=== PATIENT | female | born 1965 | race Caucasian/White ===

== ENCOUNTER 2019-12-09 07:57 | Outpatient (CLI) | payer OTHER, SELFPAY ==
[2019-12-09 08:52] LABS: Alanine Aminotransferase 34 U/L (4-35); Alkaline Phosphatase 70 U/L (38-126); Aspartate Amino Transferase 36 U/L (14-36); Bilirubin,Total 0.5 mg/dL (0.2-1.3); Cholesterol 152 mg/dL (0-200); HDL Direct 66 mg/dL; Triglycerides 77 mg/dL (<150)
[2019-12-09 09:02] LABS: LDL Cholesterol Direct 70 mg/dL
== END 2019-12-09 07:58 | disposition home or self-care (01) ==
PROVIDERS: PCP Physician Assistant; Visit Provider Physician Assistant
DX: E78.5 Hyperlipidemia, unspecified (principal)
CPT/HCPCS: 36415; 80061; 80076

== ENCOUNTER 2019-12-18 15:46 | Outpatient (CLI) | payer OTHER, SELFPAY ==
--- NOTE | ~2019-12-18 | MR_ITS ---
EXAMINATION: MR knee RT wo con DATE: 12/18/2019 17:04 INDICATION: Right knee pain. TECHNIQUE: Magnetic resonance imaging (MRI) of the right knee was performed without intravenous contr ast. Sequences included coronal PD-weighted FSE, coronal PD-weighted FS FSE, sagittal T2-weighted FS E, sagittal PD-weighted FS FSE and axial PD weighted fat saturated FSE. COMPARISON: None. FINDINGS: Evaluation mildly limited by motion artifact or blurring on multiple sequences. Medial compartment: Longitudinal horizontal tear extending to the superior articular surface of the posterior horn of the medial meniscus. Articular cartilage is normal. Lateral compartment: Lateral meniscus is normal. Small region of chondral swelling and partial-thickness fissuring at the posteromedial aspect of the lateral tibial plateau. Patellofemoral compartment: Condyle thickness is relatively preserved. There is partial thickness chondral fissuring with a few t iny foci of underlying subarticular edema along the inferior half of the medial and lateral patellar facets and at the caudal aspect of the medial trochlea. Ligaments and tendons: Anterior and posterior cruciate ligaments are normal. The medial collateral ligament and fibular petr ateral ligament complex are normal. The extensor mechanism is normal. The visualized medial and later al hamstring tendons as well as the iliotibial band are normal. Fluid: Small knee joint effusion with moderate synovitis at the suprapatellar pouch. No loose osteochondral bodies identified. Large Duke's cyst which measures 10.1 x 6.5 x 3.4 cm. Osseous/other: Bone alignment is normal. No fracture or other pathologic marrow replacing process. Intraosseous gang lion cyst at the posterior aspect of the lateral tibial plateau which appears to arise at the capsula r insertion with additional small multilobulated extraosseous ganglion cyst along the superficial mar gin of the capsule. IMPRESSION: 1. Horizontal longitudinal tear of the posterior horn of the medial meniscus. 2. Mild patellofemoral and lateral compartment osteoarthritis with regions of moderate grade chondrom alacia at the lateral tibial plateau and moderate to high-grade chondromalacia at the patellofemoral compartment. 3. Small knee joint effusion with moderate synovitis at the suprapatellar pouch. 4. Large Duke's cyst. Reviewed, dictated and finalized at location A. GER PMO IMPRESSION: 1. Horizontal longitudinal tear of the posterior horn of the medial meniscus. 2. Mild patellofemoral and lateral compartment osteoarthritis with regions of m oderate grade chondromalacia at the lateral tibial plateau and moderate to high -grade chondromalacia at the patellofemoral compartment. 3. Small knee joint effusion with moderate synovitis at the suprapatellar pouch . 4. Large Duke's cyst.
== END 2019-12-18 15:47 | disposition home or self-care (01) ==
PROVIDERS: PCP Physician Assistant; Visit Provider Orthopaedic Surgery
DX: M25.561 Pain in right knee (principal); S83.241A Other tear of medial meniscus, current injury, right knee, initial encounter; M17.11 Unilateral primary osteoarthritis, right knee; M94.261 Chondromalacia, right knee; M25.461 Effusion, right knee; M65.861 Other synovitis and tenosynovitis, right lower leg; M71.21 Synovial cyst of popliteal space [Baker], right knee
CPT/HCPCS: 73721

== ENCOUNTER 2020-02-21 14:22 | Outpatient (CLI) | payer OTHER, SELFPAY ==
--- NOTE | 2020-02-21 | ECHO_ITS ---
Patient Info Name: Fabiola Gibson Age: 54 years : 1965 Gender: Female Ht: 64 in Wt: 158 lbs BSA: 1.82 m2 HR: 58 bpm BP: 128 / 78 mmHg Heart Rhythm: Sinus Rhythm Technical Quality: Good Exam Date: 02/21/2020 3:17 PM Exam Location: [facility] Patient Status: Outpatient Admit Date: 02/21/2020 Staff Ordering Physician: Rowdy Marroquin MD Devil Tender: Fiorella Ayers RDCS Attending Provider: Rowdy Marroquin MD Referring Physician: Sebastien Martinez ; Exam Type: CA echo doppler color flow Study Info Indications - HTN LBBB Complete two-dimensional, color flow and Doppler transthoracic echocardiogram is performed. Summary 1. Left ventricular systolic function is normal, estimated at 60-65%. 2. There is no increased left ventricular wall thickness. 3. Left ventricular septal wall motion is abnormal with septal motion related to bundle branch block. 4. The left ventricular diastolic function is grade II diastolic dysfunction. 5. There is mild aortic valve sclerosis. 6. There is no aortic valve stenosis with a peak velocity of 188 cm/s, mean gradient of 9 mmHg, and aortic valve area of 2.2 cm2. 7. There is trace aortic valve regurgitation. 8. 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 Clinical correlation advised. Left Ventricle Left ventricular chamber dimension is normal. Left ventricular systolic function is normal, estimated at 60-65%. There is no increased left ventricular wall thickness. Left ventricular septal wall motion is abnormal with septal motion related to bundle branch block. The left ventricular diastolic function is grade II diastolic dysfunction. Right Ventricle Right ventricular chamber dimension is normal. Right ventricular systolic function is normal. Left Atria Left atrial chamber dimension is mildly enlarged. Right Atria Right atrial chamber dimension is mildly enlarged. Aortic Valve The aortic valve is trileaflet. There is mild aortic valve sclerosis. There is no aortic valve stenosis with a peak velocity of 188 cm/s, mean gradient of 9 mmHg, and aortic valve area of 2.2 cm2. There is trace aortic valve regurgitation. 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 Clinical correlation advised. Pulmonic Valve The pulmonic valve is not well visualized. There is trace pulmonic regurgitation. Mitral Valve The mitral valve has thickened leaflets. There is mild mitral valve regurgitation. Tricuspid Valve The tricuspid valve leaflets are normal. There is mild tricuspid valve regurgitation. Pericardium/Pleural The pericardium appears normal. There is no pericardial effusion. Inferior Vena Cava Normal inferior vena cava with >50% collapse upon inspiration consistent with normal right atrial pressure, 5 mmHg. Aorta The aortic root size at the sinus of Valsalva is normal. Left Ventricular Outflow Tract Name Value Normal LVOT 2D LVOT Diameter 2.0 cm
[2020-02-21 15:26] LABS: Basophils Percent Auto 0.7 % (0.2-1.2); Eosinophils Absolute Auto 0.2 K/mm3 (0-0.3); Eosinophils Percent Auto 3.2 % (0-4.4); Hemoglobin 11.9 g/dL (12.0-15.0); Immature Granulocyte Absolute 0.03 K/mm3 (0.00-0.031); Immature Granulocyte Percent A 0.6 % (0-0.5); Lymphocytes Absolute Auto 2.07 K/mm3 (0.9-3.2); Lymphocytes Percent Auto 38.5 % (18.3-44.2); Mean Corpuscular HGB Conc 33.1 g/dl (32-36); Mean Corpuscular Hemoglobin 29.6 pg (26-34); Mean Corpuscular Volume 89.6 fl (80-100); Mean Platelet Volume 9.6 fl (7.4-10.4); Monocytes Absolute Auto 0.3 K/mm3 (0.1-0.6); Monocytes Percent Auto 5.8 % (2.6-8.5); Neutrophils Absolute Auto 2.8 K/mm3 (1.3-6.7); Neutrophils Percent Auto 51.2 % (45.5-73.1); Platelet Count Result 289 k/mm3 (150-375); Red Blood Count 4.02 M/mm3 (4.2-5.4); Red Cell Distribution Width 12.1 % (11.5-14.5); White Blood Count 5.4 K/mm3 (4.5-10.0)
[2020-02-24 11:25] LABS: Gastrin <15 pg/mL (<=100)
[2020-02-27 15:37] LABS: Chromogranin A 49 ng/mL (25-140)
== END 2020-02-21 14:23 | disposition home or self-care (01) ==
PROVIDERS: Internal Medicine Medical Oncology; Visit Provider Internal Medicine Cardiovascular Disease
DX: I10 Essential (primary) hypertension (principal); I44.7 Left bundle-branch block, unspecified; R93.1 Abnormal findings on diagnostic imaging of heart and coronary circulation
CPT/HCPCS: 36415; 82941; 85025; 86316; 93306

== ENCOUNTER 2020-03-06 15:02 | Outpatient (CLI) | payer OTHER, SELFPAY ==
--- NOTE | ~2020-03-06 | CT_ITS ---
EXAMINATION: CT chest w con DATE: 03/06/2020 15:55 INDICATION: Malignant carcinoid tumor of the stomach TECHNIQUE: Transaxial computed tomographic images of the chest were obtained after the administration of 75 cc of Omnipaque 350 intravenous contrast. The dose-length product (DLP) was 126.13 mGy-cm. Ite rative reconstruction was used. COMPARISON: 01/05/2019 FINDINGS: There are stable right lung nodules measuring up to 4 mm. There is mild dependent atelectas is. No focal airspace opacity is identified. There is no pleural effusion or pneumothorax. No patholo gically enlarged thoracic lymph nodes are identified. The heart size is normal. There is mild thoraci c spondylosis. There are changes of interval antrectomy in the stomach. IMPRESSION: 1. No evidence of metastatic disease in the chest. Reviewed, dictated and finalized at location A.
[2020-03-06 15:48] LABS: Estimated Glomerular Filt Rate > 60
== END 2020-03-06 15:03 | disposition home or self-care (01) ==
PROVIDERS: Visit Provider Physician Assistant
DX: R91.8 Other nonspecific abnormal finding of lung field (principal)
CPT/HCPCS: 36415; 71260; Q9967

== ENCOUNTER 2020-03-18 16:14 | Outpatient (CLI) | payer OTHER, SELFPAY ==
[2020-03-18 16:58] LABS: Basophils Percent Auto 0.8 % (0.2-1.2); Eosinophils Absolute Auto 0.3 K/mm3 (0-0.3); Hematocrit 35.8 % (37.0-47.0); Immature Granulocyte Absolute 0.01 K/mm3 (0.00-0.031); Immature Granulocyte Percent A 0.3 % (0-0.5); Lymphocytes Absolute Auto 1.13 K/mm3 (0.9-3.2); Lymphocytes Percent Auto 30.6 % (18.3-44.2); Mean Corpuscular HGB Conc 33.5 g/dl (32-36); Mean Corpuscular Hemoglobin 29.9 pg (26-34); Mean Corpuscular Volume 89.1 fl (80-100); Mean Platelet Volume 9.6 fl (7.4-10.4); Monocytes Absolute Auto 0.3 K/mm3 (0.1-0.6); Monocytes Percent Auto 8.7 % (2.6-8.5); Neutrophils Absolute Auto 1.9 K/mm3 (1.3-6.7); Neutrophils Percent Auto 52.6 % (45.5-73.1); Platelet Count Result 236 k/mm3 (150-375); Red Blood Count 4.02 M/mm3 (4.2-5.4); White Blood Count 3.7 K/mm3 (4.5-10.0)
[2020-03-18 17:01] LABS: Add Urine Microscopic? NO; Appearance Urine Clear (Clear); Bilirubin Urine Negative (Negative); Blood Urine Negative (Negative); Color Urine Yellow (Yellow); Glucose Urine UA Negative (Negative); Ketones Urine Negative (Negative); Leukocyte Esterase Ur Negative LEU/UL (Negative); Nitrate Urine Negative (Negative); Protein Urine Negative (Negative); Specific Grav Ur 1.026 (1.001-1.035); Urobilinogen Urine Negative mg/dL (<2.0)
[2020-03-18 17:11] LABS: Alanine Aminotransferase 33 U/L (4-35); Albumin Level 4.1 g/dL (3.5-5.1); Alkaline Phosphatase 79 U/L (38-126); Aspartate Amino Transferase 37 U/L (14-36); Bilirubin,Total 0.2 mg/dL (0.2-1.3); Blood Urea Nitrogen 16 mg/dL (7-17); CRP < 0.5 mg/dL (<1.0); Calcium 8.9 mg/dL (8.4-10.2); Carbon Dioxide 26 mmol/L (22-30); Chloride 103 mmol/L (98-107); Estimated Glomerular Filt Rate > 60; Glucose 88 mg/dL (65-105); Sodium 136 mmol/L (137-145)
[2020-03-18 17:22] LABS: Erythrocyte Sedimentation Rate 20 mm/hr (0-20)
== END 2020-03-18 16:15 | disposition home or self-care (01) ==
PROVIDERS: Visit Provider Internal Medicine
DX: M15.4 Erosive (osteo)arthritis (principal); E55.9 Vitamin D deficiency, unspecified; M06.00 Rheumatoid arthritis without rheumatoid factor, unspecified site; D3A.092 Benign carcinoid tumor of the stomach; M25.40 Effusion, unspecified joint; Z51.81 Encounter for therapeutic drug level monitoring
CPT/HCPCS: 36415; 80053; 81003; 85025; 85652; 86140

== ENCOUNTER 2020-04-16 00:06 | Outpatient (CLI) | payer OTHER, SELFPAY ==
[2020-04-16 19:45] LABS: SARS-CoV-2 RNA PCR Negative
== END 2020-04-16 00:07 | disposition home or self-care (01) ==
LOC: ANHCOVIDDT 00:06
PROVIDERS: Visit Provider Internal Medicine Gastroenterology
DX: Z01.818 Encounter for other preprocedural examination (principal); Z11.59 Encounter for screening for other viral diseases; Z08 Encounter for follow-up examination after completed treatment for malignant neoplasm
CPT/HCPCS: 87635; C9803; U0003

== ENCOUNTER 2020-04-18 02:22 | Day surgery (SDC) | payer OTHER, SELFPAY ==
[2020-04-11 12:05] VITALS: BMI 27.2
[2020-04-18 08:30] VITALS: BP 109/63; PULSE 51; RESP 18; TEMP 36.1; O2SAT 100
--- NOTE | 2020-04-18 08:51 | PM.IMHP ---
H&P: HPI History of Present Illness Chief complaint: Stomach Tumor Narrative: Reason for visit EGD. This very pleasant lady's here at the request of her primary an Oncology. Impression: Gastric carcinoid status post gastrectomy. Pancreatic lesion. Per past medical history. Recommendation: EGD. History: Very pleasant lady's here for surveillance. The patient has a history of gastric carcinoids. She is status post resection. A pancreatic lesion was noted. She receiving injections to shrink the pancreatic tumor. The GI review systems is negative. Physical examination: General: very pleasant patient in no acute distress. HEENT: Head was normocephalic sclerae is clear mouth without masses neck was supple. Heart: Rate rhythm regular without S3 or S4. Lungs: CTA. Abdomen: Soft with no guarding or rigidity. Bowel sounds were active. Neurologic: Cranial nerves 2 through 12 intact. No focal defects. No clonus. Musculoskeletal system: Revealed no joint tenderness or swelling no muscle atrophy. Extremities: Reveal no significant edema. Skin: Warm and dry with normal turgor. Mental status: intact. Patient is alert and oriented. Review of Systems Review of Systems: All systems reviewed & are unremarkable except as noted in HPI and below PMFSH Past Medical History Medical History (Updated 04/18/20 @ 08:49 by Guru Winters DO) Anemia Anxiety and depression Carcinoid tumor of stomach HLD (hyperlipidemia) HTN (hypertension) Synovial cyst of popliteal space [Duke], right knee Surgical History Surgical History (Updated 04/18/20 @ 08:51 by Guru Winters DO) H/O colonoscopy History of esophagogastroduodenoscopy (EGD) History of esophagogastroduodenoscopy (EGD) History of gastric surgery Social History Social History (Updated 12/13/19 @ 10:41 by Debby Maynard MA) Years smoked: 20 Smoking status: Former smoker Tobacco type: cigarettes Alcohol intake: current Drinks per week: 3 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 [employer] Gender identity (if verbalized by the patient): Female Meds Home Medications and Allergies Home Medications Medication Instructions Recorded Confirmed Type pravastatin 40 mg tablet 40 mg PO DAILY 12/11/19 04/18/20 History bupropion HCl 150 mg tablet,12 hr 150 mg PO DAILY 12/13/19 04/18/20 History sustained-release escitalopram oxalate 10 mg tablet 10 mg PO DAILY 12/13/19 04/18/20 History hydroxychloroquine 200 mg tablet 200 mg PO DAILY 12/13/19 04/18/20 History cholecalciferol (vitamin D3) 2,000 unit PO DAILY 04/11/20 04/18/20 History [Vitamin D3] omeprazole 20 mg PO DAILY 04/11/20 04/18/20 History valsartan-hydrochlorothiazide 160 mg PO DAILY 04/11/20 04/18/20 History Allergies Allergy/AdvReac Type Severity Reaction Status Date / Time No Known Allergies Allergy Mild Verified 04/18/20 08:29 Vital Signs Vital Signs - 24 hr 04/18/20 08:30 Temperature 36.1 C L Pulse Rate 51 L Respiratory Rate 18 Blood Pressure 109/63 Pulse Oximetry 100
[2020-04-18] MEDS: LACTATED RINGERS 1,000 ML 150 ML IV CONT (08:52)
--- NOTE | 2020-04-18 08:52 | P.PNAN_ITS ---
Anes - Initial Pre Proc Eval Procedure: Operation Date: 04/18/20 09:00 Proposed Procedures p Esophagogastroduodenoscopy - Guru Winters DO Date/Time: 04/18/20 08:52 Surgeon: Guru Winters DO Pre Op Diagnosis: Stomach Tumor Patient Data Age: 54 Gender: F Height: 1.63 m Weight: 71.6 kg Last Vital Signs Temp 36.1 C L 04/18/20 08:30 Pulse 51 L 04/18/20 08:30 Resp 18 04/18/20 08:30 BP 109/63 04/18/20 08:30 Pulse Ox 100 04/18/20 08:30 Allergies Allergy/AdvReac Type Severity Reaction Status Date / Time No Known Allergies Allergy Mild Verified 04/18/20 08:29 Home Medications Medication Instructions Recorded Confirmed Type pravastatin 40 mg tablet 40 mg PO DAILY 12/11/19 04/18/20 History bupropion HCl 150 mg tablet,12 hr 150 mg PO DAILY 12/13/19 04/18/20 History sustained-release escitalopram oxalate 10 mg tablet 10 mg PO DAILY 12/13/19 04/18/20 History hydroxychloroquine 200 mg tablet 200 mg PO DAILY 12/13/19 04/18/20 History cholecalciferol (vitamin D3) 2,000 unit PO DAILY 04/11/20 04/18/20 History [Vitamin D3] omeprazole 20 mg PO DAILY 04/11/20 04/18/20 History valsartan-hydrochlorothiazide 160 mg PO DAILY 04/11/20 04/18/20 History Patient hx anesthesia problems: none Family hx anesthesia problems: none [facility] Past Medical History Medical History (Updated 04/18/20 @ 08:49 by Guru Winters DO) Anemia Anxiety and depression Carcinoid tumor of stomach HLD (hyperlipidemia) HTN (hypertension) Synovial cyst of popliteal space [Duke], right knee Surgical History Surgical History (Updated 04/18/20 @ 08:51 by Guru Winters DO) H/O colonoscopy History of esophagogastroduodenoscopy (EGD) History of esophagogastroduodenoscopy (EGD) History of gastric surgery Social History Social History (Updated 12/13/19 @ 10:41 by Debby Maynard MA) Years smoked: 20 Smoking status: Former smoker Tobacco type: cigarettes Alcohol intake: current Drinks per week: 3 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 Questions were solicited and answers provided to the satisfaction of the patient/family/POA.
[2020-04-18 10:03] VITALS: BP 95/55; PULSE 52; RESP 16; O2SAT 100
[2020-04-18 10:13] VITALS: BP 113/67; PULSE 50; RESP 18; O2SAT 100
[2020-04-18 10:23] VITALS: BP 112/66; PULSE 50; RESP 18; O2SAT 100
== END 2020-04-18 10:48 | disposition home or self-care (01) ==
PROVIDERS: PCP Physician Assistant; Visit Provider Internal Medicine Gastroenterology
PROC: 0DJ08ZZ Inspection of Upper Intestinal Tract, Via Natural or Artificial Opening Endoscopic (ICD-10-PCS; CPT 43235; principal; 2020-04-18 09:00)
DX: Z08 Encounter for follow-up examination after completed treatment for malignant neoplasm (principal); K31.89 Other diseases of stomach and duodenum; Z90.3 Acquired absence of stomach [part of]; Z98.0 Intestinal bypass and anastomosis status; Z85.020 Personal history of malignant carcinoid tumor of stomach; K86.9 Disease of pancreas, unspecified; I10 Essential (primary) hypertension; E78.5 Hyperlipidemia, unspecified; F41.8 Other specified anxiety disorders; Z87.891 Personal history of nicotine dependence
CPT/HCPCS: 43239; 87081; 88305; J2704; J7120

== ENCOUNTER 2020-06-11 10:21 | Outpatient (CLI) | payer OTHER, SELFPAY ==
[2020-06-11 11:31] LABS: Thyroid Stimulating Hormone 0.747 uIU/mL (0.465-4.680)
== END 2020-06-11 10:22 | disposition home or self-care (01) ==
LOC: ANHLAB 10:22
PROVIDERS: PCP Physician Assistant; Visit Provider Physician Assistant
DX: R53.83 Other fatigue (principal)
CPT/HCPCS: 36415; 84443

== ENCOUNTER 2020-09-14 01:08 | Outpatient (CLI) | payer OTHER, MEDICAID, SELFPAY ==
[2020-09-14 18:31] LABS: SARS-CoV-2 RNA PCR Positive
== END 2020-09-14 01:09 | disposition home or self-care (01) ==
LOC: ANHCOVIDDT 01:08
PROVIDERS: PCP Physician Assistant; Visit Provider Internal Medicine Gastroenterology
DX: U07.1 COVID-19 (principal)
CPT/HCPCS: 87635; C9803; U0003

== ENCOUNTER 2020-09-28 00:52 | Outpatient (CLI) | payer OTHER, MEDICAID, SELFPAY ==
[2020-09-28 20:15] LABS: SARS-CoV-2 RNA PCR Negative
== END 2020-09-28 00:53 | disposition home or self-care (01) ==
LOC: ANHCOVIDDT 00:53
PROVIDERS: PCP Physician Assistant; Visit Provider Internal Medicine Gastroenterology
DX: Z01.818 Encounter for other preprocedural examination (principal); Z20.828 Contact with and (suspected) exposure to other viral communicable diseases
CPT/HCPCS: 87635; C9803; U0003

== ENCOUNTER 2020-10-02 00:17 | Day surgery (SDC) | payer OTHER, MEDICAID, SELFPAY ==
[2020-09-09 14:00] VITALS: BMI 25.7
[2020-10-02 11:48] VITALS: BP 125/70; PULSE 57; RESP 16; TEMP 36.2; O2SAT 100
[2020-10-02] MEDS: LACTATED RINGERS 1,000 ML 150 ML IV CONT (11:51)
--- NOTE | 2020-10-02 12:04 | WPDANESEPPF ---
Anes - Initial Pre Proc Eval Procedure: Operation Date: 10/02/20 13:00 Proposed Procedures p Esophagogastroduodenoscopy - Guru Winters DO Date/Time: 10/02/20 12:04 Surgeon: Guru Winters DO Pre Op Diagnosis: CA tumor of stomach Patient Data Age: 55 Gender: F Height: 5 ft 4 in Weight: 64.9 kg Last Vital Signs Temp 97.2 F L 10/02/20 11:48 Pulse 57 L 10/02/20 11:48 Resp 16 10/02/20 11:48 BP 125/70 10/02/20 11:48 Pulse Ox 100 10/02/20 11:48 Allergies Allergy/AdvReac Type Severity Reaction Status Date / Time No Known Allergies Allergy Mild Verified 10/02/20 11:46 Home Medications Medication Instructions Recorded Confirmed Type pravastatin 40 mg tablet 40 mg PO DAILY 12/11/19 09/09/20 History bupropion HCl 150 mg tablet,12 hr 150 mg PO DAILY 12/13/19 09/09/20 History sustained-release escitalopram oxalate 10 mg tablet 10 mg PO DAILY 12/13/19 09/09/20 History hydroxychloroquine 200 mg tablet 200 mg PO DAILY 12/13/19 09/09/20 History cholecalciferol (vitamin D3) 2,000 unit PO DAILY 04/11/20 09/09/20 History [Vitamin D3] omeprazole 20 mg PO DAILY 04/11/20 09/27/20 History valsartan-hydrochlorothiazide 1 tablet PO DAILY 09/09/20 09/09/20 History Patient hx anesthesia problems: none Family hx anesthesia problems: none [facility] Past Medical History Medical History (Updated 04/18/20 @ 08:49 by Guru Winters DO) Anemia Anxiety and depression Carcinoid tumor of stomach HLD (hyperlipidemia) HTN (hypertension) Synovial cyst of popliteal space [Duke], right knee Surgical History Surgical History (Updated 04/18/20 @ 08:51 by Guru Winters DO) H/O colonoscopy History of esophagogastroduodenoscopy (EGD) History of esophagogastroduodenoscopy (EGD) History of gastric surgery Family History Family History Father Hypertension Family history of heart disease in male family member before age 55 Mother Hypertension Family history of diabetes mellitus in first degree relative Family history of heart disease in male family member before age 55 Sibling Family history of heart disease in male family member before age 55 Social History Social History (Updated 12/13/19 @ 10:41 by Debby Maynard MA) Years smoked: 20 Smoking status: Former smoker Tobacco type: cigarettes Alcohol intake: current Drinks per week: 3 Substance use: never Substance use type: does not use 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 Gender identity (if verbalized by the patient): Female Spiritual care concerns: No Anes - Eval Final PreProcedure Day of Procedure 10/02/20 12:04 Patient weight: normal Heart: regular rate and rhythm Lungs: clear to auscultation Airway: Mallampati scale class III Neurological: alert and oriented Last oral intake: >/= 8 hours ASA classification: III Emergent: no Anesthetic plan: proceed Anesthesia type and monitoring: general GIVS and standard monitoring Informed Consent: The patient's anesthetic plan and its attendant risks and benefits were discussed with the patient/family/POA. Questions were solicited and answers provided to the satisfaction of the patient/family/POA.
--- NOTE | 2020-10-02 12:43 | WPDHPUPDATE1 ---
History and Physical Update Update Date/Time: 10/02/20 12:43 History and Physical has been reviewed, including an updated exam of the patient. There are NO changes in the patient's condition. Risks, benefits, and alternatives have been discussed and questions answered. Patient agrees to proceed with procedure.
--- NOTE | 2020-10-02 12:43 | PM.IMHP ---
H&P: HPI History of Present Illness Date/Time: 10/02/20 12:43 Cheif Complaint: See below. Narrative: reason for visit is EGD. This very pleasant lady is here at the request the primary physician. The patient examined and chart was reviewed. Impression: He with very pleasant lady with gastric carcinoid. 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 She is here for endoscopic evaluation for surveillance. The patient does have some episodes of periodic diarrhea. This may be secondary to medication. I am not convinced is due to any carcinoid syndrome. Do not have a copy of any recent CT the abdomen pelvis. No documented liver metastasis is noted. HTN. HLD. Depression. Recommendation: Will proceed with EGD. Will consider repeating colonoscopy after the holidays pending the results of the EGD. History: This very pleasant lady's well known to myself. She has a history of gastric carcinoid. She also has undergone partial gastrectomy. Patient is here for surveillance. She has had a documented carcinoid tumor of the pancreas. She does report occasional diarrhea. Diarrhea may or may not have been related to her medication. GI review systems otherwise unremarkable. Physical examination: General: very pleasant patient in no acute distress. HEENT: Head was normocephalic sclerae is clear mouth without masses neck was supple. Heart: Rate rhythm regular without S3 or S4. Lungs: CTA. Abdomen: Soft with no guarding or rigidity. Bowel sounds were active. Neurologic: Cranial nerves 2 through 12 intact. No focal defects. No clonus. Musculoskeletal system: Revealed no joint tenderness or swelling no muscle atrophy. Extremities: Reveal no significant edema. Skin: Warm and dry with normal turgor. Mental status: intact. Patient is alert and oriented. Review of Systems Review of Systems: All systems reviewed & are unremarkable except as noted in HPI and below PMFSH Past Medical History Medical History (Updated 04/18/20 @ 08:49 by Guru Winters DO) Anemia Anxiety and depression Carcinoid tumor of stomach HLD (hyperlipidemia) HTN (hypertension) Synovial cyst of popliteal space [Duke], right knee Surgical History Surgical History (Updated 04/18/20 @ 08:51 by Guru Winters DO) H/O colonoscopy History of esophagogastroduodenoscopy (EGD) History of esophagogastroduodenoscopy (EGD) History of gastric surgery Family History Family History Father Hypertension Family history of heart disease in male family member before age 55 Mother Hypertension Family history of diabetes mellitus in first degree relative Family history of heart disease in male family member before age 55 Sibling Family history of heart disease in male family member before age 55 Social History Social History (Updated 12/13/19 @ 10:41 by Debby Maynard MA) Years smoked: 20 Smoking status: Former smoker Tobacco type: cigarettes Alcohol intake: current Drinks per week: 3 Substance use: never Substance use type: does not use 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 [employer] Gender identity (if verbalized by the patient): Female Spiritual care concerns: No Meds Home Medications and Allergies Home Medications Medication Instructions Recorded Confirmed Type pravastatin 40 mg tablet 40 mg PO DAILY 12/11/19 09/09/20 History bupropion HCl 150 mg tablet,12 hr 150 mg PO DAILY 12/13/19 09/09/20 History sustained-release escitalopram oxalate 10 mg tablet 10 mg PO DAILY 12/13/19 09/09/20 History hydroxychloroquine 200 mg tablet 200 mg PO DAILY 12/13/19 09/09/20 History cholecalciferol (vitamin D3) 2,000 unit PO DAILY 04/11/20 09/09/20 History [Vitamin D3] omeprazole 20 mg PO DAILY 04/11/20 09/27/20 History valsartan-hydrochlorothiazide 1 tablet PO DAILY 09/09/20 09/09/20 History Allergies
[2020-10-02 13:48] VITALS: BP 99/63; PULSE 47; RESP 17; O2SAT 99
[2020-10-02 13:58] VITALS: BP 110/66; PULSE 45; RESP 17; O2SAT 99
[2020-10-02 14:08] VITALS: BP 116/71; PULSE 51; RESP 14; O2SAT 98
== END 2020-10-02 14:26 | disposition home or self-care (01) ==
PROVIDERS: PCP Physician Assistant; Visit Provider Internal Medicine Gastroenterology
PROC: 0DJ08ZZ Inspection of Upper Intestinal Tract, Via Natural or Artificial Opening Endoscopic (ICD-10-PCS; CPT 43235; principal; 2020-10-02 13:00)
DX: Z85.020 Personal history of malignant carcinoid tumor of stomach (principal); K29.50 Unspecified chronic gastritis without bleeding; Z98.0 Intestinal bypass and anastomosis status; Z90.3 Acquired absence of stomach [part of]; D64.9 Anemia, unspecified; F41.8 Other specified anxiety disorders; E78.5 Hyperlipidemia, unspecified; I10 Essential (primary) hypertension; M71.21 Synovial cyst of popliteal space [Baker], right knee; Z87.891 Personal history of nicotine dependence
CPT/HCPCS: 43239; 87081; 88305; 88342; J2704; J7120

== ENCOUNTER 2020-11-13 11:33 | Outpatient (CLI) | payer OTHER, MEDICAID, SELFPAY ==
--- NOTE | ~2020-11-13 | MM_ITS ---
EXAMINATION: MM screening esdras BI w eugene HISTORY: Screening TECHNIQUE: Craniocaudal and mediolateral oblique 3-D tomosynthesis images were obtained and synthetic 2-D images were generated. CAD analysis was submitted and interpreted. COMPARISON: No prior mammogram is available for comparison at this institution. BREAST PARENCHYMAL COMPOSITION: Comparison to multiple prior studies sequentially, with oldest review ed study dated 12/11/2013. FINDINGS: There is no evidence of suspicious mass, calcification, or architectural distortion to sugg est malignancy in either breast. There has been no suspicious interval change. IMPRESSION: 1. No mammographic evidence of malignancy. 2. Recommend routine screening mammography in one year. BI-RADS Category 1: Negative Reviewed, dictated and finalized at location A. [employer] TESTER
== END 2020-11-13 11:34 | disposition home or self-care (01) ==
LOC: ANHIMG 11:36
PROVIDERS: Family Provider Internal Medicine; PCP Physician Assistant; Visit Provider Obstetrics & Gynecology
DX: Z12.31 Encounter for screening mammogram for malignant neoplasm of breast (principal)
CPT/HCPCS: 77063; 77067

== ENCOUNTER → 2020-12-06 02:16 | Outpatient (CLI) | payer OTHER, MEDICAID, SELFPAY ==
[2020-12-06 21:58] LABS: SARS-CoV-2 RNA PCR Negative
== END ==
PROVIDERS: PCP Physician Assistant; Visit Provider Internal Medicine Gastroenterology
DX: Z01.812 Encounter for preprocedural laboratory examination (principal); Z20.822 Contact with and (suspected) exposure to COVID-19
CPT/HCPCS: C9803; U0003; U0005

== ENCOUNTER 2020-12-09 00:29 | Day surgery (SDC) | payer OTHER, MEDICAID, SELFPAY ==
[2020-11-08 14:07] VITALS: BMI 24.5
--- NOTE | 2020-12-06 09:37 | P.PNAN_ITS ---
Anes - Initial Pre Proc Eval Procedure: Operation Date: 12/09/20 11:30 Proposed Procedures p Screening Colonoscopy - Guru Winters DO Date/Time: 12/06/20 09:37 Surgeon: Guru Winters DO Pre Op Diagnosis: Neoplasm Screening Patient Data Age: 55 Gender: F Height: 1.63 m Weight: 64.9 kg Allergies Allergy/AdvReac Type Severity Reaction Status Date / Time No Known Allergies Allergy Mild Verified 12/09/20 10:08 Home Medications Medication Instructions Recorded Confirmed Type pravastatin 40 mg tablet 40 mg PO DAILY 12/11/19 11/08/20 History bupropion HCl 150 mg tablet,12 hr 150 mg PO DAILY 12/13/19 11/08/20 History sustained-release escitalopram oxalate 10 mg tablet 10 mg PO DAILY 12/13/19 11/08/20 History hydroxychloroquine 200 mg tablet 200 mg PO DAILY 12/13/19 11/08/20 History cholecalciferol (vitamin D3) 2,000 unit PO DAILY 04/11/20 11/08/20 History [Vitamin D3] omeprazole 20 mg PO DAILY 04/11/20 11/08/20 History valsartan-hydrochlorothiazide 1 tablet PO DAILY 09/09/20 11/08/20 History Patient hx anesthesia problems: none Family hx anesthesia problems: none PMFSH Past Medical History Medical History (Updated 04/18/20 @ 08:49 by Guru Winters DO) Anemia Anxiety and depression Carcinoid tumor of stomach HLD (hyperlipidemia) HTN (hypertension) Synovial cyst of popliteal space [Duke], right knee Surgical History Surgical History (Updated 12/06/20 @ 09:37 by Vlad Townsend DO) H/O colonoscopy History of esophagogastroduodenoscopy (EGD) History of esophagogastroduodenoscopy (EGD) History of gastric surgery History of tubal ligation Family History Family History Father Hypertension Family history of heart disease in male family member before age 55 Mother Hypertension Family history of diabetes mellitus in first degree relative Family history of heart disease in male family member before age 55 Sibling Family history of heart disease in male family member before age 55 Social History Social History (Updated 12/13/19 @ 10:41 by Debby Maynard MA) Years smoked: 20 Smoking status: Former smoker Tobacco type: cigarettes Alcohol intake: current Drinks per week: 3 Substance use: never Substance use type: does not use Living arrangements: with family 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[employer] Gender identity (if verbalized by the patient): Female Spiritual care concerns: No Anes - Eval Final PreProcedure Day of Procedure 12/06/20 09:37 Patient weight: normal Heart: regular rate and rhythm Lungs: clear to auscultation and normal air movement Airway: Mallampati scale class III Neurological: alert and oriented Last oral intake: >/= 8 hours ASA classification: III Emergent: no Anesthetic plan: proceed Anesthesia type and monitoring: general GIVS and standard monitoring Informed Consent: The patient's anesthetic plan and its attendant risks and benefits were discussed with the patient/family/POA. Questions were solicited and answers provided to the satisfaction of the patient/family/POA.
[2020-12-09 10:09] VITALS: BP 123/80; PULSE 63; RESP 16; TEMP 37.1; O2SAT 99
[2020-12-09] MEDS: LACTATED RINGERS 1,000 ML 150 ML IV CONT (10:23)
--- NOTE | 2020-12-09 11:37 | WPDGICN ---
GI Consult Note Consult date/time: 12/09/20 11:37 HPI: Reason consultation is colonoscopy. This very pleasant lady seen in consultation request the primary physician. Impression: Screening colonoscopy. 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 HLD. HTN. Anemia. Recommendation: Colonoscopy. History: This very pleasant lady has a history of gastric carcinoid. Status post gastrectomy. She is here for screening colonoscopy. She does have a tendency to a recurrent bouts of diarrhea. Hematochezia, melena acholic stools tonight. Physical examination: General: very pleasant patient in no acute distress. HEENT: Head was normocephalic sclerae is clear mouth without masses neck was supple. Heart: Rate rhythm regular without S3 or S4. Lungs: CTA. Abdomen: Soft with no guarding or rigidity. Bowel sounds were active. Neurologic: Cranial nerves 2 through 12 intact. No focal defects. No clonus. Musculoskeletal system: Revealed no joint tenderness or swelling no muscle atrophy. Extremities: Reveal no significant edema. Skin: Warm and dry with normal turgor. Mental status: intact. Patient is alert and oriented. Review of Systems Review of Systems: All systems reviewed & are unremarkable except as noted in HPI and below PMFSH Past Medical History Medical History (Updated 04/18/20 @ 08:49 by Guru Winters DO) Anemia Anxiety and depression Carcinoid tumor of stomach HLD (hyperlipidemia) HTN (hypertension) Synovial cyst of popliteal space [[facility]], right knee Surgical History Surgical History (Updated 12/06/20 @ 09:37 by Vlad Townsend DO) H/O colonoscopy History of esophagogastroduodenoscopy (EGD) History of esophagogastroduodenoscopy (EGD) History of gastric surgery History of tubal ligation Family History Family History Father Hypertension Family history of heart disease in male family member before age 55 Mother Hypertension Family history of diabetes mellitus in first degree relative Family history of heart disease in male family member before age 55 Sibling Family history of heart disease in male family member before age 55 Social History Social History (Updated 12/13/19 @ 10:41 by Debby Maynard MA) Years smoked: 20 Smoking status: Former smoker Tobacco type: cigarettes Alcohol intake: current Drinks per week: 3 Substance use: never Substance use type: does not use Living arrangements: with family 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 [employer] Gender identity (if verbalized by the patient): Female Spiritual care concerns: No Meds Home Medications and Allergies Home Medications Medication Instructions Recorded Confirmed Type pravastatin 40 mg tablet 40 mg PO DAILY 12/11/19 11/08/20 History bupropion HCl 150 mg tablet,12 hr 150 mg PO DAILY 12/13/19 11/08/20 History sustained-release escitalopram oxalate 10 mg tablet 10 mg PO DAILY 12/13/19 11/08/20 History hydroxychloroquine 200 mg tablet 200 mg PO DAILY 12/13/19 11/08/20 History cholecalciferol (vitamin D3) 2,000 unit PO DAILY 04/11/20 11/08/20 History [Vitamin D3] omeprazole 20 mg PO DAILY 04/11/20 11/08/20 History valsartan-hydrochlorothiazide 1 tablet PO DAILY 09/09/20 11/08/20 History Allergies Allergy/AdvReac Type Severity Reaction Status Date / Time No Known Allergies Allergy Mild Verified 12/09/20 10:08 Vital Signs Vital Signs - 24 hr 12/09/20 10:09 Temperature 37.1 C Pulse Rate 63 Respiratory Rate 16 Blood Pressure 123/80 Pulse Oximetry 99
[2020-12-09 11:58] VITALS: BP 81/39; PULSE 51; RESP 17; O2SAT 98
[2020-12-09 12:08] VITALS: BP 85/50; PULSE 49; RESP 21; O2SAT 99
[2020-12-09 12:18] VITALS: BP 95/58; PULSE 46; RESP 14; O2SAT 99
== END 2020-12-09 12:28 | disposition home or self-care (01) ==
PROVIDERS: PCP Physician Assistant; Visit Provider Internal Medicine Gastroenterology
PROC: 0DJD8ZZ Inspection of Lower Intestinal Tract, Via Natural or Artificial Opening Endoscopic (ICD-10-PCS; CPT 45378; principal; 2020-12-09 11:30)
DX: Z12.11 Encounter for screening for malignant neoplasm of colon (principal); D12.2 Benign neoplasm of ascending colon; I10 Essential (primary) hypertension; E78.5 Hyperlipidemia, unspecified; M71.21 Synovial cyst of popliteal space [Baker], right knee; F32.9 Major depressive disorder, single episode, unspecified; F41.9 Anxiety disorder, unspecified; Z85.020 Personal history of malignant carcinoid tumor of stomach; Z87.891 Personal history of nicotine dependence
CPT/HCPCS: 45385; 45380; 88305; J2704; J7120

== ENCOUNTER 2021-02-19 12:29 | Emergency (ER) | payer OTHER, MEDICAID, SELFPAY ==
[2021-02-19] VITALS (7 sets, daily range): BP systolic 108–138; BP diastolic 63–78; PULSE 54–72; RESP 10–18; TEMP 36.8; O2SAT 97–99
--- NOTE | ~2021-02-19 | XR_ITS ---
EXAMINATION: XR chest 1V EXAM DATE: 02/19/2021 13:06 INDICATION: dizziness TECHNIQUE: Portable AP frontal chest x-ray was obtained. Comparison is made to prior examination from 09/08/2017. FINDINGS: The lungs are clear. There are no pleural effusions. The cardiomediastinal silhouette is within normal limits. There is no pneumothorax suspected. Mild thoracolumbar dextrocurvature. IMPRESSION: No acute cardiopulmonary findings. Reviewed, dictated and finalized at location B.
--- NOTE | ~2021-02-19 | CT_ITS ---
EXAMINATION: CT brain wo con EXAM DATE: 02/19/2021 13:01 INDICATION: Dizziness. Kidney cancer. TECHNIQUE: Spiral CT of the head was performed without contrast. Axial, coronal and sagittal images were reviewed. The dose-length product (DLP) for this examination was 605.33 mGy-cm. The exposure w as tailored according to patient size, and iterative reconstruction (ASIR) was used as additional dos e reduction technique. There is no prior study for comparison. FINDINGS: There is no acute intraparenchymal hemorrhage. No evidence of intraparenchymal brain mass lesion. No evidence of acute infarction. There is no mass effect or midline shift. The ventricles are normal in size. There are no extra-axial collections. There are no acute calvarial fractures. T he orbits are unremarkable. Soft tissue is unremarkable. The visualized sinuses and mastoid air ralf ls are well aerated. IMPRESSION: 1. Unremarkable head CT examination. Reviewed, dictated and finalized at location B.
--- NOTE | 2021-02-19 12:39 | ECG_ITS ---
Measurements Intervals [place] Rate: 57 P: 46 MO: 156 QRS: 27 QRSD: 159 T: 72 QT: 475 QTc: 463 Interpretive Statements SINUS BRADYCARDIA LEFT BUNDLE BRANCH BLOCK BASELINE WANDER- III, AVL, AVF ABNORMAL ECG Electronically Signed On 02-19-2021 13:31:09 CDT by Jordan Plunkett D.O.
[2021-02-19 12:40] LABS: Glucose Point of Care 93 (65-105)
--- NOTE | 2021-02-19 12:46 | PC.NURSE ---
EDP Rodrigo at bedside.
--- NOTE | 2021-02-19 12:50 | ED.DIZZY ---
HPI - Dizziness General Chief Complaint: Syncope Stated Complaint: syncope Time Seen by Provider: 02/19/21 12:37 Source: RN notes reviewed History of Present Illness HPI Narrative: Patient presents to emergency department from home for nursing follow-up so. Patient states she was out today when she began to feel lightheaded with blurred vision. She states that she began to sweat she she is feeling this before and tried eating a piece of chocolate with minimal relief however the patient stating she feels better now since eating [employer]'s on the way here patient denies any fevers or chills chest pain shortness of breath or any other symptoms patient is currently being treated for pancreatic tumor with Sandostatin and is states she had a similar episode at her first injection and just had her second injection recently denies any other symptoms at this time Related Data Home Medications Medication Instructions Recorded Confirmed pravastatin 40 mg tablet 40 mg PO DAILY 12/11/19 11/08/20 bupropion HCl 150 mg tablet,12 hr 150 mg PO DAILY 12/13/19 11/08/20 sustained-release escitalopram oxalate 10 mg tablet 10 mg PO DAILY 12/13/19 11/08/20 hydroxychloroquine 200 mg tablet 200 mg PO DAILY 12/13/19 11/08/20 cholecalciferol (vitamin D3) 2,000 unit PO DAILY 04/11/20 11/08/20 [Vitamin D3] omeprazole 20 mg PO DAILY 04/11/20 11/08/20 valsartan-hydrochlorothiazide 1 tablet PO DAILY 09/09/20 11/08/20 Allergies Allergy/AdvReac Type Severity Reaction Status Date / Time No Known Allergies Allergy Mild Verified 12/09/20 10:08 Review of Systems Review of Systems: Narrative: Gen.: Denies fevers or chills Eyes: Denies eye pain or visual change ENT: Denies congestion Respiratory: Denies shortness of breath or cough CV: Reports near syncope denies chest pain GI: Denies abdominal pain nausea, emesis or diarrhea Musculoskeletal: Denies back pain or muscle pain Neuro: Denies numbness, tingling, weakness or focal weakness Skin: Denies rash Except as documented, all other systems reviewed and negative PMFSH Past Medical History Medical History Adenomatous colon polyp Anemia Anxiety and depression Carcinoid tumor of stomach HLD (hyperlipidemia) HTN (hypertension) Synovial cyst of popliteal space [[facility]], right knee Surgical History Surgical History (Updated 12/06/20 @ 09:37 by Vlad Townsend DO) H/O colonoscopy History of esophagogastroduodenoscopy (EGD) History of esophagogastroduodenoscopy (EGD) History of gastric surgery History of tubal ligation Family History Family History Father Hypertension Family history of heart disease in male family member before age 55 Mother Hypertension Family history of diabetes mellitus in first degree relative Family history of heart disease in male family member before age 55 Sibling Family history of heart disease in male family member before age 55 Social History Social History Years smoked: 20 Smoking status: Former smoker Tobacco type: cigarettes Alcohol intake: current Drinks per week: 3 Substance use: never Substance use type: does not use 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 CARDIOVASCULAR: Regular rate and rhythm without murmurs rubs or gallops. ABDOMINAL: Soft, nontender, nondistended, no rebound or guarding MUSCULOSKELETAl: Moves all extremities. No clubbing, cyanosis or edema. NEURO: Awake and alert x 4. Following comma
[2021-02-19 12:52] LABS: Basophils Absolute Auto 0.1 K/mm3 (0.0-0.1); Eosinophils Absolute Auto 0.2 K/mm3 (0-0.3); Hematocrit 35.5 % (37.0-47.0); Hemoglobin 11.9 g/dL (12.0-15.0); Immature Granulocyte Absolute 0.02 K/mm3 (0.00-0.031); Immature Granulocyte Percent A 0.4 % (0-0.5); Lymphocytes Absolute Auto 1.43 K/mm3 (0.9-3.2); Lymphocytes Percent Auto 28.5 % (18.3-44.2); Mean Corpuscular HGB Conc 33.5 g/dl (32-36); Mean Corpuscular Hemoglobin 29.8 pg (26-34); Mean Platelet Volume 9.8 fl (7.4-10.4); Monocytes Absolute Auto 0.3 K/mm3 (0.1-0.6); Monocytes Percent Auto 6.2 % (2.6-8.5); Neutrophils Absolute Auto 3.1 K/mm3 (1.3-6.7); Neutrophils Percent Auto 60.9 % (45.5-73.1); Platelet Count Result 229 k/mm3 (150-375); Red Blood Count 3.99 M/mm3 (4.2-5.4); Red Cell Distribution Width 11.9 % (11.5-14.5)
[2021-02-19 13:03] LABS: Anion Gap 8 mmol/L (8-16); Blood Urea Nitrogen 17 mg/dL (7-17); Calcium 9.6 mg/dL (8.4-10.2); Carbon Dioxide 31 mmol/L (22-30); Chloride 104 mmol/L (98-107); Estimated CRCL calculation 68 ml/min; Estimated Glomerular Filt Rate > 60; Glucose 107 mg/dL (65-105); Potassium 3.3 mmol/L (3.4-5.0); Sodium 143 mmol/L (137-145)
[2021-02-19] MEDS: SODIUM CHLORIDE 0.9% IV 1,000 ML 999 ML IV CONT (13:12)
[2021-02-19 13:41] LABS: Alanine Aminotransferase 59 U/L (4-35); Albumin Level 4.7 g/dL (3.5-5.1); Alkaline Phosphatase 64 U/L (38-126); Aspartate Amino Transferase 55 U/L (14-36); Bilirubin,Total 0.4 mg/dL (0.2-1.3); Lipase 173 U/L (23-300)
[2021-02-19 13:50] LABS: Troponin I < 0.012 ng/mL (0.000-0.034)
[2021-02-19 13:52] LABS: Add Urine Microscopic? YES; Appearance Urine Cloudy (Clear); Bilirubin Urine Negative (Negative); Blood Urine Negative (Negative); Color Urine Yellow (Yellow); Glucose Urine UA Negative (Negative); Ketones Urine Negative (Negative); Leukocyte Esterase Ur Trace LEU/UL (Negative); Mucus Urine Rare /lpf; Nitrate Urine Negative (Negative); Protein Urine Negative (Negative); RBC Urine 0-2 /hpf (0-2); Specific Grav Ur 1.015 (1.001-1.035); Squamous Epithelial Cell Urine Many /hpf (Few); Urobilinogen Urine Negative mg/dL (<2.0); WBC Urine 0-3 /hpf
[2021-02-19] MEDS: POTASSIUM CHLORIDE 20 MEQ TABLET PO (14:49)
--- NOTE | 2021-02-19 14:51 | PC.NURSE ---
pt reports that she got injection for 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 and NOT kidney
[2021-02-19 15:49] LABS: Glucose Point of Care 156 (65-105)
[2021-02-19 16:01] LABS: Troponin I < 0.012 ng/mL (0.000-0.034)
== END 2021-02-19 16:39 | disposition home or self-care (01) ==
PROVIDERS: Emergency Provider Emergency Medicine; PCP Physician Assistant
DX: R42 Dizziness and giddiness (principal); D49.0 Neoplasm of unspecified behavior of digestive system; E78.5 Hyperlipidemia, unspecified; I10 Essential (primary) hypertension; F41.9 Anxiety disorder, unspecified; F32.9 Major depressive disorder, single episode, unspecified; Z85.020 Personal history of malignant carcinoid tumor of stomach; Z87.891 Personal history of nicotine dependence; R00.1 Bradycardia, unspecified; I44.7 Left bundle-branch block, unspecified
CPT/HCPCS: 36415; 70450; 71045; 80048; 80076; 81001; 81025; 82948; 83690; 84484; 85025; 93005; 96360; 96361; 99284; A9270; J7030

== ENCOUNTER 2021-07-11 14:27 | Outpatient (CLI) | payer OTHER, MEDICAID, SELFPAY ==
[2021-07-11 15:01] LABS: Basophils Percent Auto 0.7 % (0.2-1.2); Eosinophils Absolute Auto 0.2 K/mm3 (0-0.3); Hematocrit 35.1 % (37.0-47.0); Hemoglobin 11.8 g/dL (12.0-15.0); Immature Granulocyte Absolute 0.02 K/mm3 (0.00-0.031); Immature Granulocyte Percent A 0.3 % (0-0.5); Lymphocytes Absolute Auto 1.55 K/mm3 (0.9-3.2); Lymphocytes Percent Auto 26.1 % (18.3-44.2); Mean Corpuscular HGB Conc 33.6 g/dl (32-36); Mean Corpuscular Hemoglobin 30.1 pg (26-34); Mean Corpuscular Volume 89.5 fl (80-100); Mean Platelet Volume 9.6 fl (7.4-10.4); Monocytes Absolute Auto 0.3 K/mm3 (0.1-0.6); Monocytes Percent Auto 5.7 % (2.6-8.5); Neutrophils Absolute Auto 3.8 K/mm3 (1.3-6.7); Neutrophils Percent Auto 64.2 % (45.5-73.1); Platelet Count Result 278 k/mm3 (150-375); Red Blood Count 3.92 M/mm3 (4.2-5.4); Red Cell Distribution Width 11.6 % (11.5-14.5); White Blood Count 5.9 K/mm3 (4.5-10.0)
[2021-07-11 15:04] LABS: Add Urine Microscopic? YES; Appearance Urine Clear (Clear); Bilirubin Urine Negative (Negative); Blood Urine Negative (Negative); Color Urine Yellow (Yellow); Glucose Urine UA Negative (Negative); Ketones Urine Negative (Negative); Leukocyte Esterase Ur Trace LEU/UL (Negative); Mucus Urine Rare /lpf; Nitrate Urine Negative (Negative); Protein Urine Negative (Negative); RBC Urine 0-2 /hpf (0-2); Specific Grav Ur 1.021 (1.001-1.035); Squamous Epithelial Cell Urine Moderate /hpf (Few)
[2021-07-11 15:11] LABS: Alanine Aminotransferase 21 U/L (4-35); Albumin Level 4.4 g/dL (3.5-5.1); Alkaline Phosphatase 67 U/L (38-126); Anion Gap 9 mmol/L (8-16); Aspartate Amino Transferase 32 U/L (14-36); Bilirubin,Total 0.4 mg/dL (0.2-1.3); Blood Urea Nitrogen 19 mg/dL (7-17); CRP < 0.5 mg/dL (<1.0); Calcium 9.1 mg/dL (8.4-10.2); Carbon Dioxide 28 mmol/L (22-30); Chloride 104 mmol/L (98-107); Estimated Glomerular Filt Rate > 60; Glucose 89 mg/dL (65-110); Potassium 4.1 mmol/L (3.4-5.0); Sodium 141 mmol/L (137-145)
[2021-07-11 15:32] LABS: Erythrocyte Sedimentation Rate 18 mm/hr (0-20)
== END 2021-07-11 14:28 | disposition home or self-care (01) ==
PROVIDERS: PCP Physician Assistant; Visit Provider Internal Medicine Rheumatology
DX: M15.4 Erosive (osteo)arthritis (principal); Z51.81 Encounter for therapeutic drug level monitoring; Z79.899 Other long term (current) drug therapy
CPT/HCPCS: 36415; 80053; 81001; 85025; 85652; 86140; 87077; 87086; 87088; 87186

== ENCOUNTER 2021-11-26 15:31 | Outpatient (CLI) | payer OTHER, MEDICAID, SELFPAY ==
--- NOTE | ~2021-11-26 | MM_ITS ---
EXAMINATION: MM screening [facility] BI w eugene HISTORY: Screening mammogram TECHNIQUE: Craniocaudal and mediolateral oblique 3-D tomosynthesis images were obtained and synthetic 2-D images were generated. CAD analysis was submitted and interpreted. COMPARISON: 11/13/2020, 09/21/2019, 08/31/2018 BREAST PARENCHYMAL COMPOSITION: There are scattered areas of fibroglandular density. FINDINGS: There is no evidence of suspicious mass, calcification, or architectural distortion to sugg est malignancy in either breast. There has been no suspicious interval change. IMPRESSION: 1. No mammographic evidence of malignancy. 2. Recommend routine screening mammography in one year. BI-RADS Category 1: Negative Reviewed, dictated and finalized at location A. ER HELPER
== END 2021-11-26 15:32 | disposition home or self-care (01) ==
LOC: ANHIMG 15:33
PROVIDERS: PCP Physician Assistant; Visit Provider Obstetrics & Gynecology
DX: Z12.31 Encounter for screening mammogram for malignant neoplasm of breast (principal)
CPT/HCPCS: 77063; 77067

== ENCOUNTER 2022-10-29 08:03 | Outpatient (CLI) | payer OTHER, MEDICAID, SELFPAY ==
[2022-10-29 08:33] LABS: Alanine Aminotransferase 28 U/L (6-35); Albumin Level 4.4 g/dL (3.5-5.1); Alkaline Phosphatase 66 U/L (38-126); Anion Gap 4 mmol/L (8-16); Aspartate Amino Transferase 34 U/L (14-36); Bilirubin,Total 0.4 mg/dL (0.2-1.3); Blood Urea Nitrogen 18 mg/dL (7-17); Calcium 9.1 mg/dL (8.4-10.2); Carbon Dioxide 30 mmol/L (22-30); Chloride 103 mmol/L (98-107); Cholesterol 186 mg/dL (0-200); Estimated Glomerular Filt Rate > 60; Glucose 119 mg/dL (65-110); HDL Direct 66 mg/dL; Potassium 4.2 mmol/L (3.4-5.0); Sodium 137 mmol/L (137-145); Triglycerides 72 mg/dL (<150)
[2022-10-29 08:44] LABS: LDL Cholesterol Direct 81 mg/dL
== END 2022-10-29 08:04 | disposition home or self-care (01) ==
LOC: ANHLAB 08:07
PROVIDERS: PCP Physician Assistant; Visit Provider Physician Assistant
DX: E78.2 Mixed hyperlipidemia (principal); R53.83 Other fatigue
CPT/HCPCS: 36415; 80053; 80061; 84443

== ENCOUNTER 2024-08-18 10:14 | Outpatient (CLI) | payer OTHER, SELFPAY ==
--- NOTE | ~2024-08-18 | MM_ITS ---
EXAMINATION: MM screening [facility] BI w eugene HISTORY: Screening mammogram TECHNIQUE: Craniocaudal and mediolateral oblique 3-D tomosynthesis images were obtained and synthetic 2-D images were generated. CAD analysis was submitted and interpreted. COMPARISON: 11/26/2021, 11/13/2020 BREAST PARENCHYMAL COMPOSITION:Not Dense. There are scattered areas of fibroglandular density. FINDINGS: No suspicious mass, calcification, or architectural distortion are identified in either deana ast to suggest malignancy. There has been no suspicious interval change. IMPRESSION: No mammographic evidence of malignancy. Recommend routine screening mammography in one year. BI-RADS Category 1: Negative Reviewed, dictated and finalized at location .
== END 2024-08-18 10:15 | disposition home or self-care (01) ==
LOC: ANHIMG 10:15
PROVIDERS: PCP Physician Assistant; Visit Provider Obstetrics & Gynecology
DX: Z12.31 Encounter for screening mammogram for malignant neoplasm of breast (principal)
CPT/HCPCS: 77063; 77067

== ENCOUNTER 2024-09-30 10:09 | Outpatient (CLI) | payer OTHER, SELFPAY ==
[2024-09-30 11:08] LABS: Cholesterol 173 mg/dL (0-200); HDL Direct 67 mg/dL; Triglycerides 55 mg/dL (<150)
[2024-09-30 11:19] LABS: LDL Cholesterol Direct 79 mg/dL
--- OUTSIDE RECORDS SUMMARY | 2024-10-04 02:51 | XMS_ITS | Encounter Summary ---
Author Organization [facility] Address [address] [place] [address] Care Team Providers Care Diplomatic Officer Name Role Phone Elizabeth Borrego PA-C Primary Care Provider [phone] Reason for Visit * Reason Onset Date Comments MEDICATION REFILL 01/21/2022 Encounter Details Date Type Department Care Team (Late st Contact Info) Description 01/21/2022 Refill [facility] [place] [id number] Yolanda Muniz MD No info available MEDICATION REFILL Social History Tobacco Use Types Packs/Day Years Used Date Smoking Tobacco: Former Cigarettes Q uit: 02/25/2000 Smokeless Tobacco: Never Alcohol Use Standard Drinks/Week Comments Yes 3 (1 standard drink = 0.6 oz pur e alcohol) PHQ-2 Answer Date Recorded PHQ2 TOTAL SCORE 0 11/26/2021 Sex and Gender Information Value Date Recorded Sex Assigned at Not on file Gender Identity Not on file Sexual Orientation Not on file documented as of this encounter Miscellaneous Notes * Telephone Encounter - Emilia Gordon - 01/21/2022 1:06 PM CDT Refill Request Fabiola Gibson ELIESER: 11/26/2021Aug due: visit date not found AUG scheduled: Visit date not found LRF: 08/27/2021 Qty Disp: 180 # of refills: 1 Allergies: No Known Allergies Pended Medication Order: Requested Prescriptions Pending Prescriptions Disp Refills ??? hydroxychloroquine (PLAQUENIL) 200 MG tablet 180 tablet 1 Sig: Take 1.5 (one and one-half) tablets by mouth once daily documented in this encounter Plan of Treatment Not on file documented as of this encounter Visit Diagnoses Diagnosis Erosive osteoarthritis Osteoarthrosis involving, or with mention of more than one site, but not specified as generalized, site unspecified Vitamin D deficiency Encounter for therapeutic drug monitoring documented in this encounter Care Teams Diplomatic Officer Relationship Specialty Start Date End Date Elizabeth Borrego PA-C PCP - General 01/27/21 documented as of this encounter
--- OUTSIDE RECORDS SUMMARY | 2024-10-04 02:51 | XMS_ITS | Encounter Summary ---
Author Organization [facility] Address [address] [place] [address] Care Team Providers Care Refrigeration Unit Repairer Name Role Phone Barbra Villalba Primary Care Pr ovider Encounter Details Date Type Department Care Team (Late st Contact Info) Description 12/22/2018 Orders Only [facility] [address] [place] [address] Paulina Dawson DO [address] [place] [id number] Erosive osteoarthritis; Vitamin D deficiency; Encounter for therapeutic drug monitoring Social History Tobacco Use Types Packs/Day Years Used Date Smoking Tobacco: Former Cigarettes Q uit: 02/25/2000 Smokeless Tobacco: Never Alcohol Use Standard Drinks/Week Comments Yes 3 (1 standard drink = 0.6 oz pur e alcohol) Sex and Gender Information Value Date Recorded Sex Assigned at Not on file Gender Identity Not on file Sexual Orientation Not on file documented as of this encounter Progress Notes * Paulina Dawson DO - 12/22/2018 12:14 PM CST Issue with her mail order pharmacy. Needs 30 day supply of HCQ sent to [facility]. OL TREASURER documented in this encounter Plan of Treatment Not on file documented as of this encounter Visit Diagnoses Diagnosis Erosive osteoarthritis Osteoarthrosis involving, or with mention of more than one site, but not specified as generalized, site unspecified Vitamin D deficiency Encounter for therapeutic drug monitoring documented in this encounter Care Teams Refrigeration Unit Repairer Relationship Specialty Start Date End Date Barbra Villalba PA [address] [place] [id number] PCP - General 01/05/18 01/03/19 documented as of this encounter
--- OUTSIDE RECORDS SUMMARY | 2024-10-04 02:51 | XMS_ITS | Encounter Summary ---
Author Organization [facility] Address [address] [place] [address] Care Team Providers Care Software Developer Mid Level Name Role Phone Barbra Villalba Primary Care Pr ovider Reason for Visit * Reason Comments Follow-up rheumatoid arthritis Encounter Details Date Type Department Care Team (Late st Contact Info) Description 03/08/2019 12:30 PM CDT Office Visit [facility] [address] [place] [address] Paulina Dawson, DO [address] [place] [address] Arthralgia, unspecified joint (Primary Dx); Erosive osteoarthritis; Vitamin D deficiency; Encounter for [...] on file documented as of this encounter Last Filed Vital Signs Vital Sign Reading Time Taken Comments Blood Pressure 104/72 03/08/2019 1:15 PM CDT Pulse 56 03/08/2019 1:15 PM CDT Temperature 36.2 ??C (97.1 ??F) 03/08/2019 1:15 PM CD T Respiratory Rate - - Oxygen Saturation - - Inhaled Oxygen Concentration - - Weight 69.9 kg (154 lb) 03/08/2019 1:15 PM CDT Height - - Body Mass Index 26.85 07/20/2018 8:36 AM CDT documented in this encounter Patient Instructions * Patient Instructions* Paulina Dawson DO - 03/08/2019 2:57 PM CDT 1. Decrease hydroxychloroquine to 300 mg daily (1.5 tab daily) OR 1 tab on odd days, 2 tabs on evendays. 2. Continue Vitamin D supplementation. 3. Call with questions. If you need to change or cancel your Rheumatology appointment - At the [facility] at [address], [address], call [phone] If you need a refill request, have your pharmacy fax a request to [phone] If you need to leave a message for Dr. Dawson, you can send her an electronic message via [employer] voicemail at [phone]. Her office FAX number is [phone]. For after hours emergency only, you can call the [facility] production machine operator at [phone] and ask for the Research Environmental Scientist production lapping machine operator to be paged. documented in this encounter Progress Notes * Swetha Ballesteros MD - 03/08/2019 2:21 PM CDT Rheumatology Attending Cosign Note I saw Fabiola Gibson, a 53 year old female today for follow up visit in the Rheumatology Clinic with Dr Dawson for the following diagnoses: 1. Arthralgia, unspecified joint 2. Erosive osteoarthritis 3. Vitamin D deficiency 4. Encounter for therapeutic drug monitoring We have discussed this patient and I have interviewed and examined the patient myself. I agree withher note, exam, assessment and plan. She also lost her insurance for a time and was off her Hydroxychloroquine (Plaquenil) and noted worsening sx - Since her last visit - called about 1 mo after bridget that she woke up on [place] with severe pain - was given 5 d of prednisone - and got better. 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 03/08/2019 Swetha Ballesteros M.D. * Paulina Dawson DO - 03/08/2019 1:38 PM CDT [facility] Division of Adult & Pediatric Rheumatology Follow up Visit 07/20/2018 Diagnosis/Problem(s): Erosive osteoarthritis Vitamin D deficiency Encounter for therapeutic drug monitoring Interval History: Fabiola Gibson is a White/ female with a previous diagnosis of seronegative RA who presents for follow up visit. Patient was last seen 01/05/2018. Hands and ankles. [facility] in [place], [place]. Since she was last seen, she temporarily lost her insurance and stopped her HCQ. She did not noticeincreased joint pains immediately but the joint pains became severe off the medication. She noted that most joints bothered her with morning stiffness. It was also worse with periods of immobility. She denies swelling. She has now been back on the HCQ and is symptom free. Her joint pain is completely resolved on the HCQ. She denies any joint swelling, joint pain. She has also lost about 30-35 pounds with Weight Watcher's that she really believes has helped her joint symptoms as well. She usually walks as her exercise. She is up to date on her eye exam. She has to go back for the second part of testing in August 2018. She follows at [facility] in [place], [place]. Review of Systems: General: -fatigue, -fever, -wt loss/gain, daily functioning not limited HEENT: -dry eyes, -dry mouth, -eye redness, -eye pain, -oral/nasal ulcers CV: -chest pain Resp: -cough, -SOB GI: -abd pain, -constipation, -nausea, -vomiting, -diarrhea, -blood/mucus : -urine changes, -dysuria, -hematuria MSK: -arthralgia, -myalgia, -swelling, -erythema, -warmth, -AM stiffness, -back pain Skin: -rash, -lesions, -hair loss, -nail changes, -Raynaud, -photosensitivity, -acrocyanosis Neuro: -BRAND, -vision changes, -muscle weakness, -paresthesias Psych: -depression, -anxiety ROS otherwise negative Past Medical/Surgical History: Past Medical History: Diagnosis Date ??? 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 HX C SECTION CLASSIC 1989 and 1991 ??? HX TUBAL LIGATION 2004 Family History: family history includes Arthritis - Osteo in her sister; Arthritis - Rheumatoid in her sister; Coronary Artery Disease in her brother; Diabetes in her sister; Emphysema in her father; Heart Disease in her mother; Osteoporosis in her mother. There is no history of Lupus, Inflammatory Bowel Disease, Thyroid Disease, or Psoriasis. Social History: Social History Social History ??? Marital status: Spouse name: N/A ??? Number of children: N/A ??? Years of education: N/A Occupational History ??? Not on file. Social History Main Topics ??? Smoking status: Former Smoker Quit date: 02/25/2000 ??? Smokeless tobacco: Never Used ??? Alcohol use 1.8 oz/week ??? Drug use: No ??? Sexual activity: Not on file Other Topics Concern ??? Not on file Social History Narrative Current Medications: Current Outpatient Prescriptions Medication Sig Dispense Refill ??? buPROPion XL 24hr (WELLBUTRIN-XL) 150 MG tablet Take 150 mg by mouth once daily ??? Ergocalciferol (VITAMIN D2) 2000 units Take 1 tablet by mouth once daily ??? escitalopram (LEXAPRO) 10 MG tablet Take 10 mg by mouth once daily ??? hydroxychloroquine (PLAQUENIL) 200 MG tablet Take 1 tablet by mouth 2 times daily 60 tablet 0 ??? losartan (COZAAR) 50 MG tablet Take 50 mg by mouth DAILY. ??? metoprolol succinate XL 24hr (TOPROL XL) 100 MG tablet Take 100 mg by mouth DAILY. (Patient taking differently: Take 50 mg by mouth DAILY ) ??? pravastatin (PRAVACHOL) 40 MG tablet Take 40 mg by mouth DAILY. No current facility-administered medications for this visit. Allergies: FABIOLA Stevenson No Known Allergies. Physical Exam: BP 104/72 (BP SITE: RIGHT ARM, BP POSITION: SITTING, BP CUFF SIZE: 11) Pulse 56 Temp 97.1 ??F (36.2??C) (Oral) Wt 154 lb (69.9 kg) BMI 26.85 kg/m2 General: no distress, cooperative Skin: no rash or lesions, no color change or livedo reticularis, normal temperature & turgor HEENT: conjunctivae and sclerae clear, PERRLA, EOMI, external ear normal, no oral or nasal ulceration, mucus membranes moist Neck: supple, normal ROM, no LAD Back: symmetric, no curvature, normal ROM, no paraspinal tenderness, no SI tenderness Chest/Lungs: lungs CTAB, no wheezes, rhonchi, or rales Heart: RRR, no murmur, no rub or gallop Abdomen; soft, non-tender, non-distended, no HSM Neurologic: grossly intact, alert, muscle strength 5/5 Musculoskeletal Exam: HNs with CMC squaring bilaterally Crepitus appreciated bilaterally in knees S0T0 No active synovitis No enthesitis Labs: 01/28/18 CMP Cr 0.90, LFT unremarkable CBC: Wbc 5.0, Hgb 11.7 (MCV 84.8), Plts 297k UA: 1+ prot, trace bacteria CRP <0.5 ESR 22 TSH 0.803, fT4 0.78 Vitamin D 26.9 Folic Acid 18.5 Vit B12 < 159.0 FLP: Total 147, TG 73, LDL 63, HDL 50 HgbA1c 5.6% 07/2017 CMP Cr 0.80 LFT unremarkable CBC Wbc 3.2, Hgb 12.3, Plts 317k UA +protein, Wbc's, epi cells ESR 8 CRP 0.6 ?? 02/2017 CMP Cr 0.65, LFT unremarkable CBC: Wbc 3.6, Hgb 11.0 (MCV 82.5), Plts 285k UA nitrite, wbc, many bacteria, positive epi cells; no symptoms Cx E. Coli ESR 14, CRP <0.01 Vit D level 20 TSH 1.77 C3 119, C4 20, CH50 55 EDWIN negative Anti Chromatin negative Anti dsDNA negative Anti Scl-70 negative Anti Sm/HARNESS FITTER negative Anti Sm negative Anti Centromere negative Anti SSA / SSB negative Anti Histone negative RF 8, Anti CCP <16 ?? 10/2016 RPR negative Hep A IgM non-reactive Hep B sAg non-reactive Hep B cAb non-reactive Hep C Ab non-reactive HIV Ag/Ab non-reactive ? 05/2016 CMP: Cr 0.69, Gluc 105, LFT unremarkable Anti CCP <16 ? 06/2015 CMP: Cr 0.61, LFT unremarkable CBC: Wbc 4.2, Hgb 11.7 (MCV 87), Plts 291k TSH 1.4 ??fT4 0.8 A1c 5.6 Diagnostics: XR hand and feet 02/2017: Impression: 1. Normal joint spaces of both feet. Small bilateral heel spurs. 2. Normal joint spaces of both hands. There is a small subchondral cyst or erosion within the left small finger metacarpal head. ?? Eye exam 03/18/17: Normal OCT without toxicity Assessment: Fabiola Gibson is a 52 y.o. female with erosive osteoarthritis and vitamin D deficiency. She has improved significantly on HCQ monotherapy and vitamin D replacement. Last Vitamin D was still low in mid-20s. She has not required PRN NSAIDs. She is up to date on her eye exam and will have it sent to us. Plan: 1. Continue current regimen of ?? HCQ 200 mg BID. ?? Aleve 220 mg BID. 2. We recommend continued exercise, daily stretching. 3. Patient will have eye exam faxed to us. Needs regular eye exams every 6 months to 1 year. 4. Labs/Imaging Ordered: As below 5. Return to clinic in 6 months. ?? This patient was seen and the plan of care was discussed with attending physician Dr. Ballesteros. Paulina Dawson, Rheumatology Fellow [facility] Pager: [phone] No orders of the defined types were placed in this encounter. * Paulina Dawson DO - 03/08/2019 1:36 PM CDT [facility] Division of Adult & Pediatric Rheumatology Follow up Visit 07/20/2018 Diagnosis/Problem(s): ICD-10-CM 1. Arthralgia, unspecified joint M25.50 2. Erosive osteoarthritis M15.4 3. Vitamin D deficiency E55.9 4. Encounter for therapeutic drug monitoring Z51.81 Interval History: Fabiola Gibson is a White/ female with a previous diagnosis of seronegative RA/erosive OA who presents for follow up visit. Patient was last seen July 2018. She has been maintained on hydroxychloroquine 200 mg BID. She recently had her eye exam completed at [facility] in [place], [place]. Around [place], she developed increased joint pain and swelling of her hands, feet, and ankles. This lasted for about 1 month and then she called when it persisted. We did a short trial of prednisone and her symptoms dramatically improved. Today, she remains joint pain free and is not currently taking any over the counter NSAIDs. She was found to have a carcinoid tumor on endoscopy. She has undergone work up and is actively under surveillance with Heme/Onc. As of now, there is no need (per her report) for chemotherapy or surgery for which she is very thankful. Review of Systems: General: -fatigue, -fever, -wt loss/gain, daily functioning not limited HEENT: -dry eyes, -dry mouth, -eye redness, -eye pain, -oral/nasal ulcers CV: -chest pain Resp: -cough, -SOB GI: -abd pain, -constipation, -nausea, -vomiting, -diarrhea, -blood/mucus : -urine changes, -dysuria, -hematuria MSK: -arthralgia, -myalgia, -swelling, -erythema, -warmth, -AM stiffness, -back pain Skin: -rash, -lesions, -hair loss, -nail changes, -Raynaud, -photosensitivity, -acrocyanosis Neuro: -BRAND, -vision changes, -muscle weakness, -paresthesias Psych: -depression, -anxiety ROS otherwise negative Past Medical/Surgical History: Past Medical History: Diagnosis Date ??? 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 HX C SECTION CLASSIC 1989 and 1991 ??? HX TUBAL LIGATION 2004 Family History: family history includes Arthritis - Osteo in her sister; Arthritis - Rheumatoid in her sister; Coronary Artery Disease in her brother; Diabetes in her sister; Emphysema in her father; Heart Disease in her mother; Osteoporosis in her mother. There is no history of Lupus, Inflammatory Bowel Disease, Thyroid Disease, or Psoriasis. Social History: Social History Social History ??? Marital status: Spouse name: N/A ??? Number of children: N/A ??? Years of education: N/A Occupational History ??? Not on file. Social History Main Topics ??? Smoking status: Former Smoker Quit date: 02/25/2000 ??? Smokeless tobacco: Never Used ??? Alcohol use 1.8 oz/week ??? Drug use: No ??? Sexual activity: Not on file Other Topics Concern ??? Not on file Social History Narrative Current Medications: Current Outpatient Prescriptions Medication Sig Dispense Refill ??? buPROPion XL 24hr (WELLBUTRIN-XL) 150 MG tablet Take 150 mg by mouth once daily ??? Ergocalciferol (VITAMIN D2) 2000 units Take 1 tablet by mouth once daily ??? escitalopram (LEXAPRO) 10 MG tablet Take 10 mg by mouth once daily ??? hydroxychloroquine (PLAQUENIL) 200 MG tablet Take 1.5 tablets by mouth once daily 135 tablet 2 ??? losartan (COZAAR) 50 MG tablet Take 50 mg by mouth DAILY. ??? metoprolol succinate XL 24hr (TOPROL XL) 100 MG tablet Take 100 mg by mouth DAILY. (Patient taking differently: Take 50 mg by mouth DAILY ) ??? pravastatin (PRAVACHOL) 40 MG tablet Take 40 mg by mouth DAILY. No current facility-administered medications for this visit. Allergies: FABIOLA Stevenson No Known Allergies. Physical Exam: BP 104/72 (BP SITE: RIGHT ARM, BP POSITION: SITTING, BP CUFF SIZE: 11) Pulse 56 Temp 97.1 ??F (36.2??C) (Oral) Wt 154 lb (69.9 kg) BMI 26.85 kg/m2 General: no distress, cooperative Skin: no rash or lesions, no color change or livedo reticularis, normal temperature & turgor HEENT: conjunctivae and sclerae clear, PERRLA, EOMI, external ear normal, no oral or nasal ulceration, mucus membranes moist Neck: supple, normal ROM, no LAD Back: symmetric, no curvature, normal ROM, no paraspinal tenderness, no SI tenderness Chest/Lungs: lungs CTAB, no wheezes, rhonchi, or rales Heart: RRR, no murmur, no rub or gallop Abdomen; soft, non-tender, non-distended, no HSM Neurologic: grossly intact, alert, muscle strength 5/5, including nuclear monitoring technician strength. Musculoskeletal Exam: HNs with CMC squaring bilaterally Crepitus appreciated bilaterally in knees S0T0 No active synovitis No enthesitis Labs: 10/2018 CMP: ALT: 34, AST: 21, Cr: 0.8 CRP: <0.5, ESR: 22 CBC: WBC: 4.2, Hgb: 10.5 Plts: 277,000 01/28/18 CMP Cr 0.90, LFT unremarkable CBC: Wbc 5.0, Hgb 11.7 (MCV 84.8), Plts 297k UA: 1+ prot, trace bacteria CRP <0.5 ESR 22 TSH 0.803, fT4 0.78 Vitamin D 26.9 Folic Acid 18.5 Vit B12 < 159.0 FLP: Total 147, TG 73, LDL 63, HDL 50 HgbA1c 5.6% 07/2017 CMP Cr 0.80 LFT unremarkable CBC Wbc 3.2, Hgb 12.3, Plts 317k UA +protein, Wbc's, epi cells ESR 8 CRP 0.6 ?? 02/2017 CMP Cr 0.65, LFT unremarkable CBC: Wbc 3.6, Hgb 11.0 (MCV 82.5), Plts 285k UA nitrite, wbc, many bacteria, positive epi cells; no symptoms Cx E. Coli ESR 14, CRP <0.01 Vit D level 20 TSH 1.77 C3 119, C4 20, CH50 55 EDWIN negative Anti Chromatin negative Anti dsDNA negative Anti Scl-70 negative Anti Sm/HARNESS FITTER negative Anti Sm negative Anti Centromere negative Anti SSA / SSB negative Anti Histone negative RF 8, Anti CCP <16 ?? 10/2016 RPR negative Hep A IgM non-reactive Hep B sAg non-reactive Hep B cAb non-reactive Hep C Ab non-reactive HIV Ag/Ab non-reactive ? 05/2016 CMP: Cr 0.69, Gluc 105, LFT unremarkable Anti CCP <16 ? 06/2015 CMP: Cr 0.61, LFT unremarkable CBC: Wbc 4.2, Hgb 11.7 (MCV 87), Plts 291k TSH 1.4 ??fT4 0.8 A1c 5.6 Diagnostics: XR hand and feet 02/2017: Impression: 1. Normal joint spaces of both feet. Small bilateral heel spurs. 2. Normal joint spaces of both hands. There is a small subchondral cyst or erosion within the left small finger metacarpal head. ?? Eye exam 03/18/17: Normal OCT without toxicity. Assessment: Fabiola Gibson is a 53 year old female with erosive osteoarthritis/seronegative RA and vitamin D deficiency. She has improved significantly on HCQ monotherapy and vitamin D replacement. Last Vitamin D was still low in mid-20s. She has not required PRN NSAIDs. She is up to date on her eye exam and will have it sent to us. Plan: 1. Continue HCQ but decrease dose to 300 mg daily. 2. We recommend continued exercise, daily stretching. 3. Patient will have eye exam faxed to us. Needs regular eye exams every 6 months to 1 year. 4. Labs/Imaging Ordered: Labs with next visit. 5. Return to clinic in 6 months. ?? This patient was seen and the plan of care was discussed with attending physician Dr. Ballesteros. Paulina Dawson DO Rheumatology Fellow [facility] Medicine Office: [phone] Orders Placed This Encounter ??? hydroxychloroquine (PLAQUENIL) 200 MG tablet documented in this encounter Plan of Treatment Not on file documented as of this encounter Visit Diagnoses Diagnosis Arthralgia, unspecified joint- Primary Erosive osteoarthritis Osteoarthrosis involving, or with mention of more than one site, but not specified as generalized, site unspecified Vitamin D deficiency Encounter for therapeutic drug monitoring documented in this encounter Care Teams Software Developer Mid Level Relationship Specialty Start Date End Date Barbra Villalba PA [address] [place] [id number] PCP - General 03/08/19 01/26/21 documented as of this encounter
--- OUTSIDE RECORDS SUMMARY | 2024-10-04 02:51 | XMS_ITS | Encounter Summary ---
Author Organization [facility] Address [address] [place] [address] Care Team Providers Care Map Plotter Name Role Phone Barbra Villalba Primary Care Pr ovider Reason for Visit * Reason Comments Refill Request Encounter Details Date Type Department Care Team (Late st Contact Info) Description 07/04/2019 Refill [facility] [address] [place] [address] Paulina Dawson, DO [address] [place] [id number] Refill Request Social History Tobacco Use Types Packs/Day Years [...] encounter Miscellaneous Notes * Telephone Encounter - Bibi Greene - 07/04/2019 12:25 PM CDT m documented in this encounter Plan of Treatment Not on file documented as of this encounter Visit Diagnoses Diagnosis Erosive osteoarthritis Osteoarthrosis involving, or with mention of more than one site, but not specified as generalized, site unspecified Vitamin D deficiency Encounter for therapeutic drug monitoring documented in this encounter Care Teams Map Plotter Relationship Specialty Start Date End Date Barbra Villalba PA [address] [place] [id number] PCP - General 03/08/19 01/26/21 documented as of this encounter
--- OUTSIDE RECORDS SUMMARY | 2024-10-04 02:51 | XMS_ITS | Encounter Summary ---
Author Organization [facility] Address [address] [place] [address] Care Team Providers Care Production Helper Name Role Phone Noam Huizar MD Primary Care Provider [phone] Reason for Visit * Reason Onset Date Comments MEDICATION REFILL 01/30/2019 Encounter Details Date Type Department Care Team (Late st Contact Info) Description 01/30/2019 Refill [facility] [address] [place] [address] Paulina Dawson, DO [address] [place] [id number] MEDICATION REFILL Social History Tobacco Use Types [...] on file documented as of this encounter Plan of Treatment Not on file documented as of this encounter Visit Diagnoses Diagnosis Erosive osteoarthritis Osteoarthrosis involving, or with mention of more than one site, but not specified as generalized, site unspecified Vitamin D deficiency Encounter for therapeutic drug monitoring documented in this encounter Care Teams Production Helper Relationship Specialty Start Date End Date Noam Huizar MD [address] [place] [address] PCP - General 3/20/19 5/21/19 documented as of this encounter
--- OUTSIDE RECORDS SUMMARY | 2024-10-04 02:51 | XMS_ITS | Encounter Summary ---
Author Organization [facility] Address [address] [place] [address] Care Team Providers Care Electric Locomotive Firer/Fireman Name Role Phone Elizabeth Borrego PA-C Primary Care Provider [phone] Reason for Visit * Reason Comments Establish Care Pain Joint Encounter Details Date Type Department Care Team (Latest Contact Info) Description 01/29/2021 3:00 PM CDT Office Visit [facility] [address] [place] [address], [facility] [place] [address] Bessie Vail MD [address] [place] [address] [place] [address] Erosive osteoarthritis (Primary Dx); Encounter for long-term (current) use of high-risk medication; Encounter for therapeutic drug monitoring Social History [...] Sign Reading Time Taken Comments Blood Pressure 98/66 01/29/2021 3:14 PM CDT Pulse - - Temperature 36.4 ??C (97.6 ??F) 01/29/2021 3:14 PM CD T Respiratory Rate - - Oxygen Saturation - - Inhaled Oxygen Concentration - - Weight 67.2 kg (148 lb 3.2 oz) 01/29/2021 3:14 P M CDT Height 167.6 cm (5' 6 ) 01/29/2021 3:14 PM CDT Body Mass Index 23.92 01/29/2021 3:14 PM CDT documented in this encounter Patient Instructions * Patient Instructions* Bessie Vail MD - 01/29/2021 3:41 PM CDT Continue current treatment Get labs done before next visit Get an eye exam every 12 months Return to follow up in 6 months If you need to change or cancel your Rheumatology appointment - At the [facility]'s Office Building at [address] [place] [address], [address], call [phone] At [facility], call [phone] If you need a refill request, have your pharmacy fax a request to [phone]. If you need to leave a message for Dr. Vail, you can send her an electronic message via My Chart (brief message only for yes or no questions) or call my office directly, if its emergency call [phone]. For after hours emergency only, you can call the [facility] bead forming machine set up operator at [phone] and ask for the Wood Preserving Plant Laborer sanitation engineer to be paged. documented in this encounter Progress Notes * Bessie Vail MD - 01/29/2021 3:27 PM CDT [facility] Division of Adult & Pediatric Rheumatology Follow up Visit Note Follow-up Visit 01/29/2021 Diagnosis/Problem(s): 1. Erosive osteoarthritis 2. Encounter for long-term (current) use of high-risk medication 3. Encounter for therapeutic drug monitoring Interval History: FABIOLA GIBSON ( 1965) is a 55 year old female here for follow up. Today patient reports having stiffness in her hands mostly in the morning for 30 minutes She has no joint pain or swelling Previous History: Erosive OA Review of Systems: General: -fatigue, -fever, -wt loss/gain, daily functioning not limited HEENT: -dry eyes, -dry mouth, -eye redness, -eye pain, -oral/nasal ulcers CV: -chest pain Resp: -cough, -SOB GI: -abd pain, -constipation, -nausea, -vomiting, -diarrhea, -blood/mucus : -urine changes, -dysuria, -hematuria MSK: +arthralgia, -myalgia, -swelling, -erythema, -warmth, +AM stiffness, -back pain Skin: -rash, -lesions, -hair loss, -nail changes, -Raynaud, -photosensitivity, -acrocyanosis Neuro: -BRAND, -vision changes, -muscle weakness, -paresthesias Psych: -depression, -anxiety ROS otherwise negative Current Medications: Current Outpatient Medications Medication Sig Dispense Refill ??? buPROPion XL 24hr (WELLBUTRIN-XL) 150 MG tablet Take 150 mg by mouth once daily ??? cyanocobalamin (VITAMIN B-12) injection 100 mcg ??? Ergocalciferol (VITAMIN D2) 2000 units Take 1 tablet by mouth once daily ??? escitalopram (LEXAPRO) 10 MG tablet Take 10 mg by mouth once daily ??? hydroxychloroquine (PLAQUENIL) 200 MG tablet Take 1 tablet by mouth 2 times daily 180 tablet 3 ??? octreotide (SANDOSTATIN) 100 MCG/ML injection 1 mL ??? pravastatin (PRAVACHOL) 40 MG tablet Take 40 mg by mouth DAILY. ??? valsartan-hydroCHLOROthiazide (DIOVAN HCT) 160-12.5 MG tablet No current facility-administered medications for this visit. Physical Exam: BP 98/66 Temp 97.6 ??F (36.4 ??C) (Temporal) Ht 5' 6 (1.676 m) Wt 148 lb 3.2 oz (67.2 kg) BMI 23.92 kg/m2 General: no distress, cooperative Skin: no [...] intact, alert, muscle strength 5/5 Musculoskeletal Exam: +HN, +BN No synovitis Lab/Diagnostics: 11/18/20, CBC and CMP ( care everywhere) Assessment/Plan: Dr. 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 Carcinoid tumor of the stomach, s/p surgery 3. Anemia F/u 6 months Orders Placed This Encounter ??? CBC WITH DIFFERENTIAL ??? COMPREHENSIVE METABOLIC PANEL ??? C-REACTIVE PROTEIN ??? ERYTHROCYTE SEDIMENTATION RATE ??? URINALYSIS W/MICROSCOPIC REFLEX TO CULTURE documented in this encounter Plan of Treatment Scheduled Orders Name Type Priority Associated Diagnoses Orde r Schedule CBC WITH DIFFERENTIAL Lab Routine Erosive osteoarthritis Encounter for long-term (current) use of high-risk medication Encounter for therapeutic drug monitoring Ordered: 01/29/2021 COMPREHENSIVE METABOLIC PANEL Lab Routine Erosive osteoarthritis Encounter for long-term (current) use of high-risk medication Encounter for therapeutic drug monitoring Ordered: 01/29/2021 C-REACTIVE PROTEIN Lab Routine Erosive osteoarthritis Encounter for long-term (current) use of high-risk medication Encounter for therapeutic drug monitoring Ordered: 01/29/2021 ERYTHROCYTE SEDIMENTATION RATE Lab Routine Erosive osteoarthritis Encounter for long-term (current) use of high-risk medication Encounter for therapeutic drug monitoring Ordered: 01/29/2021 URINALYSIS W/MICROSCOPIC REFLEX TO CULTURE Lab Routine Erosive osteoarthritis Encounter for long-term (current) use of high-risk medication Encounter for therapeutic drug monitoring Ordered: 01/29/2021 documented as of this encounter Visit Diagnoses Diagnosis Erosive osteoarthritis- Primary Osteoarthrosis involving, or with mention of more than one site, but not specified as generalized, site unspecified Encounter for long-term (current) use of high-risk medication Encounter for long-term (current) use of other medications Encounter for therapeutic drug monitoring documented in this encounter Care Teams Electric Locomotive Firer/Fireman Relationship Specialty Start Date End Date Elizabeth Borrego, NITA PCP - General 01/27/21 documented as of this encounter
--- OUTSIDE RECORDS SUMMARY | 2024-10-04 02:51 | XMS_ITS | Encounter Summary ---
Author Organization [facility] Address [address] [place] [address] Care Team Providers Care Rebrander Name Role Phone Barbra Villalba Primary Care Pr ovider Reason for Visit * Reason Comments Arthritis Encounter Details Date Type Department Care Team (Latest Contact Info) Description 07/20/2018 8:30 AM CDT Office Visit [facility] [address] [place] [address] Paulina Dawson, DO [address] [place] [address] Erosive osteoarthritis (Primary Dx); Vitamin D deficiency; Encounter for therapeutic drug [...] Sign Reading Time Taken Comments Blood Pressure 100/70 07/20/2018 8:36 AM CDT Pulse 64 07/20/2018 8:36 AM CDT Temperature 36.9 ??C (98.5 ??F) 07/20/2018 8:36 AM CD T Respiratory Rate - - Oxygen Saturation - - Inhaled Oxygen Concentration - - Weight 70.8 kg (156 lb) 07/20/2018 8:36 AM CDT Height 161.3 cm (5' 3.5 ) 07/20/2018 8:36 AM CDT Body Mass Index 27.2 07/20/2018 8:36 AM CDT documented in this encounter Patient Instructions * Patient Instructions* Paulina Dawson DO - 07/20/2018 9:13 AM CDT 1. Continue hydroxychloroquine 200 mg twice daily. 2. Get eye exam and ask them to fax results to [phone]. 3. Call if issues. 4. Get labs. 5. Follow up in 6 months. If you need to change or cancel your Rheumatology appointment - At the [facility] Building at [address], [address], call [phone] If you need a refill request, have your pharmacy fax a request to [phone] If you need to leave a message for Dr. Dawson, you can send her an electronic message via hereO a voicemail at [phone]. Her office FAX number is [phone]. For after hours emergency only, you can call the [facility] slitter scorer cut off operator at [phone] and ask for the Chief Cruiser refrigeration mechanic to be paged. documented in this encounter Progress Notes * Swetha Ballesteros MD - 07/20/2018 8:51 AM CDT Rheumatology Attending Note Fabiola Gibson is a 53 y.o. female who is here for a follow-up visit with the following diagnosis: 1. Erosive osteoarthritis 2. Vitamin D deficiency 3. Encounter for therapeutic drug monitoring The patient was last seen 01/05/18. Patient seen and examined with Dr Dawson. I confirm history, exam, assessment and plan. In addition I note: Interval history: Since her last visit, she lost insurance for a bit and was without Hydroxychloroquine (Plaquenil) for awhile - she tells us that she hurt everywhere in most joints - now back on andfeels very well - no sig joint pain - no needed Aleve etc - also started Weight Watchers has lost 30 lbs (documented) - which she feels has also helped - Was to have an eye exam in March - but needs to return for Visual Abrams in Aug - ? OCT -We have asked them to send records when done - ROS: As noted and per the resident/fellow note - Unremarkable - Exam: BP 100/70 Pulse 64 Temp 98.5 ??F (36.9 ??C) Ht 5' 3.5 (1.613 m) Wt 156 lb (70.8 kg) BMI 27.2kg/m2 General - WDWN female ; No distress Skin: no rashes noted HEENT- NCAT, PERRL, Oropharynx clear. Heart - RRR; Lungs - clear MS: Bilat wrists - dec ROM -rosa flex - S0T0 Bilat - CMC squaring; HN No active synovitis Bilat knee crepitance Assessment/Plan:Fabiola Gibson is a 53 y.o. female with 1. Erosive osteoarthritis 2. Vitamin D deficiency 3. Encounter for therapeutic drug monitoring Overall she is improved on Hydroxychloroquine (Plaquenil) - her dx seems to be most consistent witherosive OA. Since she feels well on Hydroxychloroquine (Plaquenil), we will continue - ok to take PRN NSAID if needed Vit D insufficiency - was off Vit D with insurance loss - now back on - will re- check and treat appropriately Cont to encourage wt loss and activity - Visit: 07/20/2018 Please see fellow's note for further details. Swetha Ballesteros MD * Paulina Dawson DO - 07/20/2018 8:35 AM CDT [facility] Division of Adult & Pediatric Rheumatology Follow up Visit 07/20/2018 Diagnosis/Problem(s): Erosive osteoarthritis Vitamin D deficiency Encounter for therapeutic drug monitoring Interval History: Fabiola Gibson is a White/ female with a previous diagnosis of seronegative RA who presents for follow up visit. Patient was last seen 01/05/2018. Since she was last seen, she temporarily [...] testing in August 2018. She follows at [facility] in [place], [place]. Review of Systems: General: -fatigue, -fever, [...] -anxiety ROS otherwise negative Past Medical/Surgical History: No past medical history on file. Past Surgical History: Procedure Laterality Date ??? [...] Social History Social History ??? Marital status: Single Spouse name: N/A ??? Number of children: [...] Outpatient Prescriptions Medication Sig Dispense Refill ??? ergocalciferol (DRISDOL) 57756 UNITS capsule Take 1 capsule by mouth every 7 days 12 capsule 0 ??? hydroxychloroquine (PLAQUENIL) 200 MG tablet Take 1 tablet by mouth 2 times daily 180 tablet 1 ??? buPROPion XL 24hr (WELLBUTRIN-XL) 300 MG tablet Take 300 mg by mouth Every Morning. ??? metoprolol succinate XL 24hr (TOPROL XL) 100 MG tablet Take 100 mg by mouth DAILY. ??? pravastatin (PRAVACHOL) 40 MG tablet Take 40 mg by mouth DAILY. ??? losartan (COZAAR) 50 MG tablet Take 50 mg by mouth DAILY. No current facility-administered medications for this visit. Allergies: FABIOLA Stevenson No Known Allergies. Physical Exam: BP 100/70 Pulse 64 Temp 98.5 ??F (36.9 ??C) Ht 5' 3.5 (1.613 m) Wt 156 lb (70.8 kg) BMI 27.2 kg/m2 General: no distress, cooperative Skin: no [...] Anti dsDNA negative Anti Scl-70 negative Anti Sm/JAVA SCALA DEVELOPER negative Anti Sm negative Anti Centromere negative [...] with attending physician Dr. Ballesteros. Paulina Dawson, DO Rheumatology Fellow [facility] Pager: [phone] Orders Placed This Encounter ??? FLU VACCINE QUAD IIV4 SPLIT PF IM ??? CBC WITH DIFFERENTIAL ??? COMPREHENSIVE METABOLIC PANEL ??? URINALYSIS REFLEX TO MICROSCOPIC NO CULTURE ??? VITAMIN D 1,25 DIHYDROXY ??? ERYTHROCYTE SEDIMENTATION RATE ??? C-REACTIVE PROTEIN ??? ergocalciferol (DRISDOL) 10357 UNITS capsule ??? hydroxychloroquine (PLAQUENIL) 200 MG tablet ER ASSEMBLER documented in this encounter Plan of Treatment Not on file documented as of this encounter Visit Diagnoses Diagnosis Erosive osteoarthritis- Primary Osteoarthrosis involving, or with mention of more than one site, but not specified as generalized, site unspecified Vitamin D deficiency Encounter for therapeutic drug monitoring documented in this encounter Care Teams Rebrander Relationship Specialty Start Date End Date Barbra Villalba PA [address] [place] [id number] PCP - General 01/05/18 01/03/19 documented as of this encounter
--- OUTSIDE RECORDS SUMMARY | 2024-10-04 02:51 | XMS_ITS | Encounter Summary ---
Author Organization [facility] Address [address] [place] [address] Care Team Providers Care Rn Hematology Name Role Phone Elizabeth Borrego PA-C Primary Care Provider [phone] Reason for Visit * Reason Onset Date Comments UTI 07/14/2021 Encounter Details Date Type Department Care Team (Late st Contact Info) Description 07/14/2021 Telephone [facility] [address] [place] [address] Bessie Vail MD [address] [place] [address] UTI Social History Tobacco Use Types Packs/Day Years [...] encounter Miscellaneous Notes * Telephone Encounter - Bessie Vail MD - 07/14/2021 1:53 PM CDT Spoke with the patient, has UTI, Cipro sent to her pharmacy, she agreed, discussed other labs with her documented in this encounter Plan of Treatment Not on file documented as of this encounter Visit Diagnoses Not on filedocumented in this encounter Care Teams Rn Hematology Relationship Specialty Start Date End Date Elizabeth Borrego PA-C PCP - General 01/27/21 documented as of this encounter
--- OUTSIDE RECORDS SUMMARY | 2024-10-04 02:51 | XMS_ITS | Encounter Summary ---
Author Organization [facility] Address [address] [place] [address] Care Team Providers Care Nutrient Management Specialist Name Role Phone Barbra Villalba Primary Care Pr ovider Reason for Visit * Reason Onset Date Comments Results 11/18/2018 Encounter Details Date Type Department Care Team (Late st Contact Info) Description 11/18/2018 Telephone [facility] [address] [place] [address] Paulina Dawson DO [address] [facility] [address] [place] [address] Results Social History Tobacco Use Types Packs/Day Years [...] encounter Miscellaneous Notes * Telephone Encounter - Paulina Dawson DO - 11/18/2018 11:46 AM CST Attempted to return call, no answer on work number. Home number is not accepting voicemails. Asked to return call if not feeling better. LACER JACQUARD documented in this encounter Plan of Treatment Not on file documented as of this encounter Visit Diagnoses Not on filedocumented in this encounter Care Teams Nutrient Management Specialist Relationship Specialty Start Date End Date Barbra Villalba PA [address] [place] [address] PCP - General 01/05/18 01/03/19 documented as of this encounter
--- OUTSIDE RECORDS SUMMARY | 2024-10-04 02:51 | XMS_ITS | Encounter Summary ---
Author Organization [facility] Address [address] [place] [address] Care Team Providers Care Bankman Name Role Phone Barbra Villalba Primary Care Pr ovider Encounter Details Date Type Department Care Team (Latest Contact Info) Description 02/28/2020 10:30 AM CDT Video Visit [facility] Rheumatology [address] [place] [address] Paulina Dawson DO [address] [place] [id number] Erosive osteoarthritis ; Vitamin D deficiency; Encounter for therapeutic drug monitoring; Joint swelling; Carcinoid tumor of stomach, unspecified whether malignant (HCC); Rheumatoid arthritis with negative rheumatoid factor, involving unspecified site (HCC) Social History Tobacco Use Types Packs/Day Years Used Date Smoking Tobacco: Former Cigarettes Q uit: 02/25/2000 Smokeless Tobacco: Never Alcohol Use Standard Drinks/Week Comments Yes 3 (1 standard drink = 0.6 oz pur e alcohol) Sex and Gender Information Value Date Recorded Sex Assigned at Not on file Gender Identity Not on file Sexual Orientation Not on file documented as of this encounter Patient Instructions * Patient Instructions* Paulina Dawson DO - 02/28/2020 10:29 AM CDT Increase hydroxychloroquine to 200 mg twice daily. Labs Follow up with oncology. We will discuss next steps after that appointment. If you need to change or cancel your Rheumatology appointment - At the [facility] at [address], [address], call [phone] If you need a refill request, have your pharmacy fax a request to [phone] If you need to leave a message for Dr. Dawson, you can send her an electronic message via [employer] a voicemail at [phone]. Her office FAX number is [phone]. For after hours emergency only, you can call the [facility] operator engineer at [phone] and ask for the Solid Waste Technician wagon person to be paged. documented in this encounter Progress Notes * Bessie Vail MD - 02/28/2020 10:35 AM CDT [facility] Rheumatology Telephone Note 02/28/2020 Patient Verification & Telephone Based Consent: I am proceeding with this evaluation at the direct request of the patient. I have verified this is the correct patient and have obtained verbal consent from the patient/surrogate to perform this voluntary telephone encounter evaluation. I have explained risks (including potential loss of confidentiality), benefits, alternatives, and the potential need for subsequent face to face care. Patient/ surrogate understands that there is a risk of medical inaccuracies given that our recommendations willbe made based on reported data. Knowing that there is a risk that this information is not reported accurately, and that the telemedicine audio, or data feed may be incomplete, the patient agrees to proceed with evaluation and holds us harmless knowing these risks. In this evaluation, we will be providing recommendations only. The patient/surrogate has been notified that other healthcare professionals (including students, residents and technical personnel) may be involved in this audio evaluation. All laws concerning confidentiality and patient access to medical records and copies of medical re cords apply to telemedicine. I have reviewed this above verification and consent paragraph with thepatient/surrogate. Diagnosis/Problem(s): 1. Erosive osteoarthritis 2. Vitamin D deficiency 3. Encounter for therapeutic drug monitoring 4. Joint swelling 5. Carcinoid tumor of stomach, unspecified whether malignant 6. Rheumatoid arthritis with negative rheumatoid factor, involving unspecified site Subjective: FABIOLA GIBSON ( 1965) is a 54 year old female who has completed a telephone encounter regarding erosive OA. History obtained from patient and review of prior medical records. I was present on line during entire visit. CC: patient reports having pain in her hands, feet and knee ( all her joints). She thinks HCQ not helping. She just finished taking prednisone ( feels better), she also found to have lump in her stomach and spot in her pancrease. A comprehensive 10 system ROS was reviewed. Pertinent positives and negatives are included above. The remainder of the 10 system ROS was negative. Objective: Assessment & Plan: Dr. Ballesteros's pt, previously FABIOLA GIBSON is a 54 year old female with erosive OA of hands and carcinoid tumors, s/p stomach surgery She has more joint pains -will increase HCQ 400 mg daily ( was on 300 mg daily, for her wt 354 mg so rounded to 400 mg) Check labs to monitor toxicity of medicine Check labs to reevaluate Recommend eye exam every 12 months 2. Carcinoid tumor of the stomach, s/p surgery 3. Anemia F/u 4 months Encounter duration: 26 min Patient location: home Encounter performed using: telephone audio with fellow Dr. Dawson The plan was reviewed with the patient and she confirmed understanding of the plan and all follow-up steps. All aspects of patient's medical history were reviewed and updated as documented in Epic. Bessie Vail MD Professor of Internal Medicine See fellow's note for further details Orders Placed This Encounter ??? CBC WITH DIFFERENTIAL ??? COMPREHENSIVE METABOLIC PANEL ??? C-REACTIVE PROTEIN ??? ERYTHROCYTE SEDIMENTATION RATE ??? URINALYSIS W/MICROSCOPIC REFLEX TO CULTURE ??? hydroxychloroquine (PLAQUENIL) 200 MG tablet Sig: Take 1 tablet by mouth 2 times daily Dispense: 180 tablet Refill: 3 * Paulina Dawson DO - 02/28/2020 10:24 AM CDT Images from the original note were not included. Division of Adult & Pediatric Rheumatology Attending Physician: Dr. Vail Telephone Visit 02/28/2020 Patient Verification & Telemedicine Based Consent I am proceeding with this evaluation at the direct request of the patient. I have verified this is the correct patient and have obtained verbal consent from the patient/surrogate to perform this voluntary telemedicine encounter evaluation. I have explained risks (including potential loss of confiden tiality), benefits, alternatives, and the potential need for subsequent face to face care. Patient/surrogate understands that there is a risk of medical inaccuracies given that our recommendations will be made based on reported data. Knowing that there is a risk that this information is not reported accurately, and that the telemedicine audio, or data feed may be incomplete, the patient agrees toproceed with evaluation and holds us harmless knowing these risks. In this evaluation, we will be providing recommendations only. The patient/surrogate has been notified that other healthcare professionals (including students, residents and technical personnel) may be involved in this audio evaluation. All laws concerning confidentiality and patient access to medical records and copies of medicalrecords apply to telemedicine. I have reviewed this above verification and consent paragraph with the patient/surrogate. Diagnosis/Problem(s): 1. Erosive osteoarthritis 2. Vitamin D deficiency 3. Encounter for therapeutic drug monitoring 4. Joint swelling 5. Carcinoid tumor of stomach, unspecified whether malignant 6. Rheumatoid arthritis with negative rheumatoid factor, involving unspecified site PCP: [facility] Interval History: FABIOLA GIBSON ( 1965) is a 54 year old female who has completed a telehealth visit regarding follow up of erosive OA versus erosive seronegative RA. History obtained from patient, and review of prior medical records. ENCOUNTER WAS SWITCHED TO TELEPHONE ENCOUNTER. PATIENT WAS UNABLE TO CONNECT THROUGH SeeOn DUE TOISSUES WITH A POP-UP ALISSA. Patient reports that she has been having more joint pain and swelling. She is feeling very stiff inthe mornings and is having difficulty walking early on. She has pain in multiple joints (hands, feet, ankles, knees). She has swelling in her hands and feet. She is currently taking an old taper of prednisone and so she is currently pain free but is concerned about what will happen after she completes the course of prednisone. She is taking hydroxychloroquine 300 mg daily and takes tylenol PRN for pain. Since the partial gastrectomy, she has had some increased GERD symptoms. It is currently well controlled on PPI therapy. She recently had a CT scan for cancer surveillance and there is a new lesion in the head of the pancreas. She has an appointment on March 08 with her oncologist to discuss next steps. She also has a hernia, which may require surgery. Review of Systems: General: -fatigue, -fever, -wt loss, daily functioning not limited HEENT: -dry eyes, -dry mouth, -eye redness, -eye pain, -oral/nasal ulcers CV: -chest pain Resp: -cough, -SOB GI: -abd pain, -constipation, -nausea, -vomiting, -diarrhea, -blood/mucus : -urine changes, -dysuria, -hematuria MSK: -arthralgia, -myalgia, -swelling, -erythema, -warmth, -AM stiffness, -back pain Skin: -rash, -lesions, -hair loss, -Raynaud Neuro: -BRAND, -vision changes, -muscle weakness, -paresthesias Psych: -depression, -anxiety ROS otherwise negative Current Medications: Current Outpatient Medications Medication Sig Dispense Refill ??? buPROPion XL 24hr (WELLBUTRIN-XL) 150 MG tablet Take 150 mg by mouth once daily ??? cyanocobalamin (VITAMIN B-12) injection INJECT 1ML INTO THE MUSCLE UTD Q 30 DAYS ??? Ergocalciferol (VITAMIN D2) 2000 units Take 1 tablet by mouth once daily ??? escitalopram (LEXAPRO) 10 MG tablet Take 10 mg by mouth once daily ??? hydroxychloroquine (PLAQUENIL) 200 MG tablet Take 1 tablet by mouth 2 times daily 180 tablet 3 ??? losartan (COZAAR) 50 MG tablet Take 50 mg by mouth DAILY. (Patient not taking: Reported on 02/26/2020) ??? omeprazole (PRILOSEC) 20 MG capsule Take 20 mg by mouth daily before breakfast ??? pravastatin (PRAVACHOL) 40 MG tablet Take 40 mg by mouth DAILY. ??? predniSONE (DELTASONE) 5 MG tablet Take 20 mg (4 tab) for 3 days, 15 mg (3 tab) for 3 days, 10 mg (2 tab) for 3 days, 5 mg (1 tab) for 3 days. Reasons: Rheumatoid Arthritis 30 tablet 1 ??? valsartan-hydroCHLOROthiazide (DIOVAN HCT) 160-12.5 MG tablet No current facility-administered medications for this visit. Lab/Diagnostics: No recent labs available for review. Assessment: Fabiola Gibson??is a ??52 y.o.??female??with erosive osteoarthritis versus seronegative erosive RA and vitamin D deficiency. She has improved significantly??on HCQ monotherapy and vitamin Dreplacement but seems to have worsened recently with the dose decrease of the hydroxychloroquine. Currently taking an old taper of prednisone she had at home. She is up to date on her eye exam. Also with history of recurrent carcinoid tumor, follow with [facility] Heme/Onc. She currently has a new lesion in the head of the pancreas. Will follow up with patient after she meets with the oncologist to discuss logistics of treatment. ? Plan: 1. ??Increase hydroxychloroquine to 200 mg BID. 2. ??We recommend continued exercise, daily stretching. 3. Patient will have eye exam faxed to us. Needs regular eye exams every 6 months to 1 year. 4. ??Labs/Imaging Ordered: ??As below 5. ??Return to clinic in 6 months. Encounter duration: 28 min Patient/parent location: home Encounter performed using: Telephone The plan was reviewed with the patient and they confirmed understanding of the plan and all follow-up steps. All aspects of patient's medical history were reviewed and updated as documented in Epic. Attending physician Dr. Vail was present for entire video. Paulina Dawson DO Rheumatology Fellow [facility] Office: [phone] Orders Placed This Encounter ??? CBC WITH DIFFERENTIAL ??? COMPREHENSIVE METABOLIC PANEL ??? C-REACTIVE PROTEIN ??? ERYTHROCYTE SEDIMENTATION RATE ??? URINALYSIS W/MICROSCOPIC REFLEX TO CULTURE ??? hydroxychloroquine (PLAQUENIL) 200 MG tablet documented in this encounter Plan of Treatment Scheduled Orders Name Type Priority Associated Diagnoses Orde r Schedule CBC WITH DIFFERENTIAL Lab Routine Erosive osteoarthritis Vitamin D deficiency Encounter for therapeutic drug monitoring Joint swelling Carcinoid tumor of stomach, unspecified whether malignant (HCC) Rheumatoid arthritis with negative rheumatoid factor, involving unspecified site (HCC) Ordered: 02/28/2020 COMPREHENSIVE METABOLIC PANEL Lab Routine Erosive osteoarthritis Vitamin D deficiency Encounter for therapeutic drug monitoring Joint swelling Carcinoid tumor of stomach, unspecified whether malignant (HCC) Rheumatoid arthritis with negative rheumatoid factor, involving unspecified site (HCC) Ordered: 02/28/2020 C-REACTIVE PROTEIN Lab Routine Erosive osteoarthritis Vitamin D deficiency Encounter for therapeutic drug monitoring Joint swelling Carcinoid tumor of stomach, unspecified whether malignant (HCC) Rheumatoid arthritis with negative rheumatoid factor, involving unspecified site (HCC) Ordered: 02/28/2020 ERYTHROCYTE SEDIMENTATION RATE Lab Routine Erosive osteoarthritis Vitamin D deficiency Encounter for therapeutic drug monitoring Joint swelling Carcinoid tumor of stomach, unspecified whether malignant (HCC) Rheumatoid arthritis with negative rheumatoid factor, involving unspecified site (HCC) Ordered: 02/28/2020 URINALYSIS W/MICROSCOPIC REFLEX TO CULTURE Lab Routine Erosive osteoarthritis Vitamin D deficiency Encounter for therapeutic drug monitoring Joint swelling Carcinoid tumor of stomach, unspecified whether malignant (HCC) Rheumatoid arthritis with negative rheumatoid factor, involving unspecified site (HCC) Ordered: 02/28/2020 documented as of this encounter Visit Diagnoses Diagnosis Erosive osteoarthritis- Primary Osteoarthrosis involving, or with mention of more than one site, but not specified as generalized, site unspecified Vitamin D deficiency Encounter for therapeutic drug monitoring Joint swelling Effusion of joint, site unspecified Carcinoid tumor of stomach, unspecified whether malignant (HCC) Rheumatoid arthritis with negative rheumatoid factor, involving unspecified site (HCC) documented in this encounter Care Teams Bankman Relationship Specialty Start Date End Date Barbra Villalba PA [address] [place] [address] PCP - General 03/08/19 01/26/21 documented as of this encounter
--- OUTSIDE RECORDS SUMMARY | 2024-10-04 02:51 | XMS_ITS | Encounter Summary ---
Author Organization [facility] Address [address] [place] [address] Care Team Providers Care Glass Technician/Installer Name Role Phone Elizabeth Borrego PA-C Primary Care Provider [phone] Reason for Visit * Reason Onset Date Comments MEDICATION REFILL 08/20/2021 Encounter Details Date Type Department Care Team (Late st Contact Info) Description 08/20/2021 Refill [facility] [place] [id number] Yolanda Muniz MD No info available MEDICATION [...] encounter Miscellaneous Notes * Telephone Encounter - Maura Frausto - 08/20/2021 9:52 AM CDT Refill Request Fabiola Gibson ELIESER: 07.30.21Aug due: 11.26.21Aug scheduled: 11/26/2021 LRF: 6..21 Qty Disp: 180 # of refills: 1 Last eye exam 10.06.20 Allergies: No Known Allergies Pended Medication Order: [...] monitoring documented in this encounter Care Teams Glass Technician/Installer Relationship Specialty Start Date End Date Elizabeth Borrego PA-C PCP - General 01/27/21 documented as of this encounter
--- OUTSIDE RECORDS SUMMARY | 2024-10-04 02:51 | XMS_ITS | Encounter Summary ---
Author Organization [facility] Address [address] [place] [address] Care Team Providers Care Leather Products Supervisor Name Role Phone Elizabeth Borrego PA-C Primary Care Provider [phone] Reason for Visit * Reason Onset Date Comments MEDICATION REFILL 10/13/2022 Encounter Details Date Type Department Care Team (Late st Contact Info) Description 10/13/2022 Refill [facility] [address] [place] [address] Pavan Frias MD [facility] [place] [address] MEDICATION REFILL Social History Tobacco Use Types [...] encounter Miscellaneous Notes * Telephone Encounter - Kwasi Nielsen - 10/13/2022 10:53 AM CST Refill Request Fabiola Gibson ELIESER: 09/09/2022 NOV scheduled: 03/10/2023 LRF: 01/23/2022 Qty Disp:180 # of refills: 1 Allergies: No Known Allergies Pended Medication Order: Requested Prescriptions Pending Prescriptions Disp Refills ??? hydroxychloroquine (Plaquenil) 200 MG tablet 180 tablet 1 Sig: Take 1.5 (one and one-half) tablets by mouth once daily ACE FEEDER documented in this encounter Plan of Treatment Not on file documented as of this encounter Visit Diagnoses Diagnosis Erosive osteoarthritis Osteoarthrosis involving, or with mention of more than one site, but not specified as generalized, site unspecified Vitamin D deficiency Encounter for therapeutic drug monitoring documented in this encounter Care Teams Leather Products Supervisor Relationship Specialty Start Date End Date Elizabeth Borrego PA-C PCP - General 01/27/21 documented as of this encounter
--- OUTSIDE RECORDS SUMMARY | 2024-10-04 02:51 | XMS_ITS | Encounter Summary ---
Author Organization [facility] Address [address] [place] [address] Care Team Providers Care Ceramic Maker Demonstrator Name Role Phone Elizabeth Borrego PA-C Primary Care Provider [phone] Reason for Visit * Reason Comments Arthritis Encounter Details Date Type Department Care Team (Late st Contact Info) Description 11/26/2021 9:30 AM WALL MIRROR DEPARTMENT SUPERVISOR Office Visit [facility] [place] [address] Yolanda Muniz MD No info available Erosive osteoarthritis (Primary Dx); Rheumatoid arthritis with negative rheumatoid factor, involving unspecified site (HCC); Plantar fasciitis of right foot Social History Tobacco Use Types Packs/Day Years [...] on file Sexual Orientation Not on file COVID-19 Exposure Response Date Recorded In the last month, have you been in contact with someone who was confirmed or suspected to have Coronavirus / COVID-19? No / Unsure 11/26/2021 10:26 AM WALL MIRROR DEPARTMENT SUPERVISOR documented as of this encounter Last Filed Vital Signs Vital Sign Reading Time Taken Comments Blood Pressure 116/74 11/26/2021 9:33 AM WALL MIRROR DEPARTMENT SUPERVISOR Pulse - - Temperature - - Respiratory Rate - - Oxygen Saturation - - Inhaled Oxygen Concentration - - Weight 73 kg (161 lb) 11/26/2021 9:33 AM WALL MIRROR DEPARTMENT SUPERVISOR Height 162.6 cm (5' 4 ) 11/26/2021 9:33 AM WALL MIRROR DEPARTMENT SUPERVISOR Body Mass Index 27.64 11/26/2021 9:33 AM WALL MIRROR DEPARTMENT SUPERVISOR documented in this encounter Patient Instructions * Patient Instructions* Yolanda Muniz MD - 11/26/2021 9:47 AM WALL MIRROR DEPARTMENT SUPERVISOR Images from the original note were not included. Continue hydroxychloroquine 300 mg daily Follow up in [address] Muniz and Dr. Vail (Wednesday) If you need to change or cancel your Rheumatology appointment - At the [facility] ([facility]) at [address] [facility], call [phone]. If you need a refill request, have your pharmacy fax a request to [phone]. If you need to leave a message for Dr. Muniz, you can send her an electronic message via [employer] voicemail at [phone]. Her office FAX number is [phone]. For after hours emergency only, you can call the [facility] broke beater machine operator at [phone] and ask for the Shred[employer] environmental conservation professor to be paged. Patient Education Plantar Fasciitis Exercises WHAT YOU NEED TO KNOW: What do I need to know about plantar fasciitis exercises? Plantar fasciitis exercises help stretch your plantar fascia, calf muscles, and Achilles tendon. They also help strengthen the muscles that support your heel and foot. Exercises and stretching can help prevent plantar fasciitis from getting worse or coming back. How do I do plantar fasciitis exercises? Ask your healthcare provider when to start these exercisesand how often to do them. ?? Slant board stretch: Stand on a slanted board with your toes higher than your heel. Press your heel into the board. Keep your knee slightly bent. Hold this position for 1 minute. Repeat 5 times. ?? Heel stretch: Stand up straight with your hands on a wall. Place your injured leg slightly behind your other leg. Keep your heels flat on the floor, lean forward, and bend both knees. Hold for 30 seconds. ?? Calf stretch: Stand up straight with your hands on a wall. Step forward so that your uninjured foot is in front of your injured foot. Keep your front leg bent and your back leg straight. Gently lean forward until you feel your calf stretch. Hold for 30 seconds and then relax. ?? Seated plantar fascia stretch: Sit on a firm surface, such as the floor or a mat. Extend your legs out in front of you. Raise your injured foot a few inches off the ground. Keep your leg straight.Grab the toes of your injured foot and pull them toward you. With your other hand, feel your plantar fascia. You should feel it press outward. Hold for 30 seconds. If you cannot reach your toes, loopa towel or tie around your foot. Gently pull on the towel or tie and flex your toes toward you. ?? Heel raises: Stand on the injured leg. Raise your other leg off the ground. Hold onto a railing or wall for balance. Slowly rise up on the toes of your injured leg. Hold for 5 seconds. Slowly lower your heel to the ground. ?? Toe curls: Place a towel on the floor. Put your foot flat on the towel. Grab the towel with yourtoes by curling them around the towel. Lift the towel up with your toes. ?? Toe taps: Sit down and place your foot flat on the floor. Keep your heel on the floor. Point allyour toes up toward the ceiling. While the 4 smaller toes are pointed up, bend your big toe down and tap it on the ground. Do 10 to 50 taps. Point all 5 toes up toward the ceiling again. This time keep your big toe pointed up and tap the 4 smaller toes on the ground. Do 10 to 50 taps each time. When should I contact my healthcare provider? ?? Your pain and swelling increase. ?? You develop new knee, hip, or back pain. ?? You have questions or concerns about your condition or care. CARE AGREEMENT: You have the right to help plan your care. Learn about your health condition and how it may be treated. Discuss treatment options with your healthcare providers to decide what care you want to receive. You always have the right to refuse treatment. The above information is an educational administrator only. It is not intended as medical advice for individual conditions or treatments. Talk to your doctor, nurse or pharmacist before following any medical regimen to see if it is safe and effective for you. ?? Copyright [employer] 2020 Information is for End User's use only and may not be sold, redistributed or otherwise used for commercial purposes. All illustrations and images included in CareNotes?? are the copyrighted property of [employer]. or [employer] MIRROR DEPARTMENT SUPERVISOR documented in this encounter Progress Notes * Bessie Vail MD - 11/26/2021 10:02 AM CST Patient seen and examined with fellow Dr. Elise. Please see note for further details. I confirm history, exam, assessment and plan. In addition I note: Interval history: patient is 56 year old female with the h/o erosive OA , who reports having right heel pain. Has stiffness in her hands Exam: Vitals: 11/26/21 0933 BP: 116/74 Weight: 161 lb (73 kg) Height: 5' 4 (1.626 m) PIP's T0S0 DIP's T0S0 Right heel tenderness Heart: RRR Lungs: clear MS 5/5 all four extremities Labs reviewed: 10/29/21 wbc 3.7, CMP wnl Assessment/Plan: Dr. Ballesteros's patient previously Patient is 56 year old CF with Erosive OA of hands and carcinoid tumors, s/p stomach surgery, stable except for stiffness in her hands Recheck x-rays of hands Continue HCQ 300 mg po daily Check labs to monitor toxicity of medicine Recommend eye exam every 12 months ( last eye exam 10/06) 2. Carcinoid tumor of the stomach, s/p surgery 3. Anemia: improved 4. Wbc 3.7 F/u 6 months 11/26/2021 10:02 AM See fellow's note for further details Bessie Vail MD MIRROR DEPARTMENT SUPERVISOR * Yolanda Muniz MD - 11/26/2021 9:30 AM CST [facility] Rheumatology Followup Clinic Visit Referring Physician: Bessie Vail MD [address] [place] [address] PCP: Elizabeth Borrego PA-C Chief Complaint Patient presents with ??? 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 Last seen in clinic on 07/30/21. Since then, her joint pain is stable, mostly occurs in hands and feet and knees. Worse with weatherchanges but still manageable. She has no joint swelling (has had it in the past when first diagnosed with arthritis). AM stiffness lasts 15- 20 minutes. Doing well on HCQ. She has right heel pain in AM for 15-30 min, causes some pain to walk first thing in AM. Carpal tunnel improved, still using wrist splints at night PRN. NET/CTAP imaging with no progression, planning to get PET soon with oncologist. Current meds: HCQ 300 mg daily (~2012 - current, intermittently off) Tylenol PRN Last eye exam: 04/2021 ROS: General: -fatigue, -fever, -wt loss/gain, daily functioning not limited HEENT: -dry eyes, -dry mouth, -vision changes, -eye redness, -eye pain, - oral/nasal ulcers CV: -chest pain, -palpitations, - LE edema Resp: -cough, -SOB, -pleuritic pain GI: - dysphagia, - reflux, -abd pain, -constipation, -nausea, -vomiting, - diarrhea, -blood/mucus : -urine changes, -dysuria, -hematuria MSK: +arthralgia, -myalgia, -muscle weakness, +swelling, -erythema, -warmth, +AM stiffness, -back pain Skin: -rash, -lesions, -ulcers, -hair loss, -Raynaud, -acrocyanosis, -photosensitivity Neuro: -BRAND, -paresthesias Psych: Mood is generally good, -depression/anxiety ROS otherwise negative Past Medical/Surgical History: Past Medical History: Diagnosis Date ??? 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 HX C SECTION CLASSIC 1989 and 1991 ??? HX TUBAL LIGATION 2004 Social History: Social History Socioeconomic History ??? Marital status: Spouse name: Not on file ??? Number of children: Not on file ??? Years of education: Not on file ??? Highest education level: Not on file Occupational History ??? Not on file Tobacco Use ??? Smoking status: Former Smoker Quit date: 02/25/2000 Years since quittin.7 ??? Smokeless tobacco: Never Used Vaping Use ??? Vaping Use: Never used Substance and Sexual Activity ??? Alcohol use: Yes Alcohol/week: 3.0 standard drinks ??? Drug use: No ??? Sexual activity: Not on file Other Topics Concern ??? Not on file Social History Narrative ??? Not on file Social Determinants of Health Financial Resource Strain: Not on file Food Insecurity: Not on file Transportation Needs: Not on file Physical Activity: Not on file Stress: Not on file Social Connections: Not on file Intimate Partner Violence: Not on file Housing Stability: Not on file Family History: family history includes Arthritis - Osteo in her sister; Arthritis - Rheumatoid in her sister; CAD (Coronary Artery Disease) in her brother; Diabetes in her sister; Emphysema in her father; Heart Disease in her mother; Osteoporosis in her mother. Current Medications: Current Outpatient Medications Medication Sig [...] hydroxychloroquine (PLAQUENIL) 200 MG tablet Take 1.5 (one and one-half) tablets by mouth once daily 180 tablet 1 ??? octreotide (SANDOSTATIN) 100 MCG/ML injection 1 mL IM injection 10mg per pt. For malignant carcinoid tumor of stomach ??? pravastatin (PRAVACHOL) 40 MG tablet Take 40 mg by mouth DAILY. ??? valsartan-hydroCHLOROthiazide (DIOVAN HCT) 160-12.5 MG tablet No current facility-administered medications for this visit. Allergies: No Known Allergies Physical Exam: BP 116/74 Ht 5' 4 (1.626 m) Wt 161 lb (73 kg) BMI 27.64 kg/m2 General: normal, appears stated age Skin: Skin color, texture, turgor normal. No rashes or lesions HEENT: Normocephalic, without obvious abnormality, atraumatic conjunctivae/corneas clear. EOMI, no oral or nasal ulcers, moist mucus membranes, supple neck Lymphatic: No cervical, supraclavicular, axillary, or inguinal adenopathy Back: symmetric, no curvature Chest/Lungs: clear to auscultation bilaterally, normal respiratory effort Heart: RRR, normal S1 and S2, no murmur, no rub Abdomen: soft, non-tender. Bowel sounds normal. Neurologic: Grossly normal cranial nerves Musculoskeletal Exam: Hands HN, BNs, R 3rd/4th PIPs SfT1 Otherwise S0T0 Feet: R heel T1 (plantar fascia) Labs: Reviewed, including those as noted below No results found for this or any previous visit (from the past 2352 hour(s)). 10/29/21 ([facility]) CMP: CR, lFTs nl CBC: WBC 3.7 Diagnostics/health maintenance: XR hand and feet 02/2017: Impression: 1. Normal joint spaces of both feet. Small bilateral heel spurs. 2. Normal joint spaces of both hands. There is a small subchondral cyst or erosion within the left small finger metacarpal head. Assessment & Plan: 1. Erosive osteoarthritis 2. Rheumatoid arthritis with negative rheumatoid factor, involving unspecified site 3. 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 Will continue HCQ 300 mg daily for now and Tylneol PRN, her arthritis intermittently bothers her but manageable. Would like to repeat hand XRs as patient has not had any for 5 years and having some mild joint swelling/tenderness today, evaluate for any progression. Complaints of plantar fasciitis today ofright foot, recommend stretching exercises and orthotics. Avoiding NSAID 2/2 GI history. Carpal tunnel improved. Mild leukopenia stable and no concern for recent infections, recommend monitor with heme onc/PCP. - XR BL hands - Provide plantar fasciitis stretching exercises, recommended orthotics/inserts - Continue HCQ 300 mg daily - Continue Tylenol PRN - Continue annual eye exam to monitor drug toxicity (HCQ) - Continue wrist splint QHS for carpel tunnel - If worsening CTS, consider hand surgery referral RTC in 4-6 mo Yolanda Muniz MD Rheumatology Fellow Patient seen and examined with Dr. Vail. The following were ordered during this visit: Orders Placed This Encounter ??? XR HAND LEFT 3VW OR MORE Standing Status: Future Standing Expiration Date: 11/26/2022 Order Specific Question: Release to patient Answer: Immediate ??? XR HAND RIGHT 3VW OR MORE Standing Status: Future Standing Expiration Date: 11/26/2022 Order Specific Question: Release to patient Answer: Immediate MIRROR DEPARTMENT SUPERVISOR documented in this encounter Plan of Treatment Not on file documented as of this encounter Results * XR HAND RIGHT 3VW OR MORE (11/26/2021 10:44 AM WALL MIRROR DEPARTMENT SUPERVISOR) Anatomical Region Laterality Modality Wrist / Hand Radiographic Chanelle ging 11/26/2021 11:1 9 AM WALL MIRROR DEPARTMENT SUPERVISOR Impressions 11/26/2021 11:53 AM WALL MIRROR DEPARTMENT SUPERVISOR IMPRESSION: No significant arthritis. Dictated by John Cruz D.O. (Gameroom Technician) I, Dr. VLAD ORELLANA MD have personally reviewed and interpreted this examination/study. This report was electronically signed by VLAD ORELLANA MD ??on 11/26/2021 11:53 AM . Narrative 11/26/2021 11:53 AM WALL MIRROR DEPARTMENT SUPERVISOR EXAMINATION: XR HAND RIGHT 3VW OR MORE, XR HAND LEFT 3VW OR MORE HISTORY: M15.4: Erosive osteoarthritis M06.00: Rheumatoid arthritis with negative rheumatoid factor, involving unspecified site COMPARISON: Right left hand radiographs dated 02/24/2017. FINDINGS: Right: The osseous structures are intact and well aligned without acute fracture or dislocation. Chronic ossicle adjacent to the first carpometacarpal joint. The joint spaces are preserved. There is no erosion. No soft tissue swelling is present. Left: The osseous structures are intact and well aligned without acute fracture or dislocation. The joint spaces are preserved. Small ossicle or osteophyte at the first carpometacarpal joint. There is no erosion. Small cysts in the fifth metacarpal head and capitate. No soft tissue swelling is present. Procedure Note Vlad Orellana MD - 11/26/2021 EXAMINATION: XR HAND RIGHT 3VW OR MORE, XR HAND LEFT 3VW OR MORE HISTORY: M15.4: Erosive osteoarthritis M06.00: Rheumatoid arthritis with negative rheumatoid factor, involving unspecified site COMPARISON: Right left hand radiographs dated 02/24/2017. FINDINGS: Right: The osseous structures are intact and well aligned without acutefracture or dislocation. Chronic ossicle adjacent to the first carpometacarpal joint. The joint spaces are preserved. There is no erosion. No softtissue swelling is present. Left: The osseous structures are intact and well aligned without acutefracture or dislocation. The joint spaces are preserved. Small ossicle or osteophyte at the first carpometacarpal joint. There is no erosion.Small cysts in the fifth metacarpal head and capitate. No soft tissue swelling is present. IMPRESSION: No significant arthritis. Dictated by John Cruz D.O. (Gameroom Technician) Dr. VLAD Staley MD have personally reviewed and interpreted this examination/study. This report was electronically signed by VLAD ORELLANA MD on11/26/2021 11:53 AM . Bessie Vail MD DIAGNOSTIC CHANELLE GING ORDERABLES * XR HAND LEFT 3VW OR MORE (11/26/2021 10:44 AM WALL MIRROR DEPARTMENT SUPERVISOR) Anatomical Region Laterality Modality Wrist / Hand Radiographic Chanelle ging 11/26/2021 11:1 9 AM WALL MIRROR DEPARTMENT SUPERVISOR Impressions 11/26/2021 11:53 AM WALL MIRROR DEPARTMENT SUPERVISOR IMPRESSION: No significant arthritis. Dictated by John Cruz D.O. (Gameroom Technician) Luís, Dr. VLAD ORELLANA MD have personally reviewed and interpreted this examination/study. This report was electronically signed by VLAD ORELLANA MD ??on 11/26/2021 11:53 AM . Narrative 11/26/2021 11:53 AM WALL MIRROR DEPARTMENT SUPERVISOR EXAMINATION: XR HAND RIGHT 3VW OR MORE, XR HAND LEFT 3VW OR MORE HISTORY: M15.4: Erosive osteoarthritis M06.00: Rheumatoid arthritis with negative rheumatoid factor, involving unspecified site COMPARISON: Right left hand radiographs dated 02/24/2017. FINDINGS: Right: The osseous structures are intact and well aligned without acute fracture or dislocation. Chronic ossicle adjacent to the first carpometacarpal joint. The joint spaces are preserved. There is no erosion. No soft tissue swelling is present. Left: The osseous structures are intact and well aligned without acute fracture or dislocation. The joint spaces are preserved. Small ossicle or osteophyte at the first carpometacarpal joint. There is no erosion. Small cysts in the fifth metacarpal head and capitate. No soft tissue swelling is present. Procedure Note Vlad Orellana MD - 11/26/2021 EXAMINATION: XR HAND RIGHT 3VW OR MORE, XR HAND LEFT 3VW OR MORE HISTORY: M15.4: Erosive osteoarthritis M06.00: Rheumatoid arthritis with negative rheumatoid factor, involving unspecified site COMPARISON: Right left hand radiographs dated 02/24/2017. FINDINGS: Right: The osseous structures are intact and well aligned without acutefracture or dislocation. Chronic ossicle adjacent to the first carpometacarpal joint. The joint spaces are preserved. There is no erosion. No softtissue swelling is present. Left: The osseous structures are intact and well aligned without acutefracture or dislocation. The joint spaces are preserved. Small ossicle or osteophyte at the first carpometacarpal joint. There is no erosion.Small cysts in the fifth metacarpal head and capitate. No soft tissue swelling is present. IMPRESSION: No significant arthritis. Dictated by John Cruz D.O. (Gameroom Technician) I, Dr. VLAD ORELLANA MD have personally reviewed and interpreted this examination/study. This report was electronically signed by VLAD ORELLANA MD on11/26/2021 11:53 AM . Bessie Vail MD DIAGNOSTIC CHANELLE GING ORDERABLES documented in this encounter Visit Diagnoses Diagnosis Erosive osteoarthritis- Primary Osteoarthrosis involving, or with mention of more than one site, but not specified as generalized, site unspecified Rheumatoid arthritis with negative rheumatoid factor, involving unspecified site (HCC) Plantar fasciitis of right foot Plantar fascial fibromatosis Erosive osteoarthritis Osteoarthrosis involving, or with mention of more than one site, but not specified as generalized, site unspecified Rheumatoid arthritis with negative rheumatoid factor, involving unspecified site (HCC) documented in this encounter Care Teams Ceramic Maker Demonstrator Relationship Specialty Start Date End Date Elizabeth Borrego PA-C PCP - General 01/27/21 documented as of this encounter
--- OUTSIDE RECORDS SUMMARY | 2024-10-04 02:51 | XMS_ITS | Encounter Summary ---
Author Organization [facility] Address [address] [place] [address] Care Team Providers Care Export Documents Clerk Name Role Phone Barbra Villalba Primary Care Pr ovider Reason for Visit * Reason Onset Date Comments Procedure 01/03/2019 Eus,Neuroendocri ne tumor, Dr. Spencer Encounter Details Date Type Department Care Team (Late st Contact Info) Description 01/03/2019 Telephone [facility] [address] [place] [address] Leyla Castillo Procedure (Eus,Neuroendocrine tumor, Dr. Spencer) Social History Tobacco Use Types Packs/Day Years [...] encounter Miscellaneous Notes * Telephone Encounter - Leyla Castillo - 01/03/2019 9:10 AM CDT Pt confirmed procedure appointment 02/14/19 @ 1030 am @ [facility]. Verbalized understanding of prep instructions including NPO after midnight. Will arrive 1 hour prior to procedure time. Has entry driver operator and hasno further questions at this time. This pt is not taking blood thinning medications and has been instructed to hold OTC blood thinners for 5 days prior to procedure other than Aspirin 81mg, which is ok to continue. documented in this encounter Plan of Treatment Not on file documented as of this encounter Visit Diagnoses Diagnosis Neuroendocrine tumor (HCC)- Primary Benign carcinoid tumor of unknown primary site documented in this encounter Care Teams Export Documents Clerk Relationship Specialty Start Date End Date Barbra Villalba PA [address] [place] [address] PCP - General 01/05/18 01/03/19 documented as of this encounter
--- OUTSIDE RECORDS SUMMARY | 2024-10-04 02:51 | XMS_ITS | Encounter Summary ---
Author Organization [facility] Address [address] [place] [address] Care Team Providers Care Cone Picker Name Role Phone Elizabeth Borrego PA-C Primary Care Provider [phone] Reason for Visit * Reason Onset Date Comments Med Question 05/19/2023 Encounter Details Date Type Department Care Team (Late st Contact Info) Description 05/19/2023 Telephone [facility] - Rheumatology [address] [place] [address] [place] [id number] Pavan Frias MD [facility] [place] [address] Med Question Social History Tobacco Use Types Packs/Day Years [...] encounter Miscellaneous Notes * Telephone Encounter - Pavan Frias MD - 05/19/2023 5:36 PM CDT Called and left a message for the patient after her [employer] message. Sent following [employer] reply, Thanks for the update Ms. Gibson. I called and left a message for you. You can reply to this message or call back office tomorrow and I will try to find a time tomorrow to call you back to discuss further Thanks Dr. Frias documented in this encounter Plan of Treatment Not on file documented as of this encounter Visit Diagnoses Not on filedocumented in this encounter Care Teams Cone Picker Relationship Specialty Start Date End Date Elizabeth Borrego, PAChalinoC PCP - General 01/27/21 documented as of this encounter
--- OUTSIDE RECORDS SUMMARY | 2024-10-04 02:51 | XMS_ITS | Encounter Summary ---
Author Organization [facility] Address [address] [place] [address] Care Team Providers Care Wax Room Supervisor Name Role Phone Noam Huizar MD Primary Care Provider [phone] Reason for Referral * Radiology Services (Routine) - Closed Specialty Diagnoses / Procedures Referred By Contac t Referred To Contact Radiology Diagnoses Carcinoid tumor (HCC) Procedures PET CT GA68 SKULL TO MID THIGH PET CT FLUCICLOVINE SKULL TO THIGH Sebastien Martinez DO [address] [place] [address] [facility] [address] [place] [address] Referral ID Status Reason Start Date Expiration Date Visits Re quested Visits Authorized [id number] Closed 01/20/2019 07/19/2019 1 1 Reason for Visit * Radiology Services (Routine) - Closed Specialty Diagnoses / Procedures Referred By Contac t Referred To Contact Radiology Diagnoses Carcinoid tumor (HCC) Procedures PET CT GA68 SKULL TO MID THIGH PET CT FLUCICLOVINE SKULL TO THIGH Sebastien Martinez DO [address] [place] [address] [facility] [address] [place] [address] Referral ID Status Reason Start Date Expiration Date Visits Re quested Visits Authorized [id number] Closed 01/20/2019 07/19/2019 1 1 Encounter Details Date Type Department Care Team (Latest Contact Info) Description 02/07/2019 6:33 AM CDT - 02/07/2019 7:08 AM CDT Hospital Encounter [facility] PET [address] [place] [address] Sebastien Martinez DO [address] [address] Discharge Disposition: Home or Self Care Social History Tobacco Use Types Packs/Day Years Used Date Smoking Tobacco: Former Cigarettes Q uit: 02/25/2000 Smokeless Tobacco: Never Alcohol Use Standard Drinks/Week Comments Yes 3 (1 standard drink = 0.6 oz pur e alcohol) Sex and Gender Information Value Date Recorded Sex Assigned at Not on file Gender Identity Not on file Sexual Orientation Not on file documented as of this encounter Medications at Time of Discharge Medication Sig Dispensed Refills Start Date End Date pravastatin (PRAVACHOL) 40 MG tablet Take 40 mg by mouth DAILY. 02/07/2017 buPROPion XL 24hr (WELLBUTRIN-XL) 300 MG tablet Take 300 mg by mouth Every Morning. 01/05/2018 03/08/2019 ergocalciferol (DRISDOL) 44452 UNITS capsuleIndications:Ero sive osteoarthritis,Vitamin D deficiency,Encounter for therapeutic drug monitoring Take 1 capsule by mouth every 7 days 12 capsule 07/20/2018 03/08/2019 hydroxychloroquine (PLAQUENIL) 200 MG tabletIndications:[place] avery osteoarthritis,Vitamin D deficiency,Encounter for therapeutic drug monitoring Take 1 tablet by mouth 2 times daily 60 tablet 01/30/2019 03/08/2019 losartan (COZAAR) 50 MG tablet Take 50 mg by mouth DAILY. 02/03/2017 01/29/2021 metoprolol succinate XL 24hr (TOPROL XL) 100 MG tablet Take 100 mg by mouth DAILY. 02/07/2017 09/06/2019 naproxen (NAPROSYN) 500 MG tablet Take 1 tablet by mouth 2 times daily 60 tablet 1 11/11/2018 03/08/2019 predniSONE (DELTASONE) 5 MG tabletIndications:Rheu matoid Arthritis Take 20 mg (4 tab) for 3 days, 15 mg (3 tab) for 3 days, 10 mg (2 tab) for 3 days, 5 mg (1 tab) for 3 days. Reasons: Rheumatoid Arthritis 30 tablet 12/06/2018 03/08/2019 documented as of this encounter Plan of Treatment Not on file documented as of this encounter Procedures Procedure Name Priority Date/Time Associated Diagnosis Comments PET CT GA68 SKULL TO MID THIGH Routine 02/07/2019 8:54 AM CDT Carcinoid tumor (HCC) documented in this encounter Results * PET CT GA68 SKULL TO MID THIGH (02/07/2019 8:54 AM CDT) Anatomical Region Laterality Modality Head, Lower Extremity Positron E mission Tomography (PET) 02/07/2019 9:33 AM CDT Impressions 02/07/2019 3:23 PM CDT IMPRESSION: 1. Focus of abnormal uptake in the pancreatic head, consistent with neuroendocrine tumor. 2. No additional foci of abnormal uptake. Dictated by Rolando Louise MD (residential property consultant) This report was approved ??by Art Louise ?? on 02/07/2019 10:18 AM . I, Dr. NAY LARRY M.D. have personally reviewed and interpreted this examination/study. This report was electronically signed by NAY LARRY M.D. ??on 02/07/2019 3:23 PM . Narrative 02/07/2019 3:23 PM CDT Procedure: Neuroendocrine PET/CT Study. Referring Physician: Dr. Martinez HISTORY: 53-year-old female with neuroendocrine tumor. Evaluate for initial treatment strategy. TECHNIQUE: ??3.96 mCi of Ga-68 NETSPOT by IV in the right antecubital fossa. PET/CT image acquisition from top of the head to the feet after approximately ??90 minutes post-injection with the CT being low-dose, non-contrast. No separate report for the CT was used for attenuation correction and anatomic localization. Patient's height 161.3 cm; weight 156 lb. FINDINGS: No prior study is available for comparison. Head and neck: Physiologic radiotracer activity is seen in the pituitary, thyroid and salivary glands. No abnormal radiotracer focus is present. Chest: No abnormal radiotracer focus is present. The lungs are clear of focal consolidation. No pleural effusion or pneumothorax is identified. The heart size is normal. No pericardial effusion is seen. There is no mediastinal, hilar, supraclavicular, or axillary lymphadenopathy. Abdomen and pelvis: There is a focus of abnormal uptake in the pancreatic head, measuring 1.5 cm, with an SUV max of 13.1, consistent with neuroendocrine tumor. Physiologic radiotracer activity is seen in the liver, kidneys, adrenal glands, and spleen. For reference, SUV max of liver is 8.1. Musculoskeletal: No abnormal radiotracer focus is present. Procedure Note Nay Larry MD - 02/07/2019 Procedure: Neuroendocrine PET/CT Study. Referring Physician: Dr. Martinez HISTORY: 53-year-old female with neuroendocrine tumor. Evaluate for initial treatment strategy. TECHNIQUE: 3.96 mCi of Ga-68 NETSPOT by IV in the right antecubital fossa. PET/CT image acquisition from top of the head to the feet after approximately 90 minutes post-injection with the CT being low-dose, non-contrast. No separate report for the CT was used for attenuation correction and anatomic localization. Patient's height 161.3 cm; weight 156 lb. FINDINGS: No prior study is available for comparison. Head and neck: Physiologic radiotracer activity is seen in thepituitary, thyroid and salivary glands. No abnormal radiotracer focus is present. Chest: No abnormal radiotracer focus is present. The lungs are clear of focal consolidation. No pleural effusion or pneumothorax is identified. The heart size is normal. No pericardial effusion is seen. There is no mediastinal, hilar, supraclavicular, or axillary lymphadenopathy. Abdomen and pelvis: There is a focus of abnormal uptake in thepancreatic head, measuring 1.5 cm, with an SUV max of 13.1, consistent with neuroendocrine tumor. Physiologic radiotracer activity is seen in the liver, kidneys, adrenal glands, and spleen. For reference, SUV max of liver is 8.1. Musculoskeletal: No abnormal radiotracer focus is present. IMPRESSION: 1. Focus of abnormal uptake in the pancreatic head, consistent with neuroendocrine tumor. 2. No additional foci of abnormal uptake. Dictated by Rolando Louise MD (residential property consultant) This report was approved by Art Louise on 02/07/2019 10:18 AM . I, Dr. NAY LARRY M.D. have personally reviewed and interpreted this examination/study. This report was electronically signed by NAY LARRY M.D. on02/07/2019 3:23 PM . Sebastien Troncosonti DO BARON ORDERABLES documented in this encounter Visit Diagnoses Diagnosis Carcinoid tumor (HCC) Benign carcinoid tumor of unknown primary site documented in this encounter Administered Medications Inactive Administered Medications - up to 3 most recent administrations Medication Order MAR Action Action Date Dose Rate Site Ga-68 gallium dotatate (NETSPOT) injection 3.96 millicurie 3.96 millicurie, Intravenous, ONCE, 1 dose, On Wed02/07/19 at 0715 $ Given 02/07/2019 6:52 AM CDT 3.96 millicuries documented in this encounter Care Teams Wax Room Supervisor Relationship Specialty Start Date End Date Noam Huizar MD [address] [place] [address] PCP - General 01/04/19 03/07/19 documented as of this encounter
--- OUTSIDE RECORDS SUMMARY | 2024-10-04 02:51 | XMS_ITS | Encounter Summary ---
Author Organization [facility] Address [address] [facility] [place] [address] Care Team Providers Care Academic Specialist Name Role Phone Elizabeth Borrego PA-C Primary Care Provider [phone] Reason for Visit * Reason Onset Date Comments Med Question 03/29/2023 Encounter Details Date Type Department Care Team (Late st Contact Info) Description 03/29/2023 Telephone [facility] - Rheumatology [address] [place] [address] [place] [phone] Pavan Frias MD [facility] [place] [facility] [place] [address] Med Question Social History Tobacco Use [...] Exposure Response Date Recorded In the last 10 days, have yo u been in contact with someone who was confirmed or suspected to have Coronavirus/COVID-19? No / Unsure 03/10/2023 12:22 PM CDT documented as of this encounter Miscellaneous Notes * Telephone Encounter - Pavan Frias MD - 03/29/2023 3:40 PM CDT Called and left a message or the patient. documented in this encounter Plan of Treatment Not on file documented as of this encounter Visit Diagnoses Not on filedocumented in this encounter Care Teams Academic Specialist Relationship Specialty Start Date End Date Elizabeth Borrego PA-C PCP - General 01/27/21 documented as of this encounter
--- OUTSIDE RECORDS SUMMARY | 2024-10-04 02:51 | XMS_ITS | Encounter Summary ---
Author Organization [facility] Address [address] [place] [address] Care Team Providers Care Lacing Operator Name Role Phone Elizabeth Borrego PA-C Primary Care Provider [phone] Encounter Details Date Type Department Care Team (Late st Contact Info) Description 05/26/2023 Orders Only [facility] - Rheumatology [address] [facility] [place] [phone] Pavan Frias MD [address] [place] [address] Social History Tobacco Use Types Packs/Day Years [...] on filedocumented in this encounter Care Teams Lacing Operator Relationship Specialty Start Date End Date Elizabeth Borrego PA-C PCP - General 01/27/21 documented as of this encounter
--- OUTSIDE RECORDS SUMMARY | 2024-10-04 02:51 | XMS_ITS | Encounter Summary ---
Author Organization [facility] Address [address] [place] [address] Care Team Providers Care Assistant Kitchen Manager Name Role Phone Elizabeth Borrego PA-C Primary Care Provider [phone] Encounter Details Date Type Department Care Team (Latest Contact Info) Description 03/10/2023 Travel Social History Tobacco Use Types Packs/Day Years [...] PM CDT documented as of this encounter Plan of Treatment Not on file documented as of this encounter Visit Diagnoses Not on filedocumented in this encounter Care Teams Assistant Kitchen Manager Relationship Specialty Start Date End Date Elizabeth Borrego PA-C PCP - General 01/27/21 documented as of this encounter
--- OUTSIDE RECORDS SUMMARY | 2024-10-04 02:51 | XMS_ITS | Encounter Summary ---
Author Organization [facility] Address [address] [place] [address] Care Team Providers Care Marine Engineering Professor Name Role Phone Barbra Villalba Primary Care Pr ovider Noam Huizar MD Primary Care Provider [phone] Barbra Villalba Primary Care Pr ovider Reason for Visit * Reason Onset Date Comments Change In Condition/behavior 11/09/2018 Encounter Details Date Type Department Care Team (Late st Contact Info) Description 11/09/2018 Telephone [facility] [address] [place] [address] Paulina Dawson DO [address] [place] [address] Change In Condition/behavior Social History Tobacco Use Types Packs/Day Years [...] encounter Miscellaneous Notes * Telephone Encounter - Faina Suarez - 11/09/2018 4:00 PM CST From . Patient states she has not felt well since [place] -having some inflammation/swelling behind knees and hands and fingers are swollen She is currently on generic Plaquenil and was wondering if the medication wasn't effective or if she is in a flare.She would appreciate a call back, (Cell) [phone] or (Work) [phone].//KB OL PSYCHOLOGICAL EXAMINER documented in this encounter Plan of Treatment Not on file documented as of this encounter Visit Diagnoses Not on filedocumented in this encounter Care Teams Marine Engineering Professor Relationship Specialty Start Date End Date Barbra Villalba PA [address] [place] [phone] PCP - General 01/05/18 01/03/19 Noam Huizar MD [address] [place] [phone] PCP - General 01/04/19 03/07/19 Barbra Villalba PA [address] [place] [phone] PCP - General 03/08/19 01/26/21 documented as of this encounter
--- OUTSIDE RECORDS SUMMARY | 2024-10-04 02:51 | XMS_ITS | Encounter Summary ---
Author Organization [facility] Address [address] [facility] [place] [address] Care Team Providers Care Electrical And Radio Mechanic Name Role Phone Elizabeth Borrego PA-C Primary Care Provider [phone] Reason for Visit * Reason Onset Date Comments Med Question 05/25/2023 Encounter Details Date Type Department Care Team (Late st Contact Info) Description 05/25/2023 Telephone [facility] - Rheumatology [address] [place] [address] [place] [phone] Pavan Frias MD [facility] [place] [place] [address] Med Question Social History Tobacco Use [...] Telephone Encounter - Pavan Frias MD - 05/25/2023 11:35 AM CDT Called the patient twice and left voice message. Sent following 3D Hubshart message, Arthur, I discussed with Dr. Vail. We would like to repeat the entire autoimmune work up done in 2017 to re-evaluate any underlying autoimmune/ inflammatory disease as it has been long. Depending on labs, might consider trial of Methotrexate if needed. Please let me know which lab and address that you would like to get the labs at so that we can fax it there. Also, was there any lab tests done on the fluid they aspirated earlier ? Dr. Frias documented in this encounter Plan of Treatment Not on file documented as of this encounter Visit Diagnoses Not on filedocumented in this encounter Care Teams Electrical And Radio Mechanic Relationship Specialty Start Date End Date Elizabeth Borrego PA-C PCP - General 01/27/21 documented as of this encounter
--- OUTSIDE RECORDS SUMMARY | 2024-10-04 02:51 | XMS_ITS | Encounter Summary ---
Author Organization [facility] Address [address] [place] [address] Care Team Providers Care Card Fixer Name Role Phone Noam Huizar MD Primary Care Provider [phone] Reason for Visit * Radiology Services (Routine) - Closed Specialty Diagnoses / Procedures Referred By Contac t Referred To Contact Radiology Diagnoses Carcinoid tumor (HCC) Procedures PET CT GA68 SKULL TO MID THIGH PET CT FLUCICLOVINE SKULL TO THIGH Sebastien Martinez DO [address] [place] [address] [facility] [address] [place] [address] Referral ID Status Reason Start Date Expiration Date Visits Re quested Visits Authorized [id number] Closed 01/20/2019 07/19/2019 1 1 Encounter Details Date Type Department Care Team (Latest Contact Info) Description 02/07/2019 7:09 AM CDT - 02/07/2019 11:59 PM CDT Hospital Encounter [facility] PET [address] [place] [phone] Sebastien Martinez DO [address] [place] [id number] Discharge Disposition: Home or Self Care Social [...] mouth Every Morning. 01/05/2018 03/08/2019 ergocalciferol (DRISDOL) 40102 UNITS capsuleIndications:Ero sive osteoarthritis,Vitamin D deficiency,Encounter for therapeutic drug monitoring Take 1 capsule by mouth every 7 days 12 capsule 07/20/2018 03/08/2019 hydroxychloroquine (PLAQUENIL) 200 MG tabletIndications:[place] avery osteoarthritis,Vitamin D deficiency,Encounter for therapeutic drug [...] uptake. Dictated by Rolando Louise MD (residential therapist) This report was approved ??by Art Louise [...] uptake. Dictated by Rolando Louise MD (residential therapist) This report was approved by Art Louise on 02/07/2019 10:18 AM . I, Dr. NAY LARRY M.D. have personally reviewed and interpreted this examination/study. This report was electronically signed by NAY LARRY M.D. on02/07/2019 3:23 PM . Sebastien ARCOS ORDERABLES documented in this encounter Visit Diagnoses Not on filedocumented in this encounter Care Teams Card Fixer Relationship Specialty Start Date End Date Noam Huizar MD [address] [place] [address] PCP - General 01/04/19 03/07/19 documented as of this encounter
--- OUTSIDE RECORDS SUMMARY | 2024-10-04 02:51 | XMS_ITS | Encounter Summary ---
Author Organization [facility] Address [address] [place] [address] Care Team Providers Care Poultry Pathologist Name Role Phone Barbra Villalba Primary Care Pr ovider Encounter Details Date Type Department Care Team (Late st Contact Info) Description 11/06/2019 Orders Only [facility] [address] [place] [address] Paulina Dawson, [address] [place] [phone] Social History Tobacco Use Types Packs/Day Years [...] on filedocumented in this encounter Care Teams Poultry Pathologist Relationship Specialty Start Date End Date Barbra Villalba PA [address] [place] [phone] PCP - General 03/08/19 01/26/21 documented as of this encounter
--- OUTSIDE RECORDS SUMMARY | 2024-10-04 02:51 | XMS_ITS | Encounter Summary ---
Author Organization [facility] Address [address] [place] [address] Care Team Providers Care Database Development Project Manager Name Role Phone Noam Huizar MD Primary Care Provider [phone] Reason for Visit * Reason Onset Date Comments Procedure 02/06/2019 Procedure Cancel lation Encounter Details Date Type Department Care Team (Late st Contact Info) Description 02/06/2019 Telephone [facility] [address] [place] [phone] Leyla Castillo Procedure (Procedure Cancellation) Social History Tobacco Use Types Packs/Day Years [...] * Telephone Encounter - Leyla Castillo - 02/06/2019 8:46 AM CDT Pt procedure cancelled due to pt contacting [facility] Endoscopy dept stating pt already had procedure done. * Telephone Encounter - Leyla Castillo - 02/06/2019 8:45 AM CDT ----- Message from Salome Lacy RN sent at 02/06/2019 8:40 AM CDT ----- Regarding: Cancel EUS on 02/14 Patient calls to cancel EUS on 02/14. Patient states she already had this done documented in this encounter Plan of Treatment Not on file documented as of this encounter Visit Diagnoses Not on filedocumented in this encounter Care Teams Database Development Project Manager Relationship Specialty Start Date End Date Noam Huizar MD [address] [place] [address] PCP - General 01/04/19 03/07/19 documented as of this encounter
--- OUTSIDE RECORDS SUMMARY | 2024-10-04 02:51 | XMS_ITS | Encounter Summary ---
Author Organization [facility] Address [address] [place] [address] Care Team Providers Care Software Lead Name Role Phone Elizabeth Borrego PA-C Primary Care Provider [phone] Reason for Visit * Reason Onset Date Comments MEDICATION REFILL 04/02/2021 Encounter Details Date Type Department Care Team (Late st Contact Info) Description 04/02/2021 Refill [facility] [place] [phone] Yolanda Muniz MD No info available MEDICATION [...] encounter Miscellaneous Notes * Telephone Encounter - Jana Brown RN - 04/02/2021 3:33 PM CDT Refill Request Fabiola Gibson ELIESER: 01/29/21 NOV scheduled: 07/30/2021 LRF: 02/28/20 Qty Disp: 180 tab # of refills: 3 Labs: 11/18/20 Eye exam: 09/2020 Allergies: No Known Allergies Pended Medication Order: Requested Prescriptions Pending Prescriptions Disp Refills ??? hydroxychloroquine (PLAQUENIL) 200 MG tablet 180 tablet 3 Sig: Take 1 (one) tablet by mouth 2 times daily documented in this encounter Plan of Treatment Not on file documented as of this encounter Visit Diagnoses Diagnosis Erosive osteoarthritis Osteoarthrosis involving, or with mention of more than one site, but not specified as generalized, site unspecified Vitamin D deficiency Encounter for therapeutic drug monitoring documented in this encounter Care Teams Software Lead Relationship Specialty Start Date End Date Elizabeth Borrego, CLEMENTINAC PCP - General 01/27/21 documented as of this encounter
--- OUTSIDE RECORDS SUMMARY | 2024-10-04 02:51 | XMS_ITS | Encounter Summary ---
Author Organization [facility] Address [address] [place] [address] Care Team Providers Care Material Movers Name Role Phone Elizabeth Borrego PA-C Primary Care Provider [phone] Encounter Details Date Type Department Care Team (Late st Contact Info) Description 03/08/2024 Lab Requisition [facility] - DermPath Lab [address] [facility], [place] [address] Chacha Schaefer, DO [address] [facility] [address] [place] [address] Social History Tobacco Use Types Packs/Day Years [...] Procedure Name Priority Date/Time Associated Diagnosis Comments DERMATOPATHOLOGY Routine 03/08/2024 10:5 7 AM CDT documented in this encounter Results * DERMATOPATHOLOGY (03/08/2024 10:57 AM CDT) Case Report Dermatopathology Report ? Case: [id number] ? Authorizing Provider: ??Chacha Schaefer, DO ?? Collected: ? 03/08/2024 10:57 AM ? Ordering Location: ? [facility] - ??Received: ?03/09/2024 09:41 AM ? DermPath Lab ? Pathologist: ? Quintin, Joy H, MD ? Specimens: ?? A) - Skin, left back ? B) - Skin, right anterior le ? C) - Skin, left anterior le ? 3:50 PM T DERMATOPATHOLOGY LABORATORY Final Diagnosis Specimen A. SKIN, left back: BASAL CELL CARCINOMA, INFILTRATIVE PATTERN (C44.519) Specimen B. SKIN, right anterior le: SUPERFICIAL PERIVASCULAR LYMPHOCYTIC INFILTRATE (L98.9) (see microscopic description) Specimen C. SKIN, left anterior le: BASAL CELL CARCINOMA, NODULAR TYPE (C44.719) 3:50 PM T DERMATOPATHOLOGY LABORATORY Clinical History A-C: R/O NMSC 3:50 PM T DERMATOPATHOLOGY LABORATORY Gross Description Specimen A: Received is one formalin filled container labeled with the patient's name and designated left back. The specimen consists of a shave biopsy measuring 9x8x1 mm. Jar 0. Specimen B: Received is one formalin filled container labeled with the patient's name and designated right anterior le. The specimen consists of a shave biopsy measuring 4x3x1 mm. Jar 0. Specimen C: Received is one formalin filled container labeled with the patient's name and designated left anterior le. The specimen consists of a shave biopsy measuring 8x7x1 mm. Jar 0. 3:50 PM T DERMATOPATHOLOGY LABORATORY Microscopic Description Specimen A. SKIN, left back: Within the dermis there are nodular aggregates of basaloid cells associated with fibromyxoid stroma and epithelial-stromal clefts. At the advancing margin of the neoplasm, there are smaller angulated nests that infiltrate the dermis. Specimen B. SKIN, right anterior le: In the dermis, there is a perivascular, mainly lymphohistiocytic inflammatory infiltrate. Additional deeper sections were obtained and reviewed. Specimen C. SKIN, left anterior le: Within the dermis there are aggregates of basaloid cells with a high nuclear to cytoplasmic ratio and peripheral palisading. 3:50 PM T DERMATOPATHOLOGY LABORATORY Disclaimer An external and internal positive and negative controls are appropriate for the histochemical, immunohistochemical and immunofluorescence stain(s) in this case (if any), except where stated explicitly. The performance characteristics of the stain(s) cited in this report were developed and its performance characteristic determined by the Dermatopathology Laboratory at [facility], directed by Dr. Ольга Conrad. These tests need not be, and therefore are not, approved by the [place] Food and Drug Administration. The tests are used for clinical purposes. Billing Codes Specimen Charges Stain Charges 46432 81837 05849 1 1 1 4 3:50 PM CDT DERMATOPATHOLOGY LABORATORY Embedded Images 4 3:50 PM CDT DERMATOPATHOLOGY LABORATORY Pathology/Cytology TISSUE SPECIMEN FROM SKIN / Unknown 03/08/2024 10:57 AM CDT 03/09/2024 9:41 AM CDT Miscellaneous samples (specimen) TISSUE SPECIMEN FROM SKIN / Unknown 03/08/2024 10:57 AM CDT 03/09/2024 9:41 AM CDT Miscellaneous samples (specimen) TISSUE SPECIMEN FROM SKIN / Unknown 03/08/2024 10:57 AM CDT 03/09/2024 9:41 AM CDT Chacha Schaefer DO LAB - PATHOLOGY/C YTOLOGY ORDERABLES Performing Organization Address City/State/[facility] Co de Phone Number DERMATOPATHOLOGY LABORATORY [facility] - Department of Dermatology [facility] Medicine [address] [place] [address], [address] [phone] documented in this encounter Visit Diagnoses Not on filedocumented in this encounter Care Teams Material Movers Relationship Specialty Start Date End Date Elizabeth Borrego PA-C PCP - General 01/27/21 documented as of this encounter
--- OUTSIDE RECORDS SUMMARY | 2024-10-04 02:51 | XMS_ITS | Encounter Summary ---
Author Organization [facility] Address [address] [place] [address] Care Team Providers Care Implementation Analyst Name Role Phone Elizabeth Borrego PA-C Primary Care Provider [phone] Encounter Details Date Type Department Care Team (Latest Contact Info) Description 11/26/2021 Travel Social History Tobacco Use Types Packs/Day [...] COVID-19? No / Unsure 11/26/2021 10:26 AM ICU STAFF NURSE documented as of this encounter Plan of Treatment Not on file documented as of this encounter Visit Diagnoses Not on filedocumented in this encounter Care Teams Implementation Analyst Relationship Specialty Start Date End Date Elizabeth Borrego PA-C PCP - General 01/27/21 documented as of this encounter
--- OUTSIDE RECORDS SUMMARY | 2024-10-04 02:51 | XMS_ITS | Encounter Summary ---
Author Organization [facility] Address [address] [place] [address] Care Team Providers Care Ledger Clerk Name Role Phone Elizabeth Borrego PA-C Primary Care Provider [phone] Encounter Details Date Type Department Care Team (Late st Contact Info) Description 07/30/2021 11:00 AM CDT Office Visit [facility] Rheumatology [facility] [place] [id number] Yolanda Muniz MD No info available Rheumatoid arthritis with negative rheumatoid factor, involving unspecified site (HCC) (Primary Dx); Need for influenza vaccination; Erosive osteoarthritis; Encounter for therapeutic drug monitoring; Encounter for long-term (current) use of high-risk medication Social History Tobacco Use Types Packs/Day Years [...] Sign Reading Time Taken Comments Blood Pressure 124/80 07/30/2021 11:18 AM CDT Pulse - - Temperature 36.1 ??C (97 ??F) 07/30/2021 11:18 AM CDT Respiratory Rate - - Oxygen Saturation - - Inhaled Oxygen Concentration - - Weight 72.6 kg (160 lb 2 oz) 07/30/2021 11:18 AM CDT Height 162.6 cm (5' 4 ) 07/30/2021 11:18 AM CDT Body Mass Index 27.49 07/30/2021 11:18 AM CDT documented in this encounter Patient Instructions * Patient Instructions* Yolanda Muniz MD - 07/30/2021 11:40 AM CDT - Continue hydroxychloroquine 300 mg daily - Continue Tylenol as needed - Continue eye exam at least once a year to monitor drug toxicity - Continue wrist brace/splint nightly for carpal tunnel syndrome Follow up in [address] Muniz and Dr. Vail (Wednesday) If you need to change or cancel your Rheumatology appointment - At the [facility] Medicine ([facility]) at [facility] [facility], call [phone]. If you need a refill request, have your pharmacy fax a request to [phone]. If you need to leave a message for Dr. Muniz, you can send her an electronic message via [employer] voicemail at [phone]. Her office FAX number is [phone]. For after hours emergency only, you can call the [facility] deflash and wash operator at [phone] and ask for the Assistant Department Manager manufacturing operations manager to be paged. documented in this encounter Progress Notes * Bessie Vail MD - 07/30/2021 11:43 AM CDT Patient seen and examined with fellow Dr. Elise. Please see note for further details. I confirm history, exam, assessment and plan. In addition I note: Interval history: patient is 56 year old female with the h/o erosive OA , who reports having numbness and tingling of her hands R>L, intermittently +AM stiffness 20-30 minutes Exam: Vitals: 07/30/21 1118 BP: 124/80 Temp: 97 ??F (36.1 ??C) Weight: 160 lb 2 oz (72.6 kg) Height: 5' 4 (1.626 m) T0S0 on exam No skin rash Heart: RRR Lungs: clear MS 5/ all four extremities Labs reviewed: , wbc 3.5 Assessment/Plan: Dr. 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 Carcinoid tumor of the stomach, s/p surgery 3. Anemia 4. Low WBC: ? Etiology, following with oncology F/u 6 months 08/04/2021 3:56 PM See fellow's note for further details Bessie Vail MD * Yolanda Muniz MD - 07/30/2021 11:00 AM CDT [facility] Rheumatology Followup Clinic Visit Referring Physician: Bessie Vail MD [address] [place] [address] PCP: Elizabeth Borrego PA-C No chief complaint on file. 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 Last seen in clinic on 01/29/21. Since then, reports some intermittent PIP swelling, stiffness in AM +30 min. Denies rashes. Also having numbness/tingling of BL hands, R>L, intermittently. Reports sister with RA. Current meds: HCQ 300 mg daily Tylenol PRN Last eye exam: 09/2020 ROS: General: -fatigue, -fever, -wt loss/gain, daily [...] Former Smoker Quit date: 02/25/2000 Years since quittin.4 ??? Smokeless tobacco: Never Used Vaping Use [...] Allergies: No Known Allergies Physical Exam: BP 124/80 (BP SITE: RIGHT ARM, BP POSITION: SITTING, BP CUFF SIZE: 10) Temp 97 ??F (36.1 ??C) (Oral) Ht 5' 4 (1.626 m) Wt 160 lb 2 oz (72.6 kg) BMI 27.49 kg/m2 General: normal, appears stated age Skin: [...] Neurologic: Grossly normal cranial nerves Musculoskeletal Exam: S0T0 throughout Hands HN, BNs Phalen + BL Negative Tinnel Labs: Reviewed, including those as noted below No results found for this or any previous visit (from the past 2352 hour(s)). 06/27/21 (CareEverywhere) CMP: Cr, LFTs nl CBC: WBC 3.5 Diagnostics/health maintenance: XR hand and feet 02/2017: Impression: 1. Normal joint spaces of both feet. Small bilateral heel spurs. 2. Normal joint spaces of both hands. There is a small subchondral cyst or erosion within the left small finger metacarpal head. Assessment & Plan: 1. 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 Will continue HCQ 300 mg daily for now and Tylneol PRN, her arthritis intermittently bothers her but manageable. For carpal tunnel, recommending wrist splint nightly for now, continue to monitor symptoms. May consider injection or surgery in future if worsening. Mild leukopenia stable and no concern for recent infections, recommend monitor with heme onc/PCP. - Continue HCQ 300 mg daily - Continue Tylenol PRN - Continue annual eye exam to monitor drug toxicity (HCQ) - Continue wrist splint QHS for carpel tunnel - If worsening CTS, consider hand surgery referral - Flu shot today RTC in 4 mo Yolanda Muniz MD Rheumatology Fellow Patient seen and examined with Dr. Vail. The following were ordered during this visit: Orders Placed This Encounter ??? FLU VACCINE (Flublok) QUAD RIV4 PF IM documented in this encounter Plan of Treatment Not on file documented as of this encounter Visit Diagnoses Diagnosis Rheumatoid arthritis with negative rheumatoid factor, involving unspecified site (HCC)- Primary Need for influenza vaccination Need for prophylactic vaccination and inoculation against influenza Erosive osteoarthritis Osteoarthrosis involving, or with mention of more than one site, but not specified as generalized, site unspecified Encounter for therapeutic drug monitoring Encounter for long-term (current) use of high-risk medication Encounter for long-term (current) use of other medications documented in this encounter Care Teams Ledger Clerk Relationship Specialty Start Date End Date Elizabeth Borrego PA-C PCP - General 01/27/21 documented as of this encounter
--- OUTSIDE RECORDS SUMMARY | 2024-10-04 02:51 | XMS_ITS | Patient Health Summary ---
Author Organization [facility] Address [address] [place] [address] Care Team Providers Care Lactation Coordinator Name Role Phone Elizabeth Borrego PA-C Primary Care Provider [phone] Note from [facility],non-owned Affiliates and Associated Physician Practices is amultiple site organization consisting of ambulatory clinics and hospital sitesin [place], [place], [place] and [place]. This disclosure is being madepursuant to the Care Everywhere program and may not contain all information available regarding this patient. Last updated 18.[facility] Allergies No known active allergies Medications * Be aware that medications may not be up to date on this document. Alwaysverify current medications with the patient. * pravastatin (PRAVACHOL) 40 MG tablet(Started 02/07/2017) Take 40 mg by mouth DAILY. 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 Active Problems No known active problems Immunizations * INFLUENZA(Given 07/22/2020, 08/06/2019) * INFLUENZA VACCINE, QUADR. (FLUZONE; FLULAVAL; FLUARIX; AFLURIA QUADRIVALENT; 6MO+), 0.5 ML (IIV4)(Given 07/20/2018) * iNFLUENZA VACCINE, RECOM-BRAND, QUADR. (FLUBLOCK QUADRIVALENT; 18Y+) (RIV4)(Given 07/30/2021) Social History Tobacco Use Types Packs/Day Years Used Date Smoking Tobacco: Former Cigarettes Q uit: 02/25/2000 Smokeless Tobacco: Never Tobacco Cessation:Counseling Given: Not Answered Alcohol Use Standard Drinks/Week Comments Yes 3 (1 standard drink = 0.6 oz pur e alcohol) PHQ-2 Answer Date Recorded PHQ2 TOTAL SCORE 0 11/26/2021 Sex and Gender Information Value Date Recorded Sex Assigned at Not on file Gender Identity Not on file Sexual Orientation Not on file Last Filed Vital Signs Vital Sign Reading Time Taken Comments Blood Pressure 120/58 03/10/2023 11:02 AM CDT Pulse 70 03/10/2023 11:02 AM CDT Temperature 36.4 ??C (97.5 ??F) 03/10/2023 11:02 AM C DT Respiratory Rate 16 02/24/2017 8:53 AM CDT Oxygen Saturation 97% 03/10/2023 11:02 AM CDT Inhaled Oxygen Concentration - - Weight 76.3 kg (168 lb 3.2 oz) 03/10/2023 11:02 AM CDT Height 162.6 cm (5' 4.02 ) 03/10/2023 11:02 AM C DT Body Mass Index 28.86 03/10/2023 11:02 AM CDT Procedures * DERMATOPATHOLOGY(Performed 03/08/2024) * EYE EXAM(Performed 09/17/2023) * DERMATOPATHOLOGY(Performed 02/10/2023) * DERMATOPATHOLOGY(Performed 12/23/2022) * EYE EXAM(Performed 10/15/2022) * XR HAND RIGHT 3VW OR MORE(Performed 11/26/2021) Performed for Erosive osteoarthritis, Rheumatoid arthritis with negative rheumatoid factor, involving unspecified site (HCC) * XR HAND LEFT 3VW OR MORE(Performed 11/26/2021) Performed for Erosive osteoarthritis, Rheumatoid arthritis with negative rheumatoid factor, involving unspecified site (HCC) * LAB RESULTS ORDER(Performed 07/14/2021) * LAB RESULTS ORDER(Performed 07/14/2021) * LAB RESULTS ORDER(Performed 07/14/2021) * LAB RESULTS ORDER(Performed 07/14/2021) * LAB RESULTS ORDER(Performed 07/14/2021) * LAB RESULTS ORDER(Performed 07/14/2021) * LAB RESULTS ORDER(Performed 03/28/2020) * PET CT GA68 SKULL TO MID THIGH(Performed 02/07/2019) Performed for Carcinoid tumor (HCC) * EYE EXAM(Performed 06/02/2018) * CBC W AUTO DIFFERENTIAL(Performed 08/12/2017) * ERYTHROCYTE SEDIMENTATION RATE(Performed 08/12/2017) * URINALYSIS W/MICROSCOPIC REFLEX TO CULTURE(Performed 08/12/2017) * COMPREHENSIVE METABOLIC PANEL(Performed 08/12/2017) * C-REACTIVE PROTEIN(Performed 08/12/2017) * COMPLEMENT C4(Performed 03/05/2017) * COMPLEMENT TOTAL(Performed 03/05/2017) * DNA ANTIBODY DS CRITHIDIA IFA(Performed 03/05/2017) * HISTONE ANTIBODY(Performed 03/05/2017) * SS-A (SJOGREN'S) ANTIBODY(Performed 03/05/2017) * SS-B (SJOGREN'S) ANTIBODY(Performed 03/05/2017) * RIBEIRO (SM) ANTIBODY EMELY(Performed 03/05/2017) * SOLAR DESIGNER ANTIBODY(Performed 03/05/2017) * RHEUMATOID ARTHRITIS PANEL(Performed 03/05/2017) * TSH(Performed 03/05/2017) * URINALYSIS W/MICROSCOPIC REFLEX TO CULTURE(Performed 03/05/2017) * CBC W AUTO DIFFERENTIAL(Performed 03/05/2017) * COMPREHENSIVE METABOLIC PANEL(Performed 03/05/2017) * C-REACTIVE PROTEIN(Performed 03/05/2017) * ERYTHROCYTE SEDIMENTATION RATE(Performed 03/05/2017) * VITAMIN D 25-HYDROXY(Performed 03/05/2017) * CENTROMERE B ANTIBODIES(Performed 03/05/2017) * EDWIN BLOOD SCREEN W/REFLEX TITER(Performed 03/05/2017) * DNA ANTIBODY DOUBLE STRANDED(Performed 03/05/2017) * SCLERODERMA 70 (SCL) ANTIBODY(Performed 03/05/2017) * COMPLEMENT C3(Performed 03/05/2017) * CHROMATIN ANTIBODY(Performed 03/05/2017) * XR FOOT LEFT 3VW OR MORE(Performed 02/24/2017) * XR FOOT RIGHT 3VW OR MORE(Performed 02/24/2017) * XR HAND LEFT 3VW OR MORE(Performed 02/24/2017) * XR HAND RIGHT 3VW OR MORE(Performed 02/24/2017) Results * DERMATOPATHOLOGY (03/08/2024 10:57 AM CDT) Only the most recent of3 resultswithin the time period is included. Case Report Dermatopathology Report ? Case: [id number] ? Authorizing Provider: ??Chacha Schaefer, DO ?? Collected: ? 03/08/2024 10:57 AM ? Ordering Location: ? [facility] - ??Received: ?03/09/2024 09:41 AM ? DermPath Lab ? Pathologist: ? Joy Ribeiro MD ? Specimens: ?? A) - Skin, left back ? B) - Skin, right anterior le ? C) - Skin, left anterior le ? 4 3:50 PM CDT DERMATOPATHOLOGY LABORATORY Final Diagnosis Specimen A. SKIN, left back: BASAL CELL CARCINOMA, INFILTRATIVE PATTERN (C44.519) Specimen B. SKIN, right anterior le: SUPERFICIAL PERIVASCULAR LYMPHOCYTIC INFILTRATE (L98.9) (see microscopic description) Specimen C. SKIN, left anterior le: BASAL CELL CARCINOMA, NODULAR TYPE (C44.719) 4 3:50 PM CDT DERMATOPATHOLOGY LABORATORY Clinical History A-C: R/O NMSC 4 3:50 PM CDT DERMATOPATHOLOGY LABORATORY Gross Description Specimen A: Received [...] shave biopsy measuring 8x7x1 mm. Jar 0. 4 3:50 PM CDT DERMATOPATHOLOGY LABORATORY Microscopic Description Specimen A. SKIN, [...] nuclear to cytoplasmic ratio and peripheral palisading. 4 3:50 PM CDT DERMATOPATHOLOGY LABORATORY Disclaimer An external and internal positive and negative controls are appropriate for the histochemical, immunohistochemical and immunofluorescence stain(s) in this case (if any), except where stated explicitly. The performance characteristics of the stain(s) cited in this report were developed and its performance characteristic determined by the Dermatopathology Laboratory at [facility], directed by Dr. Ольга Conrad. These tests need not be, and therefore are not, approved by the [place] Food and Drug Administration. The tests are used for clinical purposes. Billing Codes Specimen Charges Stain Charges 36185 [id number] 1 1 1 4 3:50 PM CDT [...] Schaefer DO LAB - PATHOLOGY/C YTOLOGY ORDERABLES DERMATOPATHOLOGY LABORATORY [facility] - Department of Dermatology [address], [address] [phone] * EYE EXAM (09/17/2023) Anatomical Region Laterality Modality Other Narrative 09/17/2023 Ordered by an unspecified provider. Scanned Document SCANNING ONLY * EYE EXAM (10/15/2022) Anatomical Region Laterality Modality Other 10/15/2022 Narrative 10/15/2022 Ordered by an unspecified provider. Scanned Document SCANNING ONLY * XR HAND RIGHT 3VW OR MORE (11/26/2021 10:44 AM MODELING TEACHER) Only the most recent of2 resultswithin the time period is included. Anatomical Region Laterality Modality Wrist / Hand Radiographic Chanelle ging 11/26/2021 11:1 9 AM MODELING TEACHER Impressions 11/26/2021 11:53 AM MODELING TEACHER IMPRESSION: No significant arthritis. Dictated by John Cruz D.O. (Exchange Operator) I, Dr. VLAD RUIZ MD have personally reviewed and interpreted this examination/study. This report was electronically signed by VLAD RUIZ MD ??on 11/26/2021 11:53 AM . Narrative 11/26/2021 11:53 AM MODELING TEACHER EXAMINATION: XR HAND RIGHT 3VW OR MORE, [...] tissue swelling is present. Procedure Note Vlad Ruiz MD - 11/26/2021 EXAMINATION: XR HAND RIGHT [...] significant arthritis. Dictated by John Cruz D.O. (Exchange Operator) Dr. VLAD Staley MD have personally reviewed and interpreted this examination/study. This report was electronically signed by VLAD RUIZ MD on11/26/2021 11:53 AM . Bessie Vail MD DIAGNOSTIC CHANELLE GING ORDERABLES * XR HAND LEFT 3VW OR MORE (11/26/2021 10:44 AM MODELING TEACHER) Only the most recent of2 resultswithin the time period is included. Anatomical Region Laterality Modality Wrist / Hand Radiographic Chanelle ging 11/26/2021 11:1 9 AM MODELING TEACHER Impressions 11/26/2021 11:53 AM MODELING TEACHER IMPRESSION: No significant arthritis. Dictated by John Cruz D.O. (Exchange Operator) Dr. VLAD Staley MD have personally reviewed and interpreted this examination/study. This report was electronically signed by VLAD RUIZ MD ??on 11/26/2021 11:53 AM . Narrative 11/26/2021 11:53 AM MODELING TEACHER EXAMINATION: XR HAND RIGHT 3VW OR MORE, [...] tissue swelling is present. Procedure Note Vlad Ruiz MD - 11/26/2021 EXAMINATION: XR HAND RIGHT [...] significant arthritis. Dictated by John Cruz D.O. (Exchange Operator) IDr. VLAD MD have personally reviewed and interpreted this examination/study. This report was electronically signed by VLAD RUIZ MD on11/26/2021 11:53 AM . Bessie Vail MD DIAGNOSTIC CHANELLE GING ORDERABLES * LAB RESULTS ORDER (07/14/2021) Only the most recent of7 resultswithin the time period is included. 07/14/2021 Narrative 07/14/2021 Ordered by an unspecified provider. Scanned Document LAB - THERAPEUTIC DR HUANG MONITORING ORDERABLES * PET CT GA68 SKULL TO MID THIGH (02/07/2019 8:54 AM CDT) Anatomical Region Laterality Modality Head, Lower Extremity Positron E mission Tomography (PET) 02/07/2019 9:33 AM CDT Impressions 02/07/2019 3:23 PM CDT IMPRESSION: 1. Focus of abnormal uptake in the pancreatic head, consistent with neuroendocrine tumor. 2. No additional foci of abnormal uptake. Dictated by Rolando Louise MD (medical transcription radiology) This report was approved ??by Art Louise [...] abnormal uptake. Dictated by Rolando Louise MD (medical transcription radiology) This report was approved by Art Louise on 02/07/2019 10:18 AM . I, Dr. NAY LARRY M.D. have personally reviewed and interpreted this examination/study. This report was electronically signed by NAY LARRY M.D. on02/07/2019 3:23 PM . Sebastien Martinez DO NM ORDERABLES * EYE EXAM (06/02/2018 1:49 PM CDT) Anatomical Region Laterality Modality Other Narrative 06/02/2018 1:49 PM CDT Ordered by an unspecified provider. Scanned Document SCANNING ONLY * (ABNORMAL) URINALYSIS W/MICROSCOPIC REFLEX TO CULTURE (08/12/2017 7:40 AM CDT) Only the most recent of2 resultswithin the time period is included. Color UA DARK YELLOW YELLOW [facility] Appearance CLOUDY(A) CLEAR [facility]) Specific [place] UA 1.026 1.001 - 1.035 [facility] pH Urine 5.5 5.0 - 8.0 [facility] Glucose UA NEGATIVE NEGATIVE [facility] Bilirubin UA NEGATIVE NEGATIVE [facility]) Ketone UA NEGATIVE NEGATIVE [facility] Blood UA NEGATIVE NEGATIVE [facility] Protein UA TRACE(A) NEGATIVE [facility] Nitrite UA NEGATIVE NEGATIVE [facility]) Leukocyte Esterase NEGATIVE NEGATIVE [facility] WBC Urine 6-10(A) < OR = 5 /HPF [facility] RBC Urine 3-10(A) < OR = 2 /HPF [facility] Squamous Epithelial Cells UA 20-40(A) < OR = 5 /HPF [facility] Bacteria UA NONE SEEN NONE SEEN /HPF [facility] Amorphous Sediment FEW NONE OR FEW /HPF [facility] Hyaline Casts UA NONE SEEN NONE SEEN /LPF [facility] Comment UA MANY MUCOUS THREADS [facility] Culture Urine Comprehensive CULTURE INDICATED - RESULTS TO FOLLOW [facility] Urine Culture Routine SEE NOTE [facility] Comment: ??CULTURE, URINE, ROUTINE ?MICRO NUMBER: ?[id number] ??TEST STATUS: ? FINAL ??SPECIMEN SOURCE: ?? URINE ??SPECIMEN QUALITY: ??ADEQUATE ??RESULT: ?Multiple organisms present, each less than 10,000 ? CFU/mL. These organisms, commonly found on ? external and internal genitalia, are considered ? to be colonizers. No further testing performed. Test Performed at: [facility] [id number] [place] [address] ??[phone] THOR GARCIA DO,MPH 08/12/2017 7:40 AM CDT 08/12/2017 7:41 AM CDT Swetha Ballesteros MD LAB - URINALYSIS ORD ERABLES Performing Organization Address [facility] [address]/ZIP Co de Phone Number [facility] * C-REACTIVE PROTEIN (08/12/2017 7:40 AM CDT) Only the most recent of2 resultswithin the time period is included. C-Reactive Protein 0.6 <8.0 mg/L [facility] Comment: REPORT COMMENT: ROUTE TO PCP, YADIRA BARNHART, ; SPECIMEN TYPE->U FASTING:YES Test Performed at: [facility] [place] [address] [place], [place] ??[phone] THOR GARCIA DO,MPH 08/12/2017 7:40 AM CDT 08/12/2017 7:41 AM CDT Swetha Ballesteros MD LAB - CHEMISTRY ORDE RABLES Performing Organization Address [facility] [address]/[facility] Phone Number [facility] * ERYTHROCYTE SEDIMENTATION RATE (08/12/2017 7:40 AM CDT) Only the most recent of2 resultswithin the time period is included. Erythrocyte Sedimentation Rate Westergren 8 < OR = 30 mm/h [facility] Comment: Test Performed at: [facility] ??[phone] ASHLY FLORES MD 08/12/2017 7:40 AM CDT 08/12/2017 7:41 AM CDT Swetha Ballesteros MD LAB - HEMATOLOGY ORD ERABLES Performing Organization Address [facility] [address]/ZIP Co de Phone Number [facility] * (ABNORMAL) CBC W AUTO DIFFERENTIAL (08/12/2017 7:40 AM CDT) Only the most recent of2 resultswithin the time period is included. Pathologist [facility] WBC 3.2(L) 3.8 - 10.8 Thousand/ uL [facility] RBC 4.24 3.80 - 5.10 Million/u L [facility] Hemoglobin 12.3 11.7 - 15.5 g/dL [facility] Hematocrit 36.3 35.0 - 45.0 % [facility] MCV 85.5 80.0 - 100.0 fL [facility] MCH 28.9 27.0 - 33.0 pg [facility] MCHC 33.8 32.0 - 36.0 g/dL [facility] RDW-CV 14.5 11.0 - 15.0 % [facility] Platelet 317 140 - 400 Thousand/ uL [facility] MPV 8.1 7.5 - 12.5 fL [facility] Neutrophils Absolute 1,818 1,500 - 7,800 cells/uL [facility] Lymphocyte Absolute Manual 1,011 850 - 3,900 cells/uL [facility] Monocytes Absolute 205 200 - 950 cells/uL [facility] Eosinophils Absolute 134 15 - 500 cells/uL [facility]) Basophil Absolute Manual 32 0 - 200 cells/uL [facility] Neutrophils % 56.8 % [facility] Lymphocytes % 31.6 % [facility] Monocytes % 6.4 % [facility] Eosinophils % 4.2 % [facility] Basophil % 1.0 % [facility] Comment: Test Performed at: [facility] ??[phone] ASHLY FLORES MD 08/12/2017 7:40 AM CDT 08/12/2017 7:41 AM CDT Swetha Lesli GRAYSON LAB - HEMATOLOGY ORD ERABLES [facility] * (ABNORMAL) COMPREHENSIVE METABOLIC PANEL (08/12/2017 7:40 AM CDT) Only the most recent of2 resultswithin the time period is included. Pathologist [facility] Glucose 105(H) 65 - 99 mg/dL [facility] Comment: ? Fasting reference interval For someone without known diabetes, a glucose value between 100 and 125 mg/dL is consistent with prediabetes and should be confirmed with a follow-up test. BUN 10 7 - 25 mg/dL [facility] Creatinine 0.80 0.50 - 1.05 mg/dL [facility] Comment: For patients >49 years of age, the reference limit for Creatinine is approximately 13% higher for people identified as -[place]. eGFR non- 85 > OR = 60 mL/min/1 .73m2 [facility] eGFR 99 > OR = 60 mL/min/1 .73m2 [facility] BUN/Creatinine Ratio NOT APPLICABLE 6 - 22 (calc) [facility] Sodium 139 135 - 146 mmol/L [facility] Potassium 4.1 3.5 - 5.3 mmol/L [facility] Chloride 105 98 - 110 mmol/L [facility]) CO2 29 20 - 31 mmol/L [facility] Calcium 9.8 8.6 - 10.4 mg/dL [facility] Protein Total 7.3 6.1 - 8.1 g/dL [facility] Albumin 4.3 3.6 - 5.1 g/dL [facility] Globulin 3.0 1.9 - 3.7 g/dL (calc) [facility] Albumin/Globulin Ratio 1.4 1.0 - 2.5 (calc) [facility] Bilirubin Total 0.5 0.2 - 1.2 mg/dL [facility] Alkaline Phosphatase 54 33 - 130 U/L [facility] AST 20 10 - 35 U/L [facility] ALT 14 6 - 29 U/L [facility] Comment: Test Performed at: [facility] [place] [address] [place], [place] ??[phone] THOR GARCIA DO,MPH 08/12/2017 7:40 AM CDT 08/12/2017 7:41 AM CDT Swetha Ballesteros MD LAB - CHEMISTRY HELEN Beauchamp Organization Address City/State/ZIP Co de Phone Number [facility] * DNA ANTIBODY DS CRITHIDIA IFA (03/05/2017 4:16 PM CDT) dsDNA Antibody Crithidia IFA NEGATIVE NEGATIVE [facility]) Comment: Test Performed at: [facility] [address] [place], [place] ??[phone] PAGE MANLEY MD PHD 03/05/2017 4:16 PM CDT 03/05/2017 4:17 PM CDT Swetha Ballesteros MD LAB - SEROLOGY ORDER CARLA [facility] * CENTROMERE B ANTIBODIES (03/05/2017 4:16 PM CDT) Centromere B Antibody <1.0 NEG <1.0 NEG AI [facility] Comment: Test Performed at: [facility] [place], [place] ??[phone] THOR GARCIA DO,MPH Blood specimen (specimen) BLOOD SPECIMEN / Unknown 03/05/2017 4:16 PM CDT 03/05/2017 4:17 PM CDT Swetha Ballesteros MD LAB - SEROLOGY ORDER CARLA [facility] * CHROMATIN ANTIBODY (03/05/2017 4:16 PM CDT) Chromatin Nucleosomal <1.0 NEG <1.0 NEG AI [facility] Comment: Test Performed at: [facility] [address] [place] ??[phone] THOR GARCIA DO,MPH Blood specimen (specimen) BLOOD SPECIMEN / Unknown 03/05/2017 4:16 PM CDT 03/05/2017 4:17 PM CDT Swetha Ballesteros MD LAB - SEROLOGY ORDER CARLA [facility] * RIBEIRO (SM) ANTIBODY EMELY (03/05/2017 4:16 PM CDT) Pathologist [facility] EMELY Ribeiro (SM) Antibody <1.0 NEG <1.0 NEG AI [facility] Comment: Test Performed at: [facility] [address] [place] [address] ??[phone] THOR GARCIA DO,MPH Blood specimen (specimen) BLOOD SPECIMEN / Unknown 03/05/2017 4:16 PM CDT 03/05/2017 4:17 PM CDT Swetha Ballesteros MD LAB - CHEMISTRY HELEN MARSHALL Performing Organization Address [facility] [address]/ZIP Co de Phone Number [facility] * SOLAR DESIGNER ANTIBODY (03/05/2017 4:16 PM CDT) [facility] EMELY SOLAR DESIGNER Antibody <1.0 NEG <1.0 NEG AI [facility] Comment: Test Performed at: [facility] ??[phone] THOR GARCIA DO,MPH Blood specimen (specimen) BLOOD SPECIMEN / Unknown 03/05/2017 4:16 PM CDT 03/05/2017 4:17 PM CDT Swetha Ballesteros MD LAB - CHEMISTRY HELEN MARSHALL [facility] * EDWIN BLOOD SCREEN W/REFLEX TITER (03/05/2017 4:16 PM CDT) [facility] EDWIN Screen NEGATIVE NEGATIVE [facility] Comment: EDWIN IFA is a first line screen for detecting the presence of up to approximately 150 autoantibodies in various autoimmune diseases. A negative EDWIN IFA result suggests EDWIN-associated autoimmune diseases are not present at this time. Visit Physician FAQs for interpretation of all antibodies in the [place], prevalence, and association with diseases at http://education.[employer]/ faq/QSD845 ?? Test Performed at: [facility] [address] [place] [address] ??[phone] THOR GARCIA DO,MPH Blood specimen (specimen) BLOOD SPECIMEN / Unknown 03/05/2017 4:16 PM CDT 03/05/2017 4:17 PM CDT Swetha Ballesteros MD LAB - CHEMISTRY HELEN MARSHALL Performing Organization Address [facility] [address]/ZIP Co de Phone Number [facility] * HISTONE ANTIBODY (03/05/2017 4:16 PM CDT) Pathologist [facility] Histone Antibody <1.0 U [facility] Comment: Reference Ranges for Histone Antibodies: ?? <1.0 ? Negative ?? 1.0-1.5 ??Weak Positive ?? 1.6-2.5 ??Moderate Positive ?? >2.5 ? Strong Positive Test Performed at: [facility] [address] [place], [place] ??[phone] PAGE MANLEY MD PHD 03/05/2017 4:16 PM CDT 03/05/2017 4:17 PM CDT Swetha Ballesteros MD LAB - CHEMISTRY HELEN MARSHALL Performing Organization Address [facility] [address]/[facility] Co de Phone Number [facility] * COMPLEMENT TOTAL (03/05/2017 4:16 PM CDT) Pathologist [facility] Complement Total CH50 55 31 - 60 U/mL [facility] Comment: Test Performed at: [facility] [address] ??[phone] THOR GARCIA DO,MPH Blood specimen (specimen) BLOOD SPECIMEN / Unknown 03/05/2017 4:16 PM CDT 03/05/2017 4:17 PM CDT Swetha Ballesteros MD LAB - CHEMISTRY HELEN MARSHALL Performing Organization Address City/[facility] [address]/ZIP Co de Phone Number [facility] * SS-B (SJOGRENS'S) ANTIBODY (03/05/2017 4:16 PM CDT) Pathologist [facility] Sjogren's Antibodies (SSB) <1.0 NEG <1.0 NEG AI [facility]) Comment: Test Performed at: [facility] [place] [address] [place], [place] ??[phone] THOR GARCIA DO,MPH Blood specimen (specimen) BLOOD SPECIMEN / Unknown 03/05/2017 4:16 PM CDT 03/05/2017 4:17 PM CDT Swetha Ballesteros MD LAB - CHEMISTRY HELEN MARSHLAL Performing Organization Address City/[facility] [address]/ZIP Co de Phone Number [facility] * SS-A (SJOGREN'S) ANTIBODY (03/05/2017 4:16 PM CDT) Sjogren's Antibodies (SSA) <1.0 NEG <1.0 NEG AI [facility]) Comment: Test Performed at: [facility] [place], [place] ??[phone] THOR GARCIA DO,MPH Blood specimen (specimen) BLOOD SPECIMEN / Unknown 03/05/2017 4:16 PM CDT 03/05/2017 4:17 PM CDT Swetha Ballesteros MD LAB - CHEMISTRY HELEN MARSHALL Performing Organization Address [facility] [address]/[facility] de Phone Number [facility] * SCLERODERMA 70 (SCL) ANTIBODY (03/05/2017 4:16 PM CDT) EMELY SCL-70 Antibody <1.0 NEG <1.0 NEG AI [facility] Comment: Test Performed at: [facility] [address] [place], [place] ??[phone] THOR GARCIA DO,MPH Blood specimen (specimen) BLOOD SPECIMEN / Unknown 03/05/2017 4:16 PM CDT 03/05/2017 4:17 PM CDT Swetha Ballesteros MD LAB - CHEMISTRY HELEN MARSHALL Performing Organization Address City/[facility] [address]/ZIP Co de Phone Number [facility] * DNA ANTIBODY DOUBLE STRANDED (03/05/2017 4:16 PM CDT) [facility] dsDNA Antibody <1 IU/mL [facility]) Comment: ? IU/mL ? Interpretation ? < or = 4 ?Negative ? 5-9 ? Indeterminate ? > or = 10 ?? Positive Test Performed at: [facility] [address] [place], [place] ??[address] THOR GARCIA DO,MPH Blood specimen (specimen) BLOOD SPECIMEN / Unknown 03/05/2017 4:16 PM CDT 03/05/2017 4:17 PM CDT Swetha Lesli [facility] - HEMATOLOGY ORD ERABLES [facility]) * (ABNORMAL) VITAMIN D 25-HYDROXY (03/05/2017 4:16 PM CDT) [facility] Vitamin D, 25 Hydroxy Total 20(L) 30 - 100 ng/mL [facility] Comment: Vitamin D Status ? 25-OH Vitamin D: Deficiency: ?<20 ng/mL Insufficiency: ? 20 - 29 ng/mL Optimal: ? > or = 30 ng/mL For 25-OH Vitamin D testing on patients on D2-supplementation and patients for whom quantitation of D2 and D3 fractions is required, the QuestAssureD(TM) 25-OH VIT D, (D2,D3), LC/MS/MS is recommended: order code 56704 (patients >2yrs). For more information on this test, go to: http://education.[employer].Sales Rabbit/faq/LGV395 (This link is being provided for informational/educational purposes only.) REPORT COMMENT: ROUTE TO PCP, YADIRA BARNHART, ; ROUTE TO PCP, DIANN FASTING:NO Test Performed at: [facility] [place], [place] ??[phone] THOR GARICA DO,MPH Blood specimen (specimen) BLOOD SPECIMEN / Unknown 03/05/2017 4:16 PM CDT 03/05/2017 4:17 PM CDT Swetha Ballesteros MD LAB - CHEMISTRY ORDE JOANNA Performing Organization Address [facility] [address]/[facility] de Phone Number [facility] * RHEUMATOID ARTHRITIS PANEL (03/05/2017 4:16 PM CDT) Rheumatoid Factor 8 <14 IU/mL [facility] Cyclic Citrullinated Peptide Antibody <16 UNITS [facility] Comment: Reference Range Negative: ?<20 Weak Positive: ? 20-39 Moderate Positive: ?? 40-59 Strong Positive: ? >59 Interpretation These serologic results may be found in 10-20% of patients with polyarthritis that is [facility] Interpretation clinically and radiologically indistinguishable from RA. [facility] Comment: Test Performed at: [facility] [place], [place] ??[address] THOR GARCIA DO,MPH 03/05/2017 4:16 PM CDT 03/05/2017 4:17 PM CDT Swetha Ballesteros MD LAB - SEROLOGY ORDER CARLA Performing Organization Address [facility] [address]/[facility] Co de Phone Number [facility] * COMPLEMENT C4 (03/05/2017 4:16 PM CDT) Complement C4 20 16 - 47 mg/dL [facility] Comment: Test Performed at: [employer] [place], [place] ??[address] THOR GARCIA DO,MPH Blood specimen (specimen) BLOOD SPECIMEN / Unknown 03/05/2017 4:16 PM CDT 03/05/2017 4:17 PM CDT Swetha Ballesteros MD LAB - SEROLOGY ORDER CARLA Performing Organization Address [facility] [address]/[facility] de Phone Number [facility] * TSH (03/05/2017 4:16 PM CDT) [facility] TSH 1.77 mIU/L [facility] Comment: ?Reference Range ?> or = 20 Years ??0.40-4.50 ? Ranges ?First trimester ?0.26-2.66 ?Second trimester ?? 0.55-2.73 ?Third trimester ?0.43-2.91 Test Performed at: [facility] [address] ??[address] THOR GARCIA DO,MPH Blood specimen (specimen) BLOOD SPECIMEN / Unknown 03/05/2017 4:16 PM CDT 03/05/2017 4:17 PM CDT Swetha Balelsteros MD LAB - CHEMISTRY ORDE RABLES Performing Organization Address [facility] [address]/[facility] de Phone Number [facility] * COMPLEMENT C3 (03/05/2017 4:16 PM CDT) [facility] Complement C3 119 90 - 180 mg/dL [facility] Comment: Test Performed at: [facility] [address] ??[phone] THOR GARCIA DO,MPH Blood specimen (specimen) BLOOD SPECIMEN / Unknown 03/05/2017 4:16 PM CDT 03/05/2017 4:17 PM CDT Swetha Lesli [facility] - CHEMISTRY HELEN MARSHALL [facility] * XR FOOT RIGHT 3VW OR MORE (02/24/2017 10:49 AM CDT) Anatomical Region Laterality Modality Ankle / Foot Other Impressions 02/24/2017 2:27 PM CDT Impression: 1. Normal joint spaces of both feet. Small bilateral heel spurs. 2. Normal joint spaces of both hands. There is a small subchondral cyst or erosion within the left small finger metacarpal head. This report was electronically signed by JOSE LUIS GARBER M.D. ??on 02/24/2017 2:27 PM . Narrative 02/24/2017 2:27 PM CDT Examination: 1. Left hand minimum 3 views 2. Left foot minimum 3 views 3. Right foot minimum 3 views 4. Right hand minimum 3 views History: Bilateral hand and foot pain Findings: 3 views of the right hand were performed. Alignment of the right hand is normal. Right hand joint spaces are normal. There is no erosion. 3 views of the left hand were performed. Alignment is normal. No definite carpal erosion is seen. The metacarpophalangeal joint spaces are normal. There is a possible small erosion or subchondral cyst within the small finger metacarpal head. 3 views of the left foot were performed. Left forefoot joint spaces and midfoot joint spaces appear normal. No acute fracture or erosion is identified. There is a small heel spur. 3 views of the right foot were performed. Right forefoot and midfoot joint spaces appear normal. No erosion is seen. Small heel spur is present. Procedure Note Jose Luis Garber MD - 01/14/2018 Examination: 1. Left hand minimum 3 views 2. Left foot minimum 3 views 3. Right foot minimum 3 views 4. Right hand minimum 3 views History: Bilateral hand and foot pain Findings: 3 views of the right hand were performed. Alignment of the right hand isnormal. Right hand joint spaces are normal. There is no erosion. 3 views of the left hand were performed. Alignment is normal. No definitecarpal erosion is seen. The metacarpophalangeal joint spaces are normal.There is a possible small erosion or subchondral cyst within the smallfinger metacarpal head. 3 views of the left foot were performed. Left forefoot joint spaces andmidfoot joint spaces appear normal. No acute fracture or erosion isidentified. There is a small heel spur. 3 views of the right foot were performed. Right forefoot and midfoot jointspaces appear normal. No erosion is seen. Small heel spur is present. IMPRESSION Impression: 1. Normal joint spaces of both feet. Small bilateral heel spurs. 2. Normal joint spaces of both hands. There is a small subchondral cyst orerosion within the left small finger metacarpal head. This report was electronically signed by JOSE LUIS GARBER M.D. on02/24/2017 2:27 PM . Swetha Lesli [facility] * XR FOOT LEFT 3VW OR MORE (02/24/2017 10:49 AM CDT) Anatomical Region Laterality Modality Ankle / Foot Other Impressions 02/24/2017 2:27 PM CDT Impression: 1. Normal joint spaces of both feet. Small bilateral heel spurs. 2. Normal joint spaces of both hands. There is a small subchondral cyst or erosion within the left small finger metacarpal head. This report was electronically signed by JOSE LUIS GARBER M.D. ??on 02/24/2017 2:27 PM . Narrative 02/24/2017 2:27 PM CDT Examination: 1. Left hand minimum 3 views 2. Left foot minimum 3 views 3. Right foot minimum 3 views 4. Right hand minimum 3 views History: Bilateral hand and foot pain Findings: 3 views of the right hand were performed. Alignment of the right hand is normal. Right hand joint spaces are normal. There is no erosion. 3 views of the left hand were performed. Alignment is normal. No definite carpal erosion is seen. The metacarpophalangeal joint spaces are normal. There is a possible small erosion or subchondral cyst within the small finger metacarpal head. 3 views of the left foot were performed. Left forefoot joint spaces and midfoot joint spaces appear normal. No acute fracture or erosion is identified. There is a small heel spur. 3 views of the right foot were performed. Right forefoot and midfoot joint spaces appear normal. No erosion is seen. Small heel spur is present. Procedure Note Jose Luis Garber MD - 01/14/2018 Examination: 1. Left hand minimum 3 views 2. Left foot minimum 3 views 3. Right foot minimum 3 views 4. Right hand minimum 3 views History: Bilateral hand and foot pain Findings: 3 views of the right hand were performed. Alignment of the right hand isnormal. Right hand joint spaces are normal. There is no erosion. 3 views of the left hand were performed. Alignment is normal. No definitecarpal erosion is seen. The metacarpophalangeal joint spaces are normal.There is a possible small erosion or subchondral cyst within the smallfinger metacarpal head. 3 views of the left foot were performed. Left forefoot joint spaces andmidfoot joint spaces appear normal. No acute fracture or erosion isidentified. There is a small heel spur. 3 views of the right foot were performed. Right forefoot and midfoot jointspaces appear normal. No erosion is seen. Small heel spur is present. IMPRESSION Impression: 1. Normal joint spaces of both feet. Small bilateral heel spurs. 2. Normal joint spaces of both hands. There is a small subchondral cyst orerosion within the left small finger metacarpal head. This report was electronically signed by JOSE LUIS GARBER M.D. on02/24/2017 2:27 PM . Swetha Lesli [facility] Care Teams Lactation Coordinator Relationship Specialty Start Date End Date Elizabeth Borrego PA-C PCP - General 01/27/21
--- OUTSIDE RECORDS SUMMARY | 2024-10-04 02:51 | XMS_ITS | Encounter Summary ---
Author Organization [facility] Address [address] [place] [address] Care Team Providers Care Activity Leader Name Role Phone Elizabeth Borrego PA-C Primary Care Provider [phone] Encounter Details Date Type Department Care Team (Late st Contact Info) Description 04/28/2023 Orders Only [facility] - Rheumatology [address] [facility] [place] [id number] Pavan Frias MD [address] [place] [phone] Social History Tobacco Use Types Packs/Day [...] as of this encounter Progress Notes * Pavan Frias MD - 04/28/2023 5:16 PM CDT Sending Medrol pack. Discussed with her she might have to go back to full muse HCQ, currently [id number] mg and would like to wait until the Medrol pack dose is done. She will let us know after the Medrol pack. documented in this encounter Plan of Treatment Not on file documented as of this encounter Visit Diagnoses Not on filedocumented in this encounter Care Teams Activity Leader Relationship Specialty Start Date End Date Elizabeth Borrego PA-C PCP - General 01/27/21 documented as of this encounter
--- OUTSIDE RECORDS SUMMARY | 2024-10-04 02:51 | XMS_ITS | Encounter Summary ---
Author Organization [facility] Address [address] [place] [address] Care Team Providers Care Well Tester Name Role Phone Elizabeth Borrego PA-C Primary Care Provider [phone] Reason for Visit * Reason Onset Date Comments Med Question 04/27/2023 Encounter Details Date Type Department Care Team (Late st Contact Info) Description 04/27/2023 Telephone [facility] - Rheumatology [address] [place] [address] [place] [id number] Pavan Frias MD [facility] [place] [address] Med Question Social History Tobacco Use [...] Telephone Encounter - Pavan Frias MD - 04/27/2023 3:48 PM CDT Called and left a message. Sent following Quizrr message, Discussed with Dr. Vail. Called and left you a message. For now I can send you a medrol pack andwe might have to go back on hydroxychloroquine. Please let me know if you agree and also which pharmacy you would like me to send the medication to. Dr. Frias documented in this encounter Plan of Treatment Not on file documented as of this encounter Visit Diagnoses Not on filedocumented in this encounter Care Teams Well Tester Relationship Specialty Start Date End Date Elizabeth Borrego PA-C PCP - General 01/27/21 documented as of this encounter
--- OUTSIDE RECORDS SUMMARY | 2024-10-04 02:51 | XMS_ITS | Referral Summary ---
Author Organization [facility] Address [address] [facility] [place] [address] Care Team Providers Care Family Resource Specialist Name Role Phone Elizabeth Borrego PA-C Primary Care Provider [phone] Source Comments [facility],non-owned Affiliates and Associated Physician Practices is amultiple site organization consisting of ambulatory clinics and hospital sitesin [place], [place], [place] and [place]. This disclosure is being madepursuant to the Care Everywhere program and may not contain all information available regarding this patient. Last updated 18.[facility] Allergies No known active allergies Medications * Be aware that medications may not be up to date on this document. Alwaysverify current medications with the patient. Medication Sig Dispensed Refills Start Date End Date Status pravastatin (PRAVACHOL) 40 MG tablet Take 40 mg by mouth DAILY. 02/07/2017 Active buPROPion XL 24hr (WELLBUTRIN-XL) 150 MG tablet Take 150 mg by mouth once daily Active Ergocalciferol (VITAMIN D2) 2000 units Take 1 tablet by mouth once daily Active escitalopram (LEXAPRO) 10 MG tablet Take 10 mg by mouth once daily Active valsartan-hydroCHLOR Othiazide (DIOVAN HCT) 160-12.5 MG tablet 12/03/2019 Active cyanocobalamin (VITAMIN B-12) injection 100 mcg 01/30/2020 Active octreotide (SANDOSTATIN) 100 MCG/ML injection 1 mL IM injection 10mg per pt. For malignant carcinoid tumor of stomach Active hydroxychloroquine (Plaquenil) 200 MG tabletIndications:Er osive osteoarthritis,Vitam in D deficiency,Encounter for therapeutic drug monitoring Take 1.5 (one and one-half) tablets by mouth once daily 180 tablet 1 10/15/2022 Active methylPREDNISolone (Medrol Dosepak) 4 MG tablet Take by mouth as directed Take as directed by mouth per package instructions. 21 tablet 04/28/2023 Active Active Problems No known active problems Immunizations Name Administration Dates Next Due INFLUENZA 07/22/2020,08/06/2019 INFLUENZA VACCINE, QUADR. (F LUZONE; FLULAVAL; FLUARIX; AFLURIA QUADRIVALENT; 6MO+), 0.5 ML (IIV4) 07/20/2018 iNFLUENZA VACCINE, RECOM-BRAND, QUADR. (FLUBLOCK QUADRIVALENT; 18Y+) (RIV4) 07/30/2021 Social History Tobacco Use Types Packs/Day Years [...] Mass Index 28.86 03/10/2023 11:02 AM CDT Plan of Treatment Not on file Procedures Procedure Name Priority Date/Time Associated Diagnosis Comments COMPREHENSIVE METABOLIC PANEL Routine 08/12/2017 7:40 AM CDT from Last 3 Months or Most Recently Relevant to Health Maintenance Results * (ABNORMAL) COMPREHENSIVE METABOLIC PANEL (08/12/2017 7:40 AM CDT) Glucose 105(H) 65 - 99 mg/dL [facility]) Comment: ? Fasting reference interval For someone without known diabetes, a glucose value between 100 and 125 mg/dL is consistent with prediabetes and should be confirmed with a follow-up test. BUN 10 7 - 25 mg/dL [facility]) Creatinine 0.80 0.50 - 1.05 mg/dL [facility]) Comment: For patients >49 years of age, the reference limit for Creatinine is approximately 13% higher for people identified as -Barb[place]. eGFR non- 85 > OR = 60 mL/min/1 .73m2 [facility]) eGFR 99 > OR = 60 mL/min/1 .73m2 [facility]) BUN/Creatinine Ratio NOT APPLICABLE 6 - 22 (calc) [facility]) Sodium 139 135 - 146 mmol/L [facility]) Potassium 4.1 3.5 - 5.3 mmol/L [facility]) Chloride 105 98 - 110 mmol/L [facility]) CO2 29 20 - 31 mmol/L [facility]) Calcium 9.8 8.6 - 10.4 mg/dL [facility]) Protein Total 7.3 6.1 - 8.1 g/dL [facility]) Albumin 4.3 3.6 - 5.1 g/dL [facility]) Globulin 3.0 1.9 - 3.7 g/dL (calc) [facility]) Albumin/Globulin Ratio 1.4 1.0 - 2.5 (calc) [facility]) Bilirubin Total 0.5 0.2 - 1.2 mg/dL [facility]) Alkaline Phosphatase 54 33 - 130 U/L [facility]) AST 20 10 - 35 U/L [facility]) ALT 14 6 - 29 U/L [facility]) Comment: Test Performed at: [facility] ??[phone] THOR GARCIA DO,MPH 08/12/2017 7:40 AM CDT 08/12/2017 7:41 AM CDT Swetha Lesli [facility] - CHEMISTRY HELEN MARSHALL [facility]) from Last 3 Months or Most Recently Relevant to Health Maintenance Care Teams Family Resource Specialist Relationship Specialty Start Date End Date Elizabeth Borrego, PAChalinoC PCP - General 01/27/21
--- OUTSIDE RECORDS SUMMARY | 2024-10-04 02:51 | XMS_ITS | Encounter Summary ---
Author Organization [facility] Address [address] [place] [address] Care Team Providers Care Vocational Counselor Name Role Phone Elizabeth Borrego PA-C Primary Care Provider [phone] Reason for Visit * Reason Onset Date Comments MEDICATION REFILL 08/26/2021 Encounter Details Date Type Department Care Team (Late st Contact Info) Description 08/26/2021 Refill [facility] [place] [phone] Yolanda Muniz MD No info available MEDICATION [...] * Telephone Encounter - Maura Frausto - 08/26/2021 2:37 PM CST Refill Request Fabiola Gibson ELIESER: 07.30.21Aug due: 11.26.21Aug scheduled: 11/26/2021 LRF: 6.21 Qty Disp: 180 # of refills: 1 ?? Last eye exam 10.06.20 Allergies: No Known Allergies Pended Medication Order: Requested Prescriptions Pending Prescriptions Disp Refills ??? hydroxychloroquine (PLAQUENIL) 200 MG tablet 180 tablet 1 Sig: Take 1.5 (one and one-half) tablets by mouth once daily L FABRICATOR WELDER documented in this encounter Plan of Treatment Not on file documented as of this encounter Visit Diagnoses Diagnosis Erosive osteoarthritis Osteoarthrosis involving, or with mention of more than one site, but not specified as generalized, site unspecified Vitamin D deficiency Encounter for therapeutic drug monitoring documented in this encounter Care Teams Vocational Counselor Relationship Specialty Start Date End Date Elizabeth Borrego PA-C PCP - General 01/27/21 documented as of this encounter
--- OUTSIDE RECORDS SUMMARY | 2024-10-04 02:51 | XMS_ITS | Encounter Summary ---
Author Organization [facility] Address [address] [place] [address] Care Team Providers Care Biomedical Repair Technician Name Role Phone Barbra Villalba Primary Care Pr ovider Encounter Details Date Type Department Care Team (Late st Contact Info) Description 11/11/2018 Orders Only [facility] [address] [place] [address] Paulina Dawson DO [address] [place] [id number] Joint swelling ; Erosive osteoarthritis; Vitamin D deficiency; Encounter for [...] Progress Notes * Paulina Dawson DO - 11/11/2018 3:43 PM CST Called pt to discuss symptoms. Has bilateral wrist swelling, right knee swelling (large lump posteriorly) and right ankle swelling. Did take an OTC aleve last night and that seemed to help but this has been persistent since bridget. Patient going to get labs today at [facility]. She will start Naproxen 500 mg BID tonight after labs are obtained. We will touch base on Wednesday. If needed, we will consider short course of prednisone. Paulina Dawson DO Rheumatology Fellow [facility] Pager: [phone] ING PLANT OPERATOR documented in this encounter Plan of Treatment Scheduled Orders Name Type Priority Associated Diagnoses Orde r Schedule CBC WITH DIFFERENTIAL Lab Routine Erosive osteoarthritis Vitamin D deficiency Encounter for therapeutic drug monitoring Joint swelling Ordered: 11/11/2018 COMPREHENSIVE METABOLIC PANEL Lab Routine Erosive osteoarthritis Vitamin D deficiency Encounter for therapeutic drug monitoring Joint swelling Ordered: 11/11/2018 C-REACTIVE PROTEIN Lab Routine Erosive osteoarthritis Vitamin D deficiency Encounter for therapeutic drug monitoring Joint swelling Ordered: 11/11/2018 ERYTHROCYTE SEDIMENTATION RATE Lab Routine Erosive osteoarthritis Vitamin D deficiency Encounter for therapeutic drug monitoring Joint swelling Ordered: 11/11/2018 URINALYSIS W/MICROSCOPIC REFLEX TO CULTURE Lab Routine Erosive osteoarthritis Vitamin D deficiency Encounter for therapeutic drug monitoring Joint swelling Ordered: 11/11/2018 documented as of this encounter Visit Diagnoses Diagnosis Joint swelling- Primary Effusion of joint, site unspecified Erosive osteoarthritis Osteoarthrosis involving, or with mention of more than one site, but not specified as generalized, site unspecified Vitamin D deficiency Encounter for therapeutic drug monitoring documented in this encounter Care Teams Biomedical Repair Technician Relationship Specialty Start Date End Date Barbra Villalba PA [address] [place] [address] PCP - General 01/05/18 01/03/19 documented as of this encounter
--- OUTSIDE RECORDS SUMMARY | 2024-10-04 02:51 | XMS_ITS | Encounter Summary ---
Author Organization [facility] Address [address] [place] [address] Care Team Providers Care Charger Name Role Phone Elizabeth Borrego PA-C Primary Care Provider [phone] Reason for Visit * Reason Comments Follow-up 6 month f/u Encounter Details Date Type Department Care Team (Late st Contact Info) Description 03/10/2023 11:00 AM CDT Office Visit [facility] - Rheumatology [address] [place] [address] [place] [address] Pavan Frias MD [facility] [place] [address] Vitamin D deficiency (Primary Dx); Polyarthralgia; Encounter for therapeutic drug monitoring Social History [...] PM CDT documented as of this encounter Last Filed Vital Signs Vital Sign Reading Time Taken Comments Blood Pressure 120/58 03/10/2023 11:02 AM CDT Pulse 70 03/10/2023 11:02 AM CDT Temperature 36.4 ??C (97.5 ??F) 03/10/2023 11:02 AM C DT Respiratory Rate - - Oxygen Saturation 97% 03/10/2023 11:02 AM CDT Inhaled Oxygen Concentration - - Weight 76.3 kg (168 lb 3.2 oz) 03/10/2023 11:02 AM CDT Height 162.6 cm (5' 4.02 ) 03/10/2023 11:02 AM C DT Body Mass Index 28.86 03/10/2023 11:02 AM CDT documented in this encounter Patient Instructions * Patient Instructions* Pavan Frias MD - 03/10/2023 12:08 PM CDT - Continue Hydroxychloroquine 100 mg daily until follow up - Follow up with orthopedics for Recurrent Duke's cyst - Can take tylenol PRN - Follow up in 5 months with me and Dr. Vail on Wednesday mornings - Please have the knee MRI and eye exam note faxed to us. If you need to schedule,change or cancel your Rheumatology appointment -at the [facility] ([facility]) at [address] [place] [address], call [phone] or [phone] (option 1) If you choose to get labs or imaging at an outside facility, it is your (as the patient) responsibility to have these results faxed to us at [phone] If you need a refill, please call your Pharmacy first and have them send us a refill request via Fax at [phone]. If you have been given a referral to a new specialist at [facility] and have not received a call to schedule within 1 week, please call [phone] to schedule your visit. If you have been referred to Physical Therapy, but do not receive a call from them to schedule an appointment within 1 week, please call [phone] to schedule your Physical Therapy appointment. You can also utilize the Physical Therapy website at [email or web address] to make an appointment. If you need to leave a message for Dr. Frias you can send her an electronic message via [email or web address].Her office FAX number is [phone]. If you have an emergency after hours, you can reach the technical publications writer Fellow by calling the Granite Cutter Apprentice at [phone], but please seek appropriate care at Urgent Care or Emergency Room. documented in this encounter Progress Notes * Bessie Vail MD - 03/10/2023 11:31 AM CDT Patient seen and examined with fellow Dr. Frias. Please see note for further details. I confirm history, exam, assessment and plan. In addition I note: Interval history: patient is 57 year old female with the h/o erosive OA , who reports had backers cyst drained in her right knee and received steroid injection, doing well, no knee pain or swelling now Exam: Vitals: 03/10/23 1102 BP: 120/58 Pulse: 70 Temp: 97.5 ??F (36.4 ??C) SpO2: 97% Weight: 76.3 kg (168 lb 3.2 oz) Height: 1.626 m (5' 4.02 ) Knees T0S0 bilaterally No joint tenderness or swelling of her hands Labs reviewed: 09/02/22 Assessment/Plan: Dr. Ballesteros's patient previously Patient is 57 year old CF with Erosive OA of hands ( repeat x-rays showed no erosions) and carcinoid tumors, s/p stomach surgery, stable except for stiffness in her hands with weather changes Recent x-rays of hands showed no significant arthritis HCQ 200 mg po daily, taper off Check labs to monitor toxicity of medicine Recommend eye exam every 12 months ( last 2. Carcinoid tumor of the stomach, s/p surgery 3. Anemia: improved 4. 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 ?? Today, States she is doing good. AM stiffness for few mins mainly in hands (Right hand > Left hand) Denies any joint swelling, rashes, sores, ulcers, hemoptysis, psoriais Had duke's cyst drained on right knee ~ 240 cc, end of January 2023 along with right knee injection . Carpal tunnel improved, have not needed wrist splints lately. . Follows Oncologist at [facility] for neuroendocrine/pancreatic tumor, last seen in 12/2022. SandoSTATIN LAR injection was started and stopped in 10/2022 as per her choice, has a follow up CT scan in 03/2023. ?? Current meds: HCQ 100 mg daily??(~2012 - current, intermittently off): Had eye exam in 02/2023 as per patient, no records available. Tylenol PRN Review of Systems: Other systems reviewed and negative or noncontributory except as stated in the HPI. Home Medications: Current Outpatient Medications: ??? buPROPion XL 24hr (WELLBUTRIN-XL) 150 MG tablet, Take 150 mg by mouth once daily, Disp: , Rfl: ??? cyanocobalamin (VITAMIN B-12) injection, 100 mcg , Disp: , Rfl: ??? Ergocalciferol (VITAMIN D2) 2000 units, Take 1 tablet by mouth once daily, Disp: , Rfl: ??? escitalopram (LEXAPRO) 10 MG tablet, Take 10 mg by mouth once daily, Disp: , Rfl: ??? hydroxychloroquine (Plaquenil) 200 MG tablet, Take 1.5 (one and one-half) tablets by mouth oncedaily, Disp: 180 tablet, Rfl: 1 ??? octreotide (SANDOSTATIN) 100 MCG/ML injection, 1 mL IM injection 10mg per pt. For malignant carcinoid tumor of stomach, Disp: , Rfl: ??? pravastatin (PRAVACHOL) 40 MG tablet, Take 40 mg by mouth DAILY., Disp: , Rfl: ??? valsartan-hydroCHLOROthiazide (DIOVAN HCT) 160-12.5 MG tablet, , Disp: , Rfl: Adverse Drug Reactions: No Known Allergies Past Medical History: Past Medical History: Diagnosis Date ??? Carcinoid tumor of stomach 12/26/2018 removed; found on endoscopy Past Surgical History: Past Surgical History: Procedure Laterality Date ??? HX C SECTION CLASSIC 1989 and 1991 ??? HX TUBAL LIGATION 2004 Immunization History: Immunization History Administered Date(s) Administered ??? FLU VACCINE QUAD IIV4 SPLIT PF IM 07/20/2018 ??? FLU VACCINE QUAD RIV4 PF IM 07/30/2021 ??? INFLUENZA 08/06/2019, 07/22/2020 Social History: Social History Socioeconomic History ??? Marital status: Single Tobacco Use ??? Smoking status: Former Types: Cigarettes Quit date: 02/25/2000 Years since quittin.0 ??? Smokeless tobacco: Never Vaping Use ??? Vaping status: Never Used Substance and Sexual Activity ??? Alcohol use: Yes Alcohol/week: 3.0 standard drinks of alcohol ??? Drug use: No Family History: Family History Problem Relation Name Age of Onset ??? Osteoporosis Mother Status: ??? Heart Disease Mother hx triple bipass ??? Emphysema Father ??? Arthritis - Rheumatoid Sister on MTX ??? CAD (Coronary Artery Disease) Brother Status: ??? Diabetes Sister ??? Arthritis - Osteo Sister ??? Lupus Neg Hx ??? Inflammatory Bowel Disease Neg Hx ??? Thyroid Disease Neg Hx ??? Psoriasis Neg Hx Patient Care Team: Elizabeth Borrego PA-C Patient Care Team: Elizabeth Borrego PA-C as PCP - General Objective Physical Exam BP 120/58 (BP SITE: RIGHT ARM, BP POSITION: SITTING, BP CUFF SIZE: 11) Pulse 70 Temp 97.5 ??F (36.4 ??C) (Temporal) Ht 1.626 m (5' 4.02 ) Wt 76.3 kg (168 lb 3.2 oz) LMP (Exact Date) SpO2 97% BMI 28.86 kg/m?? GENERAL: NAD SKIN/NAILS: No rashes on exposed skin. HEENT/NECK: White sclerae. Ext ears wnl. No oropharyngeal lesions. No palpable masses. CHEST/LUNGS: Normal work of breathing, CTAB. CARDIOVASCULAR: Regular rhythm, crisp S1/S2, no Murmurs. No HONG. ABDOMEN: S/ND/NT. PSYCH: Alert, appropriately interactive. NEURO: Normal muscle bulk and strength in trunk and limbs. MS 5/5. MSK: PIPs, DIPs T0S0 No dactylitis Bilateral knees with crepitus + Labs: Reviewed, including those as noted below Results for orders placed or performed in visit on 02/10/23 (from the past 2352 hour(s)) DERMATOPATHOLOGY Result Value Ref Range Case Report Dermatopathology Report Case: [id number] Authorizing Provider: Chacha Schaefer DO Collected: 02/10/2023 12:00 AM Ordering Location: [facility] Lab Received: 02/11/2023 10:55 AM Pathologist: Mitra Conrad MD Specimen: Skin, right chest Final Diagnosis Specimen A. SKIN, right chest: BASAL CELL CARCINOMA (C44.519) NOT PRESENT AT SAMPLED MARGIN DERMAL SCAR (L90.5) Clinical History R/O BCC Gross Description Specimen A: Received is one formalin filled container labeled with the patient's name and designated right chest. The specimen consists of a shave biopsy measuring [id number] mm. Jar 0. Microscopic Description Specimen A. SKIN, right chest: Within the dermis there are aggregates of basaloid cells with a high nuclear to cytoplasmic ratio and peripheral palisading. This lesion is not present at the sampled margin of the specimen. There are fibroblasts and collagen bundles oriented parallel to the skin surface with elongated blood vessels, some of which are oriented perpendicular to the skin surface. Disclaimer An external and internal positive and negative controls are appropriate for the histochemical, immunohistochemical and immunofluorescence stain(s) in this case (if any), except where stated explicitly. The performance characteristics of the stain(s) cited in this report were developed and its performance characteristic determined by the Dermatopathology Laboratory at [facility], direct ed by Dr. Ольга Conrad. These tests need not be, and therefore are not, approved by the [place] Food and Drug Administration. The tests are used for clinical purposes. Billing Codes Specimen Charges Stain Charges 74796 1 Embedded Images Other Studies: Labs: 03/02/23: CBC, CMP, ESR, CRP unremarkable. PET CT 07/06/22: 1. ?? Focal uptake within the uncinate process of the pancreas, likely related to residual neuroendocrine tumor. ??There is separate, normal physiologic curvilinear uptake within the uncinate process. 2. ?? No evidence of distant metastatic disease. 3. ?? Ground-glass nodule in the right lower lobe is unchanged from 2019 and shows no abnormal uptake. 4. ?? Ground-glass nodule measuring 5 mm in the right lower lobe is unchanged from 2020 and shows no abnormal uptake. ??Continued attention on follow-up imaging is recommended. 5. ?? Prior partial gastrectomy and gastrojejunostomy without associated abnormal activity. ? CT abdomen 12/2022: Unchanged hypervascular nodule in the pancreatic uncinate process compatible with neuroendocrine tumor. ??No new metastatic disease within the abdomen or pelvis. ?? XR hands bilaterally 11/2021: IMPRESSION: No significant arthritis Assessment & Recommendations # Osteoarthritis: H/o concern for erosive OA as per Xrays of left hand in 2016 concerning for cyst versus erosion of left 5th MCP and started on HCQ 300 mg. Xrays 11/2021 not concerning for erosions and HCQ decreased to 200 mg in 08/2022. She is currently on HCQ 100 mg daily ( started last week, 02/2023) and uses Tylenol PRN (very rarely) # Vitamin D deficiency: On vitamin d supplements # Right knee recurrent Duke's cyst: H/o minor meniscal tear in 12/2019 and recent knee xray with intra articular condyle, both of which might be causing recurrent Duke's cyst. Following Orthopedics at [place]. 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 ??No new metastatic disease within the abdomen or pelvis. Follows Oncologist at [facility] for neuroendocrine/pancreatic tumor, last seen in 12/2022. SandoSTATIN LAR injection was started and stopped in 10/2022 as per her choice, has a follow up CT scan in 03/2023. #. Drug Toxicity Monitoring on HCQ - Last Ophthalmology exam today, 03/10/23 as per patient. Will have the notes faxed to us. RECOMMENDATIONS: - Plan to slowly taper the HCQ and watch for any flares in the future. - Continue Tylenol PRN - Continue annual eye exam to monitor drug toxicity (HCQ). Recommended to have the last office visit faxed to us - Labs as below before next visit. - Follow up with oncologist for carcinoid tumor of stomach/ NET of pancreas. - Follow up with orthopedics for any procedures needed to decrease the recurrence of Duke's cyst. - Recommended to have her MRI 2020 faxed to us or send as an attachment on Similar Pages. ? #. Follow-up: In 6 months or sooner if needed. ?? This patient was seen and staffed with attending Dr. Vail. ?? Pavan Frias MD Rheumatology Fellow [facility] Encounter orders: Orders Placed This Encounter ??? CBC WITH DIFFERENTIAL Standing Status: Future Standing Expiration Date: 03/09/2024 Order Specific Question: Release to patient Answer: Immediate ??? COMPREHENSIVE METABOLIC PANEL Standing Status: Future Standing Expiration Date: 03/09/2024 Order Specific Question: Release to patient Answer: Immediate ??? C-REACTIVE PROTEIN Standing Status: Future Standing Expiration Date: 03/09/2024 Order Specific Question: Release to patient Answer: Immediate ??? ERYTHROCYTE SEDIMENTATION RATE Standing Status: Future Standing Expiration Date: 03/09/2024 Order Specific Question: Release to patient Answer: Immediate ??? VITAMIN D 25-HYDROXY Standing Status: Future Standing Expiration Date: 04/03/2024 Order Specific Question: Release to patient Answer: Immediate documented in this encounter Plan of Treatment Not on file documented as of this encounter Visit Diagnoses Diagnosis Vitamin D deficiency- Primary Polyarthralgia Pain in joint, multiple sites Encounter for therapeutic drug monitoring documented in this encounter Care Teams Charger Relationship Specialty Start Date End Date Elizabeth Borrego PA-C PCP - General 01/27/21 documented as of this encounter
--- OUTSIDE RECORDS SUMMARY | 2024-10-04 02:51 | XMS_ITS | Encounter Summary ---
Author Organization [facility] Address [address] [place] [address] Care Team Providers Care Tire Repair Mechanic Name Role Phone Elizabeth Borrego PA-C Primary Care Provider [phone] Reason for Visit * Reason Onset Date Comments Rash 04/09/2022 Encounter Details Date Type Department Care Team (Late st Contact Info) Description 04/09/2022 Telephone [facility] [address] [place] [address] Bessie Vail MD [address] [address] Rash Social History Tobacco Use Types Packs/Day Years [...] Telephone Encounter - Bessie Vail MD - 04/09/2022 2:53 PM CDT Called patient and left detailed message, she may need to contact her PCP or needs to evaluated at urgent care documented in this encounter Plan of Treatment Not on file documented as of this encounter Visit Diagnoses Not on filedocumented in this encounter Care Teams Tire Repair Mechanic Relationship Specialty Start Date End Date Elizabeth Borrego, NITA PCP - General 01/27/21 documented as of this encounter
--- OUTSIDE RECORDS SUMMARY | 2024-10-04 02:51 | XMS_ITS | Clinical Summary ---
Author Organization [facility] Address [address] [facility] [place] [address] Care Team Providers Care Boy'S Adviser Name Role Phone Elizabeth Borrego PA-C Primary Care Provider [phone] Source Comments [facility],non-owned Affiliates and Associated Physician Practices is amultiple site organization consisting of ambulatory clinics and hospital sitesin [place], [place], [place] and [place]. This disclosure is being madepursuant to the Care Everywhere program and may not contain all information available regarding this patient. Last updated 18.[facility] Allergies No known active allergies Medications * [...] RECOM-BRAND, QUADR. (FLUBLOCK QUADRIVALENT; 18Y+) (RIV4) 07/30/2021 Family History Medical History Relation Name Comments CAD (Coronary Artery Disease) Brother Status: Emphysema Father Heart Disease Mother hx triple bipa ss Osteoporosis Mother Status: d Arthritis - Rheumatoid Sister 1 on MT X Diabetes Sister 2 Arthritis - Osteo Sister 3 Inflammatory Bowel Disease Neg Hx Lupus Neg Hx Psoriasis Neg Hx Thyroid Disease Neg Hx Relation Name Status Comments Brother Father Mother Sister 1 Sister 2 Sister 3 Social History Tobacco Use Types Packs/Day Years [...] 03/10/2023 11:02 AM CDT Plan of Treatment Health Maintenance Due Date Last Done Comments COLOGUARD (AGES 45-75) - COLON CA SCREENING 1965 COLON MONITORING 1966 COLONOSCOPY - COLON CA SCREENING 1966 CT COLONOGRAPHY - COLON CA SCREENING 1965 Colorectal Cancer Screening 1966 FIT - COLON CA SCREENING 1966 FLEX SIG - COLON CA SCREENING 1966 MAMMOGRAM 1966 PAP SMEAR 1966 HIV SCREENING 1981 HEPATITIS C SCREENING 07/20/1984 DTAP/TDAP/TD VACCINES (1 - Tdap) 1985 HEPATITIS B VACCINE (1 of 3 - 19+ 3-dose series) 1985 ZOSTER VACCINE (1 of 2) 2016 SCREENING FOR DIABETES 07/30/2021 08/12/2017, 2016 DEPRESSION SCREENING 10/18/2023 09/09/2022 COVID-19 VACCINE (2 - season) 2024 07/03/2022 INFLUENZA VACCINE (#1) 2024 2, 07/30/2021, 07/22/2020, Additional history exists HIB VACCINE Aged Out No longer eligi ble based on patient's age to complete this topic HPV VACCINE Aged Out No longer eligi ble based on patient's age to complete this topic MENINGOCOCCAL VACCINE Aged Out No alf tamela eligible based on patient's age to complete this topic PNEUMOCOCCAL VACCINE Aged Out No long er eligible based on patient's age to complete this topic Procedures Procedure Name Priority Date/Time Associated Diagnosis Comments COMPREHENSIVE METABOLIC PANEL Routine 08/12/2017 7:40 AM CDT from Last 3 Months or Most Recently Relevant to Health Maintenance Results * (ABNORMAL) COMPREHENSIVE METABOLIC PANEL (08/12/2017 7:40 AM CDT) Glucose 105(H) 65 - 99 mg/dL [facility] Comment: ? Fasting reference interval For someone without known diabetes, a glucose value between 100 and 125 mg/dL is consistent with prediabetes and should be confirmed with a follow-up test. BUN 10 7 - 25 mg/dL [facility] Creatinine 0.80 0.50 - 1.05 mg/dL [facility] Comment: For patients >49 years of age, the reference limit for Creatinine is approximately 13% higher for people identified as -[place]ammar[place]. eGFR non- 85 > OR = 60 mL/min/1 .73m2 [facility] eGFR 99 > OR = 60 mL/min/1 .73m2 [facility] BUN/Creatinine Ratio NOT APPLICABLE 6 - 22 (calc) [facility] Sodium 139 135 - 146 mmol/L [facility] Potassium 4.1 3.5 - 5.3 mmol/L [facility] Chloride 105 98 - 110 mmol/L [facility] CO2 29 20 - 31 mmol/L [facility] Calcium 9.8 8.6 - 10.4 mg/dL [facility] Protein Total 7.3 6.1 - 8.1 g/dL [facility] Albumin 4.3 3.6 - 5.1 g/dL [facility] Globulin 3.0 1.9 - 3.7 g/dL (calc) [facility] Albumin/Globulin Ratio 1.4 1.0 - 2.5 (calc) [facility] Bilirubin Total 0.5 0.2 - 1.2 mg/dL [facility] Alkaline Phosphatase 54 33 - 130 U/L [facility] AST 20 10 - 35 U/L [facility] ALT 14 6 - 29 U/L [facility] Comment: Test Performed at: [facility] [address] ??[id number] THOR GARCIA DO,MPH 08/12/2017 7:40 AM CDT 08/12/2017 7:41 AM CDT Swetha Ballesteros MD LAB - CHEMISTRY [facility] from Last 3 Months or Most Recently Relevant to Health Maintenance Care Teams Boy'S Adviser Relationship Specialty Start Date End Date Elizabeth Borrego PA-C PCP - General 01/27/21
--- OUTSIDE RECORDS SUMMARY | 2024-10-04 02:51 | XMS_ITS | Encounter Summary ---
Author Organization [facility] Address [address] [place] [address] Care Team Providers Care Cath Laboratory Technician Name Role Phone Elizabeth Borrego PA-C Primary Care Provider [phone] Reason for Visit * Reason Comments Follow-up F/U - LUCILA Encounter Details Date Type Department Care Team (Late st Contact Info) Description 09/09/2022 11:00 AM TELEMARKETING AGENT Office Visit [facility] [address] [facility], [facility] [place] [address] Pavan Frias MD [address] [place] [address] Polyarthralgia (Primary Dx); Erosive osteoarthritis; Encounter for therapeutic drug monitoring Social History [...] Sign Reading Time Taken Comments Blood Pressure 122/76 09/09/2022 11:05 AM TELEMARKETING AGENT Pulse 64 09/09/2022 11:05 AM TELEMARKETING AGENT Temperature 36.6 ??C (97.8 ??F) 09/09/2022 11:[address] Respiratory Rate - - Oxygen Saturation 96% 09/09/2022 11:05 AM TELEMARKETING AGENT Inhaled Oxygen Concentration - - Weight 75.1 kg (165 lb 9.6 oz) 09/09/2022 11:05 AM TELEMARKETING AGENT Height 162.6 cm (5' 4 ) 09/09/2022 11:05 AM TELEMARKETING AGENT Body Mass Index 28.43 09/09/2022 11:05 AM TELEMARKETING AGENT documented in this encounter Patient Instructions * Patient Instructions* Pavan Frias MD - 09/09/2022 11:53 AM TELEMARKETING AGENT - FU in 5-6 months - Please decrease Plaquenil to 1 pill a day. Please let us know if any worsening of pain or flares. - Labs before next visit. - Please have the Ophthalmology office fax us the records. If you need to schedule,change or cancel your Rheumatology appointment -at the [facility] ([facility]) at [address] [place] [address], call [phone] or [phone] (option 1) If you choose to get labs or imaging at an outside facility, it is your (as the patient) responsibility to have these results faxed to us at [phone] If you need a refill, please call your Pharmacy first and have them send us a refill request via Fax at [phone]. If you have been given a referral to a new specialist at [facility] and have not received a call to schedule within 1 week, please call [phone] to schedule your visit. If you have been referred to Physical Therapy, but do not receive a call from them to schedule an appointment within 1 week, please call [phone] to schedule your Physical Therapy appointment. You can also utilize the Physical Therapy website at [email or web address] to make an appointment. If you need to leave a message for Dr. Frias you can send her an electronic message via [employer].Her office FAX number is [phone]. If you have an emergency after hours, you can reach the safety and health consultant Fellow by calling the Bundle Person at [phone], but please seek appropriate care at Urgent Care or Emergency Room. MARKETING AGENT documented in this encounter Progress Notes * Bessie Vail MD - 09/09/2022 11:25 AM CST Patient seen and examined with fellow Dr. Frias. Please see note for further details. I confirm history, exam, assessment and plan. In addition I note: Interval history: patient is 57 year old female with the h/o erosive OA , who reports feeling better with her hand pain. Exam: Vitals: 09/09/22 1105 BP: 122/76 Pulse: 64 Temp: 97.8 ??F (36.6 ??C) SpO2: 96% Weight: 165 lb 9.6 oz (75.1 kg) Height: 5' 4 (1.626 m) No joint tenderness or swelling Labs reviewed: 09/02/22 Assessment/Plan: Dr. Ballesteros's patient previously Patient is 57 year old CF with Erosive OA of hands ( repeat x-rays showed no erosions) and carcinoid tumors, s/p stomach surgery, stable except for stiffness in her hands with weather changes Recent x-rays of hands showed no significant arthritis decrease HCQ 200 mg po daily, will consider stop Check labs to monitor toxicity of medicine Recommend eye exam every 12 months ( last 2. Carcinoid tumor of the stomach, s/p surgery 3. 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 Today, States she is doing good. AM stiffness for few stiffness mainly in hands and ankles. Right heel pain better. Carpal tunnel improved, still using wrist splints at night PRN. Follows Oncologist at [facility] for neuroendocrine/pancreatic tumor. SandoSTATIN LAR injection once a month ?? Current meds: HCQ 300 mg daily (~2012 - current, intermittently off): Had eye exam in July 2022 as per patient, no records available. Tylenol PRN ?? Review of Systems: Other systems reviewed and [...] once daily, Disp: , Rfl: ??? hydroxychloroquine (PLAQUENIL) 200 MG tablet, Take 1.5 (one and [...] Social History Socioeconomic History ??? Marital status: Tobacco Use ??? Smoking status: Former Types: Cigarettes Quit date: 02/25/2000 Years since quittin.5 ??? Smokeless tobacco: Never Vaping Use ??? Vaping Use: Never used Substance and Sexual Activity ??? Alcohol use: Yes Alcohol/week: 3.0 standard drinks ??? Drug use: No Family History: Family [...] PCP - General Objective Physical Exam BP 122/76 (BP SITE: RIGHT ARM, BP POSITION: SITTING, BP CUFF SIZE: 11) Pulse 64 Temp 97.8 ??F (36.6 ??C) (Oral) Ht 5' 4 (1.626 m) Wt 165 lb 9.6 oz (75.1 kg) SpO2 96% BMI 28.43 kg/m?? GENERAL: NAD SKIN/NAILS: No rashes on exposed skin. HEENT/NECK: White sclerae. Ext ears wnl. No oropharyngeal lesions. No palpable masses. CHEST/LUNGS: Normal work of breathing, CTAB. CARDIOVASCULAR: Regular rhythm, crisp S1/S2, no Murmurs. No HONG. ABDOMEN: S/ND/NT. PSYCH: Alert, appropriately interactive. NEURO: Normal muscle bulk and strength in trunk and limbs. MS 5/5. MSK: PIPs, DIPs T0S0 No dactylitis Labs: Reviewed, including those as noted below 09/02/22: CBC unremarkable CMP: glucose 50. No results found for this or any previous visit (from the past 2352 hour(s)). Other Studies: PET CT 07/06/22: 1. ?? Focal uptake within the uncinate process of the pancreas, likely related to residual neuroendocrine tumor. ??There is separate, normal physiologic curvilinear uptake within the uncinate process. 2. ?? No evidence of distant metastatic disease. 3. ?? Ground-glass nodule in the right lower lobe is unchanged from 2020 and shows no abnormal uptake. 4. ?? Ground-glass nodule measuring 5 mm in the right lower lobe is unchanged from 2020 and shows no abnormal uptake. ??Continued attention on follow-up imaging is recommended. 5. ?? Prior partial gastrectomy and gastrojejunostomy without associated abnormal activity. CT abdomen/ pelvis 03/2022: 1. ??Stable 6 mm enhancing lesion within the uncinate process the pancreas, which may represent a small neuroendocrine tumor. 2. ??Stable lung base pulmonary nodules. 3. ??No evidence of progression of disease within the abdomen or pelvis. XR hands bilaterally 11/2021: IMPRESSION: No significant arthritis. Assessment & Recommendations Fabiola Gibson is a 56 year old female with hx of ? erosive osteoarthritis, vitamin D deficiency, neuroendocrine stomach/pancreatic tumors s/p distal gastrectomy 2018 who returns for follow up. On HCQ 300 mg daily (Started by Dr. Ballesteros's): Last Ophthalmology visit as per patient is 08/17/22 but no records available, PRN tylenol Recent Xrays in 11/2021 don't show any erosions or arthritic changes. ?? 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 Follows Oncology at [facility]. OnOctreotide injections. RECOMMENDATIONS: - Decrease HCQ to 200 mg daily from 300 mg. Plan to slowly taper the HCQ and watch for any flares in the future. - Continue Tylenol PRN - Continue annual eye exam to monitor drug toxicity (HCQ). Recommended to have the last office visit faxed to us (last seen on 08/17 as per patient but no documentation available) - Labs as below before next visit. - Follow up with oncologist for carcinoid tumor of stomach/ NET of pancreas. . ?? #. Follow-up: In 6 months or sooner if needed. This patient was seen and staffed with attending Dr. Vail. Pavan Frias MD Rheumatology Fellow [facility] Encounter orders: Orders Placed This Encounter ??? CBC WITH DIFFERENTIAL Order Specific Question: Release to patient Answer: Immediate ??? COMPREHENSIVE METABOLIC PANEL Order Specific Question: Release to patient Answer: Immediate ??? C-REACTIVE PROTEIN Order Specific Question: Release to patient Answer: Immediate ??? ERYTHROCYTE SEDIMENTATION RATE Order Specific Question: Release to patient Answer: Immediate ??? URINALYSIS W/MICROSCOPIC REFLEX TO CULTURE Order Specific Question: Release to patient Answer: Immediate MARKETING AGENT documented in this encounter Plan of Treatment Scheduled Orders Name Type Priority Associated Diagnoses Orde r Schedule CBC WITH DIFFERENTIAL Lab Routine Encounter for therapeutic drug monitoring Polyarthralgia Ordered: 09/09/2022 COMPREHENSIVE METABOLIC PANEL Lab Routine Encounter for therapeutic drug monitoring Polyarthralgia Ordered: 09/09/2022 C-REACTIVE PROTEIN Lab Routine Encounter for therapeutic drug monitoring Polyarthralgia Ordered: 09/09/2022 ERYTHROCYTE SEDIMENTATION RATE Lab Routine Encounter for therapeutic drug monitoring Polyarthralgia Ordered: 09/09/2022 URINALYSIS W/MICROSCOPIC REFLEX TO CULTURE Lab Routine Encounter for therapeutic drug monitoring Polyarthralgia Ordered: 09/09/2022 documented as of this encounter Visit Diagnoses Diagnosis Polyarthralgia- Primary Pain in joint, multiple sites Erosive osteoarthritis Osteoarthrosis involving, or with mention of more than one site, but not specified as generalized, site unspecified Encounter for therapeutic drug monitoring documented in this encounter Care Teams Cath Laboratory Technician Relationship Specialty Start Date End Date Elizabeth Borrego PA-C PCP - General 01/27/21 documented as of this encounter
--- OUTSIDE RECORDS SUMMARY | 2024-10-04 02:51 | XMS_ITS | Encounter Summary ---
Author Organization [facility] Address [address] [place] [address] Care Team Providers Care Cook Restaurant Name Role Phone Elizabeth Borrego PA-C Primary Care Provider [phone] Encounter Details Date Type Department Care Team (Late st Contact Info) Description 06/01/2023 Orders Only [facility] - Rheumatology [facility] [facility] [place] [id number] Pavan Frias MD [facility] [place] [address] Vitamin D deficiency ; Polyarthralgia; Rheumatoid arthritis with negative rheumatoid factor, involving unspecified site (HCC); Plantar fasciitis of right foot; Erosive osteoarthritis; Encounter for therapeutic drug monitoring [...] Primary Polyarthralgia Pain in joint, multiple sites Rheumatoid arthritis with negative rheumatoid factor, involving unspecified site (HCC) Plantar fasciitis of right foot Plantar fascial fibromatosis Erosive osteoarthritis Osteoarthrosis involving, or with mention of more than one site, but not specified as generalized, site unspecified Encounter for therapeutic drug monitoring documented in this encounter Care Teams Cook Restaurant Relationship Specialty Start Date End Date lEizabeth Borrego, NITA PCP - General 01/27/21 documented as of this encounter
--- OUTSIDE RECORDS SUMMARY | 2024-10-04 02:51 | XMS_ITS | Encounter Summary ---
Author Organization [facility] Address [address] [facility] [place] [address] Care Team Providers Care Body Fitter Name Role Phone Barbra Villalba Primary Care Pr ovider Encounter Details Date Type Department Care Team (Late st Contact Info) Description 12/06/2018 Orders Only [facility] [address] [place] [address] Paulina Dawson DO [address] [place] [id number] Social History Tobacco Use Types Packs/Day Years [...] Progress Notes * Paulina Dawson DO - 12/06/2018 9:00 AM CST Call returned to patient. Has swelling in ankles and behind knee (sounds like a possible Duke's cyst). Naproxen has helped but still having a lot of morning stiffness and pain. Discussed options. I would like her to be seen by her PCP-just to make sure it is actually joint swelling and not something more concerning like a DVT--does not sound like that based on her description but we do not have any openings coming up for her to be seen. Will prescribe quick taper of prednisone to see if that helps. If not, we discussed that we will find a time for her to come in since her next visit is not scheduled until January. Paulina Dawson DO Rheumatology Fellow [facility] Pager: [phone] ESSING [employer]AL[employer] AND BORATE SUPERVISOR documented in this encounter Plan of Treatment Not on file documented as of this encounter Visit Diagnoses Not on filedocumented in this encounter Care Teams Body Fitter Relationship Specialty Start Date End Date Barbra Villalba PA [address] [place] [address] PCP - General 01/05/18 01/03/19 documented as of this encounter
--- OUTSIDE RECORDS SUMMARY | 2024-10-04 02:51 | XMS_ITS | Encounter Summary ---
Author Organization [facility] Address [address] [place] [address] Care Team Providers Care Logistics Lead Name Role Phone Barbra Villalba Primary Care Pr ovider Reason for Visit * Reason Onset Date Comments Pain 11/10/2018 Encounter Details Date Type Department Care Team (Late st Contact Info) Description 11/10/2018 Telephone [facility] - Rheumatology [address] [place] [address] Paulina Dawson DO [address] [facility] [address] [facility] [place] [address] Pain Social History Tobacco Use Types Packs/Day Years [...] Telephone Encounter - Paulina Dawson DO - 11/10/2018 1:10 PM CST Returned call topatient. No answer. Will try again at later date. Message left. 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
--- OUTSIDE RECORDS SUMMARY | 2024-10-04 02:51 | XMS_ITS | Encounter Summary ---
Author Organization [facility] Address [address] [place] [address] Care Team Providers Care Medical Research Associate Name Role Phone Barbra Villalba Primary Care Pr ovider Reason for Visit * Reason Onset Date Comments Pain Arm 07/05/2019 Encounter Details Date Type Department Care Team (Late st Contact Info) Description 07/05/2019 Telephone [facility] [address] [place], [place] [id number] Paulina Dawson DO [address] [facility] [address] [place] [address] Pain Arm Social History Tobacco Use Types Packs/Day Years [...] Telephone Encounter - Paulina Dawson DO - 07/05/2019 2:34 PM CDT Carcinoid tumor has returned. Pt having partial gastrectomy in August. More stiff in her joints recently. Only taking HCQ 200 mg daily, should be on 300. Will increase. documented in this encounter Plan of Treatment Not on file documented as of this encounter Visit Diagnoses Not on filedocumented in this encounter Care Teams Medical Research Associate Relationship Specialty Start Date End Date Barbra Villalba PA [address] [place] [address] PCP - General 03/08/19 01/26/21 documented as of this encounter
--- OUTSIDE RECORDS SUMMARY | 2024-10-04 02:51 | XMS_ITS | Encounter Summary ---
Author Organization [facility] Address [address] [place] [address] Care Team Providers Care Boat Person Name Role Phone Elizabeth Borrego PA-C Primary Care Provider [phone] Reason for Visit * Reason Onset Date Comments Med Question 05/20/2023 Encounter Details Date Type Department Care Team (Late st Contact Info) Description 05/20/2023 Telephone [facility] - Rheumatology [address] [place] [address] [place] [id number] Pavan Frias MD [facility] [address] Med Question Social History Tobacco Use [...] Telephone Encounter - Pavan Frias MD - 05/20/2023 7:45 PM CDT Called patient after receiving her message. Had avendaño cyst drained again in April. Her Orthopaedic doctor, Dr. Jason Barber at [facility] got Xrays and MRIs with no structural issue as cause which could benefit from surgical intervention and given the fact that injections are becoming less effective, recommend further Rheumatology wok up to rule out an inflammatory process that could benefit for medical therapy. 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 In 2017, she had autoimmune workup which was negative. Will discuss with Dr. Vail and let patient know. She agreed with the plan. documented in this encounter Plan of Treatment Not on file documented as of this encounter Visit Diagnoses Not on filedocumented in this encounter Care Teams Boat Person Relationship Specialty Start Date End Date Elizabeth Borrego PA-C PCP - General 01/27/21 documented as of this encounter
--- OUTSIDE RECORDS SUMMARY | 2024-10-04 02:51 | XMS_ITS | Encounter Summary ---
Author Organization [facility] Address [address] [place] [address] Care Team Providers Care Aggregate Conveyor Operator Name Role Phone Barbra Villalba Primary Care Pr ovider Reason for Visit * Reason Comments Follow-up erosive OA; Encounter Details Date Type Department Care Team (Latest Contact Info) Description 09/06/2019 10:30 AM FLEET MANAGER/DISPATCH Office Visit [facility] [address] [place] [address] Paulina Dawson, DO [address] [place] [address] Erosive osteoarthritis (Primary Dx); Vitamin D deficiency; Encounter for therapeutic drug monitoring; Joint swelling; Carcinoid tumor of stomach, unspecified whether malignant (HCC) Social History Tobacco Use Types Packs/Day [...] Sign Reading Time Taken Comments Blood Pressure 104/66 09/06/2019 10:43 AM FLEET MANAGER/DISPATCH Pulse 52 09/06/2019 10:43 AM FLEET MANAGER/DISPATCH Temperature 36.4 ??C (97.5 ??F) 09/06/2019 10:[address] Respiratory Rate - - Oxygen Saturation - - Inhaled Oxygen Concentration - - Weight 70.8 kg (156 lb) 09/06/2019 10:43 AM FLEET MANAGER/DISPATCH Height - - Body Mass Index 27.2 07/20/2018 8:36 AM CDT documented in this encounter Patient Instructions * Patient Instructions* Paulina Dawson DO - 09/06/2019 10:59 AM FLEET MANAGER/DISPATCH 1. Continue plaquenil 200 mg daily. Call me if joints worsen over the winter. 2. Continue vitamin D. 3. Follow up in 6 months. If you need to change or cancel your Rheumatology appointment - At the [facility] Building at [address], [address], call [phone] If you need a refill request, have your pharmacy fax a request to [phone] If you need to leave a message for Dr. Dawson, you can send her an electronic message via [facility] voicemail at [phone]. Her office FAX number is [phone]. For after hours emergency only, you can call the [facility] invoicing machine operator at [phone] and ask for the Foil Operator director transportation to be paged. T MANAGER/DISPATCH documented in this encounter Progress Notes * Bessie Vail MD - 09/06/2019 11:00 AM CST Patient seen and examined with fellow Dr. Dawson. Please see note for further details. I confirm history, exam, assessment and plan. In addition I note: Interval history: patient is 54 year old female with the h/o erosive OA , who reports feeling well.Medicine helping her with joint pain Exam: Vitals: 09/06/19 1043 BP: 104/66 Pulse: 52 Temp: 97.5 ??F (36.4 ??C) Weight: 156 lb (70.8 kg) no joint tenderness or swelling No skin rash Heart: RRR Lungs: clear MS 5/5 all four extremities Assessment/Plan: Dr. 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 Carcinoid tumor of the stomach, s/p surgery 3. Anemia F/u 4 months 09/06/2019 11:00 AM See fellow's note for further details Bessie Vail MD T MANAGER/DISPATCH * Paulina Dawson DO - 09/06/2019 10:28 AM CST [facility] Division of Adult & Pediatric Rheumatology Follow up Visit 07/20/2018 Diagnosis/Problem(s): Erosive osteoarthritis Vitamin D deficiency Encounter for therapeutic drug monitoring Neuroendocrine (carcinoid) tumor Interval History: Fabiola Gibsno is a White/ female with a previous diagnosis of seronegative RA who presents for follow up visit. Patient was last seen in February 2019. Since she was last seen, she has continued on the hydroxychloroquine. She has consistently been taking 200 mg daily and occasionally remembers to alternate the 400 mg/200 mg--Her joints have been feeling fine. She denies any morning stiffness, swelling. She is not requiring any PRN NSAIDs. She had her visual field testing last week. She will have them send us the results. Her carcinoid tumor returned and she underwent partial gastrectomy 2 weeks ago at [facility]. She is following up with the surgeon and the oncologist in the next couple of weeks. Review of Systems: General: -fatigue, -fever, -wt [...] in her mother; Osteoporosis in her mother. Social History: Social History Socioeconomic History ??? Marital status: Spouse name: Not on file ??? Number of children: Not on file ??? Years of education: Not on file ??? Highest education level: Not on file Occupational History ??? Not on file Social Needs ??? Financial resource strain: Not on file ??? Food insecurity: Worry: Not on file Inability: Not on file ??? Transportation needs: Medical: Not on file Non-medical: Not on file Tobacco Use ??? Smoking status: Former Smoker Last attempt to quit: 02/25/2000 Years since quittin.5 ??? Smokeless tobacco: Never Used Substance and Sexual Activity ??? Alcohol use: Yes Alcohol/week: 3.0 standard drinks ??? Drug use: No ??? Sexual activity: Not on file Lifestyle ??? Physical activity: Days per week: Not on file Minutes per session: Not on file ??? Stress: Not on file Relationships ??? Social connections: Talks on phone: Not on file Gets together: Not on file Attends cheondoism service: Not on file Active member of club or organization: Not on file Attends meetings of clubs or organizations: Not on file Relationship status: Not on file ??? Intimate partner violence: Fear of current or ex partner: Not on file Emotionally abused: Not on file Physically abused: Not on file Forced sexual activity: Not on file Other Topics Concern ??? Not on file Social History Narrative ??? Not on file Current Medications: Current Outpatient Medications Medication Sig [...] Take 50 mg by mouth DAILY. ??? omeprazole (PRILOSEC) 20 MG capsule Take 20 mg by mouth daily before breakfast ??? pravastatin (PRAVACHOL) 40 MG tablet Take 40 mg by mouth DAILY. No current facility-administered medications for this visit. Allergies: FABIOLA Stevenson No Known Allergies. Physical Exam: BP 104/66 (BP SITE: RIGHT ARM, BP POSITION: SITTING, BP CUFF SIZE: 11) Pulse 52 Temp 97.5 ??F (36.4??C) (Oral) Wt 156 lb (70.8 kg) BMI 27.2 [...] murmur, no rub or gallop Abdomen; soft, tender at surgical sites. non-distended, no HSM Neurologic: grossly intact, alert, [...] Anti dsDNA negative Anti Scl-70 negative Anti Sm/ADMINISTRATIVE ASSISTANT COORDINATOR negative Anti Sm negative Anti Centromere negative [...] and will have it sent to us. Also with history of recurrent carcinoid tumor, follow with [facility] Heme/Onc. Plan: 1. Continue current regimen of ?? HCQ 200 mg daily. If joint pain increases over the winter will increase to 300 mg daily. ?? Aleve 220 mg BID. 2. We recommend continued exercise, daily stretching. 3. Patient will have eye exam faxed to us. Needs regular eye exams every 6 months to 1 year. 4. Labs/Imaging Ordered: As below 5. Return to clinic in 6 months. ?? This patient was seen and the plan of care was discussed with attending physician Dr. Vail. Paulina Dawson DO Rheumatology Fellow [facility] Pager: [phone] Orders Placed This Encounter ??? hydroxychloroquine (PLAQUENIL) 200 MG tablet T MANAGER/DISPATCH documented in this encounter Plan of Treatment Not on file documented as of this encounter Visit Diagnoses Diagnosis Erosive osteoarthritis- Primary Osteoarthrosis involving, or with mention of more than one site, but not specified as generalized, site unspecified Vitamin D deficiency Encounter for therapeutic drug monitoring Joint swelling Effusion of joint, site unspecified Carcinoid tumor of stomach, unspecified whether malignant (HCC) documented in this encounter Care Teams Aggregate Conveyor Operator Relationship Specialty Start Date End Date Barbra Villalba PA [address] [place] [address] PCP - General 03/08/19 01/26/21 documented as of this encounter
--- OUTSIDE RECORDS SUMMARY | 2024-10-04 02:51 | XMS_ITS | Encounter Summary ---
Author Organization [facility] Address [address] [facility] [place] [address] Care Team Providers Care Indoor Sports Centre Manager Name Role Phone Elizabeth Borrego PA-C Primary Care Provider [phone] Reason for Visit * Reason Onset Date Comments Med Question 04/26/2023 Encounter Details Date Type Department Care Team (Late st Contact Info) Description 04/26/2023 Telephone [facility] - Rheumatology [address] [place] [address] [place] [id number] Pavan Frias MD [facility] [address] [facility] [place] [address] Med Question Social History Tobacco Use [...] Telephone Encounter - Pavan Frias MD - 04/26/2023 6:32 PM CDT Called and left message for the patient. Sent following Nae, Sorry to hear that. Just called and left a message for you. Can you send me a picture of your hands that ar swollen and after that we can talk and discuss nextsteps. Dr. Frias documented in this encounter Plan of Treatment Not on file documented as of this encounter Visit Diagnoses Not on filedocumented in this encounter Care Teams Indoor Sports Centre Manager Relationship Specialty Start Date End Date Elizabeth Borrego PA-C PCP - General 01/27/21 documented as of this encounter
--- OUTSIDE RECORDS SUMMARY | 2024-10-04 02:51 | XMS_ITS | Encounter Summary ---
Author Organization [facility] Address [address] [place] [address] Care Team Providers Care Tubing Tester Name Role Phone Barbra Villalba Primary Care Pr ovider Reason for Visit * Reason Onset Date Comments Results 09/01/2018 Encounter Details Date Type Department Care Team (Late st Contact Info) Description 09/01/2018 Telephone [facility] [address] [place] [address] Paulina Dawson DO [address] [facility] [address] [place] [address] Results Social History Tobacco Use [...] Telephone Encounter - Paulina Dawson DO - 09/01/2018 12:34 PM CST Called pt, discussed most recent lab results. Questions answered. Paulina Dawson DO Rheumatology Fellow [facility] Medicine Pager: [phone] [place] SALES ASSISTANT documented in this encounter Plan of Treatment Not on file documented as of this encounter Visit Diagnoses Not on filedocumented in this encounter Care Teams Tubing Tester Relationship Specialty Start Date End Date Barbra Villalba PA [address] [place] [address] PCP - General 01/05/18 01/03/19 documented as of this encounter
--- OUTSIDE RECORDS SUMMARY | 2024-10-04 02:51 | XMS_ITS | Encounter Summary ---
Author Organization [facility] Address [address] [place] [address] Care Team Providers Care Stitching Department Supervisor Name Role Phone Elizabeth Borrego PA-C Primary Care Provider [phone] Encounter Details Date Type Department Care Team (Late st Contact Info) Description 10/15/2022 Orders Only [facility] [address] [facility] [place] [id number] Mitul Lambert MD [address] [place] [address] Rd [address] [place] [address] Erosive osteoarthritis; Vitamin D deficiency; Encounter for [...] monitoring documented in this encounter Care Teams Stitching Department Supervisor Relationship Specialty Start Date End Date Elizabeth Borrego PA-C PCP - General 01/27/21 documented as of this encounter
--- OUTSIDE RECORDS SUMMARY | 2024-10-04 02:51 | XMS_ITS | Encounter Summary ---
Author Organization [facility] Address [address] [place] [address] Care Team Providers Care Automobile Body Repair Supervisor Name Role Phone Elizabeth Borrego PA-C Primary Care Provider [phone] Encounter Details Date Type Department Care Team (Latest Contact Info) Description 11/26/2021 10:33 AM INDUSTRIAL ECONOMICS TEACHER - 11/26/2021 11:59 PM INDUSTRIAL ECONOMICS TEACHER Hospital Encounter [facility] DIAGNOSTIC RAD OP [address] [place] [address] Bessie Vail MD [address] [facility] [address] [place] [address] Discharge Disposition: Home or Self Care Social [...] COVID-19? No / Unsure 11/26/2021 10:26 AM INDUSTRIAL ECONOMICS TEACHER documented as of this encounter Medications at Time of Discharge Medication Sig Dispensed Refills Start Date End Date buPROPion XL 24hr (WELLBUTRIN-XL) 150 MG tablet Take 150 mg by mouth once daily cyanocobalamin (VITAMIN B-12) injection 100 mcg 01/30/2020 Ergocalciferol (VITAMIN D2) 2000 units Take 1 tablet by mouth once daily escitalopram (LEXAPRO) 10 MG tablet Take 10 mg by mouth once daily octreotide (SANDOSTATIN) 100 MCG/ML injection 1 mL IM injection 10mg per pt. For malignant carcinoid tumor of stomach pravastatin (PRAVACHOL) 40 MG tablet Take 40 mg by mouth DAILY. 02/07/2017 valsartan-hydroCHLOROt hiazide (DIOVAN HCT) 160-12.5 MG tablet 12/03/2019 hydroxychloroquine (PLAQUENIL) 200 MG tabletIndications:[place] avery osteoarthritis,Vitamin D deficiency,Encounter for therapeutic drug monitoring Take 1.5 (one and one-half) tablets by mouth once daily 180 tablet 1 08/27/2021 01/21/2022 documented as of this encounter Plan of Treatment Not on file documented as of this encounter Procedures Procedure Name Priority Date/Time Associated Diagnosis Comments XR HAND RIGHT 3VW OR MORE Routine 11/26/2021 10:44 AM INDUSTRIAL ECONOMICS TEACHER Erosive osteoarthritis Rheumatoid arthritis with negative rheumatoid factor, involving unspecified site (HCC) XR HAND LEFT 3VW OR MORE Routine 11/26/2021 10:44 AM INDUSTRIAL ECONOMICS TEACHER Erosive osteoarthritis Rheumatoid arthritis with negative rheumatoid factor, involving unspecified site (HCC) documented in this encounter Results * XR HAND RIGHT 3VW OR MORE (11/26/2021 10:44 AM INDUSTRIAL ECONOMICS TEACHER) Anatomical Region Laterality Modality Wrist / Hand Radiographic Ke ging 11/26/2021 11:1 9 AM INDUSTRIAL ECONOMICS TEACHER Impressions 11/26/2021 11:53 AM INDUSTRIAL ECONOMICS TEACHER IMPRESSION: No significant arthritis. Dictated by John Cruz D.O. (Poultry Tender) I, Dr. VLAD ORELLANA MD have personally reviewed and interpreted this examination/study. This report was electronically signed by VLAD ORELLANA MD ??on 11/26/2021 11:53 AM . Narrative 11/26/2021 11:53 AM INDUSTRIAL ECONOMICS TEACHER EXAMINATION: XR HAND RIGHT 3VW OR [...] significant arthritis. Dictated by John Cruz D.O. (Poultry Tender) IDr. VLAD MD have personally reviewed and interpreted this examination/study. This report was electronically signed by VLAD ORELLANA MD on11/26/2021 11:53 AM . Bessie Vail MD DIAGNOSTIC KE GING ORDERABLES * XR HAND LEFT 3VW OR MORE (11/26/2021 10:44 AM INDUSTRIAL ECONOMICS TEACHER) Anatomical Region Laterality Modality Wrist / Hand Radiographic Ke ging 11/26/2021 11:1 9 AM INDUSTRIAL ECONOMICS TEACHER Impressions 11/26/2021 11:53 AM INDUSTRIAL ECONOMICS TEACHER IMPRESSION: No significant arthritis. Dictated by John Cruz D.O. (Poultry Tender) Dr. VALD Staley MD have personally reviewed and interpreted this examination/study. This report was electronically signed by VLAD ORELLANA MD ??on 11/26/2021 11:53 AM . Narrative 11/26/2021 11:53 AM INDUSTRIAL ECONOMICS TEACHER EXAMINATION: XR HAND RIGHT 3VW OR [...] significant arthritis. Dictated by John Cruz D.O. (Poultry Tender) I, Dr. VLAD ORELLANA MD have personally reviewed and interpreted this examination/study. This report was electronically signed by VLAD ORELLANA MD on11/26/2021 11:53 AM . Bessie Vail MD DIAGNOSTIC KE GING ORDERABLES documented in this encounter Visit Diagnoses Diagnosis Erosive osteoarthritis Osteoarthrosis involving, or with mention of more than one site, but not specified as generalized, site unspecified Rheumatoid arthritis with negative rheumatoid factor, involving unspecified site (HCC) documented in this encounter Care Teams Automobile Body Repair Supervisor Relationship Specialty Start Date End Date Elizabeth Borrego PA-C PCP - General 01/27/21 documented as of this encounter
--- OUTSIDE RECORDS SUMMARY | 2024-10-04 02:52 | XMS_ITS | Encounter Summary ---
Author Organization [facility] Address [address] [place] [address] Phone Care Team Providers Care Office Systems Technology Instructor Name Role Phone Barbra Goddard Primary Care Provider [phone] Reason for Visit * Reason Onset Date Comments Results 04/25/2020 EGD at [place] Encounter Details Date Type Department Care Team (Late st Contact Info) Description 04/25/2020 Telephone [facility] - Gastroenterology [facility] [address] [place] [address] Guru Winters, DO [address] [address] Results (EGD at [place]) Social History Tobacco Use Types Packs/Day Years Used Date Smoking Tobacco: Never Smokeless Tobacco: Never Comments Unknown Sex and Gender Information Value Date Recorded Sex Assigned at Not on file Legal Sex Female 1:48 PM CDT Gender Identity Not on file Sexual Orientation Not on file documented as of this encounter Miscellaneous Notes * Telephone Encounter - Neela Hollins RN - 04/25/2020 10:33 AM CDT Facility: [place] Test: EGD Results: biopsies negative Orders: EUS with Dr. Eileen mackey regarding submucosal lesion and history carcinoid Test on: 04/18/20 Placed in paperwork to go to [facility] on: 04/25/20 Patient notified of results and verbalizes understanding. See encounter on 04/18/20 for EUS Patient has appointment on 04/29/20 for EUS documented in this encounter Plan of Treatment Not on file documented as of this encounter Visit Diagnoses Not on filedocumented in this encounter Care Teams Office Systems Technology Instructor Relationship Specialty Start Date End Date Barbra Goddard PA PCP - General Family Medicine 05/30/19 documented as of this encounter
--- OUTSIDE RECORDS SUMMARY | 2024-10-04 02:52 | XMS_ITS | Encounter Summary ---
Author Organization [facility] Address [address] [place] [address] Phone Care Team Providers Care Portrait Studio Photographer Name Role Phone Barbra Goddard Primary Care Provider [phone] Encounter Details Date Type Department Care Team (Late st Contact Info) Description 01/22/2020 Telephone [facility] - Gastroenterology [facility] [address] [place] [address] Guru Winters, DO [address] [address] [place] [address] Social History Tobacco Use Types Packs/Day Years Used Date Smoking Tobacco: Never Smokeless Tobacco: Never Comments Unknown Sex and Gender Information Value Date Recorded Sex Assigned at Not on file Legal Sex Female 1:48 PM CDT Gender Identity Not on file Sexual Orientation Not on file documented as of this encounter Miscellaneous Notes * Telephone Encounter - Rod Serrano CMA - 01/22/2020 12:02 PM CDT Patient has recall for EGD, can you place an order documented in this encounter Plan of Treatment Not on file documented as of this encounter Visit Diagnoses Not on filedocumented in this encounter Care Teams Portrait Studio Photographer Relationship Specialty Start Date End Date Barbra Goddard PA PCP - General Family Medicine 05/30/19 documented as of this encounter
--- OUTSIDE RECORDS SUMMARY | 2024-10-04 02:52 | XMS_ITS | Encounter Summary ---
Author Organization [facility] Address [address] [place] [address] Phone Care Team Providers Care Lathe Turner Name Role Phone Barbra Goddard Primary Care Provider [phone] Reason for Referral * Consult, Test & Initiate Treatment (Less Than 3 Days) - Closed Specialty Diagnoses / Procedures Referred By Clemencia mendez Referred To Contact Diagnoses Carcinoid tumor of stomach, unspecified whether malignant Guru Winters DO Phone: tel: fax: Agustin Brown MD Phone: tel: fax: Referral ID Status Reason Start Date Expiration Date Visits Re quested Visits Authorized [id number] Closed 04/18/2020 1 1 Scheduling Instructions Fabiola is being referred to Dr. Arellano at [facility] or other specialist in patient's insurance network for EUS regarding submucosal lesion and history of gastric carcinoid before 05/13/20. See below for Fabiola's current medications, allergies and problem list. Please contact patient for scheduling questions or concerns. CURRENT MEDS: Current Outpatient Medications: buPROPion (WELLBUTRIN) 150 MG XL tablet, , Disp: , Rfl: escitalopram (LEXAPRO) 10 MG Tablet, Take 10 mg by mouth daily., Disp: , Rfl: losartan-hydrochlorothiazide (HYZAAR) 50-12.5 MG Tablet, Take 1 Tab by mouth daily., Disp: , Rfl: omeprazole (PRILOSEC) 20 MG CAPSULE DELAYED RELEASE, TAKE 1 CAPSULE BY MOUTH EVERY DAY, Disp: 30 Cap, Rfl: 6 polyethylene glycol (MIRALAX) Powder, Use entire bottle of 255 grams of miralax for Colon prep as directed by office. (Patient not taking: Reported on 05/30/2019), Disp: 255 g, Rfl: 0 polyethylene glycol (MIRALAX) Powder, Use entire 255g bottle with 64oz of clear liquid as directed for colonoscopy prep. (Patient not taking: Reported on 05/30/2019), Disp: 255 g, Rfl: 0 pravastatin (PRAVACHOL) 40 MG Tablet, , Disp: , Rfl: No current facility-administered medications for this visit. ALLERGIES: Not on File PROBLEM LIST: There is no problem list on file for this patient. Reason for Visit * Reason Onset Date Comments Need Order 04/18/2020 EUS order Encounter Details Date Type Department Care Team (Late st Contact Info) Description 04/18/2020 Telephone [facility] - Gastroenterology [facility] [address] [place] [address] Guru Winters DO [address] [address] Need Order (EUS order) Social History Tobacco Use Types Packs/Day Years Used Date Smoking Tobacco: Never Smokeless Tobacco: Never Comments Unknown Sex and Gender Information Value Date Recorded Sex Assigned at Not on file Legal Sex Female 1:48 PM CDT Gender Identity Not on file Sexual Orientation Not on file documented as of this encounter Miscellaneous Notes * Telephone Encounter - Neela Hollins RN - 04/22/2020 12:46 PM CDT Anna with Dr. Arellano's office returned call and left message stating the fax number was [phone]. Anna also left on the voicemail that there should be no problem getting the patient in before 05/13/20. Faxed over facesheet/order/pathology and EGD report. Confirmation recieved. * Telephone Encounter - Neela Hollins RN - 04/18/2020 2:52 PM CDT Patient notified of referral and verbalizes understanding. Patient seen Dr. Arellano in the past forEUS. Called Dr. Arellano's office and had to leave a detailed message that we were referring the patient back and would send information over. Marciano Garcia MD?? [address] [place] [address]?? [phone]? * Telephone Encounter - Neela Hollins RN - 04/18/2020 2:40 PM CDT Per written order on [employer] billing form (scanned into [employer]) from Dr. Winters for patient to have an EUS set up with Dr. Arellano at [facility] soon (before 05/13/20), regarding submucosal lesion and historyof gastric carcinoid. documented in this encounter Plan of Treatment Not on file documented as of this encounter Results * EXTERNAL GASTROENTEROLOGY REFERRAL (03/24/2021) Guru Winters DO OUTPT REFERRALS EXT/INT Final R esult documented in this encounter Visit Diagnoses Diagnosis Carcinoid tumor of stomach, unspecified whether malignant- Primary documented in this encounter Care Teams Lathe Turner Relationship Specialty Start Date End Date Barbra Goddard PA PCP - General Family Medicine 05/30/19 documented as of this encounter
--- OUTSIDE RECORDS SUMMARY | 2024-10-04 02:52 | XMS_ITS | Encounter Summary ---
Author Organization [facility] Address [address] [facility] [place] [address] Phone Care Team Providers Care Cap Sewer Name Role Phone Barbra Goddard Primary Care Provider [phone] Encounter Details Date Type Department Care Team (Late st Contact Info) Description 03/29/2020 Telephone [facility] - Gastroenterology [facility] [address] [place] [address] Guru Winters, DO [address] [address] Social History Tobacco Use Types Packs/Day Years Used Date Smoking Tobacco: Never Smokeless Tobacco: Never Comments Unknown Sex and Gender Information Value Date Recorded Sex Assigned at Not on file Legal Sex Female 1:48 PM CDT Gender Identity Not on file Sexual Orientation Not on file documented as of this encounter Miscellaneous Notes * Telephone Encounter - Mer Ribeiro - 03/29/2020 8:51 AM CDT Covid Testing Information for Yazan documented in this encounter Plan of Treatment Not on file documented as of this encounter Visit Diagnoses Not on filedocumented in this encounter Care Teams Cap Sewer Relationship Specialty Start Date End Date Barbra Goddard PA PCP - General Family Medicine 05/30/19 documented as of this encounter
--- OUTSIDE RECORDS SUMMARY | 2024-10-04 02:52 | XMS_ITS | Encounter Summary ---
Author Organization [facility] Address [address] [place] [place] [address] Phone Care Team Providers Care Linen Room Custodian Name Role Phone Barbra Goddard Primary Care Provider [phone] Reason for Referral * Other (Routine) - Closed Specialty Diagnoses / Procedures Referred By Clemencia mendez Referred To Contact Gastroenterology Diagnoses Carcinoid tumor of stomach, unspecified whether malignant Procedures GASTRO PROCEDURE EGD with Dr. Winters 04/18/2020 Pablito Winters DO Phone: tel: fax: Pablito Winters DO Phone: tel: fax: Referral ID Status Reason Start Date Expiration Date Visits Re quested Visits Authorized [id number] Closed 02/19/2020 1 1 * Radiology Services (Routine) - Closed Specialty Diagnoses / Procedures Referred By Clemencia mendez Referred To Contact Diagnoses Carcinoid tumor of stomach, unspecified whether malignant Procedures US GASTROINTESTINAL ENDOSCOPIC Pablito Winters DO Phone: tel: fax: [address] [place] [address] Phone: tel: fax: Referral ID Status Reason Start Date Expiration Date Visits Re quested Visits Authorized [id number] Closed 02/19/2020 1 1 Encounter Details Date Type Department Care Team (Late st Contact Info) Description 02/19/2020 Telephone [facility] - Gastroenterology - [place] [address] [place] [address] Pablito Winters DO [address] [address] Social History Tobacco Use Types Packs/Day Years Used Date Smoking Tobacco: Never Smokeless Tobacco: Never Comments Unknown Sex and Gender Information Value Date Recorded Sex Assigned at Not on file Legal Sex Female 1:48 PM CDT Gender Identity Not on file Sexual Orientation Not on file documented as of this encounter Miscellaneous Notes * Addendum Note - Pablito Winters DO - 02/19/2020 9:45 AM CDTAddended by: PABLITO WINTERS on: 02/19/2020 09:45 AM Modules accepted: Orders * Telephone Encounter - Rod Serrano CMA - 02/19/2020 8:41 AM CDT Patient has a recall for EDG/EUS to be done, can you put order in documented in this encounter Plan of Treatment Scheduled Orders Name Type Priority Associated Diagnoses Orde r Schedule US GASTROINTESTINAL ENDOSCOPIC Imaging Routine Carcinoid tumor of stomach, unspecified whether malignant Expected: 05/21/2020, Expires: 08/21/2020 GASTRO PROCEDURE Procedures Routine Carcinoid tumor of stomach, unspecified whether malignant Expected: 07/24/2020 (Approximate), Expires: 02/18/2021 documented as of this encounter Visit Diagnoses Diagnosis Carcinoid tumor of stomach, unspecified whether malignant- Primary documented in this encounter Care Teams Linen Room Custodian Relationship Specialty Start Date End Date Barbra Goddard PA PCP - General Family Medicine 05/30/19 documented as of this encounter
--- OUTSIDE RECORDS SUMMARY | 2024-10-04 02:52 | XMS_ITS | Encounter Summary ---
Author Organization [facility] Address [address] [place] [address]. [place], [place] [address] [place] [address] Care Team Providers Care Autocad Detailer Name Role Phone Unavailable Primary Care Provider Unavailabl e Encounter Details Date Type Department Care Team (Late st Contact Info) Description 11/15/[address] [facility] Diagnostic Imaging [address] [place], [place] [id number] , Julia Han MD Social History Tobacco Use Types Packs/Day Years Used Date Smoking Tobacco: Never Assessed Comments Unknown Sex and Gender Information Value Date Recorded Sex Assigned at Not on file Legal Sex Female 6:23 PM CDT Gender Identity Not on file Sexual Orientation Not on file documented as of this encounter Plan of Treatment Not on file documented as of this encounter Visit Diagnoses Not on filedocumented in this encounter
--- OUTSIDE RECORDS SUMMARY | 2024-10-04 02:52 | XMS_ITS | Encounter Summary ---
Author Organization [facility] Address [address] [place] [address] Phone Care Team Providers Care Unit Manager Rn Name Role Phone Barbra Goddard Primary Care Provider [phone] Encounter Details Date Type Department Care Team (Late st Contact Info) Description 11/04/2020 Telephone [facility] - Gastroenterology [facility] [address] [place] [address] Guru Winters, DO [address] [address] Social History Tobacco Use Types Packs/Day Years Used Date Smoking Tobacco: Never Smokeless Tobacco: Never Comments Unknown Sex and Gender Information Value Date Recorded Sex Assigned at Not on file Legal Sex Female 1:48 PM CDT Gender Identity Not on file Sexual Orientation Not on file documented as of this encounter Miscellaneous Notes * Telephone Encounter - Mer Ribeiro - 11/04/2020 2:16 PM CST Colonoscopy Prep instructions ER SERVICES COORDINATOR documented in this encounter Plan of Treatment Not on file documented as of this encounter Visit Diagnoses Not on filedocumented in this encounter Care Teams Unit Manager Rn Relationship Specialty Start Date End Date Barbra Goddard PA PCP - General Family Medicine 05/30/19 documented as of this encounter
--- OUTSIDE RECORDS SUMMARY | 2024-10-04 02:52 | XMS_ITS | Clinical Summary ---
Author Organization [facility] Address [address] [place] [address]. [place], [place] [address] [place] [address] Care Team Providers Care Manager Medicare Marketing Name Role Phone Unavailable Primary Care Provider Unavailabl e Social History Tobacco Use Types Packs/Day Years Used Date Smoking Tobacco: Never Assessed Comments Unknown Sex and Gender Information Value Date Recorded Sex Assigned at Not on file Legal Sex Female 6:23 PM CDT Gender Identity Not on file Sexual Orientation Not on file Plan of Treatment Health Maintenance Due Date Last Done Comments Cervical Cancer Screening Pa p Smear (Age 30 to 64) Every 3 Years 1966 Colorectal Cancer Screening Colonoscopy (10 Years) 1966 Annual Physical 1969 Hepatitis C 1984 DTaP, Tdap and Td Vaccines ( 1 - Tdap) 1985 Hepatitis B Vaccines (1 of 3 - 19+ 3-dose series) 1985 Cervical Cancer Screening Pa p with HPV Testing (Age 30 to 64) Every 5 Years 1996 Cervical Cancer Screening with HPV 1996 Mammogram Screening 2006 Zoster Vaccines (1 of 2) 2016 COVID-19 Vaccine (2023-2 5 season) 2024 Influenza Adult (#1) 2024 Meningococcal Vaccine Aged Out No alf tamela eligible based on patient's age to complete this topic Pneumococcal Vaccine: Pediat rics (0 to 5 Years) and At-Risk Patients (6 to 64 Years) Aged Out No longer eligible b ased on patient's age to complete this topic RSV Immunizations Under 20 Months Aged Out No longer eligible based on patient's age to complete this topic
--- OUTSIDE RECORDS SUMMARY | 2024-10-04 02:52 | XMS_ITS | Clinical Summary ---
Author Organization [facility] Address [address], [facility] [address] [place] [address] Phone Care Team Providers Care Dial Screw Assembler Name Role Phone Barbra Goddard Primary Care Provider [phone]- [phone] Medications polyethylene glycol (MIRALAX) Powder Use entire 255g bottle with 64oz of clear liquid as directed for colonoscopy prep. 255 g 0 7 Active Additional Information Patient not taking.Reported on 05/30/2019 polyethylene glycol (MIRALAX) Powder Use entire bottle of 255 grams of miralax for Colon prep as directed by office. 255 g 8 Active Additional Information Patient not taking.Reported on 05/30/2019 losartan-hydroc hlorothiazide (HYZAAR) 50-12.5 MG Tablet Take 1 Tab by mouth daily. Active pravastatin (PRAVACHOL) 40 MG Tablet 9 Active buPROPion (WELLBUTRIN) 150 MG XL tablet 9 Active escitalopram (LEXAPRO) 10 MG Tablet Take 10 mg by mouth daily. Active omeprazole (PRILOSEC) 20 MG CAPSULE DELAYED RELEASE TAKE 1 CAPSULE BY MOUTH EVERY DAY 30 Cap 6 9 Active Family History Medical History Relation Name Comments No Known Problems Father No Known Problems Maternal Aunt No Known Problems Mother Relation Name Status Comments Father Copd Maternal Aunt Ovarian cancer Mother Diabetis Social History Tobacco Use Types Packs/Day Years Used Date Smoking Tobacco: Never Smokeless Tobacco: Never Comments Unknown Sex and Gender Information Value Date Recorded Sex Assigned at Not on file Legal Sex Female 1:48 PM CDT Gender Identity Not on file Sexual Orientation Not on file Last Filed Vital Signs Vital Sign Reading Time Taken Comments Blood Pressure 122/74 05/30/2019 1:13 PM CDT Pulse 78 05/30/2019 1:13 PM CDT Temperature - - Respiratory Rate - - Oxygen Saturation 97% 05/30/2019 1:13 PM CDT Inhaled Oxygen Concentration - - Weight 64.4 kg (142 lb) 05/30/2019 1:13 PM CDT Height - - Body Mass Index - - Plan of Treatment Health Maintenance Due Date Last Done Comments Hepatitis C Virus (HCV) Screening 1966 TdaP Immunization 1966 Hepatitis B Immunization (1 of 3 - 19+ 3-dose series) 1985 Pap Smear 1987 Cervical Cancer Screening (CCS) 1996 HPV/Cotest 1996 Cologuard 2016 Immunochemical Fecal Occult Blood 2016 Mammogram 2016 Zoster Immunization (1 of 2) 2016 Influenza Immunization (#1) 2024 07/18/2018 SARS-COV-2 Immunization ( season) 2024 08/22/2021, 12/17/2020, 11/19/2020 Colonoscopy 12/09/2030 12/09/2020, 11/28/2018 Colorectal Cancer Screening 12/09/2030 Respiratory Syncytial Virus (RSV) Immunization (Adult) (1 - 1-dose 75+ series) 2041 12/09/2020, 11/28/2018 Meningococcal Immunization (ACWY) Aged Out No longer eligible b ased on patient's age to complete this topic Pneumococcal Immunization Combined Aged Out No longer eligible b ased on patient's age to complete this topic Rotavirus Immunization Aged Out No lo nger eligible based on patient's age to complete this topic Procedures Procedure Name Priority Date/Time Associated Diagnosis Comments COLONOSCOPY Routine 12/09/2020 from Last 3 Months or Most Recently Relevant to Health Maintenance Results * COLONOSCOPY (12/09/2020) us Guru Winters DO PROCEDURE/MINOR SURGICAL ORDERA BLES Final Result from Last 3 Months or Most Recently Relevant to Health Maintenance Insurance MEDICAID [place] [facility] Care Teams Dial Screw Assembler Relationship Specialty Start Date End Date Barbra Goddard PA PCP - General Family Medicine 05/30/19
--- OUTSIDE RECORDS SUMMARY | 2024-10-04 02:52 | XMS_ITS | Encounter Summary ---
Author Organization [facility] Address [address] [place] [address] Phone Care Team Providers Care Rn Medication Name Role Phone Barbra Goddard Primary Care Provider [phone]- [phone] Encounter Details Date Type Department Care Team (Late st Contact Info) Description 09/04/2020 Telephone [facility] - Gastroenterology [facility] [address] [place] [address] Guru Winters, DO [address] [place] [address] Social History Tobacco Use Types Packs/Day Years Used Date Smoking Tobacco: Never Smokeless Tobacco: Never Comments Unknown Sex and Gender Information Value Date Recorded Sex Assigned at Not on file Legal Sex Female 1:48 PM CDT Gender Identity Not on file Sexual Orientation Not on file documented as of this encounter Miscellaneous Notes * Telephone Encounter - Mer Ribeiro - 09/04/2020 1:08 PM CST EGD Prep Instructions LE MECHANIC documented in this encounter Plan of Treatment Not on file documented as of this encounter Visit Diagnoses Not on filedocumented in this encounter Care Teams Rn Medication Relationship Specialty Start Date End Date Barbra Goddard PA PCP - General Family Medicine 05/30/19 documented as of this encounter
--- OUTSIDE RECORDS SUMMARY | 2024-10-04 02:52 | XMS_ITS | Encounter Summary ---
Author Organization [facility] Address [address] [facility] [place] [address] Phone Care Team Providers Care Iron Erector Name Role Phone Barbra Goddard Primary Care Provider [phone]- [phone] Encounter Details Date Type Department Care Team (Late st Contact Info) Description 11/04/2020 Telephone [facility] - Gastroenterology [facility] [address] [place] [address] Guru Winters, DO [address] [address] Social History Tobacco Use Types Packs/Day Years Used Date Smoking Tobacco: Never Smokeless Tobacco: Never Comments Unknown Sex and Gender Information Value Date Recorded Sex Assigned at Not on file Legal Sex Female 1:48 PM CDT Gender Identity Not on file Sexual Orientation Not on file documented as of this encounter Miscellaneous Notes * Telephone Encounter - Mer Ribeiro - 11/04/2020 2:14 PM CST Yazan GI Booking Form ING WHEEL OPERATOR HELPER documented in this encounter Plan of Treatment Not on file documented as of this encounter Visit Diagnoses Not on filedocumented in this encounter Care Teams Iron Erector Relationship Specialty Start Date End Date Barbra Goddard PA PCP - General Family Medicine 05/30/19 documented as of this encounter
--- OUTSIDE RECORDS SUMMARY | 2024-10-04 02:52 | XMS_ITS | Encounter Summary ---
Author Organization [facility] Address [address] [facility] [place] [address] Phone Care Team Providers Care Obstetrics Gynecology Physician Name Role Phone Barbra Godadrd Primary Care Provider [phone] Reason for Referral * Other (Routine) - Closed Specialty Diagnoses / Procedures Referred By Clemencia mendez Referred To Contact Gastroenterology Diagnoses Screening for colon cancer Procedures GASTRO PROCEDURE Colonoscopy @ [place] 12/09/2020 @ 11:30am with Guru Ritter DO Phone: tel: fax: Guru Winters DO Phone: tel: fax: Referral ID Status Reason Start Date Expiration Date Visits Re quested Visits Authorized [id number] Closed 10/22/2020 1 1 ODONTIC ASSISTANT Reason for Visit * Reason Onset Date Comments Results 10/16/2020 EGD at [place] Encounter Details Date Type Department Care Team (Late st Contact Info) Description 10/16/2020 Telephone [facility] - Gastroenterology [facility] [address] [place] [address] Guru Winters DO [address] [address] Results (EGD at [place]) Social History Tobacco Use Types Packs/Day Years Used Date Smoking Tobacco: Never Smokeless Tobacco: Never Comments Unknown Sex and Gender Information Value Date Recorded Sex Assigned at Not on file Legal Sex Female 1:48 PM CDT Gender Identity Not on file Sexual Orientation Not on file documented as of this encounter Miscellaneous Notes * Telephone Encounter - Mer Ribeiro - 11/04/2020 4:08 PM CST Patient is scheduled ODONTIC ASSISTANT * Telephone Encounter - Neela Hollins RN - 10/16/2020 1:13 PM CST Patient returned call. Patient notified of results and verbalizes understanding. Colonoscopy order pended to Dr. winters and message sent to Mer to schedule at [facility]. ODONTIC ASSISTANT * Telephone Encounter - Neela Hollins RN - 10/16/2020 8:44 AM CST Left message on machine. Recall placed ODONTIC ASSISTANT * Telephone Encounter - Neela Hollins RN - 10/16/2020 8:44 AM CST ----- Message from Guru Winters DO sent at 10/15/2020 2:54 PM ORTHODONTIC ASSISTANT ----- Shows intestinal metaplasia of the stomach. Recheck egd 1 year. This has to be monitored periodically. ODONTIC ASSISTANT documented in this encounter Plan of Treatment Scheduled Orders Name Type Priority Associated Diagnoses Orde r Schedule GASTRO PROCEDURE Procedures Routine Screening for colon cancer Expected: 10/22/2021 (Approximate), Expires: 10/22/2022 documented as of this encounter Visit Diagnoses Diagnosis Screening for colon cancer- Primary Special screening for malignant neoplasms, colon documented in this encounter Care Teams Obstetrics Gynecology Physician Relationship Specialty Start Date End Date Barbra Goddard PA PCP - General Family Medicine 05/30/19 documented as of this encounter
--- OUTSIDE RECORDS SUMMARY | 2024-10-04 02:52 | XMS_ITS | Encounter Summary ---
Author Organization [facility] Address [address] [place] [address] Care Team Providers Care Product Marketing Executive Name Role Phone Unavailable Primary Care Provider Unavailabl e Encounter Details Date Type Department Care Team (Latest Contact Info) Description 02/24/2017 Hospital Outpatient Visit Historic [facility] [address] [place] [id number] Swetha Ballesteros MD [address] [place] [address] Discharge Disposition: Home or Self Care Social History Tobacco Use Types Packs/Day Years Used Date Smoking Tobacco: Never Assessed Sex and Gender Information Value Date Recorded Sex Assigned at Not on file Gender Identity Not on file Sexual Orientation Not on file documented as of this encounter Plan of Treatment Not on file documented as of this encounter Procedures Procedure Name Priority Date/Time Associated Diagnosis Comments XR FOOT RIGHT 3VW OR MORE Routine 02/24/2017 10:49 AM CDT XR FOOT LEFT 3VW OR MORE Routine 02/24/2017 10:49 AM CDT XR HAND RIGHT 3VW OR MORE Routine 02/24/2017 10:49 AM CDT XR HAND LEFT 3VW OR MORE Routine 02/24/2017 10:49 AM CDT documented in this encounter Results * XR FOOT LEFT 3VW OR MORE [...] head. This report was electronically signed by LORETTA GARBER M.D. ??on 02/24/2017 2:27 PM . [...] Small heel spur is present. Procedure Note Loretta Garber MD - 01/14/2018 Examination: 1. Left [...] head. This report was electronically signed by LORETTA GARBER M.D. on02/24/2017 2:27 PM . Swetha Lesli [facility] * XR FOOT RIGHT 3VW OR MORE [...] head. This report was electronically signed by LORETTA GARBER M.D. ??on 02/24/2017 2:27 PM . [...] Small heel spur is present. Procedure Note Loretta Garber MD - 01/14/2018 Examination: 1. Left [...] head. This report was electronically signed by LORETTA GARBER M.D. on02/24/2017 2:27 PM . Swetha Lesli [facility] * XR HAND LEFT 3VW OR MORE (02/24/2017 10:49 AM CDT) Anatomical Region Laterality Modality Wrist / Hand Other Impressions 02/24/2017 2:27 PM CDT Impression: 1. Normal joint spaces of both feet. Small bilateral heel spurs. 2. Normal joint spaces of both hands. There is a small subchondral cyst or erosion within the left small finger metacarpal head. This report was electronically signed by LORETTA GARBER M.D. ??on 02/24/2017 2:27 PM . [...] Small heel spur is present. Procedure Note Loretta Garber MD - 01/14/2018 Examination: 1. Left [...] head. This report was electronically signed by LORETTA GARBER M.D. on02/24/2017 2:27 PM . Swetha Lesli [facility] * XR HAND RIGHT 3VW OR MORE (02/24/2017 10:49 AM CDT) Anatomical Region Laterality Modality Wrist / Hand Other Impressions 02/24/2017 2:27 PM CDT Impression: 1. Normal joint spaces of both feet. Small bilateral heel spurs. 2. Normal joint spaces of both hands. There is a small subchondral cyst or erosion within the left small finger metacarpal head. This report was electronically signed by LORETTA GARBER M.D. ??on 02/24/2017 2:27 PM . [...] Small heel spur is present. Procedure Note Loretta Garber MD - 01/14/2018 Examination: 1. Left [...] head. This report was electronically signed by LORETTA GARBER M.D. on02/24/2017 2:27 PM . Swetha Lesli [facility] documented in this encounter Visit Diagnoses Diagnosis Osteoarthritis Osteoarthrosis, unspecified whether generalized or localized, unspecified site Encounter for therapeutic drug level monitoring Encounter for therapeutic drug monitoring Other manager long term care (current) drug therapy documented in this encounter
--- OUTSIDE RECORDS SUMMARY | 2024-10-04 02:52 | XMS_ITS | Encounter Summary ---
Author Organization [facility] Address [address] [facility] [place] [address] Phone Care Team Providers Care Customer Marketing Assistant Name Role Phone Barbra Goddard Primary Care Provider [phone] Reason for Referral * Other (Routine) - Canceled Specialty Diagnoses / Procedures Referred By Clemencia mendez Referred To Contact Gastroenterology Diagnoses Gastritis with intestinal metaplasia of stomach Procedures GASTRO PROCEDURE Guru Winters DO Phone: tel: fax: [facility]ology [facility] [place] [address] Phone: tel: fax: Referral ID Status Reason Start Date Expiration Date V isits Requested Visits Authorized [id number] Canceled 12/26/2020 1 1 CLERK PASSENGER * Other (Routine) - Canceled Specialty Diagnoses / Procedures Referred By Clemencia mendez Referred To Contact Gastroenterology Diagnoses Screening for colon cancer Procedures GASTRO PROCEDURE Guru Winters DO Phone: tel: fax: Referral ID Status Reason Start Date Expiration Date V isits Requested Visits Authorized [id number] Canceled 12/26/2020 1 1 CLERK PASSENGER Reason for Visit * Reason Onset Date Comments Results 12/25/2020 Colonoscopy @ [facility] Encounter Details Date Type Department Care Team (Late st Contact Info) Description 12/25/2020 Telephone [facility] - Gastroenterology - [place] [address] [place] [address] Guru Winters, DO 3 [facility] [address] [place] [address] Results (Colonoscopy @ [place]) Social History Tobacco Use Types Packs/Day Years Used Date Smoking Tobacco: Never Smokeless Tobacco: Never Comments Unknown Sex and Gender Information Value Date Recorded Sex Assigned at Not on file Legal Sex Female 1:48 PM CDT Gender Identity Not on file Sexual Orientation Not on file documented as of this encounter Miscellaneous Notes * Telephone Encounter - Stephanie Solomon RN - 12/25/2020 2:36 PM CST Yazan Colonoscopy No cancer, fiber and probiotic, flagyl, recheck in 5yrs. Repeat EGD in 6 months for surveillance of intestinal metaplasia. Paperwork to go to [facility] 12/25/20 Patient verbalizes understanding; no further questions. Orders pended to Dr. Winters CLERK PASSENGER documented in this encounter Plan of Treatment Scheduled Orders Name Type Priority Associated Diagnoses Orde r Schedule GASTRO PROCEDURE Procedures Routine Screening for colon cancer Expected: 12/25/2025 (Approximate), Expires: 03/27/2026 GASTRO PROCEDURE Procedures Routine Gastritis with intestinal metaplasia of stomach Expected: 12/26/2021 (Approximate), Expires: 06/29/2022 documented as of this encounter Visit Diagnoses Diagnosis Gastritis with intestinal metaplasia of stomach- Primary Screening for colon cancer Special screening for malignant neoplasms, colon documented in this encounter Care Teams Customer Marketing Assistant Relationship Specialty Start Date End Date Barbra Goddard PA PCP - General Family Medicine 05/30/19 documented as of this encounter
--- OUTSIDE RECORDS SUMMARY | 2024-10-04 02:52 | XMS_ITS | Encounter Summary ---
Author Organization [facility] Address [address] [place] [address] Care Team Providers Care Devops Consultant Name Role Phone Unavailable Primary Care Provider Unavailabl e Encounter Details Date Type Department Care Team (Latest Contact Info) Description 02/24/2017 Hospital Outpatient Visit Historic [facility] [address] [place] [address] Swetha Ballesteros MD [address] [place] [address] Discharge Disposition: Home or Self Care Social [...]
--- OUTSIDE RECORDS SUMMARY | 2024-10-04 02:52 | XMS_ITS | Encounter Summary ---
Author Organization [facility] Address [address] [facility] [place] [address] Phone Care Team Providers Care Admitting Office Escort Name Role Phone Barbra Goddard Primary Care Provider [phone] Encounter Details Date Type Department Care Team (Late st Contact Info) Description 03/29/2020 Telephone [facility] - Gastroenterology [facility] [address] [place] [address] Guru Winters, DO [address] [address] Social History Tobacco Use Types Packs/Day Years Used Date Smoking Tobacco: Never Smokeless Tobacco: Never Comments Unknown Sex and Gender Information Value Date Recorded Sex Assigned at Not on file Legal Sex Female 1:48 PM CDT Gender Identity Not on file Sexual Orientation Not on file documented as of this encounter Miscellaneous Notes * Telephone Encounter - Mer Ribeiro - 03/29/2020 8:57 AM CDT Gregor Hand Booking form for EGD with Dr. Winters documented in this encounter Plan of Treatment Not on file documented as of this encounter Visit Diagnoses Not on filedocumented in this encounter Care Teams Admitting Office Escort Relationship Specialty Start Date End Date Barbra Goddard PA PCP - General Family Medicine 05/30/19 documented as of this encounter
--- OUTSIDE RECORDS SUMMARY | 2024-10-04 02:52 | XMS_ITS | Encounter Summary ---
Author Organization [facility] Address [address] [facility] [place] [address] Phone Care Team Providers Care Fisher Spear Name Role Phone Barbra Goddard Primary Care Provider [phone] Encounter Details Date Type Department Care Team (Late st Contact Info) Description 09/04/2020 Telephone [facility] - G[facility] [address] [place] [address] Guru Winters, DO [address] [address] [place] [address] Social History Tobacco Use Types Packs/Day Years Used Date Smoking Tobacco: Never Smokeless Tobacco: Never Comments Unknown Sex and Gender Information Value Date Recorded Sex Assigned at Not on file Legal Sex Female 1:48 PM CDT Gender Identity Not on file Sexual Orientation Not on file documented as of this encounter Miscellaneous Notes * Telephone Encounter - Mer Ribeiro - 09/04/2020 1:06 PM CST EGD Booking Form; [employer]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
--- OUTSIDE RECORDS SUMMARY | 2024-10-04 02:52 | XMS_ITS | Encounter Summary ---
Author Organization [facility] Address [address] [place] [address] Phone Care Team Providers Care Historic Sites Registrar Name Role Phone Barbra Goddard Primary Care Provider [phone] Encounter Details Date Type Department Care Team (Late st Contact Info) Description 03/29/2020 Telephone [facility] - G[facility] [address] [place] [address] Guru Winters, DO [address] [address] [place] [address] Social History Tobacco Use Types Packs/Day Years Used Date Smoking Tobacco: Never Smokeless Tobacco: Never Comments Unknown Sex and Gender Information Value Date Recorded Sex Assigned at Not on file Legal Sex Female 1:48 PM CDT Gender Identity Not on file Sexual Orientation Not on file documented as of this encounter Miscellaneous Notes * Telephone Encounter - Mer Ribeiro - 03/29/2020 8:49 AM CDT EGD Prep Instructions @ [place] 04/18/2020 documented in this encounter Plan of Treatment Not on file documented as of this encounter Visit Diagnoses Not on filedocumented in this encounter Care Teams Historic Sites Registrar Relationship Specialty Start Date End Date Barbra Goddard PA PCP - General Family Medicine 05/30/19 documented as of this encounter
--- OUTSIDE RECORDS SUMMARY | 2024-10-04 02:56 | XMS_ITS | Encounter Summary ---
Author Organization [facility] Address [address] [place] [address] Phone Care Team Providers Care Kindergarten Tutor Name Role Phone Luann Lawrence ANUP Unavailable [phone] Adarsh Tuttle MD Unavailable [phone] Sebastien Martinez DO Unavailable [phone] Guru Winters DO Unavailable [phone] Gato Abrams MD Unavailable [phone] Marina Rosales MD Unavailable [phone] Elizabeth Borrego Primary Care Provider [phone] Encounter Details Date Type Department Care Team (Latest Contact Info) Description 07/11/2024 9:30 AM CDT Procedure visit [facility] Orthopaedic Surgery [address] [place] [address] Daryn Calderon MD [address] [place] [address] Acute pain of right knee (Primary Dx); Synovial cyst of right popliteal space Social History Tobacco Use Types Packs/Day Years Used Date Smoking Tobacco: Former Cigarettes 1 2 1 997 - 1998 Smokeless Tobacco: Never Alcohol Use Standard Drinks/Week Comments Yes 2 (1 standard drink = 0.6 oz pur e alcohol) AUDIT-C Answer Date Recorded Q1: How often do you have a drink containing alc ohol? 2-4 times a month 11/29/2023 Q2: How many drinks containi ng alcohol do you have on a typical day when you are drinking? 3 or 4 11/29/2023 Q3: How often do you have si x or more drinks on one occasion? 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 A pre-scan of the Right knee was performed demonstrating a massive Duke's cyst in the popliteal fossa Timeout was performed to identify correct patient and side of procedure Verbal consent was obtained after discussion of the risks (including but not limited to increase pain, infection, bleeding, steroid related side effects such as headache, immunosuppresion from steroids, irritability from steroids) benefits, and alternatives. The skin was prepped and draped in the usual sterile fashion using chlorhexidine. Local anesthesia was achieved with 1% lidocaine. Needle of appropriate gauge and length for procedure (18G, 1.5 inch needle ) was directed towards the target Duke's cyst in a medial to lateral posterior approach. Aspiration: 106 cc of serous fluid was aspirated After the aspiration, the following solution was injected into the decompressed cyst: 1 mL triamcinolone (40mg/mL), 1 mL lidocaine 1% Needle was removed, skin cleansed, and bandage placed over injection site. No complications. Pt reported good symptomatic improvement during anesthetic phase. PLAN: Pt was counseled re: icing and activity modification. The above procedure was performed by Dr. aCmacho, resident, under my direct supervision and guidance.I was present throughout the entirety of the procedure. Daryn Calderon M.D. Editor [place] Division of Physical Medicine and Rehabilitation Department of Orthopaedic Surgery [facility] Daryn Calderon M.D. dictating using M Modal. Trade Facilitator variances may occur. ========= Large Joint Injection w/ Ultrasound Guidance: R knee Performed by: Daryn Calderon MD Authorized by: Daryn Calderon MD Large Joint Injection/Aspiration: Consent Given by: Patient Site marked: the procedure site was marked Timeout: prior to procedure the correct patient, procedure, and site was verified Verbal consent obtained: Yes Supporting Documentation: Indications: Pain Procedure Details: Location: Knee Site: R knee Prep: patient was prepped and draped in usual sterile fashion Needle Size: 18 G Approach: Medial Ultrasound guided: Yes Ultrasound guidance used for: Pre-procedure marking and real-time guidance Sterile ultrasond techniques: Sterile gel and sterile probe covers were used Medications: 4 mL lidocaine 10 mg/mL (1 %); 40 mg triamcinolone 40 mg/mL Patient tolerance: Patient tolerated the procedure well with no immediate complications documented in this encounter Plan of Treatment Not on file documented as of this encounter Procedures Procedure Name Priority Date/Time Associated Diagnosis Comments AL ARTHROCENTESIS ASPIR&/INJ MAJOR JT/BURSA W/US Routine 07/11/2024 9:30 AM CDT Synovial cyst of right popliteal space documented in this encounter Results * POCUS ASP/INJ MAJOR JOINT (07/11/2024 9:29 AM CDT) Narrative [facility] - 07/11/2024 9:29 AM CDT This procedure was performed and interpreted by the provider. Please refer to the provider's procedure/OR operative note for results. us Daryn Calderon MD POCUS ORDERABLES Final R esult [facility] documented in this encounter Visit Diagnoses Diagnosis Acute pain of right knee- Primary Synovial cyst of right popliteal space Acute pain of right knee documented in this encounter Administered Medications Inactive Administered Medications - up to 3 most recent administrations Medication Order MAR Action Action Date Dose Rate Site lidocaine (XYLOCAINE) 10 mg/mL (1 %) injection 4 mL 4 mL, One-Time Injection, Starting on Wed07/11/24 at 0930, For 1 dose, Indications: Administration of Local AnesthesiaIndications:Administr ation of Local Anesthesia Given 07/11/2024 9:30 AM CDT 4 mL Left Knee triamcinolone (KENALOG) 40 mg/mL injection 40 mg 40 mg, intra-articular, One-Time Injection, Starting on Wed07/11/24 at 0930, For 1 doseIndications:Synovial cyst of right popliteal space Given 07/11/2024 9:30 AM CDT 40 mg Left Knee documented in this encounter Care Teams Kindergarten Tutor Relationship Specialty Start Date End Date Elizabeth Borrego PA [address] [place] [address] PCP - General Internal Medicine 09/28/23 Luann Lawrence NP Nurse Practitioner Nurse Practitioner 01/06/19 Adarsh Tuttle MD [address] [place] [address] Consulting Physician Gastroenterology 02/22/19 Sebastien Martinez DO [address] [place] [address] Medical Oncologist/Iron Pellet Tester Hematology and Oncology 02/22/19 Guru Winters DO [address] [place] [address] Consulting Physician Gastroenterology 02/22/19 Gato Abrams MD [address] [place] [address] Surgeon Surgical Oncology 09/07/19 Marina Rosales MD [address] [place] [address] Consulting Physician General Surgery 03/24/21 documented as of this encounter
--- OUTSIDE RECORDS SUMMARY | 2024-10-04 02:56 | XMS_ITS | Encounter Summary ---
Author Organization [facility] Address [address] [place] [address] Care Team Providers Care Tobacco Scrap Sifter Name Role Phone Luann Lawrence NP Unavailable [phone] Adarsh Tuttle MD Unavailable Sebastien Martinez DO Unavailable [phone] Guru Winters DO Unavailable [phone] Gato Abrams MD Unavailable [phone] Marina Rosales MD Unavailable [phone] Elizabeth Borrego Primary Care Provider [phone] Reason for Visit * Auth/Cert (Routine) Specialty Diagnoses / Procedures Referred By Contac t Referred To Contact Diagnoses Malignant carcinoid tumor of the stomach (HCC) Malignant carcinoid tumor of the stomach (HCC) [C7A.092] Procedures EUS Referral ID Status Reason Start Date Expiration Date Visits Re quested Visits Authorized [id number] 1 1 Encounter Details Date Type Department Care Team (Late st Contact Info) Description 08/07/2024 10:11 AM CDT Anesthesia Event [facility] [address] [place] [address] Nino Granado MD [facility] [place] [address] Anesthesia Record Procedure Summary Procedure Name Responsible Anesthesiologist Anesthesia Start Time Anesthesia Stop Time ESOPHAGOGASTRODUODENOSCOPY ULTRASOUND EXAM LIMITED Nino Granado MD 08/07/24 1011 08/07/24 1038 Events Date Time Event Comment 08/07/2024 0929 1011 In Room 1011 An Start 1011 An Start Data 1016 Patient Positioned Laterally 1017 Bite Block Placed 1017 An Induction The patient was reevaluated immediately before moderate or deep sedation use and before anesthesia induction. 1018 Anesthesia Ready 1020 Proc Start 1029 Proc Fin 1034 an stop data 1034 Out of Room 1038 Handoff to RN I completed my handoff to the receiving nurse during which we: 1. Patient identified 2. Responsible provider identified 3. Pertinent medical history reviewed 4. Procedure type and surgical course discussed 5. Intraoperative anesthetic management and any significant issues discussed 6. Expectations and concerns for postop period discussed 7. Questions solicited from receiving nurse 8. Patient disposition at the time of handoff: PACU 1038 An Stop 1039 Release from care Meds Name Total lidocaine (cardiac) syringe 2 % 4 mL propofol 100 mg propofol 112.68 mg * Agents Name O2 * Blood No blood administrations on file. Lines, Drains, and Airways Type Details Placement Removal RETIRED Surgical Site Abdomen; 09/19/24 (Retired LDA, Removed/Completed by [employer] with LDA Utility); 1213 (Retired LDA, Removed/Completed by [employer] with LDA Utility) 05/13/20 1018 by 09/19/24 1213 by Discharge Provider, Automatic RETIRED Surgical Site 08/23/19; 1434; Abdomen; SURGICAL TROCAR ACCESS SITES X5; 09/19/24 (Retired LDA, Removed/Completed by [employer] with LDA Utility); 1213 (Retired LDA, Removed/Completed by [employer] with LDA Utility) 08/23/19 1434 by Christoph Parker RN 09/19/24 1213 by Discharge Provider, Automatic Peripheral IV Placement Date: 08/07/24; Placement Time: 09; Catheter Size: 20 G; Orientation: Anterior, Proximal, Right; Location: Forearm; Site Prep: Chlorhexidine; Technique: Anatomical landmarks; Insertion Attempts: 1; Patient Tolerance: Tolerated well; Removal Date: 08/07/24; Removal Time: 1132 08/07/24 0941 by Pita Russell RN 08/07/24 1132 by Sunshine Thompson RN documented in this encounter Social History Tobacco Use Types Packs/Day Years Used Date Smoking Tobacco: Former Cigarettes 1 2 1 997 - 1998 Smokeless Tobacco: Never Alcohol Use Standard Drinks/Week Comments Yes 2 (1 standard drink = 0.6 oz pur e alcohol) AUDIT-C Answer Date Recorded Q1: How often do you have a drink containing alc ohol? 2-4 times a month 08/07/2024 Q2: How many drinks containi ng alcohol do you have on a typical day when you are drinking? 3 or 4 08/07/2024 Q3: How often do you have si x or more drinks on one occasion? Less than monthly 08/07/2024 PHQ-2 Answer Date Recorded PHQ-2 Total Score 4 11/29/2023 Personal Safety Answer Date Recorded Have you ever been in or are you currently in a harmful physical or emotional relationship or is someone making you feel afraid or unsafe? 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 Not on file Not on file documented as of this encounter OR Notes * Anesthesia Postprocedure Evaluation - Carine Stevenson CRNA - 08/07/2024 10:38 AM CDT Patient: Fabiola Gibson Procedure Summary Date: 08/07/24 Room / Location: [place] [address] / [facility] Anesthesia Start: 1011 Anesthesia Stop: 1038 Procedure: ESOPHAGOGASTRODUODENOSCOPY ULTRASOUND EXAM LIMITED Diagnosis: Malignant carcinoid tumor of the stomach (HCC) (Malignant carcinoid tumor of the stomach (HCC) [C7A.092]) Providers: Adarsh Tuttle MD Responsible Provider: Nino Granado MD Anesthesia Type: general/TIVA ASA Status: 3 Anesthesia Type: general/TIVA Last vitals BP 126/72 Pulse 52 Temp 36.6 ??C (97.9 ??F) (Temporal) Resp 15 SpO2 100% Anesthesia Post Evaluation Patient location: GI recovery area. 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 * Anesthesia Preprocedure Evaluation - Nino Granado MD - 08/06/2024 9:57 PM CDT Images from the original note were not included. Anesthesia Evaluation Fabiola Gibson is a 59 y.o. female EUS Pre-Op Diagnosis Codes: * Malignant carcinoid tumor of the stomach (HCC) [C7A.092] HISTORY HPI Patient is here for an EUS and is NPO. Past Medical History Information obtained from: patient and chart. Cardiovascular + Hypertension + Other arrhythmia - LBBB. Comments: TTE March 2023: Normal left ventricular systolic function. No focal wall motion abnormalities. Normal left ventricular size. Mild concentric left ventricular hypertrophy. Impaired diastolic relaxation Grade I. Ejection fraction is visually estimated at 60 %. Ejection fraction is measured at 56 %. Global Longitudinal Strain is -17 %. GLS is borderline. There is mild enlargement of left atrium. Mild mitral valve regurgitation. Mild tricuspid regurgitation. Normal sinus rhythm. Respiratory wheezing negative + Sleep apnea (KATIA) (KATIA observed during TIVA.) Gastrointestinal + GERD Musculoskeletal/Pain + Osteoarthritis Endocrine / Other + Cancer history Cancer type: gastric cancer. + Rheumatological disease - rheumatoid arthritis. Functional Capacity Functional capacity: 4-6 METs Review of Systems Pertinent negatives: SOB and chest pain Patient Active Problem List Diagnosis Date Noted Seronegative rheumatoid arthritis (CMS/HCC) ([facility]) 04/07/2024 Cervical cancer screening 12/16/2023 Encounter for routine gynecological examination with Papanicolaou smear of cervix 12/16/2023 Snoring 05/18/2023 BMI 28.0-28.9,adult 10/29/2022 Swelling of joint, knee, right 03/12/2022 Synovial cyst of right popliteal space 03/12/2022 Effusion of right knee 03/12/2022 Mixed hyperlipidemia 09/23/2021 COVID-19 08/08/2020 Fever 08/07/2020 Submucosal lesion of stomach 04/24/2020 Annual physical exam 03/31/2020 Chronic fatigue 03/31/2020 Breast cancer screening by mammogram 03/31/2020 Gastroesophageal reflux disease without esophagitis 03/31/2020 Erosive osteoarthritis 03/31/2020 Moderate episode of recurrent major depressive disorder (HCC) 03/31/2020 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 03/08/2020 HTN (hypertension), benign 02/13/2020 LBBB (left bundle branch block) 02/13/2020 Palpitations 02/13/2020 Premature atrial contractions 02/13/2020 Iron deficiency anemia due to chronic blood loss 09/19/2019 Gastric carcinoma (HCC) 06/27/2019 Pernicious anemia 06/21/2019 Carcinoid tumor of stomach 06/08/2019 Malignant carcinoid tumor of stomach (HCC) 01/10/2019 Past Medical History: Diagnosis Date Anemia Autoimmune disease (CMS/HCC) (HCC) Cancer (CMS/HCC) (HCC) carcinode tumors Carcinoid tumor of stomach Colon polyp Depression Heart murmur Hyperlipidemia Hypertension Left bundle branch block Rheumatoid arthritis (HCC) Urinary tract infection years ago Past Surgical History: Procedure Laterality Date ABDOMINAL SURGERY 08-23-2019 SECTION 1989,1991 twice COLONOSCOPY 11/2018 ENDOMETRIAL ABLATION 09/2005 ESOPHAGOGASTRODUODENOSCOPY 2019 x4 GASTRECTOMY 08/23/2019 partial HERNIA REPAIR STOMACH SURGERY TUBAL LIGATION 02/2005 UPPER GASTROINTESTINAL ENDOSCOPY OB History No obstetric history on file. No Known Allergies Taking? Last Dose Start Date End Date Provider cholecalciferol (VITAMIN D-3) 1,000 unit capsule -- -- -- ProviderPedro MD hydroxychloroquine (PLAQUENIL) 200 mg tablet -- 04/21/24 10/18/24 Salome Quiñonez MD Take 1 tablet (200 mg total) by mouth every other day Take 400mg (2 tablets) on even days and 200mg(1 tablet) on odd days pravastatin (PRAVACHOL) 40 mg tablet -- 03/10/24 -- Lani Coats NP Take 1 tablet (40 mg total) by mouth daily Notes: Requesting 1 year supply sertraline (ZOLOFT) 50 mg tablet -- 06/06/24 -- Pedro Garcia MD valsartan-hydroCHLOROthiazide (DIOVAN-HCT) 80-12.5 mg per tablet -- 05/29/24 08/27/24 Lani Coats NP TAKE 1 TABLET BY MOUTH DAILY Notes: Please send a replace/new response with 90-Day Supply if appropriate to maximize member benefit. Requesting 1 year supply. Vyvanse 20 mg capsule -- 12/08/23 -- Provider, MD Pedro No current facility-administered medications for this encounter. Current Outpatient Medications: cholecalciferol (VITAMIN D-3) 1,000 unit capsule hydroxychloroquine (PLAQUENIL) 200 mg tablet pravastatin (PRAVACHOL) 40 mg tablet sertraline (ZOLOFT) 50 mg tablet valsartan-hydroCHLOROthiazide (DIOVAN-HCT) 80-12.5 mg per tablet Vyvanse 20 mg capsule Social History Tobacco Use Smoking Status Former Current packs/day: 0.00 Average packs/day: 1 pack/day for 2.0 years (2.0 ttl pk-yrs) Types: Cigarettes Start date: 1996 Quit date: 1998 Years since quittin.8 Smokeless Tobacco Never Alcohol Use: Alcohol Misuse (11/29/2023) AUDIT-C Frequency of Alcohol Consumption: 2-4 times a month Average Number of Drinks: 3 or 4 Frequency of Binge Drinking: Less than monthly Substance and Sexual Activity Drug Use Not on file Family History Problem Relation Age of Onset Dementia Mother Coronary artery disease Mother s/p CABG Emphysema Father Heart failure Father Other (Congestive Heart Failure) Father No Known Problems Sister Heart attack Brother Ovarian cancer Mother's Sister Colon cancer Mother's Brother Cancer Maternal Grandmother Anesthesia problems Neg Hx There were no vitals filed for this visit. PT: No results found for requested labs within last 30 days. INR: No results found for requested labs within last 30 days. APTT: No results found for requested labs within last 30 days. Hgb A1C: No results found for requested labs within last 30 days. CBC RBC: No results found for requested labs within last 30 days. RDW: No results found for requested labs within last 30 days. MCHC: No results found for requested labs within last 30 days. MCH: No results found for requested labs within last 30 days. MCV: No results found for requested labs within last 30 days. Hct: No results found for requested labs within last 30 days. Hgb: No results found for requested labs within last 30 days. WBC: No results found for requested labs within last 30 days. MPV: No results found for requested labs within last 30 days. Platelets: No results found for requested labs within last 30 days. RDW CV: No results found for requested labs within last 30 days. RDW Sd: No results found for requested labs within last 30 days. BMP Glucose: No results found for requested labs within last 30 days. Calcium: No results found for requested labs within last 30 days. Sodium: No results found for requested labs within last 30 days. Potassium: No results found for requested labs within last 30 days. CO2: No results found for requested labs within last 30 days. Chloride: No results found for requested labs within last 30 days. BUN: No results found for requested labs within last 30 days. Creatinine: No results found for requested labs within last 30 days. DOS Physical Exam Medical history, medications, and allergies reviewed. Attestation: This PAT evaluation 08/07/2024. Airway Exam: Mallampati: II Cervical ROM: FROM TM distance: >4 Cardiovascular Exam: Rate: regular Rhythm: regular Pulmonary Exam: LCTA, bilat Wheezing negative Dental Exam: Otherwise appears intact Anesthesia Plan ASA 3 My patient is approved for the Anesthesia Controlled Medication protocol when under care of a UNDERGROUND ELECTRICIAN Planned anesthesia: General/TIVA Team communication plan: mask Induction: Induction: intravenous. Postoperative Plan: No plan for postoperative opioid use. No postoperative mechanical ventilation intended. Patient's planned disposition post procedure is Outpatient. Informed Consent: Discussed plan with UNDERGROUND ELECTRICIAN. Anesthesia plan and risks discussed with patient. Plan and Consent Comments: Backup plan is a general anesthetic with or without an endotracheal tube or LMA as required Consent and Attending signature: I and/or my designee have discussed the anesthesia plan, benefits, possible alternatives, parental presence at time of induction (if indicated), and clinically relevant risks that may include dental injury, unintentional awareness, and/or other complications. The patient and/or parent/legal guardian understand, and agree to proceed. All questions answered. documented in this encounter Plan of Treatment Not on file documented as of this encounter Visit Diagnoses Not on filedocumented in this encounter Administered Medications Inactive Administered Medications - up to 3 most recent administrations Medication Order MAR Action Action Date Dose Rate Site lidocaine (cardiac) (XYLOCAINE) preservative free injection intravenous, As needed, Starting on Wed08/07/24 at 1017, Anesthesia Intra-op, Indications: Ventricular ArrhythmiasIndications:Ventricular Arrhythmias Given 08/07/2024 10:17 AM CDT 4 mL propofoL (DIPRIVAN) 10 mg/mL IV intravenous, As needed, Starting on Wed08/07/24 at 1017, Anesthesia Intra-op Given 08/07/2024 10:20 AM CDT 20 mg Given 08/07/2024 10:17 AM CDT 80 mg propofoL (DIPRIVAN) 10 mg/mL IV intravenous, Continuous PRN, Starting on Wed08/07/24 at 1018, Anesthesia Intra-op New Bag 08/07/2024 10:18 AM CDT 200 mcg/kg/min 75.12 mL/hr documented in this encounter Care Teams Tobacco Scrap Sifter Relationship Specialty Start Date End Date Elizabeth Borrego PA [address] [place], [place] [id number] PCP - General Internal Medicine 09/28/23 Luann Lawrence, ANUP Nurse Practitioner Nurse Practitioner 01/06/19 Adarsh Tuttle MD [address] [place] [address] Consulting Physician Gastroenterology 02/22/19 Sebastien Martinez DO [facility] [address] Medical Oncologist/Surgical Resident Hematology and Oncology 02/22/19 Guru Winters DO [facility] [address] Consulting Physician Gastroenterology 02/22/19 Gato Abrams MD [address] [place] [address] Surgeon Surgical Oncology 09/07/19 Marina Rosales MD [address] [place] [address] Consulting Physician General Surgery 03/24/21 documented as of this encounter
--- OUTSIDE RECORDS SUMMARY | 2024-10-04 02:56 | XMS_ITS | Encounter Summary ---
Author Organization [facility] Address [address] [place] [address] Care Team Providers Care Personal Banking Officer Name Role Phone Luann Lawrence NP Unavailable [phone] Adarsh Tuttle MD Unavailable [phone] Sebastien Martinez DO Unavailable [phone] Guru Winters DO Unavailable [phone] Gato Abrams MD Unavailable [phone] Marina Rosales MD Unavailable [phone] Elizabeth Borrego Primary Care Provider [phone] Encounter Details Date Type Department Care Team (Late st Contact Info) Description 04/21/2024 9:15 AM CDT Lab [facility] Outpatient Lab at [address] [address] Malignant carcinoid tumor of stomach (HCC) (Primary Dx) Social History Tobacco Use Types Packs/Day Years [...] making you feel afraid or unsafe? 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 Not on file Not on file documented as of this encounter Plan of Treatment Not on file documented as of this encounter Visit Diagnoses Diagnosis Malignant carcinoid tumor of stomach (HCC)- Primary Malignant carcinoid tumor of the stomach documented in this encounter Care Teams Personal Banking Officer Relationship Specialty Start Date End Date Elizabeth Borrego PA [address] [facility] [address] [place], [place] [id number] PCP - General Internal Medicine 09/28/23 Luann Lawrence NP Nurse Practitioner Nurse Practitioner 01/06/19 Adarsh Tuttle MD [address] [facility] [address] [place] [address] Consulting Physician Gastroenterology 02/22/19 Sebastien Martinez DO [address] [place] [address] Medical Oncologist/Linux Engineer Hematology and Oncology 02/22/19 Guru Winters DO [address] [place] [address] Consulting Physician Gastroenterology 02/22/19 [place] [address] [place] [id number] Surgeon Surgical Oncology 09/07/19 Marina Rosales MD [address] [place], [place] [address] Consulting Physician General Surgery 03/24/21 documented as of this encounter
--- OUTSIDE RECORDS SUMMARY | 2024-10-04 02:56 | XMS_ITS | Encounter Summary ---
Author Organization [facility] Address [address] [place] [address] Phone Care Team Providers Care Planning Specialist Name Role Phone Luann Lawrence ANUP Unavailable [phone] Adarsh Tuttle MD Unavailable [phone] Sebastien Martinez DO Unavailable [phone] Guru Winters DO Unavailable [phone] Gato Abrams MD Unavailable [phone] Marina Rosales MD Unavailable [phone] Elizabeth Borrego Primary Care Provider [phone] Reason for Visit * Reason Comments Pain * Injectables (Routine) - Closed Specialty Diagnoses / Procedures Referred By Contjimmy t Referred To Contact Diagnoses Synovial cyst of right popliteal space Procedures Large Joint Injection w/ Ultrasound Guidance Daryn Calderon MD [address] [place] [address] Phone: tel: fax: [facility] (All Locations) Referral ID Status Reason Start Date Expiration Date Visits Re quested Visits Authorized [id number] Closed 06/06/2024 07/06/2025 1 1 Encounter Details Date Type Department Care Team (Latest Contact Info) Description 06/14/2024 8:00 AM CDT Procedure visit [facility] Orthopaedic Surgery [address] 1[address] [place] [address] Daryn Calderon MD 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 All nerves were imaged in both short and long axis orientation. All images are archived on the US machine and uploaded to the medical record. Patient position and scanning considerations: Patient was placed in sidelying position. Dynamic evaluation was conducted to assess for structural integrity. Structures of interest were assessed in both the long and short axis. Ultrasound Findings: Patient has a known history of right Duke's cyst. Ultrasound demonstrated layering of fluid between the superficial/fascial layer of the gastrocnemius and the subcutaneous layer, consistent with Duke's cyst rupture. This is also supported by lack of consistent fluid collection within the Duke's cyst with redundancy of the Duke's cyst sow, at some areas in opposition, again consistent with rupture. There was no internal or peripheral vascular flow of any of the cystic areas. The popliteal vasculature as well as the tibial and common fibular nerve were visualized. Impression: 1. There is sonographic evidence of right Duke's cyst rupture. We discussed this in detail with the patient. I advise use of a knee sleeve as well as activity modification. She will monitor her symptoms over the next few weeks and then keep us updated. We statedthat should her Duke's cyst reaccumulate, we could consider aspiration in the future. Daryn Calderon M.D. [employer] Division of Physical Medicine and Rehabilitation Department of Orthopaedic Surgery [facility] documented in this encounter Plan of Treatment Not on file documented as of this encounter Procedures Procedure Name Priority Date/Time Associated Diagnosis Comments ID ARTHROCENTESIS ASPIR&/INJ MAJOR JT/BURSA W/US Routine 07/11/2024 9:30 AM CDT Synovial cyst of right popliteal space documented in this encounter Results * ID ARTHROCENTESIS ASPIR&/INJ MAJOR JT/BURSA W/US (07/11/2024 9:30 AM CDT) Narrative Daryn Calderon MD - 07/11/2024 9:30 AM CDT Daryn Calderon MD ? 07/20/2024 ??2:59 PM Large Joint Injection w/ Ultrasound Guidance: R knee Performed by: Daryn Calderon MD Authorized by: Daryn Calderon MD ?? Large Joint Injection/Aspiration: ??Consent Given by: ??Patient ??Site marked: the procedure site was marked ?Timeout: prior to procedure the correct patient, procedure, and site was verified ?Verbal consent obtained: Yes ?? Supporting Documentation: ??Indications: ??Pain Procedure Details: ??Location: ??Knee ??Site: ??R knee ??Prep: patient was prepped and draped in usual sterile fashion ?Needle Size: ??18 G ??Approach: ??Medial ??Ultrasound guided: Yes ?Ultrasound guidance used for: ??Pre-procedure marking and real-time guidance ??Sterile ultrasond techniques: Sterile gel and sterile probe covers were used ?Medications: ??4 mL lidocaine 10 mg/mL (1 %); 40 mg triamcinolone 40 mg/mL ??Patient tolerance: ??Patient tolerated the procedure well with no immediate complications us Daryn Calderon MD IN CLINIC/BEDSIDE ORDERA BLES Edited Result - Final * POCUS ASP/INJ MAJOR JOINT (06/14/2024 8:11 AM CDT) Narrative [facility] - 06/14/2024 8:11 AM CDT This procedure was performed and interpreted by the provider. Please refer to the provider's procedure/OR operative note for results. us Daryn Calderon MD POCUS ORDERABLES Final R esult [facility] documented in this encounter Visit Diagnoses Diagnosis Synovial cyst of right popliteal space Synovial cyst of right popliteal space documented in this encounter Historical Medications * This list may reflect changes made after this encounter. sertraline (ZOLOFT) 50 mg tablet Take 1 tablet (50 mg total) by mouth daily 06/06/2024 added in this encounter Care Teams Planning Specialist Relationship Specialty Start Date End Date Elizabeth Borrego PA [address] [place] [address] PCP - General Internal Medicine 09/28/23 Luann Lawrence NP Nurse Practitioner Nurse Practitioner 01/06/19 Adarsh Tuttle MD [address] [place] [address] Consulting Physician Gastroenterology 02/22/19 Sebastien Martinez DO [address] [place] [address] 057429 Medical Oncologist/Power Technician Hematology and Oncology 02/22/19 Guru Winters DO [address] [place] [address] [id number] Consulting Physician Gastroenterology 02/22/19 Gato Abrams MD [address] [place] [address] [id number] Surgeon Surgical Oncology 09/07/19 Marina Rosales MD [address] [place] [address] [id number] Consulting Physician General Surgery 03/24/21 documented as of this encounter
--- OUTSIDE RECORDS SUMMARY | 2024-10-04 02:56 | XMS_ITS | Encounter Summary ---
Author Organization [facility] Address [address] [place] [address] Phone Care Team Providers Care Senior C Developer Name Role Phone Luann Lawrence ANUP Unavailable [phone] Adarsh Tuttle MD Unavailable [phone] Sebastien Martinez DO Unavailable [phone] Guru Winters DO Unavailable [phone] Gato Abrams MD Unavailable [phone] Marina Rosales MD Unavailable [phone] Elizabeth Borrego Primary Care Provider [phone] Reason for Referral * Injectables (Routine) - Closed Specialty Diagnoses / Procedures Referred By Contac t Referred To Contact Diagnoses Synovial cyst of right popliteal space Procedures Large Joint Injection w/ Ultrasound Guidance Daryn Calderon MD [address] [place] [address] Phone: tel: fax: [facility] (All Locations) Referral ID Status Reason Start Date Expiration Date Visits Re quested Visits Authorized [id number] Closed 06/06/2024 07/06/2025 1 1 Encounter Details Date Type Department Care Team (Late st Contact Info) Description 06/06/2024 Orders Only [facility] Orthopaedic Surgery [address] [facility] 1[address] [place] [address] Shivamhema LilaDEEPA Synovial cyst of right popliteal space (Primary Dx) Social History Tobacco Use Types Packs/Day Years Used Date Smoking Tobacco: Former Cigarettes 1 2 1 - 1998 Smokeless Tobacco: Never Alcohol Use [...] on file 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 Gender Identity Female 06/07/2020 8:39 AM CDT Sexual Orientation Not on file 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 Not on file Not on file documented as of this encounter Plan of Treatment Not on file documented as of this encounter Results * HI ARTHROCENTESIS ASPIR&/INJ MAJOR JT/BURSA W/US (07/11/2024 9:30 [...] CLINIC/BEDSIDE ORDERA BLES Edited Result - Final documented in this encounter Visit Diagnoses Diagnosis Synovial cyst of right popliteal space- Primary Synovial cyst of right popliteal space documented in this encounter Care Teams Senior C Developer Relationship Specialty Start Date End Date Elizabeth Borrego PA [address] [place] [address] PCP - General Internal Medicine 09/28/23 Luann Lawrence, ANUP Nurse Practitioner Nurse Practitioner 01/06/19 Adarsh Tuttle MD [address] [place] [address] Consulting Physician Gastroenterology 02/22/19 Sebastien Martinez DO [address] [address] Medical Oncologist/Technology Applications Teacher Hematology and Oncology 02/22/19 Guru Winters DO [address] [address] Consulting Physician Gastroenterology 02/22/19 Gato Abrams MD [address] [address] Surgeon Surgical Oncology 09/07/19 Marina Rosales MD [address] [address] Consulting Physician General Surgery 03/24/21 documented as of this encounter
--- OUTSIDE RECORDS SUMMARY | 2024-10-04 02:56 | XMS_ITS | Encounter Summary ---
Author Organization [facility] Address [address] [place] [address] Care Team Providers Care Boom Truck Driver Name Role Phone Luann Lawrence NP Unavailable [phone] Adarsh Tuttle MD Unavailable [phone] Sebastien Martinez DO Unavailable [phone] Guru Winters DO Unavailable Gato Abrams MD Unavailable [phone] Mraina Rosales MD Unavailable [phone] Elizabeth Borrego Primary Care Provider [phone] Encounter Details Date Type Department Care Team (Late st Contact Info) Description 08/18/2024 Orders Only [facility] Family Medicine [address] [facility] [address] [place] [address] Provider, MD Pedro [address] [place] [address] Social History Tobacco Use Types Packs/Day Years Used Date Smoking Tobacco: Former Cigarettes 1 2 7 - 1998 Smokeless Tobacco: Never Alcohol [...] on file 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 Gender Identity Female 06/07/2020 8:39 AM CDT Sexual Orientation Not on file 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 Not on file Not on file documented as of this encounter Plan of Treatment Not on file documented as of this encounter Procedures Procedure Name Priority Date/Time Associated Diagnosis Comments MAMMOGRAPHY Routine 08/18/2024 1:49 PM CDT documented in this encounter Results * MAMMOGRAPHY (08/18/2024 1:49 PM CDT) Mammography Normal us Historical Provider HEALTH MAINTENANCE Edited Result - Final documented in this encounter Visit Diagnoses Not on filedocumented in this encounter Care Teams Boom Truck Driver Relationship Specialty Start Date End Date Elizabeth Borrego PA [address] [place] [address] PCP - General Internal Medicine 09/28/23 Luann Lawrence NP Nurse Practitioner Nurse Practitioner 01/06/19 Adarsh Tuttle MD [address] [facility] [address] [place] [address] Consulting Physician Gastroenterology 02/22/19 Sebastien Martinez DO [address] [facility] [address] [place] [address] Medical Oncologist/Branch Specialist Hematology and Oncology 02/22/19 Guru Winters DO [address] [place] [address] Consulting Physician Gastroenterology 02/22/19 Gato Abrams MD [address] [place] [address] [id number] Surgeon Surgical Oncology 09/07/19 Marina Rosales MD [address] [place] [address] Consulting Physician General Surgery 03/24/21 documented as of this encounter
--- OUTSIDE RECORDS SUMMARY | 2024-10-04 02:56 | XMS_ITS | Encounter Summary ---
Author Organization [facility] Healthcare Address [address] [place] [address] Care Team Providers Care Research Hydraulic Engineer Name Role Phone Luann Lawrence NP Unavailable Adarsh Tuttle MD Unavailable [phone] Sebastien Martinez DO Unavailable [phone] Guru Winters DO Unavailable [phone] Gato Abrams MD Unavailable Marina Rosales MD Unavailable [phone] Elizabeth Borrego Primary Care Provider [phone] Encounter Details Date Type Department Care Team (Latest Contact Info) Description 04/21/2024 9:17 AM CDT - 04/21/2024 11:59 PM CDT Hospital Encounter [address] [address] Malignant carcinoid tumor of stomach (HCC); Pernicious anemia Discharge Disposition: Discharge to home or self care Social History Tobacco Use Types Packs/Day Years [...] on file 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 Gender Identity Female 06/07/2020 8:39 AM CDT Sexual Orientation Not on file 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 Not on file Not on file documented as of this encounter Medications at Time of Discharge cholecalciferol (VITAMIN D-3) 1,000 unit capsuleIndicatio ns:Vitamin D Deficiency Take 2 capsules (2,000 Units total) by mouth stack supervisor before breakfast pravastatin (PRAVACHOL) 40 mg tabletIndication s:Dyslipidemia Take 1 tablet (40 mg total) by mouth daily 90 tablet 3 03/10/2024 Vyvanse 20 mg capsule 12/08/2023 hydroxychloroqui ne (PLAQUENIL) 200 mg tabletIndication s:Rheumatoid Arthritis Take 1 tablet (200 mg total) by mouth every other day Take 400mg (2 tablets) on even days and 200mg (1 tablet) on odd days 45 tablet 1 04/21/2024 4 valsartan-hydroC HLOROthiazide (DIOVAN-HCT) 80-12.5 mg per tabletIndication s:hypertension Take 1 tablet by mouth daily 90 tablet 03/10/2024 4 documented as of this encounter Discharge Disposition Disposition Code Departure Means Destination Discharge to home or self care documented in this encounter Plan of Treatment Not on file documented as of this encounter Procedures Procedure Name Priority Date/Time Associated Diagnosis Comments DIFFERENTIAL AUTO Routine 04/21/2024 9:1 7 AM CDT Malignant carcinoid tumor of stomach (HCC) Pernicious anemia CHROMOGRANIN A Routine 04/21/2024 9:17 AM CDT Malignant carcinoid tumor of stomach (HCC) CBC WITH AUTO DIFFERENTIAL Routine 04/21/2024 9:17 AM CDT Malignant carcinoid tumor of stomach (HCC) Pernicious anemia GASTRIN Routine 04/21/2024 9:17 AM CDT Malignant carcinoid tumor of stomach (HCC) VITAMIN B12 Routine 04/21/2024 9:17 AM CDT Pernicious anemia documented in this encounter Results * Differential, auto (04/21/2024 9:17 AM CDT) Neutrophil abs 2.4 1.5 - 6.5 K/cumm Imm gran abs 0.0 0.0 - 0.1 K/cumm [facility] Lymphocyte abs 1.2 0.8 - 3.3 K/cumm [facility] Monocyte abs 0.3 0.2 - 0.8 K/cumm [facility] Eosinophil abs 0.2 0.0 - 0.5 K/cumm [facility] Basophil abs 0.1 0.0 - 0.1 K/cumm [facility] Neutrophil pct 58.4 % [facility] Comment: Interpretive Data Percent cell count reference ranges are not reported, since discordance with absolute values may lead to misinterpretation of CBC data. Current Interpretive Data was last revised on 2018. Imm gran pct 0.2 % [facility] Comment: Interpretive Data Percent cell count reference ranges are not reported, since discordance with absolute values may lead to misinterpretation of CBC data. Current Interpretive Data was last revised on 2018. Lymphocyte pct 30.0 % [facility] Comment: Interpretive Data Percent cell count reference ranges are not reported, since discordance with absolute values may lead to misinterpretation of CBC data. Current Interpretive Data was last revised on 2018. Monocyte pct 6.1 % [facility] Comment: Interpretive Data Percent cell count reference ranges are not reported, since discordance with absolute values may lead to misinterpretation of CBC data. Current Interpretive Data was last revised on 2018. Eosinophil pct 4.1 % [facility] Comment: Interpretive Data Percent cell count reference ranges are not reported, since discordance with absolute values may lead to misinterpretation of CBC data. Current Interpretive Data was last revised on 2018. Basophil pct 1.2 % [facility] Comment: Interpretive Data Percent cell count reference ranges are not reported, since discordance with absolute values may lead to misinterpretation of CBC data. Current Interpretive Data was last revised on 2018. Blood 04/21/2024 9:17 AM CDT 04/21/2024 2:53 PM CDT Sebastien Martinez DO LAB BLOOD ORDERABLES Final R esult [facility] [address] Department [place] [address] * Chromogranin A (04/21/2024 9:17 AM CDT) Chromogranin A 33 <93 ng/mL [facility] Comment: ADDITIONAL INFORMATION The testing method is a homogeneous time-resolved immunofluorescent assay manufactured by [employer] and performed on the 2CRisk Kryptor Compact Plus. ? Values obtained with different assay methods or kits may be different and cannot be used interchangeably. ? Test results cannot be interpreted as absolute evidence for the presence or absence of malignant disease. In some immunoassays, the presence of unusually high concentrations of analyte may result in a high-dose hook effect. This may result in a lower or even normal measured analyte concentration. If the reported result is inconsistent with the clinical presentation, the laboratory should be alerted for troubleshooting. For diagnostic purposes, these immunoassay results should always be assessed in conjunction with the patients medical history, clinical examination and other findings. Test Performed by: [address] [address] Outsole Compressor: Sloan Santana Ph.D.; CLIA# [id number] Blood 04/21/2024 9:17 AM CDT 04/21/2024 2:53 PM CDT Sebastien OliverosGregor Michelle DO LAB BLOOD ORDERABLES Final R esult Performing Organization Address City/[facility] Co de Phone Number [facility] [address] [place] [address] [facility] * Gastrin (04/21/2024 9:17 AM CDT) Gastrin <10 pg/mL [facility] Comment: REFERENCE VALUE <100 Reference ranges valid for >= 8 hour fast. Test Performed by: [place] [address] Outsole Compressor: Sloan Santana Ph.D.; CLIA# [id number] Blood 04/21/2024 9:17 AM CDT 04/21/2024 2:53 PM CDT Sebastien OliverosGregor Michelle DO LAB BLOOD ORDERABLES Final R esult Performing Organization Address [facility] Co de Phone Number MAYITAVO [facility] [address] [place] [address] [facility] * Vitamin B12 (04/21/2024 9:17 AM CDT) Vitamin B12 589 230 - 1,250 pg/mL Blood 04/21/2024 9:17 AM CDT 04/21/2024 2:53 PM CDT Sebastien OliverosGregor Michelle DO LAB BLOOD ORDERABLES Final R esult Performing Organization Address City/[facility] Co de Phone Number [facility] [address] [facility] [employer] [place], [place] [id number] * (ABNORMAL) CBC with auto differential (04/21/2024 9:17 AM CDT) WBC 4.1 3.8 - 9.9 K/cumm Hgb 11.6(L) 11.9 - 15.5 g/dL [facility] Hct 35.4(L) 35.6 - 45.5 % [facility] Plt 267 150 - 400 K/cumm [facility] MPV 9.9 9.1 - 12.3 fL [facility] RBC 3.99 3.90 - 5.20 M/cumm [facility] MCV 88.7 81.3 - 96.4 fL [facility] MCH 29.1 27.1 - 33.3 pg [facility] MCHC 32.8 32.3 - 35.7 g/dL [facility] RDW CV 12.0 11.1 - 14.9 % [facility] RDW SD 38.7 35.7 - 48.1 fL [facility] NRBC abs 0.00 0.00 - 0.01 K/cumm [facility] Blood 04/21/2024 9:17 AM CDT 04/21/2024 2:53 PM CDT Sebastien Martinez DO LAB BLOOD ORDERABLES Final R esult [facility] [address] Department [place] [address] documented in this encounter Visit Diagnoses Diagnosis Malignant carcinoid tumor of stomach (HCC) Malignant carcinoid tumor of the stomach Pernicious anemia documented in this encounter Care Teams Research Hydraulic Engineer Relationship Specialty Start Date End Date Elizabeth Borrego PA [address] [place] [address] PCP - General Internal Medicine 09/28/23 Luann Lawrence NP Nurse Practitioner Nurse Practitioner 01/06/19 Adarsh Tuttle MD [address] [place] [address] Consulting Physician Gastroenterology 02/22/19 Sebastien Martinez DO [address] [place] [address] Medical Oncologist/Director Of In Service Education Hematology and Oncology 02/22/19 Guru Winters DO [address] [place] [address] Consulting Physician Gastroenterology 02/22/19 Gato Abrams MD [address] [place] [address] Surgeon Surgical Oncology 09/07/19 Marina Rosales MD [address] [place] [address] Consulting Physician General Surgery 03/24/21 documented as of this encounter
--- OUTSIDE RECORDS SUMMARY | 2024-10-04 02:56 | XMS_ITS | Encounter Summary ---
Author Organization [facility] Healthcare Address [address] [place] [address] Care Team Providers Care Customer Success Intern Name Role Phone Luann Lawrence NP Unavailable [phone] Adarsh Tuttle MD Unavailable [phone] Sebastien Martinez DO Unavailable [phone] Guru Winters DO Unavailable [phone] Gato Abrams MD Unavailable [phone] Marina Rosales MD Unavailable [phone] Elizabeth Borrego Primary Care Provider [phone] Encounter Details Date Type Department Care Team (Late st Contact Info) Description 08/28/2024 Telephone [facility] Cardiology [address] [address] Lani Coats NP [address] [facility] [address] [facility] [address] [place] [address] Social History Tobacco Use Types Packs/Day Years [...] on file 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:22 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 Per AD's las OV note he recommended a FLP in 3-4 months but was never done. Orders sent. PRESS TENDER documented in this encounter Plan of Treatment Scheduled Orders Name Type Priority Associated Diagnoses Orde r Schedule Lipid panel Lab Routine Mixed hyperlipidemia Expected: 08/31/2024, Expires: 08/28/2025 documented as of this encounter Visit Diagnoses Diagnosis Mixed hyperlipidemia- Primary documented in this encounter Care Teams Customer Success Intern Relationship Specialty Start Date End Date Elizabeth Borrego PA [address] [place] [address] PCP - General Internal Medicine 09/28/23 Luann Lawrence NP Nurse Practitioner Nurse Practitioner 01/06/19 Adarsh Tuttle MD [address] [place] [address] Consulting Physician Gastroenterology 02/22/19 Sebastien Martinez DO [facility] [address] Medical Oncologist/Franchise Specialist Hematology and Oncology 02/22/19 Guru Winters DO [address] [place] [address] Consulting Physician Gastroenterology 02/22/19 Gato Abrams MD [address] [place] [address] Surgeon Surgical Oncology 09/07/19 Marina Rosales MD [address] [place] [address] Consulting Physician General Surgery 03/24/21 documented as of this encounter
--- OUTSIDE RECORDS SUMMARY | 2024-10-04 02:56 | XMS_ITS | Encounter Summary ---
Author Organization [facility] Healthcare Address [address] [place] [address] Care Team Providers Care Mail Rider Name Role Phone Luann Lawrence NP Unavailable Adarsh Tuttle MD Unavailable [phone] Sebastien Martinez DO Unavailable Guru Winters DO Unavailable [phone] Gato Abrams MD Unavailable Marina Rosales MD Unavailable [phone] Elizabeth Borrego Primary Care Provider [phone] Reason for Visit * Auth/Cert (Routine) Specialty Diagnoses / Procedures Referred By Contac t Referred To Contact Diagnoses Malignant carcinoid tumor of the stomach (HCC) Malignant carcinoid tumor of the stomach (HCC) [C7A.092] Procedures EUS Referral ID Status Reason Start Date Expiration Date Visits Re quested Visits Authorized [id number] 1 1 Encounter Details Date Type Department Care Team (Latest Contact Info) Description 08/07/2024 8:37 AM CDT - 08/07/2024 11:55 AM CDT Hospital Encounter [facility] [address] [place] [address] Adarsh Tuttle MD [address] [place] [address] Malignant carcinoid tumor of the stomach (HCC) Discharge Disposition: Discharge to home or self care Social History Tobacco Use Types Packs/Day Years Used Date Smoking Tobacco: Former Cigarettes 1 2 - 1998 Smokeless Tobacco: Never Alcohol Use [...] on file 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 Gender Identity Female 06/07/2020 8:39 AM CDT Sexual Orientation Not on file 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 Not on file Not on file documented as of this encounter Last Filed Vital Signs Vital Sign Reading Time Taken Comments Blood Pressure 112/69 08/07/2024 10:55 AM CDT Pulse 47 08/07/2024 10:55 AM CDT Temperature 36.6 ??C (97.9 ??F) 08/07/2024 9:33 AM CD T Respiratory Rate 15 08/07/2024 10:55 AM CDT Oxygen Saturation 97% 08/07/2024 10:55 AM CDT Inhaled Oxygen Concentration - - Weight 62.6 kg (138 lb) 08/07/2024 9:33 AM CDT Height 162.6 cm (5' 4 ) 08/07/2024 9:33 AM CDT Body Mass Index 23.69 08/07/2024 9:33 AM CDT documented in this encounter Medications at Time of Discharge cholecalciferol (VITAMIN D-3) 1,000 unit capsuleIndicatio ns:Vitamin D Deficiency Take 2 capsules (2,000 Units total) by mouth nutrition director before breakfast pravastatin (PRAVACHOL) 40 mg tabletIndication s:Dyslipidemia Take 1 tablet (40 mg total) by mouth daily 90 tablet 3 03/10/2024 sertraline (ZOLOFT) 50 mg tablet Take 1 tablet (50 mg total) by mouth daily 06/06/2024 Vyvanse 20 mg capsule 12/08/2023 hydroxychloroqui ne (PLAQUENIL) 200 mg tabletIndication s:Rheumatoid Arthritis Take 1 tablet (200 mg total) by mouth every other day Take 400mg (2 tablets) on even days and 200mg (1 tablet) on odd days 45 tablet 1 04/21/2024 4 valsartan-hydroC HLOROthiazide (DIOVAN-HCT) 80-12.5 mg per tabletIndication s:hypertension TAKE 1 TABLET BY MOUTH DAILY 90 tablet 05/29/2024 4 documented as of this encounter Discharge Disposition Disposition Code Departure Means Destination Comment s Discharge to home or self care documented in this encounter H&P Notes * Adarsh Tuttle MD - 08/07/2024 10:06 AM CDT ENDOSCOPY PRE-PROCEDURE MEDICAL HISTORY & PHYSICAL Fabiola Gibson 59 y.o. female BP 126/72 Pulse 52 Temp 36.6 ??C (97.9 ??F) (Temporal) Resp 15 Ht 162.6 cm (5' 4 ) Wt 62.6 kg (138 lb) SpO2 100% BMI 23.69 kg/m?? History: Past Medical History: Diagnosis Date Anemia Autoimmune disease (CMS/HCC) (HCC) Cancer (CMS/HCC) (HCC) carcinode tumors Carcinoid tumor of stomach Colon polyp Depression Heart murmur Hyperlipidemia Hypertension Left bundle branch block Rheumatoid arthritis (HCC) Urinary tract infection years ago No Known Allergies Medications Prior to Admission Medication Sig Dispense Refill Last Dose cholecalciferol (VITAMIN D-3) 1,000 unit capsule Take 2 capsules (2,000 Units total) by mouth earlymorning before breakfast 08/06/2024 hydroxychloroquine (PLAQUENIL) 200 mg tablet Take 1 tablet (200 mg total) by mouth every other day Take 400mg (2 tablets) on even days and 200mg (1 tablet) on odd days 45 tablet 1 08/06/2024 pravastatin (PRAVACHOL) 40 mg tablet Take 1 tablet (40 mg total) by mouth daily 90 tablet 3 08/06/2024 sertraline (ZOLOFT) 50 mg tablet Take 1 tablet (50 mg total) by mouth daily 08/06/2024 valsartan-hydroCHLOROthiazide (DIOVAN-HCT) 80-12.5 mg per tablet TAKE 1 TABLET BY MOUTH DAILY 90 tablet 0 08/06/2024 Vyvanse 20 mg capsule Past Week Current Facility-Administered Medications Medication Dose Route Frequency Provider Last Rate Last Admin Lactated Ringer's (LR) infusion 30 mL/hr intravenous Continuous Adarsh Tuttle MD sodium chloride 0.9% flush 0.5-20 mL 0.5-20 mL intra-catheter Q8H JESSICA Adarsh Tuttle MD sodium chloride 0.9% flush 0.5-20 mL 0.5-20 mL intra-catheter PRN Adarsh Tuttle MD sodium chloride 0.9% infusion 30 mL/hr intravenous Continuous Adarsh Tuttle MD Physicial Exam: Physical exam is normal ASA Evaluation and Anesthesia Plan: ASA 3 - Patient with moderate systemic disease with functional limitations Indication(s) for Procedure: gastric and panc NET surveillance Procedure Planned: EUS Adarsh Tuttle MD documented in this encounter Procedure Notes * Adarsh Tuttle MD - 08/07/2024 10:07 AM CDTAssociated Order(s): UPPER EUS ENDOSCOPY LAB Patient Name: Fabiola Gibson Procedure Date: 08/07/2024 10:07 AM Admit Type: Outpatient Room: [facility] Date of : 1965 Instrument Name: [id number] Gender: Female Note Status: Finalized Procedure: Upper EUS Indications: 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 Referring MD: Elizabeth Borrego PA-C Complications: No immediate complications. Estimated blood loss: Minimal. Estimated Blood Loss: Estimated blood loss was minimal. Procedure: The risks, benefits and alternatives were discussed and informed consent was obtained.The Endosonoscope was introduced through the mouth, and advanced to the jejunum The [id number] was introduced through the mouth, and advanced to the jejunum The upper EUS was accomplished without difficulty. The patient tolerated the procedure well. Findings: ENDOSCOPIC FINDING: : The examined esophagus was normal. Diffuse atrophic mucosa was found in the gastric body. Evidence of a patent Billroth II gastrojejunostomy was found. The gastrojejunal anastomosis was characterized by healthy appearing mucosa. This was traversed. ENDOSONOGRAPHIC FINDING: : The region of the celiac plexus and celiac ganglia was visualized and showed no sign of significant endosonographic abnormality. The vascular anatomy of the region was normal. There was no sign of significant endosonographic abnormality in the left lobe of the liver. No focal pathology was identified. Endosonographic images of the stomach were unremarkable. No pathologic lymphadenopathy and no masses were identified. A nodule was identified in the pancreatic head and genu of the pancreas. The mass was hypoechoic. The mass measured 7.3 mm by 6.5 mm in maximal cross-sectional diameter. The endosonographic borders were well-defined. An intact interface was seen between the mass and the adjacent structures suggesting a lack of invasion. The pancreatic duct had a dilated endosonographic appearance in the main pancreatic duct. The pancreatic duct measured up to 3 mm in diameter. Impression: - Gastric mucosal atrophy. - Patent Billroth II gastrojejunostomy was found, characterized by healthy appearing mucosa. - Endosonographic images of the stomach were unremarkable. There was no evidence of recurrent NET. - A well defined nodule was identified in the pancreatic head and genu of the pancreas. Tissue has not been obtained. However, the endosonographic appearance is of a neuroendocrine tumor. This was staged T1 N0 Mx by endosonographic criteria. It remains stable in size. - No specimens collected. Recommendation: - Repeat the upper endoscopic ultrasound in 1.5 years for surveillance. - The findings and recommendations were discussed with the patient and their family. Attending Participation: I personally performed the entire procedure. Electronically signed by Adarsh Tuttle MD Adarsh Tuttle M.D. 08/07/2024 10:47:30 AM This document was signed electronically. Number of Addenda: 0 Note Initiated On: 08/07/2024 10:07 AM Scope In: Scope Out: documented in this encounter Plan of Treatment Pending Results Name Type Priority Associated Diagnoses Date/Time ESOPHAGOGASTRODUODENOSCOPY ENDOSCOPIC ULTRASOUND Endo Imaging Procedure IP Routine Malignant carcinoid tumor of the stomach (HCC) 08/07/2024 10:34 AM CDT documented as of this encounter Procedures Procedure Name Priority Date/Time Associated Diagnosis Comments US ENDOSCOPIC IP Routine 08/07/2024 10:34 AM CDT Malignant carcinoid tumor of the stomach (HCC) ESOPHAGOGASTRODUODENOSCOPY ULTRASOUND EXAM LIMITED 08/07/2024 10:11 AM CDT Malignant carcinoid tumor of the stomach (HCC) UPPER EUS 08/07/2024 10:07 AM CDT documented in this encounter Results * Upper EUS (08/07/2024 10:07 AM CDT) Anatomical Region Laterality Modality Other Narrative Procedure Note Adarsh Tuttle MD - 08/07/2024 10:07 AM CDT ENDOSCOPY LAB Patient Name: Fabiola Gibson Procedure Date: 08/07/2024 10:07AM Admit Type: Outpatient Room: [facility] Date of : 1965 Instrument Name: [id number] Gender: Female Note Status: Finalized Procedure: Upper EUS Indications: 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 Referring MD: Elizabeth Borrego PA-C Complications: No immediate complications. Estimated blood loss: Minimal. Estimated Blood Loss: Estimated blood loss was minimal. Procedure: The risks, benefits and alternatives were discussed and informed consent was obtained.The Endosonoscope was introduced through the mouth, and advanced tothe jejunum The [id number] was introduced through the mouth, and advanced to the jejunum The upper EUSwas accomplished without difficulty. The patienttolerated the procedure well. Findings: ENDOSCOPIC FINDING: : The examined esophagus was normal. Diffuse atrophic mucosa was found in the gastric body. Evidence of a patent Billroth II gastrojejunostomy was found. The gastrojejunal anastomosis was characterized by healthy appearingmucosa. This was traversed. ENDOSONOGRAPHIC FINDING: : The region of the celiac plexus and celiac ganglia was visualized and showed no sign of significant endosonographic abnormality. Thevascular anatomy of the region was normal. There was no sign of significant endosonographic abnormality in theleft lobe of the liver. No focal pathology was identified. Endosonographic images of the stomach were unremarkable. Nopathologic lymphadenopathy and no masses were identified. A nodule was identified in the pancreatic head and genu of thepancreas. The mass was hypoechoic. The mass measured 7.3 mm by 6.5 mm inmaximal cross-sectional diameter. The endosonographic borders werewell-defined. An intact interface was seen between the mass and the adjacent structures suggesting a lack of invasion. The pancreatic duct had a dilated endosonographic appearance in themain pancreatic duct. The pancreatic duct measured up to 3 mm indiameter. Impression: - Gastric mucosal atrophy. - Patent Billroth II gastrojejunostomy was found, characterized by healthy appearing mucosa. - Endosonographic images of the stomach were unremarkable. There was no evidence of recurrentNET. - A well defined nodule was identified in the pancreatic head and genu of the pancreas. Tissuehas not been obtained. However, the endosonographic appearance is of a neuroendocrine tumor. This was staged T1 N0 Mx by endosonographic criteria. It remains stable in size. - No specimens collected. Recommendation: - Repeat the upper endoscopic ultrasound in 1.5years for surveillance. - The findings and recommendations were discussedwith the patient and their family. Attending Participation: I personally performed the entire procedure. Electronically signed by Adarsh Tuttle MD Adarsh Tuttle M.D. 08/07/2024 10:47:30 AM This document was signed electronically. Number of Addenda: 0 Note Initiated On: 08/07/2024 10:07 AM Scope In: Scope Out: us Adarsh Tuttle MD ENDOSCOPY PROCEDURES Final Re sult documented in this encounter Visit Diagnoses Diagnosis Malignant carcinoid tumor of the stomach (HCC) Malignant carcinoid tumor of the stomach documented in this encounter Administered Medications Inactive Administered Medications - up to 3 most recent administrations Medication Order MAR Action Action Date Dose Rate Site Lactated Ringer's (LR) infusion 30 mL/hr, intravenous, Continuous, Starting on Wed08/07/24 at 1000, Pre-Procedure (GI) sodium chloride 0.9% flush 0.5-20 mL 0.5-20 mL, intra-catheter, Every 8 hours scheduled, First dose on Wed08/07/24 at 1400, Pre-Procedure (GI), Flush volume based on line type and size. sodium chloride 0.9% flush 0.5-20 mL 0.5-20 mL, intra-catheter, As needed, line care, Starting on Wed08/07/24 at 0927, Pre-Procedure (GI), Flush volume based on line type and size. Flush before and after each use. sodium chloride 0.9% infusion 30 mL/hr, intravenous, Continuous, Starting on Wed08/07/24 at 1000, Pre-Procedure (GI), If chronic renal disease or requested by anesthesia documented in this encounter Active and Recently Administered Medications Times are shown in CDT. Scheduled Medication Order 08/05/2024 08/06/2024 08/07/2024 sodium chloride 0.9% flush 0.5-20 mL 0.5-20 mL, intra-catheter, Every 8 hours scheduled, First dose on Wed08/07/24 at 1400, Pre-Procedure (GI), Flush volume based on line type and size. Continuous Medication Order 08/05/2024 08/06/2024 08/07/2024 Lactated Ringer's (LR) infusion 30 mL/hr, intravenous, Continuous, Starting on Wed08/07/24 at 1000, Pre-Procedure (GI) 1000 (Due) sodium chloride 0.9% infusion 30 mL/hr, intravenous, Continuous, Starting on Wed08/07/24 at 1000, Pre-Procedure (GI), If chronic renal disease or requested by anesthesia 1000 (Due) PRN Medication Order 08/05/2024 08/06/2024 08/07/2024 sodium chloride 0.9% flush 0.5-20 mL 0.5-20 mL, intra-catheter, As needed, line care, Starting on 08/07/24 at 0927, Pre-Procedure (GI), Flush volume based on line type and size. Flush before and after each use. documented in this encounter Orders Medications Ordered That Anthony ht Not Have Been Administered Count Last Ordered Date First Ordered Date Lactated Ringer's (LR) infusion 1 sodium chloride 0.9% flush 0.5-20 mL 2 07/19 sodium chloride 0.9% infusion 1 08/07/2024 Discharge Count Last Ordered Date First Orde red Date DISCHARGE PATIENT 1 08/07/2024 documented in this encounter Care Teams Mail Rider Relationship Specialty Start Date End Date Elizabeth Borrego PA [address] [place], [place] [phone] PCP - General Internal Medicine 09/28/23 Luann Lawrence, ANUP Nurse Practitioner Nurse Practitioner 01/06/19 Adarsh Tuttle MD [address] [place] [address] Consulting Physician Gastroenterology 02/22/19 Sebastien Martinez DO [address] [place] [address] [id number] Medical Oncologist/Airline Pilot Hematology and Oncology 02/22/19 Guru Winters DO [address] [place] [address] [phone] Consulting Physician Gastroenterology 02/22/19 Gato Abrams MD [address] [place] [address] [phone] Surgeon Surgical Oncology 09/07/19 Marina Rosales MD [address] [place] [address] Consulting Physician General Surgery 03/24/21 documented as of this encounter
--- OUTSIDE RECORDS SUMMARY | 2024-10-04 02:56 | XMS_ITS | Encounter Summary ---
Author Organization [facility] Address [address] [place] [address] Phone Care Team Providers Care Die Cleaner Name Role Phone Luann Lawrence ANUP Unavailable [phone] Adarsh Tuttle MD Unavailable [phone] Sebastien Martinez DO Unavailable [phone] Guru Winters DO Unavailable [phone] Gato Abrams MD Unavailable [phone] Marina Rosales MD Unavailable [phone] Elizabeth Borrego Primary Care Provider [phone] Encounter Details Date Type Department Care Team (Late st Contact Info) Description 04/19/2024 Orders Only [facility] Oncology [address] [facility] [address] [place] [address] Sebastien Martinez DO [address] [facility] [address] [place] [phone] Malignant carcinoid tumor of stomach (HCC) (Primary Dx); Pernicious anemia Social History Tobacco Use Types Packs/Day Years [...] on file 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 Gender Identity Female 06/07/2020 8:39 AM CDT Sexual Orientation Not on file 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 Not on file Not on file documented as of this encounter Miscellaneous Notes * Addendum Note - Bob Arias CLT - 04/19/2024 4:07 PM CDTAddended by: BOB ARIAS on: 04/21/2024 09:17 AM Modules accepted: Orders documented in this encounter Plan of Treatment Not on file documented as of this encounter Results * (ABNORMAL) CBC with auto differential (04/21/2024 9:17 AM CDT) WBC 4.1 3.8 - 9.9 K/cumm Hgb 11.6(L) 11.9 - 15.5 g/dL [facility] Hct 35.4(L) 35.6 - 45.5 % [facility] Plt 267 150 - 400 K/cumm [facility] MPV 9.9 9.1 - 12.3 fL [facility] RBC 3.99 3.90 - 5.20 M/cumm [facility] MCV 88.7 81.3 - 96.4 fL [facility] MCH 29.1 27.1 - 33.3 pg [facility] MCHC 32.8 32.3 - 35.7 g/dL [facility] RDW CV 12.0 11.1 - 14.9 % [facility] RDW SD 38.7 35.7 - 48.1 fL [facility] NRBC abs 0.00 0.00 - 0.01 K/cumm [facility] Blood 04/21/2024 9:17 AM CDT 04/21/2024 2:53 PM CDT Sebastien Martinez LAB BLOOD ORDERABLES Final R esult Performing Organization Address [facility] de Phone Number ANDREA LANGLEY [address] [address] [facility] [place] [address] * Vitamin B12 (04/21/2024 9:17 AM CDT) Vitamin B12 589 230 - 1,250 pg/mL Blood 04/21/2024 9:17 AM CDT 04/21/2024 2:53 PM CDT Sebastien Martinez LAB BLOOD ORDERABLES Final R esult Performing Organization Address [facility] de Phone Number [facility] [address] [place] [address] * Gastrin (04/21/2024 9:17 AM CDT) Gastrin <10 pg/mL [facility] Comment: REFERENCE VALUE <100 Reference ranges valid for >= 8 hour fast. Test Performed by: [facility] [place] [address] Project Specialist: Sloan Santana Ph.D.; CLIA# [id number] Blood 04/21/2024 9:17 AM CDT 04/21/2024 2:53 PM CDT Sebastien Martinez LAB BLOOD ORDERABLES Final R esult Performing Organization Address [facility]/[place] [address] [address] [place] [address] [facility] * Chromogranin A (04/21/2024 9:17 AM CDT) Chromogranin A 33 <93 ng/mL [facility] Comment: ADDITIONAL INFORMATION The testing method is a homogeneous time-resolved immunofluorescent assay manufactured by [employer] and performed on the Toopheror Compact Plus. ? Values obtained with different [...] examination and other findings. Test Performed by: [place] [address] Project Specialist: Sloan Santana Ph.D.; CLIA# [id number] Blood 04/21/2024 9:17 AM CDT 04/21/2024 2:53 PM CDT Sebastien Martinez DO LAB BLOOD ORDERABLES Final R esult Performing Organization Address [facility] [place] [address] [address] [place] [address] [facility] documented in this encounter Visit Diagnoses Diagnosis Malignant carcinoid tumor of stomach (HCC)- Primary Malignant carcinoid tumor of the stomach Pernicious anemia documented in this encounter Orders Appointment Requests Count Last Ordered Date Fi rst Ordered Date ONCBCN CLINIC APPOINTMENT REQUEST 1 024 documented in this encounter Care Teams Die Cleaner Relationship Specialty Start Date End Date Elizabeth Borrego PA [address] [place] [address] PCP - General Internal Medicine 09/28/23 Luann Lawrence, ANUP Nurse Practitioner Nurse Practitioner 01/06/19 Adarsh Tuttle MD [address] [place] [address] Consulting Physician Gastroenterology 02/22/19 Sebastien Martinez DO [address] [place] [address] Medical Oncologist/Biofuels Plant Construction Worker Hematology and Oncology 02/22/19 Guru Winters DO [address] [place] [address] [phone] Consulting Physician Gastroenterology 02/22/19 Gato Abrams MD [address] [place] [address] [phone] Surgeon Surgical Oncology 09/07/19 Marina Rosales MD [address] [place] [address] [phone] Consulting Physician General Surgery 03/24/21 documented as of this encounter
--- OUTSIDE RECORDS SUMMARY | 2024-10-04 02:56 | XMS_ITS | Encounter Summary ---
Author Organization [facility] Address [address] [place] [address] Phone Care Team Providers Care Truck Driver Heavy Name Role Phone Luann Lawrence ANUP Unavailable [phone] Adarsh Tuttle MD Unavailable [phone] Sebastien Martinez DO Unavailable Guru Winters DO Unavailable [phone] Gato Abrams MD Unavailable [phone] Marina Rosales MD Unavailable [phone] Elizabeth Borrego Primary Care Provider [phone] Encounter Details Date Type Department Care Team (Latest Contact Info) Description 06/14/2024 8:15 AM CDT Ancillary Procedure [facility] Orthopaedic Surgery [address] [facility] 1[address] [place] [address] Synovial cyst of right popliteal space Social [...] on file 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 Gender Identity Female 06/07/2020 8:39 AM CDT Sexual Orientation Not on file 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 Please refer to the provider's procedure/OR operative note for results. us Daryn Calderon MD POCUS ORDERABLES Final R esult [facility] documented in this encounter Visit Diagnoses Diagnosis Synovial cyst of right popliteal space documented in this encounter Care Teams Truck Driver Heavy Relationship Specialty Start Date End Date Elizabeth Borrego PA [address] [place] [address] PCP - General Internal Medicine 09/28/23 Luann Lawrence NP Nurse Practitioner Nurse Practitioner 01/06/19 Adarsh Tuttle MD [address] [facility] [address] [place] [address] Consulting Physician Gastroenterology 02/22/19 Sebastien Martinez DO [address] [place] [address] Medical Oncologist/Lamp Tester And Inspector Hematology and Oncology 02/22/19 Guru Winters DO [address] [place] [address] Consulting Physician Gastroenterology 02/22/19 Gato Abrams MD [address] [place] [address] [phone] Surgeon Surgical Oncology 09/07/19 Marina Rosales MD [address] [place] [address] [phone] Consulting Physician General Surgery 03/24/21 documented as of this encounter
--- OUTSIDE RECORDS SUMMARY | 2024-10-04 02:56 | XMS_ITS | Encounter Summary ---
Author Organization [facility] Address [address] [place] [address] Care Team Providers Care Senior Research Fellow Name Role Phone Luann Lawrence NP Unavailable Adarsh Tuttle MD Unavailable [phone] Sebastien Martinez DO Unavailable [phone] Guru Winters DO Unavailable [phone] Gato Abrams MD Unavailable Marina Rosales MD Unavailable [phone] Elizabeth Borrego Primary Care Provider [phone] Reason for Visit * Auth/Cert (Routine) Specialty Diagnoses / Procedures Referred By Contac t Referred To Contact Diagnoses Malignant carcinoid tumor of the stomach (HCC) Malignant carcinoid tumor of the stomach (HCC) [C7A.092] Procedures EUS Referral ID Status Reason Start Date Expiration Date Visits Re quested Visits Authorized [id number] 1 1 Encounter Details Date Type Department Care Team (Latest Contact Info) Description 08/07/2024 10:00 AM CDT - 08/07/2024 10:30 AM CDT Surgery [facility] [address] [place] [id number] Adarsh Tuttle MD [address] [place] [address] ESOPHAGOGASTRODUODENOSCOPY ULTRASOUND EXAM LIMITED Surgery Details Date/Time Status Location OR Service Patient Class Case Class Case Type Trauma Case? 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 Gender Identity Female 06/07/2020 8:39 AM CDT Sexual Orientation Not on file 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 file Not on file documented as of this encounter Last Filed Vital Signs Vital Sign Reading Time Taken Comments Blood Pressure 126/72 08/07/2024 9:33 AM CDT Pulse 52 08/07/2024 9:33 AM CDT Temperature 36.6 ??C (97.9 ??F) 08/07/2024 9:33 AM CD T Respiratory Rate 15 08/07/2024 9:33 AM CDT Oxygen Saturation 100% 08/07/2024 9:33 AM CDT Inhaled Oxygen Concentration - - Weight 62.6 kg (138 lb) 08/07/2024 9:33 AM CDT Height 162.6 cm (5' 4 ) 08/07/2024 9:33 AM CDT Body Mass Index 23.69 08/07/2024 9:33 AM CDT documented in this encounter Medications at Time of Discharge cholecalciferol (VITAMIN D-3) 1,000 unit capsuleIndicatio ns:Vitamin D Deficiency Take 2 capsules (2,000 Units total) by mouth assembler unit before breakfast pravastatin (PRAVACHOL) 40 mg tabletIndication [...] 08/07/2024 10:07 AM Admit Type: Outpatient Room: [facility] Date of : 1965 Instrument Name: [id number] Gender: Female Note Status: Finalized Procedure: Upper [...] mouth, and advanced to the jejunum The [id number] was introduced through the mouth, and advanced [...] Date: 08/07/2024 10:07AM Admit Type: Outpatient Room: [facility] Date of : 1965 Instrument Name: [id number] Gender: Female Note Status: Finalized Procedure: Upper [...] the mouth, and advanced tothe jejunum The [id number] was introduced through the mouth, and advanced [...] 08/07/2024 10:07 AM Scope In: Scope Out: Adarsh Tuttle MD ENDOSCOPY PROCEDURES Final Re sult documented in this encounter Visit Diagnoses Diagnosis Malignant carcinoid tumor of the stomach (HCC) Malignant carcinoid tumor of the stomach Malignant carcinoid tumor of the stomach (HCC) [...] 08/07/2024 documented in this encounter Care Teams Senior Research Fellow Relationship Specialty Start Date End Date Elizabeth Borrego PA [address] [facility] [address] [place] [address] PCP - General Internal Medicine 09/28/23 Luann Lawrence NP Nurse Practitioner Nurse Practitioner 01/06/19 Adarsh Tuttle MD [address] [facility] [address] [place] [address] Consulting Physician Gastroenterology 02/22/19 Sebastien Martinez DO [address] [facility] [address] [place] [address] Medical Oncologist/Surveyor Mine Hematology and Oncology 02/22/19 Guru Winters DO [address] [place] [address] Consulting Physician Gastroenterology 02/22/19 Gato Abrams MD [address] [place] [address] 355119 Surgeon Surgical Oncology 09/07/19 Marina Rosales MD [address] [place] [address] Consulting Physician General Surgery 03/24/21 documented as of this encounter
--- OUTSIDE RECORDS SUMMARY | 2024-10-04 02:56 | XMS_ITS | Encounter Summary ---
Author Organization [facility] Address [address] [place] [address] Phone Care Team Providers Care Packer Insulation Name Role Phone Luann Lawrence ANUP Unavailable [phone] Adarsh Tuttle MD Unavailable [phone] Sebastien Martinez DO Unavailable [phone] Guru Winters DO Unavailable [phone] Gato Abrams MD Unavailable [phone] Marina Rosales MD Unavailable [phone] Elizabeth Borrego Primary Care Provider [phone] Encounter Details Date Type Department Care Team (Late st Contact Info) Description 04/19/[address] 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 She wrote the information down, I told her it would be in her My Chart as well. documented in this encounter Plan of Treatment Not on file documented as of this encounter Visit Diagnoses Not on filedocumented in this encounter Care Teams Packer Insulation Relationship Specialty Start Date End Date Elizabeth Borrego PA [address] [facility] [address] [place] [address] PCP - General Internal Medicine 09/28/23 Luann Lawrence NP Nurse Practitioner Nurse Practitioner 01/06/19 Adarsh Tuttle MD [address] [facility] [address] [place] [address] Consulting Physician Gastroenterology 02/22/19 Sebastien Martinez DO [address] [place] [address] [address] [place] [address] Medical Oncologist/Senior Web Developer Hematology and Oncology 02/22/19 Guru Winters DO [address] [place] [address] Consulting Physician Gastroenterology 02/22/19 Gato Abrams MD [address] [place] [id number] Surgeon Surgical Oncology 09/07/19 Marina Rosales MD [address] [place] [address] Consulting Physician General Surgery 03/24/21 documented as of this encounter
--- OUTSIDE RECORDS SUMMARY | 2024-10-04 02:56 | XMS_ITS | Encounter Summary ---
Author Organization [facility] Address [address] [place] [address] Phone Care Team Providers Care Skatesman Name Role Phone Luann Lawrence ANUP Unavailable [phone] Adarsh Tuttle MD Unavailable [phone] Sebastien Martinez DO Unavailable [phone] Guru Winters DO Unavailable Gato Abrams MD Unavailable [phone] Marina Rosales MD Unavailable [phone] Elizabeth Borrego Primary Care Provider [phone] Reason for Visit * Reason Onset Date Comments GI Preprocedure 07/18/2024 Encounter Details Date Type Department Care Team (Late st Contact Info) Description 07/18/2024 Telephone [facility] Gastroenterology [facility] Medical Office Building [address], [address] [place] [address] Breanne Torres LPN GI Preprocedure Social History Tobacco Use Types Packs/Day Years [...] on file 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 Flores, referral completed. Patient is scheduled with another GI provider for an EUS. * Telephone Encounter - Breanne Torres LPN - 07/18/2024 11:56 AM CDT LMOVM for patient to c/b and discuss scheduling * Telephone Encounter - Breanne Torres LPN - 07/18/2024 11:55 AM CDT ----- Message ----- From: Cordelia Flores MD Sent: 04/03/2024 4:27 PM CDT To: Carina Nolasco Subject: RE: Gibson 1. Office visit versus direct procedure (specify procedure) EGD with any IE, any facility 2. Urgency/timeframe to schedule April 2024 3. Dx gastric carcinoid 4. Records needed? No Hx gastric carcinoids s/p B2, needs annual mucosal evaluation; stable 7mm PNET getting surveillance by CT. ----- Message ----- From: Carina Nolasco Sent: 04/03/2024 3:06 PM CDT To: Cordelia Flores MD Subject: FW: Arthur Please advise on schedulin. Office visit versus direct procedure (specify procedure) 2. Urgency/timeframe to schedule 3. Dx 4. Records needed? ----- Message ----- From: Ricardo Lai Sent: 04/03/2024 1:04 PM CDT To: [facility] Pool Subject: Arthur Internal referral, records in [facility]Care Everywhere. Please advise on scheduling. documented in this encounter Plan of Treatment Not on file documented as of this encounter Visit Diagnoses Not on filedocumented in this encounter Care Teams Skatesman Relationship Specialty Start Date End Date Elizabeth Borrego PA [address] [facility] [facility] [address] [place], [place] [id number] PCP - General Internal Medicine 09/28/23 Luann Lawrence NP Nurse Practitioner Nurse Practitioner 01/06/19 Adarsh Tuttle MD [address] [facility] [address] [place] [address] Consulting Physician Gastroenterology 02/22/19 Sebastien Martinez DO [address] [place] [address] Medical Oncologist/Edging Catcher Hematology and Oncology 02/22/19 Guru Winters DO [address] [place] [address] 092049 Consulting Physician Gastroenterology 02/22/19 Gato Abrams MD [address] [place] [id number] Surgeon Surgical Oncology 09/07/19 Marina Rosales MD [address] [place] [address] Consulting Physician General Surgery 03/24/21 documented as of this encounter
--- OUTSIDE RECORDS SUMMARY | 2024-10-04 02:56 | XMS_ITS | Encounter Summary ---
Author Organization [facility] Address [address] [place] [address] Phone Care Team Providers Care Electrical Appliance Repairer Name Role Phone Luann Lawrence ANUP Unavailable [phone] Adarsh Tuttle MD Unavailable [phone] Sebastien Martinez DO Unavailable [phone] Guru Winters DO Unavailable [phone] Gato Abrams MD Unavailable [phone] Marina Rosales MD Unavailable [phone] Elizabeth Borrego Primary Care Provider [phone] Encounter Details Date Type Department Care Team (Late st Contact Info) Description 05/02/2024 Telephone [facility] Rheumatology [address] [facility] Advanced Medicine 5th [place] [address] [place] [address] Salome Quiñonez MD [address] [place], [place] [id number] Social History Tobacco Use Types Packs/Day Years [...] on file 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 Per Rx : Take 1 tablet (200 mg total) by mouth every other day Take 400mg (2 tablets) on even days and 200mg (1 tablet) on odd days Per last office note Ok to continue lower dose of hydroxychloroquine 200 mg daily (since 04/15/24) as patient has significant relief in the past with HCQ and has been on this medication for extended period of time -continue annual eye exams to monitor for Plaquenil toxicity. documented in this encounter Plan of Treatment Not on file documented as of this encounter Visit Diagnoses Not on filedocumented in this encounter Care Teams Electrical Appliance Repairer Relationship Specialty Start Date End Date Elizabeth Borrego PA [address] [address] PCP - General Internal Medicine 09/28/23 Luann Lawrence NP Nurse Practitioner Nurse Practitioner 01/06/19 Adarsh Tuttle MD [address] [facility] [address] [place] [address] Consulting Physician Gastroenterology 02/22/19 Sebastien Martinez DO [address] [place] [address] Medical Oncologist/Databases Computer Consultant Hematology and Oncology 02/22/19 Guru Winters DO [address] [place] [address] Consulting Physician Gastroenterology 02/22/19 Gato Abrams MD [address] [place] [address] Surgeon Surgical Oncology 09/07/19 Marina Rosales MD [address] [place] [address] 172069 Consulting Physician General Surgery 03/24/21 documented as of this encounter
--- OUTSIDE RECORDS SUMMARY | 2024-10-04 02:56 | XMS_ITS | Encounter Summary ---
Author Organization [facility] Address [address] [place] [address] Phone Care Team Providers Care Traffic Signal Repairer Name Role Phone Luann Lawrence ANUP Unavailable [phone] Adarsh Tuttle MD Unavailable [phone] Sebastien Martinez DO Unavailable [phone] Guru Winters DO Unavailable [phone] Gato Abrams MD Unavailable [phone] Marina Rosales MD Unavailable [phone] Elizabeth Borrego Primary Care Provider [phone] Encounter Details Date Type Department Care Team (Late st Contact Info) Description 04/19/2024 Telephone [facility] Oncology [facility] [address] [place] [address] Tracy Brock, RN Social History Tobacco Use Types Packs/Day Years [...] on file 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 documented in this encounter Plan of Treatment Not on file documented as of this encounter Visit Diagnoses Not on filedocumented in this encounter Care Teams Traffic Signal Repairer Relationship Specialty Start Date End Date Elizabeth Borrego PA [address] [facility] [address] [place] [address] PCP - General Internal Medicine 09/28/23 Luann Lawrence NP Nurse Practitioner Nurse Practitioner 01/06/19 Adarsh Tuttle MD [address] [facility] [address] [place] [address] Consulting Physician Gastroenterology 02/22/19 Sebastien Martinez DO [address] [facility] [address] [place] [address] Medical Oncologist/Greenskeeper Laborer Hematology and Oncology 02/22/19 Guru Winters DO [address] [place] [address] Consulting Physician Gastroenterology 02/22/19 Gato Abrams MD [address] [place] [address] Surgeon Surgical Oncology 09/07/19 Marina Rosales MD [address] [place] [address] Consulting Physician General Surgery 03/24/21 documented as of this encounter
--- OUTSIDE RECORDS SUMMARY | 2024-10-04 02:56 | XMS_ITS | Encounter Summary ---
Author Organization [facility] Address [address] [place] [address] Phone Care Team Providers Care Director Of Employee Development Name Role Phone Luann Lawrence ANUP Unavailable [phone] Adarsh Tuttle MD Unavailable [phone] Sebastien Martinez DO Unavailable [phone] Guru Winters DO Unavailable [phone] Gato Abrams MD Unavailable [phone] Marina Rosales MD Unavailable Elizabeth Borrego Primary Care Provider [phone] Encounter Details Date Type Department Care Team (Latest Contact Info) Description 07/11/2024 9:30 AM CDT Ancillary Procedure [facility] Orthopaedic Surgery [address] [facility] 1st Floor [address] [place] [address] Acute pain of right knee Social History Tobacco Use Types Packs/Day Years [...] on file 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 Gender Identity Female 06/07/2020 8:39 AM CDT Sexual Orientation Not on file 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 Please refer to the provider's procedure/OR operative note for results. us Daryn Calderon MD POCUS ORDERABLES Final R esult [facility] documented in this encounter Visit Diagnoses Diagnosis Acute pain of right knee documented in this encounter Care Teams Director Of Employee Development Relationship Specialty Start Date End Date Elizabeth Borrego PA [address] [place] [address] PCP - General Internal Medicine 09/28/23 Luann Lawrence NP Nurse Practitioner Nurse Practitioner 01/06/19 Adarsh Tuttle MD [address] [facility] [address] [place] [address] Consulting Physician Gastroenterology 02/22/19 Sebastien Martinez DO [address] [place] [address] Medical Oncologist/Children Librarian Hematology and Oncology 02/22/19 Guru Winters DO [address] [place] [address] Consulting Physician Gastroenterology 02/22/19 Gato Abrams MD [address] [place] [address] [id number] Surgeon Surgical Oncology 09/07/19 Marina Rosales MD [address] [place] [address] Consulting Physician General Surgery 03/24/21 documented as of this encounter
--- OUTSIDE RECORDS SUMMARY | 2024-10-04 02:56 | XMS_ITS | Encounter Summary ---
Author Organization [facility] Address [address] [place] [address] Phone Care Team Providers Care Umbrella Supervisor Name Role Phone Luann Lawrence ANUP Unavailable [phone] Adarsh Tuttle MD Unavailable [phone] Sebastien Martinez DO Unavailable [phone] Guru Winters DO Unavailable [phone] Gato Abrams MD Unavailable [phone] Marina Rosales MD Unavailable Elizabeth Borrego Primary Care Provider [phone] Encounter Details Date Type Department Care Team (Latest Contact Info) Description 04/14/2024 9:15 AM CDT Ancillary Procedure [facility] Rheumatology [facility] Advanced Medicine 5th [place] [address] [place] [address] Seronegative rheumatoid arthritis (CMS/HCC) (HCC) Social History Tobacco Use Types Packs/Day [...] on file 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 Gender Identity Female 06/07/2020 8:39 AM CDT Sexual Orientation Not on file 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 Please refer to the provider's procedure/OR operative note for results. us Jeaneth Arthur MD POCUS ORDERABLES Final Resul t [facility]US[facility] documented in this encounter Visit Diagnoses Diagnosis Seronegative rheumatoid arthritis (CMS/HCC) (HCC) Rheumatoid arthritis documented in this encounter Care Teams Umbrella Supervisor Relationship Specialty Start Date End Date Elizabeth Borrego PA [address] [facility] [address] [place] [address] PCP - General Internal Medicine 09/28/23 Luann Lawrence NP Nurse Practitioner Nurse Practitioner 01/06/19 Adarsh Tuttle MD [address] [facility] [address] [place] [address] Consulting Physician Gastroenterology 02/22/19 Sebastien Martinez DO [address] [place] [address] Medical Oncologist/Round Boner Hematology and Oncology 02/22/19 Guru Winters DO [address] [place] [id number] Consulting Physician Gastroenterology 02/22/19 Gato Abrams MD [address] [place] [address]709 Surgeon Surgical Oncology 09/07/19 Marina Rosalse MD [address] [place] [address] [id number] Consulting Physician General Surgery 03/24/21 documented as of this encounter
--- OUTSIDE RECORDS SUMMARY | 2024-10-04 02:56 | XMS_ITS | Encounter Summary ---
Author Organization [facility] Address [address] [place] [address] Phone Care Team Providers Care Manager Market Development Name Role Phone Luann Lawrence ANUP Unavailable [phone] Adarsh Tuttle MD Unavailable [phone] Sebastien Martinez DO Unavailable [phone] Guru Winters DO Unavailable [phone] Gato Abrams MD Unavailable [phone] Marina Rosales MD Unavailable [phone] Elizabeth Borrego Primary Care Provider [phone] Encounter Details Date Type Department Care Team (Late st Contact Info) Description 04/21/2024 11:00 AM CDT Office Visit [facility] Rheumatology [address] [facility] [address] 5th [place] [address] [place] [id number] Salome Quiñonez MD [address] [place] [address] Seronegative rheumatoid arthritis (CMS/HCC) (HCC) (Primary Dx); High risk medication use Social History Tobacco Use Types Packs/Day Years Used Date Smoking Tobacco: Former Cigarettes 1 2 1 997 - 1998 Smokeless Tobacco: Never Tobacco Cessation:Counseling Given: Not Answered Alcohol Use Standard Drinks/Week Comments Yes 2 [...] on file 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:22 AM RECOOPERER Gender Identity Female 06/07/2020 8:39 AM CDT Sexual Orientation Not on file 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 Not on file Not on file Not on file documented as of this encounter Last Filed Vital Signs Vital Sign Reading Time Taken Comments Blood Pressure 107/67 04/21/2024 10:54 AM CDT Pulse 76 04/21/2024 10:54 AM CDT Temperature 36.7 ??C (98.1 ??F) 04/21/2024 10:54 AM C DT Respiratory Rate - - Oxygen Saturation - - Inhaled Oxygen Concentration - - Weight 63.7 kg (140 lb 6.4 oz) 04/21/2024 10:54 AM CDT Height 162.6 cm (5' 4 ) 04/21/2024 10:54 AM CDT Body Mass Index 24.1 04/21/2024 10:54 AM CDT documented in this encounter Ordered Prescriptions Prescription Sig Dispense Quantity Refills Last Filled Start Date End Date hydroxychloroquine (PLAQUENIL) 200 mg tabletIndications: Rheumatoid Arthritis Take 1 tablet (200 mg total) by mouth every other day Take 400mg (2 tablets) on even days and 200mg (1 tablet) on odd days 45 tablet 1 04/21/2024 09/25/2024 documented in this encounter Progress Notes * Salome Quiñonez MD - 04/21/2024 11:00 AM CDT [facility] Division of Rheumatology Rheumatological disease: seronegative RA Rheumatological medication: HCQ 200mg daily Last clinic visit: 10/01/23 SUBJECTIVE: Chief Complaint: routine follow up. HPI: Fabiola Gibson is a 58 y.o. female with a PMHx of seronegative RA, HTN, LBBB, HLD, depression and history of carcinoid tumor who is following in the Rheumatology Clinic for history of seronegative rheumatoid arthritis. Interval History: Since last visit, patient feeling significantly better. She restarted HCQ since last visit which had resolved her symptoms. Was taking average dose of 300 mg daily. Had ultrasound of right hand last week. Mild synovial thickening and Doppler uptake, but no evidence of active disease over erosions. Provider at that time recommended to decrease hydroxychloroquine to 200 mg daily given how long she has been on this medication. She decreased dose on 04/15/2024. No joint pain currently. However, woke up with right hand stiffness, which is abnormal for her. No joint swelling. No significant morning stiffness. Under more stress recently. Does endorse some SI afew weeks ago, but denies currently. Follows closely with Psychiatry and Psychology. Considering starting antidepressant. Using the medications above and tolerating them well overall. Last saw Ophthalmology 08/2024. No evidence of ototoxicity at that time. No fever, chills, N/V/D, abdominal pain, chest pain, rash, uveitis/scleritis, cough, or SOB. RHEUMATOLOGY BACKGROUND Disease History: Patient states that 10 years ago, she woke up one morning and could not move her hands, wrists. Went to he ED and was told she had arthritis. Given prednisone with significant improvement in two days. Saw Dr. Anthony Hand, rheumatology, at that time who thought she had seronegative RA. Started onHCQ 2012. Was on for 10 years, but was tapered down from 400mg ->200mg->100mg once she established at [facility] rheumatology. Discontinued it at end of July. Was seeing ophthalmology regularly. Noevidence of ototoxicity. Last saw 08/2023. Since discontinuing, she is feeling ok. Currently feeling bilateral PIP/DIP pain and paresthesias (especially when driving). Thinks she has carpal tunnel syndrome. Some bilateral knee pain (R>L). 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 Last aspiration 01/12/24 with PMR, Dr. Calderon, with CS injection. Has been drained by ortho and sports medicine multiple times, but not since 12/2023. Morningstiffness lasting 15-30 minutes. [facility] CMP Cr 0.65, LFT unremarkable CBC: Wbc 3.6, Hgb 11.0 (MCV 82.5), Plts 285k UA nitrite, wbc, many bacteria, positive epi cells; no symptoms Cx E. 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 Normal joint spaces of both feet. Small bilateral heel spurs. 2. Normal joint spaces of both hands. There is a small subchondral cyst or erosion within the left small finger metacarpal head. XR of bilateral hands and wrists 10/01/2023, notable for nonspecific 5th/erosions in bilateral carpi. Moderate to severe CMC oa Right hand US 04/14/24: Synovial based arthropathy with minimal activity in the dominant hand. Erosions were identified at the distal radial styloid, scaphoid bone but with no active power Doppler uptake overlying them. Metacarpophalangeal joints had no definitive synovial hypertrophy and no cortical irregularity. Medication History: HCQ 2012-07/2023, 09/2023-now ROS: All other systems negative except as in HPI. HISTORY: PMHx: Past Medical History: Diagnosis Date Anemia Autoimmune disease (CMS/HCC) (HCC) Cancer (CMS/HCC) (HCC) carcinode tumors Carcinoid tumor of stomach Colon polyp Depression Heart murmur Hyperlipidemia Hypertension Left bundle branch block Rheumatoid arthritis (HCC) Urinary tract infection years ago PSHx: Past Surgical History: Procedure Laterality Date ABDOMINAL SURGERY 08-23-2019 SECTION 1989,1991 twice COLONOSCOPY 11/2018 ENDOMETRIAL ABLATION 09/2005 ESOPHAGOGASTRODUODENOSCOPY 2019 x4 GASTRECTOMY 08/23/2019 partial HERNIA REPAIR STOMACH SURGERY TUBAL LIGATION 02/2005 UPPER GASTROINTESTINAL ENDOSCOPY Social Hx: Social History Tobacco Use Smoking status: Former Current packs/day: 0.00 Average packs/day: 1 pack/day for 2.0 years (2.0 ttl pk-yrs) Types: Cigarettes Start date: 1996 Quit date: 1998 Years since quittin.5 Smokeless tobacco: Never Substance and Sexual Activity Drug use: None Sexual activity: Not Currently Partners: Male Alcohol Use: Alcohol Misuse (11/29/2023) AUDIT-C Frequency of Alcohol Consumption: 2-4 times a month Average Number of Drinks: 3 or 4 Frequency of Binge Drinking: Less than monthly FHx: Family History Problem Relation Age of Onset Dementia Mother Coronary artery disease Mother s/p CABG Emphysema Father Heart failure Father Other (Congestive Heart Failure) Father No Known Problems Sister Heart attack Brother Ovarian cancer Mother's Sister Colon cancer Mother's Brother Cancer Maternal Grandmother Anesthesia problems Neg Hx FHx: Sister: RA Otherwise, no FHx of autoimmune disorders MEDICATIONS: Current Outpatient Medications Medication Instructions cholecalciferol (VITAMIN D-3) 2,000 Units, oral, Daily (early AM) hydroxychloroquine (PLAQUENIL) 200 mg, oral, Every 48 hours, Take 400mg (2 tablets) on even days and 200mg (1 tablet) on odd days pravastatin (PRAVACHOL) 40 mg, oral, Daily valsartan-hydroCHLOROthiazide (DIOVAN-HCT) 80-12.5 mg per tablet 1 tablet, oral, Daily Vyvanse 20 mg capsule ALLERGIES: No Known Allergies OBJECTIVE: Vitals: BP 107/67 (BP Location: Right arm, Patient Position: Sitting) Pulse 76 Temp 36.7 ??C (98.1 ??F) (Oral) Ht 162.6 cm (5' 4 ) Wt 63.7 kg (140 lb 6.4 oz) BMI 24.10 kg/m?? Physical Examination: General: NAD, alert. Occasionally tearful HEENT: EOMs intact grossly. Resp: No difficulty breathing, no audible wheezes or abnormal sounds Ext: No edema. No cyanosis or clubbing Neuro: Gait Normal. Moves all limbs independently Skin: No rash. No ulcers on exposed skin Musculoskeletal: No active synovitis in the hands, wrists, elbows, shoulders, knees, ankles. Able to make a fist bilaterally. No Duke's cyst Investigations: Reviewed below Lab Results Component Value Date WBC 4.2 03/02/2023 HGB 11.4 (L) 03/02/2023 HCT 35.0 (L) 03/02/2023 MCV 89.5 03/02/2023 LABPLAT 244 03/02/2023 NEUTROABS 2.2 03/02/2023 LYMPHSABS 1.3 03/02/2023 EOSABS 0.3 03/02/2023 Lab Results Component Value Date AST 28 03/02/2023 ALT 27 03/02/2023 CREATININE 0.9 04/03/2024 Inflammatory markers: Lab Results Component Value Date SEDRATE 16 10/01/2023 SEDRATE 15 03/02/2023 CRP <3.0 10/01/2023 CRP <3.0 03/02/2023 Vit: Lab Results Component Value Date VITB12 503 03/18/2022 CALCIUM 9.4 03/02/2023 RA: Lab Results Component Value Date RF <10.0 10/01/2023 CCPAB <0.5 10/01/2023 Imaging: Refer to Rheumatology Background above ASSESSMENT/PLAN: //Seronegative RA vs erosive OA //Use of high-risk, immunosuppressive medications Previously diagnosed with seronegative RA. Was following w/ Rheumatology at [facility] in 2022 who suggested more of an erosive OA. Also with degenerative OA. Patient's symptoms improved while on hydroxychloroquine for 10 years. -Hand US after restarting HCQ with minimal activity PLAN: -Ok to continue lower dose of hydroxychloroquine 200 mg daily (since 04/15/24) as patient has significant relief in the past with HCQ and has been on this medication for extended period of time -continue annual eye exams to monitor for Plaquenil toxicity. Last exam 09/08/2023 without evidenceof toxicity //Health Maintenance Immunization History Administered Date(s) Administered Influenza, Quadrivalent, Recombinant, Egg Free, Preservative Free, Intramuscular 07/30/2021 Influenza, Unspecified 07/18/2018, 08/06/2019, 07/22/2020, 07/18/2022 Moderna SARS-CoV-2 Monovalent Vaccination (12+ YRS) 11/19/2020, 12/17/2020, 08/22/2021 Amiigo Sars-Cov-2 Bivalent Vaccination (12+ YRS) 07/03/2022 Due for COVID booster. Flu due fall 2023 Followup: 6 months Patient was seen and discussed with Dr. Fraser. Salome Quiñoenz MD Clinical Fellow [facility], Division of Rheumatology This note was generated in-part with voice recognition software. All attempts were made to correct any real estate leasing manager and/or typographical errors that can occur, but some errors may still exist. Cosigned by Paulette Fraser MD at 04/24/2024 1:12 PM CDT Associated attestation - Paulette Fraser MD - 04/24/2024 1:12 PM CDT I have seen and examined the patient. I agree with the findings and plan of care as documented in the resident/fellow's note. documented in this encounter Plan of Treatment Not on file documented as of this encounter Visit Diagnoses Diagnosis Seronegative rheumatoid arthritis (CMS/HCC) ([facility])- Primary Rheumatoid arthritis High risk medication use documented in this encounter Discontinued Medications Medication Sig Discontinue Reason Start Date End Da te hydroxychloroquine (PLAQUENIL) 200 mg tabletIndications:Rheuma toid Arthritis Take 2 tablets (400 mg total) by mouth every other day AND 1 tablet (200 mg total) every other day. Take 400mg (2 tablets) on even days and 200mg (1 tablet) on odd days. 10/01/2023 04/21/2024 documented as of this encounter Historical Medications * This list may reflect changes made after this encounter. Medication Sig Dispense Quantity Refills Last Filled Start D ate End Date Vyvanse 20 mg capsule 12/08/2023 added in this encounter Care Teams Manager Market Development Relationship Specialty Start Date End Date Elizabeth Borrego PA [address] [facility] [address] [place] [address] PCP - General Internal Medicine 09/28/23 Luann Lawrence, ANUP Nurse Practitioner Nurse Practitioner 01/06/19 Adarsh Tuttle MD [address] [facility] [address] [place] [address] Consulting Physician Gastroenterology 02/22/19 Sebastien Martinez DO [address] [place] [id number] Medical Oncologist/Basic Acoustic Analyst Hematology and Oncology 02/22/19 Guru Winters DO [address] [place] [address] [id number] Consulting Physician Gastroenterology 02/22/19 Gato Abrams MD [address] [place] [id number] Surgeon Surgical Oncology 09/07/19 Marina Rosales MD [address] [place] [id number] Consulting Physician General Surgery 03/24/21 documented as of this encounter
--- OUTSIDE RECORDS SUMMARY | 2024-10-04 02:56 | XMS_ITS | Encounter Summary ---
Author Organization [facility] Healthcare Address [address] [place] [address] Care Team Providers Care Client Support Manager Name Role Phone Luann Lawrence NP Unavailable [phone] Adarsh Tuttle MD Unavailable [phone] Sebastien Martinez DO Unavailable [phone] Guru Winters DO Unavailable [phone] Gato Abrams MD Unavailable [phone] Marina Rosales MD Unavailable [phone] Elizabeth Borrego Primary Care Provider [phone] Reason for Referral * MRI/CAT/PET Scan (Routine) - Pending Review Specialty Diagnoses / Procedures Referred By Contac t Referred To Contact Radiology Diagnoses LBBB (left bundle branch block) Procedures CT Coronary Calcium Scoring Lani Coats NP [address] [address] Phone: tel: fax: [address] [phone] Referral ID Status Reason Start Date Expiration Date V isits Requested Visits Authorized [id number] Pending Review 10/02/2024 11/01/2025 1 1 IAL EVENTS COORDINATOR * Cardiology (Routine) - Authorized Specialty Diagnoses / Procedures Referred By Contac t Referred To Contact Diagnoses LBBB (left bundle branch block) Procedures ECG 12 lead Pauly, Lani Yanelis, OPERATIONS TECHNICIAN [address] [address] Phone: tel: fax: Referral ID Status Reason Start Date Expiration Date V isits Requested Visits Authorized [id number] Authorized 10/02/2024 11/01/2025 1 1 IAL EVENTS COORDINATOR Reason for Visit * Reason Comments Annual Exam Encounter Details Date Type Department Care Team (Late st Contact Info) Description 10/02/2024 8:30 AM SPECIAL EVENTS COORDINATOR Office Visit [facility] Cardiology [address] [place] [phone] Lani Coats NP [address] [address] LBBB (left bundle branch block) (Primary Dx); HTN (hypertension), benign; Dyslipidemia; Family history of premature coronary artery disease Social History Tobacco Use Types Packs/Day Years Used Date Smoking Tobacco: Former Cigarettes 1 2 1 7 - 1998 Smokeless Tobacco: Never Tobacco Cessation:Counseling [...] on file 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:22 AM SPECIAL EVENTS COORDINATOR Gender Identity Female 06/07/2020 8:39 AM CDT Sexual Orientation Not on file 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 Not on file Not on file documented as of this encounter Last Filed Vital Signs Vital Sign Reading Time Taken Comments Blood Pressure 106/62 10/02/2024 8:28 AM SPECIAL EVENTS COORDINATOR Pulse 60 10/02/2024 8:28 AM SPECIAL EVENTS COORDINATOR Temperature - - Respiratory Rate - - Oxygen Saturation 96% 10/02/2024 8:28 AM SPECIAL EVENTS COORDINATOR Inhaled Oxygen Concentration - - Weight 64.4 kg (142 lb) 10/02/2024 8:28 AM SPECIAL EVENTS COORDINATOR Height 162.6 cm (5' 4 ) 10/02/2024 8:28 AM SPECIAL EVENTS COORDINATOR Body Mass Index 24.37 10/02/2024 8:28 AM SPECIAL EVENTS COORDINATOR documented in this encounter Patient Instructions * Patient Instructions* Lnai Coats NP - 10/02/2024 8:30 AM SPECIAL EVENTS COORDINATOR Coronary artery calcium scoring at [facility] To schedule call [phone] IAL EVENTS COORDINATOR documented in this encounter Progress Notes * Lani Coats NP - 10/02/2024 8:30 AM CST Images from the original note were not included. [facility] Cardiology [address] [place] [address] Date of Visit: 10/02/2024 Patient ID: Fabiola Gibson 1965 Chief Complaint Patient presents with Annual Exam Fabiola Gibson is a 59 y.o. female who is a former patient of Dr. Marroquin followed for left bundle branch block, palpitations and HTN. She returns for annual follow-up. History of Present Illness: Fabiola Gibson is a 59 y.o. 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 Marroquin in January 2020 by [employer] Dozier for opinion regarding left bundle branch block on EKG. 02/13/20 Initial visit: Patient presents today on referral for further evaluation of left bundle-branch block which she was1st told about last year in relation to workup for her carcinoid tumor of the stomach. She states that workup began due to unexplained anemia finally discovered on the upper endoscopy. She underwent partial gastrectomy at [facility] without complication. She states over 20 years ago she had seen a pot fluxer after being told she had an irregular heartbeat for which she wore a Holter monitor and wasplaced on atenolol. She took this medication for several years but does not recall a specific diagnosis. She admits she did not follow-up with a pot fluxer after seeing him initially. She has now been off atenolol for the past 2 to 3 years is states she otherwise feels well. She has occasional fluttering in the chest which is transient lasting we are secondary to. No associated near-syncope, syncope, dizziness, lightheadedness, chest pain or shortness of breath. Patient is active and exercises daily is able to walk for 6 miles without any limitations. She has not had a workup with the leftbundle-branch block noted on her EKG in the past and is now referred in this regard. She has no known history of myocardial infarction, CAD, stroke, bleeding complications, DVT and/or PE. She has been treated for seronegative rheumatoid arthritis with hydroxychloroquine for many years. She has beentold at times her heart rate has been slow but this has only been mentioned without further evaluation. She denies significant edema, orthopnea or PND. Preoperative STOP Bang in 2019 suggestive of sleep apnea. Last routine office visit with Dr. Marroquin September 2023. 10/02/2024 office visit with OPERATIONS TECHNICIAN: Returns for annual follow-up. She denies any new chest discomfort.She denies lightheadedness or dizziness. She attributes weight loss to decreased appetite being on Vyvanse and some personal stress few months ago with her grandson being ill and hospitalized. She had her fasting lipid panel drawn 2 days ago. She asked about further cardiac testing because of her family history with a brother who had a fatal IN in his 40s and a mother who had CABG. 12-lead ECG performed in the office today was independently interpreted by me and showed sinus rhythm, LBBB, rate 58 beats per minute; compared to ECG dated 09/30/2023 no change. Medical History: Past Medical History: Diagnosis Date Anemia [...] TUBAL LIGATION 02/2005 UPPER GASTROINTESTINAL ENDOSCOPY Social History Tobacco Use Smoking Status Former Current packs/day: 0.00 Average packs/day: 1 pack/day for 2.0 years (2.0 ttl pk-yrs) Types: Cigarettes Start date: 1996 Quit date: 1998 Years since quittin.9 Smokeless Tobacco Never Social History Tobacco Use Smoking status: Former Current packs/day: 0.00 Average packs/day: 1 pack/day for 2.0 years (2.0 ttl pk-yrs) Types: Cigarettes Start date: 1996 Quit date: 1998 Years since quittin.9 Smokeless tobacco: Never Substance and Sexual Activity Drug use: None Sexual activity: Not Currently Partners: Male Alcohol Use: Alcohol Misuse (08/07/2024) AUDIT-C Frequency of Alcohol Consumption: 2-4 times a month Average Number of Drinks: 3 or 4 Frequency of Binge Drinking: Less than monthly Family History Problem Relation Age of Onset Dementia Mother Coronary artery disease Mother s/p CABG Emphysema Father Heart failure Father Other (Congestive Heart Failure) Father No Known Problems Sister Heart attack Brother Ovarian cancer Mother's Sister Colon cancer Mother's Brother Cancer Maternal Grandmother Anesthesia problems Neg Hx Review of Systems Constitutional: Positive for weight loss. Negative for malaise/fatigue and weight gain. Cardiovascular: Negative for chest pain, dyspnea on exertion, leg swelling, near-syncope, orthopnea, palpitations, paroxysmal nocturnal dyspnea and syncope. Respiratory: Negative for cough, shortness of breath and sleep disturbances due to breathing. Hematologic/Lymphatic: Negative for bleeding problem. Does not bruise/bleed easily. Vital Signs: BP 106/62 (BP Location: Left arm, Patient Position: Sitting) Pulse 60 Ht 162.6 cm (5' 4 ) Wt 64.4 kg (142 lb) SpO2 96% BMI 24.37 kg/m?? Physical Exam Constitutional: General: She is not in acute distress. Appearance: She is well-developed. HENT: Head: Normocephalic and atraumatic. Eyes: General: No scleral icterus. Conjunctiva/sclera: Conjunctivae normal. Neck: Vascular: No JVD. Trachea: No tracheal deviation. Cardiovascular: Rate and Rhythm: Regular rhythm. Bradycardia present. Heart sounds: Normal heart sounds. No murmur heard. Pulmonary: Effort: Pulmonary effort is normal. No respiratory distress. Breath sounds: Normal breath sounds. Skin: General: Skin is warm and dry. Neurological: Mental Status: She is alert and oriented to person, place, and time. Psychiatric: Mood and Affect: Mood normal. Behavior: Behavior normal. No Known Allergies Current Outpatient Medications: cholecalciferol (VITAMIN D-3) 1,000 unit capsule, Take 2 capsules (2,000 Units total) by mouth sourcing consultant before breakfast, Disp: , Rfl: hydroxychloroquine (PLAQUENIL) 200 mg tablet, TAKE 1 TABLET BY MOUTH DAILY, Disp: 90 tablet, Rfl: 0 pravastatin (PRAVACHOL) 40 mg tablet, Take 1 tablet (40 mg total) by mouth daily, Disp: 90 tablet, Rfl: 3 sertraline (ZOLOFT) 50 mg tablet, Take 1 tablet (50 mg total) by mouth daily, Disp: , Rfl: valsartan-hydroCHLOROthiazide (DIOVAN-HCT) 80-12.5 mg per tablet, Take 1 tablet by mouth daily, Disp: 90 tablet, Rfl: 3 Vyvanse 20 mg capsule, , Disp: , Rfl: Lab Results Component Value Date POTASSIUM 4.1 03/02/2023 BUNSER 14 03/02/2023 CREATININE 0.9 04/03/2024 Lab Results Component Value Date WBC 4.1 04/21/2024 HGB 11.6 (L) 04/21/2024 HCT 35.4 (L) 04/21/2024 MCV 88.7 04/21/2024 No results found for this or any previous visit (from the past 4 hours). Lab Results Component Value Date POCCHOL 194 09/30/2023 POCHDL 32 09/30/2023 POCTRIG 213 09/30/2023 POCLDL 120 09/30/2023 POCNONHDL 162 09/30/2023 POCCHLPL 194 09/30/2023 02/21/20 2D Echo: EF 60-65 nl LV wall thickness paradoxical septal wall motion grade II DD trace AI, no . Lambl's excresence 04/05/23 2D Echo: Conclusions: Normal left ventricular systolic function. No focal [...] regurgitation. Mild tricuspid regurgitation. Normal sinus rhythm. Assessment: Diagnoses and all orders for this visit: LBBB (left bundle branch block) (Primary) - ECG 12 lead; Future - CT Coronary Calcium Scoring; Future HTN (hypertension), benign Dyslipidemia Family history of premature coronary artery disease Plan/Recommendations: Left bundle-branch block is stable. She is not having angina. But she does have a strong family history. To better risk stratify her and ensure that we are being adequately aggressive at reducing herrisks, we will follow-up on the results of her lipid panel she had done 2 days ago and pursue a coronary artery calcium score. Can then determine if her current statin therapy is adequate and if there is an indication for aspirin therapy. I will follow up with her over the phone as I get these results. Blood pressure is somewhat low but she is not having any symptoms of hypotension. Continue valsartan/hydrochlorothiazide combination pill the same. Transition ongoing care from Dr. Marroquin to Dr. Swartz. We will plan annual follow-up but I will assist with her care in the interim. 10/02/2024 CHELSEA Santiago- Nurse Practitioner with [facility] [place] [facility] This note is dictated and transcribed using [employer] Software. Telescope Repairer variancesmay occur. Despite proofreading, typographical errors may occur. IAL EVENTS COORDINATOR documented in this encounter Plan of Treatment Scheduled Orders Name Type Priority Associated Diagnoses Orde r Schedule CT Coronary Calcium Scoring Imaging Schedule Routine, Read Routine (OP Routine) LBBB (left bundle branch block) Expected: 10/02/2024, Expires: 10/02/2025 documented as of this encounter Results * ECG 12 lead (10/02/2024) 10/02/2024 us Lani Coats OPERATIONS TECHNICIAN ECG ORDERABLES Edited Re sult - Final documented in this encounter Visit Diagnoses Diagnosis LBBB (left bundle branch block)- Primary Other left bundle branch block HTN (hypertension), benign Essential hypertension, benign Dyslipidemia Other and unspecified hyperlipidemia Family history of premature coronary artery disease Family history of ischemic heart disease documented in this encounter Care Teams Client Support Manager Relationship Specialty Start Date End Date Elizabeth Borrego PA [address] [place], [place] [phone] PCP - General Internal Medicine 09/28/23 Luann Lawrence NP Nurse Practitioner Nurse Practitioner 01/06/19 Adarsh Tuttle MD [address] [place] [address] Consulting Physician Gastroenterology 02/22/19 Sebastien Martinez DO [address] [place], [place] [id number] Medical Oncologist/Collections Representative Hematology and Oncology 02/22/19 Guru Winters DO [address] [place] [address] Consulting Physician Gastroenterology 02/22/19 Gato Abrams MD [address] [place], [place] [address] Surgeon Surgical Oncology 09/07/19 Marina Rosales MD [address] [place], [place] [address] Consulting Physician General Surgery 03/24/21 documented as of this encounter
--- OUTSIDE RECORDS SUMMARY | 2024-10-04 02:56 | XMS_ITS ---
Author Organization [facility] Address [address] [place] [address] Care Team Providers Care Sack Department Supervisor Name Role Phone Luann Lawrence NP Unavailable [phone] Adarsh Tuttle MD Unavailable [phone] Sebastien Martinez DO Unavailable [phone] Guru Winters DO Unavailable [phone] Gtao Abrams MD Unavailable [phone] Marina Rosales MD Unavailable [phone] Elizabeth Borrego Primary Care Provider [phone] Active Problems Problem Noted Date Diagnosed Date Seronegative rheumatoid arthritis ([facility]) 03/19 Cervical cancer screening 12/16/2023 Assessment & Plan (12/16/2023 9:09 PM CRUSHING MILL OPERATOR): Pap smear obtained. Reviewed screening protocol per most recent recommendations Encounter for routine gyneco logical examination with Papanicolaou smear of cervix 12/16/2023 Assessment & Plan (12/16/2023 9:09 PM CRUSHING MILL OPERATOR): Encouraged healthy lifestyle, good nutrition and exercise. Encouraged Calcium and Vitamin D and weight bearing exercise for bone health. Reviewed immunizations Reviewed age appropirate screenings. Snoring 05/18/2023 Assessment & Plan (05/18/2023 8:52 AM CDT): The patient presents with snoring and was witnessed to have apneic episodes following a recent procedure where she would conscious sedation. I have ordered a home sleep test since she has [employer] insurance. She will follow-up with me in 3 months. BMI 28.0-28.9,adult 10/29/2022 Assessment & Plan (12/16/2023 9:09 PM CRUSHING MILL OPERATOR): Weight/BMI is in healthy range. Continue healthy lifestyle to maintain. Assessment & Plan (10/29/2022 3:03 PM CRUSHING MILL OPERATOR): Weight/BMI is in healthy range. Continue healthy lifestyle to maintain. Swelling of joint, knee, right 03/12/2022 Synovial cyst of right popliteal space 2 Effusion of right knee 03/12/2022 Mixed hyperlipidemia 09/23/2021 Assessment & Plan (10/30/2022 5:03 PM CRUSHING MILL OPERATOR): Encouraged patient to follow low fat/low chol diet like the Mediterranean diet. Increase good fats in the diet. Increase exercise. Monitor labs as needed. Continue pravastatin Assessment & Plan (11/09/2021 6:33 PM CRUSHING MILL OPERATOR): Encouraged patient to follow fat/low chol diet like the Mediterranean diet. Increase good fats in the diet. Increase exercise. Monitor labs as needed. Continue pravastatin COVID-19 08/08/2020 Overview (08/08/2020): Positive on 08/08/2020 Fever 08/07/2020 Assessment & Plan (08/07/2020 10:23 AM CDT): Sxs can be consistent with COVID or Flu or other viral syndrome. Recommend testing. Refer to [facility] site. Call immediately for increased sxs/distress or go to ER as instructed below notifying them prior to arrival of presumptive positive. Start Zinc and Vitamin D 5,000IU otc. Discussed albuterol and declines at this time. Pt instructed to presume positive COVID until testing is available. Patient to self isolate for 14 days from the onset of sxs. Monitor sxs and call if has any of the following: --trouble breathing --persistent pain or pressure in the chest --new confusion --inability to wake or stay awake -- bluish lips or face If patient has been in close contact with anyone, they should be notified and instructed to quarantine per CDC guidelines for 14 days after last exposure to the positive COVID patient and monitor closely for symptoms of COVID. If they appear they should be tested. Close contact includes: --You were within 6 feet of someone who has COVID-19 for a total of 15 minutes or more --You provided care at home to someone who is sick with COVID-19 --You had direct physical contact with the person (hugged or kissed them) --You shared eating or drinking utensils --They sneezed, coughed, or somehow got respiratory droplets on you Additional Steps to avoid exposure/spread include: ?? Avoid crowded places where close contact with others may occur, such as shopping centers, movie theaters, dormitories, or stadiums. ?? Avoid transit where close contact with others may occur, such as planes, trains, and buses. ?? Maintain a distance of approximately 6 feet from other people whenever possible (spacing out if you are in a line, leaving 2 seats in between others at a waiting room when possible). ?? Wash your hands with soap and water often. If needed, use a hand electrotype servicer that contains at least 60% alcohol. ?? Clean and disinfect frequently touched surfaces such as tables, doorknobs, countertops, etc daily. ?? Avoid touching your eyes, nose, and mouth when possible. Submucosal lesion of stomach 04/24/2020 Overview (04/24/2020): Added automatically from request for surgery [id number] Annual physical exam 03/31/2020 Assessment & Plan (10/30/2022 5:02 PM CRUSHING MILL OPERATOR): Encouraged healthy lifestyle, good nutrition and exercise. Encouraged Calcium and Vitamin D and weight bearing exercise for bone health. Reviewed immunizations Reviewed age appropirate screenings. Assessment & Plan (11/09/2021 6:32 PM CRUSHING MILL OPERATOR): Encouraged healthy lifestyle, good nutrition and exercise. Encouraged Calcium and Vitamin D and weight bearing exercise for bone health. Reviewed immunizations Reviewed age appropirate screenings. Assessment & Plan (10/06/2020 9:42 PM CRUSHING MILL OPERATOR): Encouraged healthy lifestyle, good nutrition and exercise. Encouraged Calcium and Vitamin D and weight bearing exercise for bone health. Reviewed immunizations Reviewed age appropirate screenings. Assessment & Plan (03/31/2020 9:49 PM CDT): Encouraged healthy lifestyle, good nutrition and exercise. Encouraged Calcium and Vitamin D and weight bearing exercise for bone health. Reviewed immunizations Reviewed age appropirate screenings. Chronic fatigue 03/31/2020 Assessment & Plan (03/31/2020 9:49 PM CDT): Probably multifactorial. Check labs and followup to re-evaluate Breast cancer screening by mammogram 03/31/2020 Assessment & Plan (12/16/2023 9:09 PM CRUSHING MILL OPERATOR): Mammogram order provided Assessment & Plan (10/30/2022 5:02 PM CRUSHING MILL OPERATOR): Mammogram order provided Assessment & Plan (11/09/2021 6:32 PM CRUSHING MILL OPERATOR): Has mammogram order. Encouraged to schedule. Assessment & Plan (03/31/2020 9:50 PM CDT): Mammogram order provided Gastroesophageal reflux disease without esophagi tis 03/31/2020 Assessment & Plan (03/31/2020 9:48 PM CDT): Continue PPI Erosive osteoarthritis 03/31/2020 Assessment & Plan (03/31/2020 9:49 PM CDT): Continue Plaquenil per Rheumatology Moderate episode of recurrent major depressive d isorder 03/31/2020 Assessment & Plan (10/30/2022 5:02 PM CRUSHING MILL OPERATOR): Stable with Wellbutrin 150. She discontinue Lexapro was feeling good. Will continue monitor closely. Prescription sent to pharmacy Assessment & Plan (11/09/2021 6:33 PM CRUSHING MILL OPERATOR): Stable with Lexapro and Wellbutrin Assessment & Plan (10/06/2020 9:42 PM CRUSHING MILL OPERATOR): Stable with wellbutrin and lexapro Assessment & Plan (03/31/2020 9:51 PM CDT): Continue Wellbutrin and lexapro. Sxs are stable. 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 Encouraged to limit sodium intake and exercise for weight control. Continue valsartan hydrochlorothiazide Assessment & Plan (11/09/2021 6:32 PM CRUSHING MILL OPERATOR): Bp is stable/in acceptable range for any co-morbidities. Encouraged to limit sodium intake and exercise for weight control. Continue valsartan hydrochlorothiazide Assessment & Plan (10/06/2020 9:41 PM CRUSHING MILL OPERATOR): Bp is stable/in acceptable range for any co-morbidities. Encouraged to limit sodium intake and exercise for weight control. Assessment & Plan (03/31/2020 9:45 PM CDT): Bp is stable/in acceptable range for any co-morbidities. Encouraged to limit sodium intake and exercise for weight control. Continue diovanHCT LBBB (left bundle branch block) 02/13/2020 Assessment & Plan (03/31/2020 9:45 PM CDT): Continue per cardio Palpitations 02/13/2020 Premature atrial contractions 02/13/2020 Iron deficiency anemia due to chronic blood loss 09/19/2019 Assessment & Plan (03/31/2020 9:49 PM CDT): Continue per ONC Gastric carcinoma 06/27/2019 Overview (06/27/2019): Added automatically from request for surgery [id number] Assessment & Plan (10/06/2020 9:41 PM CRUSHING MILL OPERATOR): Continue per ONC. ON current therapy Pernicious anemia 06/21/2019 Assessment & Plan (11/09/2021 6:32 PM CRUSHING MILL OPERATOR): Continue B12 Assessment & Plan (03/31/2020 9:49 PM CDT): Continue B12 supplement per onc Carcinoid tumor of stomach 06/08/2019 Overview (06/08/2019): Added automatically from request for surgery [id number] Malignant carcinoid tumor of stomach 01/10/2019 Assessment & Plan (10/30/2022 5:02 PM CRUSHING MILL OPERATOR): Continue very close observation with Dr. Martinez and Dr. Abrams. She is stop the Sandostatin at this point and is awaiting monitoring of labs and imaging to determine next step. Assessment & Plan (11/09/2021 6:32 PM CRUSHING MILL OPERATOR): Continue per Oncology Dr. Martinez and Gastroenterology as instructed. Still under very close observation with regular imaging in interventions. Assessment & Plan (03/31/2020 9:45 PM CDT): Continue per ONC Current Oncology Plans Octreotide 28 Day Cycles - Carcinoid* Plan Start Date:04/04/2020 Plan Provider:Sebastien Martinez, Linked Problems Malignant carcinoid tumor of stomach (HCC) Treatment Medications Current Day (Day 1 , Cycle 34 - Planned for 11/25/2022) Next Day (Day 1, Cycle 35 - Planned for 12/23/2022) octreotide LAR (SandoSTATIN LAR) octreotide LAR (SandoSTATIN LAR) extended release intramuscular injection 10 mg octreotide LAR (SandoSTATIN LAR) extended release intramuscular injection 10 mg Past Plans Radiation Treatments * No radiation treatments are documented for this patient in [facility]. Treatments may have been administered in another system. Lifetime Dose Tracking * Chemical Lifetime Dose Automatic Entry Manual Entr y DLP 9,630 mGycm 9,630 mGycm 0 mGycm Resolved Problems Problem Noted Date Diagnosed Date Resolved Date BMI 26.0-26.9,adult 10/01/2020 10/29/19 Assessment & Plan (11/09/2021 6:33 PM CRUSHING MILL OPERATOR): Weight/BMI is in healthy range. Continue healthy lifestyle to maintain. Assessment & Plan (10/01/2020 1:47 PM CRUSHING MILL OPERATOR): Weight/BMI is in healthy range. Continue healthy lifestyle to maintain. Incisional hernia, without o bstruction or gangrene 04/05/2020 06/20/2020 Overview (04/05/2020): Added automatically from request for surgery [id number] BMI 27.0-27.9,adult 03/25/2020 10/01/20 Assessment & Plan (03/25/2020 2:26 PM CDT): Weight/BMI is in healthy range. Continue healthy lifestyle to maintain. Dyslipidemia 02/13/2020 09/23/2021 Assessment & Plan (10/06/2020 9:41 PM CRUSHING MILL OPERATOR): Encouraged patient to follow fat/low chol diet like the Mediterranean diet. Increase good fats in the diet. Increase exercise. Monitor labs as needed. Continue statin Assessment & Plan (03/31/2020 9:49 PM CDT): Encouraged patient to continue low fat/low chol diet. Continue exercise. Increase good fats in the diet. Monitor labs as needed. Continue statin Malignant carcinoid tumor of stomach 01/22/2019 01/22/2019
--- OUTSIDE RECORDS SUMMARY | 2024-10-04 02:56 | XMS_ITS | Encounter Summary ---
Author Organization [facility] Address [address] [place] [address] Phone Care Team Providers Care Flux Tube Attendant Name Role Phone Luann Lawrence ANUP Unavailable [phone] Adarsh Tuttle MD Unavailable [phone] Sebastien Martinez DO Unavailable [phone] Guru Winters DO Unavailable [phone] Gato Abrams MD Unavailable [phone] Marina Rosales MD Unavailable [phone] Elizabeth Borrego Primary Care Provider [phone] Reason for Referral * Injectables (Routine) - Pending Review Specialty Diagnoses / Procedures Referred By Contac t Referred To Contact Diagnoses Synovial cyst of right popliteal space Swelling of joint, knee, right Chronic pain of right knee Procedures Large Joint Injection w/ Ultrasound Guidance Daryn Calderon MD [address] [facility] [address] [place] [address] Phone: tel: fax: [facility] (All Locations) Referral ID Status Reason Start Date Expiration Date V isits Requested Visits Authorized [id number] Pending Review 07/10/2024 08/09/2025 1 1 Encounter Details Date Type Department Care Team (Late st Contact Info) Description 07/10/2024 Orders Only [facility] Orthopaedic Surgery [address] [place] [address] Daryn Calderon MD [address] 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 No Do you have cardiology clearance to obtain RFA? N/A Are you or plan on becoming prior to the scheduled procedure: No NSAIDS/Blood thinners: No Not Applicable Pressure Tester: No If patient requires an recycling tech, do let radiology scheduling ([phone]) know at the time of scheduling and they will schedule the recycling tech for patient Are you on oxygen or have a tracheostomy? (Patients on supplemental oxygen or with current tracheostomy cannot be scheduled at [facility]) No Diabetic: No Not Applicable Confirm patient's insurance: Yes [facility] What is patient's BMI (Maximum BMI at [facility] is 50) Have you had conservative treatment for your pain? Yes, Physical Therapy Patient instructed to come with a operator and truck driver?: N/A Patient with commercial insurance or those with Medicare receiving Facet injection informed that ifprocedure is not approved by 3 pm the day prior, it will be rescheduled?: N/A Provided Pre-Procedure Instructions including arrival time: No My Chart Remind patient to submit pain diary after their injection: Yes Does the ordering provider's note have a disability scale? N/A Disability scale must be in the chart for ALL Medicare Facet injection before they will be approved. Use [employer] to pull in disability scale into the chart for [facility] orth[facility] patients. Patient encouraged to call with issues/concerns. documented in this encounter Plan of Treatment Scheduled Orders Name Type Priority Associated Diagnoses Orde r Schedule Large Joint Injection w/ Ultrasound Guidance Procedures Routine Synovial cyst of right popliteal space Swelling of joint, knee, right Chronic pain of right knee 1 Occurrences starting 07/10/2024 until 07/10/2025 documented as of this encounter Visit Diagnoses Diagnosis Synovial cyst of right popliteal space- Primary Swelling of joint, knee, right Chronic pain of right knee documented in this encounter Care Teams Flux Tube Attendant Relationship Specialty Start Date End Date Elizabeth Borrego PA [address] [facility] [address] [place] [address] PCP - General Internal Medicine 09/28/23 Luann Lawrence NP Nurse Practitioner Nurse Practitioner 01/06/19 Adarsh Tuttle MD [address] [facility] [address] [place] [address] Consulting Physician Gastroenterology 02/22/19 Sebastien Martinez DO [address] [place] [id number] Medical Oncologist/Mule Rider Hematology and Oncology 02/22/19 Guru Winters DO [address] [place] [address] [id number] Consulting Physician Gastroenterology 02/22/19 Gato Abrams MD [address] [place], [place] [address] Surgeon Surgical Oncology 09/07/19 Marina Rosales MD [address] [place], [place] [address] Consulting Physician General Surgery 03/24/21 documented as of this encounter
--- OUTSIDE RECORDS SUMMARY | 2024-10-04 02:56 | XMS_ITS | Clinical Summary ---
Author Organization [facility] Address [address] [place] [address] Care Team Providers Care Parts Finisher Name Role Phone Luann Lawrence NP Unavailable [phone] Adarsh Tuttle MD Unavailable [phone] Sebastien Martinez DO Unavailable [phone] Guru Winters DO Unavailable [phone] Gato Abrams MD Unavailable Marina Rosales MD Unavailable [phone] Elizabeth Borrego Primary Care Provider [phone] Allergies No known active allergies Medications cholecalcifero l (VITAMIN D-3) 1,000 unit capsuleIndicat ions:Vitamin D Deficiency Take 2 capsules (2,000 Units total) by mouth manager winter before breakfast Active pravastatin (PRAVACHOL) 40 mg tabletIndicati ons:Dyslipidem ia Take 1 tablet (40 mg total) by mouth daily 90 tablet 3 03/10/20 24 Active Vyvanse 20 mg capsule 12/08/19 24 Active sertraline (ZOLOFT) 50 mg tablet Take 1 tablet (50 mg total) by mouth daily 06/06/20 24 Active valsartan-hydr oCHLOROthiazid e (DIOVAN-HCT) 80-12.5 mg per tabletIndicati ons:hypertensi on Take 1 tablet by mouth daily 90 tablet 3 08/17/20 24 025 Active hydroxychloroq uine (PLAQUENIL) 200 mg tabletIndicati ons:Seronegati ve rheumatoid arthritis (CMS/HCC) ([facility]) TAKE 1 TABLET BY MOUTH DAILY 90 tablet 09/25/20 24 Active hydroxychloroq uine (PLAQUENIL) 200 mg tabletIndicati ons:Rheumatoid Arthritis Take 1 tablet (200 mg total) by mouth every other day Take 400mg (2 tablets) on even days and 200mg (1 tablet) on odd days 45 tablet 1 04/21/20 24 024 Discontinued Active Problems Problem Noted Date Diagnosed Date Seronegative rheumatoid arthritis (CMS/HCC) 03/19 Cervical cancer screening 12/16/2023 Assessment & Plan (12/16/2023 9:09 PM FIRE PROTECTION INSPECTOR): Pap smear obtained. Reviewed screening protocol per most recent recommendations Encounter for routine gyneco logical examination with Papanicolaou smear of cervix 12/16/2023 Assessment & Plan (12/16/2023 9:09 PM FIRE PROTECTION INSPECTOR): Encouraged healthy lifestyle, good nutrition and exercise. [...] a home sleep test since she has [employer] insurance. She will follow-up with me in 3 months. BMI 28.0-28.9,adult 10/29/2022 Assessment & Plan (12/16/2023 9:09 PM FIRE PROTECTION INSPECTOR): Weight/BMI is in healthy range. Continue healthy lifestyle to maintain. Assessment & Plan (10/29/2022 3:03 PM FIRE PROTECTION INSPECTOR): Weight/BMI is in healthy range. Continue healthy lifestyle to maintain. Swelling of joint, knee, right 03/12/2022 Synovial cyst of right popliteal space 05/26/202 2 Effusion of right knee 03/12/2022 Mixed hyperlipidemia 09/23/2021 Assessment & Plan (10/30/2022 5:03 PM FIRE PROTECTION INSPECTOR): Encouraged patient to follow low fat/low chol diet like the Mediterranean diet. Increase good fats in the diet. Increase exercise. Monitor labs as needed. Continue pravastatin Assessment & Plan (11/09/2021 6:33 PM FIRE PROTECTION INSPECTOR): Encouraged patient to follow fat/low chol diet like the Mediterranean diet. Increase good fats in the diet. Increase exercise. Monitor labs as needed. Continue pravastatin COVID-19 08/08/2020 Overview (08/08/2020): Positive on 08/08/2020 Fever 08/07/2020 Assessment & Plan (08/07/2020 10:23 AM CDT): Sxs can be consistent with COVID or Flu or other viral syndrome. Recommend testing. Refer to [facility]. Call immediately for increased sxs/distress [...] water often. If needed, use a hand sports instructor that contains at least 60% alcohol. ?? Clean and disinfect frequently touched surfaces such as tables, doorknobs, countertops, etc daily. ?? Avoid touching your eyes, nose, and mouth when possible. Submucosal lesion of stomach 04/24/2020 Overview (04/24/2020): Added automatically from request for surgery [id number] Annual physical exam 03/31/2020 Assessment & Plan (10/30/2022 5:02 PM FIRE PROTECTION INSPECTOR): Encouraged healthy lifestyle, good nutrition and exercise. Encouraged Calcium and Vitamin D and weight bearing exercise for bone health. Reviewed immunizations Reviewed age appropirate screenings. Assessment & Plan (11/09/2021 6:32 PM FIRE PROTECTION INSPECTOR): Encouraged healthy lifestyle, good nutrition and exercise. Encouraged Calcium and Vitamin D and weight bearing exercise for bone health. Reviewed immunizations Reviewed age appropirate screenings. Assessment & Plan (10/06/2020 9:42 PM FIRE PROTECTION INSPECTOR): Encouraged healthy lifestyle, good nutrition and exercise. [...] 03/31/2020 Assessment & Plan (12/16/2023 9:09 PM FIRE PROTECTION INSPECTOR): Mammogram order provided Assessment & Plan (10/30/2022 5:02 PM FIRE PROTECTION INSPECTOR): Mammogram order provided Assessment & Plan (11/09/2021 6:32 PM FIRE PROTECTION INSPECTOR): Has mammogram order. Encouraged to schedule. Assessment & Plan (03/31/2020 9:50 PM CDT): Mammogram order provided Gastroesophageal reflux disease without esophagi tis 03/31/2020 Assessment & Plan (03/31/2020 9:48 PM CDT): Continue PPI Erosive osteoarthritis 03/31/2020 Assessment & Plan (03/31/2020 9:49 PM CDT): Continue Plaquenil per Rheumatology Moderate episode of recurrent major depressive d isorder 03/31/2020 Assessment & Plan (10/30/2022 5:02 PM FIRE PROTECTION INSPECTOR): Stable with Wellbutrin 150. She discontinue Lexapro was feeling good. Will continue monitor closely. Prescription sent to pharmacy Assessment & Plan (11/09/2021 6:33 PM FIRE PROTECTION INSPECTOR): Stable with Lexapro and Wellbutrin Assessment & Plan (10/06/2020 9:42 PM FIRE PROTECTION INSPECTOR): Stable with wellbutrin and lexapro Assessment & Plan (03/31/2020 9:51 PM CDT): Continue Wellbutrin and lexapro. Sxs are stable. 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 Encouraged to limit sodium intake and exercise for weight control. Continue valsartan hydrochlorothiazide Assessment & Plan (11/09/2021 6:32 PM FIRE PROTECTION INSPECTOR): Bp is stable/in acceptable range for any co-morbidities. Encouraged to limit sodium intake and exercise for weight control. Continue valsartan hydrochlorothiazide Assessment & Plan (10/06/2020 9:41 PM FIRE PROTECTION INSPECTOR): Bp is stable/in acceptable range for any [...] (06/27/2019): Added automatically from request for surgery [id number] Assessment & Plan (10/06/2020 9:41 PM FIRE PROTECTION INSPECTOR): Continue per ONC. ON current therapy Pernicious anemia 06/21/2019 Assessment & Plan (11/09/2021 6:32 PM FIRE PROTECTION INSPECTOR): Continue B12 Assessment & Plan (03/31/2020 9:49 PM CDT): Continue B12 supplement per onc Carcinoid tumor of stomach 06/08/2019 Overview (06/08/2019): Added automatically from request for surgery [id number] Malignant carcinoid tumor of stomach 01/10/2019 Assessment & Plan (10/30/2022 5:02 PM FIRE PROTECTION INSPECTOR): Continue very close observation with Dr. Martinez and Dr. Abrams. She is stop the Sandostatin at this point and is awaiting monitoring of labs and imaging to determine next step. Assessment & Plan (11/09/2021 6:32 PM FIRE PROTECTION INSPECTOR): Continue per Oncology Dr. Martinez and Gastroenterology as instructed. Still under very close observation with regular imaging in interventions. Assessment & Plan (03/31/2020 9:45 PM CDT): Continue per ONC Resolved Problems Problem Noted Date Diagnosed Date Resolved Date BMI 26.0-26.9,adult 10/01/2020 10/29/19 Assessment & Plan (11/09/2021 6:33 PM FIRE PROTECTION INSPECTOR): Weight/BMI is in healthy range. Continue healthy lifestyle to maintain. Assessment & Plan (10/01/2020 1:47 PM FIRE PROTECTION INSPECTOR): Weight/BMI is in healthy range. Continue healthy lifestyle to maintain. Incisional hernia, without o bstruction or gangrene 04/05/2020 06/20/2020 Overview (04/05/2020): Added automatically from request for surgery [id number] BMI 27.0-27.9,adult 03/25/2020 10/01/20 Assessment & Plan (03/25/2020 2:26 PM CDT): Weight/BMI is in healthy range. Continue healthy lifestyle to maintain. Dyslipidemia 02/13/2020 09/23/2021 Assessment & Plan (10/06/2020 9:41 PM FIRE PROTECTION INSPECTOR): Encouraged patient to follow fat/low chol diet like the Mediterranean diet. Increase good fats in the diet. Increase exercise. Monitor labs as needed. Continue statin Assessment & Plan (03/31/2020 9:49 PM CDT): Encouraged patient to continue low fat/low chol diet. Continue exercise. Increase good fats in the diet. Monitor labs as needed. Continue statin Malignant carcinoid tumor of stomach 01/22/2019 01/22/2019 Encounters Date Type Department Care Team Description 4 Orders Only [facility] Cardiology [address] [place] [address] Lani Coats NP LBBB (left bundle branch block) 4 8:30 AM FIRE PROTECTION INSPECTOR Office Visit [facility] Cardiology [address] [place] [address] [address] [place] [address] Lani Coats NP LBBB (left bundle branch block) (Primary Dx); HTN (hypertension), benign; Dyslipidemia; Family history of premature coronary artery disease 4 Telephone [facility] [address] [place] [address] [address] [place] [phone] Lani Coats NP 4 Orders Only [facility] Family Medicine [address] [place] [phone] ProviderPedro MD 4 10:11 AM CDT Anesthesia Event [facility] [address] [place] [phone] Nino Granado MD 4 10:00 AM CDT - 4 10:30 AM CDT Surgery [facility] [address] [place] [phone] Adarsh Tuttle MD ESOPHAGOGASTRODUODENOSCOPY ULTRASOUND EXAM LIMITED 4 8:37 AM CDT - 4 11:55 AM CDT Hospital Encounter [facility] [address] [place] [phone] Adarsh Tuttle MD Malignant carcinoid tumor of the stomach (HCC) Discharge Disposition: Discharge to home or self care 4 Telephone [facility] Gastroenterology [address] [place] [address] Breanne Torres LPN GI Preprocedure 4 9:30 AM CDT Ancillary Procedure [facility] Orthopaedic Surgery [address] [place] [address] Acute pain of right knee 4 9:30 AM CDT Procedure visit [facility] Orthopaedic Surgery [address] [place] [address] [address] [place] [address] Daryn Calderon MD Acute pain of right knee (Primary Dx); Synovial cyst of right popliteal space 4 Orders Only [facility] Orthopaedic Surgery [address] [place] [address] Daryn Calderon MD Synovial cyst of right popliteal space (Primary Dx); Swelling of joint, knee, right; Chronic pain of right knee from Last 3 Months Immunizations Name Administration Dates Next Due Influenza, Quadrivalent, Rec ombinant, Egg Free, Preservative Free, Intramuscular 07/30/2021 Influenza, Unspecified 07/18/2022,2019,08/06/2019,07/18 Pfizer Sars-Cov-2 Bivalent V accination (12+ YRS) 07/03/2022 Surgical History Surgery Date Site/Laterality Comments SECTION 1989,1992 twice TUBAL LIGATION 02/15/2005 - 03/17/2005 COLONOSCOPY 11/18/2018 - 12/15/2018 ESOPHAGOGASTRODUODENOSCOPY 10/18/2018 - 10/17/2019 x4 ENDOMETRIAL ABLATION 09/17/2005 - 10/17/2005 STOMACH SURGERY GASTRECTOMY 08/23/2019 partial UPPER GASTROINTESTINAL ENDOSCOPY HERNIA REPAIR ABDOMINAL SURGERY 08-23-2019 Medical History Medical History Date Comments Rheumatoid arthritis (HCC) Hypertension Hyperlipidemia Depression Anemia Carcinoid tumor of stomach Heart murmur Left bundle branch block Colon polyp Urinary tract infection years ag o Cancer (CMS/HCC) (HCC) carcinode tumors Autoimmune disease (CMS/HCC) (HCC) Family History Medical History Relation Name Comments Heart attack Brother Guru Reveles Congestive Heart Failure Father Emphysema Father Heart failure Father Cancer Maternal Grandmother Anitra Ramesh Coronary artery disease Mother s/p CABG Dementia Mother Colon cancer Mother's Brother Ovarian cancer Mother's Sister No Known Problems Sister Anesthesia problems Neg Hx Relation Name Status Comments Brother Guru Reveles Father (Age 80) Father's Brother Father's Sister Maternal Grandmother Anitra Ramesh Mother (Age 82) Mother's Brother Mother's Sister Sister Alive Social History Tobacco Use Types Packs/Day Years [...] on file 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:22 AM FIRE PROTECTION INSPECTOR Gender Identity Female 06/07/2020 8:39 AM CDT Sexual Orientation Not on file 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 Not on file Not on file Not on file Obstetrics History Last Filed Vital Signs Vital Sign Reading Time Taken Comments Blood Pressure 106/62 10/02/2024 8:28 AM FIRE PROTECTION INSPECTOR Pulse 60 10/02/2024 8:28 AM FIRE PROTECTION INSPECTOR Temperature 36.6 ??C (97.9 ??F) 08/07/2024 9:33 AM CD T Respiratory Rate 15 08/07/2024 10:55 AM CDT Oxygen Saturation 96% 10/02/2024 8:28 AM FIRE PROTECTION INSPECTOR Inhaled Oxygen Concentration - - Weight 64.4 kg (142 lb) 10/02/2024 8:28 AM FIRE PROTECTION INSPECTOR Height 162.6 cm (5' 4 ) 10/02/2024 8:28 AM FIRE PROTECTION INSPECTOR Body Mass Index 24.37 10/02/2024 8:28 AM FIRE PROTECTION INSPECTOR Plan of Treatment Health Maintenance Due Date Last Done Comments Hepatitis C Screening 1965 Pneumococcal vaccine <65 (1 of 2 - PCV) 1972 DTaP/Tdap/Td Vaccine (1 - Tdap) 1977 Hepatitis B Screening 1984 Zoster Vaccine (1 of 2) 1985 Covid-19 Vaccine (5 - 2023-2 5 season) 2024 07/03/2022, 08/22/2021, 12/17/2020, Additional history exists Influenza Vaccine (#1) 2024 , 07/18/2022, 07/30/2021, Additional history exists Cervical Cancer Screening 11/29/2024 11/29/2023 Depression Screening 11/29/2024 11/29/2023, 11/29/2023, 10/28/2021, Additional history exists Regular Well Visit/Exam 18-64 11/29/2024, 10/29/2022, 10/28/2021, Additional history exists Breast Cancer Screening-Mammogram 08/18/2025 08/18/2024, 03/29/2023, 11/26/2021, Additional history exists Colon Cancer Screening-Colonoscopy 12/09/2025 12/09/2020, 11/28/2018 Colon Cancer Screening-CT Colonography Discontinued 12/09/2020, 11/28/2018 Colon Cancer Screening-DNA Stool Discontinued 12/09/19 21, 11/28/2018 Colon Cancer Screening-FIT Discontinued 12/09/2020, Colon Cancer Screening-Sigmoidoscopy Discontinued 12/09/2020, 11/28/2018 Medical Devices Implanted Type Area Refinisher Device Identifier Shelf Expiration Date Model / Serial / Lot [employer]/C R Bard [id number] Monofilament Soft Lightweight Low Profile Square - [id number] Implanted:Qty: 1 on 05/13/2020 by Marina Rosales MD at [facility] Mesh N/A: Abdomen [employer] Bard [id number] 11/14/2024 [id number] / / [id number] Procedures Procedure Name Priority Date/Time Associated Diagnosis Comments ECG 12-LEAD Routine 10/02/2024 LBBB (left bundle branch block) HM MAMMOGRAPHY Routine 08/18/2024 1:49 PM CDT US ENDOSCOPIC IP Routine 08/07/2024 10:34 AM CDT Malignant carcinoid tumor of the stomach (HCC) ESOPHAGOGASTRODUODENOSCOPY ULTRASOUND EXAM LIMITED 08/07/2024 10:11 AM CDT Malignant carcinoid tumor of the stomach (HCC) UPPER EUS 08/07/2024 10:07 AM CDT KS ARTHROCENTESIS ASPIR&/INJ MAJOR JT/BURSA W/US Routine 07/11/2024 9:30 AM CDT Synovial cyst of right popliteal space POCUS ASP/INJ MAJOR JOINT Schedule Routine, Read Routine (OP Routine) 07/11/2024 9:29 AM CDT Acute pain of right knee PAP AND HPV, REFLEX TO HPV GENOTYPES Routine 11/29/2023 5:15 PM FIRE PROTECTION INSPECTOR Cervical cancer screening HM COLONOSCOPY Routine 12/09/2020 from Last 3 Months or Most Recently Relevant to Health Maintenance Results * ECG 12 lead (10/02/2024) 10/02/2024 Lani Coats NP ECG ORDERABLES Edited Re sult - Final * MAMMOGRAPHY (08/18/2024 1:49 PM CDT) Mammography Normal Historical Provider HEALTH MAINTENANCE Edited Result - Final * Upper EUS (08/07/2024 10:07 AM CDT) Anatomical Region Laterality Modality Other Narrative Procedure Note Adarsh Tuttle MD - 08/07/2024 10:07 AM CDT ENDOSCOPY LAB Patient Name: Fabiola Gibson Procedure Date: 08/07/2024 10:07AM Admit Type: Outpatient Room: [facility] 4 Date of : 1965 Instrument Name: [id number] Gender: Female Note Status: Finalized Procedure: Upper [...] the mouth, and advanced tothe jejunum The [id number] was introduced through the mouth, and advanced [...] Tuttle MD ENDOSCOPY PROCEDURES Final Re sult * KS ARTHROCENTESIS ASPIR&/INJ MAJOR JT/BURSA W/US (07/11/2024 9:30 [...] us Daryn Calderon MD IN CLINIC/BEDSIDE ORDERA BLEThelma Edited Result - Final * POCUS ASP/INJ MAJOR JOINT (07/11/2024 9:29 AM CDT) Narrative RAD_PACS_POCUS_[facility] - 07/11/2024 9:29 AM CDT This procedure was performed and interpreted by the provider. Please refer to the provider's procedure/OR operative note for results. us Daryn Calderon MD POCUS ORDERABLES Final R esult [facility]PACS[facility] * (ABNORMAL) Pap and HPV, reflex to HPV Genotypes (11/29/2023 5:15 PM FIRE PROTECTION INSPECTOR) CLINICAL INFORMATION: [facility] Comment:CERVICAL CANCER SCRE ENING LMP [facility] Comment:MENOPAUSE Previous Pap [facility] Comment:NONE GIVEN Prev. Bx [facility] Comment:NONE GIVEN SOURCE: [facility] Comment:Cervix, Endocervix Pap, specimen adequacy [facility] Comment: Satisfactory for evaluation. Endocervical/transformation zone component present. HPV interp [facility] Comment: Cytology Results: Negative for intraepithelial lesion or malignancy. COMMENTS [facility] Comment: This Pap test has been evaluated with computer assisted technology. Office Mail Clerk Que [facility] Comment: KMS, CT(ASCP) CT Screening location: [place] [address] [place] [address] Review research food technologist [facility] Comment: DE LA ROSA, CT(ASCP) CT Screening location: [facility] Administration [address]UELA Lopes [address] Comment [facility] Comment: EXPLANATORY NOTE: The Pap is a screening test for cervical cancer. It is not a diagnostic test and is subject to false negative and false positive results. It is most reliable when a satisfactory sample, regularly obtained, is submitted with relevant clinical findings and history, and when the Pap result is evaluated along with historic and current clinical information. Human papillomavirus DNA, High Risk E6/E7 Detected (A) NOT DETECTED Swish/ [place] Chatman vladimir ROSSI Comment: Detected One or more High Risk HPV types (16,18,31,33, 35,39,45,51,52,56,58,59,66,68) was detected. Methodology: Real Time PCR ? Thin prep 11/29/2023 5:15 PM FIRE PROTECTION INSPECTOR 12/01/2023 11:09 AM FIRE PROTECTION INSPECTOR us Elizabeth [facility] CYTOLOGY ORDERABLES nal Result [facility] [address] [place] [address] Rashmi Morgan/[place] [address] [facility] [place] [address] * HM COLONOSCOPY (12/09/2020) Guru Winters DO HEALTH MAINTENANCE Final Resul t from Last 3 Months or Most Recently Relevant to Health Maintenance Insurance [facility] EM[employer]EE HEALTH PLANS Address: [address] [place] [address] [facility] H[facility]/PPO Address: [address] [address] [place] [address] [facility] H[facility]/PPO Address: [address] [address] Advance Directives For more information, please contact: [phone] * Full Code (Latest Code Status on File) Date Activated Date Inactivated Comments 08/07/2024 9:27 AM 08/07/2024 3:55 PM * Full Code Date Activated Date Inactivated Comments 04/27/2022 8:12 AM 04/27/2022 2:56 PM * Full Code Date Activated Date Inactivated Comments 04/07/2021 11:06 AM 04/07/2021 5:16 PM * Full Code Date Activated Date Inactivated Comments 05/13/2020 12:23 PM 05/15/2020 2:18 PM * Full Code Date Activated Date Inactivated Comments 04/29/2020 1:45 PM 04/29/2020 8:02 PM Care Teams Parts Finisher Relationship Specialty Start Date End Date Elizabeth Borrego PA [address] [facility] [address] [place] [address] PCP - General Internal Medicine 09/28/23 Luann Lawrence NP Nurse Practitioner Nurse Practitioner 01/06/19 Adarsh Tuttle MD [address] [place] [address] Consulting Physician Gastroenterology 02/22/19 Sebastien Martinez DO [address] [place] [id number] Medical Oncologist/Therapy Site Coordinator Hematology and Oncology 02/22/19 Guru Winters DO [address] [place] [address] Consulting Physician Gastroenterology 02/22/19 Gato Abrams MD [address] [place] [id number] Surgeon Surgical Oncology 09/07/19 Marina Rosales MD [address] [place] [address] [id number] Consulting Physician General Surgery 03/24/21
--- OUTSIDE RECORDS SUMMARY | 2024-10-04 02:56 | XMS_ITS | Referral Summary ---
Author Organization [facility] Address [address] [place] [address] Care Team Providers Care Can Filling And Closing Machine Tender Name Role Phone Luann Lawrence NP Unavailable [phone] Adarsh Tuttle MD Unavailable [phone] Sebastien Martinez DO Unavailable [phone] Guru Winters DO Unavailable [phone] Gato Abrams MD Unavailable [phone] Marina Rosales MD Unavailable [phone] Elizabeth Borrego Primary Care Provider [phone] Encounters Date Type Department Care Team Description 4 Orders Only [facility] Medical [facility] Cardiology [address] [place] [phone] Lani Coats NP LBBB (left bundle branch block) 4 8:30 AM PROJECTOR OPERATOR Office Visit [facility] Medical [facility] Cardiology [address] [place] [address] Lani Coats NP LBBB (left bundle branch block) (Primary Dx); HTN (hypertension), benign; Dyslipidemia; Family history of premature coronary artery disease 4 Telephone [facility] Cardiology [address] [place] [address] Lani Coats NP 4 Orders Only [facility] Family Medicine [address] [facility] [address] [place] [address] ProviderPedro MD 4 10:00 AM CDT - 4 10:30 AM CDT Surgery [facility] GI Center [facility] [place] [phone] Adarsh Tuttle MD ESOPHAGOGASTRODUODENOSCOPY ULTRASOUND EXAM LIMITED 4 10:11 AM CDT Anesthesia Event [facility] GI Center [address] [place] [phone] Nino Granado MD 4 8:37 AM CDT - 4 11:55 AM CDT Hospital Encounter [facility] GI Center [address] [place] [phone] Adarsh Tuttle MD Malignant carcinoid tumor of the stomach (HCC) Discharge Disposition: Discharge to home or self care 4 Telephone [facility] Gastroenterology [address] [facility] Medical Office Building [address], [address] [place] [address] Breanne Torres LPN GI Preprocedure 4 9:30 AM CDT Ancillary Procedure [facility] Orthopaedic Surgery [address] [place] [address] [address] [place] [phone] Acute pain of right knee 4 9:30 AM CDT Procedure visit [facility] Orthopaedic Surgery [address] [place] [address] 1st [address] [place] [phone] Daryn Calderon MD Acute pain of right knee (Primary Dx); Synovial cyst of right popliteal space 4 Orders Only [facility] Orthopaedic Surgery [address] [place] [address] 1st [address] [place] [phone] Daryn Calderon MD Synovial cyst of right popliteal space (Primary Dx); Swelling of joint, knee, right; Chronic pain of right knee from Last 3 Months Allergies No known active allergies Medications cholecalcifero l (VITAMIN D-3) 1,000 unit capsuleIndicat ions:Vitamin D Deficiency Take 2 capsules (2,000 Units total) by mouth ceo ziff davis before breakfast Active pravastatin (PRAVACHOL) 40 mg [...] 200 mg tabletIndicati ons:Seronegati ve rheumatoid arthritis ([facility]) ([facility]) TAKE 1 TABLET BY MOUTH DAILY 90 tablet 09/25/20 24 Active hydroxychloroq uine (PLAQUENIL) 200 mg tabletIndicati ons:Rheumatoid Arthritis Take 1 tablet (200 mg total) by mouth every other day Take 400mg (2 tablets) on even days and 200mg (1 tablet) on odd days 45 tablet 1 04/21/20 24 024 Discontinued Active Problems Problem Noted Date Diagnosed Date Seronegative rheumatoid arthritis ([facility]) 03/19 Cervical cancer screening 12/16/2023 Assessment & Plan (12/16/2023 9:09 PM PROJECTOR OPERATOR): Pap smear obtained. Reviewed screening protocol per most recent recommendations Encounter for routine gyneco logical examination with Papanicolaou smear of cervix 12/16/2023 Assessment & Plan (12/16/2023 9:09 PM PROJECTOR OPERATOR): Encouraged healthy lifestyle, good nutrition and [...] a home sleep test since she has [employer] insurance. She will follow-up with me in 3 months. BMI 28.0-28.9,adult 10/29/2022 Assessment & Plan (12/16/2023 9:09 PM PROJECTOR OPERATOR): Weight/BMI is in healthy range. Continue healthy lifestyle to maintain. Assessment & Plan (10/29/2022 3:03 PM PROJECTOR OPERATOR): Weight/BMI is in healthy range. Continue healthy lifestyle to maintain. Swelling of joint, knee, right 03/12/2022 Synovial cyst of right popliteal space 2 Effusion of right knee 03/12/2022 Mixed hyperlipidemia 09/23/2021 Assessment & Plan (10/30/2022 5:03 PM PROJECTOR OPERATOR): Encouraged patient to follow low fat/low chol diet like the Mediterranean diet. Increase good fats in the diet. Increase exercise. Monitor labs as needed. Continue pravastatin Assessment & Plan (11/09/2021 6:33 PM PROJECTOR OPERATOR): Encouraged patient to follow fat/low chol diet like the Mediterranean diet. Increase good fats in the diet. Increase exercise. Monitor labs as needed. Continue pravastatin COVID-19 08/08/2020 Overview (08/08/2020): Positive on 08/08/2020 Fever 08/07/2020 Assessment & Plan (08/07/2020 10:23 AM CDT): Sxs can be consistent with COVID or Flu or other viral syndrome. Recommend testing. Refer to [facility] site. Call immediately for increased sxs/distress [...] water often. If needed, use a hand market master that contains at least 60% alcohol. ?? Clean and disinfect frequently touched surfaces such as tables, doorknobs, countertops, etc daily. ?? Avoid touching your eyes, nose, and mouth when possible. Submucosal lesion of stomach 04/24/2020 Overview (04/24/2020): Added automatically from request for surgery [id number] Annual physical exam 03/31/2020 Assessment & Plan (10/30/2022 5:02 PM PROJECTOR OPERATOR): Encouraged healthy lifestyle, good nutrition and exercise. Encouraged Calcium and Vitamin D and weight bearing exercise for bone health. Reviewed immunizations Reviewed age appropirate screenings. Assessment & Plan (11/09/2021 6:32 PM PROJECTOR OPERATOR): Encouraged healthy lifestyle, good nutrition and exercise. Encouraged Calcium and Vitamin D and weight bearing exercise for bone health. Reviewed immunizations Reviewed age appropirate screenings. Assessment & Plan (10/06/2020 9:42 PM PROJECTOR OPERATOR): Encouraged healthy lifestyle, good nutrition and [...] 03/31/2020 Assessment & Plan (12/16/2023 9:09 PM PROJECTOR OPERATOR): Mammogram order provided Assessment & Plan (10/30/2022 5:02 PM PROJECTOR OPERATOR): Mammogram order provided Assessment & Plan (11/09/2021 6:32 PM PROJECTOR OPERATOR): Has mammogram order. Encouraged to schedule. Assessment & Plan (03/31/2020 9:50 PM CDT): Mammogram order provided Gastroesophageal reflux disease without esophagi tis 03/31/2020 Assessment & Plan (03/31/2020 9:48 PM CDT): Continue PPI Erosive osteoarthritis 03/31/2020 Assessment & Plan (03/31/2020 9:49 PM CDT): Continue Plaquenil per Rheumatology Moderate episode of recurrent major depressive d isorder 03/31/2020 Assessment & Plan (10/30/2022 5:02 PM PROJECTOR OPERATOR): Stable with Wellbutrin 150. She discontinue Lexapro was feeling good. Will continue monitor closely. Prescription sent to pharmacy Assessment & Plan (11/09/2021 6:33 PM PROJECTOR OPERATOR): Stable with Lexapro and Wellbutrin Assessment & Plan (10/06/2020 9:42 PM PROJECTOR OPERATOR): Stable with wellbutrin and lexapro Assessment & Plan (03/31/2020 9:51 PM CDT): Continue Wellbutrin and lexapro. Sxs are stable. 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 Encouraged to limit sodium intake and exercise for weight control. Continue valsartan hydrochlorothiazide Assessment & Plan (11/09/2021 6:32 PM PROJECTOR OPERATOR): Bp is stable/in acceptable range for any co-morbidities. Encouraged to limit sodium intake and exercise for weight control. Continue valsartan hydrochlorothiazide Assessment & Plan (10/06/2020 9:41 PM PROJECTOR OPERATOR): Bp is stable/in acceptable range for [...] (06/27/2019): Added automatically from request for surgery [id number] Assessment & Plan (10/06/2020 9:41 PM PROJECTOR OPERATOR): Continue per ONC. ON current therapy Pernicious anemia 06/21/2019 Assessment & Plan (11/09/2021 6:32 PM PROJECTOR OPERATOR): Continue B12 Assessment & Plan (03/31/2020 9:49 PM CDT): Continue B12 supplement per onc Carcinoid tumor of stomach 06/08/2019 Overview (06/08/2019): Added automatically from request for surgery [id number] Malignant carcinoid tumor of stomach 01/10/2019 Assessment & Plan (10/30/2022 5:02 PM PROJECTOR OPERATOR): Continue very close observation with Dr. Martinez and Dr. Abrams. She is stop the Sandostatin at this point and is awaiting monitoring of labs and imaging to determine next step. Assessment & Plan (11/09/2021 6:32 PM PROJECTOR OPERATOR): Continue per Oncology Dr. Martinez and Gastroenterology as instructed. Still under very close observation with regular imaging in interventions. Assessment & Plan (03/31/2020 9:45 PM CDT): Continue per ONC Resolved Problems Problem Noted Date Diagnosed Date Resolved Date BMI 26.0-26.9,adult 10/01/2020 10/29/19 Assessment & Plan (11/09/2021 6:33 PM PROJECTOR OPERATOR): Weight/BMI is in healthy range. Continue healthy lifestyle to maintain. Assessment & Plan (10/01/2020 1:47 PM PROJECTOR OPERATOR): Weight/BMI is in healthy range. Continue healthy lifestyle to maintain. Incisional hernia, without o bstruction or gangrene 04/05/2020 06/20/2020 Overview (04/05/2020): Added automatically from request for surgery [id number] BMI 27.0-27.9,adult 03/25/2020 10/01/20 Assessment & Plan (03/25/2020 2:26 PM CDT): Weight/BMI is in healthy range. Continue healthy lifestyle to maintain. Dyslipidemia 02/13/2020 09/23/2021 Assessment & Plan (10/06/2020 9:41 PM PROJECTOR OPERATOR): Encouraged patient to follow fat/low chol diet like the Mediterranean diet. Increase good fats in the diet. Increase exercise. Monitor labs as needed. Continue statin Assessment & Plan (03/31/2020 9:49 PM CDT): Encouraged patient to continue low fat/low chol diet. Continue exercise. Increase good fats in the diet. Monitor labs as needed. 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 Not on file Not on file Last Filed Vital Signs Vital Sign Reading Time Taken Comments Blood Pressure 106/62 10/02/2024 8:28 AM PROJECTOR OPERATOR Pulse 60 10/02/2024 8:28 AM PROJECTOR OPERATOR Temperature 36.6 ??C (97.9 ??F) 08/07/2024 9:33 AM CD T Respiratory Rate 15 08/07/2024 10:55 AM CDT Oxygen Saturation 96% 10/02/2024 8:28 AM PROJECTOR OPERATOR Inhaled Oxygen Concentration - - Weight 64.4 kg (142 lb) 10/02/2024 8:28 AM PROJECTOR OPERATOR Height 162.6 cm (5' 4 ) 10/02/2024 8:28 AM PROJECTOR OPERATOR Body Mass Index 24.37 10/02/2024 8:28 AM PROJECTOR OPERATOR Plan of Treatment Not on file Medical Devices Implanted Type Area Ballistic Expert Device Identifier Shelf Expiration Date Model / Serial / Lot [employer]/C R Bard [id number] Monofilament Soft Lightweight Low Profile Square - [id number] Implanted:Qty: 1 on 05/13/2020 by Marina Rosales MD at [facility] Mesh N/A: Abdomen [employer]/C R Bard [id number] 11/14/2024 [id number] / / [id number] Procedures Procedure Name Priority Date/Time Associated Diagnosis Comments ECG 12-LEAD Routine 10/02/2024 LBBB (left bundle branch block) HM MAMMOGRAPHY Routine 08/18/2024 1:49 PM CDT US ENDOSCOPIC IP Routine 08/07/2024 10:34 AM CDT Malignant carcinoid tumor of the stomach (HCC) ESOPHAGOGASTRODUODENOSCOPY ULTRASOUND EXAM LIMITED 08/07/2024 10:11 AM CDT Malignant carcinoid tumor of the stomach (HCC) UPPER EUS 08/07/2024 10:07 AM CDT VA ARTHROCENTESIS ASPIR&/INJ MAJOR JT/BURSA W/US Routine 07/11/2024 9:30 AM CDT Synovial cyst of right popliteal space POCUS ASP/INJ MAJOR JOINT Schedule Routine, Read Routine (OP Routine) 07/11/2024 9:29 AM CDT Acute pain of right knee PAP AND HPV, REFLEX TO HPV GENOTYPES Routine 11/29/2023 5:15 PM PROJECTOR OPERATOR Cervical cancer screening HM COLONOSCOPY Routine 12/09/2020 [...] Date: 08/07/2024 10:07AM Admit Type: Outpatient Room: [facility] 4 Date of : 1965 Instrument Name: [id number] Gender: Female Note Status: Finalized Procedure: Upper [...] the mouth, and advanced tothe jejunum The [id number] was introduced through the mouth, and advanced [...] MD ENDOSCOPY PROCEDURES Final Re sult * VA ARTHROCENTESIS ASPIR&/INJ MAJOR JT/BURSA W/US (07/11/2024 9:30 [...] reflex to HPV Genotypes (11/29/2023 5:15 PM PROJECTOR OPERATOR) CLINICAL INFORMATION: [facility] Comment:CERVICAL CANCER SCRE ENING LMP [facility] Comment:MENOPAUSE Previous Pap [facility] Comment:NONE GIVEN Prev. Bx [facility] Comment:NONE GIVEN SOURCE: [facility] Comment:Cervix, Endocervix Pap, specimen adequacy [facility] Comment: Satisfactory for evaluation. Endocervical/transformation zone component present. HPV interp [facility] Comment: Cytology Results: Negative for intraepithelial lesion or malignancy. COMMENTS [facility] Comment: This Pap test has been evaluated with computer assisted technology. Rehab Liaison [facility] Comment: KMS, CT(ASCP) CT Screening location: [place] [address] [place] [address] Review supportability engineer [facility] Comment: DE [place] CT(ASCP) CT Screening location: [address] [place] [address] Comment [facility] Comment: EXPLANATORY NOTE: The Pap is [...] High Risk E6/E7 Detected (A) NOT DETECTED [facility] Comment: Detected One or more High Risk HPV types (16,18,31,33, 35,39,45,51,52,56,58,59,66,68) was detected. Methodology: Real Time PCR ? Thin prep 11/29/2023 5:15 PM PROJECTOR OPERATOR 12/01/2023 11:09 AM PROJECTOR OPERATOR Elizabeth [facility] CYTOLOGY ORDERABLES nal Result [facility] [address] [place] [address] [facility] [address] [place] * HM COLONOSCOPY (12/09/2020) us Guru Winters DO HEALTH MAINTENANCE Final Resul t from Last 3 Months or Most Recently Relevant to Health Maintenance Insurance [employer] [facility] EMPLOYEE HEALTH PLANS Address: [facility] [address] [place] [address] [facility] Advance Directives For more information, please contact: [phone] * Full Code (Latest Code Status on [...] 1:45 PM 04/29/2020 8:02 PM Care Teams Can Filling And Closing Machine Tender Relationship Specialty Start Date End Date Elizabeth Borrego PA [address] [facility] [address] [place], [place] [id number] PCP - General Internal Medicine 09/28/23 Luann Lawrence, PROGRAMS MANAGER Nurse Practitioner Nurse Practitioner 01/06/19 Adarsh Tuttle MD [address] [facility] [address] [place] [address] Consulting Physician Gastroenterology 02/22/19 Sebastien Martinez DO [address] [address] Medical Oncologist/Senior Director Marketing Hematology and Oncology 02/22/19 Guru Winters DO [address] [place] [address] Consulting Physician Gastroenterology 02/22/19 Gato Abrams MD [address] [address] Surgeon Surgical Oncology 09/07/19 Marina Rosales MD [address] [address] Consulting Physician General Surgery 03/24/21
--- OUTSIDE RECORDS SUMMARY | 2024-10-04 02:57 | XMS_ITS | Encounter Summary ---
Author Organization [facility] Address [address] [place] [address] Phone Care Team Providers Care Division Service Manager Name Role Phone Luann Lawrence ANUP Unavailable [phone] Adarsh Tuttle MD Unavailable [phone] Sebastien Martinez DO Unavailable [phone] Guru Winters DO Unavailable [phone] Gato Abrams MD Unavailable [phone] Elizabeth Borrego Primary Care Provider [phone] Marina Rosales MD Unavailable [phone] Reason for Visit * Reason Comments Pain * Procedure (Routine) - Closed Specialty Diagnoses / Procedures Referred By Contac t Referred To Contact Diagnoses Swelling of joint, knee, right Procedures Joint Aspiration Saumya Stoner MD Phone: tel: fax: [facility] (All Locations) Referral ID Status Reason Start Date Expiration Date Visits Re quested Visits Authorized [id number] Closed 04/30/2023 05/29/2024 1 1 Encounter Details Date Type Department Care Team (Latest Contact Info) Description 06/09/2023 3:40 PM CDT Procedure visit [facility] Orthopaedic Surgery [address] [facility] [facility] [address] [place] [address] Daryn Calderon MD [address] [facility] [address] [place] [address] Synovial cyst of right popliteal space (Primary Dx); Chronic pain of right knee; Swelling of joint, knee, right Social History Tobacco Use Types Packs/Day Years Used Date Smoking Tobacco: Former Cigarettes 1 2 1 997 - 1998 Smokeless Tobacco: Never Alcohol Use Standard Drinks/Week Comments Yes 2 (1 standard drink = 0.6 oz pur e alcohol) AUDIT-C Answer Date Recorded Q1: How often do you have a drink containing alc ohol? 2-3 times a week 04/26/2023 Q2: How many drinks containi ng alcohol do you have on a typical day when you are drinking? 3 or 4 04/26/2023 Q3: How often do you have si x or more drinks on one occasion? Monthly 04/26/2023 PHQ-2 Answer Date Recorded PHQ-2 Total Score (If total score is 3 or more points, staff should administer the PHQ-9) 0 10/28/2021 Personal Safety Answer Date Recorded Have you ever been in or are you currently in a harmful physical or emotional relationship or is someone making you feel afraid or unsafe? 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 A pre-scan of the Right knee was performed demonstrating a massive Duke's cyst Timeout was performed to identify correct patient and side of procedure Verbal consent was obtained after discussion of the risks (including but not limited to increase pain, infection, bleeding, steroid related side effects such as headache, immunosuppresion from steroids, irritability from steroids) benefits, and alternatives. The skin was prepped and draped in the usual sterile fashion using iodine swabs. Local anesthesia was achieved with 1% lidocaine. Needle of appropriate gauge and length for procedure (18G, 1.5 inch needle ) was directed towards the target effusion in a lateral to medial suprapatellar approach. Aspiration: 255 cc of serous fluid was aspirated After the aspiration, the following solution was injected into the decompressed cyst: 1 mL triamcinolone (40mg/mL), 1 mL lidocaine 1% Needle was removed, skin cleansed, and bandage placed over injection site. No complications. Pt reported good symptomatic improvement during anesthetic phase. PLAN: Pt was counseled re: icing and activity modification. IDaryn MD, performed the entire procedure. Daryn Calderon M.D. Managing Consultant Division of Physical Medicine and Rehabilitation Department of Orthopaedic Surgery [facility] Daryn Calderon M.D. dictating using M Modal. Fur Finisher Seamstress variances may occur. ========= Large Joint Injection w/ Ultrasound Guidance: R knee Performed by: Daryn Calderon MD Authorized by: Jason Barber IV, MD Large Joint Injection/Aspiration: Consent Given by: Patient Site marked: the procedure site was marked Timeout: prior to procedure the correct patient, procedure, and site was verified Verbal consent obtained: Yes Supporting Documentation: Indications: Pain and joint swelling Procedure Details: Location: Knee Site: R knee (Duke's cyst) Prep: patient was prepped and draped in usual sterile fashion Needle Size: 18 G Approach: Posterior Ultrasound guided: Yes Ultrasound guidance used for: Pre-procedure marking and real-time guidance Sterile ultrasond techniques: Sterile gel and sterile probe covers were used Medications: 5 mL lidocaine 10 mg/mL (1 %); 40 mg triamcinolone 40 mg/mL documented in this encounter Plan of Treatment Not on file documented as of this encounter Procedures Procedure Name Priority Date/Time Associated Diagnosis Comments NE ARTHROCENTESIS ASPIR&/INJ MAJOR JT/BURSA W/US Routine 06/09/2023 3:40 PM CDT Swelling of joint, knee, right Synovial cyst of right popliteal space documented in this encounter Visit Diagnoses Diagnosis Synovial cyst of right popliteal space- Primary Chronic pain of right knee Swelling of joint, knee, right documented in this encounter Administered Medications Inactive Administered Medications - up to 3 most recent administrations Medication Order MAR Action Action Date Dose Rate Site lidocaine (XYLOCAINE) 10 mg/mL (1 %) injection 5 mL 5 mL, One-Time Injection, Starting on Wed06/09/23 at 1540, For 1 dose, Indications: Administration of Local AnesthesiaIndications:Administ ration of Local Anesthesia Given 06/09/2023 3:40 PM CDT 5 mL Right Knee triamcinolone (KENALOG) 40 mg/mL injection 40 mg 40 mg, intra-articular, One-Time Injection, Starting on Wed06/09/23 at 1540, For 1 doseIndications:Swelling of joint, knee, right,Synovial cyst of right popliteal space Given 06/09/2023 3:40 PM CDT 40 mg Right Knee documented in this encounter Care Teams Division Service Manager Relationship Specialty Start Date End Date Elizabeth Borrego PA [address] [facility] [address] [place] [address] PCP - General Internal Medicine 03/25/20 09/27/23 Luann Lawrence NP Nurse Practitioner Nurse Practitioner 01/06/19 Adarsh Tuttle MD [address] [facility] [address] [place] [address] Consulting Physician Gastroenterology 02/22/19 Sebastien Martinez DO [facility] [address] [place] [address] Medical Oncologist/Mill Supervisor Hematology and Oncology 02/22/19 Guru Winters DO [facility] [address] [address] Consulting Physician Gastroenterology 02/22/19 Gato Abrams MD [facility] [address] [address] Surgeon Surgical Oncology 09/07/19 Marina Rosales MD [address] [facility] [address] [place], [place] [id number] Consulting Physician General Surgery 03/24/21 documented as of this encounter
--- OUTSIDE RECORDS SUMMARY | 2024-10-04 02:57 | XMS_ITS | Encounter Summary ---
Author Organization [facility] Address [address] [place] [address] Phone Care Team Providers Care Solar Installation Manager Name Role Phone Luann Lawrence ANUP Unavailable Adarsh Tuttle MD Unavailable [phone] Sebastien Martinez DO Unavailable [phone] Guru Winters DO Unavailable [phone] Gato Abrams MD Unavailable [phone] Marina Rosales MD Unavailable Elizabeth Borrego Primary Care Provider [phone] Reason for Visit * Injectables (Routine) - Closed Specialty Diagnoses / Procedures Referred By Contac t Referred To Contact Diagnoses Swelling of joint, knee, right Procedures Large Joint Injection w/ Ultrasound Guidance Daryn Calderon MD [address] [place] [address] Phone: tel: fax: [facility] (All Locations) Referral ID Status Reason Start Date Expiration Date Visits Re quested Visits Authorized [id number] Closed 01/10/2024 02/08/2025 1 1 Encounter Details Date Type Department Care Team (Latest Contact Info) Description 01/12/2024 3:30 PM CDT Procedure visit 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 A pre-scan [...] a lateral to medial suprapatellar approach. Aspiration: 160 cc of serous fluid was aspirated After the aspiration, the following solution was injected into the decompressed cyst: 1 mL triamcinolone (40mg/mL), 1 mL lidocaine 1% Needle was removed, skin cleansed, and bandage placed over injection site. No complications. Pt reported good symptomatic improvement during anesthetic phase. PLAN: Pt was counseled re: icing and activity modification. The above procedure was performed by Dr. Pina, resident, under my direct supervision and guidance. I was present throughout the entirety of the procedure. Daryn Calderon M.D. Construction Trench Digger Division of Physical Medicine and Rehabilitation Department of Orthopaedic Surgery [facility] Daryn Calderon M.D. dictating using M Modal. Form Drafter variances may occur. ========= Large Joint Injection [...] Procedure Name Priority Date/Time Associated Diagnosis Comments CT ARTHROCENTESIS ASPIR&/INJ MAJOR JT/BURSA W/US Routine 01/12/2024 3:30 PM CDT Swelling of joint, knee, right documented in this encounter Results * POCUS ASP/INJ MAJOR JOINT (01/12/2024 3:40 PM CDT) Narrative [facility] - 01/12/2024 3:40 PM CDT This procedure was performed and interpreted by the provider. Please refer to the provider's procedure/OR operative note for results. us Daryn Calderon MD POCUS ORDERABLES Final R esult [facility] * CT ARTHROCENTESIS ASPIR&/INJ MAJOR JT/BURSA W/US (01/12/2024 3:30 PM CDT) Narrative Daryn Calderon MD - 01/12/2024 3:30 PM CDT Daryn Calderon MD ? 01/12/2024 ??4:12 PM Large Joint Injection w/ Ultrasound Guidance: R knee Performed by: Daryn Calderon MD Authorized by: Daryn Calderon MD ?? Large Joint Injection/Aspiration: ??Consent Given by: ??Patient ??Site marked: the procedure site was marked ?Timeout: prior to procedure the correct patient, procedure, and site was verified ?Verbal consent obtained: Yes ?? Supporting Documentation: ??Indications: ??Pain Procedure Details: ??Location: ??Knee ??Site: ??R knee (Duke's cyst) ??Prep: patient was prepped and draped in usual sterile fashion ?Needle Size: ??18 G ??Approach: ??Posterior ??Ultrasound guided: Yes ?Ultrasound guidance used for: ??Pre-procedure marking and real-time guidance ??Sterile ultrasond techniques: Sterile gel and sterile probe covers were used ?Medications: ??5 mL lidocaine 10 mg/mL (1 %); 40 mg triamcinolone 40 mg/mL ??Patient tolerance: ??Patient tolerated the procedure well with no immediate complications us Daryn Calderon MD IN CLINIC/BEDSIDE ORDERA BLES Final Result documented in this encounter Visit Diagnoses Diagnosis Synovial cyst of right popliteal space- Primary Swelling of joint, knee, right Swelling of joint, knee, right documented in this encounter Administered Medications Inactive Administered Medications - up to 3 most recent administrations Medication Order MAR Action Action Date Dose Rate Site lidocaine (XYLOCAINE) 10 mg/mL (1 %) injection 5 mL 5 mL, One-Time Injection, Starting on Wed01/12/24 at 1530, For 1 dose, Indications: Administration of Local AnesthesiaIndications:Administ ration of Local Anesthesia Given 01/12/2024 3:30 PM CDT 5 mL Right Knee triamcinolone (KENALOG) 40 mg/mL injection 40 mg 40 mg, intra-articular, One-Time Injection, Starting on Wed01/12/24 at 1530, For 1 doseIndications:Swelling of joint, knee, right Given 01/12/2024 3:30 PM CDT 40 mg Right Knee documented in this encounter Care Teams Solar Installation Manager Relationship Specialty Start Date End Date Elizabeth Borrego PA [address] [facility] [address] [place] [address] PCP - General Internal Medicine 09/28/23 Luann Lawrence NP Nurse Practitioner Nurse Practitioner 01/06/19 Adarsh Tuttle MD [address] [facility] [address] [place] [address] Consulting Physician Gastroenterology 02/22/19 Sebastien Martinez DO [address] [facility] [address] [place] [address] Medical Oncologist/Director Of Regional Sales Hematology and Oncology 02/22/19 Guru Winters DO [address] [place] [address] [phone] Consulting Physician Gastroenterology 02/22/19 Gato Abrams MD [address] [place] [address] [id number] Surgeon Surgical Oncology 09/07/19 Marina Rosales MD [address] [place] [address] [phone] Consulting Physician General Surgery 03/24/21 documented as of this encounter
--- OUTSIDE RECORDS SUMMARY | 2024-10-04 02:57 | XMS_ITS | Encounter Summary ---
Author Organization [facility] Address [address] [place] [address] Care Team Providers Care Baffle Mounter Name Role Phone Luann Lawrence NP Unavailable [phone] Adarsh Tuttle MD Unavailable [phone] Sebastien Martinez DO Unavailable [phone] Guru Winters DO Unavailable [phone] Gato Abrams MD Unavailable [phone] Elizabeth Borrego Primary Care Provider [phone] Marina Rosales MD Unavailable [phone] Reason for Referral * Diagnostic Imaging (Routine) - Closed Specialty Diagnoses / Procedures Referred By Clemencia mendez Referred To Contact Radiology Diagnoses Neuroendocrine tumor Procedures CT Abdomen Pelvis W WO Contrast Gato Abrams MD [address] [facility] [phone] [place] [address] Phone: tel: fax: [facility] [address] [place] [address] Referral ID Status Reason Start Date Expiration Date Visits Re quested Visits Authorized [id number] Closed 06/11/2022 07/11/2023 1 1 Reason for Visit * Diagnostic Imaging (Routine) - Closed Specialty Diagnoses / Procedures Referred By Contjimmy t Referred To Contact Radiology Diagnoses Neuroendocrine tumor Procedures CT Abdomen Pelvis W WO Contrast Gato Abrams MD [address] [facility] [phone] [place] [address] Phone: tel: fax: [facility] [address] [facility] [place] [address] Referral ID Status Reason Start Date Expiration Date Visits Re quested Visits Authorized [id number] Closed 06/11/2022 07/11/2023 1 1 Encounter Details Date Type Department Care Team (Latest Contact Info) Description 04/05/2023 1:06 PM CDT - 04/05/2023 11:59 PM CDT Hospital Encounter [facility] ([facility]) [address] [place] [address] [phone] Gato Abrams MD [address] [facility] [phone] [place] [address] Neuroendocrine tumor Discharge Disposition: Discharge to home or self care Social History Tobacco Use Types Packs/Day Years Used Date Smoking Tobacco: Former Cigarettes 1 2 1 997 - 1998 Smokeless Tobacco: Never Alcohol Use Standard Drinks/Week Comments Yes 2 (1 standard drink = 0.6 oz pur e alcohol) AUDIT-C Answer Date Recorded Q1: How often do you have a drink containing alcohol? 2-4 times a month 01/06/2023 Q2: How many drinks containi ng alcohol do you have on a typical day when you are drinking? Patient does not drink Q3: How often do you have si x or more drinks on one occasion? 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 Not on file Not on file documented as of this encounter Medications at Time of Discharge cholecalciferol (VITAMIN D-3) 1,000 unit capsuleIndicati ons:Vitamin D Deficiency Take 2 capsules (2,000 Units total) by mouth [facility] before breakfast buPROPion XL (WELLBUTRIN XL) 150 mg 24 hr tabletIndicatio ns:Moderate episode of recurrent major depressive disorder (HCC) Take 1 tablet (150 mg total) by mouth every morning 90 tablet 1 03/04/2023 09/24/20 23 cyanocobalamin (Vitamin B-12) 1,000 mcg/mL injection INJECT 1 ML INTRAMUSCULARLY INSTRUCTED EVERY 30 DAYS (DISCARD 28 DAYS AFTER FIRST USE) 3 mL 2 02/16/2022 05/18/20 23 escitalopram (LEXAPRO) 10 mg tabletIndicatio ns:Moderate episode of recurrent major depressive disorder (HCC) Take 1 tablet (10 mg total) by mouth daily 90 tablet 1 03/04/2023 09/30/20 23 hydroxychloroqu ine (PLAQUENIL) 200 mg tabletIndicatio ns:Arthritis Take 1 tablet (200 mg total) by mouth [facility] before breakfast 01/30/2019 09/30/20 23 multivitamin capsuleIndicati ons:Vitamin Deficiency Prevention Take 1 capsule by mouth [facility] before breakfast 04/14/20 24 octreotide (SandoSTATIN) 100 mcg/mL injection 1 mL every 8 hours 23 pravastatin (PRAVACHOL) 40 mg tabletIndicatio ns:Dyslipidemia Take 1 tablet (40 mg total) by mouth every morning 90 tablet 1 03/04/2023 09/30/20 23 syringe with needle (Syringe 3cc/25Gx1 ) 3 mL 25 gauge x 1 syringe 1 Syringe every 30 (thirty) days For use with monthly IM Vitamin B12 injections 30 each 02/18/2022 09/30/20 23 traZODone (DESYREL) 50 mg tablet Take 1 tablet (50 mg total) by mouth nightly as needed for sleep 90 tablet 1 12/11/2022 04/26/20 23 valsartan-hydro CHLOROthiazide (DIOVAN-HCT) 80-12.5 mg per tabletIndicatio ns:hypertension Take 1 tablet by mouth daily 90 tablet 1 03/04/2023 09/30/20 23 documented as of this encounter Discharge Disposition Disposition Code Departure Means Destination Discharge to home or self care documented in this encounter Plan of Treatment Not on file documented as of this encounter Procedures Procedure Name Priority Date/Time Associated Diagnosis Comments CT ABDOMEN PELVIS W WO CONTRAST Schedule Routine, Read Routine (OP Routine) 04/05/2023 2:33 PM CDT Neuroendocrine tumor documented in this encounter Results * CT Abdomen Pelvis W WO Contrast (04/05/2023 2:33 PM CDT) Anatomical Region Laterality Modality Body N/A Computed Tomogra phy 04/05/2023 2:50 PM CDT Addenda Addendum by Sy Butler MD on 04/06/2023 9:00 AM CDT Addendum: This addendum is being issued to correct a dictation error in the examination and technique section of the report. This examination was performed as a computed tomography of the abdomen and pelvis without and with intravenous contrast. ??The technique section should state computed tomographic images of the abdomen and pelvis are obtained prior to and after administration of intravenous contrast according to the pancreatitis protocol. ??75 mL Optiray 350 intravenous contrast was administered. Electronically signed by: Sy Butler M.D. Impressions 04/05/2023 2:53 PM CDT Unchanged hypervascular nodule in the pancreatic uncinate process compatible with neuroendocrine tumor. ??No evidence of metastatic disease within the abdomen or pelvis. Dictated by: Ruslan Johnston MD The radiology attending physician has personally reviewed this study, and had reviewed and/or edited this written report and agrees with it. Electronically signed by: Sy Butler M.D. Narrative 04/05/2023 2:53 PM CDT EXAMINATION: ??Computed tomography of the chest, abdomen and pelvis with intravenous contrast HISTORY: Neuroendocrine tumor. 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 TECHNIQUE: ??Transaxial computed tomographic images of the chest, abdomen and pelvis ??were obtained with intravenous contrast according to the standard protocol after the uneventful administration of 75 mL Opti-Ray 350 intravenous contrast. COMPARISON: 12/23/2022 FINDINGS: ?? 4 mm nodule in the right lower lobe and 3 mm nodule in the right middle lobe are unchanged. ??No pleural effusion. ??Heart size is normal. ??No pericardial effusion. Unchanged size of hypervascular 6 mm nodule in the pancreatic uncinate process with enhancement on arterial phase. ??The rest of the pancreas is normal. ??The gallbladder, adrenal glands, spleen are normal. ??No focal liver lesions. ??Portal vein and mesenteric vessels are patent. ??There is mild intrahepatic and extrahepatic biliary ductal dilatation which is unchanged. ?? The kidneys enhance homogeneously. ??No hydronephrosis. ??Postsurgical changes of Billroth II reconstruction with ingested material in the stomach. ??The small bowel and colon are normal in course and caliber. Appendix is normal. Uterus is anteverted. No adnexal masses. ??No abdominal or pelvic lymphadenopathy. No suspicious osseous lesions. Procedure Note Sy Butler MD - 04/05/2023 EXAMINATION: Computed tomography of the chest, abdomen and pelvis with intravenous contrast HISTORY: Neuroendocrine tumor. 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 TECHNIQUE: Transaxial computed tomographic images of the chest, abdomen and pelvis were obtained with intravenous contrast according to the standard protocol after the uneventful administration of 75 mL Opti-Ray 350 intravenous contrast. COMPARISON: 12/23/2022 FINDINGS: 4 mm nodule in the right lower lobe and 3 mm nodule in the right middle lobe are unchanged. No pleural effusion. Heart size is normal. No pericardial effusion. Unchanged size of hypervascular 6 mm nodule in the pancreatic uncinate process with enhancement on arterial phase. The rest of the pancreas is normal. The gallbladder, adrenal glands, spleen are normal. No focal liver lesions. Portal vein and mesenteric vessels are patent. There is mild intrahepatic and extrahepatic biliary ductal dilatation which is unchanged. The kidneys enhance homogeneously. No hydronephrosis. Postsurgical changes of Billroth II reconstruction with ingested material in the stomach. The small bowel and colon are normal in course and caliber. Appendix is normal. Uterus is anteverted. No adnexal masses. No abdominal or pelvic lymphadenopathy. No suspicious osseous lesions. IMPRESSION: Unchanged hypervascular nodule in the pancreatic uncinate process compatible with neuroendocrine tumor. No evidence of metastatic disease within the abdomen or pelvis. Dictated by: Ruslan Johnston MD The radiology attending physician has personally reviewed this study, and had reviewed and/or edited this written report and agrees with it. Electronically signed by: Sy Butler M.D. Gato Abrams MD IM CT PROCEDURES Edited Result - Final documented in this encounter Visit Diagnoses Diagnosis Neuroendocrine tumor Benign carcinoid tumor of unknown primary site documented in this encounter Administered Medications Inactive Administered Medications - up to 3 most recent administrations Medication Order MAR Action Action Date Dose Rate Site ioversoL (OPTIRAY 350) injection 100 mL 100 mL, intravenous, Once in imaging, contrast, Starting on 04/05/23 at 1430, For 1 dose Contrast Given 04/05/2023 2:31 PM CDT 75 mL documented in this encounter Care Teams Baffle Mounter Relationship Specialty Start Date End Date Elizabeth Borrego PA [address] [facility] [address] [place], [place] [id number] PCP - General Internal Medicine 03/25/20 09/27/23 Luann Lawrence, ANUP Nurse Practitioner Nurse Practitioner 01/06/19 Adarsh Tuttle MD [address] [facility] [address] [place] [address] Consulting Physician Gastroenterology 02/22/19 Sebastien Martinez DO [address] [place] [address] [phone] Medical Oncologist/Product Marketing Intern Hematology and Oncology 02/22/19 Guru Winters DO [address] [place] [address] [phone] Consulting Physician Gastroenterology 02/22/19 Gato Abrams MD [address] [place] [address] [id number] Surgeon Surgical Oncology 09/07/19 Marina Rosales MD [address] [place] [address] Consulting Physician General Surgery 03/24/21 documented as of this encounter
--- OUTSIDE RECORDS SUMMARY | 2024-10-04 02:57 | XMS_ITS | Encounter Summary ---
Author Organization [facility] Address [address] [place] [address] Phone Care Team Providers Care Clay Roaster Name Role Phone Luann Lawrence ANUP Unavailable [phone] Adarsh Tuttle MD Unavailable Sebastien Martinez DO Unavailable [phone] Guru Winters DO Unavailable Gato Abrams MD Unavailable [phone] Marina Rosales MD Unavailable [phone] Elizabeth Borrego Primary Care Provider [phone] Encounter Details Date Type Department Care Team (Latest Contact Info) Description 04/14/2024 9:00 AM CDT Procedure visit [facility] Rheumatology [facility] Advanced Medicine 5th [place] [address] [place] [address] Seronegative rheumatoid arthritis (CMS/HCC) (HCC) (Primary Dx) Social History Tobacco Use [...] on file 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:22 AM 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 female with chief complaint of referred for diagnostic ultrasound of the hand. HPI: 58-year-old white female with history of seronegative rheumatoid arthritis treated with hydroxychloroquine for over 10 years until July of 2023. She was evaluated by Dr. Quiñonez on 10/09 with negative inflammatory markers and negative rheumatoid factor/CCP. She had plain films performed on 10/01which were notable for erosions in the carpi bilaterally with osteoarthritis of the thumbs. She wasreferred for evaluation of inflammatory activity. She was resumed on hydroxychloroquine is taking 400 mg alternating with 200 mg and states her symptoms have dramatically improved and she is having minimal discomfort at this time. She identifies her right hand is dominant. 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 Annual physical exam Chronic fatigue Breast cancer screening by mammogram Gastroesophageal reflux disease without esophagitis Erosive osteoarthritis Moderate episode of recurrent major depressive disorder (HCC) Submucosal lesion of stomach Fever COVID-19 Mixed hyperlipidemia Swelling of joint, knee, right Synovial cyst of right popliteal space Effusion of right knee BMI 28.0-28.9,adult Snoring Cervical cancer screening Encounter for routine gynecological examination with Papanicolaou smear of cervix Seronegative rheumatoid arthritis (CMS/HCC) (HCC) Past Surgical History: Procedure Laterality Date ABDOMINAL SURGERY 08-23-2019 SECTION 1990,1992 twice COLONOSCOPY 11/2018 ENDOMETRIAL ABLATION 09/2005 ESOPHAGOGASTRODUODENOSCOPY 2019 x4 GASTRECTOMY 08/23/2019 partial HERNIA REPAIR STOMACH SURGERY TUBAL LIGATION 02/2005 UPPER GASTROINTESTINAL ENDOSCOPY Immunization History Administered Date(s) Administered Influenza, Quadrivalent, Recombinant, Egg Free, Preservative Free, Intramuscular 07/30/2021 Influenza, Unspecified 07/18/2018, 08/06/2019, 07/22/2020, 07/18/2022 Moderna SARS-CoV-2 Monovalent Vaccination (12+ YRS) 11/19/2020, 12/17/2020, 08/22/2021 Pfizer Sars-Cov-2 Bivalent Vaccination (12+ YRS) 07/03/2022 No Known Allergies Social History Tobacco Use Smoking status: Former Current packs/day: 0.00 Average packs/day: 1 pack/day for 2.0 years (2.0 ttl pk-yrs) Types: Cigarettes Start date: 1996 Quit date: 1998 Years since quittin.5 Smokeless tobacco: Never Substance and Sexual Activity Drug use: Not on file Sexual activity: Not Currently Partners: Male Alcohol Use: Alcohol Misuse (11/29/2023) AUDIT-C Frequency of Alcohol Consumption: 2-4 times a month Average Number of Drinks: 3 or 4 Frequency of Binge Drinking: Less than monthly [facility] Family History Problem Relation Age of Onset Dementia Mother Coronary artery disease Mother s/p CABG Emphysema Father Heart failure Father Other (Congestive Heart Failure) Father No Known Problems Sister Heart attack Brother Ovarian cancer Mother's Sister Colon cancer Mother's Brother Cancer Maternal Grandmother Anesthesia problems Neg Hx There were no vitals taken for this visit. Physical Exam Normal alignment of the digits. No tenderness or swelling today Diagnostic ultrasound of the right wrist Equipment: Sinus site Views obtained include all UR views of the wrists plus 2nd through 4th metacarpal phalangeal jointsdorsal longitudinal and palmar if abnormal Findings: Grade 1 and focal areas of grade 2 synovial hypertrophy were noted with grade 1 power Doppler over the radial carpal joint. Prominent cartilage interface was noted in the radial carpal joint with questionable intracartilaginous chondrocalcinosis but there was no chondrocalcinosis in the TFCC or metacarpophalangeal joints. Erosions were identified at the distal radial styloid, scaphoid bone but with no active power Doppler uptake overlying them. Metacarpophalangeal joints had no definitive synovial hypertrophy and no cortical irregularity. Findings: Synovial based arthropathy with minimal activity in the dominant hand today Assessment /Plan Problem List Items Addressed This Visit Rheumatology Problems Seronegative rheumatoid arthritis (CMS/HCC) (HCC) - Primary Relevant Orders POCUS Complete Extremity (Completed) We discussed her findings and she has outstanding relief of symptoms on hydroxychloroquine. Given her years of use, I would recommend consideration for trying a maintenance dose of 200 mg daily to see if she can maintain it. documented in this encounter Plan of Treatment Not on file documented as of this encounter Results * POCUS Complete Extremity (04/14/2024 9:11 AM CDT) Narrative [facility]PACS[facility]POCUS[facility] - 04/14/2024 9:11 AM CDT This procedure was performed and interpreted by the provider. Please refer to the provider's procedure/OR operative note for results. 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 [address] [place] [address] Consulting Physician Gastroenterology 02/22/19 Sebastien Martinez DO [address] [place] [address] [id number] Medical Oncologist/Ticker Installer Hematology and Oncology 02/22/19 Guru Winters DO [address] [place] [address] Consulting Physician Gastroenterology 02/22/19 Gato Abrams MD [address] [place] [address] Surgeon Surgical Oncology 09/07/19 Marina Rosales MD [address] [place] [address] Consulting Physician General Surgery 03/24/21 documented as of this encounter
--- OUTSIDE RECORDS SUMMARY | 2024-10-04 02:57 | XMS_ITS | Encounter Summary ---
Author Organization [facility] Address [address] [place] [address] Phone Care Team Providers Care Marketing Support Manager Name Role Phone Luann Lawrence ANUP Unavailable [phone] Adarsh Tuttle MD Unavailable [phone] Sebastien Martinez DO Unavailable [phone] Guru Winters DO Unavailable [phone] Gato Abrams MD Unavailable [phone] Marina Rosales MD Unavailable [phone] Elizabeth Borrego Primary Care Provider [phone] Encounter Details Date Type Department Care Team (Late st Contact Info) Description 04/07/2024 4:15 PM CDT Telemedicine [facility] Oncology [address] [facility] [address] [place] [phone] Sebastien Martinez DO [address] [facility] [address] [place] [id number] Malignant carcinoid tumor of stomach (HCC) (Primary Dx); Seronegative rheumatoid arthritis (CMS/HCC) (HCC); Moderate episode of recurrent major depressive disorder (HCC) Social History Tobacco Use Types Packs/Day [...] on file 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:22 AM 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 During the visit, I was located in the office at [facility] and the patient was located at home in the [facility]. The patient visit started at 4:16 p.m. and ended at 4:24 p.m.. My total encounter time on 04/07/2024 was 10 minutes which was spent in the activities documented in the note. This includes time spent prior to the visit and after the visit in direct care of the patient. This time does not include time spent in any separately reportable services. The patient: has been informed that the visit may not be secure and acknowledged the information. After being given an opportunity to ask questions about and discuss this type of visit, they verballyconsented to proceeding with the telephone/video visit and understand that this service replaces anoffice visit. A guest was not included in this video visit. Interval History: Stage I carcinoid tumor of the stomach. - negative carcinoid syndrome - R0 resection Oncological history as follows: 1. In 2019, her primary care physician, Dr. Huizar referred the patient to Dr. Winters for GI evaluation regarding anemia and to undergo routine surveillance colonoscopy. 2. Dr. Winters performed EGD and colonoscopy on December 26, 2018. He noted 3 distinct polyps within the stomach and performed polypectomy on each of these lesions. All these polyps were removed successfully. Three gastric polyps showed well-differentiated neuroendocrine tumor with 1 of them having minor invasion into the submucosa. 3. Subsequently, surgical pathology report showed that the biopsies of these polyps were consistentwith a well-differentiated neuroendocrine tumor consistent with carcinoid tumor. 4. She was then referred to Dr. Tuttle at [facility] for EUS evaluation. Thiswas performed on January 13, 2019. EUS procedure note did not identify any regional adenopathy or residual malignant tumors of the submucosa, mucosa or stomach wall. He noted 2 residual small papulesand these were banded and sloughed off. 5. Surgical pathology report from the biopsies of the stomach showed no residual carcinoid tumor orneuroendocrine carcinoma. There were rare atypical cells noted but did not have any positive staining for neuroendocrine carcinoma. 6. At our initial consultation in January of 2019, I recommended PET-CT scan imaging and serological testing for vaso-active peptides: A. Chromogranin A level was elevated 489. B. Fasting serotonin levels less than 10. C. 24- hr urine collection for 5-H IAA was normal. D. PET CT scan with gallium donatate showed an abnormal focus of hypermetabolic activity involving the head of the pancreas measuring 1.5 cm. No other sites of suspicious hypermetabolic areas noted. 7. Due to concerns of a possible pancreatic neuroendocrine tumor, I referred the patient to Dr. Gato Abrams in Surgical Oncology Department at [facility]. 8. On February 24, 2019, she underwent an MRI of the pancreas which showed no evidence of any type of neoplastic process of the pancreas. It was completely normal. 9. At that time Dr. Abrams recommended continued EGD surveillance and did not recommend surgical intervention. 10. Repeat EGD by Dr. Winters on May 18, 2019 showed several gastric polyps and these were removedby snare polypectomy procedure. Surgical pathology revealed recurrent well-differentiated neuroendocrine tumor consistent with carcinoid tumor. 11. In May 2019, repeat MRI of the pancreas showed T2 enhancement of the greater curvature of the stomach. No other abnormalities were noted. Chromogranin A in May was better but still [id number]. 12. In May of 2019, we had a long discussion and I referred her back to Dr. Abrams. He had an in-depth discussion with the patient and decision was to proceed with surgical resection of this portion of the stomach that had recurrent disease. 13. On August 23, 2019, Dr. Abrams performed laparoscopic distal gastrectomy with Billroth II gastrojejunostomy reconstruction. - Surgical pathology report from the distal gastrectomy procedure showed a well- differentiated neuroendocrine tumor on 2 areas of the resected specimen measuring less than 1 mm. All surgical margins were free of disease. Two lymph nodes were removed without any abnormality. 14. In February 2020, CT scan of the abdomen pelvis showed a new 6 mm hyperenhancing lesion of the uncinate process of the pancreas. This was in a different location than the prior hyperenhancing lesion noted on scans last year. 15. After consultation with Dr. Abrams, we decided to proceed with medical therapy using [id number] mg IM every [address] Brown in Interventional Gastroenterology Department performed an EGD and EUS revealing no significant abnormalities of the stomach outside of a benign gastric polyp along with normal appearance of the body and tail the pancreas. Unfortunately, based on prior partial gastrectomy surgery, he was unable to visualize the head or the uncinate process of the pancreas. 17. At the time of re-consultation with Dr. Abrams, CT imaging shows stability of the 6 mm tumor ofthe uncinate process of the pancreas. 18. In August 2020, she did intermittent diarrhea that resembles steatorrhea but easily controlled with diet and [id number] medications. 19. Patient has been on octreotide injections 20 mg every 4 weeks for total of 12 cycles with the last dose in February 10, 2021. 20. In February 2021, she presented to the emergency department with generalized weakness, shakiness andnear syncopal episode. It was determined that she may have had hypoglycemia. After she contacted my office about this episode, I put a hold on the octreotide injection thinkingthat this caused her to have hypoglycemia. 21. In March 2021, she was evaluated by Dr. Abrams for repeat surgical follow-up along with the CT scan of the abdomen pelvis. The CT scan showed stable 6 mm lesion in the pancreas. No other findings were noted. 22. Dr. Tuttle repeated EUS EGD in the fall 2020. Endoscopic findings showed no abnormalities of the stomach or small bowel. Ultrasound evaluation showed a persistent 6 mm neuroendocrine lesion of the pancreas. This was stage is T1 N0 23. On April 27, 2022: Dr. Tuttle repeated the EUS EGD showing the following: - Gastric mucosal atrophy. There was no evidence of recurrent or new gastric carcinoid. - Patent Billroth II gastrojejunostomy was found, characterized by healthy appearing mucosa. - The pancreatic duct had a mildly dilated endosonographic appearance. - A small lesion/nodule was identified in the pancreatic head. Tissue has not been obtained. However, the endosonographic appearance is highly suspicious for a neuroendocrine tumor. The nodule/lesion was stable 24. June 2022: PET gallium DOTATATE scan showed focal uptake within uncinate pancreas suggesting residual tumor. Patient not have any signs regional distant metastatic disease. That point decided continue with the octreotide injections indefinitely. 25. October 2022: she message me that she wanted to stop the injections due to intermittent hypoglycemic episodes. That point we discontinue the octreotide injections. 26. December 2022: CT scan the chest, abdomen pelvis showed unchanged hypervascular nodule in the pancreatic uncinate process without any evidence of metastatic cancer. 27. One year telemedicine visit. Patient is asymptomatic. She changed her occupation and now works for [employer] again. She saw Dr. Abrams for her yearly surgical oncology visit. CT scan performed at that time showed a stable hypervascular nodule in the uncinate process of the pancreas measuring about 6.5-7 mm. No other evidence of metastatic disease or abnormalities. Her last EGD was April 26, 2023. This revealed gastric mucosal atrophy with patent Billroth 2 gastrojejunostomy without any evidence of carcinoid tumors or nodules. The EUS portion of the procedure showed stable 7 mm nodule. Impression: 1. 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 2. Pernicious anemia-remission. 3. Localized pancreatic neuroendocrine tumor. Octreotide induced hypoglycemia. This has resolved the sensation of these injections Recommendations: 1. Based on the recent CT scan, she has stable disease versus complete remission. 2. Therefore, she will continue with active surveillance. 3. Dr. Abrams and his PACKING AND STAMPING MACHINE OPERATOR have schedule another CT scan the abdomen pelvis with contrast in 1 year. 4. I will send her to the [facility] lab next week for the following diagnostic tests: Chromogranin and gastrin and CBC and vitamin B12 5. She will contact me at the end of June and then at that point I will refer to Interventional Gastroenterology at [facility] for surveillance EUS EGD. She does not want the procedure thissummer at this point because of work and family schedules. I feel it is safe for her to delay to the fall with this procedure. 6. I will see her in a telemedicine visit in 1 year. Sebastien Martinez D.O. Laborer [employer] Division of medical oncology [facility] documented in this encounter Plan of Treatment Not on file documented as of this encounter Visit Diagnoses Diagnosis Malignant carcinoid tumor of stomach (HCC)- Primary Malignant carcinoid tumor of the stomach Seronegative rheumatoid arthritis (CMS/HCC) (HCC) Rheumatoid arthritis Moderate episode of recurrent major depressive disorder (HCC) documented in this encounter Orders Appointment Requests Count Last Ordered Date Fi rst Ordered Date ONCBCN CLINIC APPOINTMENT REQUEST 1 024 documented in this encounter Care Teams Marketing Support Manager Relationship Specialty Start Date End Date Elizabeth Borrego PA [address] [facility] [address] [place] [address] PCP - General Internal Medicine 09/28/23 Luann Lawrence NP Nurse Practitioner Nurse Practitioner 01/06/19 Adarsh Tuttle MD [address] [place] [address] Consulting Physician Gastroenterology 02/22/19 Sebastien Martinez DO [address] [facility] [address] [place] [address] Medical Oncologist/Tax Expert Hematology and Oncology 02/22/19 Guru Winters DO [address] [place] [address] Consulting Physician Gastroenterology 02/22/19 Gato Abrams MD [address] [place] [id number] Surgeon Surgical Oncology 09/07/19 Marina Rosales MD [address] [place] [address] Consulting Physician General Surgery 03/24/21 documented as of this encounter
--- OUTSIDE RECORDS SUMMARY | 2024-10-04 02:57 | XMS_ITS | Encounter Summary ---
Author Organization [facility] Address [address] [place] [address] Phone Care Team Providers Care Patient Services Representative Name Role Phone Luann Lawrence ANUP Unavailable [phone] Adarsh Tuttle MD Unavailable [phone] Sebastien Martinez DO Unavailable [phone] Guru Winters DO Unavailable [phone] Gato Abrams MD Unavailable [phone] Marina Rosales MD Unavailable [phone] Elizabeth Borrego Primary Care Provider [phone] Reason for Referral * Diagnostic Imaging (Routine) - Closed Specialty Diagnoses / Procedures Referred By Contac t Referred To Contact Diagnoses Seronegative rheumatoid arthritis (CMS/HCC) (HCC) Procedures XR Hand Right 2 Views Salome Quiñonez MD [address] [place] [address] Phone: tel: fax: [address] [address] Referral ID Status Reason Start Date Expiration Date Visits Re quested Visits Authorized [id number] Closed 10/01/2023 10/30/2024 1 1 NT TECHNICAL SUPPORT ASSOCIATE * Diagnostic Imaging (Routine) - Closed Specialty Diagnoses / Procedures Referred By Contac t Referred To Contact Diagnoses Seronegative rheumatoid arthritis (CMS/HCC) (HCC) Procedures XR Hand Left 2 Views Salome Quiñonez MD [address] [place] [address] Phone: tel: fax: [facility] [address] [facility] [place] [address] Referral ID Status Reason Start Date Expiration Date Visits Re quested Visits Authorized [id number] Closed 10/01/2023 10/30/2024 1 1 NT TECHNICAL SUPPORT ASSOCIATE Reason for Visit * Consultation (Routine) - Closed Specialty Diagnoses / Procedures Referred By Clemencia mendez Referred To Contact Rheumatology Diagnoses Swelling of joint, knee, right Synovial cyst of right popliteal space [place] [address] [place] [address] Phone: tel: fax: [facility] (All Locations) Referral ID Status Reason Start Date Expiration Date V isits Requested Visits Authorized [id number] Closed Specialty Services Required 05/18/2023 06/16/2024 60 60 Encounter Details Date Type Department Care Team (Late st Contact Info) Description 10/01/2023 8:00 AM CLIENT TECHNICAL SUPPORT ASSOCIATE Office Visit [facility] Rheumatology [address] [place] [address] [place] [address] Salome Quiñonez MD [address] [place] [address] Seronegative rheumatoid arthritis (CMS/HCC) (HCC) (Primary Dx); Swelling of joint, knee, right; Synovial cyst of right popliteal space; Effusion of right knee Social History Tobacco Use Types Packs/Day Years Used Date Smoking Tobacco: Former Cigarettes 1 2 - 1998 Smokeless Tobacco: Never Tobacco Cessation:Counseling [...] on file 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:22 AM CLIENT TECHNICAL SUPPORT ASSOCIATE Gender Identity Female 06/07/2020 8:39 AM CDT Sexual Orientation Not on file 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 Not on file Not on file Not on file documented as of this encounter Last Filed Vital Signs Vital Sign Reading Time Taken Comments Blood Pressure 107/69 10/01/2023 8:00 AM CLIENT TECHNICAL SUPPORT ASSOCIATE Pulse 68 10/01/2023 8:00 AM CLIENT TECHNICAL SUPPORT ASSOCIATE Temperature 36.6 ??C (97.9 ??F) 10/01/2023 8:00 AM CS T Respiratory Rate - - Oxygen Saturation - - Inhaled Oxygen Concentration - - Weight 77.6 kg (171 lb) 10/01/2023 8:00 AM CLIENT TECHNICAL SUPPORT ASSOCIATE Height 162.6 cm (5' 4 ) 10/01/2023 8:00 AM CLIENT TECHNICAL SUPPORT ASSOCIATE Body Mass Index 29.35 10/01/2023 8:00 AM CLIENT TECHNICAL SUPPORT ASSOCIATE documented in this encounter Ordered Prescriptions Prescription Sig Dispense Quantity Refills Last Filled Start Date End Date hydroxychloroquine (PLAQUENIL) 200 mg tabletIndications: Rheumatoid Arthritis Take 2 tablets (400 mg total) by mouth every other day AND 1 tablet (200 mg total) every other day. Take 400mg (2 tablets) on even days and 200mg (1 tablet) on odd days. 135 tablet 1 10/01/2023 4 documented in this encounter Progress Notes * Salome Quiñonez MD - 10/01/2023 8:00 AM CST [facility] Division of Rheumatology This consult was requested by the doctor listed below for an opinion regarding the chief complaint listed below. 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 female with PMHx significant for seronegative RA, HTN, LBBB, HLD, depression and history of carcinoid tumor who is evaluated in the Rheumatology Clinic for history of seronegative rheumatoid arthritis. Patient states that 10 years ago, she [...] from 400mg ->200mg->100mg once she established at [facility] rheumatology. Discontinued it at end of July. Was seeing ophthalmology regularly. Noevidence of ototoxicity. Last saw 08/2023. Since discontinuing, she is feeling ok. Currently feeling bilateral PIP/DIP pain and paresthesias (especially when driving). Thinks she has carpal tunnel syndrome. Some bilateral knee pain (R>L). 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 Last aspiration 06/09/23 with PMR, Dr. Calderon, with CS injection. Has been drained by ortho and sports medicine multiple times this year. Morning stiffness lasting 15-30 minutes. RHEUMATOLOGIC ROS: Patient denies fatigue, fever, chills, unintentional weight loss, hair loss, dry eyes, dry mouth, eye pain/redness, hx of scleritis/uveitis/episcleritis/iritis, oral/nasal ulcers, rash, photosensitivity, Raynauds, chest pain, abdominal pain, nausea, vomiting, and shortness of breath All other systems negative Disease History: Refer to HPI Labs: Per [facility]where review: 02/2017 CMP Cr 0.65, LFT unremarkable CBC: Wbc 3.6, Hgb 11.0 (MCV 82.5), Plts 285k UA nitrite, wbc, many bacteria, positive epi cells; no symptoms Cx E. Coli ESR 14, CRP <0.01 Vit D level 20 TSH 1.77 C3 119, C4 20, CH50 55 EDWIN negative Anti Chromatin negative Anti dsDNA negative Anti Scl-70 negative Anti Sm/DRAINAGE DESIGN COORDINATOR negative Anti Sm negative Anti Centromere [...] within the left small finger metacarpal head. Medication History: HCQ PMHx: Past Medical History: Diagnosis Date Anemia Autoimmune disease (CMS/HCC) (HCC) Cancer (CMS/HCC) (HCC) carcinode tumors Carcinoid tumor of stomach Colon polyp Depression Heart murmur Hyperlipidemia Hypertension Left bundle branch block Rheumatoid arthritis (HCC) Urinary tract infection years ago PSHx: Past Surgical History: Procedure Laterality Date ABDOMINAL SURGERY 08-23-2019 SECTION 1989,1991 twice COLONOSCOPY 11/2018 ENDOMETRIAL ABLATION 09/2005 ESOPHAGOGASTRODUODENOSCOPY 2018 x4 GASTRECTOMY 08/23/2019 partial HERNIA REPAIR STOMACH SURGERY TUBAL LIGATION 02/2005 UPPER GASTROINTESTINAL ENDOSCOPY FamHx: Family History Problem Relation Age of Onset Dementia Mother Coronary artery disease Mother s/p CABG Emphysema Father Heart failure Father Other (Congestive Heart Failure) Father No Known Problems Sister Heart attack Brother Ovarian cancer Mother's Sister Colon cancer Mother's Brother Cancer Maternal Grandmother Anesthesia problems Neg Hx FHx: Sister: RA Otherwise, no FHx of autoimmune disorders SocHx: Social History Tobacco Use Smoking status: Former Packs/day: 1.00 Years: 2.00 Additional pack years: 0.00 Total pack years: 2.00 Types: Cigarettes Start date: 1996 Quit date: 1998 Years since quittin.9 Smokeless tobacco: Never Substance and Sexual Activity Drug use: None Sexual activity: Not Currently Partners: Male Alcohol Use: Alcohol Misuse (04/26/2023) AUDIT-C Frequency of Alcohol Consumption: 2-3 times a week Average Number of Drinks: 3 or 4 Frequency of Binge Drinking: Monthly MEDICATIONS: Current Outpatient Medications Medication Sig Dispense Refill ascorbic acid (vitamin C) 1,000 mg tablet buPROPion XL (WELLBUTRIN XL) 150 mg 24 hr tablet TAKE ONE TABLET BY MOUTH EVERY MORNING 90 tablet 1 cholecalciferol (VITAMIN D-3) 1,000 unit capsule Take 2 capsules (2,000 Units total) by mouth earlymorning before breakfast pravastatin (PRAVACHOL) 40 mg tablet Take 1 tablet (40 mg total) by mouth daily 90 tablet 3 valsartan-hydroCHLOROthiazide (DIOVAN-HCT) 80-12.5 mg per tablet Take 1 tablet by mouth daily 30 tablet 1 multivitamin capsule Take 1 capsule by mouth electrical 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 ALLERGIES: No Known Allergies OBJECTIVE: Physical Examination: Vitals: BP 107/69 Pulse 68 Temp 36.6 ??C (97.9 ??F) Ht 162.6 cm (5' 4 ) Wt 77.6 kg (171 lb) BMI 29.35 kg/m?? General: NAD, alert. HEENT: EOMs intact grossly. No hair thinning. MMM, no oral/nasal ulcers Neck: No LAD Cardiac: regular rate, no LE edema Resp: No difficulty breathing, no audible wheezes or abnormal sounds Ext: No cyanosis or clubbing Neuro: Gait Normal. Moves all limbs independently Skin: No rash. No ulcers on exposed skin Musculoskeletal: Synovitis of left wrist though non-tender. Large right knee Duke cyst without significant tenderness to palpation. Mild TTP of scattered PIPs and DIPs. Otherwise, no swelling, tenderness or warmth in the fingers, hands, wrists, elbows, shoulders, knees, ankles. Investigations: Labs: Reviewed labs above in rheumatology background and labs from 10/01/23, notable for negative RF and CCP. Negative inflammatory markers. Lab Results Component Value Date WBC 4.2 03/02/2023 HGB 11.4 (L) 03/02/2023 HCT 35.0 (L) 03/02/2023 MCV 89.5 03/02/2023 LABPLAT 244 03/02/2023 Lab Results Component Value Date AST 28 03/02/2023 ALT 27 03/02/2023 CREATININE 0.81 03/02/2023 Urine studies: No components found for: NYA750 , No components found for: UA , LASTURINETOX Lipid panel: No results found for: CHOL , CHLPL , HDL , LDLCALC , TRIG , CHOLHDL Muscle enzymes: No results found for: CK , ALDOLASE SLE serologies: No components found for: OHA104 , NDC2243 , GXG30819 APS serologies: No components found for: RQG504 , JFN2472 , SEA626 Inflammatory markers: Lab Results Component Value Date SEDRATE 15 03/02/2023 CRP <3.0 03/02/2023 Imaging: Reviewed in Rheumatology background and XR of bilateral hands and wrists 10/01/2023, notable for nonspecific 5th/erosions in bilateral carpi. Moderate to severe CMC oa ASSESSMENT/PLAN: //Polyarthralgia Previously diagnosed with seronegative RA. Most recently following with Rheumatology at [facility] who suggested more of an erosive OA versus degenerative OA picture. Patient's symptoms improved while on hydroxychloroquine for 10 years. Has slightly worsened since discontinuation. Most likely patient has some underlying inflammatory process given improvement with hydroxychloroquine, though she has hand distribution most consistent with OA as she has no MCP involvement which is more typical for RA PLAN: -Ordered ESR, CRP, RF, CCP evaluate for disease activity and re-evaluate serologies for RA. No evidence of inflammation and RF/CCP were negative -Ordered XR hands, wrists to evaluate for disease progression. Unable to compare to previous radiographs, but possible evidence of erosive changes in bilateral wrists. Will refer for diagnostic ultrasound of bilateral hands and wrists to evaluate for active synovitis -restart hydroxychloroquine 300 mg daily (alternating 400 mg and 200 mg a day) as patient has significant relief in the past with this regimen -continue annual eye exams to monitor for Plaquenil toxicity. Last exam 09/08/2023 without evidenceof toxicity RTC in 3 months Patient seen and discussed with Dr. Bria Quiñonez MD Clinical Fellow [facility], Division of Rheumatology Cosigned by Paulette Fraser MD at 10/01/2023 5:36 PM CLIENT TECHNICAL SUPPORT ASSOCIATE NT TECHNICAL SUPPORT ASSOCIATE NT TECHNICAL SUPPORT ASSOCIATE Associated attestation - Paulette Fraser MD - 10/01/2023 5:36 PM CLIENT TECHNICAL SUPPORT ASSOCIATE I have seen and examined the patient. I agree with the findings and plan of care as documented in the resident/fellow's note. documented in this encounter Plan of Treatment Not on file documented as of this encounter Results * XR Wrist Left 3 or More Views (10/01/2023 9:28 AM CLIENT TECHNICAL SUPPORT ASSOCIATE) Anatomical Region Laterality Modality Upper Extremities, Wrist Left Compute d Radiography 10/01/2023 9:40 AM CLIENT TECHNICAL SUPPORT ASSOCIATE Impressions 10/01/2023 9:40 AM CLIENT TECHNICAL SUPPORT ASSOCIATE 1. ??Nonspecific cystic changes or erosions involving the carpus bilaterally. ??If the clinical concern for inflammatory arthritis is high, this can be further evaluated with bilateral hand and wrist MRI without and with contrast. 2. ??Moderate to severe right 1st and moderate left 1st carpometacarpal osteoarthritis. Electronically signed by: David Burt MD Narrative 10/01/2023 9:40 AM CLIENT TECHNICAL SUPPORT ASSOCIATE EXAMINATION: XR WRIST LEFT 3 OR MORE VIEWS, XR HAND LEFT 2 VIEWS, XR HAND RIGHT 2 VIEWS, XR WRIST RIGHT 3 OR MORE VIEWS HISTORY: Bilateral hand and wrist pain, inflammatory polyarthropathy FINDINGS: 2 views of the left hand and 3 views of the left wrist are submitted without comparison. ??Alignment is normal. ??There is no acute fracture. ??Old healed fracture of the distal left 3rd metacarpal. Mineralization is normal. ??Nonspecific cystic changes or erosions throughout the carpus. ??Moderate 1st carpometacarpal osteoarthritis. 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 ??Moderate soft tissue swelling of the left wrist. 2 views of the right hand and 3 views of the right wrist are submitted without comparison. ??Alignment is normal. ??There is no acute fracture. ??Normal mineralization. ??Nonspecific cystic changes or erosions throughout the carpus. ??Moderate to severe 1st carpometacarpal osteoarthritis. ??Mild radiocarpal osteoarthritis. Mild soft tissue swelling of the right wrist. Procedure Note David Burt MD - 10/01/2023 EXAMINATION: XR WRIST LEFT 3 OR MORE VIEWS, XR HAND LEFT 2 VIEWS, XR HAND RIGHT 2 VIEWS, XR WRIST RIGHT 3 OR MORE VIEWS HISTORY: Bilateral hand and wrist pain, inflammatory polyarthropathy FINDINGS: 2 views of the left hand and 3 views of the left wrist are submitted without comparison. Alignment is normal. There is no acute fracture. Old healed fracture of the distal left 3rd metacarpal. Mineralization is normal. Nonspecific cystic changes or erosions throughout the carpus. Moderate 1st carpometacarpal osteoarthritis. 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 Moderate soft tissue swelling of the left wrist. 2 views of the right hand and 3 views of the right wrist are submitted without comparison. Alignment is normal. There is no acute fracture. Normal mineralization. Nonspecific cystic changes or erosions throughout the carpus. Moderate to severe 1st carpometacarpal osteoarthritis. Mild radiocarpal osteoarthritis. Mild soft tissue swelling of the right wrist. IMPRESSION: 1. Nonspecific cystic changes or erosions involving the carpus bilaterally. If the clinical concern for inflammatory arthritis is high, this can be further evaluated with bilateral hand and wrist MRI without and with contrast. 2. Moderate to severe right 1st and moderate left 1st carpometacarpal osteoarthritis. Electronically signed by: David Burt MD us Salome Quiñonez MD IMG XR PROCEDURES Devika l Result * XR Wrist Right 3 or More Views (10/01/2023 9:28 AM CLIENT TECHNICAL SUPPORT ASSOCIATE) Anatomical Region Laterality Modality Upper Extremities, Wrist Right Compute d Radiography 10/01/2023 9:40 AM CLIENT TECHNICAL SUPPORT ASSOCIATE Impressions 10/01/2023 9:40 AM CLIENT TECHNICAL SUPPORT ASSOCIATE 1. ??Nonspecific cystic changes or erosions involving the carpus bilaterally. ??If the clinical concern for inflammatory arthritis is high, this can be further evaluated with bilateral hand and wrist MRI without and with contrast. 2. ??Moderate to severe right 1st and moderate left 1st carpometacarpal osteoarthritis. Electronically signed by: David Burt MD Narrative 10/01/2023 9:40 AM CLIENT TECHNICAL SUPPORT ASSOCIATE EXAMINATION: XR WRIST LEFT 3 OR MORE VIEWS, XR HAND LEFT 2 VIEWS, XR HAND RIGHT 2 VIEWS, XR WRIST RIGHT 3 OR MORE VIEWS HISTORY: Bilateral hand and wrist pain, inflammatory polyarthropathy FINDINGS: 2 views of the left hand and 3 views of the left wrist are submitted without comparison. ??Alignment is normal. ??There is no acute fracture. ??Old healed fracture of the distal left 3rd metacarpal. Mineralization is normal. ??Nonspecific cystic changes or erosions throughout the carpus. ??Moderate 1st carpometacarpal osteoarthritis. 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 ??Moderate soft tissue swelling of the left wrist. 2 views of the right hand and 3 views of the right wrist are submitted without comparison. ??Alignment is normal. ??There is no acute fracture. ??Normal mineralization. ??Nonspecific cystic changes or erosions throughout the carpus. ??Moderate to severe 1st carpometacarpal osteoarthritis. ??Mild radiocarpal osteoarthritis. Mild soft tissue swelling of the right wrist. Procedure Note David Burt MD - 10/01/2023 EXAMINATION: XR WRIST LEFT 3 OR MORE VIEWS, XR HAND LEFT 2 VIEWS, XR HAND RIGHT 2 VIEWS, XR WRIST RIGHT 3 OR MORE VIEWS HISTORY: Bilateral hand and wrist pain, inflammatory polyarthropathy FINDINGS: 2 views of the left hand and 3 views of the left wrist are submitted without comparison. Alignment is normal. There is no acute fracture. Old healed fracture of the distal left 3rd metacarpal. Mineralization is normal. Nonspecific cystic changes or erosions throughout the carpus. Moderate 1st carpometacarpal osteoarthritis. 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 Moderate soft tissue swelling of the left wrist. 2 views of the right hand and 3 views of the right wrist are submitted without comparison. Alignment is normal. There is no acute fracture. Normal mineralization. Nonspecific cystic changes or erosions throughout the carpus. Moderate to severe 1st carpometacarpal osteoarthritis. Mild radiocarpal osteoarthritis. Mild soft tissue swelling of the right wrist. IMPRESSION: 1. Nonspecific cystic changes or erosions involving the carpus bilaterally. If the clinical concern for inflammatory arthritis is high, this can be further evaluated with bilateral hand and wrist MRI without and with contrast. 2. Moderate to severe right 1st and moderate left 1st carpometacarpal osteoarthritis. Electronically signed by: aDvid Burt MD us Salome Quiñonez MD IMG XR PROCEDURES Devika l Result * XR Hand Right 2 Views (10/01/2023 9:28 AM CLIENT TECHNICAL SUPPORT ASSOCIATE) Anatomical Region Laterality Modality Upper Extremities, Hand Right Computed Radiography 10/01/2023 9:40 AM CLIENT TECHNICAL SUPPORT ASSOCIATE Impressions 10/01/2023 9:40 AM CLIENT TECHNICAL SUPPORT ASSOCIATE 1. ??Nonspecific cystic changes or erosions involving the carpus bilaterally. ??If the clinical concern for inflammatory arthritis is high, this can be further evaluated with bilateral hand and wrist MRI without and with contrast. 2. ??Moderate to severe right 1st and moderate left 1st carpometacarpal osteoarthritis. Electronically signed by: David Burt MD Narrative 10/01/2023 9:40 AM CLIENT TECHNICAL SUPPORT ASSOCIATE EXAMINATION: XR WRIST LEFT 3 OR MORE VIEWS, XR HAND LEFT 2 VIEWS, XR HAND RIGHT 2 VIEWS, XR WRIST RIGHT 3 OR MORE VIEWS HISTORY: Bilateral hand and wrist pain, inflammatory polyarthropathy FINDINGS: 2 views of the left hand and 3 views of the left wrist are submitted without comparison. ??Alignment is normal. ??There is no acute fracture. ??Old healed fracture of the distal left 3rd metacarpal. Mineralization is normal. ??Nonspecific cystic changes or erosions throughout the carpus. ??Moderate 1st carpometacarpal osteoarthritis. 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 ??Moderate soft tissue swelling of the left wrist. 2 views of the right hand and 3 views of the right wrist are submitted without comparison. ??Alignment is normal. ??There is no acute fracture. ??Normal mineralization. ??Nonspecific cystic changes or erosions throughout the carpus. ??Moderate to severe 1st carpometacarpal osteoarthritis. ??Mild radiocarpal osteoarthritis. Mild soft tissue swelling of the right wrist. Procedure Note David Burt MD - 10/01/2023 EXAMINATION: XR WRIST LEFT 3 OR MORE VIEWS, XR HAND LEFT 2 VIEWS, XR HAND RIGHT 2 VIEWS, XR WRIST RIGHT 3 OR MORE VIEWS HISTORY: Bilateral hand and wrist pain, inflammatory polyarthropathy FINDINGS: 2 views of the left hand and 3 views of the left wrist are submitted without comparison. Alignment is normal. There is no acute fracture. Old healed fracture of the distal left 3rd metacarpal. Mineralization is normal. Nonspecific cystic changes or erosions throughout the carpus. Moderate 1st carpometacarpal osteoarthritis. 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 Moderate soft tissue swelling of the left wrist. 2 views of the right hand and 3 views of the right wrist are submitted without comparison. Alignment is normal. There is no acute fracture. Normal mineralization. Nonspecific cystic changes or erosions throughout the carpus. Moderate to severe 1st carpometacarpal osteoarthritis. Mild radiocarpal osteoarthritis. Mild soft tissue swelling of the right wrist. IMPRESSION: 1. Nonspecific cystic changes or erosions involving the carpus bilaterally. If the clinical concern for inflammatory arthritis is high, this can be further evaluated with bilateral hand and wrist MRI without and with contrast. 2. Moderate to severe right 1st and moderate left 1st carpometacarpal osteoarthritis. Electronically signed by: David Burt MD Salome Quiñonez MD IMG XR PROCEDURES Devika l Result * XR Hand Left 2 Views (10/01/2023 9:28 AM CLIENT TECHNICAL SUPPORT ASSOCIATE) Anatomical Region Laterality Modality Upper Extremities, Hand Left Computed Radiography 10/01/2023 9:40 AM CLIENT TECHNICAL SUPPORT ASSOCIATE Impressions 10/01/2023 9:40 AM CLIENT TECHNICAL SUPPORT ASSOCIATE 1. ??Nonspecific cystic changes or erosions involving the carpus bilaterally. ??If the clinical concern for inflammatory arthritis is high, this can be further evaluated with bilateral hand and wrist MRI without and with contrast. 2. ??Moderate to severe right 1st and moderate left 1st carpometacarpal osteoarthritis. Electronically signed by: David Burt MD Narrative 10/01/2023 9:40 AM CLIENT TECHNICAL SUPPORT ASSOCIATE EXAMINATION: XR WRIST LEFT 3 OR MORE VIEWS, XR HAND LEFT 2 VIEWS, XR HAND RIGHT 2 VIEWS, XR WRIST RIGHT 3 OR MORE VIEWS HISTORY: Bilateral hand and wrist pain, inflammatory polyarthropathy FINDINGS: 2 views of the left hand and 3 views of the left wrist are submitted without comparison. ??Alignment is normal. ??There is no acute fracture. ??Old healed fracture of the distal left 3rd metacarpal. Mineralization is normal. ??Nonspecific cystic changes or erosions throughout the carpus. ??Moderate 1st carpometacarpal osteoarthritis. 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 ??Moderate soft tissue swelling of the left wrist. 2 views of the right hand and 3 views of the right wrist are submitted without comparison. ??Alignment is normal. ??There is no acute fracture. ??Normal mineralization. ??Nonspecific cystic changes or erosions throughout the carpus. ??Moderate to severe 1st carpometacarpal osteoarthritis. ??Mild radiocarpal osteoarthritis. Mild soft tissue swelling of the right wrist. Procedure Note David Burt MD - 10/01/2023 EXAMINATION: XR WRIST LEFT 3 OR MORE VIEWS, XR HAND LEFT 2 VIEWS, XR HAND RIGHT 2 VIEWS, XR WRIST RIGHT 3 OR MORE VIEWS HISTORY: Bilateral hand and wrist pain, inflammatory polyarthropathy FINDINGS: 2 views of the left hand and 3 views of the left wrist are submitted without comparison. Alignment is normal. There is no acute fracture. Old healed fracture of the distal left 3rd metacarpal. Mineralization is normal. Nonspecific cystic changes or erosions throughout the carpus. Moderate 1st carpometacarpal osteoarthritis. 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 Moderate soft tissue swelling of the left wrist. 2 views of the right hand and 3 views of the right wrist are submitted without comparison. Alignment is normal. There is no acute fracture. Normal mineralization. Nonspecific cystic changes or erosions throughout the carpus. Moderate to severe 1st carpometacarpal osteoarthritis. Mild radiocarpal osteoarthritis. Mild soft tissue swelling of the right wrist. IMPRESSION: 1. Nonspecific cystic changes or erosions involving the carpus bilaterally. If the clinical concern for inflammatory arthritis is high, this can be further evaluated with bilateral hand and wrist MRI without and with contrast. 2. Moderate to severe right 1st and moderate left 1st carpometacarpal osteoarthritis. Electronically signed by: David Burt MD Slaome Quiñonez MD IMG XR PROCEDURES Devika l Result * Rheumatoid factor (10/01/2023 9:02 AM CLIENT TECHNICAL SUPPORT ASSOCIATE) Pathologist [facility] [place] Rheumatoid factor, quant <10.0 0.1 - 15.0 IUnits/mL [facility] Blood 10/01/2023 9:02 AM CLIENT TECHNICAL SUPPORT ASSOCIATE 10/01/2023 10:51 AM CLIENT TECHNICAL SUPPORT ASSOCIATE Salome Quiñonez MD LAB BLOOD ORDERABLES F inal Result Performing Organization Address City/[facility] Co de Phone Number [facility] [place] [address] * Cyclic citrul peptide antibody, IgG (10/01/2023 9:02 AM CLIENT TECHNICAL SUPPORT ASSOCIATE) [facility] CCP Ab <0.5 <=2.9 units/mL [facility] Comment: Interpretive data Negative: <3 units/mL Positive: > or equal to 3 units/mL Current interpretive data was last revised on 2017. Blood 10/01/2023 9:02 AM CLIENT TECHNICAL SUPPORT ASSOCIATE 10/01/2023 10:51 AM CLIENT TECHNICAL SUPPORT ASSOCIATE Salome Quiñonez MD LAB BLOOD ORDERABLES F inal Result Performing Organization Address City/[facility] Co de Phone Number [facility] [place] [address] * Erythrocyte sedimentation rate (10/01/2023 9:02 AM CLIENT TECHNICAL SUPPORT ASSOCIATE) [facility] Erythrocyte sedimentation rate 16 1 - 30 mm/hr [facility] Blood 10/01/2023 9:02 AM CLIENT TECHNICAL SUPPORT ASSOCIATE 10/01/2023 10:51 AM CLIENT TECHNICAL SUPPORT ASSOCIATE us Salome Quiñonez MD LAB BLOOD ORDERABLES F inal Result ANDREA TRUJILLO [facility] Department [place] [address] * CRP (acute phase) (10/01/2023 9:02 AM CLIENT TECHNICAL SUPPORT ASSOCIATE) C-Reactive Protein, Acute <3.0 <5.0 mg/L [facility] Blood 10/01/2023 9:02 AM CLIENT TECHNICAL SUPPORT ASSOCIATE 10/01/2023 10:26 AM CLIENT TECHNICAL SUPPORT ASSOCIATE us Salome Quiñonez MD LAB BLOOD ORDERABLES F inal Result [facility] documented in this encounter Visit Diagnoses Diagnosis Seronegative rheumatoid arthritis (CMS/HCC) (HCC)- Primary Rheumatoid arthritis Swelling of joint, knee, right Synovial cyst of right popliteal space Effusion of right knee Seronegative rheumatoid arthritis (CMS/HCC) (HCC) Rheumatoid arthritis documented in this encounter Orders Outpatient Referral Count Last Ordered Date st Ordered Date AMB REFERRAL TO RHEUMATOLOGY 1 10/01/2023 documented in this encounter Care Teams Patient Services Representative Relationship Specialty Start Date End Date Elizabeth Borrego PA [address] [place] [address] PCP - General Internal Medicine 09/28/23 Luann Lawrence NP Nurse Practitioner Nurse Practitioner 01/06/19 Adarsh Tuttle MD [address] [place] [address] Consulting Physician Gastroenterology 02/22/19 [place] [address] [place] [address] Medical Oncologist/Bowl Turner Hematology and Oncology 02/22/19 [place] [address] [place] [address] Consulting Physician Gastroenterology 02/22/19 Gato Abrams MD [address] [place] [address] Surgeon Surgical Oncology 09/07/19 Marina Rosales MD [address] [place] [address] Consulting Physician General Surgery 03/24/21 documented as of this encounter
--- OUTSIDE RECORDS SUMMARY | 2024-10-04 02:57 | XMS_ITS | Encounter Summary ---
Author Organization [facility] Healthcare Address [address] [place] [address] Care Team Providers Care Manager Membership Name Role Phone Luann Lawrence NP Unavailable [phone] Adarsh Tuttle MD Unavailable [phone] Sebastien Martinez DO Unavailable [phone] Guru Winters DO Unavailable [phone] Gato Abrams MD Unavailable [phone] Elizabeth Borrego Primary Care Provider [phone] Marina Rosales MD Unavailable [phone] Reason for Referral * Diagnostic Imaging (Routine) - Closed Specialty Diagnoses / Procedures Referred By Contac t Referred To Contact Diagnoses Swelling of joint, knee, right Procedures XR Knee Right [address] [place] [address] [place] [address] Phone: tel: fax: [facility] Referral ID Status Reason Start Date Expiration Date Visits Re quested Visits Authorized [id number] Closed 05/18/2023 06/16/2024 1 1 Reason for Visit * Diagnostic Imaging (Routine) - Closed Specialty Diagnoses / Procedures Referred By Contac t Referred To Contact Diagnoses Swelling of joint, knee, right Procedures XR Knee Right [address] [place] [address] [place] [address] Phone: tel: fax: 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 Gender Identity Female 06/07/2020 8:39 AM CDT Sexual Orientation Not on file 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 Not on file Not on file documented as of this encounter Medications at Time of Discharge cholecalciferol (VITAMIN D-3) 1,000 unit capsuleIndicatio ns:Vitamin D Deficiency Take 2 capsules (2,000 Units total) by mouth sharepoint engineer before breakfast buPROPion XL (WELLBUTRIN XL) 150 mg 24 hr tabletIndication s:Moderate episode of recurrent major depressive disorder (HCC) Take 1 tablet (150 mg total) by mouth every morning 90 tablet 1 03/04/2023 3 escitalopram (LEXAPRO) 10 mg tabletIndication s:Moderate episode of recurrent major depressive disorder (HCC) Take 1 tablet (10 mg total) by mouth daily 90 tablet 1 03/04/2023 3 hydroxychloroqui ne (PLAQUENIL) 200 mg tabletIndication s:Arthritis Take 1 tablet (200 mg total) by mouth sharepoint engineer before breakfast 01/30/2019 3 multivitamin capsuleIndicatio ns:Vitamin Deficiency Prevention Take 1 capsule by mouth sharepoint engineer before breakfast 4 pravastatin (PRAVACHOL) 40 mg tabletIndication s:Dyslipidemia Take 1 tablet (40 mg total) by mouth every morning 90 tablet 1 03/04/2023 3 syringe with needle (Syringe 3cc/25Gx1 ) 3 mL 25 gauge x 1 syringe 1 Syringe every 30 (thirty) days For use with monthly IM Vitamin B12 injections 30 each 02/18/2022 3 valsartan-hydroC HLOROthiazide (DIOVAN-HCT) 80-12.5 mg per tabletIndication s:hypertension Take 1 tablet by mouth daily 90 tablet 1 03/04/2023 3 documented as of this encounter Discharge Disposition Disposition Code Departure Means Destination Discharge to home or self care documented in this encounter Plan of Treatment Not on file documented as of this encounter Procedures Procedure Name Priority Date/Time Associated Diagnosis Comments XR KNEE RIGHT 3 VIEWS Schedule Routine, Read Routine (OP Routine) 05/18/2023 11:44 AM CDT Swelling of joint, knee, right documented in this encounter Results * XR Knee Right 3 View (05/18/2023 11:44 AM CDT) Anatomical Region Laterality Modality Lower Extremities, Knee Right Computed Radiography 05/18/2023 2:38 PM CDT Impressions 05/18/2023 5:52 PM CDT 1. ??Small right knee joint effusion without acute osseous abnormality. 2. ??Soft tissue attenuation posterior to the knee joint corresponding to known popliteal cyst. Dictated by: Nino Wolff M.D. The radiology attending physician has personally reviewed this study, and had reviewed and/or edited this written report and agrees with it. Electronically signed by: Janet Hyde MD Narrative 05/18/2023 5:52 PM CDT EXAMINATION: XR KNEE RIGHT 3 VIEWS HISTORY: ??Right knee pain FINDINGS: 3 views of the right knee are submitted for interpretation with comparison to radiograph 03/12/2022. Anatomic alignment without acute fracture. ??Small right knee joint effusion. ??Soft tissue attenuation posterior to the knee joint corresponding to known popliteal cyst. Procedure Note Janet Hyde MD - 05/18/2023 EXAMINATION: XR KNEE RIGHT 3 VIEWS HISTORY: Right knee pain FINDINGS: 3 views of the right knee are submitted for interpretation with comparison to radiograph 03/12/2022. Anatomic alignment without acute fracture. Small right knee joint effusion. Soft tissue attenuation posterior to the knee joint corresponding to known popliteal cyst. IMPRESSION: 1. Small right knee joint effusion without acute osseous abnormality. 2. Soft tissue attenuation posterior to the knee joint corresponding to known popliteal cyst. Dictated by: Nino Wolff M.D. The radiology attending physician has personally reviewed this study, and had reviewed and/or edited this written report and agrees with it. Electronically signed by: Janet Hyde MD Jason Barber IV, MD IMG XR PROCEDURES Fin al Result documented in this encounter Visit Diagnoses Diagnosis Swelling of joint, knee, right documented in this encounter Care Teams Manager Membership Relationship Specialty Start Date End Date Elizabeth Borrego PA [address] [place] [address] PCP - General Internal Medicine 03/25/20 09/27/23 Luann Lawrence NP Nurse Practitioner Nurse Practitioner 01/06/19 Adarsh Tuttle MD [address] [facility] [address] [place] [address] Consulting Physician Gastroenterology 02/22/19 Sebastien Martinez DO [address] [place] [address] Medical Oncologist/Psychiatry Instructor Hematology and Oncology 02/22/19 Guru Winters DO [address] [place] [address] Consulting Physician Gastroenterology 02/22/19 Gato Abrams MD [address] [place] [address] Surgeon Surgical Oncology 09/07/19 Marina Rosales MD [address] [facility] [address] [place] [address] Consulting Physician General Surgery 03/24/21 documented as of this encounter
--- OUTSIDE RECORDS SUMMARY | 2024-10-04 02:57 | XMS_ITS | Encounter Summary ---
Author Organization [facility] Medical Group Address [address] [place] [address] Care Team Providers Care Aircraft Refueller Name Role Phone Luann Lawrence NP Unavailable [phone] Adarsh Tuttle MD Unavailable Sebastien Martinez DO Unavailable [phone] Guru Winters DO Unavailable [phone] Gato Abrams MD Unavailable [phone] Elizabeth Borrego Primary Care Provider [phone] Marina Rosales MD Unavailable [phone] Reason for Visit * Cardiology (Routine) - Closed Specialty Diagnoses / Procedures Referred By Contjimmy t Referred To Contact Diagnoses 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 LBBB (left bundle branch block) HTN (hypertension), benign Palpitations Procedures Transthoracic Echo (TTE) Complete W Doppler/CF Cheri Marroquin MD Phone: tel: fax: [facility] Referral ID Status Reason Start Date Expiration Date Visits Re quested Visits Authorized [id number] Closed 10/06/2022 11/05/2023 1 1 Encounter Details Date Type Department Care Team (Latest Contact Info) Description 04/05/2023 9:15 AM CDT Ancillary Procedure [facility] Cardiology [address] [place] [address] 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; LBBB (left bundle branch block); HTN (hypertension), benign; Palpitations Social History Tobacco Use Types Packs/Day Years [...] on file 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 Gender Identity Female 06/07/2020 8:39 AM CDT Sexual Orientation Not on file 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 Not on file Not on file documented as of this encounter Last Filed Vital Signs Vital Sign Reading Time Taken Comments Blood Pressure 145/87 04/05/2023 9:19 AM CDT Pulse - - Temperature - - Respiratory Rate - - Oxygen Saturation - - Inhaled Oxygen Concentration - - Weight - - Height - - Body Mass Index - - documented in this encounter Plan of Treatment Not on file documented as of this encounter Procedures Procedure Name Priority Date/Time Associated Diagnosis Comments TRANSTHORACIC ECHO (TTE) COMPLETE W DOPPLER/CF WO CONTRAST Routine 04/05/2023 9:54 AM CDT 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 LBBB (left bundle branch block) HTN (hypertension), benign Palpitations documented in this encounter Results * TRANSTHORACIC ECHO (TTE) COMPLETE W DOPPLER/CF WO CONTRAST (04/05/2023 9:54 AM CDT) Anatomical Region Laterality Modality Ultrasound 04/05/2023 9:23 AM CDT Narrative 04/05/2023 1:16 PM CDT [facility] Cardiology [address], [place] [address] [address], [place] [address] P:[phone] P:[phone] Echocardiographic Report Patient Name: JUANJO GIBSON L : 1965 Study Date: 04/05/2023 9:23:11 AM Gender: F Tech: Location: [place] Ref.Provider: CHERI MARORQUIN Height(Cm): 168 BSA: 1.87 Weight(Kg): 75.3 Heart Rate: 59 BP: 145 / 87 Quality: Good Order Provider: CHERI MARROQUIN Procedures: Echocardiographic Report: Transthoracic echocardiogram with complete 2D, M-Mode, and color Doppler examination. With Strain Analysis. Indications: LBBB, Lambls excrescence, HTN. Measurements: 2D/M Mode ? Doppler ? Measurement ?Value ?Normal Range ?Measurement ?Value ?Normal Range ? LVIDd 2D ? 4.55 ? [ 3.90 - 5.30 ] cm ?AV Mean PG ? 9 ?mmHg ? LVIDs 2D ? 3.47 ? [ 2.30 - 3.90 ] cm ?AV Peak Dangelo ?1.97 ? m/s ? LVPWd 2D ? 1.10 ? [ 0.60 - 1.00 ] cm ?AV Peak PG ? 16 ? mmHg ? IVSd 2D ?1.23 ? [ 0.60 - 0.90 ] cm ?AV VTI ? 34.32 ?cm ? LA Dimension MM ?2.70 ? [ 2.70 - 3.80 ] cm ?LVOT Diam ?1.97 ? [ 1.70 - 2.10 ] cm ? AoR Diam MM ?2.82 ? [ 2.60 - 3.70 ] cm ?LVOT Peak Dangelo ?0.82 ? [ 0.70 - 1.10 ] m/s ? LA Volume Index ?29 ? [ 16 - 28 ] cc/m2 ? LVOT VTI ? 19.45 ?cm ? ACS MM ? 1.81 ? cm ?MV E Peak Dangelo ?0.78 ? [ 0.60 - 1.30 ] m/s ?MV A Peak Dangelo ?0.83 ? [ 0.40 - 0.80 ] m/s ?MV Decel Time ?284 ?[ 150 - 200 ] msec ?TR Peak Dangelo ?2.27 ? m/s ?TR Peak PG ? 21 ? mmHg ?Lateral E` ? 0.09 ? cm/sec ?E` ? 0.06 ? cm/sec ?E/E` ? 9 ? Findings: Interpretation Site: Exam was interpreted at [facility]. Left Ventricle: Normal left ventricular systolic function. No focal wall motion abnormalities. Normal left ventricular size. Mild concentric left ventricular hypertrophy. Impaired diastolic relaxation Grade I. Ejection fraction is visually estimated at 60 %. Ejection fraction is measured at 56 %. Global Longitudinal Strain is -17 %. GLS is borderline. Right Ventricle: Normal right ventricular size. Normal right ventricular systolic function. Left Atrium: There is mild enlargement of left atrium. Right Atrium: The right atrium is normal in size. Atrial Septum: Normal atrial septum. Mitral Valve: Normal appearance of the mitral valve. Mild mitral valve regurgitation. There is no hemodynamically significant mitral stenosis by Doppler. Aortic Valve: No evidence of hemodynamically significant aortic stenosis by Doppler. Aortic cusps appear mildly sclerotic. Trileaflet aortic valve. Trace aortic valve regurgitation. Tricuspid Valve: Normal appearance of the tricuspid valve. Normal right ventricular systolic pressure. Estimated peak RVSP is 25-30 mmHg. Mild tricuspid regurgitation. Pulmonic Valve: Normal appearance of the pulmonic valve. No pulmonic stenosis. Trivial regurgitation in the pulmonic valve. Pericardium: Normal pericardium with no significant pericardial effusion. Aorta: Normal aortic root. IVC: Normal size and normal respiratory collapse consistent with normal right atrial pressure (<5 mmHg). Conclusions: Normal left ventricular systolic function. No [...] regurgitation. Mild tricuspid regurgitation. Normal sinus rhythm. Electronically Signed By: Roge Winters MD 2023-04-05 13:16:46 CDT Procedure Note Roge Winters MD - 04/05/2023 [facility] Cardiology [address], [place] [address] [address] [facility] [address], [place] [address] P:[phone] P:[phone] Echocardiographic Report Patient Name: JUANJO GIBSON LPatient ID: [id number] : [id number] Date: 04/05/2023 9:23:11 AM Gender: FAccession #: [id number] Tech: Location: [place] Ref.Provider: Madison MARROQUINight(Cm): 168 BSA: 1.87Weight(Kg): 75.3 Heart Rate: 59BP: 145 / 87 Quality: GoodOrder Provider: CHERI MARROQUIN Procedures: Echocardiographic Report: Transthoracic echocardiogram with complete 2D, M-Mode, and color Dopplerexamination. With Strain Analysis. Indications: LBBB, Lambls excrescence, HTN. Measurements: 2D/M Mode Doppler Measurement Value Normal Range Measurement ValueNormal Range LVIDd 2D 4.55 [ 3.90 - 5.30 ] cm AV Mean PG 9mmHg LVIDs 2D 3.47 [ 2.30 - 3.90 ] cm AV Peak Dangelo 1.97m/s LVPWd 2D 1.10 [ 0.60 - 1.00 ] cm AV Peak PG 16mmHg IVSd 2D 1.23 [ 0.60 - 0.90 ] cm AV VTI 34.32cm LA Dimension MM 2.70 [ 2.70 - 3.80 ] cm LVOT Diam 1.97[ 1.70 - 2.10 ] cm AoR Diam MM 2.82 [ 2.60 - 3.70 ] cm LVOT Peak Dangelo 0.82[ 0.70 - 1.10 ] m/s LA Volume Index 29 [ 16 - 28 ] cc/m2 LVOT VTI 19.45cm ACS MM 1.81 cm MV E Peak Dangelo 0.78[ 0.60 - 1.30 ] m/s MV A Peak Dangelo 0.83[ 0.40 - 0.80 ] m/s MV Decel Time 284[ 150 - 200 ] msec TR Peak Dangelo 2.27m/s TR Peak PG 21mmHg Lateral E` 0.09cm/sec E` 0.06cm/sec E/E` 9 Findings: Interpretation Site: Exam was interpreted at [facility]. Left Ventricle: Normal left ventricular systolic function. No focal wall motionabnormalities. Normal left ventricular size. Mild concentric left ventricular hypertrophy.Impaired diastolic relaxation Grade I. Ejection fraction is visually estimated at 60 %.Ejection fraction is measured at 56 %. Global Longitudinal Strain is -17 %. GLS isborderline. Right Ventricle: Normal right ventricular size. Normal right ventricular systolicfunction. Left Atrium: There is mild enlargement of left atrium. Right Atrium: The right atrium is normal in size. Atrial Septum: Normal atrial septum. Mitral Valve: Normal appearance of the mitral valve. Mild mitral valve regurgitation.There is no hemodynamically significant mitral stenosis by Doppler. Aortic Valve: No evidence of hemodynamically significant aortic stenosis by Doppler.Aortic cusps appear mildly sclerotic. Trileaflet aortic valve. Trace aortic valveregurgitation. Tricuspid Valve: Normal appearance of the tricuspid valve. Normal right ventricularsystolic pressure. Estimated peak RVSP is 25-30 mmHg. Mild tricuspid regurgitation. Pulmonic Valve: Normal appearance of the pulmonic valve. No pulmonic stenosis. Trivialregurgitation in the pulmonic valve. Pericardium: Normal pericardium with no significant pericardial effusion. Aorta: Normal aortic root. IVC: Normal size and normal respiratory collapse consistent with normal rightatrial pressure (<5 mmHg). Conclusions: Normal left ventricular systolic function. No focal wall motionabnormalities. Normal left ventricular size. Mild concentric left ventricular hypertrophy.Impaired diastolic relaxation Grade I. Ejection fraction is visually estimated at 60 %.Ejection fraction is measured at 56 %. Global Longitudinal Strain is -17 %. GLS isborderline. There is mild enlargement of left atrium. Mild mitral valve regurgitation. Mild tricuspid regurgitation. Normal sinus rhythm. 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 LBBB (left bundle branch block) Other left bundle branch block HTN (hypertension), benign Essential hypertension, benign Palpitations documented in this encounter Care Teams Aircraft Refueller Relationship Specialty Start Date End Date Elizabeth Borrego PA [address] [facility] [address] [place] [address] PCP - General Internal Medicine 03/25/20 09/27/23 Luann Lawrence NP Nurse Practitioner Nurse Practitioner 01/06/19 Adarsh Tuttle MD [address] [place] [address] Consulting Physician Gastroenterology 02/22/19 Sebastien Martinez DO [facility] [facility] [address] [place] [address] Medical Oncologist/Coordinator Cardiopulmonary Services Hematology and Oncology 02/22/19 Guru Winters DO [facility] [address] Consulting Physician Gastroenterology 02/22/19 Gato Abrams MD [facility] [address] [place] [address] Surgeon Surgical Oncology 09/07/19 Marina Rosales MD [address] [place] [address] Consulting Physician General Surgery 03/24/21 documented as of this encounter
--- OUTSIDE RECORDS SUMMARY | 2024-10-04 02:57 | XMS_ITS | Encounter Summary ---
Author Organization [facility] Address [address] [place] [address] Phone Care Team Providers Care Radio Machinist Name Role Phone MelindaLuann oh ANUP Unavailable [phone] Adarsh Tuttle MD Unavailable [phone] Sebastien Martinez DO Unavailable [phone] Guru Winters DO Unavailable [phone] Gato Abrams MD Unavailable [phone] Elizabeth Borrego Primary Care Provider [phone] Marina Rosales MD Unavailable [phone] Reason for Referral * MRI/CAT/PET Scan (Routine) - Closed Specialty Diagnoses / Procedures Referred By Contac t Referred To Contact Radiology Diagnoses Swelling of joint, knee, right Synovial cyst of right popliteal space Procedures [place] [address] [place] [address] Phone: tel: fax: [facility] [address] [place] [address] Referral ID Status Reason Start Date Expiration Date Visits Re quested Visits Authorized [id number] Closed 05/05/2023 11/01/2023 1 1 Encounter Details Date Type Department Care Team (Late st Contact Info) Description 05/05/2023 Orders Only [facility] Orthopaedic Surgery 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 ??Motion degraded study shows no definite meniscal tear. 2. ??Large Duke's cyst. 3. ??Moderate joint effusion. 4. ??Mild to moderate generalized chondrosis. Electronically signed by: Amari Akers M.D. Narrative 05/11/2023 8:46 AM CDT MRI knee right without contrast HISTORY: Right knee pain. ??Recent drainage of popliteal cyst. TECHNIQUE: MRI of the right knee was done without contrast. FINDINGS: Comparison x-rays 03/12/2022. There is a large complex Duke's cyst. There is a moderate joint effusion. Anterior and posterior cruciate ligaments are normal. The extensor mechanism is normal. The collateral ligaments are normal. There are no fractures appreciated. There is mild bone edema in the lateral tibial plateau likely degenerative in etiology. There is moderate patellofemoral chondrosis and mild to moderate lateral and medial chondrosis. The study is motion degraded. ??Patient was unable to hold still. There is no convincing evidence of meniscal tear. Procedure Note Amari Akers MD - 05/11/2023 MRI knee right without contrast HISTORY: Right knee pain. Recent drainage of popliteal cyst. TECHNIQUE: MRI of the right knee was done without contrast. FINDINGS: Comparison x-rays 03/12/2022. There is a large complex Duke's cyst. There is a moderate joint effusion. Anterior and posterior cruciate ligaments are normal. The extensor mechanism is normal. The collateral ligaments are normal. There are no fractures appreciated. There is mild bone edema in the lateral tibial plateau likely degenerative in etiology. There is moderate patellofemoral chondrosis and mild to moderate lateral and medial chondrosis. The study is motion degraded. Patient was unable to hold still. There is no convincing evidence of meniscal tear. IMPRESSION: 1. Motion degraded study shows no definite meniscal tear. 2. Large Duke's cyst. 3. Moderate joint effusion. 4. Mild to moderate generalized chondrosis. Electronically signed by: Amari Akers M.D. Jason Barber IV, MD IM MRI PROCEDURES Fi nal Result documented in this encounter Visit Diagnoses Diagnosis Swelling of joint, knee, right- Primary Synovial cyst of right popliteal space Swelling of joint, knee, right Synovial cyst of right popliteal space documented in this encounter Care Teams Radio Machinist Relationship Specialty Start Date End Date Elizabeth Borrego PA [address] [place], [place] [id number] PCP - General Internal Medicine 03/25/20 09/27/23 Luann Lawrence, POWDER LINE REPAIRER Nurse Practitioner Nurse Practitioner 01/06/19 Adarsh Tuttle MD [address] [place] [address] Consulting Physician Gastroenterology 02/22/19 Sebastien Martinez DO [facility] [address] Medical Oncologist/Dispenser Operator Hematology and Oncology 02/22/19 Guru Winters DO [facility] [address] Consulting Physician Gastroenterology 02/22/19 Gato Abrams MD [address] [place] [address] Surgeon Surgical Oncology 09/07/19 Marina Rosales MD [address] [place] [address] Consulting Physician General Surgery 03/24/21 documented as of this encounter
--- OUTSIDE RECORDS SUMMARY | 2024-10-04 02:57 | XMS_ITS | Encounter Summary ---
Author Organization [facility] Healthcare Address [address] [place] [address] Care Team Providers Care Girl Friday Name Role Phone Luann Lawrence NP Unavailable [phone] Adarsh Tuttle MD Unavailable [phone] Sebastien Martinez DO Unavailable Guru Winters DO Unavailable [phone] Gato Abrams MD Unavailable Marina Rosales MD Unavailable [phone] Elizabeth Borrego Primary Care Provider [phone] Encounter Details Date Type Department Care Team (Late st Contact Info) Description 12/02/2023 Orders Only [facility] Medical Group Family Medicine [address] [place] [address] Elizabeth Borrego PA [address] [place] [address] Social History Tobacco Use Types Packs/Day Years [...] on file 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 70 g 12/02/2023 4 documented in this encounter Plan of Treatment Not on file documented as of this encounter Visit Diagnoses Not on filedocumented in this encounter Care Teams Girl Friday Relationship Specialty Start Date End Date Elizabeth Borrego PA [address] [facility] [address] [place] [address] PCP - General Internal Medicine 09/28/23 Luann Lawrence NP Nurse Practitioner Nurse Practitioner 01/06/19 Adarsh Tuttle MD [address] [facility] [address] [place] [address] Consulting Physician Gastroenterology 02/22/19 Sebastien Martinez DO [address] [address] Medical Oncologist/Bi Consultant Hematology and Oncology 02/22/19 Guru Winters DO [address] [place] [address] Consulting Physician Gastroenterology 02/22/19 Gato Abrams MD [address] [place] [address] Surgeon Surgical Oncology 09/07/19 Marina Rosales MD [address] [place] [address] Consulting Physician General Surgery 03/24/21 documented as of this encounter
--- OUTSIDE RECORDS SUMMARY | 2024-10-04 02:57 | XMS_ITS | Encounter Summary ---
Author Organization [facility] Healthcare Address [address] [place] [address] Care Team Providers Care Sales Coach Name Role Phone Luann Lawrence NP Unavailable [phone] Adarsh Tuttle MD Unavailable [phone] Sebastien Martinez DO Unavailable [phone] Guru Winters DO Unavailable [phone] Gato Abrasm MD Unavailable Elizabeth Borrego Primary Care Provider [phone] Marina Rosales MD Unavailable [phone] Reason for Referral * Sleep Medicine (Routine) - Closed Specialty Diagnoses / Procedures Referred By Clemencia mendez Referred To Contact Diagnoses Snoring Procedures Portable/Home Sleep Study Amari Flores MD [address] [address] Phone: tel: fax: [facility] [address] [place] [address] Phone: tel: fax: Referral ID Status Reason Start Date Expiration Date Visits Re quested Visits Authorized [id number] Closed 05/18/2023 06/16/2024 1 1 Reason for Visit * Sleep Medicine (Routine) - Closed Specialty Diagnoses / Procedures Referred By Clemencia mendez Referred To Contact Diagnoses Snoring Procedures Portable/Home Sleep Study Amari Flores MD [address] [place] [address] Phone: tel: fax: [facility] [address] [address] Phone: tel: fax: Referral ID Status Reason Start Date Expiration Date Visits Re quested Visits Authorized [id number] Closed 05/18/2023 06/16/2024 1 1 Encounter Details Date Type Department Care Team (Latest Contact Info) Description 06/09/2023 8:32 AM CDT - 06/09/2023 11:59 PM CDT Hospital Encounter [facility] [address] [place] [address] Snoring Discharge Disposition: Discharge to home or self [...] file 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:22 AM 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 Gender Identity Female 06/07/2020 8:39 AM CDT Sexual Orientation Not on file 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 Not on file Not on file documented as of this encounter Medications at Time of Discharge cholecalciferol (VITAMIN D-3) 1,000 unit capsuleIndicatio ns:Vitamin D Deficiency Take 2 capsules (2,000 Units total) by mouth horse buyer before breakfast buPROPion XL (WELLBUTRIN XL) 150 [...] 1 tablet (200 mg total) by mouth horse buyer before breakfast 01/30/2019 3 multivitamin capsuleIndicatio ns:Vitamin Deficiency Prevention Take 1 capsule by mouth horse buyer before breakfast 4 pravastatin (PRAVACHOL) 40 mg [...] or self care documented in this encounter Miscellaneous Notes * Addendum Note - Amari Flores MD - 06/09/2023 9:00 AM CDTEncounter addended by: Amari Flores MD on: 06/10/2023 12:00 PM Actions taken: Charge Capture section accepted documented in this encounter Plan of Treatment Not on file documented as of this encounter Procedures Procedure Name Priority Date/Time Associated Diagnosis Comments PORTABLE/HOME SLEEP STUDY Routine 06/09/2023 8:32 AM CDT Snoring documented in this encounter Results * Portable/Home Sleep Study (06/09/2023 8:32 AM CDT) us Amari Flores MD SLEEP CENTER ORDERABLES F inal Result [facility] SLEEP MEDICINE [address] [place] [address] documented in this encounter Visit Diagnoses Diagnosis Snoring Other dyspnea and respiratory abnormality documented in this encounter Care Teams Sales Coach Relationship Specialty Start Date End Date Elizabeth Borrego PA [address] [place], [place] [phone] PCP - General Internal Medicine 03/25/20 09/27/23 Luann Lawrence NP Nurse Practitioner Nurse Practitioner 01/06/19 Adarsh Tuttle MD [address] [place] [address] Consulting Physician Gastroenterology 02/22/19 Sebastien Martinez DO [address] [facility] [address] [place] [address] Medical Oncologist/Finisher Wallboard And Plasterboard Hematology and Oncology 02/22/19 Guru Winters DO [address] [facility] [address] [place] [address] Consulting Physician Gastroenterology 02/22/19 Gato Abrams MD [address] [facility] [address] [place] [address] Surgeon Surgical Oncology 09/07/19 Marina Rosales MD [address] [facility] [address] [place] [address] Consulting Physician General Surgery 03/24/21 documented as of this encounter
--- OUTSIDE RECORDS SUMMARY | 2024-10-04 02:57 | XMS_ITS | Encounter Summary ---
Author Organization [facility] Address [address] [address] Care Team Providers Care Graphic Specialist Name Role Phone Luann Lawrence NP Unavailable [phone] Adarsh Tuttle MD Unavailable [phone] Sebastien Martinez DO Unavailable [phone] Guru Winters DO Unavailable [phone] Gato Abrams MD Unavailable [phone] Elizabeth Borrego Primary Care Provider [phone] Marina Rosales MD Unavailable [phone] Reason for Referral * Sleep Medicine (Routine) - Closed Specialty Diagnoses / Procedures Referred By Clemencia t Referred To Contact Diagnoses Snoring Procedures Portable/Home Sleep Study Amari Flores MD [address] [facility] [address] [address] Phone: tel: fax: [facility] [address] [place] [address] Phone: tel: fax: Referral ID Status Reason Start Date Expiration Date Visits Re quested Visits Authorized [id number] Closed 05/18/2023 06/16/2024 1 1 Reason for Visit * Consultation (Routine) - Closed Specialty Diagnoses / Procedures Referred By Clemencia mendez Referred To Contact Sleep Medicine Diagnoses Apneic episode Elizabeth Borrego PA [address] [place] [address] Phone: tel: fax: Amari Flores MD [address] [place] [address] Phone: tel: fax: Referral ID Status Reason Start Date Expiration Date V isits Requested Visits Authorized [id number] Closed Specialty Services Required 04/27/2023 05/26/2024 1 1 Encounter Details Date Type Department Care Team (Late st Contact Info) Description 05/18/2023 8:30 AM CDT Office Visit 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 Not on file Not on file documented as of this encounter Last Filed Vital Signs Vital Sign Reading Time Taken Comments Blood Pressure 101/64 05/18/2023 8:23 AM CDT Pulse 61 05/18/2023 8:23 AM CDT Temperature 36.9 ??C (98.4 ??F) 05/18/2023 8:23 AM CD T Respiratory Rate 18 05/18/2023 8:23 AM CDT Oxygen Saturation 96% 05/18/2023 8:23 AM CDT Inhaled Oxygen Concentration - - Weight 78.5 kg (173 lb) 05/18/2023 8:23 AM CDT Height 162.6 cm (5' 4 ) 05/18/2023 8:23 AM CDT Body Mass Index 29.7 05/18/2023 8:23 AM CDT documented in this encounter Progress Notes * Amari Flores MD - 05/18/2023 8:30 AM CDT Images from the original note were not included. Consultation Note Patient: Fabiola Gibson ( - 1965) is a 57 y.o. female. Visit Date: 05/18/2023 I am seeing this patient in consultation, requested by NBA Turk for evaluation for a possible sleep-related breathing disorder . History of Present Illness: The patient is a 57 year old female that recently underwent an EUS and was told by the anesthesiologist following the procedure that she was having apneic episodes. She sleeps alone but her daughter recently observed her sleeping and told the patient that she was snoring. She typically retires between 8 and 9:00 p.m. and starts her day around 6:00 a.m.. She does have 2 awakenings at night associated with nocturia. She will occasionally have dry mouth but no headaches. She does occasionally havegastroesophageal reflux. She denies waking up gasping or choking. Her right lower extremity does move at night and she was started on Lexapro in the spring of this year. She is tired during the day but denies being sleepy and does not fall asleep at inappropriate times such as while driving or eating. Her [place] Sleepiness Scale score is 5. 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 No current facility-administered medications for this visit. Allergies: No Known Allergies Family History: Family History Problem Relation Age of Onset Dementia Mother Coronary artery disease Mother s/p CABG Emphysema Father Heart failure Father Other (Congestive Heart Failure) Father No Known Problems Sister Heart attack Brother Ovarian cancer Mother's Sister Colon cancer Mother's Brother Cancer Maternal Grandmother Anesthesia problems Neg Hx Social History: Social History Tobacco Use Smoking status: Former Packs/day: 1.00 Years: 2.00 Pack years: 2.00 Types: Cigarettes Start date: 1996 Quit date: 1998 Years since quittin.5 Smokeless tobacco: Never Substance and Sexual Activity Drug use: None Sexual activity: Not Currently Partners: Male Alcohol Use: Heavy Drinker (04/26/2023) AUDIT-C Frequency of Alcohol Consumption: 2-3 times a week Average Number of Drinks: 3 or 4 Frequency of Binge Drinking: Monthly Review of Systems: Review of Systems Constitutional: Positive for unexpected weight change. Negative for appetite change and fever. Gained weight HENT: Negative for rhinorrhea, sinus pressure, sinus pain, sore throat and tinnitus. Respiratory: Negative for cough, shortness of breath and wheezing. Cardiovascular: Negative for chest pain, palpitations and leg swelling. LBBB Gastrointestinal: Negative for abdominal pain, diarrhea and nausea. Occasional GERD Genitourinary: Negative for hematuria. Musculoskeletal: Positive for arthralgias. Negative for back pain and myalgias. Skin: Negative for color change. Allergic/Immunologic: Negative for environmental allergies and food allergies. Neurological: Negative for dizziness and light-headedness. Physical Exam: Vitals: 05/18/23 0823 BP: 101/64 Pulse: 61 Resp: 18 Temp: 36.9 ??C (98.4 ??F) SpO2: 96% Weight: 78.5 kg (173 lb) Height: 162.6 cm (5' 4 ) Physical Exam Constitutional: Appearance: She is well-developed. HENT: Head: Normocephalic and atraumatic. Mouth/Throat: Comments: Grade 4 oral aperture Eyes: Pupils: Pupils are equal, round, and reactive to light. Cardiovascular: Rate and Rhythm: Normal rate and regular rhythm. Pulmonary: Effort: Pulmonary effort is normal. Breath sounds: Normal breath sounds. Abdominal: General: Bowel sounds are normal. Palpations: Abdomen is soft. Musculoskeletal: General: Normal range of motion. Cervical back: Normal range of motion and neck supple. Skin: General: Skin is warm and dry. Neurological: Mental Status: She is alert and oriented to person, place, and time. Data Reviewed Images: MRI Knee Right WO Contrast Result Date: 05/11/2023 1. Motion degraded study shows no definite meniscal tear. 2. Large Duke's cyst. 3. Moderate joint effusion. 4. Mild to moderate generalized chondrosis. Electronically signed by: Amari Akers M.D. Assessment and Plan: Diagnoses and all orders for this visit: Snoring (Primary) Assessment & Plan: The patient presents with snoring and was witnessed to have apneic episodes following a recent procedure where she would conscious sedation. I have ordered a home sleep test since she has [employer] insurance. She will follow-up with me in 3 months. Orders: - Portable/Home Sleep Study; Future Apneic episode - Ambulatory referral to Sleep Medicine Rendering Provider & Department: Amari Flores MD documented in this encounter Miscellaneous Notes * Assessment & Plan Note - Amari Flores MD - 05/18/2023 8:52 AM CDT Associated Problem(s): Snoring The patient presents with snoring and was witnessed to have apneic episodes following a recent procedure where she would conscious sedation. I have ordered a home sleep test since she has [employer] insurance. She will follow-up with me in 3 months. documented in this encounter Plan of Treatment Not on file documented as of this encounter Results * Portable/Home Sleep Study (06/09/2023 8:32 AM CDT) us Amari Flores MD SLEEP CENTER ORDERABLES F inal Result [facility] SLEEP MEDICINE [address] [place] [address] documented in this encounter Visit Diagnoses Diagnosis Snoring- Primary Other dyspnea and respiratory abnormality Apneic episode documented in this encounter Orders Outpatient Referral Count Last Ordered Date Fir st Ordered Date AMB REFERRAL TO SLEEP MEDICINE 1 05/18/2023 documented in this encounter Care Teams Graphic Specialist Relationship Specialty Start Date End Date Elizabeth Borrego PA [address] [place] [address] PCP - General Internal Medicine 03/25/20 09/27/23 Luann Lawrence NP Nurse Practitioner Nurse Practitioner 01/06/19 Adarsh Tuttle MD [address] [facility] [address] [place] [address] Consulting Physician Gastroenterology 02/22/19 Sebastien Martinez DO [address] [place] [id number] Medical Oncologist/Cementer Hand Hematology and Oncology 02/22/19 Guru Winters DO [address] [place] [address] Consulting Physician Gastroenterology 02/22/19 Gato Abrams MD [address] [place] [address] [address] [place] [address] Surgeon Surgical Oncology 09/07/19 Marina Rosales MD [address] [place] [address] [address] [place] [address] Consulting Physician General Surgery 03/24/21 documented as of this encounter
--- OUTSIDE RECORDS SUMMARY | 2024-10-04 02:57 | XMS_ITS | Encounter Summary ---
Author Organization [facility] Address [address] [place] [address] Phone Care Team Providers Care Bank Analyst Name Role Phone Luann Lawrence ANUP Unavailable [phone] Adarsh Tuttle MD Unavailable [phone] Sebastien Martinez DO Unavailable [phone] Guru Winters DO Unavailable [phone] Gato Abrams MD Unavailable [phone] Marina Rosales MD Unavailable Elizabeth Borrego Primary Care Provider [phone] Encounter Details Date Type Department Care Team (Late st Contact Info) Description 10/12/2023 Orders Only NARVAEZ OS PMR [phone] Scanning, Provider Social History Tobacco Use Types Packs/Day Years [...] on file 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 Gender Identity Female 06/07/2020 8:39 AM CDT Sexual Orientation Not on file 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 Not on file Not on file documented as of this encounter Plan of Treatment Not on file documented as of this encounter Procedures Procedure Name Priority Date/Time Associated Diagnosis Comments SCAN - RADIOLOGY/IMAGING 10/12/2023 documented in this encounter Results * SCAN - RADIOLOGY/IMAGING (10/12/2023) Anatomical Region Laterality Modality Other us Provider Scanning Final Result documented in this encounter Visit Diagnoses Not on filedocumented in this encounter Care Teams Bank Analyst Relationship Specialty Start Date End Date Elizabeth Borrego PA [address] [place] [address] PCP - General Internal Medicine 09/28/23 Luann Lawrence NP Nurse Practitioner Nurse Practitioner 01/06/19 Adarsh Tuttle MD [address] [facility] [facility] [facility] [address] [place] [address] Consulting Physician Gastroenterology 02/22/19 Sebastien Martinez DO [address] [address] Medical Oncologist/Plane Runner Hematology and Oncology 02/22/19 Guru Winters DO [address] [place] [address] Consulting Physician Gastroenterology 02/22/19 Gato Abrams MD [address] [place], [place] [address] Surgeon Surgical Oncology 09/07/19 Marina Rosales MD [address] [place], [place] [address] Consulting Physician General Surgery 03/24/21 documented as of this encounter
--- OUTSIDE RECORDS SUMMARY | 2024-10-04 02:57 | XMS_ITS | Encounter Summary ---
Author Organization [facility] Address [address] [place] [address] Phone Care Team Providers Care Shipwright Apprentice Name Role Phone Luann Lawrence ANUP Unavailable [phone] Adarsh Tuttle MD Unavailable [phone] Sebastien Martinez DO Unavailable [phone] Guru Winters DO Unavailable Gato Abrams MD Unavailable [phone] Marina Rosales MD Unavailable [phone] Elizabeth Borrego Primary Care Provider [phone] Reason for Visit * Reason Onset Date Comments GI Preprocedure 04/05/2024 Encounter Details Date Type Department Care Team (Late st Contact Info) Description 04/05/2024 Telephone [facility] Gastroenterology [facility] Medical Office Building [address], [address] [place] [address] Breanne Torres LPN GI Preprocedure [...] on file 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 Postponed referral and message sent to referring. * Telephone Encounter - Breanne Torres LPN - 04/05/2024 4:08 PM CDT ----- Message ----- From: Cordelia Flores MD Sent: 04/03/2024 4:27 PM CDT To: Carina Nolasco Subject: RE: Arthur 1. Office visit versus direct procedure (specify [...] Lai Sent: 04/03/2024 1:04 PM CDT To: [facility]ell[facility] 1 Pool Subject: Arthur Internal referral, records in Epic/Care Everywhere. Please advise on scheduling. documented in this encounter Plan of Treatment Not on file documented as of this encounter Visit Diagnoses Not on filedocumented in this encounter Care Teams Shipwright Apprentice Relationship Specialty Start Date End Date Elizabeth Borrego PA [address] [place], [place] [id number] PCP - General Internal Medicine 09/28/23 Luann Lawrence, ANUP Nurse Practitioner Nurse Practitioner 01/06/19 Adarsh Tuttle MD [address] [facility] [address] [place] [address] Consulting Physician Gastroenterology 02/22/19 Sebastien Martinez DO [address] [facility] [address] [place], [place] [address] Medical Oncologist/Cream Hauler Hematology and Oncology 02/22/19 Guru Winters DO [address] [facility] [address] [place], [place] [address] Consulting Physician Gastroenterology 02/22/19 Gato Abrams MD [address] [id number] Surgeon Surgical Oncology 09/07/19 Marina Rosales MD [address] [place] [address] Consulting Physician General Surgery 03/24/21 documented as of this encounter
--- OUTSIDE RECORDS SUMMARY | 2024-10-04 02:57 | XMS_ITS | Encounter Summary ---
Author Organization [facility] Address [address] [place] [address] Care Team Providers Care Mold Finisher Name Role Phone Luann Lawrence NP Unavailable [phone] Adarsh Tuttle MD Unavailable [phone] Sebastien Martinez DO Unavailable [phone] Guru Winters DO Unavailable [phone] Gato Abrams MD Unavailable [phone] Elizabeth Borrego Primary Care Provider [phone] Marina Rosales MD Unavailable [phone] Encounter Details Date Type Department Care Team (Late st Contact Info) Description 06/03/2023 4:35 PM CDT Lab [facility] Outpatient Lab [address] [place] [address] Social History Tobacco Use Types Packs/Day Years [...] on file 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 Gender Identity Female 06/07/2020 8:39 AM CDT Sexual Orientation Not on file 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 Not on file Not on file documented as of this encounter Plan of Treatment Not on file documented as of this encounter Visit Diagnoses Not on filedocumented in this encounter Care Teams Mold Finisher Relationship Specialty Start Date End Date Elizabeth Borrego PA [address] [facility] [address] [place], [place] [id number] PCP - General Internal Medicine 03/25/20 09/27/23 Luann Lawrence, ANUP Nurse Practitioner Nurse Practitioner 01/06/19 Adarsh Tuttle MD [address] [facility] [address] [place] [address] Consulting Physician Gastroenterology 02/22/19 Sebastien Martinez DO [address] [place] [address] Medical Oncologist/Commercial Lines Account Manager Hematology and Oncology 02/22/19 Guru Winters DO [address] [place] [address] Consulting Physician Gastroenterology 02/22/19 Gato Abrams MD [address] [place] [address] Surgeon Surgical Oncology 09/07/19 Marina Rosales MD [address] [place] [address] [address] [place], [place] [id number] Consulting Physician General Surgery 03/24/21 documented as of this encounter
--- OUTSIDE RECORDS SUMMARY | 2024-10-04 02:57 | XMS_ITS | Encounter Summary ---
Author Organization [facility] Address [address] [place] [address] Phone Care Team Providers Care Wallboard Worker Name Role Phone Luann Lawrence ANUP Unavailable [phone] Adarsh Tuttle MD Unavailable Sebastien Martinez DO Unavailable [phone] Guru Winters DO Unavailable [phone] Gato Abrams MD Unavailable [phone] Marina Rosales MD Unavailable [phone] Elizabeth Borrego Primary Care Provider [phone] Reason for Visit * Reason Comments Pain * Injectables (Routine) - Closed Specialty Diagnoses / Procedures Referred By Contjimmy t Referred To Contact Diagnoses Chronic pain of right knee Swelling of joint, knee, right Procedures Large Joint Injection w/ Ultrasound Guidance Daryn Calderon MD [address] [facility] [address] [place] [address] Phone: tel: fax: [facility] (All Locations) Referral ID Status Reason Start Date Expiration Date Visits Re quested Visits Authorized [id number] Closed 09/23/2023 10/22/2024 1 1 Encounter Details Date Type Department Care Team (Latest Contact Info) Description 10/12/2023 4:15 PM MACHINE PACK ASSEMBLER Procedure visit [facility] Orthopaedic Surgery [address] [facility] [address] [place] [address] Daryn Calderon MD [address] [facility] [address] [place] [address] Chronic pain of right knee; Swelling of [...] on file 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:22 AM MACHINE PACK ASSEMBLER Gender Identity Female 06/07/2020 8:39 AM CDT Sexual Orientation Not on file 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 Not on file Not on file documented as of this encounter Progress Notes * Daryn Calderon MD - 10/12/2023 4:15 PM CSTAssociated Order(s): Large Joint Injection w/ Ultrasound Guidance: R knee Pre-Procedure Diagnose(s): Chronic pain of right knee; Swelling of joint, knee, right Post-Procedure Diagnose(s): Chronic pain of right knee; Swelling of joint, knee, right PROCEDURE NOTE: Ultrasound guided peripheral injection: Duke's cyst aspiration Indications: Duke's cyst Side: Right Equipment: Lemon Curve 6-15 MHz linear transducer Patient position: prone, knee extended All images are archived on the [employer] and uploaded to clinical desktop. A pre-scan [...] a lateral to medial suprapatellar approach. Aspiration: 216 cc of serous fluid was aspirated After [...] performed the entire procedure. Daryn Calderon M.D. [facility] Division of Physical Medicine and Rehabilitation Department of Orthopaedic Surgery [facility] Daryn Calderon M.D. dictating using M Modal. Harness Rigger variances may occur. ========= Large Joint Injection [...] the procedure well with no immediate complications INE PACK ASSEMBLER documented in this encounter Plan of Treatment Not on file documented as of this encounter Procedures Procedure Name Priority Date/Time Associated Diagnosis Comments OR ARTHROCENTESIS ASPIR&/INJ MAJOR JT/BURSA W/US Routine 10/12/2023 4:15 PM MACHINE PACK ASSEMBLER Chronic pain of right knee Swelling of joint, knee, right documented in this encounter Results * OR ARTHROCENTESIS ASPIR&/INJ MAJOR JT/BURSA W/US (10/12/2023 4:15 PM MACHINE PACK ASSEMBLER) Narrative Daryn Calderon MD - 10/12/2023 4:15 PM MACHINE PACK ASSEMBLER Daryn Calderon MD ? 10/12/2023 ??4:44 PM Large Joint Injection w/ Ultrasound Guidance: [...] the procedure well with no immediate complications Daryn Calderon MD IN CLINIC/BEDSIDE ORDERA BLES Final Result documented in this encounter Visit Diagnoses Diagnosis Chronic pain of right knee Swelling of joint, knee, right documented in this encounter Administered Medications Inactive Administered Medications - up to 3 most recent administrations Medication Order MAR Action Action Date Dose Rate Site lidocaine (XYLOCAINE) 10 mg/mL (1 %) injection 5 mL 5 mL, One-Time Injection, Starting on Wed10/12/23 at 1615, For 1 dose, Indications: Administration of Local AnesthesiaIndications:Administ ration of Local Anesthesia Given 10/12/2023 4:15 PM MACHINE PACK ASSEMBLER 5 mL Right Knee triamcinolone (KENALOG) 40 mg/mL injection 40 mg 40 mg, intra-articular, One-Time Injection, Starting on Wed10/12/23 at 1615, For 1 doseIndications:Chronic pain of right knee,Swelling of joint, knee, right Given 10/12/2023 4:15 PM MACHINE PACK ASSEMBLER 40 mg Right Knee documented in this encounter Care Teams Wallboard Worker Relationship Specialty Start Date End Date Elizabeth Borrego PA [address] [facility] [address] [place], [place] [phone] PCP - General Internal Medicine 09/28/23 Luann Lawrence, ANUP Nurse Practitioner Nurse Practitioner 01/06/19 Adarsh Tuttle MD [address] [facility] [address] [place], [place] [phone] Consulting Physician Gastroenterology 02/22/19 Sebastien Martinez DO [address] [place] [id number] Medical Oncologist/Rivet Passer Hematology and Oncology 02/22/19 Guru Winters DO [facility] [address] [address] Consulting Physician Gastroenterology 02/22/19 Gato Abrams MD [address] [place] [address] Surgeon Surgical Oncology 09/07/19 Marina Rosales MD [address] [place] [address] Consulting Physician General Surgery 03/24/21 documented as of this encounter
--- OUTSIDE RECORDS SUMMARY | 2024-10-04 02:57 | XMS_ITS | Encounter Summary ---
Author Organization [facility] Healthcare Address [address] [place] [address] Care Team Providers Care Tandem Operator Name Role Phone Luann Lawrence NP Unavailable [phone] Adarsh Tuttle MD Unavailable [phone] Sebastien Martinez DO Unavailable [phone] Guru Winters DO Unavailable Gato Abrams MD Unavailable Marina Rosales MD Unavailable [phone] Elizabeth Borrego Primary Care Provider [phone] Reason for Referral * Diagnostic Imaging (Routine) - Authorized Specialty Diagnoses / Procedures Referred By Contac t Referred To Contact Diagnoses Breast cancer screening by mammogram Procedures Screening Mammogram Bilateral W Jeremy Elizabeth Borrego PA [address] [place] [address] Phone: tel: fax: [facility] [address] [place] [address] Referral ID Status Reason Start Date Expiration Date V isits Requested Visits Authorized [id number] Authorized 11/29/2023 12/28/2024 1 1 ENT CARE DIRECTOR Reason for Visit * Reason Comments Wellness Visit Encounter Details Date Type Department Care Team (Latest Contact Info) Description 11/29/2023 3:30 PM PATIENT CARE DIRECTOR Office Visit [facility] Family Medicine [address] [place] [address] Elizabeth Borrego PA [address] [place] [address] Encounter for routine gynecological examination with Papanicolaou smear of cervix (Primary Dx); Cervical cancer screening; Breast cancer screening by mammogram; BMI 28.0-28.9,adult Social History Tobacco Use Types Packs/Day Years [...] on file 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:22 AM PATIENT CARE DIRECTOR Gender Identity Female 06/07/2020 8:39 AM CDT Sexual Orientation Not on file 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 Not on file Not on file documented as of this encounter Last Filed Vital Signs Vital Sign Reading Time Taken Comments Blood Pressure 100/70 11/29/2023 3:57 PM PATIENT CARE DIRECTOR Pulse 65 11/29/2023 3:57 PM PATIENT CARE DIRECTOR Temperature 36.6 ??C (97.8 ??F) 11/29/2023 3:57 PM CS T Respiratory Rate - - Oxygen Saturation 96% 11/29/2023 3:57 PM PATIENT CARE DIRECTOR Inhaled Oxygen Concentration - - Weight 76.5 kg (168 lb 9.6 oz) 11/29/2023 3:57 P M PATIENT CARE DIRECTOR Height 162.6 cm (5' 4 ) 11/29/2023 3:57 PM PATIENT CARE DIRECTOR Body Mass Index 28.94 11/29/2023 3:57 PM PATIENT CARE DIRECTOR documented in this encounter Progress Notes * Elizabeth Borrego PA - 11/29/2023 3:30 PM CST Images from the original note were not included. Subjective/Objective Patient ID: Fabiola Gibson is a 58 y.o. female. Chief Complaint Wellness Visit HPI Patient presents for wellness woman Pap LMP -- Ablation in 2004 -- no bleeding since. Vasomotor symptoms - no Breast symptoms - no Vaginal symptoms - no Would like STD screening cultures. Mamm 03/2023 Colonoscopy - 11/2020--2025 Tdap - due Review of Systems See HPI Vitals: 11/29/23 1557 BP: 100/70 BP Location: Right arm Patient Position: Sitting Pulse: 65 Temp: 36.6 ??C (97.8 ??F) TempSrc: Oral SpO2: 96% Weight: 76.5 kg (168 lb 9.6 oz) Height: 162.6 cm (5' 4 ) Physical Exam Vitals and nursing note reviewed. Constitutional: Appearance: She is well-developed. HENT: Head: Normocephalic and atraumatic. Eyes: Comments: Pupils are equal Cardiovascular: Rate and Rhythm: Normal rate and regular rhythm. Heart sounds: No murmur heard. Pulmonary: Effort: Pulmonary effort is normal. Breath sounds: Normal breath sounds. Abdominal: Palpations: Abdomen is soft. Tenderness: There is no abdominal tenderness. Genitourinary: Comments: No thyromegally. Breasts symmetric without dimpling discharge discoloration or masses. No lymphadenopathy (B) Abdomen soft, non-tender. External genitalia normal appearing. IVC normal. Minimal discharge. Pap obtained. Bladder without tenderness. Uterus smooth, nontender, normal size. No masses or tenderness of adnexa or ovaries. Skin: General: Skin is warm and dry. Findings: No rash. Neurological: Mental Status: She is alert and oriented to person, place, and time. Assessment/Plan Diagnoses and all orders for this visit: Encounter for routine gynecological examination with Papanicolaou smear of cervix (Z01.419) (Primary) Assessment & Plan: Encouraged healthy lifestyle, good nutrition and exercise. Encouraged Calcium and Vitamin D and weight bearing exercise for bone health. Reviewed immunizations Reviewed age appropirate screenings. Cervical cancer screening (Z12.4) Assessment & Plan: Pap smear obtained. Reviewed screening protocol per most recent recommendations Orders: - Pap and HPV, reflex to HPV Genotypes; Future - Sureswab(R) Advanced Vaginitis Plus, TMA Vaginal; Future Breast cancer screening by mammogram (Z12.31) Assessment & Plan: Mammogram order provided Orders: - Screening Mammogram Bilateral W Jeremy; Future BMI 28.0-28.9,adult (Z68.28) Assessment & Plan: Weight/BMI is in healthy range. Continue healthy lifestyle to maintain. Other orders - HPV GENOTYPES 16 AND 18 *This note is dictated using [employer] voice recognition software, variances in spelling and vocabulary are possible and unintentional.* Elizabeth Borrego PA-C ENT CARE DIRECTOR documented in this encounter Miscellaneous Notes * Assessment & Plan Note - Elizabeth Borrego PA - 12/16/2023 9:09 PM PATIENT CARE DIRECTOR Associated Problem(s): Encounter for routine gynecological examination with Papanicolaou smear of cervix Encouraged healthy lifestyle, good nutrition and exercise. Encouraged Calcium and Vitamin D and weight bearing exercise for bone health. Reviewed immunizations Reviewed age appropirate screenings. ENT CARE DIRECTOR * Assessment & Plan Note - Elizabeth Borrego PA - 12/16/2023 9:09 PM PATIENT CARE DIRECTOR Associated Problem(s): Cervical cancer screening Pap smear obtained. Reviewed screening protocol per most recent recommendations ENT CARE DIRECTOR * Assessment & Plan Note - Elizabeth Borrego PA - 12/16/2023 9:09 PM PATIENT CARE DIRECTOR Associated Problem(s): Breast cancer screening by mammogram Mammogram order provided ENT CARE DIRECTOR * Assessment & Plan Note - Elizabeth Borrego PA - 12/16/2023 9:09 PM PATIENT CARE DIRECTOR Associated Problem(s): BMI 28.0-28.9,adult Weight/BMI is in healthy range. Continue healthy lifestyle to maintain. ENT CARE DIRECTOR documented in this encounter Plan of Treatment Scheduled Orders Name Type Priority Associated Diagnoses Orde r Schedule Screening Mammogram Bilateral W Jeremy Imaging Schedule Routine, Read Routine (OP Routine) Breast cancer screening by mammogram Expected: 11/29/2023, Expires: 11/29/2024 documented as of this encounter Procedures Procedure Name Priority Date/Time Associated Diagnosis Comments SURESWAB(R) ADVANCED VAGINITIS PLUS, TMA Routine 11/29/2023 5:23 PM PATIENT CARE DIRECTOR Cervical cancer screening PAP AND HPV, REFLEX TO HPV GENOTYPES Routine 11/29/2023 5:15 PM PATIENT CARE DIRECTOR Cervical cancer screening HPV GENOTYPES 16 AND 18 Routine 11/29/2023 5:15 PM PATIENT CARE DIRECTOR documented in this encounter Results * (ABNORMAL) Sureswab(R) Advanced Vaginitis Plus, TMA Vaginal (11/29/2023 5:23 PM PATIENT CARE DIRECTOR) SureSwab(R) ADV Bacterial vaginosis (BV), TMA POSITIVE(A) NEGATIVE [facility] Kusum species NOT DETECTED NOT DETECTED [facility] Kusum glabrata NOT DETECTED NOT DETECTED [facility] Comment: Kusum species C. albicans, C. tropicalis, C. parapsilosis, and/or C. dubliniensis can be detected, but not differentiated, in the Kusum spp. result. Trichomonas vaginalis (TV), TMA NOT DETECTED NOT DETECTED [facility] C. trachomatis RNA NOT DETECTED NOT DETECTED [facility] N. gonorrhoeae RNA NOT DETECTED NOT DETECTED [facility] Comment: For additional information, please refer to https://[email or web address].immoture.be/faq/[email or web address] (This link is being provided for information/ educational purposes only.) Vaginal 11/29/2023 5:23 PM PATIENT CARE DIRECTOR 12/01/2023 5:18 AM PATIENT CARE DIRECTOR Elizabeth ARANGO LAB MICROBIOLOGY - GENERAL ORDERABLES Final Result Performing Organization Address City/[facility]/ZIP Co de Phone Number QUEST [facility] [address] [address] [address] * HPV GENOTYPES 16 AND 18 (11/29/2023 5:15 PM PATIENT CARE DIRECTOR) Pathologist [facility] [place] HPV16 DNA, INVADER(R) Not Detected Not Detected [facility]/ [facility] [place] HPV18 DNA, INVADER(R) Not Detected Not Detected [facility]/ [facility] [place] Comment:Methodology: Real Ti me PCR 11/29/2023 5:15 PM PATIENT CARE DIRECTOR 12/01/2023 11:09 AM PATIENT CARE DIRECTOR Elizabeth ARANGO LAB BLOOD ORDERABLES Final Result Performing Organization Address [facility] de Phone Number [facility] [place] [address] [address] [place] [address] * (ABNORMAL) Pap and HPV, reflex to HPV Genotypes (11/29/2023 5:15 PM PATIENT CARE DIRECTOR) Pathologist [facility] [place] [facility]IN[facility] INFORMATION: [facility] Comment:CERVICAL CANCER SCRE ENING LMP [facility] Comment:MENOPAUSE Previous Pap [facility] Comment:NONE GIVEN Prev. Bx [facility] Comment:NONE GIVEN SOURCE: [facility] Comment:Cervix, Endocervix Pap, specimen adequacy [facility] Comment: Satisfactory for evaluation. Endocervical/transformation zone component present. HPV interp [facility] Comment: Cytology Results: Negative for intraepithelial lesion or malignancy. COMMENTS [facility] Comment: This Pap test has been evaluated with computer assisted technology. Parts Order And Stock Clerk [facility] Comment: KMS, CT(ASCP) CT Screening location: [place] [address] [address] [facility] [place] Comment: DE [place] ROSA, CT(ASCP) CT Screening location: [facility] Administration [place] [address] [facility] [place] Comment: EXPLANATORY NOTE: The Pap is a [...] High Risk E6/E7 Detected (A) NOT DETECTED Rashmi [facility] Comment: Detected One or more High Risk HPV types (16,18,31,33, 35,39,45,51,52,56,58,59,66,68) was detected. Methodology: Real Time PCR ? Thin prep 11/29/2023 5:15 PM PATIENT CARE DIRECTOR 12/01/2023 11:09 AM PATIENT CARE DIRECTOR Elizabeth ARANGO LAB CYTOLOGY ORDERABLES Fi nal Result [place] [address] [place] [address] Rashmi [facility] [address] [place] [address] documented in this encounter Visit Diagnoses Diagnosis Encounter for routine gynecological examination with Papanicolaou smear of cervix- Primary Cervical cancer screening Screening for malignant neoplasm of the cervix Breast cancer screening by mammogram BMI 28.0-28.9,adult documented in this encounter Care Teams Tandem Operator Relationship Specialty Start Date End Date Elizabeth Borrego PA [address] [place] [address] PCP - General Internal Medicine 09/28/23 Luann Lawrence, RISK CONTROL PRODUCT LIABILITY DIRECTOR Nurse Practitioner Nurse Practitioner 01/06/19 Adarsh Tuttle MD [address] [place] [address] Consulting Physician Gastroenterology 02/22/19 Sebastien Martinez DO [address] [place] [address] [id number] Medical Oncologist/Infrastructure Software Engineer Hematology and Oncology 02/22/19 Guru Winters DO [address] [place] [address] [id number] Consulting Physician Gastroenterology 02/22/19 Gato Abrams MD [address] [place] [address] [id number] Surgeon Surgical Oncology 09/07/19 Marina Rosales MD [address] [place] [address] [id number] Consulting Physician General Surgery 03/24/21 documented as of this encounter
--- OUTSIDE RECORDS SUMMARY | 2024-10-04 02:57 | XMS_ITS | Encounter Summary ---
Author Organization [facility] Address [address] [address] Care Team Providers Care Pompom Maker Name Role Phone Luann Lawrence NP Unavailable Adarsh Tuttle MD Unavailable [phone] Sebastien Martinez DO Unavailable [phone] Guru Winters DO Unavailable [phone] Gato Abrams MD Unavailable [phone] Elizabeth Borrego Primary Care Provider [phone] Marina Rosales MD Unavailable [phone] Reason for Referral * Consultation (Routine) - Closed Specialty Diagnoses / Procedures Referred By Clemencia mendez Referred To Contact Sleep Medicine Diagnoses Apneic episode Elizabeth Borrego PA [address] [place] [address] Phone: tel: fax: Amari Flores MD [address] [facility] [address] [place] [address] Phone: tel: fax: Referral ID Status Reason Start Date Expiration Date V isits Requested Visits Authorized [id number] Closed Specialty Services Required 04/27/2023 05/26/2024 1 1 Question Answer Please select the performing region: [facility] [[id number]] Please select the performing department: [facility] [[id number]] To provider: AMARI FLORES [[id number]] # of visits: 1 Comments Anesthesia instructed her to followup for sleep study as apnea noted during procedure. 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 Not on file Not on file documented as of this encounter Plan of Treatment Scheduled Referrals Name Type Priority Associated Diagnoses Order Schedule Ambulatory referral to Sleep Medicine Outpatient Referral Routine Apneic episode Expected: 05/11/2023 (Approximate), Expires: 04/27/2024 documented as of this encounter Visit Diagnoses Diagnosis Apneic episode- Primary documented in this encounter Care Teams Pompom Maker Relationship Specialty Start Date End Date Elizabeth Borrego PA [address] [place] [address] PCP - General Internal Medicine 03/25/20 09/27/23 Luann Lawrence, ANUP Nurse Practitioner Nurse Practitioner 01/06/19 Adarsh Tuttle MD [address] [place] [address] Consulting Physician Gastroenterology 02/22/19 Sebastien Martinez DO [address] [place] [address] Medical Oncologist/Marble Supervisor Hematology and Oncology 02/22/19 Guru Winters DO [address] [place] [address] Consulting Physician Gastroenterology 02/22/19 Gato Abrams MD [address] [place] [address] Surgeon Surgical Oncology 09/07/19 Marina Rosales MD [address] [place] [address] Consulting Physician General Surgery 03/24/21 documented as of this encounter
--- OUTSIDE RECORDS SUMMARY | 2024-10-04 02:57 | XMS_ITS | Encounter Summary ---
Author Organization [facility] Healthcare Address [address] [place] [address] Care Team Providers Care Errand Runner Name Role Phone Luann Lawrence NP Unavailable [phone] Adarsh Tuttle MD Unavailable [phone] Sebastien Martinez DO Unavailable [phone] Guru Winters DO Unavailable [phone] Gato Abrams MD Unavailable [phone] Marina Rosales MD Unavailable Elizabeth Borrego Primary Care Provider [phone] Reason for Referral * Cardiology (Routine) - Pending Review Specialty Diagnoses / Procedures Referred By Contac t Referred To Contact Diagnoses LBBB (left bundle branch block) Procedures ECG 12 lead Rowdy Marroquin MD Phone: tel: fax: [facility] Referral ID Status Reason Start Date Expiration Date V isits Requested Visits Authorized [id number] Pending Review 09/30/2023 10/29/2024 1 1 ER AND CELLOPHANER MACHINE Reason for Visit * Reason Comments Follow-up 1 yr f/u Palpitations LBBB Encounter Details Date Type Department Care Team (Latest Contact Info) Description 09/30/2023 8:00 AM BANDER AND CELLOPHANER MACHINE Office Visit [facility] Cardiology [address] [facility] [address] [place] [address] Rowdy Marroquin MD [address] [facility] [address] [place] [id number] HTN (hypertension), benign (Primary Dx); LBBB (left bundle branch block); Chronic fatigue; Palpitations; Mixed hyperlipidemia Social History Tobacco Use Types Packs/Day Years [...] on file 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:22 AM BANDER AND CELLOPHANER MACHINE Gender Identity Female 06/07/2020 8:39 AM CDT Sexual Orientation Not on file 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 Not on file Not on file Not on file documented as of this encounter Last Filed Vital Signs Vital Sign Reading Time Taken Comments Blood Pressure 98/62 09/30/2023 8:06 AM BANDER AND CELLOPHANER MACHINE Pulse 80 09/30/2023 8:06 AM BANDER AND CELLOPHANER MACHINE Temperature - - Respiratory Rate - - Oxygen Saturation 97% 09/30/2023 8:06 AM BANDER AND CELLOPHANER MACHINE Inhaled Oxygen Concentration - - Weight 77.7 kg (171 lb 3.2 oz) 09/30/2023 8:06 A M BANDER AND CELLOPHANER MACHINE Height 162.6 cm (5' 4 ) 09/30/2023 8:06 AM BANDER AND CELLOPHANER MACHINE Body Mass Index 29.39 09/30/2023 8:06 AM BANDER AND CELLOPHANER MACHINE documented in this encounter Progress Notes * Rowdy Marroquin MD - 09/30/2023 8:00 AM [facility]ST [facility] DATE OF VISIT: 09/30/2023 CHIEF COMPLAINT Chief Complaint Patient presents with Follow-up 1 yr f/u Palpitations LBBB ASSESSMENT Diagnoses and all orders for this visit: HTN (hypertension), benign (Primary) LBBB (left bundle branch block) - ECG 12 lead Chronic fatigue Palpitations Mixed hyperlipidemia - POCT lipid panel PLAN/RECOMMENDATIONS 1. LBBB chronic. Follow LBBB QRS duration by ECG. 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 No h/o embolic events/CVA. Clinical observation for now. -2D Echo 03/2023 EF 60% mild LVH mild MR/TR. Discussed results. Stable at this time. Discussed potential for LV dysfunction with progressive QRS widening due to dyssynchrony. All questions answered toher satisfaction. 2. BP controlled, albeit rather low, goal <140/90mmHg. Monitor BP on routine basis. Call with readings. Continue consistent cardiovascular exercise, weight loss, medication compliance, and low-sodium diet. -On Valsartan/HCTZ 80/12.5mg daily which was reduced due to lower BP tolerating well now. -we discussed at length if BP she checks at home remains relatively hypotensive may recommend discontinuation of hydrochlorothiazide with continuation of losartan 80 mg daily alone and observe blood pressure response. She agrees. Recommendation to follow. 3. Lipids personally reviewed from 09/30/23 LDL 120, not ideally controlled, goal LDL<100. Continue Pravastatin 40mg qhs and lifestyle modification. Recheck FLP in 3-4 months. 4. Lifestyle modification counseling performed. Encouraged consistent weight loss, exercise, reduction in caloric intake. 5. Follow up with Dr. Martinez as scheduled. -12 lead EKG today personally reviewed and discussed sinus rhythm 61 beats per minute PA 146 milliseconds QRS 150 milliseconds QT corrected 451 milliseconds, LBBB, abnormal ECG. QRS duration stable over the past few years. Over 50% of this visit counseling LBBB, HTN, lipids, medications, lifestyle modification. Follow up in the office in 1 year or sooner as needed. Thank you for allowing me the privilege of participating in the care this very pleasant patient. Please do not hesitate to contact me with any additional questions or concerns. DANNY Gibson is a 58 y.o. 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 02/13/20 Initial visit: Patient presents today on referral for further evaluation of left bundle-branch block which she was1st told about last year in relation to workup for her carcinoid tumor of the stomach. She states that workup began due to unexplained anemia finally discovered on the upper endoscopy. She underwent partial gastrectomy at [facility] without complication. She states over 20 years ago she had seen a artificial insemination technician after being told she had an irregular heartbeat for which she wore a Holter monitor and wasplaced on atenolol. She took this medication for several years but does not recall a specific diagnosis. She admits she did not follow-up with a artificial insemination technician after seeing him initially. She has now [...] has not had a workup with the left bundle-branch block noted on her EKG in the past and is now referred in this regard. She has no known history of myocardial infarction, CAD, stroke, bleeding complications, DVT and/or PE. She has beentreated for seronegative rheumatoid arthritis with hydroxychloroquine for many years. She has been told at times her heart rate has been slow but this has only been mentioned without further evaluation. She denies significant edema, orthopnea or PND. Preoperative STOP Bang in 2019 suggestive of sleep apnea. 03/08/20 This was a telemedicine visit -Saw Oncologist today CT spot on pancreas, PET scan at [facility] for clarification and if present further workup and possible biopsy. Still feeling well no CP or SOB, no new limitations. 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 No focal weakness,edema, palps, near syncope or syncope. She is still dealing with the news from earlier today with Dr. Martinez. She is still exercising without limitation. 10/01/20 COVID end of Oct tested + for 7 weeks felt very tired no SOB, palps or CP. Feeling better, was off work for over 2 weeks. No dizziness or falls. On Sandostatin from Dr. Desai, q3 imaging of pancreatic mass, doing ok otherwise for now. 09/23/21 HAd a spell over summer near syncope related to low blood sugar feels weak, anxious attributed to injection related to pancreatic tumor and has been told can occur. Still gets lesser sxs she attributes to her sugars has a glucometer once she eats she feels fine. No other issues. Monthly injections with oncology and labs. No assoc CP, SOB per se. No syncope. Maybe once over past year briefpalps but not really an issue. Meds unchanged Sandostatin reduced. 10/06/22 On Jul 17 day prior to her daughter's wedding from 5A-8A heart felt anxious, jittery feeling felt fine otherwise. Asked her RN daughter to come over and listen and it resolved. No CP, dizziness, palps falls or syncope. Plaquenil just recently lowered. 09/30/23 Doing ok, had a couple of episodes of fluttering last in July lasted 30-45 minutes wokeher up. A lot of stress currently living with her daughter. Minimal intermittent flip flops. No CP or SOB, syncope or dizziness. MEDICAL HISTORY Past Medical History: Diagnosis Date Anemia Autoimmune disease (CMS/HCC) (HCC) Cancer (CMS/HCC) (HCC) carcinode tumors Carcinoid tumor of stomach Colon polyp Depression Heart murmur Hyperlipidemia Hypertension Left bundle branch block Rheumatoid arthritis (HCC) Urinary tract infection years ago Social History Tobacco Use Smoking status: Former Smoker Packs/day: 1.00 Years: 2.00 Pack years: 2.00 Types: Cigarettes Start date: 1996 Quit date: 1998 Years since quittin.9 Smokeless tobacco: Never Used Vaping Use Vaping Use: Never used Substance Use Topics Alcohol use: Yes Alcohol/week: 2.0 - 3.0 standard drinks Types: 2 - 3 Cans of beer per week Drug use: Not Currently Types: Alcohol Family History Problem Relation Age of Onset Dementia Mother Coronary artery disease Mother s/p CABG Emphysema Father Heart failure Father Other (Congestive Heart Failure) Father No Known Problems Sister Heart attack Brother Ovarian cancer Mother's Sister Colon cancer Mother's Brother Cancer Maternal Grandmother Anesthesia problems Neg Hx MEDICATIONS HOME MEDICATIONS : ascorbic acid (vitamin C) 1,000 mg tablet buPROPion XL (WELLBUTRIN XL) 150 mg 24 hr tablet cholecalciferol (VITAMIN D-3) 1,000 unit capsule multivitamin capsule pravastatin (PRAVACHOL) 40 mg tablet valsartan-hydroCHLOROthiazide (DIOVAN-HCT) 80-12.5 mg per tablet escitalopram (LEXAPRO) 10 mg tablet hydroxychloroquine (PLAQUENIL) 200 mg tablet syringe with needle (Syringe 3cc/25Gx1 ) 3 mL 25 gauge x 1 syringe ALLERGIES No Known Allergies REVIEW OF SYSTEMS Review of Systems Constitutional: Positive for weight gain. Negative for decreased appetite, diaphoresis, fever, malaise/fatigue, night sweats and weight loss. HENT: Negative for hearing loss and nosebleeds. Eyes: Negative for blurred vision and pain. Cardiovascular: Positive for palpitations. Negative for chest pain, claudication, dyspnea on exertion, irregular heartbeat, leg swelling, near- syncope, orthopnea and syncope. Respiratory: Negative for cough, hemoptysis, shortness of breath, snoring and wheezing. Endocrine: Negative for cold intolerance and heat intolerance. Hematologic/Lymphatic: Negative for bleeding problem. Does not bruise/bleed easily. Skin: Negative for color change, itching, rash and suspicious lesions. Musculoskeletal: Positive for arthritis and joint pain. Negative for falls, muscle weakness and myalgias. Gastrointestinal: Negative for abdominal pain, heartburn, hematemesis, melena and nausea. Genitourinary: Negative for dysuria, hematuria and nocturia. Neurological: Negative for excessive daytime sleepiness, dizziness, focal weakness, headaches, light-headedness, loss of balance and weakness. Psychiatric/Behavioral: Negative for altered mental status, depression and memory loss. The patientis not nervous/anxious. Allergic/Immunologic: Negative for environmental allergies. All other systems reviewed and are negative. PHYSICAL EXAM Vitals BP 98/62 (BP Location: Left arm, Patient Position: Sitting) Pulse 80 Ht 162.6 cm (5' 4 ) Wt 77.7 kg (171 lb 3.2 oz) SpO2 97% BMI 29.39 kg/m?? Weight: 77.7 kg (171 lb 3.2 oz) Height: 162.6 cm (5' 4 ) Body mass index is 29.39 kg/m??. Physical Exam Vitals reviewed. Constitutional: General: She is not in acute distress. Appearance: Normal appearance. She is well-developed. She is not diaphoretic. Comments: Wearing a mask HENT: Head: Normocephalic and atraumatic. Right Ear: External ear normal. Left Ear: External ear normal. Nose: Nose normal. Mouth/Throat: Mouth: Mucous membranes are moist. Dentition: Normal dentition. Eyes: General: Lids are normal. No scleral icterus. Extraocular Movements: Extraocular movements intact. Conjunctiva/sclera: Conjunctivae normal. Neck: Thyroid: No thyromegaly. Vascular: Normal carotid pulses. No carotid bruit, hepatojugular reflux or JVD. Trachea: No tracheal deviation. Cardiovascular: Rate and Rhythm: Normal rate and regular rhythm. Pulses: Normal pulses and intact distal pulses. No decreased pulses. Heart sounds: Normal heart sounds, S1 normal and S2 normal. Heart sounds not distant. No murmur heard. No friction rub. No gallop. No S3 or S4 sounds. Pulmonary: Effort: Pulmonary effort is normal. No respiratory distress. Breath sounds: Normal breath sounds. No wheezing or rales. Chest: Chest wall: No tenderness. Abdominal: General: Bowel sounds are normal. There is no distension. Palpations: Abdomen is soft. There is no mass. Tenderness: There is no abdominal tenderness. There is no guarding or rebound. Musculoskeletal: General: No tenderness or deformity. Normal range of motion. Cervical back: Normal range of motion and neck supple. Right lower leg: No edema. Left lower leg: No edema. Lymphadenopathy: Cervical: No cervical adenopathy. Skin: General: Skin is warm and dry. Coloration: Skin is not pale. Findings: No ecchymosis, erythema, petechiae or rash. Nails: There is no clubbing. Neurological: General: No focal deficit present. Mental Status: She is alert and oriented to person, place, and time. Mental status is at baseline. Cranial Nerves: No cranial nerve deficit. Motor: No abnormal muscle tone. Coordination: Coordination normal. Psychiatric: Mood and Affect: Mood normal. Speech: Speech normal. Behavior: Behavior normal. Behavior is cooperative. Thought Content: Thought content normal. Judgment: Judgment normal. LABS AND OTHER DIAGNOSTIC TESTS Lab Results Component Value Date WBC 4.2 03/02/2023 HGB 11.4 (L) 03/02/2023 HCT 35.0 (L) 03/02/2023 CREATININE 0.81 03/02/2023 POTASSIUM 4.1 03/02/2023 BUNSER 14 03/02/2023 Results for orders placed or performed in visit on 03/02/23 Urinalysis reflex to microscopic and culture Urine Specimen: Urine Result Value Ref Range Color, ur Yellow Yellow Clarity, ur Clear Clear Specific gravity, ur 1.013 1.003 - 1.030 pH, urine 6.5 Protein, ur ql Negative Negative Glucose, ur ql Negative Negative Ketones, ur Negative Negative Bilirubin, ur Negative Negative Blood, ur Negative Negative Urobilinogen, ur <2.0 <2.0 mg/dL Nitrite, ur Negative Negative Leukocyte esterase, ur 2+ (A) Negative UA reflex comment Reflex to microscopic UA will be performed. CRP (acute phase) Result Value Ref Range CRP <3.0 <=10.0 mg/L CBC with auto differential Result Value Ref Range WBC 4.2 3.8 - 9.9 K/cumm Hgb 11.4 (L) 11.9 - 15.5 g/dL Hct 35.0 (L) 35.6 - 45.5 % Plt 244 150 - 400 K/cumm MPV 9.3 9.1 - 12.3 fL RBC 3.91 3.90 - 5.20 M/cumm MCV 89.5 81.3 - 96.4 fL MCH 29.2 27.1 - 33.3 pg MCHC 32.6 32.3 - 35.7 g/dL RDW CV 12.1 11.1 - 14.9 % RDW SD 39.4 35.7 - 48.1 fL NRBC abs 0.00 0.00 - 0.01 K/cumm Erythrocyte sedimentation rate Result Value Ref Range Erythrocyte sedimentation rate 15 1 - 30 mm/hr Comprehensive metabolic panel Result Value Ref Range Sodium 143 135 - 145 mmol/L Potassium, pl 4.1 3.3 - 4.9 mmol/L Chloride 105 97 - 110 mmol/L CO2 29 22 - 32 mmol/L Anion gap 9 2 - 15 mmol/L BUN 14 8 - 25 mg/dL Creatinine 0.81 0.60 - 1.10 mg/dL Glucose 91 70 - 199 mg/dL Calcium 9.4 8.5 - 10.3 mg/dL Bilirubin, total 0.2 0.1 - 1.2 mg/dL Protein, pl 6.8 6.5 - 8.5 g/dL Albumin 4.4 3.5 - 5.0 g/dL Alk phos 72 40 - 130 Units/L ALT 27 7 - 45 Units/L AST 28 10 - 45 Units/L Differential, auto Result Value Ref Range Neutrophil abs 2.2 1.7 - 6.5 K/cumm Imm gran abs 0.0 0.0 - 0.1 K/cumm Lymphocyte abs 1.3 0.8 - 3.3 K/cumm Monocyte abs 0.3 0.2 - 0.8 K/cumm Eosinophil abs 0.3 0.0 - 0.5 K/cumm Basophil abs 0.0 0.0 - 0.1 K/cumm Neutrophil pct 52.6 % Imm gran pct 0.2 % Lymphocyte pct 31.7 % Monocyte pct 7.4 % Eosinophil pct 7.4 % Basophil pct 0.7 % Urinalysis, microscopic only Result Value Ref Range WBC, ur 0-5 0 - 5 /HPF RBC, ur 0-2 0 - 2 /HPF Epithelial cells, squamous, ur 1-5 0 - 5 /HPF Mucous, ur Present (A) Culture Reflex Comment Reflex conditions for urine culture (WBC >10) not met. eGFR Result Value Ref Range eGFR 85 mL/min/1.73 m2 02/21/20 2D Echo: EF 60-65 nl LV [...] regurgitation. Mild tricuspid regurgitation. Normal sinus rhythm. Personally reviewed EKG, electronic medical record, and bloodwork/lipids. Antonia Marroquin MD, [facility] This note is dictated and transcribed using [email or web address] Direct Software. Centrifugal Spinner variancesmay occur. Despite proofreading, typographical errors may occur. ER AND CELLOPHANER MACHINE documented in this encounter Plan of Treatment Not on file documented as of this encounter Procedures Procedure Name Priority Date/Time Associated Diagnosis Comments POCT LIPID PANEL Routine 09/30/2023 8:09 AM BANDER AND CELLOPHANER MACHINE Mixed hyperlipidemia ECG 12-LEAD Routine 09/30/2023 LBBB (left bundle branch block) documented in this encounter Results * POCT lipid panel (09/30/2023 8:09 AM BANDER AND CELLOPHANER MACHINE) Cholesterol, POC 194 mg/dL Comment:GLU = 89 HDL, POC 32 mg/dL Triglycerides, POC 213 mg/dL LDL Cholesterol POC 120 mg/dL Chol/HDL Ratio, POC 3.8 Non-HDL Cholesterol, POC 162 mg/dL Cholesterol Total, POC 194 mg/dL Capillary blood 09/30/2023 8 :09 AM BANDER AND CELLOPHANER MACHINE Rowdy Marroquin MD POINT OF CARE TEST ORDER CARLA Final Result * ECG 12 lead (09/30/2023) us Rowdy Marroquin MD ECG ORDERABLES Edited R esult - Final documented in this encounter Visit Diagnoses Diagnosis HTN (hypertension), benign- Primary Essential hypertension, benign LBBB (left bundle branch block) Other left bundle branch block Chronic fatigue Other malaise and fatigue Palpitations Mixed hyperlipidemia documented in this encounter Discontinued Medications Medication Sig Discontinue Reason Start Date End Da te escitalopram (LEXAPRO) 10 mg tabletIndications: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 Medication Sig Dispense Quantity Refills Last Filled Start D ate End Date ascorbic acid (vitamin C) 1,000 mg tablet 07/18/2023 04/03/2024 added in this encounter Care Teams Errand Runner Relationship Specialty Start Date End Date Elizabeth Borrego PA [address] [place], [place] [id number] PCP - General Internal Medicine 09/28/23 Luann Lawrence, ANUP Nurse Practitioner Nurse Practitioner 01/06/19 Adarsh Tuttle MD [address] [facility] [address] [place] [address] Consulting Physician Gastroenterology 02/22/19 Sebastien Martinez DO [address] [place] [id number] Medical Oncologist/Exceptional Needs Teacher Hematology and Oncology 02/22/19 Guru Winters DO [address] [address] Consulting Physician Gastroenterology 02/22/19 Gato Abrams MD [address] [place] [address] Surgeon Surgical Oncology 09/07/19 Marina Rosales MD [address] [address] Consulting Physician General Surgery 03/24/21 documented as of this encounter
--- OUTSIDE RECORDS SUMMARY | 2024-10-04 02:57 | XMS_ITS | Encounter Summary ---
Author Organization [facility] Healthcare Address [address] [place] [address] Care Team Providers Care Inventory Controller Name Role Phone Luann Lawrence NP Unavailable [phone] Adarsh Tuttle MD Unavailable [phone] Sebastien Martinez DO Unavailable [phone] Guru Winters DO Unavailable [phone] Gato Abrams MD Unavailable [phone] Elizabeth Borrego Primary Care Provider [phone] Marina Rosales MD Unavailable [phone] Reason for Visit * Auth/Cert (Routine) Specialty Diagnoses / Procedures Referred By Contac t Referred To Contact Diagnoses Malignant carcinoid tumor of the stomach (HCC) Malignant carcinoid tumor of the stomach (CMS/HCC) (HCC) [C7A.092] Procedures EUS Referral ID Status Reason Start Date Expiration Date Visits Re quested Visits Authorized [id number] 1 1 Encounter Details Date Type Department Care Team (Late st Contact Info) Description 04/26/2023 7:35 AM CDT Anesthesia Event [facility] [address] [place] [address] Sebastien Jiménez, DO [address] [place], [place] [id number] Marylou Low, VAZQUEZ [address] [place] [address] Anesthesia Record Procedure Summary Procedure Name Responsible Anesthesiologist Anesthesia Start Time Anesthesia Stop Time ESOPHAGOGASTRODUODENOSCOPY ULTRASOUND EXAM LIMITED Sebastien Jiménez DO 04/26/23 0735 04/26/23 0817 Events Date Time Event Comment 04/26/2023 0716 0735 An Start 0735 In Room 0738 An Start Data 0740 Patient Positioned Laterally 0740 Bite Block Placed 0740 An Induction The patient was reevaluated immediately before moderate or deep sedation use and before anesthesia induction. 0740 Anesthesia Ready 0744 Proc Start 0804 Proc Fin 0808 an stop data 0810 Out of Room 0817 Handoff to RN I completed my handoff [...] Patient disposition at the time of handoff: No value filed. 0817 An Stop 0818 Release from care 0818 Release from care Meds Name Total lidocaine (cardiac) syringe 2 % 5 mL propofol 540 mg LR 900 mL * Agents Name O2 * Blood No blood administrations on file. Lines, Drains, and Airways Type Details Placement Removal RETIRED Surgical Site Abdomen; 09/19/24 (Retired LDA, Removed/Completed by Zeptor with LDA Utility); 1213 (Retired LDA, Removed/Completed by Zeptor with LDA Utility) 05/13/20 1018 by 09/19/24 1213 by Discharge Provider, Automatic RETIRED Surgical Site 08/23/19; 1434; Abdomen; SURGICAL TROCAR ACCESS SITES X5; 09/19/24 (Retired LDA, Removed/Completed by Zeptor with LDA Utility); 1213 (Retired LDA, Removed/Completed by Zeptor with LDA Utility) 08/23/19 1434 by Christoph Parker RN 09/19/24 1213 by Discharge Provider, Automatic Peripheral IV Placement Date: 04/05/23; Placement Time: 1357; Catheter Size: 20 G; Orientation: Right; Location: Antecubital; Site Prep: Chlorhexidine; Inserted by: Rajat Blakely RN; Insertion Attempts: 1; Patient Tolerance: Tolerated well; Removal Date: 04/26/23; Removal Time: 72804/05/23 1357 by Saumya Blakely RN 04/26/23728 by Barbra Douglass RN Peripheral IV Placement Date: 04/26/23; Placement Time: 719; Catheter Size: 20 G; Orientation: Anterior, Right; Location: Forearm; Site Prep: Alcohol; Technique: Anatomical landmarks; Inserted by: Barbra Rolon RN; Insertion Attempts: 1; Patient Tolerance: Tolerated well; Removal Date: 04/26/23; Removal Time: 84104/26/23719 by Barbra Douglass RN 04/26/23841 by Kimber Savage RN documented in this encounter Social History [...] on file 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:22 AM [employer] Gender Identity Female 06/07/2020 8:39 AM CDT Sexual Orientation Not on file 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 Not on file Not on file documented as of this encounter OR Notes * Anesthesia Postprocedure Evaluation - Marylou Low CRNA - 04/26/2023 8:18 AM CDT Patient: Fabiola Gibson Procedure Summary Date: 04/26/23 Room / Location: [facility] Anesthesia Start: 734 Anesthesia Stop: 816 Procedure: ESOPHAGOGASTRODUODENOSCOPY ULTRASOUND EXAM LIMITED Diagnosis: Malignant carcinoid tumor of the stomach (HCC) (Malignant carcinoid tumor of the stomach (CMS/HCC) (HCC) [C7A.092]) Providers: Adarsh Tuttle MD Responsible Provider: Sebastien Jiménez DO Anesthesia Type: general TIVA ASA Status: 2 Anesthesia Type: general TIVA Last vitals BP 104/65 Pulse 61 Temp 36.4 ??C (97.6 ??F) (Temporal) Resp 16 SpO2 98% Anesthesia Post Evaluation Patient location: GI recovery area. 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 * Anesthesia Preprocedure Evaluation - Sebastien Jiménez DO - 04/26/2023 7:17 AM CDT Images from the original note were not included. Anesthesia Evaluation Fabiola Gibson is a 57 y.o. female Procedure(s): EUS Pre-Op Diagnosis Codes: * Malignant carcinoid tumor of the stomach (HCC) [C7A.092] HISTORY Past Medical History Cardiovascular Comments: 2021: Normal left ventricular systolic function. No focal [...] Mild tricuspid regurgitation. Normal sinus rhythm. 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 Annual physical exam Other fatigue Breast cancer screening by mammogram Gastroesophageal reflux disease without esophagitis Erosive osteoarthritis Moderate episode of recurrent major depressive disorder (HCC) Submucosal lesion of stomach Fever COVID-19 Mixed hyperlipidemia Swelling of joint, knee, right Synovial cyst of right popliteal space Effusion of right knee BMI 29.0-29.9,adult Past Medical History: Diagnosis Date Anemia Autoimmune [...] Last Dose Start Date End Date Provider buPROPion XL (WELLBUTRIN XL) 150 mg 24 hr tablet 04/25/2023 03/04/23 -- Elizabeth Borrego PA Take 1 tablet (150 mg total) by mouth every morning Notes: Requesting 1 year supply cholecalciferol (VITAMIN D-3) 1,000 unit capsule 04/25/2023 -- -- Pedro Garcia MD escitalopram (LEXAPRO) 10 mg tablet 04/25/2023 03/04/23 -- Elizabeth Borrego PA Take 1 tablet (10 mg total) by mouth daily hydroxychloroquine (PLAQUENIL) 200 mg tablet 04/25/2023 01/30/19 -- ProviderPedro MD multivitamin capsule Past Month -- -- Pedro Garcia MD pravastatin (PRAVACHOL) 40 mg tablet 04/25/2023 03/04/23 -- Elizabeth Borrego PA Take 1 tablet (40 mg total) by mouth every morning Notes: Requesting 1 year supply syringe with needle (Syringe 3cc/25Gx1 ) 3 mL 25 gauge x 1 syringe -- 02/18/22 -- Sebastien Martinez, DO 1 Syringe every 30 (thirty) days For use with monthly IM Vitamin B12 injections valsartan-hydroCHLOROthiazide (DIOVAN-HCT) 80-12.5 mg per tablet -- 03/04/23 -- Elizabeth Borrego PA Take 1 tablet by mouth daily Notes: Requesting 1 year supply Flag for Review Taking? Last Dose Start Date End Date Provider cyanocobalamin (Vitamin B-12) 1,000 mcg/mL injection -- 02/16/22 -- Sebastien Martinez, INJECT 1 ML INTRAMUSCULARLY INSTRUCTED EVERY 30 DAYS (DISCARD 28 DAYS AFTER FIRST USE) No current facility-administered medications for this encounter. Social History Tobacco Use Smoking Status Former Packs/day: 1.00 Years: 2.00 Pack years: 2.00 Types: Cigarettes Start date: 1996 Quit date: 1998 Years since quittin.5 Smokeless Tobacco Never Alcohol Use: Heavy Drinker (04/26/2023) AUDIT-C Frequency of Alcohol Consumption: 2-3 times a week Average Number of Drinks: 3 or 4 Frequency of Binge Drinking: Monthly Substance and Sexual Activity Drug Use Not Currently Types: Alcohol Family History Problem [...] and allergies reviewed. Attestation: This PAT evaluation 04/26/2023. Airway Exam: Mallampati: II Cervical ROM: FROM TM distance: normal Cardiovascular Exam: Rate: regular Rhythm: regular Negative for Murmur Pulmonary Exam: LCTA, bilat EENT Exam: trachea midline Dental Exam: Appears intact Current state: Patient's current state is cooperative and interactive. Anesthesia Plan ASA 2 My patient is approved for the Anesthesia Controlled Medication protocol when under care of a DRAW BENCH OPERATOR Planned anesthesia: General TIVA Induction: Induction: intravenous. Postoperative Plan: No plan for postoperative opioid use. Patient's planned disposition post procedure is Outpatient. Informed Consent: Anesthesia plan and risks discussed with patient. Consent and Attending signature: I and/or my designee have discussed the anesthesia plan, benefits, possible alternatives, parental presence at time of induction (if indicated), and clinically relevant risks that may include dental injury, unintentional awareness, and/or other complications. The patient and/or parent/legal guardian understand, and agree to proceed. All questions answered. documented in this encounter Miscellaneous Notes * Addendum Note - Sebastien Jiménez DO - 04/26/2023 8:19 AM CDT Addendum created 04/26/23 0819 by Sebastien Jiménez DO Clinical Note Signed documented in this encounter Plan of Treatment Not on file documented as of this encounter Visit Diagnoses Not on filedocumented in this encounter Administered Medications Inactive Administered Medications - up to 3 most recent administrations Medication Order MAR Action Action Date Dose Rate Site Lactated Ringer's (LR) infusion intravenous, Continuous PRN, Starting on Wed04/26/23 at 0735, Anesthesia Intra-op New Bag 04/26/2023 7:35 AM CDT lidocaine (cardiac) (XYLOCAINE) preservative free injection intravenous, As needed, Starting on Wed04/26/23 at 0740, Anesthesia Intra-op, Indications: Ventricular ArrhythmiasIndications:Ventricular Arrhythmias Given 04/26/2023 7:40 AM CDT 5 mL propofoL (DIPRIVAN) 10 mg/mL IV intravenous, As needed, Starting on Wed04/26/23 at 0740, Anesthesia Intra-op Given 04/26/2023 7:40 AM CDT 540 mg documented in this encounter Care Teams Inventory Controller Relationship Specialty Start Date End Date Elizabeth Borrego PA [address] [facility] [address] [place], [place] [id number] PCP - General Internal Medicine 03/25/20 09/27/23 Luann Lawrence NP Nurse Practitioner Nurse Practitioner 01/06/19 Adarsh Tuttle MD [address] [facility] [address] [place] [address] Consulting Physician Gastroenterology 02/22/19 Sebastien Martinez DO [address] [id number] Medical Oncologist/Youtuber Hematology and Oncology 02/22/19 Guru Winters DO [address] [address] Consulting Physician Gastroenterology 02/22/19 Gato Abrams MD [address] [facility] [address] [place] [address] Surgeon Surgical Oncology 09/07/19 Marina Rosales MD [address] [facility] [address] [place] [address] Consulting Physician General Surgery 03/24/21 documented as of this encounter
--- OUTSIDE RECORDS SUMMARY | 2024-10-04 02:57 | XMS_ITS | Encounter Summary ---
Author Organization [facility] Healthcare Address [address] [place] [address] Care Team Providers Care Deburrer Machine Name Role Phone Luann Lawrence NP Unavailable [phone] Adarsh Tuttle MD Unavailable [phone] Sebastien Martinez DO Unavailable [phone] Guru Winters DO Unavailable [phone] Gato Abrams MD Unavailable Elizabeth Borrego Primary Care Provider [phone] Marina Rosales MD Unavailable [phone] Encounter Details Date Type Department Care Team (Late st Contact Info) Description 08/19/2023 Telephone [facility] [address] [place] [address] Amari Flores MD [address] [facility] [address] [address] Social History Tobacco Use Types Packs/Day Years [...] on file 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 Per [employer] message on 07/29/23 okay to send order to discontinue CPAP AMA. 08/19> Order faxed to [facility]- * Telephone Encounter - Saulo Asencio - 08/19/2023 3:05 PM CDT Padmini from [facility] asked if a discontinued order for Tinas cpap machine be faxed to [phone] documented in this encounter Plan of Treatment Not on file documented as of this encounter Visit Diagnoses Diagnosis KATIA (obstructive sleep apnea)- Primary Obstructive sleep apnea (adult) (pediatric) documented in this encounter Orders General Supply Count Last Ordered Date First Or dered Date DISCONTINUE DME 1 08/19/2023 documented in this encounter Care Teams Deburrer Machine Relationship Specialty Start Date End Date Elizabeth Borrego PA [address] [facility] [email or web address] [address] [place] [address] PCP - General Internal Medicine 03/25/20 09/27/23 Luann Lawrence NP Nurse Practitioner Nurse Practitioner 01/06/19 Adarsh Tuttle MD [address] [facility] [address] [place] [address] Consulting Physician Gastroenterology 02/22/19 Sebastien Martinez DO [address] [place] [id number] Medical Oncologist/Sales Training Representative Hematology and Oncology 02/22/19 Guru Winters DO [address] [place] [address] Consulting Physician Gastroenterology 02/22/19 Gato Abrams MD [address] [place] [phone] Surgeon Surgical Oncology 09/07/19 Marina Rosales MD [address] [facility] [address] [place] [address] Consulting Physician General Surgery 03/24/21 documented as of this encounter
--- OUTSIDE RECORDS SUMMARY | 2024-10-04 02:57 | XMS_ITS | Encounter Summary ---
Author Organization [facility] Healthcare Address [address] [place] [address] Care Team Providers Care Flap Presser Name Role Phone Luann Lawrence NP Unavailable [phone] Adarsh Tuttle MD Unavailable [phone] Sebastien Martinez DO Unavailable [phone] Guru Winters DO Unavailable [phone] Gato Abrams MD Unavailable Elizabeth Borrego Primary Care Provider [phone] Marina Rosales MD Unavailable [phone] Reason for Visit * Auth/Cert (Routine) Specialty Diagnoses / Procedures Referred By Contac t Referred To Contact Diagnoses Malignant carcinoid tumor of the stomach (HCC) Malignant carcinoid tumor of the stomach (CMS/HCC) (HCC) [C7A.092] Procedures EUS Referral ID Status Reason Start Date Expiration Date Visits Re quested Visits Authorized [id number] 1 1 Encounter Details Date Type Department Care Team (Latest Contact Info) Description 04/26/2023 6:33 AM CDT - 04/26/2023 9:00 AM CDT Hospital Encounter [facility] [address] [place] [id number] Adarsh Tuttle MD [address] [facility] [address] [place] [address] Malignant carcinoid tumor of the stomach (CMS/HCC) (HCC) Discharge Disposition: Discharge to home or [...] on file 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6 cm (5' 4 ) 04/26/2023 7:34 AM CDT Body Mass Index 28.32 04/26/2023 7:34 AM CDT documented in this encounter Medications at Time of Discharge cholecalciferol (VITAMIN D-3) 1,000 unit capsuleIndicati ons:Vitamin D Deficiency Take 2 capsules (2,000 Units total) by mouth truck bracer before breakfast buPROPion XL (WELLBUTRIN XL) 150 [...] 1 tablet (200 mg total) by mouth truck bracer before breakfast 01/30/2019 09/30/20 23 multivitamin capsuleIndicati ons:Vitamin Deficiency Prevention Take 1 capsule by mouth truck bracer before breakfast 04/14/20 24 pravastatin (PRAVACHOL) 40 mg tabletIndicatio ns:Dyslipidemia Take 1 tablet (40 mg total) by mouth every morning 90 tablet 1 03/04/2023 09/30/20 23 syringe with needle (Syringe 3cc/25Gx1 ) 3 mL 25 gauge x 1 syringe 1 Syringe every 30 (thirty) days For use with monthly IM Vitamin B12 injections 30 each 02/18/2022 09/30/20 23 valsartan-hydro CHLOROthiazide (DIOVAN-HCT) 80-12.5 mg per tabletIndicatio ns:hypertension Take 1 tablet by mouth daily 90 tablet 1 03/04/2023 09/30/20 23 documented as of this encounter Discharge Disposition Disposition Code Departure Means Destination Comment s Discharge to home or self care Car documented in this encounter H&P Notes * Adarsh Tuttle MD - 04/26/2023 7:37 AM CDT ENDOSCOPY PRE-PROCEDURE MEDICAL HISTORY & PHYSICAL Fabiola Gibson 57 y.o. female BP 131/63 Pulse 57 Temp 36.4 ??C (97.6 ??F) (Temporal) Resp 16 Ht 162.6 cm (5' 4 ) Wt 74.8 kg (165 lb) SpO2 100% BMI 28.32 kg/m?? History: Past Medical History: Diagnosis Date Anemia Autoimmune disease (CMS/HCC) (HCC) Cancer (CMS/HCC) (HCC) carcinode tumors Carcinoid tumor of stomach Colon polyp Depression Heart murmur Hyperlipidemia Hypertension Left bundle branch block Rheumatoid arthritis (HCC) Urinary tract infection years ago No Known Allergies Medications Prior to Admission Medication Sig Dispense Refill Last Dose buPROPion XL (WELLBUTRIN XL) 150 mg 24 hr tablet Take 1 tablet (150 mg total) by mouth every morning 90 tablet 1 04/25/2023 cholecalciferol (VITAMIN D-3) 1,000 unit capsule Take 2 capsules (2,000 Units total) by mouth earlymorning before breakfast 04/25/2023 escitalopram (LEXAPRO) 10 mg tablet Take 1 tablet (10 mg total) by mouth daily 90 tablet 1 04/25/2023 hydroxychloroquine (PLAQUENIL) 200 mg tablet Take 1 tablet (200 mg total) by mouth truck bracer before breakfast 04/25/2023 multivitamin capsule Take 1 capsule by mouth truck bracer before breakfast Past Month pravastatin (PRAVACHOL) 40 mg tablet Take 1 tablet (40 mg total) by mouth every morning 90 tablet 04/07/2023 cyanocobalamin (Vitamin B-12) 1,000 mcg/mL injection INJECT 1 ML INTRAMUSCULARLY INSTRUCTED EVERY 30 DAYS (DISCARD 28 DAYS AFTER FIRST USE) 3 mL 2 syringe with needle (Syringe 3cc/25Gx1 ) 3 mL 25 gauge x 1 syringe 1 Syringe every 30 (thirty) days For use with monthly IM Vitamin B12 injections 30 each 0 valsartan-hydroCHLOROthiazide (DIOVAN-HCT) 80-12.5 mg per tablet Take 1 tablet by mouth daily 90 tablet 1 No current facility-administered medications for this encounter. Physicial Exam: Physical exam is normal ASA Evaluation and Anesthesia Plan: ASA 2 - Patient with mild systemic disease with no functional limitations Indication(s) for Procedure: pancreatic net Procedure Planned: EUS Adarsh Tuttle MD documented in this encounter Procedure Notes * Adarsh Tuttle MD - 04/26/2023 7:34 AM CDTAssociated Order(s): EUS ENDOSCOPY LAB Patient Name: Fabiola Gibson Procedure Date: 04/26/2023 7:34 AM Admit Type: Outpatient Room: [facility] 4 Date of : 1965 Instrument Name: [id number] Gender: Female Note Status: Finalized Procedure: Upper EUS Indications: Pancreatic neuroendocrine tumor surveillance. h/o gastric carcinoid s/p resection (B-2 anatomy) in 2019 with hyper-gastrin state Providers: Adarsh Tuttle M.D. Referring MD: Sebastien Martinez D.O., Elizabeth Borrego PA-C Medicines: Monitored Anesthesia Care Complications: No immediate complications. Estimated blood loss: Minimal. Estimated Blood Loss: Estimated blood loss was minimal. Procedure: The risks, benefits and alternatives were discussed and informed consent was obtained.The Endoscope was introduced through the mouth, and advanced to the second part of duodenum The Endosonoscope was introduced through the mouth, and advanced to the third part of duodenum The upper EUS was accomplished without difficulty. The patient tolerated the procedure well. Findings: ENDOSCOPIC FINDING: : The examined esophagus was normal. Diffuse atrophic mucosa was found in the cardia and in the gastric fundus. Evidence of a patent Billroth II gastrojejunostomy was found. The gastrojejunal anastomosis was characterized by healthy appearing mucosa. This was traversed. The efferent limb was examined. The examined duodenum was normal. ENDOSONOGRAPHIC FINDING: : The region of the celiac plexus and celiac ganglia was visualized and showed no sign of significant endosonographic abnormality. The vascular anatomy of the region was normal. There was no sign of significant endosonographic abnormality in the left lobe of the liver and in the right lobe of the liver. No focal pathology was identified. A round mass was identified in the pancreatic head. The mass was hypoechoic. It was difficult to visualize with the radial scope due to the altered anatomy. The linear was able to visualize it better although with difficulty at 2021 EUS exam. The ampulla and CBD could not be visualized. The mass measured 7 mm by 6 mm in maximal cross-sectional diameter. The endosonographic borders were well-defined. No lymphadenopathy seen. Impression: - Gastric mucosal atrophy with patent Billroth II gastrojejunostomy. There was no evidence of new gastric carcinoids or nodules. - Stable 7 mm pancreatic neuroendocrine nodule/lesion. - No specimens collected. Recommendation: - Repeat the upper endoscopic ultrasound in 1 year for surveillance. - The findings and recommendations were discussed with the patient and their family. Attending Participation: I personally performed the entire procedure. Electronically signed by Adarsh Tuttle MD Adarsh Tuttle M.D. 04/26/2023 8:13:01 AM This document was signed electronically. Number of Addenda: 0 Note Initiated On: 04/26/2023 7:34 AM Scope In: Scope Out: documented in this encounter Plan of Treatment Pending Results Name Type Priority Associated Diagnoses Date /Time US Endoscopy Endo Imaging Procedure IP Routine Malignant carcinoid tumor of the stomach (HCC) 04/26/2023 8:10 AM CDT documented as of this encounter Procedures Procedure Name Priority Date/Time Associated Diagnosis Comments US ENDOSCOPIC IP Routine 04/26/2023 8:10 AM CDT Malignant carcinoid tumor of the stomach (HCC) ESOPHAGOGASTRODUODENOSCOPY ULTRASOUND EXAM LIMITED 04/26/2023 7:35 AM CDT Malignant carcinoid tumor of the stomach (HCC) EUS 04/26/2023 7:34 AM CDT documented in this encounter Results * EUS (04/26/2023 7:34 AM CDT) Anatomical Region Laterality Modality Other Narrative Procedure Note Adarsh Tuttle MD - 04/26/2023 7:34 AM CDT ENDOSCOPY LAB Patient Name: Fabiola Gibson Procedure Date: 04/26/2023 7:34 AM Admit Type: Outpatient Room: [facility] Date of : 1965 Instrument Name: [id number] Gender: Female Note Status: Finalized Procedure: Upper EUS Indications: Pancreatic neuroendocrine tumor surveillance. h/o gastric carcinoid s/p resection (B-2 anatomy) [id number] with hyper-gastrin state Providers: Adarsh Tuttle M.D. Referring MD: Sebastien Martinez D.O., Elizabeth Borrego PA-C Medicines: Monitored Anesthesia Care Complications: No immediate complications. Estimated blood loss: Minimal. Estimated Blood Loss: Estimated blood loss was minimal. Procedure: The risks, benefits and alternatives were discussed and informed consent was obtained.The Endoscope was introduced through the mouth, and advanced to the second part of duodenum The Endosonoscope was introduced through the mouth, and advanced to the third part of duodenum The upper EUS wasaccomplished without difficulty. The patient tolerated the procedure well. Findings: ENDOSCOPIC FINDING: : The examined esophagus was normal. Diffuse atrophic mucosa was found in the cardia and in the gastric fundus. Evidence of a patent Billroth II gastrojejunostomy was found. The gastrojejunal anastomosis was characterized by healthy appearingmucosa. This was traversed. The efferent limb was examined. The examined duodenum was normal. ENDOSONOGRAPHIC FINDING: : The region of the celiac plexus and celiac ganglia was visualized and showed no sign of significant endosonographic abnormality. Thevascular anatomy of the region was normal. There was no sign of significant endosonographic abnormality in theleft lobe of the liver and in the right lobe of the liver. No focalpathology was identified. A round mass was identified in the pancreatic head. The mass was hypoechoic. It was difficult to visualize with the radial scope dueto the altered anatomy. The linear was able to visualize it betteralthough with difficulty at 2022 EUS exam. The ampulla and CBD could not be visualized. The mass measured 7 mm by 6 mm in maximal cross-sectional diameter. The endosonographic borders were well-defined. No lymphadenopathy seen. Impression: - Gastric mucosal atrophy with patent Billroth II gastrojejunostomy. There was no evidence of new gastric carcinoids or nodules. - Stable 7 mm pancreatic neuroendocrinenodule/lesion. - No specimens collected. Recommendation: - Repeat the upper endoscopic ultrasound in 1 yearfor surveillance. - The findings and recommendations were discussedwith the patient and their family. Attending Participation: I personally performed the entire procedure. Electronically signed by Adarsh Tuttle MD Adarsh Tuttle M.D. 04/26/2023 8:13:01 AM This document was signed electronically. Number of Addenda: 0 Note Initiated On: 04/26/2023 7:34 AM Scope In: Scope Out: Adarsh Tuttle MD ENDOSCOPY PROCEDURES Final Re sult documented in this encounter Visit Diagnoses Diagnosis Malignant carcinoid tumor of the stomach (HCC) Malignant carcinoid tumor of the stomach documented in this encounter Discontinued Medications Medication Sig Discontinue Reason Start Date End Da te octreotide (SandoSTATIN) 100 mcg/mL injection 1 mL every 8 hours Therapy completed 2022 traZODone (DESYREL) 50 mg tablet Take 1 tablet (50 mg total) by mouth nightly as needed for sleep Therapy completed 12/11/2022 04/26/2023 documented as of this encounter Orders Discharge Count Last Ordered Date First Orde red Date DISCHARGE PATIENT 1 04/26/2023 documented in this encounter Care Teams Flap Presser Relationship Specialty Start Date End Date Elizabeth Borrego PA [address] [facility] [address] [place] [address] PCP - General Internal Medicine 03/25/20 09/27/23 Luann Lawrence NP Nurse Practitioner Nurse Practitioner 01/06/19 Adarsh Tuttle MD [address] [facility] [address] [place] [address] Consulting Physician Gastroenterology 02/22/19 Sebastien Martinez DO [address] [place] [address] [address] [place] [address] Medical Oncologist/Receiving Associate Hematology and Oncology 02/22/19 Guru Winters DO [address] [address] Consulting Physician Gastroenterology 02/22/19 Gato Abrams MD [address] [place] [address] Surgeon Surgical Oncology 09/07/19 Marina Rosales MD [address] [place] [address] [address] [place] [address] Consulting Physician General Surgery 03/24/21 documented as of this encounter
--- OUTSIDE RECORDS SUMMARY | 2024-10-04 02:57 | XMS_ITS | Encounter Summary ---
Author Organization [facility] Address [address] [place] [address] Phone Care Team Providers Care Vp Strategy Name Role Phone Luann Lawrence ANUP Unavailable [phone] Adarsh Tuttle MD Unavailable [phone] Sebastien Martinez DO Unavailable [phone] Guru Winters DO Unavailable [phone] Gato Abrams MD Unavailable [phone] Elizabeth Borrego Primary Care Provider [phone] Marina Rosales MD Unavailable [phone] Encounter Details Date Type Department Care Team (Late st Contact Info) Description 04/15/2023 Telephone [facility] Oncology [facility] [facility] [address] [place] [address] Brittney Norris Social History Tobacco Use Types Packs/Day Years [...] on file 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 Gender Identity Female 06/07/2020 8:39 AM CDT Sexual Orientation Not on file 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 Not on file Not on file documented as of this encounter Miscellaneous Notes * Telephone Encounter - Brittney Norris - 04/15/2023 12:40 PM CDT Spoke with patient to reschedule and confirm new appointment time due to change in MD schedule documented in this encounter Plan of Treatment Not on file documented as of this encounter Visit Diagnoses Not on filedocumented in this encounter Care Teams Vp Strategy Relationship Specialty Start Date End Date Elizabeth Borrego PA [address] [place] [address] PCP - General Internal Medicine 03/25/20 09/27/23 Luann Lawrence NP Nurse Practitioner Nurse Practitioner 01/06/19 Adarsh Tuttle MD [address] [facility] [address] [place] [address] Consulting Physician Gastroenterology 02/22/19 Sebastien Martinez DO [address] [place] [address] Medical Oncologist/Woodworking Machine Offbearer Hematology and Oncology 02/22/19 Guru Winters DO [address] [address] Consulting Physician Gastroenterology 02/22/19 Gato Abrams MD [facility] [address] Surgeon Surgical Oncology 09/07/19 Marina Rosales MD [address] [place] [address] [address] [place] [address] Consulting Physician General Surgery 03/24/21 documented as of this encounter
--- OUTSIDE RECORDS SUMMARY | 2024-10-04 02:57 | XMS_ITS | Encounter Summary ---
Author Organization [facility] Address [address] [place] [address] Phone Care Team Providers Care Software Test Specialist Name Role Phone MelindaLuann oh ANUP Unavailable [phone] Adarsh Tuttle MD Unavailable [phone] Sebastien Martinez DO Unavailable [phone] Guru Winters DO Unavailable [phone] Gato Abrams MD Unavailable [phone] Elizabeth Borrego Primary Care Provider [phone] Marina Rosales MD Unavailable [phone] Reason for Referral * Consultation (Routine) - Closed Specialty Diagnoses / Procedures Referred By Contac t Referred To Contact Rheumatology Diagnoses Swelling of joint, knee, right Synovial cyst of right popliteal space [place] [address] [place] [address] Phone: tel: fax: [facility] (All Locations) Referral ID Status Reason Start Date Expiration Date V isits Requested Visits Authorized [id number] Closed Specialty Services Required 05/18/2023 06/16/2024 60 60 Question Answer Please select the performing region: [facility] (All Locations) [[id number]] Service Line General Rheumatology # of visits: 1 * Diagnostic Imaging (Routine) - Closed Specialty Diagnoses / Procedures Referred By Clemencia t Referred To Contact Diagnoses Swelling of joint, knee, right Procedures XR Knee Right [address] [place] [address] [place] [address] Phone: tel: fax: [facility] Referral ID Status Reason Start Date Expiration Date Visits Re quested Visits Authorized [id number] Closed 05/18/2023 06/16/2024 1 1 Reason for Visit * Reason Comments Follow-up Encounter Details Date Type Department Care Team (Late st Contact Info) Description 05/18/2023 11:00 AM CDT Office Visit [facility] Orthopaedic Surgery [address] [place] [address] [place] [address] [place] [address] Swelling of joint, knee, right (Primary Dx); Synovial cyst of right popliteal space; Effusion [...] on file 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 Interim history: Fabiola returns today in regards to her right knee. She just had an aspiration and injection and has recurrent swelling in the knee. Physical examination: Right knee skin is intact. Moderate effusion. 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 Imaging: I independently reviewed 3 plain films of the right knee, including bilateral Merchant and Manuel views, taken today which show no significant degenerative change or fracture. Large effusion. I independently reviewed the MRI of her right knee obtained on May 11, 2023 which shows a large effusion Duke's cyst. Minimal chondrosis. No obvious unstable chondral flaps. No obvious meniscus tear. No obvious ligament injury. Impression: Recurrent right knee effusion and cyst which are no longer responding to an aspiration and injection Plan: I explained to Fabiola that based on her x-rays and MRI, I do not see structural issue as a cause of her swelling that could benefit from surgical intervention. Given the fact that injections are becoming less effective, I would recommend a workup with Rheumatology to rule out an inflammatory process that could benefit for medical therapy. s. She had all of her questions answered and appears comfortable with this plan going forward. documented in this encounter Plan of Treatment Scheduled Referrals Name Type Priority Associated Diagnoses Order Schedule Ambulatory referral to Rheumatology Outpatient Referral Routine Swelling of joint, knee, right Synovial cyst of right popliteal space Effusion of right knee Expected: 06/01/2023 (Approximate), Expires: 05/18/2024 documented as of this encounter Results * XR Knee Right [...] Primary Synovial cyst of right popliteal space Effusion of right knee Swelling of joint, knee, right documented in this encounter Discontinued Medications Medication Sig Discontinue Reason Start Date End Da te cyanocobalamin (Vitamin B-12) 1,000 mcg/mL injection INJECT 1 ML INTRAMUSCULARLY INSTRUCTED EVERY 30 DAYS (DISCARD 28 DAYS AFTER FIRST USE) 02/16/2022 05/18/2023 documented as of this encounter Care Teams Software Test Specialist Relationship Specialty Start Date End Date Elizabeth Borrego PA [address] [place], [place] [id number] PCP - General Internal Medicine 03/25/20 09/27/23 Luann Lawrence, ANUP Nurse Practitioner Nurse Practitioner 01/06/19 Adarsh Tuttle MD [address] [address] [place] [address] Consulting Physician Gastroenterology 02/22/19 Sebastien Martinez DO [address] [place] [address] Medical Oncologist/Milieu Counselor Hematology and Oncology 02/22/19 Guru Winters DO [address] [place] [address] Consulting Physician Gastroenterology 02/22/19 Gato Abrams MD [address] [place] [address] Surgeon Surgical Oncology 09/07/19 Marina Rosales MD [address] [place] [address] Consulting Physician General Surgery 03/24/21 documented as of this encounter
--- OUTSIDE RECORDS SUMMARY | 2024-10-04 02:57 | XMS_ITS | Encounter Summary ---
Author Organization [facility] Address [address] [place] [address] Phone Care Team Providers Care Commodity Merchant Name Role Phone Luann Lawrence ANUP Unavailable [phone] Adarsh Tuttle MD Unavailable [phone] Sebastien Martinez DO Unavailable [phone] Guru Winters DO Unavailable [phone] Gato Abrams MD Unavailable [phone] Elizabeth Borrego Primary Care Provider [phone] Marina Rosales MD Unavailable [phone] Reason for Referral * Procedure (Routine) - Closed Specialty Diagnoses / Procedures Referred By Contac t Referred To Contact Diagnoses Swelling of joint, knee, right Procedures Joint Aspiration Saumya Stoner MD Phone: tel: fax: [facility] (All Locations) Referral ID Status Reason Start Date Expiration Date Visits Re quested Visits Authorized [id number] Closed 04/30/2023 05/29/2024 1 1 Reason for Visit * Reason Comments Injections * Injectables (Routine) - Closed Specialty Diagnoses / Procedures Referred By Contac t Referred To Contact Diagnoses Swelling of joint, knee, right Synovial cyst of right popliteal space Procedures Large Joint Injection w/ Ultrasound Guidance Elisabeth, [place] [address] [place] [address] Phone: tel: fax: [facility] (All Locations) Referral ID Status Reason Start Date Expiration Date Visits Re quested Visits Authorized [id number] Closed 04/28/2023 05/27/2024 1 1 Encounter Details Date Type Department Care Team (Late st Contact Info) Description 04/30/2023 9:00 AM CDT Procedure visit [facility] Orthopaedic Surgery [address] 2[address] [place] [address] Saumya Stoner MD [address] [place] [address] [place] [address] Swelling of joint, knee, right; Synovial cyst of right popliteal space Social [...] on file 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:22 AM BRIDAL GOWN FITTER Gender Identity Female 06/07/2020 8:39 AM CDT Sexual Orientation Not on file 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 Not on file Not on file documented as of this encounter Progress Notes * Saumya Stoner MD - 04/30/2023 9:00 AM CDTAssociated Order(s): Joint Aspiration Post-Procedure Diagnose(s): Swelling of joint, knee, right Joint Aspiration Performed by: Saumya Stoner MD Authorized by: Saumya Stoner MD Joint Aspiration: Indications: Indications: Joint swelling Location: Body area: Knee Joint: Right knee Local anesthesia used?: No Procedure details: Preparation: Patient was prepped and draped in usual sterile fashion Needle size: 18 G Approach: Posterior Aspirate amount (ml): 195 Aspirate: Yellow and clear US guidance with linear probe in MSK setting used with out of plane guidance; patient with recent steroid injection, will not inject steroid today documented in this encounter Plan of Treatment Not on file documented as of this encounter Procedures Procedure Name Priority Date/Time Associated Diagnosis Comments TN ARTHROCENTESIS ASPIR&/INJ MAJOR JT/BURSA W/O US Routine 04/30/2023 9:00 AM CDT Swelling of joint, knee, right documented in this encounter Results * TN ARTHROCENTESIS ASPIR&/INJ MAJOR JT/BURSA W/US (06/09/2023 3:40 PM CDT) Narrative Daryn Calderon MD - 06/09/2023 3:40 PM CDT Daryn Calderon MD ? 06/10/2023 ??7:48 AM Large Joint Injection w/ Ultrasound Guidance: R knee Performed by: Daryn Calderon MD Authorized by: Jason Barber IV, MD ?? Large Joint Injection/Aspiration: ??Consent Given by: ??Patient ??Site marked: the procedure site was marked ?Timeout: prior to procedure the correct patient, procedure, and site was verified ?Verbal consent obtained: Yes ?? Supporting Documentation: ??Indications: ??Pain and joint swelling Procedure Details: ??Location: ??Knee ??Site: ??R knee (Duke's cyst) ??Prep: patient was prepped and draped in usual sterile fashion ?Needle Size: ??18 G ??Approach: ??Posterior ??Ultrasound guided: Yes ?Ultrasound guidance used for: ??Pre-procedure marking and real-time guidance ??Sterile ultrasond techniques: Sterile gel and sterile probe covers were used ?Medications: ??5 mL lidocaine 10 mg/mL (1 %); 40 mg triamcinolone 40 mg/mL us Jason Barber IV, MD IN CLINIC/BEDSIDE ORD ERABLES Final Result * TN ARTHROCENTESIS ASPIR&/INJ MAJOR JT/BURSA W/O US (04/30/2023 9:00 AM CDT) Narrative Saumya Stoner MD - 04/30/2023 9:00 AM CDT Saumya Stoner MD ? 04/30/2023 ??9:24 AM Joint Aspiration Performed by: Saumya Stoner MD Authorized by: Saumya Stoner MD ?? Joint Aspiration: Indications: ??Indications: ??Joint swelling Location: ??Body area: ??Knee Joint: ??Right knee ??Local anesthesia used?: No ?? Procedure details: ??Preparation: Patient was prepped and draped in usual sterile fashion ?Needle size: ??18 G ??Approach: ??Posterior ??Aspirate amount (ml): ??195 ??Aspirate: ??Yellow and clear ?? US guidance with linear probe in MSK setting used with out of plane guidance; patient with recent steroid injection, will not inject steroid today us Saumya Stoner MD IN CLINIC/BEDSIDE ORDERAB LES Final Result documented in this encounter Visit Diagnoses Diagnosis Swelling of joint, knee, right Synovial cyst of right popliteal space documented in this encounter Care Teams Commodity Merchant Relationship Specialty Start Date End Date Elizabeth Borrego PA [address] [facility] [address] [place] [address] PCP - General Internal Medicine 03/25/20 09/27/23 Luann Lawrence NP Nurse Practitioner Nurse Practitioner 01/06/19 Adarsh Tuttle MD [address] [facility] [address] [place] [address] Consulting Physician Gastroenterology 02/22/19 Sebastien Martinez DO [address] [place] [address] [id number] Medical Oncologist/Family Specialist Hematology and Oncology 02/22/19 Guru Winters DO [address] [place] [address] 084789 Consulting Physician Gastroenterology 02/22/19 Gato Abrams MD [address] [place] [address] 838609 Surgeon Surgical Oncology 09/07/19 Marina Rosales MD [address] [facility] [address] [place] [address] Consulting Physician General Surgery 03/24/21 documented as of this encounter
--- OUTSIDE RECORDS SUMMARY | 2024-10-04 02:57 | XMS_ITS | Encounter Summary ---
Author Organization [facility] Address [address] [place] [address] Care Team Providers Care Dead Mail Checker Name Role Phone Luann Lawrence NP Unavailable [phone] Adarsh Tuttle MD Unavailable [phone] Sebastien Martinez DO Unavailable [phone] Guru Winters DO Unavailable [phone] Gato Abrams MD Unavailable [phone] Elizabeth Borrego Primary Care Provider [phone] Marina Rosales MD Unavailable [phone] Reason for Visit * Reason Onset Date Comments Home sleep study results 06/11/2023 Encounter Details Date Type Department Care Team (Late st Contact Info) Description 06/11/2023 Telephone [facility] [address] [place] [address] Amari Flores MD [address] [facility] [address] [address] Home sleep study results Social History Tobacco Use Types Packs/Day Years [...] on file 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 She understood results and agreed to send order for auto cpap to [facility] home care. No more questions and will call if she does not hear from them within a few weeks. documented in this encounter Plan of Treatment Not on file documented as of this encounter Visit Diagnoses Not on filedocumented in this encounter Care Teams Dead Mail Checker Relationship Specialty Start Date End Date Elizabeth Borrego PA [address] [facility] [facility] [facility] [address] [place] [address] PCP - General Internal Medicine 03/25/20 09/27/23 Luann Lawrence NP Nurse Practitioner Nurse Practitioner 01/06/19 Adarsh Tuttle MD [address] [facility] [address] [place] [address] Consulting Physician Gastroenterology 02/22/19 Sebastien Martinez DO [address] [place] [id number] Medical Oncologist/[address] Magistrate Hematology and Oncology 02/22/19 Guru Winters DO [address] [place] [address] Consulting Physician Gastroenterology 02/22/19 Gato Abrams MD [address] [place] [address] Surgeon Surgical Oncology 09/07/19 Marina Rosales MD [address] [place] [address] [address] [place], [place] [id number] Consulting Physician General Surgery 03/24/21 documented as of this encounter
--- OUTSIDE RECORDS SUMMARY | 2024-10-04 02:57 | XMS_ITS | Encounter Summary ---
Author Organization [facility] Address [address] [place] [address] Phone Care Team Providers Care Office Services Associate Name Role Phone Luann Lawrence ANUP Unavailable [phone] Adarsh Tuttle MD Unavailable [phone] Sebastien Martinez DO Unavailable [phone] Guru Winters DO Unavailable [phone] Gato Abrams MD Unavailable [phone] Marina Rosales MD Unavailable [phone] Elizabeth Borrego Primary Care Provider [phone] Encounter Details Date Type Department Care Team (Latest Contact Info) Description 01/12/2024 3:45 PM CDT Ancillary Procedure [facility] Orthopaedic Surgery [address] [facility] 1st Floor [address] [place] [address] Swelling of joint, knee, right Social History Tobacco Use Types Packs/Day Years Used Date Smoking Tobacco: Former Cigarettes 1 2 997 - 1998 Smokeless Tobacco: Never Alcohol [...] on file 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 Gender Identity Female 06/07/2020 8:39 AM CDT Sexual Orientation Not on file 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 Not on file Not on file documented as of this encounter Plan of Treatment Not on file documented as of this encounter Procedures Procedure Name Priority Date/Time Associated Diagnosis Comments POCUS ASP/INJ MAJOR JOINT Schedule Routine, Read Routine (OP Routine) 01/12/2024 3:40 PM CDT Swelling of joint, knee, [...] right documented in this encounter Care Teams Office Services Associate Relationship Specialty Start Date End Date Elizabeth Borrego PA [address] [facility] [address] [facility] [address] [place] [address] PCP - General Internal Medicine 09/28/23 Luann Lawrence NP Nurse Practitioner Nurse Practitioner 01/06/19 Adarsh Tuttle MD [address] [facility] [address] [place] [address] Consulting Physician Gastroenterology 02/22/19 Sebastien Martinez DO [address] [place] [address] Medical Oncologist/Outsole Handler Hematology and Oncology 02/22/19 Guru Winters DO [address] [place] [address] [id number] Consulting Physician Gastroenterology 02/22/19 Gato Abrams MD [address] [place] [address] 802479 Surgeon Surgical Oncology 09/07/19 Marina Rosales MD [address] [place] [address] 857949 Consulting Physician General Surgery 03/24/21 documented as of this encounter
--- OUTSIDE RECORDS SUMMARY | 2024-10-04 02:57 | XMS_ITS | Encounter Summary ---
Author Organization [facility] Address [address] [place] [address] Phone Care Team Providers Care Marketing Planning Manager Name Role Phone Luann Lawrence ANUP Unavailable [phone] Adarsh Tuttle MD Unavailable [phone] Sebastien Martinez DO Unavailable [phone] Guru Winters DO Unavailable [phone] Gato Abrams MD Unavailable [phone] Marina Rosales MD Unavailable [phone] Elizabeth Borrego Primary Care Provider [phone] Encounter Details Date Type Department Care Team (Late st Contact Info) Description 10/01/2023 9:10 AM ICING COATER Lab [facility] Endocrinology Metabolism and Lipid [address] [facility] 5th [place] [address] [place] [address] Effusion of right knee; Seronegative rheumatoid arthritis (CMS/HCC) (HCC) Social History [...] on file 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:22 AM ICING COATER Gender Identity Female 06/07/2020 8:39 AM CDT Sexual Orientation Not on file 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 Not on file Not on file documented as of this encounter Plan of Treatment Not on file documented as of this encounter Procedures Procedure Name Priority Date/Time Associated Diagnosis Comments CRP (ACUTE PHASE) Routine 10/01/2023 9:0 2 AM ICING COATER Effusion of right knee Seronegative rheumatoid arthritis (CMS/HCC) (HCC) documented in this encounter Results * CRP (acute phase) (10/01/2023 9:02 AM ICING COATER) C-Reactive Protein, Acute <3.0 <5.0 mg/L [facility] Blood 10/01/2023 9:02 AM ICING COATER 10/01/2023 10:26 AM ICING COATER us Salome Quiñonez MD LAB BLOOD ORDERABLES F inal Result [facility] documented in this encounter Visit Diagnoses Diagnosis Effusion of right knee Seronegative rheumatoid arthritis (CMS/HCC) (HCC) Rheumatoid arthritis documented in this encounter Care Teams Marketing Planning Manager Relationship Specialty Start Date End Date Elizabeth Borrego PA [address] [facility] [address] [place] [address] PCP - General Internal Medicine 09/28/23 Luann Lawrence NP Nurse Practitioner Nurse Practitioner 01/06/19 Adarsh Tuttle MD [address] [facility] [address] [place] [address] Consulting Physician Gastroenterology 02/22/19 Sebastien Martinez DO [address] [place] [address] Medical Oncologist/Management Tech Hematology and Oncology 02/22/19 Guru Winters DO [address] [place] [address] [id number] Consulting Physician Gastroenterology 02/22/19 Gato Abrams MD [address] [place], [place] [address] Surgeon Surgical Oncology 09/07/19 Marina Rosales MD [address] [place], [place] [address] Consulting Physician General Surgery 03/24/21 documented as of this encounter
--- OUTSIDE RECORDS SUMMARY | 2024-10-04 02:57 | XMS_ITS | Encounter Summary ---
Author Organization [facility] Address [address] [place] [address] Care Team Providers Care Groover And Turner Name Role Phone Luann Lawrence NP Unavailable [phone] Adarsh Tuttle MD Unavailable [phone] Sebastien Martinez DO Unavailable Guru Winters DO Unavailable [phone] Gato Abrams MD Unavailable [phone] Marina Rosales MD Unavailable [phone] Elizabeth Borrego Primary Care Provider [phone] Encounter Details Date Type Department Care Team (Latest Contact Info) Description 10/01/2023 9:40 AM BEHAVIOR CLINICIAN - 10/01/2023 11:59 PM BEHAVIOR CLINICIAN Hospital Encounter [address] [address] Effusion of right knee; Seronegative rheumatoid arthritis (CMS/HCC) (HCC) Discharge Disposition: Discharge to home [...] on file 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:22 AM BEHAVIOR CLINICIAN Gender Identity Female 06/07/2020 8:39 AM CDT Sexual Orientation Not on file 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 Not on file Not on file documented as of this encounter Medications at Time of Discharge cholecalciferol (VITAMIN D-3) 1,000 unit capsuleIndicatio ns:Vitamin D Deficiency Take 2 capsules (2,000 Units total) by mouth natural resources professor before breakfast ascorbic acid (vitamin C) 1,000 mg tablet 07/18/2023 4 buPROPion XL (WELLBUTRIN XL) 150 mg 24 hr tabletIndication s:Moderate episode of recurrent major depressive disorder (HCC) TAKE ONE TABLET BY MOUTH EVERY MORNING 90 tablet 1 09/24/2023 4 hydroxychloroqui ne (PLAQUENIL) 200 mg tabletIndication s:Rheumatoid Arthritis Take 2 tablets (400 mg total) by mouth every other day AND 1 tablet (200 mg total) every other day. Take 400mg (2 tablets) on even days and 200mg (1 tablet) on odd days. 135 tablet 1 10/01/2023 4 multivitamin capsuleIndicatio ns:Vitamin Deficiency Prevention Take 1 capsule by mouth natural resources professor before breakfast 4 pravastatin (PRAVACHOL) 40 mg tabletIndication s:Dyslipidemia Take 1 tablet (40 mg total) by mouth daily 90 tablet 3 09/30/2023 4 valsartan-hydroC HLOROthiazide (DIOVAN-HCT) 80-12.5 mg per tabletIndication s:hypertension Take 1 tablet by mouth daily 30 tablet 1 09/30/2023 4 documented as of this encounter Discharge Disposition Disposition Code Departure Means Destination Discharge to home or self care documented in this encounter Plan of Treatment Not on file documented as of this encounter Procedures Procedure Name Priority Date/Time Associated Diagnosis Comments CYCLIC CITRUL PEPTIDE ANTIBODY, IGG Routine 10/01/2023 9:02 AM BEHAVIOR CLINICIAN Effusion of right knee Seronegative rheumatoid arthritis ([facility]/HCC) ([facility]) ERYTHROCYTE SEDIMENTATION RATE Routine 10/01/2023 9:02 AM BEHAVIOR CLINICIAN Effusion of right knee Seronegative rheumatoid arthritis ([facility]/HCC) ([facility]) RHEUMATOID FACTOR Routine 10/01/2023 9:0 2 AM BEHAVIOR CLINICIAN Effusion of right knee Seronegative rheumatoid arthritis ([facility]) ([facility]) documented in this encounter Results * Erythrocyte sedimentation rate (10/01/2023 9:02 AM BEHAVIOR CLINICIAN) Erythrocyte sedimentation rate 16 1 - 30 mm/hr [facility] Blood 10/01/2023 9:02 AM BEHAVIOR CLINICIAN 10/01/2023 10:51 AM BEHAVIOR CLINICIAN us Salome Quiñonez MD LAB BLOOD ORDERABLES F inal Result Performing Organization Address [facility] Co de Phone Number [facility] [place] [address] * Cyclic citrul peptide antibody, IgG (10/01/2023 9:02 AM BEHAVIOR CLINICIAN) CCP Ab <0.5 <=2.9 units/mL [facility] Comment: Interpretive data Negative: <3 units/mL Positive: > or equal to 3 units/mL Current interpretive data was last revised on 2017. Blood 10/01/2023 9:02 AM BEHAVIOR CLINICIAN 10/01/2023 10:51 AM BEHAVIOR CLINICIAN Salome Quiñonez MD LAB BLOOD ORDERABLES F inal Result Performing Organization Address [facility] Co de Phone Number [facility] [place] [address] * Rheumatoid factor (10/01/2023 9:02 AM BEHAVIOR CLINICIAN) Rheumatoid factor, quant <10.0 0.1 - 15.0 IUnits/mL [facility] Blood 10/01/2023 9:02 AM BEHAVIOR CLINICIAN 10/01/2023 10:51 AM BEHAVIOR CLINICIAN us Salome Quiñonez MD LAB BLOOD ORDERABLES F inal Result [facility] [place] [address] documented in this encounter Visit Diagnoses Diagnosis Effusion of right knee Seronegative rheumatoid arthritis (CMS/HCC) (HCC) Rheumatoid arthritis documented in this encounter Care Teams Groover And Turner Relationship Specialty Start Date End Date Elizabeth Borrego PA [address] [address] [place] [address] PCP - General Internal Medicine 09/28/23 Luann Lawrence NP Nurse Practitioner Nurse Practitioner 01/06/19 Adarsh Tuttle MD [address] [facility] [address] [place] [address] Consulting Physician Gastroenterology 02/22/19 Sebastien Martinez DO [address] [facility] [address] [place] [address] Medical Oncologist/It Program Auditor Hematology and Oncology 02/22/19 Guru Winters DO [address] [facility] [address] [place] [address] Consulting Physician Gastroenterology 02/22/19 Gato Abrams MD [address] [place] [address] Surgeon Surgical Oncology 09/07/19 Marina Rosales MD [address] [place] [address] Consulting Physician General Surgery 03/24/21 documented as of this encounter
--- OUTSIDE RECORDS SUMMARY | 2024-10-04 02:57 | XMS_ITS | Encounter Summary ---
Author Organization [facility] Address [address] [place] [address] Care Team Providers Care Wreath And Garland Maker Name Role Phone Luann Lawrence NP Unavailable [phone] Adarsh Tuttle MD Unavailable [phone] Sebastien Martinez DO Unavailable [phone] Guru Winters DO Unavailable [phone] Gato Abrams MD Unavailable [phone] Elizabeth Borrego Primary Care Provider [phone] Marina Rosales MD Unavailable [phone] Reason for Visit * Auth/Cert (Routine) Specialty Diagnoses / Procedures Referred By Contac t Referred To Contact Diagnoses Malignant carcinoid tumor of the stomach (HCC) Malignant carcinoid tumor of the stomach (CMS/HCC) (HCC) [C7A.092] Procedures EUS Referral ID Status Reason Start Date Expiration Date Visits Re quested Visits Authorized [id number] 1 1 Encounter Details Date Type Department Care Team (Latest Contact Info) Description 04/26/2023 8:00 AM CDT - 04/26/2023 8:30 AM CDT Surgery [facility] [address] [place] [phone] Adarsh Tuttle MD [address] [facility] [address] [place] [address] ESOPHAGOGASTRODUODENOSCOPY ULTRASOUND EXAM LIMITED Surgery Details Date/Time Status Location OR Service Patient Class Case Class Case Type Trauma Case? 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 [...] 2 capsules (2,000 Units total) by mouth junior high school principal before breakfast buPROPion XL (WELLBUTRIN XL) 150 [...] 1 tablet (200 mg total) by mouth junior high school principal before breakfast 01/30/2019 09/30/20 23 multivitamin capsuleIndicati ons:Vitamin Deficiency Prevention Take 1 capsule by mouth junior high school principal before breakfast 04/14/20 24 pravastatin (PRAVACHOL) 40 [...] 1 tablet (200 mg total) by mouth junior high school principal before breakfast 04/25/2023 multivitamin capsule Take 1 capsule by mouth junior high school principal before breakfast Past Month pravastatin (PRAVACHOL) 40 [...] 04/26/2023 7:34 AM Admit Type: Outpatient Room: [facility] Date of : 1965 Instrument Name: [id number] Gender: Female Note Status: Finalized Procedure: Upper [...] 04/26/2023 7:34 AM Admit Type: Outpatient Room: [facility] Date of : 1965 Instrument Name: [id number] Gender: Female Note Status: Finalized Procedure: Upper EUS Indications: Pancreatic neuroendocrine tumor surveillance. 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 [...] to visualize it betteralthough with difficulty at 2021 EUS exam. The [...] 04/26/2023 documented in this encounter Care Teams Wreath And Garland Maker Relationship Specialty Start Date End Date Elizabeth Borrego PA [address] [place] [address] PCP - General Internal Medicine 03/25/20 09/27/23 Luann Lawrence NP Nurse Practitioner Nurse Practitioner 01/06/19 Adarsh Tuttle MD [address] [facility] [address] [place] [address] Consulting Physician Gastroenterology 02/22/19 Sebastien Martinez DO [address] [address] Medical Oncologist/Highway Research Engineer Hematology and Oncology 02/22/19 Guru Winters DO [facility] [address] Consulting Physician Gastroenterology 02/22/19 Gato Abrams MD [address] [place] [address] Surgeon Surgical Oncology 09/07/19 Marina Rosales MD [address] [facility] [address] [place], [place] [address] Consulting Physician General Surgery 03/24/21 documented as of this encounter
--- OUTSIDE RECORDS SUMMARY | 2024-10-04 02:57 | XMS_ITS | Encounter Summary ---
Author Organization [facility] Address [address] [place] [address] Phone Care Team Providers Care Air Export Agent Name Role Phone MelindaLuann oh ANUP Unavailable [phone] Adarsh Tuttle MD Unavailable [phone] Sebastien Martinez DO Unavailable [phone] Guru Winters DO Unavailable [phone] Gato Abrams MD Unavailable [phone] Elizabeth Borrego Primary Care Provider [phone] Marina Rosales MD Unavailable [phone] Reason for Referral * Injectables (Routine) - Closed Specialty Diagnoses / Procedures Referred By Contac t Referred To Contact Diagnoses Swelling of joint, knee, right Synovial cyst of right popliteal space Procedures Large Joint Injection w/ [place] [address] [place] [address] Phone: tel: fax: [facility] (All Locations) Referral ID Status Reason Start Date Expiration Date Visits Re quested Visits Authorized [id number] Closed 04/28/2023 05/27/2024 1 1 Encounter Details Date Type Department Care Team (Late st Contact Info) Description 04/28/2023 Orders Only [facility] Orthopaedic Surgery [address] [place] [phone] [place] [address] [facility] [address] [place] [address] Swelling of joint, knee, right (Primary Dx); [...] on file 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 Gender Identity Female 06/07/2020 8:39 AM CDT Sexual Orientation Not on file 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 Not on file Not on file documented as of this encounter Plan of Treatment Not on file documented as of this encounter Results * [place] ARTHROCENTESIS ASPIR&/INJ MAJOR JT/BURSA W/US (06/09/2023 3:40 [...] MD IN CLINIC/BEDSIDE ORD ERABLES Final Result documented in this encounter Visit Diagnoses Diagnosis Swelling of joint, knee, right- Primary Synovial cyst of right popliteal space Swelling of joint, knee, right Synovial cyst of right popliteal space documented in this encounter Care Teams Air Export Agent Relationship Specialty Start Date End Date Elizabeth Borrego PA [address] [facility] [address] [place] [address] PCP - General Internal Medicine 03/25/20 09/27/23 Luann Lawrence NP Nurse Practitioner Nurse Practitioner 01/06/19 Adarsh Tuttle MD [address] [facility] [address] [place] [address] Consulting Physician Gastroenterology 02/22/19 Sebastien Martinez DO [address] [facility] [address] [place] [address] Medical Oncologist/Parts Room Associate Hematology and Oncology 02/22/19 Guru Winters DO [facility] [address] Consulting Physician Gastroenterology 02/22/19 Gato Abrams MD [address] [place] [address] Surgeon Surgical Oncology 09/07/19 Marina Rosales MD [address] [facility] [address] [place] [address] Consulting Physician General Surgery 03/24/21 documented as of this encounter
--- OUTSIDE RECORDS SUMMARY | 2024-10-04 02:57 | XMS_ITS | Encounter Summary ---
Author Organization [facility] Address [address] [place] [address] Phone Care Team Providers Care Repairer Shoe Sticks Name Role Phone Luann Lawrence ANUP Unavailable [phone] Adarsh Tuttle MD Unavailable [phone] Sebastien Martinez DO Unavailable [phone] Guru Winters DO Unavailable [phone] Gato Abrams MD Unavailable [phone] Elizabeth Borrego Primary Care Provider [phone] Marina Rosales MD Unavailable [phone] Elizabeth Borrego Primary Care Provider [phone] Encounter Details Date Type Department Care Team (Late st Contact Info) Description 06/09/2023 Orders Only [facility] [phone] Scanning, Provider Social History Tobacco Use Types [...] on file 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 Gender Identity Female 06/07/2020 8:39 AM CDT Sexual Orientation Not on file 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 Not on file Not on file documented as of this encounter Plan of Treatment Not on file documented as of this encounter Procedures Procedure Name Priority Date/Time Associated Diagnosis Comments SCAN - RADIOLOGY/IMAGING 06/09/2023 documented in this encounter Results * SCAN - RADIOLOGY/IMAGING (06/09/2023) Anatomical Region Laterality Modality Other us Provider Scanning Final Result documented in this encounter Visit Diagnoses Not on filedocumented in this encounter Care Teams Repairer Shoe Sticks Relationship Specialty Start Date End Date Elizabeth Borrego PA [address] [place] [address] PCP - General Internal Medicine 03/25/20 09/27/23 Elizabeth Borrego PA [address] [place] [address] PCP - General Internal Medicine 09/28/23 Luann Lawrence NP Nurse Practitioner Nurse Practitioner 01/06/19 Adarsh Tuttle MD [address] [place] [address] Consulting Physician Gastroenterology 02/22/19 Sebastien Martinez DO [address] [place] [address] Medical Oncologist/Childcare Worker Hematology and Oncology 02/22/19 Guru Winters DO [facility] [address] Consulting Physician Gastroenterology 02/22/19 Gato Abrams MD [address] [place] [address] Surgeon Surgical Oncology 09/07/19 Marina Rosales MD [address] [facility] [address] [place], [place] [id number] Consulting Physician General Surgery 03/24/21 documented as of this encounter
--- OUTSIDE RECORDS SUMMARY | 2024-10-04 02:57 | XMS_ITS | Encounter Summary ---
Author Organization [facility] Address [address] [place] [address] Care Team Providers Care Balloon Pilot Name Role Phone Luann Lawrence NP Unavailable [phone] Adarsh Tuttle MD Unavailable Sebastien Martinez DO Unavailable [phone] Guru Winters DO Unavailable [phone] Gato Abrams MD Unavailable [phone] Marina Rosales MD Unavailable [phone] Elizabeth Borrego Primary Care Provider [phone] Reason for Referral * MRI/CAT/PET Scan (Routine) - Closed Specialty Diagnoses / Procedures Referred By Clemencia mendez Referred To Contact Radiology Diagnoses Malignant carcinoid tumor of stomach (HCC) Procedures CT Abdomen Pancreas W WO Contrast Gato Abrams MD [address] [phone] [place] [address] Phone: tel: fax: [address] [address] Referral ID Status Reason Start Date Expiration Date Visits Re quested Visits Authorized [id number] Closed 04/05/2023 05/04/2024 1 1 Reason for Visit * MRI/CAT/PET Scan (Routine) - Closed Specialty Diagnoses / Procedures Referred By Contac t Referred To Contact Radiology Diagnoses Malignant carcinoid tumor of stomach (HCC) Procedures CT Abdomen Pancreas W WO Contrast Gato Abrams MD [address] [phone] [place] [address] Phone: tel: fax: [facility] [address] [facility] [place] [address] Referral ID Status Reason Start Date Expiration Date Visits Re quested Visits Authorized [id number] Closed 04/05/2023 05/04/2024 1 1 Encounter Details Date Type Department Care Team (Latest Contact Info) Description 04/03/2024 11:55 AM CDT - 04/03/2024 11:59 PM CDT Hospital Encounter [facility] [address] [place] [address] Malignant carcinoid tumor of stomach (HCC) Discharge Disposition: Discharge to home [...] on file 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 Gender Identity Female 06/07/2020 8:39 AM CDT Sexual Orientation Not on file 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 Not on file Not on file documented as of this encounter Medications at Time of Discharge cholecalciferol (VITAMIN D-3) 1,000 unit capsuleIndicatio ns:Vitamin D Deficiency Take 2 capsules (2,000 Units total) by mouth information developer before breakfast pravastatin (PRAVACHOL) 40 mg tabletIndication [...] Deficiency Prevention Take 1 capsule by mouth information developer before breakfast 4 valsartan-hydroC HLOROthiazide (DIOVAN-HCT) 80-12.5 mg per tabletIndication s:hypertension Take 1 tablet by mouth daily 90 tablet 03/10/2024 4 documented as of this encounter Discharge Disposition Disposition Code Departure Means Destination Discharge to home or self care documented in this encounter Plan of Treatment Not on file documented as of this encounter Procedures Procedure Name Priority Date/Time Associated Diagnosis Comments CT ABDOMEN PANCREAS W WO CONTRAST Schedule Routine, Read Routine (OP Routine) 04/03/2024 12:35 PM CDT Malignant carcinoid tumor of stomach (HCC) POCT CREATININE - DEVICE Routine 04/03/2024 12:19 PM CDT documented in this encounter Results * CT Abdomen Pancreas W WO Contrast (04/03/2024 12:35 PM CDT) Anatomical Region Laterality Modality Abdomen N/A Computed Tomogra phy 04/03/2024 1:34 PM CDT Impressions 04/03/2024 1:34 PM CDT 1. ??Unchanged hypervascular lesion in the pancreatic uncinate Electronically signed by: Henok Alas M.D. Narrative 04/03/2024 1:34 PM CDT EXAMINATION: CT ABDOMEN PANCREAS W WO CONTRAST HISTORY: Neuroendocrine tumor. ??History of carcinoid tumor of the stomach status post distal gastrectomy and Billroth II gastrojejunostomy TECHNIQUE: ??Transaxial computed tomographic images of the abdomen were obtained without and with intravenous contrast according to the standard protocol after the uneventful administration of 100 mL Opti-Ray 350 intravenous contrast. COMPARISON: 04/05/2023 FINDINGS: ?? Stable 4 mm right lower lobe groundglass nodule on series 5 image 8. Visualized portions of the heart appear normal Unchanged 7 mm hypervascular enhancing nodule in the pancreatic uncinate process The remainder of the pancreas is unremarkable Gallbladder, spleen, adrenals, kidneys appear normal Postoperative changes from Billroth II reconstruction are again noted No upper abdominal lymphadenopathy or ascites No suspicious osseous lesion Procedure Note Henok Alas MD - 04/03/2024 EXAMINATION: CT ABDOMEN PANCREAS W WO CONTRAST HISTORY: Neuroendocrine tumor. History of carcinoid tumor of the stomach status post distal gastrectomy and Billroth II gastrojejunostomy TECHNIQUE: Transaxial computed tomographic images of the abdomen were obtained without and with intravenous contrast according to the standard protocol after the uneventful administration of 100 mL Opti-Ray 350 intravenous contrast. COMPARISON: 04/05/2023 FINDINGS: Stable 4 mm right lower lobe groundglass nodule on series 5 image 8. Visualized portions of the heart appear normal Unchanged 7 mm hypervascular enhancing nodule in the pancreatic uncinate process The remainder of the pancreas is unremarkable Gallbladder, spleen, adrenals, kidneys appear normal Postoperative changes from Billroth II reconstruction are again noted No upper abdominal lymphadenopathy or ascites No suspicious osseous lesion IMPRESSION: 1. Unchanged hypervascular lesion in the pancreatic uncinate Electronically signed by: Henok Alas M.D. Gato Abrams MD [facility] PROCEDURES Final Result * POCT creatinine (04/03/2024 12:19 PM CDT) Creatinine POC 0.9 0.6 - 1.1 mg/dL Blood 04/03/2024 12:1 9 PM CDT 04/03/2024 12:19 PM CDT Elizabeth ARANGO LAB POCT ORDERABLES - KIARA CE Final Result ANDREA ORNELAS [facility] Department [place] [address] documented in this encounter Visit Diagnoses Diagnosis Malignant carcinoid tumor of stomach (HCC) Malignant carcinoid tumor of the stomach documented in this encounter Administered Medications Inactive Administered Medications - up to 3 most recent administrations Medication Order MAR Action Action Date Dose Rate Site ioversoL (OPTIRAY 350) syringe 125 mL 125 mL, intravenous, Once in imaging, contrast, Starting on 04/03/24 at 1226, For 1 dose Contrast Given 04/03/2024 12:33 PM CDT 120 mL documented in this encounter Care Teams Balloon Pilot Relationship Specialty Start Date End Date Elizabeth Borrego PA [address] [place], [place] [id number] PCP - General Internal Medicine 09/28/23 Luann Lawrence, ANUP Nurse Practitioner Nurse Practitioner 01/06/19 Adarsh Tuttle MD [address] [facility] [address] [place] [address] Consulting Physician Gastroenterology 02/22/19 Sebastien Martinez DO [address] [place] [address] Medical Oncologist/Manager Lab Hematology and Oncology 02/22/19 Guru Winters DO [address] [place] [address] Consulting Physician Gastroenterology 02/22/19 Gato Abrams MD [address] [place] [address] Surgeon Surgical Oncology 09/07/19 Marina Rosales MD [address] [address] Consulting Physician General Surgery 03/24/21 documented as of this encounter
--- OUTSIDE RECORDS SUMMARY | 2024-10-04 02:57 | XMS_ITS | Encounter Summary ---
Author Organization [facility] Address [address] [place] [address] Phone Care Team Providers Care Baker Name Role Phone MelindaLuann oh ANUP Unavailable [phone] Adarsh Tuttle MD Unavailable [phone] Sebastine Martinez DO Unavailable [phone] Guru Winters DO Unavailable [phone] Gato Abrams MD Unavailable [phone] Elizabeth Borrego Primary Care Provider [phone] Marina Rosales MD Unavailable [phone] Reason for Referral * Injectables (Routine) - Closed Specialty Diagnoses / Procedures Referred By Contac t Referred To Contact Diagnoses Chronic pain of right knee Swelling of joint, knee, right Procedures Large Joint Injection w/ Ultrasound Guidance Daryn Calderon MD [address] [facility] [address] [place] [address] Phone: tel: fax: [facility] (All Locations) Referral ID Status Reason Start Date Expiration Date Visits Re quested Visits Authorized [id number] Closed 09/23/2023 10/22/2024 1 1 H ATTENDANT Encounter Details Date Type Department Care Team (Late st Contact Info) Description 09/23/2023 Orders Only [facility] Orthopaedic Surgery [address] [facility] [address] [place] [phone] Daryn Calderon MD [address] [facility] [address] [place] [address] Chronic pain of right knee (Primary Dx); Swelling of joint, knee, right [...] on file 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 10/12/2023 ??4:44 PM [...] Visit Diagnoses Diagnosis Chronic pain of right knee- Primary Swelling of joint, knee, right Chronic pain of right knee Swelling of joint, knee, right documented in this encounter Care Teams Baker Relationship Specialty Start Date End Date Elizabeth Borrego PA [address] [facility] [address] [place] [address] PCP - General Internal Medicine 03/25/20 09/27/23 Luann Lawrence NP Nurse Practitioner Nurse Practitioner 01/06/19 Adarsh Tuttle MD [address] [facility] [address] [place] [address] Consulting Physician Gastroenterology 02/22/19 Sebastien Martinez DO [address] [facility] [address] [place] [address] Medical Oncologist/Display Designer Outside Hematology and Oncology 02/22/19 Guru Winters DO [address] [place] [address] Consulting Physician Gastroenterology 02/22/19 Gato Abrams MD [address] [place] [address] Surgeon Surgical Oncology 09/07/19 Marina Rosales MD [address] [place] [address] [address] [place], [place] [address] Consulting Physician General Surgery 03/24/21 documented as of this encounter
--- OUTSIDE RECORDS SUMMARY | 2024-10-04 02:57 | XMS_ITS | Encounter Summary ---
Author Organization [facility] Address [address] [place] [address] Phone Care Team Providers Care Metal Mine Inspector Name Role Phone MelindaLuann oh ANUP Unavailable [phone] Adarsh Tuttle MD Unavailable [phone] Sebastien Martinez DO Unavailable [phone] Guru Winters DO Unavailable [phone] Gato Abrams MD Unavailable [phone] Marina Rosales MD Unavailable [phone] Elizabeth Borrego Primary Care Provider [phone] Reason for Referral * Injectables (Routine) - Closed Specialty Diagnoses / Procedures Referred By Contac t Referred To Contact Diagnoses Swelling of joint, knee, right Procedures Large Joint Injection w/ Ultrasound Guidance Daryn Calderon MD [address] [facility] [address] [place] [address] Phone: tel: fax: [facility] (All Locations) Referral ID Status Reason Start Date Expiration Date Visits Re quested Visits Authorized [id number] Closed 01/10/2024 02/08/2025 1 1 Encounter Details Date Type Department Care Team (Late st Contact Info) Description 01/10/[address] 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 Not on file Not on file documented as of this encounter Plan of Treatment Not on file documented as of this encounter Results * [place] ARTHROCENTESIS ASPIR&/INJ MAJOR JT/BURSA W/US (01/12/2024 3:30 [...] right- Primary Synovial cyst of right popliteal space- Primary Swelling of joint, knee, right documented in this encounter Care Teams Metal Mine Inspector Relationship Specialty Start Date End Date Elizabeth Borrego PA [address] [facility] [address] [place] [address] PCP - General Internal Medicine 09/28/23 Luann Lawrence NP Nurse Practitioner Nurse Practitioner 01/06/19 Adarsh Tuttle MD [address] [facility] [address] [place] [address] Consulting Physician Gastroenterology 02/22/19 Sebastien Martinez DO [address] [facility] [address] [place] [address] Medical Oncologist/Lighting Designer Hematology and Oncology 02/22/19 Guru Winters DO [address] [place] [address] Consulting Physician Gastroenterology 02/22/19 Gato Abrams MD [address] [place] [address] Surgeon Surgical Oncology 09/07/19 Marina Rosales MD [address] [place] [address] Consulting Physician General Surgery 03/24/21 documented as of this encounter
--- OUTSIDE RECORDS SUMMARY | 2024-10-04 02:57 | XMS_ITS | Encounter Summary ---
Author Organization [facility] Healthcare Address [address] [place] [address] Care Team Providers Care Reconsignment Clerk Name Role Phone Luann Lawrence NP Unavailable [phone] Adarsh Tuttle MD Unavailable Sebastien Martinez DO Unavailable [phone] Guru Winters DO Unavailable [phone] Gato Abrams MD Unavailable Elizabeth Borrego Primary Care Provider [phone] Marina Rosales MD Unavailable [phone] Reason for Referral * MRI/CAT/PET Scan (Routine) - Closed Specialty Diagnoses / Procedures Referred By Clemencia t Referred To Contact Radiology Diagnoses Swelling of joint, knee, right Synovial cyst of right popliteal space Procedures [place] [address] [place] [address] Phone: tel: fax: [facility] [address] [place] [address] Referral ID Status Reason Start Date Expiration Date Visits Re quested Visits Authorized [id number] Closed 05/05/2023 11/01/2023 1 1 Reason for Visit * MRI/CAT/PET Scan (Routine) - Closed Specialty Diagnoses / Procedures Referred By Contac t Referred To Contact Radiology Diagnoses Swelling of joint, knee, right Synovial cyst of right popliteal space Procedures MRI [place] [address] [place] [address] Phone: tel: fax: [facility] [place] [id number] [place] [address] Referral ID Status Reason Start Date Expiration Date Visits Re quested Visits Authorized [id number] Closed 05/05/2023 11/01/2023 1 1 Encounter Details Date Type Department Care Team (Latest Contact Info) Description 05/11/2023 7:03 AM CDT - 05/11/2023 11:59 PM CDT Hospital Encounter [facility] - Imaging [address] [place] [address] Swelling of joint, knee, right; Synovial cyst of right popliteal space Discharge Disposition: Discharge to home or self [...] on file 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 Gender Identity Female 06/07/2020 8:39 AM CDT Sexual Orientation Not on file 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 Not on file Not on file documented as of this encounter Medications at Time of Discharge cholecalciferol (VITAMIN D-3) 1,000 unit capsuleIndicati ons:Vitamin D Deficiency Take 2 capsules (2,000 Units total) by mouth lens maker before breakfast buPROPion XL (WELLBUTRIN XL) 150 [...] 1 tablet (200 mg total) by mouth lens maker before breakfast 01/30/2019 09/30/20 23 multivitamin capsuleIndicati ons:Vitamin Deficiency Prevention Take 1 capsule by mouth lens maker before breakfast 04/14/20 24 pravastatin (PRAVACHOL) 40 [...] Procedure Name Priority Date/Time Associated Diagnosis Comments MRI KNEE RIGHT WO CONTRAST Schedule Routine, Read Routine (OP Routine) 05/11/2023 8:22 AM CDT Swelling of joint, knee, right Synovial cyst of right popliteal space documented in this encounter Results * MRI Knee Right [...] Amari Akers M.D. Jason Barber IV, MD IMG MRI PROCEDURES Fi nal Result documented in this encounter Visit Diagnoses Diagnosis Swelling of joint, knee, right Synovial cyst of right popliteal space documented in this encounter Care Teams Reconsignment Clerk Relationship Specialty Start Date End Date Elizabeth Borrego PA [address] [place] [address] PCP - General Internal Medicine 03/25/20 09/27/23 Luann Lawrence, ANUP Nurse Practitioner Nurse Practitioner 01/06/19 Adarsh Tuttle MD [address] [place] [address] Consulting Physician Gastroenterology 02/22/19 Sebastien Martinez DO [address] [place] [address] Medical Oncologist/Object Oriented Programmer Hematology and Oncology 02/22/19 Guru Winters DO [facility] [address] Consulting Physician Gastroenterology 02/22/19 Gato Abrams MD [address] [place] [address] Surgeon Surgical Oncology 09/07/19 Marina Rosales MD [address] [place] [address] Consulting Physician General Surgery 03/24/21 documented as of this encounter
--- OUTSIDE RECORDS SUMMARY | 2024-10-04 02:57 | XMS_ITS | Encounter Summary ---
Author Organization [facility] Address [address] [facility] [address] [place] [address] Phone Care Team Providers Care Pointing Machine Operator Name Role Phone MelindaLuann oh Aditya HEBERT Unavailable [phone] Adarsh Tuttle MD Unavailable [phone] Sebastien Martinez DO Unavailable [phone] Guru Winters DO Unavailable [phone] Gato Abrams MD Unavailable [phone] Marina Rosales MD Unavailable [phone] Elizabeth Borrego Primary Care Provider [phone] Reason for Referral * Consultation (Routine) - Denied Specialty Diagnoses / Procedures Referred By Contac t Referred To Contact Gastroenterology Diagnoses Malignant carcinoid tumor of stomach (HCC) Jennie Minaya NP [address] [facility] [id number] [place] [address] Phone: tel: fax: [facility] (All Locations) Referral ID Status Reason Start Date Expiration Date V isits Requested Visits Authorized [id number] Denied Specialty Services Required 04/03/2024 05/03/2025 1 0 Question Answer Process Instructions: THE AMBULATORY REFERRAL TO GASTROENTEROLOGY IS NOT AN ORDER FOR A PROCEDURE (I.E. EGD, COLONOSCOPY.) USE THE DIRECT SCHEDULING CASE REQUEST ORDER (GI50) IF THE PATIENT REQUIRES A PROCEDURE TO BE PERFORMED. Please select the performing region: [facility] (All Locations) [167] # of visits: 1 * MRI/CAT/PET Scan (Routine) - Pending Review Specialty Diagnoses / Procedures Referred By Contjimmy t Referred To Contact Radiology Diagnoses Malignant carcinoid tumor of stomach (HCC) Gastric carcinoma (HCC) Procedures CT Abdomen Pancreas W WO Contrast Jennie Minaya NP [address] [facility] [id number] [place] [address] Phone: tel: fax: [facility] [address] [place] [address] Referral ID Status Reason Start Date Expiration Date V isits Requested Visits Authorized [id number] Pending Review 04/03/2024 05/03/2025 1 1 Reason for Visit * Reason Comments Follow-up Encounter Details Date Type Department Care Team (Latest Contact Info) Description 04/03/2024 1:30 PM CDT Office Visit [facility] Department of Hepatobiliary, Pancreatic, & Gastrointestinal Surgery [address], [place] [address] Jennie Minaya NP [address] [facility] [id number] [place] [address] Malignant carcinoid tumor of stomach (HCC) (Primary Dx); Gastric carcinoma (HCC) Social History Tobacco Use Types Packs/Day [...] file 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:22 AM STEAM BOX HAND Gender Identity Female 06/07/2020 8:39 AM CDT Sexual Orientation Not on file 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 Gibson is a 58 y.o. female who presents today for a routine follow-up visit after a laparoscopic distal gastrectomy with Billroth II gastrojejunostomy on 08/23/2019 for treatmentof atrophic gastritis, well- differentiated gastric carcinoid tumors, hyper-gastrin state. Final pathology of the surgical specimen demonstrated 2 well-differentiated neuroendocrine tumors (both less than 1 mm). HISTORY OF PRESENT ILLNESS: Since her last visit, Ms. Gibson has been doing well with no specific complaints. She has been having normal bowel movements and urination. No fevers or chills. Her appetite is good and there have been no weight changes. Her energy level is good. Ms. Gibson stopped her octreotide with Dr. Martinez in October,. Her last EGD was in April,, with no new mucosal lesions and a patent and healthy anastomosis. PHYSICAL EXAMINATION: VITAL SIGNS: Weight - 77.6 kg (171 lb) pounds. GENERAL: Alert and oriented x 3 in no apparent distress. ABDOMEN: Soft, non-tender, appropriate xu-incisional tenderness, no rebound/guarding. Incision iswell-healed with no signs of infection or seroma. No evidence of hernia. REVIEW OF LABORATORY AND RADIOLOGY STUDIES: Ms. Gibson underwent a pancreas- protocol CT scan today, which I ordered and have personally reviewed, demonstrating a stable 6-7 mm enhancing lesion in the pancreatic uncinate. No other sites of disease. EXAMINATION: CT ABDOMEN PANCREAS W WO CONTRAST [...] uncinate Electronically signed by: Henok Alas M.D. ASSESSMENT: 58 y.o. female who is doing well after a distal gastrectomy for atrophic gastritis and gastric carcinoids with no evidence of recurrent or metastatic disease. 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 PLAN: Continue surveillance and follow-up. I will see Ms. Gibson back in 1 year for continued follow-up with a repeat CT scan of the abdomen and pelvis with pancreas protocol to monitor her small pancreatic lesion. She should have a repeat endoscopy annually for continued endoscopic surveillance of her stomach for new carcinoid tumors. Patient has requested a referral to [facility] Gastroenterology. I answered all of Ms. Gibson???s questions to her satisfaction. Jennie Minaya NP CC: Patient Care Team: Elizabeth Borrego PA as PCP - General (Internal Medicine) Luann Lawrence NP as Nurse Practitioner (Nurse Practitioner) Adarsh Tuttle MD as Consulting Physician (Gastroenterology) Sebastien Martinez DO as Medical Oncologist/Engine Research Engineer (Hematology and Oncology) Guru Winters DO as Consulting Physician (Gastroenterology) Gato Abrams MD as Surgeon (Surgical Oncology) Marina Rosales MD as Consulting Physician (General Surgery) Wave Solder Offbearer completed by [employer]. Wave Solder Offbearer variances may occur. Cosigned by Gato Abrams MD at 04/03/2024 3:57 PM CDT documented in this encounter Plan of Treatment Scheduled Orders Name Type Priority Associated Diagnoses Orde r Schedule CT Abdomen Pancreas W WO Contrast Imaging Schedule Routine, Read Routine (OP Routine) Malignant carcinoid tumor of stomach (HCC) Gastric carcinoma (HCC) Expected: 04/03/2025, Expires: 04/03/2025 Scheduled Referrals Name Type Priority Associated Diagnoses Order Schedule Ambulatory referral to Gastroenterology Outpatient Referral Routine Malignant carcinoid tumor of stomach (HCC) Expected: 04/17/2024 (Approximate), Expires: 04/03/2025 documented as of this encounter Visit Diagnoses Diagnosis Malignant carcinoid tumor of stomach (HCC)- Primary Malignant carcinoid tumor of the stomach Gastric carcinoma (HCC) Malignant neoplasm of stomach, unspecified site documented in this encounter Discontinued Medications Medication Sig Discontinue Reason Start Date End Da te ascorbic acid (vitamin C) 1,000 mg tablet 07/18/2023 04/03/2024 buPROPion XL (WELLBUTRIN XL) 150 mg 24 hr tabletIndications:Modera te episode of recurrent major depressive disorder (HCC) TAKE ONE TABLET BY MOUTH EVERY MORNING 09/24/2023 04/03/2024 metroNIDAZOLE (METROGEL) 0.75 % (37.5mg/5 gram) vaginal gelIndications:Bacterial Vaginosis Apply to vagina nightly for 5 nights. 12/02/2023 04/03/2024 documented as of this encounter Care Teams Pointing Machine Operator Relationship Specialty Start Date End Date Elizabeth Borrego PA [address] [place] [address] PCP - General Internal Medicine 09/28/23 Luann Lawrence, ANUP Nurse Practitioner Nurse Practitioner 01/06/19 Adarsh Tuttle MD [address] [place] [address] Consulting Physician Gastroenterology 02/22/19 Sebastien Martinez DO [address] [place] [address] Medical Oncologist/Engine Research Engineer Hematology and Oncology 02/22/19 Guru Winters DO [address] [place] [address] Consulting Physician Gastroenterology 02/22/19 Gato Abrams MD [address] [place] [address] Surgeon Surgical Oncology 09/07/19 Marina Rosales MD [address] [place] [address] Consulting Physician General Surgery 03/24/21 documented as of this encounter
--- OUTSIDE RECORDS SUMMARY | 2024-10-04 02:57 | XMS_ITS | Encounter Summary ---
Author Organization [facility] Healthcare Address [address] [place] [address] Care Team Providers Care Customer Advisor Specialist Name Role Phone Luann Lawrence NP Unavailable [phone] Adarsh Tuttle MD Unavailable Sebastien Martinez DO Unavailable [phone] Guru Winters DO Unavailable [phone] Gato Abrams MD Unavailable [phone] Marina Rosales MD Unavailable [phone] Elizabeth Borrego Primary Care Provider [phone] Reason for Referral * Diagnostic Imaging (Routine) - Closed Specialty Diagnoses / Procedures Referred By Contac t Referred To Contact Diagnoses Seronegative rheumatoid arthritis (CMS/HCC) (HCC) Procedures XR Hand Right 2 Views Salome Quiñonez MD [address] [place] [address] Phone: tel: fax: [address] [address] Referral ID Status Reason Start Date Expiration Date Visits Re quested Visits Authorized [id number] Closed 10/01/2023 10/30/2024 1 1 KFEED MILLER * Diagnostic Imaging (Routine) - Closed Specialty Diagnoses / Procedures Referred By Contac t Referred To Contact Diagnoses Seronegative rheumatoid arthritis (CMS/HCC) (HCC) Procedures XR Hand Left 2 Views Salome Quiñonez MD [address] [place] [address] Phone: tel: fax: [address] [address] Referral ID Status Reason Start Date Expiration Date Visits Re quested Visits Authorized [id number] Closed 10/01/2023 10/30/2024 1 1 KFEED MILLER Reason for Visit * Diagnostic Imaging (Routine) - Closed Specialty Diagnoses / Procedures Referred By Contac t Referred To Contact Diagnoses Seronegative rheumatoid arthritis (CMS/HCC) (HCC) Procedures XR Hand Right 2 Views Salome Quiñonez MD [address] [place] [address] Phone: tel: fax: [address] [address] Referral ID Status Reason Start Date Expiration Date Visits Re quested Visits Authorized [id number] Closed 10/01/2023 10/30/2024 1 1 Encounter Details Date Type Department Care Team (Latest Contact Info) Description 10/01/2023 9:06 AM STOCKFEED MILLER - 10/01/2023 11:59 PM STOCKFEED MILLER Hospital Encounter [facility] [address] [place] [address] Seronegative rheumatoid arthritis (CMS/HCC) (HCC) Discharge Disposition: [...] on file 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:22 AM STOCKFEED MILLER Gender Identity Female 06/07/2020 8:39 AM CDT Sexual Orientation Not on file 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 Not on file Not on file documented as of this encounter Medications at Time of Discharge cholecalciferol (VITAMIN D-3) 1,000 unit capsuleIndicatio ns:Vitamin D Deficiency Take 2 capsules (2,000 Units total) by mouth practice or student teacher before breakfast ascorbic acid (vitamin C) 1,000 [...] Deficiency Prevention Take 1 capsule by mouth practice or student teacher before breakfast 4 pravastatin (PRAVACHOL) 40 mg [...] Date/Time Associated Diagnosis Comments XR HAND RIGHT 2 VIEWS Schedule Routine, Read Routine (OP Routine) 10/01/2023 9:28 AM STOCKFEED MILLER Seronegative rheumatoid arthritis (CMS/HCC) (HCC) XR HAND LEFT 2 VIEWS Schedule Routine, Read Routine (OP Routine) 10/01/2023 9:28 AM STOCKFEED MILLER Seronegative rheumatoid arthritis (CMS/HCC) (HCC) XR WRIST RIGHT 3 OR MORE VIEWS Schedule Routine, Read Routine (OP Routine) 10/01/2023 9:28 AM STOCKFEED MILLER Seronegative rheumatoid arthritis (CMS/HCC) (HCC) XR WRIST LEFT 3 OR MORE VIEWS Schedule Routine, Read Routine (OP Routine) 10/01/2023 9:28 AM STOCKFEED MILLER Seronegative rheumatoid arthritis (CMS/HCC) (HCC) documented in this encounter Results * XR Wrist Right 3 or More Views (10/01/2023 9:28 AM STOCKFEED MILLER) Anatomical Region Laterality Modality Upper Extremities, Wrist Right Compute d Radiography 10/01/2023 9:40 AM STOCKFEED MILLER Impressions 10/01/2023 9:40 AM STOCKFEED MILLER 1. ??Nonspecific cystic changes or erosions involving the carpus bilaterally. ??If the clinical concern for inflammatory arthritis is high, this can be further evaluated with bilateral hand and wrist MRI without and with contrast. 2. ??Moderate to severe right 1st and moderate left 1st carpometacarpal osteoarthritis. Electronically signed by: David Burt MD Narrative 10/01/2023 9:40 AM STOCKFEED MILLER EXAMINATION: XR WRIST LEFT 3 OR MORE [...] Hand Right 2 Views (10/01/2023 9:28 AM STOCKFEED MILLER) Anatomical Region Laterality Modality Upper Extremities, Hand Right Computed Radiography 10/01/2023 9:40 AM STOCKFEED MILLER Impressions 10/01/2023 9:40 AM STOCKFEED MILLER 1. ??Nonspecific cystic changes or erosions involving the carpus bilaterally. ??If the clinical concern for inflammatory arthritis is high, this can be further evaluated with bilateral hand and wrist MRI without and with contrast. 2. ??Moderate to severe right 1st and moderate left 1st carpometacarpal osteoarthritis. Electronically signed by: David Burt MD Narrative 10/01/2023 9:40 AM STOCKFEED MILLER EXAMINATION: XR WRIST LEFT 3 OR MORE [...] Hand Left 2 Views (10/01/2023 9:28 AM STOCKFEED MILLER) Anatomical Region Laterality Modality Upper Extremities, Hand Left Computed Radiography 10/01/2023 9:40 AM STOCKFEED MILLER Impressions 10/01/2023 9:40 AM STOCKFEED MILLER 1. ??Nonspecific cystic changes or erosions involving the carpus bilaterally. ??If the clinical concern for inflammatory arthritis is high, this can be further evaluated with bilateral hand and wrist MRI without and with contrast. 2. ??Moderate to severe right 1st and moderate left 1st carpometacarpal osteoarthritis. Electronically signed by: David Burt MD Narrative 10/01/2023 9:40 AM STOCKFEED MILLER EXAMINATION: XR WRIST LEFT 3 OR MORE [...] PROCEDURES Devika l Result * XR Wrist Left 3 or More Views (10/01/2023 9:28 AM STOCKFEED MILLER) Anatomical Region Laterality Modality Upper Extremities, Wrist Left Compute d Radiography 10/01/2023 9:40 AM STOCKFEED MILLER Impressions 10/01/2023 9:40 AM STOCKFEED MILLER 1. ??Nonspecific cystic changes or erosions involving the carpus bilaterally. ??If the clinical concern for inflammatory arthritis is high, this can be further evaluated with bilateral hand and wrist MRI without and with contrast. 2. ??Moderate to severe right 1st and moderate left 1st carpometacarpal osteoarthritis. Electronically signed by: David Burt MD Narrative 10/01/2023 9:40 AM STOCKFEED MILLER EXAMINATION: XR WRIST LEFT 3 OR MORE [...] MD IMG XR PROCEDURES Devika l Result documented in this encounter Visit Diagnoses Diagnosis Seronegative rheumatoid arthritis (CMS/HCC) (HCC) Rheumatoid arthritis documented in this encounter Care Teams Customer Advisor Specialist Relationship Specialty Start Date End Date Elizabeth Borrego PA [address] [place], [place] [id number] PCP - General Internal Medicine 09/28/23 Luann Lawrence, ANUP Nurse Practitioner Nurse Practitioner 01/06/19 Adarsh Tuttle MD [address] [facility] [address] [place] [address] Consulting Physician Gastroenterology 02/22/19 Sebastien Martinez DO [address] [address] Medical Oncologist/Missing Persons Investigator Hematology and Oncology 02/22/19 Guru Winters DO [address] 1852[address] Consulting Physician Gastroenterology 02/22/19 Gato Abrams MD [address] [address] Surgeon Surgical Oncology 09/07/19 Marina Rosales MD [address] [place] [address] Consulting Physician General Surgery 03/24/21 documented as of this encounter
--- OUTSIDE RECORDS SUMMARY | 2024-10-04 02:58 | XMS_ITS | Encounter Summary ---
Author Organization [facility] Address [address] [address] Care Team Providers Care Rn Otolaryngology Name Role Phone Luann Lawrence NP Unavailable [phone] Adarsh Tuttle MD Unavailable [phone] Sebastien Martinez DO Unavailable [phone] Guru Winters DO Unavailable [phone] Gato Abrams MD Unavailable [phone] Elizabeth Borrego Primary Care Provider [phone] Marina Rosales MD Unavailable [phone] Reason for Referral * Cardiology (Routine) - Closed Specialty Diagnoses / Procedures Referred By Contac t Referred To Contact Diagnoses 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 LBBB (left bundle branch block) HTN (hypertension), benign Palpitations Procedures Transthoracic Echo (TTE) Complete W Doppler/CF Cheri Marroquin MD Phone: tel: fax: [facility] Referral ID Status Reason Start Date Expiration Date Visits Re quested Visits Authorized [id number] Closed 10/06/2022 11/05/2023 1 1 WARE APPLICATIONS ENGINEER Reason for Visit * Reason Comments Follow-up 1 yr f/u Hypertension LBBB Encounter Details Date Type Department Care Team (Late st Contact Info) Description 10/06/2022 9:00 AM SOFTWARE APPLICATIONS ENGINEER Office Visit [facility] Cardiology [address] [place] [address] Cheri Marroquin MD [address] [facility] [address] [facility] [place] [address] LBBB (left bundle branch block) (Primary Dx); Palpitations; 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 2-4 times a month 04/27/2022 Q2: How many drinks containi ng alcohol do you have on a typical day when you are drinking? 5 or 6 04/27/2022 Q3: How often do you have si x or more drinks on one occasion? 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 Not on file Not on file documented as of this encounter Last Filed Vital Signs Vital Sign Reading Time Taken Comments Blood Pressure 100/72 10/06/2022 9:18 AM SOFTWARE APPLICATIONS ENGINEER Pulse 55 10/06/2022 9:18 AM SOFTWARE APPLICATIONS ENGINEER Temperature - - Respiratory Rate - - Oxygen Saturation 97% 10/06/2022 9:18 AM SOFTWARE APPLICATIONS ENGINEER Inhaled Oxygen Concentration - - Weight 75.8 kg (167 lb 3.2 oz) 10/06/2022 9:18 A M SOFTWARE APPLICATIONS ENGINEER Height 162.6 cm (5' 4 ) 10/06/2022 9:18 AM SOFTWARE APPLICATIONS ENGINEER Body Mass Index 28.7 10/06/2022 9:18 AM SOFTWARE APPLICATIONS ENGINEER documented in this encounter Progress Notes * Cheri Marroquin MD - 10/06/2022 9:00 AM CST [facility] DATE OF VISIT: 10/06/2022 CHIEF COMPLAINT Chief Complaint Patient presents with Follow-up 1 yr f/u Hypertension LBBB ASSESSMENT Diagnoses and all orders for this visit: LBBB (left bundle branch block) (Primary) - ECG 12 lead - Transthoracic Echo (TTE) Complete W Doppler/CF; Future Palpitations - Transthoracic Echo (TTE) Complete W Doppler/CF; Future 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 Left bundle-branch block chronicity unknown. Follow LBBB QRS duration by ECG. 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 No h/o embolic events/CVA. Clinical observation for now. -Obtain 2D echocardiogram to assess for LV size/systolic and diastolic function, valve pathology, pulmonary pressures, and chamber size to assess Lambl's, changes related to LBBB, palpitations prior to return visit but in the next 6 months. Recommendations to follow. 2. BP controlled goal <140/90mmHg. Monitor BP on routine basis. Call with readings. Continue consistent cardiovascular exercise, weight loss, medication compliance, and low-sodium diet. -On Valsartan/HCTZ 80/12.5mg daily which was reduced due to lower BP tolerating well now. 3. Lipids personally reviewed from 10/06/22 LDL 28, well controlled goal LDL<100. Continue Pravastatin 40mg qhs and lifestyle modification. Quite low recheck FLP in 3-4 months if not sooner with PCP as we may reduce PRavastatin if remains low. 4. Lifestyle modification counseling performed. Weight loss, exercise, reduction in caloric intake. 5. Follow up with Dr. Martinez as scheduled. -12 lead EKG today personally reviewed and discussed sinus bradycardia 52 beats per minute LBBB low-voltage QRS MA 148 milliseconds QRS 150 milliseconds QT corrected 437 milliseconds, abnormal EKG. QRS 09/2021 156 milliseconds, stable. Over 50% of this visit counseling LBBB, HTN, lipids, medications, lifestyle modification. Follow up in the office in 1 year or sooner as needed. Thank you for allowing me the privilege of participating in the care this very pleasant patient. Please do not hesitate to contact me with any additional questions or concerns. DANNY Gibson is a 57 y.o. female with a PMHx of hypertension, [...] upper endoscopy. She underwent partial gastrectomy at [place] without complication. She states over 20 years ago she had seen a manager marketing sales after being told she had an irregular heartbeat for which she wore a Holter monitor and wasplaced on atenolol. She took this medication for several years but does not recall a specific diagnosis. She admits she did not follow-up with a manager marketing sales after seeing him initially. She has now [...] CT spot on pancreas, PET scan at [place] for clarification and if present further workup and possible biopsy. Still feeling well no CP or SOB, no new limitations. Echo done at [place] 02/21/20 EF 60-65% Lambl's excresence noted on [...] falls or syncope. Plaquenil just recently lowered. MEDICAL HISTORY Past Medical History: Diagnosis Date [...] problems Neg Hx MEDICATIONS HOME MEDICATIONS : buPROPion XL (WELLBUTRIN XL) 150 mg 24 hr tablet cholecalciferol (VITAMIN D-3) 1,000 unit capsule cyanocobalamin (Vitamin B-12) 1,000 mcg/mL injection escitalopram (LEXAPRO) 10 mg tablet hydroxychloroquine (PLAQUENIL) 200 mg tablet multivitamin capsule octreotide (SandoSTATIN) 100 mcg/mL injection pravastatin (PRAVACHOL) 40 mg tablet syringe with needle (Syringe 3cc/25Gx1 ) 3 mL 25 gauge x 1 syringe valsartan-hydroCHLOROthiazide (DIOVAN-HCT) 80-12.5 mg per tablet ALLERGIES No Known Allergies REVIEW OF SYSTEMS [...] and are negative. PHYSICAL EXAM Vitals BP 100/72 (BP Location: Right arm, Patient Position: Sitting) Pulse 55 Ht 162.6 cm (5' 4 ) Wt 75.8 kg (167 lb 3.2 oz) SpO2 97% BMI 28.70 kg/m?? Weight: 75.8 kg (167 lb 3.2 oz) Height: 162.6 cm (5' 4 ) Body mass index is 28.7 kg/m??. Physical Exam Vitals reviewed. Constitutional: General: [...] TESTS Lab Results Component Value Date WBC 4.0 09/30/2022 HGB 11.6 (L) 09/30/2022 HCT 35.4 (L) 09/30/2022 CREATININE 0.60 09/30/2022 POTASSIUM 4.4 09/30/2022 BUNSER 16 09/30/2022 Results for orders placed or performed in visit on 09/30/22 Comprehensive metabolic panel Result Value Ref Range Sodium 141 135 - 145 mmol/L Potassium, pl 4.4 3.3 - 4.9 mmol/L Chloride 106 97 - 110 mmol/L CO2 27 22 - 32 mmol/L Anion gap 8 2 - 15 mmol/L BUN 16 8 - 25 mg/dL Creatinine 0.60 0.60 - 1.10 mg/dL Glucose 117 70 - 199 mg/dL Calcium 9.3 8.5 - 10.3 mg/dL Bilirubin, total 0.4 0.1 - 1.2 mg/dL Protein, pl 6.9 6.5 - 8.5 g/dL Albumin 4.4 3.5 - 5.0 g/dL Alk phos 64 40 - 130 Units/L ALT 27 7 - 45 Units/L AST 27 10 - 45 Units/L CBC with auto differential Result Value Ref Range WBC 4.0 3.8 - 9.9 K/cumm Hgb 11.6 (L) 11.9 - 15.5 g/dL Hct 35.4 (L) 35.6 - 45.5 % Plt 222 150 - 400 K/cumm MPV 9.6 9.1 - 12.3 fL RBC 4.05 3.90 - 5.20 M/cumm MCV 87.4 81.3 - 96.4 fL MCH 28.6 27.1 - 33.3 pg MCHC 32.8 32.3 - 35.7 g/dL RDW CV 11.9 11.1 - 14.9 % RDW SD 38.5 35.7 - 48.1 fL Gastrin Result Value Ref Range Gastrin <10 pg/mL Chromogranin A Result Value Ref Range Chromogranin A 30 <93 ng/mL Differential, auto Result Value Ref Range Neutrophil abs 2.5 1.7 - 6.5 K/cumm Lymphocyte abs 1.0 0.8 - 3.3 K/cumm Monocyte abs 0.2 0.2 - 0.8 K/cumm Eosinophil abs 0.2 0.0 - 0.5 K/cumm Neutrophil pct 62.8 % Imm gran pct 0.3 % Lymphocyte pct 25.9 % Monocyte pct 6.0 % Eosinophil pct 4.0 % Basophil pct 1.0 % eGFR Result Value Ref Range eGFR 105 mL/min/1.73 m2 02/21/20 2D Echo: EF 60-65 nl LV wall thickness paradoxical septal wall motion grade II DD trace AI, no . Lambl's excresence Personally reviewed EKG, electronic medical record, and bloodwork/lipids. Antonia Marroquin MD, [facility] This note is dictated and transcribed using [employer] Direct Software. Landscape Engineer variancesmay occur. Despite proofreading, typographical errors may occur. WARE APPLICATIONS ENGINEER documented in this encounter Miscellaneous Notes * Addendum Note - Sunshine Hatch MA - 10/06/2022 9:00 AM CSTAddended by: SUNSHINE HACTH on: 10/06/2022 01:34 PM Modules accepted: Orders WARE APPLICATIONS ENGINEER documented in this encounter Plan of Treatment Not on file documented as of this encounter Procedures Procedure Name Priority Date/Time Associated Diagnosis Comments POCT LIPID PANEL Routine 10/06/2022 1:33 PM SOFTWARE APPLICATIONS ENGINEER Mixed hyperlipidemia ECG 12-LEAD Routine 10/06/2022 LBBB (left bundle branch block) documented in this encounter Results * TRANSTHORACIC ECHO (TTE) COMPLETE W DOPPLER/CF WO CONTRAST (04/05/2023 9:54 AM CDT) Anatomical Region Laterality Modality Ultrasound 04/05/2023 9:23 AM CDT Narrative 04/05/2023 1:16 PM CDT [facility] Medical [facility] Cardiology [address] [place] [address], [place] [address] [address] [facility] [address], [place] [address] P:[phone] P:[phone] Echocardiographic Report Patient Name: JUANJO GIBSON L : 1965 Study Date: 04/05/2023 9:23:11 AM Gender: F Tech: Location: [place] Ref.Provider: CHERI MARROQUIN Height(Cm): 168 BSA: 1.87 Weight(Kg): 75.3 Heart [...] Findings: Interpretation Site: Exam was interpreted at [facility]. Left Ventricle: Normal left ventricular [...] Procedure Note Roge Winters MD - 04/05/2023 [facility] Cardiology [address] [facility] [address], [place] [address] [address] [facility] [address], [place], [place] [address] P:[phone] P:[phone] Echocardiographic Report Patient Name: JUANJO GIBSON LParyann ID: [id number] : [id number] Date: 04/05/2023 9:23:11 AM Gender: FAccession #: [id number] Tech: Christinacation: [place] Ref.Provider: CHERI MARROQUINPeyman(Cm): 168 BSA: 1.87Weight(Kg): 75.3 Heart Rate: 59BP: [...] Findings: Interpretation Site: Exam was interpreted at [facility]. Left Ventricle: Normal left ventricular [...] By: Roge Winters MD 2023-04-05 13:16:46 CDT Result Samuel Marroquin MD CV ECHO PROCEDURES Final Result * POCT lipid panel (10/06/2022 1:33 PM SOFTWARE APPLICATIONS ENGINEER) [facility] Cholesterol, POC 177 mg/dL Comment:GLU = 107 HDL, POC 81 mg/dL Triglycerides, POC 345 mg/dL LDL Cholesterol POC 28 mg/dL Chol/HDL Ratio, POC 0.3 Non-HDL Cholesterol, POC 97 mg/dL Cholesterol Total, POC 177 mg/dL Capillary blood 10/06/2022 1 :33 PM SOFTWARE APPLICATIONS ENGINEER Result Samuel Marroquin MD POINT OF CARE TEST ORDER CARLA Final Result * ECG 12 lead (10/06/2022) Result Samuel Marroquin MD ECG ORDERABLES Edited R esult - Final documented in this encounter Visit Diagnoses Diagnosis LBBB (left bundle branch block)- Primary Other left bundle branch block Palpitations 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 HTN (hypertension), benign Essential hypertension, benign Mixed hyperlipidemia Premature atrial contractions Supraventricular premature beats 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 LBBB (left bundle branch block) Other left bundle branch block HTN (hypertension), benign Essential hypertension, benign Palpitations documented in this encounter Care Teams Rn Otolaryngology Relationship Specialty Start Date End Date Elizabeth Borrego PA [address] [place], [place] [phone] PCP - General Internal Medicine 03/25/20 09/27/23 Luann Lawrence NP Nurse Practitioner Nurse Practitioner 01/06/19 Adarsh Tuttle MD [address] [facility] [address] [place] [address] Consulting Physician Gastroenterology 02/22/19 Sebastien Martinez DO [address] [place] [address] Medical Oncologist/Line Lead Hematology and Oncology 02/22/19 Guru Winters DO [address] [place] [address] Consulting Physician Gastroenterology 02/22/19 Gato Abrams MD [address] [place] [address] Surgeon Surgical Oncology 09/07/19 Marina Rosales MD [address] [facility] [address] [place], [place] [phone] Consulting Physician General Surgery 03/24/21 documented as of this encounter
--- OUTSIDE RECORDS SUMMARY | 2024-10-04 02:58 | XMS_ITS | Encounter Summary ---
Author Organization [facility] Address [address] [place] [address] Phone Care Team Providers Care Cleaning Supervisor Name Role Phone Luann Lawrence ANUP Unavailable [phone] Adarsh Tuttle MD Unavailable [phone] Sebastien Martinez DO Unavailable [phone] Guru Winters DO Unavailable [phone] Gato Abrams MD Unavailable [phone] Elizabeth Borrego Primary Care Provider [phone] Marina Rosales MD Unavailable [phone] Encounter Details Date Type Department Care Team (Late st Contact Info) Description 11/24/2022 Orders Only [facility] Physicians [facility] Oncology [address] [facility] [address] [place] [phone] Sebastien Martinez DO [address] [facility] [address] [place] [address] Malignant carcinoid tumor of stomach (CMS/HCC) (HCC) (Primary Dx) Social History Tobacco [...] on file 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:22 AM REWIND OPERATOR Gender Identity Female 06/07/2020 8:39 AM CDT Sexual Orientation Not on file 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 Not on file Not on file documented as of this encounter Plan of Treatment Not on file documented as of this encounter Visit Diagnoses Diagnosis Malignant carcinoid tumor of stomach (HCC)- Primary Malignant carcinoid tumor of the stomach documented in this encounter Care Teams Cleaning Supervisor Relationship Specialty Start Date End Date Elizabeth Borrego PA [address] [facility] [address] [place], [place] [phone] PCP - General Internal Medicine 03/25/20 09/27/23 uLann Lawrence NP Nurse Practitioner Nurse Practitioner 01/06/19 Adarsh Tuttle MD [address] [facility] [address] [place] [address] Consulting Physician Gastroenterology 02/22/19 Sebastien Martinez DO [address] [place] [id number] Medical Oncologist/Heat Pump Installer Hematology and Oncology 02/22/19 Guru Winters DO [address] [place] [address] Consulting Physician Gastroenterology 02/22/19 Gato Abrams MD [address] [place] [address] Surgeon Surgical Oncology 09/07/19 Marina Rosales MD [address] [place] [address] [address] [place] [address] Consulting Physician General Surgery 03/24/21 documented as of this encounter
--- OUTSIDE RECORDS SUMMARY | 2024-10-04 02:58 | XMS_ITS | Encounter Summary ---
Author Organization [facility] Address [address] [place] [address] Phone Care Team Providers Care Glass Wool Blanket Machine Feeder Name Role Phone Luann Lawrence ANUP Unavailable [phone] Adarsh Tuttle MD Unavailable [phone] Sebastien Martinez DO Unavailable [phone] Guru Winters DO Unavailable [phone] Gato Abrams MD Unavailable [phone] Elizabeth Borrego Primary Care Provider [phone] Marina Rosales MD Unavailable [phone] Reason for Visit * Reason Onset Date Comments Scheduling Appointments 01/26/2023 Encounter Details Date Type Department Care Team (Late st Contact Info) Description 01/26/2023 Telephone [facility] Orthopaedic Surgery 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 No response, so left voice mail. * Telephone Encounter - Bob Fagan RN - 01/26/2023 4:39 PM CDT ----- Message from Fabiola Gibson sent at 01/20/2023 8:39 AM CDT ----- Regarding: Appt 02-10 US guided inj to have fluid removed Contact: I was scheduled Wednesday and appt was cancelled due to provider . I was rescheduled with you for February 10 in [facility]. My knee and the cyst on the back of the knee are so swollen and I can hardlybend my knee. Is there any way I can be seen sooner? I???m not sure in a few days I will be able towalk very well. I am struggling. Thank you. Fabiola Gibson documented in this encounter Plan of Treatment Not on file documented as of this encounter Visit Diagnoses Not on filedocumented in this encounter Care Teams Glass Wool Blanket Machine Feeder Relationship Specialty Start Date End Date Elizabeth Borrego PA [address] [place], [place] [phone] PCP - General Internal Medicine 03/25/20 09/27/23 Luann Lawrence, DESK CLERKS SUPERVISOR Nurse Practitioner Nurse Practitioner 01/06/19 Adarsh Tuttle MD [address] [place] [address] Consulting Physician Gastroenterology 02/22/19 Sebastien Martinez DO [address] [place] [address] Medical Oncologist/Neon Glass Blower Hematology and Oncology 02/22/19 Guru Winters DO [address] [place] [address] Consulting Physician Gastroenterology 02/22/19 Gato Abrams MD [address] [place] [address] Surgeon Surgical Oncology 09/07/19 Marina Rosales MD [address] [place] [address] Consulting Physician General Surgery 03/24/21 documented as of this encounter
--- OUTSIDE RECORDS SUMMARY | 2024-10-04 02:58 | XMS_ITS | Encounter Summary ---
Author Organization [facility] Healthcare Address [address] [place] [address] Care Team Providers Care Emergency Telecommunications Dispatcher Name Role Phone Luann Lawrence NP Unavailable [phone] Adarsh Tuttle MD Unavailable [phone] Sebastien Martinez DO Unavailable [phone] Guru Winters DO Unavailable [phone] Gato Abrams MD Unavailable [phone] Elizabeth Borrego Primary Care Provider [phone] Marina Rosales MD Unavailable [phone] Reason for Referral * Diagnostic Imaging (Routine) - Closed Specialty Diagnoses / Procedures Referred By Clemencia mendez Referred To Contact Diagnoses Breast cancer screening by mammogram Procedures Screening Mammogram Bilateral W Jeremy Elizabeth Borrego PA [address] [place] [address] Phone: tel: fax: [facility] [address] [place] [address] Referral ID Status Reason Start Date Expiration Date Visits Re quested Visits Authorized [id number] Closed 10/29/2022 11/28/2023 1 1 Reason for Visit * Diagnostic Imaging (Routine) - Closed Specialty Diagnoses / Procedures Referred By Contac t Referred To Contact Diagnoses Breast cancer screening by mammogram Procedures Screening Mammogram Bilateral W Elizabeth Mar PA [address] [place] [address] Phone: tel: fax: [facility] [address] [place] [address] Referral ID Status Reason Start Date Expiration Date Visits Re quested Visits Authorized [id number] Closed 10/29/2022 11/28/2023 1 1 Encounter Details Date Type Department Care Team (Latest Contact Info) Description 03/29/2023 7:15 AM CDT - 03/29/2023 11:59 PM CDT Hospital Encounter [facility] - Imaging [address] [facility] [address] [place] [address] Breast cancer screening by mammogram Discharge Disposition: Discharge to home or self [...] on file 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:22 AM REAR ADMIRAL Gender Identity Female 06/07/2020 8:39 AM CDT Sexual Orientation Not on file 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 Not on file Not on file documented as of this encounter Medications at Time of Discharge cholecalciferol (VITAMIN D-3) 1,000 unit capsuleIndicati ons:Vitamin D Deficiency Take 2 capsules (2,000 Units total) by mouth cosmetic counselor before breakfast buPROPion XL (WELLBUTRIN XL) 150 [...] 1 tablet (200 mg total) by mouth cosmetic counselor before breakfast 01/30/2019 09/30/20 23 multivitamin capsuleIndicati ons:Vitamin Deficiency Prevention Take 1 capsule by mouth cosmetic counselor before breakfast 04/14/20 24 octreotide (SandoSTATIN) 100 [...] documented in this encounter Miscellaneous Notes * Result Encounter Note - Elizabeth Borrego PA - 03/29/2023 11:59 PM CDT Let pt know her mammogram is normal and will plan to repeat in 1 year. documented in this encounter Plan of Treatment Not on file documented as of this encounter Procedures Procedure Name Priority Date/Time Associated Diagnosis Comments SCREENING MAMMOGRAM BILATERAL W JEREMY Schedule Routine, Read Routine (OP Routine) 03/29/2023 7:36 AM CDT Breast cancer screening by mammogram documented in this encounter Results * Screening Mammogram Bilateral W Jeremy (03/29/2023 7:36 AM CDT) Anatomical Region Laterality Modality Breast Bilateral Mammography Narrative 03/30/2023 9:52 AM CDT Examination: Screening Mammogram Bilateral W Jeremy: 03/29/23 Clinical: Breast cancer screening by mammogram. ?? Prior Study Comparisons: Comparison was made to the prior available relevant studies at the time of interpretation. Findings: Bilateral No significant masses, malignant type calcifications, skin thickening, nipple retraction, or significant lymphadenopathy is noted in either breast. ??The CAD review showed no significant findings. The breasts have scattered areas of fibroglandular density. The patient will be notified of results by letter. Impression: BI-RADS?? ATLAS category (overall): 1 - Negative ?? There is no mammographic evidence of malignancy. Routine Screening Mammogram in 1 Yr is recommended for bilateral Overall Assessment: 1 - Negative Elizabeth ARANGO IMG MAMMO PROCEDURES Final Result documented in this encounter Visit Diagnoses Diagnosis Breast cancer screening by mammogram documented in this encounter Care Teams Emergency Telecommunications Dispatcher Relationship Specialty Start Date End Date Elizabeth Borrego PA [address] [facility] [address] [place] [address] PCP - General Internal Medicine 03/25/20 09/27/23 Luann Lawrence NP Nurse Practitioner Nurse Practitioner 01/06/19 Adarsh Tuttle MD [address] [facility] [address] [place] [address] Consulting Physician Gastroenterology 02/22/19 Sebastien Martinez DO [address] [place] [address] [id number] Medical Oncologist/Intelligence Support Officer Hematology and Oncology 02/22/19 Guru Winters DO [address] [place] [address] Consulting Physician Gastroenterology 02/22/19 Gaot Abrams MD [address] [place] [address] Surgeon Surgical Oncology 09/07/19 Marina Rosales MD [address] [facility] [address] [place], [place] [id number] Consulting Physician General Surgery 03/24/21 documented as of this encounter
--- OUTSIDE RECORDS SUMMARY | 2024-10-04 02:58 | XMS_ITS | Encounter Summary ---
Author Organization [facility] Address [address] [place] [address] Phone Care Team Providers Care Senior Information Developer Name Role Phone MelindaLuann oh Aditya HEBERT Unavailable [phone] Adarsh Tuttle MD Unavailable [phone] Sebastien Martinez DO Unavailable [phone] Guru Winters DO Unavailable [phone] Gato Abrams MD Unavailable [phone] Elizabeth Borrego Primary Care Provider [phone] Marina Rosales MD Unavailable [phone] Reason for Visit * Episode Based Medications (Routine) - Closed Specialty Diagnoses / Procedures Referred By Contjimmy t Referred To Contact Oncology Diagnoses Malignant carcinoid tumor of stomach (HCC) Procedures ME OCTREOTIDE INJECTION, DEPOT Sebastien Martinez, [facility] [address] Phone: tel: fax: [facility] [address] [address] Phone: tel: fax: Referral ID Status Reason Start Date Expiration Date Visits Re quested Visits Authorized [id number] Closed 2022 02/19/2023 1 50 Encounter Details Date Type Department Care Team (Late st Contact Info) Description 12/23/2022 7:30 AM 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 DIRECTOR Lab [facility] [address] [facility] [address] [place] [address] Malignant carcinoid tumor of stomach (CMS/HCC) (HCC) Social History Tobacco Use Types [...] on file 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:22 AM 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 Gender Identity Female 06/07/2020 8:39 AM CDT Sexual Orientation Not on file 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 Not on file Not on file documented as of this encounter Plan of Treatment Not on file documented as of this encounter Visit Diagnoses Diagnosis Malignant carcinoid tumor of stomach (HCC) Malignant carcinoid tumor of the stomach documented in this encounter Orders Appointment Requests Count Last Ordered Date Fi rst Ordered Date ONCBCN LAB APPOINTMENT 1 12/23/2022 documented in this encounter Care Teams Senior Information Developer Relationship Specialty Start Date End Date Elizabeth Borrego PA [address] [address] PCP - General Internal Medicine 03/25/20 09/27/23 Luann Lawrence NP Nurse Practitioner Nurse Practitioner 01/06/19 Adarsh Tuttle MD [address] [facility] [address] [place] [address] Consulting Physician Gastroenterology 02/22/19 Sebastien Martinez DO [address] [place] [address] [id number] Medical Oncologist/Core Shaper Hematology and Oncology 02/22/19 Guru Winters DO [address] [place] [address] [phone] Consulting Physician Gastroenterology 02/22/19 Gato Abrams MD [address] [place] [address] [id number] Surgeon Surgical Oncology 09/07/19 Marina Rosales MD [address] [facility] [address] [place] [address] Consulting Physician General Surgery 03/24/21 documented as of this encounter
--- OUTSIDE RECORDS SUMMARY | 2024-10-04 02:58 | XMS_ITS | Encounter Summary ---
Author Organization [facility] Address [address] [place] [address] Phone Care Team Providers Care Maintenance Shop Welder Name Role Phone Luann Lawrence ANUP Unavailable [phone] Adarsh Tuttle MD Unavailable [phone] Sebastien Martinez DO Unavailable [phone] Guru Winters DO Unavailable [phone] Gato Abrams MD Unavailable [phone] Elizabeth Borrego Primary Care Provider [phone] Marina Rosales MD Unavailable [phone] Reason for Referral * Injectables (Routine) - Closed Specialty Diagnoses / Procedures Referred By Contac t Referred To Contact Diagnoses Swelling of joint, knee, right Synovial cyst of right popliteal space Procedures Large Joint Injection w/ Ultrasound: R knee Daryn Calderon MD [address] [place] [address] Phone: tel: fax: [facility] (All Locations) Referral ID Status Reason Start Date Expiration Date Visits Re quested Visits Authorized [id number] Closed 02/03/2023 03/04/2024 1 1 Reason for Visit * Reason Comments Injections * Injectables (Routine) - Closed Specialty Diagnoses / Procedures Referred By Contac t Referred To Contact Diagnoses Swelling of joint, knee, right Synovial cyst of right popliteal space Procedures Large Joint Injection w/ [place] [address] [place] [address] Phone: tel: fax: [facility] (All Locations) Referral ID Status Reason Start Date Expiration Date Visits Re quested Visits Authorized [id number] Closed 01/07/2023 02/06/2024 1 1 Encounter Details Date Type Department Care Team (Latest Contact Info) Description 02/03/2023 12:30 PM CDT Procedure visit [facility] Orthopaedic Surgery [address] [facility] 1[address] [place] [address] Daryn Calderon MD [address] 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 Not on file Not on file documented as of this encounter Progress Notes * Daryn Calderon MD - 02/03/2023 12:30 PM CDTAssociated Order(s): Large Joint Injection w/ Ultrasound: R knee Post-Procedure Diagnose(s): Swelling of joint, knee, right; Synovial cyst of right popliteal space PROCEDURE NOTE: Ultrasound guided peripheral injection: Suprapatellar intra-articular knee injection Indications: Knee pain and swelling from osteoarthritis Side: Right Equipment: Sonosite 6-15 MHz linear transducer Patient position: Supine, knee flexed to 30 degrees All images are archived on the Sonosite and uploaded to clinical desktop. A pre-scan of the Right knee was performed demonstrating small suprapatellar effusion. Timeout was performed to identify correct patient and side of procedure Verbal consent was obtained after discussion of the risks (including but not limited to increase pain, infection, bleeding, steroid related side effects such as headache, immunosuppresion from steroids, irritability from steroids) benefits, and alternatives. The skin was prepped and draped in the usual sterile fashion using iodine swabs. Needle of appropriate gauge and length for procedure (25G, 2 inch spinal needle) was directed towards the target effusion in a lateral to medial suprapatellar approach. Then, injectate was administered using volumes documented below: Solution volumes: 1 cc of 40 mg/cc kenalog, 3 cc 0.25% bupivacaine solution. Needle was removed, skin cleansed, and bandage placed over injection site. No complications. Pt reported good symptomatic improvement during anesthetic phase. PLAN: Pt was counseled re: icing and activity modification. The patient will follow up with referring provider. IDaryn MD, performed the entire procedure. Daryn Calderon M.D. Steam Pressure Chamber Operator Division of Physical Medicine and Rehabilitation Department of Orthopaedic Surgery [facility] Daryn Calderon M.D. dictating using M Modal. Window Installation Subcontractor variances may occur. Large Joint Injection w/ Ultrasound: R knee Performed by: Daryn Calderon MD [...] draped in usual sterile fashion Needle Size: 25 G Approach: Superior lateral Ultrasound guided: Yes Ultrasound guidance used for: Real-time guidance and pre-procedure marking Sterile ultrasond techniques: Sterile gel and sterile probe covers were used Medications: 3 mL BUPivacaine HCl 0.25 % (2.5 mg/mL); 40 mg triamcinolone 40 mg/mL Patient tolerance: Patient tolerated the procedure well with no immediate complications * Daryn Calderon MD - 02/03/2023 12:30 PM CDTAssociated Order(s): Large Joint Injection w/ Ultrasound Guidance: R knee Pre-Procedure Diagnose(s): Swelling of joint, knee, right; Synovial cyst of right popliteal space Post-Procedure Diagnose(s): Swelling of joint, knee, right; Synovial cyst of right popliteal space PROCEDURE NOTE: Ultrasound guided peripheral injection: Duke's cyst aspiration Indications: Duke's cyst Side: Right Equipment: [employer] 6-15 MHz linear transducer Patient position: prone, knee extended All images are archived on the [employer] and uploaded to clinical desktop. A pre-scan [...] a lateral to medial suprapatellar approach. Aspiration: 240 cc of serous fluid was aspirated Needle was removed, skin cleansed, and bandage placed over injection site. No complications. Pt reported good symptomatic improvement during anesthetic phase. PLAN: Pt was counseled re: icing and activity modification. See separate note for subsequent intra-articular knee injection. IDaryn MD, performed the entire procedure. Daryn Calderon M.D. Steam Pressure Chamber Operator Division of Physical Medicine and Rehabilitation Department of Orthopaedic Surgery [facility] Daryn Calderon M.D. dictating using M Modal. Window Installation Subcontractor variances may occur. ========= Large Joint Injection [...] covers were used Medications: 4 mL lidocaine PF 10 mg/mL (1 %) Aspirate amount (mL): 240 Aspirate: Serous Patient tolerance: Patient tolerated the procedure well with no immediate complications documented in this encounter Plan of Treatment Not on file documented as of this encounter Procedures Procedure Name Priority Date/Time Associated Diagnosis Comments WI ARTHROCENTESIS ASPIR&/INJ MAJOR JT/BURSA W/US Routine 02/03/2023 12:30 PM CDT Swelling of joint, knee, right Synovial cyst of right popliteal space WI ARTHROCENTESIS ASPIR&/INJ MAJOR JT/BURSA W/US Routine 02/03/2023 12:30 PM CDT Swelling of joint, knee, right Synovial cyst of right popliteal space documented in this encounter Results * WI ARTHROCENTESIS ASPIR&/INJ MAJOR JT/BURSA W/US (02/03/2023 12:30 PM CDT) Narrative Daryn Calderon MD - 02/03/2023 12:30 PM CDT Daryn Calderon MD ? 02/03/2023 ??1:11 PM Large Joint Injection w/ Ultrasound: R knee Performed by: Daryn Calderon MD [...] draped in usual sterile fashion ?Needle Size: ??25 G ??Approach: ??Superior lateral ??Ultrasound guided: Yes ?Ultrasound guidance used for: ??Real-time guidance and pre-procedure marking ??Sterile ultrasond techniques: Sterile gel and sterile probe covers were used ?Medications: ??3 mL BUPivacaine HCl 0.25 % (2.5 mg/mL); 40 mg triamcinolone 40 mg/mL ??Patient tolerance: ??Patient tolerated the procedure well with no immediate complications us Daryn Calderon MD IN CLINIC/BEDSIDE ORDERA BLES Final Result * WI ARTHROCENTESIS ASPIR&/INJ MAJOR JT/BURSA W/US (02/03/2023 12:30 PM CDT) Narrative Daryn Calderon MD - 02/03/2023 12:30 PM CDT Daryn Calderon MD ? 02/03/2023 ??1:11 PM Large Joint Injection w/ Ultrasound Guidance: [...] covers were used ?Medications: ??4 mL lidocaine PF 10 mg/mL (1 %) ??Aspirate amount (mL): ??240 ??Aspirate: ??Serous ??Patient tolerance: ??Patient tolerated the procedure well with no immediate complications us Jason Barber IV, MD IN CLINIC/BEDSIDE ORD ERABLES Final Result documented in this encounter Visit Diagnoses Diagnosis Swelling of joint, knee, right Synovial cyst of right popliteal space documented in this encounter Administered Medications Inactive Administered Medications - up to 3 most recent administrations Medication Order MAR Action Action Date Dose Rate Site BUPivacaine HCl (MARCAINE) 0.25 % (2.5 mg/mL) injection 3 mL 3 mL, other, One-Time Injection, Starting on Wed02/03/23 at 1307, For 1 doseIndications:Swelling of joint, knee, right,Synovial cyst of right popliteal space Given 02/03/2023 1:07 PM CDT 3 mL Right Knee lidocaine PF (XYLOCAINE) 10 mg/mL (1 %) preservative free injection 4 mL 4 mL, other, One-Time Injection, Starting on Wed02/03/23 at 1311, For 1 doseIndications:Swelling of joint, knee, right,Synovial cyst of right popliteal space Given 02/03/2023 1:11 PM CDT 4 mL Right Knee triamcinolone (KENALOG) 40 mg/mL injection 40 mg 40 mg, intra-articular, One-Time Injection, Starting on Wed02/03/23 at 1307, For 1 doseIndications:Swelling of joint, knee, right,Synovial cyst of right popliteal space Given 02/03/2023 1:07 PM CDT 40 mg Right Knee documented in this encounter Care Teams Maintenance Shop Welder Relationship Specialty Start Date End Date Elizabeth Borrego PA [facility] [facility] [address] [place] [address] PCP - General Internal Medicine 03/25/20 09/27/23 Luann Lawrence NP Nurse Practitioner Nurse Practitioner 01/06/19 Adarsh Tuttle MD [address] [facility] [place] [facility] [address] [place] [address] Consulting Physician Gastroenterology 02/22/19 Sebastien Martinez DO [address] [place] [address] Medical Oncologist/Numerical Tool Programmer Hematology and Oncology 02/22/19 Guru Winters DO [address] [place] [address] [id number] Consulting Physician Gastroenterology 02/22/19 Gato Abrams MD [address] [place] [address] Surgeon Surgical Oncology 09/07/19 Marina Rosales MD [address] [facility] [address] [place] [address] Consulting Physician General Surgery 03/24/21 documented as of this encounter
--- OUTSIDE RECORDS SUMMARY | 2024-10-04 02:58 | XMS_ITS | Encounter Summary ---
Author Organization [facility] Address [address] [facility] [address] [place] [address] Phone Care Team Providers Care Guide Escort Name Role Phone Luann Lawrence ANUP Unavailable [phone] Adarsh Tuttle MD Unavailable [phone] Sebastien Martinez DO Unavailable [phone] Guru Winters DO Unavailable [phone] Gato Abrams MD Unavailable [phone] Elizabeth Borrego Primary Care Provider [phone] Marina Rosales MD Unavailable [phone] Reason for Referral * MRI/CAT/PET Scan (Routine) - Closed Specialty Diagnoses / Procedures Referred By Contac t Referred To Contact Radiology Diagnoses Malignant carcinoid tumor of stomach (HCC) Procedures CT Abdomen Pancreas W WO Contrast Gato Abrams MD [address] [facility] [id number] [place] [address] Phone: tel: fax: [address] [address] Referral ID Status Reason Start Date Expiration Date Visits Re quested Visits Authorized [id number] Closed 04/05/2023 05/04/2024 1 1 Reason for Visit * Consultation (Routine) - Closed Specialty Diagnoses / Procedures Referred By Clemencia mendez Referred To Contact Hepatobiliary Surgery Diagnoses Neuroendocrine tumor Elizabeth Borrego PA [address] [place] [address] Phone: tel: fax: [facility] (All Locations) Referral ID Status Reason Start Date Expiration Date V isits Requested Visits Authorized [id number] Closed Specialty Services Required 10/29/2022 11/28/2023 12 12 Encounter Details Date Type Department Care Team (Latest Contact Info) Description 04/05/2023 2:45 PM CDT Office Visit [facility] Department of Hepatobiliary, Pancreatic, & Gastrointestinal Surgery [address]th Floor, [place] [address] Gato Abrams MD [address] [facility] [id number] [place] [address] Malignant carcinoid tumor of stomach (HCC) (Primary Dx); Neuroendocrine tumor Social History Tobacco Use Types Packs/Day Years [...] on file 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 Gender Identity Female 06/07/2020 8:39 AM CDT Sexual Orientation Not on file 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 Gato Abrams M.D., F.A.C.S. Chief, Section of Surgical Oncology air tube releaser [facility] - voice - fax USPS Mailing Address: Overnight Mailing Address: [address] [place] [address] [address] [facility], [address] [place], [place] [address] [place], [place] [address] FOLLOW-UP VISIT DATE OF VISIT: 04/05/23 REASON FOR VISIT: Ms. Gibson presents today for a visit after a laparoscopic distal gastrectomy withBillroth II gastrojejunostomy on 08/23/2019 for treatment of atrophic gastritis, well-differentiated gastric carcinoid tumors, hyper- gastrin state.. Final pathology of the surgical specimen demonstrated two well- differentiated neuroendocrine tumors (both less than 1 mm). HISTORY OF PRESENT ILLNESS: Since I saw her last, Ms. Gibson continues to do well. Her daily routineconsists of normal activities of daily living without limitations. She does have some right knee swelling due to a Duke cyst for which an US-guided aspiration is planned. No abdominal pain, nausea or vomiting. Her urine functions are normal; she does have some episodic diarrhea that is mild and not significantly limiting her quality of life. Her weight has been stable. Ms. Gibson stopped her octreotide with Dr. Martinez in October,. She is scheduled for repeat endoscopy with Dr. Tuttle next month. She had her incisional hernia repaired by Dr. Rosales in April, and has recovered well. Her lastEGD was in March, with no new mucosal lesions and a patent and healthy anastomosis. Stable pancreatic head nodule, 7 mm. Ms. Gibson underwent a pancreas-protocol CT scan today, which I ordered and have personally reviewed, demonstrating a stable 6 mm enhancing lesion in the pancreatic uncinate. No other sites of disease. The implications of these imaging findings and significance for Ms. Gibson's diagnosis include further treatment and follow-up recommendations and were discussed with Ms. Gibson. Ms. Gibson underwent recent blood work, which I have personally reviewed. This includes: CBC: Lab Results Component Value Date WBC 4.2 03/02/2023 HGB 11.4 (L) 03/02/2023 HCT 35.0 (L) 03/02/2023 MCV 89.5 03/02/2023 LABPLAT 244 03/02/2023 BMP: Lab Results Component Value Date GLUCOSE 91 03/02/2023 CALCIUM 9.4 03/02/2023 SODIUM 143 03/02/2023 POTASSIUM 4.1 03/02/2023 CO2 29 03/02/2023 CHLORIDE 105 03/02/2023 BUNSER 14 03/02/2023 CREATININE 0.81 03/02/2023 LFTs: Lab Results Component Value Date ALT 27 03/02/2023 AST 28 03/02/2023 ALKPHOS 72 03/02/2023 BILITOT 0.2 03/02/2023 Albumin Lab Results Component Value Date ALBUMIN 4.4 03/02/2023 The implications of these lab results and significance for Ms. Gibson's diagnosis include further treatment and follow-up recommendations and were discussed with Ms. Gibson. PHYSICAL EXAMINATION: VITAL SIGNS: Height 162.6 cm (5' 4 ), weight 76.7 kg (169 lb). GENERAL: Alert and oriented x 3 in no apparent distress. ABDOMEN: Soft, nontender, nondistended with no masses or hernias. No hepatosplenomegaly. No reboundor guarding. Lap sites are well healed with no evidence of hernia recurrence. ASSESSMENT: 57 y.o. female who is doing well after distal gastrectomy for atrophic gastritis and gastric carcinoids with no evidence of recurrent or metastatic disease. She stopped octreotide for herpresumed sub-cm PNET in October,. PLAN: Ms. Gibson is seeing Dr. Martinez in July and is undergoing a repeat endoscopy next month. I will plan to see Ms. Gibson back in approximately 1 year for continued follow-up with a repeat CT scan of the abdomen and pelvis with pancreas protocol to monitor her small pancreatic lesion. She should have a repeat endoscopy annually for continued endoscopic surveillance of her stomach for new carcinoid tumors, which can be arranged with Dr. Tuttle or Singh. I answered all of Ms. Gibson's questions to her satisfaction. My total encounter time on 04/05/23 was 31 minutes which was spent in the activities documented in the note. This includes time spent prior to the visit and after the visit in direct care of the patient. This time does not include time spent in any separately reportable services. Gato Abrams M.D., F.A.C.S. Chief, Section of Surgical Oncology air tube releaser CC: Patient Care Team: Elizabeth Borrego PA as PCP - General (Internal Medicine) Luann Lawrence NP as Nurse Practitioner (Nurse Practitioner) Adarsh Tuttle MD as Consulting Physician (Gastroenterology) Sebastien Martinez DO as Medical Oncologist/Manager Managing (Hematology and Oncology) Guru Witners DO as Consulting Physician (Gastroenterology) Gato Abrams MD as Surgeon (Surgical Oncology) Marina Rosales MD as Consulting Physician (General Surgery) Spot Facer completed by [employer]. Spot Facer variances may occur. documented in this encounter Plan of Treatment Not on file documented as of this encounter Results * CT Abdomen Pancreas [...] by: Henok Alas M.D. Gato Abrams MD IM CT PROCEDURES Final Result documented in this encounter Visit Diagnoses Diagnosis Malignant carcinoid tumor of stomach (HCC)- Primary Malignant carcinoid tumor of the stomach Neuroendocrine tumor Benign carcinoid tumor of unknown primary site Malignant carcinoid tumor of stomach (HCC) Malignant carcinoid tumor of the stomach documented in this encounter Orders Outpatient Referral Count Last Ordered Date Fir st Ordered Date AMB REFERRAL TO HEPATOBILIARY SURGERY 1 documented in this encounter Care Teams Guide Escort Relationship Specialty Start Date End Date Elizabeth Borrego PA [address] [place], [place] [id number] PCP - General Internal Medicine 03/25/20 09/27/23 Luann Lawrence, ANUP Nurse Practitioner Nurse Practitioner 01/06/19 Adarsh Tuttle MD [address] [place] [address] Consulting Physician Gastroenterology 02/22/19 Sebastien Martinez DO [address] [place] [address] Medical Oncologist/Manager Managing Hematology and Oncology 02/22/19 Guru Winters DO [address] [place] [address] Consulting Physician Gastroenterology 02/22/19 Gato Abrams MD [address] [place] [address] Surgeon Surgical Oncology 09/07/19 Marina Rosales MD [address] [place] [address] Consulting Physician General Surgery 03/24/21 documented as of this encounter
--- OUTSIDE RECORDS SUMMARY | 2024-10-04 02:58 | XMS_ITS | Encounter Summary ---
Author Organization [facility] Address [address] [place] [address] Care Team Providers Care Firestopper Technician Name Role Phone Luann Lawrence NP Unavailable [phone] Adarsh Tuttle MD Unavailable [phone] Sebastien Martinez DO Unavailable [phone] Guru Winters DO Unavailable [phone] Gato Abrams MD Unavailable [phone] Elizabeth Borrego Primary Care Provider [phone] Marina Rosales MD Unavailable [phone] Encounter Details Date Type Department Care Team (Late st Contact Info) Description 03/02/2023 5:00 PM CDT Lab [facility] Outpatient Lab [address] [place] [address] Social History Tobacco Use Types [...] on file 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 Gender Identity Female 06/07/2020 8:39 AM CDT Sexual Orientation Not on file 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 Not on file Not on file Not on file documented as of this encounter Plan of Treatment Not on file documented as of this encounter Procedures Procedure Name Priority Date/Time Associated Diagnosis Comments EGFR Routine 03/02/2023 5:04 PM CDT DIFFERENTIAL AUTO Routine 03/02/2023 5:0 4 PM CDT URINALYSIS AND REFLEX TO MICROSCOPIC AND CULTURE Routine 03/02/2023 5:04 PM CDT CBC WITH AUTO DIFFERENTIAL Routine 03/02/2023 5:04 PM CDT URINALYSIS, MICROSCOPIC ONLY Routine 03/02/2023 5:04 PM CDT ERYTHROCYTE SEDIMENTATION RATE Routine 03/02/2023 5:04 PM CDT CRP (ACUTE PHASE) Routine 03/02/2023 5:0 4 PM CDT COMPREHENSIVE METABOLIC PANEL Routine 03/02/2023 5:04 PM CDT documented in this encounter Results * eGFR (03/02/2023 5:04 PM CDT) [facility] eGFR 85 mL/min/1. 73 m2 [facility] Comment: Interpretive Data Reference Interval Normal ?>/= 90 mL/min/1.73m2 Mildly decreased* ? 60 - 89 mL/min/1.73m2 Mildly to moderately decreased ?45 - 59 mL/min/1.73m2 Moderately to severely decreased ??30 - 44 mL/min/1.73m2 Severely decreased ?15 - 29 mL/min/1.73m2 Kidney Failure ?< 15 ??mL/min/1.73m2 *Relative to young adult level Estimated glomerular filtration rate is determined by the 2020 CKD-EPI equation recommended by the National Kidney Foundation (A Unifying Approach to GFR Estimation: Recommendations of the NKF-ASK Task Force on Reassessing the Inclusion of Race in Diagnosing Kidney Disease, JASN 2020). The CKD-EPI equation should not be used for patients with unstable renal function and has not been validated in children and those over 70. Current interpretive data was last reviewed 2021. Blood 03/02/2023 5:04 PM CDT 03/02/2023 5:27 PM CDT Bessie Vail MD LAB BLOOD ORDERABLES F inal Result Performing Organization Address [facility] Co de Phone Number [facility] [address] [place] [address] * (ABNORMAL) Urinalysis, microscopic only (03/02/2023 5:04 PM CDT) WBC, ur 0-5 0 - 5 /HPF [facility] RBC, ur 0-2 0 - 2 /HPF [facility] Epithelial cells, squamous, ur 1-5 0 - 5 /HPF [facility] Mucous, ur Present(A) [facility] Culture Reflex Comment Reflex conditions for urine culture (WBC >10) not met. [facility] Urine 03/02/2023 5:04 PM CDT 03/02/2023 5:27 PM CDT Bessie Vail MD LAB URINE ORDERABLES F inal Result Performing Organization Address [facility]/ZIP Co de Phone Number [facility] [address] [place] [address] * Differential, auto (03/02/2023 5:04 PM CDT) Neutrophil abs 2.2 1.7 - 6.5 K/cumm [facility] Imm gran abs 0.0 0.0 - 0.1 K/cumm [facility] Lymphocyte abs 1.3 0.8 - 3.3 K/cumm [facility] Monocyte abs 0.3 0.2 - 0.8 K/cumm [facility] Eosinophil abs 0.3 0.0 - 0.5 K/cumm [facility] Basophil abs 0.0 0.0 - 0.1 K/cumm [facility] Neutrophil pct 52.6 % [facility] Comment: Interpretive Data Percent cell count reference ranges are not reported, since discordance with absolute values may lead to misinterpretation of CBC data. Current Interpretive Data was last revised on 2018. Imm gran pct 0.2 % [facility] Comment: Interpretive Data Percent cell count reference ranges are not reported, since discordance with absolute values may lead to misinterpretation of CBC data. Current Interpretive Data was last revised on 2018. Lymphocyte pct 31.7 % [facility] Comment: Interpretive Data Percent cell count reference ranges are not reported, since discordance with absolute values may lead to misinterpretation of CBC data. Current Interpretive Data was last revised on 2018. Monocyte pct 7.4 % [facility] Comment: Interpretive Data Percent cell count reference ranges are not reported, since discordance with absolute values may lead to misinterpretation of CBC data. Current Interpretive Data was last revised on 2018. Eosinophil pct 7.4 % [facility] Comment: Interpretive Data Percent cell count reference ranges are not reported, since discordance with absolute values may lead to misinterpretation of CBC data. Current Interpretive Data was last revised on 2018. Basophil pct 0.7 % [facility] Comment: Interpretive Data Percent cell count reference ranges are not reported, since discordance with absolute values may lead to misinterpretation of CBC data. Current Interpretive Data was last revised on 2018. Blood 03/02/2023 5:04 PM CDT 03/02/2023 5:27 PM CDT us Bessie Vail MD LAB BLOOD ORDERABLES F inal Result [facility] [address] Department [place] [address] * Comprehensive metabolic panel (03/02/2023 5:04 PM CDT) Sodium 143 135 - 145 mmol/L [facility] Potassium, pl 4.1 3.3 - 4.9 mmol/L [facility] Chloride 105 97 - 110 mmol/L [facility] CO2 29 22 - 32 mmol/L [facility] Anion gap 9 2 - 15 mmol/L [facility] BUN 14 8 - 25 mg/dL [facility] Creatinine 0.81 0.60 - 1.10 mg/dL [facility] Glucose 91 70 - 199 mg/dL [facility] Comment: Interpretive Data Fasting glucose >/= 126 mg/dl is diagnostic for diabetes. ?? Fasting is defined as no caloric intake for at least 8 hours. Fasting glucose between 100 mg/dl to 125 mg/dl is diagnostic of prediabetes. In a patient with classic symptoms of hyperglycemia or hyperglycemic crisis, a random glucose >/= 200 mg/dl is diagnostic for diabetes. In the absence of unequivocal hyperglycemia, results should be confirmed by repeat testing. The classification and Diagnosis of Diabetes Diabetes Care 2021; 46: S19-S40. Current interpretive data was last revised 2022. Calcium 9.4 8.5 - 10.3 mg/dL [facility] Bilirubin, total 0.2 0.1 - 1.2 mg/dL [facility] Protein, pl 6.8 6.5 - 8.5 g/dL [facility] Albumin 4.4 3.5 - 5.0 g/dL [facility] Alk phos 72 40 - 130 Units/L [facility] ALT 27 7 - 45 Units/L [facility] AST 28 10 - 45 Units/L [facility] Blood 03/02/2023 5:04 PM CDT 03/02/2023 5:27 PM CDT Bessie Vail MD LAB BLOOD ORDERABLES F inal Result [facility] [address] [facility] [place] [address] * Erythrocyte sedimentation rate (03/02/2023 5:04 PM CDT) Erythrocyte sedimentation rate 15 1 - 30 mm/hr [facility] Blood 03/02/2023 5:04 PM CDT 03/02/2023 5:27 PM CDT Bessie Vail MD LAB BLOOD ORDERABLES F inal Result Performing Organization Address [facility] de Phone Number [facility] [address] [facility] [place] [address] * (ABNORMAL) Urinalysis reflex to microscopic and culture Urine (03/02/2023 5:04 PM CDT) Color, ur Yellow Yellow [facility] Clarity, ur Clear Clear [facility] Specific gravity, ur 1.013 1.003 - 1.030 [facility] pH, urine 6.5 [facility] Protein, ur ql Negative Negative [facility] Glucose, ur ql Negative Negative [facility] Ketones, ur Negative Negative [facility] Bilirubin, ur Negative Negative [facility] Blood, ur Negative Negative [facility] Urobilinogen, ur <2.0 <2.0 mg/dL [facility] Nitrite, ur Negative Negative [facility] Leukocyte esterase, ur 2+(A) Negative [facility] UA reflex comment Reflex to microscopic UA will be performed. [facility] Urine 03/02/2023 5:04 PM CDT 03/02/2023 5:27 PM CDT Narrative [facility] - 03/02/2023 6:04 PM CDT ?? Urine pH is affected by diet, medications, systemic acid-base disturbances, and renal tubular function. ??pH may affect urinary stone formation. ??For example, urine pH below 6.0 may help reduce the tendency for calcium phosphate stones and pH greater than 6.0 may reduce the tendency for uric acid stone formation. Source: [facility] [employer]. Last revised 10-28-2017 Bessie Vail MD LAB MICROBIOLOGY - GEN ERAL ORDERABLES Final Result Performing Organization Address City/[facility]/ZIP Co de Phone Number [facility] [address] [place], [place] [id number] * (ABNORMAL) CBC with auto differential (03/02/2023 5:04 PM CDT) [facility] WBC 4.2 3.8 - 9.9 K/cumm [facility] Hgb 11.4(L) 11.9 - 15.5 g/dL [facility] Hct 35.0(L) 35.6 - 45.5 % [facility] Plt 244 150 - 400 K/cumm [facility] MPV 9.3 9.1 - 12.3 fL [facility] RBC 3.91 3.90 - 5.20 M/cumm [facility] MCV 89.5 81.3 - 96.4 fL [facility] MCH 29.2 27.1 - 33.3 pg [facility] MCHC 32.6 32.3 - 35.7 g/dL [facility] RDW CV 12.1 11.1 - 14.9 % [facility] RDW SD 39.4 35.7 - 48.1 fL [facility] NRBC abs 0.00 0.00 - 0.01 K/cumm [facility] Blood 03/02/2023 5:04 PM CDT 03/02/2023 5:27 PM CDT Bessie Vail MD LAB BLOOD ORDERABLES F inal Result [facility] [address] Department of [employer] [place], [place] [id number] * CRP (acute phase) (03/02/2023 5:04 PM CDT) CRP <3.0 <=10.0 mg/L [facility] Blood 03/02/2023 5:04 PM CDT 03/02/2023 5:27 PM CDT Bessie Vail MD LAB BLOOD ORDERABLES F inal Result [facility] [address] [place] [address] documented in this encounter Visit Diagnoses Not on filedocumented in this encounter Care Teams Firestopper Technician Relationship Specialty Start Date End Date Elizabeth Borrego PA [address] [facility] [address] [place], [place] [id number] PCP - General Internal Medicine 03/25/20 09/27/23 Luann Lawrence, ANUP Nurse Practitioner Nurse Practitioner 01/06/19 Adarsh Tuttle MD [address] [facility] [address] [place] [address] Consulting Physician Gastroenterology 02/22/19 Sebastien Martinez DO [address] [place] [id number] Medical Oncologist/[employer] [place] Hematology and Oncology 02/22/19 Guru Winters DO [address] [place] [id number] Consulting Physician Gastroenterology 02/22/19 Gato Abrams MD [address] [place] [address] [id number] Surgeon Surgical Oncology 09/07/19 Marina Rosales MD [address] [place] [address] Consulting Physician General Surgery 03/24/21 documented as of this encounter
--- OUTSIDE RECORDS SUMMARY | 2024-10-04 02:58 | XMS_ITS | Encounter Summary ---
Author Organization [facility] Address [address] [place] [address] Phone Care Team Providers Care Pet Care Assistant Name Role Phone MelindaLuann oh ANUP Unavailable [phone] Adarsh Tuttle MD Unavailable [phone] Sebastien Martinez DO Unavailable [phone] Guru Winters DO Unavailable Gato Abrams MD Unavailable [phone] Elizabeth Borrego Primary Care Provider [phone] Marina Rosales MD Unavailable [phone] Reason for Referral * Injectables (Routine) - Closed Specialty Diagnoses / Procedures Referred By Contac t Referred To Contact Diagnoses Swelling of joint, knee, right Synovial cyst of right popliteal space Procedures Large Joint Injection w/ [place] [address] [place] [address] Phone: tel: fax: [facility] (All Locations) Referral ID Status Reason Start Date Expiration Date Visits Re quested Visits Authorized [id number] Closed 01/07/2023 02/06/2024 1 1 Reason for Visit * Reason Comments Follow-up Encounter Details Date Type Department Care Team (Late st Contact Info) Description 01/07/2023 3:00 PM CDT Office Visit 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 Interim history: Fabiola returns today in regards to her right knee. She said she did very well for 7 or 8 months afterthe aspiration injection. She now has recurrent swelling in her knee as well as a large recurrent cyst in the popliteal fossa. Injury or trauma. Physical examination: Right knee skin is intact. Moderate effusion. 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 Impression: Recurrent right knee effusion and cyst which responded well to an aspiration and injection Plan: I explained to Fabiola that I would recommend getting an ultrasound-guided aspiration and injection ofthe Duke cyst at the same time as the knee joint itself. We will get that scheduled for her. If she has a good response and this recurs in a similar time frame, she can just try to get the injectionset up without having to come back and see me. She is certainly welcome if she is concerned that anything is different about her complaints. She had all of her questions answered and appears comfortable with this plan going forward. documented in this encounter Plan of Treatment Not on file documented as of this encounter Results * MI ARTHROCENTESIS ASPIR&/INJ MAJOR JT/BURSA W/US (02/03/2023 12:30 [...] right knee Swelling of joint, knee, right Synovial cyst of right popliteal space documented in this encounter Care Teams Pet Care Assistant Relationship Specialty Start Date End Date Elizabeth Borrego PA [address] [place], [place] [id number] PCP - General Internal Medicine 03/25/20 09/27/23 Luann Lawrence, ANUP Nurse Practitioner Nurse Practitioner 01/06/19 Adarsh Tuttle MD [address] [place] [address] Consulting Physician Gastroenterology 02/22/19 Sebastien Martinez DO [facility] [address] Medical Oncologist/Senior Designer Hematology and Oncology 02/22/19 Guur Winters DO [facility] [address] Consulting Physician Gastroenterology 02/22/19 Gato Abrams MD [facility] [address] Surgeon Surgical Oncology 09/07/19 Marina Rosales MD [address] [place] [address] Consulting Physician General Surgery 03/24/21 documented as of this encounter
--- OUTSIDE RECORDS SUMMARY | 2024-10-04 02:58 | XMS_ITS | Encounter Summary ---
Author Organization [facility] Address [address] [place] [address] Phone Care Team Providers Care Ship Engineer Name Role Phone MelindaLuann oh ANUP Unavailable Adarsh Tuttle MD Unavailable [phone] Vick Li DO Unavailable [phone] Guru Winters DO Unavailable [phone] Gato Abrams MD Unavailable [phone] Elizabeth Borrego Primary Care Provider [phone] Marina Rosales MD Unavailable [phone] Reason for Referral * Consultation (Routine) - Closed Specialty Diagnoses / Procedures Referred By Contjimmy t Referred To Contact Oncology Diagnoses Malignant carcinoid tumor of stomach (HCC) Vick Li DO [facility] [address] Phone: tel: fax: Vick Li DO [address] [address] Phone: tel: fax: Referral ID Status Reason Start Date Expiration Date V isits Requested Visits Authorized [id number] Closed Specialty Services Required 12/23/2022 10/17/2023 99 99 Question Answer Please select the performing region: [facility] (All Locations) [[id number]] Please select the performing department: [facility] IM ONC MHE2 180 [[id number]] Is this referral for Breast Health Multi-Disciplinary Clinic? No Does the patient have a diagnosis of a Head and Neck cancer? No To provider: VICK LI [[id number]] # of visits: 1 ER DIVERSIFIED CROPS Reason for Visit * Reason Comments Follow-up * Consultation (Routine) - Closed Specialty Diagnoses / Procedures Referred By Contjimmy t Referred To Contact Oncology Diagnoses Malignant carcinoid tumor of stomach (HCC) Vick Li, [address] [place] [address] Phone: tel: fax: Vick Li, [address] [place] [address] Phone: tel: fax: Referral ID Status Reason Start Date Expiration Date V isits Requested Visits Authorized [id number] Closed Specialty Services Required 12/23/2022 10/17/2023 99 99 Encounter Details Date Type Department Care Team (Late st Contact Info) Description 01/06/2023 4:00 PM CDT Office Visit [facility] [address] [place] [address] [place] [phone] Vick Li, DO [address] [place] [phone] Malignant carcinoid tumor of stomach (CMS/HCC) (HCC) [...] on file 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 Gender Identity Female 06/07/2020 8:39 AM CDT Sexual Orientation Not on file 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 Not on file Not on file documented as of this encounter Last Filed Vital Signs Vital Sign Reading Time Taken Comments Blood Pressure 110/73 01/06/2023 4:12 PM CDT Pulse 63 01/06/2023 4:12 PM CDT Temperature 36.4 ??C (97.6 ??F) 01/06/2023 4:12 PM CD T Respiratory Rate 17 01/06/2023 4:12 PM CDT Oxygen Saturation 97% 01/06/2023 4:12 PM CDT Inhaled Oxygen Concentration - - Weight 75.5 kg (166 lb 6.4 oz) 01/06/2023 4:12 P M CDT no shoes Height 162.6 cm (5' 4 ) 01/06/2023 4:12 PM CDT Body Mass Index 28.56 01/06/2023 4:12 PM CDT documented in this encounter Progress Notes * Vick Li, - 01/06/2023 4:00 PM CDT Patient ID: Fabiola Gibson is a 57 y.o. female. Primary Care Provider: Elizabeth Borrego PA Assessment/Plan 1. 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 2. Pernicious anemia-remission. 3. Localized pancreatic neuroendocrine tumor. Octreotide induced hypoglycemia. This has resolved the sensation of these injections Recommendations: 1. Based on recent CT scan and laboratory assessment, she remains a complete remission 2. She is now on active surveillance. 3. I will see her back here in July with repeat CT scan of the abdomen and pelvis with contrast. 4. She will undergo her yearly endoscopy procedure in April. My total encounter time on 01/06/2023 was 20 minutes which was spent in the activities documented inthe note. This includes time spent prior to the visit and after the visit in direct care of the patient. This time does not include time spent in any separately reportable services. Patient Active Problem List Diagnosis Malignant carcinoid [...] space Effusion of right knee BMI 29.0-29.9,adult Snoring Diagnoses and all orders for this visit: Malignant carcinoid tumor of stomach (CMS/HCC) (HCC) (Primary) - Ambulatory referral to Oncology; Future - Clinic Appointment Request Follow up; VICK LI; Clinic Appointment Location: [facility] IM ONC E2 180 - Lab Draw Appt Request Arm Draw or Central Line Draw? Arm; What is your ordering location? [facility] IM Onc/Hem/BMT; Where will this patient receive treatment? [facility]; Future - Clinic Appointment Request Follow up; VICK LI; Clinic Appointment Location: [facility] IM ONC E2 180; Future - CT abdomen with contrast; Future Subjective Interval History: Stage I carcinoid tumor of [...] was then referred to Dr. Tuttle at [facility] for EUS evaluation. Thiswas performed on [...] Gato Abrams in Surgical Oncology Department at [facility]. 8. On February 24, 2019, she underwent [...] A in May was better but still [id number]. 12. In May of 2019, we had [...] decided to proceed with medical therapy using [id number] mg IM every [address] [...] steatorrhea but easily controlled with diet and ogde-rfi-awdtkfs medications. 19. Patient has been on octreotide [...] continue with the octreotide injections indefinitely. 25. From our last visit until October, she was on continued octreotide injections at 10 mg IM everymonth. 26. In October, she message me that she wanted to stop the injections due to intermittent hypoglycemic episodes. That point we discontinue the octreotide injections. 27. She returns for her 6 month follow-up visit. She is doing well without any complaints or problems. She has a new job. Does have arthritis or cyst of the right knee. December 23: CT scan the chest, abdomen pelvis showed unchanged hypervascular nodule in the pancreatic uncinate process without any evidence of metastatic cancer. Interval Notes: I have reviewed: allergies, current medications, past family history, past medical history, past social history, past surgical history and problem list HPI Review of Systems Constitutional: Negative. Negative for appetite change and chills. HENT: Negative. Eyes: Negative. Respiratory: Negative. Cardiovascular: Negative. Gastrointestinal: Negative. Endocrine: Negative. Genitourinary: Negative. Musculoskeletal: Negative. Skin: Negative. Neurological: Negative. Hematological: Negative. Psychiatric/Behavioral: Negative. Pain: negative. Objective Physical Exam: Vital Signs for this encounter: BSA: 1.85 meters squared BP 110/73 (BP Location: Left arm) Pulse 63 Temp 36.4 ??C (97.6 ??F) (Oral) Resp 17 Ht 162.6cm (5' 4 ) Wt 75.5 kg (166 lb 6.4 oz) Comment: no shoes SpO2 97% BMI 28.56 kg/m?? Physical Exam Constitutional: Appearance: She is well-developed. HENT: Head: Normocephalic and atraumatic. Right Ear: External ear normal. Left Ear: External ear normal. Nose: Nose normal. Eyes: Conjunctiva/sclera: Conjunctivae normal. Pupils: Pupils are equal, round, and reactive to light. Cardiovascular: Rate and Rhythm: Normal rate and regular rhythm. Pulmonary: Effort: Pulmonary effort is normal. Abdominal: General: Bowel sounds are normal. Palpations: Abdomen is soft. Musculoskeletal: General: Normal range of motion. Cervical back: Normal range of motion and neck supple. Skin: General: Skin is warm and dry. Neurological: General: No focal deficit present. Mental Status: She is alert and oriented to person, place, and time. Psychiatric: Behavior: Behavior normal. Performance Status: Asymptomatic Results: documented in this encounter Plan of Treatment Scheduled Referrals Name Type Priority Associated Diagnoses Order Schedule Ambulatory referral to Oncology Outpatient Referral Routine Malignant carcinoid tumor of stomach (CMS/HCC) (HCC) Expected: 01/06/2023 (Approximate), Expires: 12/24/2023 documented as of this encounter Visit Diagnoses Diagnosis Malignant carcinoid tumor of stomach (HCC)- Primary Malignant carcinoid tumor of the stomach documented in this encounter Orders Appointment Requests Count Last Ordered Date Fi rst Ordered Date ONCBCN CLINIC APPOINTMENT REQUEST 1 023 documented in this encounter Care Teams Ship Engineer Relationship Specialty Start Date End Date Elizabeth Borrego PA [address] [place] [address] PCP - General Internal Medicine 03/25/20 09/27/23 Luann Lawrence NP Nurse Practitioner Nurse Practitioner 01/06/19 Adarsh Tuttle MD [address] [facility] [address] [address] [place] [address] Consulting Physician Gastroenterology 02/22/19 iVck Li DO [address] [facility] [address] [place] [address] Medical Oncologist/Chart Calculator Hematology and Oncology 02/22/19 Guru Winters DO [address] [facility] [address] [place] [address] Consulting Physician Gastroenterology 02/22/19 Gato Abrams MD [address] [facility] [address] [place] [address] Surgeon Surgical Oncology 09/07/19 Marina Rosales MD [address] [place] [address] Consulting Physician General Surgery 03/24/21 documented as of this encounter
--- OUTSIDE RECORDS SUMMARY | 2024-10-04 02:58 | XMS_ITS | Encounter Summary ---
Author Organization [facility] Address [address] [place] [address] Phone Care Team Providers Care Hydrographical Technical Officer Name Role Phone MelindaLuann oh ANUP Unavailable Adarsh Tuttle MD Unavailable [phone] Vick Li DO Unavailable [phone] Guru Winters DO Unavailable [phone] Gato Abrams MD Unavailable [phone] Elizabeth Borrego Primary Care Provider [phone] Marina Rosales MD Unavailable [phone] Reason for Visit * Reason Comments MAlignant carcinoid tumor of stomach Follow-up * Consultation (Routine) - Closed Specialty Diagnoses / Procedures Referred By Clemencia mendez Referred To Contact Oncology Diagnoses Malignant carcinoid tumor of stomach (HCC) Vick Li DO [address] [place] [address] Phone: tel: fax: Vick Li DO [address] [place] [address] Phone: tel: fax: Referral ID Status Reason Start Date Expiration Date V isits Requested Visits Authorized [id number] Closed Specialty Services Required 07/08/2022 10/17/2022 99 99 Encounter Details Date Type Department Care Team (Late st Contact Info) Description 10/07/2022 8:15 AM AGILE JAVA DEVELOPER Office Visit [facility] Oncology [address] [facility] [address] [place] [address] Vick Li DO [address] [facility] [address] [place], [place] [id number] Malignant carcinoid tumor of stomach (CMS/HCC) (HCC) [...] on file 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:22 AM AGILE JAVA DEVELOPER Gender Identity Female 06/07/2020 8:39 AM CDT Sexual Orientation Not on file 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 Not on file Not on file documented as of this encounter Last Filed Vital Signs Vital Sign Reading Time Taken Comments Blood Pressure 119/79 10/07/2022 8:21 AM AGILE JAVA DEVELOPER Pulse 52 10/07/2022 8:21 AM AGILE JAVA DEVELOPER Temperature 36.3 ??C (97.3 ??F) 10/07/2022 8 :21 AM AGILE JAVA DEVELOPER Respiratory Rate 18 10/07/2022 8:21 AM AGILE JAVA DEVELOPER Oxygen Saturation 98% 10/07/2022 8:2 1 AM AGILE JAVA DEVELOPER Inhaled Oxygen Concentration - - Weight 75.8 kg (167 lb 3.2 oz) 10/07/2022 8:21 AM AGILE JAVA DEVELOPER without shoes Height 162.6 cm (5' 4 ) 10/07/2022 8:21 AM AGILE JAVA DEVELOPER Body Mass Index 28.7 10/07/2022 8:21 AM AGILE JAVA DEVELOPER documented in this encounter Progress Notes * Vick Li, DO - 10/07/2022 8:15 AM CST Patient ID: Fabiola Gibson is a 57 y.o. female. Primary Care Provider: Elizabeth Borrego PA Assessment/Plan 1. 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 2. Pernicious anemia. 3. Localized pancreatic neuroendocrine tumor. Recommendations: 1. At this visit, I do not detect any signs of recurrent disease or progression of her cancer. 2. Therefore, patient will continue with once a month octreotide injections at 10 mg intramuscularly. 3. I will see the patient back in 3 months for follow-up. 4. She is scheduled undergo repeat CT scan in the spring with Dr. Abrams. My total encounter time on 10/07/2022 was 20 minutes which was spent in the activities documented in the note. This includes time spent prior to the visit and after the visit in direct care of the patient. This time does not include time spent in any separately reportable services. Patient Active Problem List Diagnosis Malignant carcinoid tumor of stomach (CMS/HCC) (HCC) Carcinoid tumor of stomach Pernicious anemia [...] (HCC) Submucosal lesion of stomach Fever COVID-19 BMI 26.0-26.9,adult Mixed hyperlipidemia Swelling of joint, knee, right Synovial cyst of right popliteal space Effusion of right knee Diagnoses and all orders for this visit: Malignant carcinoid tumor of stomach (CMS/HCC) (HCC) (Primary) - Clinic Appointment Request Follow up; VICK LI; Clinic Appointment Location: [facility] IM ONC MHE2 180 - Injection Appointment Request Is this the patient's first treatment? No; What is your ordering location? [facility] IM [facility]c/Hem/BMT; Where will this patient receive treatment? [facility]; Future - Injection Appointment Request Is this the patient's first treatment? No; What is your ordering location? [facility]/Hem/BMT; [facility]; Future - Clinic Appointment Request Follow up; VICK LI; Clinic Appointment Location: [facility] IM ONC MHE2 180; Future - Lab Draw Appt Request Arm Draw or Central Line Draw? Arm; What is your ordering location? [facility] IM Onc/Hem/BMT; Where will this patient receive treatment? [facility]; Future - Injection Appointment Request Is this the patient's first treatment? No; What is your ordering location? [facility] IM Onc/Hem/BMT; Where will this patient receive treatment? [facility]; Future - Chromogranin A; Future - Gastrin; Future - CBC with auto differential; Future - Comprehensive metabolic panel; Future Subjective Interval History: Stage I carcinoid [...] was then referred to Dr. Tuttle at [facility] for EUS evaluation. Thiswas performed on January [...] Gato Abrams in Surgical Oncology Department at [facility]. 8. On February 24, 2019, she [...] A in May was better but still [id number]. 12. In May of 2019, we had [...] decided to proceed with medical therapy using npagikyeya13 mg IM every [address] [...] steatorrhea but easily controlled with diet and dqrw-pap-wenelab medications. 19. Patient has been on octreotide [...] is T1 N0 23. On April 27, Dr. Tuttle repeated the EUS EGD showing [...] neuroendocrine tumor. The nodule/lesion was stable 24. Three month follow-up visit. She continues to be on octreotide LAR 10 mg IM every 4 weeks . Sheoccasionally has some hypoglycemic episodes but managed diet. At our last visit June, PET gallium DOTATATE scan showed focal uptake within uncinate pancreassuggesting residual tumor. Patient not have any signs regional distant metastatic disease. That point decided continue with the octreotide injections indefinitely. Interval Notes: I have reviewed: allergies, current [...] this encounter: BSA: 1.85 meters squared BP 119/79 (BP Location: Left arm) Pulse 52 Temp 36.3 ??C (97.3 ??F) (Oral) Resp 18 Ht 162.6cm (5' 4 ) Wt 75.8 kg (167 lb 3.2 oz) Comment: without shoes SpO2 98% BMI 28.70 kg/m?? Physical Exam Constitutional: Appearance: She is [...] Behavior: Behavior normal. Performance Status: Asymptomatic Results: WBC Date Value Ref Range Status 09/30/2022 4.0 3.8 - 9.9 K/cumm Final Comment: Testing performed by: [address] [address] Hgb Date Value Ref Range Status 09/30/2022 11.6 (L) 11.9 - 15.5 g/dL Final Comment: Testing performed by: [address] [address] Hct Date Value Ref Range Status 09/30/2022 35.4 (L) 35.6 - 45.5 % Final Comment: Testing performed by: [address] [address] Plt Date Value Ref Range Status 09/30/2022 222 150 - 400 K/cumm Final Comment: Testing performed by: [address] [address] Creatinine Date Value Ref Range Status 09/30/2022 0.60 0.60 - 1.10 mg/dL Final Comment: Testing performed by: [address] [address] AST Date Value Ref Range Status 09/30/2022 27 10 - 45 Units/L Final Comment: Testing performed by: [address], [place]., [address] PET gallium DOTATATE scan on July 06 showed the followin. Focal uptake within the uncinate process of the pancreas, likely related to residual neuroendocrine tumor. There is separate, normal physiologic curvilinear uptake within the uncinate process. 2. No evidence of distant metastatic disease. 3. Ground-glass nodule in the right lower lobe is unchanged from 2020 and shows no abnormal uptake. 4. Ground-glass nodule measuring 5 mm in the right lower lobe is unchanged from 2020 and shows no abnormal uptake. Continued attention on follow-up imaging is recommended. 5. Prior partial gastrectomy and gastrojejunostomy without associated abnormal activity. E JAVA DEVELOPER documented in this encounter Plan of Treatment Not on file documented as of this encounter Results * Comprehensive metabolic panel (12/23/2022 7:55 AM AGILE JAVA DEVELOPER) Sodium 141 135 - 145 mmol/L ANDREA Comment:Testing performed by : [address] [address] Potassium, pl 4.3 3.3 - 4.9 mmol/L ANDREA Comment:Testing performed by : [address] [address] Chloride 104 97 - 110 mmol/L ANDREA Comment:Testing performed by : [address] [address] CO2 28 22 - 32 mmol/L ANDREA Comment:Testing performed by : [address] [address] Anion gap 9 2 - 15 mmol/L ANDREA Comment:Testing performed by : [address] [address] BUN 13 8 - 25 mg/dL ANDREA Comment:Testing performed by : [address] [address] Creatinine 0.70 0.60 - 1.10 mg/dL ANDREA Comment:Testing performed by : [address] [address] Glucose 101 70 - 199 mg/dL ANDREA Comment: Interpretive Data Fasting glucose >/= 126 [...] Current interpretive data was last revised 2022. Testing performed by: [address] [address] Calcium 9.6 8.5 - 10.3 mg/dL ANDREA Comment:Testing performed by : [address] [address] Bilirubin, total 0.5 0.1 - 1.2 mg/dL ANDREA Comment:Testing performed by : [address] [address] Protein, pl 7.1 6.5 - 8.5 g/dL ANDREA Comment:Testing performed by : [address] [address] Albumin 4.4 3.5 - 5.0 g/dL ANDREA Comment:Testing performed by : [address] [address] Alk phos 63 40 - 130 Units/L ANDREA Comment:Testing performed by : [address] [address] ALT 21 7 - 45 Units/L ANDREA Comment:Testing performed by : [address] [address] AST 26 10 - 45 Units/L ANDREA Comment:Testing performed by : [address] [address] Blood 12/23/2022 7:55 AM AGILE JAVA DEVELOPER 12/23/2022 7:59 AM AGILE JAVA DEVELOPER Vick Li DO LAB BLOOD ORDERABLES Final R esult ANDREA [address] [facility] Department [place] [address] * (ABNORMAL) CBC with auto differential (12/23/2022 7:55 AM AGILE JAVA DEVELOPER) WBC 3.7(L) 3.8 - 9.9 K/cumm ANDREA CASTILLO Comment:Testing performed by : [address] [address] Hgb 12.5 11.9 - 15.5 g/dL ANDREA Comment:Testing performed by : [address] [address] Hct 37.5 35.6 - 45.5 % ANDREA Comment:Testing performed by : [address] [address] Plt 263 150 - 400 K/cumm ANDREA Comment:Testing performed by : [address] [address] MPV 9.6 9.1 - 12.3 fL ANDREA Comment:Testing performed by : [address] [address] RBC 4.32 3.90 - 5.20 M/cumm ANDREA Comment:Testing performed by : [address] [address] MCV 86.8 81.3 - 96.4 fL ANDREA CASTILLO Comment:Testing performed by : [address] [address] MCH 28.9 27.1 - 33.3 pg ANDREA CASTILLO Comment:Testing performed by : [address] [address] MCHC 33.3 32.3 - 35.7 g/dL ANDREA CASTILLO Comment:Testing performed by : [address] [address] RDW CV 12.1 11.1 - 14.9 % ANDREA CASTILLO Comment:Testing performed by : [address] [address] RDW SD 38.9 35.7 - 48.1 fL ANDREA CASTILLO Comment:Testing performed by : [address] [address] Blood 12/23/2022 7:55 AM AGILE JAVA DEVELOPER 12/23/2022 7:59 AM AGILE JAVA DEVELOPER Vick Li LAB BLOOD ORDERABLES Final R esult Performing Organization Address [facility] de Phone Number ANDREA [facility] [place] [address] * Gastrin (12/23/2022 7:55 AM AGILE JAVA DEVELOPER) Gastrin <10 pg/mL ANDREA CASTILLO Comment: REFERENCE VALUE <100 Reference ranges valid for >= 8 hour fast. Test Performed by: [place] [address] Animal Care Assistant: Bjorn Morris M.D. Ph.D.; CLIA# [id number] Testing performed by: [address] [address] Blood 12/23/2022 7:55 AM AGILE JAVA DEVELOPER 12/23/2022 7:59 AM AGILE JAVA DEVELOPER Vick Li LAB BLOOD ORDERABLES Final R esult Performing Organization Address [facility] de Phone Number MAYITAVO [address] [place] [address] * Chromogranin A (12/23/2022 7:55 AM AGILE JAVA DEVELOPER) Chromogranin A 21 <93 ng/mL ANDREA CASTILLO Comment: ADDITIONAL INFORMATION This test was developed and its performance characteristics determined by [facility] in a manner consistent with CLIA requirements. This test has not been cleared or approved by the U.S. Food and Drug Administration. In some immunoassays, the presence of unusually [...] medical history, clinical examination and other findings. The testing method is a homogeneous time-resolved immunofluorescent assay manufactured by [employer] and performed on the [employer] KrTestObjector Compact Plus. ? Values obtained with different assay methods or kits may be different and cannot be used interchangeably. ? Test results cannot be interpreted as absolute evidence for the presence or absence of malignant disease. Test Performed by: [facility] Laboratories [place] [id number] Animal Care Assistant: Bjorn Morris M.D. Ph.D.; CLIA# [id number] Testing performed by: [facility], [address] [place] [address]., [address] Blood 12/23/2022 7:55 AM AGILE JAVA DEVELOPER 12/23/2022 7:59 AM AGILE JAVA DEVELOPER us Vick Li DO LAB BLOOD ORDERABLES Final R esult ANDREA CASTILLO [address] [facility] Department [place] [address] documented in this encounter Visit Diagnoses Diagnosis Malignant carcinoid tumor of stomach (HCC)- Primary Malignant carcinoid tumor of the stomach documented in this encounter Orders Appointment Requests Count Last Ordered Date Fi rst Ordered Date ONCBCN CLINIC APPOINTMENT REQUEST 2 023 10/07/2022 ONCBCN LAB APPOINTMENT 1 12/23/2022 ONCBCN INJECTION APPOINTMENT REQUEST 1 10/18 documented in this encounter Care Teams Hydrographical Technical Officer Relationship Specialty Start Date End Date Elizabeth Borrego PA [address] [place] [address] PCP - General Internal Medicine 03/25/20 09/27/23 Luann Lawrence, ANUP Nurse Practitioner Nurse Practitioner 01/06/19 Adarsh Tuttle MD [address] [place] [address] Consulting Physician Gastroenterology 02/22/19 Vick Li DO [address] [place] [address] Medical Oncologist/Cook Helper Juice Hematology and Oncology 02/22/19 Guru Winters DO [address] [place] [address] Consulting Physician Gastroenterology 02/22/19 Gato Abrams MD [address] [place] [address] Surgeon Surgical Oncology 09/07/19 Marina Rosales MD [address] [place] [address] Consulting Physician General Surgery 03/24/21 documented as of this encounter
--- OUTSIDE RECORDS SUMMARY | 2024-10-04 02:58 | XMS_ITS | Encounter Summary ---
Author Organization [facility] Address [address] [place] [address] Care Team Providers Care Auto Locator Name Role Phone Melinda Luann Burgess NP Unavailable [phone] Adarsh Tuttle MD Unavailable [phone] Sebastien Martinez DO Unavailable [phone] Guru Winters DO Unavailable [phone] Gato Abrams MD Unavailable [phone] Elizabeth Borrego Primary Care Provider [phone] Marina Rosales MD Unavailable [phone] Encounter Details Date Type Department Care Team (Late st Contact Info) Description 10/27/2022 Orders Only [facility] Family Medicine [address] [place] [address] Elizabeth Borrego PA [address] [place] [address] Mixed hyperlipidemia (Primary Dx); Other fatigue Social History Tobacco Use Types Packs/Day Years [...] on file 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 Gender Identity Female 06/07/2020 8:39 AM CDT Sexual Orientation Not on file 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 file Not on file documented as of this encounter Plan of Treatment Not on file documented as of this encounter Procedures Procedure Name Priority Date/Time Associated Diagnosis Comments TSH Routine 10/29/2022 Other fatigue LIPID PANEL Routine 10/29/2022 Mixed hyperlipidemia COMPREHENSIVE METABOLIC PANEL Routine 10/29/2022 Mixed hyperlipidemia documented in this encounter Results * TSH (10/29/2022) Scribed TSH 1.17 0.47 - 4.68 mcU/mL EXTERNAL LAB Comment:Results scanned into CMP order Blood 10/29/2022 Elizabeth ARANGO LAB BLOOD ORDERABLES Final Result EXTERNAL LAB * Lipid panel (10/29/2022) SCRIBED Cholesterol, Total 186 0 - 200 EXTERNAL LAB Comment:Results scanned into CMP order SCRIBED HDL 66 35 - . EXTERNAL LAB SCRIBED LDL 81 0 - 131 EXTERNAL LAB SCRIBED Triglycerides 72 0 - 150 EXTERNAL LAB Blood 10/29/2022 Elizabeth ARANGO LAB BLOOD ORDERABLES Final Result EXTERNAL LAB * (ABNORMAL) Comprehensive metabolic panel (10/29/2022) SCRIBED Sodium 137 137 - 145 mmol/L EXTERNAL LAB SCRIBED Potassium 4.2 3.4 - 5.0 mmol/L EXTERNAL LAB SCRIBED Chloride 103 98 - 107 mmol/L EXTERNAL LAB SCRIBED Carbon Dioxide 30 22 - 30 mmol/L EXTERNAL LAB SCRIBED Anion Gap 4(A) 8 - 16 mmol/L EXTERNAL LAB SCRIBED Urea Nitrogen (BUN) 18(A) 7 - 17 mg/dl EXTERNAL LAB SCRIBED Creatinine 0.80 0.7 - 1.0 mg/dl EXTERNAL LAB SCRIBED Glucose 119(A) 65 - 110 mg/dl EXTERNAL LAB SCRIBED Calcium 9.1 8.4 - 10.2 mg/dl EXTERNAL LAB SCRIBED Bilirubin 0.4 0.2 - 1.3 mg/dl EXTERNAL LAB SCRIBED Plasma Protein 7.0 6.3 - 8.2 g/dl EXTERNAL LAB SCRIBED Albumin 4.4 3.5 - 5.1 g/dl EXTERNAL LAB SCRIBED Alkaline Phosphatase 99 38 - 126 Units/L EXTERNAL LAB SCRIBED Alanine Transaminase (ALT) 28 6 - 35 Units/L EXTERNAL LAB SCRIBED Aspartate Transaminase (AST) 34 14 - 36 Units/L EXTERNAL LAB Blood 10/29/2022 Elizabeth ARANGO LAB BLOOD ORDERABLES Final Result EXTERNAL LAB documented in this encounter Visit Diagnoses Diagnosis Mixed hyperlipidemia- Primary Other fatigue documented in this encounter Care Teams Auto Locator Relationship Specialty Start Date End Date Elizabeth Borrego PA [address] [place] [address] PCP - General Internal Medicine 03/25/20 09/27/23 Luann Lawrence NP Nurse Practitioner Nurse Practitioner 01/06/19 Adarsh Tuttle MD [address] [facility] [address] [place] [address] Consulting Physician Gastroenterology 02/22/19 Sebastien Martinez DO [address] [place] [address] Medical Oncologist/Deicer Repairer Pneumatic Hematology and Oncology 02/22/19 Guru Winters DO [address] [place] [address] Consulting Physician Gastroenterology 02/22/19 Gato Abrams MD [address] [place] [address] Surgeon Surgical Oncology 09/07/19 Marina Rosales MD [address] [facility] [address] [place] [address] Consulting Physician General Surgery 03/24/21 documented as of this encounter
--- OUTSIDE RECORDS SUMMARY | 2024-10-04 02:58 | XMS_ITS | Encounter Summary ---
Author Organization [facility] Address [address] [place] [address] Phone Care Team Providers Care Animal Care Giver Name Role Phone Luann Lawrence ANUP Unavailable [phone] Adarsh Tuttle MD Unavailable [phone] Sebastien Martinez DO Unavailable [phone] Guru Winters DO Unavailable [phone] Gato Abrams MD Unavailable [phone] Elizabeth Borrego Primary Care Provider [phone] Marina Rosales MD Unavailable [phone] Encounter Details Date Type Department Care Team (Late st Contact Info) Description 01/27/2023 Telephone [facility] Orthopaedic Surgery [address] [place] [address] Medical Office Building [address] [place] [address] Bob Fagan RN Social History Tobacco Use Types Packs/Day [...] on file 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:22 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 documented in this encounter Plan of Treatment Not on file documented as of this encounter Visit Diagnoses Not on filedocumented in this encounter Care Teams Animal Care Giver Relationship Specialty Start Date End Date Elizabeth Borrego PA [address] [facility] [address] [place] [address] PCP - General Internal Medicine 03/25/20 09/27/23 Luann Lawrence, ANUP Nurse Practitioner Nurse Practitioner 01/06/19 Adarsh Tuttle MD [address] [facility] [address] [place] [address] Consulting Physician Gastroenterology 02/22/19 Sebastien Martinez DO [address] [place] [address] [address] [place] [address] Medical Oncologist/Bouffant Curtain Machine Tender Hematology and Oncology 02/22/19 Guru Winters DO [address] [address] Consulting Physician Gastroenterology 02/22/19 Gato Abrams MD [facility] [address] Surgeon Surgical Oncology 09/07/19 Marina Rosales MD [facility] [facility] [address] [place] [address] Consulting Physician General Surgery 03/24/21 documented as of this encounter
--- OUTSIDE RECORDS SUMMARY | 2024-10-04 02:58 | XMS_ITS | Encounter Summary ---
Author Organization [facility] Address [address] [place] [address] Care Team Providers Care Environmental Services Specialist Name Role Phone Melinda Luann Burgess NP Unavailable [phone] Adarsh Tuttle MD Unavailable [phone] Sebastien Martinez DO Unavailable [phone] Guru Winters DO Unavailable [phone] Gato Abrams MD Unavailable [phone] Elizabeth Borrego Primary Care Provider [phone] Marina Rosales MD Unavailable [phone] Encounter Details Date Type Department Care Team (Late st Contact Info) Description 12/11/2022 Orders Only [facility] Family Medicine [address] [place] [address] Elizabeth Borrego PA [address] [place], [place] [id number] Social History Tobacco Use Types Packs/Day Years [...] on file 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 Gender Identity Female 06/07/2020 8:39 AM CDT Sexual Orientation Not on file 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 Not on file documented as of this encounter Ordered Prescriptions Prescription Sig Dispense Quantity Refills Last Filled Start Date End Date traZODone (DESYREL) 50 mg tablet Take 1 tablet (50 mg total) by mouth nightly as needed for sleep 90 tablet 1 12/11/2022 3 documented in this encounter Progress Notes * Elizabeth Borrego PA - 12/11/2022 2:52 PM CST Rx sent for trazodone ER CLEANER documented in this encounter Plan of Treatment Not on file documented as of this encounter Visit Diagnoses Not on filedocumented in this encounter Care Teams Environmental Services Specialist Relationship Specialty Start Date End Date Elizabeth Borrego PA [address] [facility] [facility] [address] [place] [address] PCP - General Internal Medicine 03/25/20 09/27/23 Luann Lawrence NP Nurse Practitioner Nurse Practitioner 01/06/19 Adarsh Tuttle MD [address] [place] [address] Consulting Physician Gastroenterology 02/22/19 Sebastien Martinez DO [address] [place] [address] Medical Oncologist/Pewter Fabricator Hematology and Oncology 02/22/19 Guru Winters DO [address] [address] Consulting Physician Gastroenterology 02/22/19 Gato Abrams MD [address] [place] [address] Surgeon Surgical Oncology 09/07/19 Marina Rosales MD [address] [facility] [address] [place] [address] Consulting Physician General Surgery 03/24/21 documented as of this encounter
--- OUTSIDE RECORDS SUMMARY | 2024-10-04 02:58 | XMS_ITS | Encounter Summary ---
Author Organization [facility] Address [address] [place] [address] Care Team Providers Care Back End Engineer Name Role Phone Luann Lawrence NP Unavailable [phone] Adarsh Tuttle MD Unavailable [phone] Sebastien Martinez DO Unavailable [phone] Guru Winters DO Unavailable [phone] Gato Abrams MD Unavailable [phone] Elizabeth Borrego Primary Care Provider [phone] Marina Rosales MD Unavailable [phone] Reason for Referral * MRI/CAT/PET Scan (Routine) - Closed Specialty Diagnoses / Procedures Referred By Clemencia mendez Referred To Contact Radiology Diagnoses Malignant carcinoid tumor of stomach (HCC) Procedures CT Abdomen Pelvis W Contrast Sebastien Martinez DO [facility] [address] Phone: tel: fax: [address] [phone] Referral ID Status Reason Start Date Expiration Date Visits Re quested Visits Authorized [id number] Closed 12/03/2022 01/02/2024 1 1 RANCE COUNSELOR Reason for Visit * MRI/CAT/PET Scan (Routine) - Closed Specialty Diagnoses / Procedures Referred By Contac t Referred To Contact Radiology Diagnoses Malignant carcinoid tumor of stomach (HCC) Procedures CT Abdomen Pelvis W Contrast Sebastien Martinez DO [address] [address] Phone: tel: fax: [address] [phone] Referral ID Status Reason Start Date Expiration Date Visits Re quested Visits Authorized [id number] Closed 12/03/2022 01/02/2024 1 1 Encounter Details Date Type Department Care Team (Latest Contact Info) Description 12/23/2022 2:45 PM INSURANCE COUNSELOR - 12/23/2022 11:59 PM INSURANCE COUNSELOR Hospital Encounter [facility] [address] [place] [address] Malignant carcinoid tumor of stomach (CMS/HCC) (HCC) Discharge Disposition: Discharge to [...] on file 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:22 AM INSURANCE COUNSELOR Gender Identity Female 06/07/2020 8:39 AM CDT Sexual Orientation Not on file 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 on file Not on file Not on file documented as of this encounter Medications at Time of Discharge cholecalciferol (VITAMIN D-3) 1,000 unit capsuleIndicati ons:Vitamin D Deficiency Take 2 capsules (2,000 Units total) by mouth 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 automotive 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 before breakfast buPROPion XL (WELLBUTRIN XL) 150 mg 24 hr tabletIndicatio ns:Moderate episode of recurrent major depressive disorder (HCC) TAKE 1 TABLET BY MOUTH IN THE MORNING 90 tablet 3 12/14/2022 03/04/20 23 cyanocobalamin (Vitamin B-12) 1,000 mcg/mL injection INJECT 1 ML INTRAMUSCULARLY INSTRUCTED EVERY 30 DAYS (DISCARD 28 DAYS AFTER FIRST USE) 3 mL 2 02/16/2022 05/18/20 23 hydroxychloroqu ine (PLAQUENIL) 200 mg tabletIndicatio ns:Arthritis Take 1 tablet (200 mg total) by mouth [employer] before breakfast 01/30/2019 09/30/20 23 multivitamin capsuleIndicati ons:Vitamin Deficiency Prevention Take 1 capsule by mouth purchaser [employer] before breakfast 04/14/20 24 octreotide (SandoSTATIN) 100 mcg/mL injection 1 mL every 8 hours 23 pravastatin (PRAVACHOL) 40 mg tabletIndicatio ns:Dyslipidemia TAKE 1 TABLET BY MOUTH IN THE MORNING 90 tablet 3 12/14/2022 03/04/20 23 syringe with needle (Syringe 3cc/25Gx1 ) [...] CHLOROthiazide (DIOVAN-HCT) 80-12.5 mg per tabletIndicatio ns:hypertension TAKE 1 TABLET BY MOUTH DAILY 90 tablet 3 12/15/2022 03/04/20 23 documented as of this encounter Discharge Disposition Disposition Code Departure Means Destination Discharge to home or self care documented in this encounter Plan of Treatment Not on file documented as of this encounter Procedures Procedure Name Priority Date/Time Associated Diagnosis Comments CT ABDOMEN PELVIS W CONTRAST Schedule Routine, Read Routine (OP Routine) 12/23/2022 3:33 PM INSURANCE COUNSELOR Malignant carcinoid tumor of stomach (CMS/HCC) (HCC) documented in this encounter Results * CT Abdomen Pelvis W Contrast (12/23/2022 3:33 PM INSURANCE COUNSELOR) Anatomical Region Laterality Modality Body N/A Computed Tomogra phy 12/23/2022 4:00 PM INSURANCE COUNSELOR Impressions 12/23/2022 4:02 PM INSURANCE COUNSELOR Unchanged hypervascular nodule in the pancreatic uncinate process compatible with neuroendocrine tumor. ??No new metastatic disease within the abdomen or pelvis. Dictated by: Serge Perrin MD The radiology attending physician has personally reviewed this study, and had reviewed and/or edited this written report and agrees with it. Electronically signed by: Sy Butler M.D. Narrative 12/23/2022 4:02 PM INSURANCE COUNSELOR EXAMINATION: ??Computed tomography of the abdomen and pelvis with intravenous contrast. HISTORY: Carcinoid tumor TECHNIQUE: ??Transaxial computed tomographic images of the abdomen and pelvis were obtained with intravenous contrast according to the standard protocol after the uneventful administration of 75 mL Opti-Ray 350 intravenous contrast. COMPARISON: 03/30/22 and 02/22/20 CT and 07/06/22 DOTATATE PET/CT FINDINGS: ?? Imaged lung bases reveal unchanged sub 6 mm nodules in the right middle lobe (240.6) and right lower lobe (254.6), stable from 02/22/2020. ??No new nodule in the lung bases. ??No pleural effusion or pneumothorax. ??Esophagus is non-dilated. ??Imaged heart is normal in size without pericardial effusion. ?? No suspicious abdominal wall abnormalities. ??Spleen is normal. ??There is an unchanged hypervascular 6 mm nodule in the pancreatic uncinate process which was hypermetabolic on recent PET/CT. ??Kidneys enhance symmetrically without hydronephrosis or suspicious lesion. ??Adrenals are normal. ??No suspicious liver lesion. ??Gallbladder is normal. ??No intrahepatic or extrahepatic biliary ductal dilation. ??Abdominal aorta and its branches are normal caliber. ??Portal vasculature is unremarkable. ??Inferior vena cava and its branches are unremarkable. Postsurgical changes of Billroth II reconstruction with debris within the stomach. ??Small bowel and colon are normal in caliber without evidence of obstruction. ??No appendiceal inflammation. ??The peritoneum, retroperitoneum, and mesentery are normal. Urinary bladder is normal. ??Uterus is surgically absent. ??No adnexal masses. No abdominal or pelvic lymphadenopathy. ?? No suspicious osseous lesion. Procedure Note Sy Butler MD - 12/23/2022 EXAMINATION: Computed tomography of the abdomen and pelvis with intravenous contrast. HISTORY: Carcinoid tumor TECHNIQUE: Transaxial computed tomographic images of the abdomen and pelvis were obtained with intravenous contrast according to the standard protocol after the uneventful administration of 75 mL Opti-Ray 350 intravenous contrast. COMPARISON: 03/30/22 and 02/22/20 CT and 07/06/22 DOTATATE PET/CT FINDINGS: Imaged lung bases reveal unchanged sub 6 mm nodules in the right middle lobe (240.6) and right lower lobe (254.6), stable from 02/22/2020. No new nodule in the lung bases. No pleural effusion or pneumothorax. Esophagus is non-dilated. Imaged heart is normal in size without pericardial effusion. No suspicious abdominal wall abnormalities. Spleen is normal. There is an unchanged hypervascular 6 mm nodule in the pancreatic uncinate process which was hypermetabolic on recent PET/CT. Kidneys enhance symmetrically without hydronephrosis or suspicious lesion. Adrenals are normal. No suspicious liver lesion. Gallbladder is normal. No intrahepatic or extrahepatic biliary ductal dilation. Abdominal aorta and its branches are normal caliber. Portal vasculature is unremarkable. Inferior vena cava and its branches are unremarkable. Postsurgical changes of Billroth II reconstruction with debris within the stomach. Small bowel and colon are normal in caliber without evidence of obstruction. No appendiceal inflammation. The peritoneum, retroperitoneum, and mesentery are normal. Urinary bladder is normal. Uterus is surgically absent. No adnexal masses. No abdominal or pelvic lymphadenopathy. No suspicious osseous lesion. IMPRESSION: Unchanged hypervascular nodule in the pancreatic uncinate process compatible with neuroendocrine tumor. No new metastatic disease within the abdomen or pelvis. Dictated by: Serge Perrin MD The radiology attending physician has personally reviewed this study, and had reviewed and/or edited this written report and agrees with it. Electronically signed by: Sy Butler M.D. Sebastien Martinez DO IMG CT PROCEDURES Final Resu lt documented in this encounter Visit Diagnoses Diagnosis Malignant carcinoid tumor of stomach (HCC) Malignant carcinoid tumor of the stomach documented in this encounter Administered Medications Inactive Administered Medications - up to 3 most recent administrations Medication Order MAR Action Action Date Dose Rate Site ioversoL (OPTIRAY 350) injection 100 mL 100 mL, intravenous, Once in imaging, contrast, Starting on Wed12/23/22 at 1514, For 1 dose Contrast Given 12/23/2022 3:26 PM INSURANCE COUNSELOR 75 mL documented in this encounter Care Teams Back End Engineer Relationship Specialty Start Date End Date Elizabeth Borrego PA [address] [place] [address] PCP - General Internal Medicine 03/25/20 09/27/23 Luann Lawrence NP Nurse Practitioner Nurse Practitioner 01/06/19 Adarsh Tuttle MD [address] [place] [address] Consulting Physician Gastroenterology 02/22/19 Sebastien Martinez DO [facility] [address] Medical Oncologist/Welt Stitcher Hematology and Oncology 02/22/19 Guru Winters DO [facility] [address] Consulting Physician Gastroenterology 02/22/19 Gato Abrams MD [facility] [address] Surgeon Surgical Oncology 09/07/19 Marina Rosales MD [address] [place] [address] Consulting Physician General Surgery 03/24/21 documented as of this encounter
--- OUTSIDE RECORDS SUMMARY | 2024-10-04 02:58 | XMS_ITS | Encounter Summary ---
Author Organization [facility] Healthcare Address [address] [place] [address] Care Team Providers Care Inpatient Auditor Name Role Phone Luann Lawrence NP Unavailable [phone] Adarsh Tuttle MD Unavailable [phone] Sebastien Martinez DO Unavailable [phone] Guru Winters DO Unavailable [phone] Gato Abrams MD Unavailable [phone] Elizabeth Borrego Primary Care Provider [phone] Marina Rosales MD Unavailable [phone] Encounter Details Date Type Department Care Team (Late st Contact Info) Description 12/23/2022 7:45 AM HISTORICAL ARCHEOLOGIST Lab [facility] [place] [address] [place] [address] Malignant carcinoid tumor of stomach (CMS/HCC) (HCC) [...] on file 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:22 AM HISTORICAL ARCHEOLOGIST Gender Identity Female 06/07/2020 8:39 AM CDT Sexual Orientation Not on file 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 Not on file Not on file documented as of this encounter Plan of Treatment Not on file documented as of this encounter Procedures Procedure Name Priority Date/Time Associated Diagnosis Comments EGFR Routine 12/23/2022 7:55 AM HISTORICAL ARCHEOLOGIST Malignant carcinoid tumor of stomach (CMS/HCC) (HCC) DIFFERENTIAL AUTO STAT 12/23/2022 7:5 5 AM HISTORICAL ARCHEOLOGIST Malignant carcinoid tumor of stomach (CMS/HCC) (HCC) CHROMOGRANIN A Routine 12/23/2022 7:55 AM HISTORICAL ARCHEOLOGIST Malignant carcinoid tumor of stomach (CMS/HCC) (HCC) CBC WITH AUTO DIFFERENTIAL STAT 12/23/2022 7:55 AM HISTORICAL ARCHEOLOGIST Malignant carcinoid tumor of stomach (CMS/HCC) (HCC) GASTRIN Routine 12/23/2022 7:55 AM HISTORICAL ARCHEOLOGIST Malignant carcinoid tumor of stomach (CMS/HCC) (HCC) COMPREHENSIVE METABOLIC PANEL Routine 12/23/2022 7:55 AM HISTORICAL ARCHEOLOGIST Malignant carcinoid tumor of stomach (CMS/HCC) (HCC) documented in this encounter Results * eGFR (12/23/2022 7:55 AM HISTORICAL ARCHEOLOGIST) eGFR 101 mL/min/1. 73 m2 ANDREA CASTILLO Comment: Interpretive Data Reference Interval Normal ?>/= [...] Current interpretive data was last reviewed 2021. Testing performed by: [address] [address] Blood 12/23/2022 7:55 AM HISTORICAL ARCHEOLOGIST 12/23/2022 7:59 AM HISTORICAL ARCHEOLOGIST us Sebastien Martinez DO LAB BLOOD ORDERABLES Final R esult ANDREA [address] [facility] Department [place] [address] * Differential, auto (12/23/2022 7:55 AM HISTORICAL ARCHEOLOGIST) Neutrophil abs 2.3 1.7 - 6.5 K/cumm ANDREA CASTILLO Comment:Testing performed by : [address] [address] Lymphocyte abs 0.9 0.8 - 3.3 K/cumm ANDREA CASTILLO Comment:Testing performed by : [address] [address] Monocyte abs 0.2 0.2 - 0.8 K/cumm ANDREA Comment:Testing performed by : [address] [address] Eosinophil abs 0.2 0.0 - 0.5 K/cumm ANDREA Comment:Testing performed by : [address] [address] Basophil abs 0.1 0.0 - 0.1 K/cumm ANDREA Comment:Testing performed by : [address] [address] Neutrophil pct 62.9 % [facility] Comment: Interpretive Data Percent cell count reference ranges are not reported, since discordance with absolute values may lead to misinterpretation of CBC data. Current Interpretive Data was last revised on 2018. Testing performed by: [address] [address] Imm gran pct 0.5 % [facility] Comment: Interpretive Data Percent cell count reference ranges are not reported, since discordance with absolute values may lead to misinterpretation of CBC data. Current Interpretive Data was last revised on 2018. Testing performed by: [address] [address] Lymphocyte pct 25.3 % [facility] Comment: Interpretive Data Percent cell count reference ranges are not reported, since discordance with absolute values may lead to misinterpretation of CBC data. Current Interpretive Data was last revised on 2018. Testing performed by: [address] [address] Monocyte pct 5.7 % [facility] Comment: Interpretive Data Percent cell count reference ranges are not reported, since discordance with absolute values may lead to misinterpretation of CBC data. Current Interpretive Data was last revised on 2018. Testing performed by: [address] [address] Eosinophil pct 4.0 % [facility] Comment: Interpretive Data Percent cell count reference ranges are not reported, since discordance with absolute values may lead to misinterpretation of CBC data. Current Interpretive Data was last revised on 2018. Testing performed by: [address] [address] Basophil pct 1.6 % [facility] Comment: Interpretive Data Percent cell count reference ranges are not reported, since discordance with absolute values may lead to misinterpretation of CBC data. Current Interpretive Data was last revised on 2018. Testing performed by: [facility], [address] [place] [address]., [address] Blood 12/23/2022 7:55 AM HISTORICAL ARCHEOLOGIST 12/23/2022 7:59 AM HISTORICAL ARCHEOLOGIST us Sebastien Martinez DO LAB BLOOD ORDERABLES Final R esult ANDREA [address] [facility] Department [place] [address] * Chromogranin A (12/23/2022 7:55 AM HISTORICAL ARCHEOLOGIST) Chromogranin A 21 <93 ng/mL ANDREA CASTILLO Comment: ADDITIONAL INFORMATION This test was developed and its performance characteristics determined by [facility] in a manner consistent with CLIA [...] a homogeneous time-resolved immunofluorescent assay manufactured by [employer] and performed on the [employer] Kryptor Compact Plus. ? Values obtained with different assay methods or kits may be different and cannot be used interchangeably. ? Test results cannot be interpreted as absolute evidence for the presence or absence of malignant disease. Test Performed by: [facility] - [address] [address] Concrete Pipe Plant Supervisor: Bjorn Morris M.D. Ph.D.; CLIA# [id number] Testing performed by: [facility], [address] [place] [address]., [address] Blood 12/23/2022 7:55 AM HISTORICAL ARCHEOLOGIST 12/23/2022 7:59 AM HISTORICAL ARCHEOLOGIST Sebastien Martinez LAB BLOOD ORDERABLES Final R esult Performing Organization Address [facility] Co de Phone Number ANDREA [address] [address] * Gastrin (12/23/2022 7:55 AM HISTORICAL ARCHEOLOGIST) Pathologist [facility] Gastrin <10 pg/mL ANDREA Comment: REFERENCE VALUE <100 Reference ranges valid for >= 8 hour fast. Test Performed by: [facility] [address] [place] [address] Concrete Pipe Plant Supervisor: Bjorn Morris M.D. Ph.D.; CLIA# [id number] Testing performed by: [address] [address] Blood 12/23/2022 7:55 AM HISTORICAL ARCHEOLOGIST 12/23/2022 7:59 AM HISTORICAL ARCHEOLOGIST Sebastien Martinez [facility] BLOOD ORDERABLES Final R [facility] Performing Organization Address [facility] de Phone Number ANDREA [address] [address] * (ABNORMAL) CBC with auto differential (12/23/2022 7:55 AM HISTORICAL ARCHEOLOGIST) [facility] WBC 3.7(L) 3.8 - 9.9 K/cumm ANDREA Comment:Testing performed by : [address] [address] Hgb 12.5 11.9 - 15.5 g/dL ANDREA CASTILLO Comment:Testing performed by : [address] [address] Hct 37.5 35.6 - 45.5 % ANDREA CASTILLO Comment:Testing performed by : [address] [address] Plt 263 150 - 400 K/cumm ANDREA CASTILLO Comment:Testing performed by : [address] [address] MPV 9.6 9.1 - 12.3 fL ANDREA CASTILLO Comment:Testing performed by : [address] [address] RBC 4.32 3.90 - 5.20 M/cumm ANDREA CASTILLO Comment:Testing performed by : [address] [address] MCV 86.8 81.3 - 96.4 fL ANDREA CASTILLO Comment:Testing performed by : [address] [address] MCH 28.9 27.1 - 33.3 pg ANDREA CASTILLO Comment:Testing performed by : [address] [address] MCHC 33.3 32.3 - 35.7 g/dL ANDREA CASTILLO Comment:Testing performed by : [address] [address] RDW CV 12.1 11.1 - 14.9 % ANDREA Comment:Testing performed by : [address] [address] RDW SD 38.9 35.7 - 48.1 fL ANDREA Comment:Testing performed by : [address] [address] Blood 12/23/2022 7:55 AM HISTORICAL ARCHEOLOGIST 12/23/2022 7:59 AM HISTORICAL ARCHEOLOGIST us Sebastien Martinez DO LAB BLOOD ORDERABLES Final R esult ANDREA [address] [facility] Department [place] [address] * Comprehensive metabolic panel (12/23/2022 7:55 AM HISTORICAL ARCHEOLOGIST) Sodium 141 135 - 145 mmol/L ANDREA CASTILLO Comment:Testing performed by : [address] [address] Potassium, pl 4.3 3.3 - 4.9 mmol/L [facility] Comment:Testing performed by : [address] [address] Chloride 104 97 - 110 mmol/L ANDREA Comment:Testing performed by : [address], [place]., [address] CO2 28 22 - 32 mmol/L [facility] Comment:Testing performed by : [address] [address] Anion gap 9 2 - 15 mmol/L [facility] Comment:Testing performed by : [address], [place]., [address] BUN 13 8 - 25 mg/dL [facility] Comment:Testing performed by : [address] [address] Creatinine 0.70 0.60 - 1.10 mg/dL [facility] Comment:Testing performed by : [address] [address] Glucose 101 70 - 199 mg/dL [facility] Comment: Interpretive Data Fasting glucose [...] classification and Diagnosis of Diabetes Diabetes Care 202; 46: S19-S40. Current interpretive data was last revised 2022. Testing performed by: [address] [address] Calcium 9.6 8.5 - 10.3 mg/dL [facility] Comment:Testing performed by : [address] [address] Bilirubin, total 0.5 0.1 - 1.2 mg/dL [facility] Comment:Testing performed by : [address] [address] Protein, pl 7.1 6.5 - 8.5 g/dL [facility] Comment:Testing performed by : [facility], [address] [place] [address]., [address] Albumin 4.4 3.5 - 5.0 g/dL ANDREA CASTILLO Comment:Testing performed by : [address] [address] Alk phos 63 40 - 130 Units/L ANDREA CASTILLO Comment:Testing performed by : [address] [address] ALT 21 7 - 45 Units/L ANDREA Comment:Testing performed by : [facility], [address] [place] [address]., [address] AST 26 10 - 45 Units/L ANDREA Comment:Testing performed by : [address] [address] Blood 12/23/2022 7:55 AM HISTORICAL ARCHEOLOGIST 12/23/2022 7:59 AM HISTORICAL ARCHEOLOGIST Sebastien Martinez DO LAB BLOOD ORDERABLES Final R esult Performing Organization Address City/State/[facility] Co de Phone Number ANDREA [address] [facility] Department [place] [address] documented in this encounter Visit Diagnoses Diagnosis Malignant carcinoid tumor of stomach (HCC) Malignant carcinoid tumor of the stomach documented in this encounter Care Teams Inpatient Auditor Relationship Specialty Start Date End Date Elizabeth Borrego PA [address] [place] [address] PCP - General Internal Medicine 03/25/20 09/27/23 Luann Lawrence NP Nurse Practitioner Nurse Practitioner 01/06/19 Adarsh Tuttle MD [address] [place] [address] Consulting Physician Gastroenterology 02/22/19 Sebastien Martinez DO [address] [place] [address] Medical Oncologist/Powder Mixer Hematology and Oncology 02/22/19 Guru Winters DO [address] [place] [address] Consulting Physician Gastroenterology 02/22/19 Gato Abrams MD [address] [place] [address] Surgeon Surgical Oncology 09/07/19 Marina Rosales MD [address] [facility] [address] [place], [place] [id number] Consulting Physician General Surgery 03/24/21 documented as of this encounter
--- OUTSIDE RECORDS SUMMARY | 2024-10-04 02:58 | XMS_ITS | Encounter Summary ---
Author Organization [facility] Address [address] [place] [address] Phone Care Team Providers Care Juvenile Corrections Officer Name Role Phone Luann Lawrence ANUP Unavailable [phone] Adarsh Tuttle MD Unavailable [phone] Sebastien Martinez DO Unavailable [phone] Guru Winters DO Unavailable [phone] Gato Abrams MD Unavailable Elizabeth Borrego Primary Care Provider [phone] Marina Rosales MD Unavailable [phone] Encounter Details Date Type Department Care Team (Late st Contact Info) Description 12/03/2022 Telephone [facility] Oncology [facility] [facility] [address] [place] [address] Tracy Brock, RN Social History [...] on file 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:22 AM IMAGE ARCHIVIST Gender Identity Female 06/07/2020 8:39 AM CDT Sexual Orientation Not on file 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 Patient would like this on December 23 at [place]. E ARCHIVIST documented in this encounter Plan of Treatment Not on file documented as of this encounter Visit Diagnoses Not on filedocumented in this encounter Care Teams Juvenile Corrections Officer Relationship Specialty Start Date End Date Elizabeth Borrego PA [address] [facility] [address] [place] [address] PCP - General Internal Medicine 03/25/20 09/27/23 Luann Lawrence NP Nurse Practitioner Nurse Practitioner 01/06/19 Adarsh Tuttle MD [address] [facility] [address] [place] [address] Consulting Physician Gastroenterology 02/22/19 Sebastien Martinez DO [address] [place] [address] Medical Oncologist/Product Demonstrator Hematology and Oncology 02/22/19 Guru Winters DO [address] [place] [address] Consulting Physician Gastroenterology 02/22/19 Gato Abrams MD [address] [place] [address] Surgeon Surgical Oncology 09/07/19 Marina Rosales MD [address] [facility] [address] [place] [address] Consulting Physician General Surgery 03/24/21 documented as of this encounter
--- OUTSIDE RECORDS SUMMARY | 2024-10-04 02:58 | XMS_ITS | Encounter Summary ---
Author Organization [facility] Address [address] [place] [address] Phone Care Team Providers Care Underground Utility Locator Name Role Phone Luann Lawrence ANUP Unavailable [phone] Adarsh Tuttle MD Unavailable [phone] Sebastien Martinez DO Unavailable [phone] Guru Winters DO Unavailable [phone] Gato Abrams MD Unavailable [phone] Elizabeth Borrego Primary Care Provider [phone] Marina Rosales MD Unavailable [phone] Encounter Details Date Type Department Care Team (Late st Contact Info) Description 10/27/2022 Orders Only 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 Not on file Not on file documented as of this encounter Plan of Treatment Not on file documented as of this encounter Visit Diagnoses Diagnosis Malignant carcinoid tumor of stomach (HCC)- Primary Malignant carcinoid tumor of the stomach documented in this encounter Care Teams Underground Utility Locator Relationship Specialty Start Date End Date Elizabeth Borrego PA [address] [facility] 500 [place], [place] [id number] PCP - General Internal Medicine 03/25/20 09/27/23 Luann Lawrence NP Nurse Practitioner Nurse Practitioner 01/06/19 Adarsh Tuttle MD [address] [place] [facility] [address] [place] [address] Consulting Physician Gastroenterology 02/22/19 Sebastien Martinez DO [address] [place] [id number] Medical Oncologist/Senior Biostatistician/Group Leader Hematology and Oncology 02/22/19 Guru Winters DO [address] [place] [address] Consulting Physician Gastroenterology 02/22/19 Gato Abrams MD [address] [place] [address] Surgeon Surgical Oncology 09/07/19 Marina Rosales MD [address] [place] [address] 500 [place] [address] Consulting Physician General Surgery 03/24/21 documented as of this encounter
--- OUTSIDE RECORDS SUMMARY | 2024-10-04 02:58 | XMS_ITS | Encounter Summary ---
Author Organization [facility] Address [address] [facility] [address] [place] [address] Care Team Providers Care Product Marketing Consultant Name Role Phone Luann Lawrence NP Unavailable [phone] Adarsh Tuttle MD Unavailable [phone] Sebastien Martinez DO Unavailable [phone] Guru Winters DO Unavailable Gato Abrams MD Unavailable [phone] Elizabeth Borrego Primary Care Provider [phone] Marina Rosales MD Unavailable [phone] Reason for Referral * Diagnostic Imaging (Routine) - Closed Specialty Diagnoses / Procedures Referred By Contac t Referred To Contact Diagnoses Breast cancer screening by mammogram Procedures Screening Mammogram Bilateral W Jeremy Elizabeth Borrego PA [address] [place] [address] Phone: tel: fax: [facility] [address] [place] [address] Referral ID Status Reason Start Date Expiration Date Visits Re quested Visits Authorized [id number] Closed 10/29/2022 11/28/2023 1 1 D OPERATIONS ENGINEER Reason for Visit * Reason Comments Wellness Visit Encounter Details Date Type Department Care Team (Late st Contact Info) Description 10/29/2022 3:00 PM CLOUD OPERATIONS ENGINEER Office Visit [facility] Family Medicine [address] [facility] [address] [place] [address] Elizabeth Borrego PA [address] [facility] [address] [place] [address] Annual physical exam (Primary Dx); Malignant carcinoid tumor of stomach (CMS/HCC) (HCC); HTN (hypertension), benign; Moderate episode of recurrent major depressive disorder (HCC); Mixed hyperlipidemia; Breast cancer screening by mammogram; BMI 29.0-29.9,adult Social History Tobacco Use Types Packs/Day Years [...] on file 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:22 AM CLOUD OPERATIONS ENGINEER Gender Identity Female 06/07/2020 8:39 AM CDT Sexual Orientation Not on file 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 Not on file Not on file documented as of this encounter Last Filed Vital Signs Vital Sign Reading Time Taken Comments Blood Pressure 100/80 10/29/2022 3:01 PM CLOUD OPERATIONS ENGINEER Pulse 56 10/29/2022 3:01 PM CLOUD OPERATIONS ENGINEER Temperature 36.6 ??C (97.8 ??F) 10/29/2022 3:01 PM CS T Respiratory Rate - - Oxygen Saturation 97% 10/29/2022 3:01 PM CLOUD OPERATIONS ENGINEER Inhaled Oxygen Concentration - - Weight 76.8 kg (169 lb 6.4 oz) 10/29/2022 3:01 P M CLOUD OPERATIONS ENGINEER Height 162.6 cm (5' 4 ) 10/29/2022 3:01 PM CLOUD OPERATIONS ENGINEER Body Mass Index 29.08 10/29/2022 3:01 PM CLOUD OPERATIONS ENGINEER documented in this encounter Progress Notes * Elizabeth Borrego PA - 10/29/2022 3:00 PM CST Images from the original note were not included. Subjective/Objective Patient ID: Fabiola Gibson is a 57 y.o. female. Chief Complaint Wellness Visit HPI Patient presents for wellness exam and followup chronic concerns. ONC Dr. Martinez - Surgeon - Dr. Abrams Pt sopped sadnostatin injections and is monitoring. States the two providers had a little differentview but she wanted to see what happens if she stays off it and she is concerned about the side effects and starting a new job with [employer] at [employer]. Dr. [place] - stable -- follows annually HLD - Pravastatin--tolerating well HTN - valsartan/HCTZ Depression --- Wellbutrin 150 Stopped the lexparo -- feeling good Starting anew job. FLU - UTD Mamm - 10/2020 negative. Has order to get scheduled. Colonoscopy - 11/2020 -- tubular adenoma (Has egd with Dr. Tutlte and will be due again in 03/2022 so will check to see if can do at the same time. Review of Systems See HPI Vitals: 10/29/22 1501 BP: 100/80 BP Location: Left arm Patient Position: Sitting Pulse: 56 Temp: 36.6 ??C (97.8 ??F) TempSrc: Oral SpO2: 97% Weight: 76.8 kg (169 lb 6.4 oz) Height: 162.6 cm (5' 4 ) [...] soft. Tenderness: There is no abdominal tenderness. Skin: General: Skin is warm and dry. Findings: No rash. Neurological: Mental Status: She is alert and oriented to person, place, and time. Assessment/Plan Diagnoses and all orders for this visit: Annual physical exam (Z00.00) (Primary) Assessment & Plan: Encouraged healthy lifestyle, good nutrition and exercise. Encouraged Calcium and Vitamin D and weight bearing exercise for bone health. Reviewed immunizations Reviewed age appropirate screenings. Malignant carcinoid tumor of stomach (CMS/HCC) (HCC) (C7A.092) Assessment & Plan: Continue very close observation with Dr. Martinez and Dr. Abrams. She is stop the Sandostatin at this point and is awaiting monitoring of labs and imaging to determine next step. HTN (hypertension), benign (I10) Assessment & Plan: Bp is stable/in acceptable range for any co-morbidities. Encouraged to limit sodium intake and exercise for weight control. Continue valsartan hydrochlorothiazide Moderate episode of recurrent major depressive disorder (HCC) (F33.1) Assessment & Plan: Stable with Wellbutrin 150. She discontinue Lexapro was feeling good. Will continue monitor closely. Prescription sent to pharmacy Mixed hyperlipidemia (E78.2) Assessment & Plan: Encouraged patient to follow low fat/low chol diet like the Mediterranean diet. Increase good fats in the diet. Increase exercise. Monitor labs as needed. Continue pravastatin Breast cancer screening by mammogram (Z12.31) Assessment & Plan: Mammogram order provided Orders: - Screening Mammogram Bilateral W Jeremy; Future BMI 29.0-29.9,adult (Z68.29) Assessment & Plan: Weight/BMI is in healthy range. Continue healthy lifestyle to maintain. *This note is dictated using [employer] medical voice recognition software, variances in spelling and vocabulary are possible and unintentional.* Elizabeth Borrego PA-C D OPERATIONS ENGINEER documented in this encounter Miscellaneous Notes * Assessment & Plan Note - Elizabeth Borrego PA - 10/30/2022 5:02 PM CLOUD OPERATIONS ENGINEER Associated Problem(s): Mixed hyperlipidemia Encouraged patient to follow low fat/low chol diet like the Mediterranean diet. Increase good fats in the diet. Increase exercise. Monitor labs as needed. Continue pravastatin D OPERATIONS ENGINEER * Assessment & Plan Note - Elizabeth Borrego PA - 10/30/2022 5:02 PM CLOUD OPERATIONS ENGINEER Associated Problem(s): Moderate episode of recurrent major depressive disorder (HCC) Stable with Wellbutrin 150. She discontinue Lexapro was feeling good. Will continue monitor closely. Prescription sent to pharmacy D OPERATIONS ENGINEER * Assessment & Plan Note - Elizabeth Borrego PA - 10/30/2022 5:02 PM CLOUD OPERATIONS ENGINEER Associated Problem(s): Breast cancer screening by mammogram Mammogram order provided D OPERATIONS ENGINEER * Assessment & Plan Note - Elizabeth Borrego PA - 10/30/2022 5:02 PM CLOUD OPERATIONS ENGINEER Associated Problem(s): Annual physical exam Encouraged healthy lifestyle, good nutrition and exercise. Encouraged Calcium and Vitamin D and weight bearing exercise for bone health. Reviewed immunizations Reviewed age appropirate screenings. D OPERATIONS ENGINEER * Assessment & Plan Note - Elizabeth Borrego PA - 10/30/2022 5:02 PM CLOUD OPERATIONS ENGINEER Associated Problem(s): HTN (hypertension), benign Bp is stable/in acceptable range for any co-morbidities. Encouraged to limit sodium intake and exercise for weight control. Continue valsartan hydrochlorothiazide D OPERATIONS ENGINEER * Assessment & Plan Note - Elizabeth Borrego PA - 10/30/2022 5:01 PM CLOUD OPERATIONS ENGINEER Associated Problem(s): Malignant carcinoid tumor of stomach (HCC) Continue very close observation with Dr. Martinez and Dr. Abrams. She is stop the Sandostatin at this point and is awaiting monitoring of labs and imaging to determine next step. D OPERATIONS ENGINEER * Assessment & Plan Note - Den Orta MA - 10/29/2022 3:03 PM CLOUD OPERATIONS ENGINEER Associated Problem(s): BMI 28.0-28.9,adult Weight/BMI is in healthy range. Continue healthy lifestyle to maintain. D OPERATIONS ENGINEER documented in this encounter Plan of Treatment Not on file documented as of this encounter Results * Screening Mammogram Bilateral [...] for bilateral Overall Assessment: 1 - Negative us Elizabeth ARANGO IMG MAMMO PROCEDURES Final Result documented in this encounter Visit Diagnoses Diagnosis Annual physical exam- Primary Routine general medical examination at a health care facility Malignant carcinoid tumor of stomach (HCC) Malignant carcinoid tumor of the stomach HTN (hypertension), benign Essential hypertension, benign Moderate episode of recurrent major depressive disorder (HCC) Mixed hyperlipidemia Breast cancer screening by mammogram BMI 29.0-29.9,adult Breast cancer screening by mammogram documented in this encounter Discontinued Medications Medication Sig Discontinue Reason Start Date End Da te escitalopram (LEXAPRO) 10 mg tabletIndications:Modera te episode of recurrent major depressive disorder (HCC) TAKE 1 TABLET BY MOUTH IN THE MORNING Therapy completed 10/26/2021 10/29/2022 documented as of this encounter Care Teams Product Marketing Consultant Relationship Specialty Start Date End Date Elizabeth Borrego PA [address] [place], [place] [id number] PCP - General Internal Medicine 03/25/20 09/27/23 Luann Lawrence, ANUP Nurse Practitioner Nurse Practitioner 01/06/19 Adarsh Tuttle MD [address] [facility] [facility] [address] [place] [address] Consulting Physician Gastroenterology 02/22/19 Sebastien Martinez DO [facility] [address] Medical Oncologist/Cloth Shader Hematology and Oncology 02/22/19 Guru Winters DO [facility] [address] Consulting Physician Gastroenterology 02/22/19 Gato Abrams MD [facility] [address]39[address] Surgeon Surgical Oncology 09/07/19 Marina Rosales MD [address] [place] [address] Consulting Physician General Surgery 03/24/21 documented as of this encounter
--- OUTSIDE RECORDS SUMMARY | 2024-10-04 02:58 | XMS_ITS | Encounter Summary ---
Author Organization [facility] Address [address] [place] [address] Phone Care Team Providers Care Machine Lead Burner Name Role Phone MelindaLuann oh ANUP Unavailable [phone] Adarsh Tuttle MD Unavailable [phone] Sebastien Martinez DO Unavailable [phone] Guru Winters DO Unavailable [phone] Gato Abrams MD Unavailable [phone] Elizabeth Borrego Primary Care Provider [phone] Marina Rosales MD Unavailable [phone] Reason for Visit * Reason Comments Injections * Episode Based Medications (Routine) - Closed Specialty Diagnoses / Procedures Referred By Clemencia mendez Referred To Contact Oncology Diagnoses Malignant carcinoid tumor of stomach (HCC) Procedures OR OCTREOTIDE INJECTION, DEPOT Sebastien Martinez DO [facility] [address] Phone: tel: fax: [facility] Oncology [address] [address] Phone: tel: fax: Referral ID Status Reason Start Date Expiration Date Visits Re quested Visits Authorized [id number] Closed 2022 02/19/2023 1 50 Encounter Details Date Type Department Care Team (Late st Contact Info) Description 10/28/2022 10:15 AM SENIOR APPLICATION SOFTWARE ENGINEER Infusion [facility] Oncology [address] [facility] [address] [place] [phone] Malignant carcinoid tumor of stomach (CMS/HCC) [...] file 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:22 AM SENIOR APPLICATION SOFTWARE ENGINEER Gender Identity Female 06/07/2020 8:39 AM CDT Sexual Orientation Not on file 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 Not on file Not on file documented as of this encounter Nursing Notes * Joanne Abbott RN - 10/28/2022 10:15 AM CST Patient tolerated injection well to left dorsogluteal OR APPLICATION SOFTWARE ENGINEER documented in this encounter Plan of Treatment Not on file documented as of this encounter Visit Diagnoses Diagnosis Malignant carcinoid tumor of stomach (HCC)- Primary Malignant carcinoid tumor of the stomach documented in this encounter Administered Medications Inactive Administered Medications - up to 3 most recent administrations Medication Order MAR Action Action Date Dose Rate Site octreotide LAR (SandoSTATIN LAR) extended release intramuscular injection 10 mg 10 mg, intramuscular, Once, On Wed10/28/22 at 1045, For 1 dose, Refrigerate. For IM intragluteal administration only- alternate gluteal sites. Shamir.Indications:Malignant carcinoid tumor of stomach (HCC) Given 10/28/2022 10:29 AM SENIOR APPLICATION SOFTWARE ENGINEER 10 mg Left Dorsogluteal/Butt ock documented in this encounter Orders Appointment Requests Count Last Ordered Date Fi rst Ordered Date ONCBCN INJECTION APPOINTMENT REQUEST 1 10/18 documented in this encounter Care Teams Machine Lead Burner Relationship Specialty Start Date End Date Elizabeth Borrego PA [address] [place] [address] PCP - General Internal Medicine 03/25/20 09/27/23 Luann Lawrence NP Nurse Practitioner Nurse Practitioner 01/06/19 Adarsh Tuttle MD [address] [facility] [address] [place] [address] Consulting Physician Gastroenterology 02/22/19 Sebastien Martinez DO [facility] [id number] Medical Oncologist/Patient Svcs Mgr Hematology and Oncology 02/22/19 Guru Winters DO [facility] [address] [address]75[address] Consulting Physician Gastroenterology 02/22/19 Gato Abrams MD [facility] [address] [address]45[address] Surgeon Surgical Oncology 09/07/19 Marina Rosales MD [address] [place] [address] Consulting Physician General Surgery 03/24/21 documented as of this encounter
--- OUTSIDE RECORDS SUMMARY | 2024-10-04 02:58 | XMS_ITS | Encounter Summary ---
Author Organization [facility] Address [address] [place] [address] Care Team Providers Care Calender Machine Operator Helper Name Role Phone Luann Lawrence NP Unavailable [phone] Adarsh Tuttle MD Unavailable Sebastien Martinez DO Unavailable [phone] Guru Winters DO Unavailable [phone] Gato Abrams MD Unavailable [phone] Elizabeth Borrego Primary Care Provider [phone] Marina Rosales MD Unavailable [phone] Encounter Details Date Type Department Care Team (Latest Contact Info) Description 10/23/2022 5:51 PM EXTENSION SPECIALIST - 10/23/2022 11:59 PM EXTENSION SPECIALIST Hospital Encounter [address] [address] Discharge Disposition: Discharge to home or self [...] on file 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:22 AM EXTENSION SPECIALIST Gender Identity Female 06/07/2020 8:39 AM CDT Sexual Orientation Not on file 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 Not on file Not on file documented as of this encounter Medications at Time of Discharge cholecalciferol (VITAMIN D-3) 1,000 unit capsuleIndicati ons:Vitamin D Deficiency Take 2 capsules (2,000 Units total) by mouth ethylbenzene converter operator before breakfast buPROPion XL (WELLBUTRIN XL) 150 mg 24 hr tabletIndicatio ns:Moderate episode of recurrent major depressive disorder (HCC) TAKE 1 TABLET BY MOUTH IN THE MORNING 90 tablet 3 10/26/2021 12/14/19 23 cyanocobalamin (Vitamin B-12) 1,000 mcg/mL injection INJECT 1 ML INTRAMUSCULARLY INSTRUCTED EVERY 30 DAYS (DISCARD 28 DAYS AFTER FIRST USE) 3 mL 2 02/16/2022 05/18/20 23 escitalopram (LEXAPRO) 10 mg tabletIndicatio ns:Moderate episode of recurrent major depressive disorder (HCC) TAKE 1 TABLET BY MOUTH IN THE MORNING 90 tablet 3 10/26/2021 10/29/19 23 hydroxychloroqu ine (PLAQUENIL) 200 mg tabletIndicatio ns:Arthritis Take 1 tablet (200 mg total) by mouth ethylbenzene converter operator before breakfast 01/30/2019 09/30/20 23 multivitamin capsuleIndicati ons:Vitamin Deficiency Prevention Take 1 capsule by mouth ethylbenzene converter operator before breakfast 04/14/20 24 octreotide (SandoSTATIN) 100 mcg/mL injection 1 mL every 8 hours 23 pravastatin (PRAVACHOL) 40 mg tabletIndicatio ns:Dyslipidemia TAKE 1 TABLET BY MOUTH IN THE MORNING 90 tablet 3 10/26/2021 12/14/19 23 syringe with needle (Syringe 3cc/25Gx1 ) 3 mL 25 gauge x 1 syringe 1 Syringe every 30 (thirty) days For use with monthly IM Vitamin B12 injections 30 each 02/18/2022 09/30/20 23 valsartan-hydro CHLOROthiazide (DIOVAN-HCT) 80-12.5 mg per tabletIndicatio ns:hypertension Take 1 tablet by mouth daily 90 tablet 3 03/11/2022 12/15/19 23 documented as of this encounter Discharge Disposition Disposition Code Departure Means Destination Discharge to home or self care documented in this encounter Plan of Treatment Not on file documented as of this encounter Procedures Procedure Name Priority Date/Time Associated Diagnosis Comments MEASLES IGG ANTIBODY Routine 10/23/2022 5:51 PM EXTENSION SPECIALIST documented in this encounter Results * (ABNORMAL) Measles IgG antibody (10/23/2022 5:51 PM EXTENSION SPECIALIST) Measles IgG Nonreactiv e(A) [facility] Comment:Non-reactive: No det ectable antibody to measles.??Such individuals are presumed to be uninfected and susceptible to primary infection. Blood 10/23/2022 5:51 PM EXTENSION SPECIALIST 10/23/2022 5:55 PM EXTENSION SPECIALIST us Valorie Kulkarni NP LAB MICROBIOLOGY - GENERAL O RDERABLES Final Result [facility] [place] [address] documented in this encounter Visit Diagnoses Not on filedocumented in this encounter Care Teams Calender Machine Operator Helper Relationship Specialty Start Date End Date Elizabeth Borrego PA [address] [facility] [facility] [address] [place] [address] PCP - General Internal Medicine 03/25/20 09/27/23 Luann Lawrence NP Nurse Practitioner Nurse Practitioner 01/06/19 Adarsh Tuttle MD [address] [place] [address] Consulting Physician Gastroenterology 02/22/19 Sebastien Martinez DO [address] [place] [address] Medical Oncologist/Brass Wind Instrument Maker Hematology and Oncology 02/22/19 Guru Winters DO [address] [place] [address] Consulting Physician Gastroenterology 02/22/19 Gato Abrams MD [address] [place] [id number] Surgeon Surgical Oncology 09/07/19 Marina Rosales MD [address] [facility] [address] [place] [address] Consulting Physician General Surgery 03/24/21 documented as of this encounter
--- OUTSIDE RECORDS SUMMARY | 2024-10-04 02:58 | XMS_ITS | Encounter Summary ---
Author Organization [facility] Address [address] [place] [address] Phone Care Team Providers Care Nocturnist Physician Name Role Phone Luann Lawrence ANUP Unavailable [phone] Adarsh Tuttle MD Unavailable [phone] Sebastien Martinez DO Unavailable [phone] Guru Winters DO Unavailable [phone] Gato Abrams MD Unavailable [phone] Elizabeth Borrego Primary Care Provider [phone] Marina Rosales MD Unavailable [phone] Encounter Details Date Type Department Care Team (Late st Contact Info) Description 12/23/2022 Telephone [facility] Oncology 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 Martinez. This can be a phone visit on next Wednesday per Dr. Martinez. O BRACER documented in this encounter Plan of Treatment Not on file documented as of this encounter Visit Diagnoses Not on filedocumented in this encounter Care Teams Nocturnist Physician Relationship Specialty Start Date End Date Elizabeth Borrego PA [address] [facility] [address] [place] [address] PCP - General Internal Medicine 03/25/20 09/27/23 Luann Lawrence NP Nurse Practitioner Nurse Practitioner 01/06/19 Adarsh Tuttle MD [address] [place] [address] Consulting Physician Gastroenterology 02/22/19 Sebastien Martinez DO [facility]8 [facility] [address] [place] [address] Medical Oncologist/Steward/Stewardess Third Class Hematology and Oncology 02/22/19 Guru Winters DO [address] [place] [id number] Consulting Physician Gastroenterology 02/22/19 Gato Abrams MD [address] [place] [address] Surgeon Surgical Oncology 09/07/19 Marina Rosales MD [address] [place] [address] Consulting Physician General Surgery 03/24/21 documented as of this encounter
--- OUTSIDE RECORDS SUMMARY | 2024-10-04 02:58 | XMS_ITS | Encounter Summary ---
Author Organization [facility] Healthcare Address [address] [place] [address] Care Team Providers Care Roofer Assistant Name Role Phone Luann Lawrence NP Unavailable [phone] Adarsh Tuttle MD Unavailable [phone] Sebastien Martinez DO Unavailable [phone] Guru Winters DO Unavailable [phone] Gato Abrams MD Unavailable [phone] Elizabeth Borrego Primary Care Provider [phone] Marina Rosales MD Unavailable [phone] Encounter Details Date Type Department Care Team (Late st Contact Info) Description 03/02/2023 4:40 PM CDT Lab [facility] Outpatient Lab [address] [place] [address] Malignant carcinoid tumor of stomach (HCC) Social History Tobacco Use Types Packs/Day [...] on file 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:22 AM 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 Gender Identity Female 06/07/2020 8:39 AM CDT Sexual Orientation Not on file 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 Not on file Not on file documented as of this encounter Plan of Treatment Not on file documented as of this encounter Visit Diagnoses Diagnosis Malignant carcinoid tumor of stomach (HCC) Malignant carcinoid tumor of the stomach documented in this encounter Care Teams Roofer Assistant Relationship Specialty Start Date End Date Elizabeth Borrego PA 10[address] [facility] [address] [place], [place] [phone] PCP - General Internal Medicine 03/25/20 09/27/23 Luann Lawrence, ANUP Nurse Practitioner Nurse Practitioner 01/06/19 Adarsh Tuttle MD [address] [facility] [address] [place] [address] Consulting Physician Gastroenterology 02/22/19 Sebastien Martinez DO [address] [place] [address] [address] [place], [place] [address] Medical Oncologist/Chorus Master Hematology and Oncology 02/22/19 Guru Winters DO [facility] [address] Consulting Physician Gastroenterology 02/22/19 Gato Abrams MD [address] [place] [address] 8[address]959 Surgeon Surgical Oncology 09/07/19 Marina Rosales MD [address] [place] [address] Consulting Physician General Surgery 03/24/21 documented as of this encounter
--- OUTSIDE RECORDS SUMMARY | 2024-10-04 02:59 | XMS_ITS | Encounter Summary ---
Author Organization [facility] Address [address] [place] [address] Phone Care Team Providers Care Answering Service Telephone Operator Name Role Phone MelindaLuann oh Aditya HEBERT Unavailable [phone] Adarsh Tuttle MD Unavailable [phone] Sebastien Martinez DO Unavailable [phone] Guru Winters DO Unavailable [phone] Gato Abrams MD Unavailable [phone] Elizabeth Borrego Primary Care Provider [phone] Marina Rosales MD Unavailable [phone] Reason for Visit * Episode Based Medications (Routine) - Closed Specialty Diagnoses / Procedures Referred By Contjimmy t Referred To Contact Oncology Diagnoses Malignant carcinoid tumor of stomach (HCC) Procedures [place] OCTREOTIDE INJECTION, DEPOT Sebastien Martinez, [facility] [address] Phone: tel: fax: [facility] Oncology [address] [address] Phone: tel: fax: Referral ID Status Reason Start Date Expiration Date Visits Re quested Visits Authorized [id number] Closed 2022 02/19/2023 1 50 Encounter Details Date Type Department Care Team (Late st Contact Info) Description 09/30/2022 10:15 AM [place] BAILIFF Infusion [facility] Oncology 1418 [facility] [address] [place] [address] Malignant carcinoid tumor of stomach [...] on file 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:22 AM [place] BAILIFF Gender Identity Female 06/07/2020 8:39 AM CDT Sexual Orientation Not on file 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 Not on file Not on file documented as of this encounter Last Filed Vital Signs Vital Sign Reading Time Taken Comments Blood Pressure 132/80 09/30/2022 10:00 AM [place] BAILIFF Pulse 57 09/30/2022 10:00 AM [place] BAILIFF Temperature 36.4 ??C (97.5 ??F) 09/30/2022 10:[address] Respiratory Rate 16 09/30/2022 10:00 AM [place] BAILIFF Oxygen Saturation 98% 09/30/2022 10:00 AM [place] BAILIFF Inhaled Oxygen Concentration - - Weight 75.8 kg (167 lb) 09/30/2022 10:00 AM [place] BAILIFF Height - - Body Mass Index 28.67 07/08/2022 8:12 AM CDT documented in this encounter Nursing Notes * Rachana Ribeiro RN - 09/30/2022 10:15 AM CST Oncology Nursing Note [facility] Fabiola Gibson is a 57 y.o. female who presents for the following injection: Octreotide. Nursing Assessment WNL per patient. BP: 132/80 Temp: 36.4 ??C (97.5 ??F) Temp src: Oral Pulse: 57 Resp: 16 SpO2: 98 % Weight: 75.8 kg (167 lb) Patient: met treatment parameters Fabiola Gibson tolerated injection well Discharge Plan Discharge instructions given to patient. Discharge Mode: Ambulatory Accompanied by: Self Discharged To: Home BAILIFF documented in this encounter Plan of Treatment [...] 10 mg 10 mg, intramuscular, Once, On Wed09/30/22 at 1015, For 1 dose, Refrigerate. For IM intragluteal administration only- alternate gluteal sites. Shamir.Indications:Malignant carcinoid tumor of stomach (HCC) Given 09/30/2022 10:05 AM [place] BAILIFF 10 mg Right Dorsogluteal/Butt ock documented in this encounter Orders Appointment Requests Count Last Ordered Date Fi rst Ordered Date ONCBCN INJECTION APPOINTMENT REQUEST 1 09/17 documented in this encounter Care Teams Answering Service Telephone Operator Relationship Specialty Start Date End Date Elizabeth Borrego PA [address] [facility] [address] [place] [address] PCP - General Internal Medicine 03/25/20 09/27/23 Luann Lawrence NP Nurse Practitioner Nurse Practitioner 01/06/19 Adarsh Tuttle MD [address] [facility] [address] [place] [address] Consulting Physician Gastroenterology 02/22/19 Sebastien Martinez DO [facility] [address] Medical Oncologist/Licensed Land Surveyor Hematology and Oncology 02/22/19 Guru Winters DO [facility] [address] Consulting Physician Gastroenterology 02/22/19 Gato Abrams MD [address] [place] [id number] Surgeon Surgical Oncology 09/07/19 Marina Rosales MD 10[address] [facility] 500 [place], [place] [id number] Consulting Physician General Surgery 03/24/21 documented as of this encounter
--- OUTSIDE RECORDS SUMMARY | 2024-10-04 02:59 | XMS_ITS | Encounter Summary ---
Author Organization [facility] Address [address] [place] [address] Phone Care Team Providers Care Quantitative Researcher Name Role Phone Luann Lawrence ANUP Unavailable [phone] Adarsh Tuttle MD Unavailable [phone] Sebastien Martinez DO Unavailable Guru Winters DO Unavailable [phone] Gato Abrams MD Unavailable [phone] Elizabeth Borrego Primary Care Provider [phone] Marina Rosales MD Unavailable [phone] Encounter Details Date Type Department Care Team (Late st Contact Info) Description 07/07/2022 Orders Only [facility] Physicians [facility] Oncology [address] 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 Gender Identity Female 06/07/2020 8:39 AM CDT [...] stomach documented in this encounter Care Teams Quantitative Researcher Relationship Specialty Start Date End Date Elizabeth Borrego PA 1095 [facility] 500 [place], [place] [phone] PCP - General Internal Medicine 03/25/20 09/27/23 Luann Lawrence NP Nurse Practitioner Nurse Practitioner 01/06/19 Adarsh Tuttle MD [address] [facility] [address] [place] [address] Consulting Physician Gastroenterology 02/22/19 Sebastien Martinez DO [address] [place] [id number] Medical Oncologist/Bottom Scrubber Hematology and Oncology 02/22/19 Guru Winters DO [address] [place] [address] Consulting Physician Gastroenterology 02/22/19 Gato Abrams MD [address] [place] [address] Surgeon Surgical Oncology 09/07/19 Marina Rosales MD [address] [place] [address] [address] [place] [address] Consulting Physician General Surgery 03/24/21 documented as of this encounter
--- OUTSIDE RECORDS SUMMARY | 2024-10-04 02:59 | XMS_ITS | Encounter Summary ---
Author Organization [facility] Healthcare Address [address] [place] [address] Care Team Providers Care Career Discovery Teacher Name Role Phone Luann Lawrence NP Unavailable [phone] Adarsh Tuttle MD Unavailable [phone] Sebastien Martinez DO Unavailable [phone] Guru Winters DO Unavailable [phone] Gato Abrams MD Unavailable [phone] Elizabeth Borrego Primary Care Provider [phone] Marina Rosales MD Unavailable [phone] Encounter Details Date Type Department Care Team (Late st Contact Info) Description 07/03/2022 1:30 PM CDT Immunization [facility] [address] [place] [address] Encounter for vaccination (Primary Dx) Social History Tobacco Use Types [...] on file 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 Gender Identity Female 06/07/2020 8:39 AM CDT Sexual Orientation Not on file 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 Not on file Not on file documented as of this encounter Plan of Treatment Not on file documented as of this encounter Visit Diagnoses Diagnosis Encounter for vaccination- Primary documented in this encounter Orders Immunization/Injection Count Last Ordered Date First Ordered Date PFIZER SARS-COV-2 BIVALENT B OOSTER VACCINATION (12+ YRS) 1 07/03/2022 documented in this encounter Care Teams Career Discovery Teacher Relationship Specialty Start Date End Date Elizabeth Borrego PA 10[address] [facility] 500 [place], [place] [phone] PCP - General Internal Medicine 03/25/20 09/27/23 Luann Lawrence, ANUP Nurse Practitioner Nurse Practitioner 01/06/19 Adarsh Tuttle MD [address] [facility] 210 [place] [address] Consulting Physician Gastroenterology 02/22/19 Sebastien Martinez DO [address] [place] [address] Medical Oncologist/Beef Trimmer Hematology and Oncology 02/22/19 Guru Winters DO [address] [place] [phone] Consulting Physician Gastroenterology 02/22/19 Gato Abrams MD [address] [place] [address] Surgeon Surgical Oncology 09/07/19 Marina Rosales MD 1095 [facility] 500 [place], [place] [phone] Consulting Physician General Surgery 03/24/21 documented as of this encounter
--- OUTSIDE RECORDS SUMMARY | 2024-10-04 02:59 | XMS_ITS | Encounter Summary ---
Author Organization [facility] Address [address] [place] [address] Phone Care Team Providers Care Turbine Blade Assembler Name Role Phone MelindaLuann oh Aditya HEBERT Unavailable [phone] Adarsh Tuttle MD Unavailable [phone] Sebastien Martinez DO Unavailable [phone] Guru Winters DO Unavailable [phone] Gato Abrams MD Unavailable [phone] Elizabeth Borrego Primary Care Provider [phone] Marina Rosales MD Unavailable [phone] Reason for Visit * Episode Based Medications (Routine) - Closed Specialty Diagnoses / Procedures Referred By Contjimmy t Referred To Contact Oncology Diagnoses Malignant carcinoid tumor of stomach (HCC) Procedures [place] OCTREOTIDE INJECTION, DEPOT Sebastien Martinez, [facility] [address] Phone: tel: fax: [facility] Physicians [facility] Oncology [address] [address] Phone: tel: fax: Referral ID Status Reason Start Date Expiration Date Visits Re quested Visits Authorized [id number] Closed 2022 02/19/2023 1 50 Encounter Details Date Type Department Care Team (Late st Contact Info) Description 09/02/2022 10:15 AM FORMAL WEAR RENTAL CLERK Infusion [facility] Oncology 1418 [facility] [address] [place] [address] Malignant carcinoid tumor of stomach [...] on file 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:22 AM FORMAL WEAR RENTAL CLERK Gender Identity Female 06/07/2020 8:39 AM CDT Sexual Orientation Not on file 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 file Not on file documented as of this encounter Last Filed Vital Signs Vital Sign Reading Time Taken Comments Blood Pressure 122/68 09/02/2022 9:50 AM FORMAL WEAR RENTAL CLERK Pulse 88 09/02/2022 9:50 AM FORMAL WEAR RENTAL CLERK Temperature 36.5 ??C (97.7 ??F) 09/02/2022 9:50 AM CS T Respiratory Rate 18 09/02/2022 9:50 AM FORMAL WEAR RENTAL CLERK Oxygen Saturation 100% 09/02/2022 9:50 AM FORMAL WEAR RENTAL CLERK Inhaled Oxygen Concentration - - Weight 74.6 kg (164 lb 6.4 oz) 09/02/2022 9:50 A M FORMAL WEAR RENTAL CLERK Height - - Body Mass Index 28.22 07/08/2022 8:12 AM CDT documented in this encounter Nursing Notes * Ana Luisa Dowling RN - 09/02/2022 10:15 AM CST Oncology Nursing Note [facility] Fabiola Gibson is a 57 y.o. female who presents for the following injection: octreotide. Nursing Assessment Additional Notes: Patient reports feeling well today and denies any complaints. BP: 122/68 Temp: 36.5 ??C (97.7 ??F) Temp src: Oral Pulse: 88 Resp: 18 SpO2: 100 % Weight: 74.6 kg (164 lb 6.4 oz) Patient: met treatment parameters Fabiola Gibson tolerated injection well Discharge Plan Discharge instructions given to patient. Discharge Mode: Ambulatory Accompanied by: Self Discharged To: Home AL WEAR RENTAL CLERK documented in this encounter Plan of Treatment [...] 10 mg 10 mg, intramuscular, Once, On Wed09/02/22 at 1015, For 1 dose, Refrigerate. For IM intragluteal administration only- alternate gluteal sites. Shamir.Indications:Malignant carcinoid tumor of stomach (HCC) Given 09/02/2022 9:53 AM FORMAL WEAR RENTAL CLERK 10 mg Right Dorsogluteal/Butt ock documented in this encounter Orders Appointment Requests Count Last Ordered Date Fi rst Ordered Date ONCBCN INJECTION APPOINTMENT REQUEST 1 08/18 documented in this encounter Care Teams Turbine Blade Assembler Relationship Specialty Start Date End Date Elizabeth Borrego PA [address] [facility] [address] [place] [address] PCP - General Internal Medicine 03/25/20 09/27/23 Luann Lawrence NP Nurse Practitioner Nurse Practitioner 01/06/19 Adarsh Tuttle MD [address] [facility] [address] [place] [address] Consulting Physician Gastroenterology 02/22/19 Sebastien Martinez DO [address] [place] [address] Medical Oncologist/Journeyman Electrician Pv Installer Hematology and Oncology 02/22/19 Guru Winters DO [address] [place] [address] Consulting Physician Gastroenterology 02/22/19 Gato Abrams MD [address] [place] [address] Surgeon Surgical Oncology 09/07/19 Marina Rosales MD [address] [place] [address] [address] [place] [address] Consulting Physician General Surgery 03/24/21 documented as of this encounter
--- OUTSIDE RECORDS SUMMARY | 2024-10-04 02:59 | XMS_ITS | Encounter Summary ---
Author Organization [facility] Address [address] [place] [address] Phone Care Team Providers Care Assistant Art Director Name Role Phone MelindaLuann oh Aditya HEBERT Unavailable [phone] Adarsh Tuttle MD Unavailable [phone] Sebastien Martinez DO Unavailable [phone] Guru Winters DO Unavailable [phone] Gato Abrams MD Unavailable [phone] Elizabeth Borrego Primary Care Provider [phone] Marina Rosales MD Unavailable [phone] Reason for Visit * Episode Based Medications (Routine) - Closed Specialty Diagnoses / Procedures Referred By Contjimmy t Referred To Contact Oncology Diagnoses Malignant carcinoid tumor of stomach (HCC) Procedures [place] OCTREOTIDE INJECTION, DEPOT Sebastien Martinez, [facility]8 [address] [address] Phone: tel: fax: [facility] Physicians [facility] Oncology [address] [address] Phone: tel: fax: Referral ID Status Reason Start Date Expiration Date Visits Re quested Visits Authorized [id number] Closed 2022 02/19/2023 1 50 Encounter Details Date Type Department Care Team (Late st Contact Info) Description 08/05/2022 10:30 AM CDT Infusion [facility] Physicians [facility] Oncology 1418 [facility] [address] [place] [address] Malignant carcinoid tumor of stomach [...] on file 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 Gender Identity Female 06/07/2020 8:39 AM CDT Sexual Orientation Not on file 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 Not on file Not on file documented as of this encounter Last Filed Vital Signs Vital Sign Reading Time Taken Comments Blood Pressure 144/74 08/05/2022 10:40 AM CDT Pulse 62 08/05/2022 10:40 AM CDT Temperature - - Respiratory Rate - - Oxygen Saturation 98% 08/05/2022 10:40 AM CDT Inhaled Oxygen Concentration - - Weight 73.3 kg (161 lb 9.6 oz) 08/05/2022 10:40 AM CDT Height - - Body Mass Index 27.74 07/08/2022 8:12 AM CDT documented in this encounter Nursing Notes * Marylou Llamas, [place] - 08/05/2022 10:30 AM CDT Oncology Nursing Note [facility] Fabiola Gibson is a 57 y.o. female who presents for the following injection: Ocreotide. Nursing Assessment Additional Notes: Pt denies any c/o today. BP: 144/74 Pulse: 62 SpO2: 98 % Weight: 73.3 kg (161 lb 9.6 oz) Patient: met treatment parameters Fabiola Gibson tolerated injection well Discharge Plan Discharge instructions given to patient. Discharge Mode: Ambulatory Accompanied by: Self Discharged To: Home documented in this encounter Plan of Treatment [...] 10 mg 10 mg, intramuscular, Once, On Wed08/05/22 at 1100, For 1 dose, Refrigerate. For IM intragluteal administration only- alternate gluteal sites. Shamir.Indications:Malignant carcinoid tumor of stomach (HCC) Given 08/05/2022 10:44 AM CDT 10 mg Left Dorsogluteal/Butt ock documented in this encounter Orders Appointment Requests Count Last Ordered Date Fi rst Ordered Date ONCBCN INJECTION APPOINTMENT REQUEST 1 07/18 documented in this encounter Care Teams Assistant Art Director Relationship Specialty Start Date End Date Elizabeth Borrego PA [address] [facility] [address] [place] [address] PCP - General Internal Medicine 03/25/20 09/27/23 Luann Lawrence NP Nurse Practitioner Nurse Practitioner 01/06/19 Adarsh Tuttle MD [address] [facility] [address] [place] [address] Consulting Physician Gastroenterology 02/22/19 [place] [address] [place] [address] Medical Oncologist/Cabin Supervisor Hematology and Oncology 02/22/19 Guru Winters DO [address] [place] [address] Consulting Physician Gastroenterology 02/22/19 Gato Abrams MD [address] [place] [address] Surgeon Surgical Oncology 09/07/[address] [facility]5 [facility] 500 [place], [place] [phone] Consulting Physician General Surgery 03/24/21 documented as of this encounter
--- OUTSIDE RECORDS SUMMARY | 2024-10-04 02:59 | XMS_ITS | Encounter Summary ---
Author Organization [facility] Address [address] [place] [address] Phone Care Team Providers Care Set Up Machinist Name Role Phone MelindaLuann oh Aditya HEBERT Unavailable [phone] Adarsh Tuttle MD Unavailable [phone] Sebastien Martinez DO Unavailable Guru Winters DO Unavailable [phone] Gato Abrams MD Unavailable [phone] Elizabeth Borrego Primary Care Provider [phone] Marina Rosales MD Unavailable [phone] Reason for Visit * Episode Based Medications (Routine) - Closed Specialty Diagnoses / Procedures Referred By Contjimmy t Referred To Contact Oncology Diagnoses Malignant carcinoid tumor of stomach (HCC) Procedures [place] OCTREOTIDE INJECTION, DEPOT Sebastien Martinez, [facility] [address] Phone: tel: fax: [facility] [address] [address] Phone: tel: fax: Referral ID Status Reason Start Date Expiration Date Visits Re quested Visits Authorized [id number] Closed 2022 02/19/2023 1 50 Encounter Details Date Type Department Care Team (Late st Contact Info) Description 07/08/2022 8:45 AM CDT Infusion [facility] 14[address] [facility] [address] [place] [address] Malignant carcinoid tumor of stomach [...] on file 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:22 AM 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 female who presents for the following injection: octreotide. Nursing Assessment Additional Notes: no complaints BP: 132/73 Temp: 36.7 ??C (98.1 ??F) Temp src: Oral Pulse: 63 Resp: 18 SpO2: 98 % Height: 162.6 cm (5' 4 ) Weight: 73.3 kg (161 lb 9.6 oz) (without shoes) Patient: met treatment parameters Fabiola Gibson tolerated injection well Additional Notes: right buttock Discharge Plan Discharge instructions given to patient. [...] 10 mg 10 mg, intramuscular, Once, On Wed07/08/22 at 1000, For 1 dose, Refrigerate. For IM intragluteal administration only- alternate gluteal sites. Shamir.Indications:Malignant carcinoid tumor of stomach (HCC) Given 07/08/2022 9:33 AM CDT 10 mg Right Dorsogluteal/Butt ock documented in this encounter Orders Appointment Requests Count Last Ordered Date Fi rst Ordered Date ONCBCN INJECTION APPOINTMENT REQUEST 1 06/19 documented in this encounter Care Teams Set Up Machinist Relationship Specialty Start Date End Date Elizabeth Borrego PA 10[address] [facility] [address] [place] [address] PCP - General Internal Medicine 03/25/20 09/27/23 Luann Lawrence NP Nurse Practitioner Nurse Practitioner 01/06/19 Adarsh Tuttle MD [address] [facility] [address] [place] [address] Consulting Physician Gastroenterology 02/22/19 Sebastien Martinez DO [address] [place] [id number] Medical Oncologist/Slicing Machine Feeder Hematology and Oncology 02/22/19 Guru Winters DO [address] [place] [address] Consulting Physician Gastroenterology 02/22/19 Gato Abrams MD [address] [place] [address] Surgeon Surgical Oncology 09/07/19 Marina Rosalse MD [address] [place] [address] [address] [place] [address] Consulting Physician General Surgery 03/24/21 documented as of this encounter
--- OUTSIDE RECORDS SUMMARY | 2024-10-04 02:59 | XMS_ITS | Encounter Summary ---
Author Organization [facility] Address [address] [place] [address] Care Team Providers Care Electrical Accessories Assembler Name Role Phone Luann Lawrence NP Unavailable [phone] Adarsh Tuttle MD Unavailable Sebastien Martinez DO Unavailable [phone] Guru Winters DO Unavailable [phone] Gato Abrams MD Unavailable Elizabeth Borrego Primary Care Provider [phone] Marina Rosales MD Unavailable [phone] Reason for Visit * Episode Based Medications (Routine) - Closed Specialty Diagnoses / Procedures Referred By Clemencia mendez Referred To Contact Oncology Diagnoses Malignant carcinoid tumor of stomach (HCC) Procedures [place] OCTREOTIDE INJECTION, DEPOT Sebastien Martinez DO [facility] [address] Phone: tel: fax: [facility] Oncology [address] [address] Phone: tel: fax: Referral ID Status Reason Start Date Expiration Date Visits Re quested Visits Authorized [id number] Closed 2022 02/19/2023 1 50 Encounter Details Date Type Department Care Team (Late st Contact Info) Description 07/08/2022 7:45 AM CDT Lab [facility] Lab [facility]8 [place] [address] Malignant carcinoid tumor of stomach (CMS/HCC) (HCC) [...] on file 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 Gender Identity Female 06/07/2020 8:39 AM CDT Sexual Orientation Not on file 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 Not on file Not on file documented as of this encounter Plan of Treatment Not on file documented as of this encounter Procedures Procedure Name Priority Date/Time Associated Diagnosis Comments EGFR Routine 07/08/2022 7:57 AM CDT Malignant carcinoid tumor of stomach (CMS/HCC) (HCC) DIFFERENTIAL AUTO STAT 07/08/2022 7:5 7 AM CDT Malignant carcinoid tumor of stomach (CMS/HCC) (HCC) CHROMOGRANIN A Routine 07/08/2022 7:57 AM CDT Malignant carcinoid tumor of stomach (CMS/HCC) (HCC) CBC WITH AUTO DIFFERENTIAL STAT 07/08/2022 7:57 AM CDT Malignant carcinoid tumor of stomach (CMS/HCC) (HCC) GASTRIN Routine 07/08/2022 7:57 AM CDT Malignant carcinoid tumor of stomach (CMS/HCC) (HCC) COMPREHENSIVE METABOLIC PANEL Routine 07/08/2022 7:57 AM CDT Malignant carcinoid tumor of stomach (CMS/HCC) (HCC) documented in this encounter Results * eGFR (07/08/2022 7:57 AM CDT) eGFR 102 mL/min/1. 73 m2 ANDREA CASTILLO Comment: Interpretive [...] was last reviewed 2021. Testing performed by: [facility], [address] [place] [address], [place]., [address] Blood 07/08/2022 7:57 AM CDT 07/08/2022 8:14 AM CDT us Sebastien Martinez DO LAB BLOOD ORDERABLES Final R esult ANDREA CASTILLO [address] [facility] Department [place] [address] * Differential, auto (07/08/2022 7:57 AM CDT) Neutrophil abs 2.1 1.7 - 6.5 K/cumm ANDREA Comment:Testing performed by : [address] [address] Lymphocyte abs 1.0 0.8 - 3.3 K/cumm ANDREA Comment:Testing performed by : [address] [address] Monocyte abs 0.3 0.2 - 0.8 K/cumm ANDREA Comment:Testing performed by : [address] [address] Eosinophil abs 0.1 0.0 - 0.5 K/cumm ANDREA Comment:Testing performed by : [address] [address] Neutrophil pct 58.8 % ANDREA Comment: Interpretive Data Percent cell count reference ranges are not reported, since discordance with absolute values may lead to misinterpretation of CBC data. Current Interpretive Data was last revised on 2018. Testing performed by: [address] [address] Imm gran pct 0.3 % ANDREA Comment: Interpretive Data Percent cell count reference ranges are not reported, since discordance with absolute values may lead to misinterpretation of CBC data. Current Interpretive Data was last revised on 2018. Testing performed by: [address] [address] Lymphocyte pct 28.8 % [employer] [facility] [employer] Comment: Interpretive Data Percent cell count reference ranges are not reported, since discordance with absolute values may lead to misinterpretation of CBC data. Current Interpretive Data was last revised on 2018. Testing performed by: [address] [address] Monocyte pct 7.3 % CERTAVO Comment: Interpretive Data Percent cell count reference ranges are not reported, since discordance with absolute values may lead to misinterpretation of CBC data. Current Interpretive Data was last revised on 2018. Testing performed by: [facility], [address] [place] [address]., [address] Eosinophil pct 3.7 % ANDREA Comment: Interpretive Data Percent cell count reference ranges are not reported, since discordance with absolute values may lead to misinterpretation of CBC data. Current Interpretive Data was last revised on 2018. Testing performed by: [address] [address] Basophil pct 1.1 % ANDREA Comment: Interpretive Data Percent cell count reference ranges are not reported, since discordance with absolute values may lead to misinterpretation of CBC data. Current Interpretive Data was last revised on 2018. Testing performed by: [address] [address] Blood 07/08/2022 7:57 AM CDT 07/08/2022 8:14 AM CDT Sebastien Martinez DO LAB BLOOD ORDERABLES Final R esult ANDREA [address] [facility] Department [place] [address] * Chromogranin A (07/08/2022 7:57 AM CDT) Chromogranin A 24 <93 ng/mL ANDREA Comment: ADDITIONAL INFORMATION This test was developed and its performance characteristics determined by [facility] in a manner consistent with CLIA requirements. [...] a homogeneous time-resolved immunofluorescent assay manufactured by [employer] and performed on the BRAHMS Kryptor Compact Plus. ? Values obtained with different assay methods or kits may be different and cannot be used interchangeably. ? Test results cannot be interpreted as absolute evidence for the presence or absence of malignant disease. Test Performed by: [place] [address] Seasonal Warehouse Associate: Bjorn Morris M.D. Ph.D.; CLIA# [id number] Testing performed by: [address], [address] Blood 07/08/2022 7:57 AM CDT 07/08/2022 8:14 AM CDT Sebastien Martinez LAB BLOOD ORDERABLES Final R esult Performing Organization Address [facility] de Phone Number [address] [place] [address] * Gastrin (07/08/2022 7:57 AM CDT) [facility] Signature Gastrin <10 pg/mL ANDREA Comment: REFERENCE VALUE <100 Reference ranges valid for >= 8 hour fast. Test Performed by: [address] [address] Seasonal Warehouse Associate: Bjorn Morris M.D. Ph.D.; CLIA# [id number] Testing performed by: [address] [address] Blood 07/08/2022 7:57 AM CDT 07/08/2022 8:14 AM CDT Sebastien Martinez DO LAB BLOOD ORDERABLES Final R esult Performing Organization Address [facility] de Phone Number [address] [email or web address] [address] * (ABNORMAL) CBC with auto differential (07/08/2022 7:57 AM CDT) [facility] WBC 3.5(L) 3.8 - 9.9 K/cumm ANDREA Comment:Testing performed by : [address] [address] Hgb 12.4 11.9 - 15.5 g/dL ANDREA Comment:Testing performed by : [address] [address] Hct 37.5 35.6 - 45.5 % ANDREA Comment:Testing performed by : [address] [address] Plt 245 150 - 400 K/cumm ANDREA Comment:Testing performed by : [address] [address] MPV 9.6 9.1 - 12.3 fL ANDREA Comment:Testing performed by : [address], [address] RBC 4.23 3.90 - 5.20 M/cumm ANDREA Comment:Testing performed by : [address] [address] MCV 88.7 81.3 - 96.4 fL ANDREA Comment:Testing performed by : [address] [address] MCH 29.3 27.1 - 33.3 pg ANDREA Comment:Testing performed by : [address] [address] MCHC 33.1 32.3 - 35.7 g/dL ANDREA Comment:Testing performed by : [address], [address] RDW CV 12.0 11.1 - 14.9 % ANDREA Comment:Testing performed by : [address], [address] RDW SD 38.9 35.7 - 48.1 fL ANDREA Comment:Testing performed by : [address], [address] Blood 07/08/2022 7:57 AM CDT 07/08/2022 8:14 AM CDT Sebastien Martinez DO LAB BLOOD ORDERABLES Final R esult ANDREA CASTILLO [address] [facility] Department [place] [address] * Comprehensive metabolic panel (07/08/2022 7:57 AM CDT) Sodium 140 135 - 145 mmol/L ANDREA Comment:Testing performed by : [address] [address] Potassium, pl 4.4 3.3 - 4.9 mmol/L ANDREA Comment:Testing performed by : [address] [address] Chloride 101 97 - 110 mmol/L ANDREA Comment:Testing performed by : [address] [address] CO2 26 22 - 32 mmol/L ANDREA Comment:Testing performed by : [address] [address] Anion gap 13 2 - 15 mmol/L ANDREA Comment:Testing performed by : [address] [address] BUN 17 8 - 25 mg/dL ANDREA Comment:Testing performed by : [address] [address] Creatinine 0.70 0.60 - 1.10 mg/dL ANDREA Comment:Testing performed by : [address] [address] Glucose 136 70 - 199 mg/dL ANDREA Comment: Interpretive [...] classification and Diagnosis of Diabetes Diabetes Care 2017;40 (Suppl. 1):S11. Current interpretive data was last revised 2017. Testing performed by: [address] [address] Calcium 9.4 8.5 - 10.3 mg/dL ANDREA Comment:Testing performed by : [address] [address] Bilirubin, total 0.4 0.1 - 1.2 mg/dL ANDREA Comment:Testing performed by : [address] [address] Protein, pl 7.6 6.5 - 8.5 g/dL ANDREA Comment:Testing performed by : [address] [address] Albumin 4.6 3.5 - 5.0 g/dL ANDREA Comment:Testing performed by : [address] [address] Alk phos 63 40 - 130 Units/L [facility] [employer] [facility] Comment:Testing performed by : [address] [address] ALT 22 7 - 45 Units/L [facility] Comment:Testing performed by : [address] [address] AST 23 10 - 45 Units/L [facility] Comment:Testing performed by : [address] [address] Blood 07/08/2022 7:57 AM CDT 07/08/2022 8:14 AM CDT us Sebastien Martinez DO LAB BLOOD ORDERABLES Final R esult ANDREA [address] [facility] Department [place] [address] documented in this encounter Visit Diagnoses Diagnosis Malignant carcinoid tumor of stomach (HCC) Malignant carcinoid tumor of the stomach documented in this encounter Orders Appointment Requests Count Last Ordered Date Fi rst Ordered Date ONCBCN LAB APPOINTMENT 1 07/08/2022 documented in this encounter Care Teams Electrical Accessories Assembler Relationship Specialty Start Date End Date Elizabeth Borrego PA [address] [place], [place] [id number] PCP - General Internal Medicine 03/25/20 09/27/23 Luann Lawrence, SHIPPING SUPERVISOR Nurse Practitioner Nurse Practitioner 01/06/19 Adarsh Tuttle MD [address] [facility] [address] [place] [address] Consulting Physician Gastroenterology 02/22/19 Sebastien Martinez DO [address] [place] [address] Medical Oncologist/Roustabout Pusher Hematology and Oncology 02/22/19 Guru Winters DO [address] [place] [address] Consulting Physician Gastroenterology 02/22/19 Gato Abrams MD [address] [place] [address] Surgeon Surgical Oncology 09/07/19 Marina Rosales MD [address] [place] [address] Consulting Physician General Surgery 03/24/21 documented as of this encounter
--- OUTSIDE RECORDS SUMMARY | 2024-10-04 02:59 | XMS_ITS | Encounter Summary ---
Author Organization [facility] Address [address] [place] [address] Phone Care Team Providers Care Project Inspector Name Role Phone Luann Lawrence ANUP Unavailable [phone] Adarsh Tuttle MD Unavailable Sebastien Martinez DO Unavailable [phone] Guru Winters DO Unavailable [phone] Gato Abrams MD Unavailable [phone] Elizabeth Borrego Primary Care Provider [phone] Marina Rosales MD Unavailable [phone] Encounter Details Date Type Department Care Team (Late st Contact Info) Description 09/02/2022 Telephone [facility] On[facility]8 [facility] [address] [place] [address] Tracy Brock, RN Social History [...] on file 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 Gender Identity Female 06/07/2020 8:39 AM CDT Sexual Orientation Not on file 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 Asked that patient call back to verify she received my message and how she is doing. ESSOR OF PRACTICE documented in this encounter Plan of Treatment Not on file documented as of this encounter Visit Diagnoses Not on filedocumented in this encounter Care Teams Project Inspector Relationship Specialty Start Date End Date Elizabeth Borrego PA 10[address] [facility] 500 [place] [address] PCP - General Internal Medicine 03/25/20 09/27/23 Luann Lawrence NP Nurse Practitioner Nurse Practitioner 01/06/19 Adarsh Tuttle MD [address] [facility] [address] [place] [address] Consulting Physician Gastroenterology 02/22/19 Sebastien Martinez DO [address] [place] [address] Medical Oncologist/Emulsion Coater Hematology and Oncology 02/22/19 Guru Winters DO [address] [place] [address] Consulting Physician Gastroenterology 02/22/19 Gato Abrams MD [address] [place] [address] Surgeon Surgical Oncology 09/07/19 Marina Rosales MD [address] [facility] [address] [place] [address] Consulting Physician General Surgery 03/24/21 documented as of this encounter
--- OUTSIDE RECORDS SUMMARY | 2024-10-04 02:59 | XMS_ITS | Encounter Summary ---
Author Organization [facility] Address [address] [place] [address] Phone Care Team Providers Care [employer] Certified Internetwork Expert Name Role Phone Luann Lawrence ANUP Unavailable Adarsh Tuttle MD Unavailable [phone] Sebastien Martinez DO Unavailable [phone] Guru Winters DO Unavailable [phone] Gato Abrams MD Unavailable [phone] Elizabeth Borrego Primary Care Provider [phone] Marina Rosales MD Unavailable [phone] Encounter Details Date Type Department Care Team (Late st Contact Info) Description 08/04/2022 Orders Only 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 Gender Identity Female 06/07/2020 8:39 AM CDT [...] stomach documented in this encounter Care Teams [employer] Certified Internetwork Expert Relationship Specialty Start Date End Date Elizabeth Borrego PA 1095 [facility] 500 [place], [place] [id number] PCP - General Internal Medicine 03/25/20 09/27/23 Luann Lawrence NP Nurse Practitioner Nurse Practitioner 01/06/19 Adarsh Tuttle MD [address] [facility] 210 [place] [address] Consulting Physician Gastroenterology 02/22/19 Sebastien Martinez DO [address] [place] [id number] Medical Oncologist/Wedding Photographer Hematology and Oncology 02/22/19 Guru Winters DO [address] [place] [address] Consulting Physician Gastroenterology 02/22/19 Gato Abrams MD [address] [place] [address] Surgeon Surgical Oncology 09/07/19 Marina Rosales MD [address] [place] [address] [address] [place] [address] Consulting Physician General Surgery 03/24/21 documented as of this encounter
--- OUTSIDE RECORDS SUMMARY | 2024-10-04 02:59 | XMS_ITS | Encounter Summary ---
Author Organization [facility] Address [address] [facility] [address] [place] [address] Care Team Providers Care Security Alarm Technician Name Role Phone Melinda Luann Burgess NP Unavailable [phone] Adarsh Tuttle MD Unavailable [phone] Sebastien Martinez DO Unavailable [phone] Guru Winters DO Unavailable [phone] Gato Abrams MD Unavailable Elizabeth Borrego Primary Care Provider [phone] Marina Rosales MD Unavailable [phone] Encounter Details Date Type Department Care Team (Late st Contact Info) Description 09/28/2022 Telephone [facility] Cardiology [address] [facility] [address] [place] [address] Rowdy Marroquin MD [address] [facility] [address] [place] [address] Social History Tobacco Use Types Packs/Day Years [...] on file 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 Borrego office called to inform Sunshine that the pt labs are located in [facility]. Cb [phone] TRIMMER documented in this encounter Plan of Treatment Not on file documented as of this encounter Visit Diagnoses Not on filedocumented in this encounter Care Teams Security Alarm Technician Relationship Specialty Start Date End Date Elizabeth Borrego PA [address] [facility] [address] [place] [address] PCP - General Internal Medicine 03/25/20 09/27/23 Luann Lawrence NP Nurse Practitioner Nurse Practitioner 01/06/19 Adasrh Tuttle MD [address] [facility] [address] [place] [address] Consulting Physician Gastroenterology 02/22/19 Sebastien Martinez DO [facility] [address] Medical Oncologist/Fine Arts Model Hematology and Oncology 02/22/19 Guru Winters DO [facility] [address] Consulting Physician Gastroenterology 02/22/19 Gato Abrams MD [address] [place] [address] Surgeon Surgical Oncology 09/07/19 Marina Rosales MD [address] [facility] [address] [place], [place] [id number] Consulting Physician General Surgery 03/24/21 documented as of this encounter
--- OUTSIDE RECORDS SUMMARY | 2024-10-04 02:59 | XMS_ITS | Encounter Summary ---
Author Organization [facility] Address [address] [place] [address] Phone Care Team Providers Care Senior Product Manager Name Role Phone Luann Lawrence ANUP Unavailable [phone] Adarsh Tuttle MD Unavailable [phone] Sebastien Martinez DO Unavailable [phone] Guru Winters DO Unavailable [phone] Gato Abrams MD Unavailable [phone] Elizabeth Borrego Primary Care Provider [phone] Marina Rosales MD Unavailable [phone] Encounter Details Date Type Department Care Team (Late st Contact Info) Description 10/05/2022 Telephone [facility] Oncology [facility]8 [facility] [address] [place] [address] Anna Kelly, A Social History Tobacco Use Types Packs/Day Years [...] on file 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 Martinez. ION BEAMER * Telephone Encounter - Anna Kelly RMA - 10/05/2022 8:55 AM SECTION BEAMER Patient calling stating she has an apt on Wednesday with Dr Martinez. She states when she saw him last he told her he wanted to see her after she saw Dr Abrams. Which her apt was suppose to be today. She states the office called today and said that apt was made in error and she doesn't need to be seen till March. Patient wondering if she should still come in this Wednesday? Anna BISHOP ION BEAMER documented in this encounter Plan of Treatment Not on file documented as of this encounter Visit Diagnoses Not on filedocumented in this encounter Care Teams Senior Product Manager Relationship Specialty Start Date End Date Elizabeth Borrego PA [address] [place] [address] PCP - General Internal Medicine 03/25/20 09/27/23 Luann Lawrence, ANUP Nurse Practitioner Nurse Practitioner 01/06/19 Adarsh Tuttle MD [address] [place] [address] Consulting Physician Gastroenterology 02/22/19 Sebastien Martinez DO [address] [place] [address] Medical Oncologist/Sales And Service Associate Hematology and Oncology 02/22/19 Guru Winters DO [address] [place] [address] Consulting Physician Gastroenterology 02/22/19 Gato Abrams MD [address] [place] [address] Surgeon Surgical Oncology 09/07/19 Marina Rosales MD [address] [place] [address] Consulting Physician General Surgery 03/24/21 documented as of this encounter
--- OUTSIDE RECORDS SUMMARY | 2024-10-04 02:59 | XMS_ITS | Encounter Summary ---
Author Organization [facility] Address [address] [place] [address] Phone Care Team Providers Care Straw Baler Name Role Phone Luann Lawrence ANUP Unavailable [phone] Adarsh Tuttle MD Unavailable [phone] Sebastien Martinez DO Unavailable Guru Winters DO Unavailable [phone] Gato Abrams MD Unavailable [phone] Elizabeth Borrego Primary Care Provider [phone] Marina Rosales MD Unavailable [phone] Encounter Details Date Type Department Care Team (Late st Contact Info) Description 09/29/2022 Orders Only [facility] Physicians [facility] Oncology [address] [facility] [address] [place] [address] Sebastien Martinez DO [address] [facility] [address] [place] [address] Malignant carcinoid tumor of stomach (CMS/HCC) [...] on file 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 Gender Identity Female 06/07/2020 8:39 AM CDT Sexual Orientation Not on file 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 on file Not on file documented as of this encounter Plan of Treatment Not on file documented as of this encounter Visit Diagnoses Diagnosis Malignant carcinoid tumor of stomach (HCC)- Primary Malignant carcinoid tumor of the stomach documented in this encounter Care Teams Straw Baler Relationship Specialty Start Date End Date Elizabeth Borrego PA [address] [facility] 500 [place], [place] [id number] PCP - General Internal Medicine 03/25/20 09/27/23 Luann Lawrence NP Nurse Practitioner Nurse Practitioner 01/06/19 Adarsh Tuttle MD [address] [facility] 210 [place] [address] Consulting Physician Gastroenterology 02/22/19 Sebastien Martinez DO [address] [place] [id number] Medical Oncologist/Oil Speculator Hematology and Oncology 02/22/19 Guru Winters DO [address] [place] [address] Consulting Physician Gastroenterology 02/22/19 Gato Abrams MD [address] [place] [address] Surgeon Surgical Oncology 09/07/19 Marina Rosales MD [address] [place] [address] [address] [place] [address] Consulting Physician General Surgery 03/24/21 documented as of this encounter
--- OUTSIDE RECORDS SUMMARY | 2024-10-04 02:59 | XMS_ITS | Encounter Summary ---
Author Organization [facility] Address [address] [place] [address] Phone Care Team Providers Care Options Advisor Name Role Phone Luann Lawrence ANUP Unavailable [phone] Adarsh Tuttle MD Unavailable [phone] Sebastien Martinez DO Unavailable [phone] Guru Winters DO Unavailable [phone] Gato Abrams MD Unavailable [phone] Elizabeth Borrego Primary Care Provider [phone] Marina Rosales MD Unavailable [phone] Encounter Details Date Type Department Care Team (Late st Contact Info) Description 06/11/2022 Telephone [facility] Surgery [address] [facility] Advanced Medicine 5th [place] [address] [place] [address] Ana Cristina Pizano Social History Tobacco Use Types Packs/Day Years [...] on file 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:22 AM 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 Attempted to call patient to get patient scheduled for her follow up appointment. Patient stated she does not have her calendar next to her and will call back to schedule her appointment. 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/ ppct for neuroendocrine tumor Maday documented in this encounter Plan of Treatment Not on file documented as of this encounter Visit Diagnoses Not on filedocumented in this encounter Care Teams Options Advisor Relationship Specialty Start Date End Date Elizabeth Borrego PA [address] [facility] [address] [place] [address] PCP - General Internal Medicine 03/25/20 09/27/23 Luann Lawrence NP Nurse Practitioner Nurse Practitioner 01/06/19 Adarsh Tuttle MD [address] [facility] [address] [place] [address] Consulting Physician Gastroenterology 02/22/19 Sebastien Martinez DO [address] [address] Medical Oncologist/Engineering Model Maker Hematology and Oncology 02/22/19 Guru Winters DO [address] [place] [address] Consulting Physician Gastroenterology 02/22/19 Gato Abrams MD [address] [place] [address] Surgeon Surgical Oncology 09/07/19 Marina Rosales MD [facility]5 [facility] 500 [place], [place] [id number] Consulting Physician General Surgery 03/24/21 documented as of this encounter
--- OUTSIDE RECORDS SUMMARY | 2024-10-04 02:59 | XMS_ITS | Encounter Summary ---
Author Organization [facility] Address [address] [place] [address] Care Team Providers Care Marine Diver Name Role Phone Luann Lawrence NP Unavailable [phone] Adarsh Tuttle MD Unavailable [phone] Sebastien Martinez DO Unavailable [phone] Guru Winters DO Unavailable [phone] Gato Abrams MD Unavailable Elizabeth Borrego Primary Care Provider [phone] Marina Rosales MD Unavailable [phone] Reason for Visit * Episode Based Medications (Routine) - Closed Specialty Diagnoses / Procedures Referred By Clemencia mendez Referred To Contact Oncology Diagnoses Malignant carcinoid tumor of stomach (HCC) Procedures [place] OCTREOTIDE INJECTION, DEPOT Sebastien Martinez DO [facility] [address] Phone: tel: fax: [facility] Oncology [address] [address] Phone: tel: fax: Referral ID Status Reason Start Date Expiration Date Visits Re quested Visits Authorized [id number] Closed 2022 02/19/2023 1 50 Encounter Details Date Type Department Care Team (Late st Contact Info) Description 09/02/2022 9:45 AM WAIVER ANALYST Lab [facility] Lab [facility]8 [place] [address] Malignant carcinoid tumor of stomach (CMS/HCC) (HCC) [...] on file 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:22 AM WAIVER ANALYST Gender Identity Female 06/07/2020 8:39 AM CDT Sexual Orientation Not on file 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 Not on file Not on file documented as of this encounter Plan of Treatment Not on file documented as of this encounter Procedures Procedure Name Priority Date/Time Associated Diagnosis Comments EGFR Routine 09/02/2022 9:35 AM WAIVER ANALYST Malignant carcinoid tumor of stomach (CMS/HCC) (HCC) DIFFERENTIAL AUTO STAT 09/02/2022 9:3 5 AM WAIVER ANALYST Malignant carcinoid tumor of stomach (CMS/HCC) (HCC) CHROMOGRANIN A Routine 09/02/2022 9:35 AM WAIVER ANALYST Malignant carcinoid tumor of stomach (CMS/HCC) (HCC) CBC WITH AUTO DIFFERENTIAL STAT 09/02/2022 9:35 AM WAIVER ANALYST Malignant carcinoid tumor of stomach (CMS/HCC) (HCC) GASTRIN Routine 09/02/2022 9:35 AM WAIVER ANALYST Malignant carcinoid tumor of stomach (CMS/HCC) (HCC) COMPREHENSIVE METABOLIC PANEL Routine 09/02/2022 9:35 AM WAIVER ANALYST Malignant carcinoid tumor of stomach (CMS/HCC) (HCC) documented in this encounter Results * eGFR (09/02/2022 9:35 AM WAIVER ANALYST) eGFR 101 mL/min/1. 73 m2 ANDREA CASTILLO [...] of Race in Diagnosing Kidney Disease, JASN 202). The CKD-EPI equation should not be used for patients with unstable renal function and has not been validated in children and those over 70. Current interpretive data was last reviewed 2021. Testing performed by: [facility], [address] [place] [address], [place]., [address] Blood 09/02/2022 9:35 AM WAIVER ANALYST 09/02/2022 9:37 AM WAIVER ANALYST us Sebastien Martinez DO LAB BLOOD ORDERABLES Final R esult ANDREA [address] [facility] Department [place] [address] * Differential, auto (09/02/2022 9:35 AM WAIVER ANALYST) Neutrophil abs 2.8 1.7 - 6.5 K/cumm ANDREA Comment:Testing performed by : [address], [place]., [address] Lymphocyte abs 1.1 0.8 - 3.3 K/cumm ANDREA Comment:Testing performed by : [address] [address] Monocyte abs 0.3 0.2 - 0.8 K/cumm ANDREA Comment:Testing performed by : [address] [address] Eosinophil abs 0.1 0.0 - 0.5 K/cumm ANDREA Comment:Testing performed by : [address] [address] Basophil abs 0.1 0.0 - 0.1 K/cumm ANDREA Comment:Testing performed by : [address] [address] Neutrophil pct 63.7 % CERTAVO Comment: Interpretive Data Percent cell count reference ranges are not reported, since discordance with absolute values may lead to misinterpretation of CBC data. Current Interpretive Data was last revised on 2018. Testing performed by: [address] [address] Imm gran pct 0.2 % ANDREA Comment: Interpretive Data Percent cell count reference ranges are not reported, since discordance with absolute values may lead to misinterpretation of CBC data. Current Interpretive Data was last revised on 2018. Testing performed by: [address] [address] Lymphocyte pct 24.7 % CERNER Comment: Interpretive Data Percent cell count reference ranges are not reported, since discordance with absolute values may lead to misinterpretation of CBC data. Current Interpretive Data was last revised on 2018. Testing performed by: [address] [address] Monocyte pct 7.2 % CERTAVO Comment: Interpretive Data Percent cell count reference ranges are not reported, since discordance with absolute values may lead to misinterpretation of CBC data. Current Interpretive Data was last revised on 2018. Testing performed by: [address] [address] Eosinophil pct 2.9 % ANDREA Comment: Interpretive Data Percent cell count reference ranges are not reported, since discordance with absolute values may lead to misinterpretation of CBC data. Current Interpretive Data was last revised on 2018. Testing performed by: [address] [address] Basophil pct 1.3 % ANDREA Comment: Interpretive Data Percent cell count reference ranges are not reported, since discordance with absolute values may lead to misinterpretation of CBC data. Current Interpretive Data was last revised on 2018. Testing performed by: [address] [address] Blood 09/02/2022 9:35 AM WAIVER ANALYST 09/02/2022 9:37 AM WAIVER ANALYST us Sebastien Martinez DO LAB BLOOD ORDERABLES Final R esult ANDREA [address] [facility] Department [place] [address] * Chromogranin A (09/02/2022 9:35 AM WAIVER ANALYST) Chromogranin A 24 <93 ng/mL ANDREA Comment: ADDITIONAL INFORMATION This test was developed and its performance characteristics determined by [facility] in a manner consistent with CLIA [...] a homogeneous time-resolved immunofluorescent assay manufactured by [employer] and performed on the [employer] KrGOBAor Compact Plus. ? Values obtained with different assay methods or kits may be different and cannot be used interchangeably. ? Test results cannot be interpreted as absolute evidence for the presence or absence of malignant disease. Test Performed by: [place] [address] Environmental Health And Safety Manager: Bjorn Morris M.D. Ph.D.; CLIA# [id number] Testing performed by: [address] [address] Blood 09/02/2022 9:35 AM WAIVER ANALYST 09/02/2022 9:37 AM WAIVER ANALYST Sebastien Martinez LAB BLOOD ORDERABLES Final R esult Performing Organization Address [facility] de Phone Number [place] [address] [facility] [email or web address] [place], [place] [id number] * Gastrin (09/02/2022 9:35 AM WAIVER ANALYST) Gastrin <10 pg/mL ANDREA Comment: REFERENCE VALUE <100 Reference ranges valid for >= 8 hour fast. Test Performed by: [address] [address] Environmental Health And Safety Manager: Bjorn Morris M.D. Ph.D.; CLIA# [id number] Testing performed by: [address] [address] Blood 09/02/2022 9:35 AM WAIVER ANALYST 09/02/2022 9:37 AM WAIVER ANALYST Sebastien Martinez DO LAB BLOOD ORDERABLES Final R IngagePatientult Performing Organization Address [facility] de Phone Number ANDREA [facility] Department [place] [address] * CBC with auto differential (09/02/2022 9:35 AM WAIVER ANALYST) [facility] WBC 4.5 3.8 - 9.9 K/cumm ANDREA CASTILLO Comment:Testing performed by : [address] [address] Hgb 12.4 11.9 - 15.5 g/dL ANDREA Comment:Testing performed by : [address] [address] Hct 37.3 35.6 - 45.5 % ANDREA Comment:Testing performed by : [address] [address] Plt 284 150 - 400 K/cumm ANDREA Comment:Testing performed by : [address] [address] MPV 9.4 9.1 - 12.3 fL ANDREA Comment:Testing performed by : [address], [address] RBC 4.25 3.90 - 5.20 M/cumm ANDREA Comment:Testing performed by : [address] [address] MCV 87.8 81.3 - 96.4 fL ANDREA Comment:Testing performed by : [address] [address] MCH 29.2 27.1 - 33.3 pg ANDREA Comment:Testing performed by : [address] [address] MCHC 33.2 32.3 - 35.7 g/dL ANDREA Comment:Testing performed by : [address], [address] RDW CV 11.9 11.1 - 14.9 % ANDREA Comment:Testing performed by : [address] [address] RDW SD 37.8 35.7 - 48.1 fL ANDREA Comment:Testing performed by : [address], [address] Blood 09/02/2022 9:35 AM WAIVER ANALYST 09/02/2022 9:37 AM WAIVER ANALYST Sebastien Martinez DO LAB BLOOD ORDERABLES Final R esult ANDREA [address] [facility] Department [place] [address] * (ABNORMAL) Comprehensive metabolic panel (09/02/2022 9:35 AM WAIVER ANALYST) Sodium 140 135 - 145 mmol/L ANDREA Comment:Testing performed by : [address] [address] Potassium, pl 4.1 3.3 - 4.9 mmol/L ANDREA Comment:Testing performed by : [address] [address] Chloride 102 97 - 110 mmol/L ANDREA Comment:Testing performed by : [address] [address] CO2 28 22 - 32 mmol/L ANDREA Comment:Testing performed by : [address] [address] Anion gap 10 2 - 15 mmol/L ANDREA Comment:Testing performed by : [address] [address] BUN 15 8 - 25 mg/dL ANDREA Comment:Testing performed by : [address] [address] Creatinine 0.70 0.60 - 1.10 mg/dL ANDREA Comment:Testing performed by : [address] [address] Glucose 50(C) 70 - 199 mg/dL ANDREA Comment: Critical Result called to and read back by louise long, DATE: 2022-09-02 10:10:50 BY: [email or web address] Interpretive Data Fasting glucose >/= 126 mg/dl [...] was last revised 2017. Testing performed by: [address] [address] Calcium 9.5 8.5 - 10.3 mg/dL ANDREA Comment:Testing performed by : [address] [address] Bilirubin, total 0.4 0.1 - 1.2 mg/dL [facility]:Testing performed by : [address] [address] Protein, pl 7.9 6.5 - 8.5 g/dL ANDREA Comment:Testing performed by : [address] [address] Albumin 4.9 3.5 - 5.0 g/dL [facility] Comment:Testing performed by : [address] [address] Alk phos 72 40 - 130 Units/L [facility]:Testing performed by : [address] [address] ALT 23 7 - 45 Units/L [facility] Comment:Testing performed by : [address] [address] AST 24 10 - 45 Units/L [facility] Comment:Testing performed by : [address] [address] Blood 09/02/2022 9:35 AM WAIVER ANALYST 09/02/2022 9:37 AM WAIVER ANALYST us Sebastien Martinez DO LAB BLOOD ORDERABLES Final R esult ANDREA CASTILLO [address] [facility] Department of Laboratories [place], [place] [id number] documented in this encounter Visit Diagnoses Diagnosis Malignant carcinoid tumor of stomach (HCC) Malignant carcinoid tumor of the stomach documented in this encounter Orders Appointment Requests Count Last Ordered Date Fi rst Ordered Date ONCBCN LAB APPOINTMENT 1 09/02/2022 documented in this encounter Care Teams Marine Diver Relationship Specialty Start Date End Date Elizabeth Borrego PA [address] [place] [address] PCP - General Internal Medicine 03/25/20 09/27/23 Luann Lawrence, LACQUER POLISHER Nurse Practitioner Nurse Practitioner 01/06/19 Adarsh Tuttle MD [address] [facility] [address] [place] [address] Consulting Physician Gastroenterology 02/22/19 Sebastien Martinez DO [address] [place] [address] Medical Oncologist/Proposal Analyst Hematology and Oncology 02/22/19 Guru Winters DO [address] [place] [address] Consulting Physician Gastroenterology 02/22/19 Gato Abrams MD [address] [place] [address] Surgeon Surgical Oncology 09/07/19 Marina Rosales MD [address] [place] [address] Consulting Physician General Surgery 03/24/21 documented as of this encounter
--- OUTSIDE RECORDS SUMMARY | 2024-10-04 02:59 | XMS_ITS | Encounter Summary ---
Author Organization [facility] Address [address] [place] [address] Phone Care Team Providers Care Microbiology Instructor Name Role Phone MelindaLuann oh Aditya HEBERT Unavailable [phone] Adarsh Tuttle MD Unavailable [phone] Sebastien Martinez DO Unavailable [phone] Guru Winters DO Unavailable [phone] Gato Abrams MD Unavailable [phone] Elizabeth Borrego Primary Care Provider [phone] Marina Rosales MD Unavailable [phone] Reason for Visit * Episode Based Medications (Routine) - Closed Specialty Diagnoses / Procedures Referred By Contjimmy t Referred To Contact Oncology Diagnoses Malignant carcinoid tumor of stomach (HCC) Procedures [place] OCTREOTIDE INJECTION, DEPOT Sebastien Martinez, [facility] [address] Phone: tel: fax: [facility] Physicians [facility] Oncology [address] [address] Phone: tel: fax: Referral ID Status Reason Start Date Expiration Date Visits Re quested Visits Authorized [id number] Closed 2022 02/19/2023 1 50 Encounter Details Date Type Department Care Team (Late st Contact Info) Description 06/10/2022 8:[address] 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 Not on file documented as of this encounter Last Filed Vital Signs Vital Sign Reading Time Taken Comments Blood Pressure 123/76 06/10/2022 8:12 AM CDT Pulse 51 06/10/2022 8:12 AM CDT Temperature 36.8 ??C (98.2 ??F) 06/10/2022 8:12 AM CD T Respiratory Rate 18 06/10/2022 8:12 AM CDT Oxygen Saturation 98% 06/10/2022 8:12 AM CDT Inhaled Oxygen Concentration - - Weight 72.3 kg (159 lb 6.4 oz) 06/10/2022 8:12 A M CDT Height - - Body Mass Index 27.36 04/27/2022 8:26 AM CDT documented in this encounter Nursing Notes * Sunshine Richardson RN - 06/10/2022 8:15 AM CDT Oncology Nursing Note [facility] ON[facility] Fabiola Gibson is a 56 y.o. female who presents for the following injection: octreotide. Nursing Assessment Additional Notes: BP: 123/76 Pulse: 51 Resp: 18 SpO2: 98 % Weight: 72.3 kg (159 lb 6.4 oz) Patient: met treatment parameters Fabiola Gibson tolerated injection well Additional Notes: left buttock Discharge Plan Discharge instructions given to [...] 10 mg 10 mg, intramuscular, Once, On Wed06/10/22 at 0830, For 1 dose, Refrigerate. For IM intragluteal administration only- alternate gluteal sites. Shamir.Indications:Malignant carcinoid tumor of stomach (HCC) Given 06/10/2022 8:10 AM CDT 10 mg Left Dorsogluteal/Butt ock documented in this encounter Orders Appointment Requests Count Last Ordered Date Fi rst Ordered Date ONCBCN INJECTION APPOINTMENT REQUEST 1 05/19 documented in this encounter Care Teams Microbiology Instructor Relationship Specialty Start Date End Date Elizabeth Borrego PA [address] [facility] [address] [facility] [address] [place] [address] PCP - General Internal Medicine 03/25/20 09/27/23 Luann Lawrence NP Nurse Practitioner Nurse Practitioner 01/06/19 Adarsh Tuttle MD [address] [facility] [address] [place] [address] Consulting Physician Gastroenterology 02/22/19 Sebastien Martinez DO [address] [place] [address] Medical Oncologist/Casing Crew Hematology and Oncology 02/22/19 Guru Winters DO [address] [place] [address] Consulting Physician Gastroenterology 02/22/19 Gato Abrams MD [address] [place] [address] Surgeon Surgical Oncology 09/07/19 Marina Rosales MD [address] [place] [address] [address] [place] [address] Consulting Physician General Surgery 03/24/21 documented as of this encounter
--- OUTSIDE RECORDS SUMMARY | 2024-10-04 02:59 | XMS_ITS | Encounter Summary ---
Author Organization [facility] Address [address] [place] [address] Care Team Providers Care Balance Bridge Assembler Name Role Phone Luann Lawrence NP Unavailable [phone] Adarsh Tuttle MD Unavailable [phone] Sebastien Martinez DO Unavailable [phone] Guru Winters DO Unavailable [phone] Gato Abrams MD Unavailable [phone] Elizabeth Borrego Primary Care Provider [phone] Marina Rosales MD Unavailable [phone] Encounter Details Date Type Department Care Team (Late st Contact Info) Description 09/30/2022 10:00 AM RECONCILIATION SPECIALIST Lab [facility] [place] [facility] [address] [place] [address] Malignant carcinoid tumor of stomach (CMS/HCC) (HCC) [...] on file 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:22 AM RECONCILIATION SPECIALIST Gender Identity Female 06/07/2020 8:39 AM CDT Sexual Orientation Not on file 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 Not on file Not on file documented as of this encounter Plan of Treatment Not on file documented as of this encounter Procedures Procedure Name Priority Date/Time Associated Diagnosis Comments EGFR Routine 09/30/2022 9:52 AM RECONCILIATION SPECIALIST Malignant carcinoid tumor of stomach (CMS/HCC) (HCC) DIFFERENTIAL AUTO STAT 09/30/2022 9:5 2 AM RECONCILIATION SPECIALIST Malignant carcinoid tumor of stomach (CMS/HCC) (HCC) CHROMOGRANIN A Routine 09/30/2022 9:52 AM RECONCILIATION SPECIALIST Malignant carcinoid tumor of stomach (CMS/HCC) (HCC) CBC WITH AUTO DIFFERENTIAL STAT 09/30/2022 9:52 AM RECONCILIATION SPECIALIST Malignant carcinoid tumor of stomach (CMS/HCC) (HCC) GASTRIN Routine 09/30/2022 9:52 AM RECONCILIATION SPECIALIST Malignant carcinoid tumor of stomach (CMS/HCC) (HCC) COMPREHENSIVE METABOLIC PANEL Routine 09/30/2022 9:52 AM RECONCILIATION SPECIALIST Malignant carcinoid tumor of stomach (CMS/HCC) (HCC) documented in this encounter Results * eGFR (09/30/2022 9:52 AM RECONCILIATION SPECIALIST) eGFR 105 mL/min/1. 73 m2 ANDREA CASTILLO Comment: Interpretive [...] was last reviewed 2021. Testing performed by: [address] [address] Blood 09/30/2022 9:52 AM RECONCILIATION SPECIALIST 09/30/2022 9:53 AM RECONCILIATION SPECIALIST us Sebastien Martinez DO LAB BLOOD ORDERABLES Final R esult ANDREA [address] [facility] Department [place] [address] * Differential, auto (09/30/2022 9:52 AM RECONCILIATION SPECIALIST) Neutrophil abs 2.5 1.7 - 6.5 K/cumm ANDREA CASTILLO Comment:Testing performed by : [address] [address] Lymphocyte abs 1.0 0.8 - 3.3 K/cumm ANDREA CASTILLO Comment:Testing performed by : [address] [address] Monocyte abs 0.2 0.2 - 0.8 K/cumm ANDREA Comment:Testing performed by : [address] [address] Eosinophil abs 0.2 0.0 - 0.5 K/cumm ANDREA Comment:Testing performed by : [address] [address] Neutrophil pct 62.8 % ANDREA Comment: Interpretive Data Percent cell count reference ranges are not reported, since discordance with absolute values may lead to misinterpretation of CBC data. Current Interpretive Data was last revised on 2018. Testing performed by: [address] [address] Imm gran pct 0.3 % ANDREA Comment: Interpretive Data Percent cell count reference ranges are not reported, since discordance with absolute values may lead to misinterpretation of CBC data. Current Interpretive Data was last revised on 2018. Testing performed by: [address] [address] Lymphocyte pct 25.9 % ANDREA Comment: Interpretive Data Percent cell count reference ranges are not reported, since discordance with absolute values may lead to misinterpretation of CBC data. Current Interpretive Data was last revised on 2018. Testing performed by: [address] [address] Monocyte pct 6.0 % ANDREA Comment: Interpretive Data Percent cell count reference ranges are not reported, since discordance with absolute values may lead to misinterpretation of CBC data. Current Interpretive Data was last revised on 2018. Testing performed by: [address] [address] Eosinophil pct 4.0 % ANDREA Comment: Interpretive Data Percent cell count reference ranges are not reported, since discordance with absolute values may lead to misinterpretation of CBC data. Current Interpretive Data was last revised on 2018. Testing performed by: [address] [address] Basophil pct 1.0 % [facility] Comment: Interpretive Data Percent cell count reference ranges are not reported, since discordance with absolute values may lead to misinterpretation of CBC data. Current Interpretive Data was last revised on 2018. Testing performed by: [address] [address] Blood 09/30/2022 9:52 AM RECONCILIATION SPECIALIST 09/30/2022 9:53 AM RECONCILIATION SPECIALIST Sebastien Martinez DO LAB BLOOD ORDERABLES Final R isma Performing Organization Address [facility] Co de Phone Number ANDREA CASTILLO [address] [facility] Department [place] [address] * Chromogranin A (09/30/2022 9:52 AM RECONCILIATION SPECIALIST) Chromogranin A 30 <93 ng/mL ANDREA CASTILLO Comment: ADDITIONAL INFORMATION [...] a homogeneous time-resolved immunofluorescent assay manufactured by [employer] and performed on the [employer]io Kryptor Compact Plus. ? Values obtained with different assay methods or kits may be different and cannot be used interchangeably. ? Test results cannot be interpreted as absolute evidence for the presence or absence of malignant disease. Test Performed by: [facility] [address] [place] [address] [employer] Reservoir Keeper: Bjorn Morris M.D. Ph.D.; CLIA# [id number] Testing performed by: [facility], [address] [place] [address]., [address] Blood 09/30/2022 9:52 AM RECONCILIATION SPECIALIST 09/30/2022 9:53 AM RECONCILIATION SPECIALIST Sebastien Martinez DO LAB BLOOD ORDERABLES Final R isma Performing Organization Address [facility]/ZIP Co de Phone Number ANDREA [address] [place] [address] * Gastrin (09/30/2022 9:52 AM RECONCILIATION SPECIALIST) [facility] Gastrin <10 pg/mL ANDREA Comment: REFERENCE VALUE <100 Reference ranges valid for >= 8 hour fast. Test Performed by: [facility] [address] [place] [address] [employer] Keeper: Bjorn Morris M.D. Ph.D.; CLIA# [id number] Testing performed by: [address] [address] Blood 09/30/2022 9:52 AM RECONCILIATION SPECIALIST 09/30/2022 9:53 AM RECONCILIATION SPECIALIST Sebastien Martinez DO LAB BLOOD ORDERABLES Final R esult Performing Organization Address [facility] de Phone Number ANDREA [address] [place] [address] * (ABNORMAL) CBC with auto differential (09/30/2022 9:52 AM RECONCILIATION SPECIALIST) [facility] WBC 4.0 3.8 - 9.9 K/cumm ANDREA Comment:Testing performed by : [address] [address] Hgb 11.6(L) 11.9 - 15.5 g/dL ANDREA Comment:Testing performed by : [address] [address] Hct 35.4(L) 35.6 - 45.5 % ANDREA CASTILLO Comment:Testing performed by : [address] [address] Plt 222 150 - 400 K/cumm ANDREA Comment:Testing performed by : [address] [address] MPV 9.6 9.1 - 12.3 fL ANDREA CASTILLO Comment:Testing performed by : [address] [address] RBC 4.05 3.90 - 5.20 M/cumm ANDREA CASTILLO Comment:Testing performed by : [address] [address] MCV 87.4 81.3 - 96.4 fL ANDREA CASTILLO Comment:Testing performed by : [address] [address] MCH 28.6 27.1 - 33.3 pg ANDREA CASTILLO Comment:Testing performed by : [address] [address] MCHC 32.8 32.3 - 35.7 g/dL ANDREA CASTILLO Comment:Testing performed by : [address] [address] RDW CV 11.9 11.1 - 14.9 % ANDREA CASTILLO Comment:Testing performed by : [address] [address] RDW SD 38.5 35.7 - 48.1 fL ANDREA Comment:Testing performed by : [address] [address] Blood 09/30/2022 9:52 AM RECONCILIATION SPECIALIST 09/30/2022 9:53 AM RECONCILIATION SPECIALIST Sebastien Martinez DO LAB BLOOD ORDERABLES Final R esult ANDREA [address] [facility] Department of Laboratories [place], [place] [id number] * Comprehensive metabolic panel (09/30/2022 9:52 AM RECONCILIATION SPECIALIST) Sodium 141 135 - 145 mmol/L ANDREA CASTILLO Comment:Testing performed by : [address] [address] Potassium, pl 4.4 3.3 - 4.9 mmol/L ANDREA CASTILLO Comment:Testing performed by : [address] [address] Chloride 106 97 - 110 mmol/L ANDREA Comment:Testing performed by : [address] [address] CO2 27 22 - 32 mmol/L ANDREA Comment:Testing performed by : [address] [address] Anion gap 8 2 - 15 mmol/L ANDREA Comment:Testing performed by : [address] [address] BUN 16 8 - 25 mg/dL ANDREA Comment:Testing performed by : [address], [place]., [address] Creatinine 0.60 0.60 - 1.10 mg/dL ANDREA Comment:Testing performed by : [address] [address] Glucose 117 70 - 199 mg/dL ANDREA Comment: Interpretive [...] was last revised 2017. Testing performed by: [address] [address] Calcium 9.3 8.5 - 10.3 mg/dL ANDREA Comment:Testing performed by : [address] [address] Bilirubin, total 0.4 0.1 - 1.2 mg/dL ANDREA Comment:Testing performed by : [address] [address] Protein, pl 6.9 6.5 - 8.5 g/dL ANDREA Comment:Testing performed by : [address] [address] Albumin 4.4 3.5 - 5.0 g/dL ANDREA Comment:Testing performed by : [facility], [address] [place] [address]., [address] Alk phos 64 40 - 130 Units/L ANDREA Comment:Testing performed by : [address] [address] ALT 27 7 - 45 Units/L ANDREA Comment:Testing performed by : [facility], [address] [place] [address]., [address] AST 27 10 - 45 Units/L ANDREA Comment:Testing performed by : [facility], [address] [place] [address]., [address] Blood 09/30/2022 9:52 AM RECONCILIATION SPECIALIST 09/30/2022 9:53 AM RECONCILIATION SPECIALIST Sebastien Martinez DO LAB BLOOD ORDERABLES Final R esult Performing Organization Address City/State/[facility] Co de Phone Number ANDREA [address] [facility] Department [place] [address] documented in this encounter Visit Diagnoses Diagnosis Malignant carcinoid tumor of stomach (HCC) Malignant carcinoid tumor of the stomach documented in this encounter Care Teams Balance Bridge Assembler Relationship Specialty Start Date End Date Elizabeth Borrego PA [address] [facility] 500 [place] [address] PCP - General Internal Medicine 03/25/20 09/27/23 Luann Lawrence NP Nurse Practitioner Nurse Practitioner 01/06/19 Adarsh Tuttle MD [address] [facility] [address] [place] [address] Consulting Physician Gastroenterology 02/22/19 Sebastien Martinez DO 14[address] [facility] [address] [place] [address] Medical Oncologist/Jacquard Loom Card Changer Hematology and Oncology 02/22/19 Guru Winters DO [facility] [address] Consulting Physician Gastroenterology 02/22/19 Gato Abrams MD [address] [place] [address] Surgeon Surgical Oncology 09/07/19 Marina Rosales MD 10[address] [facility] 500 [place], [place] [id number] Consulting Physician General Surgery 03/24/21 documented as of this encounter
--- OUTSIDE RECORDS SUMMARY | 2024-10-04 02:59 | XMS_ITS | Encounter Summary ---
Author Organization [facility] Address [address] [facility] [address] [place] [address] Phone Care Team Providers Care National Secretary Name Role Phone MelindaLuann oh ANUP Unavailable [phone] Adarsh Tuttle MD Unavailable [phone] Sebastien Martinez DO Unavailable Guru Winters DO Unavailable [phone] Gato Abrams MD Unavailable [phone] Elizabeth Borrego Primary Care Provider [phone] Marina Rosales MD Unavailable [phone] Reason for Referral * Diagnostic Imaging (Routine) - Closed Specialty Diagnoses / Procedures Referred By Contac t Referred To Contact Radiology Diagnoses Neuroendocrine tumor Procedures CT Abdomen Pelvis W WO Contrast Gato Abrams MD [address] [facility] [id number] [place] [address] Phone: tel: fax: [address] [address] Referral ID Status Reason Start Date Expiration Date Visits Re quested Visits Authorized [id number] Closed 06/11/2022 07/11/2023 1 1 Encounter Details Date Type Department Care Team (Late st Contact Info) Description 06/11/2022 Orders Only [facility] Surgery [address] [facility] 5th [place] [address] [place] [address] Gato Abrams MD [address] [facility] [id number] [place] [address] Neuroendocrine tumor (Primary Dx) Social History Tobacco Use Types [...] on file 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 Gender Identity Female 06/07/2020 8:39 AM CDT Sexual Orientation Not on file 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 Not on file Not on file documented as of this encounter Plan of Treatment Not on file documented as of this encounter Results * CT Abdomen Pelvis [...] in this encounter Visit Diagnoses Diagnosis Neuroendocrine tumor- Primary Benign carcinoid tumor of unknown primary site Neuroendocrine tumor Benign carcinoid tumor of unknown primary site documented in this encounter Care Teams National Secretary Relationship Specialty Start Date End Date Elizabeth Borrego PA [address] [facility] [address] [facility] [address] [place] [address] PCP - General Internal Medicine 03/25/20 09/27/23 Luann Lawrence NP Nurse Practitioner Nurse Practitioner 01/06/19 Adarsh Tuttle MD [address] [facility] [address] [place] [address] Consulting Physician Gastroenterology 02/22/19 Sebastien Martinez DO [address] [place] [address] Medical Oncologist/Fruit Canner Hematology and Oncology 02/22/19 Guru Winters DO [address] [place] [address] Consulting Physician Gastroenterology 02/22/19 Gato Abrams MD [address] [place] [address] Surgeon Surgical Oncology 09/07/19 Marina Rosales MD [address] [facility] [address] [place] [address] Consulting Physician General Surgery 03/24/21 documented as of this encounter
--- OUTSIDE RECORDS SUMMARY | 2024-10-04 02:59 | XMS_ITS | Encounter Summary ---
Author Organization [facility] Address [address] [place] [address] Phone Care Team Providers Care Scalp Treatment Specialist Name Role Phone Luann Lawrence ANUP Unavailable [phone] Adarsh Tuttle MD Unavailable [phone] Sebastien Martinez DO Unavailable [phone] Guru Winters DO Unavailable [phone] Gato Abrams MD Unavailable [phone] Elizabeth Borrego Primary Care Provider [phone] Marina Rosales MD Unavailable [phone] Encounter Details Date Type Department Care Team (Late st Contact Info) Description 05/12/2022 Orders Only 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 Not on file Not on file documented as of this encounter Plan of Treatment Not on file documented as of this encounter Visit Diagnoses Diagnosis Malignant carcinoid tumor of stomach (HCC)- Primary Malignant carcinoid tumor of the stomach documented in this encounter Care Teams Scalp Treatment Specialist Relationship Specialty Start Date End Date Elizabeth Borrego PA [address] [facility] 500 [place], [place] [id number] PCP - General Internal Medicine 03/25/20 09/27/23 Luann Lawrence NP Nurse Practitioner Nurse Practitioner 01/06/19 Adarsh Tuttle MD [address] [facility] 210 [place] [address] Consulting Physician Gastroenterology 02/22/19 Sebastien Martinez DO [address] [place] [id number] Medical Oncologist/Distribution Driver Hematology and Oncology 02/22/19 Guru Winters DO [address] [place] [address] Consulting Physician Gastroenterology 02/22/19 Gato Abrams MD [address] [place] [address] Surgeon Surgical Oncology 09/07/19 Marina Rosales MD [address] [place] [address] 500 [place] [address] Consulting Physician General Surgery 03/24/21 documented as of this encounter
--- OUTSIDE RECORDS SUMMARY | 2024-10-04 02:59 | XMS_ITS | Encounter Summary ---
Author Organization [facility] Address [address] [place] [address] Care Team Providers Care Licsw Name Role Phone Luann Lawrence NP Unavailable [phone] Adarsh Tuttle MD Unavailable Sebastien Martinez DO Unavailable [phone] Guru Winters DO Unavailable Gato Abrams MD Unavailable Elizabeth Borrego Primary Care Provider [phone] Marina Rosales MD Unavailable [phone] Reason for Referral * MRI/CAT/PET Scan (Routine) - Closed Specialty Diagnoses / Procedures Referred By Clemencia mendez Referred To Contact Radiology Diagnoses Malignant carcinoid tumor of stomach (HCC) Procedures PET/CT Dotatate Skull to Thigh Sebastien Martinez DO [address] [address] Phone: tel: fax: [address] [phone] Referral ID Status Reason Start Date Expiration Date Visits Re quested Visits Authorized [id number] Closed 04/15/2022 05/15/2023 2 2 Reason for Visit * MRI/CAT/PET Scan (Routine) - Closed Specialty Diagnoses / Procedures Referred By Clemencia mendez Referred To Contact Radiology Diagnoses Malignant carcinoid tumor of stomach (HCC) Procedures PET/[place]at[place] [address] [place] [address] Phone: tel: fax: [address] [phone] Referral ID Status Reason Start Date Expiration Date Visits Re quested Visits Authorized [id number] Closed 04/15/2022 05/15/2023 2 2 Encounter Details Date Type Department Care Team (Latest Contact Info) Description 07/06/2022 8:13 AM CDT - 07/06/2022 11:59 PM CDT Hospital Encounter [facility] [address] [place] [id number] Malignant carcinoid tumor of stomach (CMS/HCC) [...] on file 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 Gender Identity Female 06/07/2020 8:39 AM CDT Sexual Orientation Not on file 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 Not on file Not on file documented as of this encounter Medications at Time of Discharge cholecalciferol (VITAMIN D-3) 1,000 unit capsuleIndicati ons:Vitamin D Deficiency Take 2 capsules (2,000 Units total) by mouth wooden tank erector before breakfast buPROPion XL (WELLBUTRIN XL) 150 [...] 1 tablet (200 mg total) by mouth wooden tank erector before breakfast 01/30/2019 09/30/20 23 multivitamin capsuleIndicati ons:Vitamin Deficiency Prevention Take 1 capsule by mouth wooden tank erector before breakfast 04/14/20 24 octreotide (SandoSTATIN) 100 [...] Procedure Name Priority Date/Time Associated Diagnosis Comments PET/CT GA-68 DOTATATE SKULL TO THIGH Schedule Routine, Read Routine (OP Routine) 07/06/2022 10:02 AM CDT Malignant carcinoid tumor of stomach (CMS/HCC) (HCC) documented in this encounter Results * PET/CT Dotatate Skull to Thigh (07/06/2022 10:02 AM CDT) Anatomical Region Laterality Modality Positron Emissio n Tomography (PET) 07/06/2022 3:03 PM CDT Narrative 07/06/2022 4:45 PM CDT EXAM DESCRIPTION: ?? PET/CT DOTATATE SKULL TO THIGH RADIOPHARMACEUTICAL: ?? 4.4 ??mCi copper 64 Dotatate via a ?? left antecubital vein ??IV site REASON FOR STUDY: ?? Malignant carcinoid tumor of the stomach, subsequent treatment strategy. ??Last octreotide therapy 06/10/2022. ??Prior partial gastrectomy. TECHNIQUE: After intravenous administration of Dotatate, noncontrast CT images were obtained for attenuation correction and for fusion with emission PET images to allow for anatomical localization of PET findings. ??Emission PET images were then obtained. The area imaged spanned the region from the ??skull base ??to the ?? proximal thighs . ??The time from injection to start of imaging was ?? 59 ??minutes. COMPARISON: ?? Gallium 68 Dotatate 03/26/2020, CT abdomen and pelvis 03/30/2022, 10/06/2021 , 02/22/2020 FINDINGS: For reference, the maximum SUV of the ascending thoracic aorta is ??1.3 . ??The maximum SUV of the liver is ??8.2 . Head: No abnormal uptake identified. ??Physiologic uptake within the pituitary gland. Neck: Physiologic uptake noted within the salivary glands. ??No abnormal lymph node uptake. Chest: No abnormal uptake within the mediastinal or hilar lymph nodes minimal uptake within nonenlarged left axillary lymph nodes is felt to be reactive. ? Ground-glass nodule measuring 5 mm in the lateral right lower lobe is unchanged from 2019 and shows no abnormal uptake. ? Heart size is within normal limits. ??No significant coronary artery calcification or pericardial effusion. ??No pleural effusion. Abdomen and Pelvis: No abnormal liver uptake. ?The gallbladder is unremarkable. ?The spleen is normal. ?? There is focal uptake within the uncinate process of the pancreas with an SUV of 29.5 compared to 15.6 previously. ??There is linear physiologic uptake within the uncinate process of pancreas. ?Physiologic uptake within the adrenal glands. ??No adrenal mass. ?Normal genitourinary activity. ?? The bladder is decompressed and incompletely evaluated. ?? Postsurgical change from partial gastrectomy and gastrojejunostomy without associated abnormal activity. ?No abnormal lymph nodes with increased uptake. ? Bones: No acute or aggressive appearing osseous lesions. ?? IMPRESSION: ?? 1. ?? Focal uptake within the uncinate [...] gastrectomy and gastrojejunostomy without associated abnormal activity. THIS IS AN ELECTRONICALLY VERIFIED FINAL REPORT 07/06/2022 4:45 PM - Electronically signed by ??Abdiel Tidwell M.D. LB: AKIRA D: ??07/06/2022 4:45 PM T: ??07/06/2022 4:45 PM Report ID: [id number] Reading Location: ??[id number] Procedure Note Abdiel Tidwell MD - 07/06/2022 EXAM DESCRIPTION: PET/CT DOTATATE SKULL TO THIGH RADIOPHARMACEUTICAL: 4.4 mCi copper 64 Dotatate via a leftantecubital vein IV site REASON FOR STUDY: Malignant carcinoid tumor of the stomach, subsequent treatment strategy. Last octreotide therapy 06/10/2022. Prior partial gastrectomy. TECHNIQUE: After intravenous administration of Dotatate, noncontrast CTimages were obtained for attenuation correction and for fusion with emission PET images to allow for anatomical localization of PET findings. Emission PET images were then obtained. The area imaged spanned the region from theskull base to the proximal thighs . The time from injection to start ofimaging was 59 minutes. COMPARISON: Gallium 68 Dotatate 03/26/2020, CT abdomen and pelvis 03/30/2022, 10/06/2021 , 02/22/2020 FINDINGS: For reference, the maximum SUV of the ascending thoracic aorta is 1.3 .The maximum SUV of the liver is 8.2 . Head: No abnormal uptake identified. Physiologic uptake within the pituitarygland. Neck: Physiologic uptake noted within the salivary glands. No abnormal lymphnode uptake. Chest: No abnormal uptake within the mediastinal or hilar lymph nodes minimaluptake within nonenlarged left axillary lymph nodes is felt to be reactive. Ground-glass nodule measuring 5 mm in the lateral right lower lobe is unchanged from 2020 and shows no abnormal uptake. Heart size is within normal limits. No significant coronary artery calcification or pericardial effusion. No pleural effusion. Abdomen and Pelvis: No abnormal liver uptake. The gallbladder is unremarkable. Thespleen is normal. There is focal uptake within the uncinate process of thepancreas with an SUV of 29.5 compared to 15.6 previously. There is linearphysiologic uptake within the uncinate process of pancreas. Physiologic uptakewithin the adrenal glands. No adrenal mass. Normal genitourinary activity.The bladder is decompressed and incompletely evaluated. Postsurgical changefrom partial gastrectomy and gastrojejunostomy without associated abnormal activity. No abnormal lymph nodes with increased uptake. Bones: No acute or aggressive appearing osseous lesions. IMPRESSION: 1. Focal uptake within the uncinate process of the pancreas, likelyrelated to residual neuroendocrine tumor. There is separate, normal physiologic curvilinear uptake within the uncinate process. 2. No evidence of distant metastatic disease. 3. Ground-glass nodule in the right lower lobe is unchanged from 2020and shows no abnormal uptake. 4. Ground-glass nodule measuring 5 mm in the right lower lobe isunchanged from 2020 and shows no abnormal uptake. Continued attention on follow-up imaging is recommended. 5. Prior partial gastrectomy and gastrojejunostomy without associated abnormal activity. THIS IS AN ELECTRONICALLY VERIFIED FINAL REPORT 07/06/2022 4:45 PM - Electronically signed by Abdiel Tidwell M.D. LB: AKIRA Report ID: [id number] Reading Location: [id number] Sebastien Martinez DO IMG PET PROCEDURES Final Res ult documented in this encounter Visit Diagnoses Diagnosis Malignant carcinoid tumor of stomach (HCC) Malignant carcinoid tumor of the stomach documented in this encounter Administered Medications Inactive Administered Medications - up to 3 most recent administrations Medication Order MAR Action Action Date Dose Rate Site Cu-64 Dotatate (DETECTNET) injection 4.4 millicurie 4.4 millicurie, intravenous, Once in imaging, radiopharmaceutical, Starting on Wed07/06/22 at 0828, For 1 dose Given 07/06/2022 8:28 AM CDT 4.4 millicuries documented in this encounter Care Teams Licsw Relationship Specialty Start Date End Date Elizabeth Borrego PA [address] [facility] [address] [place], [place] [id number] PCP - General Internal Medicine 03/25/20 09/27/23 Luann Lawrence, ANUP Nurse Practitioner Nurse Practitioner 01/06/19 Adarsh Tuttle MD [address] [facility] [address] [place] [address] Consulting Physician Gastroenterology 02/22/19 Sebastien Martinez DO [address] [place] [phone] Medical Oncologist/Director Of Psychiatry Hematology and Oncology 02/22/19 Guru Winters DO [address] [place] [phone] Consulting Physician Gastroenterology 02/22/19 Gato Abrams MD [address] [place] [address] [phone] Surgeon Surgical Oncology 09/07/19 Marina Rosales MD [address] [place] [address] Consulting Physician General Surgery 03/24/21 documented as of this encounter
--- OUTSIDE RECORDS SUMMARY | 2024-10-04 02:59 | XMS_ITS | Encounter Summary ---
Author Organization [facility] Address [address] [place] [address] Phone Care Team Providers Care Offset Machine Operator Name Role Phone Luann Lawrence ANUP Unavailable [phone] Adarsh Tuttle MD Unavailable [phone] Sebastien Martinez DO Unavailable [phone] Guru Winters DO Unavailable [phone] Gato Abrams MD Unavailable [phone] Elizabeth Borrego Primary Care Provider [phone] Marina Rosales MD Unavailable [phone] Encounter Details Date Type Department Care Team (Late st Contact Info) Description 09/01/2022 Orders Only [facility] Physicians [facility] Oncology [address] [facility] [address] [place] [phone] Sebastien Martinez DO [address] [facility] [address] [place] [address] Malignant carcinoid tumor of stomach (CMS/HCC) [...] file 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 Gender Identity Female 06/07/2020 8:39 AM CDT [...] stomach documented in this encounter Care Teams Offset Machine Operator Relationship Specialty Start Date End Date Elizabeth Borrego PA [address] [facility] [address] [place], [place] [phone] PCP - General Internal Medicine 03/25/20 09/27/23 Luann Lawrence NP Nurse Practitioner Nurse Practitioner 01/06/19 Adarsh Tuttle MD [address] [facility] [address] [place] [address] Consulting Physician Gastroenterology 02/22/19 Sebastien Martinez DO [address] [place] [address] [phone] Medical Oncologist/Optometry Professor Hematology and Oncology 02/22/19 Guru Winters DO [address] [place] [address] Consulting Physician Gastroenterology 02/22/19 Gato Abrams MD [address] [place] [address] Surgeon Surgical Oncology 09/07/19 Marina Rosales MD [address] [place] [address] [address] [place] [address] Consulting Physician General Surgery 03/24/21 documented as of this encounter
--- OUTSIDE RECORDS SUMMARY | 2024-10-04 02:59 | XMS_ITS | Encounter Summary ---
Author Organization [facility] Address [address] [place] [address] Care Team Providers Care Designer And Patternmaker Name Role Phone Luann Lawrence NP Unavailable [phone] Adarsh Tuttle MD Unavailable [phone] Sebastien Martinez DO Unavailable [phone] Guru Winters DO Unavailable Gato Abrams MD Unavailable Elizabeth Borrego Primary Care Provider [phone] Marina Rosales MD Unavailable [phone] Reason for Visit * Episode Based Medications (Routine) - Closed Specialty Diagnoses / Procedures Referred By Clemencia mendez Referred To Contact Oncology Diagnoses Malignant carcinoid tumor of stomach (HCC) Procedures [place] OCTREOTIDE INJECTION, DEPOT Sebastien Martinez DO [facility] [address] Phone: tel: fax: [facility] Oncology [address] [address] Phone: tel: fax: Referral ID Status Reason Start Date Expiration Date Visits Re quested Visits Authorized [id number] Closed 2022 02/19/2023 1 50 Encounter Details Date Type Department Care Team (Late st Contact Info) Description 08/05/2022 10:00 AM CDT Lab [facility] Lab [facility] [place] [address] Malignant carcinoid tumor of stomach (CMS/HCC) (HCC) [...] on file 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 Gender Identity Female 06/07/2020 8:39 AM CDT Sexual Orientation Not on file 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 file Not on file documented as of this encounter Plan of Treatment Not on file documented as of this encounter Procedures Procedure Name Priority Date/Time Associated Diagnosis Comments EGFR Routine 08/05/2022 10:12 AM CDT Malignant carcinoid tumor of stomach (CMS/HCC) (HCC) DIFFERENTIAL AUTO STAT 08/05/2022 10: 12 AM CDT Malignant carcinoid tumor of stomach (CMS/HCC) (HCC) CHROMOGRANIN A Routine 08/05/2022 10:12 AM CDT Malignant carcinoid tumor of stomach (CMS/HCC) (HCC) CBC WITH AUTO DIFFERENTIAL STAT 08/05/2022 10:12 AM CDT Malignant carcinoid tumor of stomach (CMS/HCC) (HCC) GASTRIN Routine 08/05/2022 10:12 AM CDT Malignant carcinoid tumor of stomach (CMS/HCC) (HCC) COMPREHENSIVE METABOLIC PANEL Routine 08/05/2022 10:12 AM CDT Malignant carcinoid tumor of stomach (CMS/HCC) (HCC) documented in this encounter Results * eGFR (08/05/2022 10:12 AM CDT) eGFR 101 mL/min/1. 73 m2 ANDREA CASTILLO [...] was last reviewed 2021. Testing performed by: [facility], [address] [place] [address], [place]., [address] Blood 08/05/2022 10:1 2 AM CDT 08/05/2022 10:14 AM CDT us Sebastien Martinez DO LAB BLOOD ORDERABLES Final R esult ANDREA CASTILLO [address] [facility] [place] [address] * Differential, auto (08/05/2022 10:12 AM CDT) Neutrophil abs 1.7 1.7 - 6.5 K/cumm ANDREA Comment:Testing performed by : [address] [address] Lymphocyte abs 1.0 0.8 - 3.3 K/cumm ANDREA Comment:Testing performed by : [address] [address] Monocyte abs 0.3 0.2 - 0.8 K/cumm ANDREA Comment:Testing performed by : [address] [address] Eosinophil abs 0.1 0.0 - 0.5 K/cumm ANDREA Comment:Testing performed by : [address] [address] Basophil abs 0.1 0.0 - 0.1 K/cumm ANDREA Comment:Testing performed by : [address] [address] Neutrophil pct 54.8 % [facility] Comment: Interpretive Data Percent cell count reference ranges are not reported, since discordance with absolute values may lead to misinterpretation of CBC data. Current Interpretive Data was last revised on 2018. Testing performed by: [address] [address] Imm gran pct 0.3 % ANDREA Comment: Interpretive Data Percent cell count reference ranges are not reported, since discordance with absolute values may lead to misinterpretation of CBC data. Current Interpretive Data was last revised on 2018. Testing performed by: [address] [address] Lymphocyte pct 31.2 % [facility] Comment: Interpretive Data Percent cell count reference ranges are not reported, since discordance with absolute values may lead to misinterpretation of CBC data. Current Interpretive Data was last revised on 2018. Testing performed by: [address] [address] Monocyte pct 9.2 % [facility] CASTILLO Comment: Interpretive Data Percent cell count reference ranges are not reported, since discordance with absolute values may lead to misinterpretation of CBC data. Current Interpretive Data was last revised on 2018. Testing performed by: [address] [address] Eosinophil pct 2.9 % ANDREA CASTILLO Comment: Interpretive Data Percent cell count reference ranges are not reported, since discordance with absolute values may lead to misinterpretation of CBC data. Current Interpretive Data was last revised on 2018. Testing performed by: [address] [address] Basophil pct 1.6 % ANDREA CASTILLO Comment: Interpretive Data Percent cell count reference ranges are not reported, since discordance with absolute values may lead to misinterpretation of CBC data. Current Interpretive Data was last revised on 2018. Testing performed by: [address] [address] Blood 08/05/2022 10:1 2 AM CDT 08/05/2022 10:14 AM CDT us Sebastien Martinez DO LAB BLOOD ORDERABLES Final R esult ANDREA CASTILLO [address] [facility] Department [place] [address] * Chromogranin A (08/05/2022 10:12 AM CDT) Chromogranin A 24 <93 ng/mL ANDREA CASTILLO Comment: ADDITIONAL INFORMATION This test was developed and its performance characteristics determined by [facility] in a manner consistent with CLIA requirements. [...] a homogeneous time-resolved immunofluorescent assay manufactured by [employer] and performed on the [employer] Krtime[employer] Compact Plus. ? Values obtained with different assay methods or kits may be different and cannot be used interchangeably. ? Test results cannot be interpreted as absolute evidence for the presence or absence of malignant disease. Test Performed by: [place] [address] Disposition Clerk: Bjorn Morris M.D. Ph.D.; CLIA# [id number] Testing performed by: [address] [address] Blood 08/05/2022 10:1 2 AM CDT 08/05/2022 10:14 AM CDT Sebastien Martinez DO LAB BLOOD ORDERABLES Final R esult ANDREA [address] [facility] Department of Laboratories [place], [place] [id number] * Gastrin (08/05/2022 10:12 AM CDT) [facility] Signature Gastrin <10 pg/mL ANDREA Comment: REFERENCE VALUE <100 Reference ranges valid for >= 8 hour fast. Test Performed by: [address] [address] Disposition Clerk: Bjorn Morris M.D. Ph.D.; CLIA# [id number] Testing performed by: [address] [address] Blood 08/05/2022 10:1 2 AM CDT 08/05/2022 10:14 AM CDT Sebastien L. Michelle DO LAB BLOOD ORDERABLES Final R esult [facility] [address] [facility] Department [place] [address] * (ABNORMAL) CBC with auto differential (08/05/2022 10:12 AM CDT) WBC 3.1(L) 3.8 - 9.9 K/cumm ANDREA Comment:Testing performed by : [address] [address] Hgb 12.4 11.9 - 15.5 g/dL ANDREA Comment:Testing performed by : [address] [address] Hct 37.3 35.6 - 45.5 % ANDREA Comment:Testing performed by : [address] [address] Plt 240 150 - 400 K/cumm ANDREA Comment:Testing performed by : [address] [address] MPV 9.5 9.1 - 12.3 fL ANDREA Comment:Testing performed by : [address], [address] RBC 4.20 3.90 - 5.20 M/cumm ANDREA Comment:Testing performed by : [address] [address] MCV 88.8 81.3 - 96.4 fL ANDREA Comment:Testing performed by : [address] [address] MCH 29.5 27.1 - 33.3 pg ANDREA Comment:Testing performed by : [address] [address] MCHC 33.2 32.3 - 35.7 g/dL ANDREA Comment:Testing performed by : [address] [address] RDW CV 12.0 11.1 - 14.9 % ANDREA Comment:Testing performed by : [address], [address] RDW SD 38.8 35.7 - 48.1 fL ANDREA Comment:Testing performed by : [address] [address] Blood 08/05/2022 10:1 2 AM CDT 08/05/2022 10:14 AM CDT Sebastien Martinez DO LAB BLOOD ORDERABLES Final R esult ANDREA 0449 [facility] Department [place] [address] * Comprehensive metabolic panel (08/05/2022 10:12 AM CDT) Sodium 138 135 - 145 mmol/L ANDREA Comment:Testing performed by : [address] [address] Potassium, pl 4.3 3.3 - 4.9 mmol/L ANDREA Comment:Testing performed by : [address] [address] Chloride 101 97 - 110 mmol/L ANDREA Comment:Testing performed by : [address] [address] CO2 31 22 - 32 mmol/L ANDREA Comment:Testing performed by : [address] [address] Anion gap 6 2 - 15 mmol/L ANDREA Comment:Testing performed by : [address] [address] BUN 14 8 - 25 mg/dL ANDREA Comment:Testing performed by : [address] [address] Creatinine 0.70 0.60 - 1.10 mg/dL ANDREA Comment:Testing performed by : [address] [address] Glucose 102 70 - 199 mg/dL ANDREA Comment: Interpretive [...] was last revised 2017. Testing performed by: [facility], [address] [place] [address]., [address] Calcium 9.3 8.5 - 10.3 mg/dL ANDREA Comment:Testing performed by : [address] [address] Bilirubin, total 0.5 0.1 - 1.2 mg/dL [facility] Comment:Testing performed by : [address] [address] Protein, pl 7.6 6.5 - 8.5 g/dL [facility] Comment:Testing performed by : [address] [address] Albumin 4.8 3.5 - 5.0 g/dL [facility] Comment:Testing performed by : [address] [address] Alk phos 60 40 - 130 Units/L [facility] Comment:Testing performed by : [address] [address] ALT 25 7 - 45 Units/L [facility] Comment:Testing performed by : [address] [address] AST 24 10 - 45 Units/L [facility] Comment:Testing performed by : [address] [address] Blood 08/05/2022 10:1 2 AM CDT 08/05/2022 10:14 AM CDT Sebastien Martinez DO LAB BLOOD ORDERABLES Final R esult ANDREA CASTILLO [address] [facility] [place] [address] documented in this encounter Visit Diagnoses Diagnosis Malignant carcinoid tumor of stomach (HCC) Malignant carcinoid tumor of the stomach documented in this encounter Orders Appointment Requests Count Last Ordered Date Fi rst Ordered Date ONCBCN LAB APPOINTMENT 1 08/05/2022 documented in this encounter Care Teams Designer And Patternmaker Relationship Specialty Start Date End Date Elizabeth Borrego PA [address] [place] [address] PCP - General Internal Medicine 03/25/20 09/27/23 Luann Lawrence, MACHINE SAND MIXER Nurse Practitioner Nurse Practitioner 01/06/19 Adarsh Tuttle MD [address] [address] [place] [address] Consulting Physician Gastroenterology 02/22/19 Sebastien Martinez DO [address] [place] [address] Medical Oncologist/Cargoman Hematology and Oncology 02/22/19 Guru Winters DO [address] [place] [address] Consulting Physician Gastroenterology 02/22/19 Gato Abrams MD [address] [place] [address] Surgeon Surgical Oncology 09/07/19 Marina Rosales MD [address] [place] [address] Consulting Physician General Surgery 03/24/21 documented as of this encounter
--- OUTSIDE RECORDS SUMMARY | 2024-10-04 02:59 | XMS_ITS | Encounter Summary ---
Author Organization [facility] Healthcare Address [address] [place] [address] Care Team Providers Care Research Interviewer Name Role Phone Luann Lawrence NP Unavailable [phone] Adarsh Tuttle MD Unavailable Sebastien Martinez DO Unavailable [phone] Guru Winters DO Unavailable [phone] Gato Abrams MD Unavailable Elizabeth Borrego Primary Care Provider [phone] Marina Rosales MD Unavailable [phone] Reason for Visit * Episode Based Medications (Routine) - Closed Specialty Diagnoses / Procedures Referred By Clemencia mendez Referred To Contact Oncology Diagnoses Malignant carcinoid tumor of stomach (HCC) Procedures OR OCTREOTIDE INJECTION, DEPOT Sebastien Martinez DO [facility] [address] Phone: tel: fax: [facility] Oncology [address] [address] Phone: tel: fax: Referral ID Status Reason Start Date Expiration Date Visits Re quested Visits Authorized [id number] Closed 2022 02/19/2023 1 50 Encounter Details Date Type Department Care Team (Late st Contact Info) Description 06/10/2022 7:45 AM CDT Lab [facility] Lab [facility]8 [place] [address] Malignant carcinoid tumor of stomach (CMS/HCC) (HCC) [...] on file 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 Gender Identity Female 06/07/2020 8:39 AM CDT Sexual Orientation Not on file 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 Not on file Not on file documented as of this encounter Plan of Treatment Not on file documented as of this encounter Procedures Procedure Name Priority Date/Time Associated Diagnosis Comments EGFR Routine 06/10/2022 7:52 AM CDT Malignant carcinoid tumor of stomach (CMS/HCC) (HCC) DIFFERENTIAL AUTO STAT 06/10/2022 7:5 2 AM CDT Malignant carcinoid tumor of stomach (CMS/HCC) (HCC) CHROMOGRANIN A Routine 06/10/2022 7:52 AM CDT Malignant carcinoid tumor of stomach (CMS/HCC) (HCC) CBC WITH AUTO DIFFERENTIAL STAT 06/10/2022 7:52 AM CDT Malignant carcinoid tumor of stomach (CMS/HCC) (HCC) GASTRIN Routine 06/10/2022 7:52 AM CDT Malignant carcinoid tumor of stomach (CMS/HCC) (HCC) COMPREHENSIVE METABOLIC PANEL Routine 06/10/2022 7:52 AM CDT Malignant carcinoid tumor of stomach (CMS/HCC) (HCC) documented in this encounter Results * eGFR (06/10/2022 7:52 AM CDT) eGFR 102 mL/min/1. 73 m2 [...] reviewed 2021. Testing performed by: [facility], [address] [place] [address], [place]., [address] Blood 06/10/2022 7:52 AM CDT 06/10/2022 7:58 AM CDT us Sebastien Martinez DO LAB BLOOD ORDERABLES Final R esult ANDREA CASTILLO [address] [facility] Department [place] [address] * Differential, auto (06/10/2022 7:52 AM CDT) Neutrophil abs 1.8 1.7 - 6.5 K/cumm ANDREA Comment:Testing performed by : [address] [address] Lymphocyte abs 1.1 0.8 - 3.3 K/cumm ANDREA Comment:Testing performed by : [address] [address] Monocyte abs 0.3 0.2 - 0.8 K/cumm ANDREA Comment:Testing performed by : [address] [address] Eosinophil abs 0.1 0.0 - 0.5 K/cumm ANDREA Comment:Testing performed by : [address] [address] Neutrophil pct 55.1 % ANDREA Comment: Interpretive Data Percent cell count reference ranges are not reported, since discordance with absolute values may lead to misinterpretation of CBC data. Current Interpretive Data was last revised on 2018. Testing performed by: [address] [address] Imm gran pct 0.3 % ANDREA Comment: Interpretive Data Percent cell count reference ranges are not reported, since discordance with absolute values may lead to misinterpretation of CBC data. Current Interpretive Data was last revised on 2018. Testing performed by: [address] [address] Lymphocyte pct 32.6 % [facility] Comment: Interpretive Data Percent cell count reference ranges are not reported, since discordance with absolute values may lead to misinterpretation of CBC data. Current Interpretive Data was last revised on 2018. Testing performed by: [address] [address] Monocyte pct 7.5 % [facility] Comment: Interpretive Data Percent cell count reference ranges are not reported, since discordance with absolute values may lead to misinterpretation of CBC data. Current Interpretive Data was last revised on 2018. Testing performed by: [facility], [address] [place] [address]., [address] Eosinophil pct 3.3 % ANDREA Comment: Interpretive Data Percent cell count reference ranges are not reported, since discordance with absolute values may lead to misinterpretation of CBC data. Current Interpretive Data was last revised on 2018. Testing performed by: [address] [address] Basophil pct 1.2 % ANDREA Comment: Interpretive Data Percent cell count reference ranges are not reported, since discordance with absolute values may lead to misinterpretation of CBC data. Current Interpretive Data was last revised on 2018. Testing performed by: [address] [address] Blood 06/10/2022 7:52 AM CDT 06/10/2022 7:58 AM CDT Sebastien Martinez DO LAB BLOOD ORDERABLES Final R esult ANDREA [address] [facility] Department [place] [address] * Chromogranin A (06/10/2022 7:52 AM CDT) Chromogranin A 27 <93 ng/mL ANDREA Comment: ADDITIONAL INFORMATION This test was developed and its performance characteristics determined by [facility] in a manner consistent with CLIA [...] a homogeneous time-resolved immunofluorescent assay manufactured by [employer] and performed on the BRAHMS Kryptor Compact Plus. ? Values obtained with different assay methods or kits may be different and cannot be used interchangeably. ? Test results cannot be interpreted as absolute evidence for the presence or absence of malignant disease. Test Performed by: [place] [address] Community Director: Bjorn Morris M.D. Ph.D.; CLIA# [id number] Testing performed by: [address], [address] Blood 06/10/2022 7:52 AM CDT 06/10/2022 7:58 AM CDT Sebastien Martinez LAB BLOOD ORDERABLES Final R esult Performing Organization Address [facility] de Phone Number [address] [place] [address] * Gastrin (06/10/2022 7:52 AM CDT) Gastrin <10 pg/mL ANDREA Comment: REFERENCE VALUE <100 Reference ranges valid for >= 8 hour fast. Test Performed by: [place] [address] Community Director: Bjorn Morris M.D. Ph.D.; CLIA# [id number] Testing performed by: [address] [address] Blood 06/10/2022 7:52 AM CDT 06/10/2022 7:58 AM CDT Sebastien Martinez LAB BLOOD ORDERABLES Final R esult Performing Organization Address [facility] de Phone Number [address] [place] [address] * (ABNORMAL) CBC with auto differential (06/10/2022 7:52 AM CDT) [facility] Signature WBC 3.3(L) 3.8 - 9.9 K/cumm ANDREA Comment:Testing performed by : [address] [address] Hgb 12.7 11.9 - 15.5 g/dL ANDREA Comment:Testing performed by : [address], [address] Hct 38.3 35.6 - 45.5 % ANDERA Comment:Testing performed by : [address] [address] Plt 239 150 - 400 K/cumm ANDREA Comment:Testing performed by : [address] [address] MPV 9.6 9.1 - 12.3 fL ANDREA Comment:Testing performed by : [address], [address] RBC 4.29 3.90 - 5.20 M/cumm ANDREA Comment:Testing performed by : [address] [address] MCV 89.3 81.3 - 96.4 fL ANDREA Comment:Testing performed by : [address] [address] MCH 29.6 27.1 - 33.3 pg ANDREA Comment:Testing performed by : [address], [address] MCHC 33.2 32.3 - 35.7 g/dL ANDREA Comment:Testing performed by : [address], [address] RDW CV 12.3 11.1 - 14.9 % ANDREA Comment:Testing performed by : [address], [address] RDW SD 40.4 35.7 - 48.1 fL ANDREA Comment:Testing performed by : [address], [address] Blood 06/10/2022 7:52 AM CDT 06/10/2022 7:58 AM CDT us Sebastien Martinez DO LAB BLOOD ORDERABLES Final R esult ANDREA [address] [facility] Department [place] [address] * Comprehensive metabolic panel (06/10/2022 7:52 AM CDT) Sodium 140 135 - 145 mmol/L ANDREA Comment:Testing performed by : [address] [address] Potassium, pl 4.1 3.3 - 4.9 mmol/L ANDREA Comment:Testing performed by : [address] [address] Chloride 101 97 - 110 mmol/L ANDREA Comment:Testing performed by : [address] [address] CO2 29 22 - 32 mmol/L ANDREA Comment:Testing performed by : [address] [address] Anion gap 10 2 - 15 mmol/L ANDREA Comment:Testing performed by : [address] [address] BUN 17 8 - 25 mg/dL ANDREA Comment:Testing performed by : [address] [address] Creatinine 0.70 0.60 - 1.10 mg/dL ANDREA Comment:Testing performed by : [address] [address] Glucose 114 70 - 199 mg/dL ANDREA Comment: Interpretive [...] was last revised 2017. Testing performed by: [address] [address] Calcium 9.8 8.5 - 10.3 mg/dL ANDREA Comment:Testing performed by : [address] [address] Bilirubin, total 0.4 0.1 - 1.2 mg/dL ANDREA Comment:Testing performed by : [address] [address] Protein, pl 7.7 6.5 - 8.5 g/dL ANDREA Comment:Testing performed by : [address] [address] Albumin 4.6 3.5 - 5.0 g/dL ANDREA Comment:Testing performed by : [address] [address] Alk phos 69 40 - 130 Units/L ANDREA Comment:Testing performed by : [address] [address] ALT 21 7 - 45 Units/L ANDREA Comment:Testing performed by : [address] [address] AST 22 10 - 45 Units/L ANDREA Comment:Testing performed by : [address] [address] Blood 06/10/2022 7:52 AM CDT 06/10/2022 7:58 AM CDT Sebastien Martinez DO LAB BLOOD ORDERABLES Final R esult ANDREA [address] [facility] Department [place] [address] documented in this encounter Visit Diagnoses Diagnosis Malignant carcinoid tumor of stomach (HCC) Malignant carcinoid tumor of the stomach documented in this encounter Orders Appointment Requests Count Last Ordered Date Fi rst Ordered Date ONCBCN LAB APPOINTMENT 1 06/10/2022 documented in this encounter Care Teams Research Interviewer Relationship Specialty Start Date End Date Elizabeth Borrego PA [address] [place], [place] [id number] PCP - General Internal Medicine 03/25/20 09/27/23 Luann Lawrence, ANUP Nurse Practitioner Nurse Practitioner 01/06/19 Adarsh Tuttle MD [address] [place] [address] Consulting Physician Gastroenterology 02/22/19 Sebastien Martinez DO [address] [place] [address] Medical Oncologist/Rework Machine Operator Hematology and Oncology 02/22/19 Guru Winters DO [address] [place] [address] Consulting Physician Gastroenterology 02/22/19 Gato Abrams MD [address] [place] [address] Surgeon Surgical Oncology 09/07/19 Marina Rosales MD [address] [place] [address] Consulting Physician General Surgery 03/24/21 documented as of this encounter
--- OUTSIDE RECORDS SUMMARY | 2024-10-04 02:59 | XMS_ITS | Encounter Summary ---
Author Organization [facility] Healthcare Address [address] [place] [address] Care Team Providers Care Paediatrician Name Role Phone Luann Lawrence NP Unavailable [phone] Adarsh Tuttle MD Unavailable [phone] Sebastien Martinez DO Unavailable [phone] Guru Winters DO Unavailable Gato Abrams MD Unavailable Elizabeth Borrego Primary Care Provider [phone] Marina Rosales MD Unavailable [phone] Reason for Visit * Episode Based Medications (Routine) - Closed Specialty Diagnoses / Procedures Referred By Clemencia mendez Referred To Contact Oncology Diagnoses Malignant carcinoid tumor of stomach (HCC) Procedures [place] OCTREOTIDE INJECTION, DEPOT Sebastien Martinez DO [facility] [address] Phone: tel: fax: [facility] Oncology [address] [address] Phone: tel: fax: Referral ID Status Reason Start Date Expiration Date Visits Re quested Visits Authorized [id number] Closed 2022 02/19/2023 1 50 Encounter Details Date Type Department Care Team (Late st Contact Info) Description 05/13/2022 7:45 AM CDT Lab [facility] Lab [facility]8 [place] [address] Malignant carcinoid tumor of stomach (CMS/HCC) (HCC) [...] file 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 Gender Identity Female 06/07/2020 8:39 AM CDT Sexual Orientation Not on file 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 Not on file documented as of this encounter Plan of Treatment Not on file documented as of this encounter Procedures Procedure Name Priority Date/Time Associated Diagnosis Comments EGFR Routine 05/13/2022 7:53 AM CDT Malignant carcinoid tumor of stomach (CMS/HCC) (HCC) DIFFERENTIAL AUTO STAT 05/13/2022 7:5 3 AM CDT Malignant carcinoid tumor of stomach (CMS/HCC) (HCC) CHROMOGRANIN A Routine 05/13/2022 7:53 AM CDT Malignant carcinoid tumor of stomach (CMS/HCC) (HCC) CBC WITH AUTO DIFFERENTIAL STAT 05/13/2022 7:53 AM CDT Malignant carcinoid tumor of stomach (CMS/HCC) (HCC) GASTRIN Routine 05/13/2022 7:53 AM CDT Malignant carcinoid tumor of stomach (CMS/HCC) (HCC) COMPREHENSIVE METABOLIC PANEL Routine 05/13/2022 7:53 AM CDT Malignant carcinoid tumor of stomach (CMS/HCC) (HCC) documented in this encounter Results * eGFR (05/13/2022 7:53 AM CDT) eGFR 102 mL/min/1. 73 m2 [...] was last reviewed 2021. Testing performed by: [facility], [address] [place] [address], [place]., [address] Blood 05/13/2022 7:53 AM CDT 05/13/2022 8:00 AM CDT us Sebastien Martinez DO LAB BLOOD ORDERABLES Final R esult ANDREA CASTILLO [address] [facility] Department [place] [address] * Differential, auto (05/13/2022 7:53 AM CDT) Neutrophil abs 2.2 1.7 - 6.5 K/cumm ANDREA Comment:Testing performed by : [address] [address] Lymphocyte abs 1.1 0.8 - 3.3 K/cumm ANDREA Comment:Testing performed by : [address] [address] Monocyte abs 0.4 0.2 - 0.8 K/cumm ANDREA Comment:Testing performed by : [address] [address] Eosinophil abs 0.1 0.0 - 0.5 K/cumm ANDREA Comment:Testing performed by : [address] [address] Neutrophil pct 57.4 % ANDREA Comment: Interpretive Data Percent cell count reference ranges are not reported, since discordance with absolute values may lead to misinterpretation of CBC data. Current Interpretive Data was last revised on 2018. Testing performed by: [address] [address] Imm gran pct 0.3 % ANDREA Comment: Interpretive Data Percent cell count reference ranges are not reported, since discordance with absolute values may lead to misinterpretation of CBC data. Current Interpretive Data was last revised on 2018. Testing performed by: [address] [address] Lymphocyte pct 28.4 % [facility] Comment: Interpretive Data Percent cell count reference ranges are not reported, since discordance with absolute values may lead to misinterpretation of CBC data. Current Interpretive Data was last revised on 2018. Testing performed by: [address] [address] Monocyte pct 10.2 % CERTAVO Comment: Interpretive Data Percent cell count reference ranges are not reported, since discordance with absolute values may lead to misinterpretation of CBC data. Current Interpretive Data was last revised on 2018. Testing performed by: [facility], [address] [place] [address]., [address] Eosinophil pct 2.9 % ANDREA Comment: Interpretive Data Percent cell count reference ranges are not reported, since discordance with absolute values may lead to misinterpretation of CBC data. Current Interpretive Data was last revised on 2018. Testing performed by: [address] [address] Basophil pct 0.8 % ANDREA Comment: Interpretive Data Percent cell count reference ranges are not reported, since discordance with absolute values may lead to misinterpretation of CBC data. Current Interpretive Data was last revised on 2018. Testing performed by: [address] [address] Blood 05/13/2022 7:53 AM CDT 05/13/2022 8:00 AM CDT Sebastien Martinez DO LAB BLOOD ORDERABLES Final R esult MAYITAVO [address] [facility] Department [place] [address] * Chromogranin A (05/13/2022 7:53 AM CDT) Chromogranin A 20 <93 ng/mL ANDREA Comment: ADDITIONAL INFORMATION This test was developed and its performance characteristics determined by [facility] in a manner consistent with CLIA requirements. [...] a homogeneous time-resolved immunofluorescent assay manufactured by [employer] and performed on the BRAHMS Kryptor Compact Plus. ? Values obtained with different assay methods or kits may be different and cannot be used interchangeably. ? Test results cannot be interpreted as absolute evidence for the presence or absence of malignant disease. Test Performed by: [place] [address] Touch Up Edger: Bjorn Morris M.D. Ph.D.; CLIA# [id number] Testing performed by: [address], [address] Blood 05/13/2022 7:53 AM CDT 05/13/2022 8:00 AM CDT Sebastien Martinez LAB BLOOD ORDERABLES Final R esult Performing Organization Address [facility] de Phone Number MAYI[address] [place] [address] * Gastrin (05/13/2022 7:53 AM CDT) Gastrin <10 pg/mL ANDREA Comment: REFERENCE VALUE <100 Reference ranges valid for >= 8 hour fast. Test Performed by: [place] [address] Touch Up Edger: Bjorn Morris M.D. Ph.D.; CLIA# [id number] Testing performed by: [address] [address] Blood 05/13/2022 7:53 AM CDT 05/13/2022 8:00 AM CDT Sebastien Martinez DO LAB BLOOD ORDERABLES Final R esult Performing Organization Address [facility] de Phone Number [address] [place] [address] * CBC with auto differential (05/13/2022 7:53 AM CDT) [facility] WBC 3.8 3.8 - 9.9 K/cumm ANDREA Comment:Testing performed by : [address] [address] Hgb 12.0 11.9 - 15.5 g/dL ANDREA Comment:Testing performed by : [address] [address] Hct 35.7 35.6 - 45.5 % ANDREA Comment:Testing performed by : [address] [address] Plt 241 150 - 400 K/cumm ANDREA Comment:Testing performed by : [address] [address] MPV 9.6 9.1 - 12.3 fL ANDREA Comment:Testing performed by : [address] [address] RBC 4.12 3.90 - 5.20 M/cumm ANDREA Comment:Testing performed by : [address] [address] MCV 86.7 81.3 - 96.4 fL ANDREA Comment:Testing performed by : [address] [address] MCH 29.1 27.1 - 33.3 pg NADREA Comment:Testing performed by : [address] [address] MCHC 33.6 32.3 - 35.7 g/dL ANDREA Comment:Testing performed by : [address] [address] RDW CV 11.9 11.1 - 14.9 % ANDREA Comment:Testing performed by : [address], [address] RDW SD 37.9 35.7 - 48.1 fL ANDREA Comment:Testing performed by : [address], [address] Blood 05/13/2022 7:53 AM CDT 05/13/2022 8:00 AM CDT us Sebastien Martinez DO LAB BLOOD ORDERABLES Final R esult ANDREA CATSILLO [address] [facility] Department [place] [address] * Comprehensive metabolic panel (05/13/2022 7:53 AM CDT) Sodium 138 135 - 145 mmol/L ANDREA Comment:Testing performed by : [address] [address] Potassium, pl 3.9 3.3 - 4.9 mmol/L ANDREA Comment:Testing performed by : [address] [address] Chloride 103 97 - 110 mmol/L ANDREA Comment:Testing performed by : [address] [address] CO2 25 22 - 32 mmol/L ANDREA Comment:Testing performed by : [address] [address] Anion gap 10 2 - 15 mmol/L ANDREA Comment:Testing performed by : [address] [address] BUN 19 8 - 25 mg/dL ANDREA Comment:Testing performed by : [address] [address] Creatinine 0.70 0.60 - 1.10 mg/dL ANDREA Comment:Testing performed by : [address] [address] Glucose 72 70 - 199 mg/dL ANDREA Comment: Interpretive [...] was last revised 2017. Testing performed by: [facility], [address] [place] [address]., [address] Calcium 9.4 8.5 - 10.3 mg/dL ANDREA Comment:Testing performed by : [address] [address] Bilirubin, total 0.4 0.1 - 1.2 mg/dL ANDREA Comment:Testing performed by : [address] [address] Protein, pl 7.1 6.5 - 8.5 g/dL [facility] Comment:Testing performed by : [address] [address] Albumin 4.4 3.5 - 5.0 g/dL ANDREA Comment:Testing performed by : [address] [address] Alk phos 64 40 - 130 Units/L [facility] Comment:Testing performed by : [address] [address] ALT 19 7 - 45 Units/L [facility] Comment:Testing performed by : [address] [address] AST 24 10 - 45 Units/L [facility] Comment:Testing performed by : [address] [address] Blood 05/13/2022 7:53 AM CDT 05/13/2022 8:00 AM CDT Sebastien Martinez DO LAB BLOOD ORDERABLES Final R esult [facility] [address] [facility] [place] [address] documented in this encounter Visit Diagnoses Diagnosis Malignant carcinoid tumor of stomach (HCC) Malignant carcinoid tumor of the stomach documented in this encounter Orders Appointment Requests Count Last Ordered Date Fi rst Ordered Date ONCBCN LAB APPOINTMENT 1 05/13/2022 documented in this encounter Care Teams Paediatrician Relationship Specialty Start Date End Date Elizabeth Borrego PA [address] [place] [address] PCP - General Internal Medicine 03/25/20 09/27/23 Luann Lawrence, AUTOMATIC BUFFING WHEEL FORMER Nurse Practitioner Nurse Practitioner 01/06/19 Adarsh Tuttle MD [address] [place] [address] Consulting Physician Gastroenterology 02/22/19 Sebastien Martinez DO [address] [place] [address] Medical Oncologist/Life Science Research Assistant Hematology and Oncology 02/22/19 Guru Winters DO [address] [place] [address] Consulting Physician Gastroenterology 02/22/19 Gato Abrams MD [address] [place] [address] Surgeon Surgical Oncology 09/07/19 Marina Rosales MD [address] [place] [address] Consulting Physician General Surgery 03/24/21 documented as of this encounter
--- OUTSIDE RECORDS SUMMARY | 2024-10-04 02:59 | XMS_ITS | Encounter Summary ---
Author Organization [facility] Address [address] [place] [address] Phone Care Team Providers Care Coper Hand Name Role Phone MelindaLuann oh Aditya HEBERT Unavailable [phone] Adarsh Tuttle MD Unavailable [phone] Sebastien Martinez DO Unavailable [phone] Guru Winters DO Unavailable [phone] Gato Abrams MD Unavailable [phone] Elizabeth Borrego Primary Care Provider [phone] Marina Rosales MD Unavailable [phone] Reason for Visit * Episode Based Medications (Routine) - Closed Specialty Diagnoses / Procedures Referred By Contjimmy t Referred To Contact Oncology Diagnoses Malignant carcinoid tumor of stomach (HCC) Procedures UT OCTREOTIDE INJECTION, DEPOT Sebastien Martinez, 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 Gender Identity Female 06/07/2020 8:39 AM CDT Sexual Orientation Not on file 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 Not on file Not on file documented as of this encounter Last Filed Vital Signs Vital Sign Reading Time Taken Comments Blood Pressure 123/78 05/13/2022 8:33 AM CDT Pulse 60 05/13/2022 8:33 AM CDT Temperature 36.8 ??C (98.3 ??F) 05/13/2022 8:33 AM CD T Respiratory Rate 18 05/13/2022 8:33 AM CDT Oxygen Saturation 97% 05/13/2022 8:33 AM CDT Inhaled Oxygen Concentration - - Weight 72.4 kg (159 lb 9.6 oz) 05/13/2022 8:33 A M CDT Height - - Body Mass Index 27.4 04/27/2022 8:26 AM CDT documented in this encounter Nursing Notes * Sunshine Richardson RN - 05/13/2022 8:15 AM CDT Oncology Nursing Note [facility] Fabiola Gibson is a 56 y.o. female who presents for the following injection: octreotide. Nursing Assessment Additional Notes: BP: 123/78 Temp: 36.8 ??C (98.3 ??F) Pulse: 60 Resp: 18 SpO2: 97 % Weight: 72.4 kg (159 lb 9.6 oz) Patient: met treatment parameters Fabiola Gibson tolerated injection well Additional Notes: right upper buttocks Discharge Plan Discharge instructions given to patient. [...] 10 mg 10 mg, intramuscular, Once, On Wed05/13/22 at 0900, For 1 dose, Refrigerate. For IM intragluteal administration only- alternate gluteal sites. Shamir.Indications:Malignant carcinoid tumor of stomach (HCC) Given 05/13/2022 8:34 AM CDT 10 mg Right Dorsogluteal/Butt ock documented in this encounter Orders Appointment Requests Count Last Ordered Date Fi rst Ordered Date ONCBCN INJECTION APPOINTMENT REQUEST 1 04/18 documented in this encounter Care Teams Coper Hand Relationship Specialty Start Date End Date Elizabeth Borrego PA [address] [place] [address] PCP - General Internal Medicine 03/25/20 09/27/23 Luann Lawrence NP Nurse Practitioner Nurse Practitioner 01/06/19 Adarsh Tuttle MD [address] [facility] [address] [place] [address] Consulting Physician Gastroenterology 02/22/19 Sebastien Martinez DO [address] [place] [address] Medical Oncologist/Snuff Grinder Hematology and Oncology 02/22/19 Guru Winters DO [address] [place] [address] Consulting Physician Gastroenterology 02/22/19 Gato Abrams MD [address] [place] [address] Surgeon Surgical Oncology 09/07/19 Marina Rosales MD [address] [facility] [address] [place] [address] Consulting Physician General Surgery 03/24/21 documented as of this encounter
--- OUTSIDE RECORDS SUMMARY | 2024-10-04 02:59 | XMS_ITS | Encounter Summary ---
Author Organization [facility] Address [address] [place] [address] Phone Care Team Providers Care Hospital Coder Name Role Phone Luann Lawrence ANUP Unavailable [phone] Adarsh Tuttle MD Unavailable [phone] Sebastien Martinez DO Unavailable [phone] Guru Winters DO Unavailable [phone] Gato Abrams MD Unavailable [phone] Elizabeth Borrego Primary Care Provider [phone] Marina Rosales MD Unavailable [phone] Encounter Details Date Type Department Care Team (Late st Contact Info) Description 06/09/2022 Orders Only [facility] Oncology [address] 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 Not on file Not on file documented as of this encounter Plan of Treatment Not on file documented as of this encounter Visit Diagnoses Diagnosis Malignant carcinoid tumor of stomach (HCC)- Primary Malignant carcinoid tumor of the stomach documented in this encounter Care Teams Hospital Coder Relationship Specialty Start Date End Date Elizabeth Borrego PA [address] [facility] [address] [place], [place] [id number] PCP - General Internal Medicine 03/25/20 09/27/23 Luann Lawrence NP Nurse Practitioner Nurse Practitioner 01/06/19 Adarsh Tuttle MD [address] [facility] [address] [place] [address] Consulting Physician Gastroenterology 02/22/19 Sebastien Martinez DO [address] [place] [id number] Medical Oncologist/Button Attaching Machine Operator Hematology and Oncology 02/22/19 Guru Winters DO [address] [place] [address] Consulting Physician Gastroenterology 02/22/19 Gato Abrams MD [address] [place] [address] Surgeon Surgical Oncology 09/07/19 Marina Rosales MD [address] [place] [address] [address] [place] [address] Consulting Physician General Surgery 03/24/21 documented as of this encounter
--- OUTSIDE RECORDS SUMMARY | 2024-10-04 02:59 | XMS_ITS | Encounter Summary ---
Author Organization [facility] Address [address] [place] [address] Phone Care Team Providers Care Storekeeper Engineering Name Role Phone MelindaLuann oh ANUP Unavailable [phone] Adarsh Tuttle MD Unavailable [phone] Vick Martinez DO Unavailable [phone] Guru Winters DO Unavailable [phone] Gato Abrams MD Unavailable [phone] Elizabeth Borrego Primary Care Provider [phone] Marina Rosales MD Unavailable [phone] Reason for Referral * Consultation (Routine) - Closed Specialty Diagnoses / Procedures Referred By Contjimmy t Referred To Contact Oncology Diagnoses Malignant carcinoid tumor of stomach (HCC) Vick Martinez DO [facility] [address] Phone: tel: fax: Vick Martinez DO [address] [address] Phone: tel: fax: Referral ID Status Reason Start Date Expiration Date V isits Requested Visits Authorized [id number] Closed Specialty Services Required 07/08/2022 10/17/2022 99 99 Question Answer Please select the performing region: [facility] (All Locations) [[id number]] Please select the performing department: [facility] IM ONC MHE2 180 [[id number]] Is this referral for Breast Health Multi-Disciplinary Clinic? No To provider: VICK MARTINEZ [[id number]] # of visits: 1 Reason for Visit * Reason Comments malignant carcinoid tumor of stomach Follow-up * Consultation (Routine) - Closed Specialty Diagnoses / Procedures Referred By Clemencia mendez Referred To Contact Oncology Diagnoses Malignant carcinoid tumor of stomach (HCC) Vick Martinez DO [address] [place] [address] Phone: tel: fax: Vick Martinez DO [address] [place] [address] Phone: tel: fax: Referral ID Status Reason Start Date Expiration Date V isits Requested Visits Authorized [id number] Closed Specialty Services Required 07/08/2022 10/17/2022 99 99 Encounter Details Date Type Department Care Team (Late st Contact Info) Description 07/08/2022 8:15 AM CDT Office Visit [facility] [address] [place] [address] [address] [place] [id number] Vick Martinez, [address] [place] [phone] Malignant carcinoid tumor of stomach (CMS/HCC) (HCC) [...] on file 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:22 AM CYBER OPERATOR Gender Identity Female 06/07/2020 8:39 AM CDT Sexual Orientation Not on file 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 Not on file Not on file Not on file documented as of this encounter Last Filed Vital Signs Vital Sign Reading Time Taken Comments Blood Pressure 132/73 07/08/2022 8:12 AM CDT Pulse 63 07/08/2022 8:12 AM CDT Temperature 36.7 ??C (98.1 ??F) 07/08/2022 8 :12 AM CDT Respiratory Rate 18 07/08/2022 8:12 AM CDT Oxygen Saturation 98% 07/08/2022 8:1 2 AM CDT Inhaled Oxygen Concentration - - Weight 73.3 kg (161 lb 9.6 oz) 07/08/2022 8:12 AM CDT without shoes Height 162.6 cm (5' 4 ) 07/08/2022 8:12 AM CDT Body Mass Index 27.74 07/08/2022 8:12 AM CDT documented in this encounter Progress Notes * Vick Martinez, - 07/08/2022 8:15 AM CDT Patient ID: Fabiola Gibson is a 57 y.o. female. Primary Care Provider: Elizabeth Borrego PA Assessment/Plan 1. 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 2. Pernicious anemia. 3. Localized pancreatic neuroendocrine tumor. Recommendations: 1. Based on the recent PET gallium DOTATATE scan and the EGD EUS procedure in April, she still has localized disease in the pancreas. 2. Therefore, patient will continue with once a month octreotide injections at 10 mg intramuscularly. 3. I will see the patient back in 3 months for follow-up. 4. I will follow-up with laboratory assessment at next visit. 5. Due to the fact that the PET DOTATATE scan and the EUS shows active disease, I am reluctant to stop the octreotide injections and will continue with this indefinitely. My total encounter time on 07/08/2022 was 20 minutes which was spent in [...] - Clinic Appointment Request Follow up; VICK MARTINEZ; Clinic Appointment Location: [facility] IM [facility]C [facility] 180 - Lab Draw Appt Request Arm Draw or Central Line Draw? Arm; What is your ordering location? IM Onc/Hem/BMT; Where will this patient receive treatment? [facility]; Future - Injection Appointment Request Is this the patient's first treatment? No; What is your ordering location? IM Onc/Hem/BMT; Where will this patient receive treatment? [facility]; Future - Chromogranin A; Future - Gastrin; Future - CBC with auto differential; Future - Comprehensive metabolic panel; Future - Lab Draw Appt Request Arm Draw or Central Line Draw? Arm; What is your ordering location? [facility] IM Onc/Hem/BMT; Where will this patient receive treatment? [facility]; Future - Injection Appointment Request Is this the patient's first treatment? No; What is your ordering location? IM Onc/Hem/BMT; Where will this patient receive treatment? [facility]; Future - Chromogranin A; Future - Gastrin; Future - CBC with auto differential; Future - Comprehensive metabolic panel; Future - Clinic Appointment Request Follow up; VICK MARTINEZ; Clinic Appointment Location: [facility] IM ONC MHE2 180; Future - Lab Draw Appt Request Arm Draw or Central Line Draw? Arm; What is your ordering location? IM Onc/Hem/BMT; [facility]; Future - Injection Appointment Request Is this the patient's first treatment? No; What is your ordering location? IM Onc/Hem/BMT; [facility]; Future - Chromogranin A; Future - Gastrin; Future - CBC with auto differential; Future - Comprehensive metabolic panel; Future - Ambulatory referral to Oncology; Future Subjective Interval History: Stage I carcinoid [...] was then referred to Dr. Tuttle at [facility] for EUS evaluation. Thiswas performed on January [...] Gato Abrams in Surgical Oncology Department at [facility]. 8. On February 24, 2019, she [...] A in May was better but still [id number]. 12. In May of 2019, we had [...] decided to proceed with medical therapy using [id number] mg IM every [address] [...] steatorrhea but easily controlled with diet and gujp-hma-pxsudvk medications. 19. Patient has been on octreotide [...] neuroendocrine tumor. The nodule/lesion was stable 24. Patient returns for her follow-up visit. She continues to be on octreotide LAR 10 mg IM every 4weeks without any side effects. She did undergo a PET gallium DOTATATE scan few days ago and is here for those results. Interval Notes: I have reviewed: allergies, current [...] Exam: Vital Signs for this encounter: BSA: 1.82 meters squared BP 132/73 (BP Location: Left arm) Pulse 63 Temp 36.7 ??C (98.1 ??F) (Oral) Resp 18 Ht 162.6cm (5' 4 ) Wt 73.3 kg (161 lb 9.6 oz) Comment: without shoes SpO2 98% BMI 27.74 kg/m?? Physical Exam Constitutional: Appearance: She is [...] Results: WBC Date Value Ref Range Status 08/05/2022 3.1 (L) 3.8 - 9.9 K/cumm Final Comment: Testing performed by: [address] [address] Hgb Date Value Ref Range Status 08/05/2022 12.4 11.9 - 15.5 g/dL Final Comment: Testing performed by: [address] [address] Hct Date Value Ref Range Status 08/05/2022 37.3 35.6 - 45.5 % Final Comment: Testing performed by: [address] [address] Plt Date Value Ref Range Status 08/05/2022 240 150 - 400 K/cumm Final Comment: Testing performed by: [address] [address] Creatinine Date Value Ref Range Status 08/05/2022 0.70 0.60 - 1.10 mg/dL Final Comment: Testing performed by: [address] [place] [address] AST Date Value Ref Range Status 08/05/2022 24 10 - 45 Units/L Final Comment: Testing performed by: [address] [address] PET gallium DOTATATE scan on July 06 [...] gastrectomy and gastrojejunostomy without associated abnormal activity. documented in this encounter Plan of Treatment Scheduled Referrals Name Type Priority Associated Diagnoses Order Schedule Ambulatory referral to Oncology Outpatient Referral Routine Malignant carcinoid tumor of stomach (CMS/HCC) (HCC) Expected: 07/22/2022 (Approximate), Expires: 07/08/2023 documented as of this encounter Results * Comprehensive metabolic panel (09/30/2022 9:52 AM CYBER OPERATOR) Sodium 141 135 - 145 mmol/L ANDREA Comment:Testing performed by : [address] [address] Potassium, pl 4.4 3.3 - 4.9 mmol/L ANDREA Comment:Testing performed by : [address] [address] Chloride 106 97 - 110 mmol/L ANDREA Comment:Testing performed by : [address] [address] CO2 27 22 - 32 mmol/L ANDREA Comment:Testing performed by : [address] [address] Anion gap 8 2 - 15 mmol/L ANDREA Comment:Testing performed by : [address] [address] BUN 16 8 - 25 mg/dL ANDREA Comment:Testing performed by : [address] [address] Creatinine 0.60 0.60 - 1.10 mg/dL ANDRAE Comment:Testing performed by : [address] [address] Glucose 117 70 - 199 mg/dL ANDREA [...] was last revised 2017. Testing performed by: [address] [address] Calcium 9.3 8.5 - 10.3 mg/dL [facility] Comment:Testing performed by : [address] [address] Bilirubin, total 0.4 0.1 - 1.2 mg/dL [facility] Comment:Testing performed by : [address] [address] Protein, pl 6.9 6.5 - 8.5 g/dL [facility] Comment:Testing performed by : [address] [address] Albumin 4.4 3.5 - 5.0 g/dL [facility] Comment:Testing performed by : [address] [address] Alk phos 64 40 - 130 Units/L ANDREA Comment:Testing performed by : [address] [address] ALT 27 7 - 45 Units/L [facility] Comment:Testing performed by : [address] [address] AST 27 10 - 45 Units/L [facility] Comment:Testing performed by : [address] [address] Blood 09/30/2022 9:52 AM CYBER OPERATOR 09/30/2022 9:53 AM CYBER OPERATOR Vick Martinez DO LAB BLOOD ORDERABLES Final R esult ANDREA [address] [facility] [place] [address] * (ABNORMAL) CBC with auto differential (09/30/2022 9:52 AM CYBER OPERATOR) WBC 4.0 3.8 - 9.9 K/cumm ANDERA CASTILLO Comment:Testing performed by : [address] [address] Hgb 11.6(L) 11.9 - 15.5 g/dL ANDREA CASTILLO Comment:Testing performed by : [address] [address] Hct 35.4(L) 35.6 - 45.5 % ANDREA CASTILLO Comment:Testing performed by : [address] [address] Plt 222 150 - 400 K/cumm ANDREA CASTILLO Comment:Testing performed by : [address] [address] MPV 9.6 9.1 - 12.3 fL ANDREA CASTILLO Comment:Testing performed by : [address] [address] RBC 4.05 3.90 - 5.20 M/cumm ANDREA CASTILLO Comment:Testing performed by : [address] [address] MCV 87.4 81.3 - 96.4 fL ANDREA CASTILLO Comment:Testing performed by : [address] [address] MCH 28.6 27.1 - 33.3 pg ANDREA CASTILLO Comment:Testing performed by : [address] [address] MCHC 32.8 32.3 - 35.7 g/dL ANDREA CASTILLO Comment:Testing performed by : [facility], [address] [place] [address]., [address] RDW CV 11.9 11.1 - 14.9 % ANDREA Comment:Testing performed by : [address] [address] RDW SD 38.5 35.7 - 48.1 fL ANDREA Comment:Testing performed by : [address] [address] Blood 09/30/2022 9:52 AM CYBER OPERATOR 09/30/2022 9:53 AM CYBER OPERATOR Vick Martinez DO LAB BLOOD ORDERABLES Final R esult Performing Organization Address [facility] de Phone Number [address] [place] [address] * Gastrin (09/30/2022 9:52 AM CYBER OPERATOR) [facility] Gastrin <10 pg/mL ANDREA Comment: REFERENCE VALUE <100 Reference ranges valid for >= 8 hour fast. Test Performed by: [place] [address] Acupuncture Physician: Bjorn Morris M.D. Ph.D.; CLIA# [id number] Testing performed by: [address] [address] Blood 09/30/2022 9:52 AM CYBER OPERATOR 09/30/2022 9:53 AM CYBER OPERATOR Vick Martinez DO LAB BLOOD ORDERABLES Final R ult Performing Organization Address [facility] de Phone Number MAYI[address] [employer] [place] [address] * Chromogranin A (09/30/2022 9:52 AM CYBER OPERATOR) Chromogranin A 30 <93 ng/mL ANDREA CASTILLO Comment: ADDITIONAL INFORMATION This test was developed and its performance characteristics determined by [facility] in a manner consistent with CLIA requirements. [...] a homogeneous time-resolved immunofluorescent assay manufactured by [employer] and performed on the [facility] [employer] Compact Plus. ? Values obtained with different assay methods or kits may be different and cannot be used interchangeably. ? Test results cannot be interpreted as absolute evidence for the presence or absence of malignant disease. Test Performed by: [place] [address] Acupuncture Physician: Bjorn Morris M.D. Ph.D.; CLIA# [id number] Testing performed by: [address] [address] Blood 09/30/2022 9:52 AM CYBER OPERATOR 09/30/2022 9:53 AM CYBER OPERATOR us Vick Martinez DO LAB BLOOD ORDERABLES Final R esult ANDREA CASTILLO [address] [facility] [place] [address] * (ABNORMAL) Comprehensive metabolic panel (09/02/2022 9:35 AM CYBER OPERATOR) Pathologist [facility] Sodium 140 135 - 145 mmol/L ANDREA CASTILLO Comment:Testing performed by : [address] [address] Potassium, pl 4.1 3.3 - 4.9 mmol/L ANDREA Comment:Testing performed by : [address] [address] Chloride 102 97 - 110 mmol/L ANDREA Comment:Testing performed by : [address], [place]., [address] CO2 28 22 - 32 mmol/L ANDREA Comment:Testing performed by : [address], [place]., [address] Anion gap 10 2 - 15 mmol/L ANDREA Comment:Testing performed by : [address], [place]., [address] BUN 15 8 - 25 mg/dL ANDREA Comment:Testing performed by : [address] [address] Creatinine 0.70 0.60 - 1.10 mg/dL ANDREA Comment:Testing performed by : [address] [address] Glucose 50(C) 70 - 199 mg/dL ANDREA Comment: Critical Result called to and read back by louise long, DATE: 2022-09-02 10:10:50 BY: [email or web address] Interpretive Data Fasting glucose >/= 126 mg/dl [...] was last revised 2017. Testing performed by: [address] [address] Calcium 9.5 8.5 - 10.3 mg/dL ANDREA Comment:Testing performed by : [address] [address] Bilirubin, total 0.4 0.1 - 1.2 mg/dL ANDREA Comment:Testing performed by : [address] [address] Protein, pl 7.9 6.5 - 8.5 g/dL ANDREA Comment:Testing performed by : [address] [address] Albumin 4.9 3.5 - 5.0 g/dL ANDREA CASTILLO Comment:Testing performed by : [address] [address] Alk phos 72 40 - 130 Units/L ANDREA Comment:Testing performed by : [address] [address] ALT 23 7 - 45 Units/L ANDREA Comment:Testing performed by : [address] [address] AST 24 10 - 45 Units/L ANDREA Comment:Testing performed by : [address] [address] Blood 09/02/2022 9:35 AM CYBER OPERATOR 09/02/2022 9:37 AM CYBER OPERATOR us Vick Martinez DO LAB BLOOD ORDERABLES Final R esult ANDREA [facility] [place] [address] * CBC with auto differential (09/02/2022 9:35 AM CYBER OPERATOR) Pathologist [facility] WBC 4.5 3.8 - 9.9 K/cumm ANDREA CASTILLO Comment:Testing performed by : [address] [address] Hgb 12.4 11.9 - 15.5 g/dL ANDREA CASTILLO Comment:Testing performed by : [address] [address] Hct 37.3 35.6 - 45.5 % ANDREA CASTILLO Comment:Testing performed by : [address] [address] Plt 284 150 - 400 K/cumm ANDREA CASTILLO Comment:Testing performed by : [address] [address] MPV 9.4 9.1 - 12.3 fL ANDREA CASTILLO Comment:Testing performed by : [facility], [address] [place] [address]., [address] RBC 4.25 3.90 - 5.20 M/cumm ANDREA CASTILLO Comment:Testing performed by : [facility], [address] [place] [address]., [address] MCV 87.8 81.3 - 96.4 fL ANDREA CASTILLO Comment:Testing performed by : [address] [address] MCH 29.2 27.1 - 33.3 pg ANDREA CASTILLO Comment:Testing performed by : [address] [address] MCHC 33.2 32.3 - 35.7 g/dL ANDREA CASTILLO Comment:Testing performed by : [address] [address] RDW CV 11.9 11.1 - 14.9 % ANDREA CASTILLO Comment:Testing performed by : [address] [address] RDW SD 37.8 35.7 - 48.1 fL ANDREA CASTILLO Comment:Testing performed by : [address] [address] Blood 09/02/2022 9:35 AM CYBER OPERATOR 09/02/2022 9:37 AM CYBER OPERATOR Vick Martinez DO LAB BLOOD ORDERABLES Final R esult ANDREA [address] [facility] [place] [address] * Gastrin (09/02/2022 9:35 AM CYBER OPERATOR) [facility] Gastrin <10 pg/mL ANDREA CASTILLO Comment: REFERENCE VALUE <100 Reference ranges valid for >= 8 hour fast. Test Performed by: [facility] [address] [place] [address] Acupuncture Physician: Bjorn Morris M.D. Ph.D.; CLIA# [id number] Testing performed by: [address] [address] Blood 09/02/2022 9:35 AM CYBER OPERATOR 09/02/2022 9:37 AM CYBER OPERATOR Vick Martinez DO LAB BLOOD ORDERABLES Final R esult ANDREA [address] [facility] [place] [address] * Chromogranin A (09/02/2022 9:35 AM CYBER OPERATOR) Chromogranin A 24 <93 ng/mL ANDREA CASTILLO Comment: ADDITIONAL INFORMATION This test was developed and its performance characteristics determined by [facility] in a manner consistent with CLIA requirements. [...] a homogeneous time-resolved immunofluorescent assay manufactured by [employer] and performed on the [facility] Kryptor Compact Plus. ? Values obtained with different assay methods or kits may be different and cannot be used interchangeably. ? Test results cannot be interpreted as absolute evidence for the presence or absence of malignant disease. Test Performed by: [address] [address] Acupuncture Physician: Bjorn Morris M.D. Ph.D.; CLIA# [id number] Testing performed by: [address] [address] Blood 09/02/2022 9:35 AM CYBER OPERATOR 09/02/2022 9:37 AM CYBER OPERATOR us Vick Martinez DO LAB BLOOD ORDERABLES Final R esult [facility] [address] [facility] [place] [address] * Comprehensive metabolic panel (08/05/2022 10:12 AM CDT) Pathologist [facility] Sodium 138 135 - 145 mmol/L ANDREA Comment:Testing performed by : [address] [address] Potassium, pl 4.3 3.3 - 4.9 mmol/L ANDREA Comment:Testing performed by : [address] [address] Chloride 101 97 - 110 mmol/L ANDREA Comment:Testing performed by : [address] [address] CO2 31 22 - 32 mmol/L ANDREA Comment:Testing performed by : [address] [address] Anion gap 6 2 - 15 mmol/L ANDREA Comment:Testing performed by : [address] [address] BUN 14 8 - 25 mg/dL ANDREA Comment:Testing performed by : [address] [address] Creatinine 0.70 0.60 - 1.10 mg/dL ANDREA Comment:Testing performed by : [address] [address] Glucose 102 70 - 199 mg/dL ANDREA [...] was last revised 2017. Testing performed by: [address] [address] Calcium 9.3 8.5 - 10.3 mg/dL ANDREA Comment:Testing performed by : [address] [address] Bilirubin, total 0.5 0.1 - 1.2 mg/dL ANDREA Comment:Testing performed by : [address] [address] Protein, pl 7.6 6.5 - 8.5 g/dL ANDREA Comment:Testing performed by : [address] [address] Albumin 4.8 3.5 - 5.0 g/dL ANDREA Comment:Testing performed by : [address] [address] Alk phos 60 40 - 130 Units/L ANDREA Comment:Testing performed by : [address] [address] ALT 25 7 - 45 Units/L ANDREA Comment:Testing performed by : [address] [address] AST 24 10 - 45 Units/L ANDREA Comment:Testing performed by : [address] [address] Blood 08/05/2022 10:1 2 AM CDT 08/05/2022 10:14 AM CDT us Vick Martinez DO LAB BLOOD ORDERABLES Final R esult ANDREA CASTILLO [address] [facility] [place] [address] * (ABNORMAL) CBC with auto differential (08/05/2022 10:12 AM CDT) WBC 3.1(L) 3.8 - 9.9 K/cumm ANDREA CASTILLO Comment:Testing performed by : [address] [address] Hgb 12.4 11.9 - 15.5 g/dL ANDREA Comment:Testing performed by : [address] [address] Hct 37.3 35.6 - 45.5 % ANDREA Comment:Testing performed by : [address] [address] Plt 240 150 - 400 K/cumm ANDREA Comment:Testing performed by : [address] [address] MPV 9.5 9.1 - 12.3 fL ANDREA Comment:Testing performed by : [address] [address] RBC 4.20 3.90 - 5.20 M/cumm ANDREA Comment:Testing performed by : [address], [address] MCV 88.8 81.3 - 96.4 fL ANDREA Comment:Testing performed by : [address] [address] MCH 29.5 27.1 - 33.3 pg ANDREA Comment:Testing performed by : [address] [address] MCHC 33.2 32.3 - 35.7 g/dL ANDREA Comment:Testing performed by : [address] [address] RDW CV 12.0 11.1 - 14.9 % ANDREA Comment:Testing performed by : [address] [address] RDW SD 38.8 35.7 - 48.1 fL ANDREA Comment:Testing performed by : [address] [address] Blood 08/05/2022 10:1 2 AM CDT 08/05/2022 10:14 AM CDT Vick Martinez DO LAB BLOOD ORDERABLES Final R esult Performing Organization Address [facility] de Phone Number ANDREA [address] [facility] [employer] [place] [address] * Gastrin (08/05/2022 10:12 AM CDT) Gastrin <10 pg/mL [facility] Comment: REFERENCE VALUE <100 Reference ranges valid for >= 8 hour fast. Test Performed by: [place] [address] Acupuncture Physician: Bjorn Morris M.D. Ph.D.; CLIA# [id number] Testing performed by: [facility], [address] [place] [address]., [address] Blood 08/05/2022 10:1 2 AM CDT 08/05/2022 10:14 AM CDT Vick Perezi [employer] LAB BLOOD ORDERABLES Final R [facility] Performing Organization Address [facility] de Phone Number ANDREA [facility] [place] [address] * Chromogranin A (08/05/2022 10:12 AM CDT) Chromogranin A 24 <93 ng/mL [facility] Comment: ADDITIONAL INFORMATION This test was developed and its performance characteristics determined by [facility] in a manner consistent with CLIA requirements. [...] a homogeneous time-resolved immunofluorescent assay manufactured by [employer] and performed on the [facility] Kryptor Compact Plus. ? Values obtained with different assay methods or kits may be different and cannot be used interchangeably. ? Test results cannot be interpreted as absolute evidence for the presence or absence of malignant disease. Test Performed by: [facility] [address] [place] [address] Acupuncture Physician: Bjorn Morris M.D. Ph.D.; CLIA# [id number] Testing performed by: [facility], [address] [place] [address]., [address] Blood 08/05/2022 10:1 2 AM CDT 08/05/2022 10:14 AM CDT Vick Martinez DO LAB BLOOD ORDERABLES Final R esult Performing Organization Address City/State/[facility] Co de Phone Number MAYINER [address] [facility] [place] [address] documented in this encounter Visit Diagnoses Diagnosis Malignant carcinoid tumor of stomach (HCC)- Primary Malignant carcinoid tumor of the stomach documented in this encounter Orders Appointment Requests Count Last Ordered Date Fi rst Ordered Date ONCBCN CLINIC APPOINTMENT REQUEST 2 022 07/08/2022 ONCBCN INJECTION APPOINTMENT REQUEST 3 09/1708/05/2022 ONCBCN LAB APPOINTMENT 3 09/30/202208/05 documented in this encounter Care Teams Storekeeper Engineering Relationship Specialty Start Date End Date Elizabeth Borrego PA [address] [address] PCP - General Internal Medicine 03/25/20 09/27/23 Luann Lawrence NP Nurse Practitioner Nurse Practitioner 01/06/19 Adarsh Tuttle MD [address] [place] [address] Consulting Physician Gastroenterology 02/22/19 Vick Martinez DO [facility]8 [facility] [address] [place] [address] Medical Oncologist/Rooming House Operator Hematology and Oncology 02/22/19 Guru Winters DO [facility] [address] Consulting Physician Gastroenterology 02/22/19 Gato Abrams MD [address] [place] [address] Surgeon Surgical Oncology 09/07/19 Marina Rosales MD [address] [facility] [address] [place], [place] [address] Consulting Physician General Surgery 03/24/21 documented as of this encounter"
--- OUTSIDE RECORDS SUMMARY | 2024-10-04 02:59 | XMS_ITS | Encounter Summary ---
Author Organization [facility] Address [address] [place] [address] Phone Care Team Providers Care Optics Technical Officer Name Role Phone MelindaLuann oh Aditya HEBERT Unavailable [phone] Adarsh Tuttle MD Unavailable [phone] Sebastien Martinez DO Unavailable [phone] Guru Winters DO Unavailable [phone] Gato Abrams MD Unavailable [phone] Elizabeth Borrego Primary Care Provider [phone] Marina Rosales MD Unavailable [phone] Reason for Visit * Episode Based Medications (Routine) - Closed Specialty Diagnoses / Procedures Referred By Contjimmy t Referred To Contact Oncology Diagnoses Malignant carcinoid tumor of stomach (HCC) Procedures RI OCTREOTIDE INJECTION, DEPOT Sebastien Martinez, [facility] [address] Phone: tel: fax: [facility] Oncology [address] [address] Phone: tel: fax: Referral ID Status Reason Start Date Expiration Date Visits Re quested Visits Authorized [id number] Closed 2022 02/19/2023 1 50 Encounter Details Date Type Department Care Team (Late st Contact Info) Description 09/30/2022 9:45 AM ELECTRONIC PUBLISHING SPECIALIST Lab [facility] Oncology [address] [facility] [address] [place] [address] Malignant carcinoid tumor of stomach [...] on file 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:22 AM ELECTRONIC PUBLISHING SPECIALIST Gender Identity Female 06/07/2020 8:39 AM CDT Sexual Orientation Not on file 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[place] Not on file Not on file Not on file documented as of this encounter Plan of Treatment Not on file documented as of this encounter Visit Diagnoses Diagnosis Malignant carcinoid tumor of stomach (HCC) Malignant carcinoid tumor of the stomach documented in this encounter Orders Appointment Requests Count Last Ordered Date Fi rst Ordered Date ONCBCN LAB APPOINTMENT 1 09/30/2022 documented in this encounter Care Teams Optics Technical Officer Relationship Specialty Start Date End Date Elizabeth Borrego PA [address] [address] PCP - General Internal Medicine 03/25/20 09/27/23 Luann Lawrence NP Nurse Practitioner Nurse Practitioner 01/06/19 Adarsh Tuttle MD [address] [facility] [address] [place] [address] Consulting Physician Gastroenterology 02/22/19 Sebastien Martinez DO [address] [place] [address] Medical Oncologist/Pbx Installer Hematology and Oncology 02/22/19 Guru Winters DO [address] [place] [place] [address] Consulting Physician Gastroenterology 02/22/19 Gato Abrams MD [address] [place] [place] [address] Surgeon Surgical Oncology 09/07/19 Marina Rosales MD [address] [facility] [address] [place] [address] Consulting Physician General Surgery 03/24/21 documented as of this encounter
--- OUTSIDE RECORDS SUMMARY | 2024-10-04 03:00 | XMS_ITS | Encounter Summary ---
Author Organization [facility] Address [address] [place] [address] Phone Care Team Providers Care Bark Spudder Name Role Phone MelindaLuann oh ANUP Unavailable [phone] Adarsh Tuttle MD Unavailable [phone] Sebastien Martinez DO Unavailable [phone] Guru Winters DO Unavailable [phone] Gato Abrams MD Unavailable [phone] Elizabeth Borrego Primary Care Provider [phone] Marina Rosales MD Unavailable [phone] Reason for Referral * Diagnostic Imaging (Routine) - Closed Specialty Diagnoses / Procedures Referred By Contac t Referred To Contact Radiology Diagnoses Malignant carcinoid tumor of stomach (HCC) Procedures CT Abdomen Pelvis W WO Contrast Gato Abrams MD Phone: tel: fax: [address] [address] Referral ID Status Reason Start Date Expiration Date Visits Re quested Visits Authorized [id number] Closed 12/03/2021 01/02/2023 1 1 MAN Encounter Details Date Type Department Care Team (Latest Contact Info) Description 12/03/[address] [facility] Department of Hepatobiliary, Pancreatic, & Gastrointestinal Surgery [address] [facility] [place] 12th Floor, [place] [phone] Gato Abrams MD [id number] [place] [address] Malignant carcinoid tumor of stomach (CMS/HCC) (HCC) [...] containing alc ohol? 2-4 times a month 04/07/2021 Q2: How many drinks containi ng alcohol do you have on a typical day when you are drinking? 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 ??Stable 6 mm enhancing lesion within the uncinate process the pancreas, which may represent a small neuroendocrine tumor. 2. ??Stable lung base pulmonary nodules. 3. ??No evidence of progression of disease within the abdomen or pelvis. Electronically signed by: Olu Ahn MD Narrative 03/30/2022 12:52 PM CDT EXAMINATION: ??Computed tomography of the abdomen and pelvis with and without intravenous contrast HISTORY: 56-year-old female with history of malignant carcinoid tumor the stomach status post laparoscopic distal gastrectomy with Billroth II gastrojejunostomy (08/23/2019) TECHNIQUE: ??Transaxial computed tomographic images of the abdomen and pelvis were obtained prior to and after intravenous contrast according to the standard protocol after the uneventful administration of 119 mL Opti-Ray 350 intravenous contrast. COMPARISON: Multiple priors, most recent CT abdomen pelvis with contrast dated 10/06/2021 FINDINGS: Lines: None. An unchanged 5 mm groundglass nodule seen in the right lung base (series 6 image 9). The imaged heart size is within normal limits. No pericardial effusion is seen. The liver enhances homogenously without focal mass/lesion. ??No surface nodularity is identified to suggest cirrhosis. The main portal vein and hepatic veins are patent. The gallbladder is normal. No intrahepatic biliary dilatation is identified. ??Mild extrahepatic biliary dilatation with the common bile duct measuring up to 8 mm is unchanged. The spleen is normal. A stable 6 mm hyperenhancing observation the pancreatic uncinate process is noted (series 5 image 82). The adrenal glands are normal bilaterally. Subcentimeter hypodensities in the kidneys are too small to characterize, favoring simple cysts. No nephrolithiasis is seen. No hydronephrosis is present. No hydroureter is noted. The esophagus is within normal limits. ??Postoperative changes from distal gastrectomy and Billroth II gastrojejunostomy noted. ??No evidence of residual/recurrent disease is noted in the surgical bed. The large and small bowel are normal in course and caliber without evidence of obstruction. The appendix is normal. No ascites is present. No free intraperitoneal air is seen. No mesenteric or retroperitoneal lymphadenopathy is identified. The urinary bladder is distended with fluid and demonstrates no acute abnormality. ??The uterus is normal in appearance. No adnexal mass is present. ??No free pelvic fluid is identified. ??No pelvic or inguinal lymphadenopathy is noted. The abdominal aorta is normal in course and caliber. The soft tissues are within normal limits. No lytic or blastic lesions are identified. ??The osseous structures are intact. Procedure Note Olu Ahn MD - 03/30/2022 EXAMINATION: Computed tomography of the abdomen and pelvis with and without intravenous contrast HISTORY: 56-year-old female with history of malignant carcinoid tumor the stomach status post laparoscopic distal gastrectomy with Billroth II gastrojejunostomy (08/23/2019) TECHNIQUE: Transaxial computed tomographic images of the abdomen and pelvis were obtained prior to and after intravenous contrast according to the standard protocol after the uneventful administration of 119 mL Opti-Ray 350 intravenous contrast. COMPARISON: Multiple priors, most recent CT abdomen pelvis with contrast dated 10/06/2021 FINDINGS: Lines: None. An unchanged 5 mm groundglass nodule seen in the right lung base (series 6 image 9). The imaged heart size is within normal limits. No pericardial effusion is seen. The liver enhances homogenously without focal mass/lesion. No surface nodularity is identified to suggest cirrhosis. The main portal vein and hepatic veins are patent. The gallbladder is normal. No intrahepatic biliary dilatation is identified. Mild extrahepatic biliary dilatation with the common bile duct measuring up to 8 mm is unchanged. The spleen is normal. A stable 6 mm hyperenhancing observation the pancreatic uncinate process is noted (series 5 image 82). The adrenal glands are normal bilaterally. Subcentimeter hypodensities in the kidneys are too small to characterize, favoring simple cysts. No nephrolithiasis is seen. No hydronephrosis is present. No hydroureter is noted. The esophagus is within normal limits. Postoperative changes from distal gastrectomy and Billroth II gastrojejunostomy noted. No evidence of residual/recurrent disease is noted in the surgical bed. The large and small bowel are normal in course and caliber without evidence of obstruction. The appendix is normal. No ascites is present. No free intraperitoneal air is seen. No mesenteric or retroperitoneal lymphadenopathy is identified. The urinary bladder is distended with fluid and demonstrates no acute abnormality. The uterus is normal in appearance. No adnexal mass is present. No free pelvic fluid is identified. No pelvic or inguinal lymphadenopathy is noted. The abdominal aorta is normal in course and caliber. The soft tissues are within normal limits. No lytic or blastic lesions are identified. The osseous structures are intact. IMPRESSION: 1. Stable 6 mm enhancing lesion within the uncinate process the pancreas, which may represent a small neuroendocrine tumor. 2. Stable lung base pulmonary nodules. 3. No evidence of progression of disease within the abdomen or pelvis. Electronically signed by: Olu Ahn MD Gato Abrams MD IMG CT PROCEDURES Final Result documented in this encounter Visit Diagnoses Diagnosis Malignant carcinoid tumor of stomach (HCC)- Primary Malignant carcinoid tumor of the stomach Malignant carcinoid tumor of stomach (HCC) Malignant carcinoid tumor of the stomach documented in this encounter Care Teams Bark Spudder Relationship Specialty Start Date End Date Elizbaeth Borrego PA [address] [place], [place] [id number] PCP - General Internal Medicine 03/25/20 09/27/23 Luann Lawrence, ANUP Nurse Practitioner Nurse Practitioner 01/06/19 Adarsh Tuttle MD [address] [facility] [address] [place] [address] Consulting Physician Gastroenterology 02/22/19 Sebastien Martinez DO [address] [address] Medical Oncologist/Clinical Radiologist Hematology and Oncology 02/22/19 Guru Winters DO [address] [address] Consulting Physician Gastroenterology 02/22/19 Gato Abrams MD [address] [address] Surgeon Surgical Oncology 09/07/19 Marina Rosales MD [address] [place] [address] Consulting Physician General Surgery 03/24/21 documented as of this encounter
--- OUTSIDE RECORDS SUMMARY | 2024-10-04 03:00 | XMS_ITS | Encounter Summary ---
Author Organization [facility] Address [address] [facility] [address] [place] [address] Care Team Providers Care Refractory Specialist Name Role Phone Melinda Luann Burgess NP Unavailable Adarsh Tuttle MD Unavailable [phone] Sebastien Martinez DO Unavailable [phone] Guru Winters DO Unavailable [phone] Gato Abrams MD Unavailable [phone] Elizabeth Borrego Primary Care Provider [phone] Marina Rosales MD Unavailable [phone] Encounter Details Date Type Department Care Team (Late st Contact Info) Description 03/24/2022 Orders Only [facility] Information Management [address] [place] [address] Scanning, Provider Social History Tobacco Use Types [...] on file 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:22 AM FOOD PROCESSING 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 Gender Identity Female 06/07/2020 8:39 AM CDT Sexual Orientation Not on file 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 Not on file Not on file documented as of this encounter Plan of Treatment Not on file documented as of this encounter Procedures Procedure Name Priority Date/Time Associated Diagnosis Comments SCAN - LABS 03/24/2022 documented in this encounter Results * SCAN - LABS (03/24/2022) us Provider Scanning Final Result documented in this encounter Visit Diagnoses Not on filedocumented in this encounter Care Teams Refractory Specialist Relationship Specialty Start Date End Date Elizabeth Borrego PA [address] [facility] [address] [place], [place] [id number] PCP - General Internal Medicine 03/25/20 09/27/23 Luann Lawrence, ANUP Nurse Practitioner Nurse Practitioner 01/06/19 Adarsh Tuttle MD [address] [facility] [address] [place] [address] Consulting Physician Gastroenterology 02/22/19 Sebastien Martinez DO [address] [address] Medical Oncologist/Commercial Sewing Instructor Hematology and Oncology 02/22/19 Guru Winters DO [address] [address] Consulting Physician Gastroenterology 02/22/19 Gato Abrams MD 14[address] [facility] 180 [place] [address] Surgeon Surgical Oncology 09/07/19 Marina Rosales MD 10[address] [facility] 500 [place] [address] Consulting Physician General Surgery 03/24/21 documented as of this encounter
--- OUTSIDE RECORDS SUMMARY | 2024-10-04 03:00 | XMS_ITS | Encounter Summary ---
Author Organization [facility] Address [address] [place] [address] Phone Care Team Providers Care Warehouse Clerk Name Role Phone Luann Lawrence ANUP Unavailable [phone] Adarsh Tuttle MD Unavailable [phone] Sebastien Martinez DO Unavailable [phone] Guru Winters DO Unavailable [phone] Gato Abrams MD Unavailable [phone] Elizabeth Borrego Primary Care Provider [phone] Marina Rosales MD Unavailable [phone] Encounter Details Date Type Department Care Team (Late st Contact Info) Description 04/14/2022 Orders Only [facility] Physicians [facility] Oncology [address] 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 Gender Identity Female 06/07/2020 8:39 AM [...] stomach documented in this encounter Care Teams Warehouse Clerk Relationship Specialty Start Date End Date Elizabeth Borrego PA [address] [facility] 500 [place] [address] PCP - General Internal Medicine 03/25/20 09/27/23 Luann Lawrence NP Nurse Practitioner Nurse Practitioner 01/06/19 Adarsh Tuttle MD [address] [facility] 210 [place] [address] Consulting Physician Gastroenterology 02/22/19 Sebastien Martinez DO [address] [place] [address] Medical Oncologist/Workcell Operator Hematology and Oncology 02/22/19 Guru Winters DO [address] [place] [address] Consulting Physician Gastroenterology 02/22/19 Gato Abrams MD [address] [place] [address] 180 [place] [address] Surgeon Surgical Oncology 09/07/19 Marina Rosales MD 10[address] [facility] [place] 500 [place], [place] [address] Consulting Physician General Surgery 03/24/21 documented as of this encounter
--- OUTSIDE RECORDS SUMMARY | 2024-10-04 03:00 | XMS_ITS | Encounter Summary ---
Author Organization [facility] Address [address] [place] [address] Care Team Providers Care Forms Analysis Manager Name Role Phone Luann Lawrence NP Unavailable [phone] Adarsh Tuttle MD Unavailable [phone] Sebastien Martinez DO Unavailable Guru Winters DO Unavailable [phone] Gato Abrams MD Unavailable Elizabeth Borrego Primary Care Provider [phone] Marina Rosales MD Unavailable [phone] Reason for Visit * Diagnostic Imaging (Routine) - Closed Specialty Diagnoses / Procedures Referred By Contjimmy t Referred To Contact Procedures Breast Imaging Screening Outside Reference Miscellaneous, Not In File Referral ID Status Reason Start Date Expiration Date Visits Re quested Visits Authorized [id number] Closed 03/30/2023 04/28/2024 1 1 Encounter Details Date Type Department Care Team (Latest Contact Info) Description 11/26/2021 - 11/26/2021 11:59 PM TICKER MAINTAINER Hospital Encounter [facility] - Imaging [phone] Discharge Disposition: Discharge to home or self [...] on file 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:22 AM TICKER MAINTAINER Gender Identity Female 06/07/2020 8:39 AM CDT Sexual Orientation Not on file 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 Not on file Not on file documented as of this encounter Medications at Time of Discharge cholecalciferol (VITAMIN D-3) 1,000 unit capsuleIndicatio ns:Vitamin D Deficiency Take 2 capsules (2,000 Units total) by mouth limousine rental clerk before breakfast buPROPion XL (WELLBUTRIN XL) 150 mg 24 hr tabletIndication s:Moderate episode of recurrent major depressive disorder (HCC) TAKE 1 TABLET BY MOUTH IN THE MORNING 90 tablet 3 10/26/2021 3 cyanocobalamin (Vitamin B-12) 1,000 mcg/mL injection Inject 1 mL (1,000 mcg total) into the muscle as instructed every 30 (thirty) days 3 mL 2 01/09/2021 2 escitalopram (LEXAPRO) 10 mg tabletIndication s:Moderate episode of recurrent major depressive disorder (HCC) TAKE 1 TABLET BY MOUTH IN THE MORNING 90 tablet 3 10/26/2021 3 hydroxychloroqui ne (PLAQUENIL) 200 mg tabletIndication s:Arthritis Take 1 tablet (200 mg total) by mouth limousine rental clerk before breakfast 01/30/2019 3 multivitamin capsuleIndicatio ns:Vitamin Deficiency Prevention Take 1 capsule by mouth limousine rental clerk before breakfast 4 octreotide (SandoSTATIN) 100 mcg/mL injection 1 mL every 8 hours 3 pravastatin (PRAVACHOL) 40 mg tabletIndication s:Dyslipidemia TAKE 1 TABLET BY MOUTH IN THE MORNING 90 tablet 3 10/26/2021 3 valsartan-hydroC HLOROthiazide (DIOVAN-HCT) 80-12.5 mg per tabletIndication s:hypertension TAKE 1 TABLET BY MOUTH DAILY 90 tablet 3 11/12/2021 2 documented as of this encounter Discharge Disposition Disposition Code Departure Means Destination Discharge to home or self care documented in this encounter Plan of Treatment Not on file documented as of this encounter Procedures Procedure Name Priority Date/Time Associated Diagnosis Comments BREAST IMAGING MG SCREENING OUTSIDE REFERENCE Routine 11/26/2021 12:00 AM TICKER MAINTAINER documented in this encounter Results * Breast Imaging Screening Outside Reference (11/26/2021 12:00 AM TICKER MAINTAINER) Narrative RAD_PACS_OUTSIDE_FILM_MB - 03/30/2023 9:28 AM CDT This order has been auto-finalized and does not contain a result. us Not In File Miscellaneous IMG MAMMO PROCEDURES F inal Result RAD_PACS_OUTSIDE_FILM_MB documented in this encounter Visit Diagnoses Not on filedocumented in this encounter Care Teams Forms Analysis Manager Relationship Specialty Start Date End Date Elizabeth Borrego PA [address] [facility] [address] [place] [address] PCP - General Internal Medicine 03/25/20 09/27/23 Luann Lawrence NP Nurse Practitioner Nurse Practitioner 01/06/19 Adarsh Tuttle MD [address] [facility] [address] [place] [address] Consulting Physician Gastroenterology 02/22/19 Sebastien Martinez DO [address] [facility] 180 [place] [address] Medical Oncologist/Guide Dog Instructor Hematology and Oncology 02/22/19 Guru Winters DO [facility] [address] Consulting Physician Gastroenterology 02/22/19 Gato Abrams MD [facility] [address] Surgeon Surgical Oncology 09/07/19 Marina Rosales MD [address] [facility] 500 [place], [place] [id number] Consulting Physician General Surgery 03/24/21 documented as of this encounter
--- OUTSIDE RECORDS SUMMARY | 2024-10-04 03:00 | XMS_ITS | Encounter Summary ---
Author Organization [facility] Address [address] [place] [address] Phone Care Team Providers Care Icu Nurse Name Role Phone MelindaLuann oh ANUP Unavailable [phone] Adarsh Tuttle MD Unavailable [phone] Sebastien Martinez DO Unavailable [phone] Guru Winters DO Unavailable [phone] Gato Abrams MD Unavailable [phone] Elizabeth Borrego Primary Care Provider [phone] Marina Rsoales MD Unavailable [phone] Reason for Visit * Reason Comments Injections * Episode Based Medications (Routine) - Closed Specialty Diagnoses / Procedures Referred By Clemencia mendez Referred To Contact Oncology Diagnoses Malignant carcinoid tumor of stomach (HCC) Procedures [place] OCTREOTIDE INJECTION, DEPOT Sebastien Martinez DO [facility] [address] Phone: tel: fax: [facility] Physicians [facility] Oncology [address] [address] Phone: tel: fax: Referral ID Status Reason Start Date Expiration Date Visits Re quested Visits Authorized [id number] Closed 2022 02/19/2023 1 50 Encounter Details Date Type Department Care Team (Late st Contact Info) Description 12/24/2021 8:45 AM SOLARIS ADMINISTRATOR Infusion [facility] Oncology 14[address] [facility] [address] [place] [address] Malignant carcinoid tumor of stomach [...] on file 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:22 AM SOLARIS ADMINISTRATOR Gender Identity Female 06/07/2020 8:39 AM CDT Sexual Orientation Not on file 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 Not on file Not on file documented as of this encounter Last Filed Vital Signs Vital Sign Reading Time Taken Comments Blood Pressure 120/70 12/24/2021 8:31 AM SOLARIS ADMINISTRATOR Pulse 60 12/24/2021 8:31 AM SOLARIS ADMINISTRATOR Temperature - - Respiratory Rate - - Oxygen Saturation 96% 12/24/2021 8:31 AM SOLARIS ADMINISTRATOR Inhaled Oxygen Concentration - - Weight 71.5 kg (157 lb 9.6 oz) 12/24/2021 8:31 A M SOLARIS ADMINISTRATOR Height - - Body Mass Index 27.05 10/29/2021 9:36 AM SOLARIS ADMINISTRATOR documented in this encounter Nursing Notes * Martha Castellano RN - 12/24/2021 8:45 AM CST Pt tolerated the injection well. RIS ADMINISTRATOR documented in this encounter Plan of Treatment [...] 10 mg 10 mg, intramuscular, Once, On Wed12/24/21 at 0900, For 1 dose, Refrigerate. For IM intragluteal administration only- alternate gluteal sites. Shamir.Indications:Malignant carcinoid tumor of stomach (HCC) Given 12/24/2021 8:34 AM SOLARIS ADMINISTRATOR 10 mg Left Dorsogluteal/Butt ock documented in this encounter Orders Appointment Requests Count Last Ordered Date Fi rst Ordered Date ONCBCN INJECTION APPOINTMENT REQUEST 1 06/2022 documented in this encounter Care Teams Icu Nurse Relationship Specialty Start Date End Date Elizabeth Borrego PA [address] [facility] [address] [place] [address] PCP - General Internal Medicine 03/25/20 09/27/23 Luann Lawrence, ANUP Nurse Practitioner Nurse Practitioner 01/06/19 Adarsh Tuttle MD [address] [facility] [address] [place] [address] Consulting Physician Gastroenterology 02/22/19 Sebastien Martinez DO [address] [address] Medical Oncologist/Genetic Scientist Hematology and Oncology 02/22/19 [place] [address] [place] [address] Consulting Physician Gastroenterology 02/22/19 Gato Abrams MD 1418 [facility] [address] [place] [address] Surgeon Surgical Oncology 09/07/19 Marina Rosales MD 1095 [facility] 500 [place] [address] Consulting Physician General Surgery 03/24/21 documented as of this encounter
--- OUTSIDE RECORDS SUMMARY | 2024-10-04 03:00 | XMS_ITS | Encounter Summary ---
Author Organization [facility] Address [address] [place] [address] Care Team Providers Care General Assembler Name Role Phone Luann Lawrence NP Unavailable [phone] Adasrh Tuttle MD Unavailable [phone] Sebastien Martinez DO Unavailable [phone] Guru Winters DO Unavailable [phone] Gato Abrams MD Unavailable Elizabeth Borrego Primary Care Provider [phone] Marina Rosales MD Unavailable [phone] Reason for Referral * Diagnostic Imaging (Routine) - Closed Specialty Diagnoses / Procedures Referred By Contac t Referred To Contact Diagnoses Right knee pain, unspecified chronicity Procedures XR Knee Right 3 View Jason Barber IV, MD Phone: tel: fax: [facility] Referral ID Status Reason Start Date Expiration Date Visits Re quested Visits Authorized [id number] Closed 03/04/2022 04/03/2023 1 1 Reason for Visit * Diagnostic Imaging (Routine) - Closed Specialty Diagnoses / Procedures Referred By Contac t Referred To Contact Diagnoses Right knee pain, unspecified chronicity Procedures XR Knee Right 3 View Jason Barber IV, MD Phone: tel: fax: [facility] Referral ID Status Reason Start Date Expiration Date Visits Re quested Visits Authorized [id number] Closed 03/04/2022 04/03/2023 1 1 Encounter Details Date Type Department Care Team (Latest Contact Info) Description 03/12/2022 9:39 AM CDT - 03/12/2022 9:47 AM CDT Hospital Encounter [facility] [address] [place], [place] [id number] Right knee pain, unspecified chronicity Discharge Disposition: Discharge to home or self [...] on file 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 Gender Identity Female 06/07/2020 8:39 AM CDT Sexual Orientation Not on file 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 Not on file Not on file documented as of this encounter Medications at Time of Discharge cholecalciferol (VITAMIN D-3) 1,000 unit capsuleIndicati ons:Vitamin D Deficiency Take 2 capsules (2,000 Units total) by mouth sheet metal assembler and riveter before breakfast buPROPion XL (WELLBUTRIN XL) 150 [...] 1 tablet (200 mg total) by mouth sheet metal assembler and riveter before breakfast 01/30/2019 09/30/20 23 multivitamin capsuleIndicati ons:Vitamin Deficiency Prevention Take 1 capsule by mouth sheet metal assembler and riveter before breakfast 04/14/20 24 octreotide (SandoSTATIN) 100 [...] VIEWS Schedule Routine, Read Routine (OP Routine) 03/12/2022 9:48 AM CDT Right knee pain, unspecified chronicity documented in this encounter Results * XR Knee Right 3 View (03/12/2022 9:48 AM CDT) Anatomical Region Laterality Modality Lower Extremities, Knee Right Computed Radiography 03/12/2022 10:0 8 AM CDT Impressions 03/12/2022 10:08 AM CDT 1. Minimal right knee medial and patellofemoral compartment osteoarthritis with small joint effusion. Electronically signed by: Andrew Avila M.D. Narrative 03/12/2022 10:08 AM CDT EXAM: 1. ??XR KNEE RIGHT 3 VIEWS HISTORY: Right knee pain COMPARISON: None FINDINGS: 3 radiographs of the right knee including bilateral PA Manuel and tangential patellar views are submitted for interpretation. No acute fracture. Alignment is normal. Minimal medial and patellofemoral compartment osteoarthritis. There is small intra-articular body within the intercondylar notch. There is a small knee joint effusion. Procedure Note Andrew Avila MD - 03/12/2022 EXAM: 1. XR KNEE RIGHT 3 VIEWS HISTORY: Right knee pain COMPARISON: None FINDINGS: 3 radiographs of the right knee including bilateral PA Manuel and tangential patellar views are submitted for interpretation. No acute fracture. Alignment is normal. Minimal medial and patellofemoral compartment osteoarthritis. There is small intra-articular body within the intercondylar notch. There is a small knee joint effusion. IMPRESSION: 1. Minimal right knee medial and patellofemoral compartment osteoarthritis with small joint effusion. Electronically signed by: Andrew Avila M.D. Jason Barber IV, MD IMG XR PROCEDURES Fin al Result documented in this encounter Visit Diagnoses Diagnosis Right knee pain, unspecified chronicity documented in this encounter Care Teams General Assembler Relationship Specialty Start Date End Date Elizabeth Borrego PA [address] [facility] [address] [place] [address] PCP - General Internal Medicine 03/25/20 09/27/23 Luann Lawrence NP Nurse Practitioner Nurse Practitioner 01/06/19 Adarsh Tuttle MD [address] [facility] [address] [place] [address] Consulting Physician Gastroenterology 02/22/19 Sebastien Martinez DO [address] [address] Medical Oncologist/Human Resources Team Member Hematology and Oncology 02/22/19 Guru Winters DO [address] [place] [address] Consulting Physician Gastroenterology 02/22/19 Gato Abrams MD [address] [place] [address] Surgeon Surgical Oncology 09/07/19 Marina Rosales MD 1095 [facility] 500 [place] [address] Consulting Physician General Surgery 03/24/21 documented as of this encounter
--- OUTSIDE RECORDS SUMMARY | 2024-10-04 03:00 | XMS_ITS | Encounter Summary ---
Author Organization [facility] Address [address] [place] [address] Care Team Providers Care Hand Fabric Cutter Name Role Phone Luann Lawrence NP Unavailable [phone] Adarsh Tuttle MD Unavailable Sebastien Martinez DO Unavailable [phone] Guru Winters DO Unavailable [phone] Gato Abrams MD Unavailable Elizabeth Borrego Primary Care Provider [phone] Marina Rosales MD Unavailable [phone] Reason for Visit * Episode Based Medications (Routine) - Closed Specialty Diagnoses / Procedures Referred By Clemencia mendez Referred To Contact Oncology Diagnoses Malignant carcinoid tumor of stomach (HCC) Procedures [place] OCTREOTIDE INJECTION, DEPOT Sebastien Martinez DO [facility] [address] Phone: tel: fax: [facility] Oncology [address] [address] Phone: tel: fax: Referral ID Status Reason Start Date Expiration Date Visits Re quested Visits Authorized [id number] Closed 2022 02/19/2023 1 50 Encounter Details Date Type Department Care Team (Late st Contact Info) Description 12/24/2021 8:15 AM COPY MESSENGER Lab 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 Not on file Not on file documented as of this encounter Plan of Treatment Not on file documented as of this encounter Procedures Procedure Name Priority Date/Time Associated Diagnosis Comments EGFR Routine 12/24/2021 8:18 AM COPY MESSENGER Malignant carcinoid tumor of stomach (CMS/HCC) (HCC) DIFFERENTIAL AUTO STAT 12/24/2021 8:1 8 AM COPY MESSENGER Malignant carcinoid tumor of stomach (CMS/HCC) (HCC) CHROMOGRANIN A Routine 12/24/2021 8:18 AM COPY MESSENGER Malignant carcinoid tumor of stomach (CMS/HCC) (HCC) CBC WITH AUTO DIFFERENTIAL STAT 12/24/2021 8:18 AM COPY MESSENGER Malignant carcinoid tumor of stomach (CMS/HCC) (HCC) GASTRIN Routine 12/24/2021 8:18 AM COPY MESSENGER Malignant carcinoid tumor of stomach (CMS/HCC) (HCC) COMPREHENSIVE METABOLIC PANEL Routine 12/24/2021 8:18 AM COPY MESSENGER Malignant carcinoid tumor of stomach (CMS/HCC) (HCC) documented in this encounter Results * eGFR (12/24/2021 8:18 AM COPY MESSENGER) eGFR 102 mL/min/1. 73 m2 ANDREA CASTILLO [...] was last reviewed 2021. Testing performed by: [facility], [address] [place] [address], [place]., [address] Blood 12/24/2021 8:18 AM COPY MESSENGER 12/24/2021 8:19 AM COPY MESSENGER us Sebastien Martinez DO LAB BLOOD ORDERABLES Final R esult ANDREA [address] [facility] Department [place] [address] * Differential, auto (12/24/2021 8:18 AM COPY MESSENGER) Neutrophil abs 2.6 1.7 - 6.5 K/cumm ANDREA Comment:Testing performed by : [address] [address] Lymphocyte abs 1.0 0.8 - 3.3 K/cumm ANDREA Comment:Testing performed by : [address] [address] Monocyte abs 0.2 0.2 - 0.8 K/cumm ANDREA Comment:Testing performed by : [address] [address] Eosinophil abs 0.2 0.0 - 0.5 K/cumm ANDREA Comment:Testing performed by : [address] [address] Neutrophil pct 64.3 % ANDREA Comment: Interpretive Data Percent cell count reference ranges are not reported, since discordance with absolute values may lead to misinterpretation of CBC data. Current Interpretive Data was last revised on 2018. Testing performed by: [address] [address] Imm gran pct 0.5 % ANDREA Comment: Interpretive Data Percent cell count reference ranges are not reported, since discordance with absolute values may lead to misinterpretation of CBC data. Current Interpretive Data was last revised on 2018. Testing performed by: [address] [address] Lymphocyte pct 24.5 % [facility] Comment: Interpretive Data Percent cell count reference ranges are not reported, since discordance with absolute values may lead to misinterpretation of CBC data. Current Interpretive Data was last revised on 2018. Testing performed by: [address] [address] Monocyte pct 5.7 % [facility] Comment: Interpretive Data Percent cell count reference ranges are not reported, since discordance with absolute values may lead to misinterpretation of CBC data. Current Interpretive Data was last revised on 2018. Testing performed by: [address] [address] Eosinophil pct 4.0 % [facility] Comment: Interpretive Data Percent cell count reference ranges are not reported, since discordance with absolute values may lead to misinterpretation of CBC data. Current Interpretive Data was last revised on 2018. Testing performed by: [facility], [address] [place] [address]., [address] Basophil pct 1.0 % ANDREA Comment: Interpretive Data Percent cell count reference ranges are not reported, since discordance with absolute values may lead to misinterpretation of CBC data. Current Interpretive Data was last revised on 2018. Testing performed by: [facility], [address] [place] [address]., [address] Blood 12/24/2021 8:18 AM COPY MESSENGER 12/24/2021 8:19 AM COPY MESSENGER us Sebastien Martinez DO LAB BLOOD ORDERABLES Final R esult ANDREA [address] [facility] Department [place] [address] * Chromogranin A (12/24/2021 8:18 AM COPY MESSENGER) Chromogranin A 22 <93 ng/mL ANDREA Comment: ADDITIONAL INFORMATION This test was developed and its performance characteristics determined by [facility] in a manner consistent with CLIA [...] a homogeneous time-resolved immunofluorescent assay manufactured by [employer] and performed on the [employer] Compact Plus. ? Values obtained with different assay methods or kits may be different and cannot be used interchangeably. ? Test results cannot be interpreted as absolute evidence for the presence or absence of malignant disease. Test Performed by: [place] [address] Manager Of Marketing: Bjorn Morris M.D. Ph.D.; CLIA# [id number] Testing performed by: [address] [address] Blood 12/24/2021 8:18 AM COPY MESSENGER 12/24/2021 8:19 AM COPY MESSENGER Sebastien Martinez LAB BLOOD ORDERABLES Final R [facility] Performing Organization Address [facility] Co de Phone Number MAYI[address] [place] [address] * Gastrin (12/24/2021 8:18 AM COPY MESSENGER) [facility] Gastrin <10 pg/mL [facility] Comment: REFERENCE VALUE <100 Reference ranges valid for >= 8 hour fast. Test Performed by: [place] [address] Manager Of Marketing: Bjorn Morris M.D. Ph.D.; CLIA# [id number] Testing performed by: [address] [address] Blood 12/24/2021 8:18 AM COPY MESSENGER 12/24/2021 8:19 AM COPY MESSENGER Sebastien Martinez LAB BLOOD ORDERABLES Final [facility] Performing Organization Address [facility] de Phone Number MAYI[address] [place] [address] * CBC with auto differential (12/24/2021 8:18 AM COPY MESSENGER) [facility] WBC 4.0 3.8 - 9.9 K/cumm ANDREA Comment:Testing performed by : [address] [address] Hgb 12.6 11.9 - 15.5 g/dL ANDREA Comment:Testing performed by : [address] [address] Hct 37.2 35.6 - 45.5 % ANDREA Comment:Testing performed by : [address] [address] Plt 250 150 - 400 K/cumm ANDREA Comment:Testing performed by : [address] [address] MPV 9.4 9.1 - 12.3 fL ANDREA Comment:Testing performed by : [address], [address] RBC 4.28 3.90 - 5.20 M/cumm ANDREA Comment:Testing performed by : [address] [address] MCV 86.9 81.3 - 96.4 fL ANDREA Comment:Testing performed by : [address] [address] MCH 29.4 27.1 - 33.3 pg ANDREA Comment:Testing performed by : [address] [address] MCHC 33.9 32.3 - 35.7 g/dL ANDREA Comment:Testing performed by : [address], [address] RDW CV 11.9 11.1 - 14.9 % ANDREA Comment:Testing performed by : [address] [address] RDW SD 37.5 35.7 - 48.1 fL ANDREA Comment:Testing performed by : [address] [address] Blood 12/24/2021 8:18 AM COPY MESSENGER 12/24/2021 8:19 AM COPY MESSENGER Sebastien L. Michelle DO LAB BLOOD ORDERABLES Final R esult ANDREA [address] [facility] Department [place] [address] * Comprehensive metabolic panel (12/24/2021 8:18 AM COPY MESSENGER) Sodium 140 135 - 145 mmol/L ANDREA Comment:Testing performed by : [address] [address] Potassium, pl 4.4 3.3 - 4.9 mmol/L ANDREA Comment:Testing performed by : [address], [place]., [address] Chloride 103 97 - 110 mmol/L ANDREA Comment:Testing performed by : [address] [address] CO2 28 22 - 32 mmol/L ANDREA Comment:Testing performed by : [address] [address] Anion gap 9 2 - 15 mmol/L ANDREA Comment:Testing performed by : [address] [address] BUN 14 8 - 25 mg/dL ANDREA Comment:Testing performed by : [address] [address] Creatinine 0.70 0.60 - 1.10 mg/dL ANDREA Comment:Testing performed by : [address] [address] Glucose 113 70 - 199 mg/dL ANDREA Comment: Interpretive [...] was last revised 2017. Testing performed by: [address] [address] Calcium 9.9 8.5 - 10.3 mg/dL ANDREA Comment:Testing performed by : [address] [address] Bilirubin, total 0.5 0.1 - 1.2 mg/dL ANDREA Comment:Testing performed by : [address] [address] Protein, pl 7.2 6.5 - 8.5 g/dL ANDREA Comment:Testing performed by : [address] [address] Albumin 4.4 3.5 - 5.0 g/dL ANDREA Comment:Testing performed by : [address] [address] Alk phos 69 40 - 130 Units/L ANDREA Comment:Testing performed by : [address] [address] ALT 23 7 - 45 Units/L ANDREA Comment:Testing performed by : [address] [address] AST 25 10 - 45 Units/L ANDREA Comment:Testing performed by : [address] [address] Blood 12/24/2021 8:18 AM COPY MESSENGER 12/24/2021 8:19 AM COPY MESSENGER Sebastien Martinez DO LAB BLOOD ORDERABLES Final R esult Performing Organization Address City/State/[facility] Co de Phone Number ANDREA [address] [facility] Department [place] [address] documented in this encounter Visit Diagnoses Diagnosis Malignant carcinoid tumor of stomach (HCC) Malignant carcinoid tumor of the stomach documented in this encounter Orders Appointment Requests Count Last Ordered Date Fi rst Ordered Date ONCBCN LAB APPOINTMENT 1 12/24/2021 documented in this encounter Care Teams Hand Fabric Cutter Relationship Specialty Start Date End Date Elizabeth Borrego PA [address] [place] [address] PCP - General Internal Medicine 03/25/20 09/27/23 Luann Lawrence, ANUP Nurse Practitioner Nurse Practitioner 01/06/19 Adarsh Tuttle MD [address] [facility] [address] [place] [address] Consulting Physician Gastroenterology 02/22/19 Sebastien Martinez DO [address] [place] [address] Medical Oncologist/Channel Process Supervisor Hematology and Oncology 02/22/19 Guru Winters DO [address] [place] [address] Consulting Physician Gastroenterology 02/22/19 Gato Abrams MD [address] [place] [address] Surgeon Surgical Oncology 09/07/19 Marina Rosales MD [address] [facility] [address] [place], [place] [address] Consulting Physician General Surgery 03/24/21 documented as of this encounter
--- OUTSIDE RECORDS SUMMARY | 2024-10-04 03:00 | XMS_ITS | Encounter Summary ---
Author Organization [facility] Address [address] [place] [address] Phone Care Team Providers Care Lodge Sales Associate Name Role Phone Luann Lawrence ANUP Unavailable Adarsh Tuttle MD Unavailable [phone] Sebastien Martinez DO Unavailable [phone] Guru Winters DO Unavailable [phone] Gato Abrams MD Unavailable [phone] Elizabeth Borrego Primary Care Provider [phone] Marina Rosales MD Unavailable Encounter Details Date Type Department Care Team (Late st Contact Info) Description 02/17/2022 Orders Only [facility] Physicians [facility] Oncology [address] [facility] [address] [place] [phone] Sebastien Martinez DO [address] [facility] [address] [place] [address] Malignant carcinoid tumor of stomach (CMS/HCC) [...] on file 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 Gender Identity Female 06/07/2020 8:39 AM CDT Sexual Orientation Not on file 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 Not on file Not on file documented as of this encounter Plan of Treatment Not on file documented as of this encounter Visit Diagnoses Diagnosis Malignant carcinoid tumor of stomach (HCC)- Primary Malignant carcinoid tumor of the stomach documented in this encounter Care Teams Lodge Sales Associate Relationship Specialty Start Date End Date Elizabeth Borrego PA [address] [facility] 500 [place] [address] PCP - General Internal Medicine 03/25/20 09/27/23 Luann Lawrence NP Nurse Practitioner Nurse Practitioner 01/06/19 Adarsh Tuttle MD [address] [facility] 210 [place] [address] Consulting Physician Gastroenterology 02/22/19 Sebastien Martinez DO [address] [place] [address] Medical Oncologist/Head Setter Hematology and Oncology 02/22/19 Guru Winters DO [address] [place] [address] Consulting Physician Gastroenterology 02/22/19 Gato Abrams MD [address] [place] [address] [address] [place] [address] Surgeon Surgical Oncology 09/07/19 Marina Rosales MD 10[address] [facility] 500 [place], [place] [address] Consulting Physician General Surgery 03/24/21 documented as of this encounter
--- OUTSIDE RECORDS SUMMARY | 2024-10-04 03:00 | XMS_ITS | Encounter Summary ---
Author Organization [facility] Address [address] [place] [address] Phone Care Team Providers Care Mattress Packer Name Role Phone Luann Lawrence ANUP Unavailable [phone] Adarsh Tuttle MD Unavailable [phone] Vick Li DO Unavailable Guru Winters DO Unavailable [phone] Gato Abrams MD Unavailable [phone] Elizabeth Borrego Primary Care Provider [phone] Marina Rosales MD Unavailable Reason for Referral * MRI/CAT/PET Scan (Routine) - Closed Specialty Diagnoses / Procedures Referred By Contjimmy t Referred To Contact Radiology Diagnoses Malignant carcinoid tumor of stomach (HCC) Procedures PET/CT Dotatate Skull to Thigh Vick Li DO [address] [address] Phone: tel: fax: [address] [phone] Referral ID Status Reason Start Date Expiration Date Visits Re quested Visits Authorized [id number] Closed 04/15/2022 05/15/2023 2 2 Reason for Visit * Reason Comments Malignant carcinoid tumor of stomach Follow-up * Episode Based Medications (Routine) - Closed Specialty Diagnoses / Procedures Referred By Contac t Referred To Contact Oncology Diagnoses Malignant carcinoid tumor of stomach (HCC) Procedures WI OCTREOTIDE INJECTION, DEPOT Vick Li DO [address] [place] [address] Phone: tel: fax: [facility] [address] [place] [phone] Phone: tel: fax: Referral ID Status Reason Start Date Expiration Date Visits Re quested Visits Authorized [id number] Closed 2022 02/19/2023 1 50 Encounter Details Date Type Department Care Team (Late st Contact Info) Description 04/15/2022 8:15 AM CDT Office Visit [facility] [address] [place] [phone] Vick Li, DO [address] [place] [id number] Malignant carcinoid tumor of stomach (CMS/HCC) [...] on file 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 Gender Identity Female 06/07/2020 8:39 AM CDT Sexual Orientation Not on file 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 Not on file Not on file Not on file documented as of this encounter Last Filed Vital Signs Vital Sign Reading Time Taken Comments Blood Pressure 125/84 04/15/2022 8:20 AM CDT Pulse 61 04/15/2022 8:20 AM CDT Temperature 36.7 ??C (98 ??F) 04/15/2022 8:2 0 AM CDT Respiratory Rate 17 04/15/2022 8:20 AM CDT Oxygen Saturation 97% 04/15/2022 8:2 0 AM CDT Inhaled Oxygen Concentration - - Weight 72.8 kg (160 lb 6.4 oz) 04/15/2022 8:20 AM CDT weighed WO shoes Height 162.6 cm (5' 4 ) 04/15/2022 8:20 AM CDT Body Mass Index 27.53 04/15/2022 8:20 AM CDT documented in this encounter Progress Notes * Vick Li, - 04/15/2022 8:15 AM CDT Patient ID: Fabiola Gibson is a 56 y.o. female. Primary Care Provider: Elizabeth Borrego PA Assessment/Plan 1. 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 2. Pernicious anemia. 3. Localized pancreatic neuroendocrine tumor. Recommendations: 1. Based on recent CT scan, she still has stable 6 mm lesion in the pancreas. She either has stabledisease versus complete remission. 2. Therefore, patient will continue with once a month octreotide injections at 10 mg intramuscularly. 3. I will see the patient back in 3 months for follow-up. 4. I will plan on giving her 3 more months of octreotide injections before discontinue this. 5. After that, I will see her back here with a post treatment PET-CT scan gallium DOTATATE to document complete remission versus persistent disease. This PET-CT scan will give me information about whether I can safely stop the use injections versus continuing the injections. She still has this residual 6 mm lesion the pancreas which may or may not be active. 6. Patient will undergo repeat upper endoscopy by Dr. Tuttle in 2-3 weeks. My total encounter time on 04/15/2022 was 20 minutes which was spent in the activities documented inthe note. This includes time spent prior to the visit and after the visit in direct care of the patient. This time does not include time spent in any separately reportable services. Patient Active Problem List Diagnosis ??? Malignant carcinoid tumor of stomach (CMS/HCC) (HCC) ??? Carcinoid tumor of stomach ??? Pernicious anemia ??? Gastric carcinoma (HCC) ??? Iron deficiency anemia due to chronic blood loss ??? HTN (hypertension), benign ??? LBBB (left bundle branch block) ??? Palpitations ??? Premature atrial contractions ??? 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 Annual physical exam ??? Other fatigue ??? Breast cancer screening by mammogram ??? Gastroesophageal reflux disease without esophagitis ??? Erosive osteoarthritis ??? Moderate episode of recurrent major depressive disorder (HCC) ??? Submucosal lesion of stomach ??? Fever ??? COVID-19 ??? BMI 26.0-26.9,adult ??? Mixed hyperlipidemia ??? Swelling of joint, knee, right ??? Synovial cyst of right popliteal space ??? Effusion of right knee Diagnoses and all orders for this visit: Malignant carcinoid tumor of stomach (CMS/HCC) (HCC) (Primary) - Clinic Appointment Request Follow up; VICK LI; Clinic Appointment Location: [facility] 180 - Lab Draw Appt Request [...] Onc/Hem/BMT; Where will this patient receive treatment? [facility]; Future - Chromogranin A; Future - Gastrin; Future - CBC with auto differential; Future - Comprehensive metabolic panel; Future - Clinic Appointment Request Follow up; VICK LI; Clinic Appointment Location: [facility] 180; Future - Lab Draw Appt Request Arm Draw or Central Line Draw? Arm; What is your ordering location? IM Onc/Hem/BMT; Where will this patient receive treatment? [facility]; Future - Injection Appointment Request Is this the patient's first treatment? No; What is your ordering location? IM Onc/Hem/BMT; Where will this patient receive treatment? [facility]; Future - Chromogranin A; Future - Gastrin; Future - CBC with auto differential; Future - Comprehensive metabolic panel; Future - PET/CT Dotatate Skull to Thigh; Future Subjective Interval History: Stage I carcinoid [...] was then referred to Dr. Tuttle at [facility] for EUS evaluation. Thiswas performed on January [...] Gato Abrams in Surgical Oncology Department at [facility]. 8. On February 24, 2019, she [...] A in May was better but still [id number]. 12. In May of 2019, we had [...] decided to proceed with medical therapy using [id number] mg IM every [address] [...] steatorrhea but easily controlled with diet and [id number]-phgdbki medications. 19. Patient has been on octreotide [...] This was stage is T1 N0 23. At this follow-up visit, she is relatively doing well. She recently saw Dr. Abrams and underwent restaging CT scan. See the results at the end of this note. She still has occasional hypoglycemic episodes. Interval Notes: I have reviewed: allergies, current [...] Exam: Vital Signs for this encounter: BSA: 1.81 meters squared BP 125/84 (BP Location: Left arm) Pulse 61 Temp 36.7 ??C (98 ??F) (Temporal) Resp 17 Ht 162.6 cm (5' 4 ) Wt 72.8 kg (160 lb 6.4 oz) Comment: weighed WO shoes SpO2 97% BMI 27.53 kg/m?? Physical Exam Constitutional: Appearance: She is [...] Results: WBC Date Value Ref Range Status 04/15/2022 4.0 3.8 - 9.9 K/cumm Final Comment: Testing performed by: [address] [address] Hgb Date Value Ref Range Status 04/15/2022 12.3 11.9 - 15.5 g/dL Final Comment: Testing performed by: [address] [address] Hct Date Value Ref Range Status 04/15/2022 36.4 35.6 - 45.5 % Final Comment: Testing performed by: [address] [address] Plt Date Value Ref Range Status 04/15/2022 252 150 - 400 K/cumm Final Comment: Testing performed by: [address] [address] Creatinine Date Value Ref Range Status 04/15/2022 0.80 0.60 - 1.10 mg/dL Final Comment: Testing performed by: [address] [address] AST Date Value Ref Range Status 04/15/2022 35 10 - 45 Units/L Final Comment: Testing performed by: [address] [address] [address] scan of the chest, abdomen pelvis with contrast in mid March showed the followin. Stable 6 mm lesion the uncinate process of the pancreas 2. Stable subcentimeter pulmonary nodules 3. No evidence of metastatic cancer. documented in this encounter Plan of Treatment Not on file documented as of this encounter Results * Comprehensive metabolic panel (07/08/2022 7:57 AM CDT) Sodium 140 135 - 145 mmol/L [facility] Comment:Testing performed by : [address] [address] Potassium, pl 4.4 3.3 - 4.9 mmol/L [facility] Comment:Testing performed by : [address] [address] Chloride 101 97 - 110 mmol/L [facility] Comment:Testing performed by : [address] [address] CO2 26 22 - 32 mmol/L [facility] Comment:Testing performed by : [address] [address] Anion gap 13 2 - 15 mmol/L [facility] Comment:Testing performed by : [address] [address] BUN 17 8 - 25 mg/dL [facility] Comment:Testing performed by : [address] [address] Creatinine 0.70 0.60 - 1.10 mg/dL [facility] Comment:Testing performed by : [address] [address] Glucose 136 70 - 199 mg/dL [facility] Comment: Interpretive Data Fasting glucose >/= 126 [...] was last revised 2017. Testing performed by: [address] [address] Calcium 9.4 8.5 - 10.3 mg/dL [facility] Comment:Testing performed by : [address] [address] Bilirubin, total 0.4 0.1 - 1.2 mg/dL [facility] Comment:Testing performed by : [address] [address] Protein, pl 7.6 6.5 - 8.5 g/dL [facility] Comment:Testing performed by : [address] [address] Albumin 4.6 3.5 - 5.0 g/dL [facility] Comment:Testing performed by : [address] [address] Alk phos 63 40 - 130 Units/L [facility] Comment:Testing performed by : [address] [address] ALT 22 7 - 45 Units/L [facility] Comment:Testing performed by : [address] [address] AST 23 10 - 45 Units/L [facility] Comment:Testing performed by : [address] [address] Blood 07/08/2022 7:57 AM CDT 07/08/2022 8:14 AM CDT Vick Li DO LAB BLOOD ORDERABLES Final R esult [facility] [address] [facility] Department of Laboratories [place], [place] [id number] * (ABNORMAL) CBC with auto differential (07/08/2022 7:57 AM CDT) [facility] WBC 3.5(L) 3.8 - 9.9 K/cumm [facility] Comment:Testing performed by : [address] [address] Hgb 12.4 11.9 - 15.5 g/dL [facility] Comment:Testing performed by : [address] [address] Hct 37.5 35.6 - 45.5 % [facility] Comment:Testing performed by : [address] [address] Plt 245 150 - 400 K/cumm [facility] Comment:Testing performed by : [address] [address] MPV 9.6 9.1 - 12.3 fL [facility] Comment:Testing performed by : [address] [address] RBC 4.23 3.90 - 5.20 M/cumm [facility] Comment:Testing performed by : [address] [address] MCV 88.7 81.3 - 96.4 fL [facility] Comment:Testing performed by : [address] [address] MCH 29.3 27.1 - 33.3 pg [facility] Comment:Testing performed by : [address] [address] MCHC 33.1 32.3 - 35.7 g/dL [facility] Comment:Testing performed by : [address] [address] RDW CV 12.0 11.1 - 14.9 % [facility] Comment:Testing performed by : [address] [address] RDW SD 38.9 35.7 - 48.1 fL [facility] Comment:Testing performed by : [address] [address] Blood 07/08/2022 7:57 AM CDT 07/08/2022 8:14 AM CDT us Vick Li DO LAB BLOOD ORDERABLES Final R esult [facility] [address] [facility] Department [place] [address] * Gastrin (07/08/2022 7:57 AM CDT) Gastrin <10 pg/mL [facility] Comment: REFERENCE VALUE <100 Reference ranges valid for >= 8 hour fast. Test Performed by: [facility] [address] [place] [address] Concrete Worker: Bjorn Morris M.D. Ph.D.; CLIA# [id number] Testing performed by: [facility], [address] [place] [address]., [address] Blood 07/08/2022 7:57 AM CDT 07/08/2022 8:14 AM CDT Vick Li DO LAB BLOOD ORDERABLES Final R esult [facility] [address] [facility] Department [place] [address] * Chromogranin A (07/08/2022 7:57 AM CDT) Pathologist [facility] Chromogranin A 24 <93 ng/mL [facility]A Comment: ADDITIONAL INFORMATION This test was developed and its performance characteristics determined by [facility] in a manner consistent with CLIA [...] a homogeneous time-resolved immunofluorescent assay manufactured by [employer] and performed on the [employer] Kryptor Compact Plus. ? Values obtained with different assay methods or kits may be different and cannot be used interchangeably. ? Test results cannot be interpreted as absolute evidence for the presence or absence of malignant disease. Test Performed by: [facility] [address] [place] [address] Concrete Worker: Bjorn Morris M.D. Ph.D.; CLIA# [id number] Testing performed by: [facility], [address] [place] [address]., [address] Blood 07/08/2022 7:57 AM CDT 07/08/2022 8:14 AM CDT Vick Li DO LAB BLOOD ORDERABLES Final R esult [facility] [address] [facility] Department [place] [address] * PET/CT Dotatate Skull to Thigh (07/06/2022 [...] Electronically signed by ??Abdiel Tidwell M.D. LB: LB D: ??07/06/2022 4:45 PM T: ??07/06/2022 4:45 PM Report ID: [id number] Reading Location: ??[id number] Procedure Note Abdiel Tidwell MD - 07/06/2022 [...] from 2019 and shows no abnormal uptake. Heart size [...] Electronically signed by Abdiel Tidwell M.D. LB: LB Report ID: [id number] Reading Location: [place] [address] Vick Li DO IMG PET PROCEDURES Final Res ult * Comprehensive metabolic panel (06/10/2022 7:52 AM CDT) Sodium 140 135 - 145 mmol/L [facility] Comment:Testing performed by : [address] [address] Potassium, pl 4.1 3.3 - 4.9 mmol/L [facility] Comment:Testing performed by : [address] [address] Chloride 101 97 - 110 mmol/L [facility] Comment:Testing performed by : [address] [address] CO2 29 22 - 32 mmol/L [facility] Comment:Testing performed by : [address] [address] Anion gap 10 2 - 15 mmol/L [facility] Comment:Testing performed by : [address] [address] BUN 17 8 - 25 mg/dL [facility] Comment:Testing performed by : [address] [address] Creatinine 0.70 0.60 - 1.10 mg/dL [facility] Comment:Testing performed by : [address] [address] Glucose 114 70 - 199 mg/dL [facility]REA [...] was last revised 2017. Testing performed by: [address] [address] Calcium 9.8 8.5 - 10.3 mg/dL [facility] Comment:Testing performed by : [address] [address] Bilirubin, total 0.4 0.1 - 1.2 mg/dL [facility] Comment:Testing performed by : [address] [address] Protein, pl 7.7 6.5 - 8.5 g/dL [facility] Comment:Testing performed by : [address] [address] Albumin 4.6 3.5 - 5.0 g/dL [facility] Comment:Testing performed by : [address] [address] Alk phos 69 40 - 130 Units/L [facility] Comment:Testing performed by : [address] [address] ALT 21 7 - 45 Units/L [facility] Comment:Testing performed by : [address] [address] AST 22 10 - 45 Units/L [facility] Comment:Testing performed by : [address] [address] Blood 06/10/2022 7:52 AM CDT 06/10/2022 7:58 AM CDT us Vick Li DO LAB BLOOD ORDERABLES Final R esult [facility] 06[address] [facility] Department [place] [address] * (ABNORMAL) CBC with auto differential (06/10/2022 7:52 AM CDT) WBC 3.3(L) 3.8 - 9.9 K/cumm [facility] Comment:Testing performed by : [address] [address] Hgb 12.7 11.9 - 15.5 g/dL [facility] Comment:Testing performed by : [address], [address] Hct 38.3 35.6 - 45.5 % [facility] Comment:Testing performed by : [address] [address] Plt 239 150 - 400 K/cumm [facility] Comment:Testing performed by : [address], [address] MPV 9.6 9.1 - 12.3 fL [facility] Comment:Testing performed by : [address] [address] RBC 4.29 3.90 - 5.20 M/cumm [facility] Comment:Testing performed by : [address] [address] MCV 89.3 81.3 - 96.4 fL [facility] Comment:Testing performed by : [address], [address] MCH 29.6 27.1 - 33.3 pg [facility] Comment:Testing performed by : [address], [address] MCHC 33.2 32.3 - 35.7 g/dL [facility] Comment:Testing performed by : [address], [address] RDW CV 12.3 11.1 - 14.9 % [facility] Comment:Testing performed by : [facility], [address] [place] [address]., [address] RDW SD 40.4 35.7 - 48.1 fL [facility] Comment:Testing performed by : [address] [address] Blood 06/10/2022 7:52 AM CDT 06/10/2022 7:58 AM CDT Vick Li DO LAB BLOOD ORDERABLES Final R esult Performing Organization Address [facility] Co de Phone Number [address] [place] [address] * Gastrin (06/10/2022 7:52 AM CDT) Gastrin <10 pg/mL [facility] Comment: REFERENCE VALUE <100 Reference ranges valid for >= 8 hour fast. Test Performed by: [place] [id number] Concrete Worker: Bjorn Morris M.D. Ph.D.; CLIA# [id number] Testing performed by: [address] [address] Blood 06/10/2022 7:52 AM CDT 06/10/2022 7:58 AM CDT Vick Li DO LAB BLOOD ORDERABLES Final R esult Performing Organization Address [facility] Co de Phone Number [address] [place] [address] * Chromogranin A (06/10/2022 7:52 AM CDT) Chromogranin A 27 <93 ng/mL [facility] Comment: ADDITIONAL INFORMATION This test was developed and its performance characteristics determined by [facility] in a manner consistent with CLIA [...] a homogeneous time-resolved immunofluorescent assay manufactured by [employer] and performed on the [employer] Compact Plus. ? Values obtained with different assay methods or kits may be different and cannot be used interchangeably. ? Test results cannot be interpreted as absolute evidence for the presence or absence of malignant disease. Test Performed by: [place] [id number] Concrete Worker: Bjorn Morris M.D. Ph.D.; CLIA# [id number] Testing performed by: [address] [address] Blood 06/10/2022 7:52 AM CDT 06/10/2022 7:58 AM CDT Vick Li DO LAB BLOOD ORDERABLES Final R esult [facility] [address] [facility] Department [place] [address] * Comprehensive metabolic panel (05/13/2022 7:53 AM CDT) [facility] Sodium 138 135 - 145 mmol/L [facility] Comment:Testing performed by : [address] [address] Potassium, pl 3.9 3.3 - 4.9 mmol/L [facility] Comment:Testing performed by : [address] [address] Chloride 103 97 - 110 mmol/L [facility] Comment:Testing performed by : [address] [address] CO2 25 22 - 32 mmol/L [facility] Comment:Testing performed by : [address], [place]., [address] Anion gap 10 2 - 15 mmol/L [facility] Comment:Testing performed by : [address] [address] BUN 19 8 - 25 mg/dL [facility] Comment:Testing performed by : [address], [place]., [address] Creatinine 0.70 0.60 - 1.10 mg/dL [facility] Comment:Testing performed by : [address] [address] Glucose 72 70 - 199 mg/dL ANDREA [...] was last revised 2017. Testing performed by: [address] [address] Calcium 9.4 8.5 - 10.3 mg/dL [facility] Comment:Testing performed by : [address] [address] Bilirubin, total 0.4 0.1 - 1.2 mg/dL [facility] Comment:Testing performed by : [address] [address] Protein, pl 7.1 6.5 - 8.5 g/dL [facility] Comment:Testing performed by : [address] [address] Albumin 4.4 3.5 - 5.0 g/dL [facility] Comment:Testing performed by : [address] [address] Alk phos 64 40 - 130 Units/L [facility] Comment:Testing performed by : [address] [address] ALT 19 7 - 45 Units/L [facility] Comment:Testing performed by : [address] [address] AST 24 10 - 45 Units/L [facility] Comment:Testing performed by : [address] [address] Blood 05/13/2022 7:53 AM CDT 05/13/2022 8:00 AM CDT Vick Li DO LAB BLOOD ORDERABLES Final R esult Performing Organization Address City/State/[facility] Co de Phone Number [facility] Department [place] [address] * CBC with auto differential (05/13/2022 7:53 AM CDT) WBC 3.8 3.8 - 9.9 K/cumm [facility] Comment:Testing performed by : [address] [address] Hgb 12.0 11.9 - 15.5 g/dL [facility] Comment:Testing performed by : [address] [address] Hct 35.7 35.6 - 45.5 % [facility] Comment:Testing performed by : [address] [address] Plt 241 150 - 400 K/cumm [facility] Comment:Testing performed by : [address] [address] MPV 9.6 9.1 - 12.3 fL [facility] Comment:Testing performed by : [address] [address] RBC 4.12 3.90 - 5.20 M/cumm [facility] Comment:Testing performed by : [address] [address] MCV 86.7 81.3 - 96.4 fL [facility] Comment:Testing performed by : [facility], [address] [place] [address]., [address] MCH 29.1 27.1 - 33.3 pg [facility] Comment:Testing performed by : [facility], [address] [place] [address]., [address] MCHC 33.6 32.3 - 35.7 g/dL [facility] Comment:Testing performed by : [address] [address] RDW CV 11.9 11.1 - 14.9 % [facility] Comment:Testing performed by : [address] [address] RDW SD 37.9 35.7 - 48.1 fL [facility] Comment:Testing performed by : [address] [address] Blood 05/13/2022 7:53 AM CDT 05/13/2022 8:00 AM CDT Vick Li DO LAB BLOOD ORDERABLES Final R esult [facility] CASTILLO [address] [facility] Department [place] [address] * Gastrin (05/13/2022 7:53 AM CDT) [facility] Signature Gastrin <10 pg/mL ANDREA CASTILLO Comment: REFERENCE VALUE <100 Reference ranges valid for >= 8 hour fast. Test Performed by: [facility] [address] [place] [address] Concrete Worker: Bjorn Morris M.D. Ph.D.; CLIA# [id number] Testing performed by: [address] [address] Blood 05/13/2022 7:53 AM CDT 05/13/2022 8:00 AM CDT Vick Li DO LAB BLOOD ORDERABLES Final R esult [facility]A CASTILLO [address] [facility] Department [place] [address] * Chromogranin A (05/13/2022 7:53 AM CDT) Chromogranin A 20 <93 ng/mL [facility]ST[facility] Comment: ADDITIONAL INFORMATION This test was developed and its performance characteristics determined by [facility] in a manner consistent with CLIA [...] a homogeneous time-resolved immunofluorescent assay manufactured by [employer] and performed on the [employer] Kryptor Compact Plus. ? Values obtained with different assay methods or kits may be different and cannot be used interchangeably. ? Test results cannot be interpreted as absolute evidence for the presence or absence of malignant disease. Test Performed by: [facility] [address] [place] [address] Concrete Worker: Bjorn Morris M.D. Ph.D.; CLIA# [id number] Testing performed by: [facility], [address] [place] [address]., [address] Blood 05/13/2022 7:53 AM CDT 05/13/2022 8:00 AM CDT Vick Li DO LAB BLOOD ORDERABLES Final R esult [facility]RE[facility] [address] [facility] [place] [address] documented in this encounter Visit Diagnoses Diagnosis Malignant carcinoid tumor of stomach (HCC)- Primary Malignant carcinoid tumor of the stomach Malignant carcinoid tumor of stomach (HCC) Malignant carcinoid tumor of the stomach documented in this encounter Orders Appointment Requests Count Last Ordered Date Fi rst Ordered Date ONCBCN CLINIC APPOINTMENT REQUEST 2 022 04/15/2022 ONCBCN INJECTION APPOINTMENT REQUEST 3 06/1905/13/2022 ONCBCN LAB APPOINTMENT 3 07/08/202205/13 documented in this encounter Care Teams Mattress Packer Relationship Specialty Start Date End Date Elizabeth Borrego PA [address] [place], [place] [id number] PCP - General Internal Medicine 03/25/20 09/27/23 Luann Lawrence, ANUP Nurse Practitioner Nurse Practitioner 01/06/19 Adarsh Tuttle MD [address] [facility] [address] [place] [address] Consulting Physician Gastroenterology 02/22/19 Vick Li DO [address] [place], [place] [address] Medical Oncologist/Technical Manager Hematology and Oncology 02/22/19 Guru Winters DO [address] [place] [address] Consulting Physician Gastroenterology 02/22/19 Gato Abrams MD [address] [place] [address] Surgeon Surgical Oncology 09/07/19 Marina Rosales MD [address] [place] [address] [address] [place], [place] [id number] Consulting Physician General Surgery 03/24/21 documented as of this encounter
--- OUTSIDE RECORDS SUMMARY | 2024-10-04 03:00 | XMS_ITS | Encounter Summary ---
Author Organization [facility] Healthcare Address [address] [place] [address] Care Team Providers Care Operations Staff Specialist Security Name Role Phone Luann Lawrence NP Unavailable [phone] Adarsh Tuttle MD Unavailable Sebastein Martinez DO Unavailable [phone] Guru Winters DO Unavailable [phone] Gato Abrams MD Unavailable Elizabeth Borrego Primary Care Provider [phone] Marina Rosales MD Unavailable [phone] Reason for Visit * Episode Based Medications (Routine) - Closed Specialty Diagnoses / Procedures Referred By Clemencia mendez Referred To Contact Oncology Diagnoses Malignant carcinoid tumor of stomach (HCC) Procedures [facility] OCTREOTIDE INJECTION, DEPOT Sebastien Martinez DO [facility] [address] Phone: tel: fax: [facility] [address] [address] Phone: tel: fax: Referral ID Status Reason Start Date Expiration Date Visits Re quested Visits Authorized [id number] Closed 2022 02/19/2023 1 50 Encounter Details Date Type Department Care Team (Late st Contact Info) Description 01/21/2022 7:45 AM CDT Lab [facility] Lab [facility]8 [place] [address] Malignant carcinoid tumor of stomach (CMS/HCC) (HCC) [...] on file 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 Gender Identity Female 06/07/2020 8:39 AM CDT Sexual Orientation Not on file 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 Not on file Not on file documented as of this encounter Plan of Treatment Not on file documented as of this encounter Procedures Procedure Name Priority Date/Time Associated Diagnosis Comments EGFR Routine 01/21/2022 7:55 AM CDT Malignant carcinoid tumor of stomach (CMS/HCC) (HCC) DIFFERENTIAL AUTO STAT 01/21/2022 7:5 5 AM CDT Malignant carcinoid tumor of stomach (CMS/HCC) (HCC) CHROMOGRANIN A Routine 01/21/2022 7:55 AM CDT Malignant carcinoid tumor of stomach (CMS/HCC) (HCC) CBC WITH AUTO DIFFERENTIAL STAT 01/21/2022 7:55 AM CDT Malignant carcinoid tumor of stomach (CMS/HCC) (HCC) GASTRIN Routine 01/21/2022 7:55 AM CDT Malignant carcinoid tumor of stomach (CMS/HCC) (HCC) COMPREHENSIVE METABOLIC PANEL Routine 01/21/2022 7:55 AM CDT Malignant carcinoid tumor of stomach (CMS/HCC) (HCC) documented in this encounter Results * eGFR (01/21/2022 7:55 AM CDT) eGFR 102 mL/min/1. 73 m2 [...] reviewed 2021. Testing performed by: [facility], [address] [place] [address]., [address] Blood 01/21/2022 7:55 AM CDT 01/21/2022 8:06 AM CDT us Sebastien Martinez DO LAB BLOOD ORDERABLES Final R esult ANDREA CASTILLO [address] [facility] [place] [address] * Differential, auto (01/21/2022 7:55 AM CDT) Neutrophil abs 2.3 1.7 - 6.5 K/cumm ANDREA Comment:Testing performed by : [address], [place]., [address] Lymphocyte abs 1.1 0.8 - 3.3 K/cumm ANDREA Comment:Testing performed by : [address] [address] Monocyte abs 0.3 0.2 - 0.8 K/cumm ANDREA Comment:Testing performed by : [address] [address] Eosinophil abs 0.2 0.0 - 0.5 K/cumm ANDREA Comment:Testing performed by : [address] [address] Basophil abs 0.1 0.0 - 0.1 K/cumm ANDREA Comment:Testing performed by : [address] [address] Neutrophil pct 59.2 % ANDREA Comment: Interpretive Data Percent cell count reference ranges are not reported, since discordance with absolute values may lead to misinterpretation of CBC data. Current Interpretive Data was last revised on 2018. Testing performed by: [address] [address] Imm gran pct 0.3 % ANDREA Comment: Interpretive Data Percent cell count reference ranges are not reported, since discordance with absolute values may lead to misinterpretation of CBC data. Current Interpretive Data was last revised on 2018. Testing performed by: [address] [address] Lymphocyte pct 27.9 % CERNER Comment: Interpretive Data Percent cell count reference ranges are not reported, since discordance with absolute values may lead to misinterpretation of CBC data. Current Interpretive Data was last revised on 2018. Testing performed by: [address] [address] Monocyte pct 6.9 % CERTAVO Comment: Interpretive Data Percent cell count reference ranges are not reported, since discordance with absolute values may lead to misinterpretation of CBC data. Current Interpretive Data was last revised on 2018. Testing performed by: [address] [address] Eosinophil pct 4.4 % ANDREA Comment: Interpretive Data Percent cell count reference ranges are not reported, since discordance with absolute values may lead to misinterpretation of CBC data. Current Interpretive Data was last revised on 2018. Testing performed by: [address] [address] Basophil pct 1.3 % ANDREA Comment: Interpretive Data Percent cell count reference ranges are not reported, since discordance with absolute values may lead to misinterpretation of CBC data. Current Interpretive Data was last revised on 2018. Testing performed by: [address] [address] Blood 01/21/2022 7:55 AM CDT 01/21/2022 8:07 AM CDT us Sebastien Martinez DO LAB BLOOD ORDERABLES Final R esult ANDREA [address] [facility] [place] [address] * Chromogranin A (01/21/2022 7:55 AM CDT) Chromogranin A 27 <93 ng/mL ANDREA Comment: ADDITIONAL INFORMATION This test was developed and its performance characteristics determined by [facility] in a manner consistent with CLIA requirements. [...] a homogeneous time-resolved immunofluorescent assay manufactured by [employer] and performed on the [employer]Xer KrLVL6or Compact Plus. ? Values obtained with different assay methods or kits may be different and cannot be used interchangeably. ? Test results cannot be interpreted as absolute evidence for the presence or absence of malignant disease. Test Performed by: [place] [address] Inspector Boiler: Bjorn Morris M.D. Ph.D.; CLIA# [id number] Testing performed by: [address] [address] Blood 01/21/2022 7:55 AM CDT 01/21/2022 8:06 AM CDT Sebastien Martinez DO LAB BLOOD ORDERABLES Final R Tripshareult Performing Organization Address [facility] de Phone Number [place] [id number] [facility] [place] [address] * Gastrin (01/21/2022 7:55 AM CDT) [facility] Signature Gastrin <10 pg/mL ANDREA Comment: REFERENCE VALUE <100 Reference ranges valid for >= 8 hour fast. Test Performed by: [place] [address] Inspector Boiler: Bjorn Morris M.D. Ph.D.; CLIA# [id number] Testing performed by: [address] [address] Blood 01/21/2022 7:55 AM CDT 01/21/2022 8:06 AM CDT Sebastien Martinez DO LAB BLOOD ORDERABLES Final R Tripshareult Performing Organization Address [facility]/State/ZIP Co de Phone Number ANDREA [address] [facility] [place] [address] * (ABNORMAL) CBC with auto differential (01/21/2022 7:55 AM CDT) WBC 3.9 3.8 - 9.9 K/cumm ANDREA CASTILLO Comment:Testing performed by : [address] [address] Hgb 11.8(L) 11.9 - 15.5 g/dL ANDREA Comment:Testing performed by : [address] [address] Hct 35.6 35.6 - 45.5 % ANDREA Comment:Testing performed by : [address] [address] Plt 271 150 - 400 K/cumm ANDREA Comment:Testing performed by : [address] [address] MPV 9.7 9.1 - 12.3 fL ANDREA Comment:Testing performed by : [address] [address] RBC 4.06 3.90 - 5.20 M/cumm ANDREA Comment:Testing performed by : [address] [address] MCV 87.7 81.3 - 96.4 fL ANDREA Comment:Testing performed by : [address] [address] MCH 29.1 27.1 - 33.3 pg ANDREA Comment:Testing performed by : [address] [address] MCHC 33.1 32.3 - 35.7 g/dL ANDREA Comment:Testing performed by : [address] [address] RDW CV 12.1 11.1 - 14.9 % ANDREA Comment:Testing performed by : [address] [address] RDW SD 39.0 35.7 - 48.1 fL ANDREA Comment:Testing performed by : [address] [address] Blood 01/21/2022 7:55 AM CDT 01/21/2022 8:07 AM CDT Sebastien Martinez DO LAB BLOOD ORDERABLES Final R esult [facility] [address] [facility] [place] [address] * Comprehensive metabolic panel (01/21/2022 7:55 AM CDT) Sodium 140 135 - 145 mmol/L ANDREA Comment:Testing performed by : [address] [address] Potassium, pl 4.4 3.3 - 4.9 mmol/L ANDREA Comment:Testing performed by : [address] [address] Chloride 105 97 - 110 mmol/L ANDREA Comment:Testing performed by : [address] [address] CO2 28 22 - 32 mmol/L ANDREA Comment:Testing performed by : [address] [address] Anion gap 7 2 - 15 mmol/L ANDREA Comment:Testing performed by : [address] [address] BUN 20 8 - 25 mg/dL ANDREA Comment:Testing performed by : [address] [address] Creatinine 0.70 0.60 - 1.10 mg/dL ANDREA Comment:Testing performed by : [address] [address] Glucose 142 70 - 199 mg/dL ANDREA Comment: Interpretive [...] was last revised 2017. Testing performed by: [address] [address] Calcium 9.2 8.5 - 10.3 mg/dL ANDREA Comment:Testing performed by : [address] [address] Bilirubin, total 0.4 0.1 - 1.2 mg/dL ANDREA Comment:Testing performed by : [address] [address] Protein, pl 6.8 6.5 - 8.5 g/dL ANDREA Comment:Testing performed by : [address] [address] Albumin 4.3 3.5 - 5.0 g/dL ANDREA Comment:Testing performed by : [address] [address] Alk phos 79 40 - 130 Units/L [facility] Comment:Testing performed by : [address] [address] ALT 31 7 - 45 Units/L ANDREA Comment:Testing performed by : [address] [address] AST 27 10 - 45 Units/L [facility] Comment:Testing performed by : [address] [address] Blood 01/21/2022 7:55 AM CDT 01/21/2022 8:06 AM CDT us Sebastien Martinez DO LAB BLOOD ORDERABLES Final R esult ANDREA CASTILLO [address] [facility] Department of Laboratories [place], [place] [address] documented in this encounter Visit Diagnoses Diagnosis Malignant carcinoid tumor of stomach (HCC) Malignant carcinoid tumor of the stomach documented in this encounter Orders Appointment Requests Count Last Ordered Date Fi rst Ordered Date ONCBCN LAB APPOINTMENT 1 01/21/2022 documented in this encounter Care Teams Operations Staff Specialist Security Relationship Specialty Start Date End Date Elizabeth Borrego PA [address] [place] [address] PCP - General Internal Medicine 03/25/20 09/27/23 Luann Lawrence, ANUP Nurse Practitioner Nurse Practitioner 01/06/19 Adarsh Tuttle MD [address] [place], [place] [address] Consulting Physician Gastroenterology 02/22/19 Sebastien Martinez DO [facility] [address] Medical Oncologist/Thermoforming Operator Hematology and Oncology 02/22/19 Guru Winters DO [facility] [address] Consulting Physician Gastroenterology 02/22/19 Gato Abrams MD [facility] [address] Surgeon Surgical Oncology 09/07/19 Marina Rosales MD [address] [place] [address] Consulting Physician General Surgery 03/24/21 documented as of this encounter
--- OUTSIDE RECORDS SUMMARY | 2024-10-04 03:00 | XMS_ITS | Encounter Summary ---
Author Organization [facility] Address [address] [place] [address] Phone Care Team Providers Care Crossing Gateman Name Role Phone Luann Lawrence ANUP Unavailable Adarsh Tuttle MD Unavailable [phone] Sebastien Martinez DO Unavailable [phone] Guru Winters DO Unavailable [phone] Gato Abrams MD Unavailable [phone] Elizabeth Borrego Primary Care Provider [phone] Marina Rosales MD Unavailable [phone] Encounter Details Date Type Department Care Team (Late st Contact Info) Description 03/17/2022 Orders Only [facility] Physicians [facility] Oncology [address] [facility] [address] [place] [address] Sebastien Martinez DO [address] [facility] [address] [place] [address] Malignant carcinoid tumor of stomach (CMS/HCC) [...] on file 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 Gender Identity Female 06/07/2020 8:39 AM CDT [...] stomach documented in this encounter Care Teams Crossing Gateman Relationship Specialty Start Date End Date Elizabeth Borrego PA [address] [facility] 500 [place] [address] PCP - General Internal Medicine 03/25/20 09/27/23 Luann Lawrence NP Nurse Practitioner Nurse Practitioner 01/06/19 Adarsh Tuttle MD [address] [facility] [address] [place] [address] Consulting Physician Gastroenterology 02/22/19 Sebastien Martinez DO [address] [place] [address] Medical Oncologist/Cider Maker Hematology and Oncology 02/22/19 Guru Winters DO [address] [place] [address] Consulting Physician Gastroenterology 02/22/19 Gato Abrams MD [address] [place] [address] 180 [place] [address] Surgeon Surgical Oncology 09/07/19 Marina Rosales MD [address] [facility] [address] [place], [place] [address] Consulting Physician General Surgery 03/24/21 documented as of this encounter
--- OUTSIDE RECORDS SUMMARY | 2024-10-04 03:00 | XMS_ITS | Encounter Summary ---
Author Organization [facility] Address [address] [place] [address] Care Team Providers Care Claim Review Medical Director Name Role Phone Luann Lawrence NP Unavailable [phone] Adarsh Tuttle MD Unavailable [phone] Sebastien Martinez DO Unavailable [phone] Guru Winters DO Unavailable [phone] Gato Abrams MD Unavailable [phone] Elizabeth Borrego Primary Care Provider [phone] Marina Rosales MD Unavailable [phone] Reason for Referral * Diagnostic Imaging (Routine) - Closed Specialty Diagnoses / Procedures Referred By Contac t Referred To Contact Radiology Diagnoses Malignant carcinoid tumor of stomach (HCC) Procedures CT Abdomen Pelvis W WO Contrast Gato Abrams MD Phone: tel: fax: [address] [address] Referral ID Status Reason Start Date Expiration Date Visits Re quested Visits Authorized [id number] Closed 12/03/2021 01/02/2023 1 1 Reason for Visit * Diagnostic Imaging (Routine) - Closed Specialty Diagnoses / Procedures Referred By Contac t Referred To Contact Radiology Diagnoses Malignant carcinoid tumor of stomach (HCC) Procedures CT Abdomen Pelvis W WO Contrast Gato Abrams MD Phone: tel: fax: [facility] [address] [facility] [place] [address] Referral ID Status Reason Start Date Expiration Date Visits Re quested Visits Authorized [id number] Closed 12/03/2021 01/02/2023 1 1 Encounter Details Date Type Department Care Team (Latest Contact Info) Description 03/30/2022 11:38 AM CDT - 03/30/2022 11:59 PM CDT Hospital Encounter [facility] [address] [place] [address] Gato Abrams MD [address] [facility] [phone] [place] [address] Malignant carcinoid tumor of stomach (CMS/HCC) (HCC) [...] on file 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 Gender Identity Female 06/07/2020 8:39 AM CDT Sexual Orientation Not on file 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 Not on file Not on file documented as of this encounter Medications at Time of Discharge cholecalciferol (VITAMIN D-3) 1,000 unit capsuleIndicati ons:Vitamin D Deficiency Take 2 capsules (2,000 Units total) by mouth cheese grader before breakfast buPROPion XL (WELLBUTRIN XL) 150 [...] 1 tablet (200 mg total) by mouth cheese grader before breakfast 01/30/2019 09/30/20 23 multivitamin capsuleIndicati ons:Vitamin Deficiency Prevention Take 1 capsule by mouth cheese grader before breakfast 04/14/20 24 octreotide (SandoSTATIN) 100 [...] CONTRAST Schedule Routine, Read Routine (OP Routine) 03/30/2022 12:19 PM CDT Malignant carcinoid tumor of stomach (CMS/HCC) [...] Dose Rate Site ioversoL (OPTIRAY 350) syringe syringe 125 mL 125 mL, intravenous, Once in imaging, contrast, Starting on 03/30/22 at 1156, For 1 dose Contrast Given 03/30/2022 12:01 PM CDT 119 mL documented in this encounter Care Teams Claim Review Medical Director Relationship Specialty Start Date End Date Elizabeth Borrego PA [address] [facility] [address] [place], [place] [id number] PCP - General Internal Medicine 03/25/20 09/27/23 Luann Lawrence NP Nurse Practitioner Nurse Practitioner 01/06/19 Adarsh Tuttle MD [address] [facility] [address] [place] [address] Consulting Physician Gastroenterology 02/22/19 Sebastien Martinez DO [address] [place] [address] [address] [place] [address] Medical Oncologist/Soap Grinder Hematology and Oncology 02/22/19 Guru Winters DO [address] [place] [address] Consulting Physician Gastroenterology 02/22/19 Gato Abrams MD [address] [place] [address] Surgeon Surgical Oncology 09/07/19 Marina Rosales MD [facility]5 [facility] 500 [place], [place] [address] Consulting Physician General Surgery 03/24/21 documented as of this encounter
--- OUTSIDE RECORDS SUMMARY | 2024-10-04 03:00 | XMS_ITS | Encounter Summary ---
Author Organization [facility] Address [address] [place] [address] Phone Care Team Providers Care Traffic Circuit Engineer Name Role Phone MelindaLuann oh Aditya HEBERT Unavailable [phone] Adarsh Tuttle MD Unavailable [phone] Sebastien Martinez DO Unavailable [phone] Guru Winters DO Unavailable [phone] Gato Abrams MD Unavailable [phone] Elizabeth Borrego Primary Care Provider [phone] Marina Rosales MD Unavailable [phone] Reason for Visit * Episode Based Medications (Routine) - Closed Specialty Diagnoses / Procedures Referred By Contjimmy t Referred To Contact Oncology Diagnoses Malignant carcinoid tumor of stomach (HCC) Procedures [facility] OCTREOTIDE INJECTION, DEPOT Sebastien Martinez, [facility] [address] Phone: tel: fax: [facility] [address] [address] Phone: tel: fax: Referral ID Status Reason Start Date Expiration Date Visits Re quested Visits Authorized [id number] Closed 2022 02/19/2023 1 50 Encounter Details Date Type Department Care Team (Late st Contact Info) Description 04/15/2022 8:45 AM CDT Infusion [facility] 14[address] [facility] [address] [place] [address] Malignant carcinoid tumor of stomach [...] on file 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 female who presents for the following injection: octreotide. Nursing Assessment Additional Notes: Patient reports feeling well today and denies any complaints. BP: 125/84 Temp: 36.7 ??C (98 ??F) Temp src: Temporal Pulse: 61 Resp: 17 SpO2: 97 % Height: 162.6 cm (5' 4 ) Weight: 72.8 kg (160 lb 6.4 oz) (weighed WO shoes) Patient: does not require labs today. Fabiola Gibson tolerated injection well Discharge Plan [...] 10 mg 10 mg, intramuscular, Once, On Wed04/15/22 at 0930, For 1 dose, Refrigerate. For IM intragluteal administration only- alternate gluteal sites. Shamir.Indications:Malignant carcinoid tumor of stomach (HCC) Given 04/15/2022 9:02 AM CDT 10 mg Left Dorsogluteal/Butt ock documented in this encounter Orders Appointment Requests Count Last Ordered Date Fi rst Ordered Date ONCBCN INJECTION APPOINTMENT REQUEST 1 03/19 documented in this encounter Care Teams Traffic Circuit Engineer Relationship Specialty Start Date End Date Elizabeth Borrego PA [address] [facility] 500 [place] [address] PCP - General Internal Medicine 03/25/20 09/27/23 Luann Lawrence NP Nurse Practitioner Nurse Practitioner 01/06/19 Adarsh Tuttle MD [address] [facility] 210 [place] [address] Consulting Physician Gastroenterology 02/22/19 [place] [address] [place] [address] Medical Oncologist/Surgical Instruments Inspector Hematology and Oncology 02/22/19 [place] [address] [place] [address] Consulting Physician Gastroenterology 02/22/19 Gato Abrams MD 1418 [facility] 180 [place] [address] Surgeon Surgical Oncology 09/07/19 Marina Rosales MD 10[address] [facility] 500 [place], [place] [address] Consulting Physician General Surgery 03/24/21 documented as of this encounter
--- OUTSIDE RECORDS SUMMARY | 2024-10-04 03:00 | XMS_ITS | Encounter Summary ---
Author Organization [facility] Healthcare Address [address] [place] [address] Care Team Providers Care Milk Receiver Tank Truck Name Role Phone Luann Lawrence NP Unavailable [phone] Adarsh Tuttle MD Unavailable [phone] Sebastien Martinez DO Unavailable [phone] Guru Winters DO Unavailable [phone] Gato Abrams MD Unavailable [phone] Elizabeth Borrego Primary Care Provider [phone] Marina Rosales MD Unavailable [phone] Reason for Visit * Episode Based Medications (Routine) - Closed Specialty Diagnoses / Procedures Referred By Clemencia mendez Referred To Contact Oncology Diagnoses Malignant carcinoid tumor of stomach (HCC) Procedures CT OCTREOTIDE INJECTION, DEPOT Sebastien Martinez DO [facility] [address] Phone: tel: fax: 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 Gender Identity Female 06/07/2020 8:39 AM CDT Sexual Orientation Not on file 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 Not on file Not on file documented as of this encounter Plan of Treatment Not on file documented as of this encounter Procedures Procedure Name Priority Date/Time Associated Diagnosis Comments EGFR Routine 04/15/2022 8:11 AM CDT Malignant carcinoid tumor of stomach (CMS/HCC) (HCC) DIFFERENTIAL AUTO STAT 04/15/2022 8:1 1 AM CDT Malignant carcinoid tumor of stomach (CMS/HCC) (HCC) CHROMOGRANIN A Routine 04/15/2022 8:11 AM CDT Malignant carcinoid tumor of stomach (CMS/HCC) (HCC) CBC WITH AUTO DIFFERENTIAL STAT 04/15/2022 8:11 AM CDT Malignant carcinoid tumor of stomach (CMS/HCC) (HCC) GASTRIN Routine 04/15/2022 8:11 AM CDT Malignant carcinoid tumor of stomach (CMS/HCC) (HCC) COMPREHENSIVE METABOLIC PANEL Routine 04/15/2022 8:11 AM CDT Malignant carcinoid tumor of stomach (CMS/HCC) (HCC) documented in this encounter Results * eGFR (04/15/2022 8:11 AM CDT) eGFR 87 mL/min/1. 73 m2 ANDREA CASTILLO Comment: Interpretive [...] was last reviewed 2021. Testing performed by: [facility], [address] [place] [address], [place]., [address] Blood 04/15/2022 8:11 AM CDT 04/15/2022 8:14 AM CDT us Sebastien Martinez DO LAB BLOOD ORDERABLES Final R esult ANDREA CASTILLO [address] [facility] Department [place] [address] * Differential, auto (04/15/2022 8:11 AM CDT) Neutrophil abs 2.5 1.7 - 6.5 K/cumm ANDREA Comment:Testing performed by : [address], [place]., [address] Lymphocyte abs 0.9 0.8 - 3.3 K/cumm ANDREA Comment:Testing performed by : [address] [address] Monocyte abs 0.3 0.2 - 0.8 K/cumm ANDREA Comment:Testing performed by : [address] [address] Eosinophil abs 0.2 0.0 - 0.5 K/cumm ANDREA Comment:Testing performed by : [address] [address] Basophil abs 0.1 0.0 - 0.1 K/cumm ANDREA Comment:Testing performed by : [address] [address] Neutrophil pct 62.6 % CERTAVO Comment: Interpretive Data Percent cell count reference ranges are not reported, since discordance with absolute values may lead to misinterpretation of CBC data. Current Interpretive Data was last revised on 2018. Testing performed by: [address] [address] Imm gran pct 0.3 % CERTAVO Comment: Interpretive Data Percent cell count reference ranges are not reported, since discordance with absolute values may lead to misinterpretation of CBC data. Current Interpretive Data was last revised on 2018. Testing performed by: [address] [address] Lymphocyte pct 23.5 % CERNER Comment: Interpretive Data Percent cell count reference ranges are not reported, since discordance with absolute values may lead to misinterpretation of CBC data. Current Interpretive Data was last revised on 2018. Testing performed by: [address] [address] Monocyte pct 7.8 % CERNER Comment: Interpretive Data Percent cell count reference ranges are not reported, since discordance with absolute values may lead to misinterpretation of CBC data. Current Interpretive Data was last revised on 2018. Testing performed by: [address] [address] Eosinophil pct 4.3 % ANDREA Comment: Interpretive Data Percent cell count reference ranges are not reported, since discordance with absolute values may lead to misinterpretation of CBC data. Current Interpretive Data was last revised on 2018. Testing performed by: [address] [address] Basophil pct 1.5 % ANDREA Comment: Interpretive Data Percent cell count reference ranges are not reported, since discordance with absolute values may lead to misinterpretation of CBC data. Current Interpretive Data was last revised on 2018. Testing performed by: [address] [address] Blood 04/15/2022 8:11 AM CDT 04/15/2022 8:14 AM CDT us Sebastien Martinez DO LAB BLOOD ORDERABLES Final R esult ANDREA [address] [facility] Department [place] [address] * Chromogranin A (04/15/2022 8:11 AM CDT) Chromogranin A 20 <93 ng/mL ANDREA Comment: ADDITIONAL INFORMATION This test was developed and its performance characteristics determined by [facility] in a manner consistent with CLIA [...] a homogeneous time-resolved immunofluorescent assay manufactured by [employer] and performed on the [employer] Plus. ? Values obtained with different assay methods or kits may be different and cannot be used interchangeably. ? Test results cannot be interpreted as absolute evidence for the presence or absence of malignant disease. Test Performed by: [place] [id number] Pipeline Superintendent Division: Bjorn Morris M.D. Ph.D.; CLIA# [id number] Testing performed by: [address] [address] Blood 04/15/2022 8:11 AM CDT 04/15/2022 8:14 AM CDT Sebastien Martinez DO LAB BLOOD ORDERABLES Final R Bid Nerdult Performing Organization Address [facility] de Phone Number [place] [address] [facility] Department [place] [address] * Gastrin (04/15/2022 8:11 AM CDT) [facility] Signature Gastrin <10 pg/mL ANDREA Comment: REFERENCE VALUE <100 Reference ranges valid for >= 8 hour fast. Test Performed by: [place] [id number] Pipeline Superintendent Division: Bjorn Morris M.D. Ph.D.; CLIA# [id number] Testing performed by: [address] [address] Blood 04/15/2022 8:11 AM CDT 04/15/2022 8:14 AM CDT Sebastien Martinez DO LAB BLOOD ORDERABLES Final R esult Performing Organization Address [facility]/State/ZIP Co de Phone Number ANDREA [address] [facility] Department [place] [address] * CBC with auto differential (04/15/2022 8:11 AM CDT) [facility] Signature WBC 4.0 3.8 - 9.9 K/cumm ANDREA CASTILLO Comment:Testing performed by : [address] [address] Hgb 12.3 11.9 - 15.5 g/dL ANDREA Comment:Testing performed by : [address] [address] Hct 36.4 35.6 - 45.5 % ANDREA CASTILLO Comment:Testing performed by : [address] [address] Plt 252 150 - 400 K/cumm ANDREA CASTILLO Comment:Testing performed by : [address] [address] MPV 9.6 9.1 - 12.3 fL ANDREA Comment:Testing performed by : [address], [address] RBC 4.20 3.90 - 5.20 M/cumm ANDREA CASTILLO Comment:Testing performed by : [address] [address] MCV 86.7 81.3 - 96.4 fL ANDREA CASTILLO Comment:Testing performed by : [address] [address] MCH 29.3 27.1 - 33.3 pg ANDREA CASTILLO Comment:Testing performed by : [address] [address] MCHC 33.8 32.3 - 35.7 g/dL ANDREA Comment:Testing performed by : [address], [address] RDW CV 12.2 11.1 - 14.9 % ANDREA CASTILLO Comment:Testing performed by : [address], [address] RDW SD 38.6 35.7 - 48.1 fL ANDREA Comment:Testing performed by : [address] [place]., [address] Blood 04/15/2022 8:11 AM CDT 04/15/2022 8:14 AM CDT Sebastien Martinez DO LAB BLOOD ORDERABLES Final R esult [facility] [address] [facility] Department [place] [address] * Comprehensive metabolic panel (04/15/2022 8:11 AM CDT) Sodium 143 135 - 145 mmol/L ANDREA Comment:Testing performed by : [address] [address] Potassium, pl 4.5 3.3 - 4.9 mmol/L ANDREA Comment:Testing performed by : [address] [address] Chloride 104 97 - 110 mmol/L ANDREA Comment:Testing performed by : [address] [address] CO2 27 22 - 32 mmol/L ANDREA Comment:Testing performed by : [address] [address] Anion gap 12 2 - 15 mmol/L ANDREA Comment:Testing performed by : [address] [address] BUN 15 8 - 25 mg/dL ANDREA Comment:Testing performed by : [address] [address] Creatinine 0.80 0.60 - 1.10 mg/dL ANDREA Comment:Testing performed by : [address] [address] Glucose 114 70 - 199 mg/dL ANDREA [...] last revised 2017. Testing performed by: [address] [address] Calcium 9.6 8.5 - 10.3 mg/dL ANDREA Comment:Testing performed by : [address] [address] Bilirubin, total 0.5 0.1 - 1.2 mg/dL [facility] Comment:Testing performed by : [address] [address] Protein, pl 7.2 6.5 - 8.5 g/dL [facility] Comment:Testing performed by : [address] [address] Albumin 4.2 3.5 - 5.0 g/dL [facility] Comment:Testing performed by : [address] [address] Alk phos 78 40 - 130 Units/L [facility] Comment:Testing performed by : [address] [address] ALT 40 7 - 45 Units/L [facility] Comment:Testing performed by : [address] [address] AST 35 10 - 45 Units/L [facility] Comment:Testing performed by : [address] [address] Blood 04/15/2022 8:11 AM CDT 04/15/2022 8:14 AM CDT us Sebastien Martinez DO LAB BLOOD ORDERABLES Final R esult ANDREA CASTILLO [address] [facility] Department [place] [address] documented in this encounter Visit Diagnoses Diagnosis Malignant carcinoid tumor of stomach (HCC) Malignant carcinoid tumor of the stomach documented in this encounter Orders Appointment Requests Count Last Ordered Date Fi rst Ordered Date ONCBCN LAB APPOINTMENT 1 04/15/2022 documented in this encounter Care Teams Milk Receiver Tank Truck Relationship Specialty Start Date End Date Elizabeth Borrego PA [address] [place], [place] [id number] PCP - General Internal Medicine 03/25/20 09/27/23 Luann Lawrence, ANUP Nurse Practitioner Nurse Practitioner 01/06/19 Adarsh Tuttle MD [address] [place] [address] Consulting Physician Gastroenterology 02/22/19 Sebastien Martinez DO [facility] [address] Medical Oncologist/Bench Mechanic Hematology and Oncology 02/22/19 Guru Winters DO [facility] [address] Consulting Physician Gastroenterology 02/22/19 Gato Abrams MD [facility] [address] Surgeon Surgical Oncology 09/07/19 Marina Rosales MD [address] [place], [place] [id number] Consulting Physician General Surgery 03/24/21 documented as of this encounter
--- OUTSIDE RECORDS SUMMARY | 2024-10-04 03:00 | XMS_ITS | Encounter Summary ---
Author Organization [facility] Address [address] [facility] [address] [place] [address] Care Team Providers Care Airplane Pilot Helper Name Role Phone Melinda Luann Burgess NP Unavailable Adarsh Tuttle MD Unavailable [phone] Sebastien Martinez DO Unavailable [phone] Guru Winters DO Unavailable [phone] Gato Abrams MD Unavailable [phone] Elizabeth Borrego Primary Care Provider [phone] Marina Rosales MD Unavailable [phone] Encounter Details Date Type Department Care Team (Late st Contact Info) Description 12/08/2021 Orders Only [facility] Medical [facility] Family Medicine [address] [facility] [address] [place] [address] Provider, MD Pedro [address] [place] [address] Social History Tobacco Use Types Packs/Day [...] on file 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 Gender Identity Female 06/07/2020 8:39 AM CDT Sexual Orientation Not on file 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 Not on file Not on file documented as of this encounter Plan of Treatment Not on file documented as of this encounter Procedures Procedure Name Priority Date/Time Associated Diagnosis Comments MAMMOGRAPHY Routine 11/26/2021 documented in this encounter Results * HM MAMMOGRAPHY (11/26/2021) us Historical Provider HEALTH MAINTENANCE Edited Result - Final documented in this encounter Visit Diagnoses Not on filedocumented in this encounter Care Teams Airplane Pilot Helper Relationship Specialty Start Date End Date Elizabeth Borrego PA [address] [facility] [address] [place] [address] PCP - General Internal Medicine 03/25/20 09/27/23 Luann Lawrence NP Nurse Practitioner Nurse Practitioner 01/06/19 Adarsh Tuttle MD [address] [facility] [address] [place] [address] Consulting Physician Gastroenterology 02/22/19 Sebastien Martinez DO [address] [address] Medical Oncologist/Master Ocean Hematology and Oncology 02/22/19 Guru Winters DO [address] [address] Consulting Physician Gastroenterology 02/22/19 Gato Abrams MD [address] [facility] [address] [place] [address] Surgeon Surgical Oncology 09/07/19 Marina Rosales MD [address] [facility] [address] [place], [place] [id number] Consulting Physician General Surgery 03/24/21 documented as of this encounter
--- OUTSIDE RECORDS SUMMARY | 2024-10-04 03:00 | XMS_ITS | Encounter Summary ---
Author Organization [employer] [facility] Address [address] [place] [address] Phone Care Team Providers Care Emr Specialist Name Role Phone MelindaLuann oh ANUP Unavailable [phone] Adarsh Tuttle MD Unavailable [phone] Sebastien Martinez DO Unavailable [phone] Guru Winters DO Unavailable [phone] Gato Abrams MD Unavailable [phone] Elizabeth Borrego Primary Care Provider [phone] Marina Rosales MD Unavailable [phone] Reason for Referral * Diagnostic Imaging (Routine) - Closed Specialty Diagnoses / Procedures Referred By Contac t Referred To Contact Diagnoses Swelling of joint, knee, right Effusion of right knee Synovial cyst of right popliteal space Procedures US Guided Aspiration or Injection of Major Joint Jason Barber IV, MD Phone: tel: fax: [facility] (All Locations) Referral ID Status Reason Start Date Expiration Date Visits Re quested Visits Authorized [id number] Closed 03/12/2022 04/11/2023 1 1 * Procedure (Routine) - Closed Specialty Diagnoses / Procedures Referred By Contac t Referred To Contact Diagnoses Swelling of joint, knee, right Effusion of right knee Procedures Large Joint Injection: R knee Jason Barber IV, MD Phone: tel: fax: [facility] (All Locations) Referral ID Status Reason Start Date Expiration Date Visits Re quested Visits Authorized [id number] Closed 03/12/2022 04/11/2023 1 1 * Diagnostic Imaging (Routine) - Closed Specialty Diagnoses / Procedures Referred By Clemencia t Referred To Contact Diagnoses Right knee pain, unspecified chronicity Procedures XR Knee Right 3 View Jason Barber IV, MD Phone: tel: fax: [facility] Referral ID Status Reason Start Date Expiration Date Visits Re quested Visits Authorized [id number] Closed 03/04/2022 04/03/2023 1 1 Reason for Visit * Reason Comments Pain Encounter Details Date Type Department Care Team (Late st Contact Info) Description 03/12/2022 9:20 AM CDT Office Visit [facility] Orthopaedic Surgery 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 Not on file Not on file Not on file documented as of this encounter Progress Notes * Jason Barber IV, MD - 03/12/2022 9:20 AM CDTAssociated Order(s): Large Joint Injection: R knee Large Joint Injection: R knee Performed by: Jasno Barber IV, MD Authorized by: Jason Barber IV, MD Large Joint Injection/Aspiration: Consent Given by: Patient Timeout: prior to procedure the correct patient, procedure, and site was verified Verbal consent obtained: Yes Supporting Documentation: Indications: Pain and joint swelling Procedure Details: Location: Knee Site: R knee Prep: patient was prepped using a clean technique Approach: Superior lateral Medications: 80 mg methylPREDNISolone acetate 40 mg/mL; 4 mL bupivacaine HCl 0.5 % (5 mg/mL); 4 mL mepivacaine 1 % (10 mg/mL) Aspirate amount (mL): 8 Aspirate: Clear, serous and yellow Patient tolerance: Patient tolerated the procedure well with no immediate complications I discussed the risk and benefits of the injection with the patient including but not limited to the risk of infection, the risk of a flare and how to minimize it, and the risk of change in pigmentation at the injection site. * Jason Barber IV, MD - 03/12/2022 9:20 AM CDT Images from the original note were not included. CHIEF COMPLAINT Right knee swelling, pain and posterior fullness for 2 years HISTORY 56 year old female who presents with right knee pain, swelling and posterior fullness for 2 years. She 1st noticed the posterior right knee mass approximately 2 years ago, at which time she saw Dr. Menon who ordered an MRI. 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 Due to COVID, she never followed up with this physician level, and she has not had any interventions to this knee. She does report some mild anterior pain with hyperflexion. Her primary complaint is tightness, worse withwalking, better with rest. The posterior mass seems to block her range of motion. No prior injury to the knee. No treatments; no injections or aspirations, bracing, anti-inflammatory medications. Shedoes note that the mass seems to fluctuate in size. Her past medical history is notable for RA, carcinoid tumors of the stomach, status post resection, with 1 lesion on her pancreas at this time, on octreotide, in addition to left bundle branch block. She is not diabetic, nonsmoker, not on anticoagulants. The patient was referred to see me by NBA Bryan. PAST MEDICAL HISTORY She has a past medical history of Anemia, Autoimmune disease (CMS/HCC) (HCC), Cancer (CMS/HCC) (HCC), Carcinoid tumor of stomach, Chronic diarrhea, Colon polyp, Depression, Heart murmur, Hyperlipidemia, Hypertension, Left bundle branch block, Rheumatoid arthritis (HCC), and Urinary tract infection. She has no past medical history of Awareness under anesthesia, COPD (chronic obstructive pulmonary disease) (CMS/HCC) (HCC), Delayed emergence from general anesthesia, Diabetes mellitus (HCC), Hard to intubate, Malignant hyperthermia, Motion sickness, PONV (postoperative nausea and vomiting), Postoperative delirium, Pseudocholinesterase deficiency, Seizures (CMS/HCC) (HCC), Sleep apnea, Stroke (CMS/HCC) (HCC), or Type 2 diabetes mellitus (HCC). PAST SURGICAL HISTORY She has a past surgical history that includes section (1989,1991); Tubal ligation (02/2005); Colonoscopy (11/2018); Esophagogastroduodenoscopy (2018); Endometrial ablation (09/2005); Stomachsurgery; Gastrectomy (08/23/2019); Upper gastrointestinal endoscopy; Hernia repair; and Abdominal zabala rgery (08-23-2019). INITIAL REVIEW OF MEDICATIONS She has a current medication list which includes the following prescription(s): bupropion xl, cholecalciferol, cyanocobalamin, escitalopram, hydroxychloroquine, multivitamin, octreotide, pravastatin,syringe 3cc/25gx1 , and valsartan-hydrochlorothiazide. DRUG ALLERGIES She has No Known Allergies. SOCIAL HISTORY She reports that she quit smoking about 23 years ago. Her smoking use included cigarettes. She started smoking about 25 years ago. She has a 2.00 pack-year smoking history. She has never used smokeless tobacco. She reports current alcohol use of about 2.0 - 3.0 standard drinks of alcohol per week. She reports previous drug use. Drug: Alcohol. FAMILY HISTORY Her family history includes Cancer in her maternal grandmother; Colon cancer in her mother's brother; Congestive Heart Failure in her father; Coronary artery disease in her mother; Dementia in her mother; Emphysema in her father; Heart attack in her brother; Heart failure in her father; No Known Problems in her sister; Ovarian cancer in her mother's sister. REVIEW OF SYSTEMS Review of symptoms were filled out by the patient on the enclosed intake form, which was reviewed and signed by me. PHYSICAL EXAMINATION The patient is a pleasant female in no acute distress. Height: 5ft, 4in, Weight: 158 lb. Alert and oriented x3. Respirations are regular and without distress. Hearing intact to the spoken word. Ambulates with a normal gait. Right knee - No pain with squat test, no pain with Thessaly. Left knee - No pain with squat test, no pain with Thessaly. Right knee - Skin is intact. No incisions. No erythema, edema, ecchymosis. Small effusion. There genet large, approximately 12 by 6 cm soft tissue mass along the right posterior knee, without superficial skin changes, nontender to palpation. Left knee - Skin is intact. No incisions. No erythema, edema, ecchymosis or effusion. Right knee - No joint line or other tenderness. Left knee - No joint line or other tenderness. Right knee -0 to 125 degrees of flexion. No crepitus. Pain with hyperflexion but not hyperextension. Left knee - 0 to 130 degrees of flexion. No crepitus. No pain with hyperflexion or hyperextension. Right knee - No pain with flexion compression. Left knee - No pain with flexion compression. Right knee - 1A Jorge, 1A anterior drawer, 1A posterior drawer. Stable to varus and valgus stressat 0 and 30 degrees of flexion. Left knee - 1A Jorge, 1A anterior drawer, 1A posterior drawer. Stable to varus and valgus stress at 0 and 30 degrees of flexion. Right lower extremity - Intact light touch over the lateral thigh, medial and lateral leg, dorsum of the foot, including first web space, and plantar aspect of the foot. 5/5 tib ant, EHL, and gastrocsoleus strength bilaterally. Palpable posterior tib pulse with regular rate and rhythm. Left lower extremity - Intact light touch over the lateral thigh, medial and lateral leg, dorsum ofthe foot, including first web space, and plantar aspect of the foot. 5/5 tib ant, EHL, and gastrocsoleus strength bilaterally. Palpable posterior tib pulse with regular rate and rhythm. REVIEW OF X-RAYS/STUDIES I independently reviewed three plain films of the right knee, including bilateral Merchant and Manuel views, taken today which show no fracture, mild diffuse degenerative changes. I independently reviewed the MRI of her right knee from 12/18/2019 which demonstrates a 10.1 x 6.5 x 3.4 cm duke's cyst, in addition to a small knee joint effusion with moderate synovitis of the suprapatellar pouch. Mild chondrosis and possible nondisplaced horizontal medial meniscus posterior horn tear. ASSESSMENT Right knee pain and swelling due to underlying mild degenerative changes with a large Duke cyst TREATMENT/PLAN I explained to Fabiola that I would recommend an aspiration and cortisone injection of the knee today.I would also schedule him sound guided aspiration injection of the Duke cyst in a few weeks. I discussed the risks and benefits of the injection, including but not limited to the risk of infection, the risk of a flare and how to minimize it, and the risk of change in pigmentation at the injection site. I explained that follow-up is as needed depending on whether she has recurrent pain, swelling and/or popliteal fullness. See procedure note for full details. She had all her questions answered and appears comfortable with this plan going forward. I was present for the critical portion of the history and physical examination. All radiographic studies were personally interpreted by me and I determined the diagnosis and treatment plan and communicated them to the patient. Jason Barber MD Professor Sports Medicine [facility] Dictated using MModal Fluency Direct. Painter Sign Maintenance variations may occur. documented in this encounter Plan of Treatment Scheduled Orders Name Type Priority Associated Diagnoses Orde r Schedule US Guided Aspiration or Injection of Major Joint Imaging Schedule Routine, Read Routine (OP Routine) Swelling of joint, knee, right Effusion of right knee Synovial cyst of right popliteal space Expected: 04/17/2022, Expires: 03/12/2023 documented as of this encounter Procedures Procedure Name Priority Date/Time Associated Diagnosis Comments [place] ARTHROCENTESIS ASPIR&/INJ MAJOR JT/BURSA W/O US Routine 03/12/2022 9:20 AM CDT Swelling of joint, knee, right Effusion of right knee documented in this encounter Results * XR [...] MD IMG XR PROCEDURES Fin al Result * [place] ARTHROCENTESIS ASPIR&/INJ MAJOR JT/BURSA W/O US (03/12/2022 9:20 AM CDT) Jason Allison IV, MD - 03/12/2022 9:20 AM CDT Jason Barber IV, MD ? 03/12/2022 12:45 PM Large Joint Injection: R knee Performed by: Jason Barber IV, MD Authorized by: Jason Barber IV, MD Large Joint Injection/Aspiration: ??Consent Given by: ??Patient ??Timeout: prior to procedure the correct patient, procedure, and site was verified ?Verbal consent obtained: Yes ?? Supporting Documentation: ??Indications: ??Pain and joint swelling Procedure Details: ??Location: ??Knee ??Site: ??R knee ??Prep: patient was prepped using a clean technique ?Approach: ??Superior lateral ??Medications: ??80 mg methylPREDNISolone acetate 40 mg/mL; 4 mL bupivacaine HCl 0.5 % (5 mg/mL); 4 mL mepivacaine 1 % (10 mg/mL) ??Aspirate amount (mL): ??8 ??Aspirate: ??Clear, serous and yellow ??Patient tolerance: ??Patient tolerated the procedure well with no immediate complications ?? I discussed the risk and benefits of the injection with the patient including but not limited to the risk of infection, the risk of a flare and how to minimize it, and the risk of change in pigmentation at the injection site. Jason Barber IV, MD IN CLINIC/BEDSIDE ORD ERABLES Final Result documented in this encounter Visit Diagnoses Diagnosis Swelling of joint, knee, right- Primary Effusion of right knee Synovial cyst of right popliteal space Right knee pain, unspecified chronicity documented in this encounter Administered Medications Inactive Administered Medications - up to 3 most recent administrations Medication Order MAR Action Action Date Dose Rate Site bupivacaine HCl (MARCAINE) 0.5 % (5 mg/mL) injection 4 mL 4 mL, One-Time Injection, Starting on Dariela 03/12/22 at 1051, For 1 doseIndications:Swelling of joint, knee, right,Effusion of right knee Given 03/12/2022 10:51 AM CDT 4 mL mepivacaine (CARBOCAINE) 1 % (10 mg/mL) injection 4 mL 4 mL, One-Time Injection, Starting on Dariela 03/12/22 at 1051, For 1 doseIndications:Swelling of joint, knee, right,Effusion of right knee Given 03/12/2022 10:51 AM CDT 4 mL methylPREDNISolone acetate (DEPO-medrol) injection 80 mg 80 mg, intra-articular, One-Time Injection, Starting on Dariela 03/12/22 at 1051, For 1 doseIndications:Swelling of joint, knee, right,Effusion of right knee Given 03/12/2022 10:51 AM CDT 80 mg documented in this encounter Care Teams Emr Specialist Relationship Specialty Start Date End Date Elizabeth Borrego PA [address] [address] [address] [place] [address] PCP - General Internal Medicine 03/25/20 09/27/23 Luann Lawrence, ANUP Nurse Practitioner Nurse Practitioner 01/06/19 Adarsh Tuttle MD [address] [place] [address] Consulting Physician Gastroenterology 02/22/19 Sebastien Martinez DO [facility] [id number] Medical Oncologist/Pre Billing Specialist Hematology and Oncology 02/22/19 Guru Winters DO [facility] [id number] Consulting Physician Gastroenterology 02/22/19 Gato Abrams MD [facility] [id number] Surgeon Surgical Oncology 09/07/19 Marina Rosales MD [address] [place] [address] Consulting Physician General Surgery 03/24/21 documented as of this encounter
--- OUTSIDE RECORDS SUMMARY | 2024-10-04 03:00 | XMS_ITS | Encounter Summary ---
Author Organization [facility] Healthcare Address [address] [place] [address] Care Team Providers Care Senior Oracle Developer Name Role Phone Luann Lawrence NP Unavailable [phone] Adarsh Tuttle MD Unavailable Sebastien Martinez DO Unavailable [phone] Guru Winters DO Unavailable [phone] Gato Abrams MD Unavailable Elizabeth Borrego Primary Care Provider [phone] Marina Rosales MD Unavailable [phone] Reason for Visit * Episode Based Medications (Routine) - Closed Specialty Diagnoses / Procedures Referred By Clemencia mendez Referred To Contact Oncology Diagnoses Malignant carcinoid tumor of stomach (HCC) Procedures [place] OCTREOTIDE INJECTION, DEPOT Sebastien Martinez DO [facility] [address] Phone: tel: fax: [facility] [address] [address] Phone: tel: fax: Referral ID Status Reason Start Date Expiration Date Visits Re quested Visits Authorized [id number] Closed 2022 02/19/2023 1 50 Encounter Details Date Type Department Care Team (Late st Contact Info) Description 02/18/2022 7:45 AM CDT Lab [facility] Lab [facility] [place] [address] Malignant carcinoid tumor of stomach (CMS/HCC) (HCC) [...] on file 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 Gender Identity Female 06/07/2020 8:39 AM CDT Sexual Orientation Not on file 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 Not on file Not on file documented as of this encounter Plan of Treatment Not on file documented as of this encounter Procedures Procedure Name Priority Date/Time Associated Diagnosis Comments EGFR Routine 02/18/2022 8:00 AM CDT Malignant carcinoid tumor of stomach (CMS/HCC) (HCC) DIFFERENTIAL AUTO STAT 02/18/2022 8:0 0 AM CDT Malignant carcinoid tumor of stomach (CMS/HCC) (HCC) CHROMOGRANIN A Routine 02/18/2022 8:00 AM CDT Malignant carcinoid tumor of stomach (CMS/HCC) (HCC) CBC WITH AUTO DIFFERENTIAL STAT 02/18/2022 8:00 AM CDT Malignant carcinoid tumor of stomach (CMS/HCC) (HCC) GASTRIN Routine 02/18/2022 8:00 AM CDT Malignant carcinoid tumor of stomach (CMS/HCC) (HCC) COMPREHENSIVE METABOLIC PANEL Routine 02/18/2022 8:00 AM CDT Malignant carcinoid tumor of stomach (CMS/HCC) (HCC) documented in this encounter Results * eGFR (02/18/2022 8:00 AM CDT) eGFR 102 mL/min/1. 73 m2 [...] reviewed 2021. Testing performed by: [facility], [address] [place] [address]., [address] Blood 02/18/2022 8:00 AM CDT 02/18/2022 8:28 AM CDT us Sebastien Martinez DO LAB BLOOD ORDERABLES Final R esult ANDREA CASTILLO [address] [facility] Department [place] [address] * Differential, auto (02/18/2022 8:00 AM CDT) Neutrophil abs 2.2 1.7 - 6.5 K/cumm ANDREA Comment:Testing performed by : [address] [address] Lymphocyte abs 0.9 0.8 - 3.3 K/cumm ANDREA Comment:Testing performed by : [address] [address] Monocyte abs 0.2 0.2 - 0.8 K/cumm ANDREA Comment:Testing performed by : [address] [address] Eosinophil abs 0.2 0.0 - 0.5 K/cumm ANDREA Comment:Testing performed by : [address] [address] Neutrophil pct 63.5 % ANDREA Comment: Interpretive Data Percent cell count reference ranges are not reported, since discordance with absolute values may lead to misinterpretation of CBC data. Current Interpretive Data was last revised on 2018. Testing performed by: [address] [address] Imm gran pct 0.3 % ANDREA Comment: Interpretive Data Percent cell count reference ranges are not reported, since discordance with absolute values may lead to misinterpretation of CBC data. Current Interpretive Data was last revised on 2018. Testing performed by: [address] [address] Lymphocyte pct 24.2 % [facility] Comment: Interpretive Data Percent cell count reference ranges are not reported, since discordance with absolute values may lead to misinterpretation of CBC data. Current Interpretive Data was last revised on 2018. Testing performed by: [address] [address] Monocyte pct 6.3 % [facility] Comment: Interpretive Data Percent cell count reference ranges are not reported, since discordance with absolute values may lead to misinterpretation of CBC data. Current Interpretive Data was last revised on 2018. Testing performed by: [address] [address] Eosinophil pct 4.6 % ANDREA Comment: Interpretive Data Percent cell count reference ranges are not reported, since discordance with absolute values may lead to misinterpretation of CBC data. Current Interpretive Data was last revised on 2018. Testing performed by: [facility], [address] [facility], [place]., [address] Basophil pct 1.1 % ANDREA Comment: Interpretive Data Percent cell count reference ranges are not reported, since discordance with absolute values may lead to misinterpretation of CBC data. Current Interpretive Data was last revised on 2018. Testing performed by: [facility], [address] [place] [address]., [address] Blood 02/18/2022 8:00 AM CDT 02/18/2022 8:28 AM CDT Sebastien Martinez DO LAB BLOOD ORDERABLES Final R esult ANDREA [address] [facility] Department [place] [address] * Chromogranin A (02/18/2022 8:00 AM CDT) Chromogranin A <20 <93 ng/mL ANDREA CASTILLO Comment: ADDITIONAL INFORMATION This test was developed and its performance characteristics determined by [facility] in a manner consistent with CLIA [...] a homogeneous time-resolved immunofluorescent assay manufactured by [employer] and performed on the Rhythm NewMediaor Compact Plus. ? Values obtained with different assay methods or kits may be different and cannot be used interchangeably. ? Test results cannot be interpreted as absolute evidence for the presence or absence of malignant disease. Test Performed by: [place] [address] Clinical Material Handler: Bjorn Morris M.D. Ph.D.; CLIA# [id number] Testing performed by: [address], [address] Blood 02/18/2022 8:00 AM CDT 02/18/2022 9:27 AM CDT Sebastien Martinez DO LAB BLOOD ORDERABLES Final R esult Performing Organization Address [facility] de Phone Number MAYI[address] [place] [address] * Gastrin (02/18/2022 8:00 AM CDT) Gastrin <10 pg/mL [facility] Comment: REFERENCE VALUE <100 Reference ranges valid for >= 8 hour fast. Test Performed by: [place] [address] Clinical Material Handler: Bjorn Morris M.D. Ph.D.; CLIA# [id number] Testing performed by: [address] [address] Blood 02/18/2022 8:00 AM CDT 02/18/2022 9:27 AM CDT Sebastien Martinez DO LAB BLOOD ORDERABLES Final R esult Performing Organization Address [facility] de Phone Number MAYI[address] [employer] [place], [place] [id number] * (ABNORMAL) CBC with auto differential (02/18/2022 8:00 AM CDT) [facility] WBC 3.5(L) 3.8 - 9.9 K/cumm ANDREA Comment:Testing performed by : [address] [address] Hgb 12.4 11.9 - 15.5 g/dL ANDREA Comment:Testing performed by : [address] [address] Hct 36.9 35.6 - 45.5 % ANDREA Comment:Testing performed by : [address] [address] Plt 237 150 - 400 K/cumm ANDREA Comment:Testing performed by : [address] [address] MPV 9.8 9.1 - 12.3 fL ANDREA Comment:Testing performed by : [address], [address] RBC 4.27 3.90 - 5.20 M/cumm ANDREA Comment:Testing performed by : [address] [address] MCV 86.4 81.3 - 96.4 fL ANDREA Comment:Testing performed by : [address] [address] MCH 29.0 27.1 - 33.3 pg ANDREA Comment:Testing performed by : [address] [address] MCHC 33.6 32.3 - 35.7 g/dL ANDREA Comment:Testing performed by : [address] [address] RDW CV 12.1 11.1 - 14.9 % ANDREA Comment:Testing performed by : [address] [address] RDW SD 38.3 35.7 - 48.1 fL ANDREA Comment:Testing performed by : [address], [address] Blood 02/18/2022 8:00 AM CDT 02/18/2022 8:28 AM CDT us Sebastien Martinez DO LAB BLOOD ORDERABLES Final R esult ANDREA CASTILLO [address] [facility] Department [place] [address] * Comprehensive metabolic panel (02/18/2022 8:00 AM CDT) Sodium 141 135 - 145 mmol/L ANDREA Comment:Testing performed by : [address] [address] Potassium, pl 4.6 3.3 - 4.9 mmol/L ANDREA Comment:Testing performed by : [address] [address] Chloride 102 97 - 110 mmol/L ANDREA Comment:Testing performed by : [address] [address] CO2 28 22 - 32 mmol/L ANDREA Comment:Testing performed by : [address] [address] Anion gap 11 2 - 15 mmol/L ANDREA Comment:Testing performed by : [address] [address] BUN 16 8 - 25 mg/dL ANDREA Comment:Testing performed by : [address] [address] Creatinine 0.70 0.60 - 1.10 mg/dL ANDREA Comment:Testing performed by : [address] [address] Glucose 132 70 - 199 mg/dL ANDREA Comment: Interpretive [...] was last revised 2017. Testing performed by: [facility], [address] [place] [address]., [address] Calcium 9.4 8.5 - 10.3 mg/dL ANDREA Comment:Testing performed by : [address] [address] Bilirubin, total 0.4 0.1 - 1.2 mg/dL [facility] Comment:Testing performed by : [address] [address] Protein, pl 6.8 6.5 - 8.5 g/dL [facility] Comment:Testing performed by : [address] [address] Albumin 4.3 3.5 - 5.0 g/dL ANDREA Comment:Testing performed by : [address] [address] Alk phos 67 40 - 130 Units/L [facility] Comment:Testing performed by : [address] [address] ALT 29 7 - 45 Units/L [facility] Comment:Testing performed by : [address] [address] AST 26 10 - 45 Units/L [facility] Comment:Testing performed by : [address] [address] Blood 02/18/2022 8:00 AM CDT 02/18/2022 8:28 AM CDT Sebastien Martinez DO LAB BLOOD ORDERABLES Final R esult [facility] [address] [facility] Department [place] [address] documented in this encounter Visit Diagnoses Diagnosis Malignant carcinoid tumor of stomach (HCC) Malignant carcinoid tumor of the stomach documented in this encounter Orders Appointment Requests Count Last Ordered Date Fi rst Ordered Date ONCBCN LAB APPOINTMENT 1 02/18/2022 documented in this encounter Care Teams Senior Oracle Developer Relationship Specialty Start Date End Date Elizabeth Borrego PA [address] [place] [address] PCP - General Internal Medicine 03/25/20 09/27/23 Luann Lawrence, ANUP Nurse Practitioner Nurse Practitioner 01/06/19 Adarsh Tuttle MD [address] [place] [address] Consulting Physician Gastroenterology 02/22/19 Sebastien Martinez DO [address] [place] [address] Medical Oncologist/Animal Caregiver Hematology and Oncology 02/22/19 Guru Winters DO [address] [place] [address] Consulting Physician Gastroenterology 02/22/19 Gato Abrams MD [address] [place] [address] Surgeon Surgical Oncology 09/07/19 Marina Rosales MD [address] [place] [address] Consulting Physician General Surgery 03/24/21 documented as of this encounter
--- OUTSIDE RECORDS SUMMARY | 2024-10-04 03:00 | XMS_ITS | Encounter Summary ---
Author Organization [facility] Address [address] [place] [address] Care Team Providers Care Tube Closing Machine Operator Name Role Phone Luann Lawrence NP Unavailable [phone] Adarsh Tuttle MD Unavailable [phone] Sebastien Martinez DO Unavailable [phone] Guru Winters DO Unavailable [phone] Gato Abrams MD Unavailable [phone] Elizabeth Borrego Primary Care Provider [phone] Marina Rosales MD Unavailable [phone] Reason for Visit * Auth/Cert Specialty Diagnoses / Procedures Referred By Contac t Referred To Contact Diagnoses Malignant carcinoid tumor of the stomach (HCC) Malignant carcinoid tumor of the stomach (CMS/HCC) (HCC) [C7A.092] Procedures EUS Referral ID Status Reason Start Date Expiration Date Visits Re quested Visits Authorized [id number] 1 1 Encounter Details Date Type Department Care Team (Late st Contact Info) Description 04/27/2022 9:05 AM CDT Anesthesia Event [facility] [address] [place] [id number] Anthony Frausto MD [facility] [facility] [place] [address] Anesthesia Record Procedure Summary Procedure Name Responsible Anesthesiologist Anesthesia Start Time Anesthesia Stop Time ESOPHAGOGASTRODUODENOSCOPY ULTRASOUND EXAM LIMITED Anthony Frausto MD 04/27/22 0905 04/27/22 0946 Events Date Time Event Comment 04/27/2022 0816 0905 An Start 0905 An Start Data 0905 In Room 0909 Patient Positioned Laterally 0909 Bite Block Placed 0909 An Induction The patient was reevaluated immediately before moderate or deep sedation use and before anesthesia induction. 0910 Proc Start 0910 Anesthesia Ready 0935 Proc Fin 0940 Out of Room 0940 an stop data 0946 Handoff to RN I completed my handoff [...] disposition at the time of handoff: PACU 0946 An Stop Meds Name Total lidocaine (cardiac) syringe 2 % 5 mL propofol 676.56 mg glycopyrrolate 0.4 mg Lactated Ringer's (LR) infusion 500 mL * Agents Name O2 * Blood No blood administrations on file. Lines, Drains, and Airways Type Details Placement Removal RETIRED Surgical Site Abdomen; 09/19/24 (Retired LDA, Removed/Completed by [employer] with LDA Utility); 1213 (Retired LDA, Removed/Completed by [employer] with LDA Utility) 05/13/20 1018 by 09/19/24 1213 by Discharge Provider, Automatic RETIRED Surgical Site 08/23/19; 1434; Abdomen; SURGICAL TROCAR ACCESS SITES X5; 09/19/24 (Retired LDA, Removed/Completed by [employer] with LDA Utility); 1213 (Retired LDA, Removed/Completed by [employer] with LDA Utility) 08/23/19 1434 by Christoph Parker RN 09/19/24 1213 by Discharge Provider, Automatic Peripheral IV Placement Date: 04/27/22; Placement Time: 834; Catheter Size: 20 G; Orientation: Right; Location: Hand; Site Prep: Chlorhexidine; Inserted by: Earlene Ortiz RN; Insertion Attempts: 1; Patient Tolerance: Tolerated well; Removal Date: 04/27/22; Removal Time: 1042 04/27/22 0835 by Earlene Ortiz RN 04/27/22 1042 by Harrison Espinoza RN documented in this encounter Social History [...] on file 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 Gender Identity Female 06/07/2020 8:39 AM CDT Sexual Orientation Not on file 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 Not on file Not on file documented as of this encounter OR Notes * Anesthesia Postprocedure Evaluation - Anthony Frausto MD - 04/27/2022 9:46 AM CDT Patient: Fabiola Gibson Procedure Summary Date: 04/27/22 Room / Location: [place] [address] / [facility] Anesthesia Start: 904 Anesthesia Stop: 945 Procedure: ESOPHAGOGASTRODUODENOSCOPY ULTRASOUND EXAM LIMITED (N/A ) Diagnosis: Malignant carcinoid tumor of the stomach (CMS/HCC) (HCC) (Malignant carcinoid tumor of the stomach (CMS/HCC) (HCC) [C7A.092]) Providers: Adarsh Tuttle MD Responsible Provider: Anthony Frausto MD Anesthesia Type: general/TIVA ASA Status: 3 Anesthesia Type: general/TIVA Last vitals BP 97/67 Pulse 56 Temp 36.7 ??C (98 ??F) (Tympanic) Resp 8 SpO2 99% Anesthesia Post Evaluation Patient location during evaluation: PACU Patient participation: complete - patient participated Level of consciousness: follows simple commands and fully awake Pain management: adequate Airway patency: adequate Cardiovascular status: acceptable and hemodynamically stable Respiratory status: acceptable Hydration status: acceptable Pt is: normothermic Nausea/Vomiting status: none No complications documented. * Anesthesia Preprocedure Evaluation - Anthony Frausto MD - 04/26/2022 1:39 PM CDT Anesthesia Evaluation Fabiola Gibson is a 56 y.o. female Procedure(s): EUS * No Diagnosis Codes entered * HISTORY Past Medical History Neurological + Psychiatric history - depression Cardiovascular + Hypertension (LBBB) + Hyperlipidemia Pertinent negatives: bare metal stent(s) Hepatic / Heme + History of anemia Endocrine / Other + Cancer history Cancer type: stomach cancer. + Rheumatological disease - rheumatoid arthritis. Functional Capacity Functional capacity: 4-6 METs Review of Systems Pertinent negatives: SOB and recent cold/flu Sinus bradycardia Left bundle branch block Abnormal ECG No previous ECGs available Confirmed by HUNG DURAN M.D ([id number]) on 05/08/2020 9:52:26 PM Specimen Collected: 05/07/20 16:32 Last Resulted: 05/08/20 21:52 Patient Active Problem List Diagnosis ??? Malignant [...] popliteal space ??? Effusion of right knee Past Medical History: Diagnosis Date ??? Anemia ??? Autoimmune disease (CMS/HCC) (HCC) ??? Cancer (CMS/HCC) (HCC) carcinode tumors ??? Carcinoid tumor of stomach ??? Chronic diarrhea ??? Colon polyp ??? Depression ??? Heart murmur ??? Hyperlipidemia ??? Hypertension ??? Left bundle branch block ??? Rheumatoid arthritis (HCC) ??? Urinary tract infection years ago Past Surgical History: Procedure Laterality Date ??? ABDOMINAL SURGERY 08-23-2019 ??? SECTION 1990,1992 twice ??? COLONOSCOPY 11/2018 ??? ENDOMETRIAL ABLATION 09/2005 ??? ESOPHAGOGASTRODUODENOSCOPY 2018 x4 ??? GASTRECTOMY 08/23/2019 partial ??? HERNIA REPAIR ??? STOMACH SURGERY ??? TUBAL LIGATION 02/2005 ??? UPPER GASTROINTESTINAL ENDOSCOPY OB History No obstetric history on file. No Known Allergies HOME MEDICATIONS : buPROPion XL (WELLBUTRIN XL) [...] syringe valsartan-hydroCHLOROthiazide (DIOVAN-HCT) 80-12.5 mg per tablet Current Outpatient Medications: ??? buPROPion XL (WELLBUTRIN XL) 150 mg 24 hr tablet ??? cholecalciferol (VITAMIN D-3) 1,000 unit capsule ??? cyanocobalamin (Vitamin B-12) 1,000 mcg/mL injection ??? escitalopram (LEXAPRO) 10 mg tablet ??? hydroxychloroquine (PLAQUENIL) 200 mg tablet ??? multivitamin capsule ??? octreotide (SandoSTATIN) 100 mcg/mL injection ??? pravastatin (PRAVACHOL) 40 mg tablet ??? syringe with needle (Syringe 3cc/25Gx1 ) 3 mL 25 gauge x 1 syringe ??? valsartan-hydroCHLOROthiazide (DIOVAN-HCT) 80-12.5 mg per tablet Social History Tobacco Use Smoking Status Former Smoker ??? Packs/day: 1.00 ??? Years: 2.00 ??? Pack years: 2.00 ??? Types: Cigarettes ??? Start date: 1996 ??? Quit date: 1998 ??? Years since quittin.5 Smokeless Tobacco Never Used Substance and Sexual Activity Alcohol Use Yes ??? Alcohol/week: 2.0 - 3.0 standard drinks ??? Types: 2 - 3 Cans of beer per week Substance and Sexual Activity Drug Use Not Currently ??? Types: Alcohol Family History Problem Relation Age of Onset ??? Dementia Mother ??? Coronary artery disease Mother s/p CABG ??? Emphysema Father ??? Heart failure Father ??? Other (Congestive Heart Failure) Father ??? No Known Problems Sister ??? Heart attack Brother ??? Ovarian cancer Mother's Sister ??? Colon cancer Mother's Brother ??? Cancer Maternal Grandmother ??? Anesthesia problems Neg Hx There were no vitals filed for this visit. PT: No results found for requested labs within last 720 hours. INR: No results found for requested labs within last 720 hours. APTT: No results found for requested labs within last 720 hours. Hgb A1C: No results found for requested labs within last 720 hours. CBC RBC: 04/15/2022: 4.20 M/cumm RDW: No results found for requested labs within last 720 hours. MCHC: 04/15/2022: 33.8 g/dL MCH: 04/15/2022: 29.3 pg MCV: 04/15/2022: 86.7 fL Hct: 04/15/2022: 36.4 % Hgb: 04/15/2022: 12.3 g/dL WBC: 04/15/2022: 4.0 K/cumm MPV: 04/15/2022: 9.6 fL Platelets: 04/15/2022: 252 K/cumm RDW CV: 04/15/2022: 12.2 % RDW Sd: 04/15/2022: 38.6 fL BMP Glucose: 04/15/2022: 114 mg/dL Calcium: 04/15/2022: 9.6 mg/dL Sodium: 04/15/2022: 143 mmol/L Potassium: 04/15/2022: 4.5 mmol/L CO2: 04/15/2022: 27 mmol/L Chloride: 04/15/2022: 104 mmol/L BUN: 04/15/2022: 15 mg/dL Creatinine: 04/15/2022: 0.80 mg/dL DOS Physical Exam Medical history, medications, and allergies reviewed. Attestation: This PAT evaluation 04/27/2022. Airway Exam: Mallampati: II Cervical ROM: FROM Cardiovascular Exam: Rate: bradycardia Rhythm: regular (Wide complex bradycardia) EENT Exam: trachea midline Dental Exam: Otherwise appears intact Anesthesia Plan ASA 3 My patient is approved for the Anesthesia Controlled Medication protocol when under care of a MATRIX PLATER Planned anesthesia: General/TIVA Team communication plan: mask Induction: Induction: intravenous. Postoperative Plan: No plan for postoperative opioid use. No postoperative mechanical ventilation intended. Patient's planned disposition post procedure is Outpatient. Informed Consent: Discussed plan with MATRIX PLATER. Anesthesia plan and risks discussed with patient. [...] MAR Action Action Date Dose Rate Site glycopyrrolate (ROBINUL) injection intravenous, Administer over 1 Minutes, As needed, Starting on Wed04/27/22 at 0920, Anesthesia Intra-op Given 04/27/2022 9:28 AM CDT 0.2 mg Given 04/27/2022 9:20 AM CDT 0.2 mg Lactated Ringer's (LR) infusion 30 mL/hr, intravenous, Continuous, Starting on Wed04/27/22 at 0845, Rate/Dose Verify 04/27/2022 9:05 AM CDT 30 mL/hr New Bag 04/27/2022 8:43 AM CDT 30 mL/hr 30 mL/hr lidocaine (cardiac) (XYLOCAINE) preservative free injection intravenous, As needed, Starting on Wed04/27/22 at 0909, Anesthesia Intra-op, Indications: Ventricular ArrhythmiasIndications:Ventricular Arrhythmias Given 04/27/2022 9: 09 AM CDT 5 mL propofoL (DIPRIVAN) 10 mg/mL IV intravenous, As needed, Starting on Wed04/27/22 at 0909, Anesthesia Intra-op Given 04/27/2022 9:26 AM CDT 50 mg New Bag 04/27/2022 9:16 AM CDT 200 mcg/kg/min 84.96 mL/ hr Given 04/27/2022 9:12 AM CDT 200 mg documented in this encounter Care Teams Tube Closing Machine Operator Relationship Specialty Start Date End Date Elizabeth Borrego PA [address] [place] [address] PCP - General Internal Medicine 03/25/20 09/27/23 Luann Lawrence NP Nurse Practitioner Nurse Practitioner 01/06/19 Adarsh Tuttle MD [address] [facility] [address] [place] [address] Consulting Physician Gastroenterology 02/22/19 Sebastien Martinez DO [address] [address] Medical Oncologist/Profile Saw Operator Hematology and Oncology 02/22/19 Guru Winters DO [address] [address] Consulting Physician Gastroenterology 02/22/19 Gato Abrams MD [address] [facility] [address] [place] [address] Surgeon Surgical Oncology 09/07/19 Marina Rosales MD [address] [facility] [address] [place], [place] [id number] Consulting Physician General Surgery 03/24/21 documented as of this encounter
--- OUTSIDE RECORDS SUMMARY | 2024-10-04 03:00 | XMS_ITS | Encounter Summary ---
Author Organization [facility] Address [address] [place] [address] Phone Care Team Providers Care Patching Machine Operator Name Role Phone Luann Lawrence ANUP Unavailable [phone] Adarsh Tuttle MD Unavailable [phone] Sebastien Martinez DO Unavailable [phone] Guru Winters DO Unavailable [phone] Gato Abrams MD Unavailable [phone] Elizabeth Borrego Primary Care Provider [phone] Marina Rosales MD Unavailable [phone] Encounter Details Date Type Department Care Team (Late st Contact Info) Description 11/26/2021 Orders Only 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 Not on file Not on file documented as of this encounter Plan of Treatment Not on file documented as of this encounter Visit Diagnoses Diagnosis Malignant carcinoid tumor of stomach (HCC)- Primary Malignant carcinoid tumor of the stomach documented in this encounter Care Teams Patching Machine Operator Relationship Specialty Start Date End Date Elizabeth Borrego PA [address] [facility] 500 [place] [address] PCP - General Internal Medicine 03/25/20 09/27/23 Luann Lawrence NP Nurse Practitioner Nurse Practitioner 01/06/19 Adarsh Tuttle MD [address] [facility] [address] [place] [address] Consulting Physician Gastroenterology 02/22/19 Sebastien Martinez DO [address] [place] [id number] Medical Oncologist/Gym Teacher Hematology and Oncology 02/22/19 Guru Winters DO [address] [place] [address] Consulting Physician Gastroenterology 02/22/19 Gato Abrams MD [address] [place] [address] [address] [place] [address] Surgeon Surgical Oncology 09/07/19 Marina Rosales MD [address] [facility] 500 [place], [place] [id number] Consulting Physician General Surgery 03/24/21 documented as of this encounter
--- OUTSIDE RECORDS SUMMARY | 2024-10-04 03:00 | XMS_ITS | Encounter Summary ---
Author Organization [facility] Address [address] [facility] [address] [place] [address] Phone Care Team Providers Care Nursing Information Systems Coordinator Name Role Phone Luann Lawrence ANUP Unavailable [phone] Adarsh Tuttle MD Unavailable [phone] Sebastien Martinez DO Unavailable [phone] Guru Winters DO Unavailable [phone] Gato Abrams MD Unavailable [phone] Elizabeth Borrego Primary Care Provider [phone] Marina Rosales MD Unavailable [phone] Reason for Visit * Reason Onset Date Comments Appointment 12/03/2021 Encounter Details Date Type Department Care Team (Late st Contact Info) Description 12/03/2021 Telephone [facility] Department of Hepatobiliary, Pancreatic, & Gastrointestinal Surgery [address] [facility] Medicine 12th Floor, [place] [address] Gato Abrams MD [address] [facility] [phone] [place] [address] Appointment Social History Tobacco Use Types Packs/Day Years [...] on file 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 Gender Identity Female 06/07/2020 8:39 AM CDT Sexual Orientation Not on file 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 500 [place] [address] PCP - General Internal Medicine 03/25/20 09/27/23 Luann Lawrence NP Nurse Practitioner Nurse Practitioner 01/06/19 Adarsh Tuttle MD [address] [facility] [address] [place] [address] Consulting Physician Gastroenterology 02/22/19 Sebastien Martinez DO [facility] [facility] [address] [place] [address] Medical Oncologist/Head Baker Hematology and Oncology 02/22/19 Guru Winters DO [address] [place] [address] Consulting Physician Gastroenterology 02/22/19 Gato Abrams MD [address] [place] [address] Surgeon Surgical Oncology 09/07/19 Marina Rosales MD [facility] [facility] 500 [place], [place] [address] Consulting Physician General Surgery 03/24/21 documented as of this encounter
--- OUTSIDE RECORDS SUMMARY | 2024-10-04 03:00 | XMS_ITS | Encounter Summary ---
Author Organization [facility] Address [address] [place] [address] Phone Care Team Providers Care Product Representative Name Role Phone Luann Lawrence ANUP Unavailable [phone] Adarsh Tuttle MD Unavailable [phone] Sebastien Martinez DO Unavailable [phone] Guru Winters DO Unavailable [phone] Gato Abrams MD Unavailable [phone] Elizabeth Borrego Primary Care Provider [phone] Marina Rosales MD Unavailable [phone] Elizabeth Borrego Primary Care Provider [phone] Encounter Details Date Type Department Care Team (Late st Contact Info) Description 05/07/2022 Orders Only [facility] [phone] Scanning, Provider Social History Tobacco Use Types [...] on file 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 Gender Identity Female 06/07/2020 8:39 AM CDT Sexual Orientation Not on file 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 Not on file Not on file documented as of this encounter Plan of Treatment Not on file documented as of this encounter Procedures Procedure Name Priority Date/Time Associated Diagnosis Comments SCAN - RADIOLOGY/IMAGING 05/07/2022 documented in this encounter Results * SCAN - RADIOLOGY/IMAGING (05/07/2022) Anatomical Region Laterality Modality Other us Provider Scanning Final Result documented in this encounter Visit Diagnoses Not on filedocumented in this encounter Care Teams Product Representative Relationship Specialty Start Date End Date Elizabeth Borrego PA [address] [facility] [address] [place] [address] PCP - General Internal Medicine 03/25/20 09/27/23 Elizabeth Borrego PA [address] [facility] [address] [place] [address] PCP - General Internal Medicine 09/28/23 Luann Lawrence NP Nurse Practitioner Nurse Practitioner 01/06/19 Adarsh Tuttle MD [address] [facility] [address] [place] [address] Consulting Physician Gastroenterology 02/22/19 Sebastien Martinez DO [address] [facility] [place] 180 [place] [address] Medical Oncologist/Telegraph Service Clerk Hematology and Oncology 02/22/19 Guru Winters DO [address] [place] [address] Consulting Physician Gastroenterology 02/22/19 Gato Abrams MD [address] [place] [address] Surgeon Surgical Oncology 09/07/19 Marina Rosales MD [address] [place] [address] [address] [place], [place] [id number] Consulting Physician General Surgery 03/24/21 documented as of this encounter
--- OUTSIDE RECORDS SUMMARY | 2024-10-04 03:00 | XMS_ITS | Encounter Summary ---
Author Organization [facility] Address [address] [facility] [address] [place] [address] Phone Care Team Providers Care Electroneurodiagnostic Technologist Name Role Phone Luann Lawrence ANUP Unavailable [phone] Adarsh Tuttle MD Unavailable [phone] Sebastien Martinez DO Unavailable [phone] Guru Winters DO Unavailable [phone] Gato Abrams MD Unavailable [phone] Elizabeth Borrego Primary Care Provider [phone] Marina Rosales MD Unavailable [phone] Reason for Visit * Consultation (Routine) - Closed Specialty Diagnoses / Procedures Referred By Contjimmy t Referred To Contact Hepatobiliary Surgery Diagnoses Malignant carcinoid tumor of stomach (HCC) Guru Winters DO Phone: tel: fax: Gato Abrams MD [address] [facility] [place] [place] [phone] [place] [address] Phone: tel: fax: Referral ID Status Reason Start Date Expiration Date V isits Requested Visits Authorized [id number] Closed Specialty Services Required 12/03/2021 01/02/2023 1 1 Encounter Details Date Type Department Care Team (Latest Contact Info) Description 03/30/2022 1:15 PM CDT Office Visit [facility] Department of Hepatobiliary, Pancreatic, & Gastrointestinal Surgery [address] [facility] 12th Floor, [place] [address] Gato Abrams MD [address] [facility] [phone] [place] [address] Malignant carcinoid tumor of stomach (CMS/HCC) (HCC) [...] on file 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 Gender Identity Female 06/07/2020 8:39 AM CDT Sexual Orientation Not on file 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 Gato Abrams M.D., Guillermo. Chief, Section of Surgical Oncology limited radiology technician [facility] - voice - fax USPS Mailing Address: Overnight Mailing Address: [address] [place] [address] [address] [facility], [address] [place], [place] [address] [place] [address] FOLLOW-UP VISIT DATE OF VISIT: 03/30/22 REASON FOR VISIT: Ms. Gibson presents today [...] of life. Her weight has been stable. Continues on octreotide with Dr. Martinez. She had her incisional hernia repaired by Dr. Rosales in April, and has recovered well. Her lastEGD was in March, with no new mucosal lesions and a patent and healthy anastomosis. Stable pancreatic head nodule, 7 mm. Repeat endoscopy planned for later this summer. Ms. Gibson underwent a pancreas-protocol CT scan today, which I ordered and have personally reviewed, demonstrating a stable 6 mm enhancing lesion in the pancreatic uncinate. The implications of theseimaging findings and significance for Ms. Gibson's diagnosis include further treatment and follow-uprecommendations and were discussed with Ms. Gibson. Ms. Gibson underwent recent blood work, which I have personally reviewed. This includes: CBC: Lab Results Component Value Date WBC 4.9 03/18/2022 HGB 13.3 03/18/2022 HCT 40.1 03/18/2022 MCV 86.4 03/18/2022 LABPLAT 298 03/18/2022 BMP: Lab Results Component Value Date GLUCOSE 170 03/18/2022 CALCIUM 9.6 03/18/2022 SODIUM 142 03/18/2022 POTASSIUM 4.3 03/18/2022 CO2 31 03/18/2022 CHLORIDE 102 03/18/2022 BUNSER 14 03/18/2022 CREATININE 0.80 03/18/2022 LFTs: Lab Results Component Value Date ALT 46 (H) 03/18/2022 AST 23 03/18/2022 ALKPHOS 81 03/18/2022 BILITOT 0.4 03/18/2022 Albumin Lab Results Component Value Date ALBUMIN 4.5 03/18/2022 The implications of these lab results and significance for Ms. Gibson's diagnosis include further treatment and follow-up recommendations and were discussed with Ms. Gibson. PHYSICAL EXAMINATION: VITAL SIGNS: Height 162.6 cm (5' 4 ), weight 70.3 kg (155 lb). GENERAL: Alert and oriented x 3 in no apparent distress. ABDOMEN: Soft, nontender, nondistended with no masses or hernias. No hepatosplenomegaly. No reboundor guarding. Lap sites are well healed with no evidence of hernia recurrence. ASSESSMENT: 56 y.o. female who is doing well after distal gastrectomy for atrophic gastritis and gastric carcinoids with no evidence of recurrent or metastatic disease. 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 PLAN: Ms. Gibson is seeing Dr. Martinez later this month and I think it would be resonable to consider stopping her octreotide later this year and just watch things. I will plan to see Ms. Gibson back in approximately 1 year for continued follow-up with a repeat CT scan of the abdomen and pelvis withpancreas protocol to monitor her small pancreatic lesion. She should have a repeat endoscopy annually for continued endoscopic surveillance of her stomach for new carcinoid tumors, which can be arranged with Dr. Tuttle or Singh. I answered all of Ms. Gibson's questions to her satisfaction. ATTENDING ATTESTATION: I, Gato Abrams M.D., the attending surgeon have seen and examined the patient both with Dr. Lopez and independently. I agree with the history, physical exam, and findings as described in the above note. My total encounter time on 03/30/2022 was 31 minutes which was spent in the activities documented inthe note. This includes time spent prior to the visit and after the visit in direct care of the patient. This time does not include time spent in any separately reportable services. Gato Abrams M.D., Guillermo. Chief, Section of Surgical Oncology limited radiology technician CC: Patient Care Team: Elizabeth Borrego PA as PCP - General (Internal Medicine) Luann Lawrence NP as Nurse Practitioner (Nurse Practitioner) Adarsh Tuttle MD as Consulting Physician (Gastroenterology) Sebastien Martinez DO as Medical Oncologist/Machine Stacker (Hematology and Oncology) Guru Winters DO as Consulting Physician (Gastroenterology) Gato Abrams MD as Surgeon (Surgical Oncology) Marina Rosales MD as Consulting Physician (General Surgery) Production Clerks Supervisor completed by [employer]. Production Clerks Supervisor variances may occur. documented in this encounter Plan of Treatment Not on file documented as of this encounter Visit Diagnoses Diagnosis Malignant carcinoid tumor of stomach (HCC)- Primary Malignant carcinoid tumor of the stomach documented in this encounter Orders Outpatient Referral Count Last Ordered Date st Ordered Date AMB REFERRAL TO HEPATOBILIARY SURGERY 1 documented in this encounter Care Teams Electroneurodiagnostic Technologist Relationship Specialty Start Date End Date Elizabeth Borrego PA [address] [facility] [address] [place] [address] PCP - General Internal Medicine 03/25/20 09/27/23 Luann Lawrence NP Nurse Practitioner Nurse Practitioner 01/06/19 Adarsh Tuttle MD [address] [facility] [address] [place] [address] Consulting Physician Gastroenterology 02/22/19 Sebastien Martinez DO [address] [place] [address] Medical Oncologist/Machine Stacker Hematology and Oncology 02/22/19 Guru Winters DO [address] [place] [address] Consulting Physician Gastroenterology 02/22/19 Gato Abrams MD [address] [place] [address] Surgeon Surgical Oncology 09/07/19 Marina Rosales MD [address] [facility] 500 [place], [place] [id number] Consulting Physician General Surgery 03/24/21 documented as of this encounter
--- OUTSIDE RECORDS SUMMARY | 2024-10-04 03:00 | XMS_ITS | Encounter Summary ---
Author Organization [facility] Address [address] [place] [address] Care Team Providers Care Primer Press Operator Name Role Phone Luann Lawrence NP Unavailable [phone] Adarsh Tuttle MD Unavailable Sebastien Martinez DO Unavailable [phone] Guru Winters DO Unavailable [phone] Gato Abrams MD Unavailable [phone] Elizabeth Borrego Primary Care Provider [phone] Marina Rosales MD Unavailable [phone] Reason for Visit * Auth/Cert Specialty Diagnoses / Procedures Referred By Contac t Referred To Contact Diagnoses Malignant carcinoid tumor of the stomach (HCC) Malignant carcinoid tumor of the stomach (CMS/HCC) (HCC) [C7A.092] Procedures EUS Referral ID Status Reason Start Date Expiration Date Visits Re quested Visits Authorized [id number] 1 1 Encounter Details Date Type Department Care Team (Latest Contact Info) Description 04/27/2022 8:30 AM CDT - 04/27/2022 9:[address] [facility] [address] [place] [id number] Adarsh Tuttle MD [address] [facility] [address] [address] [place] [address] ESOPHAGOGASTRODUODENOSCOPY ULTRASOUND EXAM LIMITED Surgery Details Date/Time Status Location OR Service Patient Class Case Class Case Type Trauma Case? 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 Not on file Not on file documented as of this encounter Last Filed Vital Signs Vital Sign Reading Time Taken Comments Blood Pressure 144/84 04/27/2022 8:26 AM CDT Pulse 52 04/27/2022 8:26 AM CDT Temperature 36.7 ??C (98 ??F) 04/27/2022 8:26 AM CDT Respiratory Rate 16 04/27/2022 8:26 AM CDT Oxygen Saturation 99% 04/27/2022 8:26 AM CDT Inhaled Oxygen Concentration - - Weight 70.8 kg (156 lb) 04/27/2022 8:26 AM CDT Height 162.6 cm (5' 4 ) 04/27/2022 8:26 AM CDT Body Mass Index 26.78 04/27/2022 8:26 AM CDT documented in this encounter Medications at Time of Discharge cholecalciferol (VITAMIN D-3) 1,000 unit capsuleIndicati ons:Vitamin D Deficiency Take 2 capsules (2,000 Units total) by mouth bar machine operator multiple spindle before breakfast buPROPion XL (WELLBUTRIN XL) 150 [...] 1 tablet (200 mg total) by mouth bar machine operator multiple spindle before breakfast 01/30/2019 09/30/20 23 multivitamin capsuleIndicati ons:Vitamin Deficiency Prevention Take 1 capsule by mouth bar machine operator multiple spindle before breakfast 04/14/20 24 octreotide (SandoSTATIN) 100 [...] H&P Notes * Adarsh Tuttle MD - 04/27/2022 8:57 AM CDT ENDOSCOPY PRE-PROCEDURE MEDICAL HISTORY & PHYSICAL Fabiola Gibson 56 y.o. female BP 144/84 Pulse 52 Temp 36.7 ??C (98 ??F) (Tympanic) Resp 16 Ht 162.6 cm (5' 4 ) Wt 70.8 kg (156 lb) SpO2 99% BMI 26.78 kg/m?? History: Past Medical History: Diagnosis Date ??? Anemia ??? Autoimmune disease (CMS/HCC) (HCC) ??? Cancer (CMS/HCC) (HCC) carcinode tumors ??? Carcinoid tumor of stomach ??? Colon polyp ??? Depression ??? Heart murmur ??? Hyperlipidemia ??? Hypertension ??? Left bundle branch block ??? Rheumatoid arthritis (HCC) ??? Urinary tract infection years ago No Known Allergies Medications Prior to Admission Medication Sig Dispense Refill Last Dose ??? buPROPion XL (WELLBUTRIN XL) 150 mg 24 hr tablet TAKE 1 TABLET BY MOUTH IN THE MORNING 90 tablet 3 ??? cholecalciferol (VITAMIN D-3) 1,000 unit capsule Take 2,000 Units by mouth bar machine operator multiple spindle beforebreakfast ??? cyanocobalamin (Vitamin B-12) 1,000 mcg/mL injection INJECT 1 ML INTRAMUSCULARLY INSTRUCTED EVERY 30 DAYS (DISCARD 28 DAYS AFTER FIRST USE) 3 mL 2 ??? escitalopram (LEXAPRO) 10 mg tablet TAKE 1 TABLET BY MOUTH IN THE MORNING 90 tablet 3 ??? hydroxychloroquine (PLAQUENIL) 200 mg tablet Take 400 mg by mouth bar machine operator multiple spindle before breakfast ??? multivitamin capsule Take 1 capsule by mouth bar machine operator multiple spindle before breakfast ??? octreotide (SandoSTATIN) 100 mcg/mL injection 1 mL every 8 hours ??? pravastatin (PRAVACHOL) 40 mg tablet TAKE 1 TABLET BY MOUTH IN THE MORNING 90 tablet 3 ??? syringe with needle (Syringe 3cc/25Gx1 ) 3 mL 25 gauge x 1 syringe 1 Syringe every 30 (thirty)days For use with monthly IM Vitamin B12 injections 30 each 0 ??? valsartan-hydroCHLOROthiazide (DIOVAN-HCT) 80-12.5 mg per tablet Take 1 tablet by mouth daily 90 tablet 3 Current Facility-Administered Medications Medication Dose Route Frequency Provider Last Rate Last Admin ??? Lactated Ringer's (LR) infusion 30 mL/hr intravenous Continuous Adarsh Tuttle MD 30 mL/hr at 04/27/22 0843 30 mL/hr at 04/27/22 0843 ??? sodium chloride 0.9% flush 0.5-20 mL 0.5-20 mL intra-catheter Q8H JESSICA Adarsh Tuttle MD ??? sodium chloride 0.9% flush 0.5-20 mL 0.5-20 mL intra-catheter PRN Adarsh Tuttle MD ??? sodium chloride 0.9% infusion 30 mL/hr intravenous Continuous Adarsh Tuttle MD Physicial Exam: Physical exam is normal ASA Evaluation and Anesthesia Plan: ASA 3 - Patient with moderate systemic disease with functional limitations Indication(s) for Procedure: gastric carcinoid Procedure Planned: EUS Adarsh Tuttle MD documented in this encounter Procedure Notes * Adarsh Tuttle MD - 04/27/2022 9:04 AM CDTAssociated Order(s): EUS ENDOSCOPY LAB Patient Name: Fabiola Gibson Procedure Date: 04/27/2022 9:04 AM Admit Type: Outpatient Room: [facility] Date of : 1965 Instrument Name: [id number],GFUT [id number] Gender: Female Note Status: Finalized Procedure: Upper EUS Indications: h/o gastric NET, laparoscopic distal gastrectomy with Billroth II gastrojejunostomy on 08/23/2019 for treatment of atrophic gastritis, well-differentiated gastric carcinoid tumors, hyper-gastrin state. EUS for surveillance. Recent CT suggested a small pancreatic uncinate NET Providers: Adarsh Tuttle M.D. Referring MD: Sebastien Martinez D.O., Elizabeth Borrego PA-C, Gato Abrams M.D. Medicines: Monitored Anesthesia Care Complications: No immediate complications. Estimated blood loss: Minimal. Estimated Blood Loss: Estimated blood loss was minimal. Procedure: The risks, benefits and alternatives were discussed and informed consent was obtained. The Endosonoscope was introduced through the mouth, and advanced to the second part of duodenum The was introduced through the mouth, and advanced to the second part of duodenum The upper EUS was accomplished without difficulty. The patient tolerated the procedure well. Findings: ENDOSCOPIC FINDING: : The examined esophagus was normal. Diffuse atrophic mucosa was found in the gastric body. Evidence of a patent Billroth II gastrojejunostomy was found. The gastrojejunal anastomosis was characterized by healthy appearing mucosa. This was traversed. The efferent limb was examined. The afferent limb was examined. ENDOSONOGRAPHIC FINDING: : The region of the celiac plexus and celiac ganglia was visualized and showed no sign of significant endosonographic abnormality. The vascular anatomy of the region was normal. There was no sign of significant endosonographic abnormality in the left lobe of the liver and in the right lobe of the liver. No focal pathology was identified. There was no sign of significant endosonographic abnormality in the gallbladder. Endosonographic images of the stomach were unremarkable. No pathologic lymphadenopathy, no masses and no wall thickening were identified. Pancreatic parenchymal abnormalities were noted in the entire pancreas. These consisted of atrophy. The pancreatic duct had a dilated endosonographic appearance in the main pancreatic duct. The pancreatic duct measured up to 3 mm in diameter. A round lesion/nodule was identified in the pancreatic head. The mass was hypoechoic. The mass measured 7 mm by 6 mm in maximal cross-sectional diameter. It was difficult to identify due to B-2 anatomy. The ampulla or CBD were not clearly seen on EUS. The NET lesion was best seen on short position during withdrawl at the proximal afferent loop, close to the anastomosis, below the portal vein. Sampling was not possible due to portal vein in the path of the needle. The endosonographic borders were well-defined. An intact interface was seen between the lesion and the adjacent structures suggesting a lack of invasion. The remainder of the pancreas was examined. The endosonographic appearance of parenchyma and the upstream pancreatic duct indicated duct dilation. Impression: - Gastric mucosal atrophy. There was no [...] a neuroendocrine tumor. The nodule/lesion was stable in size and appearance. - No specimens collected. Recommendation: - The patient will be observed post-procedure, until all discharge criteria are met. - Repeat the upper endoscopic ultrasound in 1 year for surveillance. - The findings and recommendations were discussed with the patient and their family. Attending Participation: I personally performed the entire procedure. Electronically signed by Adarsh Tuttle MD Adarsh Tuttle M.D. 04/27/2022 9:48:07 AM This document was signed electronically. Number of Addenda: 0 Note Initiated On: 04/27/2022 9:04 AM Scope In: Scope Out: documented in this encounter Plan of Treatment Pending Results Name Type Priority Associated Diagnoses Date /Time US Endoscopy Endo Imaging Procedure IP Routine Malignant carcinoid tumor of the stomach (CMS/HCC) (HCC) 04/27/2022 9:40 AM CDT documented as of this encounter Procedures Procedure Name Priority Date/Time Associated Diagnosis Comments US ENDOSCOPIC IP Routine 04/27/2022 9:40 AM CDT Malignant carcinoid tumor of the stomach (CMS/HCC) (HCC) ESOPHAGOGASTRODUODENOSCOPY ULTRASOUND EXAM LIMITED 04/27/2022 9:05 AM CDT Malignant carcinoid tumor of the stomach (CMS/HCC) (HCC) EUS 04/27/2022 9:04 AM CDT documented in this encounter Results * EUS (04/27/2022 9:04 AM CDT) Anatomical Region Laterality Modality Other Narrative Procedure Note Adarsh Tuttle MD - 04/27/2022 9:04 AM CDT ENDOSCOPY LAB Patient Name: Fabiola Gibson Procedure Date: 04/27/2022 9:04 AM Admit Type: Outpatient Room: [facility] Date of : 1965 Instrument Name: [id number] Gender: Female Note Status: Finalized Procedure: Upper EUS Indications: h/o gastric NET, laparoscopic distal gastrectomywith Billroth II gastrojejunostomy on 08/23/2019 for treatment of atrophic gastritis,well-differentiated gastric carcinoid tumors, hyper-gastrin state. EUSfor surveillance. Recent CT suggested a smallpancreatic uncinate NET Providers: Adarsh Tuttle M.D. Referring MD: Sebastien Martinez D.O., Elizabeth Borrego PA-C,Gato Abrams M.D. Medicines: Monitored Anesthesia Care Complications: No immediate complications. Estimated blood loss: Minimal. Estimated Blood Loss: Estimated blood loss was minimal. Procedure: The risks, benefits and alternatives were discussed and informed consent was obtained. TheEndosonoscope was introduced through the mouth, and advanced tothe second part of duodenum The was introduced throughthe mouth, and advanced to the second part of duodenumThe upper EUS was accomplished without difficulty. The patient tolerated the procedure well. Findings: ENDOSCOPIC FINDING: : The examined esophagus was normal. Diffuse atrophic mucosa was found in the gastric body. Evidence of a patent Billroth II gastrojejunostomy was found. The gastrojejunal anastomosis was characterized by healthy appearingmucosa. This was traversed. The efferent limb was examined. The afferent limb was examined. ENDOSONOGRAPHIC FINDING: : The region of the celiac plexus and celiac ganglia was visualized and showed no sign of significant endosonographic abnormality. Thevascular anatomy of the region was normal. There was no sign of significant endosonographic abnormality in theleft lobe of the liver and in the right lobe of the liver. No focalpathology was identified. There was no sign of significant endosonographic abnormality in the gallbladder. Endosonographic images of the stomach were unremarkable. Nopathologic lymphadenopathy, no masses and no wall thickening were identified. Pancreatic parenchymal abnormalities were noted in the entirepancreas. These consisted of atrophy. The pancreatic duct had a dilated endosonographic appearance in themain pancreatic duct. The pancreatic duct measured up to 3 mm indiameter. A round lesion/nodule was identified in the pancreatic head. The mass was hypoechoic. The mass measured 7 mm by 6 mm in maximal cross-sectional diameter. It was difficult to identify due to B-2 anatomy. The ampulla or CBD were not clearly seen on EUS. The NETlesion was best seen on short position during withdrawl at the proximal afferent loop, close to the anastomosis, below the portal vein.Sampling was not possible due to portal vein in the path of the needle. The endosonographic borders were well-defined. An intact interface wasseen between the lesion and the adjacent structures suggesting a lack of invasion. The remainder of the pancreas was examined. The endosonographic appearance of parenchyma and the upstream pancreatic duct indicated duct dilation. Impression: - Gastric mucosal atrophy. There was no [...] a neuroendocrine tumor. The nodule/lesion was stable in size and appearance. - No specimens collected. Recommendation: - The patient will be observed post-procedure,until all discharge criteria are met. - Repeat the upper endoscopic ultrasound in 1 yearfor surveillance. - The findings and recommendations were discussedwith the patient and their family. Attending Participation: I personally performed the entire procedure. Electronically signed by Adarsh Tuttle MD Adarsh Tuttle M.D. 04/27/2022 9:48:07 AM This document was signed electronically. Number of Addenda: 0 Note Initiated On: 04/27/2022 9:04 AM Scope In: Scope Out: us Adarsh [...] 8:43 AM CDT 30 mL/hr 30 mL/hr sodium chloride 0.9% flush 0.5-20 mL 0.5-20 mL, intra-catheter, Every 8 hours scheduled, First dose on Wed04/27/22 at 0845, Pre-Procedure (GI), Flush volume based on line type and size. sodium chloride 0.9% flush 0.5-20 mL 0.5-20 mL, intra-catheter, As needed, line care, Starting on Wed04/27/22 at 0812, Pre-Procedure (GI), Flush volume based on line type and size. Flush before and after each use. sodium chloride 0.9% infusion 30 mL/hr, intravenous, Continuous, Starting on Wed04/27/22 at 0845, Pre- Procedure (GI), If chronic renal disease or requested by anesthesia documented in this encounter Active and Recently Administered Medications Times are shown in CDT. Scheduled Medication Order 04/25/2022 04/26/2022 04/27/2022 sodium chloride 0.9% flush 0.5-20 mL 0.5-20 mL, intra-catheter, Every 8 hours scheduled, First dose on Wed04/27/22 at 0845, Pre-Procedure (GI), Flush volume based on line type and size. 0845 (Due) Continuous Medication Order 04/25/2022 04/26/2022 04/27/2022 Lactated Ringer's (LR) infusion 30 mL/hr, intravenous, Continuous, Starting on Wed04/27/22 at 0845, 0843 (New Bag - Prov ider: Earlene Ortiz RN)0905 (Rate/Dose Verify - Provider: Jovita Thurman CRNA)0946 (Anesthesia Volume Adjustment - Provider: Jovita Thurman CRNA)1040 (Stopped - Provider: Harrison Espinoza RN) sodium chloride 0.9% infusion 30 mL/hr, intravenous, Continuous, Starting on Wed04/27/22 at 0845, Pre-Procedure (GI), If chronic renal disease or requested by anesthesia 0845 (Due) PRN Medication Order 04/25/2022 04/26/2022 04/27/2022 sodium chloride 0.9% flush 0.5-20 mL 0.5-20 mL, intra-catheter, As needed, line care, Starting on Wed04/27/22 at 0812, Pre-Procedure (GI), Flush volume based on line type and size. Flush before and after each use. documented in this encounter Orders Medications Ordered That Anthony ht Not Have Been Administered Count Last Ordered Date First Ordered Date sodium chloride 0.9% flush 0.5-20 mL 2 04/17 sodium chloride 0.9% infusion 1 04/27/2022 Discharge Count Last Ordered Date First Orde red Date DISCHARGE PATIENT 1 04/27/2022 documented in this encounter Care Teams Primer Press Operator Relationship Specialty Start Date End Date Elizabeth Borrego PA [address] [place] [address] PCP - General Internal Medicine 03/25/20 09/27/23 Luann Lawrence NP Nurse Practitioner Nurse Practitioner 01/06/19 Adarsh Tuttle MD [address] [place] [address] Consulting Physician Gastroenterology 02/22/19 Sebastien Martinez DO [address] [place] [id number] Medical Oncologist/Weatherization Director Hematology and Oncology 02/22/19 Guru Winters DO [address] [place] [address] Consulting Physician Gastroenterology 02/22/19 Gato Abrams MD [address] [place] [phone] Surgeon Surgical Oncology 09/07/19 Marina Rosales MD [address] [place] [address] Consulting Physician General Surgery 03/24/21 documented as of this encounter
--- OUTSIDE RECORDS SUMMARY | 2024-10-04 03:00 | XMS_ITS | Encounter Summary ---
Author Organization [facility] Address [address] [place] [address] Phone Care Team Providers Care Towerman Name Role Phone Luann Lawrence ANUP Unavailable [phone] Adarsh Tuttle MD Unavailable [phone] Sebastien Martinez DO Unavailable [phone] Guru Winters DO Unavailable [phone] Gato Abrams MD Unavailable [phone] Elizabeth Borrego Primary Care Provider [phone] Marina Rosales MD Unavailable [phone] Encounter Details Date Type Department Care Team (Late st Contact Info) Description 01/20/2022 Orders Only [facility] Oncology [address] [facility] [address] [place] [phone] Sebastien Martinez DO [address] [facility] [address] [place] [id number] Malignant carcinoid tumor of stomach (CMS/HCC) [...] on file 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 Gender Identity Female 06/07/2020 8:39 AM CDT [...] stomach documented in this encounter Care Teams Towerman Relationship Specialty Start Date End Date Elizabeth Borrego PA [address] [facility] [address] [place] [address] PCP - General Internal Medicine 03/25/20 09/27/23 Luann Lawrence NP Nurse Practitioner Nurse Practitioner 01/06/19 Adarsh Tuttle MD [address] [facility] [address] [place] [address] Consulting Physician Gastroenterology 02/22/19 Sebastien Martinez DO [address] [place] [phone] Medical Oncologist/Sewer Connector Hematology and Oncology 02/22/19 Guru Winters DO [address] [place] [address] Consulting Physician Gastroenterology 02/22/19 Gato Abrams MD [address] [place] [address] [address] [place] [address] Surgeon Surgical Oncology 09/07/19 Marina Rosales MD [address] [facility] [address] [place], [place] [phone] Consulting Physician General Surgery 03/24/21 documented as of this encounter
--- OUTSIDE RECORDS SUMMARY | 2024-10-04 03:00 | XMS_ITS | Encounter Summary ---
Author Organization [facility] Address [address] [place] [address] Phone Care Team Providers Care Drum Sealer Name Role Phone MelindaLuann oh ANUP Unavailable [phone] Adarsh Tuttle MD Unavailable [phone] Sebastien Martinez DO Unavailable [phone] Guru Winters DO Unavailable [phone] Gato Abrams MD Unavailable [phone] Elizabeth Borrego Primary Care Provider [phone] Marina Rosales MD Unavailable [phone] Reason for Visit * Reason Comments Injections * Episode Based Medications (Routine) - Closed Specialty Diagnoses / Procedures Referred By Clemencia mendez Referred To Contact Oncology Diagnoses Malignant carcinoid tumor of stomach (HCC) Procedures ID OCTREOTIDE INJECTION, DEPOT Sebastien Martinez DO [facility] [address] Phone: tel: fax: [facility] Oncology [address] [address] Phone: tel: fax: Referral ID Status Reason Start Date Expiration Date Visits Re quested Visits Authorized [id number] Closed 2022 02/19/2023 1 50 Encounter Details Date Type Department Care Team (Late st Contact Info) Description 02/18/2022 8:15 AM CDT Infusion [facility] Oncology [address] [facility] [address] [place] [phone] Malignant carcinoid tumor of stomach (CMS/HCC) [...] on file 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 Gender Identity Female 06/07/2020 8:39 AM CDT Sexual Orientation Not on file 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 Not on file Not on file documented as of this encounter Last Filed Vital Signs Vital Sign Reading Time Taken Comments Blood Pressure 109/70 02/18/2022 8:14 AM CDT Pulse - - Temperature - - Respiratory Rate - - Oxygen Saturation - - Inhaled Oxygen Concentration - - Weight 71 kg (156 lb 9.6 oz) 02/18/2022 8:14 AM CDT Height - - Body Mass Index 26.88 10/29/2021 9:36 AM BROADCAST SYSTEMS ENGINEER documented in this encounter Nursing Notes * Joanne Abbott RN - 02/18/2022 8:15 AM CDT Patient tolerated injection well to right dorsogluteal documented in this encounter Plan of Treatment [...] 10 mg 10 mg, intramuscular, Once, On Wed02/18/22 at 0845, For 1 dose, Refrigerate. For IM intragluteal administration only- alternate gluteal sites. Shamir.Indications:Malignant carcinoid tumor of stomach (HCC) Given 02/18/2022 8:15 AM CDT 10 mg Left Dorsogluteal/Butt ock documented in this encounter Orders Appointment Requests Count Last Ordered Date Fi rst Ordered Date ONCBCN INJECTION APPOINTMENT REQUEST 1 01/2022 documented in this encounter Care Teams Drum Sealer Relationship Specialty Start Date End Date Elizabeth Borrego PA [address] [facility] [address] [place], [place] [id number] PCP - General Internal Medicine 03/25/20 09/27/23 Luann Lawrence, ANUP Nurse Practitioner Nurse Practitioner 01/06/19 Adarsh Tuttle MD [address] [facility] [address] [place] [address] Consulting Physician Gastroenterology 02/22/19 Sebastien Martinez DO [address] [place] [address] Medical Oncologist/Local Area Network Systems Adminstrator Hematology and Oncology 02/22/19 Guru Winters DO [address] [place] [address] Consulting Physician Gastroenterology 02/22/19 [place] [address] [place] [address] Surgeon Surgical Oncology 09/07/19 Marina Rosales MD [address] [facility] [address] [place] [address] Consulting Physician General Surgery 03/24/21 documented as of this encounter
--- OUTSIDE RECORDS SUMMARY | 2024-10-04 03:00 | XMS_ITS | Encounter Summary ---
Author Organization [facility] Address [address] [place] [address] Phone Care Team Providers Care Area Field Worker Name Role Phone MelindaLuann oh Aditya HEBERT Unavailable [phone] Adarsh Tuttle MD Unavailable [phone] Sebastien Martinez DO Unavailable [phone] Guru Winters DO Unavailable [phone] Gato Abrams MD Unavailable [phone] Elizabeth Borrego Primary Care Provider [phone] Marina Rosales MD Unavailable [phone] Reason for Visit * Episode Based Medications (Routine) - Closed Specialty Diagnoses / Procedures Referred By Contjimmy t Referred To Contact Oncology Diagnoses Malignant carcinoid tumor of stomach (HCC) Procedures [place] OCTREOTIDE INJECTION, DEPOT Sebastien Martinez, [facility] [address] Phone: tel: fax: [facility] Physicians [facility] [address] [address] Phone: tel: fax: Referral ID Status Reason Start Date Expiration Date Visits Re quested Visits Authorized [id number] Closed 2022 02/19/2023 1 50 Encounter Details Date Type Department Care Team (Late st Contact Info) Description 01/21/2022 8:15 AM CDT Infusion [facility] Physicians [facility] Oncology [address] [facility] [address] [place] [address] Malignant carcinoid tumor of stomach [...] file 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 Gender Identity Female 06/07/2020 8:39 AM CDT Sexual Orientation Not on file 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 For IM intragluteal administration only- alternate gluteal sites. Shamir.Indications:Malignant carcinoid tumor of stomach (HCC) Given 01/21/2022 8:10 AM CDT 10 mg Right Dorsogluteal/Butt ock documented in this encounter Orders Appointment Requests Count Last Ordered Date Fi rst Ordered Date ONCBCN INJECTION APPOINTMENT REQUEST 1 0 03/2022 documented in this encounter Care Teams Area Field Worker Relationship Specialty Start Date End Date Elizabeth Borrego PA [address] [place], [place] [id number] PCP - General Internal Medicine 03/25/20 09/27/23 Luann Lawrence NP Nurse Practitioner Nurse Practitioner 01/06/19 Adarsh Tuttle MD [address] [place] [address] Consulting Physician Gastroenterology 02/22/19 Sebastien Martinez DO [address] [place] [id number] Medical Oncologist/Jacquard Loom Heddles Tier Hematology and Oncology 02/22/19 Guru Winters DO [facility] [address] Consulting Physician Gastroenterology 02/22/19 Gato Abrams MD [address] [place] [address] Surgeon Surgical Oncology 09/07/19 Marina Rosales MD [address] [place] [address] Consulting Physician General Surgery 03/24/21 documented as of this encounter
--- OUTSIDE RECORDS SUMMARY | 2024-10-04 03:00 | XMS_ITS | Encounter Summary ---
Author Organization [facility] Healthcare Address [address] [place] [address] Care Team Providers Care Featheredger And Reducer Machine Name Role Phone Luann Lawrence NP Unavailable [phone] Adarsh Tuttle MD Unavailable [phone] Sebastien Martinez DO Unavailable [phone] Guru Winters DO Unavailable [phone] Gato Abrams MD Unavailable Elizabeth Borrego Primary Care Provider [phone] Marina Rosales MD Unavailable [phone] Encounter Details Date Type Department Care Team (Latest Contact Info) Description 03/12/2022 9:48 AM CDT - 03/12/2022 11:59 PM CDT Hospital Encounter [facility] [address] [place] [id number] Discharge Disposition: Discharge to home or self [...] on file 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 Gender Identity Female 06/07/2020 8:39 AM CDT Sexual Orientation Not on file 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 Not on file Not on file documented as of this encounter Medications at Time of Discharge cholecalciferol (VITAMIN D-3) 1,000 unit capsuleIndicati ons:Vitamin D Deficiency Take 2 capsules (2,000 Units total) by mouth engineering agent before breakfast buPROPion XL (WELLBUTRIN XL) 150 [...] 1 tablet (200 mg total) by mouth engineering agent before breakfast 01/30/2019 09/30/20 23 multivitamin capsuleIndicati ons:Vitamin Deficiency Prevention Take 1 capsule by mouth engineering agent before breakfast 04/14/20 24 octreotide (SandoSTATIN) 100 [...] Procedure Name Priority Date/Time Associated Diagnosis Comments MSK CT MR OUTSIDE REFERENCE Routine 03/12/2022 9:48 AM CDT Diagnosis unknown documented in this encounter Results * MSK CT MR Outside Reference (03/12/2022 9:48 AM CDT) Impressions RAD_PACS_[facility] - 03/12/2022 9:48 AM CDT These images are for Reference purposes only and have not been reviewed by [facility] Radiology. ??There will be no report generated by a [facility] Radiologist. Narrative RAD_PACS_[facility] - 03/12/2022 9:48 AM CDT EXAMINATION: ??Images For Reference Purposes Only us Jason Barber IV, MD IMG CT PROCEDURES Fin al Result RAD_PACS[facility] documented in this encounter Visit Diagnoses Not on filedocumented in this encounter Care Teams Featheredger And Reducer Machine Relationship Specialty Start Date End Date Elizabeth Borrego PA [address] [place] [address] PCP - General Internal Medicine 03/25/20 09/27/23 Luann Lawrence NP Nurse Practitioner Nurse Practitioner 01/06/19 Adarsh Tuttle MD [address] [place] [address] Consulting Physician Gastroenterology 02/22/19 Sebastien Martinez DO [address] [place] [address] Medical Oncologist/Helpdesk Manager Hematology and Oncology 02/22/19 Guru Winters DO [address] [place] [address] Consulting Physician Gastroenterology 02/22/19 Gato Abrams MD [address] [place] [address] Surgeon Surgical Oncology 09/07/19 Marina Rosales MD [address] [facility] [place] [address] [place], [place] [id number] Consulting Physician General Surgery 03/24/21 documented as of this encounter
--- OUTSIDE RECORDS SUMMARY | 2024-10-04 03:00 | XMS_ITS | Encounter Summary ---
Author Organization [facility] Healthcare Address [address] [place] [address] Care Team Providers Care Card Writer Hand Name Role Phone Luann Lawrence NP Unavailable [phone] Adarsh Tuttle MD Unavailable Sebastien Martinez DO Unavailable [phone] Guru Winters DO Unavailable [phone] Gato Abrams MD Unavailable [phone] Elizabeth Borrego Primary Care Provider [phone] Marina Rosales MD Unavailable [phone] Reason for Visit * Episode Based Medications (Routine) - Closed Specialty Diagnoses / Procedures Referred By Clemencia mendez Referred To Contact Oncology Diagnoses Malignant carcinoid tumor of stomach (HCC) Procedures [place] OCTREOTIDE INJECTION, DEPOT Sebastien Martinez DO [facility] [address] Phone: tel: fax: [facility] Oncology [address] [address] Phone: tel: fax: Referral ID Status Reason Start Date Expiration Date Visits Re quested Visits Authorized [id number] Closed 2022 02/19/2023 1 50 Encounter Details Date Type Department Care Team (Late st Contact Info) Description 03/18/2022 7:45 AM CDT Lab [facility] Lab [facility]8 [place] [address] Malignant carcinoid tumor of stomach (CMS/HCC) (HCC); Pernicious anemia Social History Tobacco Use Types [...] on file 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 Gender Identity Female 06/07/2020 8:39 AM CDT Sexual Orientation Not on file 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 Not on file Not on file documented as of this encounter Plan of Treatment Not on file documented as of this encounter Procedures Procedure Name Priority Date/Time Associated Diagnosis Comments EGFR Routine 03/18/2022 7:36 AM CDT Malignant carcinoid tumor of stomach (CMS/HCC) (HCC) DIFFERENTIAL AUTO STAT 03/18/2022 7:3 6 AM CDT Malignant carcinoid tumor of stomach (CMS/HCC) (HCC) CHROMOGRANIN A Routine 03/18/2022 7:36 AM CDT Malignant carcinoid tumor of stomach (CMS/HCC) (HCC) CBC WITH AUTO DIFFERENTIAL STAT 03/18/2022 7:36 AM CDT Malignant carcinoid tumor of stomach (CMS/HCC) (HCC) GASTRIN Routine 03/18/2022 7:36 AM CDT Malignant carcinoid tumor of stomach (CMS/HCC) (HCC) VITAMIN B12 Routine 03/18/2022 7:36 AM CDT Pernicious anemia COMPREHENSIVE METABOLIC PANEL Routine 03/18/2022 7:36 AM CDT Malignant carcinoid tumor of stomach (CMS/HCC) (HCC) documented in this encounter Results * eGFR (03/18/2022 7:36 AM CDT) Pathologist [facility] eGFR 87 mL/min/1. 73 m2 ANDREA Comment: Interpretive Data Reference Interval Normal ?>/= [...] last reviewed 2021. Testing performed by: [facility], [address] [place] [address], [place]., [address] Blood 03/18/2022 7:36 AM CDT 03/18/2022 7:47 AM CDT Sebastien Martinez DO LAB BLOOD ORDERABLES Final R esult ANDREA [address] [facility] [place] [address] * Differential, auto (03/18/2022 7:36 AM CDT) Neutrophil abs 2.9 1.7 - 6.5 K/cumm ANDREA Comment:Testing performed by : [address] [address] Lymphocyte abs 1.4 0.8 - 3.3 K/cumm ANDREA Comment:Testing performed by : [address] [address] Monocyte abs 0.3 0.2 - 0.8 K/cumm ANDREA Comment:Testing performed by : [address] [address] Eosinophil abs 0.2 0.0 - 0.5 K/cumm ANDREA Comment:Testing performed by : [address] [address] Neutrophil pct 59.4 % ANDREA Comment: Interpretive Data Percent cell count reference ranges are not reported, since discordance with absolute values may lead to misinterpretation of CBC data. Current Interpretive Data was last revised on 2018. Testing performed by: [address] [address] Imm gran pct 0.6 % ANDREA Comment: Interpretive Data Percent cell count reference ranges are not reported, since discordance with absolute values may lead to misinterpretation of CBC data. Current Interpretive Data was last revised on 2018. Testing performed by: [address] [address] Lymphocyte pct 29.4 % ANDREA Comment: Interpretive Data Percent cell count reference ranges are not reported, since discordance with absolute values may lead to misinterpretation of CBC data. Current Interpretive Data was last revised on 2018. Testing performed by: [address] [address] Monocyte pct 5.3 % ANDREA Comment: Interpretive Data Percent cell count reference ranges are not reported, since discordance with absolute values may lead to misinterpretation of CBC data. Current Interpretive Data was last revised on 2018. Testing performed by: [address] [address] Eosinophil pct 4.5 % ANDREA Comment: Interpretive Data Percent cell count reference ranges are not reported, since discordance with absolute values may lead to misinterpretation of CBC data. Current Interpretive Data was last revised on 2018. Testing performed by: [address] [address] Basophil pct 0.8 % ANDREA Comment: Interpretive Data Percent cell count reference ranges are not reported, since discordance with absolute values may lead to misinterpretation of CBC data. Current Interpretive Data was last revised on 2018. Testing performed by: [address] [address] Blood 03/18/2022 7:36 AM CDT 03/18/2022 7:47 AM CDT Sebastien Martinez DO LAB BLOOD ORDERABLES Final R esult Performing Organization Address City/[facility]/ZIP Co de Phone Number [address] [place] [address] * Vitamin B12 (03/18/2022 7:36 AM CDT) Vitamin B12 503 230 - 1,250 pg/mL ANDREA Comment:Testing performed by : [address] [address] Blood 03/18/2022 7:36 AM CDT 03/18/2022 10:40 AM CDT Sebastien Martinez DO LAB BLOOD ORDERABLES Final R esult [address] [address] * Chromogranin A (03/18/2022 7:36 AM CDT) Chromogranin A 25 <93 ng/mL ANDREA CASTILLO Comment: ADDITIONAL INFORMATION [...] a homogeneous time-resolved immunofluorescent assay manufactured by [employer] and performed on the [employer] Compact Plus. ? Values obtained with different assay methods or kits may be different and cannot be used interchangeably. ? Test results cannot be interpreted as absolute evidence for the presence or absence of malignant disease. Test Performed by: [place] [address] Camp Housekeeper: Bjorn Morris M.D. Ph.D.; CLIA# [id number] Testing performed by: [facility], [address] [place] [address]., [address] Blood 03/18/2022 7:36 AM CDT 03/18/2022 7:47 AM CDT Sebastien Martinez DO LAB BLOOD ORDERABLES Final R esult ANDREA [address] [facility] [place] [address] * Gastrin (03/18/2022 7:36 AM CDT) Gastrin <10 pg/mL ANDREA CASTILLO Comment: REFERENCE VALUE <100 Reference ranges valid for >= 8 hour fast. Test Performed by: [facility] [address] [place] [address] Camp Housekeeper: Bjorn Morris M.D. Ph.D.; CLIA# [id number] Testing performed by: [address] [address] Blood 03/18/2022 7:36 AM CDT 03/18/2022 7:47 AM CDT us Sebastien Martienz DO LAB BLOOD ORDERABLES Final R esult ANDREA [address] [facility] [place] [address] * CBC with auto differential (03/18/2022 7:36 AM CDT) WBC 4.9 3.8 - 9.9 K/cumm ANDREA CASTILLO Comment:Testing performed by : [address] [address] Hgb 13.3 11.9 - 15.5 g/dL ANDREA CASTILLO Comment:Testing performed by : [address] [address] Hct 40.1 35.6 - 45.5 % ANDREA CASTILLO Comment:Testing performed by : [address] [address] Plt 298 150 - 400 K/cumm ANDREA Comment:Testing performed by : [address] [address] MPV 9.8 9.1 - 12.3 fL ANDREA CASTILLO Comment:Testing performed by : [address] [address] RBC 4.64 3.90 - 5.20 M/cumm ANDREA CASTILLO Comment:Testing performed by : [address] [address] MCV 86.4 81.3 - 96.4 fL ANDREA CATSILLO Comment:Testing performed by : [address] [address] MCH 28.7 27.1 - 33.3 pg ANDREA CASTILLO Comment:Testing performed by : [facility] [address] [place] [address]., [address] MCHC 33.2 32.3 - 35.7 g/dL ANDREA CASTILLO Comment:Testing performed by : [facility] [address] [place] [address], [place]., [address] RDW CV 12.2 11.1 - 14.9 % ANDREA CASTILLO Comment:Testing performed by : [facility] [address] [place] [address], [place]., [address] RDW SD 38.4 35.7 - 48.1 fL ANDREA CASTILLO Comment:Testing performed by : [facility] [address] [place] [address], [place]., [address] Blood 03/18/2022 7:36 AM CDT 03/18/2022 7:47 AM CDT Sebastien Martinez DO LAB BLOOD ORDERABLES Final R esult ANDREA [address] [facility] Department [place] [address] * (ABNORMAL) Comprehensive metabolic panel (03/18/2022 7:36 AM CDT) Sodium 142 135 - 145 mmol/L ANDREA CASTILLO Comment:Testing performed by : [facility] [address] [place] [address]., [address] Potassium, pl 4.3 3.3 - 4.9 mmol/L ANDREA CASTILLO Comment:Testing performed by : [facility] [address] [place] [address]., [address] Chloride 102 97 - 110 mmol/L ANDREA CASTILLO Comment:Testing performed by : [address] [address] CO2 31 22 - 32 mmol/L ANDREA CASTILLO Comment:Testing performed by : [address] [address] Anion gap 9 2 - 15 mmol/L ANDREA CASTILLO Comment:Testing performed by : [address] [address] BUN 14 8 - 25 mg/dL ANDREA Comment:Testing performed by : [address] [address] Creatinine 0.80 0.60 - 1.10 mg/dL ANDREA Comment:Testing performed by : [address] [address] Glucose 170 70 - 199 mg/dL [facility] Comment: Interpretive Data Fasting glucose >/= 126 [...] was last revised 2017. Testing performed by: [address] [address] Calcium 9.6 8.5 - 10.3 mg/dL [facility] Comment:Testing performed by : [address] [address] Bilirubin, total 0.4 0.1 - 1.2 mg/dL [facility] Comment:Testing performed by : [address] [address] Protein, pl 7.4 6.5 - 8.5 g/dL [facility] Comment:Testing performed by : [address] [address] Albumin 4.5 3.5 - 5.0 g/dL [facility] Comment:Testing performed by : [address] [address] Alk phos 81 40 - 130 Units/L ANDREA Comment:Testing performed by : [address] [address] ALT 46(H) 7 - 45 Units/L [facility] Comment:Testing performed by : [address] [address] AST 23 10 - 45 Units/L [facility] Comment:Testing performed by : [facility] [address] [place]., [address] Blood 03/18/2022 7:36 AM CDT 03/18/2022 7:47 AM CDT Sebastien Martinez DO LAB BLOOD ORDERABLES Final R esult ANDREA [address] [facility] [place] [address] documented in this encounter Visit Diagnoses Diagnosis Malignant carcinoid tumor of stomach (HCC) Malignant carcinoid tumor of the stomach Pernicious anemia documented in this encounter Orders Appointment Requests Count Last Ordered Date Fi rst Ordered Date ONCBCN LAB APPOINTMENT 1 03/18/2022 documented in this encounter Care Teams Card Writer Hand Relationship Specialty Start Date End Date Elizabeth Borrego PA [address] [facility] [address] [place] [address] PCP - General Internal Medicine 03/25/20 09/27/23 Luann Lawrence, ANUP Nurse Practitioner Nurse Practitioner 01/06/19 Adarsh Tuttle MD [address] [facility] [address] [place] [address] Consulting Physician Gastroenterology 02/22/19 Sebastien Martinez DO [address] [place] [address] Medical Oncologist/Chocolate Molder Hematology and Oncology 02/22/19 Guru Winters DO [address] [place] [address] Consulting Physician Gastroenterology 02/22/19 Gato Abrams MD [address] [facility] [address] [place] [address] Surgeon Surgical Oncology 09/07/19 Marina Rosales MD [address] [facility] [address] [place] [address] Consulting Physician General Surgery 03/24/21 documented as of this encounter
--- OUTSIDE RECORDS SUMMARY | 2024-10-04 03:00 | XMS_ITS | Encounter Summary ---
Author Organization [facility] Address [address] [place] [address] Phone Care Team Providers Care Special Investigator Name Role Phone Luann Lawrence ANUP Unavailable [phone] Adarsh Tuttle MD Unavailable [phone] Sebastien Martinez DO Unavailable [phone] Guru Winters DO Unavailable [phone] Gato Abrams MD Unavailable [phone] Elizabeth Borrego Primary Care Provider [phone] Marina Rosales MD Unavailable [phone] Reason for Referral * Injectables (Routine) - Closed Specialty Diagnoses / Procedures Referred By Contac t Referred To Contact Diagnoses Chronic pain of right knee Swelling of joint, knee, right Procedures Large Joint Injection w/ Ultrasound: [place] [address] [place] [address] Phone: tel: fax: [facility] (All Locations) Referral ID Status Reason Start Date Expiration Date Visits Re quested Visits Authorized [id number] Closed 05/07/2022 06/06/2023 1 1 Reason for Visit * Diagnostic Imaging (Routine) - Closed Specialty Diagnoses / Procedures Referred By Contac t Referred To Contact Diagnoses Swelling of joint, knee, right Effusion of right knee Synovial cyst of right popliteal space Procedures US Guided Aspiration or Injection of Major Joint Jason Barber IV, MD Phone: tel: fax: [facility] (All Locations) Referral ID Status Reason Start Date Expiration Date Visits Re quested Visits Authorized [id number] Closed 03/12/2022 04/11/2023 1 1 Encounter Details Date Type Department Care Team (Latest Contact Info) Description 05/07/2022 11:00 AM CDT Procedure visit [facility] Orthopaedic Surgery [address] [facility] [address] [place] [address] [place] [address] [place], [place] [address] Chronic pain of right knee (Primary Dx); Swelling of joint, knee, right; Effusion of right knee; Synovial cyst of [...] on file 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 Risks and benefits of the procedure were explained. The patient was placed in a prone position. A right Duke's cyst was identified under ultrasound using the curvilinear transducer. The area was prepped with Betadine x 6 and alcohol swab. Sterile ultrasound probe cover was used. Sterile ultrasound gel was applied. A 25-gauge 1.5 inch needle was inserted into this area and 1-2 mL of 1% lidocaine was infused subcutaneously to anesthetize the region. Then, an 18 gauge 1.5 inch needle was advanced under ultrasound guidance to the target, using an in-plane approach.65 mL of yellow/transparent fluid was aspirated under ultrasound guidance. Then, 1 mL of 40 mg/mL Kenalog and 1 mL of 1% Lidocaine was infused. The patient tolerated the procedure without complications. Post procedure instructions were provided. Kaylie Jaing MD Lockstitch Pocket Setter Division of Physical Medicine and Rehabilitation Department of Orthopedic Surgery [facility] Large Joint Injection w/ Ultrasound: R knee Performed by: Kaylie Jiang MD Authorized by: Kaylie Jiang MD Procedure Details: Location: Knee Site: R knee Ultrasound guided: Yes Ultrasound guidance used for: Pre-procedure marking and real-time guidance Sterile ultrasond techniques: Sterile gel and sterile probe covers were used Ultrasound note: See above Medications: 1 mL lidocaine PF 10 mg/mL (1 %); 40 mg triamcinolone 40 mg/mL documented in this encounter Plan of Treatment Not on file documented as of this encounter Procedures Procedure Name Priority Date/Time Associated Diagnosis Comments NE ARTHROCENTESIS ASPIR&/INJ MAJOR JT/BURSA W/US Routine 05/07/2022 11:00 AM CDT Chronic pain of right knee Swelling of joint, knee, right documented in this encounter Results * NE ARTHROCENTESIS ASPIR&/INJ MAJOR JT/BURSA W/US (05/07/2022 11:00 AM CDT) Narrative Kaylie Jiang MD - 05/07/2022 11:00 AM CDT Kaylie Jiang MD ? 05/07/2022 11:43 AM Large Joint Injection w/ Ultrasound: R knee Performed by: Kaylie Jiang MD Authorized by: Kaylie Jiang MD Procedure Details: ??Location: ??Knee ??Site: ??R knee ??Ultrasound guided: Yes ?Ultrasound guidance used for: ??Pre-procedure marking and real-time guidance ??Sterile ultrasond techniques: Sterile gel and sterile probe covers were used ?Ultrasound note: ??See above ??Medications: ??1 mL lidocaine PF 10 mg/mL (1 %); 40 mg triamcinolone 40 mg/mL us Kaylie Jiang MD IN CLINIC/BEDSIDE ORDERAB LES Final Result documented in this encounter Visit Diagnoses Diagnosis Chronic pain of right knee- Primary Swelling of joint, knee, right Effusion of right knee Synovial cyst of right popliteal space documented in this encounter Administered Medications Inactive Administered Medications - up to 3 most recent administrations Medication Order MAR Action Action Date Dose Rate Site lidocaine PF (XYLOCAINE) 10 mg/mL (1 %) preservative free injection 1 mL 1 mL, other, One-Time Injection, Starting on Dariela 05/07/22 at 1143, For 1 doseIndications:Chronic pain of right knee,Swelling of joint, knee, right Given 05/07/2022 11:43 AM CDT 1 mL triamcinolone (KENALOG) 40 mg/mL injection 40 mg 40 mg, intra-articular, One-Time Injection, Starting on Dariela 05/07/22 at 1143, For 1 doseIndications:Chronic pain of right knee,Swelling of joint, knee, right Given 05/07/2022 11:43 AM CDT 40 mg documented in this encounter Orders Imaging Orders Without Results Count Last Order ed Date First Ordered Date US GUIDED ASPIRATION OR INJE CTION OF MAJOR JOINT 1 05/07/2022 documented in this encounter Care Teams Special Investigator Relationship Specialty Start Date End Date Elizabeth Borrego PA [address] [place] [address] PCP - General Internal Medicine 03/25/20 09/27/23 Luann Lawrence, TOE PULLER Nurse Practitioner Nurse Practitioner 01/06/19 Adarsh Tuttle MD [address] [place] [address] Consulting Physician Gastroenterology 02/22/19 Sebastien Martinez DO [address] [place] [address] Medical Oncologist/Casting Director Hematology and Oncology 02/22/19 Guru Winters DO [address] [place] [address] Consulting Physician Gastroenterology 02/22/19 Gato Abrams MD [address] [place] [address] Surgeon Surgical Oncology 09/07/19 Marina Rosales MD [address] [place] [address] Consulting Physician General Surgery 03/24/21 documented as of this encounter
--- OUTSIDE RECORDS SUMMARY | 2024-10-04 03:00 | XMS_ITS | Encounter Summary ---
Author Organization [facility] Address [address] [place] [address] Care Team Providers Care Internal Communications Writer Name Role Phone Luann Lawrence NP Unavailable [phone] Adarsh Tuttle MD Unavailable Sebastien Martinez DO Unavailable [phone] Guru Winters DO Unavailable [phone] Gato Abrams MD Unavailable [phone] Elizabeth Borrego Primary Care Provider [phone] Marina Rosales MD Unavailable [phone] Reason for Visit * Episode Based Medications (Routine) - Closed Specialty Diagnoses / Procedures Referred By Clemencia mendez Referred To Contact Oncology Diagnoses Malignant carcinoid tumor of stomach (HCC) Procedures FL OCTREOTIDE INJECTION, DEPOT Sebastien Martinez DO [facility] [address] Phone: tel: fax: [facility] Oncology [address] [address] Phone: tel: fax: Referral ID Status Reason Start Date Expiration Date Visits Re quested Visits Authorized [id number] Closed 2022 02/19/2023 1 50 Encounter Details Date Type Department Care Team (Late st Contact Info) Description 11/26/2021 7:45 AM IT RISK AND ASSURANCE MANAGER Lab [facility] Lab [facility]8 [place] [address] Malignant carcinoid tumor of stomach (CMS/HCC) (HCC) [...] on file 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:22 AM IT RISK AND ASSURANCE MANAGER Gender Identity Female 06/07/2020 8:39 AM CDT Sexual Orientation Not on file 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 Not on file Not on file documented as of this encounter Plan of Treatment Not on file documented as of this encounter Procedures Procedure Name Priority Date/Time Associated Diagnosis Comments EGFR Routine 11/26/2021 8:09 AM IT RISK AND ASSURANCE MANAGER Malignant carcinoid tumor of stomach (CMS/HCC) (HCC) DIFFERENTIAL AUTO STAT 11/26/2021 8:0 9 AM IT RISK AND ASSURANCE MANAGER Malignant carcinoid tumor of stomach (CMS/HCC) (HCC) CHROMOGRANIN A Routine 11/26/2021 8:09 AM IT RISK AND ASSURANCE MANAGER Malignant carcinoid tumor of stomach (CMS/HCC) (HCC) CBC WITH AUTO DIFFERENTIAL STAT 11/26/2021 8:09 AM IT RISK AND ASSURANCE MANAGER Malignant carcinoid tumor of stomach (CMS/HCC) (HCC) GASTRIN Routine 11/26/2021 8:09 AM IT RISK AND ASSURANCE MANAGER Malignant carcinoid tumor of stomach (CMS/HCC) (HCC) COMPREHENSIVE METABOLIC PANEL Routine 11/26/2021 8:09 AM IT RISK AND ASSURANCE MANAGER Malignant carcinoid tumor of stomach (CMS/HCC) (HCC) documented in this encounter Results * eGFR (11/26/2021 8:09 AM IT RISK AND ASSURANCE MANAGER) eGFR 106 mL/min/1. 73 m2 ANDREA CASTILLO Comment: Interpretive [...] was last reviewed 2021. Testing performed by: [facility], [address] [place] [address], [place]., [address] Blood 11/26/2021 8:09 AM IT RISK AND ASSURANCE MANAGER 11/26/2021 8:13 AM IT RISK AND ASSURANCE MANAGER us Sebastien Martinez DO LAB BLOOD ORDERABLES Final R esult ANDREA [address] [facility] Department [place] [address] * (ABNORMAL) Differential, auto (11/26/2021 8:09 AM IT RISK AND ASSURANCE MANAGER) Neutrophil abs 1.6(L) 1.7 - 6.5 K/cumm ANDREA Comment:Testing performed by : [address] [address] Lymphocyte abs 0.8 0.8 - 3.3 K/cumm ANDREA Comment:Testing performed by : [address] [address] Monocyte abs 0.2 0.2 - 0.8 K/cumm ANDREA Comment:Testing performed by : [address] [address] Eosinophil abs 0.1 0.0 - 0.5 K/cumm ANDREA Comment:Testing performed by : [address] [address] Neutrophil pct 58.4 % ANDREA Comment: Interpretive Data Percent cell count reference ranges are not reported, since discordance with absolute values may lead to misinterpretation of CBC data. Current Interpretive Data was last revised on 2018. Testing performed by: [address] [address] Imm gran pct 0.4 % ANDREA Comment: Interpretive Data Percent cell count reference ranges are not reported, since discordance with absolute values may lead to misinterpretation of CBC data. Current Interpretive Data was last revised on 2018. Testing performed by: [address] [address] Lymphocyte pct 30.3 % [facility] Comment: Interpretive Data Percent cell count reference ranges are not reported, since discordance with absolute values may lead to misinterpretation of CBC data. Current Interpretive Data was last revised on 2018. Testing performed by: [address] [address] Monocyte pct 5.8 % CERTAVO Comment: Interpretive Data Percent cell count reference ranges are not reported, since discordance with absolute values may lead to misinterpretation of CBC data. Current Interpretive Data was last revised on 2018. Testing performed by: [address] [address] Eosinophil pct 4.0 % ANDREA Comment: Interpretive Data Percent cell count reference ranges are not reported, since discordance with absolute values may lead to misinterpretation of CBC data. Current Interpretive Data was last revised on 2018. Testing performed by: [facility], [address] [place] [address]., [address] Basophil pct 1.1 % ANDREA Comment: Interpretive Data Percent cell count reference ranges are not reported, since discordance with absolute values may lead to misinterpretation of CBC data. Current Interpretive Data was last revised on 2018. Testing performed by: [facility], [address] [place] [address]., [address] Blood 11/26/2021 8:09 AM IT RISK AND ASSURANCE MANAGER 11/26/2021 8:13 AM IT RISK AND ASSURANCE MANAGER Sebastien Martinez DO LAB BLOOD ORDERABLES Final R esult ANDREA [address] [facility] Department [place] [address] * Chromogranin A (11/26/2021 8:09 AM IT RISK AND ASSURANCE MANAGER) Chromogranin A 26 <93 ng/mL ANDREA CASTILLO Comment: ADDITIONAL INFORMATION This test was developed and its performance characteristics determined by [facility] in a manner consistent with CLIA requirements. This test has not been cleared or approved by the U.S. Food and Drug Administration. The testing method is a homogeneous time-resolved immunofluorescent assay manufactured by [employer] and performed on the [employer] Kryptor Compact Plus. ? Values obtained with different assay methods or kits may be different and cannot be used interchangeably. ? Test results cannot be interpreted as absolute evidence for the presence or absence of malignant disease. Test Performed by: [facility] [address] [place] [address] Die Mounter: Bjorn Morris M.D. Ph.D.; CLIA# [id number] Testing performed by: [address], [address] Blood 11/26/2021 8:09 AM IT RISK AND ASSURANCE MANAGER 11/26/2021 8:13 AM IT RISK AND ASSURANCE MANAGER Sebastien Martinez DO LAB BLOOD ORDERABLES Final R esult Performing Organization Address [facility] de Phone Number ANDREA [address] [address] * Gastrin (11/26/2021 8:09 AM IT RISK AND ASSURANCE MANAGER) Pathologist [facility] Gastrin <10 pg/mL ANDREA Comment: REFERENCE VALUE <100 Reference ranges valid for >= 8 hour fast. Test Performed by: [facility] [address] [place] [address] Die Mounter: Bjorn Morris M.D. Ph.D.; CLIA# [id number] Testing performed by: [address] [address] Blood 11/26/2021 8:09 AM IT RISK AND ASSURANCE MANAGER 11/26/2021 8:13 AM IT RISK AND ASSURANCE MANAGER Sebastien Martinez LAB BLOOD ORDERABLES Final R [facility] Performing Organization Address City/[facility] de Phone Number ANDREA [facility]7 [facility] [place] [address] * (ABNORMAL) CBC with auto differential (11/26/2021 8:09 AM IT RISK AND ASSURANCE MANAGER) Pathologist [facility] WBC 2.8(L) 3.8 - 9.9 K/cumm ANDREA Comment:Testing performed by : [address] [address] Hgb 11.9 11.9 - 15.5 g/dL ANDREA Comment:Testing performed by : [address] [address] Hct 34.6(L) 35.6 - 45.5 % ANDREA Comment:Testing performed by : [address] [address] Plt 225 150 - 400 K/cumm ANDREA Comment:Testing performed by : [address] [address] MPV 9.4 9.1 - 12.3 fL ANDREA Comment:Testing performed by : [address], [address] RBC 4.07 3.90 - 5.20 M/cumm ANDREA Comment:Testing performed by : [address], [address] MCV 85.0 81.3 - 96.4 fL ANDREA Comment:Testing performed by : [address], [address] MCH 29.2 27.1 - 33.3 pg ANDREA Comment:Testing performed by : [address], [address] MCHC 34.4 32.3 - 35.7 g/dL ANDREA Comment:Testing performed by : [address], [address] RDW CV 11.8 11.1 - 14.9 % ANDREA Comment:Testing performed by : [address], [address] RDW SD 36.1 35.7 - 48.1 fL ANDREA Comment:Testing performed by : [address], [address] Blood 11/26/2021 8:09 AM IT RISK AND ASSURANCE MANAGER 11/26/2021 8:13 AM IT RISK AND ASSURANCE MANAGER us Sebastien Martinez DO LAB BLOOD ORDERABLES Final R esult MAYITAVO [address] [facility] Department [place] [address] * Comprehensive metabolic panel (11/26/2021 8:09 AM IT RISK AND ASSURANCE MANAGER) Sodium 141 135 - 145 mmol/L ANDREA Comment:Testing performed by : [facility], [address] [place] [address], [place]., [address] Potassium, pl 4.0 3.3 - 4.9 mmol/L ANDREA Comment:Testing performed by : [address], [place]., [address] Chloride 104 97 - 110 mmol/L ANDREA Comment:Testing performed by : [address], [place]., [address] CO2 28 22 - 32 mmol/L ANDREA Comment:Testing performed by : [address], [place]., [address] Anion gap 9 2 - 15 mmol/L ANDREA Comment:Testing performed by : [address], [place]., [address] BUN 16 8 - 25 mg/dL [facility] Comment:Testing performed by : [address], [place]., [address] Creatinine 0.60 0.60 - 1.10 mg/dL [facility] Comment:Testing performed by : [address], [place]., [address] Glucose 140 70 - 199 mg/dL [facility] Comment: Interpretive Data Fasting glucose >/= 126 [...] was last revised 2017. Testing performed by: [address], [place]., [address] Calcium 9.5 8.5 - 10.3 mg/dL ANDREA Comment:Testing performed by : [address], [place]., [address] Bilirubin, total 0.4 0.1 - 1.2 mg/dL ANDREA Comment:Testing performed by : [address] [address] Protein, pl 6.8 6.5 - 8.5 g/dL ANDREA Comment:Testing performed by : [address] [address] Albumin 4.0 3.5 - 5.0 g/dL ANDREA Comment:Testing performed by : [address] [address] Alk phos 69 40 - 130 Units/L ANDREA Comment:Testing performed by : [address] [address] ALT 24 7 - 45 Units/L ANDREA Comment:Testing performed by : [address] [address] AST 29 10 - 45 Units/L ANDREA Comment:Testing performed by : [address] [address] Blood 11/26/2021 8:09 AM IT RISK AND ASSURANCE MANAGER 11/26/2021 8:13 AM IT RISK AND ASSURANCE MANAGER Sebastien Martinez DO LAB BLOOD ORDERABLES Final R esult Performing Organization Address City/State/[facility] Co de Phone Number ANDREA [facility] [place] [address] documented in this encounter Visit Diagnoses Diagnosis Malignant carcinoid tumor of stomach (HCC) Malignant carcinoid tumor of the stomach documented in this encounter Orders Appointment Requests Count Last Ordered Date Fi rst Ordered Date ONCBCN LAB APPOINTMENT 1 11/26/2021 documented in this encounter Care Teams Internal Communications Writer Relationship Specialty Start Date End Date Elizabeth Borrego PA [address] [address] PCP - General Internal Medicine 03/25/20 09/27/23 Luann Lawrence NP Nurse Practitioner Nurse Practitioner 01/06/19 Adarsh Tuttle MD [address] [facility] [address] [place] [address] Consulting Physician Gastroenterology 02/22/19 Sebastien Martinez DO [facility]8 [facility] [address] [place] [address] Medical Oncologist/Leaf Binner Hematology and Oncology 02/22/19 Guru Winters DO [facility] [address] Consulting Physician Gastroenterology 02/22/19 Gato Abrams MD [address] [place] [address] Surgeon Surgical Oncology 09/07/19 Marina Rosales MD [address] [facility] [address] [place], [place] [address] Consulting Physician General Surgery 03/24/21 documented as of this encounter
--- OUTSIDE RECORDS SUMMARY | 2024-10-04 03:00 | XMS_ITS | Encounter Summary ---
Author Organization [facility] Address [address] [place] [address] Phone Care Team Providers Care Dish Up Person Name Role Phone Luann Lawrence ANUP Unavailable [phone] Adarsh Tuttle MD Unavailable [phone] Sebastien Martinez DO Unavailable [phone] Guru Winters DO Unavailable [phone] Gato Abrams MD Unavailable [phone] Elizabeth Borrego Primary Care Provider [phone] Marina Rosales MD Unavailable [phone] Encounter Details Date Type Department Care Team (Late st Contact Info) Description 12/24/2021 Orders Only [facility] Physicians [facility] Oncology [address] [facility] [address] [place] [address] Sebastien Martinez DO [address] [facility] [address] [place] [address] Malignant carcinoid tumor of stomach (CMS/HCC) [...] on file 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:22 AM FOREIGN POLICY OFFICER Gender Identity Female 06/07/2020 8:39 AM [...] stomach documented in this encounter Care Teams Dish Up Person Relationship Specialty Start Date End Date Elizabeth Borrego PA [address] [facility] [address] [place] [address] PCP - General Internal Medicine 03/25/20 09/27/23 Luann Lawrence NP Nurse Practitioner Nurse Practitioner 01/06/19 Adarsh Tuttle MD [address] [facility] [address] [place] [address] Consulting Physician Gastroenterology 02/22/19 Sebastien Martinez DO [address] [place] [address] Medical Oncologist/Results Engineer Hematology and Oncology 02/22/19 Guru Winters DO [address] [place] [address] Consulting Physician Gastroenterology 02/22/19 Gato Abrams MD [address] [place] [address] [address] [place] [address] Surgeon Surgical Oncology 09/07/19 Marina Rosales MD [address] [facility] [address] [place], [place] [address] Consulting Physician General Surgery 03/24/21 documented as of this encounter
--- OUTSIDE RECORDS SUMMARY | 2024-10-04 03:00 | XMS_ITS | Encounter Summary ---
Author Organization [facility] Address [address] [place] [address] Phone Care Team Providers Care Physical Therapy Assistant Name Role Phone MelindaLuann oh ANUP Unavailable [phone] Adarsh Tuttle MD Unavailable [phone] Sebastien Martinez DO Unavailable [phone] Guru Winters DO Unavailable Gato Abrmas MD Unavailable [phone] Elizabeth Borrego Primary Care Provider [phone] Marina Rosales MD Unavailable [phone] Reason for Visit * Reason Comments Injections * Episode Based Medications (Routine) - Closed Specialty Diagnoses / Procedures Referred By Clemencia mendez Referred To Contact Oncology Diagnoses Malignant carcinoid tumor of stomach (HCC) Procedures DE OCTREOTIDE INJECTION, DEPOT Sebastien Martinez DO [facility] [address] Phone: tel: fax: [facility] [address] [address] Phone: tel: fax: Referral ID Status Reason Start Date Expiration Date Visits Re quested Visits Authorized [id number] Closed 2022 02/19/2023 1 50 Encounter Details Date Type Department Care Team (Late st Contact Info) Description 03/18/2022 8:15 AM CDT Infusion [facility] [address] [facility] [address] [place] [address] Malignant carcinoid tumor of stomach [...] on file 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:22 AM ETHYL BLENDER Gender Identity Female 06/07/2020 8:39 AM CDT Sexual Orientation Not on file 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 Not on file Not on file documented as of this encounter Last Filed Vital Signs Vital Sign Reading Time Taken Comments Blood Pressure 118/70 03/18/2022 8:08 AM CDT Pulse 64 03/18/2022 8:08 AM CDT Temperature - - Respiratory Rate - - Oxygen Saturation 97% 03/18/2022 8:08 AM CDT Inhaled Oxygen Concentration - - Weight 70.5 kg (155 lb 6.4 oz) 03/18/2022 8:08 A M CDT Height - - Body Mass Index 26.67 10/29/2021 9:36 AM ETHYL BLENDER documented in this encounter Nursing Notes * Martha Castellano, RN - 03/18/2022 8:15 AM CDT Oncology Nursing Note [facility] Fabiola Gibson is a 56 y.o. female who presents for the following injection: Octreotide. Nursing Assessment BP: 118/70 Pulse: 64 SpO2: 97 % Weight: 70.5 kg (155 lb 6.4 oz) Patient: met treatment parameters Fabiola Gibson tolerated injection well Additional Notes: Patient reports feeling well today. No complaints at this time. Discharge Plan Discharge instructions given to patient. [...] 10 mg 10 mg, intramuscular, Once, On Wed03/18/22 at 0830, For 1 dose, Refrigerate. For IM intragluteal administration only- alternate gluteal sites. Shamir.Indications:Malignant carcinoid tumor of stomach (HCC) Given 03/18/2022 8:11 AM CDT 10 mg Right Dorsogluteal/Butt ock documented in this encounter Orders Appointment Requests Count Last Ordered Date Fi rst Ordered Date ONCBCN INJECTION APPOINTMENT REQUEST 1 10/2021 documented in this encounter Care Teams Physical Therapy Assistant Relationship Specialty Start Date End Date Elizabeth Borrego PA [address] [facility] [address] [place] [address] PCP - General Internal Medicine 03/25/20 09/27/23 Luann Lawrence NP Nurse Practitioner Nurse Practitioner 01/06/19 Adarsh Tuttle MD [address] [facility] [address] [place] [address] Consulting Physician Gastroenterology 02/22/19 Sebastien Martinez DO [address] [address] Medical Oncologist/Supervisor [facility] Hematology and Oncology 02/22/19 Guru Winters DO [address] [place] [address] Consulting Physician Gastroenterology 02/22/19 Gato Abrams MD [address] [place] [address] Surgeon Surgical Oncology 09/07/19 Marina Rosales MD [address] [facility] [address] [place] [address] Consulting Physician General Surgery 03/24/21 documented as of this encounter
--- OUTSIDE RECORDS SUMMARY | 2024-10-04 03:00 | XMS_ITS | Encounter Summary ---
Author Organization [facility] Address [address] [place] [address] Care Team Providers Care Police Matron Name Role Phone Luann Lawrence NP Unavailable [phone] Adarsh Tuttle MD Unavailable [phone] Sebastien Martinez DO Unavailable [phone] Guru Winters DO Unavailable [phone] Gato Abrams MD Unavailable Elizabeth Borrego Primary Care Provider [phone] Marina Rosales MD Unavailable [phone] Reason for Visit * Auth/Cert Specialty Diagnoses / Procedures Referred By Contac t Referred To Contact Diagnoses Malignant carcinoid tumor of the stomach (HCC) Malignant carcinoid tumor of the stomach (CMS/HCC) (HCC) [C7A.092] Procedures EUS Referral ID Status Reason Start Date Expiration Date Visits Re quested Visits Authorized [id number] 1 1 Encounter Details Date Type Department Care Team (Latest Contact Info) Description 04/27/2022 7:34 AM CDT - 04/27/2022 10:49 AM CDT Hospital Encounter [facility] [address] [place] [id number] Adarsh Tuttle MD [address] [facility] [address] [place] [address] Malignant carcinoid tumor of the stomach (CMS/HCC) [...] on file 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:22 AM BUILD AND RELEASE MANAGER Gender Identity Female 06/07/2020 8:39 AM CDT Sexual Orientation Not on file 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 Not on file Not on file documented as of this encounter Last Filed Vital Signs Vital Sign Reading Time Taken Comments Blood Pressure 122/82 04/27/2022 10:14 AM CDT Pulse 63 04/27/2022 10:14 AM CDT Temperature 36.7 ??C (98 ??F) 04/27/2022 8:26 AM CDT Respiratory Rate 16 04/27/2022 10:14 AM CDT Oxygen Saturation 99% 04/27/2022 10:14 AM CDT Inhaled Oxygen Concentration - - Weight 70.8 kg (156 lb) 04/27/2022 8:26 AM CDT Height 162.6 cm (5' 4 ) 04/27/2022 8:26 AM CDT Body Mass Index 26.78 04/27/2022 8:26 AM CDT documented in this encounter Medications at Time of Discharge cholecalciferol (VITAMIN D-3) 1,000 unit capsuleIndicati ons:Vitamin D Deficiency Take 2 capsules (2,000 Units total) by mouth mail rider before breakfast buPROPion XL (WELLBUTRIN XL) 150 [...] 1 tablet (200 mg total) by mouth mail rider before breakfast 01/30/2019 09/30/20 23 multivitamin capsuleIndicati ons:Vitamin Deficiency Prevention Take 1 capsule by mouth mail rider before breakfast 04/14/20 24 octreotide (SandoSTATIN) 100 [...] unit capsule Take 2,000 Units by mouth mail rider beforebreakfast ??? cyanocobalamin (Vitamin B-12) 1,000 mcg/mL injection INJECT 1 ML INTRAMUSCULARLY INSTRUCTED EVERY 30 DAYS (DISCARD 28 DAYS AFTER FIRST USE) 3 mL 2 ??? escitalopram (LEXAPRO) 10 mg tablet TAKE 1 TABLET BY MOUTH IN THE MORNING 90 tablet 3 ??? hydroxychloroquine (PLAQUENIL) 200 mg tablet Take 400 mg by mouth mail rider before breakfast ??? multivitamin capsule Take 1 capsule by mouth mail rider before breakfast ??? octreotide (SandoSTATIN) 100 mcg/mL [...] Continuous Adarsh Tuttle MD 30 mL/hr at 04/27/[address] 30 mL/hr at 04/27/22 08 ??? sodium chloride 0.9% flush 0.5-20 mL [...] 04/27/2022 9:04 AM Admit Type: Outpatient Room: [facility] Date of : 1965 Instrument Name: [id number] Gender: Female Note Status: Finalized Procedure: [...] 04/27/2022 9:04 AM Admit Type: Outpatient Room: [facility] Date of : 1965 Instrument Name: [id number] Gender: Female Note Status: Finalized Procedure: [...] 04/27/2022 documented in this encounter Care Teams Police Matron Relationship Specialty Start Date End Date Swinigan, Elizabeth R., PA [address] [place], [place] [id number] PCP - General Internal Medicine 03/25/20 09/27/23 Luann Lawrence, LINE INSTALLER [place] Nurse Practitioner Nurse Practitioner 01/06/19 Adarsh Tuttle MD [address] [facility] [address] [place] [address] Consulting Physician Gastroenterology 02/22/19 Sebastien Martinez DO [facility] [address] Medical Oncologist/Residential Field Manager Hematology and Oncology 02/22/19 Guru Winters DO [facility] [address] Consulting Physician Gastroenterology 02/22/19 Gato Abrams MD [facility] [address] Surgeon Surgical Oncology 09/07/19 Marina Rosales MD [address] [place] [address] Consulting Physician General Surgery 03/24/21 documented as of this encounter
--- OUTSIDE RECORDS SUMMARY | 2024-10-04 03:01 | XMS_ITS | Encounter Summary ---
Author Organization [facility] Address [address] [place] [address] Phone Care Team Providers Care Travel Ot Name Role Phone Luann Lawrence ANUP Unavailable [phone] Adarsh Tuttle MD Unavailable [phone] Vick Li DO Unavailable [phone] Guru Winters DO Unavailable [phone] Gato Abrams MD Unavailable [phone] Elizabeth Borrego Primary Care Provider [phone] Marina Rosales MD Unavailable [phone] Reason for Visit * Reason Comments Malignant carcinoid tumor of stomach Follow-up * Episode Based Medications (Routine) - Closed Specialty Diagnoses / Procedures Referred By Clemencia mendez Referred To Contact Oncology Diagnoses Malignant carcinoid tumor of stomach (HCC) Procedures [place] OCTREOTIDE INJECTION, DEPOT Vick Li DO [address] [address] Phone: tel: fax: [facility] [address] [place] [address] Phone: tel: fax: Referral ID Status Reason Start Date Expiration Date Visits Re quested Visits Authorized [id number] Closed 2022 02/19/2023 1 50 Encounter Details Date Type Department Care Team (Late st Contact Info) Description 10/29/2021 9:45 AM NITRIC AC[employer] PLANT OPERATOR Office Visit [facility] [address] [place] [address] Vick Li DO [address] [place] [address] Malignant carcinoid tumor of stomach (CMS/HCC) [...] on file 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:22 AM NITRIC ACID PLANT OPERATOR Gender Identity Female 06/07/2020 8:39 AM CDT Sexual Orientation Not on file 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 Not on file Not on file Not on file documented as of this encounter Last Filed Vital Signs Vital Sign Reading Time Taken Comments Blood Pressure 121/77 10/29/2021 9:36 AM NITRIC ACID PLANT OPERATOR Pulse 77 10/29/2021 9:36 AM NITRIC ACID PLANT OPERATOR Temperature 36.8 ??C (98.2 ??F) 10/29/2021 9:36 AM CS T Respiratory Rate 18 10/29/2021 9:36 AM NITRIC [employer] PLANT OPERATOR Oxygen Saturation 98% 10/29/2021 9:36 AM NITRIC AC[employer] PLANT OPERATOR Inhaled Oxygen Concentration - - Weight 71.2 kg (157 lb) 10/29/2021 9:36 AM NITRIC ACID PLANT OPERATOR Height 162.6 cm (5' 4 ) 10/29/2021 9:36 AM NITRIC ACID PLANT OPERATOR Body Mass Index 26.95 10/29/2021 9:36 AM NITRIC [employer] PLANT OPERATOR documented in this encounter Progress Notes * Vick Li, DO - 10/29/2021 9:45 AM CST Patient ID: Fabiola Gibson is a 56 [...] I will see the patient back in 6 months for follow-up. 4. Patient will undergo repeat CT scan prior to that visit ordered by Dr. Abrams. My total encounter time on 10/29/2021 was 20 minutes which was spent in [...] stomach ??? Fever ??? COVID-19 ??? BMI 25.0-25.9,adult ??? Mixed hyperlipidemia Diagnoses and all orders for this visit: Malignant carcinoid tumor of stomach (CMS/HCC) (HCC) (Primary) - Clinic Appointment Request Follow up; VICK LI; Clinic Appointment Location: [facility] IM ONC MHE2 180 - Lab Draw Appt Request Arm [...] Onc/Hem/BMT; [facility]; Future - Chromogranin A; Future - Gastrin; Future - CBC with auto differential; Future - Comprehensive metabolic panel; Future - Clinic Appointment Request Follow up; VICK LI; Clinic Appointment Location: [facility] IM ONC MHE2 180; Future - Lab Draw Appt Request Arm Draw or Central Line Draw? Arm; What is your ordering location? [facility]/Hem/BMT; [facility]; Future - Injection Appointment Request Is this the patient's first treatment? No; What is your ordering location? [facility] Onc/Hem/BMT; 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 In 2019, her primary care physician, [...] was then referred to Dr. Tuttle at [facility] for EUS evaluation. Thiswas performed on [...] Gato Abrams in Surgical Oncology Department at [facility]. 8. On February 24, 2019, she underwent [...] A in May was better but still [id number]. 12. In May of 2019, we had [...] decided to proceed with medical therapy using [id number] mg IM every [address] [...] steatorrhea but easily controlled with diet and [id number]-vldoqkv medications. 19. Patient has been on octreotide [...] results at the end of this note. Interval Notes: I have reviewed: allergies, current [...] Exam: Vital Signs for this encounter: BSA: 1.79 meters squared BP 121/77 (BP Location: Left arm) Pulse 77 Temp 36.8 ??C (98.2 ??F) (Temporal) Resp 18 Ht 162.6 cm (5' 4 ) Wt 71.2 kg (157 lb) SpO2 98% BMI 26.95 kg/m?? Physical Exam Constitutional: Appearance: She is [...] Results: WBC Date Value Ref Range Status 10/29/2021 3.7 (L) 3.8 - 9.9 K/cumm Final Comment: Testing performed by: [address] [address] Hgb Date Value Ref Range Status 10/29/2021 12.1 11.9 - 15.5 g/dL Final Comment: Testing performed by: [address] [address] Hct Date Value Ref Range Status 10/29/2021 35.9 35.6 - 45.5 % Final Comment: Testing performed by: [address] [address] Plt Date Value Ref Range Status 10/29/2021 239 150 - 400 K/cumm Final Comment: Testing performed by: [address] [address] Creatinine Date Value Ref Range Status 10/29/2021 0.60 0.60 - 1.10 mg/dL Final Comment: Testing performed by: [address] [address] AST Date Value Ref Range Status 10/29/2021 26 10 - 45 Units/L Final Comment: Testing performed by: [address] [address] [address] scan of the chest, abdomen pelvis with contrast at the end of September-last month showed the followin. Stable 6 mm arterially hyperenhancing lesion in the uncinate process the pancreas likely a small neuroendocrine tumor. 2. No CT evidence for recurrent or metastatic disease in the abdomen or pelvis. IC ACID PLANT OPERATOR documented in this encounter Plan of Treatment Not on file documented as of this encounter Results * Comprehensive metabolic panel (04/15/2022 8:11 AM CDT) Sodium 143 135 - 145 mmol/L ANDREA Comment:Testing performed by : [address] [address] Potassium, pl 4.5 3.3 - 4.9 mmol/L ANDREA Comment:Testing performed by : [address] [address] Chloride 104 97 - 110 mmol/L ANDREA Comment:Testing performed by : [address] [address] CO2 27 22 - 32 mmol/L [facility] Comment:Testing performed by : [address] [address] Anion gap 12 2 - 15 mmol/L [facility] Comment:Testing performed by : [address] [address] BUN 15 8 - 25 mg/dL [facility] Comment:Testing performed by : [address] [address] Creatinine 0.80 0.60 - 1.10 mg/dL [facility] Comment:Testing performed by : [address] [address] Glucose 114 70 - 199 mg/dL [facility] Comment: Interpretive Data Fasting glucose >/= [...] was last revised 2017. Testing performed by: [address] [place]., [address] Calcium 9.6 8.5 - 10.3 mg/dL ANDREA Comment:Testing performed by : [address] [address] Bilirubin, total 0.5 0.1 - 1.2 mg/dL ANDREA Comment:Testing performed by : [address] [address] Protein, pl 7.2 6.5 - 8.5 g/dL ANDREA Comment:Testing performed by : [address] [address] Albumin 4.2 3.5 - 5.0 g/dL ANDREA Comment:Testing performed by : [address] [address] Alk phos 78 40 - 130 Units/L AD[facility] Comment:Testing performed by : [address] [address] ALT 40 7 - 45 Units/L ANDREA Comment:Testing performed by : [address] [address] AST 35 10 - 45 Units/L ANDREA Comment:Testing performed by : [address] [address] Blood 04/15/2022 8:11 AM CDT 04/15/2022 8:14 AM CDT Vick Li DO LAB BLOOD ORDERABLES Final R esult [facility] [address] [facility] Department of Laboratories [place], [place] [id number] * CBC with auto differential (04/15/2022 8:11 AM CDT) WBC 4.0 3.8 - 9.9 K/cumm ANDREA Comment:Testing performed by : [address] [address] Hgb 12.3 11.9 - 15.5 g/dL ANDREA Comment:Testing performed by : [address] [place]., [address] Hct 36.4 35.6 - 45.5 % ANDREA Comment:Testing performed by : [address] [address] Plt 252 150 - 400 K/cumm ANDREA Comment:Testing performed by : [address] [address] MPV 9.6 9.1 - 12.3 fL ANDREA Comment:Testing performed by : [address], [address] RBC 4.20 3.90 - 5.20 M/cumm ANDREA Comment:Testing performed by : [address], [address] MCV 86.7 81.3 - 96.4 fL ANDREA Comment:Testing performed by : [address] [address] MCH 29.3 27.1 - 33.3 pg ANDREA Comment:Testing performed by : [address], [address] MCHC 33.8 32.3 - 35.7 g/dL ANDREA Comment:Testing performed by : [address], [address] RDW CV 12.2 11.1 - 14.9 % ANDREA Comment:Testing performed by : [address] [address] RDW SD 38.6 35.7 - 48.1 fL ANDREA Comment:Testing performed by : [address] [address] Blood 04/15/2022 8:11 AM CDT 04/15/2022 8:14 AM CDT Vick Li DO LAB BLOOD ORDERABLES Final R esult ANDREA [address] [facility] Department of Laboratories [place], [place] [id number] * Gastrin (04/15/2022 8:11 AM CDT) Gastrin <10 pg/mL ANDREA CASTILLO Comment: REFERENCE VALUE <100 Reference ranges valid for >= 8 hour fast. Test Performed by: [facility] [address] [place] [address] Ad Compositor: Bjorn Morris M.D. Ph.D.; CLIA# [id number] Testing performed by: [facility], [address] [place] [address]., [address] Blood 04/15/2022 8:11 AM CDT 04/15/2022 8:14 AM CDT Vick Li DO LAB BLOOD ORDERABLES Final R esult Performing Organization Address City/State/[facility] Co de Phone Number ANDREA [address] [facility] Department [place] [address] * Chromogranin A (04/15/2022 8:11 AM CDT) Chromogranin A 20 <93 ng/mL ANDREA CASTILLO Comment: ADDITIONAL INFORMATION This test was developed and its performance characteristics determined by [facility] in a manner consistent with CLIA requirements. [...] a homogeneous time-resolved immunofluorescent assay manufactured by [employer] and performed on the [employer] Compact Plus. ? Values obtained with different assay methods or kits may be different and cannot be used interchangeably. ? Test results cannot be interpreted as absolute evidence for the presence or absence of malignant disease. Test Performed by: [facility] [address] [place] [address] Ad Compositor: Bjorn Morris M.D. Ph.D.; CLIA# [id number] Testing performed by: [address] [address] Blood 04/15/2022 8:11 AM CDT 04/15/2022 8:14 AM CDT us Vick Li DO LAB BLOOD ORDERABLES Final R esult ANDREA [address] [facility] Department [place] [address] * (ABNORMAL) Comprehensive metabolic panel (03/18/2022 7:36 AM CDT) Sodium 142 135 - 145 mmol/L ANDREA Comment:Testing performed by : [address] [address] Potassium, pl 4.3 3.3 - 4.9 mmol/L ANDREA Comment:Testing performed by : [address] [address] Chloride 102 97 - 110 mmol/L ANDREA Comment:Testing performed by : [address] [address] CO2 31 22 - 32 mmol/L ANDREA Comment:Testing performed by : [address] [address] Anion gap 9 2 - 15 mmol/L ANDREA Comment:Testing performed by : [address] [address] BUN 14 8 - 25 mg/dL ANDREA Comment:Testing performed by : [address] [address] Creatinine 0.80 0.60 - 1.10 mg/dL ANDREA Comment:Testing performed by : [address] [address] Glucose 170 70 - 199 mg/dL [facility] Comment: Interpretive Data Fasting glucose >/= [...] was last revised 2017. Testing performed by: [address] [address] Calcium 9.6 8.5 - 10.3 mg/dL ANDREA Comment:Testing performed by : [address] [address] Bilirubin, total 0.4 0.1 - 1.2 mg/dL [facility] Comment:Testing performed by : [address] [address] Protein, pl 7.4 6.5 - 8.5 g/dL [facility] Comment:Testing performed by : [address] [address] Albumin 4.5 3.5 - 5.0 g/dL [facility] Comment:Testing performed by : [address] [address] Alk phos 81 40 - 130 Units/L [facility] Comment:Testing performed by : [address] [address] ALT 46(H) 7 - 45 Units/L [facility] Comment:Testing performed by : [address] [address] AST 23 10 - 45 Units/L ANDREA Comment:Testing performed by : [address] [address] Blood 03/18/2022 7:36 AM CDT 03/18/2022 7:47 AM CDT Vick Li DO LAB BLOOD ORDERABLES Final R esult ANDREA [address] [facility] Department of Laboratories [place], [place] [id number] * CBC with auto differential (03/18/2022 7:36 AM CDT) WBC 4.9 3.8 - 9.9 K/cumm ANDREA Comment:Testing performed by : [address] [address] Hgb 13.3 11.9 - 15.5 g/dL [facility]REA Comment:Testing performed by : [address] [address] Hct 40.1 35.6 - 45.5 % ANDREA Comment:Testing performed by : [address] [address] Plt 298 150 - 400 K/cumm ANDREA Comment:Testing performed by : [address] [address] MPV 9.8 9.1 - 12.3 fL ANDREA Comment:Testing performed by : [address] [address] RBC 4.64 3.90 - 5.20 M/cumm ANDREA Comment:Testing performed by : [address] [address] MCV 86.4 81.3 - 96.4 fL ANDREA Comment:Testing performed by : [address] [address] MCH 28.7 27.1 - 33.3 pg ANDREA Comment:Testing performed by : [address] [address] MCHC 33.2 32.3 - 35.7 g/dL ANDREA CASTILLO Comment:Testing performed by : [address] [address] RDW CV 12.2 11.1 - 14.9 % ANDREA Comment:Testing performed by : [address] [address] RDW SD 38.4 35.7 - 48.1 fL [facility] Comment:Testing performed by : [facility], [address] [place] [address]., [address] Blood 03/18/2022 7:36 AM CDT 03/18/2022 7:47 AM CDT Vick Li LAB BLOOD ORDERABLES Final [facility] Performing Organization Address [facility] de Phone Number [place] [phone] [facility] [place] [address] * Gastrin (03/18/2022 7:36 AM CDT) Gastrin <10 pg/mL ANDREA Comment: REFERENCE VALUE <100 Reference ranges valid for >= 8 hour fast. Test Performed by: [facility] [address] [place] [address] Ad Compositor: Bjorn Morris M.D. Ph.D.; CLIA# [id number] Testing performed by: [facility], [address] [place] [address]., [address] Blood 03/18/2022 7:36 AM CDT 03/18/2022 7:47 AM CDT Vick Li LAB BLOOD ORDERABLES Final R community health Performing Organization Address [facility] de Phone Number [place] [phone] [facility] [place] [address] * Chromogranin A (03/18/2022 7:36 AM CDT) Chromogranin A 25 <93 ng/mL [facility] Comment: ADDITIONAL INFORMATION This test was developed and its performance characteristics determined by [facility] in a manner consistent with CLIA requirements. [...] a homogeneous time-resolved immunofluorescent assay manufactured by [employer] and performed on the [employer] KrContactuallyor Compact Plus. ? Values obtained with different assay methods or kits may be different and cannot be used interchangeably. ? Test results cannot be interpreted as absolute evidence for the presence or absence of malignant disease. Test Performed by: [place] [address] Ad Compositor: Bjorn Morris M.D. Ph.D.; CLIA# [id number] Testing performed by: [address] [address] Blood 03/18/2022 7:36 AM CDT 03/18/2022 7:47 AM CDT Vick Li DO LAB BLOOD ORDERABLES Final R esult ANDREA [address] [facility] Department of Laboratories [place], [place] [id number] * Comprehensive metabolic panel (02/18/2022 8:00 AM CDT) Sodium 141 135 - 145 mmol/L ANDREA CASTILLO Comment:Testing performed by : [address] [address] Potassium, pl 4.6 3.3 - 4.9 mmol/L AND[facility]A CASTILLO Comment:Testing performed by : [address] [address] Chloride 102 97 - 110 mmol/L ANDREA CASTILLO Comment:Testing performed by : [address] [address] CO2 28 22 - 32 mmol/L [facility] Comment:Testing performed by : [address] [address] Anion gap 11 2 - 15 mmol/L [facility] Comment:Testing performed by : [address] [address] BUN 16 8 - 25 mg/dL [facility] Comment:Testing performed by : [address] [address] Creatinine 0.70 0.60 - 1.10 mg/dL [facility] Comment:Testing performed by : [address] [address] Glucose 132 70 - 199 mg/dL [facility] Comment: Interpretive Data Fasting glucose >/= [...] was last revised 2017. Testing performed by: [address] [address] Calcium 9.4 8.5 - 10.3 mg/dL [facility] Comment:Testing performed by : [address] [address] Bilirubin, total 0.4 0.1 - 1.2 mg/dL [facility] Comment:Testing performed by : [address] [address] Protein, pl 6.8 6.5 - 8.5 g/dL [facility] Comment:Testing performed by : [address] [address] Albumin 4.3 3.5 - 5.0 g/dL [facility] Comment:Testing performed by : [address] [address] Alk phos 67 40 - 130 Units/L ANDREA CASTILLO Comment:Testing performed by : [address] [address] ALT 29 7 - 45 Units/L [facility]A CAST[facility]O Comment:Testing performed by : [address] [address] AST 26 10 - 45 Units/L ANDREA CASTILLO Comment:Testing performed by : [address] [address] Blood 02/18/2022 8:00 AM CDT 02/18/2022 8:28 AM CDT us Vick Li DO LAB BLOOD ORDERABLES Final R esult ANDREA [facility] Department [place] [address] * (ABNORMAL) CBC with auto differential (02/18/2022 8:00 AM CDT) [facility] WBC 3.5(L) 3.8 - 9.9 K/cumm ANDREA CASTILLO Comment:Testing performed by : [address] [address] Hgb 12.4 11.9 - 15.5 g/dL ANDREA CASTILLO Comment:Testing performed by : [address] [address] Hct 36.9 35.6 - 45.5 % ANDREA CASTILLO Comment:Testing performed by : [address] [address] Plt 237 150 - 400 K/cumm ANDREA CASTILLO Comment:Testing performed by : [address] [address] MPV 9.8 9.1 - 12.3 fL ANDREA CASTILLO Comment:Testing performed by : [address] [address] RBC 4.27 3.90 - 5.20 M/cumm ANDREA CASTILLO Comment:Testing performed by : [address] [address] MCV 86.4 81.3 - 96.4 fL ANDREA CASTILLO Comment:Testing performed by : [facility], [address] [place] [address]., [address] MCH 29.0 27.1 - 33.3 pg ANDREA CASTILLO Comment:Testing performed by : [address] [address] MCHC 33.6 32.3 - 35.7 g/dL ANDREA CASTILLO Comment:Testing performed by : [address] [address] RDW CV 12.1 11.1 - 14.9 % ANDREA CASTILLO Comment:Testing performed by : [address] [address] RDW SD 38.3 35.7 - 48.1 fL ANDREA CASTILLO Comment:Testing performed by : [address] [address] Blood 02/18/2022 8:00 AM CDT 02/18/2022 8:28 AM CDT Vick Li DO LAB BLOOD ORDERABLES Final R esult ANDREA [facility] Department [place] [address] * Gastrin (02/18/2022 8:00 AM CDT) Gastrin <10 pg/mL ANDREA CASTILLO Comment: REFERENCE VALUE <100 Reference ranges valid for >= 8 hour fast. Test Performed by: [facility] [address] [place] [address] Ad Compositor: Bjorn Morris M.D. Ph.D.; CLIA# [id number] Testing performed by: [address] [address] Blood 02/18/2022 8:00 AM CDT 02/18/2022 9:27 AM CDT Vick Sena Li DO LAB BLOOD ORDERABLES Final R zulmault Performing Organization Address [facility] de Phone Number ANDREA CASTILLO [address] [facility] [place] [address] * Chromogranin A (02/18/2022 8:00 AM CDT) Chromogranin A <20 <93 ng/mL ANDREA CASTILLO Comment: ADDITIONAL INFORMATION This test was developed and its performance characteristics determined by [facility] in a manner consistent with CLIA requirements. [...] a homogeneous time-resolved immunofluorescent assay manufactured by [employer] and performed on the [employer]Contact[employer]or Compact Plus. ? Values obtained with different assay methods or kits may be different and cannot be used interchangeably. ? Test results cannot be interpreted as absolute evidence for the presence or absence of malignant disease. Test Performed by: [facility] [address] [address] Ad Compositor: Bjorn Morris M.D. Ph.D.; CLIA# [id number] Testing performed by: [facility], [address] [place] [address]., [address] Blood 02/18/2022 8:0 0 AM CDT 02/18/2022 9:27 AM CDT Vick Li DO LAB BLOOD ORDERABLES Final R isma Performing Organization Address [facility] Co de Phone Number ANDREA CASTILLO [address] [facility] Department [place] [address] * Comprehensive metabolic panel (01/21/2022 7:55 AM CDT) Sodium 140 135 - 145 mmol/L ANDREA Comment:Testing performed by : [address] [address] Potassium, pl 4.4 3.3 - 4.9 mmol/L ANDREA Comment:Testing performed by : [address], [place]., [address] Chloride 105 97 - 110 mmol/L ANDREA Comment:Testing performed by : [address] [address] CO2 28 22 - 32 mmol/L ANDREA Comment:Testing performed by : [address], [place]., [address] Anion gap 7 2 - 15 mmol/L ANDREA Comment:Testing performed by : [address] [address] BUN 20 8 - 25 mg/dL ANDREA Comment:Testing performed by : [address], [place]., [address] Creatinine 0.70 0.60 - 1.10 mg/dL ANDREA Comment:Testing performed by : [address] [address] Glucose 142 70 - 199 mg/dL ANDREA [...] was last revised 2017. Testing performed by: [address] [address] Calcium 9.2 8.5 - 10.3 mg/dL ANDREA Comment:Testing performed by : [address] [address] Bilirubin, total 0.4 0.1 - 1.2 mg/dL ANDREA CASTILLO Comment:Testing performed by : [address] [address] Protein, pl 6.8 6.5 - 8.5 g/dL ANDREA CASTILLO Comment:Testing performed by : [address] [address] Albumin 4.3 3.5 - 5.0 g/dL ANDREA Comment:Testing performed by : [address] [address] Alk phos 79 40 - 130 Units/L ANDREA Comment:Testing performed by : [address] [address] ALT 31 7 - 45 Units/L ANDREA Comment:Testing performed by : [address] [address] AST 27 10 - 45 Units/L ANDREA Comment:Testing performed by : [address] [address] Blood 01/21/2022 7:55 AM CDT 01/21/2022 8:06 AM CDT Vick Li DO LAB BLOOD ORDERABLES Final R esult ANDREA [address] [facility] [place] [address] * (ABNORMAL) CBC with auto differential (01/21/2022 7:55 AM CDT) WBC 3.9 3.8 - 9.9 K/cumm ANDREA CASTILLO Comment:Testing performed by : [address] [address] Hgb 11.8(L) 11.9 - 15.5 g/dL ANDREA CASTILLO Comment:Testing performed by : [address] [address] Hct 35.6 35.6 - 45.5 % ANDREA CASTILLO Comment:Testing performed by : [facility], [address] [place] [address]., [address] Plt 271 150 - 400 K/cumm ANDREA Comment:Testing performed by : [address] [address] MPV 9.7 9.1 - 12.3 fL ANDREA Comment:Testing performed by : [address] [address] RBC 4.06 3.90 - 5.20 M/cumm ANDREA Comment:Testing performed by : [address] [address] MCV 87.7 81.3 - 96.4 fL ANDREA Comment:Testing performed by : [address] [address] MCH 29.1 27.1 - 33.3 pg ANDREA Comment:Testing performed by : [address] [address] MCHC 33.1 32.3 - 35.7 g/dL ANDREA Comment:Testing performed by : [address] [address] RDW CV 12.1 11.1 - 14.9 % ANDREA Comment:Testing performed by : [address] [address] RDW SD 39.0 35.7 - 48.1 fL ANDREA Comment:Testing performed by : [address] [address] Blood 01/21/2022 7:55 AM CDT 01/21/2022 8:07 AM CDT us Vick Li DO LAB BLOOD ORDERABLES Final R esult ANDREA CASTILLO [address] [facility] Department [place] [address] * Gastrin (01/21/2022 7:55 AM CDT) Gastrin <10 pg/mL ANDREA CASTILLO Comment: REFERENCE VALUE <100 Reference ranges valid for >= 8 hour fast. Test Performed by: [facility] [address] [place] [address] Ad Compositor: Bjorn Morris M.D. Ph.D.; CLIA# [id number] Testing performed by: [facility], [address] [place] [address]., [address] Blood 01/21/2022 7:55 AM CDT 01/21/2022 8:06 AM CDT us Vick Li DO LAB BLOOD ORDERABLES Final R esult ANDREA [address] [facility] Department [place] [address] * Chromogranin A (01/21/2022 7:55 AM CDT) Chromogranin A 27 <93 ng/mL ANDREA CASTILLO Comment: ADDITIONAL INFORMATION This test was developed and its performance characteristics determined by [facility] in a manner consistent with CLIA requirements. [...] a homogeneous time-resolved immunofluorescent assay manufactured by [employer] and performed on the [employer] KrContactuallyor Compact Plus. ? Values obtained with different assay methods or kits may be different and cannot be used interchangeably. ? Test results cannot be interpreted as absolute evidence for the presence or absence of malignant disease. Test Performed by: [facility] [address] [place] [address] Ad Compositor: Bjorn Morris M.D. Ph.D.; CLIA# [id number] Testing performed by: [address] [address] Blood 01/21/2022 7:55 AM CDT 01/21/2022 8:06 AM CDT Vick Li DO LAB BLOOD ORDERABLES Final R esult ANDREA [address] [facility] Department [place] [address] * Comprehensive metabolic panel (12/24/2021 8:18 AM NITRIC ACID PLANT OPERATOR) Sodium 140 135 - 145 mmol/L ANDREA Comment:Testing performed by : [address] [address] Potassium, pl 4.4 3.3 - 4.9 mmol/L ANDREA Comment:Testing performed by : [address] [address] Chloride 103 97 - 110 mmol/L ANDREA Comment:Testing performed by : [address] [address] CO2 28 22 - 32 mmol/L ANRDEA Comment:Testing performed by : [address] [address] Anion gap 9 2 - 15 mmol/L ANDREA Comment:Testing performed by : [address] [address] BUN 14 8 - 25 mg/dL ANDREA Comment:Testing performed by : [address] [address] Creatinine 0.70 0.60 - 1.10 mg/dL ANDREA Comment:Testing performed by : [address] [address] Glucose 113 70 - 199 mg/dL ANDREA [...] was last revised 2017. Testing performed by: [address] [address] Calcium 9.9 8.5 - 10.3 mg/dL ANDREA Comment:Testing performed by : [address] [address] Bilirubin, total 0.5 0.1 - 1.2 mg/dL ANDREA Comment:Testing performed by : [address] [address] Protein, pl 7.2 6.5 - 8.5 g/dL ANDREA Comment:Testing performed by : [address] [address] Albumin 4.4 3.5 - 5.0 g/dL ANDREA Comment:Testing performed by : [address] [address] Alk phos 69 40 - 130 Units/L ANDREA Comment:Testing performed by : [address] [address] ALT 23 7 - 45 Units/L ANDREA Comment:Testing performed by : [address] [address] AST 25 10 - 45 Units/L ANDREA Comment:Testing performed by : [address] [address] Blood 12/24/2021 8:18 AM NITRIC ACID PLANT OPERATOR 12/24/2021 8:19 AM NITRIC ACID PLANT OPERATOR us Vick Li DO LAB BLOOD ORDERABLES Final R esult ANDREA [address] Department [place] [address] * CBC with auto differential (12/24/2021 8:18 AM NITRIC ACID PLANT OPERATOR) [facility] WBC 4.0 3.8 - 9.9 K/cumm ANDREA Comment:Testing performed by : [address] [address] Hgb 12.6 11.9 - 15.5 g/dL ANDREA Comment:Testing performed by : [address] [address] Hct 37.2 35.6 - 45.5 % ANDREA Comment:Testing performed by : [address] [address] Plt 250 150 - 400 K/cumm ANDREA Comment:Testing performed by : [address] [address] MPV 9.4 9.1 - 12.3 fL ANDREA Comment:Testing performed by : [address] [address] RBC 4.28 3.90 - 5.20 M/cumm ANDREA Comment:Testing performed by : [address] [address] MCV 86.9 81.3 - 96.4 fL ANDREA Comment:Testing performed by : [address] [address] MCH 29.4 27.1 - 33.3 pg ANDREA Comment:Testing performed by : [address] [address] MCHC 33.9 32.3 - 35.7 g/dL ANDREA Comment:Testing performed by : [address], [address] RDW CV 11.9 11.1 - 14.9 % ANDREA Comment:Testing performed by : [address] [address] RDW SD 37.5 35.7 - 48.1 fL ANDREA Comment:Testing performed by : [address], [address] Blood 12/24/2021 8:18 AM NITRIC ACID PLANT OPERATOR 12/24/2021 8:19 AM NITRIC ACID PLANT OPERATOR Vick Li LAB BLOOD ORDERABLES Final R esult Performing Organization Address [facility] Co de Phone Number ANDREA [facility] [place] [address] * Gastrin (12/24/2021 8:18 AM NITRIC ACID PLANT OPERATOR) Gastrin <10 pg/mL [facility] Comment: REFERENCE VALUE <100 Reference ranges valid for >= 8 hour fast. Test Performed by: [place] [address] Ad Compositor: Bjorn Morris M.D. Ph.D.; CLIA# [id number] Testing performed by: [facility], [address] [place] [address]., [address] Blood 12/24/2021 8:18 AM NITRIC ACID PLANT OPERATOR 12/24/2021 8:19 AM NITRIC ACID PLANT OPERATOR Vick Li [facility] BLOOD ORDERABLES [facility] Performing Organization Address [facility] de Phone Number ANDREA [address] [address] * Chromogranin A (12/24/2021 8:18 AM NITRIC ACID PLANT OPERATOR) Chromogranin A 22 <93 ng/mL [facility] Comment: ADDITIONAL INFORMATION This test was developed and its performance characteristics determined by [facility] in a manner consistent with CLIA requirements. [...] a homogeneous time-resolved immunofluorescent assay manufactured by [employer] and performed on the [employer] Kryptor Compact Plus. ? Values obtained with different assay methods or kits may be different and cannot be used interchangeably. ? Test results cannot be interpreted as absolute evidence for the presence or absence of malignant disease. Test Performed by: [facility] [address] [place] [address] Ad Compositor: Bjorn Morris M.D. Ph.D.; CLIA# [id number] Testing performed by: [address] [address] Blood 12/24/2021 8:18 AM NITRIC ACID PLANT OPERATOR 12/24/2021 8:19 AM NITRIC ACID PLANT OPERATOR us Vick Li DO LAB BLOOD ORDERABLES Final R esult ANDREA CASTILLO [address] [facility] Department [place] [address] * Comprehensive metabolic panel (11/26/2021 8:09 AM NITRIC ACID PLANT OPERATOR) Sodium 141 135 - 145 mmol/L ANDREA CASTILLO Comment:Testing performed by : [address] [address] Potassium, pl 4.0 3.3 - 4.9 mmol/L ANDREA CASTILLO Comment:Testing performed by : [address] [address] Chloride 104 97 - 110 mmol/L ANDREA CASTILLO Comment:Testing performed by : [address] [address] CO2 28 22 - 32 mmol/L ANDREA CASTILLO Comment:Testing performed by : [address] [address] Anion gap 9 2 - 15 mmol/L ANDREA Comment:Testing performed by : [address] [address] BUN 16 8 - 25 mg/dL ANDREA Comment:Testing performed by : [address] [address] Creatinine 0.60 0.60 - 1.10 mg/dL ANDREA Comment:Testing performed by : [address] [address] Glucose 140 70 - 199 mg/dL [facility] Comment: Interpretive Data Fasting glucose >/= [...] was last revised 2017. Testing performed by: [address] [address] Calcium 9.5 8.5 - 10.3 mg/dL ANDREA Comment:Testing performed by : [address] [address] Bilirubin, total 0.4 0.1 - 1.2 mg/dL ANDREA Comment:Testing performed by : [address] [address] Protein, pl 6.8 6.5 - 8.5 g/dL [facility] Comment:Testing performed by : [address] [address] Albumin 4.0 3.5 - 5.0 g/dL ANDREA Comment:Testing performed by : [address] [address] Alk phos 69 40 - 130 Units/L ANDREA Comment:Testing performed by : [address] [address] ALT 24 7 - 45 Units/L ANDREA Comment:Testing performed by : [address] [address] AST 29 10 - 45 Units/L ANDREA CASTILLO Comment:Testing performed by : [address] [address] Blood 11/26/2021 8:09 AM NITRIC ACID PLANT OPERATOR 11/26/2021 8:13 AM NITRIC ACID PLANT OPERATOR Vick Li DO LAB BLOOD ORDERABLES Final R esult ANDREA [address] [facility] [place] [address] * (ABNORMAL) CBC with auto differential (11/26/2021 8:09 AM NITRIC ACID PLANT OPERATOR) WBC 2.8(L) 3.8 - 9.9 K/cumm ANDREA CASTILLO Comment:Testing performed by : [address] [address] Hgb 11.9 11.9 - 15.5 g/dL ANDREA Comment:Testing performed by : [address] [address] Hct 34.6(L) 35.6 - 45.5 % ANDREA CASTILLO Comment:Testing performed by : [address] [address] Plt 225 150 - 400 K/cumm ANDREA Comment:Testing performed by : [address] [address] MPV 9.4 9.1 - 12.3 fL ANDREA Comment:Testing performed by : [address] [address] RBC 4.07 3.90 - 5.20 M/cumm ANDREA Comment:Testing performed by : [address] [address] MCV 85.0 81.3 - 96.4 fL ANDREA Comment:Testing performed by : [address], [address] MCH 29.2 27.1 - 33.3 pg ANDREA CASTILLO Comment:Testing performed by : [facility], [address] [place] [address]., [address] MCHC 34.4 32.3 - 35.7 g/dL ANDREA CASTILLO Comment:Testing performed by : [address] [address] RDW CV 11.8 11.1 - 14.9 % ANDREA CASTILLO Comment:Testing performed by : [address] [address] RDW SD 36.1 35.7 - 48.1 fL ANDREA CASTILLO Comment:Testing performed by : [address] [address] Blood 11/26/2021 8:09 AM NITRIC ACID PLANT OPERATOR 11/26/2021 8:13 AM NITRIC ACID PLANT OPERATOR Vick Li LAB BLOOD ORDERABLES Final R esult Performing Organization Address [facility] de Phone Number ANDREA [address] [place] [address] * Gastrin (11/26/2021 8:09 AM NITRIC ACID PLANT OPERATOR) Gastrin <10 pg/mL ANDREA CASTILLO Comment: REFERENCE VALUE <100 Reference ranges valid for >= 8 hour fast. Test Performed by: [facility] [address] [place] [address] Ad Compositor: Bjorn Morris M.D. Ph.D.; CLIA# [id number] Testing performed by: [address] [address] Blood 11/26/2021 8:09 AM NITRIC ACID PLANT OPERATOR 11/26/2021 8:13 AM NITRIC ACID PLANT OPERATOR Vick Li DO LAB BLOOD ORDERABLES Final R esult Performing Organization Address [facility] de Phone Number ANDREA [facility] [place] [address] * Chromogranin A (11/26/2021 8:09 AM NITRIC ACID PLANT OPERATOR) Chromogranin A 26 <93 ng/mL ANDREA CASTILLO Comment: ADDITIONAL INFORMATION This test was developed and its performance characteristics determined by [facility] in a manner consistent with CLIA requirements. This test has not been cleared or approved by the U.S. Food and Drug Administration. The testing method is a homogeneous time-resolved immunofluorescent assay manufactured by [employer] and performed on the [employer] Compact Plus. ? Values obtained with different assay methods or kits may be different and cannot be used interchangeably. ? Test results cannot be interpreted as absolute evidence for the presence or absence of malignant disease. Test Performed by: [facility] [address] [place] [address] Ad Compositor: Bjorn Morris M.D. Ph.D.; CLIA# [id number] Testing performed by: [facility], [address] [place] [address]., [address] Blood 11/26/2021 8:09 AM NITRIC ACID PLANT OPERATOR 11/26/2021 8:13 AM NITRIC ACID PLANT OPERATOR Vick Li DO LAB BLOOD ORDERABLES Final R esult ANDREA CASTILLO [address] [facility] [place] [address] documented in this encounter Visit Diagnoses Diagnosis Malignant carcinoid tumor of stomach (HCC)- Primary Malignant carcinoid tumor of the stomach documented in this encounter Orders Appointment Requests Count Last Ordered Date Fi rst Ordered Date ONCBCN CLINIC APPOINTMENT REQUEST 2 022 10/29/2021 ONCBCN INJECTION APPOINTMENT REQUEST 6 03/1911/26/2021 ONCBCN LAB APPOINTMENT 6 04/15/202211/26 documented in this encounter Care Teams Travel Ot Relationship Specialty Start Date End Date Elizabeth Borrego PA [address] [place], [place] [id number] PCP - General Internal Medicine 03/25/20 09/27/23 Luann [place], ANUP Nurse Practitioner Nurse Practitioner 01/06/19 Adarsh Tuttle MD [address] [place] [address] Consulting Physician Gastroenterology 02/22/19 Vick Li DO [address] [place] [address] Medical Oncologist/Center Maker Hand Hematology and Oncology 02/22/19 Guru Winters DO [address] [place] [address] Consulting Physician Gastroenterology 02/22/19 Gato Abrams MD [address] [place] [address] Surgeon Surgical Oncology 09/07/19 Marina Rosales MD [address] [place] [address] Consulting Physician General Surgery 03/24/21 documented as of this encounter
--- OUTSIDE RECORDS SUMMARY | 2024-10-04 03:01 | XMS_ITS | Encounter Summary ---
Author Organization [facility] Address [address] [place] [address] Phone Care Team Providers Care Snow Blower Name Role Phone MelindaLuann oh Aditya HEBERT Unavailable [phone] Adarsh Tuttle MD Unavailable [phone] Sebastien Martinez DO Unavailable [phone] Guru Winters DO Unavailable [phone] Gato Abrams MD Unavailable [phone] Elizabeth Borrego Primary Care Provider [phone] Marina Rosales MD Unavailable [phone] Reason for Visit * Episode Based Medications (Routine) - Closed Specialty Diagnoses / Procedures Referred By Contjimmy t Referred To Contact Oncology Diagnoses Malignant carcinoid tumor of stomach (HCC) Procedures ID OCTREOTIDE INJECTION, DEPOT Sebastien Martinez, [facility] [address] Phone: tel: fax: [facility] [address] [address] Phone: tel: fax: Referral ID Status Reason Start Date Expiration Date Visits Re quested Visits Authorized [id number] Closed 2022 02/19/2023 1 50 Encounter Details Date Type Department Care Team (Late st Contact Info) Description 07/30/2021 9:00 AM CDT Infusion [facility] [address] [facility] [address] [place] [address] Malignant carcinoid tumor of stomach [...] points, staff should administer the PHQ-9) 0 10/01/2020 Comments No Sex and Gender Information Value Date Recorded Sex Assigned at Not on file 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:22 AM SOFTWARE SUPPORT TECHNICIAN Gender Identity Female 06/07/2020 8:39 AM CDT Sexual Orientation Not on file 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 For IM intragluteal administration only- alternate gluteal sites. Shamir.Indications:Malignant carcinoid tumor of stomach (HCC) Given 07/30/2021 9:07 AM CDT 10 mg Right Dorsogluteal/Butt ock documented in this encounter Orders Appointment Requests Count Last Ordered Date Fi rst Ordered Date ONCBCN INJECTION APPOINTMENT REQUEST 2 07/18 documented in this encounter Care Teams Snow Blower Relationship Specialty Start Date End Date Elizabeth Borrego PA [address] [place], [place] [id number] PCP - General Internal Medicine 03/25/20 09/27/23 Luann Lawrence, ANUP Nurse Practitioner Nurse Practitioner 01/06/19 Adarsh Tuttle MD [address] [facility] [address] [place] [address] Consulting Physician Gastroenterology 02/22/19 Sebastien Martinez DO [address] [place] [id number] Medical Oncologist/Clinical Veterinarian Hematology and Oncology 02/22/19 Guru Winters DO [address] [place] [id number] Consulting Physician Gastroenterology 02/22/19 Gato Abrams MD [address] [place] [address] Surgeon Surgical Oncology 09/07/19 Marina Rosales MD [address] [facility] [address] [place] [address] Consulting Physician General Surgery 03/24/21 documented as of this encounter
--- OUTSIDE RECORDS SUMMARY | 2024-10-04 03:01 | XMS_ITS | Encounter Summary ---
Author Organization [facility] Healthcare Address [address] [place] [address] Care Team Providers Care Real Estate Assessor Name Role Phone Luann Lawrence NP Unavailable [phone] Adarsh Tuttle MD Unavailable [phone] Sebastien Martinez DO Unavailable [phone] Gruu Winters DO Unavailable [phone] Gato Abrams MD Unavailable Elizabeth Borrego Primary Care Provider [phone] Marina Rosales MD Unavailable Encounter Details Date Type Department Care Team (Late st Contact Info) Description 07/30/2021 8:30 AM CDT Lab [facility] Lab [address] [place] [address] Malignant carcinoid tumor of stomach (CMS/HCC) (HCC) [...] file 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:22 AM LIFE MANAGER Gender Identity Female 06/07/2020 8:39 AM CDT Sexual Orientation Not on file 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 documented as of this encounter Plan of Treatment Not on file documented as of this encounter Procedures Procedure Name Priority Date/Time Associated Diagnosis Comments EGFR Routine 07/30/2021 8:52 AM CDT Malignant carcinoid tumor of stomach (CMS/HCC) (HCC) DIFFERENTIAL AUTO STAT 07/30/2021 8:5 2 AM CDT Malignant carcinoid tumor of stomach (CMS/HCC) (HCC) CHROMOGRANIN A Routine 07/30/2021 8:52 AM CDT Malignant carcinoid tumor of stomach (CMS/HCC) (HCC) CBC WITH AUTO DIFFERENTIAL STAT 07/30/2021 8:52 AM CDT Malignant carcinoid tumor of stomach (CMS/HCC) (HCC) GASTRIN Routine 07/30/2021 8:52 AM CDT Malignant carcinoid tumor of stomach (CMS/HCC) (HCC) COMPREHENSIVE METABOLIC PANEL Routine 07/30/2021 8:52 AM CDT Malignant carcinoid tumor of stomach (CMS/HCC) (HCC) documented in this encounter Results * eGFR (07/30/2021 8:52 AM CDT) eGFR 103 mL/min/1.7 3 m2 ANDREA CASTILLO Comment: Interpretive Data Reference Interval Normal ?>/= 90 mL/min/1.73m2 Mildly decreased* ? 60 - 89 mL/min/1.73m2 Mildly to moderately decreased ?45 - 59 mL/min/1.73m2 Moderately to severely decreased ??30 - 44 mL/min/1.73m2 Severely decreased ?15 - 29 mL/min/1.73m2 Kidney Failure ?< 15 ??mL/min/1.73m2 *Relative to young adult level Estimated glomerular filtration rate is determined by the CKD-EPI equation recommended by the National Kidney Foundation (KDIGO 2012 Clinical Practice Guideline for the Evaluation and Management of Chronic Kidney Disease. Kidney Intnl Suppl Oct 2012;3:1). The CKD-EPI equation should not be used for patients with unstable renal function and has not been validated in children and those over 70. Current interpretive data was last reviewed 2020 Testing performed by: [address] [address] Blood 07/30/2021 8:52 AM CDT 07/30/2021 8:54 AM CDT us Sebastien Martinez DO LAB BLOOD ORDERABLES Final R esult ANDREA [address] [facility] Department [place] [address] * Differential, auto (07/30/2021 8:52 AM CDT) Neutrophil abs 2.2 1.7 - 6.5 K/cumm ANDREA Comment:Testing performed by : [address] [address] Lymphocyte abs 0.8 0.8 - 3.3 K/cumm ANDREA Comment:Testing performed by : [address] [address] Monocyte abs 0.2 0.2 - 0.8 K/cumm ANDREA Comment:Testing performed by : [address] [address] Eosinophil abs 0.1 0.0 - 0.5 K/cumm ANDREA Comment:Testing performed by : [address] [address] Neutrophil pct 66.4 % [facility] Comment: Interpretive Data Percent cell count reference ranges are not reported, since discordance with absolute values may lead to misinterpretation of CBC data. Current Interpretive Data was last revised on 2018. Testing performed by: [address] [address] Imm gran pct 0.3 % [facility] Comment: Interpretive Data Percent cell count reference ranges are not reported, since discordance with absolute values may lead to misinterpretation of CBC data. Current Interpretive Data was last revised on 2018. Testing performed by: [address] [address] Lymphocyte pct 22.8 % [facility] Comment: Interpretive Data Percent cell count reference ranges are not reported, since discordance with absolute values may lead to misinterpretation of CBC data. Current Interpretive Data was last revised on 2018. Testing performed by: [address] [address] Monocyte pct 5.1 % [facility] Comment: Interpretive Data Percent cell count reference ranges are not reported, since discordance with absolute values may lead to misinterpretation of CBC data. Current Interpretive Data was last revised on 2018. Testing performed by: [address] [address] Eosinophil pct 4.2 % [facility] Comment: Interpretive Data Percent cell count reference ranges are not reported, since discordance with absolute values may lead to misinterpretation of CBC data. Current Interpretive Data was last revised on 2018. Testing performed by: [address] [address] Basophil pct 1.2 % [facility] Comment: Interpretive Data Percent cell count reference ranges are not reported, since discordance with absolute values may lead to misinterpretation of CBC data. Current Interpretive Data was last revised on 2018. Testing performed by: [address] [address] Blood 07/30/2021 8:52 AM CDT 07/30/2021 8:54 AM CDT Sebastien Sena Martinez DO LAB BLOOD ORDERABLES Final R esult Performing Organization Address [facility] Co de Phone Number ANDREA [facility] [place] [address] * Gastrin (07/30/2021 8:52 AM CDT) Gastrin 12 pg/mL [facility] Comment: REFERENCE VALUE <100 Reference ranges valid for >= 8 hour fast. Test Performed by: [facility] [address] [place] [address] Business Systems Advisor: Bjorn Morris M.D. Ph.D.; CLIA# [id number] Testing performed by: [facility], [address] [place] [address]., [address] Blood 07/30/2021 8:52 AM CDT 07/30/2021 8:54 AM CDT Sebastien Martinez DO LAB BLOOD ORDERABLES Final R [facility] Performing Organization Address [facility] de Phone Number ANDREA [address] [address] * Chromogranin A (07/30/2021 8:52 AM CDT) Chromogranin A 25 <93 ng/mL [facility] Comment: ADDITIONAL INFORMATION This test was developed and its performance characteristics determined by [facility] in a manner consistent with CLIA requirements. This test has not been cleared or approved by the U.S. Food and Drug Administration. The testing method is a homogeneous time-resolved immunofluorescent assay manufactured by [employer] and performed on the [employer]ch[employer] Compact Plus. ? Values obtained with different assay methods or kits may be different and cannot be used interchangeably. ? Test results cannot be interpreted as absolute evidence for the presence or absence of malignant disease. Test Performed by: [facility] [address] [place] [address] Business Systems Advisor: Bjorn Morris M.D. Ph.D.; CLIA# [id number] Testing performed by: [address] [address] Blood 07/30/2021 8:52 AM CDT 07/30/2021 8:54 AM CDT Sebastien Martinez DO LAB BLOOD ORDERABLES Final R esult ANDREA [address] [facility] Department [place] [address] * (ABNORMAL) CBC with auto differential (07/30/2021 8:52 AM CDT) Pathologist [facility] WBC 3.3(L) 3.8 - 9.9 K/cumm ANDREA Comment:Testing performed by : [address] [address] Hgb 11.6(L) 11.9 - 15.5 g/dL ANDREA Comment:Testing performed by : [address] [address] Hct 34.8(L) 35.6 - 45.5 % ANDREA Comment:Testing performed by : [address] [address] Plt 231 150 - 400 K/cumm ANDREA CASTILLO Comment:Testing performed by : [address] [address] MPV 9.4 9.1 - 12.3 fL ANDREA CASTILLO Comment:Testing performed by : [address] [address] RBC 3.98 3.90 - 5.20 M/cumm ANDREA Comment:Testing performed by : [address] [address] MCV 87.4 81.3 - 96.4 fL ANDREA CASTILLO Comment:Testing performed by : [address] [address] MCH 29.1 27.1 - 33.3 pg ANDREA CASTILLO Comment:Testing performed by : [address] [address] MCHC 33.3 32.3 - 35.7 g/dL ANDREA CASTILLO Comment:Testing performed by : [address] [address] RDW CV 12.1 11.1 - 14.9 % ANDREA CASTILLO Comment:Testing performed by : [address] [address] RDW SD 38.5 35.7 - 48.1 fL ANDREA CASTILLO Comment:Testing performed by : [address] [address] Blood 07/30/2021 8:52 AM CDT 07/30/2021 8:54 AM CDT us Sebastien Martinez DO LAB BLOOD ORDERABLES Final R esult ANDREA [facility] Department [place] [address] * Comprehensive metabolic panel (07/30/2021 8:52 AM CDT) Sodium 139 135 - 145 mmol/L ANDREA CASTILLO Comment:Testing performed by : [address] [address] Potassium, pl 4.3 3.3 - 4.9 mmol/L ANDREA CASTILLO Comment:Testing performed by : [address] [address] Chloride 105 97 - 110 mmol/L ANDREA CASTILLO Comment:Testing performed by : [address] [address] CO2 29 22 - 32 mmol/L ANDREA CASTILLO Comment:Testing performed by : [address] [address] Anion gap 5 2 - 15 mmol/L ANDREA CASTILLO Comment:Testing performed by : [address] [address] BUN 16 8 - 25 mg/dL ANDREA Comment:Testing performed by : [address] [address] Creatinine 0.60 0.60 - 1.10 mg/dL ANDREA Comment:Testing performed by : [address] [address] Glucose 121 70 - 199 mg/dL ANDREA Comment: Interpretive [...] was last revised 2017. Testing performed by: [address] [address] Calcium 9.3 8.5 - 10.3 mg/dL ANDREA Comment:Testing performed by : [address] [address] Bilirubin, total 0.4 0.1 - 1.2 mg/dL ANDREA Comment:Testing performed by : [address] [address] Protein, pl 6.9 6.5 - 8.5 g/dL ANDREA Comment:Testing performed by : [address] [address] Albumin 4.3 3.5 - 5.0 g/dL ANDREA Comment:Testing performed by : [address] [address] Alk phos 66 40 - 130 Units/L ANDREA Comment:Testing performed by : [address] [address] ALT 38 7 - 45 Units/L ANDREA Comment:Testing performed by : [address] [address] AST 32 10 - 45 Units/L ANDREA Comment:Testing performed by : [facility], [address] [place]., [address] Blood 07/30/2021 8:52 AM CDT 07/30/2021 8:54 AM CDT Sebastien Martinez DO LAB BLOOD ORDERABLES Final R esult ANDREA [address] [facility] Department [place] [address] documented in this encounter Visit Diagnoses Diagnosis Malignant carcinoid tumor of stomach (HCC) Malignant carcinoid tumor of the stomach documented in this encounter Orders Appointment Requests Count Last Ordered Date Fi rst Ordered Date ONCBCN LAB APPOINTMENT 1 07/30/2021 documented in this encounter Care Teams Real Estate Assessor Relationship Specialty Start Date End Date Elizabeth Borrego PA [address] [facility] [address] [place] [address] PCP - General Internal Medicine 03/25/20 09/27/23 Luann Lawrence NP Nurse Practitioner Nurse Practitioner 01/06/19 Adarsh Tuttle MD [address] [facility] [address] [place] [address] Consulting Physician Gastroenterology 02/22/19 Sebastien Martinez DO [address] [place] [address] Medical Oncologist/Outbound Sales Representative Hematology and Oncology 02/22/19 Guru Winters DO [address] [place] [address] Consulting Physician Gastroenterology 02/22/19 Gato Abrams MD [address] [facility] [address] [place] [address] Surgeon Surgical Oncology 09/07/19 Marina Rosales MD [address] [facility] [address] [place], [place] [id number] Consulting Physician General Surgery 03/24/21 documented as of this encounter
--- OUTSIDE RECORDS SUMMARY | 2024-10-04 03:01 | XMS_ITS | Encounter Summary ---
Author Organization [facility] Healthcare Address [address] [place] [address] Care Team Providers Care District Manager Name Role Phone Luann Lawrence NP Unavailable [phone] Adarsh Tuttle MD Unavailable [phone] Sebastien Martinez DO Unavailable [phone] Guru Winters DO Unavailable [phone] Gato Abrams MD Unavailable [phone] Elizabeth Borrego Primary Care Provider [phone] Marina Rosales MD Unavailable [phone] Encounter Details Date Type Department Care Team (Late st Contact Info) Description 08/27/2021 9:45 AM FIELD OPERATOR Lab [facility] [place] [facility] [address] [place] [address] Malignant carcinoid tumor of stomach (CMS/HCC) (HCC) [...] on file 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:22 AM FIELD OPERATOR Gender Identity Female 06/07/2020 8:39 AM CDT Sexual Orientation Not on file 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 Not on file Not on mikie e documented as of this encounter Plan of Treatment Not on file documented as of this encounter Procedures Procedure Name Priority Date/Time Associated Diagnosis Comments EGFR Routine 08/27/2021 9:37 AM FIELD OPERATOR Malignant carcinoid tumor of stomach (CMS/HCC) (HCC) DIFFERENTIAL AUTO STAT 08/27/2021 9:3 7 AM FIELD OPERATOR Malignant carcinoid tumor of stomach (CMS/HCC) (HCC) CHROMOGRANIN A Routine 08/27/2021 9:37 AM FIELD OPERATOR Malignant carcinoid tumor of stomach (CMS/HCC) (HCC) CBC WITH AUTO DIFFERENTIAL STAT 08/27/2021 9:37 AM FIELD OPERATOR Malignant carcinoid tumor of stomach (CMS/HCC) (HCC) GASTRIN Routine 08/27/2021 9:37 AM FIELD OPERATOR Malignant carcinoid tumor of stomach (CMS/HCC) (HCC) COMPREHENSIVE METABOLIC PANEL Routine 08/27/2021 9:37 AM FIELD OPERATOR Malignant carcinoid tumor of stomach (CMS/HCC) (HCC) documented in this encounter Results * eGFR (08/27/2021 9:37 AM FIELD OPERATOR) eGFR 103 mL/min/1.7 3 m2 ANDREA CASTILLO [...] last reviewed 2020 Testing performed by: [address] [address] Blood 08/27/2021 9:37 AM FIELD OPERATOR 08/27/2021 9:44 AM FIELD OPERATOR us Sebastien Martinez DO LAB BLOOD ORDERABLES Final R esult ANDREA [address] [facility] Department [place] [address] * Differential, auto (08/27/2021 9:37 AM FIELD OPERATOR) Neutrophil abs 2.2 1.7 - 6.5 K/cumm ANDREA Comment:Testing performed by : [address] [address] Lymphocyte abs 1.1 0.8 - 3.3 K/cumm ANDREA Comment:Testing performed by : [address] [address] Monocyte abs 0.3 0.2 - 0.8 K/cumm ANDREA Comment:Testing performed by : [address] [address] Eosinophil abs 0.1 0.0 - 0.5 K/cumm ANDREA Comment:Testing performed by : [address] [address] Neutrophil pct 59.1 % [facility] Comment: Interpretive Data Percent cell count reference ranges are not reported, since discordance with absolute values may lead to misinterpretation of CBC data. Current Interpretive Data was last revised on 2018. Testing performed by: [address] [address] Imm gran pct 0.3 % [facility] Comment: Interpretive Data Percent cell count reference ranges are not reported, since discordance with absolute values may lead to misinterpretation of CBC data. Current Interpretive Data was last revised on 2018. Testing performed by: [address] [address] Lymphocyte pct 28.8 % [facility] Comment: Interpretive Data Percent cell count reference ranges are not reported, since discordance with absolute values may lead to misinterpretation of CBC data. Current Interpretive Data was last revised on 2018. Testing performed by: [address] [address] Monocyte pct 6.9 % [facility] Comment: Interpretive Data Percent cell count reference ranges are not reported, since discordance with absolute values may lead to misinterpretation of CBC data. Current Interpretive Data was last revised on 2018. Testing performed by: [address] [address] Eosinophil pct 3.8 % [facility] Comment: Interpretive Data Percent cell count reference ranges are not reported, since discordance with absolute values may lead to misinterpretation of CBC data. Current Interpretive Data was last revised on 2018. Testing performed by: [address] [address] Basophil pct 1.1 % [facility] Comment: Interpretive Data Percent cell count reference ranges are not reported, since discordance with absolute values may lead to misinterpretation of CBC data. Current Interpretive Data was last revised on 2018. Testing performed by: [address] [address] Blood 08/27/2021 9:37 AM FIELD OPERATOR 08/27/2021 9:44 AM FIELD OPERATOR us Sebastien Martinez DO LAB BLOOD ORDERABLES Final R esult Performing Organization Address [facility] de Phone Number ANDREA [address] [place] [address] * Chromogranin A (08/27/2021 9:37 AM FIELD OPERATOR) Chromogranin A <20 <93 ng/mL ANDREA Comment: ADDITIONAL INFORMATION This test was developed and its performance characteristics determined by [facility] in a manner consistent with CLIA requirements. This test has not been cleared or approved by the U.S. Food and Drug Administration. The testing method is a homogeneous time-resolved immunofluorescent assay manufactured by [employer] and performed on the [employer] KrSarbarior Compact Plus. ? Values obtained with different assay methods or kits may be different and cannot be used interchangeably. ? Test results cannot be interpreted as absolute evidence for the presence or absence of malignant disease. Test Performed by: [place] [address] Tipple Oiler: Bjorn Morris M.D. Ph.D.; CLIA# [id number] Testing performed by: [facility], [address] [place] [address]., [address] Blood 08/27/2021 9:37 AM FIELD OPERATOR 08/27/2021 9:44 AM FIELD OPERATOR Sebastien Martinez DO LAB BLOOD ORDERABLES Final R esult Performing Organization Address [facility] Co de Phone Number ANDREA [address] [place] [address] * Gastrin (08/27/2021 9:37 AM FIELD OPERATOR) Gastrin <10 pg/mL [facility] Comment: REFERENCE VALUE <100 Reference ranges valid for >= 8 hour fast. Test Performed by: [facility] [address] [place] [address] Tipple Oiler: Bjorn Morris M.D. Ph.D.; CLIA# [id number] Testing performed by: [address] [address] Blood 08/27/2021 9:37 AM FIELD OPERATOR 08/27/2021 9:44 AM FIELD OPERATOR us Sebastien Martinez DO LAB BLOOD ORDERABLES Final R esult ANDREA [address] [facility] Department [place] [address] * (ABNORMAL) CBC with auto differential (08/27/2021 9:37 AM FIELD OPERATOR) WBC 3.6(L) 3.8 - 9.9 K/cumm ANDREA CASTILLO Comment:Testing performed by : [address] [address] Hgb 12.1 11.9 - 15.5 g/dL ANDREA CASTILLO Comment:Testing performed by : [address] [address] Hct 36.0 35.6 - 45.5 % ANDREA CASTILLO Comment:Testing performed by : [address] [address] Plt 242 150 - 400 K/cumm ANDREA Comment:Testing performed by : [address] [address] MPV 9.8 9.1 - 12.3 fL ANDREA CASTILLO Comment:Testing performed by : [address] [address] RBC 4.19 3.90 - 5.20 M/cumm ANDREA CASTILLO Comment:Testing performed by : [address] [address] MCV 85.9 81.3 - 96.4 fL ANDREA CASTILLO Comment:Testing performed by : [address] [place] [address] MCH 28.9 27.1 - 33.3 pg ANDREA CASTILLO Comment:Testing performed by : [address] [address] MCHC 33.6 32.3 - 35.7 g/dL ANDREA CASTILLO Comment:Testing performed by : [address] [address] RDW CV 12.0 11.1 - 14.9 % ANDREA CASTILLO Comment:Testing performed by : [address], [place]., [address] RDW SD 37.7 35.7 - 48.1 fL ANDREA CASTILLO Comment:Testing performed by : [address] [address] Blood 08/27/2021 9:37 AM FIELD OPERATOR 08/27/2021 9:44 AM FIELD OPERATOR Sebastien Martinez DO LAB BLOOD ORDERABLES Final R esult ANDREA [address] [facility] Department [place] [address] * Comprehensive metabolic panel (08/27/2021 9:37 AM FIELD OPERATOR) Sodium 142 135 - 145 mmol/L ANDREA CASTILLO Comment:Testing performed by : [address] [address] Potassium, pl 4.2 3.3 - 4.9 mmol/L ANDREA CASTILLO Comment:Testing performed by : [address] [address] Chloride 107 97 - 110 mmol/L ANDREA CASTILLO Comment:Testing performed by : [address] [address] CO2 29 22 - 32 mmol/L ANDREA CASTILLO Comment:Testing performed by : [address] [address] Anion gap 6 2 - 15 mmol/L ANDREA CASTILLO Comment:Testing performed by : [address] [address] BUN 16 8 - 25 mg/dL ANDREA Comment:Testing performed by : [address] [address] Creatinine 0.60 0.60 - 1.10 mg/dL ANDREA Comment:Testing performed by : [address] [address] Glucose 103 70 - 199 mg/dL [facility] Comment: Interpretive Data Fasting glucose >/= 126 [...] last revised 2017. Testing performed by: [address] [address] Calcium 9.4 8.5 - 10.3 mg/dL [facility] Comment:Testing performed by : [address] [address] Bilirubin, total 0.4 0.1 - 1.2 mg/dL [facility] Comment:Testing performed by : [address] [address] Protein, pl 7.2 6.5 - 8.5 g/dL [facility] Comment:Testing performed by : [address] [address] Albumin 4.2 3.5 - 5.0 g/dL [facility] Comment:Testing performed by : [address] [address] Alk phos 65 40 - 130 Units/L ANDREA Comment:Testing performed by : [address] [address] ALT 15 7 - 45 Units/L [facility] Comment:Testing performed by : [address], [address] AST 22 10 - 45 Units/L [facility] Comment:Testing performed by : [place] [address] [place]., [address] Blood 08/27/2021 9:37 AM FIELD OPERATOR 08/27/2021 9:44 AM FIELD OPERATOR Sebastien Martinez DO LAB BLOOD ORDERABLES Final R esult ANDREA [address] [facility] Department [place] [address] documented in this encounter Visit Diagnoses Diagnosis Malignant carcinoid tumor of stomach (HCC) Malignant carcinoid tumor of the stomach documented in this encounter Orders Appointment Requests Count Last Ordered Date Fi rst Ordered Date ONCBCN LAB APPOINTMENT 1 08/27/2021 documented in this encounter Care Teams District Manager Relationship Specialty Start Date End Date Elizabeth Borrego PA [address] [facility] [address] [place], [place] [id number] PCP - General Internal Medicine 03/25/20 09/27/23 Luann Lawrence, FREIGHT MANAGER Nurse Practitioner Nurse Practitioner 01/06/19 Adarsh Tuttle MD [address] [facility] [address] [place] [address] Consulting Physician Gastroenterology 02/22/19 Sebastien Martinez DO [address] [place] [address] Medical Oncologist/Monument Carver Hematology and Oncology 02/22/19 Guru Winters DO [address] [place] [address] Consulting Physician Gastroenterology 02/22/19 Gato Abrams MD [address] [place] [address] [place] [address] Surgeon Surgical Oncology 09/07/19 Marina Rosales MD [address] [facility] [address] [place] [address] Consulting Physician General Surgery 03/24/21 documented as of this encounter
--- OUTSIDE RECORDS SUMMARY | 2024-10-04 03:01 | XMS_ITS | Encounter Summary ---
Author Organization [facility] Address [address] [place] [address] Phone Care Team Providers Care Tugboat Engineer Name Role Phone MelindaLuann ho ANUP Unavailable [phone] Adarsh Tuttle MD Unavailable [phone] Sebastien Martinez DO Unavailable [phone] Guru Winters DO Unavailable [phone] Gato Abrams MD Unavailable [phone] Elizabeth Borrego Primary Care Provider [phone] Marina Rosales MD Unavailable [phone] Reason for Visit * Reason Comments Injections * Episode Based Medications (Routine) - Closed Specialty Diagnoses / Procedures Referred By Clemencia mendez Referred To Contact Oncology Diagnoses Malignant carcinoid tumor of stomach (HCC) Procedures [place] OCTREOTIDE INJECTION, DEPOT Sebastien Martinez DO [facility] [address] Phone: tel: fax: [facility] Oncology [address] [address] Phone: tel: fax: Referral ID Status Reason Start Date Expiration Date Visits Re quested Visits Authorized [id number] Closed 2022 02/19/2023 1 50 Encounter Details Date Type Department Care Team (Late st Contact Info) Description 06/27/2021 9:00 AM CDT Infusion [facility] Oncology [address] [facility] [address] [place] [address] Malignant carcinoid tumor of stomach [...] on file 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:22 AM TRAINING COORDINATOR Gender Identity Female 06/07/2020 8:39 AM CDT Sexual Orientation Not on file 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 No complaints. documented in this encounter Plan of Treatment [...] 10 mg 10 mg, intramuscular, Once, On Wed06/27/21 at 0945, For 1 dose, Refrigerate. For IM intragluteal administration only- alternate gluteal sites. Shamir.Indications:Malignant carcinoid tumor of stomach (HCC) Given 06/27/2021 9:21 AM CDT 10 mg Left Dorsogluteal/Butt ock documented in this encounter Orders Appointment Requests Count Last Ordered Date Fi rst Ordered Date ONCBCN INJECTION APPOINTMENT REQUEST 1 06/18 documented in this encounter Care Teams Tugboat Engineer Relationship Specialty Start Date End Date Elizabeth Borrego PA 10[address] [facility] [address] [place], [place] [id number] PCP - General Internal Medicine 03/25/20 09/27/23 Luann Lawrence, ANUP Nurse Practitioner Nurse Practitioner 01/06/19 Adarsh Tuttle MD [address] [facility] [address] [place] [address] Consulting Physician Gastroenterology 02/22/19 Sebastien Martinez DO [address] [place] [address] Medical Oncologist/Wink Cutter Operator Hematology and Oncology 02/22/19 Guru Winters DO [address] [place] [address] Consulting Physician Gastroenterology 02/22/19 Gato Abrams MD [address] [place] [address] Surgeon Surgical Oncology 09/07/19 Marina Rosales MD [facility]5 [facility] 500 [place] [address] Consulting Physician General Surgery 03/24/21 documented as of this encounter
--- OUTSIDE RECORDS SUMMARY | 2024-10-04 03:01 | XMS_ITS | Encounter Summary ---
Author Organization [facility] Address [address] [place] [address] Phone Care Team Providers Care Barrel Lathe Operator Outside Name Role Phone MelindaLuann oh ANUP Unavailable [phone] Adarsh Tuttle MD Unavailable [phone] Sebastien Martinez DO Unavailable [phone] Guru Winters DO Unavailable [phone] Gato Abrams MD Unavailable [phone] Elizabeth Borrego Primary Care Provider [phone] Marina Rosales MD Unavailable [phone] Reason for Visit * Reason Comments Injections * Episode Based Medications (Routine) - Closed Specialty Diagnoses / Procedures Referred By Clemencia mendez Referred To Contact Oncology Diagnoses Malignant carcinoid tumor of stomach (HCC) Procedures [place] OCTREOTIDE INJECTION, DEPOT Sebastien Martinez DO [facility] [address] Phone: tel: fax: [facility] Oncology [address] [address] Phone: tel: fax: Referral ID Status Reason Start Date Expiration Date Visits Re quested Visits Authorized [id number] Closed 2022 02/19/2023 1 50 Encounter Details Date Type Department Care Team (Late st Contact Info) Description 09/24/2021 10:15 AM REGIONAL TRAINING MANAGER Infusion 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 Not on mikie e documented as of this encounter Last Filed Vital Signs Vital Sign Reading Time Taken Comments Blood Pressure 132/80 09/24/2021 10:05 AM REGIONAL TRAINING MANAGER Pulse 62 09/24/2021 10:05 AM REGIONAL TRAINING MANAGER Temperature - - Respiratory Rate 16 09/24/2021 10:05 AM REGIONAL TRAINING MANAGER Oxygen Saturation 97% 09/24/2021 10:05 AM REGIONAL TRAINING MANAGER Inhaled Oxygen Concentration - - Weight 70.9 kg (156 lb 6.4 oz) 09/24/2021 10:05 AM REGIONAL TRAINING MANAGER Height - - Body Mass Index 26.85 09/23/2021 9:36 AM REGIONAL TRAINING MANAGER documented in this encounter Plan of Treatment [...] 10 mg 10 mg, intramuscular, Once, On Wed09/24/21 at 1045, For 1 dose, Refrigerate. For IM intragluteal administration only- alternate gluteal sites. Shamir.Indications:Malignant carcinoid tumor of stomach (HCC) Given 09/24/2021 10:09 AM REGIONAL TRAINING MANAGER 10 mg Right Dorsogluteal/Butt ock documented in this encounter Orders Appointment Requests Count Last Ordered Date Fi rst Ordered Date ONCBCN INJECTION APPOINTMENT REQUEST 1 05/2021 documented in this encounter Care Teams Barrel Lathe Operator Outside Relationship Specialty Start Date End Date Elizabeth Borrego PA 1095 [facility] [address] [place], [place] [id number] PCP - General Internal Medicine 03/25/20 09/27/23 Luann Lawrence, ANUP Nurse Practitioner Nurse Practitioner 01/06/19 Adarsh Tuttle MD [address] [facility] [address] [place] [address] Consulting Physician Gastroenterology 02/22/19 Sebastien Martinez DO [address] [place] [address] Medical Oncologist/Buckle Inspector Hematology and Oncology 02/22/19 Guru Winters DO [facility] [address] Consulting Physician Gastroenterology 02/22/19 Gato Abrams MD [address] [place] [address] Surgeon Surgical Oncology 09/07/19 Marina Rosales MD 1095 [facility] 500 [place] [address] Consulting Physician General Surgery 03/24/21 documented as of this encounter
--- OUTSIDE RECORDS SUMMARY | 2024-10-04 03:01 | XMS_ITS | Encounter Summary ---
Author Organization [facility] Address [address] [place] [address] Phone Care Team Providers Care Recordist Name Role Phone MelindaLuann oh ANUP Unavailable [phone] Adarsh Tuttle MD Unavailable [phone] Sebastien Martinez DO Unavailable [phone] Guru Winters DO Unavailable [phone] Gato Abrams MD Unavailable [phone] Elizabeth Borrego Primary Care Provider [phone] Marina Rosales MD Unavailable [phone] Reason for Visit * Reason Comments Injections * Episode Based Medications (Routine) - Closed Specialty Diagnoses / Procedures Referred By Clemencia mendez Referred To Contact Oncology Diagnoses Malignant carcinoid tumor of stomach (HCC) Procedures [place] OCTREOTIDE INJECTION, DEPOT Sebastien Martinez DO [facility] [address] Phone: tel: fax: [facility] Oncology [address] [address] Phone: tel: fax: Referral ID Status Reason Start Date Expiration Date Visits Re quested Visits Authorized [id number] Closed 2022 02/19/2023 1 50 Encounter Details Date Type Department Care Team (Late st Contact Info) Description 10/29/2021 10:15 AM QUALITY SYSTEM MANAGER Infusion [facility] Oncology [address] [facility] [address] [place] [address] Malignant carcinoid tumor of stomach [...] on file 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:22 AM QUALITY SYSTEM MANAGER Gender Identity Female 06/07/2020 8:39 AM CDT Sexual Orientation Not on file 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 Tolerated injection well. ITY SYSTEM MANAGER documented in this encounter Plan of [...] 10 mg 10 mg, intramuscular, Once, On Wed10/29/21 at 1100, For 1 dose, Refrigerate. For IM intragluteal administration only- alternate gluteal sites. Shake.Indications:Malignant carcinoid tumor of stomach (HCC) Given 10/29/2021 10:26 AM QUALITY SYSTEM MANAGER 10 mg Left Dorsogluteal/Butt ock documented in this encounter Orders Appointment Requests Count Last Ordered Date Fi rst Ordered Date ONCBCN INJECTION APPOINTMENT REQUEST 1 10/18 documented in this encounter Care Teams Recordist Relationship Specialty Start Date End Date Elizabeth Borrego PA [address] [place], [place] [phone] PCP - General Internal Medicine 03/25/20 09/27/23 Luann Lawrence, ANUP Nurse Practitioner Nurse Practitioner 01/06/19 Adarsh Tuttle MD [address] [facility] [address] [place] [address] Consulting Physician Gastroenterology 02/22/19 Sebastien Martinez DO [address] [address] Medical Oncologist/Morning Babysitter Hematology and Oncology 02/22/19 Guru Winters DO [address] [address] Consulting Physician Gastroenterology 02/22/19 Gato Abrams MD [address] [id number] Surgeon Surgical Oncology 09/07/19 Marina Rosales MD [address] [place] [address] Consulting Physician General Surgery 03/24/21 documented as of this encounter
--- OUTSIDE RECORDS SUMMARY | 2024-10-04 03:01 | XMS_ITS | Encounter Summary ---
Author Organization [facility] Address [address] [facility] [address] [place] [address] Care Team Providers Care Box Stacker Name Role Phone Luann Lawrence NP Unavailable [phone] Adarsh Tuttle MD Unavailable [phone] Sebastien Martinez DO Unavailable [phone] Guru Winters DO Unavailable [phone] Gato Abrams MD Unavailable [phone] Elizabeth Borrego Primary Care Provider [phone] Marina Rosales MD Unavailable [phone] Reason for Visit * Reason Comments Preventative Care Encounter Details Date Type Department Care Team (Late st Contact Info) Description 10/28/2021 3:00 PM ADVERTISING JOB TITLES Office Visit [facility] Family Medicine [address] [place] [address] Elizabeth Borrego PA [address] 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 Not on file Not on file documented as of this encounter Last Filed Vital Signs Vital Sign Reading Time Taken Comments Blood Pressure 110/52 10/28/2021 2:56 PM ADVERTISING JOB TITLES Pulse 60 10/28/2021 2:56 PM ADVERTISING JOB TITLES Temperature 36.7 ??C (98 ??F) 10/28/2021 2:56 PM ADVERTISING JOB TITLES Respiratory Rate - - Oxygen Saturation 96% 10/28/2021 2:56 PM ADVERTISING JOB TITLES Inhaled Oxygen Concentration - - Weight 71.4 kg (157 lb 6.4 oz) 10/28/2021 2:56 P M ADVERTISING JOB TITLES Height - - Body Mass Index 27.02 09/23/2021 9:36 AM ADVERTISING JOB TITLES documented in this encounter Patient Instructions * Patient Instructions* Elizabeth Borrego PA - 10/28/2021 3:00 PM ADVERTISING JOB TITLES 1 -- 3pm Wellness exam RTISING JOB TITLES documented in this encounter Progress Notes * Elizabeth Borrego PA - 10/28/2021 3:00 PM CST Images from the original note were not included. Subjective/Objective Patient ID: Fabiola Gibson is a 56 y.o. female. Chief Complaint Preventative Care HPI Patient presents for wellness exam and followup chronic concerns. ?? ONC Dr. Martinez - still on sandostatin and pt states all is stable . ??Has appointment tomorrow. Dr. Rodney - Left BBB -- all is stable and f.u 1 year. ?? HLD - Pravastatin HTN - valsartan/HCTZ Depression --- Lexapro 10 and Wellbutrin 150 FLU - UTD Mamm - 10/2020 negative. Has order to get scheduled. Colonoscopy - 11/2020 -- tubular adenoma (Has egd with Dr. Tuttle and will be due again in 03/2022 so will check to see if can do at the same time. ?? Review of Systems See HPI Vitals: 10/28/21 1456 BP: 110/52 BP Location: Left arm Patient Position: Sitting Pulse: 60 Temp: 36.7 ??C (98 ??F) SpO2: 96% Weight: 71.4 kg (157 lb 6.4 oz) Physical Exam Vitals and nursing note reviewed. [...] health. Reviewed immunizations Reviewed age appropirate screenings. Mixed hyperlipidemia (E78.2) Assessment & Plan: Encouraged patient to follow fat/low chol diet like the Mediterranean diet. Increase good fats inthe diet. Increase exercise. Monitor labs as needed. Continue pravastatin BMI 26.0-26.9,adult (Z68.26) Assessment & Plan: Weight/BMI is in healthy range. Continue healthy lifestyle to maintain. Moderate episode of recurrent major depressive disorder (HCC) (F33.1) Assessment & Plan: Stable with Lexapro and Wellbutrin Breast cancer screening by mammogram (Z12.31) Assessment & Plan: Has mammogram order. Encouraged to schedule. HTN (hypertension), benign (I10) Assessment & Plan: Bp is stable/in acceptable range for any co-morbidities. Encouraged to limit sodium intake and exercise for weight control. Continue valsartan hydrochlorothiazide Malignant carcinoid tumor of stomach (CMS/HCC) (HCC) (C7A.092) Assessment & Plan: Continue per Oncology Dr. Martinez and Gastroenterology as instructed. Still under very close observation with regular imaging in interventions. Pernicious anemia (D51.0) Assessment & Plan: Continue B12 *This note is dictated using [employer] voice recognition software, variances in spelling and vocabulary are possible and unintentional.* Elizabeth Borrego PA-C RTISING JOB TITLES documented in this encounter Miscellaneous Notes * Assessment & Plan Note - Elizabeth Borrego PA - 11/09/2021 6:33 PM ADVERTISING JOB TITLES Associated Problem(s): Mixed hyperlipidemia Encouraged patient to follow fat/low chol diet like the Mediterranean diet. Increase good fats inthe diet. Increase exercise. Monitor labs as needed. Continue pravastatin RTISING JOB TITLES * Assessment & Plan Note - Elizabeth Borrego PA - 11/09/2021 6:33 PM ADVERTISING JOB TITLES Associated Problem(s): BMI 26.0-26.9,adult (Resolved 10/29/2022) Weight/BMI is in healthy range. Continue healthy lifestyle to maintain. RTISING JOB TITLES * Assessment & Plan Note - Elizabeth Borrego PA - 11/09/2021 6:32 PM ADVERTISING JOB TITLES Associated Problem(s): Moderate episode of recurrent major depressive disorder (HCC) Stable with Lexapro and Wellbutrin RTISING JOB TITLES * Assessment & Plan Note - Elizabeth Borrego PA - 11/09/2021 6:32 PM ADVERTISING JOB TITLES Associated Problem(s): Breast cancer screening by mammogram Has mammogram order. Encouraged to schedule. RTISING JOB TITLES * Assessment & Plan Note - Elizabeth Borrego PA - 11/09/2021 6:32 PM ADVERTISING JOB TITLES Associated Problem(s): Annual physical exam Encouraged healthy lifestyle, good nutrition and exercise. Encouraged Calcium and Vitamin D and weight bearing exercise for bone health. Reviewed immunizations Reviewed age appropirate screenings. RTISING JOB TITLES * Assessment & Plan Note - Elizabeth Borrego PA - 11/09/2021 6:32 PM ADVERTISING JOB TITLES Associated Problem(s): HTN (hypertension), benign Bp is stable/in acceptable range for any co-morbidities. Encouraged to limit sodium intake and exercise for weight control. Continue valsartan hydrochlorothiazide RTISING JOB TITLES * Assessment & Plan Note - Elizabeth Borrego PA - 11/09/2021 6:32 PM ADVERTISING JOB TITLES Associated Problem(s): Pernicious anemia Continue B12 RTISING JOB TITLES * Assessment & Plan Note - Elizabeth Borrego PA - 11/09/2021 6:31 PM ADVERTISING JOB TITLES Associated Problem(s): Malignant carcinoid tumor of stomach (HCC) Continue per Oncology Dr. Martinez and Gastroenterology as instructed. Still under very close observation with regular imaging in interventions. RTISING JOB TITLES RTISING JOB TITLES documented in this encounter Plan of Treatment Not on file documented as of this encounter Visit Diagnoses Diagnosis Annual physical exam- Primary Routine general medical examination at a health care facility Mixed hyperlipidemia BMI 26.0-26.9,adult Moderate episode of recurrent major depressive disorder (HCC) Breast cancer screening by mammogram HTN (hypertension), benign Essential hypertension, benign Malignant carcinoid tumor of stomach (HCC) Malignant carcinoid tumor of the stomach Pernicious anemia documented in this encounter Discontinued Medications Medication Sig Discontinue Reason Start Date End Da te octreotide LAR (SandoSTATIN LAR) 20 mg suspension,extended rel reconIndications:carci noid tumor on pancreas Inject 10 mg into the muscle as instructed every 28 (twenty-eight) days Pt unsure of dosage Therapy completed 10/28/2021 documented as of this encounter Care Teams Box Stacker Relationship Specialty Start Date End Date Elizabeth Borrego PA [address] [facility] [address] [place] [address] PCP - General Internal Medicine 03/25/20 09/27/23 Luann Lawrence NP Nurse Practitioner Nurse Practitioner 01/06/19 Adarsh Tuttle MD [address] [facility] [address] [place] [address] Consulting Physician Gastroenterology 02/22/19 Sebastien Martinez DO [address] [place] [address] Medical Oncologist/Logistics Administrator Hematology and Oncology 02/22/19 Guru Winters DO [address] [place] [address] Consulting Physician Gastroenterology 02/22/19 [place] [address] [place] [address] Surgeon Surgical Oncology 09/07/19 Marina Rosales MD 1095 [facility] 500 [place] [address] Consulting Physician General Surgery 03/24/21 documented as of this encounter
--- OUTSIDE RECORDS SUMMARY | 2024-10-04 03:01 | XMS_ITS | Encounter Summary ---
Author Organization [facility] Address [address] [place] [address] Phone Care Team Providers Care Rn Float Name Role Phone Luann Lawrence ANUP Unavailable Adarsh Tuttle MD Unavailable [phone] Sebastien Martinez DO Unavailable [phone] Guru Winters DO Unavailable [phone] Gato Abrams MD Unavailable [phone] Elizabeth Borrego Primary Care Provider [phone] Marina Rosales MD Unavailable [phone] Encounter Details Date Type Department Care Team (Late st Contact Info) Description 10/28/2021 Orders Only [facility] Physicians [facility] Oncology [address] [facility] [address] [place] [address] Sebastien Martinez DO [address] [facility] [address] [place] [address] Malignant carcinoid tumor of stomach (CMS/HCC) [...] on file 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:22 AM 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 TOOL AND DIE Gender Identity Female 06/07/2020 8:39 AM CDT Sexual Orientation Not on file 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 Not on file Not on file documented as of this encounter Plan of Treatment Not on file documented as of this encounter Visit Diagnoses Diagnosis Malignant carcinoid tumor of stomach (HCC)- Primary Malignant carcinoid tumor of the stomach documented in this encounter Care Teams Rn Float Relationship Specialty Start Date End Date Elizabeth Borrego PA 10[address] [facility] 500 [place] [address] PCP - General Internal Medicine 03/25/20 09/27/23 Luann Lawrence NP Nurse Practitioner Nurse Practitioner 01/06/19 Adarsh Tuttle MD [address] [facility] [address] [place] [address] Consulting Physician Gastroenterology 02/22/19 Sebastien Martinez DO [address] [place] [id number] Medical Oncologist/Surgical Scrub Tech Hematology and Oncology 02/22/19 Guru Winters DO [address] [place] [address] Consulting Physician Gastroenterology 02/22/19 Gato Abrams MD [address] [place] [address] [address] [place] [address] Surgeon Surgical Oncology 09/07/19 Marina Rosales MD 10[address] [facility] [address] [place], [place] [address] Consulting Physician General Surgery 03/24/21 documented as of this encounter
--- OUTSIDE RECORDS SUMMARY | 2024-10-04 03:01 | XMS_ITS | Encounter Summary ---
Author Organization [facility] Address [address] [place] [address] Phone Care Team Providers Care Supervisory Cbp Officer Name Role Phone Luann Lawrence ANUP Unavailable [phone] Adarsh Tuttle MD Unavailable [phone] Sebastien Martinez DO Unavailable [phone] Guru Winters DO Unavailable [phone] Gato Abrams MD Unavailable [phone] Elizabeth Borrego Primary Care Provider [phone] Marina Rosales MD Unavailable [phone] Encounter Details Date Type Department Care Team (Late st Contact Info) Description 09/24/2021 Orders Only [facility] Physicians [facility] Oncology 1418 [facility] [address] [place] [address] Sebastien Martinez DO 1418 [facility] [place] [address] Malignant carcinoid tumor of stomach (CMS/HCC) [...] on file 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:22 AM PASTE UP ARTIST Gender Identity Female 06/07/2020 8:39 AM CDT Sexual Orientation Not on file 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 Not on file Not on mikie e documented as of this encounter Plan of Treatment Not on file documented as of this encounter Visit Diagnoses Diagnosis Malignant carcinoid tumor of stomach (HCC)- Primary Malignant carcinoid tumor of the stomach documented in this encounter Care Teams Supervisory Cbp Officer Relationship Specialty Start Date End Date Elizabeth Borrego PA [address] [facility] 500 [place] [address] PCP - General Internal Medicine 03/25/20 09/27/23 uLann Lawrence NP Nurse Practitioner Nurse Practitioner 01/06/19 Adarsh Tuttle MD [address] [facility] 210 [place] [address] Consulting Physician Gastroenterology 02/22/19 Sebastien Martinez DO [address] [place] [address] Medical Oncologist/Assembler Cards And Announcements Hematology and Oncology 02/22/19 Guru Winters DO [address] [place] [address] Consulting Physician Gastroenterology 02/22/19 Gato Abrams MD [address] [place] [address] [address] [place] [address] Surgeon Surgical Oncology 09/07/19 Marina Rosales MD 10[address] [facility] 500 [place], [place] [address] Consulting Physician General Surgery 03/24/21 documented as of this encounter
--- OUTSIDE RECORDS SUMMARY | 2024-10-04 03:01 | XMS_ITS | Encounter Summary ---
Author Organization [facility] Address [address] [place] [address] Care Team Providers Care Bedspread Cutter Name Role Phone Luann Lawrence NP Unavailable [phone] Adarsh Tuttle MD Unavailable [phone] Sebastien Martinez DO Unavailable [phone] Guru Winters DO Unavailable [phone] Gato Abrams MD Unavailable [phone] Elizabeth Borrego Primary Care Provider [phone] Marina Rosales MD Unavailable [phone] Encounter Details Date Type Department Care Team (Late st Contact Info) Description 10/29/2021 9:15 AM [facility] Lab [facility] [place] [facility] [address] [place] [address] Malignant carcinoid tumor of stomach (CMS/HCC) (HCC) [...] on file 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:22 AM BACON DE RINDER Gender Identity Female 06/07/2020 8:39 AM CDT Sexual Orientation Not on file 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 Not on file Not on file documented as of this encounter Plan of Treatment Not on file documented as of this encounter Procedures Procedure Name Priority Date/Time Associated Diagnosis Comments EGFR Routine 10/29/2021 9:24 AM [facility]ER Malignant carcinoid tumor of stomach (CMS/HCC) (HCC) DIFFERENTIAL AUTO STAT 10/29/2021 9:2 4 AM [facility] Malignant carcinoid tumor of stomach (CMS/HCC) (HCC) CHROMOGRANIN A Routine 10/29/2021 9:24 AM [facility] Malignant carcinoid tumor of stomach (CMS/HCC) (HCC) CBC WITH AUTO DIFFERENTIAL STAT 10/29/2021 9:24 AM [facility] Malignant carcinoid tumor of stomach (CMS/HCC) (HCC) GASTRIN Routine 10/29/2021 9:24 AM [facility] Malignant carcinoid tumor of stomach (CMS/HCC) (HCC) COMPREHENSIVE METABOLIC PANEL Routine 10/29/2021 9:24 AM [facility] Malignant carcinoid tumor of stomach (CMS/HCC) (HCC) documented in this encounter Results * eGFR (10/29/2021 9:24 AM [facility] R[facility]ER) eGFR 106 mL/min/1. 73 m2 ANDREA CASTILLO [...] was last reviewed 2021. Testing performed by: [address] [address] Blood 10/29/2021 9:24 AM [facility] R[facility]ER 10/29/2021 9:25 AM [facility] us Sebastien Martinez DO LAB BLOOD ORDERABLES Final R esult ANDREA [address] [facility] Department [place] [address] * Differential, auto (10/29/2021 9:24 AM BACON DE RINDER) Neutrophil abs 2.2 1.7 - 6.5 K/cumm ANDREA Comment:Testing performed by : [address] [address] Lymphocyte abs 1.1 0.8 - 3.3 K/cumm ANDREA Comment:Testing performed by : [address] [address] Monocyte abs 0.2 0.2 - 0.8 K/cumm ANDREA Comment:Testing performed by : [address] [address] Eosinophil abs 0.1 0.0 - 0.5 K/cumm ANDREA Comment:Testing performed by : [address] [address] Basophil abs 0.1 0.0 - 0.1 K/cumm ANDREA Comment:Testing performed by : [address] [address] Neutrophil pct 58.6 % CERTAVO Comment: Interpretive Data Percent cell count reference ranges are not reported, since discordance with absolute values may lead to misinterpretation of CBC data. Current Interpretive Data was last revised on 2018. Testing performed by: [address] [address] Imm gran pct 0.3 % [facility] Comment: Interpretive Data Percent cell count reference ranges are not reported, since discordance with absolute values may lead to misinterpretation of CBC data. Current Interpretive Data was last revised on 2018. Testing performed by: [address] [address] Lymphocyte pct 29.7 % [facility] Comment: Interpretive Data Percent cell count reference ranges are not reported, since discordance with absolute values may lead to misinterpretation of CBC data. Current Interpretive Data was last revised on 2018. Testing performed by: [address] [address] Monocyte pct 6.5 % [facility] Comment: Interpretive Data Percent cell count reference ranges are not reported, since discordance with absolute values may lead to misinterpretation of CBC data. Current Interpretive Data was last revised on 2018. Testing performed by: [address] [address] Eosinophil pct 3.5 % [facility] Comment: Interpretive Data Percent cell count reference ranges are not reported, since discordance with absolute values may lead to misinterpretation of CBC data. Current Interpretive Data was last revised on 2018. Testing performed by: [address] [address] Basophil pct 1.4 % [facility] Comment: Interpretive Data Percent cell count reference ranges are not reported, since discordance with absolute values may lead to misinterpretation of CBC data. Current Interpretive Data was last revised on 2018. Testing performed by: [address] [place]., [address] Blood 10/29/2021 9:24 AM [facility] R[facility]ER 10/29/2021 9:25 AM [facility] Sebastien Martinez DO LAB BLOOD ORDERABLES Final R esult Performing Organization Address [facility] de Phone Number ANDREA [address] [address] * Chromogranin A (10/29/2021 9:24 AM BACON DE RINDER) [facility] Chromogranin A 20 <93 ng/mL MAYITAVO Comment: ADDITIONAL INFORMATION This test was developed and its performance characteristics determined by [facility] in a manner consistent with CLIA requirements. This test has not been cleared or approved by the U.S. Food and Drug Administration. The testing method is a homogeneous time-resolved immunofluorescent assay manufactured by [employer] and performed on the [employer] Kryptor Compact Plus. ? Values obtained with different assay methods or kits may be different and cannot be used interchangeably. ? Test results cannot be interpreted as absolute evidence for the presence or absence of malignant disease. Test Performed by: [place] [address] Bottle Capper: Bjorn Morris M.D. Ph.D.; CLIA# [id number] Testing performed by: [facility], [address] [place] [address]., [address] Blood 10/29/2021 9:24 AM [facility] R[facility]ER 10/29/2021 9:25 AM [facility] Sebastien Martinez DO LAB BLOOD ORDERABLES Final R esult Performing Organization Address [facility] Co de Phone Number ANDREA [address] [place] [address] * Gastrin (10/29/2021 9:24 AM BACON DE RINDER) [facility] Gastrin <10 pg/mL ANDREA CASTILLO Comment: REFERENCE VALUE <100 Reference ranges valid for >= 8 hour fast. Test Performed by: [facility] [address] [place] [address] Bottle Capper: Bjorn Morris M.D. Ph.D.; CLIA# [id number] Testing performed by: [address] [address] Blood 10/29/2021 9:24 AM [facility]ER 10/29/2021 9:25 AM [facility] [place] [facility] Sebastien Martinez DO LAB BLOOD ORDERABLES Final R esult ANDREA 45[address] [facility] Department of Laboratories [place], [place] [id number] * (ABNORMAL) CBC with auto differential (10/29/2021 9:24 AM BACON [facility] RINDER) [facility] WBC 3.7(L) 3.8 - 9.9 K/cumm ANDREA CASTILLO Comment:Testing performed by : [address] [address] Hgb 12.1 11.9 - 15.5 g/dL ANDREA CASTILLO Comment:Testing performed by : [address] [address] Hct 35.9 35.6 - 45.5 % ANDREA CASTILLO Comment:Testing performed by : [address] [address] Plt 239 150 - 400 K/cumm ANDREA CASTILLO Comment:Testing performed by : [address] [address] MPV 9.7 9.1 - 12.3 fL ANDREA CASTILLO Comment:Testing performed by : [address] [address] RBC 4.15 3.90 - 5.20 M/cumm ANDREA CASTILLO Comment:Testing performed by : [facility], [address] [place] [address]., [address] MCV 86.5 81.3 - 96.4 fL ANDREA CASTILLO Comment:Testing performed by : [address] [address] MCH 29.2 27.1 - 33.3 pg ANDREA CASTILLO Comment:Testing performed by : [address] [address] MCHC 33.7 32.3 - 35.7 g/dL ANDREA CASTILLO Comment:Testing performed by : [address] [address] RDW CV 12.0 11.1 - 14.9 % ANDREA CASTILLO Comment:Testing performed by : [address] [address] RDW SD 38.1 35.7 - 48.1 fL ANDREA CASTILLO Comment:Testing performed by : [address] [address] Blood 10/29/2021 9:24 AM [facility] R[facility]ER 10/29/2021 9:25 AM [facility]ER Sebastien Martinez DO LAB BLOOD ORDERABLES Final R esult ANDREA 1321 [facility] Department [place] [address] * (ABNORMAL) Comprehensive metabolic panel (10/29/2021 9:24 AM BACON DE RINDER) Sodium 143 135 - 145 mmol/L ANDREA CASTILLO Comment:Testing performed by : [address] [address] Potassium, pl 3.8 3.3 - 4.9 mmol/L ANDREA CASTILLO Comment:Testing performed by : [address] [address] Chloride 106 97 - 110 mmol/L ANDREA CASTILLO Comment:Testing performed by : [address] [address] CO2 34(H) 22 - 32 mmol/L ANDREA CASTILLO Comment:Testing performed by : [address] [address] Anion gap 3 2 - 15 mmol/L ANDREA Comment:Testing performed by : [address] [address] BUN 16 8 - 25 mg/dL ANDREA Comment:Testing performed by : [address], [place]., [address] Creatinine 0.60 0.60 - 1.10 mg/dL ANDREA Comment:Testing performed by : [address] [address] Glucose 104 70 - 199 mg/dL [facility] Comment: Interpretive Data Fasting glucose >/= [...] was last revised 2017. Testing performed by: [address] [address] Calcium 9.5 8.5 - 10.3 mg/dL ANDREA Comment:Testing performed by : [address] [address] Bilirubin, total 0.5 0.1 - 1.2 mg/dL ANDREA Comment:Testing performed by : [address] [address] Protein, pl 7.2 6.5 - 8.5 g/dL ANDREA Comment:Testing performed by : [address] [address] Albumin 4.4 3.5 - 5.0 g/dL ANDREA Comment:Testing performed by : [address] [address] Alk phos 71 40 - 130 Units/L ANDREA Comment:Testing performed by : [address] [address] ALT 23 7 - 45 Units/L ANDREA CASTILLO Comment:Testing performed by : [facility], [address] [place] [address]., [address] AST 26 10 - 45 Units/L ANDREA Comment:Testing performed by : [facility], [address] [place] [address]., [address] Blood 10/29/2021 9:24 AM [facility] R[facility]ER 10/29/2021 9:25 AM [facility] Sebastien Martinez DO LAB BLOOD ORDERABLES Final R esult ANDREA 45[address] [facility] Department [place] [address] documented in this encounter Visit Diagnoses Diagnosis Malignant carcinoid tumor of stomach (HCC) Malignant carcinoid tumor of the stomach documented in this encounter Orders Appointment Requests Count Last Ordered Date Fi rst Ordered Date ONCBCN LAB APPOINTMENT 1 10/29/2021 documented in this encounter Care Teams Bedspread Cutter Relationship Specialty Start Date End Date Elizabeth Borrego PA 1095 [facility] 500 [place] [address] PCP - General Internal Medicine 03/25/20 09/27/23 Luann Lawrence NP Nurse Practitioner Nurse Practitioner 01/06/19 Adarsh Tuttle MD [address] [facility] 210 [place] [address] Consulting Physician Gastroenterology 02/22/19 Sebastien Martinez DO [address] [place] [address] [address] [place] [address] Medical Oncologist/Travel Med Surg Rn Hematology and Oncology 02/22/19 Guru Winters DO [address] [address] Consulting Physician Gastroenterology 02/22/19 Gato Abrams MD [address] [place] [address] Surgeon Surgical Oncology 09/07/19 Marina Rosales MD [address] [place] [address] [address] [place] [address] Consulting Physician General Surgery 03/24/21 documented as of this encounter
--- OUTSIDE RECORDS SUMMARY | 2024-10-04 03:01 | XMS_ITS | Encounter Summary ---
Author Organization [facility] Address [address] [place] [address] Phone Care Team Providers Care Printing Press Operator Name Role Phone Luann Lawrence ANUP Unavailable [phone] Adarsh Tuttle MD Unavailable [phone] Sebastien Martinez DO Unavailable Guru Winters DO Unavailable [phone] Gato Abrams MD Unavailable [phone] Elizabeth Borrego Primary Care Provider [phone] Marina Rosales MD Unavailable [phone] Encounter Details Date Type Department Care Team (Late st Contact Info) Description 08/27/2021 Orders Only [facility] Physicians [facility] Oncology 14[address] [facility] [address] [place] [address] Sebastien Martinez DO 1418 [facility] [address] [place] [address] Malignant carcinoid tumor of stomach (CMS/HCC) [...] on file 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 Gender Identity Female 06/07/2020 8:39 AM CDT Sexual Orientation Not on file 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 Not on file Not on mikie e documented as of this encounter Plan of Treatment Not on file documented as of this encounter Visit Diagnoses Diagnosis Malignant carcinoid tumor of stomach (HCC)- Primary Malignant carcinoid tumor of the stomach documented in this encounter Care Teams Printing Press Operator Relationship Specialty Start Date End Date Elizabeth Borrego PA 1095 [facility] 500 [place] [address] PCP - General Internal Medicine 03/25/20 09/27/23 Luann Lawrence NP Nurse Practitioner Nurse Practitioner 01/06/19 Adarsh Tuttle MD [address] [facility] 210 [place] [address] Consulting Physician Gastroenterology 02/22/19 Sebastien Martinez DO [address] [place] [address] Medical Oncologist/Blending Kettle Tender Hematology and Oncology 02/22/19 Guru Winters DO [address] [place] [address] Consulting Physician Gastroenterology 02/22/19 Gato Abrams MD [address] [place] [address] [address] [place] [address] Surgeon Surgical Oncology 09/07/19 Marina Rosales MD 1095 [facility] 500 [place], [place] [address] Consulting Physician General Surgery 03/24/21 documented as of this encounter
--- OUTSIDE RECORDS SUMMARY | 2024-10-04 03:01 | XMS_ITS | Encounter Summary ---
Author Organization [facility] Address [address] [place] [address] Phone Care Team Providers Care Automatic Shirring Machine Operator Name Role Phone MelindaLuann oh ANUP Unavailable [phone] Adarsh Tuttle MD Unavailable [phone] Sebastien Martinez DO Unavailable [phone] Guru Winters DO Unavailable [phone] Gato Abrams MD Unavailable [phone] Elizabeth Borrego Primary Care Provider [phone] Marina Rosales MD Unavailable Reason for Visit * Reason Comments Injections * Episode Based Medications (Routine) - Closed Specialty Diagnoses / Procedures Referred By Clemencia mendez Referred To Contact Oncology Diagnoses Malignant carcinoid tumor of stomach (HCC) Procedures [place] OCTREOTIDE INJECTION, DEPOT Sebastien Martinez DO [facility] [address] Phone: tel: fax: [facility] Physicians [facility] Oncology [address] [address] Phone: tel: fax: Referral ID Status Reason Start Date Expiration Date Visits Re quested Visits Authorized [id number] Closed 2022 02/19/2023 1 50 Encounter Details Date Type Department Care Team (Late st Contact Info) Description 08/27/2021 10:15 AM FAMILY AND CONSUMER SCIENCES PROFESSOR Infusion [facility] Physicians [facility] Oncology 1418 [facility] [address] [place] [address] Malignant carcinoid tumor of stomach [...] on file 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:22 AM FAMILY AND CONSUMER SCIENCES PROFESSOR Gender Identity Female 06/07/2020 8:39 AM CDT Sexual Orientation Not on file 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 No complaints. LY AND CONSUMER SCIENCES PROFESSOR documented in this encounter Plan of Treatment [...] 10 mg 10 mg, intramuscular, Once, On Wed08/27/21 at 1030, For 1 dose, Refrigerate. For IM intragluteal administration only- alternate gluteal sites. Shamir.Indications:Malignant carcinoid tumor of stomach (HCC) Given 08/27/2021 10:01 AM FAMILY AND CONSUMER SCIENCES PROFESSOR 10 mg Left Dorsogluteal/Butt ock documented in this encounter Orders Appointment Requests Count Last Ordered Date Fi rst Ordered Date ONCBCN INJECTION APPOINTMENT REQUEST 1 08/18 documented in this encounter Care Teams Automatic Shirring Machine Operator Relationship Specialty Start Date End Date Elizabeth Borrego PA 1095 [facility] [address] [place], [place] [id number] PCP - General Internal Medicine 03/25/20 09/27/23 Luann Lawrence, ANUP Nurse Practitioner Nurse Practitioner 01/06/19 Adarsh Tuttle MD [address] [facility] [place] [address] Consulting Physician Gastroenterology 02/22/19 Sebastien Martinez DO [address] [place] [address] Medical Oncologist/Paper Final Inspector Hematology and Oncology 02/22/19 Guru Winters DO [address] [place] [address] Consulting Physician Gastroenterology 02/22/19 [place] [address] [place] [address] Surgeon Surgical Oncology 09/07/19 Marina Rosales MD 1095 [facility] 500 [place] [address] Consulting Physician General Surgery 03/24/21 documented as of this encounter
--- OUTSIDE RECORDS SUMMARY | 2024-10-04 03:01 | XMS_ITS | Encounter Summary ---
Author Organization [facility] Address [address] [place] [address] Phone Care Team Providers Care Special Events Planner Name Role Phone Luann Lawrence ANUP Unavailable [phone] Adarsh Tuttle MD Unavailable [phone] Sebastien Martinez DO Unavailable Guru Winters DO Unavailable [phone] Gato Abrams MD Unavailable [phone] Elizabeth Borrego Primary Care Provider [phone] Marina Rosales MD Unavailable [phone] Encounter Details Date Type Department Care Team (Late st Contact Info) Description 06/27/2021 Orders Only [facility] Physicians [facility] Oncology 1418 [facility] [address] [place] [address] Sebastien Martinez DO 1418 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 Not on mikie e documented as of this encounter Plan of Treatment Not on file documented as of this encounter Visit Diagnoses Diagnosis Malignant carcinoid tumor of stomach (HCC)- Primary Malignant carcinoid tumor of the stomach documented in this encounter Care Teams Special Events Planner Relationship Specialty Start Date End Date Elizabeth Borrego PA 1095 [facility] 500 [place] [address] PCP - General Internal Medicine 03/25/20 09/27/23 Luann Lawrence NP Nurse Practitioner Nurse Practitioner 01/06/19 Adarsh Tuttle MD [address] [facility] 210 [place] [address] Consulting Physician Gastroenterology 02/22/19 Sebastien Martinez DO [address] [place] [address] Medical Oncologist/Account Associate Hematology and Oncology 02/22/19 Guru Winters DO [address] [place] [address] Consulting Physician Gastroenterology 02/22/19 Gato Abrams MD [address] [place] [address] 180 [place] [address] Surgeon Surgical Oncology 09/07/19 Marina Rosales MD 1095 [facility] 500 [place], [place] [id number] Consulting Physician General Surgery 03/24/21 documented as of this encounter
--- OUTSIDE RECORDS SUMMARY | 2024-10-04 03:01 | XMS_ITS | Encounter Summary ---
Author Organization [facility] Address [address] [place] [address] Phone Care Team Providers Care Chemical Operations Specialist Name Role Phone MelindaLuann oh Aditya HEBERT Unavailable [phone] Adarsh Tuttle MD Unavailable [phone] Sebastien Martinez DO Unavailable [phone] Guru Winters DO Unavailable [phone] Gato Abrams MD Unavailable [phone] Elizabeth Borrego Primary Care Provider [phone] Marina Rosales MD Unavailable [phone] Reason for Visit * Episode Based Medications (Routine) - Closed Specialty Diagnoses / Procedures Referred By Contjimmy t Referred To Contact Oncology Diagnoses Malignant carcinoid tumor of stomach (HCC) Procedures [place] OCTREOTIDE INJECTION, DEPOT Sebastien Martinez, [facility] [address] Phone: tel: fax: [facility] Oncology [address] [address] Phone: tel: fax: Referral ID Status Reason Start Date Expiration Date Visits Re quested Visits Authorized [id number] Closed 2022 02/19/2023 1 50 Encounter Details Date Type Department Care Team (Late st Contact Info) Description 11/26/2021 8:15 AM SPLUNK CONSULTANT Infusion [facility] Oncology [address] [facility] [address] [place] [address] Malignant carcinoid tumor of stomach [...] on file 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:22 AM SPLUNK CONSULTANT Gender Identity Female 06/07/2020 8:39 AM CDT Sexual Orientation Not on file 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 Not on file Not on file documented as of this encounter Last Filed Vital Signs Vital Sign Reading Time Taken Comments Blood Pressure 108/67 11/26/2021 8:20 AM SPLUNK CONSULTANT Pulse 60 11/26/2021 8:20 AM SPLUNK CONSULTANT Temperature 36.4 ??C (97.5 ??F) 11/26/2021 8:20 AM CS T Respiratory Rate 18 11/26/2021 8:20 AM SPLUNK CONSULTANT Oxygen Saturation 97% 11/26/2021 8:20 AM SPLUNK CONSULTANT Inhaled Oxygen Concentration - - Weight 72 kg (158 lb 12.8 oz) 11/26/2021 8:20 AM SPLUNK CONSULTANT Height - - Body Mass Index 27.26 10/29/2021 9:36 AM SPLUNK CONSULTANT documented in this encounter Nursing Notes * Sunshine Richardson RN - 11/26/2021 8:15 AM CST Oncology Nursing Note [facility] ONCOL[facility]Y Fabiola Gibson is a 56 y.o. female who presents for the following injection: octreotide Nursing Assessment WDL Additional Notes: BP: 108/67 Temp: 36.4 ??C (97.5 ??F) Pulse: 60 Resp: 18 SpO2: 97 % Weight: 72 kg (158 lb 12.8 oz) Patient: met treatment parameters Fabiola Gibson tolerated injection well Additional Notes: Right buttocks Discharge Plan Discharge instructions given to patient. Discharge Mode: Ambulatory Accompanied by: Self Discharged To: Home NK CONSULTANT documented in this encounter Plan of Treatment [...] 10 mg 10 mg, intramuscular, Once, On Wed11/26/21 at 0845, For 1 dose, Refrigerate. For IM intragluteal administration only- alternate gluteal sites. Shamir.Indications:Malignant carcinoid tumor of stomach (HCC) Given 11/26/2021 8:24 AM SPLUNK CONSULTANT 10 mg Right Dorsogluteal/Butt ock documented in this encounter Orders Appointment Requests Count Last Ordered Date Fi rst Ordered Date ONCBCN INJECTION APPOINTMENT REQUEST 1 06/2022 documented in this encounter Care Teams Chemical Operations Specialist Relationship Specialty Start Date End Date Elizabeth Borrego PA [address] [facility] [address] [place] [address] PCP - General Internal Medicine 03/25/20 09/27/23 Luann Lawrence NP Nurse Practitioner Nurse Practitioner 01/06/19 Adarsh Tuttle MD [address] [facility] [address] [place] [address] Consulting Physician Gastroenterology 02/22/19 Sebastien Mratinez DO [facility] [address] Medical Oncologist/Hand Sizer Hematology and Oncology 02/22/19 Guru Winters DO [facility] [address] Consulting Physician Gastroenterology 02/22/19 Gato Abrams MD [address] [place] [address] Surgeon Surgical Oncology 09/07/19 Marina Rosales MD [address] [facility] [address] [place], [place] [address] Consulting Physician General Surgery 03/24/21 documented as of this encounter
--- OUTSIDE RECORDS SUMMARY | 2024-10-04 03:01 | XMS_ITS | Encounter Summary ---
Author Organization [facility] Address [address] [place] [address] Care Team Providers Care Buffing Turner And Counter Name Role Phone Luann Lawrence NP Unavailable [phone] Adarsh Tuttle MD Unavailable [phone] Sebastien Martinez DO Unavailable [phone] Guru Winters DO Unavailable [phone] Gato Abrams MD Unavailable [phone] Elizabeth Borrego Primary Care Provider [phone] Marina Rosales MD Unavailable [phone] Encounter Details Date Type Department Care Team (Late st Contact Info) Description 09/24/2021 9:45 AM CHECK TOTALER Lab [facility] [address] [place] [address] Malignant carcinoid tumor of stomach (CMS/HCC) (HCC) [...] on file 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:22 AM CHECK TOTALER Gender Identity Female 06/07/2020 8:39 AM CDT Sexual Orientation Not on file 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 Not on mikie e documented as of this encounter Plan of Treatment Not on file documented as of this encounter Procedures Procedure Name Priority Date/Time Associated Diagnosis Comments EGFR Routine 09/24/2021 10:00 AM CHECK TOTALER Malignant carcinoid tumor of stomach (CMS/HCC) (HCC) DIFFERENTIAL AUTO STAT 09/24/2021 10: 00 AM CHECK TOTALER Malignant carcinoid tumor of stomach (CMS/HCC) (HCC) CHROMOGRANIN A Routine 09/24/2021 10:00 AM CHECK TOTALER Malignant carcinoid tumor of stomach (CMS/HCC) (HCC) CBC WITH AUTO DIFFERENTIAL STAT 09/24/2021 10:00 AM CHECK TOTALER Malignant carcinoid tumor of stomach (CMS/HCC) (HCC) GASTRIN Routine 09/24/2021 10:00 AM CHECK TOTALER Malignant carcinoid tumor of stomach (CMS/HCC) (HCC) COMPREHENSIVE METABOLIC PANEL Routine 09/24/2021 10:00 AM CHECK TOTALER Malignant carcinoid tumor of stomach (CMS/HCC) (HCC) documented in this encounter Results * eGFR (09/24/2021 10:00 AM CHECK TOTALER) eGFR 98 mL/min/1.7 3 m2 ANDREA Comment: Interpretive Data Reference Interval [...] was last reviewed 2020 Testing performed by: [address] [address] Blood 09/24/2021 10:0 0 AM CHECK TOTALER 09/24/2021 10:02 AM CHECK TOTALER us Sebastien Martinez DO LAB BLOOD ORDERABLES Final R esult [facility] [address] [facility] [place] [address] * Differential, auto (09/24/2021 10:00 AM CHECK TOTALER) Neutrophil abs 2.9 1.7 - 6.5 K/cumm ANDREA Comment:Testing performed by : [address] [address] Lymphocyte abs 0.9 0.8 - 3.3 K/cumm ANDREA Comment:Testing performed by : [address] [address] Monocyte abs 0.3 0.2 - 0.8 K/cumm ANDREA Comment:Testing performed by : [address] [address] Eosinophil abs 0.1 0.0 - 0.5 K/cumm ANDREA Comment:Testing performed by : [address] [address] Basophil abs 0.1 0.0 - 0.1 K/cumm ANDREA Comment:Testing performed by : [address] [address] Neutrophil pct 67.6 % [facility] Comment: Interpretive Data Percent cell count reference ranges are not reported, since discordance with absolute values may lead to misinterpretation of CBC data. Current Interpretive Data was last revised on 2018. Testing performed by: [address] [address] Imm gran pct 0.5 % [facility] Comment: Interpretive Data Percent cell count reference ranges are not reported, since discordance with absolute values may lead to misinterpretation of CBC data. Current Interpretive Data was last revised on 2018. Testing performed by: [address] [address] Lymphocyte pct 20.3 % [facility] Comment: Interpretive Data Percent cell count reference ranges are not reported, since discordance with absolute values may lead to misinterpretation of CBC data. Current Interpretive Data was last revised on 2018. Testing performed by: [address] [address] Monocyte pct 7.2 % [facility] Comment: Interpretive Data Percent cell count reference ranges are not reported, since discordance with absolute values may lead to misinterpretation of CBC data. Current Interpretive Data was last revised on 2018. Testing performed by: [address] [address] Eosinophil pct 3.2 % [facility] Comment: Interpretive Data Percent cell count reference ranges are not reported, since discordance with absolute values may lead to misinterpretation of CBC data. Current Interpretive Data was last revised on 2018. Testing performed by: [address] [address] Basophil pct 1.2 % [facility] Comment: Interpretive Data Percent cell count reference ranges are not reported, since discordance with absolute values may lead to misinterpretation of CBC data. Current Interpretive Data was last revised on 2018. Testing performed by: [address] [address] Blood 09/24/2021 10:0 0 AM CHECK TOTALER 09/24/2021 10:02 AM CHECK TOTALER Sebastien Martinez LAB BLOOD ORDERABLES Final R esult Performing Organization Address [facility] de Phone Number [facility] [place] [place] [address] * Chromogranin A (09/24/2021 10:00 AM CHECK TOTALER) Chromogranin A 22 <93 ng/mL [facility] Comment: ADDITIONAL INFORMATION This test was developed and its performance characteristics determined by [facility] in a manner consistent with CLIA requirements. This test has not been cleared or approved by the U.S. Food and Drug Administration. The testing method is a homogeneous time-resolved immunofluorescent assay manufactured by [employer] and performed on the [employer] Kryptor Compact Plus. ? Values obtained with different assay methods or kits may be different and cannot be used interchangeably. ? Test results cannot be interpreted as absolute evidence for the presence or absence of malignant disease. Test Performed by: [facility] [address] [place] [address] Superintendent Of Generation: Bjorn Morris M.D. Ph.D.; CLIA# [id number] Testing performed by: [facility], [address] [place] [address], [address] Blood 09/24/2021 10:0 0 AM CHECK TOTALER 09/24/2021 10:02 AM CHECK TOTALER Sebastien Martinez DO LAB BLOOD ORDERABLES Final R esult Performing Organization Address City/[facility]/ZIP Co de Phone Number ANDREA [address] [place] [address] * Gastrin (09/24/2021 10:00 AM CHECK TOTALER) Gastrin <10 pg/mL [facility] Comment: REFERENCE VALUE <100 Reference ranges valid for >= 8 hour fast. Test Performed by: [facility] [address] [place] [address] Superintendent Of Generation: Bjorn Morris M.D. Ph.D.; CLIA# [id number] Testing performed by: [address] [address] Blood 09/24/2021 10:0 0 AM CHECK TOTALER 09/24/2021 10:02 AM CHECK TOTALER Sebastien Martinez DO LAB BLOOD ORDERABLES Final R esult ANDRE[facility] [address] [facility] [place] [address] * CBC with auto differential (09/24/2021 10:00 AM CHECK TOTALER) WBC 4.3 3.8 - 9.9 K/cumm [facility] [place] Comment:Testing performed by : [address] [address] Hgb 12.5 11.9 - 15.5 g/dL [facility] [place] Comment:Testing performed by : [address] [address] Hct 37.4 35.6 - 45.5 % [facility] [place] Comment:Testing performed by : [address] [address] Plt 258 150 - 400 K/cumm [facility] [place] Comment:Testing performed by : [address] [address] MPV 9.5 9.1 - 12.3 fL [facility] [place] Comment:Testing performed by : [address] [address] RBC 4.33 3.90 - 5.20 M/cumm [facility] [place] Comment:Testing performed by : [address] [place]., [address] MCV 86.4 81.3 - 96.4 fL [facility] [place] Comment:Testing performed by : [address] [address] MCH 28.9 27.1 - 33.3 pg [facility] [place] Comment:Testing performed by : [address] [address] MCHC 33.4 32.3 - 35.7 g/dL [facility] [place] Comment:Testing performed by : [address] [address] RDW CV 12.1 11.1 - 14.9 % [facility] [place] Comment:Testing performed by : [address] [address] RDW SD 38.3 35.7 - 48.1 fL [facility] [place] Comment:Testing performed by : [address] [address] Blood 09/24/2021 10:0 0 AM CHECK TOTALER 09/24/2021 10:02 AM CHECK TOTALER us Sebastien Martinez DO LAB BLOOD ORDERABLES Final R esult [facility] [place] [address] [facility] [place] [address] * Comprehensive metabolic panel (09/24/2021 10:00 AM CHECK TOTALER) Sodium 138 135 - 145 mmol/L [facility] [place] Comment:Testing performed by : [address] [address] Potassium, pl 4.8 3.3 - 4.9 mmol/L [facility] [place] Comment:Testing performed by : [address] [address] Chloride 103 97 - 110 mmol/L [facility] [place] Comment:Testing performed by : [address] [address] CO2 28 22 - 32 mmol/L [facility] [place] Comment:Testing performed by : [address] [address] Anion gap 7 2 - 15 mmol/L [facility] Comment:Testing performed by : [address] [address] BUN 19 8 - 25 mg/dL [facility] Comment:Testing performed by : [address] [address] Creatinine 0.70 0.60 - 1.10 mg/dL [facility] Comment:Testing performed by : [address] [address] Glucose 114 70 - 199 mg/dL [facility] Comment: Interpretive Data Fasting glucose >/= [...] was last revised 2017. Testing performed by: [address] [address] Calcium 9.4 8.5 - 10.3 mg/dL [facility] Comment:Testing performed by : [address] [address] Bilirubin, total 0.3 0.1 - 1.2 mg/dL [facility] Comment:Testing performed by : [address] [address] Protein, pl 7.7 6.5 - 8.5 g/dL [facility] Comment:Testing performed by : [address] [address] Albumin 4.5 3.5 - 5.0 g/dL [facility] Comment:Testing performed by : [address] [address] Alk phos 83 40 - 130 Units/L [facility] Comment:Testing performed by : [address] [address] ALT 26 7 - 45 Units/L [facility] Comment:Testing performed by : [facility], [address] [place] [address]., [address] AST 28 10 - 45 Units/L [facility]REA Comment:Testing performed by : [facility], [address] [place] [address]., [address] Blood 09/24/2021 10:0 0 AM CHECK TOTALER 09/24/2021 10:02 AM CHECK TOTALER Sebastien Martinez DO LAB BLOOD ORDERABLES Final R esult [facility] [address] [facility] [place] [address] documented in this encounter Visit Diagnoses Diagnosis Malignant carcinoid tumor of stomach (HCC) Malignant carcinoid tumor of the stomach documented in this encounter Orders Appointment Requests Count Last Ordered Date Fi rst Ordered Date ONCBCN LAB APPOINTMENT 1 09/24/2021 documented in this encounter Care Teams Buffing Turner And Counter Relationship Specialty Start Date End Date Elizabeth Borrego PA [address] [facility] [address] [place] [address] PCP - General Internal Medicine 03/25/20 09/27/23 Luann Lawrence NP Nurse Practitioner Nurse Practitioner 01/06/19 Adarsh Tuttle MD [address] [facility] [address] [place] [address] Consulting Physician Gastroenterology 02/22/19 Sebastien Martinez DO [address] [place] [address] Medical Oncologist/Quality Specialist Hematology and Oncology 02/22/19 Guru Winters DO [address] [place] [address] Consulting Physician Gastroenterology 02/22/19 Gato Abrams MD [address] [place] [address] Surgeon Surgical Oncology 09/07/19 Marina Rosales MD [address] [place] [address] [address] [place], [place] [id number] Consulting Physician General Surgery 03/24/21 documented as of this encounter
--- OUTSIDE RECORDS SUMMARY | 2024-10-04 03:01 | XMS_ITS | Encounter Summary ---
Author Organization [facility] Address [address] [place] [address] Phone Care Team Providers Care Garbage Collector Driver Name Role Phone Luann Lawrence ANUP Unavailable [phone] Adarsh Tuttle MD Unavailable Sebastien Martinez DO Unavailable [phone] Guru Winters DO Unavailable Gato Abrams MD Unavailable [phone] Elizabeth Borrego Primary Care Provider [phone] Marina Rosales MD Unavailable [phone] Encounter Details Date Type Department Care Team (Late st Contact Info) Description 07/24/2021 Orders Only [facility] Oncology [address] [facility] [address] [place] [address] Sebastien Martinez DO [address] [facility] [address] [place] [address] Malignant carcinoid tumor of stomach (CMS/HCC) [...] on file 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 Gender Identity Female 06/07/2020 8:39 AM CDT Sexual Orientation Not on file 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 Not on file Not on mikie e documented as of this encounter Plan of Treatment Not on file documented as of this encounter Visit Diagnoses Diagnosis Malignant carcinoid tumor of stomach (HCC)- Primary Malignant carcinoid tumor of the stomach documented in this encounter Care Teams Garbage Collector Driver Relationship Specialty Start Date End Date Elizabeth Borrego PA [address] [facility] 500 [place] [address] PCP - General Internal Medicine 03/25/20 09/27/23 Luann Lawrence NP Nurse Practitioner Nurse Practitioner 01/06/19 Adarsh Tuttle MD [address] [facility] [address] [place] [address] Consulting Physician Gastroenterology 02/22/19 Sebastien Martinez DO [address] [place] [address] Medical Oncologist/Engine House Helper Hematology and Oncology 02/22/19 Guru Winters DO [address] [place] [address] Consulting Physician Gastroenterology 02/22/19 Gato Abrams MD [address] [place] [address] [address] [place] [address] Surgeon Surgical Oncology 09/07/19 Marina Rosales MD [address] [facility] 500 [place], [place] [id number] Consulting Physician General Surgery 03/24/21 documented as of this encounter
--- OUTSIDE RECORDS SUMMARY | 2024-10-04 03:01 | XMS_ITS | Encounter Summary ---
Author Organization [facility] Address [address] [facility] [address] [place] [address] Care Team Providers Care Battery Plate Assembler Name Role Phone Melinda Luann Aditya HEBERT Unavailable [phone] Adarsh Tuttle MD Unavailable [phone] Sebastien Martinez DO Unavailable [phone] Guru Winters DO Unavailable [phone] Gato Abrams MD Unavailable [phone] Elizabeth Borrego Primary Care Provider [phone] Marina Rosales MD Unavailable [phone] Encounter Details Date Type Department Care Team (Late st Contact Info) Description 11/14/2021 Orders Only [facility] Family Medicine [address] [place] [address] Elizabeth Borrego PA [address] [facility] [address] [place] [address] Mixed hyperlipidemia (Primary Dx) Social History Tobacco Use Types [...] on file 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 Gender Identity Female 06/07/2020 8:39 AM CDT Sexual Orientation Not on file 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 Not on file Not on file documented as of this encounter Plan of Treatment Scheduled Orders Name Type Priority Associated Diagnoses Orde r Schedule Lipid panel Lab Routine Mixed hyperlipidemia Expected: 11/14/2021, Expires: 11/14/2022 Comprehensive metabolic panel Lab Routine Mixed hyperlipidemia Expected: 11/14/2021, Expires: 11/14/2022 documented as of this encounter Visit Diagnoses Diagnosis Mixed hyperlipidemia- Primary documented in this encounter Care Teams Battery Plate Assembler Relationship Specialty Start Date End Date Elizabeth Borrego PA [address] [facility] [address] [place], [place] [id number] PCP - General Internal Medicine 03/25/20 09/27/23 Luann Lawrence NP Nurse Practitioner Nurse Practitioner 01/06/19 Adarsh Tuttle MD [address] [facility] [address] [place] [address] Consulting Physician Gastroenterology 02/22/19 Sebastien Martinez DO [address] [place] [id number] Medical Oncologist/Construction Assistant Hematology and Oncology 02/22/19 Guru Winters DO [address] [place] [address] Consulting Physician Gastroenterology 02/22/19 Gato Abrams MD [address] [place] [address] Surgeon Surgical Oncology 09/07/19 Marina Rosales MD [address] [place] [address] 500 [place] [address] Consulting Physician General Surgery 03/24/21 documented as of this encounter
--- OUTSIDE RECORDS SUMMARY | 2024-10-04 03:01 | XMS_ITS | Encounter Summary ---
Author Organization [facility] Healthcare Address [address] [place] [address] Care Team Providers Care Lumpia Wrapper Maker Name Role Phone Luann Lawrence NP Unavailable [phone] Adarsh Tuttle MD Unavailable [phone] Sebastien Martinez DO Unavailable [phone] Guru Winters DO Unavailable [phone] Gato Abrams MD Unavailable [phone] Elizabeth Borrego Primary Care Provider [phone] Marina Rosales MD Unavailable [phone] Encounter Details Date Type Department Care Team (Late st Contact Info) Description 06/27/2021 8:[address] 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 file Not on mikie e documented as of this encounter Plan of Treatment Not on file documented as of this encounter Procedures Procedure Name Priority Date/Time Associated Diagnosis Comments EGFR Routine 06/27/2021 8:46 AM CDT Malignant carcinoid tumor of stomach (CMS/HCC) (HCC) DIFFERENTIAL AUTO STAT 06/27/2021 8:4 6 AM CDT Malignant carcinoid tumor of stomach (CMS/HCC) (HCC) CHROMOGRANIN A Routine 06/27/2021 8:46 AM CDT Malignant carcinoid tumor of stomach (CMS/HCC) (HCC) CBC WITH AUTO DIFFERENTIAL STAT 06/27/2021 8:46 AM CDT Malignant carcinoid tumor of stomach (CMS/HCC) (HCC) GASTRIN Routine 06/27/2021 8:46 AM CDT Malignant carcinoid tumor of stomach (CMS/HCC) (HCC) COMPREHENSIVE METABOLIC PANEL Routine 06/27/2021 8:46 AM CDT Malignant carcinoid tumor of stomach (CMS/HCC) (HCC) documented in this encounter Results * eGFR (06/27/2021 8:46 AM CDT) eGFR 103 mL/min/1.7 3 m2 [...] was last reviewed 2020 Testing performed by: [address] [address] Blood 06/27/2021 8:46 AM CDT 06/27/2021 8:49 AM CDT us Sebastien Martinez DO LAB BLOOD ORDERABLES Final R esult ANDREA [address] [facility] [place] [address] * Differential, auto (06/27/2021 8:46 AM CDT) Neutrophil abs 2.0 1.7 - 6.5 K/cumm ANDREA Comment:Testing performed by : [address] [address] Lymphocyte abs 1.0 0.8 - 3.3 K/cumm ANDREA Comment:Testing performed by : [address] [address] Monocyte abs 0.3 0.2 - 0.8 K/cumm ANDREA Comment:Testing performed by : [address] [address] Eosinophil abs 0.1 0.0 - 0.5 K/cumm ANDREA Comment:Testing performed by : [address] [address] Basophil abs 0.1 0.0 - 0.1 K/cumm ANDREA Comment:Testing performed by : [address] [address] Neutrophil pct 58.3 % [facility] Comment: Interpretive Data Percent cell count reference ranges are not reported, since discordance with absolute values may lead to misinterpretation of CBC data. Current Interpretive Data was last revised on 2018. Testing performed by: [address] [address] Imm gran pct 0.3 % [facility] Comment: Interpretive Data Percent cell count reference ranges are not reported, since discordance with absolute values may lead to misinterpretation of CBC data. Current Interpretive Data was last revised on 2018. Testing performed by: [address] [address] Lymphocyte pct 28.4 % [facility] Comment: Interpretive Data Percent cell count reference ranges are not reported, since discordance with absolute values may lead to misinterpretation of CBC data. Current Interpretive Data was last revised on 2018. Testing performed by: [address] [address] Monocyte pct 7.5 % [facility] Comment: Interpretive Data Percent cell count reference ranges are not reported, since discordance with absolute values may lead to misinterpretation of CBC data. Current Interpretive Data was last revised on 2018. Testing performed by: [address] [address] Eosinophil pct 4.1 % [facility] Comment: Interpretive Data Percent cell count reference ranges are not reported, since discordance with absolute values may lead to misinterpretation of CBC data. Current Interpretive Data was last revised on 2018. Testing performed by: [address] [address] Basophil pct 1.4 % [facility] Comment: Interpretive Data Percent cell count reference ranges are not reported, since discordance with absolute values may lead to misinterpretation of CBC data. Current Interpretive Data was last revised on 2018. Testing performed by: [address] [place]., [address] Blood 06/27/2021 8:46 AM CDT 06/27/2021 8:49 AM CDT Sebastien Martinez LAB BLOOD ORDERABLES Final R esult Performing Organization Address [facility] de Phone Number ANDREA [address] [address] * Chromogranin A (06/27/2021 8:46 AM CDT) Chromogranin A <20 <93 ng/mL ANDREA Comment: ADDITIONAL INFORMATION This test was developed and its performance characteristics determined by [facility] in a manner consistent with CLIA requirements. This test has not been cleared or approved by the U.S. Food and Drug Administration. The testing method is a homogeneous time-resolved immunofluorescent assay manufactured by [employer] and performed on the [employer] Kryptor Compact Plus. ? Values obtained with different assay methods or kits may be different and cannot be used interchangeably. ? Test results cannot be interpreted as absolute evidence for the presence or absence of malignant disease. Test Performed by: [address] [address] Manager Housekeeping: Bjorn Morris M.D. Ph.D.; CLIA# [id number] Testing performed by: [facility], [address] [place] [address]., [address] Blood 06/27/2021 8:46 AM CDT 06/27/2021 8:49 AM CDT Sebastien Martinez DO LAB BLOOD ORDERABLES Final R esult Performing Organization Address [facility] Co de Phone Number ANDREA [address] [address] * Gastrin (06/27/2021 8:46 AM CDT) Pathologist [facility] Gastrin <10 pg/mL ANDREA CASTILLO Comment: REFERENCE VALUE <100 Reference ranges valid for >= 8 hour fast. Test Performed by: [facility] [address] [place] [address] Manager Housekeeping: Bjorn Morris M.D. Ph.D.; CLIA# [id number] Testing performed by: [address] [address] Blood 06/27/2021 8:46 AM CDT 06/27/2021 8:49 AM CDT Sebastien Martinez DO LAB BLOOD ORDERABLES Final R esult Performing Organization Address City/State/[facility] Co de Phone Number ANDREA [address] [facility] Department [place] [address] * (ABNORMAL) CBC with auto differential (06/27/2021 8:46 AM CDT) [facility] WBC 3.5(L) 3.8 - 9.9 K/cumm ANDREA CASTILLO Comment:Testing performed by : [address] [address] Hgb 12.0 11.9 - 15.5 g/dL ANDREA CASTILLO Comment:Testing performed by : [address] [address] Hct 35.4(L) 35.6 - 45.5 % ANDREA CASTILLO Comment:Testing performed by : [address] [address] Plt 210 150 - 400 K/cumm ANDREA CASTILLO Comment:Testing performed by : [address] [address] MPV 9.5 9.1 - 12.3 fL ANDREA CASTILLO Comment:Testing performed by : [address] [address] RBC 4.08 3.90 - 5.20 M/cumm ANDREA CASTILLO Comment:Testing performed by : [address] [address] MCV 86.8 81.3 - 96.4 fL ANDREA CASTILLO Comment:Testing performed by : [address] [address] MCH 29.4 27.1 - 33.3 pg ANDREA CASTILLO Comment:Testing performed by : [address] [address] MCHC 33.9 32.3 - 35.7 g/dL ANDREA CASTILLO Comment:Testing performed by : [address] [address] RDW CV 11.9 11.1 - 14.9 % ANDREA CASTILLO Comment:Testing performed by : [address] [address] RDW SD 37.3 35.7 - 48.1 fL ANDREA CASTILLO Comment:Testing performed by : [address] [address] Blood 06/27/2021 8:46 AM CDT 06/27/2021 8:49 AM CDT Sebastien Martinez DO LAB BLOOD ORDERABLES Final R esult ANDREA [facility] [place] [address] * (ABNORMAL) Comprehensive metabolic panel (06/27/2021 8:46 AM CDT) Sodium 142 135 - 145 mmol/L ANDREA CASTILLO Comment:Testing performed by : [address] [address] Potassium, pl 4.3 3.3 - 4.9 mmol/L ANDREA CASTILLO Comment:Testing performed by : [address] [address] Chloride 105 97 - 110 mmol/L ANDREA CASTILLO Comment:Testing performed by : [address] [address] CO2 34(H) 22 - 32 mmol/L ANDREA Comment:Testing performed by : [address] [address] Anion gap 3 2 - 15 mmol/L ANDREA Comment:Testing performed by : [address], [place]., [address] BUN 19 8 - 25 mg/dL ANDREA Comment:Testing performed by : [address], [place]., [address] Creatinine 0.60 0.60 - 1.10 mg/dL ANDREA Comment:Testing performed by : [address] [address] Glucose 115 70 - 199 mg/dL ANDREA Comment: Interpretive [...] was last revised 2017. Testing performed by: [address] [address] Calcium 9.6 8.5 - 10.3 mg/dL ANDREA Comment:Testing performed by : [address] [address] Bilirubin, total 0.4 0.1 - 1.2 mg/dL [facility]TAVO Comment:Testing performed by : [address] [address] Protein, pl 6.6 6.5 - 8.5 g/dL ANDREA Comment:Testing performed by : [address] [address] Albumin 4.5 3.5 - 5.0 g/dL ANDREA Comment:Testing performed by : [address] [address] Alk phos 71 40 - 130 Units/L CERTAVO CASTILLO Comment:Testing performed by : [facility], [address] [place] [address]., [address] ALT 30 7 - 45 Units/L ANDREA CASTILLO Comment:Testing performed by : [facility], [address] [place] [address]., [address] AST 32 10 - 45 Units/L ANDREA CASTILLO Comment:Testing performed by : [facility], [address] [place] [address]., [address] Blood 06/27/2021 8:46 AM CDT 06/27/2021 8:49 AM CDT Sebastien Martinez DO LAB BLOOD ORDERABLES Final R esult ANDREA CASTILLO [address] [facility] [place] [address] documented in this encounter Visit Diagnoses Diagnosis Malignant carcinoid tumor of stomach (HCC) Malignant carcinoid tumor of the stomach documented in this encounter Orders Appointment Requests Count Last Ordered Date Fi rst Ordered Date ONCBCN LAB APPOINTMENT 1 06/27/2021 documented in this encounter Care Teams Lumpia Wrapper Maker Relationship Specialty Start Date End Date Elizabeth Borrego PA [address] [facility] [address] [place] [address] PCP - General Internal Medicine 03/25/20 09/27/23 Luann Lawrence NP Nurse Practitioner Nurse Practitioner 01/06/19 Adarsh Tuttle MD [address] [facility] [address] [place] [address] Consulting Physician Gastroenterology 02/22/19 Sebastien Martinez DO [address] [facility] [address] [place] [address] Medical Oncologist/Medicaid Plan Compliance Director Hematology and Oncology 02/22/19 Guru Winters DO [address] [address] Consulting Physician Gastroenterology 02/22/19 Gato Abrams MD [facility] [address] Surgeon Surgical Oncology 09/07/19 Marina Rosales MD [address] [facility] [address] [place], [place] [id number] Consulting Physician General Surgery 03/24/21 documented as of this encounter
--- OUTSIDE RECORDS SUMMARY | 2024-10-04 03:01 | XMS_ITS | Encounter Summary ---
Author Organization [facility] Address [address] [facility] [address] [place] [address] Phone Care Team Providers Care Sleeve Maker Name Role Phone Luann Lawrence ANUP Unavailable [phone] Adarsh Tuttle MD Unavailable [phone] Sebastien Martinez DO Unavailable [phone] Guru Winters DO Unavailable [phone] Gato Abrams MD Unavailable Elizabeth Borrego Primary Care Provider [phone] Marina Rosales MD Unavailable [phone] Reason for Visit * Reason Comments Return Patient Encounter Details Date Type Department Care Team (Late st Contact Info) Description 10/06/2021 1:15 PM BANQUET HOUSEPERSON Office Visit [facility] Surgery [address] [facility] 8th [place] [address] [place] [id number] Gato Abrams MD [address] [facility] [id number] [place], [place] [id number] Malignant carcinoid tumor of stomach (CMS/HCC) (HCC) [...] on file 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:22 AM BANQUET HOUSEPERSON Gender Identity Female 06/07/2020 8:39 AM CDT Sexual Orientation Not on file 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 Gato Abrams M.D., F.A.C.S. Chief, Section of Surgical Oncology spring maker [facility] - voice - fax USPS Mailing Address: Overnight Mailing Address: [address] [place] [address] [place] [address] for [facility], [address] [place], [place] [address] [place], [place] [address] FOLLOW-UP VISIT DATE OF VISIT: 10/06/21 REASON FOR VISIT: Ms. Gibson presents today for a visit after a laparoscopic distal gastrectomy withBillroth II gastrojejunostomy on 08/23/2019 for treatment of atrophic gastritis, well-differentiated gastric carcinoid tumors, hyper- gastrin state.. Final pathology of the surgical specimen demonstrated two well- differentiated neuroendocrine tumors (both less than 1 mm). HISTORY OF PRESENT ILLNESS: Since I saw her last, Ms. Gibson has been doing well. She has made a full recovery from COVID in 2019. She denies abdominal pain, nausea or vomiting. Her urine function arenormal; she does have some episodic diarrhea. Her weight has been stable. Her major complaint is some hypoglycemic episodes which have improved by decreasing the dose of octreotide in half. She also reports some loose stools. Otherwise has no complaints. She had her incisional hernia repaired by Dr. Rosales in April, and has recovered well. Her lastEGD was in March, with no new mucosal lesions and a patent and healthy anastomosis. Stable pancreatic head nodule, 7 mm. Ms. Gibson underwent a pancreas-protocol CT scan today, which I ordered and have personally reviewed, demonstrating a stable 6 mm enhancing lesion in the uncinate of the pancreas and no other sites ofrecurrent or metastatic disease. The implications of these imaging findings and significance for Ms. Gibson's diagnosis include further treatment and follow-up recommendations and were discussed with Ms. Gibson. Ms. Gibson underwent recent blood work, which I have personally reviewed. This includes: CBC: Lab Results Component Value Date WBC 4.3 09/24/2021 HGB 12.5 09/24/2021 HCT 37.4 09/24/2021 MCV 86.4 09/24/2021 LABPLAT 258 09/24/2021 BMP: Lab Results Component Value Date GLUCOSE 114 09/24/2021 CALCIUM 9.4 09/24/2021 SODIUM 138 09/24/2021 POTASSIUM 4.8 09/24/2021 CO2 28 09/24/2021 CHLORIDE 103 09/24/2021 BUNSER 19 09/24/2021 CREATININE 0.70 09/24/2021 LFTs: Lab Results Component Value Date ALT 26 09/24/2021 AST 28 09/24/2021 ALKPHOS 83 09/24/2021 BILITOT 0.3 09/24/2021 Albumin Lab Results Component Value Date ALBUMIN 4.5 09/24/2021 The implications of these lab results and significance for Ms. Gibson's diagnosis include further treatment and follow-up recommendations and were discussed with Ms. Gibson. PHYSICAL EXAMINATION: VITAL SIGNS: There were no vitals taken for this visit. GENERAL: Alert and oriented x 3 in no apparent distress. ABDOMEN: Soft, nontender, nondistended with no masses or hernias. No hepatosplenomegaly. No reboundor guarding. Lap sites are well healed. ASSESSMENT: 56 y.o. female who is doing well after distal gastrectomy for atrophic gastritis and gastric carcinoids with no evidence of recurrent or metastatic disease. 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 PLAN: I will plan to see Ms. Gibson back in approximately 6 months for continued follow-up with a repeat CT scan of the abdomen and pelvis with pancreas protocol to monitor her small pancreatic lesion. She should have a repeat endoscopy annually for continued endoscopic surveillance of her stomach for new carcinoid tumors, which can be arranged with Dr. uTttle or Singh. I answered all of Ms. Gibson's questions to her satisfaction. ATTENDING ATTESTATION: Gato Staley M.D., the attending surgeon have seen and examined the patient both with Dr. Arellano and independently. I agree with the history, physical exam, and findings as described in the above note. ATTENDING ATTESTATION: Gato Staley M.D., the attending surgeon have seen and examined the patient both with Dr. Arellano and independently. I agree with the history, physical exam, and findings as described in the above note. My total encounter time on 10/06/2021 was 33 minutes which was spent in the activities documented in the note. This includes time spent prior to the visit and after the visit in direct care of the patient. This time does not include time spent in any separately reportable services. Gato Abrams M.D., F.A.C.S. Chief, Section of Surgical Oncology spring maker CC: Patient Care Team: Elizabeth Borrego PA as PCP - General (Internal Medicine) Luann Lawrence NP as Nurse Practitioner (Nurse Practitioner) Adarsh Tuttle MD as Consulting Physician (Gastroenterology) Sebastien Martinez DO as Medical Oncologist/Field Support Engineer (Hematology and Oncology) Guru Winters DO as Consulting Physician (Gastroenterology) Gato Abrams MD as Surgeon (Surgical Oncology) Marina Rosales MD as Consulting Physician (General Surgery) Safety Lamp Keeper completed by [employer]. Safety Lamp Keeper variances may occur. UET HOUSEPERSON documented in this encounter Plan of Treatment Not on file documented as of this encounter Visit Diagnoses Diagnosis Malignant carcinoid tumor of stomach (HCC)- Primary Malignant carcinoid tumor of the stomach documented in this encounter Care Teams Sleeve Maker Relationship Specialty Start Date End Date Elizabeth Borrego PA [address] [place], [place] [id number] PCP - General Internal Medicine 03/25/20 09/27/23 Luann Lawrence, ANUP Nurse Practitioner Nurse Practitioner 01/06/19 Adarsh Tuttle MD [address] [facility] [address] [place] [address] Consulting Physician Gastroenterology 02/22/19 Sebastien Martinez DO [address] [place] [address] Medical Oncologist/Field Support Engineer Hematology and Oncology 02/22/19 Guru Winters DO [facility] [address] Consulting Physician Gastroenterology 02/22/19 Gato Abrams MD [address] [place] [address] Surgeon Surgical Oncology 09/07/19 Marina Rosales MD [address] [place] [address] Consulting Physician General Surgery 03/24/21 documented as of this encounter
--- OUTSIDE RECORDS SUMMARY | 2024-10-04 03:01 | XMS_ITS | Encounter Summary ---
Author Organization [facility] Address [address] [place] [address] Care Team Providers Care Touch Up Edger Name Role Phone Luann Lawrence NP Unavailable [phone] Adarsh Tuttle MD Unavailable [phone] Sebastien Martinez DO Unavailable [phone] Guru Winters DO Unavailable [phone] Gato Abrams MD Unavailable [phone] Elizabeth Borrego Primary Care Provider [phone] Marina Rosales MD Unavailable [phone] Reason for Referral * Diagnostic Imaging (Routine) - Closed Specialty Diagnoses / Procedures Referred By Contac t Referred To Contact Radiology Diagnoses Malignant carcinoid tumor of stomach (HCC) Procedures CT Abdomen Pelvis W Contrast CT Abdomen Pelvis W WO Contrast Gato Abrams MD Phone: tel: fax: [address] [address] Referral ID Status Reason Start Date Expiration Date Visits Re quested Visits Authorized [id number] Closed 04/04/2021 05/04/2022 1 1 FUEL PELLETIZER Reason for Visit * Diagnostic Imaging (Routine) - Closed Specialty Diagnoses / Procedures Referred By Contac t Referred To Contact Radiology Diagnoses Malignant carcinoid tumor of stomach (HCC) Procedures CT Abdomen Pelvis W Contrast CT Abdomen Pelvis W WO Contrast Gato Abrams MD Phone: tel: fax: [facility] [address] [place] [address] Referral ID Status Reason Start Date Expiration Date Visits Re quested Visits Authorized [id number] Closed 04/04/2021 05/04/2022 1 1 Encounter Details Date Type Department Care Team (Latest Contact Info) Description 10/06/2021 11:34 AM WOOD FUEL PELLETIZER - 10/06/2021 11:59 PM WOOD FUEL PELLETIZER Hospital Encounter [facility] [place] [address] Gato Abrams MD [address] [facility] [place] [id number] [place] [address] Malignant carcinoid tumor of stomach (CMS/HCC) (HCC) [...] on file 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:22 AM WOOD FUEL PELLETIZER Gender Identity Female 06/07/2020 8:39 AM CDT Sexual Orientation Not on file 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 Not on file Not on mikie e documented as of this encounter Medications at Time of Discharge cholecalciferol (VITAMIN D-3) 1,000 unit capsuleIndicatio ns:Vitamin D Deficiency Take 2 capsules (2,000 Units total) by mouth material stress tester before breakfast buPROPion XL (WELLBUTRIN XL) 150 mg 24 hr tabletIndication s:Anxiety with Depression Take 1 tablet (150 mg total) by mouth every morning 90 tablet 3 01/14/2021 2 cyanocobalamin (Vitamin B-12) 1,000 mcg/mL injection Inject 1 mL (1,000 mcg total) into the muscle as instructed every 30 (thirty) days 3 mL 2 01/09/2021 2 escitalopram (LEXAPRO) 10 mg tabletIndication s:Moderate episode of recurrent major depressive disorder (HCC) Take 1 tablet (10 mg total) by mouth every morning 90 tablet 3 01/14/2021 2 hydroxychloroqui ne (PLAQUENIL) 200 mg tabletIndication s:Arthritis Take 1 tablet (200 mg total) by mouth material stress tester before breakfast 01/30/2019 3 multivitamin capsuleIndicatio ns:Vitamin Deficiency Prevention Take 1 capsule by mouth material stress tester before breakfast 4 octreotide (SandoSTATIN) 100 mcg/mL injection 1 mL every 8 hours 3 octreotide LAR (SandoSTATIN LAR) 20 mg suspension,exten ded rel reconIndications :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 Inject 10 mg into the muscle as instructed every 28 (twenty-eight) days Pt unsure of dosage 2 pravastatin (PRAVACHOL) 40 mg tabletIndication s:Dyslipidemia Take 1 tablet (40 mg total) by mouth every morning 90 tablet 3 01/14/2021 2 valsartan-hydroC HLOROthiazide (DIOVAN-HCT) 80-12.5 mg per tabletIndication s:hypertension TAKE 1 TABLET BY MOUTH DAILY 90 tablet 3 01/14/2021 2 documented as of this encounter Discharge Disposition Disposition Code Departure Means Destination Discharge to home or self care documented in this encounter Plan of Treatment Not on file documented as of this encounter Procedures Procedure Name Priority Date/Time Associated Diagnosis Comments CT ABDOMEN PELVIS W CONTRAST Schedule Routine, Read Routine (OP Routine) 10/06/2021 12:26 PM WOOD FUEL PELLETIZER Malignant carcinoid tumor of stomach (CMS/HCC) (HCC) documented in this encounter Results * CT Abdomen Pelvis W Contrast (10/06/2021 12:26 PM WOOD FUEL PELLETIZER) Anatomical Region Laterality Modality Body N/A Computed Tomogra phy 10/06/2021 12:5 5 PM WOOD FUEL PELLETIZER Impressions 10/06/2021 12:55 PM WOOD FUEL PELLETIZER 1. Stable 6 mm enhancing lesion within the uncinate process which may represent a neuroendocrine tumor. 2. Stable pulmonary nodules within the lung bases. 3. No evidence of progression of disease within abdomen or pelvis. Electronically signed by: Darrell Polk M.D. Narrative 10/06/2021 12:55 PM WOOD FUEL PELLETIZER EXAMINATION: ??Computed tomography of the abdomen/pelvis with intravenous contrast HISTORY: Carcinoid tumor of stomach TECHNIQUE: ??Transaxial computed tomographic images of the abdomen/pelvis ??were obtained with intravenous contrast according to the standard protocol after the uneventful administration of 100 mL Opti-Ray 350 intravenous contrast. COMPARISON: 03/24/2021 FINDINGS: ?? The lung bases demonstrate unchanged groundglass nodule at 234.7 measuring 4 mm. A 3 mm nodule in the right middle lobe seen at 246.7, unchanged. The heart size is normal. There is no pericardial effusion. No focal liver lesions. No biliary ductal dilatation. Normal gallbladder. There are postsurgical changes involving the stomach and duodenum. There is a stable 6 mm hyperenhancing lesion within the uncinate process on table position 380.7. The spleen is normal. Both adrenal glands are normal. There is no hydronephrosis involving either kidney. The bladder is normal appearing. The uterus and adnexa are unremarkable. No free fluid or gas. No abdominal or pelvic lymphadenopathy. No discrete peritoneal or omental nodules are appreciated. There is no abnormal bowel wall thickening or dilatation. Bone windows demonstrate no suspicious lytic or blastic lesions. A bone island is seen within the right iliac bone, unchanged the examination. There is mild multilevel degenerative disc disease. Procedure Note Darrell Polk MD - 10/06/2021 EXAMINATION: Computed tomography of the abdomen/pelvis with intravenous contrast HISTORY: Carcinoid tumor of stomach TECHNIQUE: Transaxial computed tomographic images of the abdomen/pelvis were obtained with intravenous contrast according to the standard protocol after the uneventful administration of 100 mL Opti-Ray 350 intravenous contrast. COMPARISON: 03/24/2021 FINDINGS: The lung bases demonstrate unchanged groundglass nodule at 234.7 measuring 4 mm. A 3 mm nodule in the right middle lobe seen at 246.7, unchanged. The heart size is normal. There is no pericardial effusion. No focal liver lesions. No biliary ductal dilatation. Normal gallbladder. There are postsurgical changes involving the stomach and duodenum. There is a stable 6 mm hyperenhancing lesion within the uncinate process on table position 380.7. The spleen is normal. Both adrenal glands are normal. There is no hydronephrosis involving either kidney. The bladder is normal appearing. The uterus and adnexa are unremarkable. No free fluid or gas. No abdominal or pelvic lymphadenopathy. No discrete peritoneal or omental nodules are appreciated. There is no abnormal bowel wall thickening or dilatation. Bone windows demonstrate no suspicious lytic or blastic lesions. A bone island is seen within the right iliac bone, unchanged the examination. There is mild multilevel degenerative disc disease. IMPRESSION: 1. Stable 6 mm enhancing lesion within the uncinate process which may represent a neuroendocrine tumor. 2. Stable pulmonary nodules within the lung bases. 3. No evidence of progression of disease within abdomen or pelvis. Electronically signed by: Darrell Polk M.D. Gato Abrams MD IMG CT PROCEDURES Final Result documented in this encounter Visit Diagnoses Diagnosis Malignant carcinoid tumor of stomach (HCC) Malignant carcinoid tumor of the stomach documented in this encounter Administered Medications Inactive Administered Medications - up to 3 most recent administrations Medication Order MAR Action Action Date Dose Rate Site ioversoL (OPTIRAY 350) syringe syringe 100 mL 100 mL, intravenous, Once in imaging, contrast, Starting on 10/06/21 at 1226, For 1 dose Contrast Given 10/06/2021 12:31 PM WOOD FUEL PELLETIZER 95 mL documented in this encounter Care Teams Touch Up Edger Relationship Specialty Start Date End Date Elizabeth Borrego PA [address] [facility] [address] [place] [address] PCP - General Internal Medicine 03/25/20 09/27/23 Luann Lawrence NP Nurse Practitioner Nurse Practitioner 01/06/19 Adarsh Tuttle MD [address] [facility] [address] [place] [address] Consulting Physician Gastroenterology 02/22/19 Sebastien Martinez DO [address] [place] [address] Medical Oncologist/House Steward/Stewardess Hematology and Oncology 02/22/19 Guru Winters DO [address] [place] [address] Consulting Physician Gastroenterology 02/22/19 Gato Abrams MD [address] [place] [address] Surgeon Surgical Oncology 09/07/19 Marina Rosales MD [address] [facility] [address] [place] [address] Consulting Physician General Surgery 03/24/21 documented as of this encounter
--- OUTSIDE RECORDS SUMMARY | 2024-10-04 03:01 | XMS_ITS | Encounter Summary ---
Author Organization [facility] Address [address] [facility] [address] [place] [address] Care Team Providers Care Internal Medicine Veterinary Technician Name Role Phone Melinda Luann Burgess NP Unavailable [phone] Adarsh Tuttle MD Unavailable [phone] Sebastien Martinez DO Unavailable [phone] Guru Winters DO Unavailable [phone] Gato Abrams MD Unavailable [phone] Elizabeth Borrego Primary Care Provider [phone] Marina Rosales MD Unavailable [phone] Reason for Visit * Reason Comments Follow-up annual f/u on LBBB, HTN Encounter Details Date Type Department Care Team (Late st Contact Info) Description 09/23/2021 9:30 AM CONCRETE BATCHING PLANT OPERATOR Office Visit [facility] Cardiology [address] [facility] [address] [place] [address] Rowdy Marroquin MD [address] [facility] [address] [place], [place] [id number] 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); LBBB (left bundle branch block); HTN (hypertension), benign; Mixed hyperlipidemia; Gastric carcinoma (HCC) Social History Tobacco Use [...] on file 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:22 AM CONCRETE BATCHING PLANT OPERATOR Gender Identity Female 06/07/2020 8:39 AM CDT Sexual Orientation Not on file 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 Not on file Not on mikie e documented as of this encounter Last Filed Vital Signs Vital Sign Reading Time Taken Comments Blood Pressure 100/72 09/23/2021 9:36 AM CONCRETE BATCHING PLANT OPERATOR Pulse 56 09/23/2021 9:36 AM CONCRETE BATCHING PLANT OPERATOR Temperature - - Respiratory Rate - - Oxygen Saturation 94% 09/23/2021 9:36 AM CONCRETE BATCHING PLANT OPERATOR Inhaled Oxygen Concentration - - Weight 70.8 kg (156 lb) 09/23/2021 9:36 AM CONCRETE BATCHING PLANT OPERATOR Height 162.6 cm (5' 4 ) 09/23/2021 9:36 AM CONCRETE BATCHING PLANT OPERATOR Body Mass Index 26.78 09/23/2021 9:36 AM CONCRETE BATCHING PLANT OPERATOR documented in this encounter Progress Notes * Rowdy Marroquin MD - 09/23/2021 9:30 AM CST [facility] DATE OF VISIT: 09/23/2021 CHIEF COMPLAINT Chief Complaint Patient presents with ??? 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 Left bundle-branch block chronicity unknown. 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 Context is important, no h/o embolic events/CVA. Clinical observation for now. ?? 2. BP controlled goal <140/90mmHg. Monitor BP on routine basis. Call with readings. Continue consistent cardiovascular exercise, weight loss, medication compliance, and low-sodium diet. ??-On Valsartan/HCTZ 80/12.5mg daily which was reduced due to lower BP tolerating well now. 3. Lipids personally reviewed from 09/23/21 LDL 89, well controlled goal LDL<100. Continue Pravastatin 40mg qhs and lifestyle modification. ?? 4. Lifestyle modification counseling performed. Weight loss, exercise, reduction in caloric intake. ?? 5. Follow up with Dr. Martinez as scheduled. -12 lead EKG today personally reviewed and discussed SB LBBB 56bpm GA 144mse QRS 156msec QTc 454msec abnl EKG -Discussed circumstances in which PPM or METAL BONDING PRESS OPERATOR may be indicated such as new conduction system dz and symptomatic bradycardia or QRS widening with LV dysfunction related to LBBB and METAL BONDING PRESS OPERATOR therapy. All questions answered to her satisfaction. Over 50% of this visit counseling LBBB, HTN, lipids, medications, lifestyle modification. Follow up in the office in 1 year or sooner as needed. Thank you for allowing me the privilege of participating in the care this very pleasant patient. Please do not hesitate to contact me with any additional questions or concerns. DANNY Gibson is a 56 y.o. female with a PMHx of hypertension, [...] upper endoscopy. She underwent partial gastrectomy at [facility] without complication. She states over 20 years ago she had seen a wrecking crane engine operator after being told she had an irregular heartbeat for which she wore a Holter monitor and wasplaced on atenolol. She took this medication for several years but does not recall a specific diagnosis. She admits she did not follow-up with a wrecking crane engine operator after seeing him initially. She has now [...] CT spot on pancreas, PET scan at [facility] for clarification and if present further workup and possible biopsy. Still feeling well no CP or SOB, no new limitations. Echo done at [facility] 02/21/20 EF 60-65% Lambl's excresence noted on [...] really an issue. Meds unchanged Sandostatin reduced. MEDICAL HISTORY Past Medical History: Diagnosis Date ??? Anemia ??? Autoimmune disease (CMS/HCC) (HCC) ??? Cancer (CMS/HCC) (HCC) carcinode tumors ??? Carcinoid tumor of stomach ??? Chronic diarrhea ??? Colon polyp ??? Depression ??? Heart murmur ??? Hyperlipidemia ??? Hypertension ??? Left bundle branch block ??? Rheumatoid arthritis (HCC) ??? Urinary tract infection years ago Social History Tobacco Use ??? Smoking status: Former Smoker Packs/day: 1.00 Years: 2.00 Pack years: 2.00 Types: Cigarettes Start date: 1996 Quit date: 1998 Years since quittin.9 ??? Smokeless tobacco: Never Used Vaping Use ??? Vaping Use: Never used Substance Use Topics ??? Alcohol use: Yes Alcohol/week: 2.0 - 3.0 standard drinks Types: 2 - 3 Cans of beer per week ??? Drug use: Not Currently Types: Alcohol Family [...] Maternal Grandmother ??? Anesthesia problems Neg Hx MEDICATIONS HOME MEDICATIONS : buPROPion XL (WELLBUTRIN XL) 150 mg 24 hr tablet cholecalciferol (VITAMIN D3) 1,000 unit capsule cyanocobalamin (Vitamin B-12) 1,000 mcg/mL injection escitalopram (LEXAPRO) 10 mg tablet hydroxychloroquine (PLAQUENIL) 200 mg tablet multivitamin capsule octreotide (SandoSTATIN) 100 mcg/mL injection octreotide LAR (SandoSTATIN LAR) 20 mg suspension,extended rel recon pravastatin (PRAVACHOL) 40 mg tablet valsartan-hydroCHLOROthiazide (DIOVAN-HCT) 80-12.5 mg per tablet ALPRAZolam (XANAX) 0.25 mg tablet ALLERGIES No Known Allergies REVIEW OF SYSTEMS Review of Systems Constitutional: Negative for decreased appetite, diaphoresis, fever, malaise/fatigue, night sweats,weight gain and weight loss. HENT: Negative for hearing loss and nosebleeds. Eyes: Negative for blurred vision and pain. Cardiovascular: Positive for irregular heartbeat and palpitations. Negative for chest pain, claudication, dyspnea on exertion, leg swelling, near-syncope, orthopnea and syncope. Respiratory: Negative for cough, [...] not nervous/anxious. Allergic/Immunologic: Negative for environmental allergies. PHYSICAL EXAM Vitals BP 100/72 (BP Location: Left arm, Patient Position: Sitting) Pulse 56 Ht 162.6 cm (5' 4 ) Wt 70.8 kg (156 lb) SpO2 94% BMI 26.78 kg/m?? Weight: 70.8 kg (156 lb) Height: 162.6 cm (5' 4 ) Body mass index is 26.78 kg/m??. Physical Exam Constitutional: General: She is not in acute distress. Appearance: She is well-developed. She is not diaphoretic. HENT: Head: Normocephalic and atraumatic. Right Ear: External ear normal. Left Ear: External ear normal. Nose: Nose normal. Mouth/Throat: Dentition: Normal dentition. Eyes: General: Lids are normal. No scleral icterus. Conjunctiva/sclera: Conjunctivae normal. Neck: Thyroid: No thyromegaly. Vascular: Normal carotid pulses. No carotid bruit, hepatojugular reflux or JVD. Trachea: No tracheal deviation. Cardiovascular: Rate and Rhythm: Normal rate and regular rhythm. Pulses: Normal pulses and intact distal pulses. Heart sounds: Normal heart sounds, S1 [...] Normal range of motion and neck supple. Lymphadenopathy: Cervical: No cervical adenopathy. Skin: General: Skin is warm and dry. Coloration: Skin is not pale. Findings: No ecchymosis, erythema, petechiae or rash. Nails: There is no clubbing. Neurological: Mental Status: She is alert and oriented to person, place, and time. Cranial Nerves: No cranial nerve deficit. Motor: No abnormal muscle tone. Coordination: Coordination normal. Psychiatric: Speech: Speech normal. Behavior: Behavior normal. Behavior is cooperative. Judgment: Judgment normal. LABS AND OTHER DIAGNOSTIC TESTS Lab Results Component Value Date WBC 3.6 (L) 08/27/2021 HGB 12.1 08/27/2021 HCT 36.0 08/27/2021 CREATININE 0.60 08/27/2021 POTASSIUM 4.2 08/27/2021 BUNSER 16 08/27/2021 Results for orders placed or performed in visit on 08/27/21 Comprehensive metabolic panel Result Value Ref Range Sodium 142 135 - 145 mmol/L Potassium, pl 4.2 3.3 - 4.9 mmol/L Chloride 107 97 - 110 mmol/L CO2 29 22 - 32 mmol/L Anion gap 6 2 - 15 mmol/L BUN 16 8 - 25 mg/dL Creatinine 0.60 0.60 - 1.10 mg/dL Glucose 103 70 - 199 mg/dL Calcium 9.4 8.5 - 10.3 mg/dL Bilirubin, total 0.4 0.1 - 1.2 mg/dL Protein, pl 7.2 6.5 - 8.5 g/dL Albumin 4.2 3.5 - 5.0 g/dL Alk phos 65 40 - 130 Units/L ALT 15 7 - 45 Units/L AST 22 10 - 45 Units/L CBC with auto differential Result Value Ref Range WBC 3.6 (L) 3.8 - 9.9 K/cumm Hgb 12.1 11.9 - 15.5 g/dL Hct 36.0 35.6 - 45.5 % Plt 242 150 - 400 K/cumm MPV 9.8 9.1 - 12.3 fL RBC 4.19 3.90 - 5.20 M/cumm MCV 85.9 81.3 - 96.4 fL MCH 28.9 27.1 - 33.3 pg MCHC 33.6 32.3 - 35.7 g/dL RDW CV 12.0 11.1 - 14.9 % RDW SD 37.7 35.7 - 48.1 fL Gastrin Result Value Ref Range Gastrin <10 pg/mL Chromogranin A Result Value Ref Range Chromogranin A <20 <93 ng/mL Differential, auto Result Value Ref Range Neutrophil abs 2.2 1.7 - 6.5 K/cumm Lymphocyte abs 1.1 0.8 - 3.3 K/cumm Monocyte abs 0.3 0.2 - 0.8 K/cumm Eosinophil abs 0.1 0.0 - 0.5 K/cumm Neutrophil pct 59.1 % Imm gran pct 0.3 % Lymphocyte pct 28.8 % Monocyte pct 6.9 % Eosinophil pct 3.8 % Basophil pct 1.1 % eGFR Result Value Ref Range eGFR 103 mL/min/1.73 m2 Personally reviewed EKG, electronic medical record, and bloodwork/lipids. Antonia Marroquin MD, [facility] This note is dictated and transcribed using Nuubo Direct Software. Liability Claims Representative variancesmay occur. Despite proofreading, typographical errors may occur. RETE BATCHING PLANT OPERATOR documented in this encounter Miscellaneous Notes * Addendum Note - Chelle Cook MA - 09/23/2021 9:30 AM CSTAddended by: CHELLE COOK on: 09/23/2021 10:56 AM Modules accepted: Orders RETE BATCHING PLANT OPERATOR documented in this encounter Plan of Treatment Not on file documented as of this encounter Procedures Procedure Name Priority Date/Time Associated Diagnosis Comments POCT LIPID PANEL Routine 09/23/2021 10:5 6 AM CONCRETE BATCHING PLANT OPERATOR Mixed hyperlipidemia ECG 12-LEAD Routine 09/23/2021 LBBB (left bundle branch block) HTN (hypertension), benign documented in this encounter Results * POCT lipid panel (09/23/2021 10:56 AM CONCRETE BATCHING PLANT OPERATOR) Cholesterol, POC 173 mg/dL HDL, POC 71 mg/dL Triglycerides, POC <45 mg/dL LDL Cholesterol POC 89 mg/dL Chol/HDL Ratio, POC 2.5 Non-HDL Cholesterol, POC 103 mg/dL Cholesterol Total, POC 173 mg/dL Capillary blood 09/23/2021 1 0:56 AM CONCRETE BATCHING PLANT OPERATOR us Rowdy Marroquin MD POINT OF CARE TEST ORDER CARLA Final Result * ECG 12 lead (09/23/2021) us Rowdy Marroquin MD ECG ORDERABLES Edited R esult - Final documented in this encounter Visit Diagnoses Diagnosis 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- Primary LBBB (left bundle branch block) Other left bundle branch block HTN (hypertension), benign Essential hypertension, benign Mixed hyperlipidemia Gastric carcinoma (HCC) Malignant neoplasm of stomach, unspecified site documented in this encounter Discontinued Medications Medication Sig Discontinue Reason Start Date End Da te ALPRAZolam (XANAX) 0.25 mg tablet Take 1 tablet (0.25 mg total) by mouth 3 (three) times a day as needed for anxiety Discontinued by another clinician 08/09/2020 09/23/2021 documented as of this encounter Care Teams Internal Medicine Veterinary Technician Relationship Specialty Start Date End Date Elizabeth Borrego PA [address] [facility] [facility] [address] [place] [address] PCP - General Internal Medicine 03/25/20 09/27/23 Luann Lawrence NP Nurse Practitioner Nurse Practitioner 01/06/19 Adarsh Tuttle MD [address] [facility] [address] [place] [address] Consulting Physician Gastroenterology 02/22/19 Sebastien Martinez DO [address] [place] [address] Medical Oncologist/Mechanical Applications Engineer Hematology and Oncology 02/22/19 Guru Winters DO [address] [place] [address] Consulting Physician Gastroenterology 02/22/19 Gato Abrams MD [address] [place] [address] Surgeon Surgical Oncology 09/07/19 Marina Rosales MD [address] [facility] [address] [place] [address] Consulting Physician General Surgery 03/24/21 documented as of this encounter
--- OUTSIDE RECORDS SUMMARY | 2024-10-04 03:02 | XMS_ITS | Encounter Summary ---
Author Organization [facility] Address [address] [place] [address] Phone Care Team Providers Care Artist Suspect Name Role Phone Luann Lawrence SPINE NURSE Unavailable [phone] Adarsh Tuttle MD Unavailable [phone] Vick Li DO Unavailable [phone] Guru Winters DO Unavailable [phone] Gato Abrams MD Unavailable [phone] Elizabeth Borrego Primary Care Provider [phone] Reason for Visit * Reason Comments Follow-up Encounter Details Date Type Department Care Team (Late st Contact Info) Description 11/29/2020 9:30 AM DISPLAY ASSOCIATE Office Visit [facility] Oncology [address] [facility] [address] [place] [address] Vikc Li DO [address] [id number] 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) Social History Tobacco Use Types Packs/Day Years Used Date Smoking Tobacco: Former Cigarettes 1 2 7 - 1998 Smokeless Tobacco: Never Alcohol Use Standard Drinks/Week Comments Yes 2 (1 standard drink = 0.6 oz pur e alcohol) PHQ-2 Answer Date Recorded PHQ-2 Total Score (If total score is 3 or more points, staff should administer the PHQ-9) 0 10/01/2020 Comments No Sex and Gender Information Value Date Recorded Sex Assigned at Not on file 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:22 AM DISPLAY ASSOCIATE Gender Identity Female 06/07/2020 8:39 AM CDT Sexual Orientation Not on file 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 Not on file Not on mikie e documented as of this encounter Last Filed Vital Signs Vital Sign Reading Time Taken Comments Blood Pressure 121/74 11/29/2020 9:32 AM DISPLAY ASSOCIATE Pulse 54 11/29/2020 9:32 AM DISPLAY ASSOCIATE Temperature - - Respiratory Rate - - Oxygen Saturation 99% 11/29/2020 9:32 AM DISPLAY ASSOCIATE Inhaled Oxygen Concentration - - Weight 67.8 kg (149 lb 6.4 oz) 11/29/2020 9:32 A M DISPLAY ASSOCIATE Height 162.6 cm (5' 4 ) 11/29/2020 9:32 AM DISPLAY ASSOCIATE Body Mass Index 25.64 11/29/2020 9:32 AM DISPLAY ASSOCIATE documented in this encounter Progress Notes * iVck Li, - 11/29/2020 9:30 AM CST Patient ID: Fabiola Gibson is a 55 y.o. female. Primary Care Provider: Elizabeth Borrego PA Assessment/Plan 1. 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 2. Pernicious anemia. 3. Localized pancreatic neuroendocrine tumor. 4. Status post COVID-19 infection. 5. Octreotide induced steatorrhea Recommendations: 1. At this visit, recent CT scan shows stability of 6 mm lesion of the uncinate process of the pancreas which corresponds to benefit and efficacy with the current somatostatin analog injections. 2. I recommend that she continues with octreotide 20 mg IM every 4 weeks. 3. I will see the patient back in 3 months. 4. I will track down the latest endoscopy reports. My total encounter time on 11/29/2020 was 20 minutes which was spent in the activities documented inthe note. This includes time spent prior to the visit and after the visit in direct care of the patient. This time does not include time spent in any separately reportable services. Patient Active Problem List Diagnosis ??? Malignant carcinoid tumor of stomach (CMS/HCC) ??? Carcinoid tumor of stomach ??? Pernicious anemia ??? Gastric carcinoma (CMS/HCC) ??? Iron deficiency anemia due to chronic blood loss ??? HTN (hypertension), benign ??? Dyslipidemia ??? LBBB (left bundle branch block) ??? Palpitations ??? Premature atrial contractions ??? 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 Annual physical exam ??? Other fatigue ??? Breast cancer screening by mammogram ??? Gastroesophageal reflux disease without esophagitis ??? Erosive osteoarthritis ??? Moderate episode of recurrent major depressive disorder (CMS/HCC) ??? Submucosal lesion of stomach ??? Fever ??? COVID-19 ??? BMI 25.0-25.9,adult Diagnoses and all orders for this visit: Malignant carcinoid tumor of stomach (CMS/HCC) (Primary) - Clinic Appointment Request Follow up; VICK LI; Clinic Appointment Location: [facility] - Clinic Appointment Request Follow up; VICK LI; Clinic Appointment Location: [facility]; Future - Injection Appointment Request Is this [...] patient receive treatment? [facility]; Future - Lab Draw Appt Request Arm Draw or Central Line Draw? Arm; What is your ordering location? [facility]; Where will this patient receive treatment? [facility]; Future - Injection Appointment Request Is this the patient's first treatment? No; What is your ordering location? [facility]; Where will this patient receive treatment? [facility]; Future - CBC with auto differential; Future [...] was then referred to Dr. Tuttle at [facility] for EUS evaluation. Thiswas performed on [...] Gato Abrams in Surgical Oncology Department at [facility]. 8. On February 24, 2019, [...] A in May was better but still [id number]. 12. In May of 2019, we had [...] decided to proceed with medical therapy using [id number] mg IM every 4 weeks. She has received 2 doses of this medication. She did have diarrhea after the 1st injection but this has resolved after the 2nd injection. 16. Dr. Brown in Interventional Gastroenterology Department [...] uncinate process of the pancreas. 18. In August, she did intermittent diarrhea that resembles steatorrhea but easily controlled with diet and pgzp-[id number] medications. Occasionally she has some shaking feeling that resolved when she eats something sweet. 19. Dr. Winters performed EGD and is scheduled to perform colonoscopy on the patient in the next 4 weeks. She did have some diarrhea in October but this improved this week. Interval Notes: I have reviewed: allergies, current medications, past family history, past medical history, past social history, past surgical history and problem list HPI Review of Systems Constitutional: Negative. Negative for appetite change and chills. HENT: Negative. Eyes: Negative. Respiratory: Negative. Cardiovascular: Negative. Gastrointestinal: Positive for diarrhea. Endocrine: Negative. Genitourinary: Negative. Skin: Negative. Neurological: Negative. Hematological: Negative. Psychiatric/Behavioral: Negative. Pain: negative. Objective Physical Exam: Vital Signs for this encounter: BSA: 1.75 meters squared BP 121/74 (BP Location: Left arm) Pulse 54 Ht 162.6 cm (5' 4 ) Wt 67.8 kg (149 lb 6.4 oz) SpO2 99% BMI 25.64 kg/m?? Physical Exam Constitutional: Appearance: She is well-developed. HENT: Head: Normocephalic and atraumatic. Right Ear: External ear normal. Left Ear: External ear normal. Nose: Nose normal. Eyes: Conjunctiva/sclera: Conjunctivae normal. Pupils: Pupils are equal, round, and reactive to light. Neck: Musculoskeletal: Normal range of motion and neck supple. Cardiovascular: Rate and Rhythm: Normal rate and regular rhythm. Pulmonary: Effort: Pulmonary effort is normal. Abdominal: General: Bowel sounds are normal. Palpations: Abdomen is soft. Musculoskeletal: Normal range of motion. Skin: General: Skin is warm and dry. Neurological: General: No focal deficit present. Mental Status: She is alert and oriented to person, place, and time. Psychiatric: Behavior: Behavior normal. Performance Status: Asymptomatic Results: WBC Date Value Ref Range Status 11/18/2020 3.5 (L) 3.8 - 9.9 X10 3/ul Final 05/13/2020 5.7 3.8 - 9.9 K/cumm Final Hgb Date Value Ref Range Status 05/13/2020 11.0 (L) 11.9 - 15.5 g/dL Final Hemoglobin Date Value Ref Range Status 11/18/2020 12.4 11.9 - 15.5 g/dL Final Hct Date Value Ref Range Status 11/18/2020 36.8 35.6 - 45.5 % Final 05/13/2020 32.8 (L) 35.6 - 45.5 % Final Plt Date Value Ref Range Status 05/13/2020 216 150 - 400 K/cumm Final Plt Count Date Value Ref Range Status 11/18/2020 229 150 - 400 x10 3/ul Final Creatinine Date Value Ref Range Status 11/18/2020 0.7 0.5 - 1.1 mg/dL Final Comment: NOTE: Estimated GFR (Cockroft-Gault) will NOT be calculated unless patient Height and Weight were entered. Also, Kidney Disease Stage (GFR) and Estimated GFR (Cockroft-Gault) will NOT be calculated if Creatinine result is <0.2. 05/13/2020 0.82 0.60 - 1.10 mg/dL Final AST Date Value Ref Range Status 11/18/2020 21 0 - 32 U/L Final 08/24/2019 38 10 - 45 Units/L Final CT scan of the chest, abdomen pelvis with contrast performed last week shows the followin. 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 ?? 2. Stable postsurgical changes of distal gastrectomy and Billroth II gastrojejunostomy, without CT evidence of recurrent or metastatic disease within the abdomen. LAY ASSOCIATE documented in this encounter Plan of Treatment Scheduled Orders Name Type Priority Associated Diagnoses Orde r Schedule CBC with auto differential Lab STAT Malignant carcinoid tumor of stomach (CMS/HCC) Expected: 03/10/2021, Expires: 03/10/2022 Comprehensive metabolic panel Lab Routine Malignant carcinoid tumor of stomach (CMS/HCC) Expected: 03/10/2021, Expires: 03/10/2022 documented as of this encounter Visit Diagnoses Diagnosis Malignant carcinoid tumor of stomach (HCC)- Primary Malignant carcinoid tumor of the stomach documented in this encounter Historical Medications * This list may reflect changes made after this encounter. octreotide (SandoSTATIN) 100 mcg/mL injection 1 mL every 8 hours 04/26/2023 syringe and needle,insulin,1m L (insulin syringe-needle U-100) 1 mL 29 gauge x 7/16 syringe insulin syringe U-100 with needle 1 mL 29 gauge x 7/16 U 1 SYRINGE Q 30 DAYS 01/09/2021 added in this encounter Orders Appointment Requests Count Last Ordered Date Fi rst Ordered Date ONCBCN CLINIC APPOINTMENT REQUEST 2 021 11/29/2020 ONCBCN INJECTION APPOINTMENT REQUEST 3 01/1712/16/2020 documented in this encounter Additional Health Concerns Infection Onset Date Last Indicated Resolved Time COVID: Recovered Comment:Added based on recent COVID infection. 08/21/2020 08/23/2020 12/19/2020 3:[address] documented as of this encounter Care Teams Artist Suspect Relationship Specialty Start Date End Date Elizabeth Borrego PA [address] [place] [address] PCP - General Internal Medicine 03/25/20 09/27/23 Luann Lawrence, ANUP Nurse Practitioner Nurse Practitioner 01/06/19 Adarsh Tuttle MD [address] [facility] [address] [place] [address] Consulting Physician Gastroenterology 02/22/19 Vick Li DO [address] [place] [address] Medical Oncologist/Production Engineer Hematology and Oncology 02/22/19 Guru Winters DO [address] [place] [address] Consulting Physician Gastroenterology 02/22/19 Gato Abrams MD [address] [place] [address] Surgeon Surgical Oncology 09/07/19 documented as of this encounter
--- OUTSIDE RECORDS SUMMARY | 2024-10-04 03:02 | XMS_ITS | Encounter Summary ---
Author Organization [facility] Address [address] [place] [address] Phone Care Team Providers Care Brake Drum Molder Name Role Phone Luann Lawrence INDOOR SPORTS CENTRE MANAGER Unavailable [phone] Adarsh Tuttle MD Unavailable Sebastien Martinez DO Unavailable Guru Winters DO Unavailable [phone] Gato Abrams MD Unavailable [phone] Elizabeth Borrego Primary Care Provider [phone] Encounter Details Date Type Department Care Team (Late st Contact Info) Description 11/17/2020 Orders Only [facility] Oncology [address] [facility] [address] [place] [id number] Sebastien Martinez, DO [address] [facility] [address] [place] [address] Malignant carcinoid tumor of stomach (CMS/HCC) (Primary [...] on file 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:22 AM COFFEE BLENDER Gender Identity Female 06/07/2020 8:39 AM CDT Sexual Orientation Not on file 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 08/21/2020 08/23/2020 12/19/2020 3:[address] documented as of this encounter Care Teams Brake Drum Molder Relationship Specialty Start Date End Date Elizabeth Borrego PA [address] [facility] [address] [place], [place] [phone] PCP - General Internal Medicine 03/25/20 09/27/23 Luann Lawrence, ANUP Nurse Practitioner Nurse Practitioner 01/06/19 Adarsh Tuttle MD [address] [facility] [address] [place] [address] Consulting Physician Gastroenterology 02/22/19 Sebastien Martinez DO [address] [place] [id number] Medical Oncologist/Clinical Nursing Director Hematology and Oncology 02/22/19 Guru Winters DO [address] [place] [id number] Consulting Physician Gastroenterology 02/22/19 Gato Abrams MD [address] [place] [address] Surgeon Surgical Oncology 09/07/19 documented as of this encounter
--- OUTSIDE RECORDS SUMMARY | 2024-10-04 03:02 | XMS_ITS | Encounter Summary ---
Author Organization [facility] Address [address] [place] [address] Care Team Providers Care Fabric Worker Name Role Phone Luann Lawrence NP Unavailable [phone] Adarsh Tuttle MD Unavailable [phone] Sebastien Martinez DO Unavailable [phone] Guru Winters DO Unavailable [phone] Gato Abrams MD Unavailable Elizabeth Borrego Primary Care Provider [phone] Marina Rosales MD Unavailable [phone] Reason for Referral * Diagnostic Imaging (Routine) - Closed Specialty Diagnoses / Procedures Referred By Clemencia mendez Referred To Contact Radiology Diagnoses Malignant carcinoid tumor of stomach (HCC) Procedures CT Abdomen Pelvis W WO Contrast Gato Abrams MD [address] [place] [address] Phone: tel: fax: [facility] [address] [place] [address] Referral ID Status Reason Start Date Expiration Date Visits Re quested Visits Authorized [id number] Closed 08/27/2020 09/26/2021 1 1 Reason for Visit * Diagnostic Imaging (Routine) - Closed Specialty Diagnoses / Procedures Referred By Clemencia mendez Referred To Contact Radiology Diagnoses Malignant carcinoid tumor of stomach (HCC) Procedures CT Abdomen Pelvis W WO Contrast Gato Abrams MD [address] [address] Phone: tel: fax: [facility] [address] [facility] [place] [address] Referral ID Status Reason Start Date Expiration Date Visits Re quested Visits Authorized [id number] Closed 08/27/2020 09/26/2021 1 1 Encounter Details Date Type Department Care Team (Latest Contact Info) Description 03/24/2021 11:24 AM CDT - 03/24/2021 11:59 PM CDT Hospital Encounter [facility] [address] [place] [address] Gato Abrams MD [id number] [place], [place] [id number] Malignant carcinoid tumor of stomach (CMS/HCC) Discharge Disposition: Discharge to home or self [...] on file 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:22 AM COAL TRAM DRIVER Gender Identity Female 06/07/2020 8:39 AM CDT Sexual Orientation Not on file 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 Not on file Not on mikie e documented as of this encounter Medications at Time of Discharge cholecalciferol (VITAMIN D-3) 1,000 unit capsuleIndicatio ns:Vitamin D Deficiency Take 2 capsules (2,000 Units total) by mouth personnel adviser before breakfast ALPRAZolam (XANAX) 0.25 mg tablet Take 1 tablet (0.25 mg total) by mouth 3 (three) times a day as needed for anxiety 30 tablet 08/09/2020 12/07/202 1 buPROPion XL (WELLBUTRIN XL) 150 mg 24 [...] 1 tablet (200 mg total) by mouth personnel adviser before breakfast 01/30/2019 3 Insulin Syringe MicroFine 1/2 mL 28 gauge x 1/2 syringe 08/26/2020 1 insulin syringe-needle U-100 1 mL 29 gauge x 1/2 syringe 1 Syringe every 30 (thirty) days 100 each 01/09/2021 1 multivitamin capsuleIndicatio ns:Vitamin Deficiency Prevention Take 1 capsule by mouth personnel adviser before breakfast 4 octreotide (SandoSTATIN) 100 mcg/mL [...] CONTRAST Schedule Routine, Read Routine (OP Routine) 03/24/2021 1:10 PM CDT Malignant carcinoid tumor of stomach (CMS/HCC) documented in this encounter Results * CT Abdomen Pelvis W WO Contrast (03/24/2021 1:10 PM CDT) Anatomical Region Laterality Modality Body N/A Computed Tomogra phy 03/24/2021 2:17 PM CDT Impressions 03/24/2021 2:44 PM CDT 1. Stable 6 mm arterially hyperenhancing lesion in the uncinate process the pancreas likely a small neuroendocrine tumor. 2. No CT evidence for recurrent or metastatic disease in the abdomen or pelvis. Dictated by: Nino Wolff M.D. The radiology attending physician has personally reviewed this study, and had reviewed and/or edited this written report and agrees with it. Electronically signed by: Jose Johnson M.D. Narrative 03/24/2021 2:44 PM CDT EXAMINATION: ??Computed tomography of the abdomen and pelvis with and without intravenous contrast HISTORY: 55-year-old female with gastric carcinoid status post gastrectomy with Billroth II gastrojejunostomy 08/23/2019. Follow-up of presumed pancreatic primary neuroendocrine tumor on somatostatin. TECHNIQUE: ??Transaxial computed tomographic images of the abdomen were obtained with and without intravenous contrast and pelvis obtained with intravenous contrast according to the pancreas protocol after the uneventful administration of 125 mL Opti-Ray 350 intravenous contrast. COMPARISON: CT pancreas protocol 11/25/2020 FINDINGS: The lung bases are clear. There is no pleural or pericardial effusion. The hepatic parenchyma is normal without focal lesion. The portal and hepatic veins are patent. There is no intra or extrahepatic biliary ductal dilation. The gallbladder, spleen, and adrenal glands are normal. Stable 6 mm arterially hyperenhancing lesion in the uncinate process the pancreas (table position 225). The kidneys are normal. The ureters and bladder are normal. No renal or ureteral stones. Fibroid uterus. Stable 9 mm right paraovarian cyst (table position 404). Postsurgical change of distal gastrectomy with gastrojejunostomy reanastomosis. No bowel wall thickening or obstruction. No abdominal or pelvic lymphadenopathy. No free fluid. There are no vascular abnormalities. Injection granuloma in the left flank. There is no acute fracture or aggressive osseous lesion. Procedure Note Jose Johnson MD - 03/24/2021 EXAMINATION: Computed tomography of the abdomen and pelvis with and without intravenous contrast HISTORY: 55-year-old female with gastric carcinoid status post gastrectomy with Billroth II gastrojejunostomy 08/23/2019. Follow-up of presumed pancreatic primary neuroendocrine tumor on somatostatin. TECHNIQUE: Transaxial computed tomographic images of the abdomen were obtained with and without intravenous contrast and pelvis obtained with intravenous contrast according to the pancreas protocol after the uneventful administration of 125 mL Opti-Ray 350 intravenous contrast. COMPARISON: CT pancreas protocol 11/25/2020 FINDINGS: The lung bases are clear. There is no pleural or pericardial effusion. The hepatic parenchyma is normal without focal lesion. The portal and hepatic veins are patent. There is no intra or extrahepatic biliary ductal dilation. The gallbladder, spleen, and adrenal glands are normal. Stable 6 mm arterially hyperenhancing lesion in the uncinate process the pancreas (table position 225). The kidneys are normal. The ureters and bladder are normal. No renal or ureteral stones. Fibroid uterus. Stable 9 mm right paraovarian cyst (table position 404). Postsurgical change of distal gastrectomy with gastrojejunostomy reanastomosis. No bowel wall thickening or obstruction. No abdominal or pelvic lymphadenopathy. No free fluid. There are no vascular abnormalities. Injection granuloma in the left flank. There is no acute fracture or aggressive osseous lesion. IMPRESSION: 1. Stable 6 mm arterially hyperenhancing lesion in the uncinate process the pancreas likely a small neuroendocrine tumor. 2. No CT evidence for recurrent or metastatic disease in the abdomen or pelvis. Dictated by: Nino Wolff M.D. The radiology attending physician has personally reviewed this study, and had reviewed and/or edited this written report and agrees with it. Electronically signed by: Jose Johnson M.D. Gato Abrams MD [facility] [place] PROCEDURES Final Result documented in this [...] intravenous, Once in imaging, contrast, Starting on 03/24/21 at 1312, For 1 dose Contrast Given 03/24/2021 1:13 PM CDT 125 mL documented in this encounter Care Teams Fabric Worker Relationship Specialty Start Date End Date Elizabeth Borrego PA [address] [place], [place] [phone] PCP - General Internal Medicine 03/25/20 09/27/23 Luann Lawrence, ANUP Nurse Practitioner Nurse Practitioner 01/06/19 Adarsh Tuttle MD [address] [place] [address] Consulting Physician Gastroenterology 02/22/19 Sebastien Martinez DO [address] [facility] [address] [place] [address] Medical Oncologist/Senior Linux Systems Administrator Hematology and Oncology 02/22/19 Guru Winters DO [address] [address] Consulting Physician Gastroenterology 02/22/19 Gato Abrams MD [address] [id number] Surgeon Surgical Oncology 09/07/19 Marina Rosales MD [address] [place] [address] Consulting Physician General Surgery 03/24/21 documented as of this encounter
--- OUTSIDE RECORDS SUMMARY | 2024-10-04 03:02 | XMS_ITS | Encounter Summary ---
Author Organization [facility] Address [address] [place] [address] Phone Care Team Providers Care Insurance Assistant Name Role Phone Luann Lawrence ANUP Unavailable [phone] Adarsh Tuttle MD Unavailable [phone] Sebastien Martinez DO Unavailable [phone] Guru Winters DO Unavailable [phone] Gato Abrams MD Unavailable [phone] Elizabeth Borrego Primary Care Provider [phone] Encounter Details Date Type Department Care Team (Late st Contact Info) Description 12/13/2020 Telephone [facility] Oncology [address] [place] [address] [address] [place] [address] Anna Kelly, RMA Social History Tobacco Use Types Packs/Day Years [...] on file 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:22 AM [employer] Gender Identity Female 06/07/2020 8:39 AM CDT Sexual Orientation Not on file 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 Changed all injection apts till 8:00am FARMER * Telephone Encounter - Anna Kelly MA - 12/13/2020 9:03 AM MUCK FARMER ----- Message from Yara Davis RN sent at 12/13/2020 8:46 AM MUCK FARMER ----- Regardin injection for nov-january Hi, We cant give injections until 8am when we have a supervising physician here. You scheduled this patient for 730 injections nov- January. Please call her to reschedule until 8 on the next 3 appts. First one is scheduled for Wednesday Thanks! FARMER documented in this encounter Plan of Treatment Not on file documented as of this encounter Visit Diagnoses Not on filedocumented in this encounter Additional Health Concerns Infection Onset Date Last Indicated Resolved Time COVID: Recovered Comment:Added based on recent COVID infection. 08/21/2020 08/23/2020 12/19/2020 3:[address] documented as of this encounter Care Teams Insurance Assistant Relationship Specialty Start Date End Date Elizabeth Borrego PA [address] [place] [address] PCP - General Internal Medicine 03/25/20 09/27/23 Luann Lawrence NP Nurse Practitioner Nurse Practitioner 01/06/19 Adarsh Tuttle MD [address] [place] [address] Consulting Physician Gastroenterology 02/22/19 Sebastien Martinez DO [address] [place] [address] [id number] Medical Oncologist/Application Coordinator Hematology and Oncology 02/22/19 Guru Winters DO [address] [place] [id number] Consulting Physician Gastroenterology 02/22/19 Gato Abrams MD [address] [place] [id number] Surgeon Surgical Oncology 09/07/19 documented as of this encounter
--- OUTSIDE RECORDS SUMMARY | 2024-10-04 03:02 | XMS_ITS | Encounter Summary ---
Author Organization [facility] Address [address] [place] [address] Phone Care Team Providers Care Per Diem Name Role Phone Luann Lawrence ANUP Unavailable [phone] Adarsh Tuttle MD Unavailable [phone] Vick Martinez DO Unavailable [phone] Guru Winters DO Unavailable [phone] Gato Abrams MD Unavailable [phone] Elizabeth Borrego Primary Care Provider [phone] Marina Rosales MD Unavailable [phone] Reason for Visit * Reason Comments Follow-up Encounter Details Date Type Department Care Team (Late st Contact Info) Description 06/27/2021 10:15 AM CDT [facility] Visit [facility] [address] [place] [address] [address] [place] [address] Vick Martinez, DO [address] [address] Malignant carcinoid tumor of stomach (CMS/HCC) [...] file 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:22 AM CAR JOCKEY Gender Identity Female 06/07/2020 8:39 AM CDT Sexual Orientation Not on file 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 female. Primary Care Provider: Elizabeth Borrego PA Assessment/Plan 1. 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 2. Pernicious anemia. 3. Localized pancreatic neuroendocrine tumor. Recommendations: 1. Based on recent EGD EUS procedure, she continues to have stable disease with this neoplasm of the body of the pancreas. Biochemically, I do not detect any signs of progression of her disease. 2. Therefore, patient will continue with once a month octreotide injections at 10 mg intramuscularly. 3. I will see the patient back at the end of September with repeat laboratory assessment. She is scheduled undergo repeat CT scan of the abdomen with contrast by Dr. Abrams in September. My total encounter time on 06/27/2021 was 20 minutes which was spent in [...] ??? Pernicious anemia ??? Gastric carcinoma (CMS/HCC) (HCC) ??? Iron deficiency anemia due to [...] Follow up; VICK MARTINEZ; Clinic Appointment Location: [facility] IM ONC [facility] 180 - Lab Draw Appt Request Arm [...] Where will this patient receive treatment? [facility]; Future - Chromogranin A; Future - Gastrin; Future - CBC with auto differential; Future - Comprehensive metabolic panel; Future - Lab Draw Appt Request Arm Draw or Central Line Draw? Arm; What is your ordering location? [facility]/Hem/BMT; Where will this patient receive treatment? [facility]; Future - Injection Appointment Request Is this the patient's first treatment? No; What is your ordering location? [facility]/Hem/BMT; Where will this patient receive treatment? [facility]; Future - Chromogranin A; Future - Gastrin; Future - CBC with auto differential; Future - Comprehensive metabolic panel; Future - Clinic Appointment Request Follow up; VICK MARTINEZ; Clinic Appointment Location: [facility] 180; Future - Lab Draw Appt Request Arm Draw or Central Line Draw? Arm; What is your ordering location? [facility]Hem[facility]BMT; [facility]; Future - Injection Appointment Request Is this the patient's first treatment? No; What is your ordering location? [facility]/Hem/BMT; [facility]; Future - Chromogranin A; Future - Gastrin; [...] referred to Dr. Tuttle at [facility] for EUS evaluation. Thiswas performed on January [...] Gato Abrams in Surgical Oncology Department at [facility]. 8. On February 24, 2019, [...] A in May was better but still [id number]. 12. In May of 2019, we had [...] decided to proceed with medical therapy using [id number] mg IM every [address] [...] At the time of re-consultation with Dr. Abarms, CT imaging shows stability of the 6 mm tumor ofthe uncinate process of the pancreas. 18. In August 2020, she did intermittent diarrhea that resembles steatorrhea but easily controlled with diet and [id number] medications. 19. Patient has been on octreotide injections 20 mg every 4 weeks for total of 12 cycles with the last dose in February 10. 20. In February, she presented to the emergency department with generalized weakness, shakiness and nearsyncopal episode. It was determined that she may have had hypoglycemia. After she contacted my office about this episode, I put a hold on the octreotide injection thinkingthat this caused her to have hypoglycemia. 21. In March, she was evaluated by Dr. Abrams for repeat surgical follow-up along with the CT scan of the abdomen pelvis. The CT scan showed stable 6 mm lesion in the pancreas. No other findings were noted. 22. At that visit, I decided to restart her on octreotide injections but at a lower dose at 10 mg IM every month. She has had 3 months of this lower dose therapy and has tolerated without any side effects. 23. Recently, Dr. Tuttle repeated EUS EGD over the past week. Endoscopic findings showed no abnormalities of the stomach or small bowel. Ultrasound evaluation showed a persistent 6 mm neuroendocrinelesion of the pancreas. This was stage is T1 N0 Interval Notes: I have reviewed: allergies, current [...] Exam: Vital Signs for this encounter: BSA: 1.8 meters squared BP 146/84 (BP Location: Right arm) Pulse 52 Ht 162.6 cm (5' 4 ) Wt 71.8 kg (158 lb 3.2 oz) BMI 27.15 kg/m?? Physical Exam Constitutional: Appearance: She is [...] Results: WBC Date Value Ref Range Status 06/27/2021 3.5 (L) 3.8 - 9.9 K/cumm Final Comment: Testing performed by: [address] [address] Hgb Date Value Ref Range Status 06/27/2021 12.0 11.9 - 15.5 g/dL Final Comment: Testing performed by: [address] [address] Hct Date Value Ref Range Status 06/27/2021 35.4 (L) 35.6 - 45.5 % Final Comment: Testing performed by: [address] [address] Plt Date Value Ref Range Status 06/27/2021 210 150 - 400 K/cumm Final Comment: Testing performed by: [address] [address] Creatinine Date Value Ref Range Status 06/27/2021 0.60 0.60 - 1.10 mg/dL Final Comment: Testing performed by: [address] [address] AST Date Value Ref Range Status 06/27/2021 32 10 - 45 Units/L Final Comment: Testing performed by: [address] [address] [address] scan of the chest, abdomen pelvis with contrast in March showed the followin. Stable 6 mm arterially hyperenhancing lesion in the uncinate process the pancreas likely a small neuroendocrine tumor. 2. No CT evidence for recurrent or metastatic disease in the abdomen or pelvis. documented in this encounter Plan of Treatment Not on file documented as of this encounter Results * (ABNORMAL) Comprehensive metabolic panel (10/29/2021 9:24 AM CAR JOCKEY) Sodium 143 135 - 145 mmol/L ANDREA Comment:Testing performed by : [address] [address] Potassium, pl 3.8 3.3 - 4.9 mmol/L ANDREA Comment:Testing performed by : [address] [address] Chloride 106 97 - 110 mmol/L ANDREA Comment:Testing performed by : [address] [address] CO2 34(H) 22 - 32 mmol/L ANDREA Comment:Testing performed by : [address] [address] Anion gap 3 2 - 15 mmol/L ANDREA Comment:Testing performed by : [address] [address] BUN 16 8 - 25 mg/dL ANDREA Comment:Testing performed by : [address] [address] Creatinine 0.60 0.60 - 1.10 mg/dL ANDREA Comment:Testing performed by : [address] [address] Glucose 104 70 - 199 mg/dL ANDREA Comment: Interpretive [...] was last revised 2017. Testing performed by: [address] [address] Calcium 9.5 8.5 - 10.3 mg/dL ANDREA Comment:Testing performed by : [address] [address] Bilirubin, total 0.5 0.1 - 1.2 mg/dL ANDREA Comment:Testing performed by : [address] [address] Protein, pl 7.2 6.5 - 8.5 g/dL ANDREA Comment:Testing performed by : [address] [address] Albumin 4.4 3.5 - 5.0 g/dL ANDREA Comment:Testing performed by : [address] [address] Alk phos 71 40 - 130 Units/L ANDREA Comment:Testing performed by : [address] [address] ALT 23 7 - 45 Units/L ANDREA Comment:Testing performed by : [address] [address] AST 26 10 - 45 Units/L [facility] Comment:Testing performed by : [address] [address] Blood 10/29/2021 9:24 AM CAR JOCKEY 10/29/2021 9:25 AM CAR JOCKEY us Vick Martinez DO LAB BLOOD ORDERABLES Final R esult ANDREA CASTILLO [address] [facility] Department of Laboratories [place], [place] [id number] * (ABNORMAL) CBC with auto differential (10/29/2021 9:24 AM CAR JOCKEY) [facility] WBC 3.7(L) 3.8 - 9.9 K/cumm ANDREA Comment:Testing performed by : [address], [address] Hgb 12.1 11.9 - 15.5 g/dL ANDREA Comment:Testing performed by : [address] [address] Hct 35.9 35.6 - 45.5 % ANDREA Comment:Testing performed by : [address] [address] Plt 239 150 - 400 K/cumm ANDREA Comment:Testing performed by : [address], [address] MPV 9.7 9.1 - 12.3 fL ANDREA Comment:Testing performed by : [address] [address] RBC 4.15 3.90 - 5.20 M/cumm ANDREA Comment:Testing performed by : [address] [address] MCV 86.5 81.3 - 96.4 fL ANDREA Comment:Testing performed by : [address], [address] MCH 29.2 27.1 - 33.3 pg ANDREA Comment:Testing performed by : [address] [address] MCHC 33.7 32.3 - 35.7 g/dL ANDREA Comment:Testing performed by : [address], [address] RDW CV 12.0 11.1 - 14.9 % ANDREA Comment:Testing performed by : [address] [address] RDW SD 38.1 35.7 - 48.1 fL ANDRAE Comment:Testing performed by : [address] [address] Blood 10/29/2021 9:24 AM CAR JOCKEY 10/29/2021 9:25 AM CAR JOCKEY Vick OliverosGregor Michelle DO LAB BLOOD ORDERABLES Final R esult Performing Organization Address [facility] Co de Phone Number ANDREA CASTILLO [address] [place] [address] * Gastrin (10/29/2021 9:24 AM CAR JOCKEY) Gastrin <10 pg/mL [facility] Comment: REFERENCE VALUE <100 Reference ranges valid for >= 8 hour fast. Test Performed by: [facility] [address] [place] [address] [place] [employer] Process: Bjorn Morris M.D. Ph.D.; CLIA# [id number] Testing performed by: [facility], [address] [place] [address]., [address] Blood 10/29/2021 9:24 AM CAR JOCKEY 10/29/2021 9:25 AM CAR JOCKEY Vick Troncosonti LAB BLOOD ORDERABLES Final [facility] Performing Organization Address [facility] de Phone Number ANDREA [address] [place] [address] * Chromogranin A (10/29/2021 9:24 AM CAR JOCKEY) Chromogranin A 20 <93 ng/mL [facility] Comment: ADDITIONAL INFORMATION This test was developed and its performance characteristics determined by [facility] in a manner consistent with CLIA requirements. This test has not been cleared or approved by the U.S. Food and Drug Administration. The testing method is a homogeneous time-resolved immunofluorescent assay manufactured by [employer] and performed on the The Z[employer] Compact Plus. ? Values obtained with different assay methods or kits may be different and cannot be used interchangeably. ? Test results cannot be interpreted as absolute evidence for the presence or absence of malignant disease. Test Performed by: [facility] [address] [place] [address] [employer] Process: Bjorn Morris M.D. Ph.D.; CLIA# [id number] Testing performed by: [address] [address] Blood 10/29/2021 9:24 AM CAR JOCKEY 10/29/2021 9:25 AM CAR JOCKEY us Vick Martinez DO LAB BLOOD ORDERABLES Final R esult ANDREA [address] [facility] Department [place] [address] * Comprehensive metabolic panel (09/24/2021 10:00 AM CAR JOCKEY) Sodium 138 135 - 145 mmol/L ANDREA Comment:Testing performed by : [address] [address] Potassium, pl 4.8 3.3 - 4.9 mmol/L ANDREA Comment:Testing performed by : [address] [address] Chloride 103 97 - 110 mmol/L ANDREA Comment:Testing performed by : [address] [address] CO2 28 22 - 32 mmol/L ANDREA Comment:Testing performed by : [address] [address] Anion gap 7 2 - 15 mmol/L ANDREA Comment:Testing performed by : [address] [address] BUN 19 8 - 25 mg/dL ANDREA Comment:Testing performed by : [address] [address] Creatinine 0.70 0.60 - 1.10 mg/dL ANDREA Comment:Testing performed by : [address] [address] Glucose 114 70 - 199 mg/dL ANDREA [...] was last revised 2017. Testing performed by: [address] [address] Calcium 9.4 8.5 - 10.3 mg/dL [facility] Comment:Testing performed by : [address] [address] Bilirubin, total 0.3 0.1 - 1.2 mg/dL [facility] Comment:Testing performed by : [address] [address] Protein, pl 7.7 6.5 - 8.5 g/dL [facility] Comment:Testing performed by : [address] [address] Albumin 4.5 3.5 - 5.0 g/dL [facility] Comment:Testing performed by : [address] [address] Alk phos 83 40 - 130 Units/L [facility] Comment:Testing performed by : [address] [address] ALT 26 7 - 45 Units/L [facility] Comment:Testing performed by : [address] [address] AST 28 10 - 45 Units/L [facility] Comment:Testing performed by : [address] [address] Blood 09/24/2021 10:0 0 AM CAR JOCKEY 09/24/2021 10:02 AM CAR JOCKEY us Vick Martinez DO LAB BLOOD ORDERABLES Final R esult ANDREA CASTILLO [address] [facility] Department [place] [address] * CBC with auto differential (09/24/2021 10:00 AM CAR JOCKEY) WBC 4.3 3.8 - 9.9 K/cumm ANDREA CASTILLO Comment:Testing performed by : [address] [address] Hgb 12.5 11.9 - 15.5 g/dL ANDREA Comment:Testing performed by : [address] [address] Hct 37.4 35.6 - 45.5 % ANDREA CASTILLO Comment:Testing performed by : [address] [address] Plt 258 150 - 400 K/cumm ANDREA CASTILLO Comment:Testing performed by : [address] [address] MPV 9.5 9.1 - 12.3 fL ANDREA Comment:Testing performed by : [address] [address] RBC 4.33 3.90 - 5.20 M/cumm ANDREA CASTILLO Comment:Testing performed by : [address] [address] MCV 86.4 81.3 - 96.4 fL ANDREA CASTILLO Comment:Testing performed by : [address] [address] MCH 28.9 27.1 - 33.3 pg ANDREA CASTILLO Comment:Testing performed by : [address] [address] MCHC 33.4 32.3 - 35.7 g/dL ANDREA Comment:Testing performed by : [address], [address] RDW CV 12.1 11.1 - 14.9 % ANRDEA Comment:Testing performed by : [address], [address] RDW SD 38.3 35.7 - 48.1 fL ANDREA Comment:Testing performed by : [address] [place]., [address] Blood 09/24/2021 10:0 0 AM CAR JOCKEY 09/24/2021 10:02 AM CAR JOCKEY Vick OliverosGregor Michelle LAB BLOOD ORDERABLES Final R esult Performing Organization Address [facility] de Phone Number ANDREA [facility] [place] [address] * Gastrin (09/24/2021 10:00 AM CAR JOCKEY) Gastrin <10 pg/mL MAYITAVO Comment: REFERENCE VALUE <100 Reference ranges valid for >= 8 hour fast. Test Performed by: [place] [address] [employer] Process: Bjorn Morris M.D. Ph.D.; CLIA# [id number] Testing performed by: [facility], [address] [place] [address]., [address] Blood 09/24/2021 10:0 0 AM CAR JOCKEY 09/24/2021 10:02 AM CAR JOCKEY Vick OliverosGregor Martinez LAB BLOOD ORDERABLES Final [facility] Performing Organization Address [facility] de Phone Number ANDREA [address] [place] [address] * Chromogranin A (09/24/2021 10:00 AM CAR JOCKEY) Chromogranin A 22 <93 ng/mL AMY[facility] Comment: ADDITIONAL INFORMATION This test was developed and its performance characteristics determined by [facility] in a manner consistent with CLIA requirements. This test has not been cleared or approved by the U.S. Food and Drug Administration. The testing method is a homogeneous time-resolved immunofluorescent assay manufactured by [employer] and performed on the The [employer] Kryptor Compact Plus. ? Values obtained with different assay methods or kits may be different and cannot be used interchangeably. ? Test results cannot be interpreted as absolute evidence for the presence or absence of malignant disease. Test Performed by: [facility] [address] [place] [address] [employer] Process: Bjorn Morris M.D. Ph.D.; CLIA# [id number] Testing performed by: [address] [address] Blood 09/24/2021 10:0 0 AM CAR JOCKEY 09/24/2021 10:02 AM CAR JOCKEY us Vick Martinez DO LAB BLOOD ORDERABLES Final R esult [facility] [address] [facility] Department [place] [address] * Comprehensive metabolic panel (08/27/2021 9:37 AM CAR JOCKEY) Sodium 142 135 - 145 mmol/L ANDREA Comment:Testing performed by : [address] [address] Potassium, pl 4.2 3.3 - 4.9 mmol/L ANDREA Comment:Testing performed by : [address] [address] Chloride 107 97 - 110 mmol/L ANDREA Comment:Testing performed by : [address] [address] CO2 29 22 - 32 mmol/L ANDREA Comment:Testing performed by : [address] [address] Anion gap 6 2 - 15 mmol/L ANDREA Comment:Testing performed by : [address] [address] BUN 16 8 - 25 mg/dL ANDREA Comment:Testing performed by : [address] [address] Creatinine 0.60 0.60 - 1.10 mg/dL ANDREA Comment:Testing performed by : [address] [address] Glucose 103 70 - 199 mg/dL ANDREA Comment: Interpretive [...] was last revised 2017. Testing performed by: [address] [address] Calcium 9.4 8.5 - 10.3 mg/dL [facility] Comment:Testing performed by : [address] [address] Bilirubin, total 0.4 0.1 - 1.2 mg/dL [facility] Comment:Testing performed by : [address] [address] Protein, pl 7.2 6.5 - 8.5 g/dL [facility] Comment:Testing performed by : [address] [address] Albumin 4.2 3.5 - 5.0 g/dL [facility] Comment:Testing performed by : [address] [address] Alk phos 65 40 - 130 Units/L [facility] Comment:Testing performed by : [address] [address] ALT 15 7 - 45 Units/L [facility] Comment:Testing performed by : [address] [address] AST 22 10 - 45 Units/L ANDREA Comment:Testing performed by : [address] [address] Blood 08/27/2021 9:3 7 AM CAR JOCKEY 08/27/2021 9:44 AM CAR JOCKEY us Vick Martinez DO LAB BLOOD ORDERABLES Final R esult ANDREA [address] [facility] Department [place] [address] * (ABNORMAL) CBC with auto differential (08/27/2021 9:37 AM CAR JOCKEY) Pathologist [facility] WBC 3.6(L) 3.8 - 9.9 K/cumm ANDREA Comment:Testing performed by : [address] [address] Hgb 12.1 11.9 - 15.5 g/dL ANDREA Comment:Testing performed by : [address] [address] Hct 36.0 35.6 - 45.5 % ANDREA Comment:Testing performed by : [address] [address] Plt 242 150 - 400 K/cumm ANDREA Comment:Testing performed by : [address] [address] MPV 9.8 9.1 - 12.3 fL ANDREA Comment:Testing performed by : [address] [address] RBC 4.19 3.90 - 5.20 M/cumm ANDREA Comment:Testing performed by : [address] [address] MCV 85.9 81.3 - 96.4 fL ANDREA Comment:Testing performed by : [address] [address] MCH 28.9 27.1 - 33.3 pg ANDREA Comment:Testing performed by : [address] [address] MCHC 33.6 32.3 - 35.7 g/dL ANDREA Comment:Testing performed by : [address] [address] RDW CV 12.0 11.1 - 14.9 % ANDREA Comment:Testing performed by : [facility], [address] [place] [address]., [address] RDW SD 37.7 35.7 - 48.1 fL ANDREA Comment:Testing performed by : [facility], [address] [place] [address]., [address] Blood 08/27/2021 9:37 AM CAR JOCKEY 08/27/2021 9:44 AM CAR JOCKEY Vick Martinez LAB BLOOD ORDERABLES Final R esult Performing Organization Address [facility] de Phone Number [address] [place] [address] * Gastrin (08/27/2021 9:37 AM CAR JOCKEY) Gastrin <10 pg/mL ANDREA Comment: REFERENCE VALUE <100 Reference ranges valid for >= 8 hour fast. Test Performed by: [place] [address] [employer] Process: Bjorn Morris M.D. Ph.D.; CLIA# [id number] Testing performed by: [address] [address] Blood 08/27/2021 9:37 AM CAR JOCKEY 08/27/2021 9:44 AM CAR JOCKEY Vick DomoGregor Martinez [facility] BLOOD ORDERABLES Final R esult Performing Organization Address [facility] de Phone Number [address] [place] [address] * Chromogranin A (08/27/2021 9:37 AM CAR JOCKEY) Chromogranin A <20 <93 ng/mL ANDREA Comment: ADDITIONAL INFORMATION This test was developed and its performance characteristics determined by [facility] in a manner consistent with CLIA requirements. This test has not been cleared or approved by the U.S. Food and Drug Administration. The testing method is a homogeneous time-resolved immunofluorescent assay manufactured by [employer] and performed on the [employer] Kryptor Compact Plus. ? Values obtained with different assay methods or kits may be different and cannot be used interchangeably. ? Test results cannot be interpreted as absolute evidence for the presence or absence of malignant disease. Test Performed by: [facility] [address] [place] [address] [employer] Process: Bjorn Morris M.D. Ph.D.; CLIA# [id number] Testing performed by: [address] [address] Blood 08/27/2021 9:37 AM CAR JOCKEY 08/27/2021 9:44 AM CAR JOCKEY us Vick Martinez DO LAB BLOOD ORDERABLES Final R esult ANDREA [address] [facility] Department [place] [address] * Comprehensive metabolic panel (07/30/2021 8:52 AM CDT) Sodium 139 135 - 145 mmol/L ANDREA Comment:Testing performed by : [address] [address] Potassium, pl 4.3 3.3 - 4.9 mmol/L ANDREA CASTILLO Comment:Testing performed by : [address] [address] Chloride 105 97 - 110 mmol/L ANDREA CASTILLO Comment:Testing performed by : [address] [address] CO2 29 22 - 32 mmol/L ANDREA Comment:Testing performed by : [address] [address] Anion gap 5 2 - 15 mmol/L ANDREA CASTILLO Comment:Testing performed by : [address] [address] BUN 16 8 - 25 mg/dL ANDREA Comment:Testing performed by : [address] [address] Creatinine 0.60 0.60 - 1.10 mg/dL ANDREA Comment:Testing performed by : [address] [address] Glucose 121 70 - 199 mg/dL ANDREA [...] was last revised 2017. Testing performed by: [address] [address] Calcium 9.3 8.5 - 10.3 mg/dL ANDREA Comment:Testing performed by : [address] [address] Bilirubin, total 0.4 0.1 - 1.2 mg/dL ANDREA Comment:Testing performed by : [address] [address] Protein, pl 6.9 6.5 - 8.5 g/dL ANDREA Comment:Testing performed by : [address] [address] Albumin 4.3 3.5 - 5.0 g/dL ANDREA Comment:Testing performed by : [address] [address] Alk phos 66 40 - 130 Units/L ANDREA Comment:Testing performed by : [address] [address] ALT 38 7 - 45 Units/L ANDREA Comment:Testing performed by : [address] [address] AST 32 10 - 45 Units/L ANDREA Comment:Testing performed by : [address] [address] Blood 07/30/2021 8:52 AM CDT 07/30/2021 8:54 AM CDT Vick Martinez DO LAB BLOOD ORDERABLES Final R esult ANDREA [address] [facility] Department [place] [address] * (ABNORMAL) CBC with auto differential (07/30/2021 8:52 AM CDT) WBC 3.3(L) 3.8 - 9.9 K/cumm ANDREA Comment:Testing performed by : [address] [address] Hgb 11.6(L) 11.9 - 15.5 g/dL ANDREA Comment:Testing performed by : [address] [address] Hct 34.8(L) 35.6 - 45.5 % ANDREA Comment:Testing performed by : [address] [address] Plt 231 150 - 400 K/cumm ANDREA Comment:Testing performed by : [address] [address] MPV 9.4 9.1 - 12.3 fL ANDREA Comment:Testing performed by : [address] [address] RBC 3.98 3.90 - 5.20 M/cumm ANDREA Comment:Testing performed by : [address] [address] MCV 87.4 81.3 - 96.4 fL ANDREA CASTILLO Comment:Testing performed by : [address], [address] MCH 29.1 27.1 - 33.3 pg ANDREA CASTILLO Comment:Testing performed by : [facility], [address] [place] [address]., [address] MCHC 33.3 32.3 - 35.7 g/dL ANDREA CASTILLO Comment:Testing performed by : [address] [address] RDW CV 12.1 11.1 - 14.9 % ANDREA CASTILLO Comment:Testing performed by : [address] [address] RDW SD 38.5 35.7 - 48.1 fL ANDREA CASTILLO Comment:Testing performed by : [address] [address] Blood 07/30/2021 8:52 AM CDT 07/30/2021 8:54 AM CDT Vick Martinez LAB BLOOD ORDERABLES Final R esult Performing Organization Address [facility] de Phone Number ANDREA [address] [place] [address] * Gastrin (07/30/2021 8:52 AM CDT) [facility] Signature Gastrin 12 pg/mL ANDREA CASTILLO Comment: REFERENCE VALUE <100 Reference ranges valid for >= 8 hour fast. Test Performed by: [facility] [address] [place] [address] [address] Wet Process: Bjorn Morris M.D. Ph.D.; CLIA# [id number] Testing performed by: [address] [address] Blood 07/30/2021 8:52 AM CDT 07/30/2021 8:54 AM CDT Vick Martinez DO LAB BLOOD ORDERABLES Final R esult Performing Organization Address [facility] de Phone Number ANDREA MH [address] [place] [address] * Chromogranin A (07/30/2021 8:52 AM CDT) Chromogranin A 25 <93 ng/mL ANDREA CASTILLO Comment: ADDITIONAL INFORMATION This test was developed and its performance characteristics determined by [facility] in a manner consistent with CLIA requirements. This test has not been cleared or approved by the U.S. Food and Drug Administration. The testing method is a homogeneous time-resolved immunofluorescent assay manufactured by [employer] and performed on the Kudoalaor Compact Plus. ? Values obtained with different assay methods or kits may be different and cannot be used interchangeably. ? Test results cannot be interpreted as absolute evidence for the presence or absence of malignant disease. Test Performed by: [place] [address] [address] [employer] Process: Bjorn Morris M.D. Ph.D.; CLIA# [id number] Testing performed by: [facility], [address] [place] [address]., [address] Blood 07/30/2021 8:52 AM CDT 07/30/2021 8:54 AM CDT us Vick Martinez DO LAB BLOOD ORDERABLES Final R esult ANDREA [address] [facility] Department [place] [address] documented in this encounter Visit Diagnoses Diagnosis Malignant carcinoid tumor of stomach (HCC)- Primary Malignant carcinoid tumor of the stomach documented in this encounter Orders Appointment Requests Count Last Ordered Date Fi rst Ordered Date ONCBCN CLINIC APPOINTMENT REQUEST 2 022 06/27/2021 ONCBCN INJECTION APPOINTMENT REQUEST 4 10/1807/30/2021 ONCBCN LAB APPOINTMENT 4 10/29/202107/30 documented in this encounter Care Teams Per Diem Relationship Specialty Start Date End Date Elizabeth Borrego PA [address] [place], [place] [id number] PCP - General Internal Medicine 03/25/20 09/27/23 Luann Lawrence, MIRROR INSPECTOR Nurse Practitioner Nurse Practitioner 01/06/19 Adarsh Tuttle MD [address] [facility] [address] [place] [address] Consulting Physician Gastroenterology 02/22/19 Vick Martinez DO [facility] [address] Medical Oncologist/Surveillance Specialist Hematology and Oncology 02/22/19 Guru Winters DO [facility] [address] Consulting Physician Gastroenterology 02/22/19 Gato Abrams MD [address] [place] [address] Surgeon Surgical Oncology 09/07/19 Marina Rosales MD [address] [place] [address] Consulting Physician General Surgery 03/24/21 documented as of this encounter
--- OUTSIDE RECORDS SUMMARY | 2024-10-04 03:02 | XMS_ITS | Encounter Summary ---
Author Organization [facility] Address [address] [place] [address] Phone Care Team Providers Care Softball Coach Name Role Phone Luann Lawrence MANAGER UNION Unavailable [phone] Adarsh Tuttle MD Unavailable [phone] Sebastien Martinez DO Unavailable [phone] Guru Winters DO Unavailable [phone] Gato Abrams MD Unavailable [phone] Elizabeth Borrego Primary Care Provider [phone] Encounter Details Date Type Department Care Team (Late st Contact Info) Description 12/16/2020 Orders Only [facility] Oncology [address] [facility] [address] [place] [phone] Sebastien Martinez, DO [address] [facility] [address] [place] [address] Malignant carcinoid tumor of stomach [...] on file 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:22 AM 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 Gender Identity Female 06/07/2020 8:39 AM CDT Sexual Orientation Not on file 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 Not on file [...] documented as of this encounter Care Teams Softball Coach Relationship Specialty Start Date End Date Elizabeth Borrego PA [address] [facility] [address] [place], [place] [phone] PCP - General Internal Medicine 03/25/20 09/27/23 Luann Lawrence, ANUP Nurse Practitioner Nurse Practitioner 01/06/19 Adarsh Tuttle MD [address] [facility] [address] [place] [address] Consulting Physician Gastroenterology 02/22/19 Sebastien Martinez DO [address] [place] [id number] Medical Oncologist/City Mail Carrier Hematology and Oncology 02/22/19 Guru Winters DO [address] [place] [id number] Consulting Physician Gastroenterology 02/22/19 Gato Abrams MD [address] [place] [address] Surgeon Surgical Oncology 09/07/19 documented as of this encounter
--- OUTSIDE RECORDS SUMMARY | 2024-10-04 03:02 | XMS_ITS | Encounter Summary ---
Author Organization [facility] Address [address] [facility] [address] [place] [address] Phone Care Team Providers Care Draw Off Worker Name Role Phone Luann Lawrence ANUP Unavailable [phone] Adarsh Tuttle MD Unavailable [phone] Sebastien Martinez DO Unavailable [phone] Guru Winters DO Unavailable [phone] Gato Abrams MD Unavailable [phone] Elizabeth Borrego Primary Care Provider [phone] Marina Rosales MD Unavailable [phone] Reason for Visit * Reason Comments Return Patient Encounter Details Date Type Department Care Team (Late st Contact Info) Description 03/24/2021 1:15 PM CDT Office Visit [facility] Surgery [address] [facility] Advanced Medicine 8th [place] [address] [place] [id number] Gato Abrams MD [address] [facility] [id number] [place] [address] Malignant carcinoid tumor of stomach (CMS/HCC) (Primary [...] file 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:22 AM 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 Gato Abrams M.D., F.A.C.S. Chief, Section of Surgical Oncology anatomic pathology manager [facility] [employer] - voice - fax USPS Mailing Address: Overnight Mailing Address: [address] [place] [address] [place] [address] for [facility], [address] [place], [place] [address] [place], [place] [address] FOLLOW-UP VISIT DATE OF VISIT: 03/24/21 REASON FOR VISIT: Ms. Gibson presents today [...] Ms. Gibson has been doing well. She had COVID 19 earlier this year (July) and has made a full recovery. She denies abdominal pain, nausea or vomiting. Her urine and bowel function are normal; she does have some episodic diarrhea. Her weight has been stable. She had her incisional hernia repaired by Dr. Rosales in April, and has recovered well. She recently had a hypoglycemic episode (02/24) for which she went to her local ER. They contacted Dr. Martinez and decided to hold her octreotide until she follows up with him this Wednesday (therefore her last i njection was 02/10/21). Her last EGD was in the end of September/beginning of April at an OSH. She also had a screening colonoscopy in 12/09/20. 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 Martinez. Ms. Gibson underwent a pancreas-protocol CT scan today, which I ordered and have personally reviewed, demonstrating no recurrent or metastatic disease and a stable pancreatic nodule in the uncinate. PHYSICAL EXAMINATION: VITAL SIGNS: There were no vitals taken for this visit. GENERAL: Alert and oriented x 3 in no apparent distress. HEENT: EOMI. Wearing a mask. No cervical or supraclavicular adenopathy. . ABDOMEN: Soft, nontender, nondistended with no masses or hernias. No hepatosplenomegaly. No reboundor guarding. Lap sites are well healed. EXTREMITIES: No pedal edema. Warm and well perfused. NEUROLOGIC: No focal deficits. PSYCHIATRIC: Within normal limits. ASSESSMENT: 55 y.o. female who is doing well after [...] lesion. She should have a repeat endoscopy in the next 1-2 months for continued endoscopic surveillance ofher stomach for new carcinoid tumors, which can be arranged with Dr. Tuttle or Singh. I answered a ll of Ms. Gibson's questions to her satisfaction. ATTENDING ATTESTATION: I, Gato Abrams M.D., the attending surgeon have seen and examined the patient both with Dr. Lomax and independently. I agree with the history, physical exam, and findings as described in the above note. My total encounter time on 03/24/2021 was 41 minutes which was spent in the activities documented in the note. This includes time spent prior to the visit and after the visit in direct care of the patient. This time does not include time spent in any separately reportable services. Gato Abrams M.D., F.A.C.S. Chief, Section of Surgical Oncology anatomic pathology manager CC: Patient Care Team: Elizabeth Borrego PA as PCP - General (Internal Medicine) Luann Lawrence NP as Nurse Practitioner (Nurse Practitioner) Adarsh Tuttle MD as Consulting Physician (Gastroenterology) Sebastien Martinez DO as Medical Oncologist/Enrollment Consultant (Hematology and Oncology) Guru Winters DO as Consulting Physician (Gastroenterology) Gato Abrams MD as Surgeon (Surgical Oncology) Marina Rosales MD as Consulting Physician (General Surgery) Freight Car [employer] completed by [employer]. [employer] variances may occur. documented in this encounter Plan of Treatment Not on file documented as of this encounter Visit Diagnoses Diagnosis Malignant carcinoid tumor of stomach (HCC)- Primary Malignant carcinoid tumor of the stomach documented in this encounter Care Teams Draw Off Worker Relationship Specialty Start Date End Date Elizabeth Borrego PA [address] [facility] [address] [place] [address] PCP - General Internal Medicine 03/25/20 09/27/23 Luann Lawrence NP Nurse Practitioner Nurse Practitioner 01/06/19 Adarsh Tuttle MD [address] [facility] [address] [place] [address] Consulting Physician Gastroenterology 02/22/19 Sebastien Martinez DO [address] [address] Medical Oncologist/Enrollment Consultant Hematology and Oncology 02/22/19 Guru Winters DO [address] [address] Consulting Physician Gastroenterology 02/22/19 Gato Abrams MD [address] [facility] 180 [place] [address] Surgeon Surgical Oncology 09/07/19 Marina Rosales MD [address] [facility] 500 [place], [place] [id number] Consulting Physician General Surgery 03/24/21 documented as of this encounter
--- OUTSIDE RECORDS SUMMARY | 2024-10-04 03:02 | XMS_ITS | Encounter Summary ---
Author Organization [facility] Address [address] [place] [address] Phone Care Team Providers Care Metal Crafts Teacher Name Role Phone Luann Lawrence ANUP Unavailable [phone] Adarsh Tuttle MD Unavailable [phone] Vick Li DO Unavailable [phone] Guru Winters DO Unavailable [phone] Gato Abrams MD Unavailable [phone] Elizabeth Borrego Primary Care Provider [phone] Marina Rosales MD Unavailable [phone] Reason for Visit * Reason Comments Follow-up Encounter Details Date Type Department Care Team (Late st Contact Info) Description 03/28/2021 10:15 AM CDT Office Visit [facility] [address] [place] [address] [address] [place] [address] Vick Li, DO [address] [address] Malignant carcinoid tumor of stomach [...] on file 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:22 AM P D DRIVER Gender Identity Female 06/07/2020 8:39 AM CDT Sexual Orientation Not on file 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 female. Primary Care Provider: Elizabeth Borrego PA Assessment/Plan 1. 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 2. Pernicious anemia. 3. Localized pancreatic neuroendocrine tumor. 4. Octreotide induced steatorrhea and hypoglycemia Recommendations: 1. At this visit, recent CT scan shows stability of 6 mm lesion of the uncinate process of the pancreas which corresponds to benefit and efficacy with the current somatostatin analog injections. 2. I will refer her to Dr. Tuttle for repeat upper endoscopy to continue follow and monitor gastric carcinoid tumors. This will be scheduled in the next 4 weeks or so. 3. Due to the recent hypoglycemia episode, I will cut back on the dose of the octreotide down to 10mg IM every 4 weeks. I also recommend for her to continue to take in significant amount of glucose and calories to avoid any further symptomatic hypoglycemia. 4. I will see her back here in 3 months with repeat labs and examination. She will continue with indefinite use of octreotide medication for her metastatic carcinoid tumor. My total encounter time on 03/28/2021 was 20 minutes which was spent in [...] Follow up; VICK LI; Clinic Appointment Location: [facility] - Ambulatory referral to Gastroenterology; Future - Lab Draw Appt Request Arm [...] [facility]; Future - Injection Appointment Request Is this the patient's first treatment? No; What is your ordering location? [facility] IM Onc/Hem/BMT; Where will this patient receive treatment? [facility]; Future - Clinic Appointment Request Follow up; VICK LI; Clinic Appointment Location: [facility] IM ONC MHE2 180; Future - Lab Draw Appt Request Arm Draw or Central Line Draw? Arm; What is your ordering location? [facility]c/Hem/BMT; Where will this patient receive treatment? [facility]; Future - Injection Appointment Request Is this the patient's first treatment? No; What is your ordering location? [facility]c/Hem/BMT; Where will this patient receive treatment? [facility]; Future - CBC with auto differential; Future - Comprehensive metabolic panel; Future - CBC with auto differential; Future - Comprehensive metabolic panel; Future - CBC with auto differential; Future - Comprehensive metabolic panel; Future - Chromogranin A; Future - Gastrin; [...] was then referred to Dr. Tuttle at [facility] for EUS evaluation. Thiswas performed on [...] Gato Abrams in Surgical Oncology Department at [facility]. 8. On February 24, 2019, [...] A in May was better but still [id number]. 12. In May of 2019, we had [...] decided to proceed with medical therapy using [id number] mg IM every [address] [...] steatorrhea but easily controlled with diet and [id number] medications. 19. Patient has been on octreotide [...] this caused her to have hypoglycemia. 21. She has recently seen Dr. Abrams for repeat surgical follow-up along with the CT scan of the abdomen pelvis performed this past week. She feels very well at this visit without any complaints or problems. Interval Notes: I have reviewed: allergies, current medications, past family history, past medical history, past social history, past surgical history and problem list HPI Review of Systems Constitutional: Negative. Negative for appetite change and chills. HENT: Negative. Eyes: Negative. Respiratory: Negative. Cardiovascular: Negative. Gastrointestinal: Positive for diarrhea. Endocrine: Negative. Genitourinary: Negative. Skin: Negative. Neurological: Positive for dizziness and light-headedness. Hematological: Negative. Psychiatric/Behavioral: Negative. Pain: negative. Objective Physical Exam: Vital Signs for this encounter: BSA: 1.76 meters squared BP 124/79 (BP Location: Right arm) Pulse 58 Ht 162.6 cm (5' 4 ) Wt 68.3 kg (150 lb 9.6 oz) SpO2 97% BMI 25.85 kg/m?? Physical Exam Constitutional: Appearance: She is [...] Results: WBC Date Value Ref Range Status 02/26/2021 3.5 (L) 3.8 - 9.9 X10 3/ul Final 05/13/2020 5.7 3.8 - 9.9 K/cumm Final Hgb Date Value Ref Range Status 05/13/2020 11.0 (L) 11.9 - 15.5 g/dL Final Hemoglobin Date Value Ref Range Status 02/26/2021 13.0 11.9 - 15.5 g/dL Final Hct Date Value Ref Range Status 02/26/2021 38.8 35.6 - 45.5 % Final 05/13/2020 32.8 (L) 35.6 - 45.5 % Final Plt Date Value Ref Range Status 05/13/2020 216 150 - 400 K/cumm Final Plt Count Date Value Ref Range Status 02/26/2021 267 150 - 400 x10 3/ul Final Creatinine Date Value Ref Range Status 02/26/2021 0.7 0.5 - 1.1 mg/dL Final Comment: NOTE: Estimated GFR (Cockroft-Gault) will NOT be calculated unless patient Height and Weight were entered. Also, Kidney Disease Stage (GFR) and Estimated GFR (Cockroft-Gault) will NOT be calculated if Creatinine result is <0.2. 05/13/2020 0.82 0.60 - 1.10 mg/dL Final AST Date Value Ref Range Status 02/26/2021 30 0 - 32 U/L Final 08/24/2019 38 [...] encounter Results * (ABNORMAL) Comprehensive metabolic panel (06/27/2021 8:46 AM CDT) Sodium 142 135 - 145 mmol/L ANDREA Comment:Testing performed by : [facility], [address] [place] [address]., [address] Potassium, pl 4.3 3.3 - 4.9 mmol/L ANDREA Comment:Testing performed by : [address], [place]., [address] Chloride 105 97 - 110 mmol/L ANDREA Comment:Testing performed by : [address], [place]., [address] CO2 34(H) 22 - 32 mmol/L ANDREA Comment:Testing performed by : [address] [address] Anion gap 3 2 - 15 mmol/L ANDREA Comment:Testing performed by : [address], [place]., [address] BUN 19 8 - 25 mg/dL [facility] Comment:Testing performed by : [address] [address] Creatinine 0.60 0.60 - 1.10 mg/dL [facility] Comment:Testing performed by : [address] [address] Glucose 115 70 - 199 mg/dL [facility] Comment: Interpretive Data Fasting glucose [...] was last revised 2017. Testing performed by: [address] [address] Calcium 9.6 8.5 - 10.3 mg/dL ANDREA CASTILLO Comment:Testing performed by : [address] [address] Bilirubin, total 0.4 0.1 - 1.2 mg/dL ANDREA Comment:Testing performed by : [address] [address] Protein, pl 6.6 6.5 - 8.5 g/dL ANDREA Comment:Testing performed by : [address] [address] Albumin 4.5 3.5 - 5.0 g/dL ANDREA Comment:Testing performed by : [address] [address] Alk phos 71 40 - 130 Units/L ANDREA Comment:Testing performed by : [address] [address] ALT 30 7 - 45 Units/L ANDREA Comment:Testing performed by : [address] [address] AST 32 10 - 45 Units/L ANDREA Comment:Testing performed by : [address] [address] Blood 06/27/2021 8:46 AM CDT 06/27/2021 8:49 AM CDT Vick Li DO LAB BLOOD ORDERABLES Final R esult ANDREA [address] [facility] Department [place] [address] * (ABNORMAL) CBC with auto differential (06/27/2021 8:46 AM CDT) [facility] WBC 3.5(L) 3.8 - 9.9 K/cumm ANDREA CASTILLO Comment:Testing performed by : [address] [address] Hgb 12.0 11.9 - 15.5 g/dL ANDREA CASTILLO Comment:Testing performed by : [address] [address] Hct 35.4(L) 35.6 - 45.5 % ANDREA Comment:Testing performed by : [address] [address] Plt 210 150 - 400 K/cumm ANDREA Comment:Testing performed by : [address] [address] MPV 9.5 9.1 - 12.3 fL ANDREA Comment:Testing performed by : [address] [address] RBC 4.08 3.90 - 5.20 M/cumm ANDREA Comment:Testing performed by : [address], [address] MCV 86.8 81.3 - 96.4 fL ANDREA Comment:Testing performed by : [address] [address] MCH 29.4 27.1 - 33.3 pg ANDREA Comment:Testing performed by : [address], [address] MCHC 33.9 32.3 - 35.7 g/dL ANDREA Comment:Testing performed by : [address], [address] RDW CV 11.9 11.1 - 14.9 % ANDREA Comment:Testing performed by : [address] [address] RDW SD 37.3 35.7 - 48.1 fL ANDREA Comment:Testing performed by : [address], [address] Blood 06/27/2021 8:46 AM CDT 06/27/2021 8:49 AM CDT us Vick Li DO LAB BLOOD ORDERABLES Final R esult ANDREA CASTILLO [address] [facility] Department [place] [address] * Gastrin (06/27/2021 8:46 AM CDT) [facility] Gastrin <10 pg/mL ANDREA CASTILLO Comment: REFERENCE VALUE <100 Reference ranges valid for >= 8 hour fast. Test Performed by: [facility] [place] [address] Arch Support Technician: Bjorn Morris M.D. Ph.D.; CLIA# [id number] Testing performed by: [facility], [address] [place] [address]., [address] Blood 06/27/2021 8:46 AM CDT 06/27/2021 8:49 AM CDT us Vick Li DO LAB BLOOD ORDERABLES Final R esult ANDREA 7[address] [facility] Department [place] [address] * Chromogranin A (06/27/2021 8:46 AM CDT) Pathologist [facility] Chromogranin A <20 <93 ng/mL ANDREA Comment: ADDITIONAL INFORMATION This test was developed and its performance characteristics determined by [facility] in a manner consistent with CLIA requirements. This test has not been cleared or approved by the U.S. Food and Drug Administration. The testing method is a homogeneous time-resolved immunofluorescent assay manufactured by [employer] and performed on the [employer]TE[employer] Kryptor Compact Plus. ? Values obtained with different assay methods or kits may be different and cannot be used interchangeably. ? Test results cannot be interpreted as absolute evidence for the presence or absence of malignant disease. Test Performed by: [facility] [place] [id number] Arch Support Technician: Bjorn Morris M.D. Ph.D.; CLIA# [id number] Testing performed by: [address] [address] Blood 06/27/2021 8:46 AM CDT 06/27/2021 8:49 AM CDT Vikc Li DO LAB BLOOD ORDERABLES Final R esult [facility] 0606 [facility] Department [place] [address] * Comprehensive metabolic panel (05/30/2021 9:00 AM CDT) Sodium 140 135 - 145 mmol/L ANDREA Comment:Testing performed by : [address] [address] Potassium, pl 3.9 3.3 - 4.9 mmol/L ANDREA Comment:Testing performed by : [address] [address] Chloride 104 97 - 110 mmol/L ANDREA Comment:Testing performed by : [address] [address] CO2 30 22 - 32 mmol/L ANDREA Comment:Testing performed by : [address] [address] Anion gap 6 2 - 15 mmol/L ANDREA Comment:Testing performed by : [address] [address] BUN 16 8 - 25 mg/dL ANDREA Comment:Testing performed by : [address] [address] Creatinine 0.70 0.60 - 1.10 mg/dL ANDREA Comment:Testing performed by : [address] [address] Glucose 147 70 - 199 mg/dL ANDREA Comment: Interpretive [...] was last revised 2017. Testing performed by: [address] [address] Calcium 9.8 8.5 - 10.3 mg/dL ANDREA Comment:Testing performed by : [address] [address] Bilirubin, total 0.4 0.1 - 1.2 mg/dL [facility] Comment:Testing performed by : [address] [address] Protein, pl 6.7 6.5 - 8.5 g/dL ANDREA Comment:Testing performed by : [address] [address] Albumin 4.4 3.5 - 5.0 g/dL [facility] Comment:Testing performed by : [address] [address] Alk phos 67 40 - 130 Units/L [facility] Comment:Testing performed by : [address] [address] ALT 21 7 - 45 Units/L [facility] Comment:Testing performed by : [address] [address] AST 24 10 - 45 Units/L [facility] Comment:Testing performed by : [address] [address] Blood specimen (specimen) 05/30/2021 9:00 AM CDT 05/30/2021 9:02 AM CDT us Vick Li DO LAB BLOOD ORDERABLES Final R esult [facility]REA CASTILLO [address]81 [facility] Department [place] [address] * (ABNORMAL) CBC with auto differential (05/30/2021 9:00 AM CDT) WBC 3.4(L) 3.8 - 9.9 K/cumm ANDREA Comment:Testing performed by : [address] [address] Hgb 12.5 11.9 - 15.5 g/dL ANDREA Comment:Testing performed by : [address] [address] Hct 37.5 35.6 - 45.5 % ANDREA Comment:Testing performed by : [address] [address] Plt 256 150 - 400 K/cumm ANDREA Comment:Testing performed by : [address] [address] MPV 9.4 9.1 - 12.3 fL ANDREA Comment:Testing performed by : [address] [address] RBC 4.32 3.90 - 5.20 M/cumm ANDREA Comment:Testing performed by : [address] [address] MCV 86.8 81.3 - 96.4 fL ANDREA Comment:Testing performed by : [address] [address] MCH 28.9 27.1 - 33.3 pg ANDREA Comment:Testing performed by : [address] [address] MCHC 33.3 32.3 - 35.7 g/dL ANDREA Comment:Testing performed by : [address] [address] RDW CV 11.7 11.1 - 14.9 % ANDREA Comment:Testing performed by : [address] [address] RDW SD 37.3 35.7 - 48.1 fL ANDREA Comment:Testing performed by : [address] [address] Blood specimen (specimen) 05/30/2021 9:00 AM CDT 05/30/2021 9:02 AM CDT us Vick Li DO LAB BLOOD ORDERABLES Final R esult ANDREA 4500 [facility] Department of Laboratories [place], [place] [id number] * (ABNORMAL) Comprehensive metabolic panel (05/02/2021 9:33 AM CDT) Sodium 143 135 - 145 mmol/L ANDREA Comment:Testing performed by : [address] [address] Potassium, pl 4.2 3.3 - 4.9 mmol/L ANDREA Comment:Testing performed by : [address] [address] Chloride 106 97 - 110 mmol/L ANDREA Comment:Testing performed by : [address] [address] CO2 34(H) 22 - 32 mmol/L [facility]REA Comment:Testing performed by : [address] [address] Anion gap 3 2 - 15 mmol/L [facility]REA Comment:Testing performed by : [address] [address] BUN 16 8 - 25 mg/dL [facility]REA Comment:Testing performed by : [address] [address] Creatinine 0.60 0.60 - 1.10 mg/dL [facility]REA Comment:Testing performed by : [address] [address] Glucose 114 70 - 199 mg/dL ANDREA [...] was last revised 2017. Testing performed by: [address], [address] Calcium 9.5 8.5 - 10.3 mg/dL ANDREA Comment:Testing performed by : [address] [address] Bilirubin, total 0.4 0.1 - 1.2 mg/dL ANDREA Comment:Testing performed by : [address], [address] Protein, pl 6.4(L) 6.5 - 8.5 g/dL ANDREA Comment:Testing performed by : [address], [address] Albumin 4.3 3.5 - 5.0 g/dL ANDREA Comment:Testing performed by : [address], [address] Alk phos 68 40 - 130 Units/L ANDREA Comment:Testing performed by : [address], [address] ALT 20 7 - 45 Units/L ANDREA Comment:Testing performed by : [address], [address] AST 24 10 - 45 Units/L ANDREA Comment:Testing performed by : [address], [address] Blood specimen (specimen) 05/02/2021 9:33 AM CDT 05/02/2021 9:48 AM CDT us Vick Li DO LAB BLOOD ORDERABLES Final R esult ANDREA 4836 [facility] Department [place] [address] * (ABNORMAL) CBC with auto differential (05/02/2021 9:33 AM CDT) [facility] WBC 3.6(L) 3.8 - 9.9 K/cumm ANDREA Comment:Testing performed by : [address] [address] Hgb 11.7(L) 11.9 - 15.5 g/dL ANDREA Comment:Testing performed by : [address] [address] Hct 34.9(L) 35.6 - 45.5 % ANDREA Comment:Testing performed by : [address] [address] Plt 244 150 - 400 K/cumm ANDREA Comment:Testing performed by : [address] [address] MPV 9.4 9.1 - 12.3 fL ANDREA Comment:Testing performed by : [address], [address] RBC 4.02 3.90 - 5.20 M/cumm ANDREA Comment:Testing performed by : [address] [address] MCV 86.8 81.3 - 96.4 fL ANDREA Comment:Testing performed by : [address] [address] MCH 29.1 27.1 - 33.3 pg ANDREA Comment:Testing performed by : [address] [address] MCHC 33.5 32.3 - 35.7 g/dL ANDREA Comment:Testing performed by : [address] [address] RDW CV 11.6 11.1 - 14.9 % ANDREA Comment:Testing performed by : [address] [address] RDW SD 36.3 35.7 - 48.1 fL ANDREA Comment:Testing performed by : [address] [address] Blood specimen (specimen) 05/02/2021 9:33 AM CDT 05/02/2021 9:48 AM CDT Vick Li DO LAB BLOOD ORDERABLES Final R esult ANDREA CASTILLO 20[address] [facility] Department [place] [address] * Comprehensive metabolic panel (04/04/2021 8:36 AM CDT) Sodium 140 135 - 145 mmol/L ANDREA Comment:Testing performed by : [address] [address] Potassium, pl 4.5 3.3 - 4.9 mmol/L ANDREA Comment:Testing performed by : [address] [address] Chloride 104 97 - 110 mmol/L ANDREA Comment:Testing performed by : [address] [address] CO2 29 22 - 32 mmol/L ANDRAE Comment:Testing performed by : [address] [address] Anion gap 7 2 - 15 mmol/L ANDREA Comment:Testing performed by : [address] [address] BUN 16 8 - 25 mg/dL ANDREA Comment:Testing performed by : [address] [address] Creatinine 0.60 0.60 - 1.10 mg/dL ANDREA Comment:Testing performed by : [address] [address] Glucose 118 70 - 199 mg/dL ANDREA Comment: Interpretive [...] was last revised 2017. Testing performed by: [address], [place]., [address] Calcium 9.5 8.5 - 10.3 mg/dL ANDREA Comment:Testing performed by : [address] [address] Bilirubin, total 0.2 0.1 - 1.2 mg/dL ANDREA CASTILLO Comment:Testing performed by : [address] [address] Protein, pl 7.2 6.5 - 8.5 g/dL ANDREA CASTILLO Comment:Testing performed by : [address] [address] Albumin 4.3 3.5 - 5.0 g/dL ANDREA Comment:Testing performed by : [address] [address] Alk phos 91 40 - 130 Units/L ANDREA Comment:Testing performed by : [address] [address] ALT 39 7 - 45 Units/L ANDREA CASTILLO Comment:Testing performed by : [address] [address] AST 39 10 - 45 Units/L ANDREA Comment:Testing performed by : [address] [address] Blood specimen (specimen) 04/04/2021 8:36 AM CDT 04/04/2021 8:37 AM CDT Vick Li DO LAB BLOOD ORDERABLES Final R esult ANDREA 8637 [facility] Department of Laboratories [place], [place] [id number] * (ABNORMAL) CBC with auto differential (04/04/2021 8:36 AM CDT) WBC 3.4(L) 3.8 - 9.9 K/cumm ANDREA CASTILLO Comment:Testing performed by : [address] [address] Hgb 12.5 11.9 - 15.5 g/dL ANDREA CASTILLO Comment:Testing performed by : [address] [address] Hct 36.3 35.6 - 45.5 % ANDREA CASTILLO Comment:Testing performed by : [address] [address] Plt 239 150 - 400 K/cumm ANDREA Comment:Testing performed by : [address] [address] MPV 9.5 9.1 - 12.3 fL ANDREA Comment:Testing performed by : [address] [address] RBC 4.17 3.90 - 5.20 M/cumm ANDREA Comment:Testing performed by : [address] [address] MCV 87.1 81.3 - 96.4 fL ANDREA Comment:Testing performed by : [address] [address] MCH 30.0 27.1 - 33.3 pg ANDREA Comment:Testing performed by : [address] [address] MCHC 34.4 32.3 - 35.7 g/dL ANDREA Comment:Testing performed by : [address] [address] RDW CV 11.6 11.1 - 14.9 % ANDREA Comment:Testing performed by : [address] [address] RDW SD 36.7 35.7 - 48.1 fL ANDREA Comment:Testing performed by : [address] [address] Blood specimen (specimen) 04/04/2021 8:36 AM CDT 04/04/2021 8:37 AM CDT us Vick Li DO LAB BLOOD ORDERABLES Final R esult ANDREA CASTILLO [address] [facility] Department of Laboratories [place], [place] [id number] documented in this encounter Visit Diagnoses Diagnosis Malignant carcinoid tumor of stomach (HCC)- Primary Malignant carcinoid tumor of the stomach documented in this encounter Orders Appointment Requests Count Last Ordered Date Fi rst Ordered Date ONCBCN CLINIC APPOINTMENT REQUEST 2 021 03/28/2021 ONCBCN INJECTION APPOINTMENT REQUEST 4 06/1804/04/2021 ONCBCN LAB APPOINTMENT 4 06/27/202104/04 documented in this encounter Care Teams Metal Crafts Teacher Relationship Specialty Start Date End Date Elizabeth Borrego PA [address] [place] [address] PCP - General Internal Medicine 03/25/20 09/27/23 Luann Lawrence, CHILI [employer] Nurse Practitioner Nurse Practitioner 01/06/19 Adarsh Tuttle MD [address] [place] [address] Consulting Physician Gastroenterology 02/22/19 Vick Li DO [address] [address] Medical Oncologist/Hvac/R Service Technician Hematology and Oncology 02/22/19 Guru Winters DO [address] [address] Consulting Physician Gastroenterology 02/22/19 Gato Abrams MD [address] [place] [id number] Surgeon Surgical Oncology 09/07/19 Marian Rosales MD [address] [place] [address] Consulting Physician General Surgery 03/24/21 documented as of this encounter
--- OUTSIDE RECORDS SUMMARY | 2024-10-04 03:02 | XMS_ITS | Encounter Summary ---
Author Organization [facility] Address [address] [place] [address] Phone Care Team Providers Care Drywall Professional Name Role Phone Luann Lawrence CLOTH DYER Unavailable [phone] Adarsh Tuttle MD Unavailable [phone] Sebastien Martinez DO Unavailable [phone] Guru Winters DO Unavailable [phone] Gato Abrams MD Unavailable [phone] Elizabeth Borrego Primary Care Provider [phone] Encounter Details Date Type Department Care Team (Late st Contact Info) Description 03/10/2021 Orders Only [facility] Physicians [facility] Oncology [address] [facility] [address] [place] [id number] Sebastien Martinez, DO [address] [facility] [address] [place] [address] Malignant carcinoid tumor of stomach [...] on file 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:22 AM CARBIDE GRINDER Gender Identity Female 06/07/2020 8:39 AM CDT Sexual Orientation Not on file 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 Not on file Not on mikie e documented as of this encounter Plan of Treatment Not on file documented as of this encounter Visit Diagnoses Diagnosis Malignant carcinoid tumor of stomach (HCC)- Primary Malignant carcinoid tumor of the stomach documented in this encounter Care Teams Drywall Professional Relationship Specialty Start Date End Date Elizabeth Borrego PA [address] [facility] [address] [place], [place] [id number] PCP - General Internal Medicine 03/25/20 09/27/23 Luann Lawrence NP Nurse Practitioner Nurse Practitioner 01/06/19 Adarsh Tuttle MD [address] [facility] [address] [place] [address] Consulting Physician Gastroenterology 02/22/19 Sebastien Martinez DO [address] [place] [address] Medical Oncologist/Manager Of Maintenance Hematology and Oncology 02/22/19 Guru Winters DO [address] [place] [address] Consulting Physician Gastroenterology 02/22/19 Gato Abrams MD [address] [place] [id number] Surgeon Surgical Oncology 09/07/19 documented as of this encounter
--- OUTSIDE RECORDS SUMMARY | 2024-10-04 03:02 | XMS_ITS | Encounter Summary ---
Author Organization [facility] Address [address] [place] [address] Phone Care Team Providers Care Paint Striping Machine Operator Name Role Phone Melinda Luann Burgess NP Unavailable [phone] Adarsh Tuttle MD Unavailable [phone] Sebastien Martinez DO Unavailable [phone] Guru Winters DO Unavailable [phone] Gato Abrams MD Unavailable [phone] Elizabeth Borrego Primary Care Provider [phone] Reason for Visit * Episode Based Medications (Routine) - Closed Specialty Diagnoses / Procedures Referred By Clemencia mendez Referred To Contact Oncology Diagnoses Malignant carcinoid tumor of stomach (HCC) Procedures [place] OCTREOTIDE INJECTION, DEPOT Sebastien Martinez, DO [employer] [address] Phone: tel: fax: [facility] Physicians [facility] Oncology [address] [address] Phone: tel: fax: Referral ID Status Reason Start Date Expiration Date Visits Re quested Visits Authorized [id number] Closed 2022 02/19/2023 1 50 Encounter Details Date Type Department Care Team (Late st Contact Info) Description 02/10/2021 8:00 AM CDT Infusion [facility] Physicians [facility] Oncology [address] [facility] [address] [place] [address] Malignant carcinoid tumor of stomach (CMS/HCC) (Primary [...] on file 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 Gender Identity Female 06/07/2020 8:39 AM CDT Sexual Orientation Not on file 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 No c/o today. documented in this encounter Plan of Treatment [...] LAR (SandoSTATIN LAR) extended release intramuscular injection 20 mg 20 mg, intramuscular, Once, On 02/10/21 at 0845, For 1 dose, Refrigerate. For IM intragluteal administration only- alternate gluteal sites. Shake.Indications:Malignant carcinoid tumor of stomach (HCC) Given 02/10/2021 8:25 AM CDT 20 mg Left Dorsogluteal/Butt ock documented in this encounter Orders Appointment Requests Count Last Ordered Date Fi rst Ordered Date ONCBCN INJECTION APPOINTMENT REQUEST 1 01/17 documented in this encounter Care Teams Paint Striping Machine Operator Relationship Specialty Start Date End Date Elizabeth Borrego PA [address] [place], [place] [id number] PCP - General Internal Medicine 03/25/20 09/27/23 Luann Lawrence NP Nurse Practitioner Nurse Practitioner 01/06/19 Adarsh Tuttle MD [address] [facility] [address] [place] [address] Consulting Physician Gastroenterology 02/22/19 Sebastien Martinez DO [employer] [address] [place] [address] Medical Oncologist/Medical Superintendent Hematology and Oncology 02/22/19 Guru Winters DO [employer] [address] Consulting Physician Gastroenterology 02/22/19 Gato Abrams MD [employer] [address] Surgeon Surgical Oncology 09/07/19 documented as of this encounter
--- OUTSIDE RECORDS SUMMARY | 2024-10-04 03:02 | XMS_ITS | Encounter Summary ---
Author Organization [facility] Address [address] [place] [address] Care Team Providers Care Tire Repairman Name Role Phone Luann Lawrence NP Unavailable [phone] Adarsh Tuttle MD Unavailable [phone] Sebastien Martinez DO Unavailable [phone] Guru Winters DO Unavailable [phone] Gato Abrams MD Unavailable [phone] Elizabeth Borrego Primary Care Provider [phone] Marina Rosales MD Unavailable [phone] Encounter Details Date Type Department Care Team (Late st Contact Info) Description 05/30/2021 8:30 AM CDT Lab [facility] Lab [address] [place] [address] Malignant carcinoid tumor of stomach (CMS/HCC) (HCC) [...] on file 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 Gender Identity Female 06/07/2020 8:39 AM CDT Sexual Orientation Not on file 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 Not on mikie e documented as of this encounter Plan of Treatment Not on file documented as of this encounter Procedures Procedure Name Priority Date/Time Associated Diagnosis Comments EGFR Routine 05/30/2021 9:00 AM CDT Malignant carcinoid tumor of stomach (CMS/HCC) (HCC) DIFFERENTIAL AUTO STAT 05/30/2021 9:0 0 AM CDT Malignant carcinoid tumor of stomach (CMS/HCC) (HCC) CBC WITH AUTO DIFFERENTIAL STAT 05/30/2021 9:00 AM CDT Malignant carcinoid tumor of stomach (CMS/HCC) (HCC) COMPREHENSIVE METABOLIC PANEL Routine 05/30/2021 9:00 AM CDT Malignant carcinoid tumor of stomach (CMS/HCC) (HCC) documented in this encounter Results * eGFR (05/30/2021 9:00 AM CDT) eGFR 98 mL/min/1.7 3 m2 ANDREA Comment: [...] was last reviewed 2020 Testing performed by: [address] [address] Blood specimen (specimen) 05/30/2021 9:00 AM CDT 05/30/2021 9:02 AM CDT Sebastien Martinez DO LAB BLOOD ORDERABLES Final R esult [place] [id number] [facility] Department [place] [address] * Differential, auto (05/30/2021 9:00 AM CDT) Neutrophil abs 2.1 1.7 - 6.5 K/cumm ANDREA Comment:Testing performed by : [address] [address] Lymphocyte abs 1.0 0.8 - 3.3 K/cumm ANDREA Comment:Testing performed by : [address] [address] Monocyte abs 0.2 0.2 - 0.8 K/cumm ANDREA Comment:Testing performed by : [address] [address] Eosinophil abs 0.2 0.0 - 0.5 K/cumm ANDREA Comment:Testing performed by : [address] [address] Neutrophil pct 60.2 % ANDREA Comment: Interpretive Data Percent cell count reference ranges are not reported, since discordance with absolute values may lead to misinterpretation of CBC data. Current Interpretive Data was last revised on 2018. Testing performed by: [address] [place]., [address] Lymphocyte pct 28.8 % ANDREA Comment: Interpretive Data Percent cell count reference ranges are not reported, since discordance with absolute values may lead to misinterpretation of CBC data. Current Interpretive Data was last revised on 2018. Testing performed by: [address] [address] Monocyte pct 4.9 % ANDREA Comment: Interpretive Data Percent cell count reference ranges are not reported, since discordance with absolute values may lead to misinterpretation of CBC data. Current Interpretive Data was last revised on 2018. Testing performed by: [address] [address] Eosinophil pct 4.9 % ANDREA Comment: Interpretive Data Percent cell count reference ranges are not reported, since discordance with absolute values may lead to misinterpretation of CBC data. Current Interpretive Data was last revised on 2018. Testing performed by: [address] [address] Basophil pct 1.2 % ANDREA Comment: Interpretive Data Percent cell count reference ranges are not reported, since discordance with absolute values may lead to misinterpretation of CBC data. Current Interpretive Data was last revised on 2018. Testing performed by: [address] [address] Blood specimen (specimen) 05/30/2021 9:00 AM CDT 05/30/2021 9:02 AM CDT Sebastien Martinez DO LAB BLOOD ORDERABLES Final R [facility] [facility] Department [place] [address] * (ABNORMAL) CBC with auto differential (05/30/2021 9:00 AM CDT) WBC 3.4(L) 3.8 - 9.9 K/cumm ANDREA Comment:Testing performed by : [address] [address] Hgb 12.5 11.9 - 15.5 g/dL ANDREA Comment:Testing performed by : [address] [address] Hct 37.5 35.6 - 45.5 % ANDREA Comment:Testing performed by : [address] [address] Plt 256 150 - 400 K/cumm ANDREA Comment:Testing performed by : [address] [address] MPV 9.4 9.1 - 12.3 fL ANDREA Comment:Testing performed by : [address] [address] RBC 4.32 3.90 - 5.20 M/cumm ANDREA Comment:Testing performed by : [address] [address] MCV 86.8 81.3 - 96.4 fL ANDREA Comment:Testing performed by : [address] [address] MCH 28.9 27.1 - 33.3 pg ANDREA Comment:Testing performed by : [address] [address] MCHC 33.3 32.3 - 35.7 g/dL ANDREA Comment:Testing performed by : [address] [address] RDW CV 11.7 11.1 - 14.9 % ANDREA Comment:Testing performed by : [address] [address] RDW SD 37.3 35.7 - 48.1 fL ANDREA Comment:Testing performed by : [address] [address] Blood specimen (specimen) 05/30/2021 9:00 AM CDT 05/30/2021 9:02 AM CDT us Sebastien Martinez DO LAB BLOOD ORDERABLES Final R esult ANDREA [place] [address] [facility] Department [place] [address] * Comprehensive metabolic panel (05/30/2021 9:00 AM CDT) Sodium 140 135 - 145 mmol/L ANDREA Comment:Testing performed by : [address] [address] Potassium, pl 3.9 3.3 - 4.9 mmol/L ANDREA Comment:Testing performed by : [address] [address] Chloride 104 97 - 110 mmol/L ANDREA Comment:Testing performed by : [address] [address] CO2 30 22 - 32 mmol/L ANDREA Comment:Testing performed by : [address], [place]., [address] Anion gap 6 2 - 15 mmol/L ANDREA Comment:Testing performed by : [address] [address] BUN 16 8 - 25 mg/dL ANDREA Comment:Testing performed by : [address] [address] Creatinine 0.70 0.60 - 1.10 mg/dL ANDREA Comment:Testing performed by : [address] [address] Glucose 147 70 - 199 mg/dL ANDREA [...] was last revised 2017. Testing performed by: [address] [address] Calcium 9.8 8.5 - 10.3 mg/dL ANDREA Comment:Testing performed by : [address] [address] Bilirubin, total 0.4 0.1 - 1.2 mg/dL ANDREA Comment:Testing performed by : [address] [address] Protein, pl 6.7 6.5 - 8.5 g/dL ANDREA Comment:Testing performed by : [address], [address] Albumin 4.4 3.5 - 5.0 g/dL ANDREA Comment:Testing performed by : [address], [address] Alk phos 67 40 - 130 Units/L ANDREA Comment:Testing performed by : [address], [address] ALT 21 7 - 45 Units/L ANDREA Comment:Testing performed by : [address], [address] AST 24 10 - 45 Units/L NADREA Comment:Testing performed by : [address] [address] Blood specimen (specimen) 05/30/2021 9:00 AM CDT 05/30/2021 9:02 AM CDT Sebastien Martinez DO LAB BLOOD ORDERABLES Final R esult Performing Organization Address City/State/[facility] Co de Phone Number [facility] [address] [facility] Department [place] [address] documented in this encounter Visit Diagnoses Diagnosis Malignant carcinoid tumor of stomach (HCC) Malignant carcinoid tumor of the stomach documented in this encounter Orders Appointment Requests Count Last Ordered Date Fi rst Ordered Date ONCBCN LAB APPOINTMENT 1 05/30/2021 documented in this encounter Care Teams Tire Repairman Relationship Specialty Start Date End Date Elizabeth Borrego PA [address] [facility] 500 [place] [address] PCP - General Internal Medicine 03/25/20 09/27/23 Luann Lawrence NP Nurse Practitioner Nurse Practitioner 01/06/19 Adarsh Tuttle MD [address] [place] [address] Consulting Physician Gastroenterology 02/22/19 Sebastien Martinez DO [address] [place] [address] Medical Oncologist/Stable Helper Hematology and Oncology 02/22/19 Guru Winters DO [address] [place] [id number] Consulting Physician Gastroenterology 02/22/19 Gato Abrams MD [address] [place] [address] Surgeon Surgical Oncology 09/07/19 Marina Rosales MD [address] [facility] [address] [place] [address] Consulting Physician General Surgery 03/24/21 documented as of this encounter
--- OUTSIDE RECORDS SUMMARY | 2024-10-04 03:02 | XMS_ITS | Encounter Summary ---
Author Organization [facility] Address [address] [place] [address] Phone Care Team Providers Care Hydrant Setter Name Role Phone MelindaLunan oh ANUP Unavailable [phone] Adarsh Tuttle MD Unavailable [phone] Sebastien Martinez DO Unavailable [phone] Guru Winters DO Unavailable [phone] Gato Abrams MD Unavailable [phone] Elizabeth Borrego Primary Care Provider [phone] Marina Rosales MD Unavailable [phone] Reason for Visit * Reason Comments Injections * Episode Based Medications (Routine) - Closed Specialty Diagnoses / Procedures Referred By Clemencia mendez Referred To Contact Oncology Diagnoses Malignant carcinoid tumor of stomach (HCC) Procedures CT OCTREOTIDE INJECTION, DEPOT Sebastien Martinez DO [facility] [address] [address] Phone: tel: fax: [facility] Physicians [facility] Oncology [address] [address] Phone: tel: fax: Referral ID Status Reason Start Date Expiration Date Visits Re quested Visits Authorized [id number] Closed 2022 02/19/2023 1 50 Encounter Details Date Type Department Care Team (Late st Contact Info) Description 05/30/2021 9:00 AM CDT Infusion [facility] Physicians [facility] Oncology 14[address] [facility] [address] [place] [address] Malignant carcinoid tumor of stomach [...] on file 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 Gender Identity Female 06/07/2020 8:39 AM CDT Sexual Orientation Not on file 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 No complaints. documented in this [...] 10 mg 10 mg, intramuscular, Once, On Wed05/30/21 at 0945, For 1 dose, Refrigerate. For IM intragluteal administration only- alternate gluteal sites. Shamir.Indications:Malignant carcinoid tumor of stomach (HCC) Given 05/30/2021 9:23 AM CDT 10 mg Right Dorsogluteal/Butt ock documented in this encounter Orders Appointment Requests Count Last Ordered Date Fi rst Ordered Date ONCBCN INJECTION APPOINTMENT REQUEST 1 05/18 documented in this encounter Care Teams Hydrant Setter Relationship Specialty Start Date End Date Elizabeth Borrego PA [address] [facility] [address] [place], [place] [phone] PCP - General Internal Medicine 03/25/20 09/27/23 Luann Lawrence, ANUP Nurse Practitioner Nurse Practitioner 01/06/19 Adarsh Tuttle MD [address] [facility] [address] [place] [address] Consulting Physician Gastroenterology 02/22/19 Sebastien Martinez DO [address] [address] Medical Oncologist/Carpenter Assistant Installer Hematology and Oncology 02/22/19 Guru Winters DO [address] [place] [address] Consulting Physician Gastroenterology 02/22/19 Gato Abrams MD 1418 [facility] [address] [place] [address] Surgeon Surgical Oncology 09/07/19 Marina Rosales MD 10[address] [facility] 500 [place] [address] Consulting Physician General Surgery 03/24/21 documented as of this encounter
--- OUTSIDE RECORDS SUMMARY | 2024-10-04 03:02 | XMS_ITS | Encounter Summary ---
Author Organization [facility] Address [address] [place] [address] Care Team Providers Care Casing Flusher Name Role Phone Luann Lawrence NP Unavailable [phone] Adarsh Tuttle MD Unavailable [phone] Sebastien Martinez DO Unavailable [phone] Guru Winters DO Unavailable [phone] Gato Abrams MD Unavailable [phone] Elizabeth Borrego Primary Care Provider [phone] Reason for Referral * MRI/CAT/PET Scan (Routine) - Closed Specialty Diagnoses / Procedures Referred By Clemencia mendez Referred To Contact Radiology Diagnoses Malignant carcinoid tumor of stomach (HCC) Procedures CT abdomen with & without contrast Sebastien Martinez DO [facility] [address] Phone: tel: fax: [address] [address] Referral ID Status Reason Start Date Expiration Date Visits Re quested Visits Authorized [id number] Closed 08/30/2020 09/29/2021 1 1 GOVERNANCE CONSULTANT Reason for Visit * MRI/CAT/PET Scan (Routine) - Closed Specialty Diagnoses / Procedures Referred By Clemencia mendez Referred To Contact Radiology Diagnoses Malignant carcinoid tumor of stomach (HCC) Procedures CT abdomen with & without contrast Sebastien Martinez DO [address] [address] Phone: tel: fax: [facility] [address] [place] [address] Referral ID Status Reason Start Date Expiration Date Visits Re quested Visits Authorized [id number] Closed 08/30/2020 09/29/2021 1 1 Encounter Details Date Type Department Care Team (Latest Contact Info) Description 11/25/2020 10:41 AM DATA GOVERNANCE CONSULTANT - 11/25/2020 11:59 PM DATA GOVERNANCE CONSULTANT Hospital Encounter 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 Not on file Not on mikie e documented as of this encounter Medications at Time of Discharge cholecalciferol (VITAMIN D-3) 1,000 unit capsuleIndicatio ns:Vitamin D Deficiency Take 2 capsules (2,000 Units total) by mouth product development engineer before breakfast ALPRAZolam (XANAX) 0.25 mg tablet Take 1 tablet (0.25 mg total) by mouth 3 (three) times a day as needed for anxiety 30 tablet 08/09/2020 12/07/202 1 buPROPion XL (WELLBUTRIN XL) 150 mg 24 hr tabletIndication s:Anxiety with Depression Take 1 tablet (150 mg total) by mouth every morning 90 tablet 3 10/01/2020 1 cyanocobalamin (Vitamin B-12) 1,000 mcg/mL injection Inject 1 mL (1,000 mcg total) into the muscle as instructed every 30 (thirty) days 3 mL 2 12/25/2019 1 escitalopram (LEXAPRO) 10 mg tablet Take 1 tablet (10 mg total) by mouth every morning 90 tablet 3 10/01/2020 1 hydroxychloroqui ne (PLAQUENIL) 200 mg tabletIndication s:Arthritis Take 1 tablet (200 mg total) by mouth product development engineer before breakfast 01/30/2019 3 Insulin Syringe MicroFine 1/2 mL 28 gauge x 1/2 syringe 08/26/2020 1 insulin syringe-needle U-100 1 mL 29 gauge x 1/2 syringe 1 Syringe every 30 (thirty) days 100 each 08/26/2020 1 multivitamin capsuleIndicatio ns:Vitamin Deficiency Prevention Take 1 capsule by mouth product development engineer before breakfast 4 octreotide LAR (SandoSTATIN LAR) 20 mg suspension,exten ded rel reconIndications :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 Inject 10 mg into the muscle as instructed every 28 (twenty-eight) days Pt unsure of dosage 2 pravastatin (PRAVACHOL) 40 mg tablet Take 1 tablet (40 mg total) by mouth every morning 90 tablet 3 10/01/2020 1 valsartan-hydroC HLOROthiazide (DIOVAN-HCT) 80-12.5 mg per tabletIndication s:hypertension Take 1 tablet by mouth daily 90 tablet 3 10/01/2020 1 documented as of this encounter Discharge Disposition Disposition Code Departure Means Destination Discharge to home or self care documented in this encounter Plan of Treatment Not on file documented as of this encounter Procedures Procedure Name Priority Date/Time Associated Diagnosis Comments CT ABDOMEN W WO CONTRAST Schedule Routine, Read Routine (OP Routine) 11/25/2020 11:40 AM DATA GOVERNANCE CONSULTANT Malignant carcinoid tumor of stomach (CMS/HCC) documented in this encounter Results * CT abdomen with & without contrast (11/25/2020 11:40 AM DATA GOVERNANCE CONSULTANT) Anatomical Region Laterality Modality Body N/A Computed Tomogra phy 11/25/2020 11:5 2 AM DATA GOVERNANCE CONSULTANT Impressions 11/25/2020 11:52 AM DATA GOVERNANCE CONSULTANT 1. Stable 6 mm arterially hyperenhancing pancreatic uncinate process lesion, most consistent with a well-differentiated neuroendocrine tumor. 2. Stable postoperative changes of distal gastrectomy and Billroth II gastrojejunostomy without CT evidence of recurrent or metastatic disease in the abdomen. Electronically signed by: Aydin Hahn M.D. Narrative 11/25/2020 11:52 AM DATA GOVERNANCE CONSULTANT EXAMINATION: ??Computed tomography of the abdomen with and without intravenous contrast HISTORY: 55 years-old Female with status post distal gastrectomy with Billroth II gastrojejunostomy on 08/23/2019 for atrophic gastritis with well-differentiated gastric carcinoid tumors on pathology, suspected carcinoid involving the uncinate process of the pancreas. Follow-up evaluation. TECHNIQUE: ??Transaxial computed tomographic images of the abdomen were obtained with and without intravenous contrast according to the pancreas protocol after the uneventful administration of 125 mL Opti-Ray 350 intravenous contrast. COMPARISON: CT abdomen pelvis performed 08/26/2020 FINDINGS: ?? The lung bases are clear of focal consolidation. Scattered small nodules in the lung bases are grossly stable. For reference, a 4 mm subsolid right lower lobe pulmonary nodule is stable (series 5, image 9). The heart size is normal without pericardial effusion. A 6 mm arterially enhancing lesion in the uncinate process of the pancreas (series 3, image 145) is stable in size and appearance when compared to the prior exam. No new suspicious pancreatic lesions are identified. No pancreatic ductal dilatation is identified. Note is again made of partial pancreatic divisum. The liver enhances homogeneously without focal lesion. The gallbladder is normal in appearance. Minimal dilatation of the common bile duct, which demonstrate normal tapering distally, is stable. The portal and superior mesenteric veins are patent. The spleen and adrenal glands are normal in appearance. The kidneys enhance symmetrically without focal lesion. No hydronephrosis or nephrolithiasis. The distal esophagus is normal in appearance. Postoperative changes of distal gastrectomy with Billroth II gastrojejunostomy are redemonstrated. No CT evidence of recurrent disease at the anastomotic site. The visible loops of small and large bowel are normal in appearance without evidence of wall thickening or obstruction. No abdominal lymphadenopathy is identified. No free intraperitoneal fluid or gas is identified in the upper abdomen. The abdominal aorta is normal in caliber without evidence of aneurysmal dilatation. No suspicious lytic or blastic osseous lesions are identified. Procedure Note Aydin Hahn MD - 11/25/2020 EXAMINATION: Computed tomography of the abdomen with and without intravenous contrast HISTORY: 55 years-old Female with status post distal gastrectomy with Billroth II gastrojejunostomy on 08/23/2019 for atrophic gastritis with well-differentiated gastric carcinoid tumors on pathology, suspected carcinoid involving the uncinate process of the pancreas. Follow-up evaluation. TECHNIQUE: Transaxial computed tomographic images of the abdomen were obtained with and without intravenous contrast according to the pancreas protocol after the uneventful administration of 125 mL Opti-Ray 350 intravenous contrast. COMPARISON: CT abdomen pelvis performed 08/26/2020 FINDINGS: The lung bases are clear of focal consolidation. Scattered small nodules in the lung bases are grossly stable. For reference, a 4 mm subsolid right lower lobe pulmonary nodule is stable (series 5, image 9). The heart size is normal without pericardial effusion. A 6 mm arterially enhancing lesion in the uncinate process of the pancreas (series 3, image 145) is stable in size and appearance when compared to the prior exam. No new suspicious pancreatic lesions are identified. No pancreatic ductal dilatation is identified. Note is again made of partial pancreatic divisum. The liver enhances homogeneously without focal lesion. The gallbladder is normal in appearance. Minimal dilatation of the common bile duct, which demonstrate normal tapering distally, is stable. The portal and superior mesenteric veins are patent. The spleen and adrenal glands are normal in appearance. The kidneys enhance symmetrically without focal lesion. No hydronephrosis or nephrolithiasis. The distal esophagus is normal in appearance. Postoperative changes of distal gastrectomy with Billroth II gastrojejunostomy are redemonstrated. No CT evidence of recurrent disease at the anastomotic site. The visible loops of small and large bowel are normal in appearance without evidence of wall thickening or obstruction. No abdominal lymphadenopathy is identified. No free intraperitoneal fluid or gas is identified in the upper abdomen. The abdominal aorta is normal in caliber without evidence of aneurysmal dilatation. No suspicious lytic or blastic osseous lesions are identified. IMPRESSION: 1. Stable 6 mm arterially hyperenhancing pancreatic uncinate process lesion, most consistent with a well-differentiated neuroendocrine tumor. 2. Stable postoperative changes of distal gastrectomy and Billroth II gastrojejunostomy without CT evidence of recurrent or metastatic disease in the abdomen. Electronically signed by: Aydin Hahn M.D. Sebastien Martinez DO IMG CT PROCEDURES [...] intravenous, Once in imaging, contrast, Starting on 11/25/20 at 1129, For 1 dose Given 11/25/2020 11:43 AM DATA GOVERNANCE CONSULTANT 125 mL documented in this encounter Additional Health Concerns Infection Onset Date Last Indicated Resolved Time COVID: Recovered Comment:Added based on recent COVID infection. 08/21/2020 08/23/2020 12/19/2020 3:[address] documented as of this encounter Care Teams Casing Flusher Relationship Specialty Start Date End Date Elizabeth Borrego PA [address] [place] [address] PCP - General Internal Medicine 03/25/20 09/27/23 Luann Lawrence NP Nurse Practitioner Nurse Practitioner 01/06/19 Adarsh Tuttle MD [address] [facility] [address] [place] [address] Consulting Physician Gastroenterology 02/22/19 Sebastien Martinez DO [address] [facility] [address] [place] [address] Medical Oncologist/Insurance Instructor Hematology and Oncology 02/22/19 [place] [address] [place] [address] Consulting Physician Gastroenterology 02/22/19 Gato Abrams MD [address] [place] [address] Surgeon Surgical Oncology 09/07/19 documented as of this encounter
--- OUTSIDE RECORDS SUMMARY | 2024-10-04 03:02 | XMS_ITS | Encounter Summary ---
Author Organization [facility] Address [address] [place] [address] Care Team Providers Care Physician Chief Of Pathology Name Role Phone Luann Lawrence NP Unavailable [phone] Adarsh Tuttle MD Unavailable [phone] Sebastien Martinez DO Unavailable [phone] Guru Winters DO Unavailable [phone] Gato Abrams MD Unavailable [phone] Elizabeth Borrego Primary Care Provider [phone] Marina Rosales MD Unavailable [phone] Encounter Details Date Type Department Care Team (Late st Contact Info) Description 05/02/2021 9:30 AM CDT Lab [facility] [address] [place] [id number] Malignant carcinoid tumor of stomach (CMS/HCC) (HCC) [...] on file 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:22 AM 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 MANUFACTURING 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 Gender Identity Female 06/07/2020 8:39 AM CDT Sexual Orientation Not on file 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 Not on file Not on mikie e documented as of this encounter Plan of Treatment Not on file documented as of this encounter Procedures Procedure Name Priority Date/Time Associated Diagnosis Comments EGFR Routine 05/02/2021 9:33 AM CDT Malignant carcinoid tumor of stomach (CMS/HCC) (HCC) DIFFERENTIAL AUTO STAT 05/02/2021 9:3 3 AM CDT Malignant carcinoid tumor of stomach (CMS/HCC) (HCC) CBC WITH AUTO DIFFERENTIAL STAT 05/02/2021 9:33 AM CDT Malignant carcinoid tumor of stomach (CMS/HCC) (HCC) COMPREHENSIVE METABOLIC PANEL Routine 05/02/2021 9:33 AM CDT Malignant carcinoid tumor of stomach (CMS/HCC) (HCC) documented in this encounter Results * eGFR (05/02/2021 9:33 AM CDT) eGFR 103 mL/min/1.7 3 m2 ANDREA Comment: Interpretive Data [...] was last reviewed 2020 Testing performed by: [address] [address] Blood specimen (specimen) 05/02/2021 9:33 AM CDT 05/02/2021 9:48 AM CDT Sebastien Martinez DO LAB BLOOD ORDERABLES Final R esult [place] [id number] [facility] Department [place] [address] * Differential, auto (05/02/2021 9:33 AM CDT) Neutrophil abs 2.1 1.7 - 6.5 K/cumm ANDREA Comment:Testing performed by : [address] [address] Lymphocyte abs 1.0 0.8 - 3.3 K/cumm ANDREA Comment:Testing performed by : [address] [address] Monocyte abs 0.3 0.2 - 0.8 K/cumm ANDREA Comment:Testing performed by : [address] [address] Eosinophil abs 0.2 0.0 - 0.5 K/cumm ANDREA Comment:Testing performed by : [address] [address] Neutrophil pct 57.7 % ANDREA Comment: Interpretive Data Percent cell count reference ranges are not reported, since discordance with absolute values may lead to misinterpretation of CBC data. Current Interpretive Data was last revised on 2018. Testing performed by: [address] [place] [address] Imm gran pct 0.3 % [facility] Comment: Interpretive Data Percent cell count reference ranges are not reported, since discordance with absolute values may lead to misinterpretation of CBC data. Current Interpretive Data was last revised on 2018. Testing performed by: [address] [address] Lymphocyte pct 28.5 % [facility] Comment: Interpretive Data Percent cell count reference ranges are not reported, since discordance with absolute values may lead to misinterpretation of CBC data. Current Interpretive Data was last revised on 2018. Testing performed by: [address] [address] Monocyte pct 7.2 % [facility] Comment: Interpretive Data Percent cell count reference ranges are not reported, since discordance with absolute values may lead to misinterpretation of CBC data. Current Interpretive Data was last revised on 2018. Testing performed by: [address] [address] Eosinophil pct 5.2 % [facility] Comment: Interpretive Data Percent cell count reference ranges are not reported, since discordance with absolute values may lead to misinterpretation of CBC data. Current Interpretive Data was last revised on 2018. Testing performed by: [address] [address] Basophil pct 1.1 % [facility] Comment: Interpretive Data Percent cell count reference ranges are not reported, since discordance with absolute values may lead to misinterpretation of CBC data. Current Interpretive Data was last revised on 2018. Testing performed by: [address] [address] Blood specimen (specimen) 05/02/2021 9:33 AM CDT 05/02/2021 9:48 AM CDT us Sebastien Martinez DO LAB BLOOD ORDERABLES Final R esult ANDREA [address] [facility] Department of Laboratories [place], [place] [id number] * (ABNORMAL) CBC with auto differential (05/02/2021 9:33 AM CDT) [facility] Signature WBC 3.6(L) 3.8 - 9.9 K/cumm ANDREA Comment:Testing performed by : [address] [address] Hgb 11.7(L) 11.9 - 15.5 g/dL ANDREA Comment:Testing performed by : [address] [address] Hct 34.9(L) 35.6 - 45.5 % ANDREA Comment:Testing performed by : [address], [address] Plt 244 150 - 400 K/cumm ANDREA Comment:Testing performed by : [address] [address] MPV 9.4 9.1 - 12.3 fL ANDREA Comment:Testing performed by : [address], [address] RBC 4.02 3.90 - 5.20 M/cumm ANDREA Comment:Testing performed by : [address], [address] MCV 86.8 81.3 - 96.4 fL ANDREA Comment:Testing performed by : [address] [address] MCH 29.1 27.1 - 33.3 pg ANDREA Comment:Testing performed by : [address], [address] MCHC 33.5 32.3 - 35.7 g/dL ANDREA Comment:Testing performed by : [address], [address] RDW CV 11.6 11.1 - 14.9 % ANDREA Comment:Testing performed by : [address], [address] RDW SD 36.3 35.7 - 48.1 fL ANDREA Comment:Testing performed by : [address], [address] Blood specimen (specimen) 05/02/2021 9:33 AM CDT 05/02/2021 9:48 AM CDT Sebastien Martinez DO LAB BLOOD ORDERABLES Final R esult ANDREA [address] [facility] Department [place] [address] * (ABNORMAL) Comprehensive metabolic panel (05/02/2021 9:33 AM CDT) Sodium 143 135 - 145 mmol/L ANDREA Comment:Testing performed by : [address] [address] Potassium, pl 4.2 3.3 - 4.9 mmol/L ANDREA Comment:Testing performed by : [address] [address] Chloride 106 97 - 110 mmol/L ANDREA Comment:Testing performed by : [address] [address] CO2 34(H) 22 - 32 mmol/L ANDREA Comment:Testing performed by : [address] [address] Anion gap 3 2 - 15 mmol/L ANDREA Comment:Testing performed by : [address] [address] BUN 16 8 - 25 mg/dL ANDREA Comment:Testing performed by : [address] [address] Creatinine 0.60 0.60 - 1.10 mg/dL ADNREA Comment:Testing performed by : [address] [address] Glucose 114 70 - 199 mg/dL ANDREA [...] was last revised 2017. Testing performed by: [address] [address] Calcium 9.5 8.5 - 10.3 mg/dL ANDREA Comment:Testing performed by : [address] [address] Bilirubin, total 0.4 0.1 - 1.2 mg/dL ANDREA Comment:Testing performed by : [address] [address] Protein, pl 6.4(L) 6.5 - 8.5 g/dL ANDREA Comment:Testing performed by : [address] [address] Albumin 4.3 3.5 - 5.0 g/dL ANDREA Comment:Testing performed by : [address] [address] Alk phos 68 40 - 130 Units/L ANDREA Comment:Testing performed by : [address] [address] ALT 20 7 - 45 Units/L ANDREA Comment:Testing performed by : [address] [address] AST 24 10 - 45 Units/L ANDREA Comment:Testing performed by : [address] [address] Blood specimen (specimen) 05/02/2021 9:33 AM CDT 05/02/2021 9:48 AM CDT us Sebastien Martinez DO LAB BLOOD ORDERABLES Final R esult ANDREA CASTILL[place] [address] [facility] Department [place] [address] documented in this encounter Visit Diagnoses Diagnosis Malignant carcinoid tumor of stomach (HCC) Malignant carcinoid tumor of the stomach documented in this encounter Orders Appointment Requests Count Last Ordered Date Fi rst Ordered Date ONCBCN LAB APPOINTMENT 1 05/02/2021 documented in this encounter Care Teams Physician Chief Of Pathology Relationship Specialty Start Date End Date Elizabeth Borrego PA [address] [place], [place] [id number] PCP - General Internal Medicine 03/25/20 09/27/23 Luann Lawrence, ANUP Nurse Practitioner Nurse Practitioner 01/06/19 Adarsh Tuttle MD [address] [facility] [address] [place] [address] Consulting Physician Gastroenterology 02/22/19 Sebastien Martinez DO [address] [place] [address] Medical Oncologist/Class B Truck Driver Hematology and Oncology 02/22/19 Guru Winters DO [facility] [address] Consulting Physician Gastroenterology 02/22/19 Gato Abrams MD [address] [place] [address] Surgeon Surgical Oncology 09/07/19 Marina Rosales MD [address] [place] [address] Consulting Physician General Surgery 03/24/21 documented as of this encounter
--- OUTSIDE RECORDS SUMMARY | 2024-10-04 03:02 | XMS_ITS | Encounter Summary ---
Author Organization [facility] Address [address] [place] [address] Phone Care Team Providers Care Recreation Clerk Name Role Phone MelindaLuann Aditya HEBERT Unavailable [phone] Adarsh Tuttle MD Unavailable [phone] Sebastien Martinez DO Unavailable [phone] Guru Winters DO Unavailable [phone] Gato Abrams MD Unavailable [phone] Elizabeth Borrego Primary Care Provider [phone] Reason for Visit * Reason Comments Injections * Episode Based Medications (Routine) - Closed Specialty Diagnoses / Procedures Referred By Clemencia mendez Referred To Contact Oncology Diagnoses Malignant carcinoid tumor of stomach (HCC) Procedures [place] OCTREOTIDE INJECTION, DEPOT Sebastien Martinez, [address] [address] Phone: tel: fax: [facility] Physicians [facility] Oncology [address] [address] Phone: tel: fax: Referral ID Status Reason Start Date Expiration Date Visits Re quested Visits Authorized [id number] Closed 2022 02/19/2023 1 50 Encounter Details Date Type Department Care Team (Late st Contact Info) Description 11/18/2020 8:15 AM STUDENT SUCCESS COUNSELOR Infusion [facility] Oncology [address] [facility] [address] [place] [address] Malignant carcinoid tumor of stomach [...] on file 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:22 AM STUDENT SUCCESS COUNSELOR Gender Identity Female 06/07/2020 8:39 AM CDT Sexual Orientation Not on file 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 For IM intragluteal administration only- alternate gluteal sites. Shake.Indications:Malignant carcinoid tumor of stomach (HCC) Given 11/18/2020 8:05 AM STUDENT SUCCESS COUNSELOR 20 mg Right Dorsogluteal/Butt ock documented in this encounter Orders Appointment Requests Count Last Ordered Date Fi rst Ordered Date ONCBCN INJECTION APPOINTMENT REQUEST 1 10/2020 documented in this encounter Additional Health Concerns Infection Onset Date Last Indicated Resolved Time COVID: Recovered Comment:Added based on recent COVID infection. 08/21/2020 08/23/2020 12/19/2020 3:[address] documented as of this encounter Care Teams Recreation Clerk Relationship Specialty Start Date End Date Elizabeth Borrego PA [address] [place] [address] PCP - General Internal Medicine 03/25/20 09/27/23 Luann Lawrence, ANUP Nurse Practitioner Nurse Practitioner 01/06/19 Adarsh Tuttle MD [address] [facility] [address] [place] [address] Consulting Physician Gastroenterology 02/22/19 Sebastien Martinez DO [address] [place] [address] Medical Oncologist/Innovation Manager Hematology and Oncology 02/22/19 Guru Winters DO [address] [place] [address] Consulting Physician Gastroenterology 02/22/19 Gato Abrams MD [address] [place] [address] Surgeon Surgical Oncology 09/07/19 documented as of this encounter
--- OUTSIDE RECORDS SUMMARY | 2024-10-04 03:02 | XMS_ITS | Encounter Summary ---
Author Organization [facility] Address [address] [place] [address] Phone Care Team Providers Care Boilermaker Mechanic Name Role Phone Luann Lawrence FILLING CARRIER Unavailable [phone] Adarsh Tuttle MD Unavailable [phone] Sebastien Martinez DO Unavailable Guru Winters DO Unavailable [phone] Gato Abrams MD Unavailable [phone] Elizabeth Borrego Primary Care Provider [phone] Encounter Details Date Type Department Care Team (Late st Contact Info) Description 02/10/2021 Orders Only [facility] [address] [facility] [address] [place] [address] Sebastien Martinez, DO [address] [facility] [address] [place] [address] Malignant carcinoid tumor of stomach [...] on file 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 Gender Identity Female 06/07/2020 8:39 AM CDT Sexual Orientation Not on file 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 Not on mikie e documented as of this encounter Plan of Treatment Not on file documented as of this encounter Visit Diagnoses Diagnosis Malignant carcinoid tumor of stomach (HCC)- Primary Malignant carcinoid tumor of the stomach documented in this encounter Care Teams Boilermaker Mechanic Relationship Specialty Start Date End Date Elizabeth Borrego PA [address] [facility] [address] [place], [place] [id number] PCP - General Internal Medicine 03/25/20 09/27/23 Luann Lawrence NP Nurse Practitioner Nurse Practitioner 01/06/19 Adarsh Tuttle MD [address] [facility] [address] [place] [address] Consulting Physician Gastroenterology 02/22/19 Sebastien Martinez DO [address] [place] [address] Medical Oncologist/Manager Medical Hematology and Oncology 02/22/19 Guru Winters DO [address] [place] [address] Consulting Physician Gastroenterology 02/22/19 Gato Abrams MD [address] [place] [id number] Surgeon Surgical Oncology 09/07/19 documented as of this encounter
--- OUTSIDE RECORDS SUMMARY | 2024-10-04 03:02 | XMS_ITS | Encounter Summary ---
Author Organization [facility] Address [address] [place] [address] Phone Care Team Providers Care Documentation Lead Name Role Phone MelindaLuann oh ANUP Unavailable [phone] Adarsh Tuttle MD Unavailable Sebastien Martinez DO Unavailable [phone] Guru Wniters DO Unavailable [phone] Gato Abrams MD Unavailable [phone] Elizabeth Borrego Primary Care Provider [phone] Marina Rosales MD Unavailable [phone] Reason for Visit * Reason Comments Injections * Episode Based Medications (Routine) - Closed Specialty Diagnoses / Procedures Referred By Clemencia mendez Referred To Contact Oncology Diagnoses Malignant carcinoid tumor of stomach (HCC) Procedures GA OCTREOTIDE INJECTION, DEPOT Sebastien Martinez DO [facility] [address] Phone: tel: fax: [facility] [place] [facility] On[facility] [address] [address] Phone: tel: fax: Referral ID Status Reason Start Date Expiration Date Visits Re quested Visits Authorized [id number] Closed 2022 02/19/2023 1 50 Encounter Details Date Type Department Care Team (Late st Contact Info) Description 04/04/2021 9:00 AM CDT Infusion [facility] [place] [facility] [address] [facility] [address] [place] [address] Malignant carcinoid tumor of stomach [...] on file 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 Gender Identity Female 06/07/2020 8:39 AM CDT Sexual Orientation Not on file 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 Not on mikie e documented as of this encounter Last Filed Vital Signs Vital Sign Reading Time Taken Comments Blood Pressure 119/73 04/04/2021 8:41 AM CDT Pulse 64 04/04/2021 8:41 AM CDT Temperature - - Respiratory Rate - - Oxygen Saturation 99% 04/04/2021 8:41 AM CDT Inhaled Oxygen Concentration - - Weight 69.9 kg (154 lb) 04/04/2021 8:41 AM CDT Height - - Body Mass Index 26.43 03/28/2021 10:17 AM CDT documented in this encounter Nursing Notes * Joanne Abbott RN - 04/04/2021 9:00 AM CDT Patient tolerated injection well to [...] 10 mg 10 mg, intramuscular, Once, On Wed04/04/21 at 0915, For 1 dose, Refrigerate. For IM intragluteal administration only- alternate gluteal sites. Shamir.Indications:Malignant carcinoid tumor of stomach (HCC) Given 04/04/2021 8:50 AM CDT 10 mg Right Dorsogluteal/Butt ock documented in this encounter Orders Appointment Requests Count Last Ordered Date Fi rst Ordered Date ONCBCN INJECTION APPOINTMENT REQUEST 1 03/18 documented in this encounter Care Teams Documentation Lead Relationship Specialty Start Date End Date Elizabeth Borrego PA [address] [facility] [address] [place], [place] [id number] PCP - General Internal Medicine 03/25/20 09/27/23 Luann Lawrence, ANUP Nurse Practitioner Nurse Practitioner 01/06/19 Adarsh Tuttle MD [address] [facility] [address] [place] [address] Consulting Physician Gastroenterology 02/22/19 Sebastien Martinez DO [address] [place] [address] Medical Oncologist/Concrete Bucket Unloader Hematology and Oncology 02/22/19 Guru Winters DO [facility] [address] Consulting Physician Gastroenterology 02/22/19 Gato Abrams MD [address] [place] [id number] Surgeon Surgical Oncology 09/07/19 Marina Rosales MD [address] [facility] 500 [place] [address] Consulting Physician General Surgery 03/24/21 documented as of this encounter
--- OUTSIDE RECORDS SUMMARY | 2024-10-04 03:02 | XMS_ITS | Encounter Summary ---
Author Organization [facility] Address [address] [facility] [address] [place] [address] Care Team Providers Care Ordnance Officer Name Role Phone Luann Lawrence NP Unavailable Adarsh Tuttle MD Unavailable Sebastien Martinez DO Unavailable Guru Winters DO Unavailable [phone] Gato Abrams MD Unavailable [phone] Elizabeth Borrego Primary Care Provider [phone] Encounter Details Date Type Department Care Team (Late st Contact Info) Description 11/19/2020 Orders Only [facility] Family Medicine [address] [facility] [address] [place] [address] Milton Engle MD [address] [facility] [address] [place] [address] Social History Tobacco Use Types Packs/Day Years [...] file 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 Gender Identity Female 06/07/2020 8:39 AM CDT Sexual Orientation Not on file 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 08/21/2020 08/23/2020 12/19/2020 3:[address] documented as of this encounter Care Teams Ordnance Officer Relationship Specialty Start Date End Date Elizabeth Borrego PA [address] [facility] [address] [place] [address] PCP - General Internal Medicine 03/25/20 09/27/23 Luann Lawrence NP Nurse Practitioner Nurse Practitioner 01/06/19 Adarsh Tuttle MD [address] [facility] [address] [place] [address] Consulting Physician Gastroenterology 02/22/19 Sebastien Martinez DO 1418 [facility] 180 [place] [address] Medical Oncologist/Varnisher Plasticoater Hematology and Oncology 02/22/19 Guru Winters DO 1418 [facility] 180 [place] [address] Consulting Physician Gastroenterology 02/22/19 Gato Abrams MD [address] [place] [address] Surgeon Surgical Oncology 09/07/19 documented as of this encounter
--- OUTSIDE RECORDS SUMMARY | 2024-10-04 03:02 | XMS_ITS | Encounter Summary ---
Author Organization [facility] Address [address] [place] [address] Phone Care Team Providers Care Greenskeeper Name Role Phone Luann Lawrence ANUP Unavailable [phone] Adarsh Tuttle MD Unavailable Sebastien Martinez DO Unavailable Guru Winters DO Unavailable [phone] Gato Abrams MD Unavailable [phone] Elizabeth Borrego Primary Care Provider [phone] Marina Rosales MD Unavailable [phone] Encounter Details Date Type Department Care Team (Late st Contact Info) Description 04/04/2021 Orders Only [facility] Oncology 1418 [facility] [address] [place] [address] Sebastien Martinez DO [address] [facility] [address] [place] [address] Malignant carcinoid tumor of stomach (CMS/HCC) [...] on file 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 Gender Identity Female 06/07/2020 8:39 AM CDT Sexual Orientation Not on file 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 e documented as of this encounter Plan of Treatment Not on file documented as of this encounter Visit Diagnoses Diagnosis Malignant carcinoid tumor of stomach (HCC)- Primary Malignant carcinoid tumor of the stomach documented in this encounter Care Teams Greenskeeper Relationship Specialty Start Date End Date Elizabeth Borrego PA [address] [facility] 500 [place] [address] PCP - General Internal Medicine 03/25/20 09/27/23 Luann Lawrence NP Nurse Practitioner Nurse Practitioner 01/06/19 Adarsh Tuttle MD [address] [facility] 210 [place] [address] Consulting Physician Gastroenterology 02/22/19 Sebastien Martinez DO [address] [place] [address] Medical Oncologist/Head Cleaning Porter Hematology and Oncology 02/22/19 Guru Winters DO [address] [place] [address] Consulting Physician Gastroenterology 02/22/19 Gato Abrams MD 14[address] [facility] 180 [place] [address] Surgeon Surgical Oncology 09/07/19 Marina Rosales MD 10[address] [facility] 500 [place] [address] Consulting Physician General Surgery 03/24/21 documented as of this encounter
--- OUTSIDE RECORDS SUMMARY | 2024-10-04 03:02 | XMS_ITS | Encounter Summary ---
Author Organization [facility] Address [address] [place] [address] Care Team Providers Care Policy Service Coordinator Name Role Phone Luann Lawrence NP Unavailable [phone] Adarsh Tuttle MD Unavailable [phone] Sebastien Martinez DO Unavailable [phone] Guru Winters DO Unavailable [phone] Gato Abrams MD Unavailable [phone] Elizabeth Borrego Primary Care Provider [phone] Marina Rosales MD Unavailable Encounter Details Date Type Department Care Team (Late st Contact Info) Description 04/04/2021 8:30 AM CDT Lab [facility] [address] [place] [address] Malignant carcinoid tumor of stomach (CMS/HCC) Social History Tobacco Use Types Packs/Day Years [...] on file 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 Gender Identity Female 06/07/2020 8:39 AM CDT Sexual Orientation Not on file 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 Not on mikie e documented as of this encounter Plan of Treatment Not on file documented as of this encounter Procedures Procedure Name Priority Date/Time Associated Diagnosis Comments EGFR Routine 04/04/2021 8:36 AM CDT Malignant carcinoid tumor of stomach (CMS/HCC) DIFFERENTIAL AUTO STAT 04/04/2021 8:3 6 AM CDT Malignant carcinoid tumor of stomach (CMS/HCC) CBC WITH AUTO DIFFERENTIAL STAT 04/04/2021 8:36 AM CDT Malignant carcinoid tumor of stomach (CMS/HCC) COMPREHENSIVE METABOLIC PANEL Routine 04/04/2021 8:36 AM CDT Malignant carcinoid tumor of stomach (CMS/HCC) documented in this encounter Results * eGFR (04/04/2021 8:36 AM CDT) eGFR 103 mL/min/1.7 3 m2 [...] was last reviewed 2020 Testing performed by: [address] [address] Blood specimen (specimen) 04/04/2021 8:36 AM CDT 04/04/2021 8:37 AM CDT us Sebastien Martinez DO LAB BLOOD ORDERABLES Final R esult [facility] Department [place] [address] * Differential, auto (04/04/2021 8:36 AM CDT) Neutrophil abs 1.9 1.7 - 6.5 K/cumm ANDREA Comment:Testing performed by : [address] [address] Lymphocyte abs 1.1 0.8 - 3.3 K/cumm ANDREA Comment:Testing performed by : [address] [address] Monocyte abs 0.2 0.2 - 0.8 K/cumm ANDREA Comment:Testing performed by : [address] [address] Eosinophil abs 0.2 0.0 - 0.5 K/cumm ANDREA Comment:Testing performed by : [address] [address] Neutrophil pct 55.2 % ANDREA Comment: Interpretive Data Percent cell count reference ranges are not reported, since discordance with absolute values may lead to misinterpretation of CBC data. Current Interpretive Data was last revised on 2018. Testing performed by: [address] [address] Imm gran pct 0.3 % [facility] Comment: Interpretive Data Percent cell count reference ranges are not reported, since discordance with absolute values may lead to misinterpretation of CBC data. Current Interpretive Data was last revised on 2018. Testing performed by: [address] [address] Lymphocyte pct 31.9 % [facility] Comment: Interpretive Data Percent cell count reference ranges are not reported, since discordance with absolute values may lead to misinterpretation of CBC data. Current Interpretive Data was last revised on 2018. Testing performed by: [address] [address] Monocyte pct 6.3 % [facility] Comment: Interpretive Data Percent cell count reference ranges are not reported, since discordance with absolute values may lead to misinterpretation of CBC data. Current Interpretive Data was last revised on 2018. Testing performed by: [address] [address] Eosinophil pct 5.1 % [facility] Comment: Interpretive Data Percent cell count reference ranges are not reported, since discordance with absolute values may lead to misinterpretation of CBC data. Current Interpretive Data was last revised on 2018. Testing performed by: [address] [address] Basophil pct 1.2 % [facility] Comment: Interpretive Data Percent cell count reference ranges are not reported, since discordance with absolute values may lead to misinterpretation of CBC data. Current Interpretive Data was last revised on 2018. Testing performed by: [address] [address] Blood specimen (specimen) 04/04/2021 8:36 AM CDT 04/04/2021 8:37 AM CDT us Sebastien Martinez DO LAB BLOOD ORDERABLES Final R esult ANDREA [facility] [address] [facility] Department of Laboratories [place], [place] [id number] * (ABNORMAL) CBC with auto differential (04/04/2021 8:36 AM CDT) [facility] WBC 3.4(L) 3.8 - 9.9 K/cumm ANDREA Comment:Testing performed by : [address] [address] Hgb 12.5 11.9 - 15.5 g/dL ANDREA Comment:Testing performed by : [address], [address] Hct 36.3 35.6 - 45.5 % ANDREA Comment:Testing performed by : [address], [address] Plt 239 150 - 400 K/cumm ANDREA Comment:Testing performed by : [address], [address] MPV 9.5 9.1 - 12.3 fL ANDREA Comment:Testing performed by : [address], [address] RBC 4.17 3.90 - 5.20 M/cumm ANDREA Comment:Testing performed by : [address], [address] MCV 87.1 81.3 - 96.4 fL ANDREA Comment:Testing performed by : [address], [address] MCH 30.0 27.1 - 33.3 pg ANDREA Comment:Testing performed by : [address], [address] MCHC 34.4 32.3 - 35.7 g/dL ANDREA Comment:Testing performed by : [address], [address] RDW CV 11.6 11.1 - 14.9 % ANDREA Comment:Testing performed by : [address], [address] RDW SD 36.7 35.7 - 48.1 fL ANDREA Comment:Testing performed by : [address], [address] Blood specimen (specimen) 04/04/2021 8:36 AM CDT 04/04/2021 8:37 AM CDT us Sebastien Martinez DO LAB BLOOD ORDERABLES Final R esult ANDREA CASTILLO [address] [facility] Department [place] [address] * Comprehensive metabolic panel (04/04/2021 8:36 AM CDT) Sodium 140 135 - 145 mmol/L ANDREA Comment:Testing performed by : [address] [address] Potassium, pl 4.5 3.3 - 4.9 mmol/L ANDREA Comment:Testing performed by : [address] [address] Chloride 104 97 - 110 mmol/L ANDREA Comment:Testing performed by : [address] [address] CO2 29 22 - 32 mmol/L ANDREA Comment:Testing performed by : [address] [address] Anion gap 7 2 - 15 mmol/L ANDREA Comment:Testing performed by : [address] [address] BUN 16 8 - 25 mg/dL ANDREA Comment:Testing performed by : [address] [address] Creatinine 0.60 0.60 - 1.10 mg/dL ANDREA Comment:Testing performed by : [address] [address] Glucose 118 70 - 199 mg/dL ANDREA [...] was last revised 2017. Testing performed by: [facility], [address] [place] [address]., [address] Calcium 9.5 8.5 - 10.3 mg/dL ANDREA Comment:Testing performed by : [address] [address] Bilirubin, total 0.2 0.1 - 1.2 mg/dL ANDREA Comment:Testing performed by : [address] [address] Protein, pl 7.2 6.5 - 8.5 g/dL ANDREA Comment:Testing performed by : [address] [address] Albumin 4.3 3.5 - 5.0 g/dL ANDREA Comment:Testing performed by : [address] [address] Alk phos 91 40 - 130 Units/L [facility] Comment:Testing performed by : [address] [address] ALT 39 7 - 45 Units/L [facility] Comment:Testing performed by : [address] [address] AST 39 10 - 45 Units/L [facility] Comment:Testing performed by : [address] [address] Blood specimen (specimen) 04/04/2021 8:36 AM CDT 04/04/2021 8:37 AM CDT Sebastien Martinez DO LAB BLOOD ORDERABLES Final R esult ANDREA [address] [facility] Department [place] [address] documented in this encounter Visit Diagnoses Diagnosis Malignant carcinoid tumor of stomach (HCC) Malignant carcinoid tumor of the stomach documented in this encounter Orders Appointment Requests Count Last Ordered Date Fi rst Ordered Date ONCBCN LAB APPOINTMENT 1 04/04/2021 documented in this encounter Care Teams Policy Service Coordinator Relationship Specialty Start Date End Date Elizabeth Borrego PA [address] [place] [address] PCP - General Internal Medicine 03/25/20 09/27/23 Luann Lawrence, ANUP Nurse Practitioner Nurse Practitioner 01/06/19 Adarsh Tuttle MD [address] [place] [address] Consulting Physician Gastroenterology 02/22/19 Sebastien Martinez DO [address] [place] [address] Medical Oncologist/Cabin Outfitter Hematology and Oncology 02/22/19 Guru Winters DO [address] [place] [address] Consulting Physician Gastroenterology 02/22/19 Gato Abrams MD [address] [place] [address] Surgeon Surgical Oncology 09/07/19 Marina Rosales MD [address] [place] [address] Consulting Physician General Surgery 03/24/21 documented as of this encounter
--- OUTSIDE RECORDS SUMMARY | 2024-10-04 03:02 | XMS_ITS | Encounter Summary ---
Author Organization Formerly [facility] Address [address] [place] [address] Care Team Providers Care Intermodal Truck Driver Name Role Phone Luann Lawrence NP Unavailable [phone] Adarsh Tuttle MD Unavailable Sebastien Martinez DO Unavailable [phone] Guru Winters DO Unavailable [phone] Gato Abrams MD Unavailable Elizabeth Borrego Primary Care Provider [phone] Marina Rosales MD Unavailable [phone] Reason for Visit * Auth/Cert Specialty Diagnoses / Procedures Referred By Contac t Referred To Contact Diagnoses Malignant carcinoid tumor of the stomach (HCC) Malignant carcinoid tumor of the stomach (CMS/HCC) [C7A.092] Procedures EUS Referral ID Status Reason Start Date Expiration Date Visits Re quested Visits Authorized [id number] 1 1 Encounter Details Date Type Department Care Team (Latest Contact Info) Description 04/07/2021 11:30 AM CDT - 04/07/2021 12:00 PM CDT Surgery [facility] [address] [place] [id number] Adarsh Tuttle MD [address] [facility] [address] [place] [address] ESOPHAGOGASTRODUODENOSCOPY ULTRASOUND EXAM LIMITED Surgery Details Date/Time Status Location OR Service Patient Class Case Class Case Type Trauma Case? 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6 cm (5' 4 ) 04/07/2021 11:03 AM CDT Body Mass Index 25.75 04/07/2021 11:03 AM CDT documented in this encounter Medications at Time of Discharge cholecalciferol (VITAMIN D-3) 1,000 unit capsuleIndicatio ns:Vitamin D Deficiency Take 2 capsules (2,000 Units total) by mouth director of fundraising before breakfast ALPRAZolam (XANAX) 0.25 mg tablet Take 1 tablet (0.25 mg total) by mouth 3 (three) times a day as needed for anxiety 30 tablet 08/09/2020 1 buPROPion XL (WELLBUTRIN XL) 150 mg [...] 1 tablet (200 mg total) by mouth director of fundraising before breakfast 01/30/2019 3 multivitamin capsuleIndicatio ns:Vitamin Deficiency Prevention Take 1 capsule by mouth director of fundraising before breakfast 4 octreotide (SandoSTATIN) 100 mcg/mL [...] H&P Notes * Adarsh Tuttle MD - 04/07/2021 1:16 PM CDT ENDOSCOPY PRE-PROCEDURE MEDICAL HISTORY & PHYSICAL Fabiola Gibson 55 y.o. female BP 118/79 Pulse 56 Temp 36.6 ??C (97.9 ??F) (Tympanic) Resp 12 Ht 162.6 cm (5' 4 ) Wt 68 kg (150 lb) SpO2 100% BMI 25.75 kg/m?? History: Past Medical History: Diagnosis Date ??? Anemia ??? Cancer (CMS/HCC) carcinode tumors ??? Carcinoid tumor of stomach ??? Chronic diarrhea ??? Colon polyp ??? Depression ??? Heart murmur ??? Hyperlipidemia ??? Hypertension ??? Left bundle branch block ??? Rheumatoid arthritis (CMS/HCC) ??? Urinary tract infection years ago No Known Allergies No medications prior to admission. Current Facility-Administered Medications Medication Dose Route Frequency Provider Last Rate Last Admin ??? Lactated Ringer's (LR) infusion 30 mL/hr intravenous Continuous Adarsh Tuttle MD Stopped at04/07/21 1230 ??? sodium chloride 0.9% infusion 30 mL/hr intravenous Continuous Adarsh Tuttle MD Current Outpatient Medications Medication Sig Dispense Refill ??? buPROPion XL (WELLBUTRIN XL) 150 mg 24 hr tablet Take 1 tablet (150 mg total) by mouth every morning 90 tablet 3 ??? cholecalciferol (VITAMIN D3) 1,000 unit capsule Take 2,000 Units by mouth director of fundraising before breakfast ??? cyanocobalamin (Vitamin B-12) 1,000 mcg/mL injection Inject 1 mL (1,000 mcg total) into the muscle as instructed every 30 (thirty) days 3 mL 2 ??? escitalopram (LEXAPRO) 10 mg tablet Take 1 tablet (10 mg total) by mouth every morning 90 tablet 3 ??? hydroxychloroquine (PLAQUENIL) 200 mg tablet Take 400 mg by mouth director of fundraising before breakfast ??? multivitamin capsule Take 1 capsule by mouth director of fundraising before breakfast ??? octreotide LAR (SandoSTATIN LAR) 20 mg suspension,extended rel recon Inject 10 mg into the muscle as instructed every 28 (twenty-eight) days Pt unsure of dosage ??? pravastatin (PRAVACHOL) 40 mg tablet Take 1 tablet (40 mg total) by mouth every morning 90 tablet 3 ??? valsartan-hydroCHLOROthiazide (DIOVAN-HCT) 80-12.5 mg per tablet TAKE 1 TABLET BY MOUTH DAILY 90 tablet 3 ??? ALPRAZolam (XANAX) 0.25 mg tablet Take 1 tablet (0.25 mg total) by mouth 3 (three) times a day as needed for anxiety 30 tablet 0 ??? 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 She presents for follow up Providers: Adarsh Tuttle M.D. Referring MD: Elizabeth Borrego PA-C, Sebastien Martinez D.O., Gato Abrams M.D. Medicines: Monitored Anesthesia Care Complications: No immediate complications. Estimated blood loss: None. Estimated Blood Loss: Estimated blood loss: none. Procedure: The risks, benefits and alternatives were discussed and informed consent was obtained.The Endosonoscope was introduced through the mouth, and advanced to the jejunum The Endoscope was introduced through the mouth, and [...] The efferent limb was examined. The examined jejunum was normal. ENDOSONOGRAPHIC FINDING: : The region of the celiac plexus and celiac ganglia was visualized and showed no sign of significant endosonographic abnormality. The vascular anatomy of the region was normal. Pancreatic parenchymal abnormalities were noted in the entire pancreas. These consisted of atrophy. The pancreatic duct had a dilated endosonographic appearance in the main pancreatic duct. The pancreatic duct measured up to 3.2 mm in diameter. A round nodule was identified in the pancreatic head and uncinate process of the pancreas. The mass was hypoechoic. The mass measured 7.4 mm by 6 mm in maximal cross-sectional diameter. The endosonographic borders were well-defined. An intact interface was seen between the nodule and the adjacent structures suggesting a lack of invasion. The nodule was too small to obtain adequate tissue. The portal vein was visualized in the path of the needle. Therefore FNA was not attempted to minimize risk. The ampulla and part of the uncinate were not reached due to the B-II anatomy. There was no sign of significant endosonographic abnormality in the common bile duct. The maximum diameter of the duct was 6 mm. An unremarkable gallbladder and no pathologic lymphadenopathy were identified. The GB appeared distended. There was no sign of significant endosonographic abnormality in the right lobe of the liver. Homogeneous parenchyma and no focal pathology were identified. Endosonographic images of the stomach were unremarkable. No pathologic lymphadenopathy, no masses and no wall thickening were identified. Impression: EGD impression: - Normal esophagus. - Gastric mucosal atrophy. There was no evidence of polyps, nodules or mass in the entire stomach. - Patent Billroth II gastrojejunostomy was found, characterized by healthy appearing mucosa. - Normal examined jejunum. EUS impression: - The pancreatic duct had a mildly dilated endosonographic appearance in the main pancreatic duct. - A small nodule was identified in the pancreatic head and uncinate process of the pancreas corresponding to the scan. Tissue has not been obtained. However, the endosonographic appearance is of a neuroendocrine tumor. This was staged T1 N0 Mx by endosonographic criteria. - Sonographic appearance of the stomach was unremarkable. - No specimens collected. Recommendation: - The patient will be observed post-procedure, until all discharge criteria are met. - Repeat the upper endoscopic ultrasound in 1 year for surveillance of the stomach and the pancreatic NET. - The findings and recommendations were discussed with the patient and their family. Attending Participation: I personally performed the entire procedure. Electronically signed by Adarsh Tuttle MD Adarsh Tuttle M.D. 04/07/2021 12:21:18 PM This document was signed electronically. Number of Addenda: 0 Note Initiated On: 04/07/2021 11:39 AM Scope In: Scope Out: documented in this encounter Plan of Treatment Pending Results Name Type Priority Associated Diagnoses Date /Time US Endoscopy Endo Imaging Procedure IP Routine Malignant carcinoid tumor of the stomach (CMS/HCC) 04/07/2021 12:04 PM CDT documented as of this encounter Procedures Procedure Name Priority Date/Time Associated Diagnosis Comments US ENDOSCOPIC IP Routine 04/07/2021 12:04 PM CDT Malignant carcinoid tumor of the stomach (CMS/HCC) ESOPHAGOGASTRODUODENOSCOPY ULTRASOUND EXAM LIMITED 04/07/2021 11:45 AM CDT Malignant carcinoid tumor of the stomach (CMS/HCC) EUS 04/07/2021 11:39 AM CDT POCT HCG, URINE Routine 04/07/2021 11:08 AM CDT documented in this encounter Results * EUS (04/07/2021 11:39 AM CDT) Anatomical Region Laterality Modality Other Narrative Procedure Note Adarsh Tuttle MD - 04/07/2021 11:39 AM CDT ENDOSCOPY LAB Patient Name: Fabiola Gibson Procedure Date: 04/07/2021 11:39 AM Admit Type: Outpatient Room: [facility] Date of : 1965 Instrument Name: [id number] Gender: Female Note Status: Finalized Procedure: Upper EUS Indications: Gastric carcinoid 2019 treated with endoscopic resection and partial gastrectomy, 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 She presents forfollow up Providers: Adarsh Tuttle M.D. Referring MD: Elizabeth Borrego PA-C, Sebastien Martinez D.O.,Gato Abrams M.D. Medicines: Monitored Anesthesia Care Complications: No immediate complications. Estimated blood loss:None. Estimated Blood Loss: Estimated blood loss: none. Procedure: The risks, benefits and alternatives were discussed and informed consent was obtained.The Endosonoscope was introduced through the mouth, and advanced tothe jejunum The Endoscope was introduced through the mouth, and [...] The efferent limb was examined. The examined jejunum was normal. ENDOSONOGRAPHIC FINDING: : The region of the celiac plexus and celiac ganglia was visualized and showed no sign of significant endosonographic abnormality. Thevascular anatomy of the region was normal. Pancreatic parenchymal abnormalities were noted in the entirepancreas. These consisted of atrophy. The pancreatic duct had a dilated endosonographic appearance in themain pancreatic duct. The pancreatic duct measured up to 3.2 mm indiameter. A round nodule was identified in the pancreatic head and uncinate process of the pancreas. The mass was hypoechoic. The mass measured7.4 mm by 6 mm in maximal cross-sectional diameter. The endosonographic borders were well-defined. An intact interface was seen between the nodule and the adjacent structures suggesting a lack of invasion. The nodule was too small to obtain adequate tissue. The portal vein was visualized in the path of the needle. Therefore FNA was not attemptedto minimize risk. The ampulla and part of the uncinate were not reacheddue to the B-II anatomy. There was no sign of significant endosonographic abnormality in the common bile duct. The maximum diameter of the duct was 6 mm. An unremarkable gallbladder and no pathologic lymphadenopathy were identified. The GB appeared distended. There was no sign of significant endosonographic abnormality in the right lobe of the liver. Homogeneous parenchyma and no focalpathology were identified. Endosonographic images of the stomach were unremarkable. Nopathologic lymphadenopathy, no masses and no wall thickening were identified. Impression: EGD impression: - Normal esophagus. - Gastric mucosal atrophy. There was no evidence of polyps, nodules or mass in the entire stomach. - Patent Billroth II gastrojejunostomy was found, characterized by healthy appearing mucosa. - Normal examined jejunum. EUS impression: - The pancreatic duct had a mildly dilated endosonographic appearance in the main pancreaticduct. - A small nodule was identified in the pancreatichead and uncinate process of the pancreas correspondingto the scan. Tissue has not been obtained. However,the endosonographic appearance is of a neuroendocrine tumor. This was staged T1 N0 Mx by endosonographic criteria. - Sonographic appearance of the stomach was unremarkable. - No specimens collected. Recommendation: - The patient will be observed post-procedure,until all discharge criteria are met. - Repeat the upper endoscopic ultrasound in 1 yearfor surveillance of the stomach and the pancreaticNET. - The findings and recommendations were discussedwith the patient and their family. Attending Participation: I personally performed the entire procedure. Electronically signed by Adarsh Tuttle MD Adarsh Tuttle M.D. 04/07/2021 12:21:18 PM This document was signed electronically. Number of Addenda: 0 Note Initiated On: 04/07/2021 11:39 AM Scope In: Scope Out: us Adarsh Tuttle MD ENDOSCOPY PROCEDURES Final Re sult * POCT hCG, urine (04/07/2021 11:08 AM CDT) HCG, ur, POC Negative Lot Number [id number] QC Backgroud Clear Acceptable QC Control Line Acceptable Urine 04/07/2021 11:0 8 AM CDT us Adarsh Tuttle MD POINT OF CARE TEST ORDERABLES Final Result documented in this encounter Visit [...] infusion 30 mL/hr, intravenous, Continuous, Starting on Wed04/07/21 at 1145 Rate/Dose Verify 04/07/2021 11:45 AM CDT 30 mL/hr New Bag 04/07/2021 11:11 AM CDT 30 mL/hr 30 mL/hr sodium chloride 0.9% infusion 30 mL/hr, intravenous, Continuous, Starting on Wed04/07/21 at 1145, Pre- Procedure (GI) documented in this encounter Discontinued Medications Medication Sig Discontinue Reason Start Date End Da te Insulin Syringe MicroFine 1/2 mL 28 gauge x 1/2 syringe Therapy completed 08/26/2020 insulin syringe-needle U-100 1 mL 29 gauge x 1/2 syringe 1 Syringe every 30 (thirty) days Therapy completed 01/09/2021 04/07/2021 documented as of this encounter Active and Recently Administered Medications Times are shown in CDT. Continuous Medication Order 04/05/2021 04/06/2021 04/07/2021 Lactated Ringer's (LR) infusion 30 mL/hr, intravenous, Continuous, Starting on Wed04/07/21 at 1145 1111 (New Bag - Prov ider: Luz Ribeiro RN)1145 (Rate/Dose Verify - Provider: Adarsh Tuttle MD)1230 (Stopped - Provider: Peggy Marte RN) sodium chloride 0.9% infusion 30 mL/hr, intravenous, Continuous, Starting on Wed04/07/21 at 1145, Pre-Procedure (GI) 1145 (Due) documented in this encounter Orders Medications Ordered That Anthony ht Not Have Been Administered Count Last Ordered Date First Ordered Date sodium chloride 0.9% infusion 1 04/07/2021 Discharge Count Last Ordered Date First Orde red Date DISCHARGE PATIENT 1 04/07/2021 documented in this encounter Care Teams Intermodal Truck Driver Relationship Specialty Start Date End Date Elizabeth Borrego PA [address] [place] [address] PCP - General Internal Medicine 03/25/20 09/27/23 Luann Lawrence, ANUP Nurse Practitioner Nurse Practitioner 01/06/19 Adarsh Tuttle MD [address] [place] [address] Consulting Physician Gastroenterology 02/22/19 Sebastien Martinez DO [facility] [address] Medical Oncologist/Tilting Head Band Sawyer Hematology and Oncology 02/22/19 Guru Winters DO [address] [place] [id number] Consulting Physician Gastroenterology 02/22/19 Gato Abrams MD [address] [place] [id number] Surgeon Surgical Oncology 09/07/19 Marina Rosales MD [address] [facility] [place] [address] Consulting Physician General Surgery 03/24/21 documented as of this encounter
--- OUTSIDE RECORDS SUMMARY | 2024-10-04 03:02 | XMS_ITS | Encounter Summary ---
Author Organization [facility] Address [address] [place] [address] Care Team Providers Care Cad Detailer Name Role Phone Luann Lawrence NP Unavailable [phone] Adarsh Tuttle MD Unavailable Sebastien Martinez DO Unavailable [phone] Guru Winters DO Unavailable [phone] Gato Abrams MD Unavailable [phone] Elizabeth Borrego Primary Care Provider [phone] Marina Rosales MD Unavailable [phone] Reason for Visit * Auth/Cert Specialty Diagnoses / Procedures Referred By Contac t Referred To Contact Diagnoses Malignant carcinoid tumor of the stomach (HCC) Malignant carcinoid tumor of the stomach (CMS/HCC) [C7A.092] Procedures EUS Referral ID Status Reason Start Date Expiration Date Visits Re quested Visits Authorized [id number] 1 1 Encounter Details Date Type Department Care Team (Latest Contact Info) Description 04/07/2021 10:33 AM CDT - 04/07/2021 1:16 PM CDT Hospital Encounter [facility] [address] [place] [id number] Adarsh Tuttle MD [address] [place] [address] Malignant carcinoid tumor of the stomach (CMS/HCC) Discharge Disposition: Discharge to home [...] on file 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 Gender Identity Female 06/07/2020 8:39 AM CDT Sexual Orientation Not on file 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 Not on file Not on mikie e documented as of this encounter Last Filed Vital Signs Vital Sign Reading Time Taken Comments Blood Pressure 118/79 04/07/2021 12:40 PM CDT Pulse 56 04/07/2021 12:40 PM CDT Temperature 36.6 ??C (97.9 ??F) 04/07/2021 11:03 AM C DT Respiratory Rate 12 04/07/2021 12:40 PM CDT Oxygen Saturation 100% 04/07/2021 12:40 PM CDT Inhaled Oxygen Concentration - - Weight 68 kg (150 lb) 04/07/2021 11:03 AM CDT Height 162.6 cm (5' 4 ) 04/07/2021 11:03 AM CDT Body Mass Index 25.75 04/07/2021 11:03 AM CDT documented in this encounter Medications at Time of Discharge cholecalciferol (VITAMIN D-3) 1,000 unit capsuleIndicatio ns:Vitamin D Deficiency Take 2 capsules (2,000 Units total) by mouth early childhood education specialist before breakfast ALPRAZolam (XANAX) 0.25 mg tablet [...] 1 tablet (200 mg total) by mouth early childhood education specialist before breakfast 01/30/2019 3 multivitamin capsuleIndicatio ns:Vitamin Deficiency Prevention Take 1 capsule by mouth early childhood education specialist before breakfast 4 octreotide (SandoSTATIN) 100 mcg/mL [...] unit capsule Take 2,000 Units by mouth early childhood education specialist before breakfast ??? cyanocobalamin (Vitamin B-12) 1,000 mcg/mL injection Inject 1 mL (1,000 mcg total) into the muscle as instructed every 30 (thirty) days 3 mL 2 ??? escitalopram (LEXAPRO) 10 mg tablet Take 1 tablet (10 mg total) by mouth every morning 90 tablet 3 ??? hydroxychloroquine (PLAQUENIL) 200 mg tablet Take 400 mg by mouth early childhood education specialist before breakfast ??? multivitamin capsule Take 1 capsule by mouth early childhood education specialist before breakfast ??? octreotide LAR (SandoSTATIN LAR) [...] 04/07/2021 11:39 AM Admit Type: Outpatient Room: [facility] Date of : 1965 Instrument Name: [id number] [...] 04/07/2021 11:39 AM Admit Type: Outpatient Room: [facility] Date of : 1965 Instrument Name: [id number] [...] 04/07/2021 11:39 AM Scope In: Scope Out: Adarsh Tuttle MD ENDOSCOPY PROCEDURES Final Re sult * POCT hCG, urine (04/07/2021 11:08 AM CDT) HCG, ur, POC Negative Lot Number [id number] QC Backgroud Clear Acceptable QC Control Line Acceptable Urine 04/07/2021 11:0 8 AM CDT Adarsh Tuttle MD POINT OF CARE TEST [...] infusion 30 mL/hr, intravenous, Continuous, Starting on 04/07/21 at 1145 Rate/Dose Verify 04/07/2021 11:45 AM [...] 1145 1111 (New Bag - Prov ider: uLz Ribeiro, BYRON)1145 (Rate/Dose Verify - Provider: Adarsh Tuttle MD)1230 [...] 04/07/2021 documented in this encounter Care Teams Cad Detailer Relationship Specialty Start Date End Date Elizabeth Borrego PA [address] [facility] [place] [address] PCP - General Internal Medicine 03/25/20 09/27/23 Luann Lawrence NP Nurse Practitioner Nurse Practitioner 01/06/19 Adarsh Tuttle MD [address] [facility] [address] [place] [address] Consulting Physician Gastroenterology 02/22/19 Sebastien Martinez DO [address] [place] [id number] Medical Oncologist/Air Quality Engineer Hematology and Oncology 02/22/19 Guru Winters DO [address] [place] [id number] Consulting Physician Gastroenterology 02/22/19 Gato Abrams MD [address] [place] [id number] Surgeon Surgical Oncology 09/07/19 Marina Rosales MD [address] [facility] [address] [place] [address] Consulting Physician General Surgery 03/24/21 documented as of this encounter
--- OUTSIDE RECORDS SUMMARY | 2024-10-04 03:02 | XMS_ITS | Encounter Summary ---
Author Organization [facility] Address [address] [place] [address] Phone Care Team Providers Care Textiles And Clothing Teacher Name Role Phone Luann Lawrence ANUP Unavailable [phone] Adarsh Tuttle MD Unavailable [phone] Sebastien Martinez DO Unavailable [phone] Guru Winters DO Unavailable [phone] Gato Abrams MD Unavailable [phone] Elizabeth Borrego Primary Care Provider [phone] Marina Rosales MD Unavailable [phone] Encounter Details Date Type Department Care Team (Late st Contact Info) Description 05/02/2021 Orders Only [facility] Physicians 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 Not on mikie e documented as of this encounter Plan of Treatment Not on file documented as of this encounter Visit Diagnoses Diagnosis Malignant carcinoid tumor of stomach (HCC)- Primary Malignant carcinoid tumor of the stomach documented in this encounter Care Teams Textiles And Clothing Teacher Relationship Specialty Start Date End Date Elizabeth Borrego PA [address] [facility] 500 [place] [address] PCP - General Internal Medicine 03/25/20 09/27/23 Luann Lawrence NP Nurse Practitioner Nurse Practitioner 01/06/19 Adarsh Tuttle MD [address] [facility] [address] [place] [address] Consulting Physician Gastroenterology 02/22/19 Sebastien Martinez DO [address] [place] [address] Medical Oncologist/Wireless Sales Associate Hematology and Oncology 02/22/19 Guru Winters DO [address] [place] [address] Consulting Physician Gastroenterology 02/22/19 Gato Abrams MD [address] [place] [address] [address] [place] [address] Surgeon Surgical Oncology 09/07/19 Marina Rosales MD 1095 [facility] 500 [place], [place] [id number] Consulting Physician General Surgery 03/24/21 documented as of this encounter
--- OUTSIDE RECORDS SUMMARY | 2024-10-04 03:02 | XMS_ITS | Encounter Summary ---
Author Organization [facility] Address [address] [facility] [address] [place] [address] Phone Care Team Providers Care Accident Report Clerk Name Role Phone Luann Lawrence ANUP Unavailable [phone] Adarsh Tuttle MD Unavailable [phone] Sebastien Martinez DO Unavailable [phone] Guru Winters DO Unavailable [phone] Gato Abrams MD Unavailable [phone] Elizabeth Borrego Primary Care Provider [phone] Marina Rosales MD Unavailable [phone] Reason for Visit * Reason Onset Date Comments Scheduling Appointments 04/04/2021 Encounter Details Date Type Department Care Team (Late st Contact Info) Description 04/04/2021 Telephone [facility] Surgery [facility] Advanced Medicine 8th [place] [address] [place] [address] Gato Abrmas MD [address] [facility] [id number] [place] [address] Scheduling Appointments Social History Tobacco Use Types [...] on file 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 Gender Identity Female 06/07/2020 8:39 AM CDT Sexual Orientation Not on file 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 Not on file Not on mikie e documented as of this encounter Miscellaneous Notes * Telephone Encounter - Edda Apodaca RMA - 04/04/2021 3:07 PM CDT Scheduled and called pt with date/times of appointments but there was no answer, left message for her to return my call documented in this encounter Plan of Treatment Not on file documented as of this encounter Visit Diagnoses Not on filedocumented in this encounter Care Teams Accident Report Clerk Relationship Specialty Start Date End Date Elizabeth Borrego PA 10[address] [facility] 500 [place] [address] PCP - General Internal Medicine 03/25/20 09/27/23 Luann Lawrence NP Nurse Practitioner Nurse Practitioner 01/06/19 Adarsh Tuttle MD [address] [facility] [address] [place] [address] Consulting Physician Gastroenterology 02/22/19 Sebastien Martinez DO [address] [address] Medical Oncologist/Hr Specialist Hematology and Oncology 02/22/19 Guru Winters DO [address] [place] [address] Consulting Physician Gastroenterology 02/22/19 Gato Abrams MD [address] [place] [address] Surgeon Surgical Oncology 09/07/19 Marina Rosales MD 10[address] [facility] 500 [place] [address] Consulting Physician General Surgery 03/24/21 documented as of this encounter
--- OUTSIDE RECORDS SUMMARY | 2024-10-04 03:02 | XMS_ITS | Encounter Summary ---
Author Organization [facility] Address [address] [place] [address] Care Team Providers Care Transportation Department Head Name Role Phone Luann Lawrence NP Unavailable [phone] Adarsh Tuttle MD Unavailable [phone] Sebastien Martinez DO Unavailable [phone] Guru Winters DO Unavailable [phone] Gato Abrams MD Unavailable [phone] Elizabeth Borrego Primary Care Provider [phone] Encounter Details Date Type Department Care Team (Late st Contact Info) Description 11/18/2020 7:50 AM CIGAR HEAD HOLER - 12/15/2020 11:59 PM CIGAR HEAD HOLER Hospital Encounter [facility]IM Sebastien Martinez, DO [address] [id number] Social History Tobacco Use Types Packs/Day Years [...] on file 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:22 AM CIGAR HEAD HOLER Gender Identity Female 06/07/2020 8:39 AM CDT Sexual Orientation Not on file 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 Not on file Not on mikie e documented as of this encounter Medications at Time of Discharge cholecalciferol (VITAMIN D-3) 1,000 unit capsuleIndicatio ns:Vitamin D Deficiency Take 2 capsules (2,000 Units total) by mouth physiologist before breakfast ALPRAZolam (XANAX) 0.25 mg tablet [...] 1 tablet (200 mg total) by mouth physiologist before breakfast 01/30/2019 3 Insulin Syringe MicroFine 1/2 mL 28 gauge x 1/2 syringe 08/26/2020 1 insulin syringe-needle U-100 1 mL 29 gauge x 1/2 syringe 1 Syringe every 30 (thirty) days 100 each 08/26/2020 1 multivitamin capsuleIndicatio ns:Vitamin Deficiency Prevention Take 1 capsule by mouth physiologist before breakfast 4 octreotide (SandoSTATIN) 100 mcg/mL [...] every morning 90 tablet 3 10/01/2020 1 syringe and needle,insulin,1 mL (insulin syringe-needle U-100) 1 mL 29 gauge x 7/16 syringe insulin syringe U-100 with needle 1 mL 29 gauge x 7/16 U 1 SYRINGE Q 30 DAYS 1 valsartan-hydroC HLOROthiazide (DIOVAN-HCT) 80-12.5 mg per tabletIndication s:hypertension Take 1 tablet by mouth daily 90 tablet 3 10/01/2020 1 documented as of this encounter Plan of Treatment Not on file documented as of this encounter Visit Diagnoses Not on filedocumented in this encounter Additional Health Concerns Infection Onset Date Last Indicated Resolved Time COVID: Recovered Comment:Added based on recent COVID infection. 08/21/2020 08/23/2020 12/19/2020 3:[address] documented as of this encounter Care Teams Transportation Department Head Relationship Specialty Start Date End Date Elizabeth Borrego PA 10[address] [facility] [address] [place] [address] PCP - General Internal Medicine 03/25/20 09/27/23 Luann Lawrence NP Nurse Practitioner Nurse Practitioner 01/06/19 Adarsh Tuttle MD [address] [facility] [address] [place] [address] Consulting Physician Gastroenterology 02/22/19 Sebastien Martinez DO 14[address] [facility] 180 [place] [address] Medical Oncologist/Floor Tiling Professional Hematology and Oncology 02/22/19 Guru Winters DO 14[address] [facility] [address] [place] [address] Consulting Physician Gastroenterology 02/22/19 Gato Abrams MD [address] [place] [address] Surgeon Surgical Oncology 09/07/19 documented as of this encounter
--- OUTSIDE RECORDS SUMMARY | 2024-10-04 03:02 | XMS_ITS | Encounter Summary ---
Author Organization [facility] Address [address] [place] [address] Phone Care Team Providers Care Extension Service Supervisor Name Role Phone MelindaLuann oh ANUP Unavailable [phone] Adarsh Tuttle MD Unavailable [phone] Sebastien Martinez DO Unavailable [phone] Guru Winters DO Unavailable [phone] Gato Abrams MD Unavailable [phone] Elizabeth Borrego Primary Care Provider [phone] Marina Rosales MD Unavailable [phone] Reason for Referral * Diagnostic Imaging (Routine) - Closed Specialty Diagnoses / Procedures Referred By Contac t Referred To Contact Radiology Diagnoses Malignant carcinoid tumor of stomach (HCC) Procedures CT Abdomen Pelvis W Contrast CT Abdomen Pelvis W WO Contrast Gato Abrams MD Phone: tel: fax: [address] [address] Referral ID Status Reason Start Date Expiration Date Visits Re quested Visits Authorized [id number] Closed 04/04/2021 05/04/2022 1 1 Encounter Details Date Type Department Care Team (Late st Contact Info) Description 04/04/2021 Orders Only [facility] Surgery [address] [facility] Advanced 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 Stable 6 mm enhancing lesion within the uncinate process which may represent a neuroendocrine tumor. 2. Stable pulmonary nodules within the lung bases. 3. No evidence of progression of disease within abdomen or pelvis. Electronically signed by: Darrell Polk M.D. Narrative 10/06/2021 12:55 PM AIR TOOL OPERATOR EXAMINATION: ??Computed tomography of the abdomen/pelvis with [...] stomach documented in this encounter Care Teams Extension Service Supervisor Relationship Specialty Start Date End Date Elizabeth Borrego PA [address] [facility] [address] [place], [place] [id number] PCP - General Internal Medicine 03/25/20 09/27/23 Luann Lawrence NP Nurse Practitioner Nurse Practitioner 01/06/19 Adarsh Tuttle MD [address] [facility] [address] [place] [address] Consulting Physician Gastroenterology 02/22/19 Sebastien Martinez DO [address] [place] [address] Medical Oncologist/Telecommunication Systems Designer Hematology and Oncology 02/22/19 Guru Winters DO [address] [place] [address] Consulting Physician Gastroenterology 02/22/19 Gato Abrams MD [address] [place] [address] [place] [address] Surgeon Surgical Oncology 09/07/19 Marina Rosales MD 1095 [facility] 500 [place] [address] Consulting Physician General Surgery 03/24/21 documented as of this encounter
--- OUTSIDE RECORDS SUMMARY | 2024-10-04 03:02 | XMS_ITS | Encounter Summary ---
Author Organization [facility] Address [address] [place] [address] Care Team Providers Care Swaging Machine Adjuster Name Role Phone Luann Lawrence NP Unavailable [phone] Adarsh Tuttle MD Unavailable Sebastien Martinez DO Unavailable [phone] Guru Winters DO Unavailable [phone] Gato Abrams MD Unavailable [phone] Elizabeth Borrego Primary Care Provider [phone] Marina Rosales MD Unavailable [phone] Reason for Visit * Auth/Cert Specialty Diagnoses / Procedures Referred By Contac t Referred To Contact Diagnoses Malignant carcinoid tumor of the stomach (HCC) Malignant carcinoid tumor of the stomach (CMS/HCC) [C7A.092] Procedures EUS Referral ID Status Reason Start Date Expiration Date Visits Re quested Visits Authorized [id number] 1 1 Encounter Details Date Type Department Care Team (Late st Contact Info) Description 04/07/2021 11:45 AM CDT Anesthesia Event [facility] [address] [place] [id number] Ayan Villanueva MD [facility]5 [place] [address] Anesthesia Record Procedure Summary Procedure Name Responsible Anesthesiologist Anesthesia Start Time Anesthesia Stop Time ESOPHAGOGASTRODUODENOSCOPY ULTRASOUND EXAM LIMITED Ayan Villanueva MD 04/07/21 1145 04/07/21 1209 Events Date Time Event Comment 04/07/2021 1102 1145 An Start 1145 In Room 1145 An Start Data 1148 Patient Positioned Laterally 1148 Bite Block Placed 1149 An Induction The patient was reevaluated immediately before moderate or deep sedation use and before anesthesia induction. 1150 Anesthesia Ready 1151 Proc Start 1202 Proc Fin 1204 Out of Room 1206 an stop data 1208 Handoff to RN I completed my handoff [...] disposition at the time of handoff: PACU 1209 An Stop 1243 Release from care Meds Name Total lidocaine (cardiac) syringe 2 % 5 mL propofol 440 mg Lactated Ringer's (LR) infusion 0 mL * Agents Name O2 * Blood No blood administrations on file. Lines, Drains, and Airways Type Details Placement Removal RETIRED Surgical Site Abdomen; 09/19/24 (Retired LDA, Removed/Completed by [employer] with LDA Utility); 1213 (Retired LDA, Removed/Completed by [employer] with LDA Utility) 05/13/20 1018 by 09/19/24 1213 by Discharge Provider, Automatic RETIRED Surgical Site 08/23/19; 1434; Abdomen; SURGICAL TROCAR ACCESS SITES X5; 09/19/24 (Retired LDA, Removed/Completed by [employer] with LDA Utility); 1213 (Retired LDA, Removed/Completed by [employer] with LDA Utility) 08/23/19 1434 by Christoph Parker RN 09/19/24 1213 by Discharge Provider, Automatic Peripheral IV Placement Date: 04/07/21; Placement Time: 1110; Catheter Size: 20 G; Orientation: Distal, Posterior, Right; Location: Forearm; Site Prep: Chlorhexidine; Technique: Anatomical landmarks; Inserted by: RN; Insertion Attempts: 1; Patient Tolerance: Tolerated well; Removal Date: 04/07/21; Removal Time: 1314 04/07/21 1110 by Luz Ribeiro RN 04/07/21 1314 by Peggy Marte RN documented in this encounter Social History [...] on file 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 SAND 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 Gender Identity Female 06/07/2020 8:39 AM CDT Sexual Orientation Not on file 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 Not on file Not on mikie e documented as of this encounter OR Notes * Anesthesia Postprocedure Evaluation - Vivian Eisenberg CRNA - 04/07/2021 12:43 PM CDT Patient: Fabiola Gibson Procedure Summary Date: 04/07/21 [facility] / [facility] [facility] Anesthesia Start: 1145 Anesthesia Stop: 1209 Procedure: ESOPHAGOGASTRODUODENOSCOPY ULTRASOUND EXAM LIMITED (N/A ) Diagnosis: Malignant carcinoid tumor of the stomach (CMS/HCC) (Malignant carcinoid tumor of the stomach (CMS/HCC) [C7A.092]) Providers: Adarsh Tuttle MD Responsible Provider: Ayan Villanueva MD Anesthesia Type: general/TIVA ASA Status: 3 Anesthesia Type: general/TIVA Last vitals BP 113/69 Pulse 52 Temp 36.6 ??C (97.9 ??F) (Tympanic) Resp 13 SpO2 99% Anesthesia Post Evaluation Patient location: GI. Patient participation: complete - patient participated Level of consciousness: fully awake Pain management: adequate Airway patency: adequate Cardiovascular status: acceptable, hemodynamically stable and blood pressure returned to baseline Respiratory status: acceptable and room air Hydration status: acceptable Pt is: normothermic Nausea/Vomiting status: none No complications documented. * Anesthesia Preprocedure Evaluation - Ayan Villanueva MD - 04/07/2021 10:55 AM CDT Anesthesia Evaluation Fabiola Gibson is a 55 y.o. female Procedure(s): EUS * No Diagnosis [...] ??? Fever ??? COVID-19 ??? BMI 25.0-25.9,adult Past Medical History: Diagnosis Date ??? Anemia ??? Cancer (CMS/HCC) carcinode tumors ??? Carcinoid tumor of stomach ??? Chronic diarrhea ??? Colon polyp ??? Depression ??? Heart murmur ??? Hyperlipidemia ??? Hypertension ??? Left bundle branch block ??? Rheumatoid arthritis (CMS/HCC) ??? Urinary tract infection years ago Past Surgical History: Procedure Laterality Date ??? SECTION 1989,1991 twice ??? COLONOSCOPY 11/2018 ??? ENDOMETRIAL ABLATION 09/2005 ??? ESOPHAGOGASTRODUODENOSCOPY 2018 x4 ??? GASTRECTOMY 08/23/2019 partial ??? HERNIA REPAIR ??? STOMACH SURGERY ??? TUBAL LIGATION 02/2005 ??? UPPER GASTROINTESTINAL ENDOSCOPY OB History No obstetric history on file. No Known Allergies HOME MEDICATIONS : ALPRAZolam (XANAX) 0.25 mg tablet buPROPion XL (WELLBUTRIN XL) 150 mg 24 hr tablet cholecalciferol (VITAMIN D3) 1,000 unit capsule cyanocobalamin (Vitamin B-12) 1,000 mcg/mL injection escitalopram (LEXAPRO) 10 mg tablet hydroxychloroquine (PLAQUENIL) 200 mg tablet Insulin Syringe MicroFine 1/2 mL 28 gauge x 1/2 syringe insulin syringe-needle U-100 1 mL 29 gauge x 1/2 syringe multivitamin capsule octreotide (SandoSTATIN) 100 mcg/mL injection octreotide LAR (SandoSTATIN LAR) 20 mg suspension,extended rel recon pravastatin (PRAVACHOL) 40 mg tablet valsartan-hydroCHLOROthiazide (DIOVAN-HCT) 80-12.5 mg per tablet No current outpatient medications on file. Social History Tobacco Use Smoking Status Former Smoker ??? Packs/day: 1.00 ??? Years: 2.00 ??? Pack years: 2.00 ??? Types: Cigarettes ??? Start date: 1996 ??? Quit date: 1998 ??? Years since quittin.4 Smokeless Tobacco Never Used Substance and Sexual Activity Alcohol Use Yes ??? Alcohol/week: 2.0 - 3.0 standard drinks ??? Types: 2 - 3 Cans of beer per week Substance and Sexual Activity Drug Use Never Family History Problem Relation Age of Onset [...] labs within last 720 hours. CBC RBC: 04/04/2021: 4.17 M/cumm RDW: No results found for requested labs within last 720 hours. MCHC: 04/04/2021: 34.4 g/dL MCH: 04/04/2021: 30.0 pg MCV: 04/04/2021: 87.1 fL Hct: 04/04/2021: 36.3 % Hgb: 04/04/2021: 12.5 g/dL WBC: 04/04/2021: 3.4 K/cumm* MPV: 04/04/2021: 9.5 fL Platelets: 04/04/2021: 239 K/cumm RDW CV: 04/04/2021: 11.6 % RDW Sd: 04/04/2021: 36.7 fL BMP Glucose: 04/04/2021: 118 mg/dL Calcium: 04/04/2021: 9.5 mg/dL Sodium: 04/04/2021: 140 mmol/L Potassium: 04/04/2021: 4.5 mmol/L CO2: 04/04/2021: 29 mmol/L Chloride: 04/04/2021: 104 mmol/L BUN: 04/04/2021: 16 mg/dL Creatinine: 04/04/2021: 0.60 mg/dL DOS Physical Exam Medical history, medications, and allergies reviewed. Attestation: This PAT evaluation 04/07/2021. Airway Exam: Mallampati: II Cervical ROM: FROM TM distance: >4 Jaw ROM: full Cardiovascular Exam: Rate: bradycardia Rhythm: regular (Wide complex bradycardia) Pulmonary Exam: LCTA, bilat EENT Exam: trachea midline Dental Exam: Otherwise appears intact Anesthesia Plan ASA 3 My patient is approved for the Anesthesia Controlled Medication protocol when under care of a PAYROLL COORDINATOR Planned anesthesia: General/TIVA Team communication plan: mask Induction: Induction: intravenous. Postoperative Plan: No plan for postoperative opioid use. No postoperative mechanical ventilation intended. Patient's planned disposition post procedure is Outpatient. Informed Consent: Discussed plan with PAYROLL COORDINATOR. Anesthesia plan and risks discussed with patient. [...] 11:11 AM CDT 30 mL/hr 30 mL/hr lidocaine (cardiac) (XYLOCAINE) preservative free injection intravenous, As needed, Starting on Wed04/07/21 at 1149, Anesthesia Intra-op, Indications: Ventricular ArrhythmiasIndications:Ventricular Arrhythmias Given 04/07/2021 11:49 AM CDT 5 mL propofoL (DIPRIVAN) 10 mg/mL IV intravenous, As needed, Starting on Wed04/07/21 at 1149, Anesthesia Intra-op Given 04/07/2021 11:50 AM CDT 340 mg Given 04/07/2021 11:49 AM CDT 100 mg documented in this encounter Care Teams Swaging Machine Adjuster Relationship Specialty Start Date End Date Elizabeth Borrego PA 10[address] [facility] 500 [place] [address] PCP - General Internal Medicine 03/25/20 09/27/23 Luann Lawrence, ANUP Nurse Practitioner Nurse Practitioner 01/06/19 Adarsh Tuttle MD [address] [facility] [address] [place] [address] Consulting Physician Gastroenterology 02/22/19 Sebastien Martinez DO [address] [place] [id number] Medical Oncologist/Line Tester Hematology and Oncology 02/22/19 Guru Winters DO [address] [place] [address] Consulting Physician Gastroenterology 02/22/19 Gato Abrams MD [address] [place] [address] Surgeon Surgical Oncology 09/07/19 Marina Rosales MD [address] [facility] [address] [place], [place] [address] Consulting Physician General Surgery 03/24/21 documented as of this encounter
--- OUTSIDE RECORDS SUMMARY | 2024-10-04 03:02 | XMS_ITS | Encounter Summary ---
Author Organization [facility] Address [address] [place] [address] Phone Care Team Providers Care Boat Joiner Helper Name Role Phone Luann Lawrence ANUP Unavailable [phone] Adarsh Tuttle MD Unavailable [phone] Sebastien Martinez DO Unavailable [phone] Guru Winters DO Unavailable [phone] Gato Abrams MD Unavailable [phone] Elizabeth Borrego Primary Care Provider [phone] Marina Rosales MD Unavailable [phone] Encounter Details Date Type Department Care Team (Late st Contact Info) Description 03/28/2021 Telephone [facility] Oncology [address] [facility] [address] [place] [address] Anna Kelly, A Social History Tobacco Use [...] on file 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:22 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 Tuttle's office she asked that I fax records and they will review them and contact the patient with an apt. I will fax records once Dr. Martinez's note is complete Anna BISHOP documented in this encounter Plan of Treatment Not on file documented as of this encounter Visit Diagnoses Not on filedocumented in this encounter Care Teams Boat Joiner Helper Relationship Specialty Start Date End Date Elizabeth Borrego PA 10[address] [facility] [address] [place], [place] [phone] PCP - General Internal Medicine 03/25/20 09/27/23 Luann Lawrence NP Nurse Practitioner Nurse Practitioner 01/06/19 Adarsh Tuttle MD [address] [facility] 210 [place] [address] Consulting Physician Gastroenterology 02/22/19 Sebastien Martinez DO [address] [address] Medical Oncologist/Real Estate Office Manager Hematology and Oncology 02/22/19 Guru Winters DO [address] [address] Consulting Physician Gastroenterology 02/22/19 Gato Abrams MD 14[address] [facility] [address] [place] [address] Surgeon Surgical Oncology 09/07/19 Marina Rosales MD 1095 [facility] 500 [place] [address] Consulting Physician General Surgery 03/24/21 documented as of this encounter
--- OUTSIDE RECORDS SUMMARY | 2024-10-04 03:02 | XMS_ITS | Encounter Summary ---
Author Organization [facility] Address [address] [place] [address] Phone Care Team Providers Care High Lead Yarder Name Role Phone Luann Lawrence ANUP Unavailable [phone] Adarsh Tuttle MD Unavailable [phone] Sebastien Martinez DO Unavailable [phone] Guru Winters DO Unavailable [phone] Gato Abrams MD Unavailable [phone] Elizabeth Borrego Primary Care Provider [phone] Encounter Details Date Type Department Care Team (Late st Contact Info) Description 02/26/2021 9:15 AM CDT Lab [facility] Oncology [address] [place] [address] [address] [place] [id number] Malignant carcinoid tumor of stomach (CMS/HCC); Anemia, unspecified type Social History Tobacco Use Types Packs/Day Years [...] file 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:22 AM SOFTWARE PROGRAM MANAGER Gender Identity Female 06/07/2020 8:39 AM CDT Sexual Orientation Not on file 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 Not on file Not on mikie e documented as of this encounter Plan of Treatment Not on file documented as of this encounter Visit Diagnoses Diagnosis Malignant carcinoid tumor of stomach (HCC) Malignant carcinoid tumor of the stomach Anemia, unspecified type documented in this encounter Orders Appointment Requests Count Last Ordered Date Fi rst Ordered Date ONCBCN LAB APPOINTMENT 1 02/26/2021 documented in this encounter Care Teams High Lead Yarder Relationship Specialty Start Date End Date Elizabeth Borrego PA [address] [place] [address] PCP - General Internal Medicine 03/25/20 09/27/23 Luann Lawrence, ANUP Nurse Practitioner Nurse Practitioner 01/06/19 Adrash Tuttle MD [address] [facility] [address] [place] [address] Consulting Physician Gastroenterology 02/22/19 Sebastien Martinez DO [address] [place] [address] Medical Oncologist/Securities Dealer Hematology and Oncology 02/22/19 Guru Winters DO [address] [place] [address] Consulting Physician Gastroenterology 02/22/19 Gato Abrams MD [address] [place] [address] Surgeon Surgical Oncology 09/07/19 documented as of this encounter
--- OUTSIDE RECORDS SUMMARY | 2024-10-04 03:02 | XMS_ITS | Encounter Summary ---
Author Organization [facility] Address [address] [place] [address] Phone Care Team Providers Care Track Repairer Name Role Phone Melinda Luann Burgess NP Unavailable [phone] Adarsh Tuttle MD Unavailable [phone] Sebastien Martinez DO Unavailable [phone] Guru Winters DO Unavailable [phone] Gato Abrams MD Unavailable [phone] Elizabeth Borrego Primary Care Provider [phone] Reason for Visit * Episode Based Medications (Routine) - Closed Specialty Diagnoses / Procedures Referred By Clemencia mendez Referred To Contact Oncology Diagnoses Malignant carcinoid tumor of stomach (HCC) Procedures GA OCTREOTIDE INJECTION, DEPOT Sebastien Martinez, DO [facility] [address] Phone: tel: fax: [facility] Physicians [facility] Oncology [address] [address] Phone: tel: fax: Referral ID Status Reason Start Date Expiration Date Visits Re quested Visits Authorized [id number] Closed 2022 02/19/2023 1 50 Encounter Details Date Type Department Care Team (Late st Contact Info) Description 11/18/2020 7:45 AM SPEEDER WORKER Lab [facility] Physicians [facility] Oncology [address] 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 08/21/2020 08/23/2020 12/19/2020 3:[address] documented as of this encounter Care Teams Track Repairer Relationship Specialty Start Date End Date Elizabeth Borrego PA [address] [place] [address] PCP - General Internal Medicine 03/25/20 09/27/23 Luann Lawrence NP Nurse Practitioner Nurse Practitioner 01/06/19 Adarsh Tuttle MD [address] [place] [address] Consulting Physician Gastroenterology 02/22/19 Sebastien Martinez DO [address] [place] [address] Medical Oncologist/Solutions Sales Executive Hematology and Oncology 02/22/19 Guru Winters DO [address] [place] [address] Consulting Physician Gastroenterology 02/22/19 Gato Abrams MD [address] [place] [address] Surgeon Surgical Oncology 09/07/19 documented as of this encounter
--- OUTSIDE RECORDS SUMMARY | 2024-10-04 03:02 | XMS_ITS | Encounter Summary ---
Author Organization [facility] Address [address] [facility] [address] [place] [address] Care Team Providers Care Spanish Language Lecturer Name Role Phone Luann Lawrence NP Unavailable Adarsh Tuttle MD Unavailable Sebastien Martinez DO Unavailable Guru Winters DO Unavailable [phone] Gato Abrams MD Unavailable Elizabeth Borrego Primary Care Provider [phone] Encounter Details Date Type Department Care Team (Late st Contact Info) Description 12/13/[address] 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 08/21/2020 08/23/2020 12/19/2020 3:[address] documented as of this encounter Care Teams Spanish Language Lecturer Relationship Specialty Start Date End Date Elizabeth Borrego PA [address] [place] [address] PCP - General Internal Medicine 03/25/20 09/27/23 Luann Lawrence, ANUP Nurse Practitioner Nurse Practitioner 01/06/19 Adarsh Tuttle MD [address] [address] [place] [address] Consulting Physician Gastroenterology 02/22/19 Sebastien Martinez DO [address] [place] [address] Medical Oncologist/Senior Sharepoint Developer Hematology and Oncology 02/22/19 Guru Winters DO [address] [facility] [address] [place] [address] Consulting Physician Gastroenterology 02/22/19 Gato Abrams MD [address] [place] [address] Surgeon Surgical Oncology 09/07/19 documented as of this encounter
--- OUTSIDE RECORDS SUMMARY | 2024-10-04 03:02 | XMS_ITS | Encounter Summary ---
Author Organization [facility] Address [address] [facility] [address] [place] [address] Care Team Providers Care Buying Intern Name Role Phone Melinda Luann Burgess NP Unavailable [phone] Adarsh Tuttle MD Unavailable [phone] Sebastien Martinez DO Unavailable [phone] Guru Winters DO Unavailable [phone] Gato Abrams MD Unavailable [phone] Elizabeth Borrego Primary Care Provider [phone] Marina Rosales MD Unavailable [phone] Encounter Details Date Type Department Care Team (Late st Contact Info) Description 02/19/2021 Orders Only [facility] Health Information Management [address] [place] [address] Scanning, Provider Social History Tobacco Use Types Packs/Day Years Used Date Smoking Tobacco: Former Cigarettes 1 1998 Smokeless Tobacco: Never Alcohol Use Standard [...] on file 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:22 AM RESIDENCE LIFE COORDINATOR Gender Identity Female 06/07/2020 8:39 AM CDT Sexual Orientation Not on file 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 Not on mikie e documented as of this encounter Plan of Treatment Not on file documented as of this encounter Procedures Procedure Name Priority Date/Time Associated Diagnosis Comments SCAN - RADIOLOGY/IMAGING 02/19/2021 documented in this encounter Results * SCAN - RADIOLOGY/IMAGING (02/19/2021) Anatomical Region Laterality Modality Other us Provider Scanning Final Result documented in this encounter Visit Diagnoses Not on filedocumented in this encounter Care Teams Buying Intern Relationship Specialty Start Date End Date Elizabeth Borrego PA [address] [place], [place] [id number] PCP - General Internal Medicine 03/25/20 09/27/23 Luann Lawrence, ANUP Nurse Practitioner Nurse Practitioner 01/06/19 Adarsh Tuttle MD [address] [facility] [address] [place] [address] Consulting Physician Gastroenterology 02/22/19 Sebastien Martinez DO [address] [address] Medical Oncologist/Beader Hematology and Oncology 02/22/19 Guru Winters DO [address] [address] Consulting Physician Gastroenterology 02/22/19 Gato Abrams MD [address] [facility] [address] [place] [address] Surgeon Surgical Oncology 09/07/19 Marina Rosales MD [address] [facility] 500 [place] [address] Consulting Physician General Surgery 03/24/21 documented as of this encounter
--- OUTSIDE RECORDS SUMMARY | 2024-10-04 03:02 | XMS_ITS | Encounter Summary ---
Author Organization [facility] Address [address] [place] [address] Care Team Providers Care Marketing Clerk Name Role Phone Luann Lawrence NP Unavailable [phone] Adarsh Tuttle MD Unavailable [phone] Sebastien Martinez DO Unavailable [phone] Guru Winters DO Unavailable [phone] Gato Abrams MD Unavailable Elizabeth Borrego Primary Care Provider [phone] Encounter Details Date Type Department Care Team (Late st Contact Info) Description 02/26/2021 9:09 AM CDT - 03/17/2021 11:59 PM CDT Hospital Encounter [facility] Sebastien Martinez, DO [address] [address] Social History Tobacco Use Types Packs/Day Years [...] on file 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:22 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 Gender Identity Female 06/07/2020 8:39 AM CDT Sexual Orientation Not on file 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 Not on mikie e documented as of this encounter Medications at Time of Discharge cholecalciferol (VITAMIN D-3) 1,000 unit capsuleIndicatio ns:Vitamin D Deficiency Take 2 capsules (2,000 Units total) by mouth cylinder tester before breakfast ALPRAZolam (XANAX) 0.25 mg tablet [...] 1 tablet (200 mg total) by mouth cylinder tester before breakfast 01/30/2019 3 Insulin Syringe MicroFine 1/2 mL 28 gauge x 1/2 syringe 08/26/2020 1 insulin syringe-needle U-100 1 mL 29 gauge x 1/2 syringe 1 Syringe every 30 (thirty) days 100 each 01/09/2021 1 multivitamin capsuleIndicatio ns:Vitamin Deficiency Prevention Take 1 capsule by mouth cylinder tester before breakfast 4 octreotide (SandoSTATIN) 100 [...] 01/14/2021 2 documented as of this encounter Plan of Treatment Not on file documented as of this encounter Visit Diagnoses Not on filedocumented in this encounter Care Teams Marketing Clerk Relationship Specialty Start Date End Date Elizabeth Borrego PA [address] [place], [place] [id number] PCP - General Internal Medicine 03/25/20 09/27/23 Luann Lawrence, ANUP Nurse Practitioner Nurse Practitioner 01/06/19 Adarsh Tuttle MD [address] [facility] [address] [place] [address] Consulting Physician Gastroenterology 02/22/19 Sebastien Martinez DO [address] [id number] Medical Oncologist/Woods Rider Hematology and Oncology 02/22/19 Guru Winters DO [address] [address] Consulting Physician Gastroenterology 02/22/19 Gato Abrams MD [address] [address] Surgeon Surgical Oncology 09/07/19 documented as of this encounter
--- OUTSIDE RECORDS SUMMARY | 2024-10-04 03:02 | XMS_ITS | Encounter Summary ---
Author Organization [facility] Address [address] [place] [address] Phone Care Team Providers Care Phys Therapist Name Role Phone Luann Lawrence ANUP Unavailable [phone] Adarsh Tuttle MD Unavailable [phone] Sebastien Martinez DO Unavailable [phone] Guru Winters DO Unavailable [phone] Gato Abrams MD Unavailable [phone] Elizabeth Borrego Primary Care Provider [phone] Marina Rosales MD Unavailable [phone] Encounter Details Date Type Department Care Team (Late st Contact Info) Description 05/30/2021 Orders Only [facility] Physicians [facility] Oncology [address] [facility] [address] [place] [address] Sebastien Martinez DO [address] [facility] [address] [place] [address] Malignant carcinoid tumor of stomach (CMS/HCC) [...] on file 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:22 AM 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 GANG WEIGHER Gender Identity Female 06/07/2020 8:39 AM CDT Sexual Orientation Not on file 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 Not on mikie e documented as of this encounter Plan of Treatment Not on file documented as of this encounter Visit Diagnoses Diagnosis Malignant carcinoid tumor of stomach (HCC)- Primary Malignant carcinoid tumor of the stomach documented in this encounter Care Teams Phys Therapist Relationship Specialty Start Date End Date Elizabeth Borrego PA [address] [facility] 500 [place] [address] PCP - General Internal Medicine 03/25/20 09/27/23 Luann Lawrence NP Nurse Practitioner Nurse Practitioner 01/06/19 Adarsh Tuttle MD [address] [facility] [address] [place] [address] Consulting Physician Gastroenterology 02/22/19 Sebastien Martinez DO [address] [place] [address] Medical Oncologist/Finished Goods Planner Hematology and Oncology 02/22/19 Guru Winters DO [address] [place] [address] Consulting Physician Gastroenterology 02/22/19 Gato Abrams MD [address] [place] [address] 180 [place] [address] Surgeon Surgical Oncology 09/07/19 Marina Rosales MD [address] [facility] 500 [place], [place] [address] Consulting Physician General Surgery 03/24/21 documented as of this encounter
--- OUTSIDE RECORDS SUMMARY | 2024-10-04 03:02 | XMS_ITS | Encounter Summary ---
Author Organization [facility] Address [address] [place] [address] Phone Care Team Providers Care Scrubber Operator Name Role Phone MelindaLuann oh Aditya HEBERT Unavailable [phone] Adarsh Tuttle MD Unavailable [phone] Sebastien Martinez DO Unavailable [phone] Guru Winters DO Unavailable [phone] Gato Abrams MD Unavailable [phone] Elizabeth Borrego Primary Care Provider [phone] Marina Rosales MD Unavailable [phone] Reason for Visit * Episode Based Medications (Routine) - Closed Specialty Diagnoses / Procedures Referred By Contjimmy t Referred To Contact Oncology Diagnoses Malignant carcinoid tumor of stomach (HCC) Procedures RI OCTREOTIDE INJECTION, DEPOT Sebastien Martinez, [facility] [address] Phone: tel: fax: [facility] Physicians [facility] Oncology [address] [address] Phone: tel: fax: Referral ID Status Reason Start Date Expiration Date Visits Re quested Visits Authorized [id number] Closed 2022 02/19/2023 1 50 Encounter Details Date Type Department Care Team (Late st Contact Info) Description 05/02/2021 10:00 AM CDT Infusion [facility] Physicians [facility] Oncology [address] [facility] [address] [place] [address] Malignant carcinoid tumor of stomach [...] on file Legal Sex Female 2:22 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 FENCE 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 Gender Identity Female 06/07/2020 8:39 AM CDT Sexual Orientation Not on file 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 For IM intragluteal administration only- alternate gluteal sites. Shamir.Indications:Malignant carcinoid tumor of stomach (HCC) Given 05/02/2021 9:55 AM CDT 10 mg Left Dorsogluteal/Butt ock documented in this encounter Orders Appointment Requests Count Last Ordered Date Fi rst Ordered Date ONCBCN INJECTION APPOINTMENT REQUEST 1 04/17 documented in this encounter Care Teams Scrubber Operator Relationship Specialty Start Date End Date Elizabeth Borrego PA [address] [facility] 500 [place] [address] PCP - General Internal Medicine 03/25/20 09/27/23 Luann Lawrence, ANUP Nurse Practitioner Nurse Practitioner 01/06/19 Adarsh Tuttle MD [address] [facility] [address] [place] [address] Consulting Physician Gastroenterology 02/22/19 Sebastien Martinez DO [address] [place] [id number] Medical Oncologist/Planer Mill Grader Hematology and Oncology 02/22/19 Guru Winters DO [address] [place] [address] Consulting Physician Gastroenterology 02/22/19 Gato Abrams MD [address] [place] [address] Surgeon Surgical Oncology 09/07/19 Marina Rosales MD [address] [place] [address] Consulting Physician General Surgery 03/24/21 documented as of this encounter
--- OUTSIDE RECORDS SUMMARY | 2024-10-04 03:02 | XMS_ITS | Encounter Summary ---
Author Organization [facility] Address [address] [place] [address] Phone Care Team Providers Care Kitchen Helper Name Role Phone Luann Lawrence ANUP Unavailable [phone] Adarsh Tuttle MD Unavailable [phone] Sebastien Martinez DO Unavailable [phone] Guru Winters DO Unavailable [phone] Gato Abrams MD Unavailable [phone] Elizabeth Borrego Primary Care Provider [phone] Encounter Details Date Type Department Care Team (Late st Contact Info) Description 02/20/[address] 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 Advised of orders for labs next week and that Octreotide is on hold for now until she sees Dr. Martinez in the office. Patient v/u and would like labs done at our office. Appointment given. documented in this encounter Plan of Treatment Not on file documented as of this encounter Procedures Procedure Name Priority Date/Time Associated Diagnosis Comments CBC WITH AUTO DIFFERENTIAL Routine 02/26/2021 9:15 AM CDT Malignant carcinoid tumor of stomach (CMS/HCC) Anemia, unspecified type TSH Routine 02/26/2021 9:15 AM CDT Anemia, unspecified type COMPREHENSIVE METABOLIC PANEL Routine 02/26/2021 9:15 AM CDT Malignant carcinoid tumor of stomach (CMS/HCC) Anemia, unspecified type documented in this encounter Results * TSH (02/26/2021 9:15 AM CDT) TSH 1.19 0.27 - 4.20 uIU/mL [facility] Blood specimen (specimen) 02/26/2021 9:15 AM CDT 02/26/2021 9:30 AM CDT Narrative Resulting Agency Comment RCR us Sebastien Martinez DO LAB BLOOD ORDERABLES [place] [address], [facility] [phone] * (ABNORMAL) Comprehensive metabolic panel (02/26/2021 9:15 AM CDT) Sodium 143 135 - 145 mmol/L [facility] Potassium 4.6 3.3 - 5.1 mmol/L [facility] Chloride 104 96 - 108 mmol/L [facility] Carbon Dioxide 33(H) 22 - 32 mmol/L [facility] Anion Gap 6(L) 7 - 16 [facility] Glucose 114(H) 70 - 100 mg/dL [facility] BUN 15 8 - 25 mg/dL [facility] Creatinine 0.7 0.5 - 1.1 mg/dL [facility] Comment: NOTE: Estimated GFR (Cockroft-Gault) will NOT be calculated unless patient Height and Weight were entered. Also, Kidney Disease Stage (GFR) and Estimated GFR (Cockroft-Gault) will NOT be calculated if Creatinine result is <0.2. Kidney Disease Stage >90 mL/MIN [facility] Comment: NOTE; ??The GFR is an estimated value using the creatinine, sex, age, and race of the patient. THE Estimated Kidney Disease GFR is validated for AGES 18-70 YEARS STAGE ?mL/Min ?DESCRIPTION ??1 ?90 mL/min or more ?Normal or elevated GFR ??2 ? 60-89 mL/min ?Mildly decreased GFR ??3 ? 30-59 mL/min ?Moderately decreased GFR ??4 ? 15-29 mL/min ?Severely decreased GFR ??5 ? <15 mL/min ? Kidney failure or on dialysis Calcium 9.5 8.6 - 10.3 mg/dL [facility] Total Protein 7.5 6.4 - 8.3 g/dL [facility] Albumin 4.4 3.5 - 5.0 g/dL [facility] Globulin 3.1 2.3 - 3.5 gm/dL [facility] Albumin/Globulin Ratio 1.4 1.1 - 1.8 [facility] Total Bilirubin 0.5 0.0 - 1.2 mg/dL [facility] AST 30 0 - 32 U/L [facility] ALT 30 0 - 33 U/L [facility] Alkaline Phosphatase 65 35 - 104 U/L [facility] Blood specimen (specimen) 02/26/2021 9:15 AM CDT 02/26/2021 9:30 AM CDT Narrative Resulting Agency Comment RCR Sebastien Martinez DO LAB BLOOD ORDERABLES Final R esult [address] [address] * (ABNORMAL) CBC with auto differential (02/26/2021 9:15 AM CDT) WBC 3.5(L) 3.8 - 9.9 X10 3/ul [facility] RBC 4.37 3.90 - 5.20 x10 6/ul [facility] Hemoglobin 13.0 11.9 - 15.5 g/dL [facility] Hct 38.8 35.6 - 45.5 % [facility] MCV 88.8 81.3 - 96.4 [facility] MCH 29.7 27.1 - 33.3 pg [facility] MCHC 33.5 32.3 - 35.7 g/dl [facility] RDW 12.1 11.1 - 14.9 % [facility] Plt Count 267 150 - 400 x10 3/ul [facility] MPV 9.9 9.1 - 12.3 [facility] Neut % 58.0 % [facility] Immature Gran % 0.3 % [facility] Lymph % 28.1 % [facility] [place] % 7.7 % [facility] Eos % 4.5 % [facility] AUTO BASO % 1.4 % [facility] NEUTROPHIL ABS # 2.0 1.7 - 6.5 x10 3/ul [facility] Immature Gran # 0.0 0.0 - 0.1 x10 3/ul [facility] Absolute Lymphs (auto) 1.0 0.8 - 3.3 x10 3/ul [facility] Absolute Monos (auto) 0.3 0.2 - 0.8 x10 3/ul [facility] Absolute Eos (auto) 0.2 0.0 - 0.5 x10 3/ul [facility] BASOPHIL ABS # 0.1 0.0 - 0.1 x10 3/ul [facility] Nucleat RBC Rel Count 0.0 #/100WBC [facility] NRBC abs 0.00 0.00 - 0.01 x10 3/ul [facility] Absolute Neutrophils 2,000 200 - 8,000 /ul [facility] Blood specimen (specimen) 02/26/2021 9:15 AM CDT 02/26/2021 9:30 AM CDT Narrative Resulting Agency Comment RCR us Sebastien Martinez DO LAB BLOOD ORDERABLES Final R esult [address] [address] documented in this encounter Visit Diagnoses Diagnosis Malignant carcinoid tumor of stomach (HCC)- Primary Malignant carcinoid tumor of the stomach Anemia, unspecified type documented in this encounter Orders Appointment Requests Count Last Ordered Date Fi rst Ordered Date ONCBCN LAB APPOINTMENT 1 02/26/2021 documented in this encounter Care Teams Kitchen Helper Relationship Specialty Start Date End Date Elizabeth Borrego PA [address] [facility] [address] [place] [address] PCP - General Internal Medicine 03/25/20 09/27/23 Luann Lawrence NP Nurse Practitioner Nurse Practitioner 01/06/19 Adarsh Tuttle MD [address] [facility] [address] [place] [address] Consulting Physician Gastroenterology 02/22/19 Sebastien Martinez DO [address] [place] [id number] Medical Oncologist/Immunology Specialist Hematology and Oncology 02/22/19 Guru Winters DO [address] [place] [address] [id number] Consulting Physician Gastroenterology 02/22/19 Gato Abrams MD [address] [place] [id number] Surgeon Surgical Oncology 09/07/19 documented as of this encounter
--- OUTSIDE RECORDS SUMMARY | 2024-10-04 03:02 | XMS_ITS | Encounter Summary ---
Author Organization [facility] Address [address] [place] [address] Phone Care Team Providers Care Dredge Lever Operator Name Role Phone Luann Lawrence [address] SQL DEVELOPER Unavailable [phone] Adarsh Tuttle MD Unavailable [phone] Sebastien Martinez DO Unavailable [phone] Guru Winters DO Unavailable [phone] Gato Abrams MD Unavailable [phone] Elizabeth Borrego Primary Care Provider [phone] Encounter Details Date Type Department Care Team (Late st Contact Info) Description 01/12/2021 Orders Only [facility] Oncology 14[address] [facility] [address] [place] [address] Sebastien Martinez, DO [address] [facility] [address] [place] [address] Malignant carcinoid tumor of stomach [...] on file Legal Sex Female 2:22 AM GUARD SERGEANT Gender Identity Female 06/07/2020 8:39 AM CDT Sexual Orientation Not on file 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 Not on mikie e documented as of this encounter Plan of Treatment Not on file documented as of this encounter Visit Diagnoses Diagnosis Malignant carcinoid tumor of stomach (HCC)- Primary Malignant carcinoid tumor of the stomach documented in this encounter Care Teams Dredge Lever Operator Relationship Specialty Start Date End Date Elizabeth Borrego PA [address] [place], [place] [phone] PCP - General Internal Medicine 03/25/20 09/27/23 Luann Lawrence NP Nurse Practitioner Nurse Practitioner 01/06/19 Adarsh Tuttle MD [address] [facility] [address] [place] [address] Consulting Physician Gastroenterology 02/22/19 Sebastien Martinez DO [address] [place] [address] Medical Oncologist/Septic Tank Service Technician Hematology and Oncology 02/22/19 Guru Winters DO [address] [place] [address] Consulting Physician Gastroenterology 02/22/19 Gato Abrams MD [address] [place] [address] Surgeon Surgical Oncology 09/07/19 documented as of this encounter
--- OUTSIDE RECORDS SUMMARY | 2024-10-04 03:02 | XMS_ITS | Encounter Summary ---
Author Organization [facility] Address [address] [place] [address] Phone Care Team Providers Care Md Physician Dermatologist Name Role Phone MelindaLuann Aditya HEBERT Unavailable [phone] Adarsh Tuttle MD Unavailable [phone] Sebastien Martinez DO Unavailable Guru Winters DO Unavailable [phone] Gato Abrams MD Unavailable [phone] Elizabeth Borrego Primary Care Provider [phone] Reason for Visit * Reason Comments Injections * Episode Based Medications (Routine) - Closed Specialty Diagnoses / Procedures Referred By Clemencia t Referred To Contact Oncology Diagnoses Malignant carcinoid tumor of stomach (HCC) Procedures [place] OCTREOTIDE INJECTION, DEPOT Sebastien Martinez, [address] [address] Phone: tel: fax: [facility] [address] [address] Phone: tel: fax: Referral ID Status Reason Start Date Expiration Date Visits Re quested Visits Authorized [id number] Closed 2022 02/19/2023 1 50 Encounter Details Date Type Department Care Team (Late st Contact Info) Description 12/16/2020 8:00 AM FISH PROCESSOR Infusion [facility] Oncology 14[address] [facility] [address] [place] [address] Malignant carcinoid tumor of [...] on file Legal Sex Female 2:22 AM FISH PROCESSOR Gender Identity Female 06/07/2020 8:39 AM CDT Sexual Orientation Not on file 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 Vital signs stable. PROCESSOR documented in this encounter Plan of Treatment [...] 20 mg 20 mg, intramuscular, Once, On 12/16/20 at 0945, For 1 dose, Refrigerate. For IM intragluteal administration only- alternate gluteal sites. Shake.Indications:Malignant carcinoid tumor of stomach (HCC) Given 12/16/2020 9:07 AM FISH PROCESSOR 20 mg Left Dorsogluteal/Butt ock documented in this encounter Orders Appointment Requests Count Last Ordered Date Fi rst Ordered Date ONCBCN INJECTION APPOINTMENT REQUEST 1 10/2020 documented in this encounter Additional Health Concerns Infection Onset Date Last Indicated Resolved Time COVID: Recovered Comment:Added based on recent COVID infection. 08/21/2020 08/23/2020 12/19/2020 3:[address] documented as of this encounter Care Teams Md Physician Dermatologist Relationship Specialty Start Date End Date Elizabeth Borrego PA [address] [place] [address] PCP - General Internal Medicine 03/25/20 09/27/23 Luann Lawrence NP Nurse Practitioner Nurse Practitioner 01/06/19 Adarsh Tuttle MD [address] [facility] [address] [place] [address] Consulting Physician Gastroenterology 02/22/19 Sebastien Martinez DO [facility]8 [facility] 180 [place] [address] Medical Oncologist/Asset Liability Analyst Hematology and Oncology 02/22/19 Guru Winters DO 14[address] [facility] 180 [place] [address] Consulting Physician Gastroenterology 02/22/19 Gato Abrams MD [address] [place] [phone] Surgeon Surgical Oncology 09/07/19 documented as of this encounter
--- OUTSIDE RECORDS SUMMARY | 2024-10-04 03:02 | XMS_ITS | Encounter Summary ---
Author Organization [facility] Address [address] [place] [address] Care Team Providers Care Assistant Purchasing Manager Name Role Phone Luann Lawrence NP Unavailable [phone] Adarsh Tuttle MD Unavailable [phone] Sebastien Martinez DO Unavailable [phone] Guru Winters DO Unavailable [phone] Gato Abrams MD Unavailable Elizabeth Borrego Primary Care Provider [phone] Reason for Visit * Diagnostic Imaging (Routine) - Closed Specialty Diagnoses / Procedures Referred By Clemencia mendez Referred To Contact Procedures Breast Imaging Screening Outside Reference Miscellaneous, Not In File Referral ID Status Reason Start Date Expiration Date Visits Re quested Visits Authorized [id number] Closed 03/30/2023 04/28/2024 1 1 Encounter Details Date Type Department Care Team (Late st Contact Info) Description 11/13/2020 Ancillary Procedure [facility] - Imaging [phone] Social History Tobacco Use Types Packs/Day Years [...] on file Legal Sex Female 2:22 AM SURGICAL INSTRUMENT REPAIR SPECIALIST Gender Identity Female 06/07/2020 8:39 AM CDT Sexual Orientation Not on file 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 us Not In File Miscellaneous IMG MAMMO PROCEDURES F inal Result [facility] documented in this encounter Visit Diagnoses Not on filedocumented in this encounter Additional Health Concerns Infection Onset Date Last Indicated Resolved Time COVID: Recovered Comment:Added based on recent COVID infection. 08/21/2020 08/23/2020 12/19/2020 3:[address] documented as of this encounter Care Teams Assistant Purchasing Manager Relationship Specialty Start Date End Date Elizabeth Borrego PA [address] [place] [address] PCP - General Internal Medicine 03/25/20 09/27/23 Luann Lawrence NP Nurse Practitioner Nurse Practitioner 01/06/19 Adarsh Tuttle MD [address] [place] [address] Consulting Physician Gastroenterology 02/22/19 Sebastien Martinez DO [address] [address] Medical Oncologist/Top Precipitator Operator Helper Hematology and Oncology 02/22/19 Guru Winters DO [address] [place] [address] Consulting Physician Gastroenterology 02/22/19 Gato Abrams MD [address] [place] [address] Surgeon Surgical Oncology 09/07/19 documented as of this encounter
--- OUTSIDE RECORDS SUMMARY | 2024-10-04 03:02 | XMS_ITS | Encounter Summary ---
Author Organization [facility] Address [address] [place] [address] Phone Care Team Providers Care Jazz Musician Name Role Phone Luann Lawrence ANUP Unavailable Adarsh Tuttle MD Unavailable Sebastien Martinez DO Unavailable [phone] Guru Winters DO Unavailable [phone] Gato Abrams MD Unavailable [phone] Elizabeth Borrego Primary Care Provider [phone] Marina Rosales MD Unavailable [phone] Encounter Details Date Type Department Care Team (Late st Contact Info) Description 05/01/2021 Orders Only [facility] Oncology 1418 [facility] [address] [place] [address] Sebastien Martinez DO [address] [facility] [address] [place] [address] Social History Tobacco Use Types Packs/Day [...] on file Legal Sex Female 2:22 AM VP PROJECT Gender Identity Female 06/07/2020 8:39 AM CDT Sexual Orientation Not on file 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 Not on file Not on mikie e documented as of this encounter Plan of Treatment Not on file documented as of this encounter Visit Diagnoses Not on filedocumented in this encounter Care Teams Jazz Musician Relationship Specialty Start Date End Date Elizabeth Borrego PA [address] [facility] [address] [place], [place] [phone] PCP - General Internal Medicine 03/25/20 09/27/23 Luann Lawrence, ANUP Nurse Practitioner Nurse Practitioner 01/06/19 Adarsh Tuttle MD [address] [facility] [address] [place] [address] Consulting Physician Gastroenterology 02/22/19 Sebastien Martinez DO [address] [place] [address] Medical Oncologist/Maintainer [employer] Hematology and Oncology 02/22/19 Guru Winters DO [address] [place] [address] Consulting Physician Gastroenterology 02/22/19 Gato Abrams MD [address] [facility] 180 [place] [address] Surgeon Surgical Oncology 09/07/19 Marina Rosales MD 1095 [facility] 500 [place] [address] Consulting Physician General Surgery 03/24/21 documented as of this encounter
--- OUTSIDE RECORDS SUMMARY | 2024-10-04 03:02 | XMS_ITS | Encounter Summary ---
Author Organization [facility] Address [address] [place] [address] Phone Care Team Providers Care Ceramic Products Sales Engineer Name Role Phone Melinda Luann Burgess NP Unavailable [phone] Adarsh Tuttle MD Unavailable [phone] Sebastien Martinez DO Unavailable [phone] Guru Winters DO Unavailable [phone] Gato Abrams MD Unavailable [phone] Elizabeth Borrego Primary Care Provider [phone] Reason for Visit * Episode Based Medications (Routine) - Closed Specialty Diagnoses / Procedures Referred By Clemencia mendez Referred To Contact Oncology Diagnoses Malignant carcinoid tumor of stomach (HCC) Procedures [place] OCTREOTIDE INJECTION, DEPOT Sebastien Martinez, DO [facility] [address] Phone: tel: fax: [facility] Oncology [address] [address] Phone: tel: fax: Referral ID Status Reason Start Date Expiration Date Visits Re quested Visits Authorized [id number] Closed 2022 02/19/2023 1 50 Encounter Details Date Type Department Care Team (Late st Contact Info) Description 01/13/2021 8:00 AM CDT Infusion [facility] Oncology 1418 [facility] [address] [place] [address] Malignant carcinoid tumor of stomach [...] on file Legal Sex Female 2:22 AM ASSURANCE ENGINEER Gender Identity Female 06/07/2020 8:39 AM CDT Sexual Orientation Not on file 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 For IM intragluteal administration only- alternate gluteal sites. Shamir.Indications:Malignant carcinoid tumor of stomach (HCC) Given 01/13/2021 8:21 AM CDT 20 mg Right Dorsogluteal/Butt ock documented in this encounter Orders Appointment Requests Count Last Ordered Date Fi rst Ordered Date ONCBCN INJECTION APPOINTMENT REQUEST 1 12/17 documented in this encounter Care Teams Ceramic Products Sales Engineer Relationship Specialty Start Date End Date Elizabeth Borrego PA [address] [place] [address] PCP - General Internal Medicine 03/25/20 09/27/23 Luann Lawrence, ANUP Nurse Practitioner Nurse Practitioner 01/06/19 Adarsh Tuttle MD [address] [facility] [address] [place] [address] Consulting Physician Gastroenterology 02/22/19 Sebastien Martinez DO [facility] [address] Medical Oncologist/Associate Director Data & Analytics Hematology and Oncology 02/22/19 Guru Winters DO [facility] [address] Consulting Physician Gastroenterology 02/22/19 Gato Abrams MD [address] [place] [address] Surgeon Surgical Oncology 09/07/19 documented as of this encounter
--- OUTSIDE RECORDS SUMMARY | 2024-10-04 03:03 | XMS_ITS | Encounter Summary ---
Author Organization [facility] Address [address] [place] [address] Phone Care Team Providers Care Licensed Home Inspector Name Role Phone Luann Lawrence NP Unavailable [phone] Adarsh Tuttle MD Unavailable [phone] Sebastien Martinez DO Unavailable [phone] Guru Winters DO Unavailable [phone] Gato Abrams MD Unavailable [phone] Elizabeth Borrego Primary Care Provider [phone] Reason for Visit * Episode Based Medications (Routine) - Closed Specialty Diagnoses / Procedures Referred By Clemencia mendez Referred To Contact Oncology Diagnoses Malignant carcinoid tumor of stomach (HCC) Procedures OR OCTREOTIDE INJECTION, DEPOT Sebastien Martinez, DO [facility] [address] Phone: tel: fax: [facility] Oncology [address] [address] Phone: tel: fax: Referral ID Status Reason Start Date Expiration Date Visits Re quested Visits Authorized [id number] Closed 2022 02/19/2023 1 50 Encounter Details Date Type Department Care Team (Late st Contact Info) Description 10/21/2020 2:00 PM MUSIC THERAPIST Infusion 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 For IM intragluteal administration only- alternate gluteal sites. Shake.Indications:Malignant carcinoid tumor of stomach (HCC) Given 10/21/2020 1:49 PM MUSIC THERAPIST 20 mg Left Dorsogluteal/Butt ock documented in this encounter Orders Appointment Requests Count Last Ordered Date Fi rst Ordered Date ONCBCN INJECTION APPOINTMENT REQUEST 1 01/2021 documented in this encounter Additional Health Concerns Infection Onset Date Last Indicated Resolved Time COVID: Recovered Comment:Added based on recent COVID infection. 08/21/2020 08/23/2020 12/19/2020 3:[address] documented as of this encounter Care Teams Licensed Home Inspector Relationship Specialty Start Date End Date Elizabeth Borrego PA [address] [place], [place] [id number] PCP - General Internal Medicine 03/25/20 09/27/23 Luann Lawrence, ANUP Nurse Practitioner Nurse Practitioner 01/06/19 Adarsh Tuttle MD [address] [facility] [address] [place] [address] Consulting Physician Gastroenterology 02/22/19 Sebastien Martinez DO [address] [place] [address] Medical Oncologist/Pole Setter Hematology and Oncology 02/22/19 Guru Winters DO [address] [place] [address] Consulting Physician Gastroenterology 02/22/19 Gato Abrams MD [address] [place] [address] Surgeon Surgical Oncology 09/07/19 documented as of this encounter
--- OUTSIDE RECORDS SUMMARY | 2024-10-04 03:03 | XMS_ITS | Encounter Summary ---
Author Organization [facility] Address [address] [place] [address] Phone Care Team Providers Care Key Account Executive Name Role Phone Luann Lawrence SAFETY ADVISOR Unavailable Adarsh Tuttle MD Unavailable [phone] Sebastien Martinez DO Unavailable Guru Winters DO Unavailable [phone] Gato Abrams MD Unavailable [phone] Elizabeth Borrego Primary Care Provider [phone] Encounter Details Date Type Department Care Team (Late st Contact Info) Description 09/23/2020 Orders Only [facility] Physicians [facility] Oncology [address] [facility] [address] [place] [address] Sebastien Martinez, DO [address] [facility] [address] [place] [address] 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) Social History Tobacco Use Types Packs/Day Years Used Date Smoking Tobacco: Former Cigarettes 1 2 1 997 - 1998 Smokeless Tobacco: Never Alcohol Use Standard Drinks/Week Comments Yes 2 (1 standard drink = 0.6 oz pur e alcohol) PHQ-2 Answer Date Recorded PHQ-2 Score 0 03/25/2020 Comments No Sex and Gender Information Value Date Recorded Sex Assigned at Not on file Legal Sex Female 2:22 AM STRIKE ON MACHINE OPERATOR Gender Identity Female 06/07/2020 8:39 AM CDT Sexual Orientation Not on file 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 Not on file [...] documented as of this encounter Care Teams Key Account Executive Relationship Specialty Start Date End Date Elizabeth Borrego PA [address] [facility] [address] [place] [address] PCP - General Internal Medicine 03/25/20 09/27/23 Luann Lawrence, ANUP Nurse Practitioner Nurse Practitioner 01/06/19 Adarsh Tuttle MD [address] [facility] [address] [place] [address] Consulting Physician Gastroenterology 02/22/19 Sebastien Martinez DO [address] [facility] [address] [place], [place] [address] Medical Oncologist/Profiler Hematology and Oncology 02/22/19 Guru Winters DO [address] [id number] Consulting Physician Gastroenterology 02/22/19 Gato Abrams MD [facility] [address] Surgeon Surgical Oncology 09/07/19 documented as of this encounter
--- OUTSIDE RECORDS SUMMARY | 2024-10-04 03:03 | XMS_ITS | Encounter Summary ---
Author Organization [facility] Address [address] [facility] [address] [place] [address] Care Team Providers Care Manager Immunology Name Role Phone Luann Lawrence NP Unavailable Adarsh Tuttle MD Unavailable [phone] Sebastien Martinez DO Unavailable Guru Winters DO Unavailable [phone] Gato Abrams MD Unavailable [phone] Elizabeth Borrego Primary Care Provider [phone] Encounter Details Date Type Department Care Team (Late st Contact Info) Description 08/07/2020 8:30 AM CDT Telemedicine [facility] Family Medicine [address] [facility] [address] [place] [address] Elizabeth Borrego PA [address] [facility] [address] [place] [address] Fever, unspecified fever cause (Primary Dx) Social History Tobacco Use Types [...] on file Legal Sex Female 2:22 AM HIGH VOLTAGE ELECTRICIAN Gender Identity Female 06/07/2020 8:39 AM CDT Sexual Orientation Not on file 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 Subjective/Objective Patient ID: Fabiola Gibson is a 55 y.o. female. Chief Complaint No chief complaint on file. HPI This was a telemedicine visit with the patient which took place via real-time video connection with[employer]. During the visit, I was located in [place], [place] office and the patient was located at home in the [facility]. The patient visit started at 9:52am and ended at 10:15a. This re flects the time spent in medical discussion. The patient has been informed that the visit may not be secure and acknowledged the information. I have explained the option of participating in a telephone or video visit during the COVID-19 public health emergency to the patient. After being given an opportunity to ask questions about and discuss this type of visit, the patient verbally consented to proceeding with the telephone/video visit.The patient understands that this service replaces an office visit and they may be billed and/or responsible for any applicable copayments. Yesterday 2am - took Tylenol Moore achey/yucky and went to work. Went to work with no fever. Had a temp mid-day so couldn't go back to work. Little cough. Scratchy throat Myalgia No rhinorrhea. Still has taste or smell. 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 HENT: Positive for sore throat. Respiratory: Negative for cough and chest tightness. Cardiovascular: Negative for chest pain. Gastrointestinal: Negative for abdominal pain. Musculoskeletal: Positive for arthralgias and myalgias. There were no vitals filed for this visit. Physical Exam Constitutional: Appearance: Normal appearance. She is ill-appearing. HENT: Head: Normocephalic and atraumatic. Eyes: Comments: Pupils are equal Pulmonary: Effort: Pulmonary effort is normal. Comments: No audible wheezing or distress Skin: General: Skin is dry. Neurological: Mental Status: She is alert. Psychiatric: Mood and Affect: Mood normal. Assessment/Plan Diagnoses and all orders for this visit: Fever, unspecified fever cause (R50.9) (Primary) Assessment & Plan: Sxs can be consistent with COVID or Flu or other viral syndrome. Recommend testing. Refer to [facility] site. Call immediately for increased sxs/distress or go to ER as instructed below notifying them prior toarrival of presumptive positive. Pt instructed to presume positive COVID until [...] water often. If needed, use a hand welding foreman that contains at least 60% alcohol. ?? Clean and disinfect frequently touched surfaces such as tables, doorknobs, countertops, etc daily. ?? Avoid touching your eyes, nose, and mouth when possible. Orders: - Request for Ambulatory Collection Site Testing - Adult; Future [employer] Parekh-C documented in this encounter Miscellaneous Notes * Assessment & Plan Note - Elizabeth Borrego PA - 08/07/2020 10:17 AM CDT Associated Problem(s): Fever Sxs can be consistent with COVID or Flu or other viral syndrome. Recommend testing. Refer to [facility] Collection site. Call immediately for increased sxs/distress or go to ER as instructed below notifying them prior toarrival of presumptive positive. Start Zinc and Vitamin [...] water often. If needed, use a hand welding foreman that contains at least 60% alcohol. ?? Clean and disinfect frequently touched surfaces such as tables, doorknobs, countertops, etc daily. ?? Avoid touching your eyes, nose, and mouth when possible. documented in this encounter Plan of Treatment Not on file documented as of this encounter Visit Diagnoses Diagnosis Fever, unspecified fever cause- Primary documented in this encounter Discontinued Medications Medication Sig Discontinue Reason Start Date End Da te acetaminophen ER (TYLENOL) 650 mg 8 hr tablet Take 1,300 mg by mouth every 8 (eight) hours as needed for pain Therapy completed 08/07/2020 loperamide (Imodium A-D) 2 mg tabletIndications:shannan rrhea Take 2 mg by mouth 3 (three) times a day as needed for diarrhea Therapy completed 08/07/2020 polyethylene glycol (MIRALAX) 17 gram packetIndications:con stipation Take 17 g by mouth daily as needed for constipation Therapy completed 08/07/2020 oxyCODONE (OXY-IR) 5 mg capsuleIndications:Pa in Take 5 mg by mouth every 4 (four) hours as needed for moderate pain (pain scale 5-7) Therapy completed 08/07/2020 documented as of this encounter Care Teams Manager Immunology Relationship Specialty Start Date End Date Elizabeth Borrego PA [address] [facility] [address] [place] [address] PCP - General Internal Medicine 03/25/20 09/27/23 Luann Lawrence NP Nurse Practitioner Nurse Practitioner 01/06/19 Adarsh Tuttle MD [address] [facility] 210 [place] [address] Consulting Physician Gastroenterology 02/22/19 Sebastien Martinez DO [address] [place] [id number] Medical Oncologist/Student Services Vice President Hematology and Oncology 02/22/19 Guru Winters DO [address] [place] [id number] Consulting Physician Gastroenterology 02/22/19 Gato Abrams MD [address] [place] [id number] Surgeon Surgical Oncology 09/07/19 documented as of this encounter
--- OUTSIDE RECORDS SUMMARY | 2024-10-04 03:03 | XMS_ITS | Encounter Summary ---
Author Organization [facility] Address [address] [place] [address] Care Team Providers Care Curatorial Specialist Name Role Phone Luann Lawrence NP Unavailable [phone] Adarsh Tuttle MD Unavailable [phone] Sebastien Martinez DO Unavailable Guru Winters DO Unavailable [phone] Gato Abrams MD Unavailable Elizabeth Borrego Primary Care Provider [phone] Encounter Details Date Type Department Care Team (Late st Contact Info) Description 08/26/2020 9:51 AM ENERGY PROJECT MANAGER - 09/16/2020 11:59 PM ENERGY PROJECT MANAGER Hospital Encounter [facility] INTERIM Sebastien Martinez, DO [address] [address] Social History Tobacco Use Types [...] on file Legal Sex Female 2:22 AM ENERGY PROJECT MANAGER Gender Identity Female 06/07/2020 8:39 AM CDT Sexual Orientation Not on file 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 Not on mikie e documented as of this encounter Medications at Time of Discharge cholecalciferol (VITAMIN D-3) 1,000 unit capsuleIndicatio ns:Vitamin D Deficiency Take 2 capsules (2,000 Units total) by mouth corporate manager before breakfast ALPRAZolam (XANAX) 0.25 mg tablet Take 1 tablet (0.25 mg total) by mouth 3 (three) times a day as needed for anxiety 30 tablet 08/09/2020 1 buPROPion XL (WELLBUTRIN XL) 150 mg 24 hr tabletIndication s:Anxiety with Depression Take 1 tablet (150 mg total) by mouth every morning 90 tablet 1 03/25/2020 0 cyanocobalamin (Vitamin B-12) 1,000 mcg/mL injection Inject 1 mL (1,000 mcg total) into the muscle as instructed every 30 (thirty) days 3 mL 2 12/25/2019 1 escitalopram (LEXAPRO) 10 mg tablet TAKE 1 TABLET BY MOUTH IN THE MORNING 90 tablet 3 08/12/2020 0 hydroxychloroqui ne (PLAQUENIL) 200 mg tabletIndication s:Arthritis Take 1 tablet (200 mg total) by mouth corporate manager before breakfast 01/30/2019 3 Insulin Syringe MicroFine 1/2 mL 28 gauge x 1/2 syringe 08/26/2020 1 insulin syringe-needle U-100 1 mL 29 gauge x 1/2 syringe 1 Syringe every 30 (thirty) days 100 each 08/26/2020 1 multivitamin capsuleIndicatio ns:Vitamin Deficiency Prevention Take 1 capsule by mouth corporate manager before breakfast 4 octreotide LAR (SandoSTATIN LAR) 20 mg suspension,exten ded rel reconIndications :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 Inject 10 mg into the muscle as instructed every 28 (twenty-eight) days Pt unsure of dosage 2 pravastatin (PRAVACHOL) 40 mg tablet TAKE 1 TABLET BY MOUTH IN THE MORNING 90 tablet 3 08/12/2020 0 valsartan-hydroC HLOROthiazide (DIOVAN-HCT) 80-12.5 mg per tabletIndication s:hypertension TAKE 1 TABLET BY MOUTH DAILY 90 tablet 1 07/22/2020 12/15/202 0 documented as of this encounter Plan of Treatment Not on file documented as of this encounter Visit Diagnoses Not on filedocumented in this encounter Additional Health Concerns Infection Onset Date Last Indicated Resolved Time COVID: Recovered Comment:Added based on recent COVID infection. 08/21/2020 08/23/2020 12/19/2020 3:[address] documented as of this encounter Care Teams Curatorial Specialist Relationship Specialty Start Date End Date Elizabeth Borrego PA [address] [address] [place] [address] PCP - General Internal Medicine 03/25/20 09/27/23 Luann Lawrence, ANUP Nurse Practitioner Nurse Practitioner 01/06/19 Adarsh Tuttle MD [address] [facility] [address] [place] [address] Consulting Physician Gastroenterology 02/22/19 Sebastien Martinez DO [facility]8 [facility] [address] [place] [address] Medical Oncologist/Clinical Statistical Programmer Hematology and Oncology 02/22/19 Guru Winters DO [facility]8 [facility] [address] [place] [address] Consulting Physician Gastroenterology 02/22/19 Gato Abrams MD [address] [place] [address] [address] [place] [address] Surgeon Surgical Oncology 09/07/19 documented as of this encounter
--- OUTSIDE RECORDS SUMMARY | 2024-10-04 03:03 | XMS_ITS | Encounter Summary ---
Author Organization [facility] Group Address [address] [facility] [address] [place] [address] Care Team Providers Care Director Construction Services Name Role Phone Luann Lawrence NP Unavailable [phone] Adarsh Tuttle MD Unavailable [phone] Sebastien Martinez DO Unavailable [phone] Guru Winters DO Unavailable [phone] Gato Abrams MD Unavailable [phone] Elizabeth Borrego Primary Care Provider [phone] Encounter Details Date Type Department Care Team (Late st Contact Info) Description 10/28/2020 Orders Only [facility] Family Medicine [address] [facility] [address] [place] [address] Provider, MD Pedro [facility] [place] [address] Social History Tobacco Use Types Packs/Day [...] file Legal Sex Female 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 Gender Identity Female 06/07/2020 8:39 AM CDT Sexual Orientation Not on file 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 08/21/2020 08/23/2020 12/19/2020 3:[address] documented as of this encounter Care Teams Director Construction Services Relationship Specialty Start Date End Date Elizabeth Borrego PA [address] [facility] [address] [place], [place] [phone] PCP - General Internal Medicine 03/25/20 09/27/23 Luann Lawrence, ANUP Nurse Practitioner Nurse Practitioner 01/06/19 Adarsh Tuttle MD [address] [facility] [address] [place] [address] Consulting Physician Gastroenterology 02/22/19 Sebastien Martinez DO [address] [place] [address] Medical Oncologist/Button Sawyer Hematology and Oncology 02/22/19 Guru Winters DO [facility] [address] Consulting Physician Gastroenterology 02/22/19 Gato Abrams MD [address] [place] [address] Surgeon Surgical Oncology 09/07/19 documented as of this encounter
--- OUTSIDE RECORDS SUMMARY | 2024-10-04 03:03 | XMS_ITS | Encounter Summary ---
Author Organization [facility] Address [address] [place] [address] Phone Care Team Providers Care Product Support Sales Representative Name Role Phone Luann Lawrence MEDICAL STAFF ASSISTANT Unavailable [phone] Adarsh Tuttle MD Unavailable [phone] Sebastine Martinez DO Unavailable [phone] Guru Winters DO Unavailable [phone] Gato Abrams MD Unavailable [phone] Elizabeth Borrego Primary Care Provider [phone] Encounter Details Date Type Department Care Team (Late st Contact Info) Description 10/20/2020 Orders Only [facility] Oncology [address] [facility] [address] [place] [address] Sebastien Martinez, DO [address] [facility] [address] [place] [address] Malignant carcinoid tumor of stomach [...] on file Legal Sex Female 2:22 AM 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 Gender Identity Female 06/07/2020 8:39 AM CDT Sexual Orientation Not on file 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 Not on file [...] as of this encounter Care Teams Product Support Sales Representative Relationship Specialty Start Date End Date Elizabeth Borrego PA [address] [facility] 500 [place], [place] [phone] PCP - General Internal Medicine 03/25/20 09/27/23 Luann Lawrence, ANUP Nurse Practitioner Nurse Practitioner 01/06/19 Adarsh Tuttle MD [address] [facility] [address] [place] [address] Consulting Physician Gastroenterology 02/22/19 Sebastien Martinez DO [address] [place] [address] Medical Oncologist/Pillowcase Cleaner Hematology and Oncology 02/22/19 Guru Winters DO [address] [place] [id number] Consulting Physician Gastroenterology 02/22/19 Gato Abrams MD [address] [place] [address] Surgeon Surgical Oncology 09/07/19 documented as of this encounter
--- OUTSIDE RECORDS SUMMARY | 2024-10-04 03:03 | XMS_ITS | Encounter Summary ---
Author Organization [facility] Address [address] [facility] [address] [place] [address] Care Team Providers Care Food Service Clerk Name Role Phone Luann Lawrence NP Unavailable [phone] Adarsh Tuttle MD Unavailable Sebastien Martinez DO Unavailable [phone] Guru Winters DO Unavailable [phone] Gato Abrams MD Unavailable Elizabeth Borrego Primary Care Provider [phone] Encounter Details Date Type Department Care Team (Late st Contact Info) Description 08/09/2020 Telephone [facility] Family Medicine [address] [place] [address] Elizabeth Borrego PA [address] [place] [address] Social History Tobacco Use Types [...] on file Legal Sex Female 2:22 AM SURVEYOR HELPER Gender Identity Female 06/07/2020 8:39 AM CDT Sexual Orientation Not on file 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 Not 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 She wanted to know what she could take for congestion/ runny nose. Per provider I suggested she add Mucinex to help thin the mucus. * Telephone Encounter - Kimber Lozano MA - 08/13/2020 4:34 PM CDT Called and left patient a voicemail to return call * Telephone Encounter - Elizabeth Borrego PA - 08/13/2020 3:28 PM CDT Please call and check on patient. She has COVID (was positive on 08/08) * Telephone Encounter - Elizabeth Borrego PA - 08/13/2020 3:26 PM CDT Late entry: 08/09 -- Started patient on Xanax prn and albuterol prn Pt was anxious about the COVID dx. Discussed at length and calmer after discussion. * Telephone Encounter - Sara Hussein MA - 08/09/2020 9:27 AM CDT Patient called in to check on her mychart message and to request something for anxiety. She said that she is getting very anxious the more she thinks about having COVID. * Telephone Encounter - Sara Hussein MA - 08/09/2020 9:27 AM CDT ----- Message from Fabiola Gibson sent at 08/09/2020 1:41 AM CDT ----- Regarding: Visit Follow-Up Question Contact: Elizabeth, I am wanting to see if you can call me in the albuterol inhaler, Z-pack, and some cough syrup that we discussed over the phone on Wednesday. I am a bit panicked that my symptoms will worsen today/ weekend and you will be closed. I use [facility] on [address]. I'm just concerned about my cough/ chest a bit. It seems ok for the moment but a bit different than yesterday. If that makes sense. Thanks so much Fabiola Gibson documented in this encounter Plan of Treatment Not on file documented as of this encounter Visit Diagnoses Not on filedocumented in this encounter Additional Health Concerns Infection Onset Date Last Indicated Resolved Time COVID19 08/07/2020 08/07/2020 08/21/2020 3:06 AM SURVEYOR HELPER COVID: Recovered Comment:Added based on recent COVID infection. 08/21/2020 08/23/2020 12/19/2020 3:[address] documented as of this encounter Care Teams Food Service Clerk Relationship Specialty Start Date End Date Elizabeth Borrego PA [address] [facility] [address] [place] [address] PCP - General Internal Medicine 03/25/20 09/27/23 Luann Lawrence, PIE TOPPER Nurse Practitioner Nurse Practitioner 01/06/19 Adarsh Tuttle MD [address] [facility] [address] [place] [address] Consulting Physician Gastroenterology 02/22/19 Sebastien Martinez DO [address] [place] [address] Medical Oncologist/Structures Technician Hematology and Oncology 02/22/19 Guru Winters DO [address] [place] [address] 285229 Consulting Physician Gastroenterology 02/22/19 Gato Abrams MD [address] [place] [address] [id number] Surgeon Surgical Oncology 09/07/19 documented as of this encounter
--- OUTSIDE RECORDS SUMMARY | 2024-10-04 03:03 | XMS_ITS | Encounter Summary ---
Author Organization [facility] Address [address] [facility] [address] [place] [address] Care Team Providers Care Food Selector Name Role Phone Luann Lawrence NP Unavailable Adarsh Tuttle MD Unavailable [phone] Sebastien Martinez DO Unavailable [phone] Guru Winters DO Unavailable [phone] Gato Abrams MD Unavailable [phone] Elizabeth Borrego Primary Care Provider [phone] Reason for Visit * Reason Onset Date Comments Covid-19 Home Monitoring 08/16/2020 incomin g call Encounter Details Date Type Department Care Team (Late st Contact Info) Description 08/16/2020 Telephone [facility] Accountable Care Organization [address] [place] [address] Jacinda Miranda, MEE [address] [place] [address] [facility] [address] [place] [address] Covid-19 Home Monitoring (incoming call ) Social History Tobacco Use Types Packs/Day Years [...] on file Legal Sex Female 2:22 AM WORKPLACE RELATIONS ADVISER Gender Identity Female 06/07/2020 8:39 AM CDT Sexual Orientation Not on file 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 She is stating she is on day 10 and had been fever free for more that 3 days and woke up this morning with 99.2f I did tell her we do not consider that a fever till 100.4f. She still had questions and I let her know that I would have an RN call to see if can answer them for her. documented in this encounter Plan of Treatment Not on file documented as of this encounter Visit Diagnoses Not on filedocumented in this encounter Additional Health Concerns Infection Onset Date Last Indicated Resolved Time COVID19 08/07/2020 08/07/2020 08/21/2020 3:06 AM WORKPLACE RELATIONS ADVISER COVID: Recovered Comment:Added based on recent COVID infection. 08/21/2020 08/23/2020 12/19/2020 3:[address] documented as of this encounter Care Teams Food Selector Relationship Specialty Start Date End Date Elizabeth Borrego PA [address] [place] [address] PCP - General Internal Medicine 03/25/20 09/27/23 Luann Lawrence NP Nurse Practitioner Nurse Practitioner 01/06/19 Adarsh Tuttle MD [address] [place] [address] Consulting Physician Gastroenterology 02/22/19 [place] [address] [place] [address] Medical Oncologist/Tax Collector Hematology and Oncology 02/22/19 Guru Winters DO [address] [place] [address] Consulting Physician Gastroenterology 02/22/19 Gato Abrams MD [address] [place] [address] Surgeon Surgical Oncology 09/07/19 documented as of this encounter
--- OUTSIDE RECORDS SUMMARY | 2024-10-04 03:03 | XMS_ITS | Encounter Summary ---
Author Organization [facility] Address [address] [facility] [address] [place] [address] Phone Care Team Providers Care Nursing Home Manager Name Role Phone Luann Lawrence ANUP Unavailable [phone] Adarsh Tuttle MD Unavailable [phone] Sebastien Martinez DO Unavailable [phone] Guru Winters DO Unavailable [phone] Gato Abrams MD Unavailable Elizabeth Borrego Primary Care Provider [phone] Reason for Visit * Reason Onset Date Comments Scheduling Appointments 08/27/2020 Encounter Details Date Type Department Care Team (Late st Contact Info) Description 08/27/2020 Telephone [facility] [address] [facility] [address] 8th [place] [address] [place] [address] Gato Abrams MD [address] [facility] [id number] [place] [address] Scheduling Appointments Social History Tobacco Use Types [...] on file Legal Sex Female 2:22 AM WEAVING SUPERVISOR Gender Identity Female 06/07/2020 8:39 AM CDT Sexual Orientation Not on file 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 I mailed out a letter to patient's address with details. ING SUPERVISOR documented in this encounter Plan of Treatment Not on file documented as of this encounter Visit Diagnoses Not on filedocumented in this encounter Additional Health Concerns Infection Onset Date Last Indicated Resolved Time COVID: Recovered Comment:Added based on recent COVID infection. 08/21/2020 08/23/2020 12/19/2020 3:[address] documented as of this encounter Care Teams Nursing Home Manager Relationship Specialty Start Date End Date Elizabeth Borrego PA [address] [place] [address] PCP - General Internal Medicine 03/25/20 09/27/23 Luann Lawrence NP Nurse Practitioner Nurse Practitioner 01/06/19 Adarsh Tuttle MD [address] [place] [address] Consulting Physician Gastroenterology 02/22/19 Sebastien Martinez DO [address] [facility] [address] [place] [address] Medical Oncologist/Personal Banker Hematology and Oncology 02/22/19 Guru Winters DO [address] [address] Consulting Physician Gastroenterology 02/22/19 Gato Abrams MD [address] [address] Surgeon Surgical Oncology 09/07/19 documented as of this encounter
--- OUTSIDE RECORDS SUMMARY | 2024-10-04 03:03 | XMS_ITS | Encounter Summary ---
Author Organization [facility] Address [address] [facility] [address] [place] [address] Care Team Providers Care Tile Installer Name Role Phone Luann Lawrence NP Unavailable Adarsh Tuttle MD Unavailable [phone] Sebastien Martinez DO Unavailable [phone] Guru Winters DO Unavailable [phone] Gato Abrams MD Unavailable [phone] Elizabeth Borrego Primary Care Provider [phone] Reason for Visit * Reason Onset Date Comments Covid-19 Home Monitoring 08/10/2020 enrollm ent [facility] first encounter Encounter Details Date Type Department Care Team (Late st Contact Info) Description 08/10/2020 Telephone [facility] Post Acute Care [address] [facility] [address], [place] [address] Maday Adkins MA [address] [place] [address] [address] [place] [address] Covid-19 Home Monitoring (enrollment [facility] first encounter) Social History Tobacco Use Types Packs/Day Years [...] on file 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 The patient was contacted via phone for enrollment in the program, but could not be reached to accept or decline. Next program call due: 08/11 documented in this encounter Plan of Treatment Not on file documented as of this encounter Visit Diagnoses Not on filedocumented in this encounter Additional Health Concerns Infection Onset Date Last Indicated Resolved Time COVID19 08/07/2020 08/07/2020 08/21/2020 3:06 AM VETERINARY MEDICINE SCIENTIST documented as of this encounter Care Teams Tile Installer Relationship Specialty Start Date End Date Elizabeth Borrego PA [address] [facility] [address] [place] [address] PCP - General Internal Medicine 03/25/20 09/27/23 Luann Lawrence NP Nurse Practitioner Nurse Practitioner 01/06/19 Adarsh Tuttle MD [address] [facility] [place] [facility] [address] [place] [address] Consulting Physician Gastroenterology 02/22/19 Sebastien Martinez DO [address] [facility] [address] [place] [address] Medical Oncologist/Tool Operator Hematology and Oncology 02/22/19 Guru Winters DO [address] [address] Consulting Physician Gastroenterology 02/22/19 Gato Abrams MD [address] [place] [address] Surgeon Surgical Oncology 09/07/19 documented as of this encounter
--- OUTSIDE RECORDS SUMMARY | 2024-10-04 03:03 | XMS_ITS | Encounter Summary ---
Author Organization [facility] Address [address] [facility] [address] [place] [address] Care Team Providers Care Hospitality Housekeeper Name Role Phone Luann Lawrence NP Unavailable [phone] Adarsh Tuttle MD Unavailable [phone] Sebastien Martinez DO Unavailable [phone] Guru Winters DO Unavailable [phone] Gato Abrams MD Unavailable [phone] Elizabeth Borrego Primary Care Provider [phone] Reason for Visit * Reason Onset Date Comments Covid-19 Home Monitoring 08/13/2020 Enrollm ent call day 3 Encounter Details Date Type Department Care Team (Late st Contact Info) Description 08/13/2020 Telephone [facility] Accountable Care Organization [address] [place] [address] Ginger Kincaid MA [address] [place] [address] [facility] [address] [place] [address] Covid-19 Home Monitoring (Enrollment call day 3 ) Social History Tobacco Use Types Packs/Day [...] on file 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 The patient was contacted via phone for enrollment in the program. The following criteria were reviewed with the patient: - Active MyChart (or willing to activate today): No Please send patient activation link and confirm that they have received. Patients with active MyChart but who are uncertain how to access should be directed to the [employer] support center at: [phone] or [phone]. - Tablet or SmartPhone with MyChart Maged or ability to download MyChart Maged today: No - Agree to complete a daily questionnaire about their symptoms (this will be sent to their phone ator around 9am daily): No The patient was informed that members of the healthcare team will contact them depending on the symptoms that they report. This call could come from a variety of phone numbers depending on which member of the healthcare team is contacting the patient, and the patient should be prepared to answer calls from a variety of phone numbers. If the patient reports concerning symptoms but is unable to be contacted, the police department maybe contacted to perform a security check. After review, the patient declined to participate. The ???COVID19 Home Monitoring?? order was not placed to enroll the patient. [facility] in [facility], her work place and her PCP office. Hotline number provided if needed. documented in this encounter Plan of Treatment Not on file documented as of this encounter Visit Diagnoses Not on filedocumented in this encounter Additional Health Concerns Infection Onset Date Last Indicated Resolved Time COVID19 08/07/2020 08/07/2020 08/21/2020 3:06 AM TOLL TESTBOARD WORKER documented as of this encounter Care Teams Hospitality Housekeeper Relationship Specialty Start Date End Date Elizabeth Borrego PA [address] [facility] [address] [place] [address] PCP - General Internal Medicine 03/25/20 09/27/23 Luann Lawrence, ANUP Nurse Practitioner Nurse Practitioner 01/06/19 Adarsh Tuttle MD [address] [facility] [address] [place] [address] Consulting Physician Gastroenterology 02/22/19 Sebastien Martinez DO [address] [place] [address] Medical Oncologist/Systems Applications Programming Lead Hematology and Oncology 02/22/19 Guru Winters DO [address] [place] [address] 970229 Consulting Physician Gastroenterology 02/22/19 Gato Abrams MD [address] [place] [id number] Surgeon Surgical Oncology 09/07/19 documented as of this encounter
--- OUTSIDE RECORDS SUMMARY | 2024-10-04 03:03 | XMS_ITS | Encounter Summary ---
Author Organization [facility] Address [address] [place] [address] Care Team Providers Care General Partner Name Role Phone Luann Lawrence NP Unavailable [phone] Adarsh Tuttle MD Unavailable [phone] Sebastien Martinez DO Unavailable [phone] Guru Winters DO Unavailable [phone] Gato Abrams MD Unavailable [phone] [facility] Borrego Primary Care Provider [phone] Reason for Referral * Diagnostic Imaging (Routine) - Closed Specialty Diagnoses / Procedures Referred By Clemencia mendez Referred To Contact Radiology Diagnoses Malignant carcinoid tumor of stomach (HCC) Procedures CT Abdomen Pelvis W WO Contrast CT Abdomen Pelvis W Contrast Gato Abrams MD [address] [place] [address] Phone: tel: fax: [address] [address] Referral ID Status Reason Start Date Expiration Date Visits Re quested Visits Authorized [id number] Closed 02/23/2020 09/03/2021 1 1 RITY LEAD Reason for Visit * Diagnostic Imaging (Routine) - Closed Specialty Diagnoses / Procedures Referred By Clemencia mendez Referred To Contact Radiology Diagnoses Malignant carcinoid tumor of stomach (HCC) Procedures CT Abdomen Pelvis W WO Contrast CT Abdomen Pelvis W Contrast Gato Abrams MD [address] [address] Phone: tel: fax: [facility] [address] [facility] [place] [address] Referral ID Status Reason Start Date Expiration Date Visits Re quested Visits Authorized [id number] Closed 02/23/2020 09/03/2021 1 1 Encounter Details Date Type Department Care Team (Latest Contact Info) Description 08/26/2020 11:39 AM SECURITY LEAD - 08/26/2020 11:59 PM SECURITY LEAD Hospital Encounter [facility] [address] [place] [phone] Gato Abrams MD [address] [facility] [id number] [place] [address] Malignant carcinoid tumor of stomach (CMS/HCC) Discharge [...] on file Legal Sex Female 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 SECURITY 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 Gender Identity Female 06/07/2020 8:39 AM CDT Sexual Orientation Not on file 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 Not on file Not on mikie e documented as of this encounter Medications at Time of Discharge cholecalciferol (VITAMIN D-3) 1,000 unit capsuleIndicatio ns:Vitamin D Deficiency Take 2 capsules (2,000 Units total) by mouth keyboard specialist before breakfast albuterol HFA (ProAir HFA) 90 mcg/actuation inhaler Inhale 2 puffs every 4 (four) hours as needed for wheezing or shortness of breath 8.5 g 08/09/2020 0 ALPRAZolam (XANAX) 0.25 mg tablet Take 1 [...] 1 tablet (200 mg total) by mouth keyboard specialist before breakfast 01/30/2019 3 Insulin Syringe MicroFine 1/2 mL 28 gauge x 1/2 syringe 08/26/2020 1 insulin syringe-needle U-100 1 mL 29 gauge x 1/2 syringe 1 Syringe every 30 (thirty) days 100 each 08/26/2020 1 multivitamin capsuleIndicatio ns:Vitamin Deficiency Prevention Take 1 capsule by mouth keyboard specialist before breakfast 4 octreotide LAR (SandoSTATIN LAR) [...] BY MOUTH DAILY 90 tablet 1 07/22/2020 0 documented as of this encounter Discharge Disposition Disposition Code Departure Means Destination Discharge to home or self care documented in this encounter Plan of Treatment Not on file documented as of this encounter Procedures Procedure Name Priority Date/Time Associated Diagnosis Comments CT ABDOMEN PELVIS W WO CONTRAST Schedule Routine, Read Routine (OP Routine) 08/26/2020 12:28 PM SECURITY LEAD Malignant carcinoid tumor of stomach (CMS/HCC) documented in this encounter Results * CT Abdomen Pelvis W WO Contrast (08/26/2020 12:28 PM SECURITY LEAD) Anatomical Region Laterality Modality Body N/A Computed Tomogra phy 08/26/2020 2:19 PM SECURITY LEAD Impressions 08/26/2020 2:19 PM SECURITY LEAD 1. 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 2. Stable postsurgical changes of distal gastrectomy and Billroth II gastrojejunostomy, without CT evidence of recurrent or metastatic disease within the abdomen. Electronically signed by: Sal Coy M.D. Narrative 08/26/2020 2:19 PM SECURITY LEAD EXAMINATION: CT ABDOMEN PELVIS W WO CONTRAST HISTORY: 55 years-old Female with status post distal gastrectomy with Billroth II gastrojejunostomy on 08/23/2019 for atrophic gastritis with well-differentiated gastric carcinoid tumors on pathology, suspected carcinoid involving the uncinate process of the pancreas. Follow-up evaluation. TECHNIQUE: Transaxial computed tomographic images of the abdomen and pelvis were obtained before and after the uneventful administration of 100 mL Optiray 350 according to pancreas protocol. COMPARISON: CT dated 06/03/2020. FINDINGS: Stable size and configuration of a 6 mm hyperenhancing lesion within the pancreatic uncinate (table position 398), corresponding to the focus of increased uptake on DOTATE PET CT, and compatible with a well-differentiated neuroendocrine tumor. ??No new or enlarging pancreatic lesion is identified. ??No pancreatic ductal dilatation. ??Note is made of partial pancreatic divisum. Heart is normal in size. ??No pleural or pericardial effusion. Scattered small pulmonary nodules are seen within the lung bases, for instance a 3 mm pulmonary nodule right middle lobe on table position 544 which is unchanged, as is a 4 mm pulmonary nodule in the right lower lobe on table position 542. ??No focal consolidation within the visualized lung bases. No focal hepatic lesion. ??Portal vein, superior mesenteric vein, and hepatic veins are patent. ??Gallbladder is normal. ??There is minimal dilatation of the extra hepatic bile duct which tapers normally and unchanged. Postsurgical changes of distal gastrectomy with Billroth II gastrojejunostomy. ??No CT findings of recurrent disease at or near the gastrojejunal anastomosis. ??No mesenteric or abdominal lymphadenopathy is identified. No distended or abnormally thickened loops of small or large bowel. No free fluid or free intracranial gas. ??Uterus is normal. ??No adnexal mass. ??Tiny follicle the right ovary. There are sequela of medication injection within the gluteal regions. Bone windows demonstrate no suspicious osseous lesions. ??Unchanged bone island within the right iliac wing, when correlated with PET/CT. Procedure Note Sal Coy MD - 08/26/2020 EXAMINATION: CT ABDOMEN PELVIS W WO CONTRAST HISTORY: 55 years-old Female with status post distal gastrectomy with Billroth II gastrojejunostomy on 08/23/2019 for atrophic gastritis with well-differentiated gastric carcinoid tumors on pathology, suspected carcinoid involving the uncinate process of the pancreas. Follow-up evaluation. TECHNIQUE: Transaxial computed tomographic images of the abdomen and pelvis were obtained before and after the uneventful administration of 100 mL Optiray 350 according to pancreas protocol. COMPARISON: CT dated 06/03/2020. FINDINGS: Stable size and configuration of a 6 mm hyperenhancing lesion within the pancreatic uncinate (table position 398), corresponding to the focus of increased uptake on DOTATE PET CT, and compatible with a well-differentiated neuroendocrine tumor. No new or enlarging pancreatic lesion is identified. No pancreatic ductal dilatation. Note is made of partial pancreatic divisum. Heart is normal in size. No pleural or pericardial effusion. Scattered small pulmonary nodules are seen within the lung bases, for instance a 3 mm pulmonary nodule right middle lobe on table position 544 which is unchanged, as is a 4 mm pulmonary nodule in the right lower lobe on table position 542. No focal consolidation within the visualized lung bases. No focal hepatic lesion. Portal vein, superior mesenteric vein, and hepatic veins are patent. Gallbladder is normal. There is minimal dilatation of the extra hepatic bile duct which tapers normally and unchanged. Postsurgical changes of distal gastrectomy with Billroth II gastrojejunostomy. No CT findings of recurrent disease at or near the gastrojejunal anastomosis. No mesenteric or abdominal lymphadenopathy is identified. No distended or abnormally thickened loops of small or large bowel. No free fluid or free intracranial gas. Uterus is normal. No adnexal mass. Tiny follicle the right ovary. There are sequela of medication injection within the gluteal regions. Bone windows demonstrate no suspicious osseous lesions. Unchanged bone island within the right iliac wing, when correlated with PET/CT. IMPRESSION: 1. 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 2. Stable postsurgical changes of distal gastrectomy and Billroth II gastrojejunostomy, without CT evidence of recurrent or metastatic disease within the abdomen. Electronically signed by: Sal Coy M.D. Gato Abrams MD IMG CT PROCEDURES [...] intravenous, Once in imaging, contrast, Starting on 08/26/20 at 1220, For 1 dose Given 08/26/2020 12:29 PM SECURITY LEAD 100 mL documented in this encounter Additional Health Concerns Infection Onset Date Last Indicated Resolved Time COVID: Recovered Comment:Added based on recent COVID infection. 08/21/2020 08/23/2020 12/19/2020 3:[address] documented as of this encounter Care Teams General Partner Relationship Specialty Start Date End Date [place] Borrego PA [address] [place] [address] PCP - General Internal Medicine 03/25/20 09/27/23 Luann Lawrence NP Nurse Practitioner Nurse Practitioner 01/06/19 Adarsh Tuttle MD [address] [place] [address] Consulting Physician Gastroenterology 02/22/19 Sebastien Martinez DO [address] [place] [address] [phone] Medical Oncologist/Gym Teacher Hematology and Oncology 02/22/19 Guru Winters DO [address] [place] [address] [phone] Consulting Physician Gastroenterology 02/22/19 Gato Abrams MD [address] [place] [address] Surgeon Surgical Oncology 09/07/19 documented as of this encounter
--- OUTSIDE RECORDS SUMMARY | 2024-10-04 03:03 | XMS_ITS | Encounter Summary ---
Author Organization [facility] Address [address] [place] [address] Care Team Providers Care Head Animal Keeper Name Role Phone Luann Lawrence NP Unavailable [phone] Adarsh Tuttle MD Unavailable [phone] Sebastien Martinez DO Unavailable [phone] Guru Winters DO Unavailable [phone] Gato Abrams MD Unavailable [phone] [place] Borrego Primary Care Provider [phone] Reason for Visit * Reason Comments Follow-up Encounter Details Date Type Department Care Team (Late st Contact Info) Description 10/01/2020 1:45 PM OIL MIXER Office Visit [facility] Family Medicine [address] [place] [address] [facility] Borrego PA [address] [place] [address] Annual physical exam (Primary Dx); HTN (hypertension), benign; Gastric carcinoma (CMS/HCC); Dyslipidemia; Moderate episode of recurrent major depressive disorder (CMS/HCC); BMI 25.0-25.9,adult Social History Tobacco Use Types Packs/Day Years [...] on file 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 Gender Identity Female 06/07/2020 8:39 AM CDT Sexual Orientation Not on file 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 Not on mikie e documented as of this encounter Last Filed Vital Signs Vital Sign Reading Time Taken Comments Blood Pressure 100/70 10/01/2020 1:45 PM OIL MIXER Pulse 71 10/01/2020 1:45 PM OIL MIXER Temperature 36.2 ??C (97.1 ??F) 10/01/2020 1:45 PM CS T Respiratory Rate - - Oxygen Saturation 98% 10/01/2020 1:45 PM OIL MIXER Inhaled Oxygen Concentration - - Weight 66.2 kg (145 lb 14.4 oz) 10/01/2020 1:45 PM OIL MIXER Height 162.6 cm (5' 4 ) 10/01/2020 1:45 PM OIL MIXER Body Mass Index 25.04 10/01/2020 1:45 PM OIL MIXER documented in this encounter Ordered Prescriptions Prescription Sig Dispense Quantity Refills Last Filled Start Date End Date valsartan-hydroCHL OROthiazide (DIOVAN-HCT) 80-12.5 mg per tabletIndications: hypertension Take 1 tablet by mouth daily 90 tablet 3 10/01/2020 1 pravastatin (PRAVACHOL) 40 mg tablet Take 1 tablet (40 mg total) by mouth every morning 90 tablet 3 10/01/2020 1 escitalopram (LEXAPRO) 10 mg tablet Take 1 tablet (10 mg total) by mouth every morning 90 tablet 3 10/01/2020 1 buPROPion XL (WELLBUTRIN XL) 150 mg 24 hr tabletIndications: Anxiety with Depression Take 1 tablet (150 mg total) by mouth every morning 90 tablet 3 10/01/2020 1 documented in this encounter Progress Notes * [facility] Borrego PA - 10/01/2020 1:45 PM CST Images from the original note were not included. Subjective/Objective Patient ID: Fabiola Gibson is a 55 y.o. female. Chief Complaint Follow-up HPI Patient presents for wellness exam and followup chronic concerns. Dr. Winters is doing EGD to recheck later this week ONC - still on sandostatin and pt states all is stable . Dr. Rodney - Left BBB -- all is stable and f.u 1 year. FLU - UTD Mamm - due--has order from 03/2020 Colonoscopy - 11/2018 COVID recovered. Doing well. Review of Systems Constitutional: Negative for fever. HENT: Negative for congestion. Respiratory: Negative for shortness of breath. Cardiovascular: Negative for chest pain. Gastrointestinal: Negative for constipation and diarrhea. Vitals: 10/01/20 1345 BP: 100/70 BP Location: Left arm Patient Position: Sitting Pulse: 71 Temp: 36.2 ??C (97.1 ??F) SpO2: 98% Weight: 66.2 kg (145 lb 14.4 oz) Height: 162.6 cm (5' 4 ) Physical Exam Vitals signs and nursing note reviewed. Constitutional: Appearance: She is well-developed. HENT: Head: Normocephalic and atraumatic. Eyes: Comments: Pupils are equal Cardiovascular: Rate and Rhythm: Normal rate and regular rhythm. Heart sounds: No murmur. Pulmonary: Effort: Pulmonary effort is normal. Breath [...] health. Reviewed immunizations Reviewed age appropirate screenings. HTN (hypertension), benign (I10) Assessment & Plan: Bp is stable/in acceptable range for any co-morbidities. Encouraged to limit sodium intake and exercise for weight control. Orders: - valsartan-hydroCHLOROthiazide (DIOVAN-HCT) 80-12.5 mg per tablet; Take 1 tablet by mouth daily Gastric carcinoma (CMS/HCC) (C16.9) Assessment & Plan: Continue per ONC. ON current therapy Dyslipidemia (E78.5) Assessment & Plan: Encouraged patient to follow fat/low chol diet like the Mediterranean diet. Increase good fats inthe diet. Increase exercise. Monitor labs as needed. Continue statin Moderate episode of recurrent major depressive disorder (CMS/HCC) (F33.1) Assessment & Plan: Stable with wellbutrin and lexapro BMI 25.0-25.9,adult (Z68.25) Assessment & Plan: Weight/BMI is in healthy range. Continue healthy lifestyle to maintain. Other orders - buPROPion XL (WELLBUTRIN XL) 150 mg 24 hr tablet; Take 1 tablet (150 mg total) by mouth every morning - escitalopram (LEXAPRO) 10 mg tablet; Take 1 tablet (10 mg total) by mouth every morning - pravastatin (PRAVACHOL) 40 mg tablet; Take 1 tablet (40 mg total) by mouth every morning [place] Borrego PA-C MIXER documented in this encounter Miscellaneous Notes * Assessment & Plan Note - [place] Borrego PA - 10/06/2020 9:42 PM OIL MIXER Associated Problem(s): Moderate episode of recurrent major depressive disorder (HCC) Stable with wellbutrin and lexapro MIXER * Assessment & Plan Note - [place] Borrego PA - 10/06/2020 9:42 PM OIL MIXER Associated Problem(s): Annual physical exam Encouraged healthy lifestyle, good nutrition and exercise. Encouraged Calcium and Vitamin D and weight bearing exercise for bone health. Reviewed immunizations Reviewed age appropirate screenings. MIXER * Assessment & Plan Note - [place] Borrego PA - 10/06/2020 9:41 PM OIL MIXER Associated Problem(s): Dyslipidemia (Resolved 09/23/2021) Encouraged patient to follow fat/low chol diet like the Mediterranean diet. Increase good fats inthe diet. Increase exercise. Monitor labs as needed. Continue statin MIXER * Assessment & Plan Note - [place] Borrego PA - 10/06/2020 9:41 PM OIL MIXER Associated Problem(s): Gastric carcinoma (HCC) Continue per ONC. ON current therapy MIXER * Assessment & Plan Note - [place] Borrego PA - 10/06/2020 9:40 PM OIL MIXER Associated Problem(s): HTN (hypertension), benign Bp is stable/in acceptable range for any co-morbidities. Encouraged to limit sodium intake and exercise for weight control. MIXER * Assessment & Plan Note - [place] Orta MA - 10/01/2020 1:47 PM OIL MIXER Associated Problem(s): BMI 26.0-26.9,adult (Resolved 10/29/2022) Weight/BMI is in healthy range. Continue healthy lifestyle to maintain. MIXER documented in this encounter Plan of Treatment Not on file documented as of this encounter Visit Diagnoses Diagnosis Annual physical exam- Primary Routine general medical examination at a health care facility HTN (hypertension), benign Essential hypertension, benign Gastric carcinoma (HCC) Malignant neoplasm of stomach, unspecified site Dyslipidemia Other and unspecified hyperlipidemia Moderate episode of recurrent major depressive disorder (HCC) BMI 25.0-25.9,adult documented in this encounter Discontinued Medications Medication Sig Discontinue Reason Start Date End Da te buPROPion XL (WELLBUTRIN XL) 150 mg 24 hr tabletIndications:Anxiet y with Depression Take 1 tablet (150 mg total) by mouth every morning Reorder 03/25/2020 10/01/2020 valsartan-hydroCHLOROthi azide (DIOVAN-HCT) 80-12.5 mg per tabletIndications:hypert ension TAKE 1 TABLET BY MOUTH DAILY Reorder 07/22/2020 10/01/2020 pravastatin (PRAVACHOL) 40 mg tablet TAKE 1 TABLET BY MOUTH IN THE MORNING Reorder 08/12/2020 10/01/2020 escitalopram (LEXAPRO) 10 mg tablet TAKE 1 TABLET BY MOUTH IN THE MORNING Reorder 08/12/2020 10/01/2020 documented as of this encounter Additional Health Concerns Infection Onset Date Last Indicated Resolved Time COVID: Recovered Comment:Added based on recent COVID infection. 08/21/2020 08/23/2020 12/19/2020 3:[address] documented as of this encounter Care Teams Head Animal Keeper Relationship Specialty Start Date End Date [facility] Borrego PA [address] [place] [address] PCP - General Internal Medicine 03/25/20 09/27/23 Luann Lawrence, ANUP Nurse Practitioner Nurse Practitioner 01/06/19 Adarsh Tuttle MD [address] [place] [address] Consulting Physician Gastroenterology 02/22/19 Sebastien Martinez DO [address] [facility] [place] [address] Medical Oncologist/Hollock Maker Hematology and Oncology 02/22/19 Guru Winters DO [address] [place], [place] [address] Consulting Physician Gastroenterology 02/22/19 Gato Abrams MD [address] [facility] [place] [address] Surgeon Surgical Oncology 09/07/19 documented as of this encounter
--- OUTSIDE RECORDS SUMMARY | 2024-10-04 03:03 | XMS_ITS | Encounter Summary ---
Author Organization [facility] Address [address] [place] [address] Care Team Providers Care Film Reproducer Name Role Phone Luann Lawrence NP Unavailable [phone] Adarsh Tuttle MD Unavailable Sebastien Martinez DO Unavailable Guru Winters DO Unavailable [phone] Gato Abrams MD Unavailable [facility] Borrego Primary Care Provider [phone] Encounter Details Date Type Department Care Team (Late st Contact Info) Description 08/07/[address] 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 High risk condition: Immunosuppression (e.g. bone marrow or ogan transplantation, poorly controlledHIV) ?? Date of symptom onset 08/06/2020 ?? Date testing requested: 08/08/2020 ?? Testing: COVID-RNA Flu A/B + RSV PCR Is this the first COVID-19 test for this patient? Yes ?? Does the patient currently work in a healthcare facility with direct patient contact? Yes ?? Is the patient a resident of a congregate care or living setting? No ?? Is the patient ? No ?? Please select the performing region: [facility] Covid Testing at [facility] Called the pt and left a VM with location and time documented in this encounter Miscellaneous Notes * Addendum Note - Amee Ag - 08/07/2020 11:31 AM CDTAddended by: AMEE AG on: 08/07/2020 06:58 PM Modules accepted: Orders documented in this encounter Plan of Treatment Not on file documented as of this encounter Results * (ABNORMAL) COVID-19 Coronavirus RNA Nasopharyngeal (08/07/2020 1:19 PM CDT) COVID-19 RNA Detected(Kira) [facility] Comment: Interpretive Data Testing performed at [facility] Molecular Infectious Disease Laboratory. The 2019-Novel Coronavirus Assay (COVID-19) Real Time RT-PCR assay is for in vitro diagnostic use under FDA emergency use authorization only. A negative RT-PCR result does not preclude infection with COVID-19 and should not be used as the sole basis for treatment or other patient management decisions. Additional sample types have been validated according to CLIA regulations. ?? Current Interpretive Data was last revised on 2020. First COVID-19 test? Yes [facility] Employeed in healthcare? Yes ANDREA ORNELAS status? No [facility] Group care resident? No ANDREA ORNELAS Hospitalized? Unknown [facility]REA ORNELAS Is patient in ICU? Unknown ANDRE[facility] ORNELAS Symptomatic as defined by CDC? Yes ANDREA ORNELAS Nasopharyngeal 08/07/2020 1: 19 PM CDT 08/08/2020 2:56 AM CDT Narrative [facility] ORNEL[facility] - 08/08/2020 4:47 PM CDT What is the reason for testing?->Symptoms compatible with COVID-19 in high-risk group (defined above in process inst.) Date of symptom onset->08/06/20 [facility] MICROBIOLOGY - GENERAL ORDERABLES Final Result [facility] [address] [facility] [place] [address] documented in this encounter Visit Diagnoses Diagnosis Exposure to SARS-associated coronavirus- Primary Exposure to SARS-associated coronavirus documented in this encounter Additional Health Concerns Infection Onset Date Last Indicated Resolved Time COVID: Suspected 08/07/2020 08/07/2020 08/08/2020 4:47 PM CDT documented as of this encounter Care Teams Film Reproducer Relationship Specialty Start Date End Date [facility] Borrego PA [address] [facility] [address] [address] [place] [address] PCP - General Internal Medicine 03/25/20 09/27/23 Luann Lawrence NP Nurse Practitioner Nurse Practitioner 01/06/19 Adarsh Tuttle MD [address] [facility] [address] [place] [address] Consulting Physician Gastroenterology 02/22/19 Sebastien Martinez DO [address] [address] Medical Oncologist/[employer] Specialist Hematology and Oncology 02/22/19 Guru Winters DO [address] [place] [address] Consulting Physician Gastroenterology 02/22/19 Gato Abrams MD [address] [place] [address] Surgeon Surgical Oncology 09/07/19 documented as of this encounter
--- OUTSIDE RECORDS SUMMARY | 2024-10-04 03:03 | XMS_ITS | Encounter Summary ---
Author Organization [facility] Healthcare Address [address] [place] [address] Care Team Providers Care Carriage Rider Name Role Phone Luann Lawrence NP Unavailable [phone] Adarsh Tuttle MD Unavailable [phone] Sebastien Martinez DO Unavailable [phone] Guru Winters DO Unavailable [phone] Gato Abrams MD Unavailable [phone] Elizabeth Borrego Primary Care Provider [phone] Encounter Details Date Type Department Care Team (Late st Contact Info) Description 08/07/2020 7:00 PM CDT Lab [address] [address] Exposure to SARS-associated coronavirus Social History Tobacco Use Types Packs/Day Years [...] on file Legal Sex Female 2:22 AM 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 ATTENDANT Gender Identity Female 06/07/2020 8:39 AM CDT Sexual Orientation Not on file 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 The 2019-Novel Coronavirus [...] revised on 2020. First COVID-19 test? Yes [facility] Employeed in healthcare? Yes [facility] status? No [facility] Group care resident? No [facility] Hospitalized? Unknown [facility] Is patient in ICU? Unknown [facility] Symptomatic as defined by CDC? Yes [facility] Nasopharyngeal 08/07/2020 1: 19 PM CDT 08/08/2020 2:56 AM CDT Narrative [facility] - 08/08/2020 4:47 PM CDT What is the reason for testing?->Symptoms compatible with COVID-19 in high-risk group (defined above in process inst.) Date of symptom onset->08/06/20 us Elizabeth ARANGO LAB MICROBIOLOGY - GENERAL ORDERABLES Final Result [facility] Department [place] [address] documented in this encounter Visit Diagnoses Diagnosis Exposure to SARS-associated coronavirus documented in this encounter Additional Health Concerns Infection Onset Date Last Indicated Resolved Time COVID: Suspected 08/07/2020 08/07/2020 08/08/2020 4:47 PM CDT documented as of this encounter Care Teams Carriage Rider Relationship Specialty Start Date End Date Elizabeth Borrego PA [address] [place], [place] [id number] PCP - General Internal Medicine 03/25/20 09/27/23 Luann Lawrence, ASSISTANT TENNIS PROFESSIONAL Nurse Practitioner Nurse Practitioner 01/06/19 Adarsh Tuttle MD [address] [place] [address] Consulting Physician Gastroenterology 02/22/19 Sebastien Martinez DO [address] [place] [address] Medical Oncologist/Radiation Control Specialist Hematology and Oncology 02/22/19 Guru Winters DO [facility] [address] Consulting Physician Gastroenterology 02/22/19 Gato Abrams MD [address] [place] [id number] Surgeon Surgical Oncology 09/07/19 documented as of this encounter
--- OUTSIDE RECORDS SUMMARY | 2024-10-04 03:03 | XMS_ITS | Encounter Summary ---
Author Organization [facility] Address [address] [facility] [address] [place] [address] Care Team Providers Care Research Lab Assistant Name Role Phone Luann Lawrence NP Unavailable [phone] Adarsh Tuttle MD Unavailable [phone] Sebastien Martinez DO Unavailable Guru Winters DO Unavailable [phone] Gato Abrams MD Unavailable Elizabeth Borrego Primary Care Provider [phone] Encounter Details Date Type Department Care Team (Late st Contact Info) Description 08/08/2020 Telephone [facility] Family Medicine [address] [place] [address] Elizabeth Borrego PA [address] [place] [address] Social History Tobacco Use Types [...] on file Legal Sex Female 2:22 AM WEIGHER AND GRADER Gender Identity Female 06/07/2020 8:39 AM CDT Sexual Orientation Not on file 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 Provider called her back to reassure her. * Telephone Encounter - Elizabeth Borrego PA - 08/08/2020 9:56 PM CDT Patient tested positive for COVID on 08/08. Please call and check on patient. documented in this encounter Plan of Treatment Not on file documented as of this encounter Visit Diagnoses Not on filedocumented in this encounter Additional Health Concerns Infection Onset Date Last Indicated Resolved Time COVID: Suspected 08/07/2020 08/07/2020 08/08/2020 4:47 PM CDT COVID19 08/07/2020 08/07/2020 08/21/2020 3:06 AM WEIGHER AND GRADER COVID: Recovered Comment:Added based on recent COVID infection. 08/21/2020 08/23/2020 12/19/2020 3:[address] documented as of this encounter Care Teams Research Lab Assistant Relationship Specialty Start Date End Date Elizabeth Borrego PA [address] [place] [address] PCP - General Internal Medicine 03/25/20 09/27/23 Luann Lawrence NP Nurse Practitioner Nurse Practitioner 01/06/19 Adarsh Tuttle MD [address] [place] [address] Consulting Physician Gastroenterology 02/22/19 [place] [address] [place] [address] Medical Oncologist/Missile Inspector Hematology and Oncology 02/22/19 Guru Winters DO [address] [place] [address] Consulting Physician Gastroenterology 02/22/19 Gato Abrams MD [address] [place] [address] Surgeon Surgical Oncology 09/07/19 documented as of this encounter
--- OUTSIDE RECORDS SUMMARY | 2024-10-04 03:03 | XMS_ITS | Encounter Summary ---
Author Organization [facility] Address [address] [place] [address] Phone Care Team Providers Care Paratransit Operator Name Role Phone MelindaLuann Aditya HEBERT Unavailable [phone] Adarsh Tuttle MD Unavailable [phone] Sebastien Martinez DO Unavailable [phone] Guru Winters DO Unavailable [phone] Gato Abrams MD Unavailable [phone] Elizabeth oBrrego Primary Care Provider [phone] Reason for Visit * Reason Comments Injections * Episode Based Medications (Routine) - Closed Specialty Diagnoses / Procedures Referred By Clemencia mendez Referred To Contact Oncology Diagnoses Malignant carcinoid tumor of stomach (HCC) Procedures [place] OCTREOTIDE INJECTION, DEPOT Sebastien Martinez, [address] [address] Phone: tel: fax: [facility] Oncology [address] [facility] [address] [place] [address] Phone: tel: fax: Referral ID Status Reason Start Date Expiration Date Visits Re quested Visits Authorized [id number] Closed 2022 02/19/2023 1 50 Encounter Details Date Type Department Care Team (Late st Contact Info) Description 09/23/2020 7:45 AM PAINT BOOTH OPERATOR Infusion [facility] Oncology [address] [facility] [address] [place] [address] Malignant carcinoid tumor of stomach [...] on file Legal Sex Female 2:22 AM PAINT BOOTH OPERATOR Gender Identity Female 06/07/2020 8:39 AM CDT Sexual Orientation Not on file 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 For IM intragluteal administration only- alternate gluteal sites. Shake.Indications:Malignant carcinoid tumor of stomach (HCC) Given 09/23/2020 8:08 AM PAINT BOOTH OPERATOR 20 mg Right Dorsogluteal/Butt ock documented in this encounter Orders Appointment Requests Count Last Ordered Date Fi rst Ordered Date ONCBCN INJECTION APPOINTMENT REQUEST 1 04/2020 documented in this encounter Additional Health Concerns Infection Onset Date Last Indicated Resolved Time COVID: Recovered Comment:Added based on recent COVID infection. 08/21/2020 08/23/2020 12/19/2020 3:[address] documented as of this encounter Care Teams Paratransit Operator Relationship Specialty Start Date End Date Elizabeth Borrego PA [address] [place] [address] PCP - General Internal Medicine 03/25/20 09/27/23 Luann Lawrence, ANUP Nurse Practitioner Nurse Practitioner 01/06/19 Adarsh Tuttle MD [address] [facility] [address] [place] [address] Consulting Physician Gastroenterology 02/22/19 Sebastien Martinez DO [address] [place] [address] Medical Oncologist/Machining Department Supervisor Hematology and Oncology 02/22/19 Guru Winters DO [address] [place] [address] Consulting Physician Gastroenterology 02/22/19 Gato Abrams MD [address] [place] [address] Surgeon Surgical Oncology 09/07/19 documented as of this encounter
--- OUTSIDE RECORDS SUMMARY | 2024-10-04 03:03 | XMS_ITS | Encounter Summary ---
Author Organization [facility] Address [address] [facility] [address] [place] [address] Care Team Providers Care Machinist Helper Name Role Phone Luann Lawrence NP Unavailable [phone] Adarsh Tuttle MD Unavailable [phone] Sebastien Martinez DO Unavailable [phone] Guru Winters DO Unavailable [phone] Gato Abrams MD Unavailable [phone] Elizabeth Borrego Primary Care Provider [phone] Reason for Visit * Reason Onset Date Comments Covid-19 Home Monitoring 08/16/2020 not enr oll, but has a question Encounter Details Date Type Department Care Team (Late st Contact Info) Description 08/16/2020 Telephone [facility] Accountable Care Organization [address] [place] [address] Marisol Monson RN [address] [place] [address] [address] [place] [address] Covid-19 Home Monitoring (not enroll, but has a question) Social History Tobacco Use Types Packs/Day Years [...] on file Legal Sex Female 2:22 AM 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 I recommended to stay isolated for the full 14 days. States that she is to have a call from the Health dept in a few days. Recommended to go by the Health Dept recommendations. Marisol Monson RN Care Manager [facility] ACO [phone] documented in this encounter Plan of Treatment Not on file documented as of this encounter Visit Diagnoses Not on filedocumented in this encounter Additional Health Concerns Infection Onset Date Last Indicated Resolved Time COVID19 08/07/2020 08/07/2020 08/21/2020 3:06 AM MARINE DIESEL TECHNICIAN documented as of this encounter Care Teams Machinist Helper Relationship Specialty Start Date End Date Elizabeth Borrego PA [address] [facility] [address] [place] [address] PCP - General Internal Medicine 03/25/20 09/27/23 Luann Lawrence NP Nurse Practitioner Nurse Practitioner 01/06/19 Adarsh Tuttle MD [address] [facility] [address] [place] [address] Consulting Physician Gastroenterology 02/22/19 Sebastien Martinez DO [address] [facility] [address] [place] [address] Medical Oncologist/Movie Star Hematology and Oncology 02/22/19 Guru Winters DO [address] [place] [address] Consulting Physician Gastroenterology 02/22/19 Gato Abrams MD [address] [place] [address] Surgeon Surgical Oncology 09/07/19 documented as of this encounter
--- OUTSIDE RECORDS SUMMARY | 2024-10-04 03:03 | XMS_ITS | Encounter Summary ---
Author Organization [facility] Address [address] [facility] [address] [place] [address] Care Team Providers Care Household Refrigerator Mechanic Name Role Phone Luann Lawrence NP Unavailable [phone] Adarsh Tuttle MD Unavailable [phone] Sebastien Martinez DO Unavailable [phone] Guru Winters DO Unavailable [phone] Gato Abrams MD Unavailable [phone] Elizabeth Borrego Primary Care Provider [phone] Reason for Visit * Reason Onset Date Comments Covid-19 Home Monitoring 08/11/2020 Enrollm ent call day 2 Encounter Details Date Type Department Care Team (Late st Contact Info) Description 08/11/2020 Telephone [facility] Accountable Care Organization [address] [place] [address] Ginger Kincaid MA [address] [place] [address] [facility] [address] [place] [address] Covid-19 Home Monitoring (Enrollment call day 2 ) Social History Tobacco Use Types Packs/Day [...] on file Legal Sex Female 2:22 AM FENCE SETTER Gender Identity Female 06/07/2020 8:39 AM CDT Sexual Orientation Not on file 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 The patientwas contacted via phone for enrollment in the program, but could not be reached to accept or decline Unable to reach patient. Patient will receive follow up call tomorrow Enrollment call day 3 due 08/12 documented in this encounter Plan of Treatment Not on file documented as of this encounter Visit Diagnoses Not on filedocumented in this encounter Additional Health Concerns Infection Onset Date Last Indicated Resolved Time COVID19 08/07/2020 08/07/2020 08/21/2020 3:06 AM FENCE SETTER documented as of this encounter Care Teams Household Refrigerator Mechanic Relationship Specialty Start Date End Date Elizabeth Borrego PA [address] [address] [place] [address] PCP - General Internal Medicine 03/25/20 09/27/23 Luann Lawrence NP Nurse Practitioner Nurse Practitioner 01/06/19 Adarsh Tuttle MD [address] [facility] [address] [place] [address] Consulting Physician Gastroenterology 02/22/19 Sebastien Martinez DO [address] [place] [address] Medical Oncologist/Oil Well Services Supervisor Hematology and Oncology 02/22/19 Guru Winters DO [address] [place] [address] Consulting Physician Gastroenterology 02/22/19 Gato Abrams MD [address] [address] Surgeon Surgical Oncology 09/07/19 documented as of this encounter
--- OUTSIDE RECORDS SUMMARY | 2024-10-04 03:03 | XMS_ITS | Encounter Summary ---
Author Organization [facility] Address [address] [place] [address] Phone Care Team Providers Care Relay Adjuster Name Role Phone Melinda Luann Burgess NP Unavailable [phone] Adarsh Tuttle MD Unavailable [phone] Sebastien Martinez DO Unavailable [phone] Guru Winters DO Unavailable [phone] Gato Abrams MD Unavailable [phone] Elizabeth Borrego Primary Care Provider [phone] Reason for Visit * Episode Based Medications (Routine) - Closed Specialty Diagnoses / Procedures Referred By Clemencia mendez Referred To Contact Oncology Diagnoses Malignant carcinoid tumor of stomach (HCC) Procedures [place] OCTREOTIDE INJECTION, DEPOT Sebastien Martinez, DO [facility] [address] Phone: tel: fax: [facility] Oncology [address] [facility] [address] [place] [phone] Phone: tel: fax: Referral ID Status Reason Start Date Expiration Date Visits Re quested Visits Authorized [id number] Closed 2022 02/19/2023 1 50 Encounter Details Date Type Department Care Team (Late st Contact Info) Description 08/26/2020 9:45 AM ROLL SCALE MAN Lab [facility] Oncology [address] [facility] [address] [place] [address] Malignant carcinoid tumor of stomach [...] on file Legal Sex Female 2:22 AM ROLL SCALE MAN Gender Identity Female 06/07/2020 8:39 AM CDT Sexual Orientation Not on file 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 08/21/2020 08/23/2020 12/19/2020 3:[address] documented as of this encounter Care Teams Relay Adjuster Relationship Specialty Start Date End Date Elizabeth Borrego PA [address] [facility] [address] [place] [address] PCP - General Internal Medicine 03/25/20 09/27/23 Luann Lawrence NP Nurse Practitioner Nurse Practitioner 01/06/19 Adarsh Tuttle MD [address] [facility] [address] [place] [address] Consulting Physician Gastroenterology 02/22/19 Sebastien Martinez DO [address] [place] [address] Medical Oncologist/Corporate Real Estate Specialist Hematology and Oncology 02/22/19 Guru Winters DO [address] [place] [address] Consulting Physician Gastroenterology 02/22/19 Gato Abrams MD [address] [place] [address] Surgeon Surgical Oncology 09/07/19 documented as of this encounter
--- OUTSIDE RECORDS SUMMARY | 2024-10-04 03:03 | XMS_ITS | Encounter Summary ---
Author Organization [facility] Address [address] [place] [address] Care Team Providers Care Budget Assistant Name Role Phone Luann Lawrence NP Unavailable [phone] Adarsh Tuttle MD Unavailable [phone] Sebastien Martinez DO Unavailable [phone] Guru Winters DO Unavailable [phone] Gato Abrams MD Unavailable [phone] Elizabeth Borrego Primary Care Provider [phone] Reason for Visit * Reason Comments LBBB 7 month f/u Encounter Details Date Type Department Care Team (Late st Contact Info) Description 10/01/2020 9:45 AM HEARING CONSULTANT Office Visit [facility] Cardiology [address] [place] [address] Rowdy Marroquin MD [address] [facility] [address] [place] [address] LBBB (left bundle branch block) (Primary Dx); HTN (hypertension), benign; Palpitations; 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; Dyslipidemia Social History Tobacco Use Types Packs/Day Years [...] on file Legal Sex Female 2:22 AM HEARING CONSULTANT Gender Identity Female 06/07/2020 8:39 AM CDT Sexual Orientation Not on file 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 Not on file Not on file Not on mikie e documented as of this encounter Last Filed Vital Signs Vital Sign Reading Time Taken Comments Blood Pressure 118/66 10/01/2020 9:49 AM HEARING CONSULTANT Pulse 62 10/01/2020 9:49 AM HEARING CONSULTANT Temperature - - Respiratory Rate - - Oxygen Saturation 97% 10/01/2020 9:49 AM HEARING CONSULTANT Inhaled Oxygen Concentration - - Weight 66.3 kg (146 lb 1.6 oz) 10/01/2020 9:49 A M HEARING CONSULTANT Height 162.6 cm (5' 4 ) 10/01/2020 9:49 AM HEARING CONSULTANT Body Mass Index 25.08 10/01/2020 9:49 AM HEARING CONSULTANT documented in this encounter Progress Notes * Rowdy Marroquin MD - 10/01/2020 9:45 AM CST [facility] DATE OF VISIT: 10/01/2020 CHIEF COMPLAINT Chief Complaint Patient presents with ??? 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 Left bundle-branch block chronicity unknown. Discussed how the finding of left bundle-branch block is pathologic. Discussed potential contributions, implications, and need for further workup and monitoring. 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 Context is important, no h/o embolic events/CVA. Clinical observation for now. ?? 2. BP marginally controlled. Monitor BP on routine basis. Call with readings. Continue consistent cardiovascular exercise, weight loss, medication compliance, and low-sodium diet. ?? 3. Lipids personally reviewed from 12/09/19 LDL 70, well controlled. Continue statin therapy and lifestyle modification. ?? 4. Lifestyle modification counseling performed. Weight loss, exercise, reduction in caloric intake. ?? 5. Follow-up with GI with regards to observation/management for history of gastric carcinoid ?? 6. Follow up with Dr. Martinez as scheduled. Twelve lead EKG next visit. Over 50% of this visit counseling LBBB, HTN, lipids, medications, lifestyle modification. Follow up in the office in 1 year or sooner as needed. Thank you for allowing me the privilege of participating in the care this very pleasant patient. Please do not hesitate to contact me with any additional questions or concerns. DANNY Gibson is a 55 y.o. female with a PMHx of hypertension, [...] upper endoscopy. She underwent partial gastrectomy at [place] without complication. She states over 20 years ago she had seen a spray cementer after being told she had an irregular heartbeat for which she wore a Holter monitor and wasplaced on atenolol. She took this medication for several years but does not recall a specific diagnosis. She admits she did not follow-up with a spray cementer after seeing him initially. She has now [...] CT spot on pancreas, PET scan at [place] for clarification and if present further workup and possible biopsy. Still feeling well no CP or SOB, no new limitations. Echo done at [facility] 02/21/20 EF 60-65% Lambl's excresence noted on [...] pancreatic mass, doing ok otherwise for now. MEDICAL HISTORY Past Medical History: Diagnosis Date ??? Anemia ??? Cancer (CMS/HCC) ??? Carcinoid tumor of stomach ??? Chronic diarrhea ??? Depression ??? Heart murmur ??? Hyperlipidemia ??? Hypertension ??? Left bundle branch block ??? Rheumatoid arthritis (CMS/HCC) ??? Urinary tract infection Social History Tobacco Use ??? Smoking status: Former Smoker Packs/day: 1.00 Years: 2.00 Pack years: 2.00 Types: Cigarettes Start date: 1996 Quit date: 1998 Years since quittin.9 ??? Smokeless tobacco: Never Used Substance Use Topics ??? Alcohol use: Yes Alcohol/week: 2.0 - 3.0 standard drinks Types: 2 - 3 Cans of beer per week ??? Drug use: Never Family History Problem Relation Age of Onset ??? Dementia Mother ??? Coronary artery disease Mother s/p CABG ??? Emphysema Father ??? Heart failure Father ??? Other (Congestive Heart Failure) Father ??? No Known Problems Sister ??? Heart attack Brother ??? Ovarian cancer Mother's Sister ??? Colon cancer Mother's Brother ??? Cancer Maternal Grandmother ??? Anesthesia problems Neg Hx MEDICATIONS HOME MEDICATIONS : ALPRAZolam (XANAX) 0.25 mg tablet buPROPion XL (WELLBUTRIN XL) 150 mg 24 hr tablet cholecalciferol (VITAMIN D3) 1,000 unit capsule cyanocobalamin (Vitamin B-12) 1,000 mcg/mL injection escitalopram (LEXAPRO) 10 mg tablet hydroxychloroquine (PLAQUENIL) 200 mg tablet Insulin Syringe MicroFine 1/2 mL 28 gauge x 1/2 syringe insulin syringe-needle U-100 1 mL 29 gauge x 1/2 syringe multivitamin capsule octreotide LAR (SandoSTATIN LAR) 20 mg suspension,extended rel recon pravastatin (PRAVACHOL) 40 mg tablet valsartan-hydroCHLOROthiazide (DIOVAN-HCT) 80-12.5 mg per tablet ALLERGIES No Known Allergies REVIEW OF SYSTEMS Review of Systems Constitution: Negative for decreased appetite, diaphoresis, fever, malaise/fatigue, night sweats, weight gain and weight loss. HENT: Negative for [...] for environmental allergies. PHYSICAL EXAM Vitals BP 118/66 (BP Location: Left arm, Patient Position: Sitting) Pulse 62 Ht 162.6 cm (5' 4 ) Wt 66.3 kg (146 lb 1.6 oz) SpO2 97% BMI 25.08 kg/m?? Weight: 66.3 kg (146 lb 1.6 oz) Height: 162.6 cm (5' 4 ) Body mass index is 25.08 kg/m??. Physical Exam Constitutional: She is oriented to person, place, and time. She appears well- developed and well-nourished. She is cooperative. No distress. HENT: Head: Normocephalic and atraumatic. Right Ear: External ear normal. Left Ear: External ear normal. Nose: Nose normal. Mouth/Throat: Oropharynx is clear and moist and mucous membranes are normal. Normal dentition. Eyes: Conjunctivae, EOM and lids are normal. No scleral icterus. Neck: Normal range of motion. Neck supple. Normal carotid pulses, no hepatojugular reflux and no JVD present. Carotid bruit is not present. No tracheal deviation present. No thyromegaly present. Cardiovascular: Normal rate, regular rhythm, S1 normal, S2 normal, normal heart sounds, intact distal pulses and normal pulses. Exam reveals no gallop, no S3, no S4, no distant heart sounds and no friction rub. No murmur heard. Pulmonary/Chest: Effort normal and breath sounds normal. No respiratory distress. She has no wheezes. She has no rales. She exhibits no tenderness. Abdominal: Soft. Bowel sounds are normal. She exhibits no distension and no mass. There is no abdominal tenderness. There is no rebound and no guarding. Musculoskeletal: Normal range of motion. General: No tenderness, deformity or edema. Lymphadenopathy: She has no cervical adenopathy. Neurological: She is alert and oriented to person, place, and time. No cranial nerve deficit. She exhibits normal muscle tone. Coordination normal. Skin: Skin is warm and dry. No ecchymosis, no petechiae and no rash noted. She is not diaphoretic. No cyanosis or erythema. No pallor. Nails show no clubbing. Psychiatric: She has a normal mood and affect. Her speech is normal and behavior is normal. Judgment normal. LABS AND OTHER DIAGNOSTIC TESTS Lab Results Component Value Date WBC 3.9 08/26/2020 HGB 12.8 08/26/2020 HCT 37.9 08/26/2020 CREATININE 0.6 08/26/2020 POTASSIUM 3.8 08/26/2020 BUNSER 14 05/13/2020 Results for orders placed or performed in visit on 08/07/20 COVID-19 Coronavirus RNA Nasopharyngeal Specimen: Nasopharyngeal Result Value Ref Range COVID-19 RNA Detected (A) First COVID-19 test? Yes Employeed in healthcare? Yes status? No Group care resident? No Hospitalized? Unknown Is patient in ICU? Unknown Symptomatic as defined by CDC? Yes Personally reviewed EKG, electronic medical record, and bloodwork/lipids. Antonia Marroquin MD, [facility] This note is dictated and transcribed using [employer] Direct Software. Rn Staffing variancesmay occur. Despite proofreading, typographical errors may occur. 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 08/21/2020 08/23/2020 12/19/2020 3:[address] documented as of this encounter Care Teams Budget Assistant Relationship Specialty Start Date End Date Elizabeth Borrego PA [address] [place] [address] PCP - General Internal Medicine 03/25/20 09/27/23 Luann Lawrence, ANUP Nurse Practitioner Nurse Practitioner 01/06/19 Adarsh Tuttle MD [address] [address] [place] [address] Consulting Physician Gastroenterology 02/22/19 Sebastien Martinez DO [address] [address] [place] [address] Medical Oncologist/Sawyer Helper Hematology and Oncology 02/22/19 Guru Winters DO [address] [address] Consulting Physician Gastroenterology 02/22/19 Gato Abrams MD [address] [place] [id number] Surgeon Surgical Oncology 09/07/19 documented as of this encounter
--- OUTSIDE RECORDS SUMMARY | 2024-10-04 03:03 | XMS_ITS | Encounter Summary ---
Author Organization [facility] Address [address] [place] [address] Phone Care Team Providers Care Regional Economic Liaison Name Role Phone MelindaLuann oh Aditya HEBERT Unavailable [phone] Adarsh Tuttle MD Unavailable [phone] Vick Martinez DO Unavailable [phone] Guru Winters DO Unavailable [phone] Gato Abrams MD Unavailable [phone] Elizabeth Borrego Primary Care Provider [phone] Reason for Referral * MRI/CAT/PET Scan (Routine) - Closed Specialty Diagnoses / Procedures Referred By Clemencia mendez Referred To Contact Radiology Diagnoses Malignant carcinoid tumor of stomach (HCC) Procedures CT abdomen with & without contrast Vick Martinez DO [address] [address] Phone: tel: fax: [address] [address] Referral ID Status Reason Start Date Expiration Date Visits Re quested Visits Authorized [id number] Closed 08/30/2020 09/29/2021 1 1 TER SCHOOL EXECUTIVE DIRECTOR Reason for Visit * Reason Comments Follow-up Encounter Details Date Type Department Care Team ([facility] st Contact Info) Description 08/30/2020 8:45 AM CHARTER SCHOOL EXECUTIVE DIRECTOR Office Visit [facility] Oncology [address] [facility] [address] [place] [address] Vick Martinez DO [address] [address] 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); Iron deficiency anemia due to chronic blood loss Social History Tobacco Use Types Packs/Day Years [...] on file Legal Sex Female 2:22 AM CHARTER SCHOOL EXECUTIVE DIRECTOR Gender Identity Female 06/07/2020 8:39 AM CDT Sexual Orientation Not on file 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 Not on file Not on mikie e documented as of this encounter Last Filed Vital Signs Vital Sign Reading Time Taken Comments Blood Pressure 127/72 08/30/2020 8:47 AM CHARTER SCHOOL EXECUTIVE DIRECTOR Pulse 60 08/30/2020 8:47 AM CHARTER SCHOOL EXECUTIVE DIRECTOR Temperature - - Respiratory Rate - - Oxygen Saturation 96% 08/30/2020 8:47 AM CHARTER SCHOOL EXECUTIVE DIRECTOR Inhaled Oxygen Concentration - - Weight 67.6 kg (149 lb) 08/30/2020 8:47 AM CHARTER SCHOOL EXECUTIVE DIRECTOR Height 162.6 cm (5' 4.02 ) 08/30/2020 8:47 AM CS T Body Mass Index 25.56 08/30/2020 8:47 AM CHARTER SCHOOL EXECUTIVE DIRECTOR documented in this encounter Progress Notes * Vick Martinez DO - 08/30/2020 8:45 AM CST Patient ID: Fabiola Gibson is [...] the patient back in 3 months. 4. Prior to next visit, I will repeat CT scan of the abdomen with contrast. 5. I will refer her back to Dr. Guru Winters for repeat EGD in evaluating her stomach and small bowel for any recurrent carcinoid tumors. 6. Regarding her intermittent diarrhea, I recommend cbos-inm-apexola medications. Patient Active Problem List Diagnosis ??? Malignant carcinoid tumor of stomach (CMS/HCC) ??? Carcinoid tumor of stomach ??? Pernicious anemia ??? Gastric carcinoma (CMS/HCC) ??? Iron deficiency anemia due to chronic blood loss ??? HTN (hypertension), benign ??? Dyslipidemia ??? LBBB (left bundle branch block) ??? Palpitations ??? Premature atrial contractions ??? 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 BMI 27.0-27.9,adult ??? Annual physical exam ??? Other fatigue ??? Breast cancer screening by mammogram ??? Gastroesophageal reflux disease without esophagitis ??? Erosive osteoarthritis ??? Moderate episode of recurrent major depressive disorder (CMS/HCC) ??? Submucosal lesion of stomach ??? Fever ??? COVID-19 Diagnoses and all orders for this visit: Malignant carcinoid tumor of stomach (CMS/HCC) (Primary) - Clinic Appointment Request Follow up; VICK MARTINEZ MD; Clinic Appointment Location: [facility] IM [facility] - CT abdomen with & without contrast; Future - Injection Appointment Request Is this the patient's first treatment? No; What is your ordering location? [facility]/Hem/BMT; Where will this patient receive treatment? [facility] Future - Injection Appointment Request Is this the patient's first treatment? No; What is your ordering location? [facility] IM [facility]c/Hem/BMT; Where will this patient receive [...] patient receive treatment? [facility]; Future - CBC with auto differential; Future - Comprehensive metabolic panel; Future - Clinic Appointment Request Follow up; VICK MARTINEZ; Clinic Appointment Location: [facility]; Future - Ambulatory referral to Gastroenterology; Future Iron deficiency anemia due to chronic blood loss - Clinic Appointment Request Follow up; VICK MARTINEZ MD; Clinic Appointment Location: [facility] Subjective Interval History: Stage I carcinoid tumor [...] was then referred to Dr. Tuttle at [facility] for EUS evaluation. Thiswas performed on [...] Gato Abrams in Surgical Oncology Department at [facility]. 8. On February 24, 2019, [...] A in May was better but still . 12. In May of 2019, we had [...] nodes were removed without any abnormality. 14. Recently, she underwent ventral herniorrhaphy repair this past [address] scan of the abdomen pelvis performed in February showed a new 6 mm hyperenhancing lesion of the uncinate process of the pancreas. This was in a different location than the prior hyperenhancing lesion noted on scans last year. 16. After consultation with Dr. Abrams, we decided to proceed with medical therapy using [id number] mg IM every 4 weeks. She has received 2 doses of this medication. She did have diarrhea after the 1st injection but this has resolved after the 2nd injection. 17. Dr. Brown in Interventional Gastroenterology Department performed an EGD and EUS this past week revealing no significant abnormalities of the stomach outside of a benign gastric polyp along with normal appearance of the body and tail the pancreas. Unfortunately, based on prior partial gastrectomy surgery, he was unable to visualize the head or the uncinate process of the pancreas. 18. Since last visit, she has seen Dr. Abrams this past week with repeat CT imaging. CT imaging shows stability of the 6 mm tumor of the uncinate process of the pancreas. 19. Last month she did develop mild case of COVID-19 but this resolved completely. 20. Over the past month or so, she does have intermittent diarrhea that resembles steatorrhea but easily controlled with diet and hwpz-yxu-cgjjknf medications. Occasionally she has some shaking feeling that resolved when she eats something sweet. Interval Notes: I have reviewed: allergies, current medications, past family history, past medical history, past social history, past surgical history and problem list HPI Review of Systems Constitutional: Negative. Negative for appetite change and chills. HENT: Negative. Eyes: Negative. Respiratory: Negative. Cardiovascular: Negative. Gastrointestinal: Positive for diarrhea. Endocrine: Negative. Genitourinary: Negative. Skin: Negative. Neurological: Positive for extremity weakness and light-headedness. Hematological: Negative. Psychiatric/Behavioral: Negative. Pain: negative. Objective Physical Exam: Vital Signs for this encounter: BSA: 1.75 meters squared BP 127/72 (BP Location: Left arm) Pulse 60 Ht 162.6 cm (5' 4.02 ) Wt 67.6 kg (149 lb) SpO2 96% BMI 25.56 kg/m?? Physical Exam Constitutional: Appearance: She is [...] Results: WBC Date Value Ref Range Status 08/26/2020 3.9 3.8 - 9.9 X10 3/ul Final 05/13/2020 5.7 3.8 - 9.9 K/cumm Final Hgb Date Value Ref Range Status 05/13/2020 11.0 (L) 11.9 - 15.5 g/dL Final Hemoglobin Date Value Ref Range Status 08/26/2020 12.8 11.9 - 15.5 g/dL Final Hct Date Value Ref Range Status 08/26/2020 37.9 35.6 - 45.5 % Final 05/13/2020 32.8 (L) 35.6 - 45.5 % Final Plt Date Value Ref Range Status 05/13/2020 216 150 - 400 K/cumm Final Plt Count Date Value Ref Range Status 08/26/2020 275 150 - 400 x10 3/ul Final Creatinine Date Value Ref Range Status 08/26/2020 0.6 0.5 - 1.1 mg/dL Final Comment: NOTE: Estimated GFR (Cockroft-Gault) will NOT be calculated unless patient Height and Weight were entered. Also, Kidney Disease Stage (GFR) and Estimated GFR (Cockroft-Gault) will NOT be calculated if Creatinine result is <0.2. 05/13/2020 0.82 0.60 - 1.10 mg/dL Final AST Date Value Ref Range Status 08/26/2020 26 0 - 32 U/L Final 08/24/2019 38 [...] recurrent or metastatic disease within the abdomen. TER SCHOOL EXECUTIVE DIRECTOR documented in this encounter Plan of Treatment Not on file documented as of this encounter Procedures Procedure Name Priority Date/Time Associated Diagnosis Comments CBC WITH AUTO DIFFERENTIAL STAT 11/18/2020 7:55 AM CHARTER SCHOOL EXECUTIVE DIRECTOR Malignant carcinoid tumor of stomach (CMS/HCC) COMPREHENSIVE METABOLIC PANEL Routine 11/18/2020 7:55 AM CHARTER SCHOOL EXECUTIVE DIRECTOR Malignant carcinoid tumor of stomach (CMS/HCC) documented in this encounter Results * CT abdomen with & without contrast (11/25/2020 11:40 AM CHARTER SCHOOL EXECUTIVE DIRECTOR) Anatomical Region Laterality Modality Body N/A Computed Tomogra phy 11/25/2020 11:5 2 AM CHARTER SCHOOL EXECUTIVE DIRECTOR Impressions 11/25/2020 11:52 AM CHARTER SCHOOL EXECUTIVE DIRECTOR 1. Stable 6 mm arterially hyperenhancing pancreatic uncinate process lesion, most consistent with a well-differentiated neuroendocrine tumor. 2. Stable postoperative changes of distal gastrectomy and Billroth II gastrojejunostomy without CT evidence of recurrent or metastatic disease in the abdomen. Electronically signed by: Aydin Hahn M.D. Narrative 11/25/2020 11:52 AM CHARTER SCHOOL EXECUTIVE DIRECTOR EXAMINATION: ??Computed tomography of the abdomen with [...] abdomen. Electronically signed by: Aydin Hahn M.D. us Vick Troncosonti DO IMG CT PROCEDURES Final Resu lt * (ABNORMAL) Comprehensive metabolic panel (11/18/2020 7:55 AM CHARTER SCHOOL EXECUTIVE DIRECTOR) Sodium 139 135 - 145 mmol/L [facility] Potassium 4.2 3.3 - 5.1 mmol/L [facility] Chloride 102 96 - 108 mmol/L [facility] Carbon Dioxide 30 22 - 32 mmol/L [facility] Anion Gap 7 7 - 16 [facility] Glucose 126(H) 70 - 100 mg/dL [facility] BUN 10 8 - 25 mg/dL [facility] Creatinine 0.7 0.5 - 1.1 mg/dL [facility] Comment: NOTE: Estimated GFR (Cockroft-Gault) will NOT be calculated unless patient Height and Weight were entered. Also, Kidney Disease Stage (GFR) and Estimated GFR (Cockroft-Gault) will NOT be calculated if Creatinine result is <0.2. Kidney Disease Stage >90 mL/MIN [facility] Comment: NOTE; ??The GFR is an estimated [...] ? Kidney failure or on dialysis Calcium 9.7 8.6 - 10.3 mg/dL [facility] Total Protein 7.2 6.4 - 8.3 g/dL [facility] Albumin 4.5 3.5 - 5.0 g/dL [facility] Globulin 2.7 2.3 - 3.5 gm/dL [facility] Albumin/Globulin Ratio 1.7 1.1 - 1.8 [facility] Total Bilirubin 0.4 0.0 - 1.2 mg/dL [facility] AST 21 0 - 32 U/L [facility] ALT 17 0 - 33 U/L [facility] Alkaline Phosphatase 60 35 - 104 U/L [facility] Blood specimen (specimen) 11/18/2020 7:55 AM CHARTER SCHOOL EXECUTIVE DIRECTOR 11/18/2020 8:00 AM CHARTER SCHOOL EXECUTIVE DIRECTOR Narrative Resulting Agency Comment RCR us Vick Martinez DO LAB BLOOD ORDERABLES Final R esult [address] [address] * (ABNORMAL) CBC with auto differential (11/18/2020 7:55 AM CHARTER SCHOOL EXECUTIVE DIRECTOR) WBC 3.5(L) 3.8 - 9.9 X10 3/ul [facility] RBC 4.22 3.90 - 5.20 x10 6/ul [facility] Hemoglobin 12.4 11.9 - 15.5 g/dL [facility] Hct 36.8 35.6 - 45.5 % [facility] MCV 87.2 81.3 - 96.4 fl [facility] MCH 29.4 27.1 - 33.3 pg [facility] MCHC 33.7 32.3 - 35.7 g/dl [facility] RDW 11.9 11.1 - 14.9 % [facility] Plt Count 229 150 - 400 x10 3/ul [facility] MPV 9.7 9.1 - 12.3 fl [facility] Neut % 52.8 % [facility] Immature Gran % 0.3 % [facility] Lymph % 33.7 % [facility] Acadia % 6.6 % [facility] Eos % 5.2 % [facility] AUTO BASO % 1.4 % [facility] NEUTROPHIL ABS # 1.8 1.7 - 6.5 x10 3/ul [facility] Immature Gran # 0.0 0.0 - 0.1 x10 3/ul [facility] Absolute Lymphs (auto) 1.2 0.8 - 3.3 x10 3/ul [facility] Absolute Monos (auto) 0.2 0.2 - 0.8 x10 3/ul [facility] Absolute Eos (auto) 0.2 0.0 - 0.5 x10 3/ul [facility] BASOPHIL ABS # 0.1 0.0 - 0.1 x10 3/ul [facility] Nucleat RBC Rel Count 0.0 #/100WBC [facility] NRBC abs 0.00 0.00 - 0.01 x10 3/ul [facility] Absolute Neutrophils 1,800 200 - 8,000 /ul [facility] Blood specimen (specimen) 11/18/2020 7:55 AM CHARTER SCHOOL EXECUTIVE DIRECTOR 11/18/2020 8:00 AM CHARTER SCHOOL EXECUTIVE DIRECTOR Narrative Resulting Agency Comment RCR Vick Martinez DO LAB BLOOD ORDERABLES Final R esult [facility] [address] [place] [address] documented in this encounter Visit Diagnoses Diagnosis Malignant carcinoid tumor of stomach (HCC)- Primary Malignant carcinoid tumor of the stomach Iron deficiency anemia due to chronic blood loss Iron deficiency anemia secondary to blood loss (chronic) Malignant carcinoid tumor of stomach (HCC) Malignant carcinoid tumor of the stomach documented in this encounter Discontinued Medications Medication Sig Discontinue Reason Start Date End Da te albuterol HFA (ProAir HFA) 90 mcg/actuation inhaler Inhale 2 puffs every 4 (four) hours as needed for wheezing or shortness of breath 08/09/2020 08/30/2020 documented as of this encounter Historical Medications * This list may reflect changes made after this encounter. Medication Sig Dispense Quantity Refills Last Filled Start D ate End Date Insulin Syringe MicroFine 1/2 mL 28 gauge x / syringe 08/26/202003/19 added in this encounter Orders Appointment Requests Count Last Ordered Date Fi rst Ordered Date ONCBCN CLINIC APPOINTMENT REQUEST 2 021 08/30/2020 ONCBCN INJECTION APPOINTMENT REQUEST 3 10/202009/23/2020 ONCBCN LAB APPOINTMENT 1 11/18/2020 documented in this encounter Additional Health Concerns Infection Onset Date Last Indicated Resolved Time COVID: Recovered Comment:Added based on recent COVID infection. 08/21/2020 08/23/2020 12/19/2020 3:[address] documented as of this encounter Care Teams Regional Economic Liaison Relationship Specialty Start Date End Date Elizabeth Borrego PA [address] [facility] [address] [place] [address] PCP - General Internal Medicine 03/25/20 09/27/23 Luann Lawrence, ANUP Nurse Practitioner Nurse Practitioner 01/06/19 Adarsh Tuttle MD [address] [facility] [address] [place] [address] Consulting Physician Gastroenterology 02/22/19 Vick Martinez DO [address] [id number] Medical Oncologist/Lacquer Mixer Hematology and Oncology 02/22/19 Guru Winters DO [address] [address] Consulting Physician Gastroenterology 02/22/19 Gato Abrams MD [address] [place] [address] Surgeon Surgical Oncology 09/07/19 documented as of this encounter
--- OUTSIDE RECORDS SUMMARY | 2024-10-04 03:03 | XMS_ITS | Encounter Summary ---
Author Organization [facility] Address [address] [facility] [address] [place] [address] Phone Care Team Providers Care Recordist Name Role Phone Luann Lawrence ANUP Unavailable [phone] Adarsh Tuttle MD Unavailable [phone] Sebastien Martinez DO Unavailable [phone] Guru Winters DO Unavailable [phone] Gato Abrams MD Unavailable Elizabeth Borrego Primary Care Provider [phone] Reason for Visit * Reason Comments Return Patient Encounter Details Date Type Department Care Team (Late st Contact Info) Description 08/26/2020 1:00 PM HOCKEY PLAYER Office Visit [facility] Surgery [address] [facility] [address] [place] [address] [place] [address] Gato Abrams MD [address] [facility] [id number] [place] [address] Malignant carcinoid tumor of stomach (CMS/HCC) (Primary [...] on file Legal Sex Female 2:22 AM HOCKEY PLAYER Gender Identity Female 06/07/2020 8:39 AM CDT Sexual Orientation Not on file 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 Gato Abrams M.D., F.A.C.S. Chief, Section of Surgical Oncology meat counter worker [facility] Smai Sandoval [facility] Cancer [facility] - voice - fax USPS Mailing Address: Overnight Mailing Address: [address] [place] [address] [place] [address], [address] [place], [place] [address] [place], [place] [address] FOLLOW-UP VISIT DATE OF VISIT: 08/26/20 REASON FOR VISIT: Ms. Gibson presents today [...] been doing well. She had COVID 19 ~3 weeks ago. She had low grade fevers and flu like symptoms. She is recovering and states her senseof taste and smell are coming back. She denies abdominal pain, nausea or vomiting. Her urine and bowel function are normal. Her weight has been stable. She had her incisional hernia repaired by Dr. Rosales in April, and has recovered well. 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 Ms. Gibson underwent a pancreas-protocol CT scan today, which I ordered and have personally reviewed, demonstrating a stable 6 mm lesion in the head of the pancreas. No other or new lesions. PHYSICAL EXAMINATION: VITAL SIGNS: There were no [...] have a repeat endoscopy in the next 3 months for continued endoscopic surveillance of her stomach for new carcinoid tumors, which can be arranged with Dr. Tuttle or Singh. I answered all of Ms. Gibson's questions to her satisfaction. Gato Abrams M.D., F.A.C.S. Chief, Section of Surgical Oncology meat counter worker CC: Patient Care Team: Elizabeth Borrego PA as PCP - General (Internal Medicine) Luann Lawrence, ANUP as Nurse Practitioner (Nurse Practitioner) Adarsh Tuttle MD as Consulting Physician (Gastroenterology) Sebastien Martinez DO as Medical Oncologist/Doctor Assistant (Hematology and Oncology) Guru Winters DO as Consulting Physician (Gastroenterology) Gato Abrams MD as Surgeon (Surgical Oncology) High Worker completed by [employer]. High Worker variances may occur. EY PLAYER documented in this encounter Plan of Treatment [...] documented as of this encounter Care Teams Recordist Relationship Specialty Start Date End Date Elizabeth Borrego PA [address] [facility] [address] [place], [place] [id number] PCP - General Internal Medicine 03/25/20 09/27/23 Luann Lawrence, ANUP Nurse Practitioner Nurse Practitioner 01/06/19 Adarsh Tuttle MD [address] [facility] [address] [place] [address] Consulting Physician Gastroenterology 02/22/19 Sebastien Martinez DO [facility] [facility] [address] [place] [address] Medical Oncologist/Doctor Assistant Hematology and Oncology 02/22/19 Guru Winters DO [facility] [address] Consulting Physician Gastroenterology 02/22/19 Gato Abrams MD [facility] [address] Surgeon Surgical Oncology 09/07/19 documented as of this encounter
--- OUTSIDE RECORDS SUMMARY | 2024-10-04 03:03 | XMS_ITS | Encounter Summary ---
Author Organization [facility] Address [address] [place] [address] Phone Care Team Providers Care Driller'S Offsider Name Role Phone MelindaLuann oh ANUP Unavailable [phone] Adarsh Tuttle MD Unavailable [phone] Sebastien Martinez DO Unavailable [phone] Guru Winters DO Unavailable [phone] Gato Abrams MD Unavailable [phone] Elizabeth Borrego Primary Care Provider [phone] Reason for Referral * Diagnostic Imaging (Routine) - Closed Specialty Diagnoses / Procedures Referred By Contjimmy mendez Referred To Contact Radiology Diagnoses Malignant carcinoid tumor of stomach (HCC) Procedures CT Abdomen Pelvis W WO Contrast Gato Abrams MD [facility] [address] Phone: tel: fax: [address] [address] Referral ID Status Reason Start Date Expiration Date Visits Re quested Visits Authorized [id number] Closed 08/27/2020 09/26/2021 1 1 OR ANDROID SOFTWARE ENGINEER Encounter Details Date Type Department Care Team (Late st Contact Info) Description 08/27/2020 Orders Only [facility] Surgery [address] [place] [address] [place] [address] Gato Abrams MD [address] [phone] [place] [address] Malignant carcinoid tumor of stomach (CMS/HCC) (Primary [...] file Legal Sex Female 2:22 AM SENIOR ANDROID SOFTWARE ENGINEER Gender Identity Female 06/07/2020 8:39 AM CDT Sexual Orientation Not on file 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 Gato Abrams MD IMG CT PROCEDURES [...] documented as of this encounter Care Teams Driller'S Offsider Relationship Specialty Start Date End Date Elizabeth Borrego PA [address] [place] [address] PCP - General Internal Medicine 03/25/20 09/27/23 Luann Lawrence NP Nurse Practitioner Nurse Practitioner 01/06/19 Adarsh Tuttle MD [address] [place] [address] Consulting Physician Gastroenterology 02/22/19 Sebastien Martinez DO [address] [place] [id number] Medical Oncologist/Meat Processing Center Manager Hematology and Oncology 02/22/19 Guru Winters DO [address] [place] [address] Consulting Physician Gastroenterology 02/22/19 Gato Abrams MD [address] [place] [address] Surgeon Surgical Oncology 09/07/19 documented as of this encounter
--- OUTSIDE RECORDS SUMMARY | 2024-10-04 03:03 | XMS_ITS | Encounter Summary ---
Author Organization [facility] Address [address] [place] [address] Phone Care Team Providers Care Miller Distillery Name Role Phone Melinda Luann Burgess NP Unavailable [phone] Adrash Tuttle MD Unavailable [phone] Sebastien Martinez DO Unavailable [phone] Guru Winters DO Unavailable [phone] Gato Abrams MD Unavailable [phone] Elizabeth Borrego Primary Care Provider [phone] Reason for Visit * Episode Based Medications (Routine) - Closed Specialty Diagnoses / Procedures Referred By Clemencia mendez Referred To Contact Oncology Diagnoses Malignant carcinoid tumor of stomach (HCC) Procedures [place] OCTREOTIDE INJECTION, DEPOT Sebastien Martinez, DO [facility] [address] Phone: tel: fax: [facility] Oncology [address] [facility] [address] [place] [address] Phone: tel: fax: Referral ID Status Reason Start Date Expiration Date Visits Re quested Visits Authorized [id number] Closed 2022 02/19/2023 1 50 Encounter Details Date Type Department Care Team (Late st Contact Info) Description 08/26/2020 10:15 AM BUILDING EQUIPMENT INSPECTOR Infusion [facility] [address] [facility] [address] [place] [address] Malignant carcinoid tumor of stomach [...] on file Legal Sex Female 2:22 AM BUILDING EQUIPMENT INSPECTOR Gender Identity Female 06/07/2020 8:39 AM CDT Sexual Orientation Not on file 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 For IM intragluteal administration only- alternate gluteal sites. Shake.Indications:Malignant carcinoid tumor of stomach (HCC) Given 08/26/2020 10:18 AM BUILDING EQUIPMENT INSPECTOR 20 mg Left Dorsogluteal/Butt ock documented in this encounter Orders Appointment Requests Count Last Ordered Date Fi rst Ordered Date ONCBCN INJECTION APPOINTMENT REQUEST 1 06/2020 documented in this encounter Additional Health Concerns Infection Onset Date Last Indicated Resolved Time COVID: Recovered Comment:Added based on recent COVID infection. 08/21/2020 08/23/2020 12/19/2020 3:[address] documented as of this encounter Care Teams [employer] Relationship Specialty Start Date End Date Elizabeth Borrego PA [address] [place], [place] [id number] PCP - General Internal Medicine 03/25/20 09/27/23 Luann Lawrence, ANUP Nurse Practitioner Nurse Practitioner 01/06/19 Adarsh Tuttle MD [address] [place] [address] Consulting Physician Gastroenterology 02/22/19 Sebastien Martinez DO [address] [place] [address] Medical Oncologist/Director Money Hematology and Oncology 02/22/19 Guru Winters DO [address] [place] [address] Consulting Physician Gastroenterology 02/22/19 Gato Abrams MD [address] [place] [address] Surgeon Surgical Oncology 09/07/19 documented as of this encounter
--- OUTSIDE RECORDS SUMMARY | 2024-10-04 03:03 | XMS_ITS | Encounter Summary ---
Author Organization [facility] Address [address] [place] [address] Phone Care Team Providers Care Needle Loom Weaver Name Role Phone Luann Lawrence MIXER ATTENDANT Unavailable [phone] Adarsh Tuttle MD Unavailable [phone] Sebastien Martinez DO Unavailable Guru Winters DO Unavailable Gato Abrams MD Unavailable [phone] Elizabeth Borrego Primary Care Provider [phone] Encounter Details Date Type Department Care Team (Late st Contact Info) Description 08/26/2020 Orders Only [facility] Oncology [address] [facility] [address] [place] [address] Sebastien Martinez, DO [address] [facility] [address] [place] [address] Malignant carcinoid tumor of stomach [...] on file Legal Sex Female 2:22 AM BLANKET MAKER Gender Identity Female 06/07/2020 8:39 AM CDT Sexual Orientation Not on file 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 Not on [...] documented as of this encounter Care Teams Needle Loom Weaver Relationship Specialty Start Date End Date Elizabeth Borrego PA [address] [facility] [address] [place] [address] PCP - General Internal Medicine 03/25/20 09/27/23 Luann Lawrence, ANUP Nurse Practitioner Nurse Practitioner 01/06/19 Adarsh Tuttle MD [address] [facility] [address] [place] [address] Consulting Physician Gastroenterology 02/22/19 Sebastien Martinez DO [address] [facility] [address] [place], [place] [address] Medical Oncologist/Coater Brake Linings Hematology and Oncology 02/22/19 Gruu Winters DO [address] [id number] Consulting Physician Gastroenterology 02/22/19 Gato Abrams MD [facility] [address] Surgeon Surgical Oncology 09/07/19 documented as of this encounter
--- OUTSIDE RECORDS SUMMARY | 2024-10-04 03:03 | XMS_ITS | Encounter Summary ---
Author Organization [facility] Address [address] [facility] [address] [place] [address] Care Team Providers Care Food Safety Director Name Role Phone Luann Lawrence NP Unavailable Adarsh Tuttle MD Unavailable Sebastien Martinez DO Unavailable Guru Winters DO Unavailable [phone] Gato Abrams MD Unavailable [phone] Elizabeth Borrego Primary Care Provider [phone] Encounter Details Date Type Department Care Team (Late st Contact Info) Description 08/19/2020 Telephone [facility] Family Medicine [address] [place] [address] Elizabeth Borrego PA [address] [place] [address] Social History Tobacco Use Types [...] file Legal Sex Female 2:22 AM CIGAR BRANDER Gender Identity Female 06/07/2020 8:39 AM CDT Sexual Orientation Not on file 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 R BRANDER * Telephone Encounter - Kimber Lozano MA - 08/21/2020 4:32 PM CST Called patient and informed her and she understood and pt is going back to work tomorrow. R BRANDER * Telephone Encounter - Elizabeth Borrego PA - 08/19/2020 5:22 PM CIGAR BRANDER Let pt know the following: CDC recommendation is Quarantine for at least 10days past the first onset of sxs AND At least 24 hours that you have been fever free without medication AND Your symptoms have improved (cough, SOB etc) So yes, I agree-- You need to be fever free without meds for 24 hours so really should probably be off tomorrow too. Are you feeling better?? R BRANDER * Telephone Encounter - Elizabeth Borrego PA - 08/19/2020 5:22 PM CIGAR BRANDER ----- Message from Den Orta MA sent at 08/19/2020 4:33 PM CIGAR BRANDER ----- Regarding: FW: Visit Follow-Up Question Contact: ----- Message ----- From: Fabiola Gibson Sent: 08/19/2020 8:51 AM CIGAR BRANDER To: [facility] Clinical Subject: Visit Follow-Up Question Bennie Elizabeth, I am home with fever today. I had low grade fever on , Wednesday. None on Wednesday. Fever Wednesday and today. Was released by Wednesday. Spoke to infectious disease at work, Yesi Foy this morning. She advised I needed to stay home today. Need to be fever free for 24 hours before coming to work. I am making you aware of this. I didn't know what your medical advice would be? If the correct/ necessary steps are being taken for this whole process regarding COVID-19. Thank you very much. Fabiola Gibson R BRANDER documented in this encounter Plan of Treatment Not on file documented as of this encounter Visit Diagnoses Not on filedocumented in this encounter Additional Health Concerns Infection Onset Date Last Indicated Resolved Time COVID19 08/07/2020 08/07/2020 08/21/2020 3:06 AM CIGAR BRANDER COVID: Recovered Comment:Added based on recent COVID infection. 08/21/2020 08/23/2020 12/19/2020 3:[address] documented as of this encounter Care Teams Food Safety Director Relationship Specialty Start Date End Date Elizabeth Borrego PA [address] [address] [place] [address] PCP - General Internal Medicine 03/25/20 09/27/23 Luann Lawrence, ANUP Nurse Practitioner Nurse Practitioner 01/06/19 Adarsh Tuttle MD [address] [place] [address] Consulting Physician Gastroenterology 02/22/19 Sebastien Martinez DO [address] [facility] [address] [place] [address] Medical Oncologist/Senior Animator Hematology and Oncology 02/22/19 Guru Winters DO [address] [address] Consulting Physician Gastroenterology 02/22/19 Gato Abrams MD [address] [place] [address] Surgeon Surgical Oncology 09/07/19 documented as of this encounter
--- OUTSIDE RECORDS SUMMARY | 2024-10-04 03:04 | XMS_ITS | Encounter Summary ---
Author Organization [facility] Address [address] [place] [address] Phone Care Team Providers Care Bingo Worker Name Role Phone MelindaLuann Aditya HEBERT Unavailable [phone] Adarsh Tuttle MD Unavailable [phone] Sebastien Martinez DO Unavailable [phone] Guru Winters DO Unavailable [phone] Gato Abrams MD Unavailable [phone] Elizabeth Borrego Primary Care Provider [phone] Reason for Visit * Reason Comments Injections * Episode Based Medications (Routine) - Closed Specialty Diagnoses / Procedures Referred By Clemencia mendez Referred To Contact Oncology Diagnoses Malignant carcinoid tumor of stomach (HCC) Procedures [place] OCTREOTIDE INJECTION, DEPOT Sebastien Martinez, [address] [address] Phone: tel: fax: [facility] Oncology [address] [address] Phone: tel: fax: Referral ID Status Reason Start Date Expiration Date Visits Re quested Visits Authorized [id number] Closed 2022 02/19/2023 1 50 Encounter Details Date Type Department Care Team (Late st Contact Info) Description 05/03/2020 3:15 PM CDT Infusion [facility] [address] [facility] [address] [place] [phone] Malignant carcinoid tumor of stomach (CMS/HCC) (Primary [...] on file Legal Sex Female 2:22 AM ENVELOPE CUTTER Gender Identity Female 06/07/2020 8:39 AM CDT Sexual Orientation Not on file 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 For IM intragluteal administration only- alternate gluteal sites. Shamir.Indications:Malignant carcinoid tumor of stomach (HCC) Given 05/03/2020 3:33 PM CDT 20 mg Right Dorsogluteal/Butt ock documented in this encounter Orders Appointment Requests Count Last Ordered Date Fi rst Ordered Date ONCBCN INJECTION APPOINTMENT REQUEST 1 04/17 documented in this encounter Care Teams Bingo Worker Relationship Specialty Start Date End Date Elizabeth Borrego PA [address] [place], [place] [id number] PCP - General Internal Medicine 03/25/20 09/27/23 Luann Lawrence, ANUP Nurse Practitioner Nurse Practitioner 01/06/19 Adarsh Tuttle MD [address] [facility] [address] [place] [address] Consulting Physician Gastroenterology 02/22/19 Sebastien Martinez DO [address] [place] [address] Medical Oncologist/Shipping Helper Hematology and Oncology 02/22/19 Guru Winters DO [address] [place] [address] Consulting Physician Gastroenterology 02/22/19 Gato Abrams MD [address] [place] [address] Surgeon Surgical Oncology 09/07/19 documented as of this encounter
--- OUTSIDE RECORDS SUMMARY | 2024-10-04 03:04 | XMS_ITS | Encounter Summary ---
Author Organization [facility] Address [address] [place] [address] Phone Care Team Providers Care Hearth Feeder Name Role Phone Luann Lawrence CAMPGROUND HAND Unavailable [phone] Adarsh Tuttle MD Unavailable [phone] Sebastien Martinez DO Unavailable [phone] Guru Winters DO Unavailable [phone] Gato Abrams MD Unavailable [phone] Elizabeth Borrego Primary Care Provider [phone] Encounter Details Date Type Department Care Team (Late st Contact Info) Description 05/01/2020 Orders Only [facility] Phys[facility] Oncology [address] [facility] [address] [place] [phone] Sebastien Martinez, DO [address] [facility] [address] [place] [address] Malignant carcinoid tumor of stomach [...] on file Legal Sex Female 2:22 AM MEDICAL ESTHETICIAN Gender Identity Female 06/07/2020 8:39 AM CDT Sexual Orientation Not on file 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 Not on file Not on mikie e documented as of this encounter Plan of Treatment Not on file documented as of this encounter Visit Diagnoses Diagnosis Malignant carcinoid tumor of stomach (HCC)- Primary Malignant carcinoid tumor of the stomach documented in this encounter Care Teams Hearth Feeder Relationship Specialty Start Date End Date Elizabeth Borrego PA [address] [address] [place] [address] PCP - General Internal Medicine 03/25/20 09/27/23 Luann Lawrence NP Nurse Practitioner Nurse Practitioner 01/06/19 Adarsh Tuttle MD [address] [facility] [address] [place] [address] Consulting Physician Gastroenterology 02/22/19 Sebastien Martinez DO [address] [place] [address] Medical Oncologist/Blade Changer Hematology and Oncology 02/22/19 Guru Winters DO [address] [place] [address] Consulting Physician Gastroenterology 02/22/19 Gato Abrams MD [address] [place] [address] Surgeon Surgical Oncology 09/07/19 documented as of this encounter
--- OUTSIDE RECORDS SUMMARY | 2024-10-04 03:04 | XMS_ITS | Encounter Summary ---
Author Organization [facility] Address [address] [place] [address] Phone Care Team Providers Care Electronic Equipment Trades Worker Name Role Phone Luann Lawrence ANUP Unavailable [phone] Adarsh Tuttle MD Unavailable [phone] Vick Li DO Unavailable [phone] Guru Winters DO Unavailable [phone] Gato Abrams MD Unavailable [phone] Elizabeth Borrego Primary Care Provider [phone] Reason for Visit * Reason Comments Follow-up Encounter Details Date Type Department Care Team (Late st Contact Info) Description 06/07/2020 10:45 AM CDT Office Visit [facility] Oncology [address] [facility] [address] [place] [address] Vick Li DO [address] [id number] Malignant carcinoid tumor of stomach (CMS/HCC) (Primary [...] on file Legal Sex Female 2:22 AM DIE REAMER Gender Identity Female 06/07/2020 8:39 AM CDT Sexual Orientation Not on file 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 female. Primary Care Provider: NBA Bryan Assessment/Plan 1. 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 2. Pernicious anemia. 3. Stable and very suspicious 6 mm hyperenhancing lesion in the uncinate process of the pancreas noted on recent surveillance CT scan. 4. Status post ventral hernia repair Recommendations: 1. At this visit, she has stable 6 mm lesion of the uncinate process of the pancreas which corresponds to benefit and efficacy with the current somatostatin analog injections. 2. I recommend that she continues with octreotide 20 mg IM every 4 weeks. 3. I will see the patient back in [address] Abrams will re-evaluate her upper abdomen with a repeat CT scan of the abdomen with contrastin the month of August. 5. Benign gastric polyp which remained stable. 6. Resolved octreotide induced steatorrhea Patient Active Problem List Diagnosis ??? Malignant [...] of recurrent major depressive disorder (CMS/HCC) ??? Incisional hernia, without obstruction or gangrene ??? Submucosal lesion of stomach Diagnoses and all orders for this visit: Malignant carcinoid tumor of stomach (CMS/HCC) (Primary) - Clinic Appointment Request Follow up; VICK LI MD; Clinic Appointment Location: [facility] IM [facility]C [facility] - Injection Appointment Request Is this the patient's first treatment? No; What is your ordering location? [facility]c/Hem/BMT; Where will this patient receive treatment? [facility]; Future - Injection Appointment Request Is this the patient's first treatment? No; What is your ordering location? [facility]/Hem/BMT; Where will this patient receive treatment? [facility]; Future - Lab Draw Appt Request Arm Draw or Central Line Draw? Arm; What is your ordering location? [facility] Onc/Hem/BMT; Where will this patient receive treatment? [facility]; Future - Injection Appointment Request Is this the patient's first treatment? No; What is your ordering location? [facility] IM Onc/Hem/BMT; Where will this patient receive treatment? [facility]; Future - CBC with auto differential; Future - Comprehensive metabolic panel; Future - Clinic Appointment Request Follow up; VICK LI MD; Clinic Appointment Location: [facility]; Future Iron deficiency anemia due to chronic blood loss - Clinic Appointment Request Follow up; VICK LI MD; Clinic Appointment Location: [facility]; Future Subjective Interval History: Stage I carcinoid tumor of the stomach. 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 In 2019, her primary care physician, Dr. Huizra referred the patient to Dr. Winters for [...] was then referred to Dr. Tuttle at [facility] for EUS evaluation. Thiswas performed on [...] Abrams in Surgical Oncology Department at [facility]. 8. On February 24, 2019, she [...] A in May was better but still [id number]. 12. In May of 2019, we had [...] decided to proceed with medical therapy using [id number] mg IM every 4 weeks. She has [...] the uncinate process of the pancreas. 18. Currently, patient is doing well without any significant symptoms. Interval Notes: I have reviewed: allergies, current medications, past family history, past medical history, past social history, past surgical history and problem list HPI Review of Systems Constitutional: Negative. Negative for appetite change and chills. HENT: Negative. Eyes: Negative. Respiratory: Negative. Cardiovascular: Negative. Gastrointestinal: Positive for abdominal distention. Endocrine: Negative. Genitourinary: Negative. Musculoskeletal: Negative. Skin: Negative. Neurological: Negative. Hematological: Negative. Psychiatric/Behavioral: Negative. Objective Physical Exam: Vital Signs for this encounter: BSA: 1.76 meters squared BP 119/74 (BP Location: Right arm) Pulse 56 Ht 162.6 cm (5' 4.02 ) Wt 68.2 kg (150 lb 6.4 oz) SpO2 97% BMI 25.80 kg/m?? Physical Exam Constitutional: Appearance: She is [...] Results: WBC Date Value Ref Range Status 05/31/2020 5.1 3.8 - 9.9 X10 3/ul Final 05/13/2020 5.7 3.8 - 9.9 K/cumm Final Hgb Date Value Ref Range Status 05/13/2020 11.0 (L) 11.9 - 15.5 g/dL Final Hemoglobin Date Value Ref Range Status 05/31/2020 12.4 11.9 - 15.5 g/dL Final Hct Date Value Ref Range Status 05/31/2020 36.7 35.6 - 45.5 % Final 05/13/2020 32.8 (L) 35.6 - 45.5 % Final Plt Date Value Ref Range Status 05/13/2020 216 150 - 400 K/cumm Final Plt Count Date Value Ref Range Status 05/31/2020 295 150 - 400 x10 3/ul Final Creatinine Date Value Ref Range Status 05/31/2020 0.7 0.5 - 1.1 mg/dL Final Comment: NOTE: Estimated GFR (Cockroft-Gault) will NOT be calculated unless patient Height and Weight were entered. Also, Kidney Disease Stage (GFR) and Estimated GFR (Cockroft-Gault) will NOT be calculated if Creatinine result is <0.2. 05/13/2020 0.82 0.60 - 1.10 mg/dL Final AST Date Value Ref Range Status 05/31/2020 21 0 - 32 U/L Final 08/24/2019 38 10 - 45 Units/L Final CT scan of the chest, abdomen pelvis with contrast performed last week shows the following: IMPRESSION: 1. stable 6 mm Hyperenhancing lesion in the uncinate process of the pancreas, 2. No other evidence of any metastatic disease or other abnormalities. documented in this encounter Miscellaneous Notes * Addendum Note - Estela Bolton RN - 06/07/2020 10:45 AM CDTAddended by: ESTELA BOLTON on: 08/21/2020 11:39 AM Modules accepted: Orders REAMER * Addendum Note - Estela Bolton RN - 06/07/2020 10:45 AM CDTAddended by: ESTELA BOLTON on: 08/21/2020 11:39 AM Modules accepted: Orders REAMER documented in this encounter Plan of Treatment Not on file documented as of this encounter Procedures Procedure Name Priority Date/Time Associated Diagnosis Comments CBC WITH AUTO DIFFERENTIAL STAT 08/26/2020 9:55 AM DIE REAMER Malignant carcinoid tumor of stomach (CMS/HCC) COMPREHENSIVE METABOLIC PANEL Routine 08/26/2020 9:55 AM DIE REAMER Malignant carcinoid tumor of stomach (CMS/HCC) documented in this encounter Results * (ABNORMAL) Comprehensive metabolic panel (08/26/2020 9:55 AM DIE REAMER) Sodium 143 135 - 145 mmol/L [facility] Potassium 3.8 3.3 - 5.1 mmol/L [facility] Chloride 103 96 - 108 mmol/L [facility] Carbon Dioxide 30 22 - 32 mmol/L [facility] Anion Gap 10 7 - 16 [facility] Glucose 127(H) 70 - 100 mg/dL [facility] BUN 12 8 - 25 mg/dL [facility] Creatinine 0.6 0.5 - 1.1 mg/dL [facility] Comment: NOTE: Estimated GFR (Cockroft-Gault) will NOT be calculated unless patient Height and Weight were entered. Also, Kidney Disease Stage (GFR) and Estimated GFR (Cockroft-Gault) will NOT be calculated if Creatinine result is <0.2. Kidney Disease Stage >90 mL/MIN [facility] Comment: NOTE; ??The GFR is an estimated [...] ? Kidney failure or on dialysis Calcium 10.0 8.6 - 10.3 mg/dL [facility] Total Protein 7.2 6.4 - 8.3 g/dL [facility] Albumin 4.5 3.5 - 5.0 g/dL [facility] Globulin 2.7 2.3 - 3.5 gm/dL [facility] Albumin/Globulin Ratio 1.7 1.1 - 1.8 [facility] Total Bilirubin 0.6 0.0 - 1.2 mg/dL [facility] AST 26 0 - 32 U/L [facility] ALT 19 0 - 33 U/L [facility] Alkaline Phosphatase 63 35 - 104 U/L [facility] Blood specimen (specimen) 08/26/2020 9:55 AM DIE REAMER 08/26/2020 9:55 AM DIE REAMER Narrative Resulting Agency Comment RCR us Vick Li DO LAB BLOOD ORDERABLES Final R esult [facility] [address] [address] * CBC with auto differential (08/26/2020 9:55 AM DIE REAMER) WBC 3.9 3.8 - 9.9 X10 3/ul [facility] RBC 4.30 3.90 - 5.20 x10 6/ul [facility] Hemoglobin 12.8 11.9 - 15.5 g/dL [facility] Hct 37.9 35.6 - 45.5 % [facility] MCV 88.1 81.3 - 96.4 [facility] MCH 29.8 27.1 - 33.3 pg [facility] MCHC 33.8 32.3 - 35.7 g/dl [facility] RDW 12.0 11.1 - 14.9 % [facility] Plt Count 275 150 - 400 x10 3/ul [facility] MPV 9.9 9.1 - 12.3 [facility] Neut % 61.9 % [facility] Immature Gran % 0.3 % [facility] Lymph % 27.6 % [facility] Briscoe % 6.1 % [facility] Eos % 3.1 % [facility] AUTO BASO % 1.0 % [facility] NEUTROPHIL ABS # 2.4 1.7 - 6.5 x10 3/ul [facility] Immature Gran # 0.0 0.0 - 0.1 x10 3/ul [facility] Absolute Lymphs (auto) 1.1 0.8 - 3.3 x10 3/ul [facility] Absolute Monos (auto) 0.2 0.2 - 0.8 x10 3/ul [facility] Absolute Eos (auto) 0.1 0.0 - 0.5 x10 3/ul [facility] BASOPHIL ABS # 0.0 0.0 - 0.1 x10 3/ul [facility] Nucleat RBC Rel Count 0.0 #/100WBC [facility] NRBC abs 0.00 0.00 - 0.01 x10 3/ul [facility] Absolute Neutrophils 2,400 200 - 8,000 /ul [facility] Blood specimen (specimen) 08/26/2020 9:55 AM DIE REAMER 08/26/2020 9:55 AM DIE REAMER Narrative Resulting Agency Comment RCR Vick Li DO LAB BLOOD ORDERABLES Final R esult [facility] [address] [facility] [address] [place] [address] documented in this encounter Visit Diagnoses Diagnosis Malignant carcinoid tumor of stomach (HCC)- Primary Malignant carcinoid tumor of the stomach Iron deficiency anemia due to chronic blood loss Iron deficiency anemia secondary to blood loss (chronic) documented in this encounter Orders Appointment Requests Count Last Ordered Date Fi rst Ordered Date ONCBCN CLINIC APPOINTMENT REQUEST 2 020 06/07/2020 ONCBCN INJECTION APPOINTMENT REQUEST 3 06/202006/28/2020 ON[facility]N LAB APPOINTMENT 1 08/26/2020 documented in this encounter Additional Health Concerns Infection Onset Date Last Indicated Resolved Time COVID: Suspected 08/07/2020 08/07/2020 08/08/2020 4:47 PM CDT COVID19 08/07/2020 08/07/2020 08/21/2020 3:06 AM DIE REAMER documented as of this encounter Care Teams Electronic Equipment Trades Worker Relationship Specialty Start Date End Date Elizabeth Borrego PA [address] [facility] [address] [place] [address] PCP - General Internal Medicine 03/25/20 09/27/23 Luann Lawrence NP Nurse Practitioner Nurse Practitioner 01/06/19 Adarsh Tuttle MD [address] [facility] [address] [place] [address] Consulting Physician Gastroenterology 02/22/19 Vick Li DO [address] [facility] [address] [place] [address] Medical Oncologist/Credit Office Manager Hematology and Oncology 02/22/19 Guru Winters DO [address] [place] [address] Consulting Physician Gastroenterology 02/22/19 Gato Abrams MD [address] [place] [address] Surgeon Surgical Oncology 09/07/19 documented as of this encounter
--- OUTSIDE RECORDS SUMMARY | 2024-10-04 03:04 | XMS_ITS | Encounter Summary ---
Author Organization [facility] Address [address] [facility] [address] [place] [address] Care Team Providers Care Spar Machine Operator Name Role Phone Luann Lawrence NP Unavailable Adarsh Tuttle MD Unavailable Sebastien Martinez DO Unavailable Guru Winters DO Unavailable [phone] Gato Abrams MD Unavailable [phone] Elizabeth Borrego Primary Care Provider [phone] Encounter Details Date Type Department Care Team (Late st Contact Info) Description 05/23/2020 Telephone [facility] Family Medicine [address] [place] [address] Elizabeth Borrego PA [address] [address] [place] [address] Social History Tobacco Use Types [...] on file 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 Gender Identity Female 06/07/2020 8:39 AM CDT Sexual Orientation Not on file 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 Not on file Not on mikie e documented as of this encounter Ordered Prescriptions Prescription Sig Dispense Quantity Refills Last Filled Start Date End Date valsartan-hydroCHL OROthiazide (DIOVAN-HCT) 80-12.5 mg per tabletIndications: hypertension Take 1 tablet by mouth daily 90 tablet 05/23/2020 06/24/2020 documented in this encounter Miscellaneous Notes * Telephone Encounter - Elizabeth Borrego PA - 05/23/2020 5:53 PM CDT Decrease dose of diovan hct ----- Message from Sara Hussein MA sent at 05/23/2020 5:15 PM CDT ----- Regarding: FW: Non-Urgent Medical Question Contact: ----- Message ----- From: NBA Bryan Sent: 05/23/2020 1:58 PM CDT To: [facility] Clinical Subject: FW: Non-Urgent Medical Question ----- Message ----- From: Sara Hussein MA Sent: 05/23/2020 1:51 PM CDT To: NBA Bryan Subject: FW: Non-Urgent Medical Question ----- Message ----- From: Fabiola Gibson Sent: 05/23/2020 9:11 AM CDT To: [facility] Clinical Subject: Non-Urgent Medical Question Good Morning. I spoke to Sara on Wednesday regarding my blood pressures. She was going to talk to Elizabeth about themeds versus my numbers since hospital surgery. The hospital never gave me my BP during my stay. Do you want me to restart the BP meds or should I continue to monitor it. I have a wrist BP cuff. Thanks Fabiola Gibson documented in this encounter Plan of Treatment Not on file documented as of this encounter Visit Diagnoses Diagnosis HTN (hypertension), benign- Primary Essential hypertension, benign documented in this encounter Discontinued Medications Medication Sig Discontinue Reason Start Date End Da te valsartan-hydroCHLOROthi azide (DIOVAN-HCT) 160-12.5 mg per tabletIndications:hypert ension Take 1 tablet by mouth daily 03/25/2020 05/23/2020 documented as of this encounter Care Teams Spar Machine Operator Relationship Specialty Start Date End Date Elizabeth Borrego PA [address] [place], [place] [id number] PCP - General Internal Medicine 03/25/20 09/27/23 Luann Lawrence, ANUP Nurse Practitioner Nurse Practitioner 01/06/19 Adarsh Tuttle MD [address] [facility] [address] [place] [address] Consulting Physician Gastroenterology 02/22/19 Sebastien Martinez DO [address] [place] [id number] Medical Oncologist/Intensive Care Specialist Hematology and Oncology 02/22/19 Guru Winters DO [address] [place] [address] Consulting Physician Gastroenterology 02/22/19 Gato Abrams MD [facility] [address] Surgeon Surgical Oncology 09/07/19 documented as of this encounter
--- OUTSIDE RECORDS SUMMARY | 2024-10-04 03:04 | XMS_ITS | Encounter Summary ---
Author Organization [facility] Healthcare Address [address] [place] [address] Care Team Providers Care Oxygen Equipment Preparer Name Role Phone Luann Lawrnece NP Unavailable [phone] Adarsh Tuttle MD Unavailable [phone] Sebastien Martinez DO Unavailable [phone] Guru Winters DO Unavailable [phone] Gato Abrams MD Unavailable [phone] Elizabeth Borrego Primary Care Provider [phone] Encounter Details Date Type Department Care Team (Late st Contact Info) Description 05/09/2020 Orders Only [facility] [address] [place] [address] Marina Rosales MD [address] [address] Pre-op testing (Primary Dx) Social History Tobacco Use Types [...] on file 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 Gender Identity Female 06/07/2020 8:39 AM CDT Sexual Orientation Not on file 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 Not on file Not on mikie e documented as of this encounter Progress Notes * Saumya Zuniga MA - 05/09/2020 4:10 PM CDT Pre-op COVID-19 testing at [facility] documented in this encounter Plan of Treatment Not on file documented as of this encounter Visit Diagnoses Diagnosis Pre-op testing- Primary Unspecified pre-operative examination documented in this encounter Care Teams Oxygen Equipment Preparer Relationship Specialty Start Date End Date Elizabeth Borrego PA [address] [facility] [address] [place] [address] PCP - General Internal Medicine 03/25/20 09/27/23 Luann Lawrence, ANUP Nurse Practitioner Nurse Practitioner 01/06/19 Adarsh Tuttle MD [address] [facility] [address] [place] [address] Consulting Physician Gastroenterology 02/22/19 Sebastien Martinez DO [address] [place] [address] Medical Oncologist/Large Engine Assembler Hematology and Oncology 02/22/19 Guru Winters DO [facility] [address] Consulting Physician Gastroenterology 02/22/19 Gato Abrams MD [address] [place] [id number] Surgeon Surgical Oncology 09/07/19 documented as of this encounter
--- OUTSIDE RECORDS SUMMARY | 2024-10-04 03:04 | XMS_ITS | Encounter Summary ---
Author Organization [facility] Healthcare Address [address] [place] [address] Care Team Providers Care Lip And Gate Builder Name Role Phone Luann Lawrence NP Unavailable [phone] Adarsh Tuttle MD Unavailable [phone] Sebastien Martinez DO Unavailable [phone] Guru Winters DO Unavailable [phone] Gato Abrams MD Unavailable [phone] Elizabeth Borrego Primary Care Provider [phone] Encounter Details Date Type Department Care Team (Late st Contact Info) Description 05/13/2020 7:28 AM CDT Anesthesia Event [facility] Operating Room [address] [place] [address] Gonzalo Araya MD [address] [facility] [address] [place] [address] Anesthesia Record Procedure Summary Procedure Name Responsible Anesthesiologist Anesthesia Start Time Anesthesia Stop Time Robotic retrorectus ventral incisional hernia repair with mesh (Abdomen) Gonzalo Araya MD 05/13/20 0728 05/13/20 1137 Events Date Time Event Comment 05/13/2020 0543 In Preop 0659 0728 An Start 0730 In Room 0732 An Start Data 0738 An Induction The patient was reevaluated immediately before moderate or deep sedation use and before anesthesia induction. 0741 An Intubation 0743 Anesthesia Ready 0805 Proc Start 0805 Incision Start 1117 Proc Fin 1118 An Extubation 1126 an stop data 1127 Out of Room 1137 Handoff to RN I completed my handoff [...] disposition at the time of handoff: PACU 1137 An Stop Meds Name Total midazolam PF 2 mg lidocaine 1 % PF 40 mg fentaNYL 250 mcg propofol 150 mg rocuronium 100 mg ondansetron PF (ZOFRAN) 2 mg/mL injectio n 8 mg glycopyrrolate 0.2 mg ceFAZolin 2,000 mg methadone 10 mg/mL 10 mg phenylephrine infusion (100 mcg/mL) 0.85 mg heparin 5,000 unit/mL 5,000 Units famotidine PF 20 mg lidocaine (LTA) solution 4 % 4 mL dexamethasone 4 mg/ml 4 mg sugammadex 200 mg ketorolac 30 mg Lactated Ringer's (LR) infusion 700 mL LR 1,000 mL * Agents Name O2% N2O O2 Air Sevoflurane Inspired Sevoflurane * Blood No blood administrations on file. Lines, Drains, and Airways Type Details Placement Removal RETIRED Surgical Site Abdomen; 09/19/24 (Retired LDA, Removed/Completed by DND Consulting with LDA Utility); 1213 (Retired LDA, Removed/Completed by DND Consulting with LDA Utility) 05/13/20 1018 by 09/19/24 1213 by Discharge Provider, Automatic RETIRED Surgical Site 08/23/19; 1434; Abdomen; SURGICAL TROCAR ACCESS SITES X5; 09/19/24 (Retired LDA, Removed/Completed by DND Consulting with LDA Utility); 1213 (Retired LDA, Removed/Completed by DND Consulting with LDA Utility) 08/23/19 1434 by Christoph Parker RN 09/19/24 1213 by Discharge Provider, Automatic Peripheral IV Placement Date: 05/13/20; Placement Time: 0614; Catheter Size: 18 G; Orientation: Left, Posterior; Location: Hand; Site Prep: Chlorhexidine; Inserted by: RN; Insertion Attempts: 1; Patient Tolerance: Tolerated well; Removal Date: 05/14/20; Removal Time: 1856; Removal Reason: Other (Comment) 05/13/20 0614 by Alfredo Damon RN 05/14/20 185 by [place] Child, BYRON ETT Placement Date: 05/13/20; Placement Time: 07 (created via procedure documentation); Mask Ventilation: 1; Technique: Video laryngoscopy; Type: ETT - single; Single Lumen Tube Size: 7 mm; Cuffed: Yes; Laryngoscope: Marci; Blade Size: 3; Location: Oral; Grade View: Grade III; Insertion Attempts: 1; Placement Verification: Auscultation, Capnometry; Removal Date: 05/13/20; Removal Time: 1118 05/13/20 0741 by Kimber Jones CRNA 05/13/20 111 by Kimber Jones CRNA Peripheral IV Placement Date: 05/13/20; Placement Time: 0805 (created via procedure documentation); Catheter Size: 18 G; Orientation: Right; Location: Hand; Site Prep: Alcohol; Insertion Attempts: 1; Removal Date: 05/15/20; Removal Time: 0857; Removal Reason: Per order 05/13/20 0805 by Kimber Jones CRNA 05/15/20 0857 by Mamie Gannon RN Urethral Catheter Placement Date: 05/13/20; Placement Time: 0809; Inserted by: Mitchel WILKINSON; Type: Straight-tip, Non-latex; Size: 16 Fr.; Balloon Size: 10 mL; Urine Returned: Yes; Removal Date: 05/13/20; Removal Time: 1117; Removal Reason: Disontinued in OR 05/13/20 0809 by Chacha Wilkinson RN 05/13/20 1117 by Debby Mishra, BYRON documented in this encounter Social History Tobacco [...] file Legal 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 Gender Identity Female 06/07/2020 8:39 AM CDT Sexual Orientation Not on file 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 Not on file Not on file Not on mikie e documented as of this encounter OR Notes * Anesthesia Postprocedure Evaluation - Gonzalo Araya MD - 05/13/2020 12:07 PM CDT Patient: Fabiola Gibson Procedure Summary Date: 05/13/20 Room / Location: [facility] OR POD 1 ROOM 326 / [facility] OR POD 1 Anesthesia Start: 727 Anesthesia Stop: 1136 Procedure: Robotic retrorectus ventral incisional hernia repair with mesh (N/A Abdomen) Diagnosis: Incisional hernia, without obstruction or gangrene (Incisional hernia, without obstruction or gangrene [K43.2]) Surgeon: Marina Rosales MD Responsible Provider: Gonzalo Araya MD Anesthesia Type: general ASA Status: 3 Anesthesia Type: general Last vitals BP 110/61 Pulse 81 Temp 37.1 ??C (98.8 ??F) (Temporal) Resp 9 SpO2 97% Anesthesia Post Evaluation Patient location during evaluation: PACU Patient participation: complete - patient participated Level of consciousness: follows simple commands and fully awake Pain score: 3 Pain management: adequate Airway patency: adequate Evidence of recall: no Anesthetic complications: no Cardiovascular status: acceptable and hemodynamically stable Respiratory status: acceptable and nasal cannula Hydration status: acceptable Pt is: normothermic Nausea/Vomiting status: none Comments: Pt is comfortable and stable to go to the floor BP 110/61 Pulse 81 Temp 37.1 ??C (98.8 ??F) (Temporal) Resp 9 SpO2 97% * Anesthesia Procedure Notes - Kimber Jones CRNA - 05/13/2020 8:05 AM CDTAssociated Order(s): Peripheral IV Catheter Peripheral IV Catheter Patient location: OR Start time: 05/13/2020 7:40 AM Staff: Placed by: Anesthesiologist: Gonzalo Araya MD Preprocedure prep: Prep solution: alcohol PPE: gloves and provider hat/mask PIV line: Laterality: right Site: hand Catheter size: 18 g Technique: anatomical landmarks, direct visualization and palpatation Procedure details: good blood return and occlusive dressing applied Number of attempts: 1 Assessment: Events: patient tolerated procedure well with no complications * Anesthesia Procedure Notes - Kimber Jones CRNA - 05/13/2020 8:03 AM CDTAssociated Order(s): Airway Airway Patient location: OR Urgency: elective Date/time: 05/13/2020 7:41 AM Indications for airway management: anesthesia and airway protection Difficult airway: no Staff: Supervising provider: Gonzalo Araya MD Placed by: VIRTUALIZATION ENGINEER: Kimber Jones CRNA Emergent airway documentation: Risks and benefits discussed: yes Consent obtained: yes Consent given by: patient Airway prep: Preoxygenated: yes Patient position: sniffing Mask difficulty assessment: 1 - vent by mask Spontaneous ventilation during airway: absent Sedation level during airway: GA Final airway details: Final airway type: endotracheal airway Tube type: ETT ETT size: 7.0 mm Cuffed: yes Technique used for successful ETT placement: video laryngoscopy Devices/Methods used in placement: intubating stylet and anterior pressure/BURP Insertion site: oral Blade type: Marci Video blade type: CMAC Blade size: 3 Cormack-Lehane (direct): grade III - view of epiglottis only Cormack-Lehane (video): grade IIa - partial view of glottis Cuff volume: 7 mL Cuff inflated with: air ETT to lips: 21 cm Placement verified by: auscultation and CO2 detection Airway secured with: silk tape Number of attempts: 1 * Anesthesia Preprocedure Evaluation - Gonzalo Araya MD - 05/07/2020 3:43 PM CDT Images from the original note were not included. [facility] Planning Preoperative Evaluation Record Evaluation type/location: [facility] Planned procedure site: [facility] PVT OR (Pod 1) Date: 05/07/20 Anesthesia Evaluation Fabiola Gibson is a 54 y.o. female Procedure(s): XI REPAIR RETRORECTUS INCISIONAL HERNIA WITH MESH- LAPAROSCOPIC ROBOTIC ASSISTED Pre-Op Diagnosis Codes: * Incisional hernia, without obstruction or gangrene [K43.2] HISTORY HPI Fabiola Gibson is a 54 y.o. female who is being evaluated prior to undergoing XI REPAIR RETRORECTUS INCISIONAL HERNIA WITH MESH- LAPAROSCOPIC ROBOTIC ASSISTED for Incisional hernia Past Medical History Neurological + Psychiatric history - anxiety and depression Pertinent negatives: seizures; CVA/stroke and TIA Cardiovascular + Hypertension (compliant with home BP meds ) Hypertension year diagnosed: 1999. Typical systolic BP - 120 Typical diastolic BP - 70 + Hyperlipidemia + Systolic or diastolic dysfunction w/o CHF Diastolic dysfunction w/o CHF. 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 Pertinent negatives: CAD ; [place] ; CABG ; atrial fibrillation; pacemaker/ICD; DVT/PE; negative for CHF; drug-eluting stent(s); bare metal stent(s) and unknown stent(s) type Comments: Followed Dr. Marroquin. Last seen 03/08/2020. Respiratory Pertinent negatives: COPD; asthma and sleep apnea (KATIA) Hepatic / Heme + Liver disease + History of anemia (Pernicious anemia) - iron deficiency Pertinent negatives: history of thrombocytopenia and history of José positive Gastrointestinal Pertinent negatives: GERD and hiatal hernia Renal / Pertinent negatives: renal disease; dialysis and nephrolithiasis Musculoskeletal/Pain Pertinent negatives: chronic pain; osteoarthritis and headaches Endocrine / Other + Cancer history- current cancer. 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 Last infusion 05/03 next is 05/31. + Rheumatological disease - rheumatoid arthritis. Pertinent negatives: diabetes mellitus; thyroid disease; obesity (BMI >30) and infectious disease Functional Capacity Functional capacity: 4-6 METs Comments: Denies SOB or CP with 2 flights of stairs Day of Surgery assessments + Possibility of assessed (postmenopausal ) - ruled out by patient's provided history. Review of Systems + vision loss (wears corrective lenses ) + diarrhea (since octreotide injection- oncologist aware. Last loose stool this AM x1 today) Pertinent negatives: productive cough; wheezing; SOB; recent cold/flu; fever; chest pain; palpitations; orthopnea; pedal edema; PND; previous transfusion; melena/hematochezia; easy bruising; bleedingproblems; syncope; dizziness; muscle weakness; chronic pain; numbness/tingling; hard of hearing; heartburn; nausea; dysphagia; dentures/partials; chipped/loose teeth; abdominal pain (denies UTI symptoms ); diaphoresis and no unexpected weight change PAT Summary and Plans Cardiac risk classification of planned procedure: intermediate cardiac risk. Preoperative assessment status: lab tests ordered. Initial preoperative evaluation discussed with: Olivia Worthy MD Additional comments: Fabiola Gibson is a 54 y.o. female who is being evaluated prior to undergoing a low cardiac risk surgery. Revised Cardiac Risk Index factors are (none) for a total RCRI of 0 out of6. Functional capacity is 4-6 METs. Obstructive sleep apnea (KATIA) screening status is STOP-Bang=2 suggesting low risk for KATIA. Blood bank needs for day of procedure: Type and Screen only (pt has past history of gastrectomy andmost recent H/H was 8.8/28.1 in 08/2019. Per CPAP attending, draw T&S) Pending labs/tests include: CBC BMP T&S Patient with No known exposure to COVID19 and no concerning symptoms of COVID19. Plan for pre-procedure COVID19 testing: Surgery date greater than 4 days from today. Pre-procedure COVID19 testing scheduled to be performed on 05/10 at [facility]. . Discussed case with CPAP attending: >History of LBBB, ECHO 02/2020 (There is a thin, filamentous mobile echodensity seen on the ventricular aspect of the aortic valve leaflets most likely consistent with Lambl's excresence, less likely papillary fibroelastoma.), EKG from 01/2020 and ekg from today (HR 46), cardiology note from 03/08/2020 and telephone encounter regarding HR from 05/01. No further cardiac workup needed per CPAP attending. >>>Pt has history of gastric carcinoid tumors. A new spot was discovered on her pancreas in 02/2020. She was started on Octreotide in March 2020. Most recent injection was 05/03 and next dose is due 05/31. Discussed with CPAP attending. Preoperative evaluation performed by Tricia Sparrow NP on 05/07/20 at 3:44 PM. . Follow up note Labs reviewed and are without significant findings. Surgeon's office reviews laboratory results independently. CPAP process complete. Follow-up completed by: Aleja Bedoya NP on 05/08/20 at 9:01 AM Patient Active Problem List Diagnosis ??? Malignant [...] or gangrene ??? Submucosal lesion of stomach Past Medical History: Diagnosis Date ??? Anemia ??? Cancer (CMS/HCC) ??? Carcinoid tumor of stomach ??? Chronic diarrhea ??? Depression ??? Heart murmur ??? Hyperlipidemia ??? Hypertension ??? Left bundle branch block ??? Rheumatoid arthritis (CMS/HCC) ??? Urinary tract infection Past Surgical History: Procedure Laterality Date ??? SECTION 1989,1992 twice ??? COLONOSCOPY 11/2018 ??? ENDOMETRIAL ABLATION 09/2005 ??? ESOPHAGOGASTRODUODENOSCOPY 2018 x4 ??? GASTRECTOMY 08/23/2019 partial ??? STOMACH SURGERY ??? TUBAL LIGATION 02/2005 ??? UPPER GASTROINTESTINAL ENDOSCOPY OB History No obstetric history on file. No Known Allergies Taking? Last Dose Start Date End Date Provider acetaminophen ER (TYLENOL) 650 mg 8 hr tablet -- -- Historical Provider, buPROPion XL (WELLBUTRIN XL) 150 mg 24 hr tablet 03/25/20 -- NBA Bryan Take 1 tablet (150 mg total) by mouth every morning cholecalciferol (VITAMIN D3) 1,000 unit capsule -- -- Historical Provider, cyanocobalamin (Vitamin B-12) 1,000 mcg/mL injection 12/25/19 -- Sebastien Martinez, DO Inject 1 mL (1,000 mcg total) into the muscle as instructed every 30 (thirty) days Patient taking differently: Inject 1,000 mcg into the muscle as instructed every 30 (thirty) days escitalopram (LEXAPRO) 10 mg tablet 03/25/20 -- NBA Bryan Take 1 tablet (10 mg total) by mouth every morning hydroxychloroquine (PLAQUENIL) 200 mg tablet 01/30/19 -- Historical Provider, insulin syringe-needle U-100 1 mL 29 gauge x 1/2 syringe 07/25/19 -- Sebastien Martinez, DO 1 Syringe every 30 (thirty) days loperamide (Imodium A-D) 2 mg tablet -- -- Historical Provider, multivitamin capsule -- -- Historical Provider, octreotide LAR (SandoSTATIN LAR) 20 mg suspension,extended rel recon 05/03/2020 -- -- Historical Provider, pravastatin (PRAVACHOL) 40 mg tablet 03/25/20 -- NBA Bryan Take 1 tablet (40 mg total) by mouth every morning valsartan-hydroCHLOROthiazide (DIOVAN-HCT) 160-12.5 mg per tablet 03/25/20 -- NBA Bryan Take 1 tablet by mouth daily Patient taking differently: Take 1 tablet by mouth painter rough before breakfast Current Outpatient Medications: ??? acetaminophen ER (TYLENOL) 650 mg 8 hr tablet ??? buPROPion XL (WELLBUTRIN XL) 150 mg 24 hr tablet ??? cholecalciferol (VITAMIN D3) 1,000 unit capsule ??? cyanocobalamin (Vitamin B-12) 1,000 mcg/mL injection ??? escitalopram (LEXAPRO) 10 mg tablet ??? hydroxychloroquine (PLAQUENIL) 200 mg tablet ??? loperamide (Imodium A-D) 2 mg tablet ??? multivitamin capsule ??? octreotide LAR (SandoSTATIN LAR) 20 mg suspension,extended rel recon ??? pravastatin (PRAVACHOL) 40 mg tablet ??? valsartan-hydroCHLOROthiazide (DIOVAN-HCT) 160-12.5 mg per tablet ??? insulin syringe-needle U-100 1 mL 29 gauge x 1/2 syringe Social History Tobacco Use Smoking Status Former Smoker ??? Packs/day: 1.00 ??? Years: 2.00 ??? Pack years: 2.00 ??? Types: Cigarettes ??? Start date: 1996 ??? Last attempt to quit: 1998 ??? Years since quittin.5 Smokeless Tobacco [...] Maternal Grandmother ??? Anesthesia problems Neg Hx PAT Physical Exam Airway Exam: Mallampati: III Cervical ROM: FROM TM distance: 3.5 Cardiovascular Exam: Rate: regular Rhythm: regular Negative for Murmur Negative for peripheral edema Pulmonary Exam: LCTA, bilat EENT Exam: trachea midline Dental Exam: Appears intact Skin Exam: Skin is warm. Abdominal exam: Abdomen is soft. Bowel sounds are present. Current state: Patient's current state is cooperative. Vitals: 05/07/20 1600 05/07/20 1605 BP: 109/70 106/68 Pulse: 52 SpO2: 98% Relevant diagnostics: ECG(s): 05/07/20: Sinus bradycardia (bpm 46). LBBB. 02/13/2020: LBBB. (bpm 58) Echocardiogram(s): 02/21/2020: Summary: 1. Left ventricular systolic function is normal, estimated at 60-65%. 2. There is no increase left ventricular wall thickness. 3. Left ventricular septal wall motion is abnormal with septal motion related to bundle branch block. 4. The left ventricular diastolic function is grade II diastolic dysfunction. 5. There is mild aortic valve sclerosis. 6. There is no aortic valve stenosis with a peak velocity of 188 cm/s mean gradient of 9 mmHg, and aortic valve area of 2.2 cm2. 7. There is a trace aortic valve regurgitation 8. 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 Clinical correlation advised. Stress test(s): N/A Cardiac catheterization(s): N/A PFT(s): N/A Vascular studies: N/A Other: N/A PT: No results found for requested labs within last 720 hours. INR: No results found for requested labs within last 720 hours. APTT: No results found for requested labs within last 720 hours. Hgb A1C: No results found for requested labs within last 720 hours. CBC RBC: No results found for requested labs within last 720 hours. RDW: No results found for requested labs within last 720 hours. MCHC: No results found for requested labs within last 720 hours. MCH: No results found for requested labs within last 720 hours. MCV: No results found for requested labs within last 720 hours. Hct: No results found for requested labs within last 720 hours. Hgb: No results found for requested labs within last 720 hours. WBC: No results found for requested labs within last 720 hours. MPV: No results found for requested labs within last 720 hours. Platelets: No results found for requested labs within last 720 hours. RDW CV: No results found for requested labs within last 720 hours. RDW Sd: No results found for requested labs within last 720 hours. BMP Glucose: No results found for requested labs within last 720 hours. Calcium: No results found for requested labs within last 720 hours. Sodium: No results found for requested labs within last 720 hours. Potassium: No results found for requested labs within last 720 hours. CO2: No results found for requested labs within last 720 hours. Chloride: No results found for requested labs within last 720 hours. BUN: No results found for requested labs within last 720 hours. Creatinine: No results found for requested labs within last 720 hours. STOP-Bang Total Score: 2 Yadira index score: 100 DOS Physical Exam Medical history, medications, and allergies reviewed. Attestation: This PAT evaluation Airway Exam: Mallampati: II Cervical ROM: FROM TM distance: 3.5 Jaw ROM: full Cardiovascular Exam: Rate: regular Rhythm: regular Pulmonary Exam: LCTA, bilat EENT Exam: trachea midline Dental Exam: Appears intact Skin Exam: Skin is warm. Current state: Patient's current state is cooperative and interactive. Anesthesia Plan ASA 3 My patient is approved for the Anesthesia Controlled Medication protocol when under care of a VIRTUALIZATION ENGINEER Planned anesthesia: General Team communication plan: oral ET tube Induction: Induction: intravenous. Postoperative Plan: Postoperative administration opioids intended. No postoperative mechanical ventilation intended. Patient's planned disposition post procedure is Floor. Informed Consent: Discussed plan with VIRTUALIZATION ENGINEER. Anesthesia plan and risks discussed with patient. [...] Procedure Name Priority Date/Time Associated Diagnosis Comments MS AN PROCEDURE PLACEHOLDER Routine 05/13/2020 8:05 AM CDT MS AN PROCEDURE PLACEHOLDER Routine 05/13/2020 8:03 AM CDT MS AN ELECTIVE ENDOTRACHEAL AIRWAY Routine 05/13/2020 8:03 AM CDT documented in this encounter Results * MS AN PROCEDURE PLACEHOLDER (05/13/2020 8:05 AM CDT) Narrative Kimber Jones CRNA - 05/13/2020 8:05 AM CDT Kimber Jones CRNA ? 05/13/2020 ??8:05 AM Peripheral IV Catheter Patient location: OR Start time: 05/13/2020 7:40 AM Staff: Placed by: Anesthesiologist: Gonzalo Araya MD Preprocedure prep: Prep solution: alcohol PPE: gloves and provider hat/mask PIV line: Laterality: right Site: hand Catheter size: 18 g Technique: anatomical landmarks, direct visualization and palpatation Procedure details: good blood return and occlusive dressing applied Number of attempts: 1 Assessment: Events: patient tolerated procedure well with no complications Result [facility] Gonzalo Araya MD ANESTHESIA ORDERABLES Devika l Result * MS AN ELECTIVE ENDOTRACHEAL AIRWAY, MS AN PROCEDURE PLACEHOLDER (05/13/2020 8:03 AM CDT) Kimber Lawton CRNA - 05/13/2020 8:03 AM CDT Kimber Jones CRNA ? 05/13/2020 ??8:05 AM Airway Patient location: OR Urgency: elective Date/time: 05/13/2020 7:41 AM Indications for airway management: anesthesia and airway protection Difficult airway: no Staff: Supervising provider: Gonzalo Araya MD Placed by: VIRTUALIZATION ENGINEER: Kimber Jones CRNA Emergent airway documentation: Risks and benefits discussed: yes Consent obtained: yes Consent given by: patient Airway prep: Preoxygenated: yes Patient position: sniffing Mask difficulty assessment: 1 - vent by mask Spontaneous ventilation during airway: absent Sedation level during airway: GA Final airway details: Final airway type: endotracheal airway Tube type: ETT ETT size: 7.0 mm Cuffed: yes Technique used for successful ETT placement: video laryngoscopy Devices/Methods used in placement: intubating stylet and anterior pressure/BURP Insertion site: oral Blade type: Marci Video blade type: CMAC Blade size: 3 Cormack-Lehane (direct): grade III - view of epiglottis only Cormack-Lehane (video): grade IIa - partial view of glottis Cuff volume: 7 mL Cuff inflated with: air ETT to lips: 21 cm Placement verified by: auscultation and CO2 detection Airway secured with: silk tape Number of attempts: 1 Result [facility] Gonzalo Araya MD ANESTHESIA ORDERABLES Devika l Result documented in this encounter Visit Diagnoses Not on filedocumented in this encounter Administered Medications Inactive Administered Medications - up to 3 most recent administrations Medication Order MAR Action Action Date Dose Rate Site ceFAZolin (ANCEF) injection intravenous, Administer over 3 Minutes, As needed, Starting on Wed05/13/20 at 0754, Anesthesia Intra-op Given 05/13/2020 7:54 AM CDT 2,000 mg dexAMETHasone (DECADRON) 4 mg/mL injection Administer over 2 Minutes, As needed, Starting on Wed05/13/20 at 0822, Anesthesia Intra-op Given 05/13/2020 8:22 AM CDT 4 mg famotidine (PEPCID) injection Administer over 2 Minutes, As needed, Starting on Wed05/13/20 at 0728, Anesthesia Intra-op Given 05/13/2020 7:28 AM CDT 20 mg fentaNYL (SUBLIMAZE) preservative free injection intravenous, As needed, Starting on Wed05/13/20 at 0738, Anesthesia Intra-op Given 05/13/2020 8:14 AM CDT 150 mcg Given 05/13/2020 7:38 AM CDT 100 mcg glycopyrrolate (ROBINUL) injection intravenous, Administer over 1 Minutes, As needed, Starting on Wed05/13/20 at 0756, Anesthesia Intra-op Given 05/13/2020 7:56 AM CDT 0.2 mg heparin 5,000 unit/mL injection As needed, Starting on Wed05/13/20 at 0802, Anesthesia Intra-op Given 05/13/2020 8:02 AM CDT 5,000 Units ketorolac (TORADOL) injection As needed, Starting on Wed05/13/20 at 1113, Anesthesia Intra-op Given 05/13/2020 11:13 AM CDT 30 mg Lactated Ringer's (LR) infusion 30 mL/hr, intravenous, Continuous, Starting on Wed05/13/20 at 0630, Pre-Op New Bag 05/13/2020 6:14 AM CDT Lactated Ringer's (LR) infusion Continuous PRN, Starting on Wed05/13/20 at 0740, Anesthesia Intra-op New Bag 05/13/2020 7:40 AM CDT lidocaine (LTA) 4 % laryngotracheal solution As needed, Starting on Wed05/13/20 at 0741, Anesthesia Intra-op Given 05/13/2020 7:41 AM CDT 4 mL lidocaine PF (XYLOCAINE) 10 mg/mL (1 %) preservative free injection As needed, Starting on Wed05/13/20 at 0738, Anesthesia Intra-op Given 05/13/2020 7:38 AM CDT 40 mg methadone (DOLOPHINE) injection As needed, Starting on Wed05/13/20 at 0754, Anesthesia Intra-op Given 05/13/2020 7:54 AM CDT 10 mg midazolam (VERSED) preservative free injection intravenous, Administer over 2 Minutes, As needed, Starting on Wed05/13/20 at 0728, Anesthesia Intra-op Given 05/13/2020 7:28 AM CDT 2 mg ondansetron (ZOFRAN) injection intravenous, Administer over 2 Minutes, As needed, Starting on Wed05/13/20 at 0728, Anesthesia Intra-op Given 05/13/2020 11:09 AM CDT 4 mg Given 05/13/2020 7:28 AM CDT 4 mg phenylephrine (JAXON-SYNEPHRINE) 5 mg/50 mL (100 mcg/mL) in sodium chloride 0.9% (premix) Continuous PRN, Starting on Wed05/13/20 at 0749, Anesthesia Intra-op New Bag 05/13/2020 7:49 AM CDT 0.5 mcg/kg/min 21.2 mL/hr propofoL (DIPRIVAN) IV intravenous, As needed, Starting on Wed05/13/20 at 0738, Anesthesia Intra-op Given 05/13/2020 7:38 AM CDT 150 mg rocuronium (ZEMURON) injection intravenous, As needed, Starting on Wed05/13/20 at 0739, Anesthesia Intra-op Given 05/13/2020 10:21 AM CDT 20 mg Given 05/13/2020 9:22 AM CDT 20 mg Given 05/13/2020 8:20 AM CDT 20 mg sugammadex (BRIDION) 100 mg/mL intravenous solution As needed, Starting on Wed05/13/20 at 1109, Anesthesia Intra-op Given 05/13/2020 11:09 AM CDT 200 mg documented in this encounter Care Teams Lip And Gate Builder Relationship Specialty Start Date End Date Elizabeth Borrego PA [address] [facility] [address] [place] [address] PCP - General Internal Medicine 03/25/20 09/27/23 Luann Lawrence NP Nurse Practitioner Nurse Practitioner 01/06/19 Adarsh Tuttle MD [address] [facility] [address] [place] [address] Consulting Physician Gastroenterology 02/22/19 Sebastien Martinez DO [address] [place] [address] Medical Oncologist/Fur Sewer Hematology and Oncology 02/22/19 Guru Winters DO [address] [place] [address] Consulting Physician Gastroenterology 02/22/19 Gato Abrams MD [address] [place] [address] [id number] Surgeon Surgical Oncology 09/07/19 documented as of this encounter
--- OUTSIDE RECORDS SUMMARY | 2024-10-04 03:04 | XMS_ITS | Encounter Summary ---
Author Organization [facility] Healthcare Address [address] [place] [address] Care Team Providers Care Print Designer Name Role Phone Luann Lawrence NP Unavailable [phone] Adarsh Tuttle MD Unavailable [phone] Sebastien Martinez DO Unavailable Guru Winters DO Unavailable [phone] Gato Abrams MD Unavailable [phone] Elizabeth Borrego Primary Care Provider [phone] Encounter Details Date Type Department Care Team (Late st Contact Info) Description 05/10/2020 8:00 PM CDT Lab [address] [address] Social History Tobacco Use Types Packs/Day Years [...] on file 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 Gender Identity Female 06/07/2020 8:39 AM CDT Sexual Orientation Not on file 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 The 2018-Novel Coronavirus Assay (COVID-19) Real Time RT-PCR assay [...] Interpretive Data was last revised on 2020. Nasopharyngeal 05/10/2020 2: 13 PM CDT 05/11/2020 3:08 AM CDT us Marina Rosales MD LAB MICROBIOLOGY - GENERAL ORD ERABLES Final Result [facility] [place] [address] documented in this encounter Visit Diagnoses Not on filedocumented in this encounter Care Teams Print Designer Relationship Specialty Start Date End Date Elizabeth Borrego PA [address] [place] [address] PCP - General Internal Medicine 03/25/20 09/27/23 Luann Lawrence NP Nurse Practitioner Nurse Practitioner 01/06/19 Adarsh Tuttle MD [address] [facility] [address] [place] [address] Consulting Physician Gastroenterology 02/22/19 [place] [address] [place] [address] Medical Oncologist/Supervisor Order Takers Hematology and Oncology 02/22/19 Guru Winters DO [address] [place] [address] Consulting Physician Gastroenterology 02/22/19 Gato Abrams MD [address] [place] [address] Surgeon Surgical Oncology 09/07/19 documented as of this encounter
--- OUTSIDE RECORDS SUMMARY | 2024-10-04 03:04 | XMS_ITS | Encounter Summary ---
Author Organization [facility] Healthcare Address [address] [place] [address] Care Team Providers Care Desk Attendant Name Role Phone Luann Lawrence NP Unavailable Adarsh Tuttle MD Unavailable [phone] Sebastien Martinez DO Unavailable Guru Winters DO Unavailable [phone] Gato Abrams MD Unavailable [phone] Elizabeth Borrego Primary Care Provider [phone] Encounter Details Date Type Department Care Team (Late st Contact Info) Description 04/29/2020 2:21 PM CDT Anesthesia Event [facility] [place] [address] [facility] [address] [place] [address] Olivia Beal MD PhD [address] [place] [address] Babita Cunningham CRNA [address] [place] [address] Anesthesia Record Procedure Summary Procedure Name Responsible Anesthesiologist Anesthesia Start Time Anesthesia Stop Time US Endoscopy wuprep per Thuy move to Olivia Guerra MD PhD 04/29/20 1421 04/29/20 1501 Events Date Time Event Comment 04/29/2020 1404 1421 An Start 1421 An Start Data 1421 Start Supplemental O2 1421 An Data Art 1422 In Room 1425 Patient Positioned Laterally 1425 An Induction The patient was reevaluated immediately before moderate or deep sedation use and before anesthesia induction. 1432 Proc Start 1445 Proc Fin 1454 an stop data 1455 Out of Room 1500 Handoff to RN I completed my handoff [...] Patient disposition at the time of handoff: phase II 1501 An Stop 1530 Release from care Meds Name Total propofol 120 mg propofol 157.74 mg lidocaine 2 % PF 60 mg sodium chloride 0.9% infusion 700 mL * Agents Name O2% N2O O2 * Blood No blood administrations on file. Lines, Drains, and Airways Type Details Placement Removal Peripheral IV Placement Date: 08/23/19; Placement Time: 1407 (created via procedure documentation); Catheter Size: 16 G; Orientation: Right; Location: Hand; Site Prep: Alcohol; Insertion Attempts: 1; Removal Date: 05/02/20; Removal Time: 0000 08/23/19 1407 by Bam Girard MD 05/02/20 0000 by Alfredo Damon, [facility] RETIRED Surgical Site 08/23/19; 1434; Abdomen; SURGICAL TROCAR ACCESS SITES X5; 09/19/24 (Retired LDA, Removed/Completed by [facility] with LDA Utility); 1213 (Retired LDA, Removed/Completed by [facility] with LDA Utility) 08/23/19 1434 by Christoph Parker RN 09/19/24 1213 by Discharge Provider, Automatic Peripheral IV Placement Date: 04/29/20; Placement Time: 1358; Catheter Size: 22 G; Orientation: Right, Posterior; Location: Hand; Site Prep: Chlorhexidine; Technique: Anatomical landmarks; Inserted by: Berta Chaney RN; Insertion Attempts: 1; Patient Tolerance: Tolerated well; Removal Date: 04/29/20; Removal Time: 1526 04/29/20 1358 by Berta Chaney RN 04/29/20 1526 by Konrad Tyson RN documented in this encounter Social History [...] on file 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 Gender Identity Female 06/07/2020 8:39 AM CDT Sexual Orientation Not on file 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 Not on file Not on mikie e documented as of this encounter OR Notes * Anesthesia Postprocedure Evaluation - Becky Sanchez MLT - 04/29/2020 3:30 PM CDT Patient: Fabiola Gibson Procedure Summary Date: 04/29/20 Room / Location: [facility] ENDOSCOPY ROOM 9 / [facility] ENDOSCOPY Anesthesia Start: 1421 Anesthesia Stop: 1501 Procedure: US Endoscopy wuprep per Thuy move to Kevin (N/A ) Diagnosis: Submucosal lesion of stomach (Submucosal lesion of stomach [K31.89]) Provider: Agustin Brown MD Responsible Provider: Olivia Beal MD PhD Anesthesia Type: MAC ASA Status: 2 Anesthesia Type: MAC Last vitals BP 109/62 Pulse (!) 47 Temp 36.4 ??C (97.5 ??F) (Temporal) Resp 15 SpO2 98% Anesthesia Post Evaluation Patient location during evaluation: PACU Patient participation: complete - patient participated Level of consciousness: fully awake Pain score: 0 Pain management: adequate Airway patency: adequate Evidence of recall: no Anesthetic complications: no Cardiovascular status: acceptable and hemodynamically stable Respiratory status: acceptable and room air Hydration status: acceptable Pt is: normothermic Nausea/Vomiting status: none Cosigned by Olivia Beal MD PhD at 04/30/2020 8:26 AM CDT * Anesthesia Preprocedure Evaluation - Becky Sanchez MLT - 04/29/2020 1:58 PM CDT Images from the original note were not included. Anesthesia Evaluation Fabiola Gibson is a 54 y.o. female Procedure(s): US Endoscopy wuprep per Thuy llamas to [facility] Pre-Op Diagnosis Codes: * Submucosal lesion of stomach [K31.89] Patient Active Problem List Diagnosis ??? Malignant [...] (WELLBUTRIN XL) 150 mg 24 hr tablet 04/28/2020 03/25/20 -- NBA Bryan Take 1 tablet (150 mg total) by mouth every morning cholecalciferol (VITAMIN D3) 1,000 unit capsule 04/28/2020 -- -- Historical Provider, cyanocobalamin (Vitamin B-12) 1,000 mcg/mL injection Past Week 12/25/19 -- Sebastien Martinez, DO Inject 1 mL (1,000 mcg total) into the muscle as instructed every 30 (thirty) days escitalopram (LEXAPRO) 10 mg tablet 04/28/2020 03/25/20 -- NBA Bryan Take 1 tablet (10 mg total) by mouth every morning hydroxychloroquine (PLAQUENIL) 200 mg tablet 04/28/2020 01/30/19 -- Historical Provider, insulin syringe-needle U-100 1 mL 29 gauge x 1/2 syringe 07/25/19 -- Sebastien Martinez, DO 1 Syringe every 30 (thirty) days multivitamin capsule 04/28/2020 -- -- Historical Provider, pravastatin (PRAVACHOL) 40 mg tablet 04/28/2020 03/25/20 -- NBA Bryan Take 1 tablet (40 mg total) by mouth every morning valsartan-hydroCHLOROthiazide (DIOVAN-HCT) 160-12.5 mg per tablet 04/29/2020 03/25/20 -- NBA Bryan Take 1 tablet by mouth daily Current Facility-Administered Medications: ??? sodium chloride 0.9% flush 0.5-20 mL, 0.5-20 mL, intra-catheter, PRN ??? sodium chloride 0.9% infusion, 30 mL/hr, intravenous, Continuous Social History Tobacco Use Smoking Status Former Smoker ??? Packs/day: 1.00 ??? Years: 2.00 ??? Pack years: 2.00 ??? Start date: 1996 ??? Last attempt to quit: 1998 ??? Years since quittin.5 Smokeless Tobacco Never Used Substance and Sexual Activity Alcohol Use Yes ??? Alcohol/week: 2.0 - 3.0 standard drinks ??? Types: 2 - 3 Cans of beer per week Substance and Sexual Activity Drug Use Never Family History Problem Relation Age of Onset ??? Dementia Mother ??? Emphysema Father ??? Other (Congestive Heart Failure) Father ??? No Known Problems Sister ??? Heart attack Brother ??? Ovarian cancer Mother's Sister ??? Colon cancer Mother's Brother ??? Cancer Maternal Grandmother Vitals: 04/29/20 1355 BP: 109/59 Pulse: 50 Resp: 13 Temp: 36.1 ??C (97 ??F) SpO2: 96% PT: No results found for requested labs [...] for requested labs within last 720 hours. DOS Physical Exam Medical history, medications, and allergies reviewed. Attestation: With today's edits, I endorse the findings of the procedural assessment dated: 04/29/2020. Airway Exam: Mallampati: III Cardiovascular Exam: Rate: bradycardia Current state: Patient's current state is cooperative. Additional comments: See GI Physicians H&P Anesthesia Plan ASA 2 My patient is approved for the Anesthesia Controlled Medication protocol when under care of a DIAGNOSTICS SALES DEVELOPER Planned anesthesia: MAC Induction: Induction: intravenous. Postoperative Plan: Patient's planned disposition post procedure is Outpatient. Informed Consent: Discussed plan with DIAGNOSTICS SALES DEVELOPER. Anesthesia plan and risks discussed with patient. Plan and Consent Comments: NPO status confirmed Becky Staley, luna scribing for, and in the presence of Dr. Beal. . Consent and Attending signature: I and/or my designee have discussed the anesthesia plan, benefits, possible alternatives, parental presence at time of induction (if indicated), and clinically relevant risks that may include dental injury, unintentional awareness, and/or other complications. The patient and/or parent/legal guardian understand, and agree to proceed. All questions answered. Cosigned by Olivia Beal MD PhD at 04/29/2020 2:04 PM CDT documented in this encounter Plan of Treatment Not on file documented as of this encounter Visit Diagnoses Not on filedocumented in this encounter Administered Medications Inactive Administered Medications - up to 3 most recent administrations Medication Order MAR Action Action Date Dose Rate Site lidocaine (XYLOCAINE) 20 mg/mL (2 %) preservative free injection As needed, Starting on Wed04/29/20 at 1425, Anesthesia Intra-op Given 04/29/2020 2:25 PM CDT 60 mg propofoL (DIPRIVAN) IV intravenous, As needed, Starting on Wed04/29/20 at 1425, Anesthesia Intra-op Given 04/29/2020 2:30 PM CDT 40 mg Given 04/29/2020 2:27 PM CDT 40 mg Given 04/29/2020 2:25 PM CDT 40 mg propofoL (DIPRIVAN) IV intravenous, Continuous PRN, Starting on Wed04/29/20 at 1425, Anesthesia Intra-op New Bag 04/29/2020 2:25 PM CDT 110 mcg/kg/min 47.32 mL/hr sodium chloride 0.9% infusion 30 mL/hr, intravenous, Continuous, Starting on Wed04/29/20 at 1430, Pre-Procedure (GI) Rate/Dose Verify 04/29/2020 2:21 PM CDT 30 mL/hr New Bag 04/29/2020 2:03 PM CDT 30 mL 30 mL/hr documented in this encounter Care Teams Desk Attendant Relationship Specialty Start Date End Date Elizabeth Borrego PA [address] [place] [address] PCP - General Internal Medicine 03/25/20 09/27/23 Luann Lawrence, ANUP Nurse Practitioner Nurse Practitioner 01/06/19 Adarsh Tuttle MD [address] [facility] [address] [place] [address] Consulting Physician Gastroenterology 02/22/19 Sebastien Martinez DO [address] [place] [address] [address] [place], [place] [address] Medical Oncologist/Barrel Lapper Hematology and Oncology 02/22/19 Guru Winters DO [address] [place] [address] [id number] Consulting Physician Gastroenterology 02/22/19 Gato Abrams MD [address] [place] [address] [id number] Surgeon Surgical Oncology 09/07/19 documented as of this encounter
--- OUTSIDE RECORDS SUMMARY | 2024-10-04 03:04 | XMS_ITS | Encounter Summary ---
Author Organization [facility] Healthcare Address [address] [place] [address] Care Team Providers Care Hotel Baggage Handler Name Role Phone Luann Lawrence NP Unavailable [phone] Adarsh Tuttle MD Unavailable [phone] Sebastien Martinez DO Unavailable [phone] Guru Winters DO Unavailable [phone] Gato Abrams MD Unavailable Elizabeth Borrego Primary Care Provider [phone] Encounter Details Date Type Department Care Team (Late st Contact Info) Description 05/13/2020 7:30 AM CDT - 05/13/2020 12:45 PM CDT Surgery [facility] Operating Room [address] [place] [phone] Marina Rosales MD [address] [address] Robotic retrorectus ventral incisional hernia repair with mesh Surgery Details Date/Time Status Location OR Service Patient Class Case Cl ass Case Type Trauma Case? 05/13/2020 7:30 AM Posted [facility] OR POD 1 326 Minimally Invasive Surgery Outpatient in Bed Elective Panel 1 Procedure LRB Anes Op Region Wound Class Comments Robotic retrorectus ventral incisional hernia repair with mesh N/A General Abdomen Class I - Clean Surgeon Surgeon Role Service Panel Marina Rosales MD Primary Minimally Invasive [facility] 1 Abhijeet Gabriel MD Resident - Assisting General [facility] [address] 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 Not on file Not on file Not on mikie e documented as of this encounter Last Filed Vital Signs Vital Sign Reading Time Taken Comments Blood Pressure 101/57 05/13/2020 12:10 PM CDT Pulse 59 05/13/2020 12:17 PM CDT Temperature 37.1 ??C (98.8 ??F) 05/13/2020 11:30 AM C DT Respiratory Rate 10 05/13/2020 12:17 PM CDT Oxygen Saturation 94% 05/13/2020 12:17 PM CDT Inhaled Oxygen Concentration - - Weight 70.8 kg (156 lb) 05/13/2020 12:55 AM CDT Height 162.6 cm (5' 4 ) 05/13/2020 12:55 AM CDT Body Mass Index 26.76 05/13/2020 1:01 PM CDT documented in this encounter Discharge Summaries * Katy Marino NP - 05/14/2020 9:39 AM CDT Inpatient Discharge Summary BRIEF OVERVIEW Admitting Provider: Marina Rosales MD Discharge Provider: Marina Rosales MD Primary Care Physician at Discharge: NBA Bryan [phone] Admission Date: 05/13/2020 Discharge Date: 05/15/2020 Admission Location: [facility] Problems/Diagnoses: Principal Problem: Incisional hernia, without obstruction or gangrene Active Problems: Malignant carcinoid tumor of stomach (CMS/HCC) Carcinoid tumor of stomach Pernicious anemia Iron deficiency anemia due to chronic blood loss HTN (hypertension), benign Dyslipidemia LBBB (left bundle branch block) 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 DETAILS OF HOSPITAL STAY Presenting Problem/History of Present Illness: Fabiola Gibson is a 54 y.o. female who presents for surgical intervention with Dr Rosales for an incisional hernia repair. Hospital Course: Fabiola Gibson is a 54 y.o. female who presents for surgical intervention with Dr Rosales for an incisional hernia repair. The patient underwent a Robotic incisional hernia repair. The patient was placed on pain medications which controlled the patients pain. The patient was placed on Heparin and SCD for DVT prophylactics. The patient was started on a clear liquid diet and advanced to a regular diet which the patient tolerated. The patient had return of bowel function. Once the patient was tolerating diet, ambulating in hallway, pain controlled the patient was stable for discharge. Active Issues Requiring Follow-up: Follow up with Dr Rosales in 3-4 weeks Test Results Pending at Discharge: none Operative Procedures Performed: Procedure(s): Robotic retrorectus ventral incisional hernia repair with mesh Other Procedures: none Pertinent Test Results: none Discharge Details Physical Exam at Discharge: Discharge Condition: stable Pulse: 50 Resp: 14 BP: 113/62 Temp: 36.6 ??C (97.9 ??F) Weight: 70.8 kg (156 lb) Pertinent Exam Findings at Discharge: Physical Exam: General: in no acute distress, alert HEENT: moist mucous Chest: non-labored breathing Heart: regular rate and rhythm Abdomen: soft, non-distended Extremity: warm and well perfused Wound: clean, dry and intact Discharge Disposition: Discharge to home or self care Code Status at Discharge: full Discharge Instructions: Activity Instructions Discharge Activity: Driving restrictions -Do not drive while taking pain medications. Discharge Activity: Lifting restrictions -Do NOT lift greater than 10 pounds for 4 weeks. Discharge Activity: Stairs -You may climb stairs as tolerated Discharge Activity: Walking -You may walk as tolerated. Diet Instructions Adult Discharge Diet Diet Type: Return to previous diet Instructions for follow-up (appointment date and time): regular diet Other Instructions Call provider for: increased temperature -Temperature greater than 101 degrees F Call provider for: nausea, vomiting, diarrhea -If you have persistent nausea, vomiting or diarrhea that does not stop Call provider for: redness, tenderness, or signs of infection (pain, swelling, redness, odor or green/yellow discharge around incision site) Call provider for: severe uncontrolled pain Call provider for: any other concerns or questions Call the doctor's officer at for questions or concerns. The office is open Wednesday-Wednesday from 8:00 AM - 4:00 PM. If you need to talk with a doctor after hours or on a weekend or holiday, call . Call provider if: you feel dizzy, very tired or like you may faint Care Instructions: Abdominal binder -Wear the abdominal binder day/night for 4 week(s). May remove to shower. May remove to wash the binder. Care Instructions: Incentive Spirometer - Continue to use your incentive spirometer Care Instructions: Incisions -Keep incisions clean and dry Care Instructions: No tub baths -No tub baths, whirlpools or swimming until your provider says it's ok. Care Instructions: Shower -You may shower in 2 days after surgery. Discharge Wound Type: Open to air -You may leave your incision open to air Discharge Wound Type: Skin Glue Special glue has been placed on your incision. It will flake off over 1 week. Do not pick, scratch or rub. This may cause it to come off before your incision has healed. Discharge Medications: Current Medications TAKE these medications acetaminophen ER 650 mg 8 hr tablet Take 1,300 mg by mouth every 8 (eight) hours as needed for pain Commonly known as: TYLENOL buPROPion XL 150 mg 24 hr tablet Take 1 tablet (150 mg total) by mouth every morning For: anxiousness associated with depression Commonly known as: WELLBUTRIN XL cyanocobalamin 1,000 mcg/mL injection Inject 1 mL (1,000 mcg total) into the muscle as instructed every 30 (thirty) days Commonly known as: Vitamin B-12 escitalopram 10 mg tablet Take 1 tablet (10 mg total) by mouth every morning For: anxiousness associated with depression Commonly known as: LEXAPRO hydrOXYchloroQUINE 200 mg tablet Take 400 mg by mouth early childhood associate teacher before breakfast For: arthritis Commonly known as: PLAQUENIL Imodium A-D 2 mg tablet Take 2 mg by mouth 3 (three) times a day as needed for diarrhea For: diarrhea Generic drug: loperamide insulin syringe-needle U-100 1 mL 29 gauge x 1/2 syringe 1 Syringe every 30 (thirty) days multivitamin capsule Take 1 capsule by mouth early childhood associate teacher before breakfast For: treatment to prevent vitamin deficiency octreotide LAR 20 mg suspension,extended rel recon Inject 20 mg into the muscle as instructed every 28 (twenty-eight) days Pt unsure of dosage 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 Commonly known as: SandoSTATIN LAR oxyCODONE 5 mg capsule Take 5 mg by mouth every 4 (four) hours as needed for moderate pain (pain scale 5-7) For: pain Commonly known as: OXY-IR polyethylene glycol 17 gram packet Take 17 g by mouth daily as needed for constipation For: constipation Commonly known as: MIRALAX pravastatin 40 mg tablet Take 1 tablet (40 mg total) by mouth every morning For: excessive fat in the blood Commonly known as: PRAVACHOL valsartan-hydroCHLOROthiazide 160-12.5 mg per tablet Take 1 tablet by mouth daily For: high blood pressure Commonly known as: DIOVAN-HCT Vitamin D3 1,000 unit capsule Take 2,000 Units by mouth early childhood associate teacher before breakfast For: low vitamin D levels Generic drug: cholecalciferol Outpatient Follow-Up: Future Appointments Date Time Provider Department [facility] 05/31/2020 3:15 PM LAB, E ONC ONC LAB [facility] 05/31/2020 3:45 PM FAST TRACK RN E ONC INF [facility] ONC INF 06/03/2020 1:00 PM [facility] 06[facility]07/2020 10:45 AM Sebastien Martinez DO ONC [facility] On[facility] 08/26/2020 12:00 PM [facility] 08/26/2020 1:00 PM Gato Abrams MD [facility] CAM 8C [facility] 10/01/2020 9:45 AM Rowdy Marroquin MD MG CAR [facility] 10/01/2020 1:45 PM NBA Bryan FM [facility] Cosigned by Marina Rosales MD at 05/15/2020 2:33 PM CDT documented in this encounter Medications at Time of Discharge cholecalciferol (VITAMIN D-3) 1,000 unit capsuleIndicatio ns:Vitamin D Deficiency Take 2 capsules (2,000 Units total) by mouth early childhood associate teacher before breakfast acetaminophen ER (TYLENOL) 650 mg 8 hr tablet Take 1,300 mg by mouth every 8 (eight) hours as needed for pain 0 buPROPion XL (WELLBUTRIN XL) 150 mg 24 hr tabletIndication s:Anxiety with Depression Take 1 tablet (150 mg total) by mouth every morning 90 tablet 1 03/25/2020 0 cyanocobalamin (Vitamin B-12) 1,000 mcg/mL injection Inject 1 mL (1,000 mcg total) into the muscle as instructed every 30 (thirty) days 3 mL 2 12/25/2019 1 escitalopram (LEXAPRO) 10 mg tabletIndication s:Anxiety with Depression Take 1 tablet (10 mg total) by mouth every morning 90 tablet 1 03/25/2020 0 hydroxychloroqui ne (PLAQUENIL) 200 mg tabletIndication s:Arthritis Take 1 tablet (200 mg total) by mouth early childhood associate teacher before breakfast 01/30/2019 3 insulin syringe-needle U-100 1 mL 29 gauge x 1/2 syringe 1 Syringe every 30 (thirty) days 30 each 1 2019 0 loperamide (Imodium A-D) 2 mg tabletIndication s:diarrhea Take 2 mg by mouth 3 (three) times a day as needed for diarrhea 0 multivitamin capsuleIndicatio ns:Vitamin Deficiency Prevention Take 1 capsule by mouth early childhood associate teacher before breakfast 4 octreotide LAR (SandoSTATIN LAR) 20 mg suspension,exten ded rel reconIndications :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 Inject 10 mg into the muscle as instructed every 28 (twenty-eight) days Pt unsure of dosage 2 oxyCODONE (OXY-IR) 5 mg capsuleIndicatio ns:Pain Take 5 mg by mouth every 4 (four) hours as needed for moderate pain (pain scale 5-7) 0 polyethylene glycol (MIRALAX) 17 gram packetIndication s:constipation Take 17 g by mouth daily as needed for constipation 0 pravastatin (PRAVACHOL) 40 mg tabletIndication s:hyperlipidemia Take 1 tablet (40 mg total) by mouth every morning 90 tablet 1 03/25/2020 0 valsartan-hydroC HLOROthiazide (DIOVAN-HCT) 160-12.5 mg per tabletIndication s:hypertension Take 1 tablet by mouth daily 90 tablet 1 03/25/2020 0 documented as of this encounter Ordered Prescriptions Prescription Sig Dispense Quantity Refills Last Filled Start Date End Date oxyCODONE (OXY-IR) 5 mg capsule Take 1 capsule (5 mg total) by mouth every 6 (six) hours as needed (Pain) 05/14/2020 0 documented in this encounter Discharge Disposition Disposition Code Departure Means Destination Discharge to home or self care documented in this encounter Progress Notes * Buddy Valdez MD PhD - 05/15/2020 9:42 AM CDT [facility] Minimally Invasive Surgery Daily Progress Note SUBJECTIVE: Interval History: Patient remains stable. - started to pass gas OBJECTIVE: Vitals / I/O: 24hr Min/Max: Temp Min: 36.4 ??C (97.5 ??F) Max: 36.7 ??C (98.1 ??F) Pulse Min: 50 Max: 56 BP Min: 90/55 Max: 113/62 Resp Min: 14 Max: 16 SpO2 Min: 93 % Max: 98 % Vitals: 05/14/20 2045 05/15/20 0020 05/15/20 0410 05/15/20 0725 BP: 90/55 105/59 92/55 113/62 BP Location: Right arm Right arm Right arm Right arm Patient Position: Lying Lying Lying Lying Pulse: 54 53 52 50 Resp: 16 16 16 14 Temp: 36.7 ??C (98.1 ??F) 36.5 ??C (97.7 ??F) 36.5 ??C (97.7 ??F) 36.6 ??C (97.9 ??F) TempSrc: Oral Oral Oral Oral SpO2: 94% 94% 96% 98% Weight: Height: I/O last 3 completed shifts: In: 1500 [P.O.:1500] Out: 2500 [Urine:2500] Physical Exam: General NAD, awake, alert, oriented Neuro Moving all extremities, no focal deficits Psych Appropriate mood and affect HEENT NCAT, EOMI Cardio Regular rate and rhythm Pulm Breathing comfortably on room air, CTAB GI soft, non-distended, non-tender, incisions clean,dry, intact Extremities Warm, well perfused Labs: Lab Results Component Value Date WBC 5.7 05/13/2020 HGB 11.0 (L) 05/13/2020 HCT 32.8 (L) 05/13/2020 MCV 87.9 05/13/2020 LABPLAT 216 05/13/2020 Chemistry Lab Results Component Value Date SODIUM 143 05/13/2020 POTASSIUM 4.0 05/13/2020 CHLORIDE 110 05/13/2020 CO2 27 05/13/2020 ANIONGAP 6 05/13/2020 BUNSER 14 05/13/2020 CREATININE 0.82 05/13/2020 GLUCOSE 129 05/13/2020 CALCIUM 8.3 (L) 05/13/2020 ASSESSMENT/PLAN: 54 y.o. F POD2 s/p robotic repair of ventral incisional hernia w/ mesh. - patient has oxy for pain at home - to be discharged today Buddy Valdez MD PhD Cosigned by Marina Rosales MD at 05/15/2020 2:33 PM CDT * Buddy Valdez MD PhD - 05/14/2020 3:15 PM CDT [facility] Minimally Invasive Surgery Daily Progress Note SUBJECTIVE: Interval History: Patient remains stable. Patient is having appropriate post-surgical pain (3/10 intensity) that is well controlled. No complaints of N/V.. Still awaiting bowel function.. Patient has ambulating without issues. OBJECTIVE: Vitals / I/O: 24hr Min/Max: Temp Min: 36.3 ??C (97.3 ??F) Max: 36.7 ??C (98.1 ??F) Pulse Min: 49 Max: 56 BP Min: 92/56 Max: 106/63 Resp Min: 10 Max: 14 SpO2 Min: 93 % Max: 99 % Vitals: 05/14/20 0924 05/14/20 0949 05/14/20 1110 05/14/20 1510 BP: 97/67 104/55 95/56 101/46 BP Location: Right arm Left arm Patient Position: HOB 30 degrees Sitting Pulse: 50 50 56 55 Resp: 14 14 Temp: 36.4 ??C (97.5 ??F) 36.6 ??C (97.9 ??F) TempSrc: SpO2: 98% 98% 95% 93% Weight: Height: I/O last 3 completed shifts: In: 3778.3 [P.O.:1500; I.V.:2278.3] Out: 975 [Urine:975] Physical Exam: General NAD, awake, alert, oriented Neuro Moving all extremities, no focal deficits Psych Appropriate mood and affect HEENT NCAT, EOMI Cardio Regular rate and rhythm Pulm Breathing comfortably on room air GI soft, non-distended, non-tender Skin Incisions clean,dry, intact Extremities Warm, well perfused Labs: Lab Results Component Value Date WBC 5.7 05/13/2020 HGB 11.0 (L) 05/13/2020 HCT 32.8 (L) 05/13/2020 MCV 87.9 05/13/2020 LABPLAT 216 05/13/2020 Chemistry Lab Results Component Value Date SODIUM 143 05/13/2020 POTASSIUM 4.0 05/13/2020 CHLORIDE 110 05/13/2020 CO2 27 05/13/2020 ANIONGAP 6 05/13/2020 BUNSER 14 05/13/2020 CREATININE 0.82 05/13/2020 GLUCOSE 129 05/13/2020 CALCIUM 8.3 (L) 05/13/2020 ASSESSMENT/PLAN: 54 y.o. F POD1 s/p robotic retrorectus ventral incisional hernia repair w/ mesh. - Advance to regular diet - IS - continue tylenol & oxycodone for pain Buddy Valdez MD PhD Cosigned by Marina Rosales MD at 05/14/2020 3:46 PM CDT Associated attestation - Marina Rosales MD - 05/14/2020 3:46 PM CDT TEACHING ATTESTATION: I have seen and examined the patient along with the team and agree with the note and plan as documented above. Marina Rosales MD Minimally Invasive GI Surgery & Abdominal Wall Reconstruction theatre manager [facility] * Jules Toledo, PT - 05/14/2020 11:21 AM CDT Physical Therapy As supervising physical therapist, I agree with and cosign all documentation provided on this date by student physical therapist, Gilma Tidwell. Jules Toledo, PT 05/14/20 * Jocy De Oliveira RN - 05/14/2020 9:25 AM CDT 05/14/20 0923 Information Information Obtained From Patient (per phone interview) Referral Data Referral Source Dietitian Research Referral Reason Discharge Planning Prior to Admission Primary Caregiver Self Support System Children Support system contact info (name, phone, availablity) daughterleana peck [phone] Home Care Services No Durable Medical Equipment None Living Arrangements Alone Type of Residence Private residence Financial Resource Payor Source Commercial ([facility]) Potential Discharge Needs Anticipated discharge level of care Private residence Pt/Family agrees with Anticipated Level of Care Yes Patient expects to be discharged to: Private residence Dialysis No Behavioral Health Services No PCP: ayde ARANGO Pharm: [facility] Ins: [facility] Add: 05/14/20 Presented for surgery, pod 1 leah retrorectus vent inc HR with mesh. Plan pain control. No home careneeds indicated.Pt has family support for home, and for transportation at discharge. CM will continue to follow. Add 05/14/20 Problem-postop care Goal-safe dc home meeting postop milestones Based on a comprehensive family assessment, assistance with instrumental activities of daily livingafter discharge will be provided by daughter Through the course of our work I determined that daughter possesses the skill and ability to provide and monitor the care of the patient when he or she returns home. Daughter has the capacity to provide/monitor/arrange for the care of the patient. Finally, we determined that daughter has the knowledge of available resources and that combining them with their existing resources will suffice to sustain and care for the patient when he or she returns home. The treatment team is aware of this information. All are in agreement with the aftercare plan. For emergency needs from 4:31p.m. - 7:59a.m., please call the appetizer packer [phone]. For weekend/holiday needs from 8:00a.m. - 4:30p.m., please call the Weekend Dietitian Research . * Katy Marino NP - 05/13/2020 1:14 PM CDT General Surgery Daily Progress Subjective Chief complaint of post op day- 0 from Robotic retrorectus ventral incisional hernia repair with mesh. The patient denies CP/SOB/ palpations denies n/v. The patient reports discomfort pain 4/10 at abdomen. Current Facility-Administered Medications: ??? docusate sodium (COLACE) capsule 100 mg, 100 mg, oral, BID, Buddy Valdez MD PhD ??? heparin 5,000 unit/mL injection 5,000 Units, 5,000 Units, subcutaneous, Q8H [facility], Buddy Valdez MD PhD ??? oxyCODONE (ROXICODONE) tablet 5 mg, 5 mg, oral, Q4H PRN, Buddy Valdez MD PhD ??? sodium chloride 0.9% flush 0.5-20 mL, 0.5-20 mL, intra-catheter, Q8H [facility], Buddy Valdez MD PhD ??? sodium chloride 0.9% flush 0.5-20 mL, 0.5-20 mL, intra-catheter, PRN, Buddy Valdez MD PhD ??? sodium chloride 0.9% infusion, 100 mL/hr, intravenous, Continuous, Buddy Valdez MD PhD, Last Rate: 100 mL/hr at 05/13/20 1228, 100 mL/hr at 05/13/20 1228 Objective Physical Exam: Physical Exam: General: in no acute distress, alert HEENT: moist mucous Chest: non-labored breathing Heart: regular rate and rhythm Abdomen: soft, non-distended, abdominal binder on Extremity: warm and well perfused Wound: clean, dry and intact with Dermabond lap sites Lab/Radiology/Diagnostic Review: Laboratory review: Lab results in the last 12 hours: No results found for this or any previous visit (from the past 12 hour(s)). Imaging review:No recent results to review Vitals: 24hr Min/Max: Temp Min: 36.7 ??C (98.1 ??F) Max: 37.1 ??C (98.8 ??F) Pulse Min: 46 Max: 81 BP Min: 101/57 Max: 125/72 Resp Min: 7 Max: 15 SpO2 Min: 92 % Max: 98 % Most Recent : Vitals: 05/13/20 1301 BP: 107/60 Pulse: 52 Resp: 10 Temp: 36.7 ??C (98.1 ??F) SpO2: 98% No intake/output data recorded. I/O this shift: In: 1700 [I.V.:1700] Out: - Assessment /Plan Principal Problem: Incisional hernia, without obstruction or gangrene VS and I&O q 4 hours, IS, clear liquid with IV fluids Pain control with scheduled Tylenol 1 gram q 6 hours, prn oxycodone 5 mg q 4 hours prn DVT PPX with Heparin SQ and SCDs antiemetics prn for nausea control documented in this encounter H&P Notes * Abhijeet Gabriel MD - 05/13/2020 6:43 AM CDT I have reviewed the H&P, examined the patient, and endorse the findings as written. Plan of Care : Based on the above findings, I consider Fabiola Gibson to be an acceptable risk for : Procedure(s): XI REPAIR RETRORECTUS INCISIONAL HERNIA WITH MESH- LAPAROSCOPIC ROBOTIC ASSISTED Cosigned by Marina Rosales MD at 05/13/2020 7:17 AM CDT Associated attestation - Marina Rosales MD - 05/13/2020 7:17 AM CDT TEACHING ATTESTATION: I have seen and examined the patient along with the team and agree with the note and plan as documented above. Marina Rosales MD Minimally Invasive GI Surgery & Abdominal Wall Reconstruction theatre manager [facility] Source Note - Aleja Bedoya NP - 05/07/2020 3:43 PM CDT Images from the original note were not included. Center for Preoperative Assessment and Planning Preoperative Evaluation Record Evaluation type/location: CPAP [facility] Planned procedure site: [facility] OR (Pod 1) Date: 05/07/20 Anesthesia [...] LBBB and PACs. Pertinent negatives: CAD ; [place] ; CABG ; atrial fibrillation; pacemaker/ICD; DVT/PE; negative for CHF; drug-eluting stent(s); bare metal stent(s) and unknown stent(s) type Comments: Followed Dr. Marroquin. Last seen 03/08/2020. Respiratory Pertinent negatives: COPD; asthma and sleep apnea (KATIA) Hepatic / Heme + History of anemia (Pernicious anemia) - iron deficiency Pertinent negatives: liver disease; history of thrombocytopenia and history of José [...] status is STOP-Bang=2 suggesting low risk for KATAI. Blood bank needs for day of procedure: [...] scheduled to be performed on 05/10 at [facility] . Discussed case with CPAP attending: >History [...] B-12) 1,000 mcg/mL injection 12/25/19 -- Sebastien Martinez DO Inject 1 mL (1,000 mcg total) [...] taking differently: Take 1 tablet by mouth early childhood associate teacher before breakfast Current Outpatient Medications: ??? acetaminophen [...] Total Score: 2 Yadira index score: 100 documented in this encounter Miscellaneous Notes * Plan of Care - Mamie Gannon RN - 05/15/2020 7:39 AM CDT Goals: Clinical Goals for the Shift: pain control, discharge today Summary: in progress * Plan of Care - Roopa Rae RN - 05/14/2020 10:30 PM CDT Problem: Health Behavior: Goal: Understanding of discharge needs will improve Outcome: Progressing Problem: Activity: Goal: Ability to return to normal activity level will improve Outcome: Progressing Problem: Bowel/Gastric: Goal: Gastrointestinal status for postoperative course will improve Outcome: Progressing Problem: Lack of Knowledge: Goal: Understanding of discharge needs will improve Outcome: Progressing Problem: Fluid Volume: Goal: Ability to maintain a balanced intake and output will improve Outcome: Progressing Problem: Health Behavior: Goal: Identification of resources available to assist in meeting health care needs will improve Outcome: Progressing Problem: Nutritional: Goal: Ability to attain and maintain optimal nutritional status will improve Outcome: Progressing Problem: Physical Regulation: Goal: Postoperative complications will be avoided or minimized Outcome: Progressing Problem: Respiratory: Goal: Ability to maintain adequate ventilation will improve Outcome: Progressing Goal: Respiratory status will improve Outcome: Progressing Problem: Safety: Goal: Ability to remain free from injury will improve Outcome: Progressing Problem: Sensory: Goal: Pain level will decrease Outcome: Progressing Problem: Skin Integrity: Goal: Evidence of wound healing without infection will improve Outcome: Progressing Problem: Urinary Elimination: Goal: Will remain free from infection Outcome: Progressing Goal: Ability to achieve and maintain adequate urine output will improve Outcome: Progressing Goals: Clinical Goals for the Shift: pain control, monitor VS, rest Summary: * Plan of Care - [place] Child RN - 05/14/2020 5:52 PM CDT Goals: Clinical Goals for the Shift: Pain control/ tolerate regular diet Problem: Health Behavior: Goal: Understanding of discharge needs will improve Outcome: Progressing Problem: Activity: Goal: Ability to return to normal activity level will improve Outcome: Progressing Problem: Bowel/Gastric: Goal: Gastrointestinal status for postoperative course will improve Outcome: Progressing Summary: Patient is alert and oriended x4. VSS (HR deanna patients baseline and BP low but not symptomatic). Pain controlled by pain medications. Up ad donna; ambulates well. Bowel sounds active; incisions c/d/iOTA with abdominal binder applied. Tolerating regular diet; denies any nausea. Will continue to monitor. * Plan of Care - Diana Biggs RN - 05/13/2020 8:27 PM CDT Problem: Health Behavior: Goal: Understanding of discharge needs will improve Outcome: Progressing Problem: Activity: Goal: Ability to return to normal activity level will improve Outcome: Progressing Problem: Bowel/Gastric: Goal: Gastrointestinal status for postoperative course will improve Outcome: Progressing Problem: Lack of Knowledge: Goal: Understanding of discharge needs will improve Outcome: Progressing Problem: Fluid Volume: Goal: Ability to maintain a balanced intake and output will improve Outcome: Progressing Problem: Health Behavior: Goal: Identification of resources available to assist in meeting health care needs will improve Outcome: Progressing Problem: Nutritional: Goal: Ability to attain and maintain optimal nutritional status will improve Outcome: Progressing Problem: Physical Regulation: Goal: Postoperative complications will be avoided or minimized Outcome: Progressing Problem: Respiratory: Goal: Ability to maintain adequate ventilation will improve Outcome: Progressing Goal: Respiratory status will improve Outcome: Progressing Problem: Safety: Goal: Ability to remain free from injury will improve Outcome: Progressing Problem: Sensory: Goal: Pain level will decrease Outcome: Progressing Problem: Skin Integrity: Goal: Evidence of wound healing without infection will improve Outcome: Progressing Problem: Urinary Elimination: Goal: Will remain free from infection Outcome: Progressing Goal: Ability to achieve and maintain adequate urine output will improve Outcome: Progressing Goals: Clinical Goals for the Shift: Pain & nausea control/ Void/ tolerate clears/ Monitor Post op VS Summary: * Plan of Care - [place] Child RN - 05/13/2020 6:18 PM CDT Goals: Clinical Goals for the Shift: Pain & nausea control/ Void/ tolerate clears/ Monitor Post op VS Problem: Health Behavior: Goal: Understanding of discharge needs will improve Outcome: Progressing Problem: Lack of Knowledge: Goal: Understanding of discharge needs will improve Outcome: Progressing Problem: Physical Regulation: Goal: Postoperative complications will be avoided or minimized Outcome: Progressing Problem: Sensory: Goal: Pain level will decrease Outcome: Progressing Summary: Pt. Is oriented x4. VSS & Post op VS completed. Pain managed with medications. C/o some nausea towards the end of the shift. Voided. Tolerating CLD. Will continue to monitor. * Hospital Course - Katy Marino NP - 05/13/2020 12:24 PM CDT Fabiola Gibson is a 54 y.o. female who presents for surgical intervention with Dr Rosales for an incisional hernia repair. The patient underwent a Robotic incisional hernia repair. The patient was placed on pain medications which controlled the patients pain. The patient was placed on Heparin and SCD for DVT prophylactics. The patient was started on a clear liquid diet and advanced to a regular diet which the patient tolerated. The patient had return of bowel function. Once the patient was tolerating diet, ambulating in hallway, pain controlled the patient was stable for discharge. * Op Note - Marina Rosales MD - 05/13/2020 8:05 AM CDT [facility] Minimally Invasive Surgery Operative Report SURGEON: Marina Rosales MD SURGICAL TEAM: Surgeon(s) and Role: * Marina Rosales MD - Primary * Abhijeet Gabriel MD - Resident - Assisting DATE OF SURGERY: 05/13/2020 PREOPERATIVE DIAGNOSIS: Ventral incisional hernia. POSTOPERATIVE DIAGNOSIS: Ventral incisional hernia. PROCEDURE: 1. Robotic myofascial advancement flap of the posterior rectus sheath on the right. 2. Robotic myofascial advancement flap of the posterior rectus sheath on the left. 3. Robotic repair of ventral incisional hernia (Defect size: 4cm (length) by 3.5cm (width)). 4. Implantation of mesh (Mesh: Bard soft mesh; Mesh size: 24cm (length) by 15cm (width)). INDICATION FOR PROCEDURE: Fabiola Gibson is a 54 y.o. female who was referred for a ventral incisional hernia. Given the patient's surgical history, the size, and the location of the defect it was felt that she would be best served with a minimally invasive robotic repair. The risks, benefits, and alternatives to surgery werediscussed with the patient and their family. The risks of the surgery discussed in detail included,but were not limited to, bleeding, infection, enterotomy, unplanned bowel resection, intraabdominalsepsis, wound sepsis, mesh infection, enterocutaneous fistula, chronic abdominal pain, recurrent hernia, deep venous thrombosis, pulmonary embolism, myocardial infarction, stroke, renal failure, and pneumonia. All of their questions were answered. The plan was to proceed with a robotic ventral incisional hernia repair with mesh. OPERATIVE FINDINGS: The patient had a 4cm (length) by 3.5cm (width) defect. There was a small amount of fat incarcerated within a portion of the hernia defect, though no incarcerated bowel. We performed a robotic total extraperitoneal retrorectus ventral incisional hernia repair with Bard soft mesh, measuring 24cm (length) by 15cm (width). DESCRIPTION OF PROCEDURE: After obtaining written informed consent, the patient was brought to the operating room and placed on the table in the supine position. She received cefazolin for perioperative antibiotics. She received 5,000 units subcutaneous heparin and SCD's for perioperative DVT prophylaxis. After the induction of general endotracheal anesthesia a ledezma catheter was placed, and her abdomen was prepped and draped in the usual sterile fashion. A formal timeout was then performed with the entire operative team to confirm the correct patient and procedure type. We initially made a 5mm incision in the left upper abdomen just off of midline and placed a 5mm trocar under direct visualization. We entered the retrorectus space and instilled carbon dioxide in this plane. Using blunt dissection with the laparoscope we were able to open up the retrorectus space on the left side. We opened up the lateral retrorectus space enough to place an additional 8mm trocarat the lateral aspect of the left rectus muscle in the retrorectus space just inferior to the costal margin. Using laparoscopic scissors with heat we were able to open up additional space in the retrorectus plane in the caudal direction past the hernia. We cleared enough space distally to place two additional 8mm trocars in the left mid and lower quadrant, both within the retrorectus space. The robot was then docked to the patient. After ensuring that the left retrorectus space was clear from the costal margin down past the arcuate line, and medially to the linea alba, we incised the medial portion of the posterior rectus sheath superior to the hernia to enter the extraperitoneal plane in the upper midline. We incised the posterior rectus sheath inferiorly down past the arcuate line. Coming back superiorly, we dissected through the preperitoneal fat in the upper midline and visualized what we believed was the posterior rectus sheath on the right. This was incised and it was clear that this was the incorrect plan as the transversus abdominis was visualized. A small tear in the peritoneum in this location was made as well. We reassessed the right abdominal wall, and working more medially at this point, identified the posterior sheath. This was incised and the right rectus muscle was appropriately visualized. We entered the right retrorectus plane. We then began working our way inferiorly by dissecting the preperitoneal fat posteriorly in the midline and continuing to incise the right posterior rectus sheath. We e ncountered the ventral incisional hernia and reduced the hernia sac and a small amount of preperitoneal fat. We made a hole in the peritoneum during this reduction in order to inspect the peritoneal cavity and ensure no bowel was within the hernia sac which it was not. The hernia contents were completely reduced. We continued our dissection of the preperitoneal fat in the midline as well as the incision of the posterior rectus sheath on the right down past the arcuate line. We then cleared off the entire posterior rectus sheath out laterally to the neurovascular perforators which were identified and preserved. The hernia defect measured 4cm in length by 3.5cm in width. Once we had opened upadequate space we then turned turned our attention towards closing the peritoneal defects. The small peritoneal tear in the right upper quadrant was closed with a 2-0 Vicryl [id number]. The larger peritoneal hole at the hernia site was closed with a running 2-0 V-lock suture. We then closed the hernia defect with a running #1 Strattafix suture, incorporating a portion of the hernia sac during closure. This came together very nicely. With this completed we then measured the space and introduced an 24cm long by 15cm wide piece of Bard soft mesh. This nicely laid in the retrorectus plane, covering the defect well. Satisfied with our repair, hemostasis was confirmed. The robot was undocked and the preperitoneal pocket was desufflated under direct visualization and the trocars were removed. We placed a Veress needle into the leftupper quadrant lateral to the rectus complex at the conclusion of the procedure to evacuate the pneumoperitoneum. Local anesthetic was instilled into all the wounds. All skin incisions were closed with subcuticular 4-0 Monocryl sutures. Dermabond was applied all incisions. The ledezma catheter was removed. Sponge, needle, and instrument counts were correct at the conclusion of the procedure. The patient was awoken from anesthesia and extubated in the operating room. She tolerated the procedure well and was transferred to the post-anesthesia recovery room. ANESTHESIA: General ESTIMATED BLOOD LOSS: 15 mLs URINE OUTPUT: 100 mLs INTRAOPERATIVE FLUIDS: 1,700 mLs crystalloid BLOOD PRODUCTS TRANSFUSED: None SPECIMENS: * No specimens in log * IMPLANTS: Implant Name Type Inv. Item Serial No. Bench Lay Out Technician Lot No. LRB No. Used [employer] BARD [id number] BARD [id number] MONOFILAMENT SOFT LIGHTWEIGHT LOW PROFILE SQUARE - [id number] Mesh [employer] BARD [id number] Bard [id number] Monofilament Soft Lightweight Low Profile Square [employer] Bard [id number] N/A 1 COMPLICATIONS: None Condition on Discharge from the operating room was stable TEACHING ATTESTATION: I was present and directly participated in the entire procedure, including opening and closing. DATE: 05/14/2020 TIME: 6:31 AM Marina Rosales MD Minimally Invasive GI Surgery & Abdominal Wall Reconstruction theatre manager [facility] [employer] documented in this encounter Plan of Treatment Not on file documented as of this encounter Procedures Procedure Name Priority Date/Time Associated Diagnosis Comments CBC WITHOUT DIFFERENTIAL Routine 05/13/2020 10:52 PM CDT BASIC METABOLIC PANEL Routine 05/13/2020 10:52 PM CDT XI REPAIR INCISIONAL HERNIA - LAPAROSCOPIC ROBOTIC ASSISTED 05/13/2020 7:30 AM CDT Incisional hernia, without obstruction or gangrene Special Needs Dr. Rosales needs 4 hours; mesh documented in this encounter Results * (ABNORMAL) Basic metabolic panel (05/13/2020 10:52 PM CDT) Sodium 143 135 - 145 mmol/L [facility] Potassium, pl 4.0 3.3 - 4.9 mmol/L [facility] Chloride 110 97 - 110 mmol/L [facility] CO2 27 22 - 32 mmol/L [facility] Anion gap 6 2 - 15 mmol/L [facility] BUN 14 8 - 25 mg/dL [facility] Creatinine 0.82 0.60 - 1.10 mg/dL [facility] Glucose 129 70 - 199 mg/dL [facility] Comment: Interpretive Data Fasting glucose [...] Current interpretive data was last revised 2017. Calcium 8.3(L) 8.5 - 10.3 mg/dL [facility] Blood specimen (specimen) 05/13/2020 10:52 PM CDT 05/13/2020 11:37 PM CDT us Marina Rosales MD LAB BLOOD ORDERABLES Final Res ult [facility] Department [place] [address] * (ABNORMAL) CBC without differential (05/13/2020 10:52 PM CDT) Pathologist [facility] WBC 5.7 3.8 - 9.9 K/cumm [facility] Hgb 11.0(L) 11.9 - 15.5 g/dL [facility] Hct 32.8(L) 35.6 - 45.5 % [facility] Plt 216 150 - 400 K/cumm [facility] MPV 10.5 9.1 - 12.3 fL [facility] RBC 3.73(L) 3.90 - 5.20 M/cumm [facility] MCV 87.9 81.3 - 96.4 fL [facility] MCH 29.5 27.1 - 33.3 pg [facility] MCHC 33.5 32.3 - 35.7 g/dL [facility] RDW CV 12.2 11.1 - 14.9 % [facility] RDW SD 39.1 35.7 - 48.1 fL [facility] NRBC abs 0.00 0.00 - 0.01 K/cumm [facility] Blood specimen (specimen) 05/13/2020 10:52 PM CDT 05/13/2020 11:43 PM CDT us Marina Rosales MD LAB BLOOD ORDERABLES Final Res ult [facility] Department [place] [address] documented in this encounter Visit Diagnoses Diagnosis Incisional hernia, without obstruction or gangrene- Primary Incisional hernia, without obstruction or gangrene documented in this encounter Admitting Diagnoses Diagnosis Incisional hernia, without obstruction or gangrene documented in this encounter Administered Medications Inactive Administered Medications - up to 3 most recent administrations Medication Order MAR Action Action Date Dose Rate Site acetaminophen (TYLENOL) tablet 1,000 mg 1,000 mg, oral, Every 6 hours scheduled, First dose on Wed05/13/20 at 1400 Given 05/15/2020 6:40 AM CDT 1,000 mg Given 05/15/2020 12:25 AM CDT 1,000 mg Given 05/14/2020 5:40 PM CDT 1,000 mg bupivacaine (MARCAINE) 0.25 % (2.5 mg/mL) preservative free injection As needed, Starting on Wed05/13/20 at 1034, Intra-Op Given 05/13/2020 10:34 AM CDT 30 mL buPROPion XL (WELLBUTRIN XL) 24 hour tablet 150 mg 150 mg, oral, Every morning, First dose on Wed05/14/20 at 0900, Do not crush, chew, cut, dissolve, open or otherwise manipulate tablet/capsule., Indications: Anxiety with DepressionIndications:Anxiety with Depression Given 05/14/2020 7:57 AM CDT 150 mg cholecalciferol (VITAMIN D-3) capsule 2,000 Units 2,000 Units, oral, Daily (early AM), First dose on Wed05/14/20 at 0600, Indications: Vitamin D DeficiencyIndications:Vitamin D Deficiency Given 05/15/2020 6:40 AM CDT 2,000 Units Given 05/14/2020 5:27 AM CDT 2,000 Units docusate sodium (COLACE) capsule 100 mg 100 mg, oral, 2 times daily, First dose on Wed05/13/20 at 1300, Indications: constipationIndications:constipation Given 05/15/2020 9:01 AM CDT 100 mg Given 05/14/2020 8:54 PM CDT 100 mg Given 05/14/2020 7:57 AM CDT 100 mg escitalopram (LEXAPRO) tablet 10 mg 10 mg, oral, Every morning, First dose on Wed05/14/20 at 0900, Indications: Anxiety with DepressionIndications:Anxiety with Depression Given 05/15/2020 9:01 AM CDT 10 mg heparin 5,000 unit/mL injection 5,000 Units 5,000 Units, subcutaneous, Every 8 hours scheduled, First dose on Wed05/13/20 at 1600, Indications: Deep Vein Thrombosis PreventionIndications:Deep Vein Thrombosis Prevention Given 05/15/2020 12:25 AM CDT 5,000 Units Left Upper Arm Given 05/14/2020 3:15 PM CDT 5,000 Units R ight Upper Arm Given 05/14/2020 7:58 AM CDT 5,000 Units L eft Upper Arm Lactated Ringer's (LR) infusion 30 mL/hr, intravenous, Continuous, Starting on Wed05/13/20 at 0630, Pre-Op New Bag 05/13/2020 6:11 AM CDT 30 mL/hr 30 mL/hr ondansetron (ZOFRAN) injection 4 mg 4 mg, intravenous, Administer over 2 Minutes, Every 4 hours PRN, nausea, vomiting, 1st line, Starting on Wed05/13/20 at 1318, Indications: for nausea/vomitingIndications:for nausea/vomiting Given 05/13/2020 6:11 PM CDT 4 mg oxyCODONE (ROXICODONE) tablet 5 mg 5 mg, oral, Every 4 hours PRN, 2nd line for pain, Starting on Wed05/13/20 at 1223, May repeat in 1 hour if pain is uncontrolled or increasing. Max 2 doses within 1 dosing interval., Indications: PainIndications:Pain Given 05/15/2020 9:01 AM CDT 5 mg Given 05/14/2020 8:57 PM CDT 5 mg Given 05/14/2020 4:30 PM CDT 5 mg pravastatin (PRAVACHOL) tablet 40 mg 40 mg, oral, Every morning, First dose on Wed05/14/20 at 0900, Indications: hyperlipidemiaIndications:hyperlipidemia Given 05/15/2020 9:01 AM CDT 40 mg Given 05/14/2020 7:58 AM CDT 40 mg prochlorperazine (COMPAZINE) injection 5 mg 5 mg, intravenous, Administer over 2 Minutes, Every 6 hours PRN, nausea, vomiting, Starting on Wed05/13/20 at 1318, Indications: 2nd lineIndications:2nd line sodium chloride 0.9 % irrigation As needed, Starting on Wed05/13/20 at 0811, Intra-Op Given 05/13/2020 8:11 AM CDT 1,000 mL sodium chloride 0.9% flush 0.5-20 mL 0.5-20 mL, intra-catheter, Every 8 hours scheduled, First dose on Wed05/13/20 at 1400, Flush volume based on line type and size. Given 05/15/2020 6:41 AM CDT 10 mL Given 05/14/2020 10:00 PM CDT 10 mL Given 05/14/2020 2:00 PM CDT 10 mL sodium chloride 0.9% flush 0.5-20 mL 0.5-20 mL, intra-catheter, As needed, line care, Starting on Wed05/13/20 at 1223, Flush volume based on line type and size. Flush before and after each use. sodium chloride 0.9% infusion 100 mL/hr, intravenous, Continuous, Starting on Wed05/13/20 at 1300, Phase I & Post-op Floor, May discontinue when tolerating PO (more than 250 mL in 8 hours) New Bag 05/13/2020 12:28 PM CDT 100 mL/hr 100 mL/hr documented in this encounter Discontinued Medications Medication Sig Discontinue Reason Start Date End Da te oxyCODONE (OXY-IR) 5 mg capsule Take 1 capsule (5 mg total) by mouth every 6 (six) hours as needed (Pain) Stop Taking at Discharge 05/14/2020 05/14/2020 documented as of this encounter Historical Medications * This list may reflect changes made after this encounter. oxyCODONE (OXY-IR) 5 mg capsuleIndicatio ns:Pain Take 5 mg by mouth every 4 (four) hours as needed for moderate pain (pain scale 5-7) 0 polyethylene glycol (MIRALAX) 17 gram packetIndication s:constipation Take 17 g by mouth daily as needed for constipation 0 added in this encounter Active and Recently Administered Medications Times are shown in CDT. Scheduled Medication Order 05/13/2020 05/14/2020 05/15/2020 acetaminophen (TYLENOL) tablet 1,000 mg 1,000 mg, oral, Every 6 hours scheduled, First dose on Wed05/13/20 at 1400 1323 (Given - Provider: [place] Child RN)1746 (Given - Provider: [place] Child RN)2356 (Given - Provider: Diana Biggs RN) 0527 (Given - Provider: Diana Biggs, RN)1143 (Given - Provider: [place] Child RN)1740 (Given - Provider: [place] Child RN) 0025 (Given - Provider: Roopa Rae, BYRON)0640 (Given - Provider: Roopa Rae, BYRON) buPROPion XL (WELLBUTRIN XL) 24 hour tablet 150 mg 150 mg, oral, Every morning, First dose on Wed05/14/20 at 0900, Do not crush, chew, cut, dissolve, open or otherwise manipulate tablet/capsule., Indications: Anxiety with Depression 0757 (Given - Provider: [place] Child RN) 0902 (Not Given - Provider: Mamie Gannon RN - Reason: Patient/family refused) cholecalciferol (VITAMIN D-3) capsule 2,000 Units 2,000 Units, oral, Daily (early AM), First dose on Wed05/14/20 at 0600, Indications: Vitamin D Deficiency 0527 (Given - Provider: Diana Biggs RN) 0640 (Given - Provider: Roopa Rae, BYRON) docusate sodium (COLACE) capsule 100 mg 100 mg, oral, 2 times daily, First dose on Wed05/13/20 at 1300, Indications: constipation 1323 (Given - Provider: [place] Child RN)2026 (Given - Provider: Diana Biggs RN) 0757 (Given - Provider: [place] Child RN)2053 (Given - Provider: Roopa Rae RN) 0901 (Given - Provider: Mamie Gannon RN) escitalopram (LEXAPRO) tablet 10 mg 10 mg, oral, Every morning, First dose on Wed05/14/20 at 0900, Indications: Anxiety with Depression 0852 (Not Given - Provider: [place] Child RN - Reason: Patient/family refused - Comment: takes at night) 0901 (Given - Provider: Mamie Gannon RN) heparin 5,000 unit/mL injection 5,000 Units 5,000 Units, subcutaneous, Every 8 hours scheduled, First dose on Wed05/13/20 at 1600, Indications: Deep Vein Thrombosis Prevention 1627 (Given - Provider: [place] Child RN)2356 (Given - Provider: Diana Biggs RN) 0758 (Given - Provider: [place] Child RN)1515 (Given - Provider: [place] Child, BYRON) 0025 (Given - Provider: Roopa Rae, BYRON)0901 (Not Given - Provider: Mamie Gannon RN - Reason: Patient/family refused) pravastatin (PRAVACHOL) tablet 40 mg 40 mg, oral, Every morning, First dose on Wed05/14/20 at 0900, Indications: hyperlipidemia 0758 (Given - Provider: [place] Child RN) 0901 (Given - Provider: Mamie Gannon RN) sodium chloride 0.9% flush 0.5-20 mL 0.5-20 mL, intra-catheter, Every 8 hours scheduled, First dose on Wed05/13/20 at 1400, Flush volume based on line type and size. 1323 (Given - Provider: [place] Child RN)2244 (Given - Provider: Diana Biggs RN) 0527 (Given - Provider: Diana Biggs RN)1400 (Given - Provider: [place] Child RN)2200 (Given - Provider: Roopa Rae, BYRON) 0641 (Given - Provider: Roopa Rae, BYRON) Continuous Medication Order 05/13/2020 05/14/2020 05/15/2020 Lactated Ringer's (LR) infusion (CANCELED) 30 mL/hr, intravenous, Continuous, Starting on Wed05/13/20 at 0630, Pre-Op 0614 (New Bag - Provider: Kimber Jones CRNA)1113 (Stopped - Provider: Kimber Jones CRNA) Lactated Ringer's (LR) infusion (CANCELED) 30 mL/hr, intravenous, Continuous, Starting on Wed05/13/20 at 0630, Pre-Op 0611 (New Bag - Provider: Alfredo Damon RN) sodium chloride 0.9% infusion (CANCELED) 100 mL/hr, intravenous, Continuous, Starting on Wed05/13/20 at 1300, Phase I & Post-op Floor, May discontinue when tolerating PO (more than 250 mL in 8 hours) 1228 (New Bag - Provider: Helena Steel RN) PRN Medication Order 05/13/2020 05/14/2020 05/15/2020 bupivacaine (MARCAINE) 0.25 % (2.5 mg/mL) preservative free injection (CANCELED) As needed, Starting on Wed05/13/20 at 1034, Intra-Op 1034 (Given - Provider: Marina Rosales MD) ondansetron (ZOFRAN) injection 4 mg 4 mg, intravenous, Administer over 2 Minutes, Every 4 hours PRN, nausea, vomiting, 1st line, Starting on Wed05/13/20 at 1318, Indications: for nausea/vomiting 1811 (Given - Provider: [place] Child, RN) oxyCODONE (ROXICODONE) tablet 5 mg 5 mg, oral, Every 4 hours PRN, 2nd line for pain, Starting on Wed05/13/20 at 1223, May repeat in 1 hour if pain is uncontrolled or increasing. Max 2 doses within 1 dosing interval., Indications: Pain 1323 (Given - Provider: [place] Child, RN)1925 (Given - Provider: Diana Biggs RN) 1258 (Given - Provider: [place] Child, BYRON)1630 (Given - Provider: [place] Child, RN)2057 (Given - Provider: Roopa Rae, BYRON) 0901 (Given - Provider: Mamie Gannon, BYRON) prochlorperazine (COMPAZINE) injection 5 mg 5 mg, intravenous, Administer over 2 Minutes, Every 6 hours PRN, nausea, vomiting, Starting on Wed05/13/20 at 1318, Indications: 2nd line sodium chloride 0.9 % irrigation (CANCELED) As needed, Starting on Wed05/13/20 at 0811, Intra-Op 0811 (Given - Provider: Marina Rosales MD) sodium chloride 0.9% flush 0.5-20 mL 0.5-20 mL, intra-catheter, As needed, line care, Starting on Wed05/13/20 at 1223, Flush volume based on line type and size. Flush before and after each use. documented in this encounter Orders Medications Ordered That Anthony ht Not Have Been Administered Count Last Ordered Date First Ordered Date HYDROmorphone (DILAUDID) injection 0.2 mg 1 05/13/2020 HYDROmorphone (DILAUDID) injection 0.4 mg 05/13/2020 Lactated Ringer's (LR) infusion 0 naloxone (NARCAN) 0.4 mg/mL injection 0.04-0.4 mg 1 05/13/2020 prochlorperazine (COMPAZINE) injection 5 mg 2 05/13/2020 sodium chloride 0.9% flush 0.5-20 mL 3 04/18 Diet Count Last Ordered Date First Orde red Date ADULT DISCHARGE DIET 1 05/13/2020 Nursing Count Last Ordered Date First Orde red Date DISCHARGE ACTIVITY 4 05/13/2020 DISCHARGE CALL PROVIDER 6 05/13/2020 DISCHARGE DRESSING 7 05/13/2020 documented in this encounter Care Teams Hotel Baggage Handler Relationship Specialty Start Date End Date Elizabeth Borrego PA [address] [place] [address] PCP - General Internal Medicine 03/25/20 09/27/23 Luann Lawrence, ANUP Nurse Practitioner Nurse Practitioner 01/06/19 Adarsh Tuttle MD [address] [facility] [address] [place] [address] Consulting Physician Gastroenterology 02/22/19 Sebastien Martinez DO [address] [place] [address] [address] [place] [address] Medical Oncologist/Rubber Goods Assembler Hematology and Oncology 02/22/19 Guru Winters DO [address] [place] [address] Consulting Physician Gastroenterology 02/22/19 Gato Abrams MD [address] [place] [address] Surgeon Surgical Oncology 09/07/19 documented as of this encounter
--- OUTSIDE RECORDS SUMMARY | 2024-10-04 03:04 | XMS_ITS | Encounter Summary ---
Author Organization [facility] Healthcare Address [address] [place] [address] Care Team Providers Care Ash Pit Worker Name Role Phone Luann Lawrence NP Unavailable [phone] Adarsh Tuttle MD Unavailable [phone] Sebastien Martinez DO Unavailable [phone] Guru Winters DO Unavailable [phone] Gato Abrams MD Unavailable [phone] Elizabeth Borrego Primary Care Provider [phone] Encounter Details Date Type Department Care Team (Late st Contact Info) Description 05/31/2020 1:37 PM CDT - 06/17/2020 11:59 PM CDT Hospital Encounter [facility] Sebastien Martinez, DO [address] [id number] Social History Tobacco Use Types Packs/Day Years [...] on file 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 Gender Identity Female 06/07/2020 8:39 AM CDT Sexual Orientation Not on file 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 Not on file Not on mikie e documented as of this encounter Medications at Time of Discharge cholecalciferol (VITAMIN D-3) 1,000 unit capsuleIndicatio ns:Vitamin D Deficiency Take 2 capsules (2,000 Units total) by mouth diesel powerplant mechanic helper before breakfast acetaminophen ER (TYLENOL) 650 mg [...] 1 tablet (200 mg total) by mouth diesel powerplant mechanic helper before breakfast 01/30/2019 3 insulin syringe-needle U-100 1 mL 29 gauge x 1/2 syringe 1 Syringe every 30 (thirty) days 30 each 1 2019 0 loperamide (Imodium A-D) 2 mg tabletIndication s:diarrhea Take 2 mg by mouth 3 (three) times a day as needed for diarrhea 0 multivitamin capsuleIndicatio ns:Vitamin Deficiency Prevention Take 1 capsule by mouth diesel powerplant mechanic helper before breakfast 4 octreotide LAR (SandoSTATIN LAR) [...] tablet 1 03/25/2020 0 valsartan-hydroC HLOROthiazide (DIOVAN-HCT) 80-12.5 mg per tabletIndication s:hypertension Take 1 tablet by mouth daily 90 tablet 05/23/2020 0 documented as of this encounter Plan of Treatment Not on file documented as of this encounter Visit Diagnoses Not on filedocumented in this encounter Care Teams Ash Pit Worker Relationship Specialty Start Date End Date Elizabeth Borrego PA [address] [facility] [address] [place], [place] [id number] PCP - General Internal Medicine 03/25/20 09/27/23 Luann Lawrence, ANUP Nurse Practitioner Nurse Practitioner 01/06/19 Adarsh Tuttle MD [address] [facility] [address] [place] [address] Consulting Physician Gastroenterology 02/22/19 Sebastien Martinez DO [facility] [facility] [address] [place], [place] [address] Medical Oncologist/Tool Designer Apprentice Hematology and Oncology 02/22/19 Guru Winters DO [facility] [address] Consulting Physician Gastroenterology 02/22/19 Gato Abrams MD [address] [place] [address] Surgeon Surgical Oncology 09/07/19 documented as of this encounter
--- OUTSIDE RECORDS SUMMARY | 2024-10-04 03:04 | XMS_ITS | Encounter Summary ---
Author Organization [facility] Address [address] [place] [address] Phone Care Team Providers Care Mental Tester Name Role Phone Luann Lawrence CEMENT MASON APPRENTICE Unavailable [phone] Adarsh Tuttle MD Unavailable [phone] Sebastien Martinez DO Unavailable [phone] Guru Winters DO Unavailable [phone] Gato Abrams MD Unavailable Elizabeth Borrego Primary Care Provider [phone] Encounter Details Date Type Department Care Team (Late st Contact Info) Description 07/26/2020 Orders Only [facility] Physicians [facility] Oncology [address] [facility] [address] [place] [id number] Sebastien Martinez, DO [address] [facility] [address] [place] [address] Malignant carcinoid tumor of stomach [...] on file 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 Gender Identity Female 06/07/2020 8:39 AM CDT Sexual Orientation Not on file 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 Not on file Not on mikie e documented as of this encounter Plan of Treatment Not on file documented as of this encounter Visit Diagnoses Diagnosis Malignant carcinoid tumor of stomach (HCC)- Primary Malignant carcinoid tumor of the stomach documented in this encounter Care Teams Mental Tester Relationship Specialty Start Date End Date Elizabeth Borrego PA [address] [address] [place] [address] PCP - General Internal Medicine 03/25/20 09/27/23 Luann Lawrence NP Nurse Practitioner Nurse Practitioner 01/06/19 Adarsh Tuttle MD [address] [facility] [address] [place] [address] Consulting Physician Gastroenterology 02/22/19 Sebastien Martinez DO [address] [place] [address] Medical Oncologist/Systems Qa Analyst Hematology and Oncology 02/22/19 Guru Winters DO [address] [place] [address] Consulting Physician Gastroenterology 02/22/19 Gato Abrams MD [address] [place] [address] Surgeon Surgical Oncology 09/07/19 documented as of this encounter
--- OUTSIDE RECORDS SUMMARY | 2024-10-04 03:04 | XMS_ITS | Encounter Summary ---
Author Organization [facility] Address [address] [place] [address] Phone Care Team Providers Care Program Director/Music Director Name Role Phone Luann Lawrence ANUP Unavailable [phone] Adarsh Tuttle MD Unavailable [phone] Sebastien Martinez DO Unavailable [phone] Guru Winters DO Unavailable [phone] Gato Abrams MD Unavailable [phone] Elizabeth Borrego Primary Care Provider [phone] Encounter Details Date Type Department Care Team (Late st Contact Info) Description 06/17/2020 3:15 PM CDT Telemedicine [facility] Surgery [address] [facility] Advanced [facility] 8th [place] [address] [place] [address] Marina Rosales MD [address] [facility] [address] [place] [address] Status post repair of ventral hernia (Primary Dx) Social History Tobacco Use Types [...] on file 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 During the visit, I was located in the office and the patient was located in [place] in the [facility]. The patient visit started at 2:53pm and ended at 3:02pm. Total encounter time was 15 minutes, which includes time spent today on pre charting, the patient encounter, and post charting. The patient has been informed that the visit may not be secure and acknowledged the information. I have explained the option of participating in a telephone or video visit during the [address] emergency to the patient. After being given an opportunity to ask questions about and discuss this type of visit, the patient verbally consented to proceeding with the telephone/video visit.The patient understands that this service replaces an office visit and they may be billed and/or responsible for any applicable copayments. REASON FOR TELEPHONE VISIT: Post-operative telephone visit following robotic retrorectus ventral incisional hernia with mesh on 05/13/2020. BRIEF HISTORY: Fabiola Gibson is a 54 y.o. female who underwent robotic retrorectus ventral incisional hernia with mesh on 05/13/2020, as described in detail in the operative note. Overall, she has donequite well. She reports that her pain is well controlled, and she is no longer requiring prescription pain medication. She is eating and drinking normally, and is moving her bowels regularly. The patient denies fevers, chills, nausea or vomiting. She states her incisions have healed well without redness or drainage. No reported seromas. No recurrent abdominal wall bulges. Of note, she did have a CT scan recently to evaluate her pancreatic lesion and it was unchanged. There was no evidence of recurrent hernia noted on CT scan, though there was some fluid in the retrorectus space. PHYSICAL EXAMINATION: Due to the telehealth nature of the visit the physical exam was limited. In general, the patient was pleasant, conversant in full sentences, and in no acute distress. ASSESSMENT AND PLAN: Fabiola Gibson is status post robotic retrorectus ventral incisional hernia withmesh on 05/13/2020. Overall, she has done quite well. I have instructed her to avoid strenuous activity or heavy lifting for 6 to 8 weeks post-operatively. She should continue to wear her abdominal binder with activity. She will call the office and return to clinic as needed in the future. She askedappropriate questions and was in agreement with the plan. Marina Rosales MD Minimally Invasive GI Surgery & Abdominal Wall Reconstruction floor sweeper [facility] documented in this encounter Plan of Treatment Not on file documented as of this encounter Visit Diagnoses Diagnosis Status post repair of ventral hernia- Primary Other postprocedural status documented in this encounter Care Teams Program Director/Music Director Relationship Specialty Start Date End Date Elizabeth Borrego PA [address] [facility] [address] [place] [address] PCP - General Internal Medicine 03/25/20 09/27/23 Luann Lawrence NP Nurse Practitioner Nurse Practitioner 01/06/19 Adarsh Tuttle MD [address] [facility] [address] [place] [address] Consulting Physician Gastroenterology 02/22/19 Sebastien Martinez DO [address] [facility] [address] [place] [address] Medical Oncologist/Fleece Tier Hematology and Oncology 02/22/19 Guru Winters DO [address] [facility] [address] [place] [address] Consulting Physician Gastroenterology 02/22/19 Gato Abrams MD [address] [place] [address] Surgeon Surgical Oncology 09/07/19 documented as of this encounter
--- OUTSIDE RECORDS SUMMARY | 2024-10-04 03:04 | XMS_ITS | Encounter Summary ---
Author Organization [facility] Healthcare Address [address] [place] [address] Care Team Providers Care Clinical Resource Manager Name Role Phone Luann Lawrence NP Unavailable [phone] Adarsh Tuttle MD Unavailable [phone] Sebastien Martinez DO Unavailable [phone] Guru Winters DO Unavailable [phone] Gato Abrams MD Unavailable [phone] Elizabeth Borrego Primary Care Provider [phone] Encounter Details Date Type Department Care Team (Latest Contact Info) Description 05/13/2020 5:29 AM CDT - 05/15/2020 10:00 AM CDT Hospital Encounter [facility] [address] [place] [address] Marina Rosales MD [address] [address] Discharge Disposition: Discharge to home or self [...] file 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 Gender Identity Female 06/07/2020 8:39 AM CDT Sexual Orientation Not on file 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 Not on file Not on mikie e documented as of this encounter Last Filed Vital Signs Vital Sign Reading Time Taken Comments Blood Pressure 113/62 05/15/2020 7:25 AM CDT Pulse 50 05/15/2020 7:25 AM CDT Temperature 36.6 ??C (97.9 ??F) 05/15/2020 7:25 AM CD T Respiratory Rate 14 05/15/2020 7:25 AM CDT Oxygen Saturation 98% 05/15/2020 7:25 AM CDT Inhaled Oxygen Concentration - - Weight 70.8 kg (156 lb) 05/13/2020 1:01 PM CDT Height 162.6 cm (5' 4.02 ) 05/13/2020 1:01 PM CD T Body Mass Index 26.76 05/13/2020 1:01 PM CDT documented in this encounter Discharge Diagnoses Diagnosis Incisional hernia without obstruction or gangrene - INCISIONAL HERNIA WITHOUT OBSTRUCTION OR GANGRENE Essential (primary) hypertension - ESSENTIAL (PRIMARY) HYPERTENSION Unspecified essential hypertension Hyperlipidemia, unspecified - HYPERLIPIDEMIA, UNSPECIFIED Rheumatoid arthritis, unspecified (HCC) - RHEUMATOID ARTHRITIS, UNSPECIFIED Major depressive disorder, single episode, unspecified - MAJOR DEPRESSIVE DISORDER, SINGLE EPISODE, UNSPECIFIED Anxiety disorder, unspecified - ANXIETY DISORDER, UNSPECIFIED Other care home (current) drug therapy - OTHER CARTRIDGE LOADER (CURRENT) DRUG THERAPY Personal history of nicotine dependence - PERSONAL HISTORY OF NICOTINE DEPENDENCE documented in this encounter Discharge Summaries * Katy Marino CHIEF ADMINISTRATIVE OFFICER - 05/14/2020 9:39 AM CDT Inpatient Discharge Summary BRIEF OVERVIEW Admitting Provider: Marina Rosales MD Discharge Provider: Marina Rosales MD Primary Care Physician at Discharge: NBA Bryan [phone] Admission Date: 05/13/2020 Discharge Date: 05/15/2020 Admission Location: [facility] Problems/Diagnoses: Principal Problem: Incisional hernia, without obstruction [...] mg tablet Take 400 mg by mouth work order sorting clerk before breakfast For: arthritis Commonly known as: PLAQUENIL Imodium A-D 2 mg tablet Take 2 mg by mouth 3 (three) times a day as needed for diarrhea For: diarrhea Generic drug: loperamide insulin syringe-needle U-100 1 mL 29 gauge x 1/2 syringe 1 Syringe every 30 (thirty) days multivitamin capsule Take 1 capsule by mouth work order sorting clerk before breakfast For: treatment to prevent vitamin [...] unit capsule Take 2,000 Units by mouth work order sorting clerk before breakfast For: low vitamin D levels Generic drug: cholecalciferol Outpatient Follow-Up: Future Appointments Date Time Provider Department Center 05/31/2020 3:15 PM LAB, [facility] ONC LAB [facility] 05/31/2020 3:45 PM FAST TRACK RN [facility] INF E [facility] INF 06/03/2020 1:00 PM [facility] BCT3 [facility] N CT [facility] [place] [facility] 06/07/2020 10:45 AM Sebastien Martinez DO ONC [facility] On[facility] 08/26/2020 12:00 PM [facility] BCT5 [facility] N CT [facility] Main [facility] 08/26/2020 1:00 PM aGto Abrams MD HPB CAM 8C [facility] 10/01/2020 9:45 AM Rowdy Marroquin MD MG CAR MRYVL MG Decent 10/01/2020 1:45 PM NBA Bryan FM SHAHRAM MG Decent Cosigned by Marina Rosales MD at 05/15/2020 2:33 PM CDT documented in this encounter Medications at Time of Discharge cholecalciferol (VITAMIN D-3) 1,000 unit capsuleIndicatio ns:Vitamin D Deficiency Take 2 capsules (2,000 Units total) by mouth work order sorting clerk before breakfast acetaminophen ER (TYLENOL) 650 mg [...] 1 tablet (200 mg total) by mouth work order sorting clerk before breakfast 01/30/2019 3 insulin syringe-needle U-100 1 mL 29 gauge x 1/2 syringe 1 Syringe every 30 (thirty) days 30 each 1 2019 0 loperamide (Imodium A-D) 2 mg tabletIndication s:diarrhea Take 2 mg by mouth 3 (three) times a day as needed for diarrhea 0 multivitamin capsuleIndicatio ns:Vitamin Deficiency Prevention Take 1 capsule by mouth work order sorting clerk before breakfast 4 octreotide LAR (SandoSTATIN LAR) [...] MD PhD - 05/15/2020 9:42 AM CDT [facility] Minimally Invasive Surgery Daily Progress Note SUBJECTIVE: [...] MD PhD - 05/14/2020 3:15 PM CDT [facility] Minimally Invasive Surgery Daily Progress Note SUBJECTIVE: [...] Invasive GI Surgery & Abdominal Wall Reconstruction tile edger [facility] * Jules Toledo, PT - 05/14/2020 11:21 AM CDT Physical Therapy As supervising physical therapist, I agree with and cosign all documentation provided on this date by student physical therapist, Gilma Tidwell. Jules Toledo, PT 05/14/20 * Jocy De Oliveira RN - 05/14/2020 9:25 AM CDT 05/14/20 0923 Information Information Obtained From Patient (per phone interview) Referral Data Referral Source Human Resources Recruiter Referral Reason Discharge Planning Prior to Admission Primary Caregiver Self Support System Children Support system contact info (name, phone, availablity) daughter-letitia peck [phone] Home Care Services No Durable Medical Equipment None Living Arrangements Alone Type of Residence Private residence Financial Resource Payor Source Commercial ([facility]) Potential Discharge Needs Anticipated discharge level of care Private residence Pt/Family agrees with Anticipated Level of Care Yes Patient expects to be discharged to: Private residence Dialysis No Behavioral Health Services No PCP: ayde ARANGO Pharm: shaka Ins: [facility] Add: 05/14/20 Presented for surgery, pod 1 [...] from 4:31p.m. - 7:59a.m., please call the food service representative [phone]. For weekend/holiday needs from 8:00a.m. - 4:30p.m., please call the Weekend Human Resources Recruiter . * Katy Marino CHIEF ADMINISTRATIVE OFFICER - 05/13/2020 1:14 PM CDT General Surgery [...] injection 5,000 Units, 5,000 Units, subcutaneous, Q8H [facility], Buddy Valdez MD PhD ??? oxyCODONE (ROXICODONE) tablet 5 mg, 5 mg, oral, Q4H PRN, Buddy Valdez MD PhD ??? sodium chloride 0.9% flush 0.5-20 mL, 0.5-20 mL, intra-catheter, Q8H JESSICA, Buddy Valdez MD PhD ??? sodium chloride [...] Invasive GI Surgery & Abdominal Wall Reconstruction tile edger [facility] [employer] [facility] Source Note - Aleja Bedoya NP - 05/07/2020 3:43 PM CDT Images from the original note were not included. Center for Preoperative Assessment and Planning Preoperative Evaluation Record Evaluation type/location: CPAP [facility] Planned procedure site: [facility] PVT OR (Pod 1) Date: 05/07/20 Anesthesia [...] LBBB and PACs. Pertinent negatives: CAD ; RI ; CABG ; atrial fibrillation; pacemaker/ICD; DVT/PE; [...] be performed on 05/10 at [facility]. . 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 acetaminophen [...] Rosales MD - 05/13/2020 8:05 AM CDT [facility] Minimally Invasive Surgery Operative Report SURGEON: Marina [...] quadrant was closed with a 2-0 Vicryl [id number]. The larger peritoneal hole at the hernia [...] Implant Name Type Inv. Item Serial No. Supervisor Mapping Lot No. [id number] No. Used [employer] BARD [id number] BARD [id number] MONOFILAMENT SOFT LIGHTWEIGHT LOW PROFILE SQUARE - [id number] Mesh [employer] BARD [id number] Bard [id number] Monofilament Soft Lightweight Low Profile Square [employer] R Bard [id number] N/A 1 COMPLICATIONS: None Condition on Discharge from the operating room was stable TEACHING ATTESTATION: I was present and directly participated in the entire procedure, including opening and closing. DATE: 05/14/2020 TIME: 6:31 AM Marina Rosales MD Minimally Invasive GI Surgery & Abdominal Wall Reconstruction tile edger [facility] [employer] documented in this encounter [...] CDT) Sodium 143 135 - 145 mmol/L [facility] Potassium, pl 4.0 3.3 - 4.9 mmol/L [facility] Chloride 110 97 - 110 mmol/L [facility] CO2 27 22 - 32 mmol/L [facility] Anion gap 6 2 - 15 mmol/L [facility] BUN 14 8 - 25 mg/dL [facility] Creatinine 0.82 0.60 - 1.10 mg/dL [facility] Glucose 129 70 - 199 mg/dL [facility] Comment: Interpretive Data Fasting glucose >/= 126 [...] 2017. Calcium 8.3(L) 8.5 - 10.3 mg/dL [facility] Blood specimen (specimen) 05/13/2020 10:52 PM CDT 05/13/2020 11:37 PM CDT us Marina Rosales MD LAB BLOOD ORDERABLES Final Res ult [facility] Department [place] [address] * (ABNORMAL) CBC without differential (05/13/2020 10:52 PM CDT) WBC 5.7 3.8 - 9.9 K/cumm [facility] Hgb 11.0(L) 11.9 - 15.5 g/dL [facility] Hct 32.8(L) 35.6 - 45.5 % [facility] Plt 216 150 - 400 K/cumm [facility] MPV 10.5 9.1 - 12.3 fL [facility] RBC 3.73(L) 3.90 - 5.20 M/cumm [facility] MCV 87.9 81.3 - 96.4 fL [facility] MCH 29.5 27.1 - 33.3 pg [facility] MCHC 33.5 32.3 - 35.7 g/dL [facility] RDW CV 12.2 11.1 - 14.9 % [facility] RDW SD 39.1 35.7 - 48.1 fL [facility] NRBC abs 0.00 0.00 - 0.01 K/cumm [facility] Blood specimen (specimen) 05/13/2020 10:52 PM CDT 05/13/2020 11:43 PM CDT us Marina Rosales MD LAB BLOOD ORDERABLES Final Res ult [facility] Department [place] [address] documented in this encounter Visit Diagnoses Diagnosis Incisional hernia, without obstruction or gangrene- Primary Malignant carcinoid tumor of stomach (HCC) Malignant carcinoid tumor of the stomach Carcinoid tumor of stomach Benign carcinoid tumor of the stomach Pernicious anemia Iron deficiency anemia due to chronic blood loss Iron deficiency anemia secondary to blood loss (chronic) HTN (hypertension), benign Essential hypertension, benign Dyslipidemia Other and unspecified hyperlipidemia LBBB (left bundle branch block) Other left bundle branch block 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 Gastroesophageal reflux disease without esophagitis Esophageal reflux documented in this encounter Admitting Diagnoses Diagnosis [...] Given 05/14/2020 5:40 PM CDT 1,000 mg buPROPion XL (WELLBUTRIN XL) 24 hour tablet [...] 1318, Indications: 2nd lineIndications:2nd line sodium chloride 0.9% flush 0.5-20 mL 0.5-20 [...] RN) 0527 (Given - Provider: Diana Biggs RN)1143 (Given - Provider: Indiana Child, BYRON)1740 (Given - Provider: [place] Child, BYRON) 0025 (Given - Provider: Roopa Rae, BYRON)0640 [...] constipation 1323 (Given - Provider: [place] Child RN)202 (Given - Provider: Diana Biggs RN) 0757 (Given - Provider: [place] Child RN)2053 (Given - Provider: Roopa Rae, BYRON) 0901 (Given - Provider: Mamie Gannon RN) [...] [place] Child RN)2356 (Given - Provider: Diana Biggs, BYRON) 0758 (Given - Provider: [place] Child RN)1515 (Given - Provider: [place] Child RN) 0025 (Given - Provider: Roopa Rae, BYRON)0901 (Not Given - Provider: Mamie Gannon RN - Reason: Patient/family refused) pravastatin (PRAVACHOL) tablet 40 mg 40 mg, oral, Every morning, First dose on Wed05/14/20 at 0900, Indications: hyperlipidemia 0758 (Given - Provider: Indiana Child, BYRON) 0901 (Given - Provider: Mamie Gannon RN) sodium chloride 0.9% flush 0.5-20 mL 0.5-20 mL, intra-catheter, Every 8 hours scheduled, First dose on Wed05/13/20 at 1400, Flush volume based on line type and size. 1323 (Given - Provider: Indiana Child RN)2244 (Given - Provider: Diana Biggs, BYRON) 0527 (Given - Provider: Diana Biggs, RN)1400 (Given - Provider: Indiana Child RN)2200 [...] hours) 1228 (New Bag - Provider: Helena Steel, BYRON) PRN Medication Order 05/13/2020 05/14/2020 05/15/2020 bupivacaine [...] nausea/vomiting 1811 (Given - Provider: Indiana Child, BYRON) oxyCODONE (ROXICODONE) tablet 5 mg 5 mg, oral, Every 4 hours PRN, 2nd line for pain, Starting on Wed05/13/20 at 1223, May repeat in 1 hour if pain is uncontrolled or increasing. Max 2 doses within 1 dosing interval., Indications: Pain 1323 (Given - Provider: Indiana Child, RN)1925 (Given - Provider: Diana Biggs, BYRON) 1258 (Given - Provider: Indiana Child, BYRON)1630 (Given - Provider: [place] Child, BYRON)2057 (Given - Provider: Roopa Rae, BYRON) 0901 [...] Count Last Ordered Date First Ordered Date bupivacaine (MARCAINE) 0.25 % (2.5 mg/mL) preservative free injection 05/13/2020 HYDROmorphone (DILAUDID) injection 0.2 mg 05/13/2020 HYDROmorphone (DILAUDID) injection 0.4 mg 05/13/2020 Lactated Ringer's (LR) infusion 0 naloxone (NARCAN) 0.4 mg/mL injection 0.04-0.4 mg 1 05/13/2020 prochlorperazine (COMPAZINE) injection 5 mg 2 05/13/2020 sodium chloride 0.9 % irrigation 1 05/13/20 20 sodium chloride 0.9% flush 0.5-20 mL 3 04/18 Diet Count Last Ordered Date First Orde red Date ADULT DISCHARGE DIET 1 05/13/2020 Nursing Count Last Ordered Date First Orde red Date DISCHARGE ACTIVITY 4 05/13/2020 DISCHARGE CALL PROVIDER 6 05/13/2020 DISCHARGE DRESSING 7 05/13/2020 documented in this encounter Care Teams Clinical Resource Manager Relationship Specialty Start Date End Date Elizabeth Borrego PA [address] [place], [place] [id number] PCP - General Internal Medicine 03/25/20 09/27/23 Luann Lawrence, ANUP Nurse Practitioner Nurse Practitioner 01/06/19 Adarsh Tuttle MD [address] [facility] [address] [place] [address] Consulting Physician Gastroenterology 02/22/19 Sebastien Martinez DO [address] [place] [id number] Medical Oncologist/Certified Medical Coder Hematology and Oncology 02/22/19 Guru Winters DO [address] [place] [address] Consulting Physician Gastroenterology 02/22/19 Gato Abrams MD [address] [place] [address] Surgeon Surgical Oncology 09/07/19 documented as of this encounter
--- OUTSIDE RECORDS SUMMARY | 2024-10-04 03:04 | XMS_ITS | Encounter Summary ---
Author Organization [facility] Healthcare Address [address] [place] [address] Care Team Providers Care Sheriff Officer Name Role Phone Luann Lawrence NP Unavailable [phone] Adarsh Tuttle MD Unavailable [phone] Sebastien Martinez DO Unavailable [phone] Guru Winters DO Unavailable [phone] Gato Abrams MD Unavailable [phone] Elizabeth Borrego Primary Care Provider [phone] Reason for Visit * MRI/CAT/PET Scan (Routine) - Closed Specialty Diagnoses / Procedures Referred By Clemencia mendez Referred To Contact Radiology Diagnoses Pancreatic mass Procedures CT Abdomen W WO Contrast CT abdomen with contrast Sebastien Martinez DO [address] [address] Phone: tel: fax: [address] [address] Referral ID Status Reason Start Date Expiration Date Visits Re quested Visits Authorized [id number] Closed 03/28/2020 10/07/2021 1 1 Encounter Details Date Type Department Care Team (Latest Contact Info) Description 06/03/2020 12:22 PM CDT - 06/03/2020 11:59 PM CDT Hospital Encounter [facility] [address] [place] [address] Sebastien Martinez DO [address] [place] [id number] Pancreatic mass Discharge Disposition: Discharge to home or self [...] file 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 Gender Identity Female 06/07/2020 8:39 AM CDT Sexual Orientation Not on file 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 Not on file Not on mikie e documented as of this encounter Medications at Time of Discharge cholecalciferol (VITAMIN D-3) 1,000 unit capsuleIndicatio ns:Vitamin D Deficiency Take 2 capsules (2,000 Units total) by mouth facing baster before breakfast acetaminophen ER (TYLENOL) 650 mg [...] 1 tablet (200 mg total) by mouth facing baster before breakfast 01/30/2019 3 insulin syringe-needle U-100 1 mL 29 gauge x 1/2 syringe 1 Syringe every 30 (thirty) days 30 each 1 2019 0 loperamide (Imodium A-D) 2 mg tabletIndication s:diarrhea Take 2 mg by mouth 3 (three) times a day as needed for diarrhea 0 multivitamin capsuleIndicatio ns:Vitamin Deficiency Prevention Take 1 capsule by mouth facing baster before breakfast 4 octreotide LAR (SandoSTATIN LAR) [...] 05/23/2020 0 documented as of this encounter Discharge Disposition Disposition Code Departure Means Destination Discharge to home or self care documented in this encounter Plan of Treatment Not on file documented as of this encounter Procedures Procedure Name Priority Date/Time Associated Diagnosis Comments CT ABDOMEN W WO CONTRAST Schedule Routine, Read Routine (OP Routine) 06/03/2020 1:17 PM CDT Pancreatic mass documented in this encounter Results * CT Abdomen W WO Contrast (06/03/2020 1:17 PM CDT) Anatomical Region Laterality Modality Body N/A Computed Tomogra phy 06/03/2020 1:39 PM CDT Impressions 06/03/2020 2:07 PM CDT 1. 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 2. ??Unchanged postsurgical changes of distal gastrectomy and Billroth II gastrojejunostomy without evidence of local recurrence. Dictated by: Roge Sandy M.D. Ph.D. The radiology attending physician has personally reviewed this study, and had reviewed and/or edited this written report and agrees with it. Electronically signed by: Aren Moctezuma M.D. Narrative 06/03/2020 2:07 PM CDT EXAMINATION: ??Computed tomography of the abdomen with and without intravenous contrast HISTORY: 54-year-old woman with a history of gastric carcinoid status post distal gastrectomy and Billroth II gastrojejunostomy now with a hyperenhancing lesion in the uncinate process of the pancreas. TECHNIQUE: ??Transaxial computed tomographic images of the abdomen were obtained with and without intravenous contrast according to the pancreas protocol after the uneventful administration of 125 mL Opti-Ray 350 intravenous contrast. COMPARISON: Prior CT the abdomen and pelvis 02/22/2020 and dotatate PET/CT 03/26/2020. ??By outside report the lesion was seen on a prior Dotatate PET/CT. ?? FINDINGS: ?? The lung bases are clear. The visualized heart is normal. ??Postsurgical changes of distal gastrectomy and Billroth II gastrojejunostomy are noted. ??The liver, gallbladder, spleen, bilateral adrenal glands, and bilateral kidneys are normal. ??The visualized large and small bowel is otherwise normal. Within the uncinate process of the pancreas is a arterially hyperenhancing lesion measuring 6 mm which is unchanged relative to the prior CT scan and corresponds to the dotatate avid lesion seen on the recent PET CT scan. The visualized abdominal aorta and its branch vessels are normal. There is no retroperitoneal lymphadenopathy. No suspicious osseous lesions are seen. Procedure Note Aren Moctezuma MD - 06/03/2020 EXAMINATION: Computed tomography of the abdomen with and without intravenous contrast HISTORY: 54-year-old woman with a history of gastric carcinoid status post distal gastrectomy and Billroth II gastrojejunostomy now with a hyperenhancing lesion in the uncinate process of the pancreas. TECHNIQUE: Transaxial computed tomographic images of the abdomen were obtained with and without intravenous contrast according to the pancreas protocol after the uneventful administration of 125 mL Opti-Ray 350 intravenous contrast. COMPARISON: Prior CT the abdomen and pelvis 02/22/2020 and dotatate PET/CT 03/26/2020. By outside report the lesion was seen on a prior Dotatate PET/CT. FINDINGS: The lung bases are clear. The visualized heart is normal. Postsurgical changes of distal gastrectomy and Billroth II gastrojejunostomy are noted. The liver, gallbladder, spleen, bilateral adrenal glands, and bilateral kidneys are normal. The visualized large and small bowel is otherwise normal. Within the uncinate process of the pancreas is a arterially hyperenhancing lesion measuring 6 mm which is unchanged relative to the prior CT scan and corresponds to the dotatate avid lesion seen on the recent PET CT scan. The visualized abdominal aorta and its branch vessels are normal. There is no retroperitoneal lymphadenopathy. No suspicious osseous lesions are seen. IMPRESSION: 1. 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 2. Unchanged postsurgical changes of distal gastrectomy and Billroth II gastrojejunostomy without evidence of local recurrence. Dictated by: Roge Sandy M.D. Ph.D. The radiology attending physician has personally reviewed this study, and had reviewed and/or edited this written report and agrees with it. Electronically signed by: Aren Moctezuma M.D. Sebastien Martinez DO IMG CT PROCEDURES Final Resu lt documented in this encounter Visit Diagnoses Diagnosis Pancreatic mass Unspecified disease of pancreas documented in this encounter Administered Medications Inactive Administered Medications - up to 3 most recent administrations Medication Order MAR Action Action Date Dose Rate Site ioversoL (OPTIRAY 350) syringe syringe 125 mL 125 mL, intravenous, Once in imaging, contrast, Starting on 06/03/20 at 1306, For 1 dose Given 06/03/2020 1:06 PM CDT 125 mL documented in this encounter Care Teams Sheriff Officer Relationship Specialty Start Date End Date Elizabeth Borrego PA [address] [facility] [address] [place] [address] PCP - General Internal Medicine 03/25/20 09/27/23 Luann Lawrence NP Nurse Practitioner Nurse Practitioner 01/06/19 Adarsh Tuttle MD [address] [facility] [address] [place] [address] Consulting Physician Gastroenterology 02/22/19 Sebastien Martinez DO [address] [place] [address] Medical Oncologist/Coloring Room Worker Hematology and Oncology 02/22/19 Guru Winters DO [address] [place] [address] Consulting Physician Gastroenterology 02/22/19 Gato Abrams MD [address] [place] [address] Surgeon Surgical Oncology 09/07/19 documented as of this encounter
--- OUTSIDE RECORDS SUMMARY | 2024-10-04 03:04 | XMS_ITS | Encounter Summary ---
Author Organization [facility] Address [address] [place] [address] Phone Care Team Providers Care Store Stock Associate Name Role Phone Luann Lawrence SHOCHET Unavailable [phone] Adarsh Tuttle MD Unavailable [phone] Sebastien Martinez DO Unavailable Guru Winters DO Unavailable Gato Abrams MD Unavailable [phone] Elizabeth Borrego Primary Care Provider [phone] Encounter Details Date Type Department Care Team (Late st Contact Info) Description 05/24/2020 Orders Only [facility] Oncology [address] [facility] [address] [place] [address] Sebastien Martinez, DO [address] [facility] [address] [place], [place] [id number] Pancreatic mass (Primary Dx) Social History Tobacco Use Types [...] file 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 Gender Identity Female 06/07/2020 8:39 AM CDT Sexual Orientation Not on file 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 Not on file Not on mikie e documented as of this encounter Plan of Treatment Not on file documented as of this encounter Visit Diagnoses Diagnosis Pancreatic mass- Primary Unspecified disease of pancreas documented in this encounter Care Teams Store Stock Associate Relationship Specialty Start Date End Date Elizabeth Borrego PA [address] [facility] [address] [place], [place] [phone] PCP - General Internal Medicine 03/25/20 09/27/23 Luann Lawrence NP Nurse Practitioner Nurse Practitioner 01/06/19 Adarsh Tuttle MD [address] [facility] [address] [place] [address] Consulting Physician Gastroenterology 02/22/19 Sebastien Martinez DO 14[address] [facility] 180 [place] [address] Medical Oncologist/Studio Technician Hematology and Oncology 02/22/19 Guru Winters DO [facility] [address] Consulting Physician Gastroenterology 02/22/19 Gato Abrams MD [address] [id number] Surgeon Surgical Oncology 09/07/19 documented as of this encounter
--- OUTSIDE RECORDS SUMMARY | 2024-10-04 03:04 | XMS_ITS | Encounter Summary ---
Author Organization [facility] Address [address] [facility] [address] [place] [address] Care Team Providers Care Setter Molding And Coremaking Machines Name Role Phone Luann Lawrence NP Unavailable [phone] Adarsh Tuttle MD Unavailable [phone] Sebastien Martinez DO Unavailable [phone] Guru Winters DO Unavailable [phone] Gato Abrams MD Unavailable Elizabeth Borrego Primary Care Provider [phone] Encounter Details Date Type Department Care Team (Late st Contact Info) Description 05/01/2020 Telephone [facility] Cardiology [address] [facility] [address] [place] [address] Rowdy Marroquin MD 12[address] [facility] [address] [place], [place] [id number] Social History Tobacco Use Types Packs/Day Years [...] on file 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 If her heart rate was as low as 45 or 50 beats per minute but generally significant higher I would not be too concerned as she was under anesthesia. Continue to monitor and report any concerns for now. * Telephone Encounter - Maite Ernandez RN - 05/01/2020 3:44 PM CDT From pt's my chart: I wanted to let you know prior to my hernia surgery on May 13, I have had two procedures , Endoscopy at [facility] and my Heart Rate was as low as 50 on 04-18-2020, my EUS at [facility] on Wednesday it was as low as 45. I wanted to make you aware of this. Thank you Pt denies any trouble with dizziness or lightheadedness. Please advise. documented in this encounter Plan of Treatment Not on file documented as of this encounter Visit Diagnoses Not on filedocumented in this encounter Care Teams Setter Molding And Coremaking Machines Relationship Specialty Start Date End Date Elizabeth Borrego PA [address] [address] PCP - General Internal Medicine 03/25/20 09/27/23 Luann Lawrence NP Nurse Practitioner Nurse Practitioner 01/06/19 Adarsh Tuttle MD [address] [facility] [address] [place] [address] Consulting Physician Gastroenterology 02/22/19 Sebastien Martinez DO [address] [place] [address] Medical Oncologist/Package Clerk Hematology and Oncology 02/22/19 Guru Winters DO [address] [place] [address] [id number] Consulting Physician Gastroenterology 02/22/19 Gato Abrams MD [address] [place] [address] Surgeon Surgical Oncology 09/07/19 documented as of this encounter
--- OUTSIDE RECORDS SUMMARY | 2024-10-04 03:04 | XMS_ITS | Encounter Summary ---
Author Organization [facility] Address [address] [place] [address] Phone Care Team Providers Care Clinical Educator Name Role Phone Melinda Luann Burgess NP Unavailable [phone] Adarsh Tuttle MD Unavailable [phone] Sebastien Martinez DO Unavailable [phone] Guru Winters DO Unavailable [phone] Gato Abrams MD Unavailable [phone] Elizabeth Borrego Primary Care Provider [phone] Reason for Visit * Episode Based Medications (Routine) - Closed Specialty Diagnoses / Procedures Referred By Clemencia mendez Referred To Contact Oncology Diagnoses Malignant carcinoid tumor of stomach (HCC) Procedures [place] OCTREOTIDE INJECTION, DEPOT Sebastien Martinez, DO [facility] [address] Phone: tel: fax: [facility] Oncology [address] [facility] [address] [place] [address] Phone: tel: fax: Referral ID Status Reason Start Date Expiration Date Visits Re quested Visits Authorized [id number] Closed 2022 02/19/2023 1 50 Encounter Details Date Type Department Care Team (Late st Contact Info) Description 07/26/2020 2:45 PM CDT Infusion [facility] Oncology [address] [facility] [address] [place] [address] Malignant carcinoid tumor of [...] on file 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 Vidya inj well. documented in this encounter Plan of [...] 20 mg 20 mg, intramuscular, Once, On Wed07/26/20 at 1530, For 1 dose, Refrigerate. For IM intragluteal administration only- alternate gluteal sites. Shake.Indications:Malignant carcinoid tumor of stomach (HCC) Given 07/26/2020 3:02 PM CDT 20 mg Right Dorsogluteal/Butt ock documented in this encounter Orders Appointment Requests Count Last Ordered Date Fi rst Ordered Date ONCBCN INJECTION APPOINTMENT REQUEST 1 06/2020 documented in this encounter Care Teams Clinical Educator Relationship Specialty Start Date End Date Elizabeth Borrego PA [address] [facility] [address] [place], [place] [phone] PCP - General Internal Medicine 03/25/20 09/27/23 Luann Lawrence, ANUP Nurse Practitioner Nurse Practitioner 01/06/19 Adarsh Tuttle MD [address] [facility] [address] [place] [address] Consulting Physician Gastroenterology 02/22/19 Sebastien Martinez DO [address] [place] [address] 180 [place] [address] Medical Oncologist/Channel Development Director Hematology and Oncology 02/22/19 Guru Winters DO [address] [place] [address] Consulting Physician Gastroenterology 02/22/19 Gato Abrams MD [address] [place] [id number] Surgeon Surgical Oncology 09/07/19 documented as of this encounter
--- OUTSIDE RECORDS SUMMARY | 2024-10-04 03:04 | XMS_ITS | Encounter Summary ---
Author Organization [facility] Address [address] [place] [address] Phone Care Team Providers Care Tuna Purse Seiner Name Role Phone Luann Lawrence ANUP Unavailable [phone] Adarsh Tuttle MD Unavailable [phone] Sebastien Martinez DO Unavailable [phone] Guru Winters DO Unavailable [phone] Gato Abrams MD Unavailable [phone] Elizabeth Borrego Primary Care Provider [phone] Encounter Details Date Type Department Care Team (Late st Contact Info) Description 05/10/2020 Telephone [facility] Surgery [facility] 8th [place] [address] [place] [address] Joy Tena Social History Tobacco Use Types Packs/Day Years [...] on file 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 Rosales on 05/13. Arrival time is 5:30am at [facility] 3rd floor registration. Patient verbalized understanding and has no further questions at this time. documented in this encounter Plan of Treatment Not on file documented as of this encounter Visit Diagnoses Not on filedocumented in this encounter Care Teams Tuna Purse Seiner Relationship Specialty Start Date End Date Elizabeth Borrego PA [address] [facility] [address] [place], [place] [phone] PCP - General Internal Medicine 03/25/20 09/27/23 Luann Lawrence NP Nurse Practitioner Nurse Practitioner 01/06/19 Adarsh Tuttle MD [address] [facility] [address] [place] [address] Consulting Physician Gastroenterology 02/22/19 Sebastien Martinez DO [address] [place] [address] Medical Oncologist/Court Orderly Hematology and Oncology 02/22/19 Guru Winters DO [facility] [id number] Consulting Physician Gastroenterology 02/22/19 Gato Abrams MD [address] [place] [id number] Surgeon Surgical Oncology 09/07/19 documented as of this encounter
--- OUTSIDE RECORDS SUMMARY | 2024-10-04 03:04 | XMS_ITS | Encounter Summary ---
Author Organization [facility] Address [address] [place] [address] Phone Care Team Providers Care Linen Room Attendant Name Role Phone Luann Lawrence TREATING PLANT PUMPER Unavailable [phone] Adarsh Tuttle MD Unavailable [phone] Sebastien Martinez DO Unavailable [phone] Guru Winters DO Unavailable [phone] Gato Abrams MD Unavailable [phone] Elizabeth Borrego Primary Care Provider [phone] Encounter Details Date Type Department Care Team (Late st Contact Info) Description 05/29/2020 Orders Only [facility]icians [facility] Oncology [address] [facility] [address] [place] [address] Sebastien Martinez, DO [address] [facility] [address] [place] [address] Malignant carcinoid tumor of stomach [...] on file 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 Gender Identity Female 06/07/2020 8:39 AM CDT Sexual Orientation Not on file 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 Not on file Not on mikie e documented as of this encounter Plan of Treatment Not on file documented as of this encounter Visit Diagnoses Diagnosis Malignant carcinoid tumor of stomach (HCC)- Primary Malignant carcinoid tumor of the stomach documented in this encounter Care Teams Linen Room Attendant Relationship Specialty Start Date End Date Elizabeth Borrego PA [address] [facility] [address] [place] [address] PCP - General Internal Medicine 03/25/20 09/27/23 Luann Lawrence NP Nurse Practitioner Nurse Practitioner 01/06/19 Adarsh Tuttle MD [address] [facility] [address] [place] [address] Consulting Physician Gastroenterology 02/22/19 Sebastien Maritnez DO [address] [place] [address] Medical Oncologist/Bag Hanger Hematology and Oncology 02/22/19 Guru Winters DO [address] [place] [address] Consulting Physician Gastroenterology 02/22/19 Gato Abrams MD [address] [place] [address] Surgeon Surgical Oncology 09/07/19 documented as of this encounter
--- OUTSIDE RECORDS SUMMARY | 2024-10-04 03:04 | XMS_ITS | Encounter Summary ---
Author Organization [facility] Address [address] [facility] [address] [place] [address] Care Team Providers Care Clothing Sales Assistant Name Role Phone Lunan Lawrence NP Unavailable [phone] Adarsh Tuttle MD Unavailable [phone] Sebastien Martinez DO Unavailable [phone] Guru Winters DO Unavailable [phone] Gato Abrams MD Unavailable Elizabeth Borrego Primary Care Provider [phone] Encounter Details Date Type Department Care Team (Late st Contact Info) Description 07/08/2020 Orders Only [facility] Family Medicine [address] [facility] [address] [place] [address] Madeline Gomez PA [address] [place] [address] HTN (hypertension), benign Social History Tobacco Use Types Packs/Day Years [...] on file 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 Gender Identity Female 06/07/2020 8:39 AM CDT Sexual Orientation Not on file 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 Not on file Not on mikie e documented as of this encounter Ordered Prescriptions Prescription Sig Dispense Quantity Refills Last Filled Start Date End Date valsartan-hydroCHL OROthiazide (DIOVAN-HCT) 80-12.5 mg per tabletIndications: hypertension Take 1 tablet by mouth daily 90 tablet 1 07/08/2020 07/22/2020 documented in this encounter Plan of Treatment Not on file documented as of this encounter Visit Diagnoses Diagnosis HTN (hypertension), benign Essential hypertension, benign documented in this encounter Discontinued Medications Medication Sig Discontinue Reason Start Date End Da te valsartan-hydroCHLOROthi azide (DIOVAN-HCT) 80-12.5 mg per tabletIndications:hypert ension TAKE 1 TABLET BY MOUTH DAILY Reorder 06/24/2020 07/08/2020 documented as of this encounter Care Teams Clothing Sales Assistant Relationship Specialty Start Date End Date Elizabeth Borrego PA [address] [facility] [address] [place], [place] [phone] PCP - General Internal Medicine 03/25/20 09/27/23 Luann Lawrence NP Nurse Practitioner Nurse Practitioner 01/06/19 Adarsh Tuttle MD [address] [facility] [address] [place], [place] [phone] Consulting Physician Gastroenterology 02/22/19 [place] [address] [place] [address] Medical Oncologist/Mill Recorder Hematology and Oncology 02/22/19 Guru Winters DO [address] [place] [address] Consulting Physician Gastroenterology 02/22/19 Gato Abrams MD [address] [place] [address] Surgeon Surgical Oncology 09/07/19 documented as of this encounter
--- OUTSIDE RECORDS SUMMARY | 2024-10-04 03:04 | XMS_ITS | Encounter Summary ---
Author Organization [facility] Healthcare Address [address] [place] [address] Care Team Providers Care Steel Barrel Reamer Name Role Phone Luann Lawrence NP Unavailable [phone] Adarsh Tuttle MD Unavailable Sebastien Martinez DO Unavailable Guru Winters DO Unavailable [phone] Gato Abrams MD Unavailable Elizabeth Borrego Primary Care Provider [phone] Encounter Details Date Type Department Care Team (Late st Contact Info) Description 04/29/2020 1:30 PM CDT - 04/29/2020 2:30 PM CDT Surgery [facility] [place] [address] [place] [address] Agustin Brown MD [address] [facility] [address] [place] [address] US Endoscopy wuprep per Thuy move to Kevin [[id number]] Surgery Details Date/Time Status Location OR Service Patient Class Case Class Case Type Trauma Case? 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 Not on file Not on mikie e documented as of this encounter Last Filed Vital Signs Vital Sign Reading Time Taken Comments Blood Pressure 109/59 04/29/2020 1:55 PM CDT Pulse 50 04/29/2020 1:55 PM CDT Temperature 36.1 ??C (97 ??F) 04/29/2020 1:55 PM CDT Respiratory Rate 13 04/29/2020 1:55 PM CDT Oxygen Saturation 96% 04/29/2020 1:55 PM CDT Inhaled Oxygen Concentration - - Weight 71.7 kg (158 lb) 04/29/2020 1:55 PM CDT Height 162.6 cm (5' 4 ) 04/29/2020 1:55 PM CDT Body Mass Index 27.12 04/29/2020 1:55 PM CDT documented in this encounter Medications at Time of Discharge cholecalciferol (VITAMIN D-3) 1,000 unit capsuleIndicatio ns:Vitamin D Deficiency Take 2 capsules (2,000 Units total) by mouth colorer machine before breakfast buPROPion XL (WELLBUTRIN XL) 150 [...] 1 tablet (200 mg total) by mouth colorer machine before breakfast 01/30/2019 3 insulin syringe-needle U-100 1 mL 29 gauge x 1/2 syringe 1 Syringe every 30 (thirty) days 30 each 1 2019 0 multivitamin capsuleIndicatio ns:Vitamin Deficiency Prevention Take 1 capsule by mouth colorer machine before breakfast 4 oxyCODONE (OXY-IR) 5 mg capsule Take 1 capsule (5 mg total) by mouth every 6 (six) hours as needed (Pain) 05/14/2020 0 oxyCODONE (OXY-IR) 5 mg capsuleIndicatio ns:Pain Take [...] 03/25/2020 0 documented as of this encounter Discharge Disposition Disposition Code Departure Means Destination Discharge to home or self care documented in this encounter H&P Notes * Juan Diego Chawla MD - 04/29/2020 2:14 PM CDT Pre Endoscopy History and Physical Faboila Gibson is a 54 y.o. female who is here for Procedure(s): US Endoscopy wuprep per Thuy llamas to Kevin The indication(s) for the procedure(s): Abnormal PET with uptake in the uncinate process of the pancreas, OSH EGD with submucosal lesion in the posterior distal wall of the stomach. Past Medical History: Diagnosis Date ??? Anemia [...] TUBAL LIGATION 02/2005 ??? UPPER GASTROINTESTINAL ENDOSCOPY Social History Tobacco Use ??? Smoking status: Former Smoker Packs/day: 1.00 Years: 2.00 Pack years: 2.00 Start date: 1996 Last attempt to quit: 1998 Years since quittin.5 ??? Smokeless tobacco: Never Used Substance Use Topics ??? Alcohol use: Yes Alcohol/week: 2.0 - 3.0 standard drinks Types: 2 - 3 Cans of beer per week Family History Problem Relation Age of Onset ??? Dementia Mother ??? Emphysema Father ??? Other (Congestive Heart Failure) Father ??? No Known Problems Sister ??? Heart attack Brother ??? Ovarian cancer Mother's Sister ??? Colon cancer Mother's Brother ??? Cancer Maternal Grandmother No Known Allergies Prior to Admission medications Medication Sig Start Date End Date Taking? Authorizing Provider buPROPion XL (WELLBUTRIN XL) 150 mg 24 hr tablet Take 1 tablet (150 mg total) by mouth every morning 03/25/20 Yes NBA Bryan cholecalciferol (VITAMIN D3) 1,000 unit capsule Take 2,000 Units by mouth daily Yes Historical Provider, cyanocobalamin (Vitamin B-12) 1,000 mcg/mL injection Inject 1 mL (1,000 mcg total) into the muscle as instructed every 30 (thirty) days 12/25/19 Yes Sebastien Martinez, escitalopram (LEXAPRO) 10 mg tablet Take 1 tablet (10 mg total) by mouth every morning 03/25/20 Yes NBA Bryan hydroxychloroquine (PLAQUENIL) 200 mg tablet Take 400 mg by mouth daily 01/30/19 Yes Historical Provider, multivitamin capsule Take 1 capsule by mouth daily Yes Historical Provider, pravastatin (PRAVACHOL) 40 mg tablet Take 1 tablet (40 mg total) by mouth every morning 03/25/20 Yes NBA Bryan valsartan-hydroCHLOROthiazide (DIOVAN-HCT) 160-12.5 mg per tablet Take 1 tablet by mouth daily 03/25/20 Yes NBA Bryan insulin syringe-needle U-100 1 mL 29 gauge x 1/2 syringe 1 Syringe every 30 (thirty) days 07/25/19 Sebastien Martinez DO omeprazole (PriLOSEC) 20 mg capsule Take 20 mg by mouth every morning 04/29/20 Historical Provider, Review of Systems A pertinent, focused review of systems was completed and negative, except as noted above. OBJECTIVE: Vitals: Vitals: 04/29/20 1355 BP: 109/59 Pulse: 50 Resp: 13 Temp: 36.1 ??C (97 ??F) TempSrc: Temporal SpO2: 96% Weight: 71.7 kg (158 lb) Height: 162.6 cm (5' 4 ) Physical Exam: Airway: No significant abnormality. Cardiac: No significant abnormality. Pulmonary: No significant abnormality. Neurological: No significant abnormality. Gastrointestinal: No significant abnormality. ASA Score: per Anesthesia Sedation/Anesthesia Plan: per Anesthesia The risks and complications of the procedure have been explained to the patient. Informed consent was signed. Impression and plan: Will proceed with the planned procedure for the reasons stated above. Cosigned by Agustin Brown MD at 04/29/2020 3:13 PM CDT Associated attestation - Agustin Brown MD - 04/29/2020 3:13 PM CDT I have seen and examined the patient on 04/29/20. I agree with the findings and plan of care as documented in the resident's/fellow's note.. documented in this encounter Procedure Notes * Agustin Brown MD - 04/29/2020 2:20 PM CDTAssociated Order(s): EUS GI ENDOSCOPY NORTH Patient Name: Fabiola Gibson Procedure Date: 04/29/2020 2:20 PM Date of : 1965 Admit Type: Outpatient Age: 54 Gender: Female Attending MD: Agustin Brown M.D. Room: [facility] ENDOSCOPY ROOM 9 Note Status: Finalized Procedure: Upper EUS Indications: Abnormal PET scan of the GI tract. OSH EGD with submucosal gastric lesion Referring MD: Guru Winters D.O. Providers: Agustin Brown M.D., Juan Diego Chawla M.D. Medicines: Monitored Anesthesia Care Complications: No immediate complications. Estimated Blood Loss: Estimated blood loss: none. Procedure: Pre-Anesthesia Assessment: - Immediately prior to administration of medications, the patient was re-assessed for adequacy to receive sedatives. - The risks and benefits of the procedure and the sedation options and risks were discussed with the patient. All questions were answered and informed consent was obtained. The risks, benefits and alternatives were discussed and informed consent was obtained. The scope was passed under direct vision. The GIF H190 [id number] endoscope was introduced through the mouth, and advanced to the jejunum. The Olympus radial endosonoscope [id number] was introduced through the mouth, and advanced to the second part of duodenum The risks, benefits and alternatives were discussed and informed consent was obtained. Findings: Endoscopic Finding : The examined esophagus was normal. Evidence of a patent Billroth II gastrojejunostomy was found. The gastrojejunal anastomosis was characterized by healthy appearing mucosa. This was traversed. The efferent limb was examined. The afferent limb was examined. A single 6 mm papule (nodule) was found in the gastric antrum. This was not biopsied as it was previously biopsied to be a hyperplastic polyp. Endosonographic Finding : Endosonographic images of the stomach were unremarkable. No pathologic lymphadenopathy, no masses and no wall thickening were identified. There was no sign of significant endosonographic abnormality in the pancreatic body and pancreatic tail. The remaining pancreas could not be adequately assessed due to technically difficult procedure due to altered anatomy (Billroth 2). Impression: - Patent Billroth II gastrojejunostomy was found, characterized by healthy appearing mucosa. - A single papule (nodule) found in the stomach. This appears unchanged from prior EUS in 06/2019 and was biopsied that time as a hyperplastic polyp. - Endosonographic images of the stomach were unremarkable. No masses or other lesions noted in the stomach. - There was no sign of significant pathology in the pancreatic body and pancreatic tail. Remainder of pancreas could not be adequately visualized due to altered anatomy (Billroth 2) Recommendation: - Given two negative EUS for the gastric nodule and lack of uptake on DOTATATE PET would not repeat EUS unless otherwise clinically indicated - Repeat EGD in 1 year for surveillance - Return to referring physician as previously scheduled. - Follow up with Dr. Abrams. Attending Participation: I personally performed the entire procedure. Electronically signed by Agustin Brown M.D. Agustin Brown M.D. 04/29/2020 3:10:56 PM . Number of Addenda: 0 Note Initiated On: 04/29/2020 2:20 PM Recognized by the [employer] for promoting quality in endoscopy documented in this encounter Plan of Treatment Pending Results Name Type Priority Associated Diagnoses Date /Time US Endoscopy Endo Imaging Procedure IP Routine Submucosal lesion of stomach 04/29/2020 2:55 PM CDT documented as of this encounter Procedures Procedure Name Priority Date/Time Associated Diagnosis Comments US ENDOSCOPIC IP Routine 04/29/2020 2:55 PM CDT Submucosal lesion of stomach EUS 04/29/2020 2:20 PM CDT documented in this encounter Results * EUS (04/29/2020 2:20 PM CDT) Anatomical Region Laterality Modality Other Narrative Procedure Note Agustin Brown MD - 04/29/2020 2:20 PM CDT GI ENDOSCOPY NORTH Patient Name: Fabiola Gibson Procedure Date: 04/29/2020 2:20 PM Date of : 1965 Admit Type: Outpatient Age: 54 Gender: Female Attending MD: Agustin Brown M.D. Room: [facility] ENDOSCOPY ROOM 9 Note Status: Finalized Procedure: Upper EUS Indications: Abnormal PET scan of the GI tract. OSH EGD with submucosal gastric lesion Referring MD: Guru Winters D.O. Providers: Agustin Brown M.D., Mark. Chawla, M.D. Medicines: Monitored Anesthesia Care Complications: No immediate complications. Estimated Blood Loss: Estimated blood loss: none. Procedure: Pre-Anesthesia Assessment: - Immediately prior to administration ofmedications, the patient was re-assessed for adequacy to receive sedatives. - The risks and benefits of the procedure and the sedation options and risks were discussed with the patient. All questions were answered and informed consent was obtained. The risks, benefits and alternatives were discussedand informed consent was obtained. The scope was passed under direct vision. The GIF H190 [id number] endoscope was introduced through the mouth, and advanced tothe jejunum. The Olympus radial [id number] was introduced through the mouth, and advanced tothe second part of duodenum The risks, benefits and alternatives were discussed and informed consent was obtained. Findings: Endoscopic Finding : The examined esophagus was normal. Evidence of a patent Billroth II gastrojejunostomy was found. The gastrojejunal anastomosis was characterized by healthy appearingmucosa. This was traversed. The efferent limb was examined. The afferent limb was examined. A single 6 mm papule (nodule) was found in the gastric antrum. Thiswas not biopsied as it was previously biopsied to be a hyperplasticpolyp. Endosonographic Finding : Endosonographic images of the stomach were unremarkable. Nopathologic lymphadenopathy, no masses and no wall thickening were identified. There was no sign of significant endosonographic abnormality in the pancreatic body and pancreatic tail. The remaining pancreas could notbe adequately assessed due to technically difficult procedure due to altered anatomy (Billroth 2). Impression: - Patent Billroth II gastrojejunostomy was found, characterized by healthy appearing mucosa. - A single papule (nodule) found in the stomach.This appears unchanged from prior EUS in 06/2019 and was biopsied that time as a hyperplastic polyp. - Endosonographic images of the stomach were unremarkable. No masses or other lesions noted inthe stomach. - There was no sign of significant pathology in the pancreatic body and pancreatic tail. Remainder of pancreas could not be adequately visualized due to altered anatomy (Billroth 2) Recommendation: - Given two negative EUS for the gastric nodule and lack of uptake on DOTATATE PET would not repeat EUS unless otherwise clinically indicated - Repeat EGD in 1 year for surveillance - Return to referring physician as previouslyscheduled. - Follow up with Dr. Abrams. Attending Participation: I personally performed the entire procedure. Electronically signed by Agustin Brown M.D. Agustin Brown M.D. 04/29/2020 3:10:56 PM . Number of Addenda: 0 Note Initiated On: 04/29/2020 2:20 PM Recognized by the [employer] for promoting quality in endoscopy Agustin Brown MD ENDOSCOPY PROCEDURES Final Result documented in this encounter Visit Diagnoses Diagnosis Submucosal lesion of stomach- Primary Submucosal lesion of stomach Submucosal lesion of stomach documented in this encounter Admitting Diagnoses Diagnosis Submucosal lesion of stomach documented in this encounter Administered Medications Inactive Administered Medications - up to 3 most recent administrations Medication Order MAR Action Action Date Dose Rate Site sodium chloride 0.9% flush 0.5-20 mL 0.5-20 mL, intra-catheter, As needed, line care, Starting on Wed04/29/20 at 1345, Pre-Procedure (GI), Flush volume based on line type and size. Flush before and after each use. , Indications: FlushingIndications:Flushin g sodium chloride 0.9% infusion 30 mL/hr, intravenous, Continuous, Starting on Wed04/29/20 at 1430, Pre-Procedure (GI) Rate/Dose Verify 04/29/2020 2:21 PM CDT 30 mL/hr New Bag 04/29/2020 2:03 PM CDT 30 mL 30 mL/hr documented in this encounter Discontinued Medications Medication Sig Discontinue Reason Start Date End Da te omeprazole (PriLOSEC) 20 mg capsuleIndications:Treat ment of Non-Bleeding Gastric Disorder Take 20 mg by mouth every morning Therapy completed 04/29/2020 documented as of this encounter Active and Recently Administered Medications Times are shown in CDT. Continuous Medication Order 04/27/2020 04/28/2020 04/29/2020 sodium chloride 0.9% infusion 30 mL/hr, intravenous, Continuous, Starting on Wed04/29/20 at 1430, Pre-Procedure (GI) 1403 (New Bag - Prov ider: Berta Chaney RN)1421 (Rate/Dose Verify - Provider: Babita Cunningham CRNA)1459 (Anesthesia Volume Adjustment - Provider: Babita Cunningham CRNA)1526 (Stopped - Provider: Konrad Tyson RN) PRN Medication Order 04/27/2020 04/28/2020 04/29/2020 sodium chloride 0.9% flush 0.5-20 mL 0.5-20 mL, intra-catheter, As needed, line care, Starting on Wed04/29/20 at 1345, Pre-Procedure (GI), Flush volume based on line type and size. Flush before and after each use. , Indications: Flushing documented in this encounter Orders Medications Ordered That Anthony ht Not Have Been Administered Count Last Ordered Date First Ordered Date sodium chloride 0.9% flush 0.5-20 mL 1 04/17 documented in this encounter Additional Health Concerns Infection Onset Date Last Indicated Resolved Time Respiratory Infection (LUIS E), contact + droplet Comment:Automatically added due to negative COVID-19 result. 04/28/2020 04/28/2020 04/29/2020 1:3 7 PM CDT documented as of this encounter Care Teams Steel Barrel Reamer Relationship Specialty Start Date End Date Elizabeth Borrego PA [address] [place] [address] PCP - General Internal Medicine 03/25/20 09/27/23 Luann Lawrence NP Nurse Practitioner Nurse Practitioner 01/06/19 Adarsh Tuttle MD [address] [place] [address] Consulting Physician Gastroenterology 02/22/19 [place] [address] [place] [address] Medical Oncologist/Men'S Locker Room Attendant Hematology and Oncology 02/22/19 [place] [address] [place] [address] Consulting Physician Gastroenterology 02/22/19 Gato Abrams MD [address] [place] [address] Surgeon Surgical Oncology 09/07/19 documented as of this encounter
--- OUTSIDE RECORDS SUMMARY | 2024-10-04 03:04 | XMS_ITS | Encounter Summary ---
Author Organization [facility] Address [address] [place] [address] Phone Care Team Providers Care Gas Operation Manager Name Role Phone Melinda Luann Burgess NP Unavailable Adarsh Tuttle MD Unavailable Sebastien Martinez DO Unavailable [phone] Guru Winters DO Unavailable [phone] Gato Abrams MD Unavailable [phone] Elizabeth Borrego Primary Care Provider [phone] Reason for Visit * Episode Based Medications (Routine) - Closed Specialty Diagnoses / Procedures Referred By Clemencia mendez Referred To Contact Oncology Diagnoses Malignant carcinoid tumor of stomach (HCC) Procedures [place] OCTREOTIDE INJECTION, DEPOT Sebastien Martinez, DO [facility] [address] Phone: tel: fax: [facility] Oncology [address] [address] Phone: tel: fax: Referral ID Status Reason Start Date Expiration Date Visits Re quested Visits Authorized [id number] Closed 2022 02/19/2023 1 50 Encounter Details Date Type Department Care Team (Late st Contact Info) Description 06/28/2020 3:15 PM CDT Infusion [facility] [address] [facility] [address] [place] [phone] Malignant carcinoid tumor of stomach (CMS/HCC) (Primary [...] on file 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 For IM intragluteal administration only- alternate gluteal sites. Shamir.Indications:Malignant carcinoid tumor of stomach (HCC) Given 06/28/2020 3:23 PM CDT 20 mg Left Dorsogluteal/Butt ock documented in this encounter Orders Appointment Requests Count Last Ordered Date Fi rst Ordered Date ONCBCN INJECTION APPOINTMENT REQUEST 1 06/18 documented in this encounter Care Teams Gas Operation Manager Relationship Specialty Start Date End Date Elizabeth Borrego PA [address] [facility] [address] [place] [address] PCP - General Internal Medicine 03/25/20 09/27/23 Luann Lawrence NP Nurse Practitioner Nurse Practitioner 01/06/19 Adarsh Tuttle MD [address] [facility] [address] [place] [address] Consulting Physician Gastroenterology 02/22/19 Sebastien Martinez DO [address] [place] [address] Medical Oncologist/Mud Analysis Well Logging Captain Hematology and Oncology 02/22/19 Guru Winters DO [address] [place] [address] [id number] Consulting Physician Gastroenterology 02/22/19 Gato Abrams MD [address] [place] [id number] Surgeon Surgical Oncology 09/07/19 documented as of this encounter
--- OUTSIDE RECORDS SUMMARY | 2024-10-04 03:04 | XMS_ITS | Encounter Summary ---
Author Organization [facility] Address [address] [place] [address] Phone Care Team Providers Care Collections Curator Name Role Phone Luann Lawrence ANUP Unavailable [phone] Adarsh Tuttle MD Unavailable Sebastien Martinez DO Unavailable [phone] Guru Winters DO Unavailable [phone] Gato Abrams MD Unavailable [phone] Elizabeth Borrego Primary Care Provider [phone] Encounter Details Date Type Department Care Team (Late st Contact Info) Description 05/17/2020 Telephone [facility] Surgery 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 LVM stating surgery date was 05/13 and post-op date is 06/14. Jessica Maier [phone] documented in this encounter Plan of Treatment Not on file documented as of this encounter Visit Diagnoses Not on filedocumented in this encounter Care Teams Collections Curator Relationship Specialty Start Date End Date Elizabeth Borrego PA [address] [facility] [address] [place], [place] [id number] PCP - General Internal Medicine 03/25/20 09/27/23 Luann Lawrence, ANUP Nurse Practitioner Nurse Practitioner 01/06/19 Adarsh Tuttle MD [address] [facility] [address] [place] [address] Consulting Physician Gastroenterology 02/22/19 Sebastien Martinez DO [facility] [facility] [address] [place], [place] [address] Medical Oncologist/Breaker Boss Hematology and Oncology 02/22/19 Guru Winters DO [facility] [address] Consulting Physician Gastroenterology 02/22/19 Gato Abrams MD [facility] [address] Surgeon Surgical Oncology 09/07/19 documented as of this encounter
--- OUTSIDE RECORDS SUMMARY | 2024-10-04 03:04 | XMS_ITS | Encounter Summary ---
Author Organization [facility] Address [address] [place] [address] Phone Care Team Providers Care Team Automobile Assembler Name Role Phone Melinda Luann Burgess NP Unavailable [phone] Adarsh Tuttle MD Unavailable [phone] Sebastien Martinez DO Unavailable [phone] Guru Winters DO Unavailable [phone] Gato Abrams MD Unavailable [phone] Elizabeth Borrego Primary Care Provider [phone] Reason for Visit * Episode Based Medications (Routine) - Closed Specialty Diagnoses / Procedures Referred By Clemencia mendez Referred To Contact Oncology Diagnoses Malignant carcinoid tumor of stomach (HCC) Procedures [place] OCTREOTIDE INJECTION, DEPOT Sebastien Martinez, DO [facility] [address] Phone: tel: fax: [facility] Oncology [address] [address] Phone: tel: fax: Referral ID Status Reason Start Date Expiration Date Visits Re quested Visits Authorized [id number] Closed 2022 02/19/2023 1 50 Encounter Details Date Type Department Care Team (Late st Contact Info) Description 05/31/2020 1:45 PM CDT Lab [facility] Oncology 14[address] [facility] [address] [place] [phone] Malignant carcinoid tumor of stomach (CMS/HCC) Social [...] on file Legal Sex Female 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 OPERATOR Gender Identity Female 06/07/2020 8:39 AM CDT Sexual Orientation Not on file 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 Not on mikie e documented as of this encounter Plan of Treatment Not on file documented as of this encounter Visit Diagnoses Diagnosis Malignant carcinoid tumor of stomach (HCC) Malignant carcinoid tumor of the stomach documented in this encounter Orders Appointment Requests Count Last Ordered Date Fi rst Ordered Date ONCBCN LAB APPOINTMENT 1 05/31/2020 documented in this encounter Care Teams Team Automobile Assembler Relationship Specialty Start Date End Date Elizabeth Borrego PA [address] [facility] [address] [place] [address] PCP - General Internal Medicine 03/25/20 09/27/23 Luann Lawrence NP Nurse Practitioner Nurse Practitioner 01/06/19 Adarsh Tuttle MD [address] [facility] [address] [place] [address] Consulting Physician Gastroenterology 02/22/19 Sebastien Martinez DO [address] [facility] [address] [place] [address] Medical Oncologist/Hearing Healthcare Practitioner Hematology and Oncology 02/22/19 Guru Winters DO [address] [address] Consulting Physician Gastroenterology 02/22/19 Gato Abrams MD [address] [place] [address] Surgeon Surgical Oncology 09/07/19 documented as of this encounter
--- OUTSIDE RECORDS SUMMARY | 2024-10-04 03:04 | XMS_ITS | Encounter Summary ---
Author Organization [facility] Address [address] [place] [address] Phone Care Team Providers Care Cracker Off Name Role Phone Luann Lawrence ANUP Unavailable [phone] Adarsh Tuttle MD Unavailable [phone] Sebastien Martinez DO Unavailable [phone] Guru Winters DO Unavailable [phone] Gato Abrams MD Unavailable [phone] Elizabeth Borrego Primary Care Provider [phone] Encounter Details Date Type Department Care Team (Late st Contact Info) Description 04/30/2020 Telephone [facility] Oncology [address] [place] [address] [address] [place] [address] Anna Kelly, RMA Social History Tobacco Use [...] on file 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 Martinez has no objections to her proceeding with hernia surgery on 05/13/2020. * Telephone Encounter - Anna Kelly MA - 04/30/2020 9:19 AM CDT Patient had a EGD done with Dr. Winters and a EUS done with Dr. Brown. We have both of these reports in the chart. Patient is scheduled to have hernia surgery on April. Wants to make sure Dr. Martinez is ok with her proceeding with this? She is having a CT for us June [address] Martinez June 13. Anna BISHOP documented in this encounter Plan of Treatment Not on file documented as of this encounter Visit Diagnoses Not on filedocumented in this encounter Care Teams Cracker Off Relationship Specialty Start Date End Date Elizabeth Borrego PA [address] [facility] [address] [place] [address] PCP - General Internal Medicine 03/25/20 09/27/23 Luann Lawrence NP Nurse Practitioner Nurse Practitioner 01/06/19 Adarsh Tuttle MD [address] [facility] [address] [place] [address] Consulting Physician Gastroenterology 02/22/19 Sebastien Martinez DO [address] [facility] [address] [place] [address] Medical Oncologist/Green End Worker Hematology and Oncology 02/22/19 [place] [address] [place] [address] Consulting Physician Gastroenterology 02/22/19 Gato Abrams MD [address] [place] [address] Surgeon Surgical Oncology 09/07/19 documented as of this encounter
--- OUTSIDE RECORDS SUMMARY | 2024-10-04 03:04 | XMS_ITS | Encounter Summary ---
Author Organization [facility] Address [address] [place] [address] Phone Care Team Providers Care Space And Missile Operations Spacelift Name Role Phone MelindaLuann Aditya HEBERT Unavailable [phone] Adarsh Tuttle MD Unavailable [phone] Sebastien Martinez DO Unavailable [phone] Guru Winters DO Unavailable [phone] Gato Abrams MD Unavailable [phone] Elizabeth Borrego Primary Care Provider [phone] Reason for Visit * Reason Comments Injections * Episode Based Medications (Routine) - Closed Specialty Diagnoses / Procedures Referred By Clemencia mendez Referred To Contact Oncology Diagnoses Malignant carcinoid tumor of stomach (HCC) Procedures [place] OCTREOTIDE INJECTION, DEPOT Sebastien Martinez, [address] [address] Phone: tel: fax: [facility] Oncology [address] [address] Phone: tel: fax: Referral ID Status Reason Start Date Expiration Date Visits Re quested Visits Authorized [id number] Closed 2022 02/19/2023 1 50 Encounter Details Date Type Department Care Team (Late st Contact Info) Description 05/31/2020 2:15 PM CDT Infusion 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 documented in this encounter Plan of [...] 20 mg 20 mg, intramuscular, Once, On Wed05/31/20 at 1430, For 1 dose, Refrigerate. For IM intragluteal administration only- alternate gluteal sites. Shake.Indications:Malignant carcinoid tumor of stomach (HCC) Given 05/31/2020 1:58 PM CDT 20 mg Left Dorsogluteal/Butt ock documented in this encounter Orders Appointment Requests Count Last Ordered Date Fi rst Ordered Date ONCBCN INJECTION APPOINTMENT REQUEST 1 05/18 documented in this encounter Care Teams Space And Missile Operations Spacelift Relationship Specialty Start Date End Date Elizabeth Borrego PA [address] [place], [place] [id number] PCP - General Internal Medicine 03/25/20 09/27/23 Luann Lawrence, ANUP Nurse Practitioner Nurse Practitioner 01/06/19 Adarsh Tuttle MD [address] [facility] [address] [place] [address] Consulting Physician Gastroenterology 02/22/19 Sebastien Martinez DO [address] [place] [address] Medical Oncologist/Master Planner Hematology and Oncology 02/22/19 Guru Winters DO [address] [place] [address] Consulting Physician Gastroenterology 02/22/19 Gato Abrams MD [address] [place] [address] Surgeon Surgical Oncology 09/07/19 documented as of this encounter
--- OUTSIDE RECORDS SUMMARY | 2024-10-04 03:04 | XMS_ITS | Encounter Summary ---
Author Organization [facility] Address [address] [facility] [address] [place] [address] Care Team Providers Care Political Science Faculty Member Name Role Phone Melinda Luann Burgess NP Unavailable [phone] Adarsh Tuttle MD Unavailable [phone] Sebastien Martinez DO Unavailable [phone] Guru Winters DO Unavailable [phone] Gato Abrams MD Unavailable [phone] Elizabeth Borrego Primary Care Provider [phone] Reason for Visit * Reason Onset Date Comments hospital discharge 05/15/2020 Encounter Details Date Type Department Care Team (Late st Contact Info) Description 05/15/2020 Telephone [facility] Family Medicine [address] [facility] [address] [place] [address] Elizabeth Borrego PA [address] [facility] [address] [place] [address] hospital discharge Social History Tobacco Use Types Packs/Day Years [...] on file 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 She is resting a lot. She has all medications given at discharge and understands how to use them. She is going to make an appointment for f/u with her surgeon tomorrow morning. * Telephone Encounter - Elizabeth Borrego PA - 05/15/2020 1:03 PM CDT Please call and check on patient 05/16. She had a hernia repair at [facility]. Discharged 05/15. Make sure she has her discharge meds. I would be glad to see her (video is ok) if she needs anything but I want to make sure she has a follouwp scheduled with her surgeon. documented in this encounter Plan of Treatment Not on file documented as of this encounter Visit Diagnoses Not on filedocumented in this encounter Care Teams Political Science Faculty Member Relationship Specialty Start Date End Date Elizabeth Borrego PA [address] [facility] [address] [place] [address] PCP - General Internal Medicine 03/25/20 09/27/23 Luann Lawrence NP Nurse Practitioner Nurse Practitioner 01/06/19 Adarsh Tuttle MD [address] [facility] [facility] [address] [place] [address] Consulting Physician Gastroenterology 02/22/19 [place] [address] [place] [address] Medical Oncologist/Eyelet Maker Hematology and Oncology 02/22/19 Guru Winters DO [address] [place] [place] [address] Consulting Physician Gastroenterology 02/22/19 Gato Abrams MD [address] [place] [place] [address] Surgeon Surgical Oncology 09/07/19 documented as of this encounter
--- OUTSIDE RECORDS SUMMARY | 2024-10-04 03:04 | XMS_ITS | Encounter Summary ---
Author Organization [facility] Address [address] [place] [address] Phone Care Team Providers Care Mineral Mixer Name Role Phone Luann Lawrence MONKEY KEEPER Unavailable [phone] Adarsh Tuttle MD Unavailable [phone] Sebastien Martinez DO Unavailable Guru Winters DO Unavailable [phone] Gato Abrams MD Unavailable [phone] Elizabeth Borrego Primary Care Provider [phone] Encounter Details Date Type Department Care Team (Late st Contact Info) Description 06/27/2020 Orders Only [facility] [address] [facility] [address] [place] [address] Sebastien Martinez, DO [address] [facility] [address] [place] [address] Malignant carcinoid tumor of stomach [...] file 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 Gender Identity Female 06/07/2020 8:39 AM CDT Sexual Orientation Not on file 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 Not on mikie e documented as of this encounter Plan of Treatment Not on file documented as of this encounter Visit Diagnoses Diagnosis Malignant carcinoid tumor of stomach (HCC)- Primary Malignant carcinoid tumor of the stomach documented in this encounter Care Teams Mineral Mixer Relationship Specialty Start Date End Date Elizabeth Borrego PA [address] [facility] [address] [place] [address] PCP - General Internal Medicine 03/25/20 09/27/23 Luann Lawrence NP Nurse Practitioner Nurse Practitioner 01/06/19 Adarsh Tuttle MD [address] [facility] [address] [place] [address] Consulting Physician Gastroenterology 02/22/19 Sebastien Martinez DO [address] [place] [address] Medical Oncologist/Vending Supervisor Hematology and Oncology 02/22/19 Guru Winters DO [address] [place] [address] Consulting Physician Gastroenterology 02/22/19 Gato Abrams MD [address] [place] [id number] Surgeon Surgical Oncology 09/07/19 documented as of this encounter
--- OUTSIDE RECORDS SUMMARY | 2024-10-04 03:05 | XMS_ITS | Encounter Summary ---
Author Organization [facility] Address [address] [place] [address] Phone Care Team Providers Care Glass Beveler Name Role Phone MelindaLuann oh ANUP Unavailable [phone] Adarsh Tuttle MD Unavailable [phone] Sebastien Martinez DO Unavailable [phone] Guru Winters DO Unavailable [phone] Gato Abrams MD Unavailable [phone] Barbra Goddard Primary Care Pr ovider Reason for Visit * Consultation (Routine) - Closed Specialty Diagnoses / Procedures Referred By Clemencia mendez Referred To Contact Minimally Invasive Surgery Diagnoses Incisional hernia, without obstruction or gangrene Gato Abrams MD [address] [facility] [address] [place] [address] Phone: tel: fax: Marina Rosales MD [address] [facility] [address] [place] [address] Phone: tel: Referral ID Status Reason Start Date Expiration Date V isits Requested Visits Authorized [id number] Closed Specialty Services Required 02/28/2020 09/08/2021 99 99 Encounter Details Date Type Department Care Team (Late st Contact Info) Description 03/22/2020 10:00 AM CDT Office Visit [facility] Surgery [address] [facility] [address] [place] [phone] Marina Rosales MD [address] [facility] [address] [place] [address] Ventral incisional hernia (Primary Dx) Social History Tobacco Use Types Packs/Day Years Used Date Smoking Tobacco: Former Cigarettes 1 2 1 997 - 1998 Smokeless Tobacco: Never Alcohol Use Standard Drinks/Week Comments Yes 2 (1 standard drink = 0.6 oz pur e alcohol) Comments No Sex and Gender Information Value Date Recorded Sex Assigned at Not on file 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 Gender Identity Female 06/07/2020 8:39 AM CDT Sexual Orientation Not on file 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 Not on file Not on mkiie e documented as of this encounter Last Filed Vital Signs Vital Sign Reading Time Taken Comments Blood Pressure 108/71 03/22/2020 9:53 AM CDT Pulse 61 03/22/2020 9:53 AM CDT Temperature 36.6 ??C (97.8 ??F) 03/22/2020 9:53 AM CD T Respiratory Rate - - Oxygen Saturation - - Inhaled Oxygen Concentration - - Weight 72 kg (158 lb 12.8 oz) 03/22/2020 9:53 AM CDT Height 162.6 cm (5' 4 ) 03/22/2020 9:53 AM CDT Body Mass Index 27.26 03/22/2020 9:53 AM CDT documented in this encounter Progress Notes * Marina Rosales MD - 03/22/2020 10:00 AM CDT [facility] Minimally Invasive Surgery New Ventral Hernia Patient Evaluation Fabiola Gibson [id number] 1965 REFERRING PHYSICIAN: Gato Abrams MD PCP: NBA Ward Reason for Visit: Consult requested by Gato Abrams MD for evaluation of a ventral incisional hernia. HPI: Fabiola Gibson is a 54 y.o. female with a past medical history of HTN, HLD, and well-differentiated gastric carcinoid tumors status post laparoscopic partial gastrectomy with Billroth 2 reconstruction on 08/23/2019 (Dr. Abrams) who presents with a ventral incisional hernia. She noticed the herniaapproximately 3 weeks ago. It has not changed significantly in size since that time. She reports having no pain or discomfort. She has not had this repaired in the past. She denies obstructive symptoms. She says that the hernia reduces spontaneously. Of note, she has a small lesion on the uncinate process of her pancreas which is suspicious for a neuroendocrine tumor. She is scheduled for a PET CT next week. Patient Factors: Smoking: She reports that she quit smoking about 21 years ago. She started smoking about 23 years ago. She has a 2.00 pack-year smoking history. She has never used smokeless tobacco. BMI: Body mass index is 27.26 kg/m??. Previous Transplant: No Previous Cancer: Yes, describe: well-differentiated gastric carcinoid tumor Obstructions: No Previous SSI: No Diabetes: No History of MRSA: No Hernia Factors: Recurrent hernia: No Number of previous repairs: 0 Previous mesh: No Previous mesh removed: NA Past Medical History: Anemia Gastric carcinoid tumors Atrophic gastritis Depression HLD HTN Left bundle branch block Rheumatoid arthritis UTI Past Surgical History: Laparoscopic distal gastrectomy, Billroth II gastrojejunostomy (08/23/2019, Dr. Abrams) section (1989, 1991) Tubal ligation (02/2005) Endometrial ablation (09/2005) Family History: Cancer in her maternal grandmother; Colon cancer in her mother's brother; Congestive Heart Failure in her father; Dementia in her mother; Emphysema in her father; Heart attack in her brother; No Known Problems in her sister; Ovarian cancer in her mother's sister. Social History: She reports that she quit smoking about 21 years ago. She started smoking about 23 years ago. She has a 2.00 pack-year smoking history. She has never used smokeless tobacco. She reports current alcohol use of about 2.0 - 3.0 standard drinks of alcohol per week. She reports that she does not use drugs. Medications: Current Outpatient Medications: ??? ALPRAZolam (NIRAVAM) 0.5 mg disintegrating tablet, Take 0.5 mg by mouth nightly as needed for sleep 1/2 to 1 tablet nightly as needed for insomnia, Disp: , Rfl: ??? buPROPion XL (WELLBUTRIN XL) 150 mg 24 hr tablet, Take 150 mg by mouth every morning , Disp: , Rfl: ??? cholecalciferol (VITAMIN D3) 1,000 unit capsule, Take 2,000 Units by mouth daily , Disp: , Rfl: ??? cyanocobalamin (Vitamin B-12) 1,000 mcg/mL injection, Inject 1 mL (1,000 mcg total) into the muscle as instructed every 30 (thirty) days, Disp: 3 mL, Rfl: 2 ??? escitalopram (LEXAPRO) 10 mg tablet, Take 10 mg by mouth every morning , Disp: , Rfl: ??? hydroxychloroquine (PLAQUENIL) 200 mg tablet, Take 400 mg by mouth daily , Disp: , Rfl: ??? insulin syringe-needle U-100 1 mL 29 gauge x 1/2 syringe, 1 Syringe every 30 (thirty) days, Disp: 30 each, Rfl: 1 ??? multivitamin capsule, Take 1 capsule by mouth daily, Disp: , Rfl: ??? omeprazole (PriLOSEC) 20 mg capsule, Take 20 mg by mouth every morning, Disp: , Rfl: ??? pravastatin (PRAVACHOL) 40 mg tablet, Take 40 mg by mouth every morning , Disp: , Rfl: ??? valsartan-hydroCHLOROthiazide (DIOVAN-HCT) 160-12.5 mg per tablet, Take 1 tablet by mouth daily, Disp: , Rfl: Allergies: Patient has no known allergies. Review of Symptoms: A comprehensive review of systems was completed by the patient and reviewed, signed and dated in [facility]. Physical Exam: BP 108/71 (BP Location: Left arm, Patient Position: Sitting) Pulse 61 Temp 36.6 ??C (97.8 ??F) (Oral) Ht 162.6 cm (5' 4 ) Wt 72 kg (158 lb 12.8 oz) BMI 27.26 kg/m?? Body mass index is 27.26 kg/m??. GENERAL: No acute distress. NEURO: Alert and oriented x3, mood and affect appropriate. HEENT: Pupils equal. EOMs grossly normal. NECK: Supple. Trachea midline. PULMONARY: Breathing comfortably on room air. No audible wheezes. CARDIOVASCULAR: Regular rate and rhythm. No venous stasis changes. SKIN: Smooth and dry. No rashes. ABDOMEN: Soft, well healed prior laparoscopic incisions including a 12mm incision in the supraumbilical location. There is a 3-4cm hernia defect at the superior aspect of this incision which is mildly tender to palpation, reducible, and without overlying skin changes. No hepatomegaly, no splenomegaly. MUSCULOSKELETAL: Grossly normal range of motion. No limp. EXTREMITIES: Warm, well perfused. No venous stasis changes. Diagnostic studies: I personally reviewed her most recent CT abdomen/pelvis from 02/22/2020 which demonstrates a moderate-sized periumbilical hernia containing non-obstructed small bowel. There is alsoa hyperenhancing lesion of the uncinate process of the pancrease suspicious for a neuroendocrine tumor. Assessment/Plan: Fabiola Gibson is a 54 y.o. female with a moderate-size periumbilical ventral incisional hernia. We discussed the nature of the disease and options for management including observation versus surgical repair. She would prefer repair, however, we will need to wait on the results of her PET CT and discuss timing of surgical repair with her oncologist and Dr. Abrams. I believe she would be a good candidate for a robotic retrorectus ventral incisional hernia repair with mesh. Given the location of the hernia a unilateral transversus abdominis release may be necessary. The risks, benefits, and alternatives to surgery were discussed with the patient and their family. The risks of the surgery discussed in detail with the patient include, but are not limited to, bleeding, infection, enterotomy, unplanned bowel resection, intraabdominal sepsis, wound sepsis, mesh infection, enterocutaneous fistula, chronic abdominal pain, recurrent hernia, deep venous thrombosis, pulmonary embolism, myocardial infarction, stroke, renal failure, and pneumonia. We discussed the signs and symptoms of acute incarceration and she was counseled to urgently seek medical attention should these occur. She expressed understanding. We will touch base with the patient following the results of her PET CT. She asked appropriate questions and was in agreement with the plan. Resident: Arielle Etienne MD TEACHING ATTESTATION: I have seen and examined the patient along with the resident and agree with their edited note and plan as documented above. Marina Rosales MD Minimally Invasive GI Surgery & Abdominal Wall Reconstruction matrix plater [facility] documented in this encounter Plan of Treatment Not on file documented as of this encounter Visit Diagnoses Diagnosis Ventral incisional hernia- Primary documented in this encounter Orders Outpatient Referral Count Last Ordered Date Fir st Ordered Date AMB REFERRAL TO MINIMALLY INVASIVE SURGERY 1 03/22/2020 documented in this encounter Care Teams Glass Beveler Relationship Specialty Start Date End Date Barbra Goddard PA [address] [place] [address] PCP - General Physician Director Cardiovascular 02/13/20 03/24/20 Luann Lawrence, ANUP Nurse Practitioner Nurse Practitioner 01/06/19 Adarsh Tuttle MD [address] [facility] [address] [place] [address] Consulting Physician Gastroenterology 02/22/19 Sebastien Martinez DO [address] [place] [id number] Medical Oncologist/Bottle Washer Machine Hematology and Oncology 02/22/19 Guru Winters DO [address] [place] [address] Consulting Physician Gastroenterology 02/22/19 Gato Abrams MD [address] [place] [address] Surgeon Surgical Oncology 09/07/19 documented as of this encounter
--- OUTSIDE RECORDS SUMMARY | 2024-10-04 03:05 | XMS_ITS | Encounter Summary ---
Author Organization [facility] Address [address] [facility] [address] [place] [address] Care Team Providers Care Change Consultant Name Role Phone Luann Lawrence NP Unavailable Adarsh Tuttle MD Unavailable Sebastien Martinez DO Unavailable Guru Winters DO Unavailable [phone] Gato Abrams MD Unavailable Barbra Goddard Primary Care Pr ovider Encounter Details Date Type Department Care Team (Late st Contact Info) Description 02/23/[address] 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 NO clear explanation for LBBB on EKG thus far. Pt verbalized understanding. documented in this encounter Plan of Treatment Not on file documented as of this encounter Visit Diagnoses Not on filedocumented in this encounter Care Teams Change Consultant Relationship Specialty Start Date End Date Barbra Goddard PA [address] [place] [address] [id number] PCP - General Physician Stock Digger 02/13/20 03/24/20 Luann Lawrence NP Nurse Practitioner Nurse Practitioner 01/06/19 Adarsh Tuttle MD [address] [facility] [address] [place] [address] Consulting Physician Gastroenterology 02/22/19 Sebastien Martinez DO [address] [place] [address] Medical Oncologist/Electric Accounting Machine Operator Hematology and Oncology 02/22/19 Guru Winters DO [address] [place] [address] Consulting Physician Gastroenterology 02/22/19 Gato Abrams MD NPI: [id number] [place] [address] Surgeon Surgical Oncology 09/07/19 documented as of this encounter
--- OUTSIDE RECORDS SUMMARY | 2024-10-04 03:05 | XMS_ITS | Encounter Summary ---
Author Organization [facility] Address [address] [facility] [address] [place] [address] Phone Care Team Providers Care Stem Roller Name Role Phone Luann Lawrence ANUP Unavailable [phone] Adarsh Tuttle MD Unavailable [phone] Sebastien Martinez DO Unavailable [phone] Guru Winters DO Unavailable [phone] Gato Abrams MD Unavailable [phone] Barbra Goddard Primary Care Pr ovider Elizabeth Borrego Primary Care Provider [phone] Reason for Visit * Reason Onset Date Comments Scheduling Appointments 02/23/2020 Encounter Details Date Type Department Care Team (Late st Contact Info) Description 02/23/2020 Telephone [facility] Surgery [address] [facility] [address] [place] [address] Gato Abrams MD [address] [facility] [phone] [place] [address] Scheduling Appointments Social History Tobacco Use Types [...] file 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 * Telephone Encounter - Edda Apodaca RMA - 02/23/2020 9:56 AM CDT ----- Message from Gato Abrams MD sent at 02/23/2020 8:44 AM CDT ----- Telemed done. Have her see me in 6 months with repeat ppCT. documented in this encounter Plan of Treatment Not on file documented as of this encounter Visit Diagnoses Not on filedocumented in this encounter Care Teams Stem Roller Relationship Specialty Start Date End Date Barbra Goddard PA [address] [place] [address] PCP - General Physician Batter Mixer 02/13/20 03/24/20 Elizabeth Borrego PA [address] [facility] [address] [place] [address] PCP - General Internal Medicine 03/25/20 09/27/23 Luann Lawrence NP Nurse Practitioner Nurse Practitioner 01/06/19 Adarsh Tuttle MD [address] [facility] [address] [place] [address] Consulting Physician Gastroenterology 02/22/19 Sebastien Martinez DO [address] [place] [address] Medical Oncologist/Vascular Technologist Sonographer Hematology and Oncology 02/22/19 Guru Winters DO [address] [place] [address] Consulting Physician Gastroenterology 02/22/19 Gato Abrams MD [address] [place] [address] Surgeon Surgical Oncology 09/07/19 documented as of this encounter
--- OUTSIDE RECORDS SUMMARY | 2024-10-04 03:05 | XMS_ITS | Encounter Summary ---
Author Organization [facility] Address [address] [place] [address] Phone Care Team Providers Care Chain Testing Machine Operator Name Role Phone Luann Lawrence ANUP Unavailable [phone] Adarsh Tuttle MD Unavailable [phone] Sebastien Martinez DO Unavailable [phone] Guru Winters DO Unavailable [phone] Gato Abrams MD Unavailable [phone] Barbra Goddard Primary Care Pr ovider Encounter Details Date Type Department Care Team (Late st Contact Info) Description 02/28/2020 Orders Only [facility] Surgery [address] [facility] [address] [place] [address] Edda Apodaca RMA Social History Tobacco Use Types Packs/Day Years Used Date Smoking Tobacco: Former Cigarettes 1 2 1 997 - 1998 Smokeless Tobacco: Never Alcohol Use Standard Drinks/Week Comments Yes 2 (1 standard drink = 0.6 oz pur e alcohol) Comments No Sex and Gender Information Value Date Recorded Sex Assigned at Not on file 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 Gender Identity Female 06/07/2020 8:39 AM CDT Sexual Orientation Not on file 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 Not on file Not on mikie e documented as of this encounter Plan of Treatment Not on file documented as of this encounter Visit Diagnoses Not on filedocumented in this encounter Care Teams Chain Testing Machine Operator Relationship Specialty Start Date End Date Barbra Goddard PA [address] [place] [address] [id number] PCP - General Physician Hangar Attendant 02/13/20 03/24/20 Luann Lawrence, ANUP Nurse Practitioner Nurse Practitioner 01/06/19 Adarsh Tuttle MD [address] [facility] [address] [place] [address] Consulting Physician Gastroenterology 02/22/19 Sebastien Martinez DO [address] [place] [address] Medical Oncologist/Hand Washer Hematology and Oncology 02/22/19 Guru Winters DO [address] [place] [address] Consulting Physician Gastroenterology 02/22/19 Gato Abrams MD [address] [place] [address] Surgeon Surgical Oncology 09/07/19 documented as of this encounter
--- OUTSIDE RECORDS SUMMARY | 2024-10-04 03:05 | XMS_ITS | Encounter Summary ---
Author Organization [facility] Address [address] [place] [address] Care Team Providers Care Dental Appliance Mechanic Name Role Phone Luann Lawrence NP Unavailable [phone] Adarsh Tuttle MD Unavailable [phone] Sebastien Martinez DO Unavailable [phone] Guru Winters DO Unavailable [phone] Gato Abrams MD Unavailable [phone] Elizabeth Borrego Primary Care Provider [phone] Reason for Visit * Reason Comments Establish Care Encounter Details Date Type Department Care Team (Late st Contact Info) Description 03/25/2020 2:15 PM CDT Office Visit [facility] [address] [place] [address] Elizabeth Borrego PA [address] [place] [address] Annual physical exam (Primary Dx); Moderate episode of recurrent major depressive disorder (CMS/HCC); Malignant carcinoid tumor of stomach (CMS/HCC); LBBB (left bundle branch block); Dyslipidemia; HTN (hypertension), benign; Pernicious anemia; Iron deficiency anemia due to chronic blood loss; BMI 27.0-27.9,adult; Erosive osteoarthritis; Gastroesophageal reflux disease without esophagitis; Other fatigue; Breast cancer screening by mammogram Social History Tobacco Use Types Packs/Day Years [...] on file 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 Gender Identity Female 06/07/2020 8:39 AM CDT Sexual Orientation Not on file 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 Not on file Not on mikie e documented as of this encounter Last Filed Vital Signs Vital Sign Reading Time Taken Comments Blood Pressure 106/68 03/25/2020 2:22 PM CDT Pulse 54 03/25/2020 2:22 PM CDT Temperature 36.9 ??C (98.5 ??F) 03/25/2020 2:22 PM CD T Respiratory Rate - - Oxygen Saturation 97% 03/25/2020 2:22 PM CDT Inhaled Oxygen Concentration - - Weight 72.8 kg (160 lb 6.4 oz) 03/25/2020 2:22 P M CDT Height 162.6 cm (5' 4 ) 03/25/2020 2:22 PM CDT Body Mass Index 27.53 03/25/2020 2:22 PM CDT documented in this encounter Ordered Prescriptions Prescription Sig Dispense Quantity Refills Last Filled Start Date End Date buPROPion XL (WELLBUTRIN XL) 150 mg 24 hr tabletIndications: Anxiety with Depression Take 1 tablet (150 mg total) by mouth every morning 90 tablet 1 03/25/2020 0 escitalopram (LEXAPRO) 10 mg tabletIndications: Anxiety with Depression Take 1 tablet (10 mg total) by mouth every morning 90 tablet 1 03/25/2020 0 pravastatin (PRAVACHOL) 40 mg tabletIndications: hyperlipidemia Take 1 tablet (40 mg total) by mouth every morning 90 tablet 1 03/25/2020 0 valsartan-hydroCHL OROthiazide (DIOVAN-HCT) 160-12.5 mg per tabletIndications: hypertension Take 1 tablet by mouth daily 90 tablet 1 03/25/2020 0 documented in this encounter Progress Notes * Elizabeth Borrego PA - 03/25/2020 2:15 PM CDT Images from the original note were not included. Subjective/Objective Patient ID: Fabiola Gibson is a 54 y.o. female. Chief Complaint Establish Care HPI Pt presents to establish care/wellness exam. Was following with [facility] but wanted all her providers in the [facility] system. Pt underwent routine colonoscopy for screening by Dr. Winters, which was normal. Due to significant anemia, an endoscopy was done in December, by Dr. Guru Winters. This demonstrated several gastric polyps, removed successfully and demonstrated well-differentiated neuroendocrine (carcinoid) tumors. Endoscopic ultrasound (EUS) was then performed by Dr. Adarsh Tuttle on 01/13/2019, which showed no new lesions and no recurrent disease at the polypectomy sites. She continued to follow with Dr. Martinez - ONC and Dr. Abrams, Surg ONC. In May 2019, she had recurrent carcinoid tumor of the stomach. She was referred back to Dr. Abrams and underwent distal gastrectomy in 08/2019. Final pathology of the surgical specimen demonstrated two well-differentialted neuroendocrine tumors. Now has pernicious anemia -- B12 injections at home (daughter gives them) Has PET scan tomorrow to follow up pancreas spot . Dr. Rosales -- ventral incisional hernia but is probably not going to repair at this point. Rheuma -- [facility] at [facility] Erosive OA as all markers have been negative. Is still on Hydroxychloroquine 400mg daily with good results. EYE exam in April. bp stable with valsartan/HCTZ. Statin -- pravstatin. Labs were stable. Mamm - 08/2018 so due Colonsocopy - Dr. Winters 11/28/2018 CT Chest at [facility] 03/06/2020 Stable right lung nodule up to 4mm Tdap - 7 years Pap - Dr. Engle q 3-5 years. Review of Systems Constitutional: Negative for fever. HENT: Negative for congestion and ear pain. Eyes: Negative for redness. Respiratory: Negative for cough and shortness of breath. Cardiovascular: Negative for chest pain and leg swelling. Gastrointestinal: Negative for constipation, diarrhea, nausea and vomiting. Genitourinary: Negative for difficulty urinating. Musculoskeletal: Negative for myalgias. Skin: Negative for rash. Neurological: Negative for speech difficulty and headaches. Hematological: Does not bruise/bleed easily. Psychiatric/Behavioral: Negative for sleep disturbance. Vitals: 03/25/20 1422 BP: 106/68 BP Location: Left arm Patient Position: Sitting Pulse: 54 Temp: 36.9 ??C (98.5 ??F) TempSrc: Oral SpO2: 97% Weight: 72.8 kg (160 lb 6.4 oz) Height: 162.6 cm (5' 4 ) Physical Exam Vitals signs and nursing note reviewed. Constitutional: Appearance: She is well-developed. HENT: Head: Normocephalic and atraumatic. Eyes: Comments: Pupils are equal Neck: Thyroid: No thyromegaly. Cardiovascular: Rate and Rhythm: Normal rate and regular rhythm. Heart sounds: No murmur. Pulmonary: Effort: Pulmonary effort is normal. Breath sounds: Normal breath sounds. Abdominal: Palpations: Abdomen is soft. Tenderness: There is no abdominal tenderness. Comments: Hernia bulge on the right lateral to the umbilicus. Reducible. Musculoskeletal: Normal range of motion. Skin: General: [...] health. Reviewed immunizations Reviewed age appropirate screenings. Moderate episode of recurrent major depressive disorder (CMS/HCC) (F33.1) Assessment & Plan: Continue Wellbutrin and lexapro. Sxs are stable. Malignant carcinoid tumor of stomach (CMS/HCC) (C7A.092) Assessment & Plan: Continue per ONC LBBB (left bundle branch block) (I44.7) Assessment & Plan: Continue per cardio Dyslipidemia (E78.5) Assessment & Plan: Encouraged patient to continue low fat/low chol diet. Continue exercise. Increase good fats in the diet. Monitor labs as needed. Continue statin HTN (hypertension), benign (I10) Assessment & Plan: Bp is stable/in acceptable range for any co-morbidities. Encouraged to limit sodium intake and exercise for weight control. Continue diovanHCT Pernicious anemia (D51.0) Assessment & Plan: Continue B12 supplement per onc Iron deficiency anemia due to chronic blood loss (D50.0) Assessment & Plan: Continue per ONC BMI 27.0-27.9,adult (Z68.27) Assessment & Plan: Weight/BMI is in healthy range. Continue healthy lifestyle to maintain. Erosive osteoarthritis (M15.4) Assessment & Plan: Continue Plaquenil per Rheumatology Gastroesophageal reflux disease without esophagitis (K21.9) Assessment & Plan: Continue PPI Other fatigue (R53.83) Assessment & Plan: Probably multifactorial. Check labs and followup to re-evaluate Orders: - TSH; Future Breast cancer screening by mammogram (Z12.31) Assessment & Plan: Mammogram order provided Orders: - Screening Mammogram Bilateral W Jeremy; Future Other orders - valsartan-hydroCHLOROthiazide (DIOVAN-HCT) 160-12.5 mg per tablet; Take 1 tablet by mouth daily - pravastatin (PRAVACHOL) 40 mg tablet; Take 1 tablet (40 mg total) by mouth every morning - escitalopram (LEXAPRO) 10 mg tablet; Take 1 tablet (10 mg total) by mouth every morning - buPROPion XL (WELLBUTRIN XL) 150 mg 24 hr tablet; Take 1 tablet (150 mg total) by mouth every morning Elizabeth Borrego PA-C documented in this encounter Miscellaneous Notes * Assessment & Plan Note - Elizabeth Borrego PA - 03/31/2020 9:51 PM CDT Associated Problem(s): Moderate episode of recurrent major depressive disorder (HCC) Continue Wellbutrin and lexapro. Sxs are stable. * Assessment & Plan Note - Elizabeth Borrego PA - 03/31/2020 9:49 PM CDT Associated Problem(s): Breast cancer screening by mammogram Mammogram order provided * Assessment & Plan Note - Elizabeth Borrego PA - 03/31/2020 9:49 PM CDT Associated Problem(s): Chronic fatigue Probably multifactorial. Check labs and followup to re-evaluate * Assessment & Plan Note - Elizabeth Borrego PA - 03/31/2020 9:49 PM CDT Associated Problem(s): Annual physical exam Encouraged healthy lifestyle, good nutrition and exercise. Encouraged Calcium and Vitamin D and weight bearing exercise for bone health. Reviewed immunizations Reviewed age appropirate screenings. * Assessment & Plan Note - Elizabeth Borrego PA - 03/31/2020 9:49 PM CDT Associated Problem(s): Iron deficiency anemia due to chronic blood loss Continue per ONC * Assessment & Plan Note - Elizabeth Borrego PA - 03/31/2020 9:49 PM CDT Associated Problem(s): Pernicious anemia Continue B12 supplement per onc * Assessment & Plan Note - Elizabeth Borrego PA - 03/31/2020 9:49 PM CDT Associated Problem(s): Dyslipidemia (Resolved 09/23/2021) Encouraged patient to continue low fat/low chol diet. Continue exercise. Increase good fats in the diet. Monitor labs as needed. Continue statin * Assessment & Plan Note - Elizabeth Borrego PA - 03/31/2020 9:48 PM CDT Associated Problem(s): Erosive osteoarthritis Continue Plaquenil per Rheumatology * Assessment & Plan Note - Elizabeth Borrego PA - 03/31/2020 9:45 PM CDT Associated Problem(s): Gastroesophageal reflux disease without esophagitis Continue PPI * Assessment & Plan Note - Elizabeth Borrego PA - 03/31/2020 9:45 PM CDT Associated Problem(s): Malignant carcinoid tumor of stomach (HCC) Continue per ONC * Assessment & Plan Note - Elizabeth Borrego PA - 03/31/2020 9:45 PM CDT Associated Problem(s): LBBB (left bundle branch block) Continue per cardio * Assessment & Plan Note - Elizabeth Borrego PA - 03/31/2020 9:45 PM CDT Associated Problem(s): HTN (hypertension), benign Bp is stable/in acceptable range for any co-morbidities. Encouraged to limit sodium intake and exercise for weight control. Continue diovanHCT * Assessment & Plan Note - Sara Hussein MA - 03/25/2020 2:26 PM CDT Associated Problem(s): BMI 27.0-27.9,adult (Resolved 10/01/2020) Weight/BMI is in healthy range. Continue healthy lifestyle to maintain. documented in this encounter Plan of Treatment Scheduled Orders Name Type Priority Associated Diagnoses Orde r Schedule TSH Lab Routine Other fatigue Expected: 03/25/2020, Expires: 1 documented as of this encounter Procedures Procedure Name Priority Date/Time Associated Diagnosis Comments COLONOSCOPY Routine 11/28/2018 MAMMOGRAPHY Routine 08/31/2018 documented in this encounter Results * COLONOSCOPY (11/28/2018) Colonoscopy Normal Comment:hemorrhoids - Dr. Lamberto soler at [facility] [place] Historical Provider HEALTH MAINTENANCE Final Result * MAMMOGRAPHY (08/31/2018) Mammogram Normal Comment:birads 1 - [facility] Historical Provider HEALTH MAINTENANCE Final Result documented in this encounter Visit Diagnoses Diagnosis Annual physical exam- Primary Routine general medical examination at a health care facility Moderate episode of recurrent major depressive disorder (HCC) Malignant carcinoid tumor of stomach (HCC) Malignant carcinoid tumor of the stomach LBBB (left bundle branch block) Other left bundle branch block Dyslipidemia Other and unspecified hyperlipidemia HTN (hypertension), benign Essential hypertension, benign Pernicious anemia Iron deficiency anemia due to chronic blood loss Iron deficiency anemia secondary to blood loss (chronic) BMI 27.0-27.9,adult Erosive osteoarthritis Gastroesophageal reflux disease without esophagitis Esophageal reflux Other fatigue Breast cancer screening by mammogram documented in this encounter Discontinued Medications Medication Sig Discontinue Reason Start Date End Da te ALPRAZolam (NIRAVAM) 0.5 mg disintegrating tablet Take 0.5 mg by mouth nightly as needed for sleep 1/2 to 1 tablet nightly as needed for insomnia 03/25/2020 valsartan-hydroCHLOROthia zide (DIOVAN-HCT) 160-12.5 mg per tabletIndications:hyperte nsion Take 1 tablet by mouth daily Reorder 03/25/2020 pravastatin (PRAVACHOL) 40 mg tabletIndications:hyperli pidemia Take 40 mg by mouth every morning Reorder 11/15/2018 03/25/2020 escitalopram (LEXAPRO) 10 mg tabletIndications:Anxiety with Depression Take 10 mg by mouth every morning Reorder 03/25/2020 buPROPion XL (WELLBUTRIN XL) 150 mg 24 hr tabletIndications:Anxiety with Depression Take 150 mg by mouth every morning Reorder 03/12/2019 03/25/2020 documented as of this encounter Care Teams Dental Appliance Mechanic Relationship Specialty Start Date End Date Elizabeth Borrego PA [address] [place] [address] PCP - General Internal Medicine 03/25/20 09/27/23 Luann Lawrence NP Nurse Practitioner Nurse Practitioner 01/06/19 Adarsh Tuttle MD [address] [place] [address] Consulting Physician Gastroenterology 02/22/19 Sebastien Martinez DO [address] [place] [address] [address] [place] [address] Medical Oncologist/Hat Braider Hematology and Oncology 02/22/19 Guru Winters DO [address] [place] [address] [address] [place] [address] Consulting Physician Gastroenterology 02/22/19 Gato Abrams MD [address] [place] [id number] Surgeon Surgical Oncology 09/07/19 documented as of this encounter
--- OUTSIDE RECORDS SUMMARY | 2024-10-04 03:05 | XMS_ITS | Encounter Summary ---
Author Organization [facility] Address [address] [place] [address] Care Team Providers Care Asphalt Machine Operator Name Role Phone Luann Lawrence NP Unavailable [phone] Adarsh Tuttle MD Unavailable [phone] Sebastien Martinez DO Unavailable Guru Winters DO Unavailable [phone] Gato Abrams MD Unavailable Barbra Goddard Primary Care Pr ovider Encounter Details Date Type Department Care Team (Late st Contact Info) Description 02/22/2020 1:25 PM CDT Lab [facility] [address] 1st [place] [id number] Social History Tobacco Use Types Packs/Day Years Used Date Smoking Tobacco: Former Cigarettes 1 2 1 997 - 1998 Smokeless Tobacco: Never Alcohol Use Standard Drinks/Week Comments Yes 2 (1 standard drink = 0.6 oz pur e alcohol) Comments No Sex and Gender Information Value Date Recorded Sex Assigned at Not on file 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 Gender Identity Female 06/07/2020 8:39 AM CDT Sexual Orientation Not on file 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 Not on mikie e documented as of this encounter Plan of Treatment Not on file documented as of this encounter Visit Diagnoses Not on filedocumented in this encounter Care Teams Asphalt Machine Operator Relationship Specialty Start Date End Date Rupesh [employer] [address] [place] [id number] PCP - General Physician Hop Strainer 02/13/20 03/24/20 Luann Lawrence, TILE POWER SHEAR OPERATOR Nurse Practitioner Nurse Practitioner 01/06/19 Adarsh Tuttle MD [address] [place] [address] Consulting Physician Gastroenterology 02/22/19 Sebastien Martinez DO [address] [place] [id number] Medical Oncologist/Pad Extraction Tender Hematology and Oncology 02/22/19 Guru Winters DO [address] [place] [id number] Consulting Physician Gastroenterology 02/22/19 Gato Abrams MD [address] [place] [id number] Surgeon Surgical Oncology 09/07/19 documented as of this encounter
--- OUTSIDE RECORDS SUMMARY | 2024-10-04 03:05 | XMS_ITS | Encounter Summary ---
Author Organization [facility] Address [address] [place] [address] Care Team Providers Care Instructor Correspondence School Name Role Phone Luann Lawrence NP Unavailable [phone] Adarsh Tuttle MD Unavailable [phone] Sebastien Martinez DO Unavailable [phone] Guru Winters DO Unavailable [phone] Gato Abrams MD Unavailable Barbra Goddard Primary Care Pr ovider Reason for Visit * Reason Comments Follow-up 1 mo follow up on dy slipidemia, HTN, LBBB, palps, PACs Encounter Details Date Type Department Care Team (Late st Contact Info) Description 03/08/2020 3:45 PM CDT Telemedicine [facility] Cardiology [address] [place] [address] Rowdy Marroquin MD [address] [facility] [address] [place] [address] HTN (hypertension), benign (Primary Dx); LBBB (left bundle branch block); Palpitations; Premature atrial contractions; Dyslipidemia; 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 Social History Tobacco Use Types Packs/Day Years Used Date Smoking Tobacco: Former Cigarettes 1 2 1 7 - 1998 Smokeless Tobacco: Never Alcohol Use Standard Drinks/Week Comments Yes 2 (1 standard drink = 0.6 oz pur e alcohol) Comments No Sex and Gender Information Value Date Recorded Sex Assigned at Not on file 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 Gender Identity Female 06/07/2020 8:39 AM CDT Sexual Orientation Not on file 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 [facility] DATE OF VISIT: 03/08/2020 CHIEF COMPLAINT Chief Complaint Patient presents with ??? 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 Left bundle-branch block chronicity unknown. Discussed how the finding of left bundle-branch block is pathologic. Discussed potential contributions, implications, and need for further workup and monitoring. -2D Echo 02/21/20 personally reviewed and discussed EF 60-65% -Discussed generally benign nature of incidentally noted Lambl's excresence on AV. Context is important, no h/o embolic events/CVA. Clinical observation for now. 2. BP marginally controlled. Monitor BP on routine basis. Call with readings. Continue consistent cardiovascular exercise, weight loss, medication compliance, and low-sodium diet. 3. Lipids personally reviewed from 08/2019 LDL 70, well controlled. Continue statin therapy and lifestyle modification. 4. Lifestyle modification counseling performed. Weight loss, exercise, reduction in caloric intake. 5. With regards to potential contribution from hydroxychloroquine, there have been reports a progressive cardiomyopathy/heart failure as well as right and/or left bundle-branch block. Patient is clinically asymptomatic in this regard in the such I cannot state with certainty Plaquenil is contributing to left bundle- branch block development. 6. Follow-up with GI with regards to observation/management for history of gastric carcinoid 7. Discussed at length utility and limitations of obtaining a stress test particularly as she is completely asymptomatic. Depending upon anticipated surgical risk and duration of anesthesia, an ischemic evaluation may be considered as she has never undergone such an evaluation given LBBB. However, as LBBB is not a new finding, she underwent surgery in the past without complication with known LBBB, has no anginal sxs, good exercise tolerance and remains quite physically active, and has preservedLV systolic function, it is reasonable to proceed with lower to intermediate risk surgery without ischemic evaluation. We will need to make that decision as appropriate in context. -She was encouraged to contact our office with regard for surgical plans as she may need hernia repair in near future depending upon results of PET scan. All questions answered to the patient's satisfaction. Further recommendations to follow after review of the above studies. Over 50% of this visit counseling LBBB, HTN, lipids, medications, lifestyle modification. Follow up in the office in 6 months or sooner as needed. Thank you for allowing me the privilege of participating in the care this very pleasant patient. Please do not hesitate to contact me with any additional questions or concerns. DANNY Gibson is a 54 y.o. female with a PMHx of hypertension, [...] upper endoscopy. She underwent partial gastrectomy at [facility] without complication. She states over 20 years ago she had seen a gerontology aide after being told she had an irregular heartbeat for which she wore a Holter monitor and wasplaced on atenolol. She took this medication for several years but does not recall a specific diagnosis. She admits she did not follow-up with a gerontology aide after seeing him initially. She has now [...] apnea. 03/08/20 This was a telemedicine visit with Fabiola Gibson alone which took place via Real-time video connection InTo[employer]elalox, Xueersiom or similar). During the visit, I was located [facility] [place] office and the patient was located at home. The session started at 1707 and ended at 1736. The patient has been informed that the [...] billed and/or responsible for any applicable copayments. Rowdy Marroquin MD -Saw Oncologist today CT spot on pancreas, PET scan at [facility] for clarification and if present further workup and possible biopsy. Still feeling well no CP or SOB, no new limitations. Echo done at [facility] 02/21/20 EF 60-65% Lambl's excresence noted on AV, no other valve pathology. No focal weakness,edema, palps, near syncope or syncope. She is still dealing with the news from earlier today with Dr. Martinez. She is still exercising without limitation. MEDICAL HISTORY Past Medical History: Diagnosis Date ??? Anemia ??? Cancer (CMS/HCC) ??? Carcinoid tumor of stomach ??? Depression ??? Heart murmur ??? Hyperlipidemia ??? Hypertension ??? Left bundle branch block ??? Rheumatoid arthritis (CMS/HCC) ??? Urinary tract infection Social History Tobacco Use ??? Smoking status: Former Smoker Packs/day: 1.00 Years: 2.00 Pack years: 2.00 Start date: 1996 Last attempt to quit: 1998 Years since quittin.4 ??? Smokeless tobacco: Never Used Substance Use [...] cancer Mother's Brother ??? Cancer Maternal Grandmother MEDICATIONS HOME MEDICATIONS : ALPRAZolam (NIRAVAM) 0.5 mg disintegrating tablet buPROPion XL (WELLBUTRIN XL) 150 mg 24 hr tablet cholecalciferol (VITAMIN D3) 1,000 unit capsule cyanocobalamin (Vitamin B-12) 1,000 mcg/mL injection escitalopram (LEXAPRO) 10 mg tablet hydroxychloroquine (PLAQUENIL) 200 mg tablet insulin syringe-needle U-100 1 mL 29 gauge x 1/2 syringe multivitamin capsule omeprazole (PriLOSEC) 20 mg capsule pravastatin (PRAVACHOL) 40 mg tablet valsartan-hydroCHLOROthiazide (DIOVAN-HCT) 160-12.5 mg per tablet acetaminophen 500 mg capsule gabapentin (NEURONTIN) 300 mg capsule ondansetron ODT (ZOFRAN-ODT) 4 mg disintegrating tablet oxyCODONE (ROXICODONE) 5 mg immediate release tablet ALLERGIES No Known Allergies REVIEW OF SYSTEMS Review of Systems Constitution: Negative for decreased appetite, diaphoresis, fever, malaise/fatigue, night sweats, weight gain and weight loss. HENT: Negative for hearing loss and nosebleeds. Eyes: Negative for blurred vision and pain. Cardiovascular: Negative for chest pain, claudication, dyspnea on exertion, irregular heartbeat, leg swelling, near-syncope, orthopnea, palpitations and syncope. Respiratory: Negative for cough, hemoptysis, [...] for environmental allergies. PHYSICAL EXAM Vitals BP 123/72 Pulse 62 Ht 162.6 cm (5' 4 ) Wt 71.7 kg (158 lb) BMI 27.12 kg/m?? Weight: 71.7 kg (158 lb) Height: 162.6 cm (5' 4 ) Body mass index is 27.12 kg/m??. On video today, the patient appeared in no distress, alert and oriented x3, breathing comfortably and speaking in full sentences. Answering questions appropriately. Head atraumatic normocephalic. Observed facial features unremarkable with normal external visualization of the eyes, nose and mouth. No rmal facial symmetry. Mood calm and appropriate. LABS AND OTHER DIAGNOSTIC TESTS Lab Results Component Value Date WBC 5.3 08/26/2019 HGB 8.8 (L) 08/26/2019 HCT 28.1 (L) 08/26/2019 CREATININE 0.7 02/22/2020 POTASSIUM 4.1 08/26/2019 BUNSER 16 08/26/2019 Results for orders placed or performed during the hospital encounter of 02/22/20 POCT creatinine Result Value Ref Range Creatinine POC 0.7 0.6 - 1.1 mg/dL Personally reviewed EKG, Echocardiogram 02/21/20 [facility] EF 60% Lambl's on AV and bloodwork/lipids. Antonia Marroquin MD, [facility] This note is dictated and transcribed using [employer] Direct Software. Sales Designer variancesmay occur. Despite proofreading, typographical errors may occur. 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 documented in this encounter Discontinued Medications Medication Sig Discontinue Reason Start Date End Da te oxyCODONE (ROXICODONE) 5 mg immediate release tabletIndications:Pain Take 1 tablet (5 mg total) by mouth every 4 (four) hours as needed for pain Therapy completed 08/27/2019 03/08/2020 acetaminophen 500 mg capsule Take 2 capsules (1,000 mg total) by mouth every 6 (six) hours Therapy completed 08/27/2019 03/08/2020 gabapentin (NEURONTIN) 300 mg capsule Take 1 capsule (300 mg total) by mouth 3 (three) times a day Therapy completed 08/27/2019 03/08/2020 ondansetron ODT (ZOFRAN-ODT) 4 mg disintegrating tablet Take 1 tablet (4 mg total) by mouth every 4 (four) hours as needed for nausea or vomiting Therapy completed 08/27/2019 03/08/2020 documented as of this encounter Care Teams Instructor Correspondence School Relationship Specialty Start Date End Date Barbra Goddard PA [address] [place] [id number] PCP - General Physician Sorter Operator 02/13/20 03/24/20 Luann Lawrence NP Nurse Practitioner Nurse Practitioner 01/06/19 Adarsh Tuttle MD [address] [facility] [address] [place] [address] Consulting Physician Gastroenterology 02/22/19 Sebastien Martinez DO [address] [place] [address] [id number] Medical Oncologist/Signs Sales Representative Hematology and Oncology 02/22/19 Guru Winters DO [address] [place] [address] [id number] Consulting Physician Gastroenterology 02/22/19 Gato Abrams MD [address] [place] [address] [phone] Surgeon Surgical Oncology 09/07/19 documented as of this encounter
--- OUTSIDE RECORDS SUMMARY | 2024-10-04 03:05 | XMS_ITS | Encounter Summary ---
Author Organization [facility] Address [address] [place] [address] Phone Care Team Providers Care Loss Prevention Investigator Name Role Phone Luann Lawrence ANUP Unavailable [phone] Adarsh Tuttle MD Unavailable [phone] Sebastien Martinez DO Unavailable [phone] Guru Winters DO Unavailable [phone] Gato Abrams MD Unavailable [phone] Barbra Goddard Primary Care Pr ovider Encounter Details Date Type Department Care Team (Late st Contact Info) Description 02/20/2020 Telephone [facility] Oncology [address] [place] [address] [place] [phone] Anna Kelly, A Social History Tobacco Use Types Packs/Day Years Used Date Smoking Tobacco: Former Cigarettes 1 2 1 997 - 1998 Smokeless Tobacco: Never Alcohol Use Standard Drinks/Week Comments Yes 2 (1 standard drink = 0.6 oz pur e alcohol) Comments No Sex and Gender Information Value Date Recorded Sex Assigned at Not on file 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 Martinez he would like patient to keep the CT that is scheduled with Dr. Abrams and we can cancel the one that Dr. Martinez ordered. Called [facility] and canceled that apt. Let patient know and also let her know that she could keep her apt with Dr. Martinez on March 08 Anna BISHOP * Telephone Encounter - Anna Kelly, MEE - 02/20/2020 8:30 AM CDT Patient called stating she is having a CT on March [address] Martinez then March 08. She has noticed a lump right above where her incision Sight from her surgery with Dr. Abrams. She contacted Dr. Abrams office and they wanted her to get a CT done. She let them know she is already getting aCT Chest and Abdomen, they would like the pelvis added on if we can do that. Otherwise she will have to go to [facility] and get a separate CT done. Also she was suppose to see Dr. Winters before seeing Dr. Martinez and have an EGD done. Because of COVID 19 she has not been able to do this. She spoke theiroffice yesterday and there is a possibility they may be able to see her on the since they are allowing elective procedures now but she is not for sure. If she does not get this done before then does he still want to see her. Anna BISHOP documented in this encounter Plan of Treatment Not on file documented as of this encounter Visit Diagnoses Not on filedocumented in this encounter Care Teams Loss Prevention Investigator Relationship Specialty Start Date End Date Barbra Goddard PA [address] [place] [id number] PCP - General Physician Home Restoration Service Cleaner 02/13/20 03/24/20 Luann Lawrence, ANUP Nurse Practitioner Nurse Practitioner 01/06/19 Adarsh Tuttle MD [address] [facility] [address] [place] [address] Consulting Physician Gastroenterology 02/22/19 Sebastien Martinez DO [address] [place] [id number] Medical Oncologist/Rigger Apprentice Hematology and Oncology 02/22/19 Guru Winters DO [address] [place] [id number] Consulting Physician Gastroenterology 02/22/19 Gato Abrams MD [address] [place] [id number] Surgeon Surgical Oncology 09/07/19 documented as of this encounter
--- OUTSIDE RECORDS SUMMARY | 2024-10-04 03:05 | XMS_ITS | Encounter Summary ---
Author Organization [facility] Address [address] [place] [address] Phone Care Team Providers Care Manpower Development Advisor Name Role Phone MelindaLuann Aditya HEBERT Unavailable [phone] Adarsh Tuttle MD Unavailable [phone] Vick Li DO Unavailable [phone] Guru Winters DO Unavailable [phone] Gato Abrams MD Unavailable [phone] Barbra Goddard Primary Care Pr ovider Reason for Referral * MRI/CAT/PET Scan (Routine) - Closed Specialty Diagnoses / Procedures Referred By Clemencia mendez Referred To Contact Radiology Diagnoses Malignant carcinoid tumor of stomach (HCC) Procedures PET/CT Ga-68 Dotatate Skull to Thigh Vick Li DO [address] [address] Phone: tel: fax: [address] [address] Referral ID Status Reason Start Date Expiration Date Visits Re quested Visits Authorized [id number] Closed 03/08/2020 09/17/2021 1 1 Reason for Visit * Reason Comments Follow-up Encounter Details Date Type Department Care Team ([facility] st Contact Info) Description 03/08/2020 8:45 AM CDT Office Visit [facility] Oncology [address] [facility] [address] [place] [address] Vick Li DO [address] [address] 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); Pernicious anemia Social History Tobacco Use Types Packs/Day Years Used Date Smoking Tobacco: Former Cigarettes 1 2 1 997 - 1998 Smokeless Tobacco: Never Alcohol Use Standard Drinks/Week Comments Yes 2 (1 standard drink = 0.6 oz pur e alcohol) Comments No Sex and Gender Information Value Date Recorded Sex Assigned at Not on file 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 Gender Identity Female 06/07/2020 8:39 AM CDT Sexual Orientation Not on file 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 female. Primary Care Provider: NBA Ward Assessment/Plan 1. 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 2. Pernicious anemia. 3. Indeterminate 6 mm hyperenhancing lesion in the uncinate process of the pancreas noted on recentsurveillance CT scan. Recommendations: 1. At this visit, I did discuss and did also show the images of the recent CT scan outlining this small hyperenhancing lesion seen in the uncinate process of the pancreas. 2. This is a different location than the previous lesion noted on PET-CT scan in January of 2019. At that time it was at the head of the pancreas and measured 15 mm. 3. She remains asymptomatic without any signs of carcinoid syndrome. 4. I need to confirm this lesion by 2nd radiographic test in determining further investigative procedures. Therefore, I will schedule her for PET CT gallium DOTATATE scan at [facility] in the next 1-2 weeks. After that, she and I will discuss the results over the telephone and make further recommendations. 5. For now, she will continue to follow up with her physicians and remain on active surveillance. 6. She will need a repeat endoscopy this summer of this will be based on upcoming PET scan results. Patient Active Problem List Diagnosis ??? Malignant carcinoid tumor of stomach (CMS/HCC) ??? Carcinoid tumor of stomach ??? Pernicious anemia ??? Gastric carcinoma (CMS/HCC) ??? Iron deficiency anemia due to chronic blood loss ??? HTN (hypertension), benign ??? Dyslipidemia ??? LBBB (left bundle branch block) ??? Palpitations ??? Premature atrial contractions ??? 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 Tuttle at [facility] for EUS evaluation. Thiswas performed on [...] A in May was better but still [id number]. 12. At my last visit in May, we had a long discussion and I [...] removed without any abnormality. 14. Recently, she developed a ventral hernia and did see Dr. Abrams through telemedicine visit earlier this month. She schedule see a general surgeon to repair the ventral hernia. She denies any constipation or pain or discomfort. 15. She returns for her follow-up visit with me after undergoing surveillance CT imaging for recurrent carcinoid tumor. At this visit, she denies any symptoms and overall doing well outside of the ventral hernia. She continues to be on vitamin B12 injections for her pernicious anemia. Interval Notes: I have reviewed: allergies, current [...] this encounter: BSA: 1.82 meters squared BP 123/72 (BP Location: Left arm) Pulse 62 Ht 162.6 cm (5' 4 ) Wt 73.5 kg (162 lb) SpO2 99% BMI 27.81 kg/m?? Physical Exam Constitutional: Appearance: She is [...] sounds are normal. Palpations: Abdomen is soft. Hernia: A hernia (Upper abdominal ventral hernia that is easily reducible) is present. Musculoskeletal: Normal range of motion. Skin: General: Skin is warm and dry. Neurological: Mental Status: She is alert and oriented to person, place, and time. Psychiatric: Behavior: Behavior normal. Performance Status: Asymptomatic Results: WBC Date Value Ref Range Status 08/26/2019 5.3 3.8 - 9.9 K/cumm Final Hgb Date Value Ref Range Status 08/26/2019 8.8 (L) 11.9 - 15.5 g/dL Final Hct Date Value Ref Range Status 08/26/2019 28.1 (L) 35.6 - 45.5 % Final Plt Date Value Ref Range Status 08/26/2019 299 150 - 400 K/cumm Final Creatinine Date Value Ref Range Status 08/26/2019 0.79 0.60 - 1.10 mg/dL Final Creatinine POC Date Value Ref Range Status 02/22/2020 0.7 0.6 - 1.1 mg/dL Final AST Date Value Ref Range Status 08/24/2019 38 10 - 45 Units/L Final upon my review of the images and the report, CT scan of the chest, abdomen pelvis with contrast performed last week shows the following: IMPRESSION: 1. Hyperenhancing lesion in the uncinate process of the pancreas, suspicious for neuroendocrine tumor, especially given reported lesion seen on outside hospital Dotatate scan. It would be helpful to correlate this lesion with those images if available. 2. Postsurgical changes from distal gastrectomy and Billroth II gastrojejunostomy. documented in this encounter Plan of Treatment Not on file documented as of this encounter Results * PET/CT Ga-68 Dotatate Skull to Thigh (03/26/2020 4:14 PM CDT) Anatomical Region Laterality Modality Positron Emissio n Tomography (PET) 03/26/2020 5:18 PM CDT Impressions 03/26/2020 5:50 PM CDT 1. ??Marked focal DOTATATE avidity in the uncinate process of pancreas corresponds to the prior CT findings consistent with somatostatin positive receptor tumor. ??No DOTATATE evidence for distant metastatic disease. 2. ??Midline incisional hernia with nonobstructed loop of colon. Dictated by: Adolfo Martinez M.D. The radiology attending physician has personally reviewed this study, and had reviewed and/or edited this written report and agrees with it. Electronically signed by: Zaina Angela M.D. Narrative 03/26/2020 5:50 PM CDT EXAMINATION: Ga-68 DOTATATE -PET/CT IMAGING DATE OF STUDY: ??03/26/2020 SCANNER: mCT RADIOPHARMACEUTICAL: 3.9 mCi Ga-68 dotatate i.v. ??Injection site: Left anterior cubital fossa HISTORY: 54-year-old woman with gastric carcinoid status post distal gastrectomy. ??Recent CT examination obtained on 02/22/2020 demonstrated a hyperenhancing lesion in the uncinate process of the pancreas. ??The study is requested for detection of suspected recurrence. Subsequent treatment strategy. TECHNIQUE: ??After intravenous administration of Ga-68 dotatate, noncontrast CT images were obtained for attenuation correction and for fusion with emission PET images to allow for anatomical localization of PET findings. ??Emission PET images were then obtained. ??The study was interpreted on the [employer] workstation. ?? Scanned area: skull vertex to the proximal thighs; the time from injection of tracer to start of imaging for this scan position was 52 minutes. COMPARISON: No prior PET/CT is available for comparison. ??Images of outside hospital PET examination are not available, however prior CT examination obtained on 02/22/2020 reviewed. FINDINGS: In the uncinate process of the pancreas there is a focus of marked DOTATATE uptake best appreciated on axial image 221, corresponding to prior contrast enhanced CT findings. Postsurgical changes of distal gastrectomy are noted with no suspicious tracer uptake in the surgical bed. No other suspicious areas of DOTATATE uptake are noted to suggest remote metastatic disease. Faint DOTATATE avidity involving the left axillary lymph node best appreciated on axial image 134 and mild DOTATATE uptake in the inguinal lymph nodes are likely reactive, not suspicious. Additional CT findings: Right carotid artery calcification. Ventral incisional hernia is noted containing a nonobstructed loop of transverse colon. ??Fibroid uterus. Multiple sub-4 mm groundglass pulmonary nodules, below resolution of PET, the largest is seen on axial image 160 measuring 4 mm. Procedure Note Zaina Angela MD - 03/26/2020 EXAMINATION: Ga-68 DOTATATE -PET/CT IMAGING DATE OF STUDY: 03/26/2020 SCANNER: mCT RADIOPHARMACEUTICAL: 3.9 mCi Ga-68 dotatate i.v. Injection site: Left anterior cubital fossa HISTORY: 54-year-old woman with gastric carcinoid status post distal gastrectomy. Recent CT examination obtained on 02/22/2020 demonstrated a hyperenhancing lesion in the uncinate process of the pancreas. The study is requested for detection of suspected recurrence. Subsequent treatment strategy. TECHNIQUE: After intravenous administration of Ga-68 dotatate, noncontrast CT images were obtained for attenuation correction and for fusion with emission PET images to allow for anatomical localization of PET findings. Emission PET images were then obtained. The study was interpreted on the [employer] workstation. Scanned area: skull vertex to the proximal thighs; the time from injection of tracer to start of imaging for this scan position was 52 minutes. COMPARISON: No prior PET/CT is available for comparison. Images of outside hospital PET examination are not available, however prior CT examination obtained on 02/22/2020 reviewed. FINDINGS: In the uncinate process of the pancreas there is a focus of marked DOTATATE uptake best appreciated on axial image 221, corresponding to prior contrast enhanced CT findings. Postsurgical changes of distal gastrectomy are noted with no suspicious tracer uptake in the surgical bed. No other suspicious areas of DOTATATE uptake are noted to suggest remote metastatic disease. Faint DOTATATE avidity involving the left axillary lymph node best appreciated on axial image 134 and mild DOTATATE uptake in the inguinal lymph nodes are likely reactive, not suspicious. Additional CT findings: Right carotid artery calcification. Ventral incisional hernia is noted containing a nonobstructed loop of transverse colon. Fibroid uterus. Multiple sub-4 mm groundglass pulmonary nodules, below resolution of PET, the largest is seen on axial image 160 measuring 4 mm. IMPRESSION: 1. 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 No DOTATATE evidence for distant metastatic disease. 2. Midline incisional hernia with nonobstructed loop of colon. Dictated by: Adolfo Martinez M.D. The radiology attending physician has personally reviewed this study, and had reviewed and/or edited this written report and agrees with it. Electronically signed by: Zaina Angela M.D. us Vick Li DO IMG PET PROCEDURES Final Res ult documented in this encounter Visit Diagnoses Diagnosis Malignant carcinoid tumor of stomach (HCC)- Primary Malignant carcinoid tumor of the stomach Pernicious anemia Malignant carcinoid tumor of stomach (HCC) Malignant carcinoid tumor of the stomach documented in this encounter Orders Appointment Requests Count Last Ordered Date Fi rst Ordered Date ONCBCN CLINIC APPOINTMENT REQUEST 1 020 documented in this encounter Care Teams Manpower Development Advisor Relationship Specialty Start Date End Date Barbra Goddard PA [address] [place] [address] PCP - General Physician Credit Union Examiner 02/13/20 03/24/20 Luann Lawrence NP Nurse Practitioner Nurse Practitioner 01/06/19 Adarsh Tuttle MD [address] [address] Consulting Physician Gastroenterology 02/22/19 Vick Li DO [address] [place] [address] Medical Oncologist/Industrial Relations Specialist Hematology and Oncology 02/22/19 Guru Winters DO [address] [place] [address] Consulting Physician Gastroenterology 02/22/19 Gato Abrams MD [address] [place] [address] Surgeon Surgical Oncology 09/07/19 documented as of this encounter
--- OUTSIDE RECORDS SUMMARY | 2024-10-04 03:05 | XMS_ITS | Encounter Summary ---
Author Organization [facility] Address [address] [place] [address] Phone Care Team Providers Care Golf Sales Manager Name Role Phone Luann Lawrence ANUP Unavailable [phone] Adarsh Tuttle MD Unavailable [phone] Sebastien Martinez DO Unavailable [phone] Guru Winters DO Unavailable [phone] Gato Abrams MD Unavailable [phone] Elizabeth Borrego Primary Care Provider [phone] Reason for Visit * Reason Onset Date Comments GI f/u appt 04/23/2020 Encounter Details Date Type Department Care Team (Late st Contact Info) Description 04/23/[address] 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 Winters LMOM for pt to return call to schedule follow-up appt for EGD/EUS with Dr. Garcia. Asked pt to return call to schedule appt at her earliest convenience. documented in this encounter Plan of Treatment Not on file documented as of this encounter Visit Diagnoses Not on filedocumented in this encounter Care Teams Golf Sales Manager Relationship Specialty Start Date End Date Elizabeth Borrego PA [address] [facility] [address] [place], [place] [id number] PCP - General Internal Medicine 03/25/20 09/27/23 Luann Lawrence, ANUP Nurse Practitioner Nurse Practitioner 01/06/19 Adarsh Tuttle MD [address] [facility] [address] [place] [address] Consulting Physician Gastroenterology 02/22/19 Sebastien Martinez DO [address] [place] [address] Medical Oncologist/Retail Planner Hematology and Oncology 02/22/19 Guru Winters DO [address] [place] [address] Consulting Physician Gastroenterology 02/22/19 Gato Abrams MD [address] [place] [address] Surgeon Surgical Oncology 09/07/19 documented as of this encounter
--- OUTSIDE RECORDS SUMMARY | 2024-10-04 03:05 | XMS_ITS | Encounter Summary ---
Author Organization [facility] Address [address] [place] [address] Care Team Providers Care Handling Tech Name Role Phone Luann Lawrence NP Unavailable [phone] Adarsh Tuttle MD Unavailable [phone] Sebastien Martinez DO Unavailable Guru Winters DO Unavailable [phone] Gato Abrams MD Unavailable [phone] Elizabeth Borrego Primary Care Provider [phone] Encounter Details Date Type Department Care Team (Late st Contact Info) Description 04/26/2020 7:55 PM CDT Lab [address] [address] Pre-op testing Social History Tobacco Use Types Packs/Day Years [...] on file 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 Gender Identity Female 06/07/2020 8:39 AM CDT Sexual Orientation Not on file 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 The 2019-Novel [...] Data was last revised on 2020. Nasopharyngeal 04/26/2020 3: 03 PM CDT 04/26/2020 11:58 PM CDT Narrative [facility] - 04/27/2020 11:34 AM CDT Is the patient experiencing any symptoms consistent with COVID (eg. Fever, cough, shortness of breath)?->No What is the reason for testing?->Screening prior to scheduled (>12 hr) surgery or procedure us Agustin Brown MD LAB MICROBIOLOGY - GENERAL ORDERABLES Final Result [facility] [place] [address] documented in this encounter Visit Diagnoses Diagnosis Pre-op testing Unspecified pre-operative examination documented in this encounter Additional Health Concerns Infection Onset Date Last Indicated Resolved Time COVID: Suspected 04/25/2020 04/25/2020 04/28/2020 11:35 AM CDT documented as of this encounter Care Teams Handling Tech Relationship Specialty Start Date End Date Elizabeth Borrego PA [address] [place] [address] PCP - General Internal Medicine 03/25/20 09/27/23 Luann Lawrence, ANUP Nurse Practitioner Nurse Practitioner 01/06/19 Adarsh Tuttle MD [address] [facility] [address] [place] [address] Consulting Physician Gastroenterology 02/22/19 Sebastien Martinez DO [address] [place] [address] Medical Oncologist/Ferry Terminal Supervisor Hematology and Oncology 02/22/19 Guru Winters DO [address] [place] [address] Consulting Physician Gastroenterology 02/22/19 Gato Abrams MD [address] [place] [address] Surgeon Surgical Oncology 09/07/19 documented as of this encounter
--- OUTSIDE RECORDS SUMMARY | 2024-10-04 03:05 | XMS_ITS | Encounter Summary ---
Author Organization [facility] Address [address] [place] [address] Phone Care Team Providers Care Gauger Chief Name Role Phone Luann Lawrence ANUP Unavailable [phone] Adarsh Tuttle MD Unavailable [phone] Sebastien Martinez DO Unavailable [phone] Guru Winters DO Unavailable [phone] Gato Abrams MD Unavailable [phone] Elizabeth Borrego Primary Care Provider [phone] Encounter Details Date Type Department Care Team (Late st Contact Info) Description 04/16/2020 Orders Only [facility] Physicians [facility] Oncology [address] [facility] [address] [place] [address] Bárbara Dunn CMA Malignant carcinoid tumor of stomach (CMS/HCC) (Primary [...] on file 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 Gender Identity Female 06/07/2020 8:39 AM CDT Sexual Orientation Not on file 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 [...] 020 documented in this encounter Care Teams Gauger Chief Relationship Specialty Start Date End Date Elizabeth Borrego PA [address] [facility] [address] [place] [address] PCP - General Internal Medicine 03/25/20 09/27/23 Luann Lawrenec NP Nurse Practitioner Nurse Practitioner 01/06/19 Adarsh Tuttle MD [address] [facility] [address] [place] [address] Consulting Physician Gastroenterology 02/22/19 Sebastien Martinez DO [address] [place] [address] Medical Oncologist/Manager Entry Hematology and Oncology 02/22/19 Guru Winters DO [address] [place] [address] Consulting Physician Gastroenterology 02/22/19 Gato Abrams MD [address] [place] [id number] Surgeon Surgical Oncology 09/07/19 documented as of this encounter
--- OUTSIDE RECORDS SUMMARY | 2024-10-04 03:05 | XMS_ITS | Encounter Summary ---
Author Organization [facility] Address [address] [place] [address] Phone Care Team Providers Care Surface Hydrologist Name Role Phone MelindaLuann oh Aditya HEBERT Unavailable [phone] Adarsh Tuttle MD Unavailable [phone] Sebastien Martinez DO Unavailable [phone] Guru Winters DO Unavailable [phone] Gato Abrams MD Unavailable [phone] Barbra Goddard Primary Care Pr ovider Reason for Referral * Diagnostic Imaging (Routine) - Closed Specialty Diagnoses / Procedures Referred By Clemencia mendez Referred To Contact Radiology Diagnoses Inguinal hernia without obstruction or gangrene, recurrence not specified, unspecified laterality Procedures CT Abdomen Pelvis W Contrast CT abdomen pelvis with and without contrast Gato Abrams MD [address] [place] [address] Phone: tel: fax: [address] [address] Referral ID Status Reason Start Date Expiration Date Visits Re quested Visits Authorized [id number] Closed 02/19/2020 08/30/2021 1 1 Encounter Details Date Type Department Care Team (Late st Contact Info) Description 02/19/2020 Orders Only [facility] Surgery [address] [facility] Floor 1 [place] [address] Gato Abrams MD [address] [id number] [place] [address] Inguinal hernia without obstruction or gangrene, recurrence not specified, unspecified laterality (Primary Dx) Social History Tobacco Use Types Packs/Day Years Used Date Smoking Tobacco: Former Cigarettes 1 2 1 7 - 1998 Smokeless Tobacco: Never Alcohol Use Standard Drinks/Week Comments Yes 2 (1 standard drink = 0.6 oz pur e alcohol) Comments No Sex and Gender Information Value Date Recorded Sex Assigned at Not on file Legal Sex Female 2:22 AM PIN WORKER Gender Identity Female 06/07/2020 8:39 AM CDT Sexual Orientation Not on file 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 documented in this encounter Plan of Treatment Not on file documented as of this encounter Results * CT Abdomen Pelvis W Contrast (02/22/2020 2:12 PM CDT) Anatomical Region Laterality Modality Body N/A Computed Tomogra phy 02/22/2020 2:29 PM CDT Impressions 02/22/2020 2:29 PM CDT 1. ??Hyperenhancing lesion in the uncinate process of the pancreas, suspicious for neuroendocrine tumor, especially given reported lesion seen on outside hospital Dotatate scan. ??It would be helpful to correlate this lesion with those images if available. 2. ??Postsurgical changes from distal gastrectomy and Billroth II gastrojejunostomy. Electronically signed by: Raya Jennings M.D. Narrative 02/22/2020 2:29 PM CDT EXAMINATION: CT ABDOMEN AND PELVIS WITH CONTRAST HISTORY: 54-year-old woman with atrophic gastritis and well-differentiated gastric carcinoid tumors, status post distal gastrectomy and Billroth II gastrojejunostomy on 08/23/2019. TECHNIQUE: Computed tomographic images of the abdomen and pelvis were obtained after the uneventful administration of 100 mL of Optiray-350 intravenous contrast, according to the standard protocol. FINDINGS: Comparison is made to MRI dated 05/25/2019. The visualized lung bases are clear. ??The heart is normal in size without pericardial effusion. ??No focal hepatic lesion is seen. ??No biliary duct dilation is present. ??The gallbladder is normal. ??The portal and splenic veins are patent. ??The spleen is normal. ??There is an arterially hyperenhancing lesion within the uncinate process of the pancreas measures 6 mm (slice 87/257). ??The adrenal glands are normal. ??The kidneys enhance symmetrically. ??No hydronephrosis is seen. ??The celiac and superior mesenteric arteries are patent. The urinary bladder is normal. ??Uterus is normal. ??No adnexal masses seen. ??No gastrointestinal tract obstruction is seen. ??There is a ventral hernia containing nonobstructed bowel with the neck measuring approximately 2.8 cm. ??No extraluminal gas or intraperitoneal free fluid is seen. ??No abdominal or pelvic lymphadenopathy is seen. Postsurgical changes from distal gastrectomy with Billroth II gastrojejunostomy formation. No suspicious lytic or blastic osseous lesion is seen. ??A dense sclerotic focus within the right iliac bone likely represents bone island. Procedure Note Raya Jennings MD - 02/22/2020 EXAMINATION: CT ABDOMEN AND PELVIS WITH CONTRAST HISTORY: 54-year-old woman with atrophic gastritis and well-differentiated gastric carcinoid tumors, status post distal gastrectomy and Billroth II gastrojejunostomy on 08/23/2019. TECHNIQUE: Computed tomographic images of the abdomen and pelvis were obtained after the uneventful administration of 100 mL of Optiray-350 intravenous contrast, according to the standard protocol. FINDINGS: Comparison is made to MRI dated 05/25/2019. The visualized lung bases are clear. The heart is normal in size without pericardial effusion. No focal hepatic lesion is seen. No biliary duct dilation is present. The gallbladder is normal. The portal and splenic veins are patent. The spleen is normal. There is an arterially hyperenhancing lesion within the uncinate process of the pancreas measures 6 mm (slice 87/257). The adrenal glands are normal. The kidneys enhance symmetrically. No hydronephrosis is seen. The celiac and superior mesenteric arteries are patent. The urinary bladder is normal. Uterus is normal. No adnexal masses seen. No gastrointestinal tract obstruction is seen. There is a ventral hernia containing nonobstructed bowel with the neck measuring approximately 2.8 cm. No extraluminal gas or intraperitoneal free fluid is seen. No abdominal or pelvic lymphadenopathy is seen. Postsurgical changes from distal gastrectomy with Billroth II gastrojejunostomy formation. No suspicious lytic or blastic osseous lesion is seen. A dense sclerotic focus within the right iliac bone likely represents bone island. IMPRESSION: 1. Hyperenhancing lesion in the uncinate process of the pancreas, suspicious for neuroendocrine tumor, especially given reported lesion seen on outside hospital Dotatate scan. It would be helpful to correlate this lesion with those images if available. 2. Postsurgical changes from distal gastrectomy and Billroth II gastrojejunostomy. Electronically signed by: Raya Jennings M.D. Gato Abrams MD IMG CT PROCEDURES Final Result documented in this encounter Visit Diagnoses Diagnosis Inguinal hernia without obstruction or gangrene, recurrence not specified, unspecified laterality- Primary Inguinal hernia without obstruction or gangrene, recurrence not specified, unspecified laterality documented in this encounter Care Teams Surface Hydrologist Relationship Specialty Start Date End Date Barbra Goddard PA [address] [place] [address] [address] [place] [address] PCP - General Physician Air Conditioning Manager 02/13/20 03/24/20 Luann Lawrence NP Nurse Practitioner Nurse Practitioner 01/06/19 Adarsh Tuttle MD [address] [facility] [address] [place] [address] Consulting Physician Gastroenterology 02/22/19 Sebastien Martinez DO [address] [place] [address] Medical Oncologist/Process Operator Hematology and Oncology 02/22/19 Guru Winters DO [address] [place] [address] Consulting Physician Gastroenterology 02/22/19 Gato Abrams MD [address] [place] [address] Surgeon Surgical Oncology 09/07/19 documented as of this encounter
--- OUTSIDE RECORDS SUMMARY | 2024-10-04 03:05 | XMS_ITS | Encounter Summary ---
Author Organization [facility] Address [address] [facility] [address] [place] [address] Phone Care Team Providers Care Feeder Tender Name Role Phone Luann Lawrence ANUP Unavailable [phone] Adarsh Tuttle MD Unavailable [phone] Sebastien Martinez DO Unavailable [phone] Guru Winters DO Unavailable [phone] Gato Abrams MD Unavailable Barbra Goddard Primary Care Pr ovider Encounter Details Date Type Department Care Team (Late st Contact Info) Description 02/23/2020 8:30 AM CDT Telemedicine [facility] Surgery [address] [facility] [address] [facility] [address] [place] [id number] Gato Abrams MD [address] [facility] [id number] [place] [address] Malignant carcinoid tumor of stomach (CMS/HCC) (Primary [...] on file 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 Gato Abrams M.D., F.A.C.S. Chief, Section of Surgical Oncology mainframe developer [facility] - voice - fax USPS Mailing Address: Overnight Mailing Address: [address] [place] [address] [address] [facility], [address] [place], [place] [address] [place], [place] [address] FOLLOW-UP TELEMEDICINE VISIT DATE OF VISIT: 02/23/20 REASON FOR VISIT: Ms. Gibson presents today for a telemedicine visit after a laparoscopic distal gastrectomy with Billroth II gastrojejunostomy 2on 08/23/2019 for treatment of atrophic gastritis, well-differentiated gastric carcinoid tumors, hyper-gastrin state.. Final pathology of the surgical specimen demonstrated two well-differentiated neuroendocrine tumors (both less than 1 mm). HISTORY OF PRESENT ILLNESS: Since surgery, Ms. Gibson has been doing well with no specific complaints. She reports no wound erythema, induration, or drainage. No fevers or chills. She has been having normal bowel movements and urination. Her's appetite is normal and she is tolerating a regular diet.Her energy level is good and she is tolerating and performing all of her daily activities. She has noted a bulge around her incision in the mid-abdomen consistent with an incisional hernia. This is not painful and does not interfere with her daily activities. PHYSICAL EXAMINATION: Deferred secondary to telemedicine visit. Using real-time audio/video capabilities, I was able to see her abdominal incisions, which are wellhealed. She does have an apparent, easily reducible incisional hernia in the mid-abdomen. ASSESSMENT: 54 y.o. female who is doing well after distal gastrectomy for atrophic gastritis and gastric carcinoids with no evidence of recurrent or metastatic disease. PLAN: I will plan to see Ms. Gibson back in approximately 6 months for continued follow-up with a repeat CT scan of the abdomen and pelvis with pancreas protocol to monitor her small pancreatic lesionthat may be a small neuroendocrine tumor, but as this is sub cm, and asymptomatic, I would recommend close follow-up. With respect to her incisional hernia, it is totally asymptomatic, but I will refer her to Dr. Marina Rosales in an our hernia specialty group to discuss the indications, risks, and benefits to repair. I will see Ms. Gibson back in 6 months for continued follow-up. I will coordinate further imaging and endoscopic surveillance and follow-up studies with Dr. Martinez. I answered all of Ms. Gibson's questions to her satisfaction. This was a telemedicine visit with Fabiola Gibson alone which took place via a real-time video connection ([employer]rol[employer]/similar). During the visit, I was located at [facility] and the patient was located at home. The session started at 8:22am and ended at 8:35am. I spent an additional 14 minutes reviewing Ms. Gibson's medical records (including her recent imaging, clinic and referring physician notes, pathology, and blood work) and preparing my note and documentation for this consultation. The patient has been informed that the visit may not be secure and acknowledged the information. I have explained the option of participating in a telephone or video visit during the COVID- public health emergency to the patient. After being given an opportunity to ask questions about and discuss this type of visit, the patient verbally consented to proceeding with the telephone/video visit.The patient understands that this service replaces an office visit and they may be billed and/or responsible for any applicable copayments. Gato Abrams M.D., F.A.C.S. Chief, Section of Surgical Oncology mainframe developer CC: Patient Care Team: NBA Ward as PCP - General (Physician Drilling Fluids Specialist) Luann Lawrence NP as Nurse Practitioner (Nurse Practitioner) Adarsh Tuttle MD as Consulting Physician (Gastroenterology) Sebastien Martinez DO as Medical Oncologist/Oncology Technician (Hematology and Oncology) Guru Winters DO as Consulting Physician (Gastroenterology) Gato Abrams MD as Surgeon (Surgical Oncology) Staff Training And Development Manager completed by [employer]. Staff Training And Development Manager variances may occur. documented in this encounter Plan of Treatment Not on file documented as of this encounter Visit Diagnoses Diagnosis Malignant carcinoid tumor of stomach (HCC)- Primary Malignant carcinoid tumor of the stomach documented in this encounter Care Teams Feeder Tender Relationship Specialty Start Date End Date Barbra Goddard PA [address] [place] [address] PCP - General Physician Drilling Fluids Specialist 02/13/20 03/24/20 Luann Lawrence NP Nurse Practitioner Nurse Practitioner 01/06/19 Adarsh Tuttle MD [address] [facility] [address] [place] [address] Consulting Physician Gastroenterology 02/22/19 Sebastien Martinez DO [address] [place] [address] Medical Oncologist/Oncology Technician Hematology and Oncology 02/22/19 Guru Winters DO [address] [place] [address] Consulting Physician Gastroenterology 02/22/19 Gato Abrams MD [address] [place] [address] Surgeon Surgical Oncology 09/07/19 documented as of this encounter
--- OUTSIDE RECORDS SUMMARY | 2024-10-04 03:05 | XMS_ITS | Encounter Summary ---
Author Organization [facility] Address [address] [place] [address] Care Team Providers Care Supervisor Stage Carpentry Name Role Phone Luann Lawrence NP Unavailable [phone] Adarsh Tuttle MD Unavailable [phone] Sebastien Martinez DO Unavailable [phone] Guru Winters DO Unavailable [phone] Gato Abrams MD Unavailable [phone] Elizabeth Borrego Primary Care Provider [phone] Encounter Details Date Type Department Care Team (Late st Contact Info) Description 04/25/2020 Orders Only [facility] [address] [place] [address] Agustin Brown MD [address] [place], [place] [id number] Pre-op testing (Primary Dx) Social History Tobacco [...] on file Legal Sex Female 2:22 AM ARNP Gender Identity Female 06/07/2020 8:39 AM CDT Sexual Orientation Not on file 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 Order placed. Order and label printed for Location: [facility] documented in this encounter Miscellaneous Notes * Addendum Note - Juan Diego Zuniga CLT - 04/25/2020 12:30 PM CDTAddended by: JUAN DIEGO ZUNIGA on: 04/26/2020 07:54 PM Modules accepted: Orders documented in this encounter Plan of Treatment Not on file documented as of this encounter Results * COVID-19 Coronavirus RNA Nasopharyngeal (04/26/2020 3:03 PM CDT) COVID-19 RNA Not Detected [facility] Comment: Interpretive Data Testing performed at [facility] Molecular Infectious Disease Laboratory. The [...] CDT 04/26/2020 11:58 PM CDT Narrative [facility] - 04/27/2020 11:34 AM CDT Is the patient experiencing any symptoms consistent with COVID (eg. Fever, cough, shortness of breath)?->No What is the reason for testing?->Screening prior to scheduled (>12 hr) surgery or procedure us Agustin Brown MD LAB MICROBIOLOGY - GENERAL ORDERABLES Final Result [facility] [address] [facility] Department [place] [address] documented in this encounter Visit Diagnoses Diagnosis Pre-op testing- Primary Unspecified pre-operative examination Pre-op testing Unspecified pre-operative examination documented in this encounter Additional Health Concerns Infection Onset Date Last Indicated Resolved Time COVID: Suspected 04/25/2020 04/25/2020 04/28/2020 11:35 AM CDT documented as of this encounter Care Teams Supervisor Stage Carpentry Relationship Specialty Start Date End Date Elizabeth Borrego PA [address] [place] [address] PCP - General Internal Medicine 03/25/20 09/27/23 Luann Lawrence, ANUP Nurse Practitioner Nurse Practitioner 01/06/19 Adarsh Tuttle MD [address] [facility] [address] [place] [address] Consulting Physician Gastroenterology 02/22/19 Sebastien Martinez DO [address] [place] [address] [address] [place] [address] Medical Oncologist/Manager Of Recruiting Hematology and Oncology 02/22/19 Guru Winters DO [address] [place] [address] Consulting Physician Gastroenterology 02/22/19 Gato Abrams MD [address] [place] [address] Surgeon Surgical Oncology 09/07/19 documented as of this encounter
--- OUTSIDE RECORDS SUMMARY | 2024-10-04 03:05 | XMS_ITS | Encounter Summary ---
Author Organization [facility] Address [address] [facility] [address] [place] [address] Care Team Providers Care Straightening Press Operator Helper Name Role Phone Melinda Luann Burgess NP Unavailable Adarsh Tuttle MD Unavailable Sebastien Martinez DO Unavailable [phone] Guru Winters DO Unavailable [phone] Gato Abrams MD Unavailable [phone] Barbra Goddard Primary Care Pr ovider Encounter Details Date Type Department Care Team (Late st Contact Info) Description 02/21/2020 Orders Only [facility] Cardiology [address] [facility] [address] [place] [address] Rowdy Marroquin MD [address] [facility] [address] [place], [place] [id number] Social History Tobacco Use Types Packs/Day Years Used Date Smoking Tobacco: Former Cigarettes 1 2 1 997 - 1998 Smokeless Tobacco: Never Alcohol Use Standard Drinks/Week Comments Yes 2 (1 standard drink = 0.6 oz pur e alcohol) Comments No Sex and Gender Information Value Date Recorded Sex Assigned at Not on file 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 Gender Identity Female 06/07/2020 8:39 AM CDT Sexual Orientation Not on file 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 mikie e documented as of this encounter Plan of Treatment Not on file documented as of this encounter Procedures Procedure Name Priority Date/Time Associated Diagnosis Comments CARDIOLOGY DOCUMENT SCAN Routine 02/21/2020 documented in this encounter Results * SCAN - CARDIOLOGY (02/21/2020) Anatomical Region Laterality Modality Other Rowdy Marroquin MD [facility] CARDIAC SERVICES PROC EDURES Final Result documented in this encounter Visit Diagnoses Not on filedocumented in this encounter Care Teams Straightening Press Operator Helper Relationship Specialty Start Date End Date Barbra Goddard PA [address] [id number] PCP - General Physician Certified Corporate Travel Executive 02/13/20 03/24/20 Luann Lawrence NP Nurse Practitioner Nurse Practitioner 01/06/19 Adarsh Tuttle MD [address] [facility] [address] [place] [address] Consulting Physician Gastroenterology 02/22/19 Sebastien Martinez DO [facility] [address] Medical Oncologist/Injury Prevention Coordinator Hematology and Oncology 02/22/19 Guru Winters DO [facility] [address] Consulting Physician Gastroenterology 02/22/19 Gato Abrams MD [address] [place] [id number] Surgeon Surgical Oncology 09/07/19 documented as of this encounter
--- OUTSIDE RECORDS SUMMARY | 2024-10-04 03:05 | XMS_ITS | Encounter Summary ---
Author Organization [facility] Address [address] [place] [address] Phone Care Team Providers Care Liquor Store Manager Name Role Phone Luann Lawrence ANUP Unavailable Barbra Goddard Primary Care Pr ovider Adarsh Tuttle MD Unavailable Sebastien Martinez DO Unavailable [phone] Guru Winters DO Unavailable [phone] Gato Abrams MD Unavailable Encounter Details Date Type Department Care Team (Late st Contact Info) Description 09/19/2019 Orders Only [facility] Oncology [address] [facility] [place] [address] [place] [id number] Sebastien Martinez, DO [address] [facility] [address] [place] [address] Pernicious anemia (Primary Dx) Social History Tobacco Use Types Packs/Day Years Used Date Smoking Tobacco: Former Cigarettes 1 2 1 997 - 1998 Smokeless Tobacco: Never Alcohol Use Standard Drinks/Week Comments Yes 2 (1 standard drink = 0.6 oz pur e alcohol) Comments No Sex and Gender Information Value Date Recorded Sex Assigned at Not on file Legal Sex Female 2:22 AM SURGERY CONSULTANT Gender Identity Female 06/07/2020 8:39 AM CDT Sexual Orientation Not on file 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 Not on mikie e documented as of this encounter Plan of Treatment Not on file documented as of this encounter Visit Diagnoses Diagnosis Pernicious anemia- Primary documented in this encounter Orders Appointment Requests Count Last Ordered Date Fi rst Ordered Date INFUSION APPT REQUEST 120 MIN 2 09/27/2019 09/20/2019 documented in this encounter Care Teams Liquor Store Manager Relationship Specialty Start Date End Date Barbra Goddard PA PCP - General Physician Electric Power Line Repairer 01/22/19 12/05/19 Luann Lawrence NP Nurse Practitioner Nurse Practitioner 01/06/19 Adarsh Tuttle MD [address] [facility] [address] [place] [address] Consulting Physician Gastroenterology 02/22/19 Sebastien Martinez DO [address] [place] [id number] Medical Oncologist/Associate Editor Hematology and Oncology 02/22/19 Guru Winters DO [address] [place] [address] Consulting Physician Gastroenterology 02/22/19 Gato Abrams MD [address] [place] [address] Surgeon Surgical Oncology 09/07/19 documented as of this encounter
--- OUTSIDE RECORDS SUMMARY | 2024-10-04 03:05 | XMS_ITS | Encounter Summary ---
Author Organization [facility] Address [address] [facility] [address] [place] [address] Care Team Providers Care Blood Bank Assistant Name Role Phone Melinda Luann Burgess NP Unavailable [phone] Adarsh Tuttle MD Unavailable [phone] Sebastien Martinez DO Unavailable [phone] Guru Winters DO Unavailable [phone] Gato Abrams MD Unavailable [phone] Elizabeth Borrego Primary Care Provider [phone] Marina Rosales MD Unavailable Encounter Details Date Type Department Care Team (Late st Contact Info) Description 04/18/2020 Orders Only [facility] Health Information Management [address] [place] [address] Scanning, Provider Social History Tobacco [...] on file Legal Sex Female 2:22 AM 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 Gender Identity Female 06/07/2020 8:39 AM CDT Sexual Orientation Not on file 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 Not on mikie e documented as of this encounter Plan of Treatment Not on file documented as of this encounter Procedures Procedure Name Priority Date/Time Associated Diagnosis Comments GI - RESULT 04/18/2020 documented in this encounter Results * GI - RESULT (04/18/2020) Anatomical Region Laterality Modality Other us Provider Scanning Final Result documented in this encounter Visit Diagnoses Not on filedocumented in this encounter Additional Health Concerns Infection Onset Date Last Indicated Resolved Time COVID: Suspected 04/25/2020 04/25/2020 04/28/2020 11:35 AM CDT Respiratory Infection (LUIS E), contact + droplet Comment:Automatically added due to negative COVID-19 result. 04/28/2020 04/28/2020 04/29/2020 1:3 7 PM CDT COVID: Suspected 08/07/2020 08/07/2020 08/08/2020 4:47 PM CDT COVID19 08/07/2020 08/07/2020 08/21/2020 3:06 AM LOW 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 COVID: Recovered Comment:Added based on recent COVID infection. 08/21/2020 08/23/2020 12/19/2020 3:[address] documented as of this encounter Care Teams Blood Bank Assistant Relationship Specialty Start Date End Date Elizabeth Borrego PA [address] [place] [address] PCP - General Internal Medicine 03/25/20 09/27/23 Luann Lawrence NP Nurse Practitioner Nurse Practitioner 01/06/19 Adarsh Tuttle MD [address] [place] [address] Consulting Physician Gastroenterology 02/22/19 Sebastien Martinez DO [address] [place] [address] Medical Oncologist/Ware Dresser Hematology and Oncology 02/22/19 Guru Winters DO [address] [place] [address] Consulting Physician Gastroenterology 02/22/19 Gato Abrams MD [address] [place] [address] Surgeon Surgical Oncology 09/07/19 Marina Rosales MD [address] [facility] [address] [place], [place] [id number] Consulting Physician General Surgery 03/24/21 documented as of this encounter
--- OUTSIDE RECORDS SUMMARY | 2024-10-04 03:05 | XMS_ITS | Encounter Summary ---
Author Organization [facility] Address [address] [facility] [address] [place] [address] Care Team Providers Care Configuration Developer Name Role Phone Melinda Luann Burgess NP Unavailable [phone] Adarsh Tuttle MD Unavailable [phone] Sebastien Martinez DO Unavailable [phone] Guru Winters DO Unavailable [phone] Gato Abrams MD Unavailable [phone] Barbra Goddard Primary Care Pr ovider Elizabeth Borrego Primary Care Provider [phone] Encounter Details Date Type Department Care Team (Late st Contact Info) Description 03/06/2020 Orders Only [facility] Health Information Management [address] [place] [address] Scanning, Provider Social History Tobacco [...] Legal Sex Female 2:22 AM DIRECTOR OF GUIDANCE Gender Identity Female 06/07/2020 8:39 AM CDT Sexual Orientation Not on file 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 08/21/2020 08/23/2020 12/19/2020 3:[address] documented as of this encounter Care Teams Configuration Developer Relationship Specialty Start Date End Date Barbra Goddard PA [address] [facility] [address] [place] [address] PCP - General Physician Sql Report Developer 02/13/20 03/24/20 Elizabeth Borrego PA [address] [place] [address] PCP - General Internal Medicine 03/25/20 09/27/23 Luann Lawrence NP Nurse Practitioner Nurse Practitioner 01/06/19 Adarsh Tuttle MD [address] [address] [address] Consulting Physician Gastroenterology 02/22/19 Sebastien Martinez DO [address] [place] [address] Medical Oncologist/Marketing Associate Hematology and Oncology 02/22/19 Guru Winters DO [address] [place] [address] Consulting Physician Gastroenterology 02/22/19 Gato Abrams MD [address] [place] [address] Surgeon Surgical Oncology 09/07/19 documented as of this encounter
--- OUTSIDE RECORDS SUMMARY | 2024-10-04 03:05 | XMS_ITS | Encounter Summary ---
Author Organization [facility] Address [address] [place] [address] Phone Care Team Providers Care Dean Of Admissions Name Role Phone Luann Lawrence NP Unavailable [phone] Barbra Goddard Primary Care Pr ovider Adarsh Tuttle MD Unavailable [phone] Sebastien Martinez DO Unavailable [phone] Guru Winters DO Unavailable [phone] Gato Abrams MD Unavailable Reason for Visit * Reason Comments OP Infusion * Episode Based Medications (Routine) - Closed Specialty Diagnoses / Procedures Referred By Contac t Referred To Contact Diagnoses Iron deficiency anemia due to chronic blood loss Procedures [place] INJ FERRIC CARBOXYMALTOS 1MG Sebastien Matrinez, DO [address] [address] Phone: tel: fax: [facility] Oncology [address] [place] [address] Phone: tel: fax: Referral ID Status Reason Start Date Expiration Date Visits Re quested Visits Authorized [id number] Closed 09/19/2019 03/30/2021 1 10 Encounter Details Date Type Department Care Team (Late st Contact Info) Description 09/27/2019 1:30 PM HOMEBIRTH MIDWIFE Infusion [facility] Oncology [address] [place] [address] [place] [id number] Pernicious anemia (Primary Dx); Iron deficiency anemia due to [...] on file Legal Sex Female 2:22 AM HOMEBIRTH MIDWIFE Gender Identity Female 06/07/2020 8:39 AM CDT Sexual Orientation Not on file 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 Not on file Not on mikie e documented as of this encounter Last Filed Vital Signs Vital Sign Reading Time Taken Comments Blood Pressure 128/76 09/27/2019 1:44 PM HOMEBIRTH MIDWIFE Pulse 55 09/27/2019 1:44 PM HOMEBIRTH MIDWIFE Temperature - - Respiratory Rate - - Oxygen Saturation - - Inhaled Oxygen Concentration - - Weight - - Height - - Body Mass Index - - documented in this encounter Plan of Treatment Not on file documented as of this encounter Visit Diagnoses Diagnosis Pernicious anemia- Primary Iron deficiency anemia due to chronic blood loss Iron deficiency anemia secondary to blood loss (chronic) documented in this encounter Administered Medications Inactive Administered Medications - up to 3 most recent administrations Medication Order MAR Action Action Date Dose Rate Site ferric carboxymaltose (INJECTAFER) 750 mg in sodium chloride 0.9% 250 mL IVPB 750 mg, intravenous, at 795 mL/hr, Administer over 20 Minutes, Once, On Wed09/27/19 at 1415, For 1 doseIndications:Iron deficiency anemia due to chronic blood loss New Bag 09/27/2019 2:01 PM HOMEBIRTH MIDWIFE 750 mg 795 mL/hr documented in this encounter Orders Nursing Count Last Ordered Date First Orde red Date ONCBCN NO PREMEDS NEEDED 1 09/27/2019 Appointment Requests Count Last Ordered Date Fi rst Ordered Date INFUSION APPT REQUEST 120 MIN 1 09/27/2019 documented in this encounter Care Teams Dean Of Admissions Relationship Specialty Start Date End Date Barbra Goddard PA PCP - General Physician Rug Designer 01/22/19 12/05/19 Luann Lawrence, ANUP Nurse Practitioner Nurse Practitioner 01/06/19 Adarsh Tuttle MD [address] [facility] [address] [place] [address] Consulting Physician Gastroenterology 02/22/19 Sebastien Martinez DO [address] [place] [address] Medical Oncologist/Software Applications Architect Hematology and Oncology 02/22/19 Guru Winters DO [address] [place] [address] Consulting Physician Gastroenterology 02/22/19 Gato Abrams MD [address] [place] [address] Surgeon Surgical Oncology 09/07/19 documented as of this encounter
--- OUTSIDE RECORDS SUMMARY | 2024-10-04 03:05 | XMS_ITS | Encounter Summary ---
Author Organization [facility] Address [address] [facility] [address] [place] [address] Care Team Providers Care Spring Clipper Name Role Phone Luann Lawrence NP Unavailable Adarsh Tuttle MD Unavailable [phone] Sebastien Martinez DO Unavailable Guru Winters DO Unavailable [phone] Gato Abrams MD Unavailable [phone] Barbra Goddard Primary Care Pr ovider Encounter Details Date Type Department Care Team (Late st Contact Info) Description 02/15/2020 Telephone [facility] Cardiology [address] [facility] [address] [place] [address] Rowdy Marroquin MD [address] [facility] [address] [place] [address] Social History Tobacco Use Types Packs/Day Years Used Date Smoking Tobacco: Former Cigarettes 1 2 1 997 - 1998 Smokeless Tobacco: Never Alcohol Use Standard Drinks/Week Comments Yes 2 (1 standard drink = 0.6 oz pur e alcohol) Comments No Sex and Gender Information Value Date Recorded Sex Assigned at Not on file Legal Sex Female 2:22 AM 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 Faxed order to cardiology dept and gave pt phone number to contact them for scheduling. * Telephone Encounter - Theresa Pfeiffer - 02/15/2020 11:14 AM CDT Pt called to discuss getting her echo done at [facility] [facility]. documented in this encounter Plan of Treatment Not on file documented as of this encounter Visit Diagnoses Not on filedocumented in this encounter Care Teams Spring Clipper Relationship Specialty Start Date End Date Barbra Goddard PA [address] [place] [id number] PCP - General Physician Home Health Lvn 02/13/20 03/24/20 Luann Lawrence NP Nurse Practitioner Nurse Practitioner 01/06/19 Adarsh Tuttle MD [address] [facility] [address] [place] [address] Consulting Physician Gastroenterology 02/22/19 Sebastien Martinez DO [address] [place] [address] 352429 Medical Oncologist/Sling Operator Hematology and Oncology 02/22/19 Guru Winters DO [address] [place] [address] Consulting Physician Gastroenterology 02/22/19 Gato Abrams MD [address] [place] [address] Surgeon Surgical Oncology 09/07/19 documented as of this encounter
--- OUTSIDE RECORDS SUMMARY | 2024-10-04 03:05 | XMS_ITS | Encounter Summary ---
Author Organization [facility] Address [address] [place] [address] Phone Care Team Providers Care Inspector Final Assembly Mechanical Name Role Phone Luann Lawrence COCKTAIL WAITRESS Unavailable [phone] Adarsh Tuttle MD Unavailable [phone] Sebastien Martinez DO Unavailable [phone] Guru Winters DO Unavailable [phone] Gato Abrams MD Unavailable [phone] Elizabeth Borrego Primary Care Provider [phone] Encounter Details Date Type Department Care Team (Late st Contact Info) Description 04/04/2020 Orders Only [facility] Physicians [facility] Oncology [address] [facility] [address] [place] [address] Sebastien Martinez, DO [address] [facility] [address] [place] [address] Malignant carcinoid tumor of stomach [...] on file Legal Sex Female 2:22 AM MESSENGER COPY Gender Identity Female 06/07/2020 8:39 AM CDT [...] stomach documented in this encounter Care Teams Inspector Final Assembly Mechanical Relationship Specialty Start Date End Date Elizabeth Borrego PA [address] [facility] [address] [place] [address] PCP - General Internal Medicine 03/25/20 09/27/23 Luann Lawrence NP Nurse Practitioner Nurse Practitioner 01/06/19 Adarsh Tuttle MD [address] [facility] [address] [place] [address] Consulting Physician Gastroenterology 02/22/19 Sebastien Martinez DO [address] [place] [address] Medical Oncologist/Investigator Claims Hematology and Oncology 02/22/19 Guru Winters DO [address] [place] [address] Consulting Physician Gastroenterology 02/22/19 Gato Abrams MD [address] [place] [address] 906649 Surgeon Surgical Oncology 09/07/19 documented as of this encounter
--- OUTSIDE RECORDS SUMMARY | 2024-10-04 03:05 | XMS_ITS | Encounter Summary ---
Author Organization [facility] Address [address] [facility] [address] [place] [address] Care Team Providers Care Nail Machine Operator Name Role Phone Melinda Luann Burgess NP Unavailable [phone] Adarsh Tuttle MD Unavailable [phone] Sebastien Martinez DO Unavailable [phone] Guru Winters DO Unavailable [phone] Gato Abrams MD Unavailable [phone] Barbra Goddard Primary Care Pr ovider Encounter Details Date Type Department Care Team (Late st Contact Info) Description 02/14/2020 Orders Only [facility] Cardiology [address] [facility] [address] [place] [address] Provider, MD Pedro [facility] [place] [address] Social History Tobacco Use Types Packs/Day Years Used Date Smoking Tobacco: Former Cigarettes 1 2 1 7 - 1998 Smokeless Tobacco: Never Alcohol Use Standard Drinks/Week Comments Yes 2 (1 standard drink = 0.6 oz pur e alcohol) Comments No Sex and Gender Information Value Date Recorded Sex Assigned at Not on file Legal Sex Female 2:22 AM HELP DESK TECHNICIAN Gender Identity Female 06/07/2020 8:39 AM CDT Sexual Orientation Not on file 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 Not on mikie e documented as of this encounter Plan of Treatment Not on file documented as of this encounter Procedures Procedure Name Priority Date/Time Associated Diagnosis Comments LIPID PANEL Routine 12/09/2019 8:17 AM HELP DESK TECHNICIAN documented in this encounter Results * Lipid panel (12/09/2019 8:17 AM HELP DESK TECHNICIAN) SCRIBED Cholesterol, Total 152 0 - 200 EXTERNAL LAB SCRIBED HDL 66 40 - 100 EXTERNAL LAB SCRIBED LDL 70 0 - 100 EXTERNAL LAB SCRIBED Triglycerides 77 0 - 150 EXTERNAL LAB Blood specimen (specimen) us Historical Provider LAB BLOOD ORDERABLES Edit ed Result - Final EXTERNAL LAB documented in this encounter Visit Diagnoses Not on filedocumented in this encounter Care Teams Nail Machine Operator Relationship Specialty Start Date End Date Barbra Goddard PA [address] [place] [id number] PCP - General Physician Sinker Puller 02/13/20 03/24/20 Luann Lawrence NP Nurse Practitioner Nurse Practitioner 01/06/19 Adarsh Tuttle MD [address] [facility] [address] [place] [address] Consulting Physician Gastroenterology 02/22/19 Sebastien Martinez DO [address] [place] [address] Medical Oncologist/Method Consultant Hematology and Oncology 02/22/19 Guru Winters DO [address] [place] [address] Consulting Physician Gastroenterology 02/22/19 Gato Abrams MD [address] [place] [address] Surgeon Surgical Oncology 09/07/19 documented as of this encounter
--- OUTSIDE RECORDS SUMMARY | 2024-10-04 03:05 | XMS_ITS | Encounter Summary ---
Author Organization [facility] Address [address] [place] [address] Phone Care Team Providers Care Switchbox Assembler Name Role Phone Luann Lawrence ANUP Unavailable [phone] Adarsh Tuttle MD Unavailable [phone] Sebastien Martinez DO Unavailable [phone] Guru Winters DO Unavailable [phone] Gato Abrams MD Unavailable [phone] Elizabeth Borrego Primary Care Provider [phone] Reason for Visit * Reason Onset Date Comments carc 03/28/2020 Encounter Details Date Type Department Care Team (Late st Contact Info) Description 03/28/[address] 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 1. PET-CT scan with gallium 68 DOTATATE performed on March 26 showed the following: Marked focal avidity in the uncinate process of the pancreas corresponding to the knee hyperenhancing lesion seen on the CT scan last month. No other evidence of any distant hypermetabolic activity. 2. CT scan on February 21 showed 6 mm hyperenhancing lesion within the uncinate process of the pancreas. 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 After discussion with Dr. Abrams, the consensus is to proceed with conservative measures and close follow-up testing. 2. This is based on a small lesion in the pancreas which may or may not be metastatic. In addition,she just recently had subtotal gastrectomy surgery. 3. Therefore, I will start her on Sandostatin LAR or octreotide LAR 20 mg once a month beginning next week for treatment effect of this possible drop metastasis- 6 mm lesion in the uncinate process of the pancreas as well as her symptoms. 4. I did discuss all these issues with the patient by telephone today and she is in agreement with this approach. 5. I will probably repeat another CT scan of the abdomen with contrast sometime later this summer. Will continue with close monitoring. Sebastien Martinez D.O. Rubber Engraver documented in this encounter Plan of Treatment Not on file documented as of this encounter Visit Diagnoses Not on filedocumented in this encounter Care Teams Switchbox Assembler Relationship Specialty Start Date End Date Elizabeth Borrego PA [address] [place] [address] PCP - General Internal Medicine 03/25/20 09/27/23 Luann Lawrence NP Nurse Practitioner Nurse Practitioner 01/06/19 Adarsh Tuttle MD [address] [facility] [address] [place] [address] Consulting Physician Gastroenterology 02/22/19 Sebastien Martinez DO [address] [place] [address] Medical Oncologist/Housekeeper Hematology and Oncology 02/22/19 Guru Winters DO [address] [place] [address] Consulting Physician Gastroenterology 02/22/19 Gato Abrams MD [address] [place] [address] 572129 Surgeon Surgical Oncology 09/07/19 documented as of this encounter
--- OUTSIDE RECORDS SUMMARY | 2024-10-04 03:05 | XMS_ITS | Encounter Summary ---
Author Organization [facility] Address [address] [place] [address] Phone Care Team Providers Care Hot Dimpling Machine Operator Name Role Phone Luann Lawrence ANUP Unavailable [phone] Barbra Goddard Primary Care Pr ovider Adarsh Tuttle MD Unavailable Sebastien Martinez DO Unavailable Guru Winters DO Unavailable [phone] Gato Abrams MD Unavailable Encounter Details Date Type Department Care Team (Late st Contact Info) Description 09/19/2019 Telephone [facility] Oncology [address] [place] [address] Sebastien Martinez, DO [address] [id number] Social History Tobacco Use Types Packs/Day Years Used Date Smoking Tobacco: Former Cigarettes 1 2 1 7 - 1998 Smokeless Tobacco: Never Alcohol Use Standard Drinks/Week Comments Yes 2 (1 standard drink = 0.6 oz pur e alcohol) Comments No Sex and Gender Information Value Date Recorded Sex Assigned at Not on file Legal Sex Female 2:22 AM WAREHOUSE LOADER Gender Identity Female 06/07/2020 8:39 AM CDT Sexual Orientation Not on file 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 Dr. Martinez has two options she can choose from. Oral iron 325 mg tid plus vitamin C 500 mg daily or IV Injectafer x 2 doses. I did ask for patient to return call to office to discuss HOUSE LOADER documented in this encounter Plan of Treatment Not on file documented as of this encounter Visit Diagnoses Not on filedocumented in this encounter Care Teams Hot Dimpling Machine Operator Relationship Specialty Start Date End Date Barbra Goddard PA PCP - General Physician Knitting Machine Operator 01/22/19 12/05/19 Luann Lawrence NP Nurse Practitioner Nurse Practitioner 01/06/19 Adarsh Tuttle MD [address] [facility] [address] [place] [address] Consulting Physician Gastroenterology 02/22/19 Sebastien Martinez DO [address] [place] [address] Medical Oncologist/Statistical Analyst Hematology and Oncology 02/22/19 Guru Winters DO [address] [place] [address] Consulting Physician Gastroenterology 02/22/19 Gato Abrams MD [address] [address] Surgeon Surgical Oncology 09/07/19 documented as of this encounter
--- OUTSIDE RECORDS SUMMARY | 2024-10-04 03:05 | XMS_ITS | Encounter Summary ---
Author Organization [facility] Address [address] [place] [address] Phone Care Team Providers Care Digital Strategist Senior Manager Name Role Phone Luann Lawrence ANUP Unavailable [phone] Adarsh Tuttle MD Unavailable [phone] Sebastien Martinez DO Unavailable [phone] Guru Winters DO Unavailable [phone] Gato Abrams MD Unavailable [phone] Elizabeth Borrego Primary Care Provider [phone] Encounter Details Date Type Department Care Team (Late st Contact Info) Description 04/01/2020 Telephone [facility] Oncology [address] [place] [address] [address] [place] [address] Christy Cochran Social History Tobacco Use Types Packs/Day Years [...] on file Legal Sex Female 2:22 AM SPUN PASTE MACHINE OPERATOR Gender Identity Female 06/07/2020 8:39 AM CDT Sexual Orientation Not on file 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 She may be reached at to reschedule. documented in this encounter Plan of Treatment Not on file documented as of this encounter Visit Diagnoses Not on filedocumented in this encounter Care Teams Digital Strategist Senior Manager Relationship Specialty Start Date End Date Elizabeth Borrego PA [address] [place], [place] [phone] PCP - General Internal Medicine 03/25/20 09/27/23 Luann Lawrence, ANUP Nurse Practitioner Nurse Practitioner 01/06/19 Adarsh Tuttle MD [address] [place] [address] Consulting Physician Gastroenterology 02/22/19 Sebastien Martinez DO [address] [facility] 180 [place], [place] [address] Medical Oncologist/Claim Specialist Hematology and Oncology 02/22/19 Guru Winters DO [address] [facility] [address] [place], [place] [address] Consulting Physician Gastroenterology 02/22/19 Gato Abrams MD [address] [address] Surgeon Surgical Oncology 09/07/19 documented as of this encounter
--- OUTSIDE RECORDS SUMMARY | 2024-10-04 03:05 | XMS_ITS | Encounter Summary ---
Author Organization [facility] Address [address] [place] [address] Phone Care Team Providers Care Linux Kernel Engineer Name Role Phone Luann Lawrence NP Unavailable [phone] Barbra Goddard Primary Care Pr ovider Adarsh Tuttle MD Unavailable [phone] Sebastien Martinez DO Unavailable [phone] Guru Winters DO Unavailable [phone] Gato Abrams MD Unavailable [phone] Reason for Visit * Episode Based Medications (Routine) - Closed Specialty Diagnoses / Procedures Referred By Contjimmy t Referred To Contact Diagnoses Iron deficiency anemia due to chronic blood loss Procedures LA INJ FERRIC CARBOXYMALTOS 1MG Sebastien Martinez DO [address] [address] Phone: tel: fax: [facility] Oncology [address] [facility] [place] [address] Phone: tel: fax: Referral ID Status Reason Start Date Expiration Date Visits Re quested Visits Authorized [id number] Closed 09/19/2019 03/30/2021 1 10 Encounter Details Date Type Department Care Team (Late st Contact Info) Description 09/20/2019 1:30 PM PROFESSOR OF ENVIRONMENTAL SCIENCE Infusion [facility] Oncology [address] [facility] [place] [address] [place] [address] Pernicious anemia (Primary Dx); Iron deficiency anemia [...] Legal Sex Female 2:22 AM PROFESSOR OF ENVIRONMENTAL SCIENCE Gender Identity Female 06/07/2020 8:39 AM CDT Sexual Orientation Not on file 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 Not on file Not on mikie e documented as of this encounter Last Filed Vital Signs Vital Sign Reading Time Taken Comments Blood Pressure 123/64 09/20/2019 1:37 PM PROFESSOR OF ENVIRONMENTAL SCIENCE Pulse 58 09/20/2019 1:37 PM PROFESSOR OF ENVIRONMENTAL SCIENCE Temperature 36.7 ??C (98.1 ??F) 09/20/2019 1:37 PM CS T Respiratory Rate - - Oxygen Saturation - - Inhaled Oxygen Concentration - - Weight 70.5 kg (155 lb 6.4 oz) 09/20/2019 1:37 P M PROFESSOR OF ENVIRONMENTAL SCIENCE Height - - Body Mass Index 26.67 09/18/2019 1:51 PM PROFESSOR OF ENVIRONMENTAL SCIENCE documented in this encounter Plan of Treatment [...] mL/hr, Administer over 20 Minutes, Once, On Wed09/20/19 at 1415, For 1 doseIndications:Iron deficiency anemia due to chronic blood loss New Bag 09/20/2019 2:09 PM PROFESSOR OF ENVIRONMENTAL SCIENCE 750 mg 795 mL/hr sodium chloride 0.9% flush 10 mL 10 mL, intravenous, As needed, line care, Starting on Wed09/20/19 at 1338, Flush pre and post IV catheter use.Indications:Iron deficiency anemia due to chronic blood loss Given 09/20/2019 2:09 PM PROFESSOR OF ENVIRONMENTAL SCIENCE 10 mL documented in this encounter Orders Nursing Count Last Ordered Date First Orde red Date ONCBCN NO PREMEDS NEEDED 1 09/20/2019 Appointment Requests Count Last Ordered Date Fi rst Ordered Date INFUSION APPT REQUEST 120 MIN 1 09/20/2019 documented in this encounter Care Teams Linux Kernel Engineer Relationship Specialty Start Date End Date GilbertoBarbra thurston [employer] [place] PCP - General Physician Junior Project Manager 01/22/19 12/05/19 Luann Lawrence, ANUP Nurse Practitioner Nurse Practitioner 01/06/19 Adarsh Tuttle MD [address] [facility] [address] [place] [address] Consulting Physician Gastroenterology 02/22/19 Sebastien Martinez DO [facility] [address] Medical Oncologist/Multicultural Manager Hematology and Oncology 02/22/19 Guru Winters DO [address] [place] [address] Consulting Physician Gastroenterology 02/22/19 Gato Abrams MD [facility] [address] Surgeon Surgical Oncology 09/07/19 documented as of this encounter
--- OUTSIDE RECORDS SUMMARY | 2024-10-04 03:05 | XMS_ITS | Encounter Summary ---
Author Organization [facility] Address [address] [place] [address] Phone Care Team Providers Care Certified Surgical Assistant Name Role Phone Luann Lawrence ANUP Unavailable [phone] Adarsh Tuttle MD Unavailable Sebastien Martinez DO Unavailable [phone] Guru Winters DO Unavailable [phone] Gato Abrams MD Unavailable [phone] Barbra Goddard Primary Care Pr ovider Encounter Details Date Type Department Care Team (Late st Contact Info) Description 02/19/2020 Telephone [facility] Surgery [address] [facility] Floor 1 [place] [address] Joy Corey RN Social History Tobacco Use Types Packs/Day Years Used Date Smoking Tobacco: Former Cigarettes 1 2 1 997 - 1998 Smokeless Tobacco: Never Alcohol Use Standard Drinks/Week Comments Yes 2 (1 standard drink = 0.6 oz pur e alcohol) Comments No Sex and Gender Information Value Date Recorded Sex Assigned at Not on file Legal Sex Female 2:22 AM ZOOKEEPER Gender Identity Female 06/07/2020 8:39 AM CDT Sexual Orientation Not on file 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 She is having normal bowel movements. Denies pain, fever, chills, night sweats, nausea, and vomiting. Due to COVID-19 we are minimizing patient contact, and only seeing emergency cases in clinic. Notified Dr. Abrams & obtaining CT with Telemed visit to follow. Instructed pt to call if she develops issues/concerns. She verbalized understanding. Joy Bennett, BSN, RN Division of Hepatobiliary Surgery Nurse Coordinator ----- Message from DARIO Ledezma sent at 02/19/2020 11:04 AM CDT ----- Regarding: call pt Hi Rosy, Pt calling in regards to a lump that she has above her belly button. She had a lap distal gastrectomy in 08/2019. Maday Garcia [phone] documented in this encounter Plan of Treatment Not on file documented as of this encounter Visit Diagnoses Not on filedocumented in this encounter Care Teams Certified Surgical Assistant Relationship Specialty Start Date End Date Barbra Goddard PA [address] [place] [address] [address] [place] [address] PCP - General Physician Controller Mechanic 02/13/20 03/24/20 Luann Lawrence NP Nurse Practitioner Nurse Practitioner 01/06/19 Adarsh Tuttle MD [address] [facility] [address] [place] [address] Consulting Physician Gastroenterology 02/22/19 [place] [address] [place] [address] Medical Oncologist/Tin Tie Machine Operator Automatic Hematology and Oncology 02/22/19 Guru Winters DO [address] [place] [address] Consulting Physician Gastroenterology 02/22/19 Gato Abrams MD [address] [place] [address] Surgeon Surgical Oncology 09/07/19 documented as of this encounter
--- OUTSIDE RECORDS SUMMARY | 2024-10-04 03:05 | XMS_ITS | Encounter Summary ---
Author Organization [facility] Address [address] [place] [address] Care Team Providers Care Account Advisor Name Role Phone Luann Lawrence NP Unavailable [phone] Adarsh Tuttle MD Unavailable [phone] Sebastien Martinez DO Unavailable [phone] Guru Winters DO Unavailable [phone] Gato Abrams MD Unavailable [phone] Barbra Goddard Primary Care Pr ovider Elizabeth Borrego Primary Care Provider [phone] Marina Rosales MD Unavailable [phone] Elizabeth Borrego Primary Care Provider [phone] Encounter Details Date Type Department Care Team (Late st Contact Info) Description 03/21/2020 Telephone [facility] [address] [place] [address] Lena Arreguin, RT Social History Tobacco Use Types Packs/Day Years [...] on file Legal Sex Female 2:22 AM HEDIS ABSTRACTOR Gender Identity Female 06/07/2020 8:39 AM CDT [...] CDT COVID19 08/07/2020 08/07/2020 08/21/2020 3:06 AM HEDIS ABSTRACTOR COVID: Recovered Comment:Added based on recent COVID infection. 08/21/2020 08/23/2020 12/19/2020 3:[address] documented as of this encounter Care Teams Account Advisor Relationship Specialty Start Date End Date Barbra Goddard PA [address] [place] [address] PCP - General Physician Circuit Breaker Assembler 02/13/20 03/24/20 Elizabeth Borrego PA [address] [place] [address] PCP - General Internal Medicine 03/25/20 09/27/23 Elizabeth Borrego PA [address] [place] [address] PCP - General Internal Medicine 09/28/23 Luann Lawrence NP Nurse Practitioner Nurse Practitioner 01/06/19 Adarsh Tuttle MD [address] [facility] [address] [place] [address] Consulting Physician Gastroenterology 02/22/19 Sebastien Martinez DO [facility]8 [facility] 180 [place] [address] Medical Oncologist/Paunch Trimmer Hematology and Oncology 02/22/19 Guur Winters DO [facility] [address] Consulting Physician Gastroenterology 02/22/19 Gato Abrams MD [address] [place] [address] Surgeon Surgical Oncology 09/07/19 Marina Rosales MD [address] [facility] [address] [place], [place] [address] Consulting Physician General Surgery 03/24/21 documented as of this encounter
--- OUTSIDE RECORDS SUMMARY | 2024-10-04 03:05 | XMS_ITS | Encounter Summary ---
Author Organization [facility] Address [address] [place] [address] Phone Care Team Providers Care Superintendent Meters Name Role Phone Luann Lawrence NP Unavailable [phone] Adarsh Tuttle MD Unavailable [phone] Sebastien Martinez DO Unavailable [phone] Guru Winters DO Unavailable [phone] Gato Abrams MD Unavailable [phone] Elizabeth Borrego Primary Care Provider [phone] Reason for Visit * Episode Based Medications (Routine) - Closed Specialty Diagnoses / Procedures Referred By Clemencia mendez Referred To Contact Oncology Diagnoses Malignant carcinoid tumor of stomach (HCC) Procedures MT OCTREOTIDE INJECTION, DEPOT Sebastien Martinez, DO [facility] [address] Phone: tel: fax: [facility] Physicians [facility] Oncology [address] [address] Phone: tel: fax: Referral ID Status Reason Start Date Expiration Date Visits Re quested Visits Authorized [id number] Closed 2022 02/19/2023 1 50 Encounter Details Date Type Department Care Team (Late st Contact Info) Description 04/05/2020 2:00 PM CDT Infusion 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 For IM intragluteal administration only- alternate gluteal sites. Shamir.Indications:Malignan t carcinoid tumor of stomach (HCC) Given 04/05/2020 2:06 PM CDT 20 mg Left Ventrogluteal documented in this encounter Orders Appointment Requests Count Last Ordered Date Fi rst Ordered Date ONCBCN INJECTION APPOINTMENT REQUEST 1 03/18 documented in this encounter Care Teams Superintendent Meters Relationship Specialty Start Date End Date Elizabeth Borrego PA [address] [facility] 500 [place] [address] PCP - General Internal Medicine 03/25/20 09/27/23 Luann Lawrence NP Nurse Practitioner Nurse Practitioner 01/06/19 Adarsh Tuttle MD [address] [facility] [address] [place] [address] Consulting Physician Gastroenterology 02/22/19 Sebastien Martinez DO [address] [place] [address] Medical Oncologist/Information Security Analyst Hematology and Oncology 02/22/19 Guru Winters DO [address] [place] [id number] Consulting Physician Gastroenterology 02/22/19 Gato Abrams MD [address] [place] [id number] Surgeon Surgical Oncology 09/07/19 documented as of this encounter
--- OUTSIDE RECORDS SUMMARY | 2024-10-04 03:05 | XMS_ITS | Encounter Summary ---
Author Organization [facility] Address [address] [place] [address] Phone Care Team Providers Care Quality Assurance Manager Name Role Phone MelindaLuann oh Aditya ANUP Unavailable [phone] Adarsh Tuttle MD Unavailable [phone] Sebastien Martinez DO Unavailable [phone] Guru Winters DO Unavailable Gato Abrams MD Unavailable [phone] Barbra Goddard Primary Care Pr ovider Reason for Referral * Diagnostic Imaging (Routine) - Closed Specialty Diagnoses / Procedures Referred By Clemencia t Referred To Contact Radiology Diagnoses Malignant carcinoid tumor of stomach (HCC) Procedures CT Abdomen Pelvis W WO Contrast CT Abdomen Pelvis W Contrast Gato Abrams MD [facility] [address] Phone: tel: fax: [address] [address] Referral ID Status Reason Start Date Expiration Date Visits Re quested Visits Authorized [id number] Closed 02/23/2020 09/03/2021 1 1 Encounter Details Date Type Department Care Team (Late st Contact Info) Description 02/23/2020 Orders Only [facility] Surgery [address] [place] [address] Gato Abrams MD [address] [phone] [place] [address] Malignant carcinoid tumor of stomach (CMS/HCC) (Primary [...] on file Legal Sex Female 2:22 AM TELEPHONE ADVICE NURSE Gender Identity Female 06/07/2020 8:39 AM CDT Sexual Orientation Not on file 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 2. Stable postsurgical changes of distal gastrectomy and Billroth II gastrojejunostomy, without CT evidence of recurrent or metastatic disease within the abdomen. Electronically signed by: Sal Coy M.D. Narrative 08/26/2020 2:19 PM TELEPHONE ADVICE NURSE EXAMINATION: CT ABDOMEN PELVIS W WO CONTRAST [...] by: Sal Coy M.D. Gato Abrams MD [facility] PROCEDURES Final Result documented in this encounter Visit Diagnoses Diagnosis Malignant carcinoid tumor of stomach (HCC)- Primary Malignant carcinoid tumor of the stomach Malignant carcinoid tumor of stomach (HCC) Malignant carcinoid tumor of the stomach documented in this encounter Care Teams Quality Assurance Manager Relationship Specialty Start Date End Date Barbra Goddard PA [address] [place] [address] PCP - General Physician Electric System Operator 02/13/20 03/24/20 Luann Lawrence NP Nurse Practitioner Nurse Practitioner 01/06/19 Adarsh Tuttle MD [address] [facility] [address] [place] [address] Consulting Physician Gastroenterology 02/22/19 Sebastien Martinez DO [address] [place] [address] Medical Oncologist/Day Guard Hematology and Oncology 02/22/19 Guru Winters DO [address] [place] [address] Consulting Physician Gastroenterology 02/22/19 Gato Abrams MD [address] [place] [address] Surgeon Surgical Oncology 09/07/19 documented as of this encounter
--- OUTSIDE RECORDS SUMMARY | 2024-10-04 03:05 | XMS_ITS | Encounter Summary ---
Author Organization [facility] Address [address] [facility] [address] [place] [address] Care Team Providers Care Beverage Distiller Name Role Phone Luann Lawrence NP Unavailable [phone] Adarsh Tuttle MD Unavailable [phone] Sebastien Martinez DO Unavailable Guru Winters DO Unavailable [phone] Gato Abrams MD Unavailable Elizabeth Borrego Primary Care Provider [phone] Encounter Details Date Type Department Care Team (Late st Contact Info) Description 03/27/2020 Telephone [facility] Family Medicine [address] [place] [address] Elizabeth Borrego PA [address] [facility] [address] [address] [place] [address] Social History Tobacco Use Types [...] on file Legal Sex Female 2:22 AM NEURODIAGNOSTIC TECHNOLOGIST Gender Identity Female 06/07/2020 8:39 AM CDT Sexual Orientation Not on file 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 Not on file Not on mikie e documented as of this encounter Miscellaneous Notes * Telephone Encounter - Sara Hussein MA - 04/11/2020 5:09 PM CDT Opened by mistake documented in this encounter Plan of Treatment Not on file documented as of this encounter Visit Diagnoses Not on filedocumented in this encounter Care Teams Beverage Distiller Relationship Specialty Start Date End Date Elizabeth Borrego PA [address] [facility] [address] [place], [place] [id number] PCP - General Internal Medicine 03/25/20 09/27/23 Luann Lawrence, ANUP Nurse Practitioner Nurse Practitioner 01/06/19 Adarsh Tuttle MD [address] [facility] [address] [place] [address] Consulting Physician Gastroenterology 02/22/19 Sebastien Martinez DO [address] [facility] 180 [place], [place] [address] Medical Oncologist/Continuous Pickling Line Pickler Hematology and Oncology 02/22/19 Guru Winters DO [address] [facility] 180 [place], [place] [address] Consulting Physician Gastroenterology 02/22/19 Gato Abrams MD [address] [facility] 180 [place], [place] [address] Surgeon Surgical Oncology 09/07/19 documented as of this encounter
--- OUTSIDE RECORDS SUMMARY | 2024-10-04 03:05 | XMS_ITS | Encounter Summary ---
Author Organization [facility] Address [address] [place] [address] Phone Care Team Providers Care Geriatric Psychiatrist Name Role Phone Luann Lawrence ANUP Unavailable [phone] Adarsh Tuttle MD Unavailable [phone] Sebastien Martinez DO Unavailable Guru Winters DO Unavailable [phone] Gato Abrams MD Unavailable [phone] Elizabeth Borrego Primary Care Provider [phone] Encounter Details Date Type Department Care Team (Late st Contact Info) Description 04/22/2020 Telephone [facility] Oncology [address] [place] [address] [address] [place] [address] Tracy Brock RN Social History [...] on file Legal Sex Female 2:22 AM BUS GIRL Gender Identity Female 06/07/2020 8:39 AM CDT Sexual Orientation Not on file 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 Martinez's instructions for loose stools. Patient v/u and will have FMLA papers sent to our office. * Telephone Encounter - Tracy Brock RN - 04/22/2020 12:09 PM CDT Patient called with complaint of loose stools since she received Sandostatin injection. Per patientthis is not everyday and stools are not watery. Denies fever, abdominal pain, bloating or other concerns at this time. Happens frequently at night, patient was up twice last night. This is happening about every other day. Also is asking if she can have FMLA papers filled out for when this happens. Dr. Martinez notified. Patient can have 3-4 FMLA days per month, needs to take Imodium 1-2 tablets daily and call in 1 week with an update. Per Dr. Martinez this should resolve with next injection. Left message for patient to call office to advise of instructions. documented in this encounter Plan of Treatment Not on file documented as of this encounter Visit Diagnoses Not on filedocumented in this encounter Care Teams Geriatric Psychiatrist Relationship Specialty Start Date End Date Elizabeth Borrego PA [address] [facility] [address] [place] [address] PCP - General Internal Medicine 03/25/20 09/27/23 Luann Lawrence NP Nurse Practitioner Nurse Practitioner 01/06/19 Adarsh Tuttle MD [address] [facility] [address] [place] [address] Consulting Physician Gastroenterology 02/22/19 Sebastien Martinez DO [address] [place] [address] Medical Oncologist/Buffet Attendant Hematology and Oncology 02/22/19 Guru Winters DO [address] [place] [address] Consulting Physician Gastroenterology 02/22/19 Gato Abrams MD [address] [place] [address] Surgeon Surgical Oncology 09/07/19 documented as of this encounter
--- OUTSIDE RECORDS SUMMARY | 2024-10-04 03:05 | XMS_ITS | Encounter Summary ---
Author Organization [facility] Address [address] [facility] [facility] [address] [place] [address] Care Team Providers Care Molding Room Supervisor Name Role Phone Melinda Luann Burgess NP Unavailable [phone] Adarsh Tuttle MD Unavailable [phone] Seabstien Martinez DO Unavailable [phone] Guru Winters DO Unavailable [phone] Gato Abrams MD Unavailable Barbra Goddard Primary Care Pr ovider Reason for Visit * Reason Comments New Patient deanna Encounter Details Date Type Department Care Team (Late st Contact Info) Description 02/13/2020 2:45 PM CDT Office Visit [facility] Cardiology [address] [facility] [address] [place] [address] Rowdy Marroquin MD [address] [facility] [address] [place] [address] Dyslipidemia (Primary Dx); HTN (hypertension), benign; LBBB (left bundle branch block); Palpitations; Premature atrial contractions Social History Tobacco Use Types Packs/Day Years Used Date Smoking Tobacco: Former Cigarettes 1 2 1 997 - 1998 Smokeless Tobacco: Never Alcohol Use Standard Drinks/Week Comments Yes 2 (1 standard drink = 0.6 oz pur e alcohol) Comments No Sex and Gender Information Value Date Recorded Sex Assigned at Not on file 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 Gender Identity Female 06/07/2020 8:39 AM CDT Sexual Orientation Not on file 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 Not on file Not on mikie e documented as of this encounter Last Filed Vital Signs Vital Sign Reading Time Taken Comments Blood Pressure 134/82 02/13/2020 2:33 PM CDT Pulse 66 02/13/2020 2:33 PM CDT Temperature - - Respiratory Rate - - Oxygen Saturation 97% 02/13/2020 2:33 PM CDT Inhaled Oxygen Concentration - - Weight 71.7 kg (158 lb) 02/13/2020 2:33 PM CDT Height 162.6 cm (5' 4 ) 02/13/2020 2:33 PM CDT Body Mass Index 27.12 02/13/2020 2:33 PM CDT documented in this encounter Progress Notes * Rowdy Marroquin MD - 02/13/2020 2:45 PM CDT [facility] DATE OF VISIT: 02/13/2020 CHIEF COMPLAINT Chief Complaint Patient presents with ??? New Patient deanna ASSESSMENT Diagnoses and all orders for this visit: Dyslipidemia (Primary) HTN (hypertension), benign - Transthoracic Echo Complete W Doppler/CF; Future LBBB (left bundle branch block) - Transthoracic Echo Complete W Doppler/CF; Future Palpitations Premature atrial contractions PLAN/RECOMMENDATIONS 1. Left bundle-branch block chronicity unknown. Discussed how the finding of left bundle-branch block is pathologic. Discussed potential contributions, implications, and need for further workup and monitoring. -Discussed echocardiogram, stress test, Holter monitor given palpitations as potential workup strategies to exclude CAD, cardiomyopathy. We discussed the potential progressive nature of her conduction abnormality and risk for cardiomyopathy with progressive dyssynchrony and widening QRS duration. All questions answered to her satisfaction. Currently patient is completely asymptomatic with the exception of infrequent brief fluttering in her chest without associated symptoms. -Will begin workup with a 2D echocardiogram to assess LV systolic/diastolic function, valve pathology, pulmonary pressures, chamber size. -We will consider an ischemic evaluation as well after review of echocardiogram. -However, patient is completely asymptomatic, quite active without limitation. Although ischemic evaluation will be recommended as workup I do not expect significant perfusion abnormalities to be present. -Discussed need for routine EKG in future to monitor QRS duration, the potential role of device/resynchronization therapy in context -Discussed surveillance system monitor depending monitor frequency/pattern of palpitations and or bradycardia. Patient advised to monitor heart rate and report near- syncope, syncope, heart rate less than 50 beats per minute, progressive fatigue or exercise limitation. -Avoid AV vickie blocking agents or medications known to slow HR or result in significant conductionabnormalities. I am not in a position to recommend abrupt discontinuation of Hydroxychloroquine in favor of an alternative, however, this is a possibility. 2. BP marginally controlled. Monitor BP on [...] observation/management for history of gastric carcinoid 7. Extensively reviewed records from [facility] through clinical desktop, EGD, laboratory studies. All questions answered to the patient's satisfaction. Further recommendations to follow after review of the above studies. Twelve lead EKG today sinus bradycardia 58 beats per minute occasional premature atrial contractions, left bundle-branch block LA interval 148 milliseconds QRS 160 milliseconds QT corrected 446 milliseconds Over 50% of this visit counseling LBBB, HTN, lipids, medications, lifestyle modification. Follow up in the office in 1 month video or sooner as needed. Thank you for [...] upper endoscopy. She underwent partial gastrectomy at [facility] without complication. She states over 20 years ago she had seen a gas line installer after being told she had an irregular heartbeat for which she wore a Holter monitor and wasplaced on atenolol. She took this medication for several years but does not recall a specific diagnosis. She admits she did not follow-up with a gas line installer after seeing him initially. She has now [...] Bang in 2019 suggestive of sleep apnea. MEDICAL HISTORY Past Medical History: Diagnosis Date [...] Last attempt to quit: 1998 Years since quittin.3 ??? Smokeless tobacco: Never Used Substance Use [...] Cancer Maternal Grandmother MEDICATIONS HOME MEDICATIONS : buPROPion XL (WELLBUTRIN [...] mg per tablet acetaminophen 500 mg capsule ALPRAZolam (NIRAVAM) 0.5 mg disintegrating tablet gabapentin (NEURONTIN) 300 mg capsule ondansetron ODT (ZOFRAN-ODT) 4 mg disintegrating tablet oxyCODONE (ROXICODONE) 5 mg immediate release tablet losartan-hydroCHLOROthiazide (HYZAAR) 50-12.5 mg per tablet ALLERGIES No Known Allergies [...] for environmental allergies. PHYSICAL EXAM Vitals BP 134/82 (BP Location: Right arm, Patient Position: Sitting) Pulse 66 Ht 162.6 cm (5' 4 ) Wt 71.7 kg (158 lb) SpO2 97% BMI 27.12 kg/m?? Weight: 71.7 kg (158 lb) Height: 162.6 cm (5' 4 ) Body mass index is 27.12 kg/m??. Physical Exam Constitutional: She is oriented [...] (L) 08/26/2019 HCT 28.1 (L) 08/26/2019 CREATININE 0.79 08/26/2019 POTASSIUM 4.1 08/26/2019 BUNSER 16 08/26/2019 Results for orders placed or performed during the hospital encounter of 08/23/19 Type and screen Result Value Ref Range José, indirect Negative ABO Rh B Positive CBC without differential Result Value Ref Range WBC 7.0 3.8 - 9.9 K/cumm Hgb 8.8 (L) 11.9 - 15.5 g/dL Hct 28.6 (L) 35.6 - 45.5 % Plt 313 150 - 400 K/cumm MPV 9.7 9.1 - 12.3 fL RBC 3.54 (L) 3.90 - 5.20 M/cumm MCV 80.8 (L) 81.3 - 96.4 fL MCH 24.9 (L) 27.1 - 33.3 pg MCHC 30.8 (L) 32.3 - 35.7 g/dL RDW CV 14.0 11.1 - 14.9 % RDW SD 41.1 35.7 - 48.1 fL NRBC abs 0.00 0.00 - 0.01 K/cumm Comprehensive metabolic panel Result Value Ref Range Sodium 141 135 - 145 mmol/L Potassium, pl 4.2 3.3 - 4.9 mmol/L Chloride 106 97 - 110 mmol/L CO2 27 22 - 32 mmol/L Anion gap 8 2 - 15 mmol/L BUN 11 8 - 25 mg/dL Creatinine 0.76 0.60 - 1.10 mg/dL Glucose 120 70 - 199 mg/dL Calcium 8.9 8.5 - 10.3 mg/dL Bilirubin, total 0.2 0.1 - 1.2 mg/dL Protein, pl 6.6 6.5 - 8.5 g/dL Albumin 3.6 3.5 - 5.0 g/dL Alk phos 51 40 - 130 Units/L ALT 42 7 - 45 Units/L AST 38 10 - 45 Units/L CBC without differential Result Value Ref Range WBC 6.4 3.8 - 9.9 K/cumm Hgb 8.2 (L) 11.9 - 15.5 g/dL Hct 26.9 (L) 35.6 - 45.5 % Plt 266 150 - 400 K/cumm MPV 9.3 9.1 - 12.3 fL RBC 3.33 (L) 3.90 - 5.20 M/cumm MCV 80.8 (L) 81.3 - 96.4 fL MCH 24.6 (L) 27.1 - 33.3 pg MCHC 30.5 (L) 32.3 - 35.7 g/dL RDW CV 14.2 11.1 - 14.9 % RDW SD 41.1 35.7 - 48.1 fL NRBC abs 0.00 0.00 - 0.01 K/cumm Basic metabolic panel Result Value Ref Range Sodium 141 135 - 145 mmol/L Potassium, pl 3.7 3.3 - 4.9 mmol/L Chloride 106 97 - 110 mmol/L CO2 30 22 - 32 mmol/L Anion gap 6 2 - 15 mmol/L BUN 8 8 - 25 mg/dL Creatinine 0.76 0.60 - 1.10 mg/dL Glucose 120 70 - 199 mg/dL Calcium 9.1 8.5 - 10.3 mg/dL CBC without differential Result Value Ref Range WBC 6.0 3.8 - 9.9 K/cumm Hgb 9.0 (L) 11.9 - 15.5 g/dL Hct 28.2 (L) 35.6 - 45.5 % Plt 291 150 - 400 K/cumm MPV 9.0 (L) 9.1 - 12.3 fL RBC 3.50 (L) 3.90 - 5.20 M/cumm MCV 80.6 (L) 81.3 - 96.4 fL MCH 25.7 (L) 27.1 - 33.3 pg MCHC 31.9 (L) 32.3 - 35.7 g/dL RDW CV 13.9 11.1 - 14.9 % RDW SD 40.3 35.7 - 48.1 fL NRBC abs 0.00 0.00 - 0.01 K/cumm Basic metabolic panel Result Value Ref Range Sodium 140 135 - 145 mmol/L Potassium, pl 3.9 3.3 - 4.9 mmol/L Chloride 103 97 - 110 mmol/L CO2 27 22 - 32 mmol/L Anion gap 10 2 - 15 mmol/L BUN 12 8 - 25 mg/dL Creatinine 0.84 0.60 - 1.10 mg/dL Glucose 98 70 - 199 mg/dL Calcium 8.9 8.5 - 10.3 mg/dL Magnesium Result Value Ref Range Magnesium 2.0 1.4 - 2.5 mg/dL Phosphorus Result Value Ref Range Phosphorus, pl 3.0 2.3 - 4.5 mg/dL CBC without differential Result Value Ref Range WBC 5.3 3.8 - 9.9 K/cumm Hgb 8.8 (L) 11.9 - 15.5 g/dL Hct 28.1 (L) 35.6 - 45.5 % Plt 299 150 - 400 K/cumm MPV 9.3 9.1 - 12.3 fL RBC 3.54 (L) 3.90 - 5.20 M/cumm MCV 79.4 (L) 81.3 - 96.4 fL MCH 24.9 (L) 27.1 - 33.3 pg MCHC 31.3 (L) 32.3 - 35.7 g/dL RDW CV 13.5 11.1 - 14.9 % RDW SD 39.2 35.7 - 48.1 fL NRBC abs 0.00 0.00 - 0.01 K/cumm Basic metabolic panel Result Value Ref Range Sodium 140 135 - 145 mmol/L Potassium, pl 4.1 3.3 - 4.9 mmol/L Chloride 103 97 - 110 mmol/L CO2 27 22 - 32 mmol/L Anion gap 10 2 - 15 mmol/L BUN 16 8 - 25 mg/dL Creatinine 0.79 0.60 - 1.10 mg/dL Glucose 106 70 - 199 mg/dL Calcium 9.5 8.5 - 10.3 mg/dL Personally reviewed EKG, electronic medical record, and bloodwork/lipids. Antonia Marroquin MD, [facility] This note is dictated and transcribed using Kame[employer] Direct Software. Quenching Machine Operator variancesmay occur. Despite proofreading, typographical errors may occur. documented in this encounter Miscellaneous Notes * Addendum Note - Neena Naranjo MA - 02/13/2020 2:45 PM CDTAddended by: NEENA NARANJO on: 02/14/2020 02:15 PM Modules accepted: Orders documented in this encounter Plan of Treatment Not on file documented as of this encounter Procedures Procedure Name Priority Date/Time Associated Diagnosis Comments ECG 12-LEAD Routine 02/13/2020 LBBB (left bundle branch block) Palpitations Premature atrial contractions documented in this encounter Results * ECG 12 lead (02/13/2020) Rowdy Marroquin MD ECG ORDERABLES Final Re sult documented in this encounter Visit Diagnoses Diagnosis Dyslipidemia- Primary Other and unspecified hyperlipidemia HTN (hypertension), benign Essential hypertension, benign LBBB (left bundle branch block) Other left bundle branch block Palpitations Premature atrial contractions Supraventricular premature beats documented in this encounter Discontinued Medications Medication Sig Discontinue Reason Start Date End Da te losartan-hydroCHLOROthia zide (HYZAAR) 50-12.5 mg per tabletIndications:hypert ension Take 1 tablet by mouth every morning Therapy completed 02/13/2020 documented as of this encounter Historical Medications * This list may reflect changes made after this encounter. multivitamin capsuleIndicatio ns:Vitamin Deficiency Prevention Take 1 capsule by mouth electrotype servicer before breakfast 4 valsartan-hydroC HLOROthiazide (DIOVAN-HCT) 160-12.5 mg per tabletIndication s:hypertension Take 1 tablet by mouth daily 0 added in this encounter Care Teams Molding Room Supervisor Relationship Specialty Start Date End Date Barbra Goddard PA [address] [place] [address] PCP - General Physician Breaker Up Machine Operator 02/13/20 03/24/20 Luann Lawrence NP Nurse Practitioner Nurse Practitioner 01/06/19 Adarsh Tuttle MD [address] [facility] [address] [place] [address] Consulting Physician Gastroenterology 02/22/19 Sebastien Martinez DO [address] [place] [address] Medical Oncologist/Elementary School Registrar Hematology and Oncology 02/22/19 Guru Winters DO [address] [place] [address] Consulting Physician Gastroenterology 02/22/19 Gato Abrams MD [address] [place] [address] Surgeon Surgical Oncology 09/07/19 documented as of this encounter
--- OUTSIDE RECORDS SUMMARY | 2024-10-04 03:05 | XMS_ITS | Encounter Summary ---
Author Organization [facility] Address [address] [place] [address] Care Team Providers Care Tab Builder Name Role Phone Luann Lawrence NP Unavailable [phone] Adarsh Tuttle MD Unavailable [phone] Sebastien Martinez DO Unavailable [phone] Guru Winters DO Unavailable [phone] Gato Abrams MD Unavailable [phone] Barbra Goddard [place] Primary Care Pr ovider Reason for Referral * Diagnostic Imaging (Routine) - Closed Specialty Diagnoses / Procedures Referred By Clemencia mendez Referred To Contact Radiology Diagnoses Inguinal hernia without obstruction or gangrene, recurrence not specified, unspecified laterality Procedures CT Abdomen Pelvis W Contrast CT abdomen pelvis with and without contrast Gato Abrams MD [address] [place] [address] Phone: tel: fax: [facility] [address] [place] [address] Referral ID Status Reason Start Date Expiration Date Visits Re quested Visits Authorized [id number] Closed 02/19/2020 08/30/2021 1 1 Reason for Visit * Diagnostic Imaging (Routine) - Closed Specialty Diagnoses / Procedures Referred By Clemencia mendez Referred To Contact Radiology Diagnoses Inguinal hernia without obstruction or gangrene, recurrence not specified, unspecified laterality Procedures CT Abdomen Pelvis W Contrast CT abdomen pelvis with and without contrast Gato Abrams MD [facility] [address] Phone: tel: fax: [facility] [address] [place] [address] Referral ID Status Reason Start Date Expiration Date Visits Re quested Visits Authorized [id number] Closed 02/19/2020 08/30/2021 1 1 Encounter Details Date Type Department Care Team (Latest Contact Info) Description 02/22/2020 1:19 PM CDT - 02/22/2020 11:59 PM CDT Hospital Encounter [facility] Radiology [address] [place] [address] Gato Abrams MD [address] [facility] [id number] [place], [place] [id number] Inguinal hernia without obstruction or gangrene, recurrence not specified, unspecified laterality Discharge Disposition: Discharge to home or self [...] on file 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 Gender Identity Female 06/07/2020 8:39 AM CDT Sexual Orientation Not on file 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 Not on mikie e documented as of this encounter Medications at Time of Discharge cholecalciferol (VITAMIN D-3) 1,000 unit capsuleIndications: Vitamin D Deficiency Take 2 capsules (2,000 Units total) by mouth tube blower before breakfast acetaminophen 500 mg capsule Take 2 capsules (1,000 mg total) by mouth every 6 (six) hours 50 tablet 08/27/2019 0 ALPRAZolam (NIRAVAM) 0.5 mg disintegrating tablet Take 0.5 mg by mouth nightly as needed for sleep 1/2 to 1 tablet nightly as needed for insomnia 0 buPROPion XL (WELLBUTRIN XL) 150 mg 24 hr tabletIndications:A nxiety with Depression Take 150 mg by mouth every morning 03/12/2019 0 cyanocobalamin (Vitamin B-12) 1,000 mcg/mL injection Inject 1 mL (1,000 mcg total) into the muscle as instructed every 30 (thirty) days 3 mL 2 12/25/2019 1 escitalopram (LEXAPRO) 10 mg tabletIndications:A nxiety with Depression Take 10 mg by mouth every morning 0 gabapentin (NEURONTIN) 300 mg capsule Take 1 capsule (300 mg total) by mouth 3 (three) times a day 90 capsule 08/27/2019 0 hydroxychloroquine (PLAQUENIL) 200 mg tabletIndications:A rthritis Take 1 tablet (200 mg total) by mouth tube blower before breakfast 01/30/2019 3 insulin syringe-needle U-100 1 mL 29 gauge x 1/2 syringe 1 Syringe every 30 (thirty) days 30 each 1 2019 0 multivitamin capsuleIndications: Vitamin Deficiency Prevention Take 1 capsule by mouth tube blower before breakfast 4 omeprazole (PriLOSEC) 20 mg capsuleIndications: Treatment of Non-Bleeding Gastric Disorder Take 20 mg by mouth every morning 0 ondansetron ODT (ZOFRAN-ODT) 4 mg disintegrating tablet Take 1 tablet (4 mg total) by mouth every 4 (four) hours as needed for nausea or vomiting 20 tablet 08/27/2019 0 oxyCODONE (ROXICODONE) 5 mg immediate release tabletIndications:P ain Take 1 tablet (5 mg total) by mouth every 4 (four) hours as needed for pain 20 tablet 08/27/2019 0 pravastatin (PRAVACHOL) 40 mg tabletIndications:h yperlipidemia Take 40 mg by mouth every morning 11/15/2018 0 valsartan-hydroCHLO ROthiazide (DIOVAN-HCT) 160-12.5 mg per tabletIndications:h ypertension Take 1 tablet by mouth daily 0 documented as of this encounter Discharge Disposition Disposition Code Departure Means Destination Discharge to home or self care documented in this encounter Plan of Treatment Not on file documented as of this encounter Procedures Procedure Name Priority Date/Time Associated Diagnosis Comments CT ABDOMEN PELVIS W CONTRAST Schedule Routine, Read Routine (OP Routine) 02/22/2020 2:12 PM CDT Inguinal hernia without obstruction or gangrene, recurrence not specified, unspecified laterality POCT CREATININE - DEVICE Routine 02/22/2020 2:00 PM CDT documented in this encounter Results [...] Abrams MD IMG CT PROCEDURES Final Result * POCT creatinine (02/22/2020 2:00 PM CDT) Creatinine POC 0.7 0.6 - 1.1 mg/dL [facility] Blood specimen (specimen) 02/22/2020 2:00 PM CDT 02/22/2020 2:00 PM CDT Gato Abrams MD LAB POCT ORDERABLES - DE VICE Final Result [facility] [address] [facility] Department [place] [address] documented in this encounter Visit Diagnoses Diagnosis Inguinal hernia without obstruction or gangrene, recurrence not specified, unspecified laterality documented in this encounter Administered Medications Inactive Administered Medications - up to 3 most recent administrations Medication Order MAR Action Action Date Dose Rate Site ioversoL (OPTIRAY 350) syringe syringe 100 mL 100 mL, intravenous, Once in imaging, contrast, Starting on Dariela 02/22/20 at 1413, For 1 dose Given 02/22/2020 2:14 PM CDT 100 mL documented in this encounter Care Teams Tab Builder Relationship Specialty Start Date End Date Barbra Goddard PA [address] [place] [address] PCP - General Physician Enrollment Manager 02/13/20 03/24/20 Luann Lawrence NP Nurse Practitioner Nurse Practitioner 01/06/19 Adarsh Tuttle MD [address] [facility] [address] [place] [address] Consulting Physician Gastroenterology 02/22/19 Sebastien Martinez DO [address] [place] [address] Medical Oncologist/Ore Puncher Hematology and Oncology 02/22/19 Guru Winters DO [address] [place] [address] Consulting Physician Gastroenterology 02/22/19 Gato Abrams MD [address] [place] [address] Surgeon Surgical Oncology 09/07/19 documented as of this encounter
--- OUTSIDE RECORDS SUMMARY | 2024-10-04 03:05 | XMS_ITS | Encounter Summary ---
Author Organization [facility] Address [address] [place] [address] Phone Care Team Providers Care Licensed Acupuncturist Name Role Phone Luann Lawrence ANUP Unavailable [phone] Adarsh Tuttle MD Unavailable [phone] Sebastien Martinez DO Unavailable [phone] Guru Winters DO Unavailable [phone] Gato Abrams MD Unavailable Barbra Goddard Primary Care Pr ovider Encounter Details Date Type Department Care Team (Late st Contact Info) Description 02/26/2020 Orders Only [facility] Surgery [address] [facility] [address] [place] [address] Gato Abrams MD [address] [facility] [id number] [place] [address] Social History Tobacco Use Types Packs/Day Years Used Date Smoking Tobacco: Former Cigarettes 1 2 1 7 - 1998 Smokeless Tobacco: Never Alcohol Use Standard Drinks/Week Comments Yes 2 (1 standard drink = 0.6 oz pur e alcohol) Comments No Sex and Gender Information Value Date Recorded Sex Assigned at Not on file Legal Sex Female 2:22 AM S[employer]TER [employer] Gender Identity Female 06/07/2020 8:39 AM CDT Sexual Orientation Not on file 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 Not on mikie e documented as of this encounter Plan of Treatment Not on file documented as of this encounter Visit Diagnoses Not on filedocumented in this encounter Care Teams Licensed Acupuncturist Relationship Specialty Start Date End Date RupeshZoraidaNBA Barcenas [facility] [facility] [address] [place], [place] [address] PCP - General Physician Hair Weaver 02/13/20 03/24/20 Luann Lawrence, ANUP Nurse Practitioner Nurse Practitioner 01/06/19 Adarsh Tuttle MD [address] [facility] [address] [place] [address] Consulting Physician Gastroenterology 02/22/19 Sebastien Martinez DO [address] [place] [address] Medical Oncologist/Power Plant Superintendent Hematology and Oncology 02/22/19 Guru Winters DO [address] [place] [address] Consulting Physician Gastroenterology 02/22/19 Gato Abrams MD [address] [place] [address] Surgeon Surgical Oncology 09/07/19 documented as of this encounter
--- OUTSIDE RECORDS SUMMARY | 2024-10-04 03:05 | XMS_ITS | Encounter Summary ---
Author Organization [facility] Address [address] [place] [address] Phone Care Team Providers Care Cleater Name Role Phone Luann Lawrence ANUP Unavailable [phone] Adarsh Tuttle MD Unavailable [phone] Sebastien Martinez DO Unavailable [phone] Guru Winters DO Unavailable [phone] Gato Abrams MD Unavailable [phone] Elizabeth Borrego Primary Care Provider [phone] Encounter Details Date Type Department Care Team (Late st Contact Info) Description 04/24/2020 Orders Only [facility] Gastroenterology [address] [facility] [address] [place] [address] Agustin Brown MD [address] [place] [address] Submucosal lesion of stomach (Primary Dx) Social History Tobacco Use Types [...] file 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 Gender Identity Female 06/07/2020 8:39 AM CDT Sexual Orientation Not on file 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 Not on mikie e documented as of this encounter Plan of Treatment Not on file documented as of this encounter Visit Diagnoses Diagnosis Submucosal lesion of stomach- Primary documented in this encounter Orders Case Request Count Last Ordered Date First Orde red Date CASE REQUEST GI 1 04/24/2020 documented in this encounter Care Teams Cleater Relationship Specialty Start Date End Date Elizabeth Borrego PA [address] [place] [address] PCP - General Internal Medicine 03/25/20 09/27/23 Luann Lawrence NP Nurse Practitioner Nurse Practitioner 01/06/19 Adarsh Tuttle MD [address] [facility] [address] [place] [address] Consulting Physician Gastroenterology 02/22/19 Sebastien Martinez DO [address] [place] [address] Medical Oncologist/Litigation Paralegal Hematology and Oncology 02/22/19 Guru Winters DO [address] [place] [address] Consulting Physician Gastroenterology 02/22/19 Gato Abrams MD [address] [place] [address] Surgeon Surgical Oncology 09/07/19 documented as of this encounter
--- OUTSIDE RECORDS SUMMARY | 2024-10-04 03:05 | XMS_ITS | Encounter Summary ---
Author Organization [facility] Address [address] [place] [address] Care Team Providers Care Billet Header Name Role Phone Luann Lawrence NP Unavailable [phone] Adarsh Tuttle MD Unavailable [phone] Sebastien Martinez DO Unavailable [phone] Guru Winters DO Unavailable [phone] Gato Abrams MD Unavailable [phone] Elizabeth Borrego Primary Care Provider [phone] Reason for Referral * MRI/CAT/PET Scan (Routine) - Closed Specialty Diagnoses / Procedures Referred By Clemencia mendez Referred To Contact Radiology Diagnoses Malignant carcinoid tumor of stomach (HCC) Procedures PET/CT Ga-68 Dotatate Skull to Thigh Sebastien Martinez DO [facility] [address] Phone: tel: fax: [address] [phone] Referral ID Status Reason Start Date Expiration Date Visits Re quested Visits Authorized [id number] Closed 03/08/2020 09/17/2021 1 1 Reason for Visit * MRI/CAT/PET Scan (Routine) - Closed Specialty Diagnoses / Procedures Referred By Clemencia mendez Referred To Contact Radiology Diagnoses Malignant carcinoid tumor of stomach (HCC) Procedures PET/CT Ga-68 Dotatate Skull to Thigh Sebastien Martinez DO [address] [address] Phone: tel: fax: [address] [address] Referral ID Status Reason Start Date Expiration Date Visits Re quested Visits Authorized [id number] Closed 03/08/2020 09/17/2021 1 1 Encounter Details Date Type Department Care Team (Latest Contact Info) Description 03/26/2020 1:48 PM CDT - 03/26/2020 11:59 PM CDT Hospital Encounter [facility] [address] [place] [address] Sbeastien Martinez, DO [address] [id number] Malignant carcinoid tumor of stomach (CMS/HCC) Discharge [...] on file 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 Gender Identity Female 06/07/2020 8:39 AM CDT Sexual Orientation Not on file 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 Not on file Not on mikie e documented as of this encounter Last Filed Vital Signs Vital Sign Reading Time Taken Comments Blood Pressure - - Pulse - - Temperature - - Respiratory Rate - - Oxygen Saturation - - Inhaled Oxygen Concentration - - Weight 71.7 kg (158 lb) 03/26/2020 2:58 PM CDT Height - - Body Mass Index 27.12 03/25/2020 2:22 PM CDT documented in this encounter Medications at Time of Discharge cholecalciferol (VITAMIN D-3) 1,000 unit capsuleIndicatio ns:Vitamin D Deficiency Take 2 capsules (2,000 Units total) by mouth bonding supervisor before breakfast buPROPion XL (WELLBUTRIN XL) 150 [...] 1 tablet (200 mg total) by mouth bonding supervisor before breakfast 01/30/2019 3 insulin syringe-needle U-100 1 mL 29 gauge x 1/2 syringe 1 Syringe every 30 (thirty) days 30 each 1 2019 0 multivitamin capsuleIndicatio ns:Vitamin Deficiency Prevention Take 1 capsule by mouth bonding supervisor before breakfast 4 omeprazole (PriLOSEC) 20 mg capsuleIndicatio ns:Treatment of Non-Bleeding Gastric Disorder Take 20 mg by mouth every morning 0 pravastatin (PRAVACHOL) 40 mg tabletIndication s:hyperlipidemia [...] THIGH Schedule Routine, Read Routine (OP Routine) 03/26/2020 4:14 PM CDT Malignant carcinoid tumor of stomach (CMS/HCC) documented in this encounter Results * PET/CT Ga-68 Dotatate [...] obtained. ??The study was interpreted on the [employer] workstation. ?? Scanned area: skull vertex to [...] obtained. The study was interpreted on the [employer] workstation. Scanned area: skull vertex to the [...] it. Electronically signed by: Zaina Angela M.D. Sebastien Martinez DO IMG PET PROCEDURES Final Res ult documented in this encounter Visit Diagnoses Diagnosis Malignant carcinoid tumor of stomach (HCC) Malignant carcinoid tumor of the stomach documented in this encounter Administered Medications Inactive Administered Medications - up to 3 most recent administrations Medication Order MAR Action Action Date Dose Rate Site diatrizoate meglumine-diatrizoate sodium (GASTROGRAFIN/MD-GASTROVIE W) 66-10 % solution 7 mL 7 mL, oral, Once in imaging, contrast, Starting on Wed03/26/20 at 1457, For 1 dose Given 03/26/2020 4:02 PM CDT 3 mL Ga-68 dotatate injection 3.88 millicurie 3.88 millicurie, intravenous, Once in imaging, radiopharmaceutical, Starting on Wed03/26/20 at 1456, For 1 dose Given 03/26/2020 2:50 PM CDT 3.9 millicuries documented in this encounter Care Teams Billet Header Relationship Specialty Start Date End Date Elizabeth Borrego PA [address] [facility] [address] [place] [address] PCP - General Internal Medicine 03/25/20 09/27/23 Luann Lawrence NP Nurse Practitioner Nurse Practitioner 01/06/19 Adarsh Tuttle MD [address] [facility] [address] [place] [address] Consulting Physician Gastroenterology 02/22/19 Sebastien Martinez DO [address] [place] [address] [id number] Medical Oncologist/Cycle Liaison Hematology and Oncology 02/22/19 Guru Winters DO [address] [place] [address] [id number] Consulting Physician Gastroenterology 02/22/19 Gato Abrams MD [address] [place] [address] [id number] Surgeon Surgical Oncology 09/07/19 documented as of this encounter
--- OUTSIDE RECORDS SUMMARY | 2024-10-04 03:05 | XMS_ITS | Encounter Summary ---
Author Organization [facility] Address [address] [place] [address] Care Team Providers Care Acid Treater Name Role Phone Luann Lawrence NP Unavailable [phone] Adarsh Tuttle MD Unavailable [phone] Sebastien Martinez DO Unavailable [phone] Guru Winters DO Unavailable [phone] Gato Abrams MD Unavailable [phone] Elizabeth Borrego Primary Care Provider [phone] Encounter Details Date Type Department Care Team (Latest Contact Info) Description 04/29/2020 12:25 PM CDT - 04/29/2020 4:01 PM CDT Hospital Encounter [facility] 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 Not on file Not on mikie e documented as of this encounter Last Filed Vital Signs Vital Sign Reading Time Taken Comments Blood Pressure 109/62 04/29/2020 3:17 PM CDT Pulse 47 04/29/2020 3:17 PM CDT Temperature 36.4 ??C (97.5 ??F) 04/29/2020 2:57 PM CD T Respiratory Rate 15 04/29/2020 3:17 PM CDT Oxygen Saturation 98% 04/29/2020 3:17 PM CDT Inhaled Oxygen Concentration - - Weight 71.7 kg (158 lb) 04/29/2020 1:55 PM CDT Height 162.6 cm (5' 4 ) 04/29/2020 1:55 PM CDT Body Mass Index 27.12 04/29/2020 1:55 PM CDT documented in this encounter Discharge Diagnoses Diagnosis Disease of pancreas, unspecified - DISEASE OF PANCREAS, UNSPECIFIED Polyp of stomach and duodenum - POLYP OF STOMACH AND DUODENUM Anemia, unspecified - ANEMIA, UNSPECIFIED Noninfective gastroenteritis and colitis, unspecified - NONINFECTIVE GASTROENTERITIS AND COLITIS, UNSPECIFIED Major depressive disorder, single episode, unspecified - MAJOR DEPRESSIVE DISORDER, SINGLE EPISODE, UNSPECIFIED Cardiac murmur, unspecified - CARDIAC MURMUR, UNSPECIFIED Hyperlipidemia, unspecified - HYPERLIPIDEMIA, UNSPECIFIED Essential (primary) hypertension - ESSENTIAL (PRIMARY) HYPERTENSION Unspecified essential hypertension Left bundle-branch block, unspecified - LEFT BUNDLE-BRANCH BLOCK, UNSPECIFIED Rheumatoid arthritis, unspecified (HCC) - RHEUMATOID ARTHRITIS, UNSPECIFIED Personal history of malignant carcinoid tumor of stomach - PERSONAL HISTORY OF MALIGNANT CARCINOID TUMOR OF STOMACH Personal history of urinary (tract) infections - PERSONAL HISTORY OF URINARY (TRACT) INFECTIONS Personal history of nicotine dependence - PERSONAL HISTORY OF NICOTINE DEPENDENCE alf (current) use of insulin (HCC) - RISK ADJUSTMENT SPECIALIST (CURRENT) USE OF INSULIN Other half-way (current) drug therapy - OTHER SHELTER (CURRENT) DRUG THERAPY 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] documented in this encounter Medications at Time of Discharge cholecalciferol (VITAMIN D-3) 1,000 unit capsuleIndicatio ns:Vitamin D Deficiency Take 2 capsules (2,000 Units total) by mouth stadium attendant before breakfast buPROPion XL (WELLBUTRIN XL) 150 [...] 1 tablet (200 mg total) by mouth stadium attendant before breakfast 01/30/2019 3 insulin syringe-needle U-100 1 mL 29 gauge x 1/2 syringe 1 Syringe every 30 (thirty) days 30 each 1 2019 0 multivitamin capsuleIndicatio ns:Vitamin Deficiency Prevention Take 1 capsule by mouth stadium attendant before breakfast 4 oxyCODONE (OXY-IR) 5 mg [...] PM CDT Pre Endoscopy History and Physical Fabiola Gibson is a 54 y.o. female who is here for Procedure(s): US Endoscopy wuprep per Thuy llamas to [facility] The indication(s) for the procedure(s): Abnormal PET [...] every 30 (thirty) days 12/25/19 Yes Sebastien Martinez DO escitalopram (LEXAPRO) 10 mg tablet Take 1 [...] mg by mouth every morning 04/29/20 Historical ProviderMD Review of Systems A pertinent, focused review [...] Female Attending MD: Agustin Brown M.D. Room: [facility] ENDOSCOPY ROOM 9 Note Status: Finalized Procedure: [...] passed under direct vision. The GIF H190 [id number] endoscope was introduced through the mouth, and advanced to the jejunum. The Olympus radial endosonoscope [id number] was introduced through the mouth, and advanced [...] On: 04/29/2020 2:20 PM Recognized by the [employer] for promoting quality [...] Female Attending MD: Agustin Brown M.D. Room: [facility] ENDOSCOPY ROOM 9 Note Status: Finalized Procedure: [...] passed under direct vision. The GIF H190 [id number] endoscope was introduced through the mouth, and advanced tothe jejunum. The Olympus radial [id number] was introduced through the mouth, and advanced [...] On: 04/29/2020 2:20 PM Recognized by the [employer] for promoting quality in endoscopy Agustin Brown MD ENDOSCOPY PROCEDURES Final Result documented in this encounter Visit Diagnoses Diagnosis Submucosal lesion of stomach- Primary Submucosal lesion of stomach documented in this [...] documented as of this encounter Care Teams Acid Treater Relationship Specialty Start Date End Date Elizabeth Borrego PA [address] [facility] [address] [place] [address] PCP - General Internal Medicine 03/25/20 09/27/23 Luann Lawrence, ANUP Nurse Practitioner Nurse Practitioner 01/06/19 Adarsh Tuttle MD [address] [facility] [address] [place] [address] Consulting Physician Gastroenterology 02/22/19 Sebastien Martinez DO [address] [place] [address] Medical Oncologist/Galley Worker Hematology and Oncology 02/22/19 Guru Winters DO [address] [place] [address] Consulting Physician Gastroenterology 02/22/19 Gato Abrams MD [address] [place] [address] [id number] Surgeon Surgical Oncology 09/07/19 documented as of this encounter
--- OUTSIDE RECORDS SUMMARY | 2024-10-04 03:05 | XMS_ITS | Encounter Summary ---
Author Organization [facility] Healthcare Address [address] [place] [address] Care Team Providers Care Dumpman Name Role Phone Luann Lawrence NP Unavailable [phone] Barbra Goddard Primary Care Pr ovider Adarsh Tuttle MD Unavailable [phone] Sebastien Martinez DO Unavailable [phone] Guru Winters DO Unavailable [phone] Gato Abrams MD Unavailable [phone] Reason for Visit * Diagnostic Imaging (Routine) - Closed Specialty Diagnoses / Procedures Referred By Clemencia mendez Referred To Contact Procedures Breast Imaging Screening Outside Reference Miscellaneous, Not In File Referral ID Status Reason Start Date Expiration Date Visits Re quested Visits Authorized [id number] Closed 03/30/2023 04/28/2024 1 1 Encounter Details Date Type Department Care Team (Late st Contact Info) Description 09/21/2019 Ancillary Procedure [facility] - Imaging [phone] Social History Tobacco Use Types Packs/Day Years Used Date Smoking Tobacco: Former Cigarettes 1 2 1 7 - 1998 Smokeless Tobacco: Never Alcohol Use Standard Drinks/Week Comments Yes 2 (1 standard drink = 0.6 oz pur e alcohol) Comments No Sex and Gender Information Value Date Recorded Sex Assigned at Not on file 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 Gender Identity Female 06/07/2020 8:39 AM CDT Sexual Orientation Not on file 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 us Not In File Miscellaneous IMG MAMMO PROCEDURES F inal Result RAD_PACS_OUTSIDE_FILM_[facility] documented in this encounter Visit Diagnoses Not on filedocumented in this encounter Care Teams Dumpman Relationship Specialty Start Date End Date Barbra Goddard PA PCP - General Physician Installations Inspector 01/22/19 12/05/19 Luann Lawrence NP Nurse Practitioner Nurse Practitioner 01/06/19 Adarsh Tuttle MD [address] [facility] [address] [place] [address] Consulting Physician Gastroenterology 02/22/19 Sebastien Martinez DO [address] [place] [address] Medical Oncologist/Solderer Barrel Ribs Hematology and Oncology 02/22/19 Guru Winters DO [address] [place] [address] Consulting Physician Gastroenterology 02/22/19 Gato Abrams MD [address] [place] [address] Surgeon Surgical Oncology 09/07/19 documented as of this encounter
--- OUTSIDE RECORDS SUMMARY | 2024-10-04 03:05 | XMS_ITS | Encounter Summary ---
Author Organization [facility] Address [address] [place] [address] Phone Care Team Providers Care Validation Architect Name Role Phone Luann Lawrence ANUP Unavailable [phone] Adarsh Tuttle MD Unavailable [phone] Sebastien Martinez DO Unavailable [phone] Guru Winters DO Unavailable [phone] Gato Abrams MD Unavailable [phone] Elizabeth Borrego Primary Care Provider [phone] Encounter Details Date Type Department Care Team (Late st Contact Info) Description 04/24/2020 Telephone [facility] Gastroenterology [address] [facility] [address] [place] [address] Thuy Mosley RN Social History Tobacco Use Types Packs/Day [...] on file 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 Gender Identity Female 06/07/2020 8:39 AM CDT Sexual Orientation Not on file 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 The patient was asked about recent travel (<14 days) any contacts <14 days with known or suspected COVID patients. The patient was asked about sy mptoms, including fever (>100F), new or worsening cough, trouble breathing, new loss of taste orloss of smell, new or worsening body aches, and sore throat different than typical seasonal allergies. The patient was advised that if they were to develop symptoms prior to their procedure, they should call our office. The patient was advised of our endoscopy visitor restrictions. The patient was a dvised to bring a mask with them and wear while they are in the hospital, if they already have one. documented in this encounter Plan of Treatment Not on file documented as of this encounter Visit Diagnoses Not on filedocumented in this encounter Care Teams Validation Architect Relationship Specialty Start Date End Date Elizabeth Borrego PA [address] [place] [address] PCP - General Internal Medicine 03/25/20 09/27/23 Luann Lawrence NP Nurse Practitioner Nurse Practitioner 01/06/19 Adarsh Tuttle MD [address] [facility] [address] [place] [address] Consulting Physician Gastroenterology 02/22/19 Sebastien Martinez DO [facility] [facility] [address] [place] [address] Medical Oncologist/Check Grader Hematology and Oncology 02/22/19 Guru Winters DO [address] [place] [address] Consulting Physician Gastroenterology 02/22/19 Gato Abrams MD [address] [place] [address] Surgeon Surgical Oncology 09/07/19 documented as of this encounter
--- OUTSIDE RECORDS SUMMARY | 2024-10-04 03:06 | XMS_ITS | Encounter Summary ---
Author Organization [facility] Healthcare Address [address] [place] [address] Care Team Providers Care Vp Of Product Name Role Phone Luann Lawrence NP Unavailable [phone] Barbra Goddard Primary Care Pr ovider Adarsh Tuttle MD Unavailable [phone] Sebastien Martinez DO Unavailable [phone] Guru Winters DO Unavailable Encounter Details Date Type Department Care Team (Latest Contact Info) Description 06/20/2019 9:30 AM CDT - 06/20/2019 10:30 AM CDT Surgery [facility] [address] [place] [address] Marciano Garcia MD [address] [facility] [address] [place] [address] ESOPHAGOGASTRODUODENOSCOPY ENDOSCOPIC ULTRASOUND [GI509] Surgery Details Date/Time Status Location OR Service Patient Class Case Class Case Type Trauma Case? 06/20/2019 9:30 AM Posted [facility] ENDOSCOPY ERCP 02 Gastroenterology Outpatient Elective Panel 1 Procedure LRB Anes Op Region Wound Class Comments ESOPHAGOGASTRODUODENOSCOPY ENDOSCOPIC ULTRASOUND N/A Monitor Anesthesia Care N/A Endo Add On Esophagogastroduodenoscopy Biopsy N/A Choice Surgeon Surgeon Role Service Panel Marciano Garcia MD Primary Gastroent erology 1 Vlad Marie MD Fellow Gastroenterolog y 1 documented in this encounter Social History Tobacco Use Types Packs/Day Years Used Date Smoking Tobacco: Former Cigarettes 1 2 Smokeless Tobacco: Never Alcohol Use Standard Drinks/Week Comments Yes 6 (1 standard drink = 0.6 oz pur e alcohol) Comments Unknown Sex and Gender Information Value Date Recorded Sex Assigned at Not on file Legal Sex Female 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 Gender Identity Female 06/07/2020 8:39 AM CDT Sexual Orientation Not on file 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 Not on file Not on file Not on mikie e documented as of this encounter Last Filed Vital Signs Vital Sign Reading Time Taken Comments Blood Pressure 117/72 06/20/2019 9:05 AM CDT Pulse 59 06/20/2019 9:05 AM CDT Temperature 36.1 ??C (97 ??F) 06/20/2019 9:05 AM CDT Respiratory Rate 18 06/20/2019 9:05 AM CDT Oxygen Saturation 100% 06/20/2019 9:05 AM CDT Inhaled Oxygen Concentration - - Weight 71.7 kg (158 lb) 06/20/2019 9:05 AM CDT Height 162.6 cm (5' 4 ) 06/20/2019 9:05 AM CDT Body Mass Index 27.12 06/20/2019 9:05 AM CDT documented in this encounter Medications at Time of Discharge cholecalciferol (VITAMIN D-3) 1,000 unit capsuleIndicatio ns:Vitamin D Deficiency Take 2 capsules (2,000 Units total) by mouth 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 before 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 buPROPion XL (WELLBUTRIN XL) 150 mg 24 hr tabletIndication s:Anxiety with Depression Take 150 mg by mouth every morning 03/12/2019 0 escitalopram (LEXAPRO) 10 mg tabletIndication s:Anxiety with Depression Take 10 mg by mouth every morning 0 hydroxychloroqui ne (PLAQUENIL) 200 mg tabletIndication s:Arthritis Take 1 tablet (200 mg total) by mouth 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 before breakfast 01/30/2019 3 losartan-hydroCH LOROthiazide (HYZAAR) 50-12.5 mg per tabletIndication s:hypertension Take 1 tablet by mouth every morning 0 multivit with min-folic acid 200 mcg tablet,chewable Take by mouth 9 omeprazole (PriLOSEC) 20 mg capsule omeprazole 20 mg capsule,delayed release 9 pravastatin (PRAVACHOL) 40 mg tabletIndication s:hyperlipidemia Take 40 mg by mouth every morning 11/15/2018 0 documented as of this encounter Discharge Disposition Disposition Code Departure Means Destination Discharge to home or self care documented in this encounter H&P Notes * Vlad Marie MD - 06/20/2019 9:45 AM CDT Pre Endoscopy History and Physical Juanjo Gibson is a 53 y.o. female who is here for Procedure(s): US Endoscopy The indication(s) for the procedure(s): gastric carcinoid follow up, preoperative assessment Past Medical History: Diagnosis Date ??? Anemia ??? 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 Carcinoid tumor of stomach ??? Depression ??? Hyperlipidemia ??? Hypertension ??? Rheumatoid arthritis (CMS/HCC) ??? Urinary tract infection Past Surgical History: Procedure Laterality Date ??? SECTION twice ??? COLONOSCOPY ??? ENDOMETRIAL ABLATION ??? ESOPHAGOGASTRODUODENOSCOPY ??? TUBAL LIGATION Social History Tobacco Use ??? Smoking status: Former Smoker Packs/day: 1.00 Years: 2.00 Pack years: 2.00 ??? Smokeless tobacco: Never Used Substance Use Topics ??? Alcohol use: Yes Alcohol/week: 3.6 oz Types: 6 Cans of beer per week Family History [...] (WELLBUTRIN XL) 150 mg 24 hr tablet 03/12/19 Yes Historical Provider, cholecalciferol (VITAMIN D3) 2,000 unit capsule 3,000 Units Yes Historical Provider, escitalopram (LEXAPRO) 10 mg tablet Take 10 mg by mouth daily Yes Historical Provider, hydroxychloroquine (PLAQUENIL) 200 mg tablet Take 200 mg by mouth 01/30/19 Yes Historical Provider, losartan-hydroCHLOROthiazide (HYZAAR) 50-12.5 mg per tablet Take 1 tablet by mouth daily Yes Historical Provider, multivit with min-folic acid 200 mcg tablet,chewable Take by mouth Yes Historical Provider, omeprazole (PriLOSEC) 20 mg capsule omeprazole 20 mg capsule,delayed release Yes Historical Provider, pravastatin (PRAVACHOL) 40 mg tablet 11/15/18 Yes Historical Provider, Review of Systems A pertinent, focused review of systems was completed and negative, except as noted above. OBJECTIVE: Vitals: Vitals: 06/20/19 0905 BP: 117/72 Pulse: 59 Resp: 18 Temp: 36.1 ??C (97 ??F) TempSrc: Temporal SpO2: 100% Weight: 71.7 kg (158 lb) Height: 162.6 [...] for the reasons stated above. Cosigned by Marciano Garcia MD at 06/20/2019 10:26 AM CDT Associated attestation - Marciano Garcia MD - 06/20/2019 10:26 AM CDT I have seen and examined the patient on 06/20/19. I agree with the findings and plan of care as documented in the resident's/fellow's note. documented in this encounter Procedure Notes * Marciano Garcia MD - 06/20/2019 9:42 AM CDTAssociated Order(s): EUS GI ENDOSCOPY [facility] Patient Name: Juanjo Gibson Procedure Date: 06/20/2019 9:42 AM Date of : 1965 Admit Type: Outpatient Age: 53 Gender: Female Attending MD: Marciano Garcia M.D. Room: [facility] ENDOSCOPY ROOM 2 Note Status: Finalized Procedure: Upper EUS Indications: Gastric carcinoid. Post endoscopic resection. Preoperative assessment Referring MD: Gato Abrams M.D., Emiliano Santos Providers: Marciano Garcia M.D., Vlad Marie M.D. Medicines: Monitored Anesthesia Care Complications: No immediate complications. Estimated Blood Loss: Estimated blood loss: none. Procedure: Pre-Anesthesia Assessment: - The risks and benefits of the procedure and the sedation options and risks were discussed with the patient. All questions were answered and informed consent was obtained. - The anesthesia plan was to use monitored anesthesia care (MAC). - Immediately prior to administration of medications, the patient was re-assessed for adequacy to receive sedatives. The risks, benefits and alternatives were discussed and informed consent was obtained.The Olympus radial endosonoscope [id number] was introduced through the mouth, and advanced to the second part of duodenum The GIF [id number] endoscope was introduced through the mouth, and advanced to the second part of duodenum The upper EUS was accomplished without difficulty. The patient tolerated the procedure well. Findings: Endoscopic Finding : The esophagus was endoscopically normal. A single 6 mm submucosal papule (nodule) with no stigmata of recent bleeding was found in the gastric antrum. Biopsies were taken with a cold forceps for histology. Patchy erythematous mucosa was found in the gastric antrum. Biopsies were taken with a cold forceps for histology. There was a scar on the lesser curve of the antrum. The body and fundus appeared normal. Biopsied and placed in a separate jar. A erosions were found in the cardia. There was oozing with scope contact. Biopsies were taken with a cold forceps for histology. The examined duodenum was endoscopically normal. Endosonographic Finding : Endosonographic images of the stomach were unremarkable. No pathologic lymphadenopathy, no masses and no wall thickening were identified. There was no sign of significant endosonographic abnormality in the pancreatic head, genu of the pancreas, pancreatic body, uncinate process of the pancreas and main pancreatic duct. There was no sign of significant endosonographic abnormality in the common bile duct. The maximum diameter of the duct was 1 mm. There was no sign of significant endosonographic abnormality in the visualized portion of the liver. Impression: - Normal esophagus. - A single submucosal papule (nodule) found in the stomach. Biopsied. - Erythematous mucosa in the antrum. Biopsied. - A few erosions in the stomach. Biopsied. - Normal examined duodenum. - Endosonographic images of the stomach were unremarkable. Recommendation: - Return to referring physician. - In the unusual situation that you develop abdominal pain, bleeding or other significant problems in the days following this procedure please call my office at [phone] and speak to my nurse. After hours and evenings please call [phone] and speak to the GI fellow promotions producer. Please tell the fellow that Dr. Garcia did your procedure and that you were instructed to have the fellow call me or the physician covering for me to discuss the management of your condition. If you have an urgent problem, please go to the nearest emergency room and have the ER doctor call my office during the day or the GI fellow after hours and weekends to arrange admission or transfer to our facility. Please bring this report with you if you go to the emergency room. - Call my nurses in the GI office at [phone] ([phone]) for your final pathology results in 7 days. Attending Participation: I was present and participated during the entire procedure, including non-lind portions. Electronically signed by Marciano Garcia MD Marciano Garcia M.D. 06/20/2019 11:15:42 AM . Number of Addenda: 0 Note Initiated On: 06/20/2019 9:42 AM Recognized by the [place] [employer] G[employer]intestinal [employer] for promoting quality in endoscopy documented in this encounter Plan of Treatment Pending Results Name Type Priority Associated Diagnoses Date /Time US Endoscopy Endo Imaging Procedure IP Routine Carcinoid tumor of stomach 06/20/2019 10:30 AM CDT documented as of this encounter Procedures Procedure Name Priority Date/Time Associated Diagnosis Comments US ENDOSCOPIC IP Routine 06/20/2019 10:30 AM CDT Carcinoid tumor of stomach SURGICAL PATHOLOGY Routine 06/20/2019 9:58 AM CDT Carcinoid tumor of stomach ENDO ADD ON ESOPHAGOGASTRODUODENOSCOPY BIOPSY 06/20/2019 9:46 AM CDT Carcinoid tumor of stomach EUS 06/20/2019 9:42 AM CDT documented in this encounter Results * Surgical pathology (06/20/2019 9:58 AM CDT) Tissue (Gastric/Stomach biopsy) 06/20/2019 9:58 AM CDT Tissue (Gastric/Stomach biopsy) 06/20/2019 9:59 AM CDT Tissue (Gastric/Stomach biopsy) 06/20/2019 10:00 AM CDT Tissue (Gastric/Stomach biopsy) 06/20/2019 10:00 AM CDT Narrative PATHOLOGY BJ - 06/23/2019 4:39 PM CDT EPIC results best viewed via link to PDF [facility] [place] [address] SURGICAL PATHOLOGY REPORT FINAL Patient Name: ?? JUANJO GIBSON Gender: ??F : ??1965 (Age: 53) Address: ??[address] [place] [id number] Hospital #: ??[id number] Taken:06/20/2019 Received:06/20/2019 Reported: 06/23/2019 Patient Type: [facility] SDS ?? Service: Gastro Location: [facility] Physician(s): ??Riley Dailey Diagnosis: A. ??Stomach, nodule, biopsy ? - Hyperplastic polyp ? B. ??Stomach, antrum, biopsy ? - Antral mucosa with focally active chronic gastritis - No Helicobacter pylori organisms (immunostain) identified ? C. ??Stomach, body, biopsy ? - Antralized mucosa with inactive chronic gastritis, pancreatic metaplasia, intestinal metaplasia, and linear/nodular ECL cell hyperplasia in keeping with autoimmune metaplastic atrophic gastritis (see comment) ? D. ??Stomach, cardia, biopsy ? - Cardio-oxyntic mucosa inactive chronic gastritis, intestinal metaplasia, and linear/nodular ECL cell hyperplasia in keeping with autoimmune metaplastic atrophic gastritis kxb/06/21/2019 13:10 By this signature, I attest that the above diagnosis is based upon my personal examination of the slides(and/or other material indicated in the diagnosis). Shari Beth MD Report Electronically Reviewed and Signed Out By ??Shari Beth MD 06/23/2019 16:39:34 Microscopic Description and Comment: Gastrin is negative in the body and cardia biopsies. Chromogranin highlights extensive linear and nodular ECL cell hyperplasia. Patients with autoimmune metaplastic atrophic gastritis (AMAG) are at risk for iron deficiency anemia (the high gastric pH impedes iron absorption), pernicious anemia, and various gastric polyps and neoplasms. Correlation with anti-intrinsic factor/anti parietal cell antibodies and serum vitamin B12 as well as gastrin levels may be helpful. Microscopic examination substantiates the above cited diagnosis. History: The patient is a 53-year-old woman with a carcinoid tumor of the stomach. ??Procedure: Ultrasound endoscopy. Specimen(s) Received: A: Gastric nodule B: Antrum C: Body of stomach/proximal D: Cardia Gross Description: The specimen is received in four formalin filled containers each labeled with the patient's name. ??The first container is also labeled gastric nodule. ??It holds a single irregular mitchell-pink soft tissue fragment measuring 0.9 x 0.5 x 0.1 cm. ??Labeled A1. Jar 0. The second container is additionally labeled antrum. ??It holds two irregular mitchell-pink soft tissue fragments measuring 1.0 x 0.3 x 0.1 cm in aggregate. ??Labeled B1. ??Jar 0. The third container is additionally labeled body of stomach proximal. ??It holds multiple irregular mitchell pink soft tissue fragments measuring 1.2 x 0.5 x 0.1 cm in aggregate. ??Stained with hematoxylin. ??Labeled C1. ??Jar 0. The fourth container is additionally labeled cardia. ??It holds multiple irregular pale mitchell soft tissue fragment measuring 1.1 x 0.2 x 0.1 cm in aggregate. ??Stained with hematoxylin. ??Labeled D1. ??Jar 0. [facility]/06/20/2019 11:54 Pam Chaudhry, BS, CT (ASCP By this signature, I attest that the above diagnosis is based upon my personal examination of the slides(and/or other material). The Gastrin test was performed at [facility], [address] [place] [address], [place] [address]. The performance characteristics of some immunohistochemical stains, fluorescence in-situ hybridization tests and immunophenotyping by flow cytometry cited in this report (if any) were determined by the Surgical Pathology Department at [facility] as part of an ongoing quality assurance practice manager program and in compliance with federally mandated regulations drawn from the Clinical Laboratory Improvement Act of 1988 (CLIA '88). ??Some of these tests rely on the use of analyte specific reagents and are subject to specific labeling requirements by the US Food and Drug Administration. ??Such diagnostic tests may only be performed in a facility that is certified by the Department of Health and Human Services as a high complexity laboratory under CLIA '88. ??The FDA has determined that such clearance or approval is not necessary. ??This test is used for clinical purposes. ??It should not be regarded as investigational or for research. ??Nevertheless, federal rules concerning the medical use of analyte specific reagents require that the following disclaimer be attached to the report: This test was developed and its performance characteristics determined by the Surgical Pathology Department of [facility]. ??It has not been cleared or approved by the U. S. Food and Drug Administration. IMAGES AND SCANNED DOCUMENTS, IF INCLUDED, ONLY VIEWABLE IN PDF VERSION OF REPORT Marciano Garcia MD LAB PATHOLOGY [facility] Final Result PATHOLOGY [facility] 3rd Floor [place], [place] [phone] * EUS (06/20/2019 9:42 AM CDT) Anatomical Region Laterality Modality Other Narrative Procedure Note Marciano Garcia MD - 06/20/2019 9:42 AM CDT GI ENDOSCOPY [facility] Patient Name: Juanjo Gibson Procedure Date: 06/20/2019 9:42 AM Date of : 1965 Admit Type: Outpatient Age: 53 Gender: Female Attending MD: Marciano Garcia M.D. Room: [facility] ENDOSCOPY ROOM 2 Note Status: Finalized Procedure: Upper EUS Indications: Gastric carcinoid. Post endoscopic resection. Preoperative assessment Referring MD: Gato Abrams M.D., Emiliano Santos Providers: Marciano Garcia M.D., Vlad Marie M.D. Medicines: Monitored Anesthesia Care Complications: No immediate complications. Estimated Blood Loss: Estimated blood loss: none. Procedure: Pre-Anesthesia Assessment: - The risks and benefits of the procedure and the sedation options and risks were discussed with the patient. All questions were answered and informed consent was obtained. - The anesthesia plan was to use monitoredanesthesia care (MAC). - Immediately prior to administration ofmedications, the patient was re-assessed for adequacy to receive sedatives. The risks, benefits and alternatives were discussedand informed consent was obtained.The Olympus radial endosonoscope [id number] was introduced throughthe mouth, and advanced to the second part of duodenumThe GIF [id number] endoscope was introduced throughthe mouth, and advanced to the second part of duodenumThe upper EUS was accomplished without difficulty. The patient tolerated the procedure well. Findings: Endoscopic Finding : The esophagus was endoscopically normal. A single 6 mm submucosal papule (nodule) with no stigmata of recent bleeding was found in the gastric antrum. Biopsies were taken with a cold forceps for histology. Patchy erythematous mucosa was found in the gastric antrum. Biopsies were taken with a cold forceps for histology. There was a scar on the lesser curve of the antrum. The body and fundus appeared normal. Biopsied and placed in a separate jar. A erosions were found in the cardia. There was oozing with scope contact. Biopsies were taken with a cold forceps for histology. The examined duodenum was endoscopically normal. Endosonographic Finding : Endosonographic images of the stomach were unremarkable. Nopathologic lymphadenopathy, no masses and no wall thickening were identified. There was no sign of significant endosonographic abnormality in the pancreatic head, genu of the pancreas, pancreatic body, uncinateprocess of the pancreas and main pancreatic duct. There was no sign of significant endosonographic abnormality in the common bile duct. The maximum diameter of the duct was 1 mm. There was no sign of significant endosonographic abnormality in the visualized portion of the liver. Impression: - Normal esophagus. - A single submucosal papule (nodule) found in the stomach. Biopsied. - Erythematous mucosa in the antrum. Biopsied. - A few erosions in the stomach. Biopsied. - Normal examined duodenum. - Endosonographic images of the stomach were unremarkable. Recommendation: - Return to referring physician. - In the unusual situation that you developabdominal pain, bleeding or other significant problems in the days following this procedure please call my officeat [phone] and speak to my nurse. After hours and evenings please call [phone] and speak to theGI fellow promotions producer. Please tell the fellow that did your procedure and that you were instructed tohave the fellow call me or the physician covering for meto discuss the management of your condition. If youhave an urgent problem, please go to the nearestemergency room and have the ER doctor call my office duringthe day or the GI fellow after hours and weekends to arrange admission or transfer to our facility.Please bring this report with you if you go to theemergency room. - Call my nurses in the GI office at [phone] ([phone]) for your final pathology results in 7 days. Attending Participation: I was present and participated during the entire procedure, including non-lind portions. Electronically signed by Marciano Garcia MD Marciano Garcia M.D. 06/20/2019 11:15:42 AM . Number of Addenda: 0 Note Initiated On: 06/20/2019 9:42 AM Recognized by the [place] [employer] G[employer]intestinal End[employer] for promoting quality in endoscopy Marciano Garcia MD ENDOSCOPY PROCEDUR ES Final Result documented in this encounter Visit Diagnoses Diagnosis Carcinoid tumor of stomach- Primary Benign carcinoid tumor of the stomach Carcinoid tumor of stomach Benign carcinoid tumor of the stomach documented in this encounter Admitting Diagnoses Diagnosis Carcinoid tumor of stomach Benign carcinoid tumor of the stomach documented in this encounter Administered Medications Inactive Administered Medications - up to 3 most recent administrations Medication Order MAR Action Action Date Dose Rate Site sodium chloride 0.9% flush 0.5-20 mL 0.5-20 mL, intra-catheter, As needed, line care, Starting on 06/20/19 at 0902, Pre-Procedure (GI), Flush volume based on line type and size. Flush before and after each use. , Indications: FlushingIndications:Flushing sodium chloride 0.9% infusion 30 mL/hr, intravenous, Continuous, Starting on 06/20/19 at 0945 New Bag 06/20/2019 9:32 AM CDT 50 mL/hr documented in this encounter Active and Recently Administered Medications Times are shown in CDT. Continuous Medication Order 06/18/2019 06/19/2019 06/20/2019 sodium chloride 0.9% infusion 30 mL/hr, intravenous, Continuous, Starting on 06/20/19 at 0945 0932 (New Bag - Prov ider: Allison Quintanilla CRNA) PRN Medication Order 06/18/2019 06/19/2019 06/20/2019 sodium chloride 0.9% flush 0.5-20 mL 0.5-20 mL, intra-catheter, As needed, line care, Starting on 06/20/19 at 0902, Pre-Procedure (GI), Flush volume based on line type and size. Flush before and after each use. , Indications: Flushing documented in this encounter Orders Medications Ordered That Anthony ht Not Have Been Administered Count Last Ordered Date First Ordered Date sodium chloride 0.9% flush 0.5-20 mL 1 12/2018 sodium chloride 0.9% infusion 1 06/20/2019 documented in this encounter Care Teams Vp Of Product Relationship Specialty Start Date End Date LizBarbra benavides [employer] [place] PCP - General Physician Fish Bait Picker 01/22/19 12/05/19 Luann Lawrence NP Nurse Practitioner Nurse Practitioner 01/06/19 Adarsh Tuttle MD [address] [facility] [address] [place] [address] Consulting Physician Gastroenterology 02/22/19 Sebastien Martinez DO [facility] [id number] Medical Oncologist/Business Leader Hematology and Oncology 02/22/19 Guru Winters DO [facility] [id number] Consulting Physician Gastroenterology 02/22/19 documented as of this encounter
--- OUTSIDE RECORDS SUMMARY | 2024-10-04 03:06 | XMS_ITS | Encounter Summary ---
Author Organization [facility] Address [address] [place] [address] Phone Care Team Providers Care Chemist Instrumentation Name Role Phone Luann Lawrence ANUP Unavailable [phone] Barbra Goddard Primary Care Pr ovider Adarsh Tuttle MD Unavailable [phone] Sebastien Martinez DO Unavailable [phone] Guru Winters DO Unavailable Encounter Details Date Type Department Care Team (Late st Contact Info) Description 06/13/2019 Telephone [facility] Gastroenterology [address] [facility] [address] 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 documented in this encounter Plan of Treatment Not on file documented as of this encounter Visit Diagnoses Not on filedocumented in this encounter Care Teams Chemist Instrumentation Relationship Specialty Start Date End Date Barbra Goddard PA PCP - General Physician Gun Perforator Loader 01/22/19 12/05/19 Luann Lawrence NP Nurse Practitioner Nurse Practitioner 01/06/19 Adarsh Tuttle MD [address] [address] Consulting Physician Gastroenterology 02/22/19 Sebastien Martinez DO [address] [place] [address] Medical Oncologist/Beam Warper Hematology and Oncology 02/22/19 Guru Winters DO [address] [place] [address] Consulting Physician Gastroenterology 02/22/19 documented as of this encounter
--- OUTSIDE RECORDS SUMMARY | 2024-10-04 03:06 | XMS_ITS | Encounter Summary ---
Author Organization [facility] Address [address] [place] [address] Care Team Providers Care Tie Maker Name Role Phone Luann Lawrence NP Unavailable Barbra Goddard Primary Care Pr ovider Adarsh Tuttle MD Unavailable [phone] Sebastien Martinez DO Unavailable [phone] Guru Winters DO Unavailable [phone] Encounter Details Date Type Department Care Team (Latest Contact Info) Description 06/20/2019 8:31 AM CDT - 06/20/2019 11:34 AM CDT Hospital Encounter [facility] [address] [facility] [address] [place] [address] Marciano Garcia MD [address] [facility] [address] [place] [address] Carcinoid tumor of stomach Discharge Disposition: Discharge to home [...] on file 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 Gender Identity Female 06/07/2020 8:39 AM CDT Sexual Orientation Not on file 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 Not on file Not on mikie e documented as of this encounter Last Filed Vital Signs Vital Sign Reading Time Taken Comments Blood Pressure 103/59 06/20/2019 11:00 AM CDT Pulse 54 06/20/2019 11:00 AM CDT Temperature 36.2 ??C (97.2 ??F) 06/20/2019 10:35 AM C DT Respiratory Rate 17 06/20/2019 11:00 AM CDT Oxygen Saturation 100% 06/20/2019 11:00 AM CDT Inhaled Oxygen Concentration - - Weight 71.7 kg (158 lb) 06/20/2019 9:05 AM CDT Height 162.6 cm (5' 4 ) 06/20/2019 9:05 AM CDT Body Mass Index 27.12 06/20/2019 9:05 AM CDT documented in this encounter Discharge Diagnoses Diagnosis Encounter for other preprocedural examination - ENCOUNTER FOR OTHER PREPROCEDURAL EXAMINATION Polyp of stomach and duodenum - POLYP OF STOMACH AND DUODENUM Major depressive disorder, single episode - MAJOR DEPRESSIVE DISORDER, SINGLE EPISODE, UNSPECIFIED Major depressive disorder, single episode, unspecified Hyperlipidemia - HYPERLIPIDEMIA, UNSPECIFIED Other and unspecified hyperlipidemia Essential (primary) hypertension - ESSENTIAL (PRIMARY) HYPERTENSION Unspecified essential hypertension Rheumatoid arthritis (HCC) - RHEUMATOID ARTHRITIS, UNSPECIFIED Personal history of nicotine dependence - PERSONAL HISTORY OF NICOTINE DEPENDENCE Other fdc (current) drug therapy - OTHER QA TESTER (CURRENT) DRUG THERAPY Family history of ischemic heart disease and other diseases of the circulatory system - FAMILY HISTORY OF ISCHEMIC HEART DISEASE AND OTHER DISEASES OF THE CIRCULATORY SYSTEM documented in this encounter Medications at Time of Discharge cholecalciferol (VITAMIN D-3) 1,000 unit capsuleIndicatio ns:Vitamin D Deficiency Take 2 capsules (2,000 Units total) by mouth motor boss before breakfast buPROPion XL (WELLBUTRIN XL) 150 mg 24 hr tabletIndication s:Anxiety with Depression Take 150 mg by mouth every morning 03/12/2019 0 escitalopram (LEXAPRO) 10 mg tabletIndication s:Anxiety with Depression Take 10 mg by mouth every morning 0 hydroxychloroqui ne (PLAQUENIL) 200 mg tabletIndication s:Arthritis Take 1 tablet (200 mg total) by mouth motor boss before breakfast 01/30/2019 3 losartan-hydroCH LOROthiazide (HYZAAR) [...] Attending MD: Marciano Garcia M.D. Room: [facility] ENDOSCOPY ROOM 2 Note Status: Finalized Procedure: Upper EUS Indications: Gastric carcinoid. Post endoscopic resection. Preoperative assessment Referring MD: Gato Abrams M.D., Pastora SantosAGregor Providers: Marciano Garcia M.D., Vlad Marie M.D. [...] informed consent was obtained.The Olympus radial endosonoscope [id number] was introduced through the mouth, and advanced to the second part of duodenum The GIF [id number] endoscope was introduced through the mouth, and [...] this procedure please call my office at [phone] and speak to my nurse. After hours and evenings please call [phone] and speak to the GI fellow fermentation manager. Please tell the fellow that Dr. Garcia [...] my nurses in the GI office at [phone] ([phone]) for your final pathology results in 7 days. Attending Participation: I was present and participated during the entire procedure, including non-lind portions. Electronically signed by Marciano Garcia MD Maricano Garcia M.D. 06/20/2019 11:15:42 AM . Number of Addenda: 0 Note Initiated On: 06/20/2019 9:42 AM Recognized by the [place] Society for G[employer]intestinal Endoscopy for promoting quality [...] biopsy) 06/20/2019 10:00 AM CDT Narrative PATHOLOGY [facility] - 06/23/2019 4:39 PM CDT EPIC results best viewed via link to PDF [facility] [place] [address] SURGICAL PATHOLOGY REPORT FINAL Patient Name: ?? JUANJO GIBSON Gender: ??F : ??1965 (Age: 53) Address: ??[address] [place] [address], [place], [place] ??[address] Hospital #: ??[id number] Taken:06/20/2019 Received:06/20/2019 Reported: 06/23/2019 Patient Type: [facility] ?? Service: Gastro Location: [facility] Physician(s): ??Riley Dailey Diagnosis: A. ??Stomach, [...] ??Stained with hematoxylin. ??Labeled D1. ??Jar 0. cnew/06/20/2019 11:54 Pam Chaudhry, [place], CT (ASCP By this signature, I attest that the above diagnosis is based upon my personal examination of the slides(and/or other material). The Gastrin test was performed at [facility], [address] [place] [id number]. The performance characteristics of some immunohistochemical stains, fluorescence in-situ hybridization tests and immunophenotyping by flow cytometry cited in this report (if any) were determined by the Surgical Pathology Department at [facility] as part of an ongoing quality improvement coordinator program and in compliance with federally mandated [...] determined by the Surgical Pathology Department of [facility]. ??It has not been cleared or approved by the U. S. Food and Drug Administration. IMAGES AND SCANNED DOCUMENTS, IF INCLUDED, ONLY VIEWABLE IN PDF VERSION OF REPORT Marciano Garcia MD LAB PATHOLOGY [facility] Final Result PATHOLOGY [facility] 3rd Floor [place], [place] [phone] * EUS (06/20/2019 9:42 AM CDT) Anatomical Region Laterality Modality Other Narrative Procedure Note Marciano Garcia MD - 06/20/2019 9:42 AM CDT GI ENDOSCOPY [facility] Patient Name: Juanjo Gibson Procedure Date: 06/20/2019 9:42 AM Date of : 1965 Admit Type: Outpatient Age: 53 Gender: Female Attending MD: Marcianosamuel Garcia M.D. Room: [facility] ENDOSCOPY ROOM 2 Note Status: Finalized [...] informed consent was obtained.The Olympus radial endosonoscope [id number] was introduced throughthe mouth, and advanced to the second part of duodenumThe GIF [id number] endoscope was introduced throughthe mouth, and advanced [...] following this procedure please call my officeat [phone] and speak to my nurse. After hours and evenings please call [phone] and speak to theGI fellow fermentation manager. Please tell the fellow that did your [...] [facility] - Call my nurses in the GI office at [phone] ([phone]) for your final pathology results in 7 days. Attending Participation: I was present and participated during the entire procedure, including non-lind portions. Electronically signed by Marciano Garcia MD Marciano Garcia M.D. 06/20/2019 11:15:42 AM . Number of Addenda: 0 Note Initiated On: 06/20/2019 9:42 AM Recognized by the [employer] Society for Gastrointestinal Endoscopy for promoting quality in endoscopy Marciano Garcia MD ENDOSCOPY PROCEDUR ES Final Result documented in this encounter Visit Diagnoses Diagnosis Carcinoid tumor of stomach- Primary Benign carcinoid tumor of the stomach documented [...] 0932 (New Bag - Prov ider: Allison Quintanilla, [facility]) PRN Medication Order 06/18/2019 06/19/2019 06/20/2019 sodium [...] 06/20/2019 documented in this encounter Care Teams Tie Maker Relationship Specialty Start Date End Date Barbra Goddard PA PCP - General Physician Wool Scourer 01/22/19 12/05/19 Luann Lawrence NP Nurse Practitioner Nurse Practitioner 01/06/19 Adarsh Tuttle MD [address] [facility] [address] [place] [address] Consulting Physician Gastroenterology 02/22/19 Sebastien Martinez DO [address] [place] [id number] Medical Oncologist/Ste[place]le Jack Hematology and Oncology 02/22/19 Guru Winters DO [address] [place] [id number] Consulting Physician Gastroenterology 02/22/19 documented as of this encounter
--- OUTSIDE RECORDS SUMMARY | 2024-10-04 03:06 | XMS_ITS | Encounter Summary ---
Author Organization [facility] Facility Care Team Providers Care Marketing Production Specialist Name Role Phone Luann Lawrence EXPENDITURE REQUISITION CLERK Unavailable [phone] Barbra Goddard Primary Care Pr ovider Adarsh Tuttle MD Unavailable [phone] Sebastien Martinez DO Unavailable [phone] Guru Winters DO Unavailable [phone] Encounter Details Date Type Department Care Team (Latest Contact Info) Description 06/02/2019 Travel Social History Tobacco Use Types Packs/Day Years Used Date Smoking Tobacco: Former Cigarettes 1 2 Smokeless Tobacco: Never Alcohol Use Standard Drinks/Week Comments Yes 6 (1 standard drink = 0.6 oz pur e alcohol) Comments Unknown Sex and Gender Information Value Date Recorded Sex Assigned at Not on file 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 Gender Identity Female 06/07/2020 8:39 AM CDT Sexual Orientation Not on file 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 Not on file Not on mikei e documented as of this encounter Plan of Treatment Not on file documented as of this encounter Visit Diagnoses Not on filedocumented in this encounter Care Teams Marketing Production Specialist Relationship Specialty Start Date End Date Barbra Goddard PA PCP - General Physician Oil Burner Technician 01/22/19 12/05/19 Luann Lawrence NP Nurse Practitioner Nurse Practitioner 01/06/19 Adarsh Tuttle MD [address] [facility] [address] [place] [address] Consulting Physician Gastroenterology 02/22/19 Sebastien Martinez DO [address] [place] [address] Medical Oncologist/Customer Support Representative Hematology and Oncology 02/22/19 Guru Winters DO [address] [place] [address] Consulting Physician Gastroenterology 02/22/19 documented as of this encounter
--- OUTSIDE RECORDS SUMMARY | 2024-10-04 03:06 | XMS_ITS | Encounter Summary ---
Author Organization [facility] Address [address] [place] [address] Phone Care Team Providers Care Pediatric Psychiatrist Name Role Phone MelindaLuann Aditya HEBERT Unavailable [phone] Barbra Goddard Primary Care Pr ovider Adarsh Tuttle MD Unavailable [phone] Vick Li DO Unavailable [phone] Guru Winters DO Unavailable [phone] Reason for Referral * Diagnostic Imaging (Routine) - Closed Specialty Diagnoses / Procedures Referred By Clemencia mendez Referred To Contact Radiology Diagnoses Malignant carcinoid tumor of stomach (HCC) Procedures MRI Abdomen Pancreas W WO Contrast MRI Abdomen W WO Contrast Vick Li DO Phone: tel: fax: [address] [address] Referral ID Status Reason Start Date Expiration Date Visits Re quested Visits Authorized [id number] Closed 03/03/2019 09/11/2020 1 1 Reason for Visit * Reason Comments Follow-up * Consultation (Routine) - Closed Specialty Diagnoses / Procedures Referred By Clemencia mendez Referred To Contact Oncology Diagnoses Neuroendocrine cancer (HCC) Malignant carcinoid tumor of stomach (HCC) Guru Winters DO Phone: tel: fax: [facility] Oncology [address] [place] [address] [place] [address] Phone: tel: fax: Referral ID Status Reason Start Date Expiration Date V isits Requested Visits Authorized [id number] Closed Specialty Services Required 01/04/2019 10/17/2019 99 99 Encounter Details Date Type Department Care Team (Late st Contact Info) Description 03/03/2019 8:45 AM CDT Office Visit [facility] Oncology [address] [place] [address] Vick Li DO [address] [facility] [address] [place], [place] [id number] 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) Social History Tobacco Use Types Packs/Day Years Used Date Smoking Tobacco: Former Cigarettes 1 2 Smokeless Tobacco: Never Alcohol Use Standard Drinks/Week Comments Yes 6 (1 standard drink = 0.6 oz pur e alcohol) Comments Unknown Sex and Gender Information Value Date Recorded Sex Assigned at Not on file 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 Gender Identity Female 06/07/2020 8:39 AM CDT Sexual Orientation Not on file 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 female. Primary Care Provider: NBA Ward Assessment/Plan Stage I carcinoid tumors of the stomach. 1. I will see her back here in 3 months with repeat serum tumor marker chromogranin A along with MRI of the abdomen. 2. No clinical signs of hereditary cancer syndrome based on lack of family members having cancer and no other diagnostic testing suggesting hereditary cancer. Therefore at this point will not pursue any DNA testing. 3. She will need another repeat EGD in 6 months and I will refer her to Dr. Winters for that procedure. Falsely positive PET gallium Donatate scan on the pancreatic lesion. 1. I have spoken with Dr. Abrams who saw her in consultation last week and did not recommend any surgery since the MRI of the abdomen shows no evidence of any abnormality of the pancreas. 2. He tells me that this is probably a false positive due to normal islet cells in the pancreas up taking the radiotracer. 3. Patient is quite relieved with this information. 4. However, I will continue monitor the pancreas and upper abdomen by having her undergo an MRI of the abdomen with and without contrast for the pancreatic lesion in 3 months. She will see me after that. 5. Further follow-up after that will be another 3 months scan and blood work and then once a year. Patient Active Problem List Diagnosis ??? Malignant carcinoid tumor of stomach (CMS/HCC) Diagnoses and all orders for this visit: Malignant carcinoid tumor of stomach (CMS/HCC) (Primary) - Clinic Appointment Request Follow up; VICK LI; Clinic Appointment Location: [facility] - Chromogranin A; Future - Clinic Appointment Request Follow up; VICK LI MD; Clinic Appointment Location: [facility]; Future - MRI Abdomen W WO Contrast; Future - CBC with auto differential; Future - Comprehensive metabolic panel; Future Subjective Interval History: 1. Stage I carcinoid tumor of the stomach. 2. Her primary care physician, Dr. Huizar refer the patient to Dr. Winters for GI evaluation regarding anemia and to undergo routine surveillance colonoscopy. 3. Dr. Winters performed these procedures on December 26. He noted 3 distinct polyps within the stomach and performed polypectomy on each of these lesions. All these polyps were removed successfully. Three gastric follow-up showed well- differentiated neuroendocrine tumor with 1 of them having minor invasion into the submucosa. 4. Subsequently, surgical pathology report showed that the biopsies of these polyps were consistentwith a well-differentiated neuroendocrine tumor consistent with carcinoid tumor. 5. She was then referred to me for medical oncology intervention and further recommendations. 6. She was then referred to Dr. Tuttle at [facility] for EUS evaluation. Thiswas performed on January 13. 7. EUS procedure note did not identify any regional adenopathy or residual malignant tumors of the submucosa, mucosa or stomach wall. He noted 2 residual small papules and these were banded and sloughed off. 8. Surgical pathology report from the biopsies of the stomach showed no residual evidence of carcinoid tumor or neuroendocrine carcinoma. There were rare atypical cells noted but did not have any positive staining for neuroendocrine carcinoma. 9. She denies any symptoms of carcinoid syndrome. 10. Chromogranin A level is elevated 489. Fasting serotonin levels less than 10. 11. Twenty-four urine collection for 5-H IAA is normal. 12. PET CT scan with gallium donatate showed an abnormal focus of hypermetabolic activity involvingthe head of the pancreas measuring 1.5 cm. No other sites of suspicious hypermetabolic areas noted. 13. Due to concerns of a possible pancreatic neuroendocrine tumor, I referred the patient to Dr. Gato Abrams in Surgical Oncology Department at [facility]. 14. Patient also underwent MRI of the pancreas at [facility] a week before she saw Dr. Abrams. 15. Since the MRI of the pancreas showed no evidence of any anatomical abnormalities and it was completely normal, Dr. Abrams concluded that the PET scan was falsely positive. Therefore patient was sent back to see me for continued follow-up care. 16. Patient is doing well without any symptoms. Interval Notes: I have reviewed: allergies, [...] Exam: Vital Signs for this encounter: BSA: 1.77 meters squared BP 123/75 (BP Location: Left arm) Pulse 55 Ht 162.6 cm (5' 4 ) Wt 69.4 kg (153 lb) SpO2 98% BMI 26.26 kg/m?? Physical Exam Constitutional: She is oriented to person, place, and time. She appears well- developed and well-nourished. HENT: Head: Normocephalic and atraumatic. Right Ear: External ear normal. Left Ear: External ear normal. Nose: Nose normal. Mouth/Throat: Oropharynx is clear and moist. Eyes: Pupils are equal, round, and reactive to light. Conjunctivae and EOM are normal. Neck: Normal range of motion. Neck supple. Cardiovascular: Normal rate and regular rhythm. Pulmonary/Chest: Effort normal. Abdominal: Soft. Bowel sounds are normal. Musculoskeletal: Normal range of motion. Neurological: She is alert and oriented to person, place, and time. Skin: Skin is warm and dry. Psychiatric: She has a normal mood and affect. Her behavior is normal. Performance Status: Asymptomatic Results: Creatinine POC Date Value Ref Range Status 02/24/2019 0.8 0.6 - 1.1 mg/dL Final 1. VIP level is normal. 2. Fasting gastrin level slightly elevated at 379. 3. Pancreatic polypeptide is normal. 4. MRI of the pancreas showed no evidence of any abnormalities of the pancreas. It is completely normal. documented in this encounter Plan of Treatment Not on file documented as of this encounter Results * MRI Abdomen Pancreas W WO Contrast (05/25/2019 10:24 AM CDT) Anatomical Region Laterality Modality Body N/A Magnetic Resonan ce 05/25/2019 1:42 PM CDT Impressions 05/25/2019 4:20 PM CDT 1. ??There is no focal pancreatic lesion. 2. ??Small focus of restricted diffusion along the greater curvature of the stomach, without correlate on contrast-enhanced imaging. This can be correlated endoscopically if indicated. Dictated by: Vinay Vela M.D. The radiology attending physician has personally reviewed this study, and had reviewed and/or edited this written report and agrees with it. Electronically signed by: Ren Miner M.D. Narrative 05/25/2019 4:20 PM CDT EXAMINATION: 1. MAGNETIC RESONANCE IMAGING OF THE ABDOMEN WITH AND WITHOUT CONTRAST 2. THREE DIMENSIONAL RECONSTRUCTION OF THE BILIARY TREE AND PANCREATIC DUCT HISTORY: Malignant carcinoid tumor of the stomach. Previously endoscopically resected. The outside report of Dotatate PET/CT with uptake at the pancreatic head. Prior negative MRI. Follow-up evaluation. TECHNIQUE: Magnetic resonance imaging of the abdomen was performed prior to and following the uneventful administration of intravenous Gadolinium contrast. The raw data was processed on the scanner by the technologist for 3 dimensional reconstructions of the intrahepatic ducts, extrahepatics ducts, and pancreatic duct. Protocol: Liver MRCP Creatinine: 0.8 mg/dL Estimated GFR: Greater than 60 ml/min/1.73 meters squared Contrast: Dotarem 12 mL COMPARISON: MR abdomen 02/24/2019 FINDINGS: Liver: Normal size and contour. No abnormal fat or iron deposition. - Bile ducts: Nondilated intrahepatic ducts. Stable mild prominence of the extrahepatic biliary system with common hepatic and common bile ducts measuring up to 1 cm, tapering at the ampulla. - Focal liver lesions: No solid lesions. Stable tiny left lobe cyst. - Vasculature: Conventional arterial anatomy. Patent portal and hepatic venous systems. Gallbladder: Normal. Pancreas: No solid mass lesion. Normal bulk, inherent T1 hyperintensity, and enhancement pattern of the parenchyma. No ductal dilation. 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 Spleen: Normal. Adrenals: Normal. Kidneys: Tiny left renal cyst. No hydronephrosis. No solid mass lesion. Other Findings: There is a focus of restricted diffusion along the greater curvature of stomach (series 3 image 60), which does not have a correlate on contrast enhanced imaging. No lymphadenopathy. No concerning focal osseous lesion. Unremarkable included small and large bowel. Procedure Note Ren Miner MD - 05/25/2019 EXAMINATION: 1. MAGNETIC RESONANCE IMAGING OF THE ABDOMEN WITH AND WITHOUT CONTRAST 2. THREE DIMENSIONAL RECONSTRUCTION OF THE BILIARY TREE AND PANCREATIC DUCT HISTORY: Malignant carcinoid tumor of the stomach. Previously endoscopically resected. The outside report of Dotatate PET/CT with uptake at the pancreatic head. Prior negative MRI. Follow-up evaluation. TECHNIQUE: Magnetic resonance imaging of the abdomen was performed prior to and following the uneventful administration of intravenous Gadolinium contrast. The raw data was processed on the scanner by the technologist for 3 dimensional reconstructions of the intrahepatic ducts, extrahepatics ducts, and pancreatic duct. Protocol: Liver MRCP Creatinine: 0.8 mg/dL Estimated GFR: Greater than 60 ml/min/1.73 meters squared Contrast: Dotarem 12 mL COMPARISON: MR abdomen 02/24/2019 FINDINGS: Liver: Normal size and contour. No abnormal fat or iron deposition. - Bile ducts: Nondilated intrahepatic ducts. Stable mild prominence of the extrahepatic biliary system with common hepatic and common bile ducts measuring up to 1 cm, tapering at the ampulla. - Focal liver lesions: No solid lesions. Stable tiny left lobe cyst. - Vasculature: Conventional arterial anatomy. Patent portal and hepatic venous systems. Gallbladder: Normal. Pancreas: No solid mass lesion. Normal bulk, inherent T1 hyperintensity, and enhancement pattern of the parenchyma. No ductal dilation. 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 Spleen: Normal. Adrenals: Normal. Kidneys: Tiny left renal cyst. No hydronephrosis. No solid mass lesion. Other Findings: There is a focus of restricted diffusion along the greater curvature of stomach (series 3 image 60), which does not have a correlate on contrast enhanced imaging. No lymphadenopathy. No concerning focal osseous lesion. Unremarkable included small and large bowel. IMPRESSION: 1. There is no focal pancreatic lesion. 2. Small focus of restricted diffusion along the greater curvature of the stomach, without correlate on contrast-enhanced imaging. This can be correlated endoscopically if indicated. Dictated by: Vinay Vela M.D. The radiology attending physician has personally reviewed this study, and had reviewed and/or edited this written report and agrees with it. Electronically signed by: Ren Miner M.D. Vick Li DO [facility] MRI PROCEDURES Final Res ult documented in this encounter Visit Diagnoses Diagnosis Malignant carcinoid tumor of stomach (HCC)- Primary Malignant carcinoid tumor of the stomach Malignant carcinoid tumor of stomach (HCC) Malignant carcinoid tumor of the stomach documented in this encounter Orders Lab Orders Without Results Count Last Ordered D ate First Ordered Date CBC WITH AUTO DIFFERENTIAL 1 03/03/2019 CHROMOGRANIN A 1 03/03/2019 COMPREHENSIVE METABOLIC PANEL 1 03/03/2019 Appointment Requests Count Last Ordered Date Fi rst Ordered Date ONCBCN CLINIC APPOINTMENT REQUEST 2 019 03/03/2019 documented in this encounter Care Teams Pediatric Psychiatrist Relationship Specialty Start Date End Date Barbra Goddard PA PCP - General Physician Ordained Minister 01/22/19 12/05/19 Luann Lawrence NP Nurse Practitioner Nurse Practitioner 01/06/19 Adarsh Tuttle MD [address] [facility] [address] [place] [address] Consulting Physician Gastroenterology 02/22/19 Vick Li DO [address] [place] [id number] Medical Oncologist/Letter Carrier Hematology and Oncology 02/22/19 Guru Winters DO [address] [place] [address] Consulting Physician Gastroenterology 02/22/19 documented as of this encounter
--- OUTSIDE RECORDS SUMMARY | 2024-10-04 03:06 | XMS_ITS | Encounter Summary ---
Author Organization [facility] Address [address] [place] [address] Phone Care Team Providers Care Charge Coordinator Name Role Phone MelindaLuann oh Aditya ANUP Unavailable Barbra Goddard Primary Care Pr ovider Adarsh Tuttle MD Unavailable Sebastien Martinez DO Unavailable Guru Winters DO Unavailable [phone] Encounter Details Date Type Department Care Team (Late st Contact Info) Description 06/15/2019 Telephone [facility] Oncology [address] [facility] [place] [id number] Sebastien Martinez, DO [address] [facility] [address] [place] [address] Social History Tobacco Use Types Packs/Day Years Used Date Smoking Tobacco: Former Cigarettes 1 2 Smokeless Tobacco: Never Alcohol Use Standard Drinks/Week Comments Yes 6 (1 standard drink = 0.6 oz pur e alcohol) Comments Unknown Sex and Gender Information Value Date Recorded Sex Assigned at Not on file 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 Patient v/u and would like to have injections at our office for now instead of self injecting. * Telephone Encounter - Tracy Brock RN - 06/15/2019 9:33 AM CDT Called patient and left message to call office. Dr. Martinez has ordered for patient to start Vitamin B 12 1000 mcg monthly. documented in this encounter Plan of Treatment Not on file documented as of this encounter Visit Diagnoses Diagnosis Pernicious anemia- Primary documented in this encounter Orders Appointment Requests Count Last Ordered Date Fi rst Ordered Date ONCBCN INJECTION APPOINTMENT REQUEST 1 02/2019 documented in this encounter Care Teams Charge Coordinator Relationship Specialty Start Date End Date Barbra Goddard PA PCP - General Physician Program Review Director 01/22/19 12/05/19 Luann Lawrence NP Nurse Practitioner Nurse Practitioner 01/06/19 Adarsh Tuttle MD [address] [facility] [address] [place] [address] Consulting Physician Gastroenterology 02/22/19 Sebastien Martinez DO [address] [address] Medical Oncologist/Residential Program Manager Hematology and Oncology 02/22/19 Guru Winters DO [address] [address] Consulting Physician Gastroenterology 02/22/19 documented as of this encounter
--- OUTSIDE RECORDS SUMMARY | 2024-10-04 03:06 | XMS_ITS | Encounter Summary ---
Author Organization [facility] Healthcare Address [address] [place] [address] Care Team Providers Care Dobie Worker Name Role Phone Luann Lawrence NP Unavailable [phone] Barbra Goddard Primary Care Pr ovider Adarsh Tuttle MD Unavailable Sebastien Martinez DO Unavailable [phone] Guru Winters DO Unavailable [phone] Encounter Details Date Type Department Care Team (Late st Contact Info) Description 08/23/2019 11:58 AM RIP/MOULD OPERATOR Anesthesia Event [facility] Operating Room [address] [place] [address] Bam Girard MD [address] [place] [address] Anesthesia Record Procedure Summary Procedure Name Responsible Anesthesiologist Anesthesia Start Time Anesthesia Stop Time LAPAROSCOPIC DISTAL GASTRECTOMY, BILROTH II RECONSTRUCTION (Abdomen) Bam Girard MD 08/23/19 1158 08/23/19 1530 Events Date Time Event Comment 08/23/2019 1113 1157 In Room 1158 An Start 1158 An Start Data 1206 An Induction The patient was reevaluated immediately before moderate or deep sedation use and before anesthesia induction. 1210 An Intubation 1221 Anesthesia Ready 1238 Insufflation Start 1238 Proc Start 1238 Incision Start 1435 Proc Fin 1439 Out of Room 1442 An Extubation 1448 an stop data 1515 Handoff to RN I completed my handoff [...] disposition at the time of handoff: PACU 1530 An Stop Meds Name Total lidocaine 1 % PF 40 mg fentaNYL 100 mcg propofol 200 mg rocuronium 60 mg ePHEDrine 5 mg HYDROmorphone 2 mg/mL 0.6 mg ondansetron PF (ZOFRAN) 2 mg/mL injectio n 8 mg glycopyrrolate 0.4 mg neostigmine injection 1 mg/mL 2 mg cefOXitin (MEFOXITIN) 2,000 mg/20 mL in sterile water (premix) 2,000 mg 4,000 mg heparin 5,000 unit/mL injection 5,000 Un its 5,000 Units Lactated Ringer's (LR) infusion 1,000 mL * Agents Name O2% N2O O2 Air Sevoflurane Inspired Sevoflurane * Blood No blood administrations on file. Lines, Drains, and Airways Type Details Placement Removal Peripheral IV Placement Date: 08/23/19; Placement Time: 0950; Catheter Size: 18 G; Orientation: Left; Location: Wrist; Site Prep: Chlorhexidine; Technique: Anatomical landmarks; Inserted by: Jones MATTHEWS; Insertion Attempts: 1; Patient Tolerance: Tolerated well; Removal Date: 08/26/19; Removal Time: 2203 08/23/19 0950 by Jones Monroy RN 08/26/19 2203 by Faina Ashby RN ETT Placement Date: 08/23/19; Placement Time: 1210 (created via procedure documentation); Mask Ventilation: 1; Technique: Direct laryngoscopy; Type: ETT - single; Single Lumen Tube Size: 7 mm; Cuffed: Yes; Laryngoscope: Marci; Blade Size: 3; Location: Oral; Grade View: Grade IIb; Insertion Attempts: 1; Placement Verification: Auscultation, Palpation of cuff; Removal Date: 08/23/19; Removal Time: 1442 08/23/19 1210 by Bam Girard MD 08/23/19 1442 by Bam Girard MD Urethral Catheter Placement Date: 08/23/19; Placement Time: 1220; Type: Non-latex; Size: 16 Fr.; Balloon Size: 10 mL; Urine Returned: Yes; Removal Date: 08/24/19; Removal Time: 0658 08/23/19 1220 by Christoph Parker RN 08/24/19 0658 by Jeanette Jaffe RN Peripheral IV Placement Date: 08/23/19; Placement Time: 1407 (created via procedure documentation); Catheter Size: 16 G; Orientation: Right; Location: Hand; Site Prep: Alcohol; Insertion Attempts: 1; Removal Date: 05/02/20; Removal Time: 0000 08/23/19 1407 by Bam Girard MD 05/02/20 0000 by Alfredo Damon, [place] RETIRED Surgical Site 08/23/19; 1434; Abdomen; SURGICAL TROCAR ACCESS SITES X5; 09/19/24 (Retired LDA, Removed/Completed by [place] with LDA Utility); 1213 (Retired LDA, Removed/Completed by [employer] [place] with LDA Utility) 08/23/19 1434 by Christoph Parker, [place] 09/19/24 1213 by Discharge Provider, Automatic documented in this encounter Social History Tobacco Use Types Packs/Day Years Used Date Smoking Tobacco: Former Cigarettes 1 2 1 7 - 1998 Smokeless Tobacco: Never Alcohol Use Standard Drinks/Week Comments Yes 2 (1 standard drink = 0.6 oz pur e alcohol) Comments No Sex and Gender Information Value Date Recorded Sex Assigned at Not on file Legal Sex Female 2:22 AM RIP/MOULD OPERATOR Gender Identity Female 06/07/2020 8:39 AM CDT Sexual Orientation Not on file 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 Not on file Not on file Not on mikie e documented as of this encounter OR Notes * Anesthesia Postprocedure Evaluation - Olivia Beal MD PhD - 08/23/2019 4:34 PM CST Patient: Fabiola Gibson Procedure Summary Date: 08/23/19 Room / Location: [facility] OR POD 5 ROOM 227 / [facility] OR POD 5 Anesthesia Start: 1158 Anesthesia Stop: 1530 Procedures: LAPAROSCOPIC DISTAL GASTRECTOMY, BILROTH II RECONSTRUCTION (N/A Abdomen) Transversus Abdominis Plane Block [facility] [id number] (Bilateral ) Diagnosis: Gastric carcinoma (CMS/HCC) (Gastric carcinoma (CMS/HCC) [C16.9]) Surgeon: Gato Abrams MD Responsible Provider: Bam Miller MD Anesthesia Type: general ASA Status: 2 Anesthesia Type: general Last vitals BP 138/72 Pulse 70 Temp 36.5 ??C (97.7 ??F) (Temporal) Resp 10 SpO2 98% Anesthesia Post Evaluation Patient location during evaluation: PACU Patient participation: complete - patient participated Level of consciousness: fully awake Pain score: 3 Pain management: satisfactory to patient Airway patency: adequate Evidence of recall: no Anesthetic complications: no Cardiovascular status: acceptable and hemodynamically stable Respiratory status: acceptable and room air Hydration status: acceptable Pt is: normothermic Nausea/Vomiting status: none Comments: Transfer to the floor. /MOULD OPERATOR * Anesthesia Procedure Notes - Bam Girard MD - 08/23/2019 2:06 PM RIP/MOULD OPERATOR Associated Order(s): Peripheral IV Catheter Peripheral IV Catheter Patient location: OR Start time: 08/23/2019 12:26 PM Staff: Placed by: Anesthesiologist: Bam Miller MD Preprocedure prep: Prep solution: alcohol PPE: gloves PIV line: Laterality: right Site: hand Catheter size: 16 g Technique: anatomical landmarks Procedure details: good blood return Number of attempts: 1 Assessment: Events: patient tolerated procedure well with no complications /MOULD OPERATOR * Anesthesia Procedure Notes - Bam Girard MD - 08/23/2019 12:47 PM CSTAssociated Order(s): Airway Airway Patient location: OR Urgency: elective Date/time: 08/23/2019 12:10 PM Indications for airway management: anesthesia Difficult airway: no Staff: Placed by: Anesthesiologist: Bam Miller MD Emergent airway documentation: Risks and benefits discussed: yes Consent obtained: yes Consent given by: patient Airway prep: Preoxygenated: yes Patient position: sniffing and reverse Trendelenburg Mask difficulty assessment: 1 - vent by mask Spontaneous ventilation during airway: absent Sedation level during airway: GA Final airway details: Final airway type: endotracheal airway Tube type: ETT ETT size: 7.0 mm Cuffed: yes Technique used for successful ETT placement: direct laryngoscopy Devices/Methods used in placement: intubating stylet and anterior pressure/BURP Insertion site: oral Blade type: Marci Blade size: 3 Cormack-Lehane (direct): grade IIb - view of arytenoids or posterior of glottis only Cuff volume: 8 mL Cuff inflated with: air Placement verified by: auscultation and palpation of cuff Airway secured with: silk tape Number of attempts: 1no /MOULD OPERATOR * Anesthesia Preprocedure Evaluation - Bam Girard MD - 07/26/2019 11:41 AM CDT Images from the original note were not included. [facility] Pre[facility] and Planning Preoperative Evaluation Record CP[facility] Clinic at [facility] ([facility]) Date: 07/26/19 Anesthesia Evaluation Fabiola Gibson is a 54 y.o. female Procedure(s): LAPAROSCOPIC DISTAL GASTRECTOMY, BILROTH II RECONSTRUCTION DISTAL GASTRECTOMY Pre-Op Diagnosis Codes: * Gastric carcinoma (CMS/HCC) [C16.9] HISTORY HPI Fabiola Gibson is a 54 y.o. female who is being evaluated prior to undergoing LAPAROSCOPIC DISTAL GASTRECTOMY, BILROTH II RECONSTRUCTION for Gastric carcinoma . Past Medical History Neurological + Psychiatric history - anxiety and depression Pertinent negatives: seizures; CVA/stroke and TIA Cardiovascular + Hypertension (compliant with home BP meds ) Hypertension year diagnosed: 1999. Typical systolic BP - 120 Typical diastolic BP - 70 + Hyperlipidemia Pertinent negatives: CAD ; RI ; CABG ; atrial fibrillation; arrhythmia; pacemaker/ICD; DVT/PE; negative for CHF; drug-eluting stent(s); bare metal stent(s) and unknown stent(s) type Respiratory Pertinent negatives: COPD; asthma and sleep apnea (KATIA) Hepatic / Heme + History of anemia - iron deficiency Pertinent negatives: liver disease; history of thrombocytopenia and history of José positive Gastrointestinal Pertinent negatives: GERD and hiatal hernia Renal / Pertinent negatives: renal disease; dialysis and nephrolithiasis Musculoskeletal/Pain Pertinent negatives: chronic pain; osteoarthritis and headaches Endocrine / Other + Cancer history- current cancer. Cancer type: stomach Ca . + Rheumatological disease - rheumatoid arthritis. + Infectious disease (no recent UTIs ) - UTI. Pertinent negatives: diabetes mellitus; thyroid disease and obesity (BMI >30) Functional Capacity Functional capacity: 4-6 METs Comments: Denies SOB or CP with 2 flights of stairs Day of Surgery assessments + Possibility of assessed (postmenopausal ) - ruled out by patient's provided history. Review of Systems + vision loss (wears corrective lenses ) Pertinent negatives: productive cough; wheezing; SOB; recent cold/flu; fever; chest pain; palpitations; orthopnea; pedal edema; PND; previous transfusion; melena/hematochezia; easy bruising; bleedingproblems; syncope; dizziness; muscle weakness; chronic pain; numbness/tingling; hard of hearing; heartburn; nausea; dysphagia; diarrhea; dentures/partials; chipped/loose teeth; abdominal pain (deniesUTI symptoms ); diaphoresis and no unexpected weight change PAT Summary and Plans Cardiac risk classification of planned procedure: intermediate cardiac risk. Preoperative assessment status: lab tests ordered and complete pending laboratory results. Additional comments: Fabiola Gibson is a 54 y.o. female who is being evaluated prior to undergoing anintermediate cardiac risk surgery. Revised Cardiac Risk Index factors are (none) for a total RCRI of 0 out of 6. Functional capacity is 4-6 METs. Obstructive sleep apnea (KATIA) screening status is STOP-Bang=3 suggesting moderate risk for KATIA, bicarbonate value pending. The patient is at elevated risk for obstructive sleep apnea (KATIA) per STOP-BANG screening questionnaire results. Patient informed of the possibility that they have undiagnosed KATIA, which may increasetheir risk for perioperative respiratory events. Patient also informed of the possible long-term health problems associated with KATIA. Because we do not feel that preoperative KATIA testing is likely tooutweigh the downsides of delaying surgery, we have recommended that the patient talk to their primary doctor or other clinician after surgery about getting tested for KATIA. Blood bank needs for day of procedure: Type and Screen only Pending labs/tests include: CBC BMP T&S Preoperative evaluation performed by Luz Anaya NP on 07/26/19 at 11:44 AM.. Follow up note Labs reviewed and are significant for a total CO2 of 29 . With a STOP-Bang score of 3-4, this qualifies the patient as high risk for severe KATIA. KATIA order set initiated. CPAP assessment complete. Follow-up completed by: Paulina Conn NP on 07/27/19 at 11:11 AM Patient Active Problem List Diagnosis ??? Malignant carcinoid tumor of stomach (CMS/HCC) ??? Carcinoid tumor of stomach ??? Pernicious anemia ??? Gastric carcinoma (CMS/HCC) Past Medical History: Diagnosis Date ??? Anemia ??? 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 Carcinoid tumor of stomach ??? Depression ??? Hyperlipidemia ??? Hypertension ??? Rheumatoid arthritis (CMS/HCC) ??? Urinary tract infection Past Surgical History: Procedure Laterality Date ??? SECTION 1989,1991 twice ??? COLONOSCOPY 11/2018 ??? ENDOMETRIAL ABLATION 09/2005 ??? ESOPHAGOGASTRODUODENOSCOPY 2018 x4 ??? TUBAL LIGATION 02/2005 OB History None No Known Allergies Taking? Last Dose Start Date End Date Provider ALPRAZolam (NIRAVAM) 0.5 mg disintegrating tablet 2019 -- -- Historical Provider, buPROPion XL (WELLBUTRIN XL) 150 mg 24 hr tablet 07/26/2019 03/12/19 -- Historical Provider, cholecalciferol (VITAMIN D3) 1,000 unit capsule 07/26/2019 -- -- Historical Provider, cyanocobalamin (Vitamin B-12) 1,000 mcg/mL injection Past Month 07/25/19 -- Sebastien Martinez, DO Inject 1 mL (1,000 mcg total) under the skin every 30 (thirty) days Patient taking differently: Inject 1,000 mcg under the skin every 30 (thirty) days escitalopram (LEXAPRO) 10 mg tablet 07/26/2019 -- -- Historical Provider, hydroxychloroquine (PLAQUENIL) 200 mg tablet 07/26/2019 01/30/19 -- Historical Provider, insulin syringe-needle U-100 1 mL 29 gauge x 1/2 syringe 07/25/19 -- Sebastien Martinez, DO 1 Syringe every 30 (thirty) days losartan-hydroCHLOROthiazide (HYZAAR) 50-12.5 mg per tablet 07/26/2019 -- -- Historical Provider, omeprazole (PriLOSEC) 20 mg capsule 07/26/2019 -- -- Historical Provider, pravastatin (PRAVACHOL) 40 mg tablet 07/26/2019 11/15/18 -- Historical Provider, Current Outpatient Medications: ??? ALPRAZolam (NIRAVAM) 0.5 mg disintegrating tablet ??? buPROPion XL (WELLBUTRIN XL) 150 mg 24 hr tablet ??? cholecalciferol (VITAMIN D3) 1,000 unit capsule ??? cyanocobalamin (Vitamin B-12) 1,000 mcg/mL injection ??? escitalopram (LEXAPRO) 10 mg tablet ??? hydroxychloroquine (PLAQUENIL) 200 mg tablet ??? losartan-hydroCHLOROthiazide (HYZAAR) 50-12.5 mg per tablet ??? omeprazole (PriLOSEC) 20 mg capsule ??? pravastatin (PRAVACHOL) 40 mg tablet ??? insulin syringe-needle U-100 1 mL 29 gauge x 1/2 syringe Social History Tobacco Use Smoking Status Former Smoker ??? Packs/day: 1.00 ??? Years: 2.00 ??? Pack years: 2.00 ??? Start date: 1996 ??? Last attempt to quit: 1998 ??? Years since quittin.7 Smokeless Tobacco Never Used Substance and Sexual Activity Alcohol Use Yes ??? Alcohol/week: 1.2 oz ??? Types: 2 Standard drinks or equivalent per week Substance and Sexual Activity Drug Use Never Family History Problem Relation Age of Onset ??? Dementia Mother ??? Emphysema Father ??? Other (Congestive Heart Failure) Father ??? No Known Problems Sister ??? Heart attack Brother ??? Ovarian cancer Mother's Sister ??? Colon cancer Mother's Brother ??? Cancer Maternal Grandmother PAT Physical Exam Airway Exam: Mallampati: III Cervical ROM: FROM TM distance: >4 Jaw ROM: full Cardiovascular Exam: Rate: regular Rhythm: regular Pulmonary Exam: LCTA, bilat EENT Exam: trachea midline Dental Exam: Appears intact Skin Exam: Skin is warm and dry. Abdominal exam: Abdomen is soft. Bowel sounds are present. Current state: Patient's current state is cooperative and interactive. Vitals: 07/26/19 1145 07/26/19 1146 BP: 122/67 122/71 Pulse: 64 Resp: 20 SpO2: 97% PT: No results found for requested labs [...] within last 720 hours. STOP-Bang Total Score: 3 Yadira index score: 100 DOS Physical Exam Medical history, medications, and allergies reviewed. Attestation: I endorse the findings of the anesthesia pre-evaluation assessment dated: 07/26/2019. Airway Exam: Mallampati: I Cervical ROM: FROM TM distance: 3 Cardiovascular Exam: Rate: regular Rhythm: regular Pulmonary Exam: LCTA, bilat EENT Exam: trachea midline Dental Exam: Appears intact Skin Exam: Skin is warm. Current state: Patient's current state is cooperative and interactive. Anesthesia Plan ASA 2 My patient is approved for the Anesthesia Controlled Medication protocol when under care of a CINETECHNICIAN Planned anesthesia: General Team communication plan: oral ET tube Invasive Monitors Planned: Invasive monitors planned: arterial line. Induction: Induction: intravenous and RSI. Postoperative Plan: Postoperative administration opioids intended. No postoperative mechanical ventilation intended. Patient's planned disposition post procedure is Floor. No trial extubation planned. Informed Consent: Anesthesia plan and risks discussed with patient and daughter. Plan and Consent Comments: Anesthesia Plan, Risk and Complications of oral, nerve, or vascular injury, transfusion related reactions, bleeding, infections, pain, PONV, perioperative cardiac event and stroke discussed and accepted by the patient and family preset. They understood and wish to proceed. Questions answered. Consent and Attending signature: I and/or my designee have discussed the anesthesia plan, benefits, possible alternatives, parental presence at time of induction (if indicated), and clinically relevant risks that may include dental injury, unintentional awareness, and/or other complications. The patient and/or parent/legal guardian understand, and agree to proceed. All questions answered. /MOULD OPERATOR documented in this encounter Plan of Treatment Not on file documented as of this encounter Procedures Procedure Name Priority Date/Time Associated Diagnosis Comments MD AN PROCEDURE PLACEHOLDER Routine 08/23/2019 2:06 PM RIP/MOULD OPERATOR MD AN PROCEDURE PLACEHOLDER Routine 08/23/2019 12:47 PM RIP/MOULD OPERATOR MD AN ELECTIVE ENDOTRACHEAL AIRWAY Routine 08/23/2019 12:47 PM RIP/MOULD OPERATOR documented in this encounter Results * MD AN PROCEDURE PLACEHOLDER (08/23/2019 2:06 PM RIP/MOULD OPERATOR) Narrative Bam Girard MD - 08/23/2019 2:06 PM RIP/MOULD OPERATOR Bam Miller MD ? 08/23/2019 ??2:07 PM Peripheral IV Catheter Patient location: OR Start time: 08/23/2019 12:26 PM Staff: Placed by: Anesthesiologist: Bam Miller MD Preprocedure prep: Prep solution: alcohol PPE: gloves PIV line: Laterality: right Site: hand Catheter size: 16 g Technique: anatomical landmarks Procedure details: good blood return Number of attempts: 1 Assessment: Events: patient tolerated procedure well with no complications Bam Miller MD ANESTHESIA ORDERABLES Fin al Result * MD AN ELECTIVE ENDOTRACHEAL AIRWAY, MD AN PROCEDURE PLACEHOLDER (08/23/2019 12:47 PM RIP/MOULD OPERATOR) Bam Eden MD - 08/23/2019 12:47 PM RIP/MOULD OPERATOR Bam Miller MD ? 08/23/2019 12:49 PM Airway Patient location: OR Urgency: elective Date/time: 08/23/2019 12:10 PM Indications for airway management: anesthesia Difficult airway: no Staff: Placed by: Anesthesiologist: Bam Miller MD Emergent airway documentation: Risks and benefits discussed: yes Consent obtained: yes Consent given by: patient Airway prep: Preoxygenated: yes Patient position: sniffing and reverse Trendelenburg Mask difficulty assessment: 1 - vent by mask Spontaneous ventilation during airway: absent Sedation level during airway: GA Final airway details: Final airway type: endotracheal airway Tube type: ETT ETT size: 7.0 mm Cuffed: yes Technique used for successful ETT placement: direct laryngoscopy Devices/Methods used in placement: intubating stylet and anterior pressure/BURP Insertion site: oral Blade type: Marci Blade size: 3 Cormack-Lehane (direct): grade IIb - view of arytenoids or posterior of glottis only Cuff volume: 8 mL Cuff inflated with: air Placement verified by: auscultation and palpation of cuff Airway secured with: silk tape Number of attempts: 1no us Bam Miller MD ANESTHESIA ORDERABLES Fin al Result documented in this encounter Visit Diagnoses Not on filedocumented in this encounter Administered Medications Inactive Administered Medications - up to 3 most recent administrations Medication Order MAR Action Action Date Dose Rate Site cefOXitin (MEFOXITIN) 2,000 mg/20 mL in sterile water (premix) 2,000 mg 2,000 mg, intravenous, at 400 mL/hr, Administer over 3 Minutes, Once, On Wed08/23/19 at 1000, For 1 dose, Pre-Op, Indications: Prophylaxis, SurgicalIndications:Prophylaxis, Surgical Given 08/23/2019 1:57 PM RIP/MOULD OPERATOR 2,000 mg Given 08/23/2019 12:09 PM RIP/MOULD OPERATOR 2,000 mg ePHEDrine injection intravenous, Administer over 5 Minutes, As needed, Starting on Wed08/23/19 at 1243, Anesthesia Intra-op Given 08/23/2019 12:43 PM RIP/MOULD OPERATOR 5 mg fentaNYL (SUBLIMAZE) preservative free injection intravenous, As needed, Starting on Wed08/23/19 at 1207, Anesthesia Intra-op Given 08/23/2019 12:07 PM RIP/MOULD OPERATOR 100 mc g glycopyrrolate (ROBINUL) injection intravenous, Administer over 1 Minutes, As needed, Starting on Wed08/23/19 at 1244, Anesthesia Intra-op Given 08/23/2019 2:16 PM RIP/MOULD OPERATOR 0.2 mg Given 08/23/2019 12:44 PM RIP/MOULD OPERATOR 0.2 mg heparin 5,000 unit/mL injection 5,000 Units 5,000 Units, subcutaneous, Every 8 hours scheduled, First dose on Wed08/22/19 at 1730, Indications: Deep Vein Thrombosis PreventionIndications:Deep Vein Thrombosis Prevention Given 08/23/2019 1:04 PM RIP/MOULD OPERATOR 5,000 Units HYDROmorphone (DILAUDID) injection intravenous, Administer over 2 Minutes, As needed, Starting on Wed08/23/19 at 1405, Anesthesia Intra-op Given 08/23/2019 2:05 PM RIP/MOULD OPERATOR 0.6 mg Lactated Ringer's (LR) infusion 30 mL/hr, intravenous, Continuous, Starting on Wed08/23/19 at 1000, Pre-Op New Bag 08/23/2019 11:36 AM RIP/MOULD OPERATOR New Bag 08/23/2019 9:51 AM RIP/MOULD OPERATOR 30 mL/hr 30 mL/hr lidocaine PF (XYLOCAINE) 10 mg/mL (1 %) preservative free injection As needed, Starting on Wed08/23/19 at 1206, Anesthesia Intra-op Given 08/23/2019 12:06 PM RIP/MOULD OPERATOR 40 mg neostigmine (PROSTIGMIN) injection intravenous, Administer over 3 Minutes, As needed, Starting on Wed08/23/19 at 1416, Anesthesia Intra-op Given 08/23/2019 2:16 PM RIP/MOULD OPERATOR 2 mg ondansetron (ZOFRAN) injection intravenous, Administer over 2 Minutes, As needed, Starting on Wed08/23/19 at 1405, Anesthesia Intra-op Given 08/23/2019 2:05 PM RIP/MOULD OPERATOR 8 mg propofol (DIPRIVAN) IV intravenous, As needed, Starting on Wed08/23/19 at 1208, Anesthesia Intra-op Given 08/23/2019 12:15 PM RIP/MOULD OPERATOR 50 mg Given 08/23/2019 12:09 PM RIP/MOULD OPERATOR 50 mg Given 08/23/2019 12:08 PM RIP/MOULD OPERATOR 100 mg rocuronium (ZEMURON) injection intravenous, As needed, Starting on Wed08/23/19 at 1209, Anesthesia Intra-op Given 08/23/2019 1:23 PM RIP/MOULD OPERATOR 20 mg Given 08/23/2019 12:09 PM RIP/MOULD OPERATOR 40 mg documented in this encounter Care Teams Dobie Worker Relationship Specialty Start Date End Date Barbra Goddard PA PCP - General Physician Marketing Operations Associate 01/22/19 12/05/19 Luann Lawrence NP Nurse Practitioner Nurse Practitioner 01/06/19 Adarsh Tuttle MD [address] [facility] [address] [place] [address] Consulting Physician Gastroenterology 02/22/19 Sebastien Martinez DO [address] [address] Medical Oncologist/Fusing Machine Operator Hematology and Oncology 02/22/19 Guru Winters DO [address] [address] Consulting Physician Gastroenterology 02/22/19 documented as of this encounter
--- OUTSIDE RECORDS SUMMARY | 2024-10-04 03:06 | XMS_ITS | Encounter Summary ---
Author Organization [facility] Healthcare Address [address] [place] [address] Care Team Providers Care Director Critical Care Name Role Phone Luann Lawrence NP Unavailable [phone] Barbra Goddard Primary Care Pr ovider Adarsh Tuttle MD Unavailable [phone] Sebastien Martinez DO Unavailable [phone] Guru Winters DO Unavailable [phone] Reason for Referral * Diagnostic Imaging (Routine) - Closed Specialty Diagnoses / Procedures Referred By Clemencia mendez Referred To Contact Radiology Diagnoses Malignant carcinoid tumor of stomach (HCC) Procedures MRI Abdomen Pancreas W WO Contrast Sebastien Martinez DO Phone: tel: fax: [address] [address] Referral ID Status Reason Start Date Expiration Date Visits Re quested Visits Authorized [id number] Closed 02/10/2019 08/21/2020 1 1 Reason for Visit * Diagnostic Imaging (Routine) - Closed Specialty Diagnoses / Procedures Referred By Clemencia mendez Referred To Contact Radiology Diagnoses Malignant carcinoid tumor of stomach (HCC) Procedures MRI Abdomen Pancreas W WO Contrast Sebastien Martinez DO Phone: tel: fax: [facility] [address] [place] [address] Referral ID Status Reason Start Date Expiration Date Visits Re quested Visits Authorized [id number] Closed 02/10/2019 08/21/2020 1 1 Encounter Details Date Type Department Care Team (Latest Contact Info) Description 02/24/2019 6:02 AM CDT - 02/24/2019 11:59 PM CDT Hospital Encounter [facility] Procedure Holding [address] [place] [address] Sebastien Martinez, DO [address] [address] Malignant carcinoid tumor of stomach (CMS/HCC) Discharge [...] on file 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 Gender Identity Female 06/07/2020 8:39 AM CDT Sexual Orientation Not on file 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 Not on file Not on mikie e documented as of this encounter Medications at Time of Discharge cholecalciferol (VITAMIN D-3) 1,000 unit capsuleIndicatio ns:Vitamin D Deficiency Take 2 capsules (2,000 Units total) by mouth water pollution specialist before breakfast buPROPion XL (WELLBUTRIN XL) 300 mg 24 hr tablet Take 150 mg by mouth daily 01/05/2018 9 ciprofloxacin (CIPRO) 500 mg tablet Take 500 mg by mouth every 12 (twelve) hours 0 01/06/2019 9 escitalopram (LEXAPRO) 10 mg tabletIndication s:Anxiety with Depression Take 10 mg by mouth every morning 0 hydroxychloroqui ne (PLAQUENIL) 200 mg tablet Take 400 mg by mouth daily 9 hydroxychloroqui ne (PLAQUENIL) 200 mg tabletIndication s:Arthritis Take 1 tablet (200 mg total) by mouth water pollution specialist before breakfast 01/30/2019 3 losartan-hydroCH LOROthiazide (HYZAAR) 50-12.5 mg per tabletIndication s:hypertension Take 1 tablet by mouth every morning 0 metoprolol XL (TOPROL XL) 100 mg 24 hr tablet Take 50 mg by mouth 02/07/2017 9 multivit with min-folic acid 200 mcg tablet,chewable Take by mouth 9 pravastatin (PRAVACHOL) 40 mg tabletIndication s:hyperlipidemia Take 40 mg by mouth every morning 11/15/2018 0 documented as of this encounter Discharge Disposition Disposition Code Departure Means Destination Discharge to home or self care documented in this encounter Plan of Treatment Not on file documented as of this encounter Procedures Procedure Name Priority Date/Time Associated Diagnosis Comments MRI ABDOMEN PANCREAS W WO CONTRAST Schedule Routine, Read Routine (OP Routine) 02/24/2019 7:19 AM CDT Malignant carcinoid tumor of stomach (CMS/HCC) POCT CREATININE - DEVICE Routine 02/24/2019 6:31 AM CDT documented in this encounter Results * MRI Abdomen Pancreas W WO Contrast (02/24/2019 7:19 AM CDT) Anatomical Region Laterality Modality Body N/A Magnetic Resonan ce 02/24/2019 9:24 AM CDT Impressions 02/24/2019 10:36 AM CDT Pancreatic head mass seen on outside, unavailable PET dotatate scan is not visualized. ??Recommend direct correlation of abdominal MRI with the outside hospital dotatate scan. Dictated by: Roge Sandy M.D. Ph.D. The radiology attending physician has personally reviewed this study, and had reviewed and/or edited this written report and agrees with it. Electronically signed by: Yandy Lackey M.D. Narrative 02/24/2019 10:36 AM CDT EXAMINATION: 1. MAGNETIC RESONANCE IMAGING OF THE ABDOMEN WITH AND WITHOUT CONTRAST 2. THREE DIMENSIONAL RECONSTRUCTION OF THE BILIARY TREE AND PANCREATIC DUCT HISTORY: 53-year-old woman with carcinoid tumor of the stomach status post resection with a pancreatic head lesion seen on outside dotatate scan. TECHNIQUE: Magnetic resonance imaging of the abdomen was performed prior to and following the uneventful administration of intravenous Gadolinium contrast. The raw data was processed on the scanner by the technologist for 3 dimensional reconstructions of the intrahepatic ducts, extrahepatics ducts, and pancreatic duct. Protocol: Liver MRCP Contrast: Dotarem 12 mL COMPARISON: No prior magnetic resonance imaging is available for comparison. ??Outside hospital dotatate scan is unavailable. FINDINGS: Liver: There is no steatosis or iron deposition. There is a small cyst in segment 4. - Bile ducts: There is extrahepatic biliary ductal dilation measuring up to 1 centimeters at the eryn hepatus, which smoothly tapers in the ampulla. - Focal liver lesions: None. - Vasculature: There is a conventional hepatic arterial anatomy. The portal, hepatic, and superior mesenteric veins are patent. Gallbladder: Normal. Pancreas: Pancreatic head mass seen on outside dotatate scan is not visualized. Spleen: Normal. Adrenals: Normal. Kidneys: Normal. Other Findings: No masses are seen in the stomach. Procedure Note Yandy Lackey MD - 02/24/2019 EXAMINATION: 1. MAGNETIC RESONANCE IMAGING OF THE ABDOMEN WITH AND WITHOUT CONTRAST 2. THREE DIMENSIONAL RECONSTRUCTION OF THE BILIARY TREE AND PANCREATIC DUCT HISTORY: 53-year-old woman with carcinoid tumor of the stomach status post resection with a pancreatic head lesion seen on outside dotatate scan. TECHNIQUE: Magnetic resonance imaging of the abdomen was performed prior to and following the uneventful administration of intravenous Gadolinium contrast. The raw data was processed on the scanner by the technologist for 3 dimensional reconstructions of the intrahepatic ducts, extrahepatics ducts, and pancreatic duct. Protocol: Liver MRCP Contrast: Dotarem 12 mL COMPARISON: No prior magnetic resonance imaging is available for comparison. Outside hospital dotatate scan is unavailable. FINDINGS: Liver: There is no steatosis or iron deposition. There is a small cyst in segment 4. - Bile ducts: There is extrahepatic biliary ductal dilation measuring up to 1 centimeters at the eryn hepatus, which smoothly tapers in the ampulla. - Focal liver lesions: None. - Vasculature: There is a conventional hepatic arterial anatomy. The portal, hepatic, and superior mesenteric veins are patent. Gallbladder: Normal. Pancreas: Pancreatic head mass seen on outside dotatate scan is not visualized. Spleen: Normal. Adrenals: Normal. Kidneys: Normal. Other Findings: No masses are seen in the stomach. IMPRESSION: Pancreatic head mass seen on outside, unavailable PET dotatate scan is not visualized. Recommend direct correlation of abdominal MRI with the outside hospital dotatate scan. Dictated by: Roge Sandy M.D. Ph.D. The radiology attending physician has personally reviewed this study, and had reviewed and/or edited this written report and agrees with it. Electronically signed by: Yandy Lackey M.D. Sebastien Martinez DO IMG MRI PROCEDURES Final Res ult * POCT creatinine (02/24/2019 6:31 AM CDT) Creatinine POC 0.8 0.6 - 1.1 mg/dL [facility] Blood specimen (specimen) 02/24/2019 6:31 AM CDT 02/24/2019 6:31 AM CDT Narrative [facility] - 02/24/2019 1:29 PM CDT Sebastien Martinez DO LAB POCT ORDERABLES - DEVICE Final Result [facility] Department [place] [address] documented in this encounter Visit Diagnoses Diagnosis Malignant carcinoid tumor of stomach (HCC) Malignant carcinoid tumor of the stomach documented in this encounter Administered Medications Inactive Administered Medications - up to 3 most recent administrations Medication Order MAR Action Action Date Dose Rate Site gadoterate meglumine (DOTAREM) 0.5 mmol/mL injection 13.82 mL 13.82 mL (0.1 mmol/kg ? 69.1 kg), intravenous, Once in imaging, contrast, Starting on Wed02/24/19 at 0711, For 1 dose, Imaging Protocol Orders Given 02/24/2019 7:11 AM CDT 12 mL documented in this encounter Active and Recently Administered Medications Times are shown in CDT. PRN Medication Order 02/22/2019 02/23/2019 02/24/2019 gadoterate meglumine (DOTAREM) 0.5 mmol/mL injection 13.82 mL (COMPLETED) 13.82 mL (0.1 mmol/kg ? 69.1 kg), intravenous, Once in imaging, contrast, Starting on Wed02/24/19 at 0711, For 1 dose, Imaging Protocol Orders 0711 (Given - Provid er: Victoriano Ricardo, R-RT) documented in this encounter Care Teams Director Critical Care Relationship Specialty Start Date End Date Barbra Goddard PA PCP - General Physician Venetian Blind Assembler 01/22/19 12/05/19 Luann Lawrence NP Nurse Practitioner Nurse Practitioner 01/06/19 Adarsh Tuttle MD [address] [facility] [address] [place] [address] Consulting Physician Gastroenterology 02/22/19 Sebastien Martinez DO [address] [place] [address] [id number] Medical Oncologist/Synchro Assembler Hematology and Oncology 02/22/19 Guru Winters DO [address] [place] [id number] Consulting Physician Gastroenterology 02/22/19 documented as of this encounter
--- OUTSIDE RECORDS SUMMARY | 2024-10-04 03:06 | XMS_ITS | Encounter Summary ---
Author Organization [facility] Facility Care Team Providers Care Breeding Manager Name Role Phone Luann Lawrence EXCEPTIONAL CHILDREN TEACHER ASSISTANT Unavailable [phone] Barbra Goddard Primary Care Pr ovider Adarsh Tuttle MD Unavailable [phone] Sebastien Martinez DO Unavailable [phone] Guru Winters DO Unavailable [phone] Encounter Details Date Type Department Care Team (Latest Contact Info) Description 08/23/2019 Travel Social History Tobacco Use Types Packs/Day Years Used Date Smoking Tobacco: Former Cigarettes 1 2 1 997 - 1998 Smokeless Tobacco: Never Alcohol Use Standard Drinks/Week Comments Yes 2 (1 standard drink = 0.6 oz pur e alcohol) Comments No Sex and Gender Information Value Date Recorded Sex Assigned at Not on file 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 Gender Identity Female 06/07/2020 8:39 AM CDT Sexual Orientation Not on file 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 file Not on mikie e documented as of this encounter Plan of Treatment Not on file documented as of this encounter Visit Diagnoses Not on filedocumented in this encounter Care Teams Breeding Manager Relationship Specialty Start Date End Date Barbra Goddard PA PCP - General Physician General Ophthalmologist 01/22/19 12/05/19 Luann Lawrence NP Nurse Practitioner Nurse Practitioner 01/06/19 Adarsh Tuttle MD [address] [facility] [address] [place] [address] Consulting Physician Gastroenterology 02/22/19 Sebastien Martinez DO [address] [place] [id number] Medical Oncologist/Line Locator Hematology and Oncology 02/22/19 Guru Winters DO [address] [place] [id number] Consulting Physician Gastroenterology 02/22/19 documented as of this encounter
--- OUTSIDE RECORDS SUMMARY | 2024-10-04 03:06 | XMS_ITS | Encounter Summary ---
Author Organization [facility] Facility Care Team Providers Care Assurance Officer Name Role Phone Luann Lawrence NP Unavailable [phone] Barbra Goddard Primary Care Pr ovider Adarsh Tuttle MD Unavailable [phone] Sebastien Martinez DO Unavailable [phone] Guru Winters DO Unavailable [phone] Gato Abrams MD Unavailable [phone] Encounter Details Date Type Department Care Team (Latest Contact Info) Description 09/08/2019 Travel Social History Tobacco Use Types Packs/Day Years Used Date Smoking Tobacco: Former Cigarettes 1 2 1 7 - 1998 Smokeless Tobacco: Never Alcohol Use Standard Drinks/Week Comments Yes 2 (1 standard drink = 0.6 oz pur e alcohol) Comments No Sex and Gender Information Value Date Recorded Sex Assigned at Not on file 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 Gender Identity Female 06/07/2020 8:39 AM CDT Sexual Orientation Not on file 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 Not on file Not on mikie e documented as of this encounter Plan of Treatment Not on file documented as of this encounter Visit Diagnoses Not on filedocumented in this encounter Care Teams Assurance Officer Relationship Specialty Start Date End Date Barbra Goddard PA PCP - General Physician Manager Staffing 01/22/19 12/05/19 Luann Lawrence, ANUP Nurse Practitioner Nurse Practitioner 01/06/19 Adarsh Tuttle MD [address] [facility] [address] [place] [address] Consulting Physician Gastroenterology 02/22/19 Sebastien Martinez DO [address] [place] [id number] Medical Oncologist/Quality Improvement Manager Hematology and Oncology 02/22/19 Guru Winters DO [address] [place] [address] Consulting Physician Gastroenterology 02/22/19 Gato Abrams MD [address] [place] [address] Surgeon Surgical Oncology 09/07/19 documented as of this encounter
--- OUTSIDE RECORDS SUMMARY | 2024-10-04 03:06 | XMS_ITS | Encounter Summary ---
Author Organization [facility] Address [address] [place] [address] Phone Care Team Providers Care Claims Adjuster Crop Name Role Phone MelindaLuann Aditya ANUP Unavailable [phone] Barbra Goddard Primary Care Pr ovider Adarsh Tuttle MD Unavailable [phone] Vick Li DO Unavailable [phone] Guru Winters DO Unavailable [phone] Gato Abrams MD Unavailable [phone] Reason for Referral * Diagnostic Imaging (Routine) - Closed Specialty Diagnoses / Procedures Referred By Contac t Referred To Contact Diagnoses Malignant carcinoid tumor of stomach (HCC) Pernicious anemia Procedures CT Chest Abdomen W Contrast Vick Li DO Phone: tel: fax: External Order Referral ID Status Reason Start Date Expiration Date Visits Re quested Visits Authorized [id number] Closed 09/08/2019 03/19/2021 1 1 R LINE LINEMAN Reason for Visit * Reason Comments Follow-up * Consultation (Routine) - Closed Specialty Diagnoses / Procedures Referred By Contac t Referred To Contact Oncology Diagnoses Neuroendocrine cancer (HCC) Malignant carcinoid tumor of stomach (HCC) Guru Winters DO Phone: tel: fax: [facility] [address] [place] [address] [place] [address] Phone: tel: fax: Referral ID Status Reason Start Date Expiration Date V isits Requested Visits Authorized [id number] Closed Specialty Services Required 01/04/2019 10/17/2019 99 [phone] Encounter Details Date Type Department Care Team (Late st Contact Info) Description 09/08/2019 8:45 AM POWER LINE LINEMAN Office Visit [facility] 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 Not on file Not on file Not on mikie e documented as of this encounter Last Filed Vital Signs Vital Sign Reading Time Taken Comments Blood Pressure 129/71 09/08/2019 8:36 AM POWER LINE LINEMAN Pulse 58 09/08/2019 8:36 AM POWER LINE LINEMAN Temperature 36.8 ??C (98.2 ??F) 09/08/2019 8:36 AM CS T Respiratory Rate 14 09/08/2019 8:36 AM POWER LINE LINEMAN Oxygen Saturation 98% 09/08/2019 8:36 AM POWER LINE LINEMAN Inhaled Oxygen Concentration - - Weight 71.6 kg (157 lb 12.8 oz) 09/08/2019 8:36 AM POWER LINE LINEMAN Height 162.6 cm (5' 4 ) 09/08/2019 8:36 AM POWER LINE LINEMAN Body Mass Index 27.09 09/08/2019 8:36 AM POWER LINE LINEMAN documented in this encounter Progress Notes * Vick Li, DO - 09/08/2019 8:45 AM CST Patient ID: Fabiola Gibson is a 54 y.o. female. Primary Care Provider: NBA Ward Assessment/Plan 1. 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 2. Pernicious anemia. 3. 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 4. R0 resection. Recommendations: 1. She does not require any adjuvant hormone therapy or somatostatin analog therapy. 2. She does require close GI for follow-up and surveillance with EGDs. I will refer her back to for repeat EGD in the spring. 3. After long discussion with the patient outlining that this type of cancer usually does not metastasize, she would feel better if I would order surveillance CT imaging at least for the next 1-2 years. 4. Therefore, I will see her back here in 6 months with repeat serological testing with gastrin andchromogranin and CT scan of the chest and abdomen with contrast for her carcinoid tumor of the upper GI tract. 5. Regarding her pernicious anemia, she will need lifelong vitamin B12 supplementation through intramuscular injections every 4 weeks. 6. She is at risk adenocarcinoma of the stomach and recurrent neuroendocrine tumor of the stomach. Patient Active Problem List Diagnosis ??? Malignant carcinoid tumor of stomach (CMS/HCC) ??? Carcinoid tumor of stomach ??? Pernicious anemia ??? Gastric carcinoma (CMS/HCC) Diagnoses and all orders for this visit: Malignant carcinoid tumor of stomach (CMS/HCC) (Primary) - Clinic Appointment Request Follow up; VICK LI; Clinic Appointment Location: [facility] - Vitamin B12; Future - Chromogranin A; Future - Iron profile w/ IBC; Future - Ferritin; Future - Clinic Appointment Request Follow up; VICK LI MD; Clinic Appointment Location: [facility]; Future - Gastrin; Future - CT Chest Abdomen W Contrast; Future - Folate; Future - Chromogranin A; Future - Gastrin; Future - CBC with auto differential; Future Pernicious anemia - Clinic Appointment Request Follow up; VICK LI; Clinic Appointment Location: [facility] - Vitamin B12; Future - Chromogranin A; Future - Iron profile w/ IBC; Future - Ferritin; Future - Clinic Appointment Request Follow up; VICK LI MD; Clinic Appointment Location: [facility]; Future - Gastrin; Future - CT Chest Abdomen W Contrast; Future - Folate; Future - Chromogranin A; Future - Gastrin; Future - CBC with auto differential; Future Subjective Interval History: 1. Stage I carcinoid tumor of the stomach. - negative carcinoid syndrome 2. Her primary care physician, Dr. Huizar refer the patient to Dr. Winters for GI evaluation regarding anemia and to undergo routine surveillance colonoscopy. 3. Dr. Winters performed these procedures on December 26. He noted 3 distinct polyps within the stomach and performed polypectomy on each of these lesions. All these polyps were removed successfully. Three gastric polyps showed well- differentiated neuroendocrine tumor with 1 of them having minor invasion into the submucosa. 4. Subsequently, surgical pathology report showed that the biopsies of these polyps were consistentwith a well-differentiated neuroendocrine tumor consistent with carcinoid tumor. 5. She was then referred to Dr. Tuttle at [facility] for EUS evaluation. Thiswas performed on January 13. 6. EUS procedure note did not identify any regional adenopathy or residual malignant tumors of the submucosa, mucosa or stomach wall. He noted 2 residual small papules and these were banded and sloughed off. 7. Surgical pathology report from the biopsies of the stomach showed no residual carcinoid tumor orneuroendocrine carcinoma. There were rare atypical cells noted but did not have any positive staining for neuroendocrine carcinoma. 8. At our initial consultation, I recommended PET-CT scan imaging and serological testing for vaso-active peptides. 9. In January, Chromogranin A level was elevated 489. Fasting serotonin levels less than 10. 10. Twenty-four urine collection for 5-H IAA was normal. 11. PET CT scan with gallium donatate showed an abnormal focus of hypermetabolic activity involvingthe head of the pancreas measuring 1.5 cm. No other sites of suspicious hypermetabolic areas noted. 12. Due to concerns of a possible pancreatic neuroendocrine tumor, I referred the patient to Dr. Gato Abrams in Surgical Oncology Department at [facility]. 13. On February 24, she underwent an MRI of the pancreas which showed no evidence of any type of neoplastic process of the pancreas. It was completely normal. 14. At that time Dr. Abrams recommended continued EGD surveillance and did not recommend surgical intervention. 15. Repeat EGD by Dr. Winters on May 18. EGD showed several gastric polyps and these were removed by snare polypectomy procedure. Surgical pathology report at this procedure revealed recurrent well-differentiated neuroendocrine tumor consistent with carcinoid tumor. 16. Recent diagnosis of pernicious anemia. She is on vitamin B12 injections 1000 micro g every 4 weeks. 17. In May, repeat MRI of the pancreas showed T2 enhancement of the greater curvature of the stomach. No other abnormalities were noted. Chromogranin A in May was better but still elevated 256. 18. At my last visit in May, we had a long discussion and I referred her back to Dr. Abrams. He had an depth, Station with the patient and decision was to proceed with surgical resection of this portion of the stomach that had recurrent disease. 19. On August 23, Dr. Abrams performed laparoscopic distal gastrectomy with Billroth II gastrojejunostomy reconstruction. Patient tolerated the procedure well. 20. She comes in to discuss the surgical pathology report in further follow-up management recommendations. Interval Notes: I have reviewed: allergies, current medications, past family history, past medical history, past social history, past surgical history and problem list HPI Review of Systems Constitutional: Negative. Negative for appetite change and chills. HENT: Negative. Eyes: Negative. Respiratory: Negative. Cardiovascular: Negative. Gastrointestinal: Positive for nausea. Endocrine: Negative. Genitourinary: Negative. Musculoskeletal: Positive for arthralgias. Skin: Negative. Neurological: Negative. Hematological: Negative. Psychiatric/Behavioral: Negative. Objective Physical Exam: Vital Signs for this encounter: BSA: 1.8 meters squared BP 129/71 (BP Location: Right arm) Pulse 58 Temp 36.8 ??C (98.2 ??F) (Oral) Resp 14 Ht 162.6 cm (5' 4 ) Wt 71.6 kg (157 lb 12.8 oz) SpO2 98% BMI 27.09 kg/m?? Physical Exam Constitutional: Appearance: She is [...] 08/26/2019 0.79 0.60 - 1.10 mg/dL Final AST Date Value Ref Range Status 08/24/2019 38 10 - 45 Units/L Final surgical pathology report from the distal gastrectomy procedure showed a well- differentiated neuroendocrine tumor on 2 areas of the resected specimen measuring less than 1 mm. All surgical margins were free of disease. Two lymph nodes were removed without any abnormality. R LINE LINEMAN documented in this encounter Plan of Treatment Scheduled Orders Name Type Priority Associated Diagnoses Orde r Schedule Vitamin B12 Lab Routine Malignant carcinoid tumor of stomach (CMS/HCC) Pernicious anemia Expected: 09/08/2019, Expires: 09/08/2020 Chromogranin A Lab Routine Malignant carcinoid tumor of stomach (CMS/HCC) Pernicious anemia Expected: 09/08/2019, Expires: 09/08/2020 Iron profile w/ IBC Lab Routine Malignant carcinoid tumor of stomach (CMS/HCC) Pernicious anemia Expected: 09/08/2019, Expires: 09/08/2020 Ferritin Lab Routine Malignant carcinoid tumor of stomach (CMS/HCC) Pernicious anemia Expected: 09/08/2019, Expires: 09/08/2020 Gastrin Lab Routine Malignant carcinoid tumor of stomach (CMS/HCC) Pernicious anemia Expected: 09/08/2019, Expires: 09/08/2020 CT Chest Abdomen W Contrast Imaging Schedule Routine, Read Routine (OP Routine) Malignant carcinoid tumor of stomach (CMS/HCC) Pernicious anemia Expected: 02/29/2020 (Approximate), Expires: 09/08/2020 Folate Lab Routine Malignant carcinoid tumor of stomach (CMS/HCC) Pernicious anemia Expected: 09/08/2019, Expires: 09/08/2020 Chromogranin A Lab Routine Malignant carcinoid tumor of stomach (CMS/HCC) Pernicious anemia Expected: 02/29/2020 (Approximate), Expires: 09/08/2020 Gastrin Lab Routine Malignant carcinoid tumor of stomach (CMS/HCC) Pernicious anemia Expected: 02/29/2020 (Approximate), Expires: 09/08/2020 CBC with auto differential Lab Routine Malignant carcinoid tumor of stomach (CMS/HCC) Pernicious anemia Expected: 02/29/2020 (Approximate), Expires: 09/08/2020 documented as of this encounter Visit Diagnoses Diagnosis Malignant carcinoid tumor of stomach (HCC)- Primary Malignant carcinoid tumor of the stomach Pernicious anemia documented in this encounter Orders Appointment Requests Count Last Ordered Date Fi rst Ordered Date ONCBCN CLINIC APPOINTMENT REQUEST 2 020 09/08/2019 documented in this encounter Care Teams Claims Adjuster Crop Relationship Specialty Start Date End Date Barbra Goddard PA PCP - General Physician Freelance Digital Project Manager 01/22/19 12/05/19 Luann Lawrence NP Nurse Practitioner Nurse Practitioner 01/06/19 Adarsh Tuttle MD [address] [facility] [address] [place] [address] Consulting Physician Gastroenterology 02/22/19 Vick Li DO [address] [place] [id number] Medical Oncologist/Ice Skater Hematology and Oncology 02/22/19 [place] [address] [place] [id number] Consulting Physician Gastroenterology 02/22/19 Gato Abrams MD [address] [place] [id number] Surgeon Surgical Oncology 09/07/19 documented as of this encounter
--- OUTSIDE RECORDS SUMMARY | 2024-10-04 03:06 | XMS_ITS | Encounter Summary ---
Author Organization [facility] Healthcare Address [address] [place] [address] Care Team Providers Care Air Antisubmarine Officer Name Role Phone Luann Lawrence NP Unavailable [phone] Barbra Goddard Primary Care Pr ovider Adarsh Tuttle MD Unavailable [phone] Sebastien Martinez DO Unavailable [phone] Guru Winters DO Unavailable [phone] Encounter Details Date Type Department Care Team (Latest Contact Info) Description 08/23/2019 7:48 AM STUDENT MINISTRY PASTOR - 08/27/2019 11:46 AM STUDENT MINISTRY PASTOR Hospital Encounter 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 Not on file Not on file Not on mikie e documented as of this encounter Last Filed Vital Signs Vital Sign Reading Time Taken Comments Blood Pressure 102/61 08/27/2019 8:00 AM STUDENT MINISTRY PASTOR Pulse 66 08/27/2019 8:00 AM STUDENT MINISTRY PASTOR Temperature 37 ??C (98.6 ??F) 08/27/2019 8:00 AM STUDENT MINISTRY PASTOR Respiratory Rate 18 08/27/2019 8:00 AM STUDENT MINISTRY PASTOR Oxygen Saturation 95% 08/27/2019 8:00 AM STUDENT MINISTRY PASTOR Inhaled Oxygen Concentration - - Weight 73.9 kg (163 lb) 08/25/2019 5:15 AM STUDENT MINISTRY PASTOR Height 160 cm (5' 3 ) 08/23/2019 5:16 PM STUDENT MINISTRY PASTOR Body Mass Index 28.87 08/23/2019 5:16 PM STUDENT MINISTRY PASTOR documented in this encounter Discharge Diagnoses Diagnosis Malignant carcinoid tumor of the stomach (HCC) - MALIGNANT CARCINOID TUMOR OF THE STOMACH Malignant carcinoid tumor of the stomach Hyperlipidemia, unspecified - HYPERLIPIDEMIA, UNSPECIFIED Essential (primary) hypertension - ESSENTIAL (PRIMARY) HYPERTENSION Unspecified essential hypertension Chronic atrophic gastritis without bleeding - CHRONIC ATROPHIC GASTRITIS WITHOUT BLEEDING Rheumatoid arthritis, unspecified (HCC) - RHEUMATOID ARTHRITIS, UNSPECIFIED Family history of ischemic heart disease and other diseases of the circulatory system - FAMILY HISTORY OF ISCHEMIC HEART DISEASE AND OTHER DISEASES OF THE CIRCULATORY SYSTEM Family history of malignant neoplasm of ovary - FAMILY HISTORY OF MALIGNANT NEOPLASM OF OVARY Personal history of nicotine dependence - PERSONAL HISTORY OF NICOTINE DEPENDENCE Vitamin B12 deficiency anemia due to intrinsic factor deficiency - VITAMIN B12 DEFICIENCY ANEMIA DUE TO INTRINSIC FACTOR DEFICIENCY Pernicious anemia Personal history of urinary (tract) infections - PERSONAL HISTORY OF URINARY (TRACT) INFECTIONS Tubal ligation status - TUBAL LIGATION STATUS Major depressive disorder, single episode, unspecified - MAJOR DEPRESSIVE DISORDER, SINGLE EPISODE, UNSPECIFIED Anxiety disorder, unspecified - ANXIETY DISORDER, UNSPECIFIED documented in this encounter Discharge Summaries * Sara Farrell PA - 08/27/2019 9:47 AM CST Inpatient Discharge Summary BRIEF OVERVIEW Admitting Provider: Gato Meza MD Discharge Provider: Gato Meza MD Primary Care Physician at Discharge: NBA Ward [phone] Admission Date: 08/23/2019 Discharge Date: 08/27/19 4 Primary Discharge Diagnosis: Gastric carcinoma (CMS/HCC) Secondary Discharge Diagnosis: Principal Problem: Gastric carcinoma (CMS/HCC) DETAILS OF HOSPITAL STAY Presenting Problem/History of Present Illness: Ms. Gibson is a 54 y.o. female with a history of gastric carcinoid who has no family history and anemia. ??She has atrophic gastritis on biopsies and clinically.?Thus, I think she would benefit from consideration of distal gastrectomy/antrectomy to remove her gastrin source as a cause of her carcinoid. When I saw her in clinic, I recommended that?undergo a laparoscopic, possible open, distal gastrectomy (antrectomy) with Bilroth II reconstruction.?We discussed this operation, including the risks, benefits, and alternatives to surgical treatment. ??Specifically, we discussed the risk of , duodenal stump or??anastomotic leak requiring drain placement or re- operative intervention, risk of bleeding, infection, and wound-related complications. ??We further discussed common scenarios encountered after gastric??surgery, including delayed gastric emptying, ileus, dumping syndrome, and other gastrointestinal issues, including the management of these problems. ??We also discussed risks related to general anesthesia. ??We discussed the expected post-operative course, including the expected length of stay, time to beginning PO intake, and the follow-up involved. ??I rubi several pictures and provided ?Emeliwith literature and several websites to obtain more infor mation (ACS, NCI, ASCO). ??After our discussion, ??decided to proceed with surgery. ??Informed consent was obtained in clinic and she presented on the day of surgery. ?? Hospital Course: Ms. Juanjo Gibson was admitted on the day of surgery for her planned elective procedure. Please see full dictated operative summary for details. After initial recovery in the PACU she was transferred to the [facility] floor where the patient remained throughout the rest of the admission. She was kept NPO initially. Diet was slowly advanced, pain medications were transitioned from IV to oral, and home medications were restarted. she was encouraged to ambulate and worked with PT/OT throughout the admission. By the time of discharge she was tolerating Post Gastrectomy diet, pain was well controlled on oral medications, and she was voiding and ambulating without difficulty. Active Issues Requiring Follow-up: B12 injections Test Results Pending at Discharge: Surgical Pathology Operative Procedures Performed: Procedure(s): LAPAROSCOPIC DISTAL GASTRECTOMY, BILROTH II RECONSTRUCTION Transversus Abdominis Plane Block [place] [facility] [address] Other Procedures: Pertinent Test Results: Lab Results Component Value Date WBC 5.3 08/26/2019 WBC 6.0 08/25/2019 WBC 6.4 08/24/2019 ] Lab Results Component Value Date CREATININE 0.79 08/26/2019 CREATININE 0.84 08/25/2019 CREATININE 0.76 08/24/2019 ] Lab Results Component Value Date HGB 8.8 (L) 08/26/2019 HGB 9.0 (L) 08/25/2019 HGB 8.2 (L) 08/24/2019 Discharge Details Physical Exam at Discharge: Discharge Condition: Good Pulse: 62 Resp: 16 BP: 106/60 Temp: 36.7 ??C (98.1 ??F) Weight: 73.9 kg (163 lb) Pertinent Exam Findings at Discharge: see last progress note Discharge Disposition: Discharge to home or self care Code Status at Discharge: Full Code Discharge Instructions: ! Call Your Doctor If Call if you are having any problems after surgery. We prefer you call us directly rather than go to your local hospital or clinic. Even if you decide to go to your local emergency room, call us so we can arrange transfer if needed. Call your surgeon???s office (listed in follow up section) for the following: * You have a fever of 101 degrees or higher. * You have drainage from your incisions. * Your incisions are red or swollen. * Your pain medicine is not helping your pain. * You have nausea or vomiting. * You are not passing gas. * You are having constipation. * You are having diarrhea. * You have bloody stools. * You lose more than 15% of your body weight from the time of discharge. ! Diet * You should eat 6-8 small meals in a day. * You should eat low-sugar meals. * You should take 2-3 supplements in a day such as Ensure/Boost/Glucerna or equivalent (see handoutgiven by fund accountant). ! Activity * No lifting greater than 10 pounds for 6 weeks. * No driving while taking narcotic pain medication. * No tub baths, swimming, or hot tubs for 6 weeks. * You may shower; do not scrub the incision sites. * You are encouraged to walk frequently and remain active during the day. * You may return to non-strenuous work activity in 3-4 weeks. Care Instructions * Keep the incision sites clean and dry. * Do not apply cream or lotion to surgical site. * Stay well hydrated. Drink at least 2 liters daily of non-caffeinated beverages, preferably water. * Continue incentive spirometry throughout the day. * Write down everything you drink and eat in the 3 days before your follow up appointment. Bring this record to your doctor???s appointment. * Keep the incision sites clean and dry. * Do not apply cream or lotion to surgical sites.. * Continue taking a multivitamin daily. * Continue Vitamin B12 injections every 4 weeks; contact your Primary Care Doctor to arrange. appointment. Special Instructions A separate prescription for vitamin B12 injections was sent to your home pharmacy. Please contact your Primary Care Doctor to arrange monthly injections. ! Follow Up * DR. MEZA will see you on WednesdaySeptember 18 at 1:45pm n the [facility] ([facility]), [address] [place] [address]. Please call for questions or concerns. * With your PRIMARY CARE DOCTOR (PCP) within 2-3 weeks after discharge. If your doctor is not on file with our office, please contact us so that your surgery information may be sent to your doctor???s office. * With your ONCOLOGY DOCTOR (JEN) within 2-3 weeks after discharge. Additional Information Pathology usually comes back in 7-10 business days. Your doctor will discussthe pathology results and any additional treatment options (chemotherapy, radiation) at your followup appointment. Discharge Medications: Your medication list START taking these medications acetaminophen 500 mg capsule Take 2 capsules (1,000 mg total) by mouth every 6 (six) hours gabapentin 300 mg capsule Commonly known as: NEURONTIN Take 1 capsule (300 mg total) by mouth 3 (three) times a day ondansetron ODT 4 mg disintegrating tablet Commonly known as: ZOFRAN-ODT Take 1 tablet (4 mg total) by mouth every 4 (four) hours as needed for nausea or vomiting oxyCODONE 5 mg immediate release tablet Commonly known as: ROXICODONE Take 1 tablet (5 mg total) by mouth every 4 (four) hours as needed for pain polyethylene glycol 17 gram packet Commonly known as: MIRALAX Take 1 packet (17 g total) by mouth daily Start taking on: August 28, 2019 CONTINUE taking these medications ALPRAZolam 0.5 mg disintegrating tablet Commonly known as: NIRAVAM buPROPion XL 150 mg 24 hr tablet Commonly known as: WELLBUTRIN XL cyanocobalamin 1,000 mcg/mL injection Commonly known as: Vitamin B-12 Inject 1 mL (1,000 mcg total) under the skin every 30 (thirty) days escitalopram 10 mg tablet Commonly known as: LEXAPRO hydroxychloroquine 200 mg tablet Commonly known as: PLAQUENIL insulin syringe-needle U-100 1 mL 29 gauge x 1/2 syringe 1 Syringe every 30 (thirty) days losartan-hydroCHLOROthiazide 50-12.5 mg per tablet Commonly known as: HYZAAR omeprazole 20 mg capsule Commonly known as: PriLOSEC pravastatin 40 mg tablet Commonly known as: PRAVACHOL VITAMIN D3 1,000 unit capsule Generic drug: cholecalciferol Outpatient Follow-Up: Future Appointments Date Time Provider Department Center 09/08/2019 8:45 AM Sebastien Martinez, ONC [facility] Oncology 09/18/2019 1:45 PM Gato Meza MD [facility] [address] [place] Cosigned by Gato Meza MD at 08/27/2019 5:47 PM STUDENT MINISTRY PASTOR ENT MINISTRY PASTOR ENT MINISTRY PASTOR documented in this encounter Discharge Instructions * Discharge Instructions* Sara Farrell PA - 08/27/2019 9:51 AM STUDENT MINISTRY PASTOR ! Call Your Doctor If Call if you are having any problems after surgery. We prefer you call us directly rather than go to your local hospital or clinic. Even if you decide to go to your local emergency room, call us so we can arrange transfer if needed. Call your surgeon???s office (listed in follow up section) for the following: * You have a fever of 101 degrees or higher. * You have drainage from your incisions. * Your incisions are red or swollen. * Your pain medicine is not helping your pain. * You have nausea or vomiting. * You are not passing gas. * You are having constipation. * You are having diarrhea. * You have bloody stools. * You lose more than 15% of your body weight from the time of discharge. ! Diet * You should eat 6-8 small meals in a day. * You should eat low-sugar meals. * You should take 2-3 supplements in a day such as Ensure/Boost/Glucerna or equivalent (see handoutgiven by fund accountant). ! Activity * No lifting greater than 10 pounds for 6 weeks. * No driving while taking narcotic pain medication. * No tub baths, swimming, or hot tubs for 6 weeks. * You may shower; do not scrub the incision sites. * You are encouraged to walk frequently and remain active during the day. * You may return to non-strenuous work activity in 3-4 weeks. Care Instructions * Keep the incision sites clean and dry. * Do not apply cream or lotion to surgical site. * Stay well hydrated. Drink at least 2 liters daily of non-caffeinated beverages, preferably water. * Continue incentive spirometry throughout the day. * Write down everything you drink and eat in the 3 days before your follow up appointment. Bring this record to your doctor???s appointment. * Keep the incision sites clean and dry. * Do not apply cream or lotion to surgical sites.. * Continue taking a multivitamin daily. * Continue Vitamin B12 injections every 4 weeks; contact your Primary Care Doctor to arrange. appointment. Special Instructions A separate prescription for vitamin B12 injections was sent to your home pharmacy. Please contact your Primary Care Doctor to arrange monthly injections. ! Follow Up * DR. MEZA will see you on WednesdaySeptember 18 at 1:45pm n the [facility]), [address] [place] [address] - [address] , [place] [address]. Please call for questions or concerns. * With your PRIMARY CARE DOCTOR (PCP) within 2-3 weeks after discharge. If your doctor is not on file with our office, please contact us so that your surgery information may be sent to your doctor???s office. * With your ONCOLOGY DOCTOR (JEN) within 2-3 weeks after discharge. Additional Information Pathology usually comes back in 7-10 business days. Your doctor will discussthe pathology results and any additional treatment options (chemotherapy, radiation) at your followup appointment. ENT MINISTRY PASTOR documented in this encounter Medications at Time of Discharge cholecalciferol (VITAMIN D-3) 1,000 unit capsuleIndications:V itamin D Deficiency Take 2 capsules (2,000 Units total) by mouth insulation mechanic before breakfast polyethylene glycol (MIRALAX) 17 gram packetIndications:co nstipation Take 1 packet (17 g total) by mouth daily 30 packet 08/28/2019 9 acetaminophen 500 mg capsule Take 2 capsules (1,000 mg total) by mouth every 6 (six) hours 50 tablet 08/27/2019 0 ALPRAZolam (NIRAVAM) 0.5 mg disintegrating tablet Take 0.5 mg by mouth nightly as needed for sleep 1/2 to 1 tablet nightly as needed for insomnia 0 buPROPion XL (WELLBUTRIN XL) 150 mg 24 hr tabletIndications:An xiety with Depression Take 150 mg by mouth every morning 03/12/2019 0 cyanocobalamin (Vitamin B-12) 1,000 mcg/mL injection Inject 1 mL (1,000 mcg total) under the skin every 30 (thirty) days 1 mL 3 2019 9 escitalopram (LEXAPRO) 10 mg tabletIndications:An xiety with Depression Take 10 mg by mouth every morning 0 gabapentin (NEURONTIN) 300 mg capsule Take 1 capsule (300 mg total) by mouth 3 (three) times a day 90 capsule 08/27/2019 0 hydroxychloroquine (PLAQUENIL) 200 mg tabletIndications:Ar thritis Take 1 tablet (200 mg total) by mouth insulation mechanic before breakfast 01/30/2019 3 insulin syringe-needle U-100 1 mL 29 gauge x 1/2 syringe 1 Syringe every 30 (thirty) days 30 each 1 2019 0 losartan-hydroCHLORO thiazide (HYZAAR) 50-12.5 mg per tabletIndications:hy pertension Take 1 tablet by mouth every morning 0 omeprazole (PriLOSEC) 20 mg capsuleIndications:T reatment of Non-Bleeding Gastric Disorder Take 20 mg by mouth every morning 0 ondansetron ODT (ZOFRAN-ODT) 4 mg disintegrating tablet Take 1 tablet (4 mg total) by mouth every 4 (four) hours as needed for nausea or vomiting 20 tablet 08/27/2019 0 oxyCODONE (ROXICODONE) 5 mg immediate release tabletIndications:Pa in Take 1 tablet (5 mg total) by mouth every 4 (four) hours as needed for pain 20 tablet 08/27/2019 0 pravastatin (PRAVACHOL) 40 mg tabletIndications:hy perlipidemia Take 40 mg by mouth every morning 11/15/2018 0 documented as of this encounter Ordered Prescriptions Prescription Sig Dispense Quantity Refills Last Filled Start Date End Date polyethylene glycol (MIRALAX) 17 gram packetIndications:co nstipation Take 1 packet (17 g total) by mouth daily 30 packet 08/28/2019 9 ondansetron ODT (ZOFRAN-ODT) 4 mg disintegrating tablet Take 1 tablet (4 mg total) by mouth every 4 (four) hours as needed for nausea or vomiting 20 tablet 08/27/2019 0 gabapentin (NEURONTIN) 300 mg capsule Take 1 capsule (300 mg total) by mouth 3 (three) times a day 90 capsule 08/27/2019 0 acetaminophen 500 mg capsule Take 2 capsules (1,000 mg total) by mouth every 6 (six) hours 50 tablet 08/27/2019 0 oxyCODONE (ROXICODONE) 5 mg immediate release tabletIndications:Pa in Take 1 tablet (5 mg total) by mouth every 4 (four) hours as needed for pain 20 tablet 08/27/2019 0 documented in this encounter Discharge Disposition Disposition Code Departure Means Destination Discharge to home or self care documented in this encounter Progress Notes * John Cash MD PhD - 08/27/2019 6:51 AM CST Hepatobiliary Surgery Daily Progress HPI: Ms. Juanjo Gibson is a 54 y.o. year old female with a history of well- differentiated gastric carcinoid tumor and atrophic gastritis who is status post laparoscopic distal gastrectomy with Billroth II gastrojejunostomy reconstruction. Length of Hospitalization: 4 Post Procedure Day: 4 Days Post-Op SUBJECTIVE/ INTERVAL HISTORY - No acute events overnight - Tolerating gastrectomy diet - Patient denies uncontrolled pain, nausea, fever, shortness of breath. - Ambulating well - Says she is feeling good this AM and wants to go home - Labs and vital signs stable Objective PHYSICAL EXAM: VITALS: BP 106/60 (BP Location: Left arm, Patient Position: Lying) Pulse 62 Temp 36.7 ??C (98.1??F) (Oral) Resp 16 Ht 160 cm (5' 3 ) Wt 73.9 kg (163 lb) SpO2 99% BMI 28.87 kg/m?? Constitutional: Appears comfortable. Lying in bed. No distress. HENT: No nasal cannula or NGT Eyes: Conjunctivae are normal. PERRL Pulmonary/Chest: Effort normal. No respiratory distress. No grossly audible wheezes or rales Abdominal: Soft. No distension and no mass. There is no tenderness. There is no rebound and no guarding. No hernia. Laparoscopic incisions without signs of infection- clean, dry, and intact covered with dermabond. Musculoskeletal: Normal range of motion. No edema or deformity. Neurological: Alert and oriented to person, place, and time. Skin: Skin is warm and dry. No rash noted. Not diaphoretic. No erythema. Psychiatric: Normal mood and affect. Current Facility-Administered Medications: ??? acetaminophen (TYLENOL) tablet 1,000 mg, 1,000 mg, oral, Q6H JESSICA, 1,000 mg at 08/26/19 1731 ??? buPROPion XL (WELLBUTRIN XL) 24 hour tablet 150 mg, 150 mg, oral, QAM, 150 mg at 08/26/19 0825 ??? cyanocobalamin (Vitamin B-12) injection 1,000 mcg, 1,000 mcg, subcutaneous, Q30 Days, 1,000 mcgat 08/24/19 0004 ??? escitalopram (LEXAPRO) tablet 10 mg, 10 mg, oral, QAM, 10 mg at 08/26/19 0825 ??? gabapentin (NEURONTIN) capsule 300 mg, 300 mg, oral, TID, 300 mg at 08/26/192053 ??? heparin 5,000 unit/mL injection 5,000 Units, 5,000 Units, subcutaneous, Q8H JESSICA, 5,000 Units at110/26/18 1354 ??? losartan (COZAAR) tablet 50 mg, 50 mg, oral, Daily, 50 mg at 08/26/19824 AND hydroCHLOROthiazide (HYDRODIURIL) tablet 12.5 mg, 12.5 mg, oral, Daily, 12.5 mg at 08/26/19824 ??? hydroxychloroquine (PLAQUENIL) tablet 200 mg, 200 mg, oral, QAM, 200 mg at 08/26/19824 ??? ondansetron ODT (ZOFRAN-ODT) disintegrating tablet 4 mg, 4 mg, oral, Q4H PRN ??? oxyCODONE (ROXICODONE) tablet 5 mg, 5 mg, oral, Q4H PRN, 5 mg at 08/25/192106 ??? polyethylene glycol (MIRALAX) packet 17 g, 17 g, oral, Daily, 17 g at 08/26/19824 ??? pravastatin (PRAVACHOL) tablet 40 mg, 40 mg, oral, QAM, 40 mg at 08/26/19824 ??? simethicone (MYLICON) chewable tablet 80 mg, 80 mg, oral, TID PRN, 80 mg at 08/24/19 0004 Lab/Radiology/Diagnostic Review: Laboratory studies from the past 24 hours were reviewed and significant for: Lab Results Component Value Date WBC 5.3 08/26/2019 WBC 6.0 08/25/2019 WBC 6.4 08/24/2019 Lab Results Component Value Date HGB 8.8 (L) 08/26/2019 HGB 9.0 (L) 08/25/2019 HGB 8.2 (L) 08/24/2019 Lab Results Component Value Date HCT 28.1 (L) 08/26/2019 HCT 28.2 (L) 08/25/2019 HCT 26.9 (L) 08/24/2019 Lab Results Component Value Date CREATININE 0.79 08/26/2019 CREATININE 0.84 08/25/2019 CREATININE 0.76 08/24/2019 Lab Results Component Value Date BILITOT 0.2 08/24/2019 Lab Results Component Value Date ALKPHOS 51 08/24/2019 Lab Results Component Value Date AST 38 08/24/2019 Lab Results Component Value Date ALT 42 08/24/2019 Vitals: 24hr Min/Max: Temp Min: 36.6 ??C (97.8 ??F) Max: 36.7 ??C (98.1 ??F) Pulse Min: 56 Max: 88 BP Min: 97/53 Max: 108/58 Resp Min: 16 Max: 18 SpO2 Min: 96 % Max: 99 % I/O last 2 completed shifts: In: - Out: 600 [Urine:600] No intake/output data recorded. Recent Interventions: - None Assessment/Plan 1. Gastric carcinoid/atrophic gastritis - Continue gastrectomy diet - Pain control: Tylenol, Gabapentin, Oxycodone PRN - Bowel regimen: Miralax daily - Antiemetics: Zofran PRN - Ambulate TID - D/c to home today John Cash MD PhD [facility] Service 08/27/20196:51 AM Cosigned by Camilo Chaparro MD at 08/27/2019 11:37 AM STUDENT MINISTRY PASTOR ENT MINISTRY PASTOR ENT MINISTRY PASTOR * John Cash MD PhD - 08/26/2019 12:37 PM CST Hepatobiliary Surgery Daily Progress HPI: Ms. Juanjo Gibson is a 54 y.o. year old female with a history of well- differentiated gastric carcinoid tumor and atrophic gastritis who is status post laparoscopic distal gastrectomy with Billroth II gastrojejunostomy reconstruction. Length of Hospitalization: 3 Post Procedure Day: 2 Days Post-Op SUBJECTIVE/ INTERVAL HISTORY - No acute events overnight - Tolerated gastrectomy diet - Patient denies uncontrolled pain, nausea, fever, shortness of breath. - Ambulating well - Labs and vital signs stable Objective PHYSICAL EXAM: VITALS: BP 108/58 (BP Location: Left arm, Patient Position: Lying) Pulse 63 Temp 36.7 ??C (98.1??F) (Oral) Resp 16 Ht 160 cm (5' 3 ) Wt 73.9 kg (163 lb) SpO2 99% BMI 28.87 kg/m?? Constitutional: Appears comfortable. Lying in bed. No distress. HENT: No nasal cannula or NGT Eyes: Conjunctivae are normal. PERRL Pulmonary/Chest: Effort normal. No respiratory distress. No grossly audible wheezes or rales Abdominal: Soft. No distension and no mass. There is no tenderness. There is no rebound and no guarding. No hernia. Laparoscopic incisions without signs of infection- clean, dry, and intact covered with dermabond. Musculoskeletal: Normal range of motion. No edema or deformity. Neurological: Alert and oriented to person, place, and time. Skin: Skin is warm and dry. No rash noted. Not diaphoretic. No erythema. Psychiatric: Normal mood and affect. Current Facility-Administered Medications: ??? acetaminophen (TYLENOL) tablet 1,000 mg, 1,000 mg, oral, Q6H JESSICA, 1,000 mg at 08/26/19 1159 ??? buPROPion XL (WELLBUTRIN XL) 24 hour tablet 150 mg, 150 mg, oral, QAM, 150 mg at 08/26/19824 ??? cyanocobalamin (Vitamin B-12) injection 1,000 mcg, 1,000 mcg, subcutaneous, Q30 Days, 1,000 mcgat 08/24/19 0004 ??? escitalopram (LEXAPRO) tablet 10 mg, 10 mg, oral, QAM, 10 mg at 08/26/19824 ??? gabapentin (NEURONTIN) capsule 300 mg, 300 mg, oral, TID, 300 mg at 08/26/19824 ??? heparin 5,000 unit/mL injection 5,000 Units, 5,000 Units, subcutaneous, Q8H JESSICA, 5,000 Units at110/26/18 0559 ??? losartan (COZAAR) tablet 50 mg, 50 mg, oral, Daily, 50 mg at 08/26/19824 AND hydroCHLOROthiazide (HYDRODIURIL) tablet 12.5 mg, 12.5 mg, oral, Daily, 12.5 mg at 08/26/19824 ??? hydroxychloroquine (PLAQUENIL) tablet 200 mg, 200 mg, oral, QAM, 200 mg at 08/26/19824 ??? ondansetron ODT (ZOFRAN-ODT) disintegrating tablet 4 mg, 4 mg, oral, Q4H PRN ??? oxyCODONE (ROXICODONE) tablet 5 mg, 5 mg, oral, Q4H PRN, 5 mg at 08/25/192106 ??? polyethylene glycol (MIRALAX) packet 17 g, 17 g, oral, Daily, 17 g at 08/26/19824 ??? pravastatin (PRAVACHOL) tablet 40 mg, 40 mg, oral, QAM, 40 mg at 08/26/19824 ??? simethicone (MYLICON) chewable tablet 80 mg, 80 mg, oral, TID PRN, 80 mg at 08/24/19 0004 Lab/Radiology/Diagnostic Review: Laboratory studies from the past 24 hours were reviewed and significant for: Lab Results Component Value Date WBC 6.0 08/25/2019 WBC 6.4 08/24/2019 WBC 7.0 08/24/2019 Lab Results Component Value Date HGB 9.0 (L) 08/25/2019 HGB 8.2 (L) 08/24/2019 HGB 8.8 (L) 08/24/2019 Lab Results Component Value Date HCT 28.2 (L) 08/25/2019 HCT 26.9 (L) 08/24/2019 HCT 28.6 (L) 08/24/2019 Lab Results Component Value Date CREATININE 0.84 08/25/2019 CREATININE 0.76 08/24/2019 CREATININE 0.76 08/24/2019 Lab Results Component Value Date BILITOT 0.2 08/24/2019 Lab Results Component Value Date ALKPHOS 51 08/24/2019 Lab Results Component Value Date AST 38 08/24/2019 Lab Results Component Value Date ALT 42 08/24/2019 Vitals: 24hr Min/Max: Temp Min: 36.6 ??C (97.9 ??F) Max: 36.9 ??C (98.4 ??F) Pulse Min: 56 Max: 74 BP Min: 97/57 Max: 108/58 Resp Min: 16 Max: 16 SpO2 Min: 95 % Max: 99 % I/O last 2 completed shifts: In: - Out: 1200 [Urine:1200] No intake/output data recorded. Recent Interventions: - None Assessment/Plan 1. Gastric carcinoid/atrophic gastritis - Continue gastrectomy diet - Pain control: Tylenol, Gabapentin, Oxycodone PRN - Bowel regimen: Miralax daily - Continue to monitor labs, vitals, and I&Os - Antiemetics: Zofran PRN - Ambulate TID - Prophylactic: SCD, SQ Heparin, ambulation, IS John Cash MD PhD [phone] 08/26/201912:37 PM Cosigned by Camilo Chaparro MD at 08/26/2019 12:44 PM STUDENT MINISTRY PASTOR ENT MINISTRY PASTOR ENT MINISTRY PASTOR * John Cash MD PhD - 08/25/2019 10:40 AM CST Hepatobiliary Surgery Daily Progress HPI: Ms. Juanjo Gibson is a 54 y.o. year old female with a history of well- differentiated gastric carcinoid tumor and atrophic gastritis who is status post laparoscopic distal gastrectomy with Billroth II gastrojejunostomy reconstruction. Length of Hospitalization: 2 Post Procedure Day: 2 Days Post-Op SUBJECTIVE/ INTERVAL HISTORY - No acute events overnight - Tolerated FLD - Patient denies uncontrolled pain, nausea, fever, shortness of breath. - Reports that she ambulated this AM and that her shoulder pain is improved today - Voided after ledezma removed - Labs and vital signs stable Objective PHYSICAL EXAM: VITALS: BP 108/55 (BP Location: Right arm) Pulse 65 Temp 36.5 ??C (97.7 ??F) (Oral) Resp 16 Ht 160 cm (5' 3 ) Wt 73.9 kg (163 lb) SpO2 96% BMI 28.87 kg/m?? Constitutional: Appears comfortable. Lying in bed. No distress. HENT: No nasal cannula or NGT Eyes: Conjunctivae are normal. PERRL Pulmonary/Chest: Effort normal. No respiratory distress. No grossly audible wheezes or rales Abdominal: Soft. No distension and no mass. There is no tenderness. There is no rebound and no guarding. No hernia. Laparoscopic incisions without signs of infection- clean, dry, and intact covered with dermabond. Musculoskeletal: Normal range of motion. No edema or deformity. Neurological: Alert and oriented to person, place, and time. Skin: Skin is warm and dry. No rash noted. Not diaphoretic. No erythema. Psychiatric: Normal mood and affect. Current Facility-Administered Medications: ??? acetaminophen (TYLENOL) tablet 1,000 mg, 1,000 mg, oral, Q6H JESSICA, 1,000 mg at 08/25/19 0030 ??? buPROPion XL (WELLBUTRIN XL) 24 hour tablet 150 mg, 150 mg, oral, QAM, 150 mg at 08/25/19808 ??? cyanocobalamin (Vitamin B-12) injection 1,000 mcg, 1,000 mcg, subcutaneous, Q30 Days, 1,000 mcgat 08/24/19 0004 ??? escitalopram (LEXAPRO) tablet 10 mg, 10 mg, oral, QAM, 10 mg at 08/25/19808 ??? gabapentin (NEURONTIN) capsule 300 mg, 300 mg, oral, TID, 300 mg at 08/25/19809 ??? heparin 5,000 unit/mL injection 5,000 Units, 5,000 Units, subcutaneous, Q8H JESSICA, 5,000 Units at110/25/18 0518 ??? losartan (COZAAR) tablet 50 mg, 50 mg, oral, Daily, 50 mg at 08/25/19808 AND hydroCHLOROthiazide (HYDRODIURIL) tablet 12.5 mg, 12.5 mg, oral, Daily, 12.5 mg at 08/25/19808 ??? hydroxychloroquine (PLAQUENIL) tablet 200 mg, 200 mg, oral, QAM, 200 mg at 08/25/19808 ??? ondansetron ODT (ZOFRAN-ODT) disintegrating tablet 4 mg, 4 mg, oral, Q4H PRN ??? oxyCODONE (ROXICODONE) tablet 5 mg, 5 mg, oral, Q4H PRN, 5 mg at 08/25/190 ??? polyethylene glycol (MIRALAX) packet 17 g, 17 g, oral, Daily, 17 g at 08/25/19808 ??? pravastatin (PRAVACHOL) tablet 40 mg, 40 mg, oral, QAM, 40 mg at 08/25/19 0809 ??? simethicone (MYLICON) chewable tablet 80 mg, 80 mg, oral, TID PRN, 80 mg at 08/24/19 0004 Lab/Radiology/Diagnostic Review: Laboratory studies from the past 24 hours were reviewed and significant for: Lab Results Component Value Date WBC 6.4 08/24/2019 WBC 7.0 08/24/2019 WBC 3.9 07/26/2019 Lab Results Component Value Date HGB 8.2 (L) 08/24/2019 HGB 8.8 (L) 08/24/2019 HGB 10.2 (L) 07/26/2019 Lab Results Component Value Date HCT 26.9 (L) 08/24/2019 HCT 28.6 (L) 08/24/2019 HCT 32.8 (L) 07/26/2019 Lab Results Component Value Date CREATININE 0.76 08/24/2019 CREATININE 0.76 08/24/2019 CREATININE 0.84 07/26/2019 Lab Results Component Value Date BILITOT 0.2 08/24/2019 Lab Results Component Value Date ALKPHOS 51 08/24/2019 Lab Results Component Value Date AST 38 08/24/2019 Lab Results Component Value Date ALT 42 08/24/2019 Vitals: 24hr Min/Max: Temp Min: 36.3 ??C (97.3 ??F) Max: 37 ??C (98.6 ??F) Pulse Min: 59 Max: 65 BP Min: 107/55 Max: 148/73 Resp Min: 16 Max: 18 SpO2 Min: 95 % Max: 99 % I/O last 2 completed shifts: In: - Out: 1800 [Urine:1800] No intake/output data recorded. Recent Interventions: - None Assessment/Plan 1. Gastric carcinoid/atrophic gastritis - Advance diet as tolerated to post gastrectomy - Pain control: Tylenol, Gabapentin, Oxycodone PRN - Bowel regimen: Miralax daily - Continue to monitor labs, vitals, and I&Os - Antiemetics: Zofran PRN - Ambulate TID - Prophylactic: SCD, SQ Heparin, ambulation, IS Johngeorges Cash MD PhD [phone] 08/25/201910:40 AM Cosigned by Gato Meza MD at 08/25/2019 11:20 AM STUDENT MINISTRY PASTOR ENT MINISTRY PASTOR ENT MINISTRY PASTOR ENT MINISTRY PASTOR * Hardy Barrera RN - 08/24/2019 11:24 AM CST 08/24/19 1119 Information Information Obtained From Patient Prior to Admission Primary Caregiver Self Support System Children Support system contact info (name, phone, availablity) Neena Reyna, daughter, . Home Care Services Other (Comment) (Does not currently have Home Health & states she never has had. Stated her daughter is a nurse& she could assist as needed.) Durable Medical Equipment None Living Arrangements Alone Type of Residence Private residence Steps in home? Yes, Outside of home Number of steps outside: 1 steps Potential Discharge Needs Anticipated discharge level of care Private residence Pt/Family agrees with Anticipated Level of Care Yes Patient expects to be discharged to: Private residence Dialysis No Behavioral Health Services No Patient was resting quietly in bed upon CM's arrival to the patient's room. Patient stated she was independent & driving prior to hospitalization. Patient stated she has never had to have Home Health nor has she ever used any DME assistive devices or home 02. Patient stated her daughter is a nurse & she probably would have her daughter assist if needed & not have Home Health. Patient stated she uses [facility] pharmacy in [place], [place]. Patient stated she would have transportation home per family. Chart reviewed for potential discharge needs. Information obtained from: Chart and patient/family: Per PA Note, 08/24/19: Ms. Juanjo Gibson is a 54 y.o. year old female with a history of well- differentiated gastric carcinoid tumor and atrophic gastritis who is status post laparoscopic distal gastrectomy with Billroth II gastrojejunostomy reconstruction. Insurance verified as: [facility] Choice Prescription coverage: Yes Admission Source: Home Transportation: Family member PCP: NBA Araujo Additional Information/Options Discussed: CM confirmed with patient PCP, pharmacy, phone, and address. Explained role and purpose of CM and discussed Home Health options. If Home Health is indicated at the time of discharge, the patient will be provided with a list of Home Health options if would agree to Home Health. Discharge Barriers/Problems: Establish a safe discharge disposition. Goal: To assure continuity of care. Implement a safe discharge with family support. Plan of Care: 1. Collaboration with patient/spouse, MD, direct care nurse, Eligibility Analyst, and other members of the health care team to assure needed interventions completed. 2. Return patient to baseline post discharge. 3. Raimann Machine Operator will follow along with SW for Discharge Planning - Interventions as needed. 4. Anticipated level of care at discharge: Return home. 5. Planned Discharge Disposition: Return home. Patient/Family agreeable with discharge plans. Based on a comprehensive family assessment, assistance with ADLs & instrumental activities of daily living after discharge will be provided by family members as needed. Through the course of our work, I determined that family members possess the skill and ability to provide and monitor the care of the patient when she returns home. Family members have the capacity to provide/monitor/arrange for the care of the patient. Finally, we determined that the family members have the knowledge of available resources and that combining them with their existing resources will suffice and care for the patient when she returns home. The treatment team is aware of this information. All are in agreement with the aftercare plan. NUNU Griggs, tipple engineer [phone] ENT MINISTRY PASTOR ENT MINISTRY PASTOR * Mar yAnne Lundy PA - 08/24/2019 7:26 AM CST Hepatobiliary Surgery Daily Progress HPI: Ms. Juanjo Gibson is a 54 y.o. year old female with a history of well- differentiated gastric carcinoid tumor and atrophic gastritis who is status post laparoscopic distal gastrectomy with Billroth II gastrojejunostomy reconstruction. Length of Hospitalization: 1 Post Procedure Day: 1 Day Post-Op SUBJECTIVE/ INTERVAL HISTORY - No acute events overnight - Tolerated sips of clears - Patient denies uncontrolled pain, nausea, fever, shortness of breath. Objective PHYSICAL EXAM: VITALS: BP 112/60 (BP Location: Right arm, Patient Position: Lying) Pulse 57 Temp 36.4 ??C (97.5 ??F) (Oral) Resp 18 Ht 160 cm (5' 3 ) Wt 74.6 kg (164 lb 8 oz) SpO2 99% BMI 29.14 kg/m?? Constitutional: Appears comfortable. Lying in bed. No distress. HENT: No nasal cannula nor NGT Eyes: Conjunctivae are normal. Pulmonary/Chest: Effort normal No respiratory distress. No grossly audible wheezes nor rales Abdominal: Soft. No distension and no mass. There is no tenderness. There is no rebound and no guarding. No hernia. Laparoscopic incisions without signs of clean, dry, and intact covered with dermabond. Musculoskeletal: Normal range of motion. No edema or deformity. Neurological: Alert and oriented to person, place, and time. Skin: Skin is warm and dry. No rash noted. Not diaphoretic. No erythema. Psychiatric: Normal mood and affect. Current Facility-Administered Medications: ??? acetaminophen (TYLENOL) tablet 1,000 mg, 1,000 mg, oral, Q6H JESSICA, 1,000 mg at 08/24/19 0611 ??? buPROPion XL (WELLBUTRIN XL) 24 hour tablet 150 mg, 150 mg, oral, QAM ??? cyanocobalamin (Vitamin B-12) injection 1,000 mcg, 1,000 mcg, subcutaneous, Q30 Days, 1,000 mcgat 08/24/19 0004 ??? dextrose 5% and sodium chloride 0.45% infusion (premix), 100 mL/hr, intravenous, Continuous, Last Rate: 100 mL/hr at 08/23/19 1538, 100 mL/hr at 08/23/19 1538 ??? escitalopram (LEXAPRO) tablet 10 mg, 10 mg, oral, QAM ??? gabapentin (NEURONTIN) capsule 300 mg, 300 mg, oral, TID ??? heparin 5,000 unit/mL injection 5,000 Units, 5,000 Units, subcutaneous, Q8H JESSICA, 5,000 Units at110/24/18 0611 ??? losartan (COZAAR) tablet 50 mg, 50 mg, oral, Daily AND hydroCHLOROthiazide (HYDRODIURIL) tablet 12.5 mg, 12.5 mg, oral, Daily ??? hydroxychloroquine (PLAQUENIL) tablet 200 mg, 200 mg, oral, QAM ??? oxyCODONE (ROXICODONE) tablet 5 mg, 5 mg, oral, Q4H PRN, 5 mg at 08/24/19 0611 ??? polyethylene glycol (MIRALAX) packet 17 g, 17 g, oral, Daily ??? pravastatin (PRAVACHOL) tablet 40 mg, 40 mg, oral, QAM ??? simethicone (MYLICON) chewable tablet 80 mg, 80 mg, oral, TID PRN, 80 mg at 08/24/19 0004 Lab/Radiology/Diagnostic Review: Laboratory studies from the past 24 hours were reviewed and significant for: Lab Results Component Value Date WBC 7.0 08/24/2019 WBC 3.9 07/26/2019 Lab Results Component Value Date HGB 8.8 (L) 08/24/2019 HGB 10.2 (L) 07/26/2019 Lab Results Component Value Date HCT 28.6 (L) 08/24/2019 HCT 32.8 (L) 07/26/2019 Lab Results Component Value Date CREATININE 0.76 08/24/2019 CREATININE 0.84 07/26/2019 CREATININE 0.7 05/25/2019 Lab Results Component Value Date BILITOT 0.2 08/24/2019 Lab Results Component Value Date ALKPHOS 51 08/24/2019 Lab Results Component Value Date AST 38 08/24/2019 Lab Results Component Value Date ALT 42 08/24/2019 Vitals: 24hr Min/Max: Temp Min: 36.4 ??C (97.5 ??F) Max: 36.9 ??C (98.4 ??F) Pulse Min: 55 Max: 77 BP Min: 112/60 Max: 162/85 Resp Min: 10 Max: 18 SpO2 Min: 92 % Max: 100 % I/O last 2 completed shifts: In: 1111.7 [I.V.:1111.7] Out: 1889 [Urine:1864; Blood:25] No intake/output data recorded. Recent Interventions: - None Assessment/Plan 1. Gastric carcinoid/atrophic gastritis - Advance diet as tolerated - Pain control: Tylenol, Gabapentin, Oxycodone PRN - Bowel regimen - D/C ledezma, void check in 6 hours - Continue to monitor labs, vitals, and I&Os - Antiemetics: Zofran PRN - Ambulate TID - Prophylactic: SCD, SQ Heparin, ambulation, IS Mary Anne Lundy PA-C [phone] 08/24/20197:26 AM ENT MINISTRY PASTOR * Bjorn Jones MD - 08/23/2019 5:25 PM CST [facility] SURGERY POSTOPERATIVE CHECK SUBJECTIVE: Ms. Juanjo Gibson is a 54 y.o. female who underwent Lap distal gastrectomy with Bilroth II reconstruction for Gastric carcinoma (CMS/HCC) Resting comfortably, pain well controlled . Denies nausea/vomiting, chest pain, shortness of breath. Hemodynamically stable with no complaints at this time. Past Medical History: Diagnosis Date ??? Anemia ??? Carcinoid tumor of stomach ??? Depression ??? Hyperlipidemia ??? Hypertension ??? Rheumatoid arthritis (CMS/HCC) ??? Urinary tract infection OBJECTIVE: Vitals: 08/23/19 1650 BP: 146/91 Pulse: 77 Resp: 14 Temp: SpO2: 98% General: No acute distress, resting comfortably HEENT: NGT Nasal cannula Pulmonary: Nonlabored breathing, clear to auscultation bilaterally Abdomen: Soft, appropriately TTP, nondistended. lap sites c/d/i with dermabond Ledezma with clear yellow urine Extremities: no edema, wearing SCD's, pedal pulses 2+ bilaterally PLAN: NPO with sips and chips IVF Tylenol Gabapentin Ledezma Anti emetics PRN monitor labs, VS, I's and O's closely. IS, OOB POD 0. SCD's, SQH, GI ppx if indicated Bjorn Jones MD Cosigned by Gato Meza MD at 08/24/2019 8:01 AM STUDENT MINISTRY PASTOR ENT MINISTRY PASTOR ENT MINISTRY PASTOR documented in this encounter H&P Notes * Yordan Cagle MD - 08/23/2019 10:38 AM CST I have reviewed the H&P, examined the patient, and endorse the findings as written. Plan of Care : Based on the above findings, I consider Juanjo Gibson to be an acceptable risk for : Procedure(s): LAPAROSCOPIC DISTAL GASTRECTOMY, BILROTH II RECONSTRUCTION DISTAL GASTRECTOMY Cosigned by Gato Meza MD at 08/23/2019 10:56 AM STUDENT MINISTRY PASTOR ENT MINISTRY PASTOR ENT MINISTRY PASTOR Source Note - Paulina Conn NP - 07/26/2019 11:41 AM CDT Images from the original note were not included. [facility] for Preoperative Assessment and Planning Preoperative Evaluation Record [facility] at [facility] ([facility]) Date: 07/26/19 Anesthesia Evaluation Juanjo Gibson is a 54 y.o. female Procedure(s): LAPAROSCOPIC DISTAL GASTRECTOMY, BILROTH II RECONSTRUCTION DISTAL GASTRECTOMY Pre-Op Diagnosis Codes: * Gastric carcinoma (CMS/HCC) [C16.9] HISTORY HPI Juanjo Gibson is a 54 y.o. female who [...] 70 + Hyperlipidemia Pertinent negatives: CAD ; [place] ; CABG ; atrial fibrillation; arrhythmia; pacemaker/ICD; [...] and complete pending laboratory results. Additional comments: Juanjo Gibson is a 54 y.o. female who [...] Total Score: 3 Yadira index score: 100 Anesthesia Plan * Gato Meza MD - 08/23/2019 8:34 AM CST I have reviewed the H&P, examined the patient, and endorse the findings as written. Plan of Care : Based on the above findings, I consider Juanjo Gibson to be an acceptable risk for : Procedure(s): LAPAROSCOPIC DISTAL GASTRECTOMY, BILROTH II RECONSTRUCTION DISTAL GASTRECTOMY ENT MINISTRY PASTOR Source Note - Paulina Conn NP - 07/26/2019 11:41 AM CDT Images from the original note were not included. [facility] for Preoperative Assessment and Planning Preoperative Evaluation Record [facility]AP Clinic at [facility] ([facility]) Date: 07/26/19 Anesthesia Evaluation Juanjo Gibson is a 54 y.o. female Procedure(s): LAPAROSCOPIC DISTAL GASTRECTOMY, BILROTH II RECONSTRUCTION DISTAL GASTRECTOMY Pre-Op Diagnosis Codes: * Gastric carcinoma (CMS/HCC) [C16.9] HISTORY HPI Juanjo Gibson is a 54 y.o. female who [...] 70 + Hyperlipidemia Pertinent negatives: CAD ; [place] ; CABG ; atrial fibrillation; arrhythmia; pacemaker/ICD; [...] and complete pending laboratory results. Additional comments: Juanjo Gibson is a 54 y.o. female who [...] Surgical History: Procedure Laterality Date ??? SECTION 1990,1992 twice ??? COLONOSCOPY 11/2018 [...] Total Score: 3 Yadira index score: 100 Anesthesia Plan documented in this encounter Consult Notes * Art Londono RD - 08/25/2019 2:01 PM CSTAssociated Order(s): IP CONSULT TO NUTRITION SERVICES Nutrition Assessment Reason for Assessment: Consult/Referral and Follow Up Encounter Date: 08/25/19 2:01 PM Patient is a 54 y.o. female with chief complaint of neuroendocrine tumor of stomach s/p distal gastrectomy. LOS is 2 days. HPI: Objective Past Medical History: Diagnosis Date ??? Anemia ??? Carcinoid tumor of stomach ??? Depression ??? Hyperlipidemia ??? Hypertension ??? Rheumatoid arthritis (CMS/HCC) ??? Urinary tract infection Past Surgical History: Procedure Laterality Date ??? SECTION 1989,1991 twice ??? COLONOSCOPY 11/2018 ??? ENDOMETRIAL ABLATION 09/2005 ??? ESOPHAGOGASTRODUODENOSCOPY 2019 x4 ??? TUBAL LIGATION 02/2005 Social History Tobacco Use ??? Smoking status: Former Smoker Packs/day: 1.00 Years: 2.00 Pack years: 2.00 Start date: 1996 Last attempt to quit: 1998 Years since quittin.8 ??? Smokeless tobacco: Never Used Substance Use Topics ??? Alcohol use: Yes Alcohol/week: 2.0 standard drinks Types: 2 Standard drinks or equivalent per week Family History Problem Relation Age of Onset ??? Dementia Mother ??? Emphysema Father ??? Other (Congestive Heart Failure) Father ??? No Known Problems Sister ??? Heart attack Brother ??? Ovarian cancer Mother's Sister ??? Colon cancer Mother's Brother ??? Cancer Maternal Grandmother Anthropometrics: Wt Readings from Last 3 Encounters: 08/25/19 73.9 kg (163 lb) 07/26/19 71.9 kg (158 lb 8 oz) 07/03/19 72.4 kg (159 lb 9.6 oz) Anthropometrics Weight: 73.9 kg (163 lb) Admission Weight : 71.7 kg Weight Change: -0.68 kg (-1.50 lbs) IBW/kg (Calculated) : 52.2 kg Height: 160 cm (5' 3 ) Weight in (lb) to have BMI = 25: 140.8 BMI (Calculated): 28.9 Nutrition Needs Calculations: Calculated Energy Needs Using Equations Weight: 73.9 kg (163 lb) Height: 160 cm (5' 3 ) Temp: 36.5 ??C (97.7 ??F) Estimated Protein Needs Type of Weight Used for Estimated Protein : [place] Protein Needs Based on g/k.3 Total Protein Estimated Needs (gm): 67.86 Kcal/kg Type of Weight Used for Estimated Kcals: Admission Kcal/k Total Kcal/kg Estimated Needs : 1791.7 Vital Signs: BP: 108/55 Temp: 36.5 ??C (97.7 ??F) Pulse: 65 Resp: 16 SpO2: 96 % Medications: Scheduled Meds: acetaminophen, 1,000 mg, oral, Q6H JESSICA buPROPion XL, 150 mg, oral, QAM cyanocobalamin, 1,000 mcg, subcutaneous, Q30 Days escitalopram, 10 mg, oral, QAM gabapentin, 300 mg, oral, TID heparin, 5,000 Units, subcutaneous, Q8H JESSICA losartan, 50 mg, oral, Daily And hydroCHLOROthiazide, 12.5 mg, oral, Daily hydroxychloroquine, 200 mg, oral, QAM polyethylene glycol, 17 g, oral, Daily pravastatin, 40 mg, oral, QAM Continuous Infusions: PRN Meds: ondansetron ODT ??? oxyCODONE ??? simethicone Lab Review: Sodium Date Value Ref Range Status 08/24/2019 141 135 - 145 mmol/L Final Potassium, pl Date Value Ref Range Status 08/24/2019 3.7 3.3 - 4.9 mmol/L Final BUN Date Value Ref Range Status 08/24/2019 8 8 - 25 mg/dL Final Creatinine Date Value Ref Range Status 08/24/2019 0.76 0.60 - 1.10 mg/dL Final Phosphorus, pl Date Value Ref Range Status 08/24/2019 3.0 2.3 - 4.5 mg/dL Final Albumin Date Value Ref Range Status 08/24/2019 3.6 3.5 - 5.0 g/dL Final Magnesium Date Value Ref Range Status 08/24/2019 2.0 1.4 - 2.5 mg/dL Final Calcium Date Value Ref Range Status 08/24/2019 9.1 8.5 - 10.3 mg/dL Final ALT Date Value Ref Range Status 08/24/2019 42 7 - 45 Units/L Final AST Date Value Ref Range Status 08/24/2019 38 10 - 45 Units/L Final Alk phos Date Value Ref Range Status 08/24/2019 51 40 - 130 Units/L Final No results found for: HGBA1C, HDL, LDLCALC, CHOL, TRIG Nursing Assessment: Intake/Output Summary (Last 24 hours) at 08/25/2019 1401 Last data filed at 08/25/2019 1200 Gross per 24 hour Intake -- Output 2400 ml Net -2400 ml Gastrointestinal Gastrointestinal (WDL): Within Defined Limits Abdomen Inspection: Soft, Tenderness Bowel Sounds (All Quadrants): Hypoactive Palpation: Soft, Tenderness Last BM Date: 08/23/19 Passing Flatus: Yes GI Symptoms: None Last BM Date: 08/23/19 Rubio Scale Score: 22 Skin Integrity: Surgical incision Dietary Orders (From admission, onward) Start Ordered 08/25/19 1100 Oral Nutrition Supplements Select Supplement: Boost Plus - Paul All Meals Question: Select Supplement: Answer: Boost Plus - Paul 08/25/19 0726 08/25/19 0726 Adult Diet GI Diets; Post Gastrectomy Diet effective now Question Answer Comment ([facility]) Diet type GI Diets GI: Post Gastrectomy 08/25/19 0725 Impression: 08/24 Pt reports she normally eats healthily but for the past months has been eating what she wants for fear of not being able to eat it again. Feels she has gained some weight but not more than 5 pounds. No other restrictions or problematic foods. Appears to have been well nourished prior to surgery. 08/25. Diet advanced to post gastrectomy with Boost Plus TID. Pt had first solid food for lunch and at some of the chicken salad and some of the soup and tolerated well. Has been doing well with the liquids prior. Had been discussing the diet information with her daughter prior to my visit. Had a couple of questions that were answered. Appears to be doing well NUTRITION DIAGNOSIS Nutrition Diagnosis 1: Food and nutrition-related knowledge deficit Related to: Altered GI function, Recent surgery Evidenced by: (partial gastrectomy) INTERVENTION Continue on post gastrectomy diet. Encouraged small frequent meals, aiming for tolerated foods for the next couple of weeks then adding higher fiber foods in small amounts to test for tolerance. Education provided 08/24. RD phone number provided. Pt verbalized understanding. Will continue to follow. GOALS / MONITORING: Goals: Oral intake to meet 75% estimated nutritional needs by next assessment, Patient/caregiver able to teach back understanding of role of diet in disease process prior to discharge Interventions: Encouragement, Education, nutrition, Meals and snacks Monitoring and Evaluation: Appetite, PO intake, Stool patterns, Plan of care Art Londono RD LD CDE [phone]. Weekends [phone] ENT MINISTRY PASTOR * Art Londono RD - 08/24/2019 10:55 AM CSTAssociated Order(s): IP CONSULT TO NUTRITION SERVICES Nutrition Assessment Reason for Assessment: Initial Nutrition Assessment, Consult/Referral and Diet Education Encounter Date: 11/07/19 10:55 AM Patient is a 54 y.o. female with chief complaint of neuroendocrine tumor of stomach s/p distal gastrectomy. LOS is 1 days. HPI: Objective Past Medical History: Diagnosis Date ??? Anemia ??? Carcinoid tumor of stomach ??? Depression ??? Hyperlipidemia ??? Hypertension ??? Rheumatoid arthritis (CMS/HCC) ??? Urinary tract infection Past Surgical History: Procedure Laterality Date ??? SECTION 1989,1991 twice ??? COLONOSCOPY 11/2018 ??? ENDOMETRIAL ABLATION 09/2005 ??? ESOPHAGOGASTRODUODENOSCOPY 2018 x4 ??? TUBAL LIGATION 02/2005 Social History Tobacco Use ??? Smoking status: Former Smoker Packs/day: 1.00 Years: 2.00 Pack years: 2.00 Start date: 1996 Last attempt to quit: 1998 Years since quittin.8 ??? Smokeless tobacco: Never Used Substance Use Topics ??? Alcohol use: Yes Alcohol/week: 2.0 standard drinks Types: 2 Standard drinks or equivalent per week Family History Problem Relation Age of Onset ??? Dementia Mother ??? Emphysema Father ??? Other (Congestive Heart Failure) Father ??? No Known Problems Sister ??? Heart attack Brother ??? Ovarian cancer Mother's Sister ??? Colon cancer Mother's Brother ??? Cancer Maternal Grandmother Anthropometrics: Wt Readings from Last 3 Encounters: 08/24/19 74.6 kg (164 lb 8 oz) 07/26/19 71.9 kg (158 lb 8 oz) 07/03/19 72.4 kg (159 lb 9.6 oz) Anthropometrics Weight: 74.6 kg (164 lb 8 oz) Admission Weight : 71.7 kg Weight Change: 2.94 kg (6.50 lbs) IBW/kg (Calculated) : 52.2 kg Height: 160 cm (5' 3 ) Weight in (lb) to have BMI = 25: 140.8 BMI (Calculated): 29.1 Nutrition Needs Calculations: Calculated Energy Needs Using Equations Weight: 74.6 kg (164 lb 8 oz) Height: 160 cm (5' 3 ) Temp: 36.9 ??C (98.4 ??F) Estimated Protein Needs Type of Weight Used for Estimated Protein : [place] Protein Needs Based on g/k.3 Total Protein Estimated Needs (gm): 67.86 Kcal/kg Type of Weight Used for Estimated Kcals: Admission Kcal/k Total Kcal/kg Estimated Needs : 1791.7 Vital Signs: BP: 134/71 Temp: 36.9 ??C (98.4 ??F) Pulse: 59 Resp: 18 SpO2: 99 % Medications: Scheduled Meds: acetaminophen, 1,000 mg, oral, Q6H JESSICA buPROPion XL, 150 mg, oral, QAM cyanocobalamin, 1,000 mcg, subcutaneous, Q30 Days escitalopram, 10 mg, oral, QAM gabapentin, 300 mg, oral, TID heparin, 5,000 Units, subcutaneous, Q8H JSESICA losartan, 50 mg, oral, Daily And hydroCHLOROthiazide, 12.5 mg, oral, Daily hydroxychloroquine, 200 mg, oral, QAM polyethylene glycol, 17 g, oral, Daily pravastatin, 40 mg, oral, QAM Continuous Infusions: dextrose 5% and sodium chloride 0.45%, 100 mL/hr, Last Rate: 100 mL/hr (08/23/19 7038) PRN Meds: ondansetron ODT ??? oxyCODONE ??? simethicone Lab Review: Sodium Date Value Ref Range Status 08/24/2019 141 135 - 145 mmol/L Final Potassium, pl Date Value Ref Range Status 08/24/2019 4.2 3.3 - 4.9 mmol/L Final BUN Date Value Ref Range Status 08/24/2019 11 8 - 25 mg/dL Final Creatinine Date Value Ref Range Status 08/24/2019 0.76 0.60 - 1.10 mg/dL Final Albumin Date Value Ref Range Status 08/24/2019 3.6 3.5 - 5.0 g/dL Final Calcium Date Value Ref Range Status 08/24/2019 8.9 8.5 - 10.3 mg/dL Final ALT Date Value Ref Range Status 08/24/2019 42 7 - 45 Units/L Final AST Date Value Ref Range Status 08/24/2019 38 10 - 45 Units/L Final Alk phos Date Value Ref Range Status 08/24/2019 51 40 - 130 Units/L Final No results found for: HGBA1C, HDL, LDLCALC, CHOL, TRIG Nursing Assessment: Intake/Output Summary (Last 24 hours) at 08/24/2019 1055 Last data filed at 08/24/2019 0655 Gross per 24 hour Intake 1111.67 ml Output 1890 ml Net -778.33 ml Gastrointestinal Gastrointestinal (WDL): Exceptions to WDL Abdomen Inspection: Tenderness Bowel Sounds (All Quadrants): Hypoactive Palpation: Soft Last BM Date: 08/23/19 Passing Flatus: No GI Symptoms: None Last BM Date: 08/23/19 Rubio Scale Score: 20 Skin Integrity: Surgical incision Dietary Orders (From admission, onward) Start Ordered 08/24/19707 Adult Diet Clear Liquid Diet effective now Question: ([facility]) Diet type Answer: Clear Liquid 08/24/19706 Impression: Pt reports she normally eats healthily but for the past months has been eating what she wants for fear of not being able to eat it again. Feels she has gained some weight but not more than 5 pounds. No other restrictions or problematic foods. Appears to have been well nourished prior to surgery. NUTRITION DIAGNOSIS Nutrition Diagnosis 1: Food and nutrition-related knowledge deficit Related to: Altered GI function, Recent surgery Evidenced by: (partial gastrectomy) INTERVENTION Started on clear liquids, plan to advance as tolerated. Education: Provided handout on gastric surgery nutrition therapy. Reviewed handout packet. Reinforced small frequent meals, protein with each feeding, drinking liquids separate from meals. Recommended 6 meals. Reviewed possible medical problems that may be experienced (dehydration, diarrhea, dumping syndrome, nausea / vomiting, pain in the upper chest). RD phone number provided. Pt verbalized understanding. Will continue to follow. GOALS / MONITORING: Goals: Oral intake to meet 75% estimated nutritional needs by next assessment, Patient/caregiver able to teach back understanding of role of diet in disease process prior to discharge Interventions: Encouragement, Education, nutrition, Meals and snacks Monitoring and Evaluation: Appetite, PO intake, Stool patterns, Plan of care Art Londono RD CDE [phone]. Weekends [phone] ENT MINISTRY PASTOR documented in this encounter Miscellaneous Notes * Plan of Care - Alexandria Steele RN - 08/27/2019 10:07 AM CST Problem: Health Behavior: Goal: Understanding of discharge needs will improve Outcome: Progressing Problem: Lack of Knowledge: Goal: Ability to develop a pain control plan will improve Outcome: Progressing Goal: Ability to identify pain intensity on a pain scale and rate it consistently will improve Outcome: Progressing Goal: Ability to notify healthcare provider of pain before it becomes unmanageable or unbearable will improve Outcome: Progressing Problem: Medication: Goal: Satisfaction with pain management regimen will improve Outcome: Progressing Problem: Sensory: Goal: Ability to identify factors that increase the pain will improve Outcome: Progressing Goal: Pain level will decrease Outcome: Progressing Problem: Lack of Knowledge: Goal: Expressions of a comfortable level of knowledge will increase Outcome: Progressing Goal: Knowledge of the prescribed therapeutic regimen will improve Outcome: Progressing Problem: Health Behavior: Goal: Ability to make informed decisions regarding treatment will improve Outcome: Progressing Goal: Identification of resources available to assist in meeting health care needs will improve Outcome: Progressing Goals: Clinical Goals for the Shift: monitor vitals and labs Summary: ENT MINISTRY PASTOR * Plan of Care - Faina Ashby RN - 08/26/2019 10:05 PM CST Goals: Clinical Goals for the Shift: monitor vitals and labs Summary: Problem: Health Behavior: Goal: Understanding of discharge needs will improve Outcome: Progressing Problem: Lack of Knowledge: Goal: Ability to develop a pain control plan will improve Outcome: Progressing Goal: Ability to identify pain intensity on a pain scale and rate it consistently will improve Outcome: Progressing Goal: Ability to notify healthcare provider of pain before it becomes unmanageable or unbearable will improve Outcome: Progressing Problem: Medication: Goal: Satisfaction with pain management regimen will improve Outcome: Progressing Problem: Sensory: Goal: Ability to identify factors that increase the pain will improve Outcome: Progressing Goal: Pain level will decrease Outcome: Progressing Problem: Lack of Knowledge: Goal: Expressions of a comfortable level of knowledge will increase Outcome: Progressing Goal: Knowledge of the prescribed therapeutic regimen will improve Outcome: Progressing Problem: Health Behavior: Goal: Ability to make informed decisions regarding treatment will improve Outcome: Progressing Goal: Identification of resources available to assist in meeting health care needs will improve Outcome: Progressing ENT MINISTRY PASTOR * Plan of Beth - Alexandria Steele RN - 08/26/2019 11:54 AM CST Problem: Health Behavior: Goal: Understanding of discharge needs will improve Outcome: Progressing Problem: Lack of Knowledge: Goal: Ability to develop a pain control plan will improve Outcome: Progressing Goal: Ability to identify pain intensity on a pain scale and rate it consistently will improve Outcome: Progressing Goal: Ability to notify healthcare provider of pain before it becomes unmanageable or unbearable will improve Outcome: Progressing Problem: Medication: Goal: Satisfaction with pain management regimen will improve Outcome: Progressing Problem: Sensory: Goal: Ability to identify factors that increase the pain will improve Outcome: Progressing Goal: Pain level will decrease Outcome: Progressing Problem: Lack of Knowledge: Goal: Expressions of a comfortable level of knowledge will increase Outcome: Progressing Goal: Knowledge of the prescribed therapeutic regimen will improve Outcome: Progressing Problem: Health Behavior: Goal: Ability to make informed decisions regarding treatment will improve Outcome: Progressing Goal: Identification of resources available to assist in meeting health care needs will improve Outcome: Progressing Goals: Clinical Goals for the Shift: monitor labs, vitals, pain management Summary: ENT MINISTRY PASTOR * Plan of Care - Faina Ashby RN - 08/25/2019 9:37 PM CST Goals: Clinical Goals for the Shift: monitor labs, vitals, pain management Summary: Problem: Health Behavior: Goal: Understanding of discharge needs will improve Outcome: Progressing Problem: Lack of Knowledge: Goal: Ability to develop a pain control plan will improve Outcome: Progressing Goal: Ability to identify pain intensity on a pain scale and rate it consistently will improve Outcome: Progressing Goal: Ability to notify healthcare provider of pain before it becomes unmanageable or unbearable will improve Outcome: Progressing Problem: Medication: Goal: Satisfaction with pain management regimen will improve Outcome: Progressing Problem: Sensory: Goal: Ability to identify factors that increase the pain will improve Outcome: Progressing Goal: Pain level will decrease Outcome: Progressing Problem: Lack of Knowledge: Goal: Expressions of a comfortable level of knowledge will increase Outcome: Progressing Goal: Knowledge of the prescribed therapeutic regimen will improve Outcome: Progressing Problem: Health Behavior: Goal: Ability to make informed decisions regarding treatment will improve Outcome: Progressing Goal: Identification of resources available to assist in meeting health care needs will improve Outcome: Progressing ENT MINISTRY PASTOR * Plan of Care - Robert Castillo RN - 08/25/2019 9:33 AM CST Goals: Clinical Goals for the Shift: Patient to remain updated on all plans of care, goals, treatments andprocedures throughout the day Summary: patient updated on plan of care and goals for the day. Patient able to verbalize understanding of presented information. Will cont to monitor ENT MINISTRY PASTOR * Plan of Care - Luz Valera RN - 08/25/2019 1:24 AM CST Goals: Problem: Health Behavior: Goal: Understanding of discharge needs will improve Outcome: Progressing Problem: Lack of Knowledge: Goal: Ability to develop a pain control plan will improve Outcome: Progressing Goal: Ability to identify pain intensity on a pain scale and rate it consistently will improve Outcome: Progressing Goal: Ability to notify healthcare provider of pain before it becomes unmanageable or unbearable will improve Outcome: Progressing Problem: Medication: Goal: Satisfaction with pain management regimen will improve Outcome: Progressing Problem: Sensory: Goal: Ability to identify factors that increase the pain will improve Outcome: Progressing Goal: Pain level will decrease Outcome: Progressing Problem: Lack of Knowledge: Goal: Expressions of a comfortable level of knowledge will increase Outcome: Progressing Goal: Knowledge of the prescribed therapeutic regimen will improve Outcome: Progressing Problem: Health Behavior: Goal: Ability to make informed decisions regarding treatment will improve Outcome: Progressing Goal: Identification of resources available to assist in meeting health care needs will improve Outcome: Progressing Summary: ENT MINISTRY PASTOR * Plan of Care - Liz Vincent RN - 08/24/2019 9:18 AM CST Goals: Stable post-op, monitor VS, labs. Summary: Tolerating clear liquids, adequate pain control. Seen by PT/OT. Free from injury, call light within reach. ENT MINISTRY PASTOR * Plan of Care - Jeanette Jaffe RN - 08/24/2019 12:35 AM STUDENT MINISTRY PASTOR Goals: Pain control Summary: Problem: Health Behavior: Goal: Understanding of discharge needs will improve Outcome: Progressing Problem: Lack of Knowledge: Goal: Ability to develop a pain control plan will improve Outcome: Progressing Goal: Ability to identify pain intensity on a pain scale and rate it consistently will improve Outcome: Progressing Goal: Ability to notify healthcare provider of pain before it becomes unmanageable or unbearable will improve Outcome: Progressing Problem: Medication: Goal: Satisfaction with pain management regimen will improve Outcome: Progressing Problem: Sensory: Goal: Ability to identify factors that increase the pain will improve Outcome: Progressing Goal: Pain level will decrease Outcome: Progressing Problem: Lack of Knowledge: Goal: Expressions of a comfortable level of knowledge will increase Outcome: Progressing Goal: Knowledge of the prescribed therapeutic regimen will improve Outcome: Progressing Problem: Health Behavior: Goal: Ability to make informed decisions regarding treatment will improve Outcome: Progressing Goal: Identification of resources available to assist in meeting health care needs will improve Outcome: Progressing ENT MINISTRY PASTOR * Plan of Care - Domonique Deleon RN - 08/23/2019 6:22 PM CST Goals: Summary: progressing toward goals, cont to monitor ENT MINISTRY PASTOR * Op Note - Gato Meza MD - 08/23/2019 12:38 PM CST Images from the original note were not included. OPERATIVE NOTE PRE-OPERATIVE DIAGNOSIS: Atrophic gastritis, well-differentiated gastric carcinoid tumors, hyper-gastrin state. POST-OPERATIVE DIAGNOSIS: Atrophic gastritis, well-differentiated gastric carcinoid tumors, hyper-gastrin state. SURGEON: Gato Meza M.D. FIRST CUSTOMER SERVICE SECURITY OFFICER: Yordan Cagle M.D. ANESTHESIA: General endotracheal. NAME OF OPERATION: 1. Laparoscopic distal gastrectomy. 2. Billroth II gastrojejunostomy reconstruction. INDICATIONS FOR PROCEDURE: Ms. Gibson is a 54 y.o. female with a history of gastric carcinoid who has no family history and anemia. She has atrophic gastritis on biopsies and clinically. Thus, I think she would benefit from consideration of distal gastrectomy/antrectomy to remove her gastrin source as a cause of her carcinoid. When I saw her in clinic, I recommended that Ms. Gibson undergo a laparoscopic, possible open, distal gastrectomy (antrectomy) with Bilroth II reconstruction. We discussed this operation, including the risks, benefits, and alternatives to surgical treatment. Specifically, we discussed the risk of , duodenal stump or anastomotic leak requiring drain placement or re-operative intervention, risk of bleeding, infection, and wound-related complications. We further discussed common scenarios encountered after gastric surgery, including delayed gastric emptying, ileus, dumping syndrome, and other gastrointestinal issues, including the management of these problems. We also discussed risks related to general anesthesia. We discussed the expected post-operative course, including the expected length of stay, time to beginning PO intake, and the follow-up involved. I rubi several pictures and provided Ms. Gibson with literature and several websites to obtain more information (ACS, NCI, ASCO).After our discussion, Ms. Gibson decided to proceed with surgery. Informed consent was obtained in clinic and she presented on the day of surgery. OPERATIVE FINDINGS: 1. Upon exploring the abdomen laparoscopically, there was no evidence of disease outside of the stomach. 2. We performed a laparoscopic distal gastrectomy/antrectomy. 3. We performed the Billroth II gastrojejunostomy reconstruction in an antecolic fashion. 4. Ms. Gibson tolerated the procedure well. DESCRIPTION OF PROCEDURE: The patient was brought to the operating room. A timeout procedure was performed per protocol. The patient was then identified by name and date of and agreed to the aforementioned procedure. Atthis time, the patient was transferred to the operating room table. General endotracheal anesthesiawas administered. The abdomen was then prepped and draped in the usual sterile fashion with chlorhexidine-based prep solution and an [place] skin protector. The abdomen was entered using an open technique just above theumbilicus, and balloon trocar was placed. The abdomen was insufflated. There was no injury to the abdominal viscera. Two other 5 mm were placed in the right abdomen and 2 in the left abdomen. The abdomen was explored, and there was no evidence of any disease outside of the stomach. The began the operation by dividing the omentum just below the gastroepiploic arcade using LigaSuredevice. This allowed us then to the lesser sac. We continued this dissection along the greater curvature of the stomach to the midpoint of the stomach. We then continued dissection more distally to the level of the duodenum just past the pylorus. The dissection was carried out just along the inferior border of the stomach and the duodenum using LigaSure device. We then transition our dissection to the superior aspect of the stomach along the lesser curvature.We incised the lesser omentum, and continued the dissection along the stomach distally just past the level of the pylorus. Thus, we had circumferentially dissected the duodenum just distal to the pylorus. This time, we transected the duodenum just distal to the pylorus using a single firing of the endovascular stapler with Swetha strip reinforcement. We then continued the dissection along the lesser curvature with the LigaSure device to approximately the mid point of the stomach. This time, we transected the stomach again at the angle of Hiss using 2 firings of the endovascular stapler to complete the resection. The gastric specimen was placed out of the field of view. The duodenal stump and the gastric transection lines were inspected. There is no evidence of any bleeding or enteric leakage. We next turned our attention to the reconstruction. We identified the ligament of Treitz, and traced out the small bowel approximately 30 cm distal to this. We brought up this loop of jejunum in an antecolic fashion along the greater curvature of the stomach. We then performed our gastrojejunostomyand a Billroth II fashion using a single firing of the endovascular stapler after enterotomies weremade in the stomach and in the anti mesenteric portion of the jejunum. The resultant enterotomy wasclosed with a 3 0 V lock suture in a running fashion. Both the staple line and the enterotomy closure appeared satisfactory. There was no bleeding or leakage of enteric contents. The operative field was then inspected. There was no bleeding or enteric leakage. The specimen was placed in a specimen bag and brought out through the 12 mm trocar site, which was slightly expanded.Sponge, needle, and instrument counts were correct x 2. All the ports were then removed under direct vision, and the abdomen was desufflated. The periumbilical port site fascia was closed with multiple interrupted 0 Vicryl [id number] sutures. A tap block was performed for postoperative pain relief. All the skin sites were closed with 4 Monocryl subcuticular suture, and surgical glue dressingwas applied. Ms. Gibson tolerated the procedure well, was extubated in the operating room, and was transferred tothe recovery room in stable condition. ANTIBIOTICS: Cefoxitin was administered 15 minutes prior to skin incision, maintained throughout the case, and discontinued after the case. DVT PROPHYLAXIS: Sequential compression devices were placed on the bilateral lower extremities prior to the induction of anesthesia and maintained throughout the case. 5,000 unites of heparin was administered subcutaneously upon induction of anesthesia. SPECIMENS REMOVED: Distal gastrectomy ESTIMATED BLOOD LOSS: 25 mL INTRAVENOUS FLUIDS: 1,000 mL URINE OUTPUT: 120 mL SPONGE/INSTRUMENT/NEEDLE COUNTS: Correct x 2 at the end of the case. CONDITION ON DISCHARGE FROM OPERATING ROOM: Stable. ATTESTATION OF PRESENCE: Gato Staley, the attending surgeon was present for the entire procedure; that is, from the induction of general anesthesia through the skin closure. Gato Meza M.D., F.A.C.S. Chief, Section of Surgical Oncology [facility] [employer] [facility] - fax USPS Mailing Address: Overnight Mailing Address: [address] [place] [address] [place] [address], [address] [place], [place] [address] [place], [place] [address] ENT MINISTRY PASTOR * Brief Op Note - Yordan Cagle MD - 08/23/2019 12:38 PM CST Operative Progress Note Surgical Team: Surgeon(s) and Role: * Gato Meza MD - Primary * Yair Valencia MD - Resident - Assisting * Yordan Cagle MD No anesthesia staff entered. Surgeon Partner: Christoph Parker RN Surgeon Partner Relief: Sonya Nielsen RN; Tosin Kim RN Scrub Relief: Anny Guo RN Scrub: ST Bianca; Sonya Nielsen RN; Tosin Kim RN DATE OF SURGERY : 08/23/2019 Preoperative Diagnosis: Pre-op Diagnosis * Gastric carcinoma (CMS/HCC) [C16.9] Postoperative Diagnosis: Post-op Diagnosis * Gastric carcinoma (CMS/HCC) [C16.9] Procedure(s): Procedure(s) (LRB): LAPAROSCOPIC DISTAL GASTRECTOMY, BILROTH II RECONSTRUCTION (N/A) Transversus Abdominis Plane Block [place] [id number] (Bilateral) Operative Findings: No overt metastatic disease. Estimated Blood Loss: 25 mL Intraoperative Fluids: 1000 mls crystalloid Specimens: ID Type Source Tests Collected by Time A : Partial Gastrectomy Tissue Stomach - Subtotal / Total Resection, Tumor SURGICAL PATHOLOGY Gato Meza MD 08/23/2019 1404 Implants: Nothing was implanted during the procedure Blood/Blood Products Transfused: 0 mls Complications: None Condition on Discharge from the operating room was stable Yordan Cagle MD Date: 08/23/2019 Time: 2:37 PM TEACHING ATTESTATION : I was present and directly participated in the entire procedure (including opening and closing). Cosigned by Gato Meza MD at 08/23/2019 2:53 PM STUDENT MINISTRY PASTOR ENT MINISTRY PASTOR ENT MINISTRY PASTOR documented in this encounter Plan of Treatment Not on file documented as of this encounter Procedures Procedure Name Priority Date/Time Associated Diagnosis Comments CBC WITHOUT DIFFERENTIAL Routine 08/26/2019 8:59 PM STUDENT MINISTRY PASTOR BASIC METABOLIC PANEL Routine 08/26/2019 8:59 PM STUDENT MINISTRY PASTOR CBC WITHOUT DIFFERENTIAL Routine 08/25/2019 9:12 PM STUDENT MINISTRY PASTOR BASIC METABOLIC PANEL Routine 08/25/2019 9:12 PM STUDENT MINISTRY PASTOR CBC WITHOUT DIFFERENTIAL Routine 08/24/2019 9:33 PM STUDENT MINISTRY PASTOR PHOSPHORUS Routine 08/24/2019 9:33 PM STUDENT MINISTRY PASTOR MAGNESIUM Routine 08/24/2019 9:33 PM STUDENT MINISTRY PASTOR BASIC METABOLIC PANEL Routine 08/24/2019 9:33 PM STUDENT MINISTRY PASTOR CBC WITHOUT DIFFERENTIAL Routine 08/24/2019 3:42 AM STUDENT MINISTRY PASTOR COMPREHENSIVE METABOLIC PANEL Routine 08/24/2019 3:42 AM STUDENT MINISTRY PASTOR SURGICAL PATHOLOGY Routine 08/23/2019 2: 04 PM STUDENT MINISTRY PASTOR Gastric carcinoma (CMS/HCC) TRANSVERSUS ABDOMINIS PLANE BLOCK [facility] [id number] 08/23/2019 11:57 AM STUDENT MINISTRY PASTOR Gastric carcinoma (CMS/HCC) Case Notes 08/22: pt line-up per Maday (lb)Case moved to third case to accommodate Dr. Bateman first case per Leann. SR 08/14@09Case moved to second case per Maday via email. SR 08/02@131 LAPAROSCOPIC GASTRECTOMY 08/23/2019 11:57 AM STUDENT MINISTRY PASTOR Gastric carcinoma (CMS/HCC) Case Notes 08/22: pt line-up per Maday (lb)Case moved to third case to accommodate Dr. Bateman first case per Leann. SR 08/14@09Case moved to second case per Maday via email. SR 08/02@131 TYPE AND SCREEN STAT 08/23/2019 10:00 AM STUDENT MINISTRY PASTOR documented in this encounter Results * Basic metabolic panel (08/26/2019 8:59 PM STUDENT MINISTRY PASTOR) Sodium 140 135 - 145 mmol/L [facility] Potassium, pl 4.1 3.3 - 4.9 mmol/L [facility] Chloride 103 97 - 110 mmol/L [facility] CO2 27 22 - 32 mmol/L [facility] Anion gap 10 2 - 15 mmol/L [facility] BUN 16 8 - 25 mg/dL [facility] Creatinine 0.79 0.60 - 1.10 mg/dL [facility] Glucose 106 70 - 199 mg/dL [facility] Comment: Interpretive Data Fasting glucose >/= 126 [...] interpretive data was last revised 2017. Calcium 9.5 8.5 - 10.3 mg/dL [facility] Blood specimen (specimen) 08/26/2019 8:59 PM STUDENT MINISTRY PASTOR 08/26/2019 9:18 PM STUDENT MINISTRY PASTOR us Mary Anne ARANGO LAB BLOOD ORDERABLES Final Result [facility] Department [place] [address] * (ABNORMAL) CBC without differential (08/26/2019 8:59 PM STUDENT MINISTRY PASTOR) WBC 5.3 3.8 - 9.9 K/cumm [facility] Hgb 8.8(L) 11.9 - 15.5 g/dL [facility] Hct 28.1(L) 35.6 - 45.5 % [facility] Plt 299 150 - 400 K/cumm [facility] MPV 9.3 9.1 - 12.3 fL [facility] RBC 3.54(L) 3.90 - 5.20 M/cumm [facility] MCV 79.4(L) 81.3 - 96.4 fL [facility] MCH 24.9(L) 27.1 - 33.3 pg [facility] MCHC 31.3(L) 32.3 - 35.7 g/dL [facility] RDW CV 13.5 11.1 - 14.9 % [facility] RDW SD 39.2 35.7 - 48.1 fL [facility] NRBC abs 0.00 0.00 - 0.01 K/cumm [facility] Blood specimen (specimen) 08/26/2019 8:59 PM STUDENT MINISTRY PASTOR 08/26/2019 9:18 PM STUDENT MINISTRY PASTOR us Mary Anne ARANGO LAB BLOOD ORDERABLES Final Result [facility] Department [place] [address] * Basic metabolic panel (08/25/2019 9:12 PM STUDENT MINISTRY PASTOR) Sodium 140 135 - 145 mmol/L [facility] Potassium, pl 3.9 3.3 - 4.9 mmol/L [facility] Chloride 103 97 - 110 mmol/L [facility] CO2 27 22 - 32 mmol/L [facility] Anion gap 10 2 - 15 mmol/L [facility] BUN 12 8 - 25 mg/dL [facility] Creatinine 0.84 0.60 - 1.10 mg/dL [facility] Glucose 98 70 - 199 mg/dL [facility] Comment: Interpretive Data Fasting glucose >/= 126 [...] interpretive data was last revised 2017. Calcium 8.9 8.5 - 10.3 mg/dL [facility] Blood specimen (specimen) 08/25/2019 9:12 PM STUDENT MINISTRY PASTOR 08/25/2019 9:20 PM STUDENT MINISTRY PASTOR us Mary Anne ARANGO LAB BLOOD ORDERABLES Final Result [facility] Department [place] [address] * (ABNORMAL) CBC without differential (08/25/2019 9:12 PM STUDENT MINISTRY PASTOR) WBC 6.0 3.8 - 9.9 K/cumm [facility] Hgb 9.0(L) 11.9 - 15.5 g/dL [facility] Hct 28.2(L) 35.6 - 45.5 % [facility] Plt 291 150 - 400 K/cumm [facility] MPV 9.0(L) 9.1 - 12.3 fL [facility] RBC 3.50(L) 3.90 - 5.20 M/cumm [facility] MCV 80.6(L) 81.3 - 96.4 fL [facility] MCH 25.7(L) 27.1 - 33.3 pg [facility] MCHC 31.9(L) 32.3 - 35.7 g/dL [facility] RDW CV 13.9 11.1 - 14.9 % [facility] RDW SD 40.3 35.7 - 48.1 fL [facility] NRBC abs 0.00 0.00 - 0.01 K/cumm [facility] Blood specimen (specimen) 08/25/2019 9:12 PM STUDENT MINISTRY PASTOR 08/25/2019 9:20 PM STUDENT MINISTRY PASTOR us Mary Anne ARANGO LAB BLOOD ORDERABLES Final Result Performing Organization Address City/[facility]/ZIP Co de Phone Number [facility] Department of Laboratories [place], [place] [id number] * Phosphorus (08/24/2019 9:33 PM STUDENT MINISTRY PASTOR) Phosphorus, pl 3.0 2.3 - 4.5 mg/dL [facility] Blood specimen (specimen) 08/24/2019 9:33 PM STUDENT MINISTRY PASTOR 08/24/2019 9:55 PM STUDENT MINISTRY PASTOR us Gato Meza MD LAB BLOOD ORDERABLES Fin al Result [facility] Department [place] [address] * Magnesium (08/24/2019 9:33 PM STUDENT MINISTRY PASTOR) Magnesium 2.0 1.4 - 2.5 mg/dL [facility] Blood specimen (specimen) 08/24/2019 9:33 PM STUDENT MINISTRY PASTOR 08/24/2019 9:55 PM STUDENT MINISTRY PASTOR us Gato Meza MD LAB BLOOD ORDERABLES Fin al Result Performing Organization Address [facility]/ZIP Co de Phone Number [facility] Department [place] [address] * Basic metabolic panel (08/24/2019 9:33 PM STUDENT MINISTRY PASTOR) Pathologist [facility] Sodium 141 135 - 145 mmol/L [facility] Potassium, pl 3.7 3.3 - 4.9 mmol/L [facility] Chloride 106 97 - 110 mmol/L [facility] CO2 30 22 - 32 mmol/L [facility] Anion gap 6 2 - 15 mmol/L [facility] BUN 8 8 - 25 mg/dL [facility] Creatinine 0.76 0.60 - 1.10 mg/dL [facility] Glucose 120 70 - 199 mg/dL [facility] Comment: Interpretive Data Fasting glucose >/= 126 [...] interpretive data was last revised 2017. Calcium 9.1 8.5 - 10.3 mg/dL [facility] Blood specimen (specimen) 08/24/2019 9:33 PM STUDENT MINISTRY PASTOR 08/24/2019 9:55 PM STUDENT MINISTRY PASTOR us Mary Anne ARANGO LAB BLOOD ORDERABLES Final Result Performing Organization Address [facility] Co de Phone Number [facility] Department [place] [address] * (ABNORMAL) CBC without differential (08/24/2019 9:33 PM STUDENT MINISTRY PASTOR) [facility] WBC 6.4 3.8 - 9.9 K/cumm [facility] Hgb 8.2(L) 11.9 - 15.5 g/dL [facility] Hct 26.9(L) 35.6 - 45.5 % [facility] Plt 266 150 - 400 K/cumm [facility] MPV 9.3 9.1 - 12.3 fL [facility] RBC 3.33(L) 3.90 - 5.20 M/cumm [facility] MCV 80.8(L) 81.3 - 96.4 fL [facility] MCH 24.6(L) 27.1 - 33.3 pg [facility] MCHC 30.5(L) 32.3 - 35.7 g/dL [facility] RDW CV 14.2 11.1 - 14.9 % [facility] RDW SD 41.1 35.7 - 48.1 fL [facility] NRBC abs 0.00 0.00 - 0.01 K/cumm [facility] Blood specimen (specimen) 08/24/2019 9:33 PM STUDENT MINISTRY PASTOR 08/24/2019 9:56 PM STUDENT MINISTRY PASTOR Mary Anne ARANGO LAB BLOOD ORDERABLES Final Result [facility] One [facility] Department [place] [address] * Comprehensive metabolic panel (08/24/2019 3:42 AM STUDENT MINISTRY PASTOR) [facility] Sodium 141 135 - 145 mmol/L [facility] Potassium, pl 4.2 3.3 - 4.9 mmol/L [facility] Chloride 106 97 - 110 mmol/L [facility] CO2 27 22 - 32 mmol/L [facility] Anion gap 8 2 - 15 mmol/L [facility] BUN 11 8 - 25 mg/dL [facility] Creatinine 0.76 0.60 - 1.10 mg/dL [facility] Glucose 120 70 - 199 mg/dL [facility] Comment: Interpretive Data Fasting glucose >/= 126 [...] interpretive data was last revised 2017. Calcium 8.9 8.5 - 10.3 mg/dL [facility] Bilirubin, total 0.2 0.1 - 1.2 mg/dL [facility] Protein, pl 6.6 6.5 - 8.5 g/dL [facility] Albumin 3.6 3.5 - 5.0 g/dL [facility] Alk phos 51 40 - 130 Units/L [facility] ALT 42 7 - 45 Units/L [facility] AST 38 10 - 45 Units/L [facility] Blood specimen (specimen) 08/24/2019 3:42 AM STUDENT MINISTRY PASTOR 08/24/2019 4:56 AM STUDENT MINISTRY PASTOR Gato Meza MD LAB BLOOD ORDERABLES Fin al Result [facility] One [facility] Department [place] [address] * (ABNORMAL) CBC without differential (08/24/2019 3:42 AM STUDENT MINISTRY PASTOR) [facility] WBC 7.0 3.8 - 9.9 K/cumm [facility] Hgb 8.8(L) 11.9 - 15.5 g/dL [facility] Hct 28.6(L) 35.6 - 45.5 % [facility] Plt 313 150 - 400 K/cumm [facility] MPV 9.7 9.1 - 12.3 fL [facility] RBC 3.54(L) 3.90 - 5.20 M/cumm [facility] MCV 80.8(L) 81.3 - 96.4 fL [facility] MCH 24.9(L) 27.1 - 33.3 pg [facility] MCHC 30.8(L) 32.3 - 35.7 g/dL [facility] RDW CV 14.0 11.1 - 14.9 % [facility] RDW SD 41.1 35.7 - 48.1 fL [facility] NRBC abs 0.00 0.00 - 0.01 K/cumm [facility] Blood specimen (specimen) 08/24/2019 3:42 AM STUDENT MINISTRY PASTOR 08/24/2019 5:37 AM STUDENT MINISTRY PASTOR us Gato Meza MD LAB BLOOD ORDERABLES Fin al Result Performing Organization Address City/State/[facility] Co de Phone Number [facility] Department [place] [address] * Surgical pathology (08/23/2019 2:04 PM STUDENT MINISTRY PASTOR) Tissue (Stomach - Subtotal / Total Resection, Tumor) 08/23/2019 2:04 PM STUDENT MINISTRY PASTOR Narrative PATHOLOGY [facility] - 08/31/2019 4:11 PM STUDENT MINISTRY PASTOR EPIC results best viewed via link to PDF [facility] [place] [address] SURGICAL PATHOLOGY REPORT FINAL Patient Name: ?? JUANJO GISBON Gender: ??F : ??1965 (Age: 54) Address: ??[address] [place] [id number] Hospital #: ??[id number] Taken:08/23/2019 Received:08/23/2019 Reported: 08/31/2019 Patient Type: [facility] Inpatient ?? Service: General Surgery Location: [place] [address] Physician(s): ??Gato Meza M.D. Diagnosis: Stomach, distal gastrectomy: ? - Well-differentiated neuroendocrine tumor (x2), < 1mm, see comment ? - Two lymph nodes without histopathologic abnormality (0/2) mxxm/08/31/2019 16:11 By this signature, I attest that the above diagnosis is based upon my personal examination of the slides(and/or other material indicated in the diagnosis). Valerie Pitt MD Report Electronically Reviewed and Signed Out By ??Valerie Pitt MD 08/31/2019 16:11:00 Microscopic Description and Comment: The specimen shows two foci of well-differentiated neuroendocrine tumors (WHO grade 1) in a background of antralized mucosa with inactive chronic gastritis, intestinal and pancreatic metaplasia, and marked nodular enterochromaffin hyperplasia. 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 The antral mucosa (most of the specimen) show mild inactive chronic gastritis. History: The patient is a 54-year-old female. Per surgery, Ms. Gibson is a 54 y.o. female with a history of gastric carcinoid who has no family history and anemia. She has atrophic gastritis on biopsies and clinically.Thus, I think she would benefit from consideration of distal gastrectomy/antrectomy to remove her gastrin source as a cause of her carcinoid. When I saw her in clinic, I recommended that a laparoscopic, possible open, distal gastrectomy (antrectomy) with Bilroth II reconstruction. Operative procedure: Distal gastrectomy Specimen(s) Received: A: Partial gastrectomy Gross Description: The specimen is received in formalin labeled with patient's name, date of , and partial gastrectomy . ??Specimen consists of a portion of stomach that has been previously opened and measures 8.3 x 7.5 x 2.1 cm. ??The external surface has been previously inked black and has attached portions of fat measuring approximately 6 x 3 x 1 cm. ??The mucosal surface demonstrates a single area of rugal firmness appearing as a putative nodule measuring approximately 0.7 cm in greatest dimension. The specimen is serially sectioned to reveal no other areas of hemorrhage, necrosis, or putative lesions. ??The attached fat is serially sectioned to demonstrate putative lymph nodes measuring up to 0.2 cm in greatest dimension. Labeled A1 - resection margins, shave; A2 to A3 ??putative nodule, entirely submitted; A4 to A5 ??area adjacent to nodule; A6 to A16 ??new accounts banking representative portions of stomach; A17 to A20 ??putative lymph nodes; A21 to A50 ??remainder of stomach. Jar 2. cab/08/28/2019 14:19 Rao Orta D.O. By this signature, I attest that the above diagnosis is based upon my personal examination of the slides(and/or other material). The performance characteristics of some immunohistochemical stains, fluorescence in-situ hybridization tests and immunophenotyping by flow cytometry cited in this report (if any) were determined by the Surgical Pathology Department at [facility] as part of an ongoing senior software quality engineer program and in compliance with federally mandated [...] ONLY VIEWABLE IN PDF VERSION OF REPORT Gato Meza MD LAB PATHOLOGY ORDERABLES Final Result PATHOLOGY [facility] 3rd Floor [place], [place] [phone] * Type and screen (08/23/2019 10:00 AM STUDENT MINISTRY PASTOR) José, indirect Negative [facility] ABO Rh B Positive [facility] Blood specimen (specimen) 08/23/2019 10:00 AM STUDENT MINISTRY PASTOR 08/23/2019 10:10 AM STUDENT MINISTRY PASTOR Narrative [facility] - 08/23/2019 11:16 AM STUDENT MINISTRY PASTOR Has the patient had Daratumumab (Darzalex) in the past 6 months?->Unknown us Luz Anaya NP LAB BLOOD BANK TEST ORDERAB LES Final Result [facility] Department [place] [address] documented in this encounter Visit Diagnoses Diagnosis Gastric carcinoma (HCC)- Primary Malignant neoplasm of stomach, unspecified site documented in this encounter Admitting Diagnoses Diagnosis Gastric carcinoma (HCC) Malignant neoplasm of stomach, unspecified site documented in this encounter Administered Medications Inactive Administered Medications - up to 3 most recent administrations Medication Order MAR Action Action Date Dose Rate Site acetaminophen (TYLENOL) tablet 1,000 mg 1,000 mg, oral, Every 6 hours scheduled, First dose on Wed08/23/19 at 2030 Given 08/26/2019 5:31 PM STUDENT MINISTRY PASTOR 1,000 mg Given 08/26/2019 11:59 AM STUDENT MINISTRY PASTOR 1,000 mg Given 08/26/2019 5:59 AM STUDENT MINISTRY PASTOR 1,000 mg buPROPion XL (WELLBUTRIN XL) 24 hour tablet 150 mg 150 mg, oral, Every morning, First dose on Dariela 08/24/19 at 0900, Do not crush, chew, cut, dissolve, open or otherwise manipulate tablet/capsule., Indications: Anxiety with DepressionIndications:Anxiety with Depression Given 08/27/2019 8:0 1 AM STUDENT MINISTRY PASTOR 150 mg Given 08/26/2019 8:25 AM STUDENT MINISTRY PASTOR 150 mg Given 08/25/2019 8:09 AM STUDENT MINISTRY PASTOR 150 mg cyanocobalamin (Vitamin B-12) injection 1,000 mcg 1,000 mcg, subcutaneous, Every 30 days, First dose on Wed08/23/19 at 1945 Given 08/24/2019 12:04 AM STUDENT MINISTRY PASTOR 1,000 mcg Right Lower Abdomen dextrose 5% and sodium chloride 0.45% infusion (premix) 100 mL/hr, intravenous, Continuous, Starting on Wed08/23/19 at 1545, For 24 hours, Phase I & Post-op Floor New Bag 08/23/2019 3:38 PM STUDENT MINISTRY PASTOR 100 mL/hr 100 mL/hr escitalopram (LEXAPRO) tablet 10 mg 10 mg, oral, Every morning, First dose on Dariela 08/24/19 at 0900, Indications: Anxiety with DepressionIndications:A nxiety with Depression Given 08/27/2019 8:01 AM STUDENT MINISTRY PASTOR 10 mg Given 08/26/2019 8:25 AM STUDENT MINISTRY PASTOR 10 mg Given 08/25/2019 8:09 AM STUDENT MINISTRY PASTOR 10 mg gabapentin (NEURONTIN) capsule 300 mg 300 mg, oral, 3 times daily, First dose on Dariela 08/24/19 at 0900 Given 08/27/2019 8:01 AM STUDENT MINISTRY PASTOR 300 mg Given 08/26/2019 8:54 PM STUDENT MINISTRY PASTOR 300 mg Given 08/26/2019 4:12 PM STUDENT MINISTRY PASTOR 300 mg heparin 5,000 unit/mL injection 5,000 Units 5,000 Units, subcutaneous, Every 8 hours scheduled, First dose on Wed08/23/19 at 2200, Indications: Deep Vein Thrombosis PreventionIndications:Deep Vein Thrombosis Prevention Given 08/26/2019 1:54 PM STUDENT MINISTRY PASTOR 5,000 Units Right Upper Abdomen Given 08/26/2019 5:59 AM STUDENT MINISTRY PASTOR 5,000 Units L eft Lower Abdomen Given 08/25/2019 9:07 PM STUDENT MINISTRY PASTOR 5,000 Units L eft Lower Abdomen hydroCHLOROthiazide (HYDRODIURIL) tablet 12.5 mg 12.5 mg, oral, Daily, First dose on Dariela 08/24/19 at 0900 Given 08/27/2019 8:01 AM STUDENT MINISTRY PASTOR 12.5 mg Given 08/26/2019 8:25 AM STUDENT MINISTRY PASTOR 12.5 mg Given 08/25/2019 8:09 AM STUDENT MINISTRY PASTOR 12.5 mg HYDROmorphone (DILAUDID) injection 0.4 mg 0.4 mg, intravenous, Administer over 2 Minutes, Every 10 min PRN, 1st line for pain, Starting on Wed08/23/19 at 1457, Phase I, Notify Anesthesiologist if total PACU dose reaches 2 mg and pain score 5/10 or more., Indications: PainIndications:Pain Given 08/23/2019 3:30 PM STUDENT MINISTRY PASTOR 0.4 mg Given 08/23/2019 3:14 PM STUDENT MINISTRY PASTOR 0.4 mg hydroxychloroquine (PLAQUENIL) tablet 200 mg 200 mg, oral, Every morning, First dose on Dariela 08/24/19 at 0900, Indications: ArthritisIndications:Arthritis Given 08/27/2019 8:01 AM STUDENT MINISTRY PASTOR 200 mg Given 08/26/2019 8:25 AM STUDENT MINISTRY PASTOR 200 mg Given 08/25/2019 8:09 AM STUDENT MINISTRY PASTOR 200 mg Lactated Ringer's (LR) infusion 30 mL/hr, intravenous, Continuous, Starting on Wed08/23/19 at 1000, Pre-Op New Bag 08/23/2019 11:36 AM STUDENT MINISTRY PASTOR New Bag 08/23/2019 9:51 AM STUDENT MINISTRY PASTOR 30 mL/hr 30 mL/hr losartan (COZAAR) tablet 50 mg 50 mg, oral, Daily, First dose on Dariela 08/24/19 at 0900 Given 08/27/2019 8:01 AM STUDENT MINISTRY PASTOR 50 mg Given 08/26/2019 8:25 AM STUDENT MINISTRY PASTOR 50 mg Given 08/25/2019 8:09 AM STUDENT MINISTRY PASTOR 50 mg ondansetron ODT (ZOFRAN-ODT) disintegrating tablet 4 mg 4 mg, oral, Every 4 hours PRN, nausea, vomiting, Starting on Dariela 08/24/19 at 0731 oxyCODONE (ROXICODONE) tablet 5 mg 5 mg, oral, Every 4 hours PRN, 2nd line for pain, Starting on Wed08/23/19 at 1953, Indications: PainIndications:Pain Given 08/25/2019 9:07 PM STUDENT MINISTRY PASTOR 5 mg Given 08/25/2019 12:30 AM STUDENT MINISTRY PASTOR 5 mg Given 08/24/2019 4:21 PM STUDENT MINISTRY PASTOR 5 mg polyethylene glycol (MIRALAX) packet 17 g 17 g, oral, Daily, First dose on Dariela 08/24/19 at 0900, Indications: constipationIndications:constipation Given 08/27/2019 8:01 AM STUDENT MINISTRY PASTOR 17 g Given 08/26/2019 8:25 AM STUDENT MINISTRY PASTOR 17 g Given 08/25/2019 8:09 AM STUDENT MINISTRY PASTOR 17 g pravastatin (PRAVACHOL) tablet 40 mg 40 mg, oral, Every morning, First dose on Dariela 08/24/19 at 0900, Indications: hyperlipidemiaIndications:hyperlipidemia Given 08/27/2019 8:01 AM STUDENT MINISTRY PASTOR 40 mg Given 08/26/2019 8:25 AM STUDENT MINISTRY PASTOR 40 mg Given 08/25/2019 8:09 AM STUDENT MINISTRY PASTOR 40 mg simethicone (MYLICON) chewable tablet 80 mg 80 mg, oral, 3 times daily PRN, other, gas, Starting on Wed08/23/19 at 2353 Given 08/24/2019 12:04 AM STUDENT MINISTRY PASTOR 80 mg documented in this encounter Active and Recently Administered Medications Times are shown in STUDENT MINISTRY PASTOR. Scheduled Medication Order 08/25/2019 08/26/2019 08/27/2019 acetaminophen (TYLENOL) tablet 1,000 mg 1,000 mg, oral, Every 6 hours scheduled, First dose on Wed08/23/19 at 2030 0030 (Given - Provider: Luz Valera, BYRON)0514 (Not Given - Provider: Luz Valera RN - Reason: Order parameters not met - Comment: max dose in 24 hrs)1152 (Given - Provider: Robert Castillo RN)1735 (Given - Provider: Anni Khan)2359 (Given - Provider: Faina Ashby RN) 0559 (Given - Provider: Faina Ashby, RN)1159 (Given - Provider: Alexandria Steele RN)1731 (Given - Provider: Alexandria Steele RN)2349 (Not Given - Provider: Faina Ashby RN - Reason: Other) 0557 (Not Given - Provider: Faina Ashby RN - Reason: Patient/family refused) buPROPion XL (WELLBUTRIN XL) 24 hour tablet 150 mg 150 mg, oral, Every morning, First dose on Wed08/24/19 at 0900, Do not crush, chew, cut, dissolve, open or otherwise manipulate tablet/capsule., Indications: Anxiety with Depression 0809 (Given - Provider: Robert Castillo RN) 0825 (Given - Provider: Alexandria Steele RN) 0801 (Given - Provider: Alexandria Steele RN) cyanocobalamin (Vitamin B-12) injection 1,000 mcg 1,000 mcg, subcutaneous, Every 30 days, First dose on Wed08/23/19 at 1945 escitalopram (LEXAPRO) tablet 10 mg 10 mg, oral, Every morning, First dose on Wed08/24/19 at 0900, Indications: Anxiety with Depression 0809 (Given - Provider: Robert Castillo RN) 0825 (Given - Provider: Alexandria Steele RN) 0801 (Given - Provider: Alexandria Steele RN) gabapentin (NEURONTIN) capsule 300 mg 300 mg, oral, 3 times daily, First dose on Wed08/24/19 at 0900 0810 (Given - Provider: Robert Castillo RN)1621 (Given - Provider: Anni Khan)2107 (Given - Provider: Faina Ashby RN) 0825 (Given - Provider: Alexandria Steele RN)161 (Given - Provider: Alexandria Steele RN)2053 (Given - Provider: Faina Ashby RN) 08 (Given - Provider: Alexandria Steele RN) heparin 5,000 unit/mL injection 5,000 Units 5,000 Units, subcutaneous, Every 8 hours scheduled, First dose on Wed08/23/19 at 2200, Indications: Deep Vein Thrombosis Prevention 0518 (Given - Provider: Luz Valera RN)1421 (Given - Provider: Robert Castillo RN)2106 (Given - Provider: Faina Ashby RN) 0559 (Given - Provider: Faina Ashby RN)1354 (Given - Provider: Alexandria Steele RN)2041 (Not Given - Provider: Faina Ashby RN - Reason: Other) 0518 (Not Given - Provider: Faina Ashby RN - Reason: Other) hydroCHLOROthiazide (HYDRODIURIL) tablet 12.5 mg(Linked Group 1) 12.5 mg, oral, Daily, First dose on Wed08/24/19 at 0900 0809 (Given - Provider: Robert Castillo RN) 0825 (Given - Provider: Alexandria Steele RN) 08 (Given - Provider: Alexandria Steele RN) hydroxychloroquine (PLAQUENIL) tablet 200 mg 200 mg, oral, Every morning, First dose on Wed08/24/19 at 0900, Indications: Arthritis 0809 (Given - Provider: Robert Castillo RN) 08 (Given - Provider: Alexandria Steele RN) 08 (Given - Provider: Alexandria Steele RN) losartan (COZAAR) tablet 50 mg(Linked Group 1) 50 mg, oral, Daily, First dose on Wed08/24/19 at 0900 0809 (Given - Provider: Robert Castillo RN) 0825 (Given - Provider: Alexandria Steele RN) 08 (Given - Provider: Alexandria Steele RN) polyethylene glycol (MIRALAX) packet 17 g 17 g, oral, Daily, First dose on Wed08/24/19 at 0900, Indications: constipation 0809 (Given - Provider: Robert Castillo RN) 0825 (Given - Provider: Alexandria Steele, BYRON) 08 (Given - Provider: Alexandria Steele, BYRON) pravastatin (PRAVACHOL) tablet 40 mg 40 mg, oral, Every morning, First dose on Wed08/24/19 at 0900, Indications: hyperlipidemia 0809 (Given - Provider: Robert Castillo RN) 0825 (Given - Provider: Alexandria Steele, [place]) 08 (Given - Provider: Alexandria Steele RN) PRN Medication Order 08/25/2019 08/26/2019 08/27/2019 ondansetron ODT (ZOFRAN-ODT) disintegrating tablet 4 mg 4 mg, oral, Every 4 hours PRN, nausea, vomiting, Starting on Wed08/24/19 at 0731 oxyCODONE (ROXICODONE) tablet 5 mg 5 mg, oral, Every 4 hours PRN, 2nd line for pain, Starting on Wed08/23/19 at 1953, Indications: Pain 0030 (Given - Provider: Luz Valera RN)210 (Given - Provider: Faina Ashby RN) simethicone (MYLICON) chewable tablet 80 mg 80 mg, oral, 3 times daily PRN, other, gas, Starting on Wed08/23/19 at 2353 Linked Groups Order Group 1: losartan (COZAAR) tablet 50 mgJump to med 50 mg, oral, Daily, First dose on Wed08/24/19 at 0900 And hydroCHLOROthiazide (HYDRODIURIL) tablet 12.5 mgJump to med 12.5 mg, oral, Daily, First dose on Wed08/24/19 at 0900 documented in this encounter Orders Medications Ordered That Anthony ht Not Have Been Administered Count Last Ordered Date First Ordered Date ondansetron ODT (ZOFRAN-ODT) disintegrating tablet 4 mg 1 08/24/2019 cefOXitin (MEFOXITIN) 2,000 mg/20 mL in sterile water (premix) 2,000 mg 1 08/23/2019 dexAMETHasone (DECADRON) 4 m g, bupivacaine (MARCAINE) 60 mL solution 1 08/23/2019 diphenhydrAMINE (BENADRYL) i njection 12.5 mg 1 08/23/2019 fentaNYL (SUBLIMAZE) preserv ative free injection 50 mcg 1 08/23/2019 losartan-hydroCHLOROthiazide (HYZAAR) 50-12.5 mg per tablet 1 tablet 1 08/23/2019 meperidine (DEMEROL) preserv ative free injection 12.5 mg 1 08/23/2019 naloxone (NARCAN) 0.4 mg/mL injection 0.04-0.4 mg 1 08/23/2019 ondansetron (ZOFRAN) injection 4 mg 1 08/23 prochlorperazine (COMPAZINE) injection 10 mg 1 08/23/2019 sodium chloride 0.9 % irrigation 1 08/23/20 19 sodium chloride 0.9% flush 0.5-20 mL 1 03/2019 sterile water irrigation 1 08/23/2019 acetaminophen (TYLENOL) tablet 1,000 mg 1 1 10/22/2018 gabapentin (NEURONTIN) capsule 300 mg 1 02/2019 heparin 5,000 unit/mL inject ion 5,000 Units 1 08/22/2019 Lab Orders Without Results Count Last Ordered D ate First Ordered Date MAGNESIUM 1 08/25/2019 PHOSPHORUS 1 08/25/2019 Consult Count Last Ordered Date First Orde red Date IP CONSULT TO NUTRITION SERVICES 2 08/25/20 19 08/23/2019 documented in this encounter Care Teams [employer] Relationship Specialty Start Date End Date Barbra Goddard PA PCP - General Physician Help Aid 01/22/19 12/05/19 Luann Lawrence NP Nurse Practitioner Nurse Practitioner 01/06/19 Adarsh Tuttle MD [address] [facility] [address] [place] [address] Consulting Physician Gastroenterology 02/22/19 Sebastien Martinez DO [address] [address] Medical Oncologist/Coremaker Supervisor Hematology and Oncology 02/22/19 Guru Winters DO [address] [address] Consulting Physician Gastroenterology 02/22/19 documented as of this encounter
--- OUTSIDE RECORDS SUMMARY | 2024-10-04 03:06 | XMS_ITS | Encounter Summary ---
Author Organization [facility] Healthcare Address [address] [place] [address] Care Team Providers Care Abalone Sheller Name Role Phone Luann Lawrence NP Unavailable [phone] Barbra Goddard Primary Care Pr ovider Adarsh Tuttle MD Unavailable [phone] Sebastien Martinez DO Unavailable [phone] Guru Winters DO Unavailable [phone] Encounter Details Date Type Department Care Team (Late st Contact Info) Description 08/23/2019 10:35 AM CLIENT SERVICE SUPERVISOR - 08/23/2019 3:05 PM CLIENT SERVICE SUPERVISOR Surgery [facility] Operating Room [address] [place] [address] Gato Meza MD [address] [facility] [phone] [place] [address] LAPAROSCOPIC DISTAL GASTRECTOMY, BILROTH II RECONSTRUCTION Surgery Details Date/Time Status Location OR Service Patient Class Case Class Case Type Trauma Case? 08/23/2019 10:35 AM Posted [facility] OR POD 5 227 Hepatobiliary Surgery Admit Elective Panel 1 Procedure LRB Anes Op Region Wound Class Comments LAPAROSCOPIC DISTAL GASTRECTOMY, BILROTH II RECONSTRUCTION N/A General Abdomen Class II - Clean Contaminated Transversus Abdominis Plane Block [facility] [address] Bilateral Class I - Clean Surgeon Surgeon Role Service Panel Gato Meza MD Primary Hepatobiliary 1 Yordan Cagle MD Hepatobiliary 1 Yair Valencia MD Resident - Assisting [facility] Surgery 1 Case Notes 08/22: pt line-up per Maday (lb)Case moved to third case to accommodate Dr. Bateman first case per Leann. SR 08/14@0927Case moved to second case per Maday via email. 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 Not on mikie e documented as of this encounter Last Filed Vital Signs Vital Sign Reading Time Taken Comments Blood Pressure 159/76 08/23/2019 3:05 PM CLIENT SERVICE SUPERVISOR Pulse 64 08/23/2019 3:05 PM CLIENT SERVICE SUPERVISOR Temperature 36.9 ??C (98.4 ??F) 08/23/2019 3:00 PM CS T Respiratory Rate 13 08/23/2019 3:05 PM CLIENT SERVICE SUPERVISOR Oxygen Saturation 94% 08/23/2019 3:05 PM CLIENT SERVICE SUPERVISOR Inhaled Oxygen Concentration - - Weight 71.7 kg (158 lb) 08/23/2019 9:27 AM CLIENT SERVICE SUPERVISOR Height - - Body Mass Index 28.87 08/23/2019 5:16 PM CLIENT SERVICE SUPERVISOR documented in this encounter Discharge Summaries * Sara Farrell PA - 08/27/2019 9:47 AM CST Inpatient Discharge Summary BRIEF OVERVIEW Admitting Provider: Gato Meza MD Discharge Provider: Gato Meza MD Primary Care Physician at Discharge: NBA Ward [phone] Admission Date: 08/23/2019 Discharge Date: 08/27/19 4 [...] involved. ??I rubi several pictures and provided ??with literature and several websites to obtain more [...] BILROTH II RECONSTRUCTION Transversus Abdominis Plane Block [facility] [address] Other Procedures: Pertinent Test Results: Lab Results [...] as Ensure/Boost/Glucerna or equivalent (see handoutgiven by duplicator punch set up operator). ! Activity * No lifting greater than [...] on WednesdaySeptember 18 at 1:45pm n the [facility] ([facility]), [address] [place] [address]. Please call for questions or concerns. * [...] Provider Department Center 09/08/2019 8:45 AM Sebastien Martinez DO [facility] On[facility] 09/18/2019 1:45 PM Gato Meza MD HPB CAM 8C REILLY Cosigned by Gato Meza MD at 08/27/2019 5:47 PM CLIENT SERVICE SUPERVISOR NT SERVICE SUPERVISOR NT SERVICE SUPERVISOR documented in this encounter Discharge Instructions * Discharge Instructions* Sara Farrell PA - 08/27/2019 9:51 AM CLIENT SERVICE SUPERVISOR ! Call Your Doctor If Call if [...] as Ensure/Boost/Glucerna or equivalent (see handoutgiven by duplicator punch set up operator). ! Activity * No lifting greater than [...] on WednesdaySeptember 18 at 1:45pm n the [facility] ([facility]), [address] [place] [address] - [address] [place] [address]. Please call for questions or concerns. * [...] options (chemotherapy, radiation) at your followup appointment. 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 cyanocobalamin (Vitamin B-12) injection 1,000 mcg, [...] Camilo Chaparro MD at 08/27/2019 11:37 AM CLIENT SERVICE SUPERVISOR NT SERVICE SUPERVISOR NT SERVICE SUPERVISOR * John Cash MD PhD - 08/26/2019 [...] Heparin, ambulation, IS John Cash MD PhD [phone] 08/26/201912:37 PM Cosigned by Camilo Chaparro MD at 08/26/2019 12:44 PM CLIENT SERVICE SUPERVISOR NT SERVICE SUPERVISOR NT SERVICE SUPERVISOR * John Cash MD PhD - 08/25/2019 [...] 300 mg, oral, TID, 300 mg at 08/25/19 0810 ??? heparin 5,000 unit/mL injection 5,000 Units, 5,000 Units, subcutaneous, Q8H JSESICA, 5,000 Units at110/25/18 0518 ??? losartan (COZAAR) [...] mg, oral, Q4H PRN, 5 mg at 08/25/1929 ??? polyethylene glycol (MIRALAX) packet 17 g, 17 g, oral, Daily, 17 g at 08/25/19808 ??? pravastatin (PRAVACHOL) tablet 40 mg, 40 mg, oral, QAM, 40 mg at 08/25/19808 ??? simethicone (MYLICON) chewable tablet 80 mg, [...] Heparin, ambulation, IS John Cash MD PhD [phone] 08/25/201910:40 AM Cosigned by Gato Meza MD at 08/25/2019 11:20 AM CLIENT SERVICE SUPERVISOR NT SERVICE SUPERVISOR NT SERVICE SUPERVISOR NT SERVICE SUPERVISOR * Hardy Barrera RN - 08/24/2019 11:24 [...] have Home Health. Patient stated she uses [facility] pharmacy in [place], [place]. Patient stated she would have transportation home per family. Chart reviewed for potential discharge needs. Information obtained from: Chart and patient/family: Per NBA Note, 08/24/19: Ms. Juanjo Gibson is a 54 y.o. year old female with a history of well- differentiated gastric carcinoid tumor and atrophic gastritis who is status post laparoscopic distal gastrectomy with Billroth II gastrojejunostomy reconstruction. Insurance verified as: [facility] Choice Prescription coverage: Yes Admission Source: [...] Collaboration with patient/spouse, MD, direct care nurse, Veterinary Attendant, and other members of the health care team to assure needed interventions completed. 2. Return patient to baseline post discharge. 3. Insulation Nozzleman will follow along with SW for Discharge [...] agreement with the aftercare plan. 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 Recent Interventions: - None Assessment/Plan 1. Gastric carcinoid/atrophic gastritis - Advance diet as tolerated - Pain control: Tylenol, Gabapentin, Oxycodone PRN - Bowel regimen - D/C ledezma, void check in 6 hours - Continue to monitor labs, vitals, and I&Os - Antiemetics: Zofran PRN - Ambulate TID - Prophylactic: SCD, SQ Heparin, ambulation, IS Crystal Peggy Lundy PA-C [phone] 08/24/20197:26 AM NT SERVICE SUPERVISOR * Bjorn Jones MD - 08/23/2019 5:25 [...] Gato Meza MD at 08/24/2019 8:01 AM CLIENT SERVICE SUPERVISOR NT SERVICE SUPERVISOR NT SERVICE SUPERVISOR documented in this encounter H&P Notes * Yordan Cagle MD - 08/23/2019 10:38 AM CST I have reviewed the H&P, examined the patient, and endorse the findings as written. Plan of Care : Based on the above findings, I consider Juanjo L Gibson to be an acceptable risk for : Procedure(s): LAPAROSCOPIC DISTAL GASTRECTOMY, BILROTH II RECONSTRUCTION DISTAL GASTRECTOMY Cosigned by Gato Meza MD at 08/23/2019 10:56 AM CLIENT SERVICE SUPERVISOR NT SERVICE SUPERVISOR NT SERVICE SUPERVISOR Source Note - Paulina Conn NP - 07/26/2019 11:41 AM CDT Images from the original note were not included. Center for Preoperative Assessment and Planning Preoperative Evaluation Record CPAP Clinic at [facility] ([facility]) Date: 07/26/19 Anesthesia Evaluation Juanjo Gibson is [...] 71 + Hyperlipidemia Pertinent negatives: CAD ; UT ; CABG ; atrial fibrillation; arrhythmia; pacemaker/ICD; [...] DISTAL GASTRECTOMY, BILROTH II RECONSTRUCTION DISTAL GASTRECTOMY NT SERVICE SUPERVISOR Source Note - Paulina Conn ANUP Erwin - 07/26/2019 11:41 AM CDT Images from the original note were not included. Center for Preoperative Assessment and Planning Preoperative Evaluation Record CPAP Clinic at [facility] ([facility]) Date: 07/26/19 Anesthesia Evaluation Juanjo Gibson is [...] 71 + Hyperlipidemia Pertinent negatives: CAD ; UT ; CABG ; atrial fibrillation; arrhythmia; pacemaker/ICD; [...] in this encounter Consult Notes * Art Londono, KARENA - 08/25/2019 2:01 PM CSTAssociated Order(s): IP [...] of Weight Used for Estimated Protein : [place] Protein Needs Based on g/k.3 Total Protein [...] Select Supplement: Answer: Boost Plus - Paul 08/25/1972508/25/19725 Adult Diet GI Diets; Post Gastrectomy Diet effective now Question Answer Comment ([facility]) Diet type GI Diets GI: Post Gastrectomy 08/25/19724 Impression: 08/24 Pt reports she normally eats [...] Plan of care Art Londono RD CDE [phone]. Weekends [phone] NT SERVICE SUPERVISOR * Art Londono RD - 08/24/2019 10:55 AM CSTAssociated Order(s): IP CONSULT TO NUTRITION SERVICES Nutrition Assessment Reason for Assessment: Initial Nutrition Assessment, Consult/Referral and Diet Education Encounter Date: 08/24/19 10:55 AM Patient is a 54 y.o. [...] of Weight Used for Estimated Protein : [place] Protein Needs Based on g/k.3 Total Protein [...] 100 mL/hr, Last Rate: 100 mL/hr (08/23/19 1538) PRN Meds: ondansetron ODT ??? oxyCODONE ??? [...] Dietary Orders (From admission, onward) Start Ordered 08/24/19 0708 Adult Diet Clear Liquid Diet effective now Question: (BJ) Diet type Answer: Clear Liquid 08/24/19706 Impression: [...] Plan of care Art Londono RD CDE [phone]. Weekends [phone] NT SERVICE SUPERVISOR documented in this encounter Miscellaneous Notes * [...] the Shift: monitor vitals and labs Summary: NT SERVICE SUPERVISOR * Jonathan of Beth - Faina Ashby RN - 08/26/2019 10:05 [...] health care needs will improve Outcome: Progressing NT SERVICE SUPERVISOR * Jonathan of Beth - Alexandria Steele RN - [...] Shift: monitor labs, vitals, pain management Summary: NT SERVICE SUPERVISOR * Jonathan of Beth - Faina Ashby RN - 08/25/2019 9:37 [...] health care needs will improve Outcome: Progressing NT SERVICE SUPERVISOR * Jonathan of Robert Virk RN - 08/25/2019 9:33 AM CST Goals: Clinical Goals for the Shift: Patient to remain updated on all plans of care, goals, treatments andprocedures throughout the day Summary: patient updated on plan of care and goals for the day. Patient able to verbalize understanding of presented information. Will cont to monitor NT SERVICE SUPERVISOR * Plan of Care - Luz Valera [...] care needs will improve Outcome: Progressing Summary: NT SERVICE SUPERVISOR * Plan of Care - Liz Vincent RN - 08/24/2019 9:18 AM CST Goals: Stable post-op, monitor VS, labs. Summary: Tolerating clear liquids, adequate pain control. Seen by PT/OT. Free from injury, call light within reach. NT SERVICE SUPERVISOR * Plan of Care - Jeanette Jaffe RN - 08/24/2019 12:35 AM CLIENT SERVICE SUPERVISOR Goals: Pain control Summary: Problem: Health Behavior: [...] health care needs will improve Outcome: Progressing NT SERVICE SUPERVISOR * Plan of Care - Domonique Deleon RN - 08/23/2019 6:22 PM CST Goals: Summary: progressing toward goals, cont to monitor NT SERVICE SUPERVISOR * Op Note - Gato Meza MD - 08/23/2019 12:38 PM CST Images from the original note were not included. OPERATIVE NOTE PRE-OPERATIVE DIAGNOSIS: Atrophic gastritis, well-differentiated gastric carcinoid tumors, hyper-gastrin state. POST-OPERATIVE DIAGNOSIS: Atrophic gastritis, well-differentiated gastric carcinoid tumors, hyper-gastrin state. SURGEON: Gato Meza M.D. FIRST COMMERCIAL SEWING INSTRUCTOR: Yordan Cagle M.D. ANESTHESIA: General endotracheal. NAME [...] was closed with multiple interrupted 0 Vicryl wegudq-oh-nzudl sutures. A tap block was performed for [...] M.D., F.A.C.S. Chief, Section of Surgical Oncology [facility] [employer] [facility] - voice - fax USPS Mailing Address: Overnight Mailing Address: [address] [place] [address] [place] [address], [address] [place], [place] [address] [place], [place] [address] NT SERVICE SUPERVISOR * Brief Op Note - Yordan Cagle MD - 08/23/2019 12:38 PM CST Operative Progress Note Surgical Team: Surgeon(s) and Role: * Gato Meza MD - Primary * Yair Valencia MD - Resident - Assisting * Yordan Cagle MD No anesthesia staff entered. Curator Herbarium: Christoph Parker RN Curator Herbarium Relief: Sonya Nielsen RN; Tosin Kim RN Scrub Relief: Anny Guo RN Scrub: ST Bianca; Sonya Nielsen RN; Tosin Kim RN DATE OF SURGERY : 08/23/2019 Preoperative Diagnosis: Pre-op Diagnosis * Gastric carcinoma (CMS/HCC) [C16.9] Postoperative Diagnosis: Post-op Diagnosis * Gastric carcinoma (CMS/HCC) [C16.9] Procedure(s): Procedure(s) (LRB): LAPAROSCOPIC DISTAL GASTRECTOMY, BILROTH II RECONSTRUCTION (N/A) Transversus Abdominis Plane Block [facility] [address] (Bilateral) Operative Findings: No overt metastatic disease. [...] Gato Meza MD at 08/23/2019 2:53 PM CLIENT SERVICE SUPERVISOR NT SERVICE SUPERVISOR NT SERVICE SUPERVISOR documented in this encounter Plan of Treatment Not on file documented as of this encounter Procedures Procedure Name Priority Date/Time Associated Diagnosis Comments CBC WITHOUT DIFFERENTIAL Routine 08/26/2019 8:59 PM CLIENT SERVICE SUPERVISOR BASIC METABOLIC PANEL Routine 08/26/2019 8:59 PM CLIENT SERVICE SUPERVISOR CBC WITHOUT DIFFERENTIAL Routine 08/25/2019 9:12 PM CLIENT SERVICE SUPERVISOR BASIC METABOLIC PANEL Routine 08/25/2019 9:12 PM CLIENT SERVICE SUPERVISOR CBC WITHOUT DIFFERENTIAL Routine 08/24/2019 9:33 PM CLIENT SERVICE SUPERVISOR PHOSPHORUS Routine 08/24/2019 9:33 PM CLIENT SERVICE SUPERVISOR MAGNESIUM Routine 08/24/2019 9:33 PM CLIENT SERVICE SUPERVISOR BASIC METABOLIC PANEL Routine 08/24/2019 9:33 PM CLIENT SERVICE SUPERVISOR CBC WITHOUT DIFFERENTIAL Routine 08/24/2019 3:42 AM CLIENT SERVICE SUPERVISOR COMPREHENSIVE METABOLIC PANEL Routine 08/24/2019 3:42 AM CLIENT SERVICE SUPERVISOR SURGICAL PATHOLOGY Routine 08/23/2019 2: 04 PM CLIENT SERVICE SUPERVISOR Gastric carcinoma (CMS/HCC) TRANSVERSUS ABDOMINIS PLANE BLOCK [facility] [id number] 08/23/2019 11:57 AM CLIENT SERVICE SUPERVISOR Gastric carcinoma (CMS/HCC) Case Notes 08/22: pt line-up per Maday (lb)Case moved to third case to accommodate Dr. Bateman first case per Leann. SR 08/14@09Case moved to second case per Maday via email. SR 08/02@131 LAPAROSCOPIC GASTRECTOMY 08/23/2019 11:57 AM CLIENT SERVICE SUPERVISOR Gastric carcinoma (CMS/HCC) Case Notes 08/22: pt line-up per Maday (lb)Case moved to third case to accommodate Dr. Bateman first case per Leann. SR 08/14@926Case moved to second case per Maday via email. SR 08/02@1315 TYPE AND SCREEN STAT 08/23/2019 10:00 AM CLIENT SERVICE SUPERVISOR documented in this encounter Results * Basic metabolic panel (08/26/2019 8:59 PM CLIENT SERVICE SUPERVISOR) Sodium 140 135 - 145 mmol/L [facility] Potassium, pl 4.1 3.3 - 4.9 mmol/L [facility] Chloride 103 97 - 110 mmol/L [facility] CO2 27 22 - 32 mmol/L [facility] Anion gap 10 2 - 15 mmol/L [facility] BUN 16 8 - 25 mg/dL [facility] Creatinine 0.79 0.60 - 1.10 mg/dL [facility] Glucose 106 70 - 199 mg/dL [facility] Comment: Interpretive Data Fasting glucose >/= [...] 2017. Calcium 9.5 8.5 - 10.3 mg/dL [facility] Blood specimen (specimen) 08/26/2019 8:59 PM CLIENT SERVICE SUPERVISOR 08/26/2019 9:18 PM CLIENT SERVICE SUPERVISOR us Mary Anne ARANGO LAB BLOOD ORDERABLES Final Result [facility] Department [place] [address] * (ABNORMAL) CBC without differential (08/26/2019 8:59 PM CLIENT SERVICE SUPERVISOR) Pathologist [facility] WBC 5.3 3.8 - 9.9 K/cumm [facility] Hgb 8.8(L) 11.9 - 15.5 g/dL [facility] Hct 28.1(L) 35.6 - 45.5 % [facility] Plt 299 150 - 400 K/cumm [facility] MPV 9.3 9.1 - 12.3 fL [facility] RBC 3.54(L) 3.90 - 5.20 M/cumm [facility] MCV 79.4(L) 81.3 - 96.4 fL [facility] MCH 24.9(L) 27.1 - 33.3 pg [facility] MCHC 31.3(L) 32.3 - 35.7 g/dL [facility] RDW CV 13.5 11.1 - 14.9 % [facility] RDW SD 39.2 35.7 - 48.1 fL [facility] NRBC abs 0.00 0.00 - 0.01 K/cumm [facility] Blood specimen (specimen) 08/26/2019 8:59 PM CLIENT SERVICE SUPERVISOR 08/26/2019 9:18 PM CLIENT SERVICE SUPERVISOR us Mary Anne ARANGO LAB BLOOD ORDERABLES Final Result Performing Organization Address City/[facility]/ZIP Co de Phone Number [facility] Department [place] [address] * Basic metabolic panel (08/25/2019 9:12 PM CLIENT SERVICE SUPERVISOR) [facility] Sodium 140 135 - 145 mmol/L [facility] Potassium, pl 3.9 3.3 - 4.9 mmol/L [facility] Chloride 103 97 - 110 mmol/L [facility] CO2 27 22 - 32 mmol/L [facility] Anion gap 10 2 - 15 mmol/L [facility] BUN 12 8 - 25 mg/dL [facility] Creatinine 0.84 0.60 - 1.10 mg/dL [facility] Glucose 98 70 - 199 mg/dL [facility] Comment: Interpretive Data Fasting glucose >/= [...] 2017. Calcium 8.9 8.5 - 10.3 mg/dL [facility] Blood specimen (specimen) 08/25/2019 9:12 PM CLIENT SERVICE SUPERVISOR 08/25/2019 9:20 PM CLIENT SERVICE SUPERVISOR Mary Anne ARANGO LAB BLOOD ORDERABLES Final Result [facility] Department [place] [address] * (ABNORMAL) CBC without differential (08/25/2019 9:12 PM CLIENT SERVICE SUPERVISOR) [facility] WBC 6.0 3.8 - 9.9 K/cumm [facility] Hgb 9.0(L) 11.9 - 15.5 g/dL [facility] Hct 28.2(L) 35.6 - 45.5 % [facility] Plt 291 150 - 400 K/cumm [facility] MPV 9.0(L) 9.1 - 12.3 fL [facility] RBC 3.50(L) 3.90 - 5.20 M/cumm [facility] MCV 80.6(L) 81.3 - 96.4 fL [facility] MCH 25.7(L) 27.1 - 33.3 pg [facility] MCHC 31.9(L) 32.3 - 35.7 g/dL [facility] RDW CV 13.9 11.1 - 14.9 % [facility] RDW SD 40.3 35.7 - 48.1 fL [facility] NRBC abs 0.00 0.00 - 0.01 K/cumm [facility] Blood specimen (specimen) 08/25/2019 9:12 PM CLIENT SERVICE SUPERVISOR 08/25/2019 9:20 PM CLIENT SERVICE SUPERVISOR us Mary Anne ARANGO LAB BLOOD ORDERABLES Final Result [facility] Department [place] [address] * Phosphorus (08/24/2019 9:33 PM CLIENT SERVICE SUPERVISOR) Phosphorus, pl 3.0 2.3 - 4.5 mg/dL [facility] Blood specimen (specimen) 08/24/2019 9:33 PM CLIENT SERVICE SUPERVISOR 08/24/2019 9:55 PM CLIENT SERVICE SUPERVISOR us Gato Meza MD LAB BLOOD ORDERABLES Fin al Result [facility] [place] [address] * Magnesium (08/24/2019 9:33 PM CLIENT SERVICE SUPERVISOR) Magnesium 2.0 1.4 - 2.5 mg/dL [facility] Blood specimen (specimen) 08/24/2019 9:33 PM CLIENT SERVICE SUPERVISOR 08/24/2019 9:55 PM CLIENT SERVICE SUPERVISOR us Gato Meza MD LAB BLOOD ORDERABLES Fin al Result Performing Organization Address City/[facility]/ZIP Co de Phone Number [facility] Department [place] [address] * Basic metabolic panel (08/24/2019 9:33 PM CLIENT SERVICE SUPERVISOR) Pathologist [facility] Sodium 141 135 - 145 mmol/L [facility] Potassium, pl 3.7 3.3 - 4.9 mmol/L [facility] Chloride 106 97 - 110 mmol/L [facility] CO2 30 22 - 32 mmol/L [facility] Anion gap 6 2 - 15 mmol/L [facility] BUN 8 8 - 25 mg/dL [facility] Creatinine 0.76 0.60 - 1.10 mg/dL [facility] Glucose 120 70 - 199 mg/dL [facility] Comment: Interpretive Data Fasting glucose >/= [...] 2017. Calcium 9.1 8.5 - 10.3 mg/dL [facility] Blood specimen (specimen) 08/24/2019 9:33 PM CLIENT SERVICE SUPERVISOR 08/24/2019 9:55 PM CLIENT SERVICE SUPERVISOR us Mary Anne ARANGO LAB BLOOD ORDERABLES Final Result Performing Organization Address [facility]/ZIP Co de Phone Number [facility] Department [place] [address] * (ABNORMAL) CBC without differential (08/24/2019 9:33 PM CLIENT SERVICE SUPERVISOR) Pathologist [facility] WBC 6.4 3.8 - 9.9 K/cumm [facility] Hgb 8.2(L) 11.9 - 15.5 g/dL [facility] Hct 26.9(L) 35.6 - 45.5 % [facility] Plt 266 150 - 400 K/cumm [facility] MPV 9.3 9.1 - 12.3 fL [facility] RBC 3.33(L) 3.90 - 5.20 M/cumm [facility] MCV 80.8(L) 81.3 - 96.4 fL [facility] MCH 24.6(L) 27.1 - 33.3 pg [facility] MCHC 30.5(L) 32.3 - 35.7 g/dL [facility] RDW CV 14.2 11.1 - 14.9 % [facility] RDW SD 41.1 35.7 - 48.1 fL [facility] NRBC abs 0.00 0.00 - 0.01 K/cumm [facility] Blood specimen (specimen) 08/24/2019 9:33 PM CLIENT SERVICE SUPERVISOR 08/24/2019 9:56 PM CLIENT SERVICE SUPERVISOR us Mary Anne ARANGO LAB BLOOD ORDERABLES Final Result [facility] Department [place] [address] * Comprehensive metabolic panel (08/24/2019 3:42 AM CLIENT SERVICE SUPERVISOR) Sodium 141 135 - 145 mmol/L [facility] Potassium, pl 4.2 3.3 - 4.9 mmol/L [facility] Chloride 106 97 - 110 mmol/L [facility] CO2 27 22 - 32 mmol/L [facility] Anion gap 8 2 - 15 mmol/L [facility] BUN 11 8 - 25 mg/dL [facility] Creatinine 0.76 0.60 - 1.10 mg/dL [facility] Glucose 120 70 - 199 mg/dL [facility] Comment: Interpretive Data Fasting glucose >/= [...] 2017. Calcium 8.9 8.5 - 10.3 mg/dL [facility] Bilirubin, total 0.2 0.1 - 1.2 mg/dL [facility] Protein, pl 6.6 6.5 - 8.5 g/dL [facility] Albumin 3.6 3.5 - 5.0 g/dL [facility] Alk phos 51 40 - 130 Units/L [facility] ALT 42 7 - 45 Units/L [facility] AST 38 10 - 45 Units/L [facility] Blood specimen (specimen) 08/24/2019 3:42 AM CLIENT SERVICE SUPERVISOR 08/24/2019 4:56 AM CLIENT SERVICE SUPERVISOR us Gato Meza MD LAB BLOOD ORDERABLES Fin al Result [facility] Department [place] [address] * (ABNORMAL) CBC without differential (08/24/2019 3:42 AM CLIENT SERVICE SUPERVISOR) WBC 7.0 3.8 - 9.9 K/cumm [facility] Hgb 8.8(L) 11.9 - 15.5 g/dL [facility] Hct 28.6(L) 35.6 - 45.5 % [facility] Plt 313 150 - 400 K/cumm [facility] MPV 9.7 9.1 - 12.3 fL [facility] RBC 3.54(L) 3.90 - 5.20 M/cumm [facility] MCV 80.8(L) 81.3 - 96.4 fL [facility] MCH 24.9(L) 27.1 - 33.3 pg [facility] MCHC 30.8(L) 32.3 - 35.7 g/dL [facility] RDW CV 14.0 11.1 - 14.9 % [facility] RDW SD 41.1 35.7 - 48.1 fL [facility] NRBC abs 0.00 0.00 - 0.01 K/cumm [facility] Blood specimen (specimen) 08/24/2019 3:42 AM CLIENT SERVICE SUPERVISOR 08/24/2019 5:37 AM CLIENT SERVICE SUPERVISOR us Gato Meza MD LAB BLOOD ORDERABLES Fin al Result [facility] Department [place] [address] * Surgical pathology (08/23/2019 2:04 PM CLIENT SERVICE SUPERVISOR) Tissue (Stomach - Subtotal / Total Resection, Tumor) 08/23/2019 2:04 PM CLIENT SERVICE SUPERVISOR Narrative PATHOLOGY [facility] - 08/31/2019 4:11 PM CLIENT SERVICE SUPERVISOR EPIC results best viewed via link to PDF [facility] [place] [address] SURGICAL PATHOLOGY REPORT FINAL Patient Name: ?? JUANJO GIBSON Gender: ??F : ??[id number] (Age: 54) Address: ??[address] [place] [id number] [facility] #: ??[id number] Taken:08/23/2019 Received:08/23/2019 Reported: 08/31/2019 Patient Type: [facility] Inpatient ?? Service: General Surgery Location: [facility] 0164 Physician(s): ??Gato Meza M.D. Diagnosis: Stomach, distal [...] ??area adjacent to nodule; A6 to A16 ??traveling representative portions of stomach; A17 to A20 [...] by the Surgical Pathology Department at [facility] as part of an ongoing advanced quality engineer program and in compliance with [...] determined by the Surgical Pathology Department of [facility]. ??It has not been cleared or approved by the U. S. Food and Drug Administration. IMAGES AND SCANNED DOCUMENTS, IF INCLUDED, ONLY VIEWABLE IN PDF VERSION OF REPORT us Gato Meza MD LAB PATHOLOGY ORDERABLES Final Result PATHOLOGY [facility] 3rd Floor [place], [place] [phone] * Type and screen (08/23/2019 10:00 AM CLIENT SERVICE SUPERVISOR) José, indirect Negative [facility] ABO Rh B Positive [facility] Blood specimen (specimen) 08/23/2019 10:00 AM CLIENT SERVICE SUPERVISOR 08/23/2019 10:10 AM CLIENT SERVICE SUPERVISOR Narrative [facility] - 08/23/2019 11:16 AM CLIENT SERVICE SUPERVISOR Has the patient had Daratumumab (Darzalex) in the past 6 months?->Unknown us Luz Anaya NP LAB BLOOD BANK TEST ORDERAB LES Final Result [facility] Department [place] [address] documented in this encounter Visit Diagnoses Diagnosis Gastric carcinoma (HCC)- Primary Malignant neoplasm of stomach, unspecified site Gastric carcinoma (HCC) Malignant neoplasm of stomach, [...] Wed08/23/19 at 2030 Given 08/26/2019 5:31 PM CLIENT SERVICE SUPERVISOR 1,000 mg Given 08/26/2019 11:59 AM CLIENT SERVICE SUPERVISOR 1,000 mg Given 08/26/2019 5:59 AM CLIENT SERVICE SUPERVISOR 1,000 mg buPROPion XL (WELLBUTRIN XL) 24 hour tablet 150 mg 150 mg, oral, Every morning, First dose on Dariela 08/24/19 at 0900, Do not crush, chew, cut, dissolve, open or otherwise manipulate tablet/capsule., Indications: Anxiety with DepressionIndications:Anxiety with Depression Given 08/27/2019 8:0 1 AM CLIENT SERVICE SUPERVISOR 150 mg Given 08/26/2019 8:25 AM CLIENT SERVICE SUPERVISOR 150 mg Given 08/25/2019 8:09 AM CLIENT SERVICE SUPERVISOR 150 mg cyanocobalamin (Vitamin B-12) injection 1,000 mcg 1,000 mcg, subcutaneous, Every 30 days, First dose on Wed08/23/19 at 1945 Given 08/24/2019 12:04 AM CLIENT SERVICE SUPERVISOR 1,000 mcg Right Lower Abdomen dexAMETHasone (DECADRON) 4 mg, bupivacaine (MARCAINE) 60 mL solution As needed, Starting on Wed08/23/19 at 1428, Intra-Op Given 08/23/2019 2:28 PM CLIENT SERVICE SUPERVISOR 61 mL Abdominal Tissue escitalopram (LEXAPRO) tablet 10 mg 10 mg, oral, Every morning, First dose on Dariela 08/24/19 at 0900, Indications: Anxiety with DepressionIndications:Anxiet y with Depression Given 08/27/2019 8:01 AM CLIENT SERVICE SUPERVISOR 10 mg Given 08/26/2019 8:25 AM CLIENT SERVICE SUPERVISOR 10 mg Given 08/25/2019 8:09 AM CLIENT SERVICE SUPERVISOR 10 mg gabapentin (NEURONTIN) capsule 300 mg 300 mg, oral, 3 times daily, First dose on Dariela 08/24/19 at 0900 Given 08/27/2019 8:01 AM CLIENT SERVICE SUPERVISOR 300 mg Given 08/26/2019 8:54 PM CLIENT SERVICE SUPERVISOR 300 mg Given 08/26/2019 4:12 PM CLIENT SERVICE SUPERVISOR 300 mg heparin 5,000 unit/mL injection 5,000 Units 5,000 Units, subcutaneous, Every 8 hours scheduled, First dose on Wed08/23/19 at 2200, Indications: Deep Vein Thrombosis PreventionIndications:Deep Vein Thrombosis Prevention Given 08/26/2019 1:54 PM CLIENT SERVICE SUPERVISOR 5,000 Units Right Upper Abdomen Given 08/26/2019 5:59 AM CLIENT SERVICE SUPERVISOR 5,000 Units L eft Lower Abdomen Given 08/25/2019 9:07 PM CLIENT SERVICE SUPERVISOR 5,000 Units L eft Lower Abdomen hydroCHLOROthiazide (HYDRODIURIL) tablet 12.5 mg 12.5 mg, oral, Daily, First dose on Wed08/24/19 at 0900 Given 08/27/2019 8:01 AM CLIENT SERVICE SUPERVISOR 12.5 mg Given 08/26/2019 8:25 AM CLIENT SERVICE SUPERVISOR 12.5 mg Given 08/25/2019 8:09 AM CLIENT SERVICE SUPERVISOR 12.5 mg hydroxychloroquine (PLAQUENIL) tablet 200 mg 200 mg, oral, Every morning, First dose on Wed08/24/19 at 0900, Indications: ArthritisIndications:Arthritis Given 08/27/2019 8:01 AM CLIENT SERVICE SUPERVISOR 200 mg Given 08/26/2019 8:25 AM CLIENT SERVICE SUPERVISOR 200 mg Given 08/25/2019 8:09 AM CLIENT SERVICE SUPERVISOR 200 mg losartan (COZAAR) tablet 50 mg 50 mg, oral, Daily, First dose on Wed08/24/19 at 0900 Given 08/27/2019 8:01 AM CLIENT SERVICE SUPERVISOR 50 mg Given 08/26/2019 8:25 AM CLIENT SERVICE SUPERVISOR 50 mg Given 08/25/2019 8:09 AM CLIENT SERVICE SUPERVISOR 50 mg ondansetron ODT (ZOFRAN-ODT) disintegrating tablet 4 mg 4 mg, oral, Every 4 hours PRN, nausea, vomiting, Starting on Wed08/24/19 at 0731 oxyCODONE (ROXICODONE) tablet 5 mg 5 mg, oral, Every 4 hours PRN, 2nd line for pain, Starting on Wed08/23/19 at 1953, Indications: PainIndications:Pain Given 08/25/2019 9:07 PM CLIENT SERVICE SUPERVISOR 5 mg Given 08/25/2019 12:30 AM CLIENT SERVICE SUPERVISOR 5 mg Given 08/24/2019 4:21 PM CLIENT SERVICE SUPERVISOR 5 mg polyethylene glycol (MIRALAX) packet 17 g 17 g, oral, Daily, First dose on Dariela 08/24/19 at 0900, Indications: constipationIndications:constipation Given 08/27/2019 8:01 AM CLIENT SERVICE SUPERVISOR 17 g Given 08/26/2019 8:25 AM CLIENT SERVICE SUPERVISOR 17 g Given 08/25/2019 8:09 AM CLIENT SERVICE SUPERVISOR 17 g pravastatin (PRAVACHOL) tablet 40 mg 40 mg, oral, Every morning, First dose on Dariela 08/24/19 at 0900, Indications: hyperlipidemiaIndications:hyperlipidemia Given 08/27/2019 8:01 AM CLIENT SERVICE SUPERVISOR 40 mg Given 08/26/2019 8:25 AM CLIENT SERVICE SUPERVISOR 40 mg Given 08/25/2019 8:09 AM CLIENT SERVICE SUPERVISOR 40 mg simethicone (MYLICON) chewable tablet 80 mg 80 mg, oral, 3 times daily PRN, other, gas, Starting on Wed08/23/19 at 2353 Given 08/24/2019 12:04 AM CLIENT SERVICE SUPERVISOR 80 mg sodium chloride 0.9 % irrigation As needed, Starting on Wed08/23/19 at 1324, Intra-Op Given 08/23/2019 1:24 PM CLIENT SERVICE SUPERVISOR 1,000 mL Surgical Site sterile water irrigation As needed, Starting on Wed08/23/19 at 1324, Intra-Op Given 08/23/2019 1:24 PM CLIENT SERVICE SUPERVISOR 1,000 mL Other (Comment) documented in this encounter Active and Recently Administered Medications Times are shown in CLIENT SERVICE SUPERVISOR. Scheduled Medication Order 08/25/2019 08/26/2019 08/27/2019 acetaminophen [...] RN) 0559 (Given - Provider: Faina Ashby RN)1159 (Given - Provider: Alexandria Steele RN)1731 [...] RN) 0825 (Given - Provider: Alexandria Steele RN)1612 (Given - Provider: Alexandria Steele, BYRON)2054 (Given - Provider: Faina Ashby RN) 0801 (Given - Provider: Alexandria Steele RN) heparin 5,000 unit/mL injection 5,000 Units 5,000 Units, subcutaneous, Every 8 hours scheduled, First dose on Wed08/23/19 at 2200, Indications: Deep Vein Thrombosis Prevention 0518 (Given - Provider: Luz Valera RN)1421 (Given - Provider: Robert Castillo RN)2107 (Given - Provider: Faina Ashby RN) 0559 (Given - Provider: Faina Ashby RN)1354 (Given - Provider: Alexandria Steele RN)2042 (Not Given - Provider: Faina Ashby RN - Reason: Other) 0518 (Not Given - Provider: Faina Ahsby RN - Reason: Other) hydroCHLOROthiazide (HYDRODIURIL) tablet 12.5 mg(Linked Group 1) 12.5 mg, oral, Daily, First dose on Dariela 08/24/19 at 0900 0809 (Given - Provider: Robert Castillo RN) 0825 (Given - Provider: Alexandria Steele RN) 0801 (Given - Provider: Alexandria Steele RN) hydroxychloroquine (PLAQUENIL) tablet 200 mg 200 mg, oral, Every morning, First dose on Dariela 08/24/19 at 0900, Indications: Arthritis 0809 (Given - Provider: Robert Castillo RN) 0825 (Given - Provider: Alexandria Steele RN) 0801 (Given - Provider: Alexandria Steele RN) losartan (COZAAR) tablet 50 mg(Linked Group 1) 50 mg, oral, Daily, First dose on Dariela 08/24/19 at 0900 0809 (Given - Provider: Robert Castillo RN) 0825 (Given - Provider: Alexandria Steele RN) 0801 (Given - Provider: Alexandria Steele RN) polyethylene glycol (MIRALAX) packet 17 g 17 g, oral, Daily, First dose on Dariela 08/24/19 at 0900, Indications: constipation 0809 (Given - Provider: Robert Castillo RN) 0825 (Given - Provider: Alexandria Steele RN) 0801 (Given - Provider: Alexandria Steele RN) pravastatin (PRAVACHOL) tablet 40 mg 40 mg, oral, Every morning, First dose on Dariela 08/24/19 at 0900, Indications: hyperlipidemia 0809 (Given - Provider: Robert Castillo RN) 0825 (Given - Provider: Alexandria Steele RN) 0801 (Given - Provider: Alexandria Steele, BYRON) PRN Medication Order 08/25/2019 08/26/2019 08/27/2019 ondansetron ODT (ZOFRAN-ODT) disintegrating tablet 4 mg 4 mg, oral, Every 4 hours PRN, nausea, vomiting, Starting on Wed08/24/19 at 0731 oxyCODONE (ROXICODONE) tablet 5 mg 5 mg, oral, Every 4 hours PRN, 2nd line for pain, Starting on Wed08/23/19 at 1953, Indications: Pain 0030 (Given - Provider: Luz Valera, BYRON)2107 (Given - Provider: Faina Ashby, BYRON) simethicone (MYLICON) chewable tablet 80 mg 80 [...] Count Last Ordered Date First Ordered Date gabapentin (NEURONTIN) capsule 300 mg 2 04/201908/22/2019 ondansetron ODT (ZOFRAN-ODT) disintegrating tablet 4 mg 1 08/24/2019 polyethylene glycol (MIRALAX) packet 17 g 1 08/24/2019 acetaminophen (TYLENOL) tablet 1,000 mg 2 1 10/23/2018 08/22/2019 buPROPion XL (WELLBUTRIN XL) 24 hour tablet 150 mg 1 08/23/2019 cefOXitin (MEFOXITIN) 2,000 mg/20 mL in sterile water (premix) 2,000 mg 1 08/23/2019 cyanocobalamin (Vitamin B-12 ) injection 1,000 mcg 1 08/23/2019 dextrose 5% and sodium chlor cherri 0.45% infusion (premix) 1 08/23/2019 diphenhydrAMINE (BENADRYL) i njection 12.5 mg 1 08/23/2019 escitalopram (LEXAPRO) tablet 10 mg 1 08/23 fentaNYL (SUBLIMAZE) preserv ative free injection 50 mcg 1 08/23/2019 heparin 5,000 unit/mL inject ion 5,000 Units 2 08/23/2019 08/22/2019 hydroCHLOROthiazide (HYDRODI URIL) tablet 12.5 mg 1 08/23/2019 HYDROmorphone (DILAUDID) injection 0.4 mg 1 08/23/2019 hydroxychloroquine (PLAQUENI L) tablet 200 mg 1 08/23/2019 Lactated Ringer's (LR) infusion 1 9 losartan (COZAAR) tablet 50 mg 1 08/23/2019 losartan-hydroCHLOROthiazide (HYZAAR) 50-12.5 mg per tablet 1 tablet 1 08/23/2019 meperidine (DEMEROL) preserv ative free injection 12.5 mg 1 08/23/2019 naloxone (NARCAN) 0.4 mg/mL injection 0.04-0.4 mg 1 08/23/2019 ondansetron (ZOFRAN) injection 4 mg 1 08/23 oxyCODONE (ROXICODONE) tablet 5 mg 1 2018 pravastatin (PRAVACHOL) tablet 40 mg 1 03/2019 prochlorperazine (COMPAZINE) injection 10 mg 1 08/23/2019 simethicone (MYLICON) chewab le tablet 80 mg 1 08/23/2019 sodium chloride 0.9% flush 0.5-20 mL 1 03/2019 Lab Orders Without Results Count Last Ordered D ate First Ordered Date MAGNESIUM 1 08/25/2019 PHOSPHORUS 1 08/25/2019 Consult Count Last Ordered Date First Orde red Date IP CONSULT TO NUTRITION SERVICES 2 08/25/20 19 08/23/2019 documented in this encounter Care Teams Abalone Sheller Relationship Specialty Start Date End Date Barbra Goddard PA PCP - General Physician Dry Cell And Battery Assembler 01/22/19 12/05/19 Luann Lawrence NP Nurse Practitioner Nurse Practitioner 01/06/19 Adarsh Tuttle MD [address] [facility] [address] [place] [address] Consulting Physician Gastroenterology 02/22/19 Sebastien Martinez DO [address] [place] [address] [phone] Medical Oncologist/Supervisor [employer] Hematology and Oncology 02/22/19 Guru Winters DO [address] [place] [address] [phone] Consulting Physician Gastroenterology 02/22/19 documented as of this encounter
--- OUTSIDE RECORDS SUMMARY | 2024-10-04 03:06 | XMS_ITS | Encounter Summary ---
Author Organization [facility] Address [address] [place] [address] Phone Care Team Providers Care Marketing Database Consultant Name Role Phone Luann Lawrence ANUP Unavailable [phone] Barbra Goddard Primary Care Pr ovider Adarsh Tuttle MD Unavailable [phone] Sebastien Martinez DO Unavailable [phone] Guru Winters DO Unavailable [phone] Reason for Visit * Reason Comments Injections Encounter Details Date Type Department Care Team (Late st Contact Info) Description 06/22/2019 4:00 PM CDT Infusion [facility] Oncology [address] [place] [address] Pernicious anemia (Primary Dx) Social History Tobacco Use Types Packs/Day Years Used Date Smoking Tobacco: Former Cigarettes 1 2 Smokeless Tobacco: Never Alcohol Use Standard Drinks/Week Comments Yes 6 (1 standard drink = 0.6 oz pur e alcohol) Comments Unknown Sex and Gender Information Value Date Recorded Sex Assigned at Not on file Legal Sex Female 2:22 AM AUTOMOTIVE PARTS INTERPRETER Gender Identity Female 06/07/2020 8:39 AM CDT Sexual Orientation Not on file 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 documented in this encounter Plan of Treatment Not on file documented as of this encounter Visit Diagnoses Diagnosis Pernicious anemia- Primary documented in this encounter Administered Medications Inactive Administered Medications - up to 3 most recent administrations Medication Order MAR Action Action Date Dose Rate Site cyanocobalamin (Vitamin B-12) injection 1,000 mcg 1,000 mcg, intramuscular, Once, On Dariela 06/22/19 at 1630, For 1 dose, Indications: Pernicious AnemiaIndications:Pernici ous Anemia Given 06/22/2019 3:53 PM CDT 1,000 mcg Right Deltoid documented in this encounter Orders Appointment Requests Count Last Ordered Date Fi rst Ordered Date ONCBCN INJECTION APPOINTMENT REQUEST 1 02/2019 documented in this encounter Care Teams Marketing Database Consultant Relationship Specialty Start Date End Date Barbra Goddard PA PCP - General Physician Molecular Biologist 01/22/19 12/05/19 Luann Lawrence NP Nurse Practitioner Nurse Practitioner 01/06/19 Adarsh Tuttle MD [address] [facility] [address] [place] [address] Consulting Physician Gastroenterology 02/22/19 Sebastien Martinez DO [address] [place] [address] Medical Oncologist/Feed Mixer Hematology and Oncology 02/22/19 Guru Winters DO [address] [place] [address] Consulting Physician Gastroenterology 02/22/19 documented as of this encounter
--- OUTSIDE RECORDS SUMMARY | 2024-10-04 03:06 | XMS_ITS | Encounter Summary ---
Author Organization [facility] Address [address] [facility] [address] [place] [address] Phone Care Team Providers Care Type Mapper Name Role Phone Luann Lawrence NP Unavailable [phone] Barbra Goddard Primary Care Pr ovider Adarsh Tuttle MD Unavailable [phone] Sebastien Martinez DO Unavailable [phone] Guru Winters DO Unavailable [phone] Reason for Visit * Consultation (Routine) - Closed Specialty Diagnoses / Procedures Referred By Clemencia mendez Referred To Contact General Surgery Diagnoses Malignant carcinoid tumor of stomach (HCC) Sebastien Martinez DO Phone: tel: fax: Gato Abrams MD [address] [facility] [phone] [place] [address] Phone: tel: fax: Referral ID Status Reason Start Date Expiration Date V isits Requested Visits Authorized [id number] Closed Specialty Services Required 02/10/2019 08/21/2020 99 99 Encounter Details Date Type Department Care Team (Late st Contact Info) Description 02/24/2019 1:30 PM CDT Office Visit [facility] Surgery [address] [facility] [address] [place] [id number] Gato Abrams MD [address] [facility] [phone] [place] [address] 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) Social History Tobacco Use Types Packs/Day Years Used Date Smoking Tobacco: Former Cigarettes 1 2 Smokeless Tobacco: Never Alcohol Use Standard Drinks/Week Comments Yes 6 (1 standard drink = 0.6 oz pur e alcohol) Comments Unknown Sex and Gender Information Value Date Recorded Sex Assigned at Not on file Legal Sex Female 2:22 AM BEAD TRIMMER Gender Identity Female 06/07/2020 8:39 AM CDT Sexual Orientation Not on file 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 Not on file Not on mikie e documented as of this encounter Last Filed Vital Signs Vital Sign Reading Time Taken Comments Blood Pressure 120/59 02/24/2019 1:37 PM CDT Pulse 60 02/24/2019 1:37 PM CDT Temperature 36.3 ??C (97.4 ??F) 02/24/2019 1:37 PM CD T Respiratory Rate 16 02/24/2019 1:37 PM CDT Oxygen Saturation 100% 02/24/2019 1:37 PM CDT Inhaled Oxygen Concentration - - Weight 69.7 kg (153 lb 9.6 oz) 02/24/2019 1:37 P M CDT Height 162 cm (5' 3.78 ) 02/24/2019 1:37 PM CDT Body Mass Index 26.55 02/24/2019 1:37 PM CDT documented in this encounter Progress Notes * Gato Abrams MD - 02/24/2019 1:30 PM CDT Images from the original note were not included. Gato Abrams M.D., F.A.C.S. Chief, Section of Surgical Oncology clinical project leader [facility] The [facility] - voice - fax [facility] Mailing Address: Overnight Mailing Address: [address] [place] [address] [address] [place] for [facility], [address] [place], [place] [address] [place], [place] [address] NEW PATIENT EVALUATION DATE OF VISIT: 02/24/19 REASON FOR VISIT: Carcinoid tumors of the stomach, treated with endoscopic resection, and new pancreatic head lesion found on Dotatate PET/CT scan. Consult requested by Dr. Sebastien Martinez DO. HISTORY OF PRESENT ILLNESS: Ms. Gibson is a 53 y.o. female who was found to be anemic by her primaryphysician and underwent upper endoscopy December, by Dr. Guru Winters. This demonstrated several gastric polyps, removed successfully and demonstrated well-differentiated neuroendocrine (carcinoid) tumors. Endoscopic ultrasound (EUS) was performed by Dr. Adarsh Tuttle on 01/13/2019, which I have personally reviewed, demonstrating no new lesions and no recurrent disease at the polypectomy sites. She was seen by Dr. Sebastien Martinez in Medical Oncology. A Dotatate PET/CT scan demonstrated a focal uptake in the head of the pancreas measuring 1.5 cm with an SUV max of 13.1. Ms. Gibson underwent a MRI/MRCP today, which I have personally reviewed, demonstrating no lesions in the pancreas. No abnormalities in the abdomen/pelvis. Currently, Ms. Gibson is doing well. She is tolerating her usual diet and having normal bowel and bladder function. She is not having significant pain. Her daily activity and routine typically includeexercise and work. Her ECOG performance status is estimated at 0. She has had no weight loss. I have reviewed Ms. Gibson's medical records from her referring physician and agree with their findings. This includes her imaging, clinic notes, blood work, and endoscopy reports. Ms. Gibson underwent recent blood work, which I have personally reviewed. This includes: Tumor Markers: Chromogranin A = 489. PAST MEDICAL HISTORY: Past Medical History: Diagnosis Date ??? Anemia ??? 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 Depression ??? Hyperlipidemia ??? Hypertension ??? Rheumatoid arthritis (CMS/HCC) ??? Urinary tract infection PAST SURGICAL HISTORY: Past Surgical History: Procedure Laterality Date ??? SECTION ??? COLONOSCOPY ??? ENDOMETRIAL ABLATION ??? ESOPHAGOGASTRODUODENOSCOPY ??? TUBAL LIGATION ALLERGIES: Patient has no known allergies. MEDICATIONS: No current facility-administered medications for this visit. No current outpatient medications on file. SOCIAL HISTORY: ??? Smoking History: reports that she has quit smoking. She has a 2.00 pack-year smoking history. She has never used smokeless tobacco. ??? Alcohol History: reports that she drinks about 3.6 oz of alcohol per week. ??? Drug use: reports that she does not use drugs. ??? Lives in [place] [address]*. No limitations on activity. She is able to ambulate withoutdifficulty and can walk up >2 flights of stairs before becoming short of breath. ??? The patient is accompanied today by her daughters FAMILY HISTORY: Ms. Gibson's family history includes Cancer in her maternal grandmother; Colon cancer in her mother's brother; Congestive Heart Failure in her father; Dementia in her mother; Emphysema in her father; Heart attack in her brother; No Known Problems in her sister; Ovarian cancer in her mother's sister.. Of note, there is no family history of cewbrm-kuojwohqx-hpdvexd disease or cancer. REVIEW OF SYSTEMS: The review of systems is as reported in the history of present illness and as recorded on the patient information worksheet, which I have personally reviewed. All other systems are as follows: ??? General: No fevers, no chills. ??? HEENT: No visual symptoms, no dysphagia, no masses. ??? Respiratory: No cough, no SOB, no dyspnea. ??? CV: No chest pain, no palpitations. ??? GI: No difficulty or pain with bowel movements, no GI bleeding. ??? : No difficulty or pain with urination. ??? Skin: No skin lesions or masses. ??? Musculoskeletal: No joint or muscle pain, normal range of motion. ??? Neurological: No numbness or weakness. ??? Psychiatric: No changes in mood or affect, no change in mentation. PHYSICAL EXAMINATION: VITAL SIGNS: Weight - 69.7 kg (153 lb 9.6 oz) pounds, Blood pressure - 120/59, Heart rate - 60 bpm,Temperature - 36.3 ??C (97.4 ??F) (Oral) ??F. GENERAL: Alert and oriented x 3 in no apparent distress. HEENT: PERRLA, EOMI. No masses. Trachea midline, thyroid normal. CHEST: Clear to auscultation bilaterally. HEART: Regular rate and rhythm. No murmurs. ABDOMEN: Soft, nontender, nondistended with no masses or hernias. No hepatosplenomegaly. No reboundor guarding. EXTREMITIES: Warm and well perfused. 2+ distal pulses. NEUROLOGIC: No focal deficits. SKIN: No skin lesions. No cervical, supraclavicular, axillary, or inguinal adenopathy. PSYCHIATRIC: Within normal limits. REVIEW OF LABORATORY AND RADIOGRAPHIC STUDIES: See HPI. ASSESSMENT/PLAN: 53 y.o. female with a history of gastric carcinoid who was found to have a pancreatic head lesion positive on a Dotatate PET/CT scan for a neuroendocrine tumor. Based on her MRI fromtoday, there are no pancreatic lesions. This likely represents a false positive on the Dotatate PET/CT, which we see not infrequently. The MRI is much more sensitive for pancreatic masses or lesions.At this time, I would recommend she continue endoscopic surveillance for her history of gastric carcinoids. I would reserve further cross-sectional imaging for the finding of new gastric lesions or for new onset of symptoms. I discussed this with Ms. Gibson, who understands and wishes to proceed. I answered all of her questions to her satisfaction. Gato Abrams M.D., F.A.C.S. Chief, Section of Surgical Oncology clinical project leader CC: Patient Care Team: NBA Ward as PCP - General (Physician Lunch Truck Driver) Luann Lawrence NP as Nurse Practitioner (Nurse Practitioner) Adarsh Tuttle MD as Consulting Physician (Gastroenterology) Sebastien Martinez DO as Medical Oncologist/Ruffler (Hematology and Oncology) Guru Winters DO as Consulting Physician (Gastroenterology) Supervisor Finishing Department completed by [employer]. Supervisor Finishing Department variances may occur. documented in this encounter Plan of Treatment Not on file documented as of this encounter Visit Diagnoses Diagnosis Malignant carcinoid tumor of stomach (HCC)- Primary Malignant carcinoid tumor of the stomach documented in this encounter Orders Outpatient Referral Count Last Ordered Date st Ordered Date AMB REFERRAL TO GENERAL SURGERY 1 9 documented in this encounter Care Teams Type Mapper Relationship Specialty Start Date End Date GilbertoBarbra thurston NBA [place] PCP - General Physician Lunch Truck Driver 01/22/19 12/05/19 Luann Lawrence NP Nurse Practitioner Nurse Practitioner 01/06/19 Adarsh Tuttle MD [address] [facility] [address] [place] [address] Consulting Physician Gastroenterology 02/22/19 Sebastien Martinez DO [address] [place] [address] Medical Oncologist/Ruffler Hematology and Oncology 02/22/19 Guru Winters DO [facility] [id number] Consulting Physician Gastroenterology 02/22/19 documented as of this encounter
--- OUTSIDE RECORDS SUMMARY | 2024-10-04 03:06 | XMS_ITS | Encounter Summary ---
Author Organization [facility] Address [address] [place] [address] Phone Care Team Providers Care Academic Coach Name Role Phone MelindaLuann oh NAUP Unavailable [phone] Barbra Goddard Primary Care Pr ovider Adarsh Tuttle MD Unavailable [phone] Sebastien Martinez DO Unavailable [phone] Guru Winters DO Unavailable [phone] Encounter Details Date Type Department Care Team (Late st Contact Info) Description 07/03/2019 2:00 PM CDT Office Visit [facility] Surgery [address] [facility] 8th [place] [address] [place] [address] Gato Abrams MD [address] [facility] [place] [phone] [place] [address] 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) Social History Tobacco Use Types Packs/Day Years Used Date Smoking Tobacco: Former Cigarettes 1 2 Smokeless Tobacco: Never Alcohol Use Standard Drinks/Week Comments Yes 6 (1 standard drink = 0.6 oz pur e alcohol) social Comments Unknown Sex and Gender Information Value Date Recorded Sex Assigned at Not on file Legal Sex Female 2:22 AM ACCOUNT RESOLUTION SPECIALIST Gender Identity Female 06/07/2020 8:39 AM CDT Sexual Orientation Not on file 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 Not on mikie e documented as of this encounter Last Filed Vital Signs Vital Sign Reading Time Taken Comments Blood Pressure 128/74 07/03/2019 2:00 PM CDT Pulse 71 07/03/2019 2:00 PM CDT Temperature 37.4 ??C (99.4 ??F) 07/03/2019 2:00 PM CD T Respiratory Rate - - Oxygen Saturation - - Inhaled Oxygen Concentration - - Weight 72.4 kg (159 lb 9.6 oz) 07/03/2019 2:00 P M CDT Height 162.6 cm (5' 4 ) 07/03/2019 2:00 PM CDT Body Mass Index 27.4 07/03/2019 2:00 PM CDT documented in this encounter Progress Notes * Gato Abrams MD - 07/03/2019 2:00 PM CDT Images from the original note were not included. Gato Abrams M.D., F.A.C.S. Chief, Section of Surgical Oncology special events coordinator [facility] The [facility] - voice - fax [employer] Mailing Address: Overnight Mailing Address: [address] [place] [address] [address] [place] for [facility], [address] [place], [place] [address] [place], [place] [address] FOLLOW-UP EVALUATION DATE OF VISIT: 07/03/19 REASON FOR VISIT: Carcinoid tumors of the [...] of 13.1. Ms. Gibson underwent a MRI/MRCP when I initially saw her in February, which I have personally reviewed, demonstrating no lesions in the pancreas. No abnormalities in the abdomen/pelvis. At that time, we elected on a course of conservative management for her gastric carcinoids. Since Isaw her last, she had repeat EUS on 05/18/[address] Winters which demonstrated 3 gastric polyps in thebody which were excised. Pathology was consistent with well differentiated neuroendocrine tumors with chronic gastritis and intestinal metaplasia consistent with atrophic gastritis. Her initial Chromo granin level was ~400 and repeat level on 05/18/19 was 256. She was seen by Dr. Martinez who referredher back to see me. She has good appetite, denies any weight loss, changes in urinary or bowel habits. She can walk upto 2 miles per day without getting short of breath. Ms. Gibson underwent an abdominal MRI on 05/27/19, which I have personally reviewed, demonstrating nofocal pancreatic lesion and a small focus of restricted diffusion along the greater curvature of the stomach, without correlate on contrast-enhanced imaging. Repeat EUS and endoscopy on 06/20/2019, which I have personally reviewed, demonstrated a single submucosal lesion in the antrum of the stomach with no other lesions noted. Biopsy showed a hyperplastic polyp. Antral biopsies showed atrophic gastritis. PAST MEDICAL HISTORY: Past Medical History: Diagnosis Date ??? Anemia ??? 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 Carcinoid tumor of stomach ??? Depression ??? Hyperlipidemia ??? Hypertension ??? Rheumatoid arthritis (CMS/HCC) ??? Urinary tract infection PAST SURGICAL HISTORY: Past Surgical History: Procedure Laterality Date ??? SECTION twice ??? COLONOSCOPY ??? ENDOMETRIAL ABLATION ??? ESOPHAGOGASTRODUODENOSCOPY ??? TUBAL LIGATION ALLERGIES: Patient has no known allergies. MEDICATIONS: Current Outpatient Medications: ??? buPROPion XL (WELLBUTRIN XL) 150 mg 24 hr tablet, , Disp: , Rfl: ??? cholecalciferol (VITAMIN D3) 2,000 unit capsule, 3,000 Units , Disp: , Rfl: ??? escitalopram (LEXAPRO) 10 mg tablet, Take 10 mg by mouth daily, Disp: , Rfl: ??? hydroxychloroquine (PLAQUENIL) 200 mg tablet, Take 200 mg by mouth, Disp: , Rfl: ??? losartan-hydroCHLOROthiazide (HYZAAR) 50-12.5 mg per tablet, Take 1 tablet by mouth daily, Disp: , Rfl: ??? omeprazole (PriLOSEC) 20 mg capsule, omeprazole 20 mg capsule,delayed release, Disp: , Rfl: ??? pravastatin (PRAVACHOL) 40 mg tablet, , Disp: , Rfl: ??? multivit with min-folic acid 200 mcg tablet,chewable, Take by mouth, Disp: , Rfl: SOCIAL HISTORY: ??? Smoking History: reports that she has quit smoking. She has a 2.00 pack-year smoking history. She has never used smokeless tobacco. ??? Alcohol History: reports that she drinks about 3.6 oz of alcohol per week. ??? Drug use: reports that she does not use drugs. ??? Lives in [place] [address]*. No limitations on activity. She is able [...] note, there is no family history of zeityn-yxaugbkth-flivnmv disease or cancer. REVIEW OF SYSTEMS: The [...] mentation. PHYSICAL EXAMINATION: VITAL SIGNS: Weight - 72.4 kg (159 lb 9.6 oz) pounds, Blood pressure - 128/74, Heart rate - 71 bpm,Temperature - 37.4 ??C (99.4 ??F) (Oral) ??F. GENERAL: Alert and oriented x 3 in no apparent distress. HEENT: PERRLA, EOMI. No masses. Trachea midline, thyroid normal. CHEST: Clear to auscultation bilaterally. HEART: Regular rate and rhythm. No murmurs. ABDOMEN: Soft, nontender, nondistended with no masses or hernias. No hepatosplenomegaly. No reboundor guarding. Well healed Pfannenstiel incision. EXTREMITIES: Warm and well perfused. 2+ distal pulses. NEUROLOGIC: No focal deficits. SKIN: No skin lesions. No cervical, supraclavicular, axillary, or inguinal adenopathy. PSYCHIATRIC: Within normal limits. REVIEW OF LABORATORY AND RADIOGRAPHIC STUDIES: See HPI. ASSESSMENT: 53 y.o. female with a history of gastric carcinoid who was found to have a pancreatic head lesion positive on a Dotatate PET/CT scan for a neuroendocrine tumor. Based on her MRI from today, there is no panceatic lesion. With respect to her gastric carcinoids, she has this is the settingof no family history and anemia. She has atrophic gastritis on biopsies and clinically. Thus, I think she would benefit from consideration of distal gastrectomy/antrectomy to remove her gastrin source as a cause of her carcinoid. We discussed this surgery, which I would plan laparoscopically. PLAN: I have recommended that Ms. Gibson undergo a laparoscopic, [...] We also discussed risks related to general an esthesia. We discussed the expected post-operative course, including the expected length of stay, time to beginning PO intake, and the follow-up involved. I rubi several pictures and provided Ms. Gibson with literature and several websites to obtain more information (ACS, NCI, ASCO). After our discus dominga, Ms. Gibson decided to proceed with surgery. Informed consent was obtained in clinic today. We will proceed with surgery. We will arrange for the necessary pre-operative testing. I answered all of Ms. Gibson's questions to her satisfaction. ATTENDING ATTESTATION: I, Gato Abrams M.D., the attending surgeon have seen and examined the patient both with Dr. Zuñiga and independently. I agree with the history, physical exam, and findings as described in the above note. Gato Abrams M.D., F.A.C.S. Chief, Section of Surgical Oncology special events coordinator CC: Patient Care Team: NBA Ward as PCP - General (Physician Stamping Mill Tender) Luann Lawrence NP as Nurse Practitioner (Nurse Practitioner) Adarsh Tuttle MD as Consulting Physician (Gastroenterology) Sebastien Martinez DO as Medical Oncologist/Master [employer] (Hematology and Oncology) Guru Winters DO as Consulting Physician (Gastroenterology) Railroad Accountant completed by [employer]. Railroad Accountant variances may occur. documented in this encounter Plan of Treatment Not on file documented as of this encounter Visit Diagnoses Diagnosis Malignant carcinoid tumor of stomach (HCC)- Primary Malignant carcinoid tumor of the stomach documented in this encounter Care Teams Academic Coach Relationship Specialty Start Date End Date Barbra Goddard PA PCP - General Physician Stamping Mill Tender 01/22/19 12/05/19 Luann Lawrence NP Nurse Practitioner Nurse Practitioner 01/06/19 Adarsh Tuttle MD [address] [facility] [address] [place] [address] Consulting Physician Gastroenterology 02/22/19 Sebastien Martinez DO [address] [place] [id number] Medical Oncologist/Master Ocean [employer] Hematology and Oncology 02/22/19 Guru Winters DO [address] [place] [address] [id number] Consulting Physician Gastroenterology 02/22/19 documented as of this encounter
--- OUTSIDE RECORDS SUMMARY | 2024-10-04 03:06 | XMS_ITS | Encounter Summary ---
Author Organization [facility] Address [address] [place] [address] Care Team Providers Care Clothes Drier Repairer Name Role Phone Luann Lawrence NP Unavailable [phone] Barbra Goddard Primary Care Pr ovider Adarsh Tuttle MD Unavailable [phone] Sebastien Martinez DO Unavailable [phone] Guru Winters DO Unavailable [phone] Reason for Referral * Diagnostic Imaging (Routine) - Closed Specialty Diagnoses / Procedures Referred By Clemencia mendez Referred To Contact Radiology Diagnoses Malignant carcinoid tumor of stomach (HCC) Procedures MRI Abdomen Pancreas W WO Contrast MRI Abdomen W WO Contrast Sebastien Martinez DO Phone: tel: fax: [address] [address] Referral ID Status Reason Start Date Expiration Date Visits Re quested Visits Authorized [id number] Closed 03/03/2019 09/11/2020 1 1 Reason for Visit * Diagnostic Imaging (Routine) - Closed Specialty Diagnoses / Procedures Referred By Clemencia mendez Referred To Contact Radiology Diagnoses Malignant carcinoid tumor of stomach (HCC) Procedures MRI Abdomen Pancreas W WO Contrast MRI Abdomen W WO Contrast Sebastien Martinez DO Phone: tel: fax: [facility] [address] [place] [address] Referral ID Status Reason Start Date Expiration Date Visits Re quested Visits Authorized [id number] Closed 03/03/2019 09/11/2020 1 1 Encounter Details Date Type Department Care Team (Latest Contact Info) Description 05/25/2019 9:30 AM CDT - 05/25/2019 11:59 PM CDT Hospital Encounter [facility] Radiology [address] [place] [address] Sebastien Martinez, DO [address] [address] Malignant carcinoid tumor of stomach (CMS/HCC) Discharge [...] on file Legal Sex Female 2:22 AM RADIOLOGY THERAPIST Gender Identity Female 06/07/2020 8:39 AM CDT Sexual Orientation Not on file 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 Not on file Not on mikie e documented as of this encounter Medications at Time of Discharge cholecalciferol (VITAMIN D-3) 1,000 unit capsuleIndicatio ns:Vitamin D Deficiency Take 2 capsules (2,000 Units total) by mouth spudder before breakfast buPROPion XL (WELLBUTRIN XL) 150 mg 24 hr tabletIndication s:Anxiety with Depression Take 150 mg by mouth every morning 03/12/2019 0 buPROPion XL (WELLBUTRIN XL) 300 mg 24 [...] 1 tablet (200 mg total) by mouth spudder before breakfast 01/30/2019 3 losartan-hydroCH LOROthiazide (HYZAAR) [...] CONTRAST Schedule Routine, Read Routine (OP Routine) 05/25/2019 10:24 AM CDT Malignant carcinoid tumor of stomach (CMS/HCC) POCT CREATININE - DEVICE Routine 05/25/2019 10:00 AM CDT documented in this encounter Results [...] it. Electronically signed by: Ren Miner M.D. us Sebastien Martinez DO [facility] MRI PROCEDURES Final Res ult * POCT creatinine (05/25/2019 10:00 AM CDT) Creatinine POC 0.7 0.6 - 1.1 mg/dL [facility] Blood specimen (specimen) 05/25/2019 10:00 AM CDT 05/25/2019 10:00 AM CDT Sebastien Martinez DO LAB POCT ORDERABLES - DEVICE Final Result [facility] [place] [address] documented in this encounter Visit Diagnoses Diagnosis Malignant carcinoid tumor of stomach (HCC) Malignant carcinoid tumor of the stomach documented in this encounter Administered Medications Inactive Administered Medications - up to 3 most recent administrations Medication Order MAR Action Action Date Dose Rate Site gadoterate meglumine (DOTAREM) 0.5 mmol/mL injection 13.88 mL 13.88 mL (0.1 mmol/kg ? 69.4 kg), intravenous, Once in imaging, contrast, Starting on Dariela 05/25/19 at 1012, For 1 dose, Imaging Protocol Orders Given 05/25/2019 10:24 AM CDT 12 mL documented in this encounter Care Teams Clothes Drier Repairer Relationship Specialty Start Date End Date Barbra Goddard PA PCP - General Physician Office Administrator 01/22/19 12/05/19 Luann Lawrence NP Nurse Practitioner Nurse Practitioner 01/06/19 Adarsh Tuttle MD [address] [facility] [address] [place] [address] Consulting Physician Gastroenterology 02/22/19 Sebastien Martinez DO [address] [place] [address] Medical Oncologist/District Fire Chief Hematology and Oncology 02/22/19 Guru Winters DO [address] [place] [address] [place] [address] Consulting Physician Gastroenterology 02/22/19 documented as of this encounter
--- OUTSIDE RECORDS SUMMARY | 2024-10-04 03:06 | XMS_ITS | Encounter Summary ---
Author Organization [facility] Address [address] [place] [address] Phone Care Team Providers Care Squaring Shear Operator Name Role Phone MelindaLuann oh Aditya ANUP Unavailable [phone] Barbra Goddard Primary Care Pr ovider Adarsh Tuttle MD Unavailable [phone] Sebastien Martinez DO Unavailable Guru Winters DO Unavailable [phone] Encounter Details Date Type Department Care Team (Late st Contact Info) Description 2019 Telephone [facility] Oncology [address] [facility] [place] [phone] Sebastien Martinez, DO [address] [facility] [address] [place] [address] Social History Tobacco Use Types Packs/Day Years Used Date Smoking Tobacco: Former Cigarettes 1 2 Smokeless Tobacco: Never Alcohol Use Standard Drinks/Week Comments Yes 6 (1 standard drink = 0.6 oz pur e alcohol) social Comments Unknown Sex and Gender Information Value Date Recorded Sex Assigned at Not on file Legal Sex Female 2:22 AM HAULING CONTRACTOR Gender Identity Female 06/07/2020 8:39 AM CDT Sexual Orientation Not on file 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 Not on mikie e documented as of this encounter Ordered Prescriptions Prescription Sig Dispense Quantity Refills Last Filled Start Date End Date insulin syringe-needle U-100 1 mL 29 gauge x 1/2 syringe 1 Syringe every 30 (thirty) days 30 each 1 2019 0 cyanocobalamin (Vitamin B-12) 1,000 mcg/mL injection Inject 1 mL (1,000 mcg total) under the skin every 30 (thirty) days 1 mL 3 2019 9 documented in this encounter Miscellaneous Notes * Telephone Encounter - Tracy Brock RN - 2019 3:25 PM CDT Patient called and would like to self inject Vitamin B 12 instead of coming to the office for them.Prescriptions sent. Patients daughter is an RN and will administer. documented in this encounter Plan of Treatment Not on file documented as of this encounter Visit Diagnoses Not on filedocumented in this encounter Care Teams Squaring Shear Operator Relationship Specialty Start Date End Date Barbra Goddard PA PCP - General Physician Passport Support Manager 01/22/19 12/05/19 Luann Lawrence NP Nurse Practitioner Nurse Practitioner 01/06/19 Adarsh Tuttle MD [address] [facility] [address] [place] [address] Consulting Physician Gastroenterology 02/22/19 Sebastien Martinez DO [address] [place] [id number] Medical Oncologist/Meat Boner And Slicer Hematology and Oncology 02/22/19 Guru Winters DO [address] [place] [address] Consulting Physician Gastroenterology 02/22/19 documented as of this encounter
--- OUTSIDE RECORDS SUMMARY | 2024-10-04 03:06 | XMS_ITS | Encounter Summary ---
Author Organization [facility] Facility Care Team Providers Care Wet Process Operator Name Role Phone Luann Lawrence PRODUCT MARKETING SPECIALIST Unavailable [phone] Barbra Goddard Primary Care Pr ovider Adarsh Tuttle MD Unavailable [phone] Sebastien Martinez DO Unavailable [phone] Guru Winters DO Unavailable [phone] Encounter Details Date Type Department Care Team (Latest Contact Info) Description 06/20/2019 Travel Social History Tobacco Use Types Packs/Day Years Used Date Smoking Tobacco: Former Cigarettes 1 2 Smokeless Tobacco: Never Alcohol Use Standard Drinks/Week Comments Yes 6 (1 standard drink = 0.6 oz pur e alcohol) Comments Unknown Sex and Gender Information Value Date Recorded Sex Assigned at Not on file Legal Sex Female 2:22 AM INSURANCE PROFESSIONAL Gender Identity Female 06/07/2020 8:39 AM CDT Sexual Orientation Not on file 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 file Not on mikie e documented as of this encounter Plan of Treatment Not on file documented as of this encounter Visit Diagnoses Not on filedocumented in this encounter Care Teams Wet Process Operator Relationship Specialty Start Date End Date Barbra Goddard PA PCP - General Physician Machine Operator Replanter 01/22/19 12/05/19 Luann Lawrence NP Nurse Practitioner Nurse Practitioner 01/06/19 Adarsh Tuttle MD [address] [facility] [address] [place] [address] Consulting Physician Gastroenterology 02/22/19 Sebastien Martinez DO [address] [place] [address] Medical Oncologist/Technology Project Manager Hematology and Oncology 02/22/19 Guru Winters DO [address] [place] [address] Consulting Physician Gastroenterology 02/22/19 documented as of this encounter
--- OUTSIDE RECORDS SUMMARY | 2024-10-04 03:06 | XMS_ITS | Encounter Summary ---
Author Organization [facility] Address [address] [place] [address] Phone Care Team Providers Care Instructional Support Technician Name Role Phone MelindaLuann oh Aditya ANUP Unavailable Barbra Goddard Primary Care Pr ovider Adarsh Tuttle MD Unavailable Sebastien Martinez DO Unavailable Guru Winters DO Unavailable [phone] Encounter Details Date Type Department Care Team (Late st Contact Info) Description 06/02/2019 Telephone [facility] Oncology [address] [facility] [place] [address] Sebastien Martinez, DO [address] [facility] [address] [place] [address] Social History Tobacco Use Types Packs/Day Years Used Date Smoking Tobacco: Former Cigarettes 1 2 Smokeless Tobacco: Never Alcohol Use Standard Drinks/Week Comments Yes 6 (1 standard drink = 0.6 oz pur e alcohol) Comments Unknown Sex and Gender Information Value Date Recorded Sex Assigned at Not on file Legal Sex Female 2:22 AM SPRAY GUN SIZER Gender Identity Female 06/07/2020 8:39 AM CDT Sexual Orientation Not on file 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 Abrams and schedule. Patient has seen him before. documented in this encounter Plan of Treatment Not on file documented as of this encounter Visit Diagnoses Not on filedocumented in this encounter Care Teams Instructional Support Technician Relationship Specialty Start Date End Date Barbra Goddard PA PCP - General Physician Practical Nurse 01/22/19 12/05/19 Luann Lawrence NP Nurse Practitioner Nurse Practitioner 01/06/19 Adarsh Tuttle MD [address] [address] Consulting Physician Gastroenterology 02/22/19 Sebastien Martinez DO [address] [place] [address] Medical Oncologist/Flight Test Mechanic Hematology and Oncology 02/22/19 Guru Winters DO [address] [place] [address] Consulting Physician Gastroenterology 02/22/19 documented as of this encounter
--- OUTSIDE RECORDS SUMMARY | 2024-10-04 03:06 | XMS_ITS | Encounter Summary ---
Author Organization [facility] Address [address] [place] [address] Phone Care Team Providers Care Casual Shoe Inspector Name Role Phone Luann Lawrence ANUP Unavailable [phone] Barbra Goddard Primary Care Pr ovider Adarsh Tuttle MD Unavailable [phone] Sebastien Martinez DO Unavailable [phone] Guru Winters DO Unavailable [phone] Encounter Details Date Type Department Care Team (Late st Contact Info) Description 09/01/2019 Orders Only [facility] Surgery [address] [facility] [address] [place] [phone] Cait Murrell PA [address] 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 Not on mikie e documented as of this encounter Plan of Treatment Not on file documented as of this encounter Visit Diagnoses Not on filedocumented in this encounter Orders Nursing Count Last Ordered Date First Orde red Date ONCBCN INITIATE TREATMENT REILLY MMARY (SURVIVORSHIP) 1 09/01/2019 documented in this encounter Care Teams Casual Shoe Inspector Relationship Specialty Start Date End Date RupeshBarbra NBA [place] PCP - General Physician Renewable Energy Consultant 01/22/19 12/05/19 Luann Lawrence, ANUP Nurse Practitioner Nurse Practitioner 01/06/19 Adarsh Tuttle MD [address] [facility] [address] [place] [address] Consulting Physician Gastroenterology 02/22/19 Sebastien Martinez DO [address] [place] [address] Medical Oncologist/In House Counsel Hematology and Oncology 02/22/19 Guru Winters DO [address] [place] [address] Consulting Physician Gastroenterology 02/22/19 documented as of this encounter
--- OUTSIDE RECORDS SUMMARY | 2024-10-04 03:06 | XMS_ITS | Encounter Summary ---
Author Organization [facility] Address [address] [place] [address] Phone Care Team Providers Care Sorting Machine Attendant Name Role Phone Luann Lawrence ANUP Unavailable [phone] Barbra Goddard Primary Care Pr ovider Adarsh Tuttle MD Unavailable Sebastien Martinez DO Unavailable [phone] Guru Winters DO Unavailable [phone] Encounter Details Date Type Department Care Team (Late st Contact Info) Description 06/08/2019 Orders Only [facility] Gastroenterology [address] [facility] Medical Office Building [address] [place] [phone] Marciano Garcia MD [address] [place] [address] Carcinoid tumor of stomach (Primary Dx) Social History Tobacco Use Types Packs/Day Years Used Date Smoking Tobacco: Former Cigarettes 1 2 Smokeless Tobacco: Never Alcohol Use Standard Drinks/Week Comments Yes 6 (1 standard drink = 0.6 oz pur e alcohol) Comments Unknown Sex and Gender Information Value Date Recorded Sex Assigned at Not on file Legal Sex Female 2:22 AM LABOR DELIVERY SPECIALIST Gender Identity Female 06/07/2020 8:39 AM CDT Sexual Orientation Not on file 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 Not on file Not on mikie e documented as of this encounter Plan of Treatment Not on file documented as of this encounter Visit Diagnoses Diagnosis Carcinoid tumor of stomach- Primary Benign carcinoid tumor of the stomach documented in this encounter Orders Case Request Count Last Ordered Date First Orde red Date CASE REQUEST GI 1 06/08/2019 documented in this encounter Care Teams Sorting Machine Attendant Relationship Specialty Start Date End Date Barbra Goddard PA PCP - General Physician Pediatric Medical Assistant 01/22/19 12/05/19 Luann Lawrence, ANUP Nurse Practitioner Nurse Practitioner 01/06/19 Adarsh Tuttle MD [address] [facility] [address] [place] [address] Consulting Physician Gastroenterology 02/22/19 Sebastien Martinez DO [address] [place] [id number] Medical Oncologist/Third Helper Hematology and Oncology 02/22/19 Guru Winters DO [address] [place] [address] Consulting Physician Gastroenterology 02/22/19 documented as of this encounter
--- OUTSIDE RECORDS SUMMARY | 2024-10-04 03:06 | XMS_ITS | Encounter Summary ---
Author Organization [facility] Address [address] [place] [address] Phone Care Team Providers Care Marine Architect Name Role Phone Luann Lawrence ANUP Unavailable [phone] Barbra Goddard Primary Care Pr ovider Adarsh Tuttle MD Unavailable [phone] Sebastien Martinez DO Unavailable [phone] Guru Winters DO Unavailable [phone] Encounter Details Date Type Department Care Team (Late st Contact Info) Description 06/05/2019 1:00 PM CDT Office Visit [facility] Surgery [address] [facility] 8th [place] [address] [place] [address] Gato Abrams MD [address] [facility] [id number] [place] [address] 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) Social History Tobacco Use Types Packs/Day Years Used Date Smoking Tobacco: Former Cigarettes 1 2 Smokeless Tobacco: Never Alcohol Use Standard Drinks/Week Comments Yes 6 (1 standard drink = 0.6 oz pur e alcohol) Comments Unknown Sex and Gender Information Value Date Recorded Sex Assigned at Not on file Legal Sex Female 2:22 AM ECOLOGIST TECHNICIAN Gender Identity Female 06/07/2020 8:39 AM CDT Sexual Orientation Not on file 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 Not on mikie e documented as of this encounter Last Filed Vital Signs Vital Sign Reading Time Taken Comments Blood Pressure 131/77 06/05/2019 1:28 PM CDT Pulse 69 06/05/2019 1:28 PM CDT Temperature 37 ??C (98.6 ??F) 06/05/2019 1:28 PM CDT Respiratory Rate - - Oxygen Saturation 100% 06/05/2019 1:28 PM CDT Inhaled Oxygen Concentration - - Weight 71.7 kg (158 lb) 06/05/2019 1:28 PM CDT Height 162.6 cm (5' 4 ) 06/05/2019 1:28 PM CDT Body Mass Index 27.12 06/05/2019 1:28 PM CDT documented in this encounter Progress Notes * Gato Abrams MD - 06/05/2019 1:00 PM CDT Images from the original note were not included. Gato Abrams M.D., F.A.C.S. Chief, Section of Surgical Oncology engine room operator [facility] Cancer [facility] - voice - fax USPS Mailing Address: Overnight Mailing Address: [address] [place] [address] [address] [place] [facility], [address] [place], [place] [address] [place], [place] [address] FOLLOW-UP EVALUATION DATE OF VISIT: 06/05/19 REASON FOR VISIT: Carcinoid tumors of the stomach, treated with endoscopic resection, and new pancreatic head lesion found on Dotatate PET/CT scan. Consult requested by Dr. Barbra Dan Nc*. HISTORY OF PRESENT ILLNESS: Ms. Gibson is [...] by Dr. Martinez who referredher back to Dr. Abrams. She has good appetite, denies any weight [...] This can be correlated endoscopically if indicated. PAST MEDICAL HISTORY: Past Medical History: Diagnosis [...] by mouth daily, Disp: , Rfl: ??? multivit with min-folic acid 200 mcg tablet,chewable, Take by mouth, Disp: , Rfl: ??? omeprazole (PriLOSEC) 20 mg capsule, omeprazole 20 mg capsule,delayed release, Disp: , Rfl: ??? pravastatin (PRAVACHOL) 40 mg tablet, , Disp: , Rfl: SOCIAL HISTORY: ??? Smoking History: reports that she has quit smoking. She has a 2.00 pack-year smoking history. She has never used smokeless tobacco. ??? Alcohol History: reports that she drinks about 3.6 oz of alcohol per week. ??? Drug use: reports that she does not use drugs. ??? Lives in [place] [address]*. No limitations on activity. She is able [...] note, there is no family history of dpthpv-vxqhylgrm-cfsoair disease or cancer. REVIEW OF SYSTEMS: The [...] mentation. PHYSICAL EXAMINATION: VITAL SIGNS: Weight - 71.7 kg (158 lb) pounds, Blood pressure - 131/77, Heart rate - 69 bpm, Temperature - 37 ??C (98.6 ??F) (Oral) ??F. GENERAL: Alert and oriented [...] tumor. Based on her MRI fromtoday, there is no panceatic lesion. With respect to her gastric carcinoids, she has this is the setting of no family history and anemia. Thus, I think she would benefit from consideration of distal gastrectomy/antrectomy to remove her gastrin source as a cause of her carcinoids. We discussed this surgery, which I would plan laparoscopically. She would like to further consider. We will have her undergo EUS and mapping to plan for surgery in the interm, and have her return to further discuss andplan surgery. I discussed this with Ms. Gibson, who understands and wishes to proceed. I answered all of her questions to her satisfaction. ATTENDING ATTESTATION: I, Gato Abrams M.D., the attending surgeon have seen and examined the patient both with Dr. Dasilva and independently. I agree with the history, physical exam, and findings asdescribed in the above note. Gato Abrams M.D., F.A.C.S. Chief, Section of Surgical Oncology engine room operator CC: Patient Care Team: NBA Ward as PCP - General (Physician Grinder Machine Setter) Luann Lawrence NP as Nurse Practitioner (Nurse Practitioner) Adarsh Tuttle MD as Consulting Physician (Gastroenterology) Sebastien Martinez DO as Medical Oncologist/Pull Over (Hematology and Oncology) Guru Winters DO as Consulting Physician (Gastroenterology) Plate Driller completed by [employer]. Plate Driller variances may occur. documented in this encounter Plan of Treatment Not on file documented as of this encounter Visit Diagnoses Diagnosis Malignant carcinoid tumor of stomach (HCC)- Primary Malignant carcinoid tumor of the stomach documented in this encounter Discontinued Medications Medication Sig Discontinue Reason Start Date End Da te ergocalciferol, vitamin D2, 2,000 unit tablet Take 1 tablet by mouth daily Duplicate order 06/05/2019 losartan (COZAAR) 50 mg tablet losartan 50 mg tablet Duplicate order 06/05/2019 metoprolol XL (TOPROL XL) 100 mg 24 hr tablet Take 50 mg by mouth Patient Discharge 02/07/2017 06/05/2019 documented as of this encounter Care Teams Marine Architect Relationship Specialty Start Date End Date Barbra Goddard PA PCP - General Physician Grinder Machine Setter 01/22/19 12/05/19 Luann Lawrence NP Nurse Practitioner Nurse Practitioner 01/06/19 Adarsh Tuttle MD [address] [facility] [address] [place] [address] Consulting Physician Gastroenterology 02/22/19 Sebastien Martinez DO [address] [place] [address] Medical Oncologist/Pull Over Hematology and Oncology 02/22/19 Guru Winters DO [address] [place] [address] Consulting Physician Gastroenterology 02/22/19 documented as of this encounter
--- OUTSIDE RECORDS SUMMARY | 2024-10-04 03:06 | XMS_ITS | Encounter Summary ---
Author Organization [facility] Facility Care Team Providers Care Web Analytics Developer Name Role Phone Luann Lawrence DEDENTER Unavailable [phone] Barbra Goddard Primary Care Pr ovider Adarsh Tuttle MD Unavailable [phone] Sebastien Martinez DO Unavailable [phone] Guru Winters DO Unavailable [phone] Encounter Details Date Type Department Care Team (Latest Contact Info) Description 07/26/2019 Travel Social History Tobacco Use Types Packs/Day Years Used Date Smoking Tobacco: Former Cigarettes 1 2 1 997 - 1998 Smokeless Tobacco: Never Alcohol Use Standard Drinks/Week Comments Yes 2 (1 standard drink = 0.6 oz pur e alcohol) Comments No Sex and Gender Information Value Date Recorded Sex Assigned at Not on file Legal Sex Female 2:22 AM COMMISSIONED SECURITY OFFICER Gender Identity Female 06/07/2020 8:39 AM CDT Sexual Orientation Not on file 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 Not on mikie e documented as of this encounter Plan of Treatment Not on file documented as of this encounter Visit Diagnoses Not on filedocumented in this encounter Care Teams Web Analytics Developer Relationship Specialty Start Date End Date Barbra Goddard PA PCP - General Physician Vp Of Global Marketing 01/22/19 12/05/19 Luann Lawrence NP Nurse Practitioner Nurse Practitioner 01/06/19 Adarsh Tuttle MD [address] [facility] [address] [place] [address] Consulting Physician Gastroenterology 02/22/19 Sebastien Martinez DO [address] [place] [address] Medical Oncologist/Kitchen Designer Hematology and Oncology 02/22/19 Guru Winters DO [address] [place] [address] Consulting Physician Gastroenterology 02/22/19 documented as of this encounter
--- OUTSIDE RECORDS SUMMARY | 2024-10-04 03:06 | XMS_ITS | Encounter Summary ---
Author Organization [facility] Address [address] [place] [address] Phone Care Team Providers Care Maintenance Shop Manager Name Role Phone MelindaLuann oh Aditya ANUP Unavailable Barbra Goddard Primary Care Pr ovider Adarsh Tuttle MD Unavailable [phone] Sebastien Martinez DO Unavailable [phone] Guru Winters DO Unavailable [phone] Encounter Details Date Type Department Care Team (Late st Contact Info) Description 07/04/2019 Telephone 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 Martinez to 09/06/2019. * Telephone Encounter - Tracy Brock RN - 07/04/2019 9:36 AM CDT Please see below and advise. * Telephone Encounter - Anna Kelly MA - 07/04/2019 9:06 AM CDT Patient seeing Dr. Martinez June as of right now. He thought she would have her surgery by now. Currently her surgery is not scheduled till August. Does he still want to see herSept?? Anna BISHOP documented in this encounter Plan of Treatment Not on file documented as of this encounter Visit Diagnoses Not on filedocumented in this encounter Care Teams Maintenance Shop Manager Relationship Specialty Start Date End Date Rupesh BarbraNBA Barcenas PCP - General Physician Compatibility Test Engineer 01/22/19 12/05/19 Luann Lawrence NP Nurse Practitioner Nurse Practitioner 01/06/19 Adarsh Tuttle MD [address] [facility] [address] [place] [address] Consulting Physician Gastroenterology 02/22/19 Sebastien Martinez DO [address] [address] Medical Oncologist/Survey Data Technician Hematology and Oncology 02/22/19 Guru Winters DO [address] [address] Consulting Physician Gastroenterology 02/22/19 documented as of this encounter
--- OUTSIDE RECORDS SUMMARY | 2024-10-04 03:06 | XMS_ITS | Encounter Summary ---
Author Organization [facility] Healthcare Address [address] [place] [address] Care Team Providers Care Livestock Showman Name Role Phone Luann Lawrence NP Unavailable [phone] Barbra Goddard Primary Care Pr ovider Adarsh Tuttle MD Unavailable [phone] Sebastien Martinez DO Unavailable [phone] Guru Winters DO Unavailable [phone] Encounter Details Date Type Department Care Team (Late st Contact Info) Description 06/27/2019 Telephone [facility] [place] [address] [address] Anna Simmons RN Social History Tobacco Use Types Packs/Day Years Used Date Smoking Tobacco: Former Cigarettes 1 2 Smokeless Tobacco: Never Alcohol Use Standard Drinks/Week Comments Yes 6 (1 standard drink = 0.6 oz pur e alcohol) Comments Unknown Sex and Gender Information Value Date Recorded Sex Assigned at Not on file Legal Sex Female 2:22 AM NEMATOLOGIST Gender Identity Female 06/07/2020 8:39 AM CDT Sexual Orientation Not on file 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 Planning for surgery. documented in this encounter Plan of Treatment Not on file documented as of this encounter Visit Diagnoses Not on filedocumented in this encounter Care Teams Livestock Showman Relationship Specialty Start Date End Date GilbertoBarbra thurston [employer] [place] PCP - General Physician Nuclear Radiation Engineer 01/22/19 12/05/19 Luann Lawrence, ANUP Nurse Practitioner Nurse Practitioner 01/06/19 Adarsh Tuttle MD [address] [facility] [address] [place] [address] Consulting Physician Gastroenterology 02/22/19 Sebastien Maritnez DO [address] [place] [address] Medical Oncologist/Banquet Houseperson Hematology and Oncology 02/22/19 Guru Winters DO [address] [place] [address] Consulting Physician Gastroenterology 02/22/19 documented as of this encounter
--- OUTSIDE RECORDS SUMMARY | 2024-10-04 03:06 | XMS_ITS | Encounter Summary ---
Author Organization [facility] Address [address] [place] [place] [address] [place] [address] Phone Care Team Providers Care Batteryman Name Role Phone Luann Lawrence ANUP Unavailable [phone] Barbra Goddard Primary Care Pr ovider Adarsh Tuttle MD Unavailable Sebastien Martinez DO Unavailable Guru Winters DO Unavailable [phone] Gato Abrams MD Unavailable Reason for Visit * Reason Comments Follow-up maglignant carcinoid tumor Encounter Details Date Type Department Care Team (Late st Contact Info) Description 09/18/2019 1:45 PM CROSS CUT SAW OPERATOR Office Visit [facility] Surgery [address] [facility] Advanced Medicine 8th [place] [address] [place] [address] Gato Abrams MD [address] [facility] [id number] [place], [place] [id number] Malignant carcinoid tumor of stomach (CMS/HCC) (Primary [...] on file Legal Sex Female 2:22 AM CROSS CUT SAW OPERATOR Gender Identity Female 06/07/2020 8:39 AM CDT Sexual Orientation Not on file 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 Not on mikie e documented as of this encounter Last Filed Vital Signs Vital Sign Reading Time Taken Comments Blood Pressure 109/72 09/18/2019 1:51 PM CROSS CUT SAW OPERATOR Pulse 63 09/18/2019 1:51 PM CROSS CUT SAW OPERATOR Temperature 36.7 ??C (98.1 ??F) 09/18/2019 1:51 PM CS T Respiratory Rate - - Oxygen Saturation 98% 09/18/2019 1:51 PM CROSS CUT SAW OPERATOR Inhaled Oxygen Concentration - - Weight 69.9 kg (154 lb) 09/18/2019 1:51 PM CROSS CUT SAW OPERATOR Height 162.6 cm (5' 4 ) 09/18/2019 1:51 PM CROSS CUT SAW OPERATOR Body Mass Index 26.43 09/18/2019 1:51 PM CROSS CUT SAW OPERATOR documented in this encounter Progress Notes * Gato Abrams MD - 09/18/2019 1:45 PM CST Images from the original note were not included. Gato Abrams M.D., F.A.C.S. Chief, Section of Surgical Oncology bean weigher [facility] Sand[facility] - voice - fax USPS Mailing Address: Overnight Mailing Address: [address] [place] [address] [place] [address] for [facility], [address] [place], [place] [address] [place], [place] [address] POST-OPERATIVE VISIT DATE OF VISIT: 09/18/19 REASON FOR VISIT: Ms. Gibson presents today for a post-operative visit after a laparoscopic distal gastrectomy with [...] bowel movements and urination. Her's appetite is steadily improving, tolerating 6-8 small meals per day. Her energy level is also increasing. She is increasing her activity level, walking 8-10 times per day. PHYSICAL EXAMINATION: VITAL SIGNS: Weight - pounds, Blood pressure - , Heart rate - bpm, Temperature - ??F. GENERAL: Alert and oriented x 3 in no apparent distress. ABDOMEN: Soft, non-tender, appropriate xu-incisional tenderness, no rebound/guarding. Incision ishealing well with no signs of infection or seroma. No evidence of hernia. ASSESSMENT: 54 y.o. 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 PLAN: I reviewed Ms. Gibson???s pathology report and provided her with a copy. We discussed the role of further treatment with adjuvant therapy, such as chemotherapy, hormonal therapy, and radiation for well-differentiated gastric carcinoids. We reviewed the data for adjuvant treatment, including the incidence of developing further metastatic disease and the impact of adjuvant treatment to reduce this incidence. We discussed the types of therapy typically used as adjuvant treatment, and the common side effects, treatment schemes, and outcomes. We also discussed the role of further follow-up imaging and blood work. In addition to our discussion and plans regarding post-operative care, I spent and additional 20 minutes discussing these items pertaining to adjuvant therapy. As there is no standard adjuvant therapy and she has very low-risk tumors, I agree with Dr. Martinez's assessment with no plans for adjuvant therapy and continued endoscopic and CT follow-up. I will see Ms. Gibson back in 6 months for continued follow-up. I will coordinate further imaging and endoscopic surveillance and follow-up studies with Dr. Martinez. I answered all of Ms. Gibson's questions to her satisfaction. Gato Abrams M.D., F.A.C.S. Chief, Section of Surgical Oncology bean weigher CC: Patient Care Team: NBA Ward as PCP - General (Physician Tactical Intelligence Officer) Luann Lawrence NP as Nurse Practitioner (Nurse Practitioner) Adarsh Tuttle MD as Consulting Physician (Gastroenterology) Sebastien Martinez DO as Medical Oncologist/Steamer Tender (Hematology and Oncology) Guru Winters DO as Consulting Physician (Gastroenterology) Gato Abrams MD as Surgeon (Surgical Oncology) Automotive Specialty Technician completed by [employer]. Automotive Specialty Technician variances may occur. S CUT SAW OPERATOR documented in this encounter Plan of Treatment Not on file documented as of this encounter Visit Diagnoses Diagnosis Malignant carcinoid tumor of stomach (HCC)- Primary Malignant carcinoid tumor of the stomach documented in this encounter Care Teams Batteryman Relationship Specialty Start Date End Date Rupesh BarbraNBA Barcenas PCP - General Physician Tactical Intelligence Officer 01/22/19 12/05/19 Luann Lawrence NP Nurse Practitioner Nurse Practitioner 01/06/19 Adarsh Tuttle MD [address] [facility] [address] [place] [address] Consulting Physician Gastroenterology 02/22/19 Sebastien Martinez DO [address] [place] [address] Medical Oncologist/Steamer Tender Hematology and Oncology 02/22/19 Guru Winters DO [address] [place] [address] Consulting Physician Gastroenterology 02/22/19 Gato Abrams MD [address] [place] [address] Surgeon Surgical Oncology 09/07/19 documented as of this encounter
--- OUTSIDE RECORDS SUMMARY | 2024-10-04 03:06 | XMS_ITS | Encounter Summary ---
Author Organization [facility] Healthcare Address [address] [place] [address] Care Team Providers Care Learning And Development Director Name Role Phone Luann Lawrence NP Unavailable [phone] Barbra Goddard Primary Care Pr ovider Adarsh Tuttle MD Unavailable [phone] Sebastien Martinez DO Unavailable [phone] Guru Winters DO Unavailable [phone] Encounter Details Date Type Department Care Team (Late st Contact Info) Description 06/20/2019 9:46 AM CDT Anesthesia Event [facility] [place] [address] [facility] [address] [place] [address] Rhonda Kelly MD [address] [place] [address] Allison Quintanilla CRNA [address] [place] [address] Anesthesia Record Procedure Summary Procedure Name Responsible Anesthesiologist Anesthesia Start Time Anesthesia Stop Time ESOPHAGOGASTRODUODENOSCOPY ENDOSCOPIC ULTRASOUND Rhonda Kelly MD 06/20/19 0946 06/20/19 1035 Events Date Time Event Comment 06/20/2019 0941 0946 An Start 0946 An Start Data 0946 In Room 0948 Start Supplemental O2 0949 An Data Art 0949 Patient Positioned Laterally 0951 An Induction The patient was reevaluated immediately before moderate or deep sedation use and before anesthesia induction. 0952 Bite Block Placed 0953 Proc Start 0953 Anesthesia Ready 1029 an stop data 1030 Out of Room 1035 Handoff to RN I completed my handoff [...] disposition at the time of handoff: PACU 1035 An Stop Meds Name Total midazolam PF 2 mg propofol 100 mg propofol 333.41 mg sodium chloride 0.9% infusion 0 mL * Agents Name O2% N2O O2 * Blood No blood administrations on file. Lines, Drains, and Airways Type Details Placement Removal Peripheral IV Placement Date: 01/03; Placement Time: 912; Catheter Size: 21 G; Orientation: Right; Location: Hand; Site Prep: Chlorhexidine; Technique: Anatomical landmarks; Inserted by: Aure Lacy RN; Insertion Attempts: 1; Removal Date: 06/20/19; Removal Time: 113; Removal Reason: Per protocol 06/20/19 09 by Aure Lacy RN 06/20/19 1133 by Felice Tran RN documented in this encounter Social History Tobacco Use Types Packs/Day Years Used Date Smoking Tobacco: Former Cigarettes 1 2 Smokeless Tobacco: Never Alcohol Use Standard Drinks/Week Comments Yes 6 (1 standard drink = 0.6 oz pur e alcohol) Comments Unknown Sex and Gender Information Value Date Recorded Sex Assigned at Not on file 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 Gender Identity Female 06/07/2020 8:39 AM CDT Sexual Orientation Not on file 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 file Not on file Not on mikie e documented as of this encounter OR Notes * Anesthesia Postprocedure Evaluation - Rhonda Kelly MD - 06/20/2019 10:59 AM CDT Patient: Fabiola Gibson Procedure Summary Date: 06/20/19 Room / Location: [facility] ENDOSCOPY ROOM 2 / [facility] Anesthesia Start: 945 Anesthesia Stop: 1034 Procedures: ESOPHAGOGASTRODUODENOSCOPY ULTRASOUND GUIDE LIMITED (N/A ) Endo Add On Esophagogastroduodenoscopy Biopsy (N/A ) Diagnosis: Carcinoid tumor of stomach (Carcinoid tumor of stomach [D3A.092]) Provider: Marciano Garcia MD Responsible Provider: Rhonda Kelly MD Anesthesia Type: MAC ASA Status: 2 Anesthesia Type: MAC Last vitals BP 94/54 Pulse 51 Temp 36.2 ??C (97.2 ??F) (Temporal) Resp 13 SpO2 98% Anesthesia Post Evaluation Patient location during evaluation: PACU Patient participation: complete - patient participated Level of consciousness: fully awake Pain score: 0 Pain management: adequate Airway patency: adequate Evidence of recall: no Anesthetic complications: no Cardiovascular status: acceptable Respiratory status: acceptable Hydration status: acceptable Pt is: normothermic Nausea/Vomiting status: none * Anesthesia Preprocedure Evaluation - Rhonda Kelly MD - 06/20/2019 9:40 AM CDT Anesthesia Evaluation Fabiola Gibson is a 53 y.o. female Procedure(s): US Endoscopy Pre-Op Diagnosis Codes: * Carcinoid tumor of stomach [D3A.092] Patient Active Problem List Diagnosis ??? Malignant carcinoid tumor of stomach (CMS/HCC) ??? Carcinoid tumor of stomach Past Medical History: Diagnosis Date ??? Anemia ??? 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 Carcinoid tumor of stomach ??? Depression ??? Hyperlipidemia ??? Hypertension ??? Rheumatoid arthritis (CMS/HCC) ??? Urinary tract infection Past Surgical History: Procedure Laterality Date ??? SECTION twice ??? COLONOSCOPY ??? ENDOMETRIAL ABLATION ??? ESOPHAGOGASTRODUODENOSCOPY ??? TUBAL LIGATION OB History None No Known Allergies HOME MEDICATIONS : buPROPion XL (WELLBUTRIN XL) 150 mg 24 hr tablet cholecalciferol (VITAMIN D3) 2,000 unit capsule escitalopram (LEXAPRO) 10 mg tablet hydroxychloroquine (PLAQUENIL) 200 mg tablet losartan-hydroCHLOROthiazide (HYZAAR) 50-12.5 mg per tablet multivit with min-folic acid 200 mcg tablet,chewable omeprazole (PriLOSEC) 20 mg capsule pravastatin (PRAVACHOL) 40 mg tablet Current Facility-Administered Medications: ??? sodium chloride 0.9% flush 0.5-20 mL, 0.5-20 mL, intra-catheter, PRN ??? sodium chloride 0.9% infusion, 30 mL/hr, intravenous, Continuous Social History Tobacco Use Smoking Status Former Smoker ??? Packs/day: 1.00 ??? Years: 2.00 ??? Pack years: 2.00 Smokeless Tobacco Never Used Substance and Sexual Activity Alcohol Use Yes ??? Alcohol/week: 3.6 oz ??? Types: 6 Cans of beer per week Substance and Sexual Activity Drug Use Never Family History Problem Relation Age of Onset ??? Dementia Mother ??? Emphysema Father ??? Other (Congestive Heart Failure) Father ??? No Known Problems Sister ??? Heart attack Brother ??? Ovarian cancer Mother's Sister ??? Colon cancer Mother's Brother ??? Cancer Maternal Grandmother PAT Physical Exam Vitals: 06/20/19 0905 BP: 117/72 Pulse: 59 Resp: 18 Temp: 36.1 ??C (97 ??F) SpO2: 100% PT: No results found for requested labs [...] requested labs within last 720 hours. Creatinine: 05/25/2019: 0.7 mg/dL DOS Physical Exam Medical history, medications, and allergies reviewed. Attestation: With today's edits, I endorse the the findings of the H&P dated: 06/20/2019. Airway Exam: Mallampati: II Cervical ROM: FROM Cardiovascular Exam: Rate: regular Rhythm: regular Pulmonary Exam: LCTA, bilat EENT Exam: trachea midline Dental Exam: Appears intact Skin Exam: Skin is warm. Current state: Patient's current state is cooperative. Anesthesia Plan ASA 2 My patient is approved for the Anesthesia Controlled Medication protocol when under care of a ACCOUNTANT COST Planned anesthesia: MAC Induction: Induction: intravenous. Postoperative Plan: No plan for postoperative opioid use. Patient's planned disposition post procedure is Outpatient. Informed Consent: Discussed plan with ACCOUNTANT COST. Anesthesia plan and risks discussed with patient. [...] MAR Action Action Date Dose Rate Site midazolam (VERSED) preservative free injection intravenous, Administer over 2 Minutes, As needed, Starting on Wed06/20/19 at 0951, Anesthesia Intra-op Given 06/20/2019 9:51 AM CDT 2 mg propofol (DIPRIVAN) IV intravenous, As needed, Starting on Wed06/20/19 at 0951, Anesthesia Intra-op Given 06/20/2019 9:51 AM CDT 100 mg propofol (DIPRIVAN) IV intravenous, Continuous PRN, Starting on Wed06/20/19 at 0951, Anesthesia Intra-op New Bag 06/20/2019 9:51 AM CDT 150 mcg/kg/min 64.53 mL/hr sodium chloride 0.9% infusion 30 mL/hr, intravenous, Continuous, Starting on Wed06/20/19 at 0945 New Bag 06/20/2019 9:32 AM CDT 50 mL/hr documented in this encounter Care Teams Learning And Development Director Relationship Specialty Start Date End Date Barbra Goddard PA PCP - General Physician Field Traffic Investigator 01/22/19 12/05/19 Luann Lawrence NP Nurse Practitioner Nurse Practitioner 01/06/19 Adarsh Tuttle MD [address] [facility] [address] [place] [address] Consulting Physician Gastroenterology 02/22/19 Sebastien Martinez DO [address] [place] [address] Medical Oncologist/Security Systems Integrator Hematology and Oncology 02/22/19 Guru Winters DO [facility] [address] Consulting Physician Gastroenterology 02/22/19 documented as of this encounter
--- OUTSIDE RECORDS SUMMARY | 2024-10-04 03:06 | XMS_ITS | Encounter Summary ---
Author Organization [facility] Address [address] [place] [address] Phone Care Team Providers Care Washing Machine Mechanic Name Role Phone Luann Lawrence NP Unavailable [phone] Barbra Goddard Primary Care Pr ovider Adarsh Tuttle MD Unavailable [phone] Vick Li DO Unavailable [phone] Guru Winters DO Unavailable [phone] Reason for Visit * Reason Comments Follow-up * Consultation (Routine) - Closed Specialty Diagnoses / Procedures Referred By Clemencia mendez Referred To Contact Oncology Diagnoses Neuroendocrine cancer (HCC) Malignant carcinoid tumor of stomach (HCC) Guru Winters DO Phone: tel: fax: [facility] Oncology [address] [address] Phone: tel: fax: Referral ID Status Reason Start Date Expiration Date V isits Requested Visits Authorized [id number] Closed Specialty Services Required 01/04/2019 10/17/2019 99 [phone] Encounter Details Date Type Department Care Team (Late st Contact Info) Description 06/02/2019 9:15 AM CDT Office Visit [facility] Oncology [address] [facility] [address] [place] [address] Vick Li, DO [address] [address] Malignant carcinoid tumor of stomach (CMS/HCC) (Primary [...] file Legal 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 Female 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 Gender Identity Female 06/07/2020 8:39 AM CDT Sexual Orientation Not on file 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 female. Primary Care Provider: NBA Ward Assessment/Plan Stage I carcinoid tumors of the stomach. 1. She has recurrent carcinoid tumor of the stomach and a short amount of time. MRI of the pancreasdid not show any signs of pancreatic neoplasms. 2. I did have a long discussion with the patient and her daughters regarding three different options at this point in time. 3. First option was continued with close surveillance of EGD and laboratory assessment. 4. Second option is to proceed with somatostatin analog injections along with close surveillance using EGD and serological testing. 5. Third option is to refer the patient back to Dr. Abrams for subtotal gastrectomy procedure. 6. Patient decided she would like to see Dr. Abrams for surgical intervention due to concerns that she had recurrent carcinoid tumor within a matter of 3-4 months from the prior endoscopic mucosal resection. 7. I will see the patient back here in about 6-8 weeks for follow-up. Vitamin B12 deficiency with anemia. 1. I will evaluate for pernicious anemia by obtaining intrinsic factor antibody and parietal cell antibody testing. 2. I recommend for her to begin vitamin B12 injections versus oral supplementation based on the above findings. Patient Active Problem List Diagnosis ??? Malignant carcinoid tumor of stomach (CMS/HCC) Diagnoses and all orders for this visit: Malignant carcinoid tumor of stomach (CMS/HCC) (Primary) - Clinic Appointment Request Follow up; VICK LI MD; Clinic Appointment Location: [facility] - Clinic Appointment Request Follow up; VICK LI; Clinic Appointment Location: [facility]; Future - Ambulatory referral to Surgical Oncology; Future Pernicious anemia - Parietal Cell Antibody; Future - Clinic Appointment Request Follow up; VICK LI; Clinic Appointment Location: [facility]; Future - Intrinsic factor blocking antibody; Future Subjective Interval History: 1. Stage I [...] was then referred to Dr. Tuttle at [facility] for EUS evaluation. Thiswas performed on January [...] denies any symptoms of carcinoid syndrome. 10. In January, Chromogranin A level was elevated 489. Fasting serotonin levels less than 10. 11. Twenty-four urine collection for 5-H IAA was normal. 12. PET CT scan with gallium donatate showed an abnormal focus of hypermetabolic activity involvingthe head of the pancreas measuring 1.5 cm. No other sites of suspicious hypermetabolic areas noted. 13. Due to concerns of a possible pancreatic neuroendocrine tumor, I referred the patient to Dr. Gato Abrams in Surgical Oncology Department at [facility]. 14. On February 24, she underwent an MRI of the pancreas which showed no evidence of any type of neoplastic process of the pancreas. It was completely normal. 15. At that time Dr. Abrams recommended continued EGD surveillance and did not recommend surgical intervention. 16. She returns for 3 month follow-up visit. She recently underwent repeat EGD by Dr. Winters on May 18. EGD showed several gastric polyps and these were removed by snare polypectomy procedure. 17. She also underwent a recent MRI of the pancreas along with laboratory assessment. Recently she was diagnosed with vitamin B12 deficiency and was started on vitamin B12 injections. Interval Notes: I have reviewed: allergies, current medications, past family history, past medical history, past social history, past surgical history and problem list HPI Review of Systems Constitutional: Negative. Negative for appetite change and chills. HENT: Negative. Eyes: Negative. Respiratory: Negative. Cardiovascular: Negative. Gastrointestinal: Negative. Endocrine: Negative. Genitourinary: Negative. Musculoskeletal: Positive for arthralgias. Skin: Negative. Neurological: Negative. Hematological: Negative. Psychiatric/Behavioral: Negative. Objective Physical Exam: Vital Signs for this encounter: BSA: 1.78 meters squared BP 135/87 (BP Location: Right arm) Pulse 68 Ht 162.6 cm (5' 4 ) Wt 70 kg (154 lb 6.4 oz) SpO2 98% BMI 26.50 kg/m?? Physical Exam Constitutional: She is oriented [...] Creatinine POC Date Value Ref Range Status 05/25/2019 0.7 0.6 - 1.1 mg/dL Final 1. MRI of the pancreas with without contrast does not show any signs of neoplasm of the pancreas. It is completely normal appearing pancreas. However there are some mild T2 enhancement of the greatercurvature of the stomach. 2. Surgical pathology report from the polypectomy procedure performed on May 18 revealed well differentiated neuroendocrine tumor consistent with recurrent carcinoid in 2 of 3 polyps. 3. Chromogranin A level is better and decreased down to 256. 4. CBC shows hemoglobin 10.2 with a vitamin B12 level of 177 documented in this encounter Plan of Treatment Not on file documented as of this encounter Visit Diagnoses Diagnosis Malignant carcinoid tumor of stomach (HCC)- Primary Malignant carcinoid tumor of the stomach Pernicious anemia documented in this encounter Discontinued Medications Medication Sig Discontinue Reason Start Date End Da te buPROPion XL (WELLBUTRIN XL) 300 mg 24 hr tablet Take 150 mg by mouth daily Formulary change 01/05/2018 06/02/2019 ciprofloxacin (CIPRO) 500 mg tablet Take 500 mg by mouth every 12 (twelve) hours Therapy completed 01/06/2019 06/02/2019 hydroxychloroquine (PLAQUENIL) 200 mg tablet Take 400 mg by mouth daily Duplicate order 06/02/2019 documented as of this encounter Historical Medications * This list may reflect changes made after this encounter. buPROPion XL (WELLBUTRIN XL) 150 mg 24 hr tabletIndication s:Anxiety with Depression Take 150 mg by mouth every morning 03/12/2019 0 losartan (COZAAR) 50 mg tablet losartan 50 mg tablet 9 ergocalciferol, vitamin D2, 2,000 unit tablet Take 1 tablet by mouth daily 9 omeprazole (PriLOSEC) 20 mg capsule omeprazole 20 mg capsule,delayed release 9 added in this encounter Orders Lab Orders Without Results Count Last Ordered D ate First Ordered Date INTRINSIC FACTOR BLOCKING ANTIBODY 1 2018 PARIETAL CELL AB 1 06/02/2019 Appointment Requests Count Last Ordered Date Fi rst Ordered Date ONCBCN CLINIC APPOINTMENT REQUEST 2 019 06/02/2019 documented in this encounter Care Teams Washing Machine Mechanic Relationship Specialty Start Date End Date Barbra Goddard PA PCP - General Physician Test Administrator 01/22/19 12/05/19 Luann Lawrence NP Nurse Practitioner Nurse Practitioner 01/06/19 Adarsh Tuttle MD [address] [facility] [address] [place] [address] Consulting Physician Gastroenterology 02/22/19 Vick Li DO [address] [place] [address] Medical Oncologist/Stretch Machine Operator Hematology and Oncology 02/22/19 Guru Winters DO [address] [place] [address] Consulting Physician Gastroenterology 02/22/19 documented as of this encounter
--- OUTSIDE RECORDS SUMMARY | 2024-10-04 03:07 | XMS_ITS | Encounter Summary ---
Author Organization [facility] Address [address] [place] [address] Care Team Providers Care Customer Experience Leader Name Role Phone Luann Lawrenceele PLANNER INTERN Unavailable [phone] Unknown, Notinfile Primary Care Provider Unavail able Encounter Details Date Type Department Care Team (Late st Contact Info) Description 01/13/2019 1:16 PM CDT Anesthesia Event [facility] [address] [place] [address] Donna Velasquez MD [address] [facility] [place] [address] Anesthesia Record Procedure Summary Procedure Name Responsible Anesthesiologist Anesthesia Start Time Anesthesia Stop Time ESOPHAGOGASTRODUODENOSCOPY ULTRASOUND GUIDE LIMITED Donna Velasquez MD 01/13/19 1316 01/13/19 1409 Events Date Time Event Comment 01/13/2019 1314 1316 An Start 1316 An Start Data 1316 In Room 1319 Patient Positioned Laterally 1320 Bite Block Placed 1320 An Induction The patient was reevaluated immediately before moderate or deep sedation use and before anesthesia induction. 1322 Anesthesia Ready 1323 Proc Start 1400 an stop data 1402 Out of Room 1409 Handoff to RN I completed my handoff [...] disposition at the time of handoff: PACU 1409 An Stop Meds Name Total lidocaine (cardiac) syringe 2 % 5 mL propofol 650 mg fentaNYL 25 mcg glycopyrrolate 0.3 mg Lactated Ringer's (LR) infusion 400 mL * Agents Name O2 * Blood No blood administrations on file. Lines, Drains, and Airways Type Details Placement Removal Peripheral IV Placement Date: 12/17 07/06; Placement Time: 1307; Catheter Size: 20 G; Orientation: Right; Location: Hand; Site Prep: Chlorhexidine; Insertion Attempts: 1; Patient Tolerance: Tolerated well; Removal Date: 01/13/19; Removal Time: 1446 01/13/19 1307 by Lani Medeiros RN 01/13/19 1446 by Yanelis Aaron RN documented in this encounter Social History Tobacco Use Types Packs/Day Years Used Date Smoking Tobacco: Former Cigarettes 1 2 Smokeless Tobacco: Never Alcohol Use Standard Drinks/Week Comments Yes 6 (1 standard drink = 0.6 oz pur e alcohol) Comments Unknown Sex and Gender Information Value Date Recorded Sex Assigned at Not on file 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 Gender Identity Female 06/07/2020 8:39 AM CDT Sexual Orientation Not on file 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 Not on mikie e documented as of this encounter OR Notes * Anesthesia Postprocedure Evaluation - Bjorn Cantu CRNA - 01/13/2019 2:09 PM CDT Patient: Fabiola Gibson Procedure Summary Date: 01/13/19 Room / [facility]: [facility] Anesthesia Start: 131 Anesthesia Stop: 140 Procedure: EUS (N/A ) Diagnosis: (R93.89) Provider: Adarsh Tuttle MD Responsible Provider: Donna Velasquez MD Anesthesia Type: general/TIVA ASA Status: 3 Anesthesia Type: general/TIVA Last vitals BP 123/73 Pulse 63 Temp 36.8 ??C (98.2 ??F) (Temporal) Resp 17 SpO2 99% Anesthesia Post Evaluation Patient location during evaluation: PACU (GI recovery area) Patient participation: complete - patient participated Level of consciousness: arouses complex 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 * Anesthesia Preprocedure Evaluation - Donna Velasquez MD - 01/13/2019 1:07 PM CDT Anesthesia Evaluation Fabiola Gibson is a 53 y.o. female Procedure(s): EUS * No Diagnosis Codes entered * HISTORY Past Medical History Neurological + Psychiatric history - depression Cardiovascular + Hypertension + Hyperlipidemia Hepatic / Heme + History of anemia Endocrine / Other + Cancer history Cancer type: stomach cancer. + Rheumatological disease - rheumatoid arthritis. Functional Capacity Functional capacity: 4-6 METs Review of Systems Pertinent negatives: SOB and recent cold/flu Patient Active Problem List Diagnosis ??? Malignant carcinoid tumor of stomach (CMS/HCC) Past Medical History: Diagnosis Date ??? Anemia ??? 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 Depression ??? Hyperlipidemia ??? Hypertension ??? Rheumatoid arthritis (CMS/HCC) ??? Urinary tract infection Past Surgical History: Procedure Laterality Date ??? SECTION ??? COLONOSCOPY ??? ENDOMETRIAL ABLATION ??? ESOPHAGOGASTRODUODENOSCOPY ??? TUBAL LIGATION OB History None No Known Allergies HOME MEDICATIONS : buPROPion XL (WELLBUTRIN XL) 300 mg 24 hr tablet cholecalciferol (VITAMIN D3) 2,000 unit capsule ciprofloxacin (CIPRO) 500 mg tablet escitalopram (LEXAPRO) 10 mg tablet hydroxychloroquine (PLAQUENIL) 200 mg tablet losartan-hydroCHLOROthiazide (HYZAAR) 50-12.5 mg per tablet metoprolol XL (TOPROL XL) 100 mg 24 hr tablet multivit with min-folic acid 200 mcg tablet,chewable pravastatin (PRAVACHOL) 40 mg tablet multivitamin tablet,chewable No current facility-administered medications for this encounter. Social History Tobacco Use Smoking Status Former Smoker ??? Packs/day: 1.00 ??? Years: 2.00 ??? Pack years: 2.00 Smokeless Tobacco Never Used Substance and Sexual Activity Alcohol Use Yes ??? Alcohol/week: 3.6 oz ??? Types: 6 Cans of beer per week Substance and Sexual Activity Drug Use Never Family History Problem Relation Age of Onset ??? No Known Problems Mother ??? No Known Problems Father ??? No Known Problems Sister ??? No Known Problems Brother ??? Ovarian cancer Mother's Sister ??? Colon cancer Mother's Brother PAT Physical Exam Vitals: 01/13/19 1304 BP: 120/69 Pulse: (!) 49 Resp: 14 Temp: 36.8 ??C (98.2 ??F) SpO2: 100% PT: No results found [...] and allergies reviewed. Attestation: This PAT evaluation 01/13/2019. Airway Exam: Mallampati: II Cervical ROM: FROM TM distance: >4 Jaw ROM: full Cardiovascular Exam: Rate: bradycardia Rhythm: regular (Wide complex bradycardia) Pulmonary Exam: LCTA, bilat Dental Exam: Otherwise appears intact Anesthesia Plan ASA 3 My patient is approved for the Anesthesia Controlled Medication protocol when under care of a DYE FEEDER Planned anesthesia: General/TIVA Team communication plan: mask Induction: Induction: intravenous. Postoperative Plan: No plan for postoperative opioid use. No postoperative mechanical ventilation intended. Patient's planned disposition post procedure is Outpatient. Informed Consent: Discussed plan with DYE FEEDER. Anesthesia plan and risks discussed with patient. [...] MAR Action Action Date Dose Rate Site fentaNYL (SUBLIMAZE) preservative free injection intravenous, As needed, Starting on Wed01/13/19 at 1342, Anesthesia Intra-op Given 01/13/2019 1:42 PM CDT 25 mcg glycopyrrolate (ROBINUL) injection intravenous, Administer over 1 Minutes, As needed, Starting on Wed01/13/19 at 1340, Anesthesia Intra-op Given 01/13/2019 1:43 PM CDT 0.1 mg Given 01/13/2019 1:40 PM CDT 0.2 mg lidocaine (cardiac) (XYLOCAINE) preservative free injection intravenous, As needed, Starting on Wed01/13/19 at 1320, Anesthesia Intra-op, Indications: Ventricular ArrhythmiasIndications:Ventricular Arrhythmias Given 01/13/2019 1:20 PM CDT 5 mL propofol (DIPRIVAN) IV intravenous, As needed, Starting on Wed01/13/19 at 1319, Anesthesia Intra-op Given 01/13/2019 1:19 PM CDT 650 mg documented in this encounter Care Teams Customer Experience Leader Relationship Specialty Start Date End Date Unknown, Notinfile PCP - General 01/13/19 01/21/19 Luann Lawrence NP Nurse Practitioner Nurse Practitioner 01/06/19 documented as of this encounter
--- OUTSIDE RECORDS SUMMARY | 2024-10-04 03:07 | XMS_ITS | Encounter Summary ---
Author Organization [facility] Address [address] [address] Care Team Providers Care Insole And Outsole Splitter Name Role Phone Unknown, Sue Primary Care Provider Unavail able Luann Lawrence NP Unavailable [phone] Barbra Goddard Primary Care Pr ovider Unknown, Seu Primary Care Provider Unavail able Barbra Goddard Primary Care Pr ovider Adarsh Tuttle MD Unavailable [phone] Sebastien Martinez DO Unavailable [phone] Guru Winters DO Unavailable [phone] Gato Abrams MD Unavailable [phone] Elizabeth Borrego Primary Care Provider [phone] Barbra Goddard Primary Care Pr ovider Elizabeth Borrego Primary Care Provider [phone] Encounter Details Date Type Department Care Team (Late st Contact Info) Description 11/28/2018 Orders Only [facility] [address] [place] [address] Scanning, Provider Social History Tobacco Use Types Packs/Day Years Used Date Smoking Tobacco: Never Assessed PHQ-2 Answer Date Recorded PHQ-2 Total Score (If total score is 3 or more points, staff should administer the PHQ-9) 0 10/01/2020 Comments Unknown Sex and Gender Information Value Date Recorded Sex Assigned at Not on file 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 08/21/2020 08/23/2020 12/19/2020 3:[address] documented as of this encounter Care Teams Insole And Outsole Splitter Relationship Specialty Start Date End Date Unknown, Notinfile PCP - General 01/05/19 01/09/19 Barbra Goddard PA PCP - General Physician Asthma Educator 01/10/19 01/12/19 Unknown, Notinfile PCP - General 01/13/19 01/21/19 Barbra Goddard PA PCP - General Physician Asthma Educator 01/22/19 12/05/19 Elizabeth Borrego PA [address] [facility] [address] [place] [address] PCP - General Internal Medicine 12/06/19 02/12/20 Barbra Goddard PA PCP - General Physician Asthma Educator 02/13/20 03/24/20 Elizabeth Borrego PA [address] [address] [place] [address] PCP - General Internal Medicine 03/25/20 09/27/23 Luann Lawrence NP Nurse Practitioner Nurse Practitioner 01/06/19 Adarsh Tuttle MD [address] [facility] [address] [place] [address] Consulting Physician Gastroenterology 02/22/19 Sebastien Martinez DO [address] [place] [address] Medical Oncologist/Hematologis t Hematology and Oncology 02/22/19 Guru Winters DO [address] [place] [address] Consulting Physician Gastroenterology 02/22/19 Gato Abrams MD [address] [place] [id number] Surgeon Surgical Oncology 09/07/19 documented as of this encounter
--- OUTSIDE RECORDS SUMMARY | 2024-10-04 03:07 | XMS_ITS | Encounter Summary ---
Author Organization [facility] Address [address] [place] [address] Phone Care Team Providers Care Expressive Art Therapist Name Role Phone MelindaLuann ENTRY LEVEL ELECTRICIAN Unavailable [phone] Barbra Goddard Primary Care Pr ovider Encounter Details Date Type Department Care Team (Late st Contact Info) Description 01/11/2019 Telephone [facility] [address] [place] [address] Sebastien Martinez, DO 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 Advised that it should be. Patient v/u. documented in this encounter Plan of Treatment Not on file documented as of this encounter Visit Diagnoses Not on filedocumented in this encounter Care Teams Expressive Art Therapist Relationship Specialty Start Date End Date Barbra Goddard PA PCP - General Physician Accounting File Clerk 01/10/19 01/12/19 Luann Lawrence NP Nurse Practitioner Nurse Practitioner 01/06/19 documented as of this encounter
--- OUTSIDE RECORDS SUMMARY | 2024-10-04 03:07 | XMS_ITS | Encounter Summary ---
Author Organization [facility] Healthcare Address [address] [place] [address] Care Team Providers Care Bar Welder Name Role Phone Luann Lawrenceele BRATTICE BUILDER Unavailable [phone] Unknown, Notinfile Primary Care Provider Unavail able Encounter Details Date Type Department Care Team (Latest Contact Info) Description 01/13/2019 10:53 AM CDT - 01/13/2019 2:55 PM CDT Hospital Encounter [facility] [address] [place] [id number] Adarsh Tuttle MD [address] [facility] [address] [place], [place] [id number] Abnormal CT scan Discharge Disposition: Discharge to home or self care Social History Tobacco Use Types Packs/Day Years Used Date Smoking Tobacco: Former Cigarettes 1 2 Smokeless Tobacco: Never Alcohol Use Standard Drinks/Week Comments Yes 6 (1 standard drink = 0.6 oz pur e alcohol) Comments Unknown Sex and Gender Information Value Date Recorded Sex Assigned at Not on file Legal Sex Female 2:22 AM SENIOR PIPING 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 Gender Identity Female 06/07/2020 8:39 AM CDT Sexual Orientation Not on file 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 Not on file Not on mikie e documented as of this encounter Last Filed Vital Signs Vital Sign Reading Time Taken Comments Blood Pressure 129/77 01/13/2019 2:20 PM CDT Pulse 57 01/13/2019 2:20 PM CDT Temperature 36.8 ??C (98.2 ??F) 01/13/2019 1:04 PM CD T Respiratory Rate 13 01/13/2019 2:20 PM CDT Oxygen Saturation 100% 01/13/2019 2:20 PM CDT Inhaled Oxygen Concentration - - Weight - - Height 162.6 cm (5' 4 ) 01/13/2019 1:04 PM CDT Body Mass Index - - documented in this encounter Medications at Time of Discharge cholecalciferol (VITAMIN D-3) 1,000 unit capsuleIndicatio ns:Vitamin D Deficiency Take 2 capsules (2,000 Units total) by mouth polish maker before breakfast buPROPion XL (WELLBUTRIN XL) 300 [...] Take 400 mg by mouth daily 9 losartan-hydroCH LOROthiazide (HYZAAR) 50-12.5 mg per tabletIndication [...] H&P Notes * Adarsh Tuttle MD - 01/13/2019 1:19 PM CDT ENDOSCOPY PRE-PROCEDURE MEDICAL HISTORY & PHYSICAL Juanjo Gibson 53 y.o. female BP 120/69 Pulse (!) 49 Temp 36.8 ??C (98.2 ??F) (Temporal) Resp 14 Ht 162.6 cm (5' 4 ) SpO2 100% BMI 25.58 kg/m?? History: Past Medical History: Diagnosis Date ??? Anemia ??? 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 Depression ??? Hyperlipidemia ??? Hypertension ??? Rheumatoid arthritis (CMS/HCC) ??? Urinary tract infection No Known Allergies Medications Prior to Admission Medication Sig Dispense Refill Last Dose ??? buPROPion XL (WELLBUTRIN XL) 300 mg 24 hr tablet Take 150 mg by mouth daily 01/13/2019 at Unknown time ??? cholecalciferol (VITAMIN D3) 2,000 unit capsule 3,000 Units 01/13/2019 at Unknown time ??? ciprofloxacin (CIPRO) 500 mg tablet Take 500 mg by mouth every 12 (twelve) hours 0 01/13/2019 atUnknown time ??? escitalopram (LEXAPRO) 10 mg tablet Take 10 mg by mouth daily 01/13/2019 at Unknown time ??? hydroxychloroquine (PLAQUENIL) 200 mg tablet Take 400 mg by mouth daily 01/13/2019 at Unknown time ??? losartan-hydroCHLOROthiazide (HYZAAR) 50-12.5 mg per tablet Take 1 tablet by mouth daily 01/13/2019 at Unknown time ??? metoprolol XL (TOPROL XL) 100 mg 24 hr tablet Take 50 mg by mouth 01/13/2019 at Unknown time ??? multivit with min-folic acid 200 mcg tablet,chewable Take by mouth 01/12/2019 at Unknown time ??? pravastatin (PRAVACHOL) 40 mg tablet 01/13/2019 at Unknown time Current Facility-Administered Medications Medication Dose Route Frequency Provider Last Rate Last Dose ??? Lactated Ringer's (LR) infusion 30 mL/hr intravenous Continuous Adarsh Tuttle MD 30 mL/hr at01/13/19 1312 30 mL/hr at 01/13/19 1312 ??? sodium chloride 0.9% flush 0.5-20 mL [...] with no functional limitations Indication(s) for Procedure: gastric neuroendocrine tumor Procedure Planned: EUS Adarsh Tuttle MD documented in this encounter Procedure Notes * Adarsh Tuttle MD - 01/13/2019 1:05 PM CDTAssociated Order(s): EUS ENDOSCOPY LAB Patient Name: Juanjo Gibson Procedure Date: 01/13/2019 1:05 PM Admit Type: Outpatient Room: [facility] Date of : 1965 Instrument Name: [id number] Gender: Female Note Status: Finalized Procedure: Upper EUS Indications: Gastric NET (type one) Providers: Adarsh Tuttle MD Referring MD: Georgia MontanaN.PGregor Medicines: Monitored Anesthesia Care Complications: No immediate complications. Estimated blood loss: Minimal. Estimated Blood Loss: Estimated blood loss was minimal. Procedure: The risks, benefits and alternatives were discussed and informed consent was obtained.The Endosonoscope was introduced through the mouth, and advanced to the second part of duodenum The Endoscope was introduced through the mouth, and advanced to the duodenal bulb The upper EUS was accomplished without difficulty. The patient tolerated the procedure well. Findings: Endoscopic Finding : The examined esophagus was normal. Two 5 mm mucosal papules (nodules) were found in the cardia and in the gastric body. Preparations were made for mucosal resection. Two bands were deployed. one of band in the cardia caused the surface mucous to slough (due to prior polypectomy) and the tissue was suctioned. The other lesion was banded. Due to technical problems with the cautery system the lesion could not be resected. The band will slough off the remaining tissue. The examined duodenum was normal. Endosonographic Finding : The region of the celiac plexus [...] of the stomach were unremarkable. No masses were identified. No lymphadenopathy seen. Impression: - Gastric atrophy in the body of the stomach - Scar/edema was noted at 2 of the NET resected sites. The third NET site has healed. One was in the cardia and other in the body/lesser curve. There was no sonographic evidence to suggest residual NET lesion at these sites. Bands were placed to ensure any remaining NET tissue would slough off. Recommendation: - The patient will be observed post-procedure, until all discharge criteria are met. - No aspirin, ibuprofen, naproxen, or other non-steroidal anti-inflammatory drugs for 7 days after polyp removal. - Await path results. - Repeat the upper endoscopic ultrasound in 1 year for surveillance. - The findings and recommendations were discussed with the patient and their family. Attending Participation: I personally performed the entire procedure. Electronically signed by Adarsh Tuttle MD Adarsh Tuttle MD 01/13/2019 2:01:19 PM This document was signed electronically. Number of Addenda: 0 Note Initiated On: 01/13/2019 1:05 PM documented in this encounter Plan of Treatment Pending Results Name Type Priority Associated Diagnoses Date /Time US Endoscopy Endo Imaging Procedure IP Routine 01/13/2019 2:56 PM CDT documented as of this encounter Procedures Procedure Name Priority Date/Time Associated Diagnosis Comments US ENDOSCOPIC IP Routine 01/13/2019 2:56 PM CDT SURGICAL PATHOLOGY Routine 01/13/2019 1:[address] scan ESOPHAGOGASTRODUODENOSCOPY ULTRASOUND GUIDE LIMITED 01/13/2019 1:16 PM CDT R93.89 EUS 01/13/2019 1:05 PM CDT documented in this encounter Results * Surgical pathology (01/13/2019 1:32 PM CDT) Tissue (Gastric/Stomach biopsy) 01/13/2019 1:32 PM CDT Comment:Gastric neuro endocr ine tumor Narrative PATHOLOGY [facility] - 01/16/2019 3:51 PM CDT [address] ??[address] Tele: ?? Kinga Carmona MD - Enologist ?? Sha Birceno - Furniture Arranger SURGICAL PATHOLOGY REPORT Patient Name: ??JUANJO GIBSONGregor Address: ??[address] [place] [address] Gender: ??F : ??1965 (Age: 53) Service: ??Gastro Location: ??G48, ?? Hospital #: ??[id number] Patient Type: ?? Same Day Surgery Accession #: ? [id number] Taken: ? 01/13/2019 Received ? 01/13/2019 Reported: ? 01/16/2019 Physician(s): ? Dr. Adarsh Tuttle M.D. Barbra Menossi DIAGNOSIS: Stomach, gastric nodule-biopsy: ? - Repair - Foveolar hyperplasia - Intestinal metaplasia - Chronic gastritis - Negative for H. pylori - Rare atypical cellular cluster of undetermined clinical significance, see microscopic b/01/16/2019 10:21 Examining Pathologist: Raghavendra Saxena M.D. Report Reviewed and Electronically Signed By ??Raghavendra Saxena M.D. SPECIMEN TYPE: A: GASTRIC NODULE BX CLINICAL IMPRESSION AND HISTORY: Gastric NET. ??Two 5 mm mucosal papules were found in the cardia and in the gastric body. ??Preparations were made for mucosal resection. ??Two bands were deployed, one of the bands in the cardiac cause the surface mucosa to slough (due to prior polypectomy) and the tissue was suctioned. ??The other lesion was banded. ??Due to technical problems with the cautery system the lesion could not be resected. The band will slough off the remaining tissue. GROSS DESCRIPTION: Received in a container of formalin labeled with the patient's name Juanjo Gibson and gastric nodule biopsy contains multiple pink-mitchell tissue fragments measuring 1.1 x 0.4 x 0.1 cm in aggregate. ??Due to the color and size of the specimen, hematoxylin is used. The specimen is filtered and submitted entirely in cassette A1. [facility]/01/13/2019 16:50 ? [facility] MICROSCOPIC DESCRIPTION: A multitude of changes are seen. ??In one segment there is a potential area of a well differentiated neuroendocrine lesional material. This is quite small. ??In this region no mitotic figures are noted. ??In an attempt to further subclassify this small focus a limited panel of immunohistochemistry stains are performed as well as a recut section. ??Focally, in addition, there is fairly extensive reparative type material noted. ??Much of the material shows some reactive foveolar type elements with some intermixed goblet cell change. ??The lamina propria is chronically inflamed. ??On a deeper section the suspicious aggregate is essentially absent. ??See below IHC staining evaluation. The attempted immunohistochemistry findings are as follows; while there is positivity within normal elements and in metaplastic elements of the stomach with synaptophysin and chromogranin, I do not identify any definitive well-differentiated neuroendocrine neoplastic processes. ??Controls are appropriate. ??Immunohistochemistry stain for Helicobacter pylori is negative for pathologic surface pathologic organisms with good control. Clerical Data Follows A; [id number], [id number], 05297(2) REPORT IMAGES AND/OR SCANNED DOCUMENTS ONLY VIEWABLE IN PDF FORMAT The immunohistochemical test(s) cited in this report, if any, was developed and its performance characteristics determined by [facility] Pathology Department. ??It has not been cleared or approved by the U.S. Food and Drug Administration. ??The FDA has determined that such clearance or approval is not necessary. ??This test is used for clinical purposes. ??It should not be regarded as investigational or for research. ??[facility] is certified under the Clinical Laboratory Improvement Amendments of 1988 (CLIA) as qualified to perform high complexity testing. ??Immunostains were performed on formalin-fixed paraffin embedded tissue using a polymer diaminobenzidine chromogen detection system. Antibodies used may include clone SP1 (rabbit monoclonal, estrogen receptor), clone 1E2 (rabbit monoclonal progesterone receptor), Ki-67 (rabbit monoclonal, 30-9), and CD117 (rabbit polyclonal, c-kit). Adarsh Tuttle MD LAB PATHOLOGY ORDERABLES Devika l Result PATHOLOGY [facility] Laboratory Receiving [address] [place] [address] * EUS (01/13/2019 1:05 PM CDT) Anatomical Region Laterality Modality Other Narrative Procedure Note Adarsh Tuttle MD - 01/13/2019 1:05 PM CDT ENDOSCOPY LAB Patient Name: Juanjo Gibson Procedure Date: 01/13/2019 1:05 PM Admit Type: Outpatient Room: [facility] Date of : 1965 Instrument Name:[id number] Gender: Female Note Status: Finalized Procedure: Upper EUS Indications: Gastric NET (type one) Providers: Adarsh Tuttle MD Referring MD: Matthew Montana Medicines: Monitored Anesthesia Care Complications: No immediate complications. Estimated blood loss:Minimal. Estimated Blood Loss: Estimated blood loss was minimal. Procedure: The risks, benefits and alternatives were discussed and informed consent was obtained.The Endosonoscope was introduced through the mouth, and advanced to thesecond part of duodenum The Endoscope was introduced throughthe mouth, and advanced to the duodenal bulb The upper EUSwas accomplished without difficulty. The patient toleratedthe procedure well. Findings: Endoscopic Finding : The examined esophagus was normal. Two 5 mm mucosal papules (nodules) were found in the cardia and inthe gastric body. Preparations were made for mucosal resection. Two bands were deployed. one of band in the cardia caused the surface mucous to slough (due to prior polypectomy) and the tissue was suctioned. The other lesion was banded. Due to technical problems with the cautery system the lesion could not be resected. The band will slough off the remaining tissue. The examined duodenum was normal. Endosonographic Finding : The region of the celiac plexus [...] images of the stomach were unremarkable. No masseswere identified. No lymphadenopathy seen. Impression: - Gastric atrophy in the body of the stomach - Scar/edema was noted at 2 of the NET resected sites.The third NET site has healed. One was in the cardia andother in the body/lesser curve. There was no sonographic evidence to suggest residual NET lesion at these sites. Bands were placed to ensure any remaining NET tissuewould slough off. Recommendation: - The patient will be observed post-procedure, untilall discharge criteria are met. - No aspirin, ibuprofen, naproxen, or othernon-steroidal anti-inflammatory drugs for 7 days after polypremoval. - Await path results. - Repeat the upper endoscopic ultrasound in 1 year for surveillance. - The findings and recommendations were discussed withthe patient and their family. Attending Participation: I personally performed the entire procedure. Electronically signed by Adarsh Tuttle MD Adarsh Tuttle MD 01/13/2019 2:01:19 PM This document was signed electronically. Number of Addenda: 0 Note Initiated On: 01/13/2019 1:05 PM Adarsh Tuttle MD ENDOSCOPY PROCEDURES Final Re sult documented in this encounter Visit Diagnoses Diagnosis Abnormal CT scan Other nonspecific (abnormal) findings on radiological and other examinations of body structure documented in this encounter Administered Medications Inactive Administered Medications - up to 3 most recent administrations Medication Order MAR Action Action Date Dose Rate Site Lactated Ringer's (LR) infusion 30 mL/hr, intravenous, Continuous, Starting on Wed01/13/19 at 1345, Pre-Procedure (GI) New Bag 01/13/2019 1:12 PM CDT 30 mL/hr 30 mL/hr sodium chloride 0.9% flush 0.5-20 mL 0.5-20 mL, intra-catheter, Every 8 hours scheduled, First dose on Wed01/13/19 at 1400, Pre-Procedure (GI), Flush volume based on line type and size. sodium chloride 0.9% flush 0.5-20 mL 0.5-20 mL, intra-catheter, As needed, line care, Starting on Wed01/13/19 at 1308, Pre-Procedure (GI), Flush volume based on line type and size. Flush before and after each use. sodium chloride 0.9% infusion 30 mL/hr, intravenous, Continuous, Starting on Wed01/13/19 at 1345, Pre-Procedure (GI), If chronic renal disease or requested by anesthesia documented in this encounter Discontinued Medications Medication Sig Discontinue Reason Start Date End Da te multivitamin tablet,chewable Take by mouth daily 01/13/2019 documented as of this encounter Historical Medications * This list may reflect changes made after this encounter. multivitamin tablet,chewable Take by mouth daily 01/13/2019 added in this encounter Active and Recently Administered Medications Times are shown in CDT. Scheduled Medication Order 01/11/2019 01/12/2019 01/13/2019 sodium chloride 0.9% flush 0.5-20 mL 0.5-20 mL, intra-catheter, Every 8 hours scheduled, First dose on Wed01/13/19 at 1400, Pre-Procedure (GI), Flush volume based on line type and size. 1400 (Due) Continuous Medication Order 01/11/2019 01/12/2019 01/13/2019 Lactated Ringer's (LR) infusion 30 mL/hr, intravenous, Continuous, Starting on Wed01/13/19 at 1345, Pre-Procedure (GI) 1312 (New Bag - Prov ider: Lani Medeiros RN)1359 (Anesthesia Volume Adjustment - Provider: Bjorn Cantu CRNA)1425 (Stopped - Provider: Yanelis Aaron RN) sodium chloride 0.9% infusion 30 mL/hr, intravenous, Continuous, Starting on Wed01/13/19 at 1345, Pre-Procedure (GI), If chronic renal disease or requested by anesthesia 1345 (Due) PRN Medication Order 01/11/2019 01/12/2019 01/13/2019 sodium chloride 0.9% flush 0.5-20 mL 0.5-20 mL, intra-catheter, As needed, line care, Starting on Wed01/13/19 at 1308, Pre-Procedure (GI), Flush volume based on line type and size. Flush before and after each use. documented in this encounter Orders Medications Ordered That Anthony ht Not Have Been Administered Count Last Ordered Date First Ordered Date sodium chloride 0.9% flush 0.5-20 mL 2 12/17 sodium chloride 0.9% infusion 1 01/13/2019 documented in this encounter Care Teams Bar Welder Relationship Specialty Start Date End Date Unknown, Notinfile PCP - General 01/13/19 01/21/19 Luann Lawrence NP Nurse Practitioner Nurse Practitioner 01/06/19 documented as of this encounter
--- OUTSIDE RECORDS SUMMARY | 2024-10-04 03:07 | XMS_ITS | Encounter Summary ---
Author Organization [facility] Address [address] [place] [address] Phone Care Team Providers Care Clinical Quality Analyst Name Role Phone Luann Lawrence COMPUTER SCIENCE INSTRUCTOR Unavailable [phone] Barbra Goddard Primary Care Pr ovider Encounter Details Date Type Department Care Team (Late st Contact Info) Description 02/10/2019 Orders Only [facility] Physicians [facility] Oncology [address] [place] [phone] Sebastien Martinez, [address] [address] Social History Tobacco Use Types Packs/Day Years Used Date Smoking Tobacco: Former Cigarettes 1 2 Smokeless Tobacco: Never Alcohol Use Standard Drinks/Week Comments Yes 6 (1 standard drink = 0.6 oz pur e alcohol) Comments Unknown Sex and Gender Information Value Date Recorded Sex Assigned at Not on file Legal Sex Female 2:22 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
--- OUTSIDE RECORDS SUMMARY | 2024-10-04 03:07 | XMS_ITS | Encounter Summary ---
Author Organization [facility] Healthcare Address [address] [place] [address] Care Team Providers Care Baked And Graphite Inspector Name Role Phone Unavailable Primary Care Provider Unavailabl e Reason for Visit * Diagnostic Imaging (Routine) - Closed Specialty Diagnoses / Procedures Referred By Contac t Referred To Contact Procedures Breast Imaging Screening Outside Reference Miscellaneous, Not In File Referral ID Status Reason Start Date Expiration Date Visits Re quested Visits Authorized [id number] Closed 03/30/2023 04/28/2024 1 1 Encounter Details Date Type Department Care Team (Late st Contact Info) Description 08/31/2018 Ancillary Procedure [facility] - Imaging [phone] Social History Tobacco Use Types Packs/Day Years Used Date Smoking Tobacco: Never Assessed Comments Unknown Sex and Gender Information Value Date Recorded Sex Assigned at Not on file 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:22 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 Gender Identity Female 06/07/2020 8:39 AM CDT Sexual Orientation Not on file documented as of this encounter Plan of Treatment Not on file documented as of this encounter Procedures Procedure Name Priority Date/Time Associated Diagnosis Comments BREAST IMAGING MG SCREENING OUTSIDE REFERENCE Routine 08/31/2018 12:00 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 documented in this encounter Results * Breast Imaging Screening Outside Reference (08/31/2018 12:00 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) Narrative RAD_PACS_OUTSIDE_FILM_[facility] - 03/30/2023 9:29 AM CDT This order has been auto-finalized and does not contain a result. us Not In File Miscellaneous IMG MAMMO PROCEDURES F inal Result RAD_PACS_OUTSIDE_FILM_[facility] documented in this encounter Visit Diagnoses Not on filedocumented in this encounter
--- OUTSIDE RECORDS SUMMARY | 2024-10-04 03:07 | XMS_ITS | Encounter Summary ---
Author Organization [facility] Address [address] [address] Care Team Providers Care Customer Experience Associate Name Role Phone Unknown, Sue Primary Care Provider Unavail able Luann Lawrence NP Unavailable [phone] Barbra Goddard Primary Care Pr ovider Unknown, Sue Primary Care Provider Unavail able Barbra Goddard Primary Care Pr ovider Adarsh Tuttle MD Unavailable [phone] Sebastien Martinez DO Unavailable [phone] Guru Winters DO Unavailable [phone] Gato Abrams MD Unavailable [phone] Elizabeth Borrego Primary Care Provider [phone] Barbra Goddard Primary Care Pr ovider Elizabeth Borrego Primary Care Provider [phone] Encounter Details Date Type Department Care Team (Late st Contact Info) Description 08/31/2018 Orders Only [facility] [place] [facility] [address] [place] [address] Scanning, Provider Social History Tobacco Use Types Packs/Day Years Used Date Smoking Tobacco: Never Assessed PHQ-2 Answer Date Recorded PHQ-2 Total Score (If total score is 3 or more points, staff should administer the PHQ-9) 0 10/01/2020 Comments Unknown Sex and Gender Information Value Date Recorded Sex Assigned at Not on file Legal Sex Female 2:22 AM LICENSED PROSTHETIST/ORTHOTIST Gender Identity Female 06/07/2020 8:39 AM CDT Sexual Orientation Not on file documented as of this encounter Plan of Treatment Not on file documented as of this encounter Procedures Procedure Name Priority Date/Time Associated Diagnosis Comments SCAN - RADIOLOGY/IMAGING 08/31/2018 documented in this encounter Results * SCAN - RADIOLOGY/IMAGING (08/31/2018) Anatomical Region Laterality Modality Other us Provider [...] CDT COVID19 08/07/2020 08/07/2020 08/21/2020 3:06 AM LICENSED PROSTHETIST/ORTHOTIST COVID: Recovered Comment:Added based on recent COVID infection. 08/21/2020 08/23/2020 12/19/2020 3:[address] documented as of this encounter Care Teams Customer Experience Associate Relationship Specialty Start Date End Date Unknown, Notinfile PCP - General 01/05/19 01/09/19 Barbra Goddard PA PCP - General Physician Spinning Frame Cleaner 01/10/19 01/12/19 Unknown, Notinfile PCP - General 01/13/19 01/21/19 Barbra Goddard PA PCP - General Physician Spinning Frame Cleaner 01/22/19 12/05/19 Elizabeth Borrego PA [address] [place] [address] PCP - General Internal Medicine 12/06/19 02/12/20 Barbra Goddard PA PCP - General Physician Spinning Frame Cleaner 02/13/20 03/24/20 Elizabeth Borrego PA [address] [place] [address] PCP - General Internal Medicine 03/25/20 09/27/23 Luann Lawrence NP Nurse Practitioner Nurse Practitioner 01/06/19 Adarsh Tuttle MD [address] [facility] [address] [place] [address] Consulting Physician Gastroenterology 02/22/19 Sebastien Martinez DO [address] [place] [id number] Medical Oncologist/Hematologis t Hematology and Oncology 02/22/19 Guru Winters DO [address] [place] [id number] Consulting Physician Gastroenterology 02/22/19 Gato Abrams MD [address] [place] [address] [id number] Surgeon Surgical Oncology 09/07/19 documented as of this encounter
--- OUTSIDE RECORDS SUMMARY | 2024-10-04 03:07 | XMS_ITS | Encounter Summary ---
Author Organization [facility] Address [address] [facility] [address] [place] [address] Phone Care Team Providers Care Child Care Centre Manager Name Role Phone Luann Lawrence PRINTER SLOTTER HELPER Unavailable [phone] Barbra Goddard Primary Care Pr ovider Reason for Referral * Consultation (Routine) - Closed Specialty Diagnoses / Procedures Referred By Clemencia mendez Referred To Contact General Surgery Diagnoses Malignant carcinoid tumor of stomach (HCC) Vick Li DO Phone: tel: fax: Javier Meza MD [address] [facility] [phone] [place] [address] Phone: tel: fax: Referral ID Status Reason Start Date Expiration Date V isits Requested Visits Authorized [id number] Closed Specialty Services Required 02/10/2019 08/21/2020 99 99 Question Answer Please select the performing region: [facility] (All Locations) [[id number]] To provider: JAVIER MEZA [[id number]] # of visits: 1 Comments Consult for PNET. * Diagnostic Imaging (Routine) - Closed Specialty Diagnoses / Procedures Referred By Contjimmy mendez Referred To Contact Radiology Diagnoses Malignant carcinoid tumor of stomach (HCC) Procedures MRI Abdomen Pancreas W WO Contrast Vick Li DO Phone: tel: fax: [facility] [address] [place] [address] Referral ID Status Reason Start Date Expiration Date Visits Re quested Visits Authorized [id number] Closed 02/10/2019 08/21/2020 1 1 Reason for Visit * Reason Comments Follow-up * Consultation (Routine) - Closed Specialty Diagnoses / Procedures Referred By Contjimmy t Referred To Contact Oncology Diagnoses Neuroendocrine cancer (HCC) Malignant carcinoid tumor of stomach (HCC) Guru Winters DO Phone: tel: fax: [facility] [address] [facility] [place] [address] [place] [address] Phone: tel: fax: Referral ID Status Reason Start Date Expiration Date V isits Requested Visits Authorized [id number] Closed Specialty Services Required 01/04/2019 10/17/2019 99 99 Encounter Details Date Type Department Care Team (Late st Contact Info) Description 02/10/2019 9:15 AM CDT Office Visit [facility] [address] [facility] [address] [place] [id number] Vick Li DO [address] [place] [id number] 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) Social History Tobacco Use Types Packs/Day Years Used Date Smoking Tobacco: Former Cigarettes 1 2 Smokeless Tobacco: Never Alcohol Use Standard Drinks/Week Comments Yes 6 (1 standard drink = 0.6 oz pur e alcohol) Comments Unknown Sex and Gender Information Value Date Recorded Sex Assigned at Not on file Legal Sex Female 2:22 AM STAFF EDUCATOR Gender Identity Female 06/07/2020 8:39 AM CDT Sexual Orientation Not on file 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 female. Referring Physician: Primary Care Provider: NBA Ward Assessment/Plan 1. 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 Recommendations: 1. I had a long discussion with the patient and her daughters regarding the results of the PET CT scan using this specialized neuroendocrine radiotracer. 2. I would like to refer her to Dr. Javier meza in the Department of Surgical Oncology at [facility] for possible surgical intervention with regards to this lesion at the head of the pancreas and any further intervention regarding the carcinoid tumors of the stomach. 3. In addition, I will have her undergo an MRI of the pancreas with without contrast at [facility] for anatomical assessment of this area noted on PET- CT scan. CT scan of the abdomen and pelvis performed last month at a local hospital did not show any abnormalities involving the pancreas. 4. In addition, I will assess functional status of the pancreatic neuroendocrine tumor by obtainingvarious biochemical testing that would include gastrin, insulin, VIP. More than likely if this turns out to be PNET then it is a non functional tumor. 5. Tentatively, I will see the patient back at the end of February but this may change based on the surgical oncology recommendations. 6. In addition, I did bring up possibility of hereditary cancer syndrome such as MEN. This will be further explored after surgical intervention and laboratory testing. 7. The patient received the news better than expected but the daughters were visibly upset. Patient Active Problem List Diagnosis ??? Malignant carcinoid tumor of stomach (CMS/HCC) Diagnoses and all orders for this visit: Malignant carcinoid tumor of stomach (CMS/HCC) (Primary) - Clinic Appointment Request Follow up; VICK LI; Clinic Appointment Location: [facility] - MRI Abdomen Pancreas W WO Contrast; Future - Vasoactive intestinal peptide (VIP); Future - Glucagon; Future - Gastrin; Future - Insulin, total; Future - Clinic Appointment Request Follow up; VICK LI; Clinic Appointment Location: [facility]; Future - Ambulatory referral to General Surgery; Future Subjective Interval History: 1. Stage I [...] then referred to Dr. Tuttle at [facility] for EUS evaluation. Thiswas performed on January [...] Twenty-four urine collection for 5-H IAA is pending. 12. Last visit, I recommended a PET CT scan with gallium donatate radiotracer for more accurate evaluation of her stage in any residual disease due to the elevated chromogranin A level. 13. Patient returns for the results of the PET-CT scan and further recommendations. Interval Notes: I have reviewed: allergies, [...] this encounter: BSA: 1.77 meters squared BP 121/77 (BP Location: Left arm) Pulse 56 Ht 162.6 cm (5' 4 ) Wt 69.1 kg (152 lb 6.4 oz) SpO2 98% BMI 26.16 kg/m?? Physical Exam Constitutional: She is oriented [...] behavior is normal. Performance Status: Asymptomatic Results: PET-CT scan with gallium donatate radiotracer uptake shows an abnormal focus of hypermetabolic activity involving the head of the pancreas measuring 1.5 cm. No other sites of suspicious hypermetabolic areas noted. documented in this encounter Plan of Treatment Scheduled Referrals Name Type Priority Associated Diagnoses Order Schedule Ambulatory referral to General Surgery Outpatient Referral Routine Malignant carcinoid tumor of stomach (CMS/HCC) Expected: 02/17/2019 (Approximate), Expires: 08/12/2019 documented as of this encounter Results * [...] it. Electronically signed by: Yandy Lackey M.D. Vick Li DO [facility] MRI PROCEDURES Final Res ult documented in this encounter Visit Diagnoses Diagnosis Malignant carcinoid tumor of stomach (HCC)- Primary Malignant carcinoid tumor of the stomach Malignant carcinoid tumor of stomach (HCC) Malignant carcinoid tumor of the stomach documented in this encounter Historical Medications * This list may reflect changes made after this encounter. hydroxychloroqui ne (PLAQUENIL) 200 mg tabletIndication s:Arthritis Take 1 tablet (200 mg total) by mouth economic historian before breakfast 01/30/2019 3 added in this encounter Orders Lab Orders Without Results Count Last Ordered D ate First Ordered Date GASTRIN 1 02/10/2019 GLUCAGON 1 02/10/2019 INSULIN, TOTAL 1 02/10/2019 VASOACTIVE INTESTINAL PEPTIDE (VIP) 1 02/10 Appointment Requests Count Last Ordered Date Fi rst Ordered Date ONCBCN CLINIC APPOINTMENT REQUEST 2 019 02/10/2019 documented in this encounter Care Teams Child Care Centre Manager Relationship Specialty Start Date End Date Barbra Goddard PA PCP - General Physician Regional Planner 01/22/19 12/05/19 Luann Lawrence NP Nurse Practitioner Nurse Practitioner 01/06/19 documented as of this encounter
--- OUTSIDE RECORDS SUMMARY | 2024-10-04 03:07 | XMS_ITS | Encounter Summary ---
Author Organization [facility] Address [address] [facility] [address] [place] [address] Phone Care Team Providers Care Human Resource Analyst Name Role Phone MelindaLuann oh COACH DRIVER Unavailable [phone] Barbra Goddard Primary Care Pr ovider Encounter Details Date Type Department Care Team (Late st Contact Info) Description 02/15/2019 Telephone [facility] Surgery [address] [place] [address] [place] [address] Gato Abrams MD [address] [facility] [id number] [place] [address] Social History Tobacco Use Types Packs/Day Years Used Date Smoking Tobacco: Former Cigarettes 1 2 Smokeless Tobacco: Never Alcohol Use Standard Drinks/Week Comments Yes 6 (1 standard drink = 0.6 oz pur e alcohol) Comments Unknown Sex and Gender Information Value Date Recorded Sex Assigned at Not on file Legal Sex Female 2:22 AM EMOTIONAL DISABILITIES TEACHER Gender Identity Female 06/07/2020 8:39 AM CDT Sexual Orientation Not on file 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 Abrams. documented in this encounter Plan of Treatment Not on file documented as of this encounter Visit Diagnoses Not on filedocumented in this encounter Care Teams Human Resource Analyst Relationship Specialty Start Date End Date Barbra Goddard PA PCP - General Physician Embroidery Worker 01/22/19 12/05/19 Luann Lawrence NP Nurse Practitioner Nurse Practitioner 01/06/19 documented as of this encounter
--- OUTSIDE RECORDS SUMMARY | 2024-10-04 03:07 | XMS_ITS | Encounter Summary ---
Author Organization [facility] Address [address] [place] [address] Phone Care Team Providers Care Automation Consultant Name Role Phone Luann Lawrence BUSINESS DATABASE ANALYST Unavailable [phone] Barbra Goddard Primary Care Pr ovider Reason for Visit * Reason Comments Consult * Consultation (Routine) - Closed Specialty Diagnoses / Procedures Referred By Contac t Referred To Contact Oncology Diagnoses Neuroendocrine cancer (HCC) Malignant carcinoid tumor of stomach (HCC) Guru Winters DO Phone: tel: fax: [facility] Oncology [address] [place] [address] Phone: tel: fax: Referral ID Status Reason Start Date Expiration Date V isits Requested Visits Authorized [id number] Closed Specialty Services Required 01/04/2019 10/17/2019 99 99 Encounter Details Date Type Department Care Team (Latest Contact Info) Description 01/10/2019 1:30 PM CDT Office Visit [facility] Oncology [address] [place] [address] Vick Li DO [address] [place] [id number] Neuroendocrine cancer (CMS/HCC); Malignant carcinoid tumor of stomach (CMS/HCC) Social History Tobacco Use Types Packs/Day Years Used Date Smoking Tobacco: Former Cigarettes 1 2 Smokeless Tobacco: Never Alcohol Use Standard Drinks/Week Comments Yes 6 (1 standard drink = 0.6 oz pur e alcohol) Comments Unknown Sex and Gender Information Value Date Recorded Sex Assigned at Not on file Legal Sex Female 2:22 AM MILK TREATER Gender Identity Female 06/07/2020 8:39 AM CDT Sexual Orientation Not on file 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 Not on mikie e documented as of this encounter Last Filed Vital Signs Vital Sign Reading Time Taken Comments Blood Pressure 137/58 01/10/2019 1:20 PM CDT Pulse 55 01/10/2019 1:20 PM CDT Temperature 36.7 ??C (98 ??F) 01/10/2019 1:20 PM CDT Respiratory Rate 20 01/10/2019 1:20 PM CDT Oxygen Saturation 96% 01/10/2019 1:20 PM CDT Inhaled Oxygen Concentration - - Weight 67.6 kg (149 lb) 01/10/2019 1:20 PM CDT Height 157.5 cm (5' 2 ) 01/10/2019 1:20 PM CDT Body Mass Index 27.25 01/10/2019 1:20 PM CDT documented in this encounter Progress Notes * Vick Li DO - 01/10/2019 1:30 PM CDT Patient ID: Fabiola Gibson is a 53 y.o. female. Referring Physician: Guru Winters, [address] [place] [address] Primary Care Provider: NBA Ward Assessment/Plan Stage I carcinoid tumor of the body of the stomach. 1. I agree with endoscopic ultrasound evaluation of the stomach, small bowel and pancreas to finalize staging. 2. She will undergo biochemical assessment for systemic carcinoid with 24 urine collection for 5-HIAA, fasting serotonin level and chromogranin A level. 3. I will also have the pathology department at [facility] review the biopsy slides on the behest of the patient. 4. I will see the patient back here in 10 days for further decision making and results information. 5. I did inform the patient that she is not a candidate for any medical therapy since this is earlystage carcinoid tumor of the stomach. 6. My main concern is to maximize local therapy at this time whether she needs further endoscopic mucosal resection versus a partial gastrectomy versus continued surveillance endoscopically. 7. I answered all their questions to her satisfaction and the family's satisfaction. Patient Active Problem List Diagnosis ??? Malignant carcinoid tumor of stomach (CMS/HCC) Diagnoses and all orders for this visit: Neuroendocrine cancer (CMS/HCC) - Ambulatory referral to Oncology - 5 HIAA, urine, 24 hour; Future - Chromogranin A; Future - Serotonin serum; Future - CBC with auto differential; Future - Clinic Appointment Request Follow up; VICK LI MD; Clinic Appointment Location: [facility]; [facility] Malignant carcinoid tumor of stomach (CMS/HCC) - Ambulatory referral to Oncology - 5 HIAA, urine, 24 hour; Future - Chromogranin A; Future - Serotonin serum; Future - CBC with auto differential; Future - Clinic Appointment Request Follow up; VICK LI MD; Clinic Appointment Location: [facility]; [facility] Subjective History of Present Illness: Ms. Gibson, 53-year-old female with history of underlying rheumatoid arthritis seronegative, presents to my office for oncological evaluation of newly diagnosed carcinoid tumor of the stomach. Her primary care physician, Dr. Huizar refer the patient to Dr. Witners for GI evaluation regarding anemia and to undergo routine surveillance colonoscopy. Dr. Winters performed these procedures on December 26. He noted 3 distinct polyps within the stomach and performed polypectomy on each of these lesions. Subsequently, surgical pathology report showed that the biopsies of these polyps were consistent with a well-differentiated neuroendocrine tumor consistent with carcinoid tumor. Patient was informed of the diagnosis and she became upset and highly concerned. Patient has been referred to Dr. Syd PATEL for EUS evaluation of these polyps. She has been referred to me for further evaluation. She denies any carcinoid syndrome symptoms such as flushing, hot flashes, wheezing, diarrhea or cramping abdominal pain. Fact she occasionally has some constipation. She denies any if he but did haveintentional weight loss of 30 lb due to dieting with weight watchers. She denies any melena or hematochezia. She was diagnosed with mild anemia in the past. Dr. Winters noted on endoscopy that she had 3 pedunculated polyps involving the body of the stomach and of the antrum. All of these polyps were removed. All 3 of the gastric polyps involving the body showed well-differentiated neuroendocrine tumor. There was 1 polyp that seem to have carcinoid invading the submucosa. Past Medical History: Diagnosis Date ??? Depression ??? Hyperlipidemia ??? Hypertension ??? Rheumatoid arthritis (CMS/HCC) ??? Urinary tract infection Past Surgical History: Procedure Laterality Date ??? SECTION ??? COLONOSCOPY ??? ESOPHAGOGASTRODUODENOSCOPY ??? TUBAL LIGATION Family History Problem Relation Age of Onset ??? Ovarian cancer Father's Sister ??? Colon cancer Father's Sister ??? No Known Problems Mother ??? No Known Problems Father ??? No Known Problems Sister ??? No Known Problems Brother Family Status Relation Name Status ??? Pat Aunt ??? Pat Uncle ??? Mother ??? Father ??? Sister Alive ??? Brother Social History Occupational History ??? 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 Smoking status: Former Smoker Packs/day: 1.00 Years: 2.00 Pack years: 2.00 ??? Smokeless tobacco: Never Used Substance and Sexual Activity ??? Alcohol use: Yes Alcohol/week: 3.6 oz Types: 6 Cans of beer per week ??? Drug use: Never ??? Sexual activity: Defer No Known Allergies Current Outpatient Medications Medication Sig Dispense Refill ??? buPROPion XL (WELLBUTRIN XL) 300 mg 24 hr tablet Take 300 mg by mouth ??? cholecalciferol (VITAMIN D3) 2,000 unit capsule 3,000 Units ??? ciprofloxacin (CIPRO) 500 mg tablet Take 500 mg by mouth every 12 (twelve) hours 0 ??? escitalopram (LEXAPRO) 10 mg tablet Take 10 mg by mouth daily ??? hydroxychloroquine (PLAQUENIL) 200 mg tablet Take 400 mg by mouth daily ??? losartan-hydroCHLOROthiazide (HYZAAR) 50-12.5 mg per tablet Take 1 tablet by mouth daily ??? metoprolol XL (TOPROL XL) 100 mg 24 hr tablet Take 50 mg by mouth ??? multivit with min-folic acid 200 mcg tablet,chewable Take by mouth ??? pravastatin (PRAVACHOL) 40 mg tablet No current facility-administered medications for this visit. I have reviewed: allergies, current medications, past family history, past medical history, past social history, past surgical history and problem list HPI Review of Systems Constitutional: Positive for weight change (Intentional weight loss of 30 lb over the past year). Negative for appetite change, chills and diaphoresis. HENT: Negative. Eyes: Negative. Respiratory: Negative. Negative for cough, shortness of breath and wheezing. Cardiovascular: Negative. Negative for leg swelling and palpitations. Gastrointestinal: Positive for constipation ( occasionally). Negative for diarrhea. Endocrine: Negative. Negative for hot flashes. Genitourinary: Positive for frequency. Musculoskeletal: Positive for arthralgias ( involving the hands, ankles and occasionally the knees). Skin: Negative. Neurological: Negative. Hematological: Negative. Psychiatric/Behavioral: Positive for depression. Pain: Positive for: chronic pain. Objective Physical Exam: Vital Signs for this encounter: BSA: 1.72 meters squared BP 137/58 (BP Location: Right arm) Pulse 55 Temp 36.7 ??C (98 ??F) (Oral) Resp 20 Ht 157.5 cm (5' 2 ) Wt 67.6 kg (149 lb) SpO2 96% BMI 27.25 kg/m?? Physical Exam Constitutional: She is oriented [...] range of motion. Neck supple. Cardiovascular: Normal rate, regular rhythm, normal heart sounds and intact distal pulses. Pulmonary/Chest: Effort normal and breath sounds normal. Abdominal: Soft. Bowel sounds are normal. Musculoskeletal: Normal range of motion. Neurological: She is alert and oriented to person, place, and time. Skin: Skin is warm and dry. Psychiatric: She has a normal mood and affect. Her behavior is normal. Performance Status: Asymptomatic Results: CT scan of the chest, abdomen pelvis done last week shows no evidence of metastatic disease. There are few granulomas noted in the lungs which are benign in appearance. documented in this encounter Plan of Treatment Not on file documented as of this encounter Visit Diagnoses Diagnosis Neuroendocrine cancer (HCC) Other malignant neoplasm of unspecified site Malignant carcinoid tumor of stomach (HCC) Malignant carcinoid tumor of the stomach documented in this encounter Historical Medications * This list may reflect changes made after this encounter. cholecalciferol (VITAMIN D-3) 1,000 unit capsuleIndicatio ns:Vitamin D Deficiency Take 2 capsules (2,000 Units total) by mouth analytical engineer before breakfast multivit with min-folic acid 200 mcg tablet,chewable Take by mouth 9 losartan-hydroCH LOROthiazide (HYZAAR) 50-12.5 mg per tabletIndication s:hypertension Take 1 tablet by mouth every morning 0 hydroxychloroqui ne (PLAQUENIL) 200 mg tablet Take 400 mg by mouth daily 9 escitalopram (LEXAPRO) 10 mg tabletIndication s:Anxiety with Depression Take 10 mg by mouth every morning 0 buPROPion XL (WELLBUTRIN XL) 300 mg 24 hr tablet Take 150 mg by mouth daily 01/05/2018 9 ciprofloxacin (CIPRO) 500 mg tablet Take 500 mg by mouth every 12 (twelve) hours 0 01/06/2019 9 metoprolol XL (TOPROL XL) 100 mg 24 hr tablet Take 50 mg by mouth 02/07/2017 9 pravastatin (PRAVACHOL) 40 mg tabletIndication s:hyperlipidemia Take 40 mg by mouth every morning 11/15/2018 0 added in this encounter Orders Lab Orders Without Results Count Last Ordered D ate First Ordered Date 5 HIAA, URINE, QUANTITATIVE, 24 HOUR 1 12/17 CBC WITH AUTO DIFFERENTIAL 1 01/10/2019 CHROMOGRANIN A 1 01/10/2019 SEROTONIN 1 01/10/2019 Outpatient Referral Count Last Ordered Date Fir st Ordered Date AMB REFERRAL TO ONCOLOGY 1 01/10/2019 Appointment Requests Count Last Ordered Date Fi rst Ordered Date ONCBCN CLINIC APPOINTMENT REQUEST 1 019 documented in this encounter Care Teams Automation Consultant Relationship Specialty Start Date End Date Barbra Goddard PA PCP - General Physician Assistant Store Manager 01/10/19 01/12/19 Luann Lawrence NP Nurse Practitioner Nurse Practitioner 01/06/19 documented as of this encounter
--- OUTSIDE RECORDS SUMMARY | 2024-10-04 03:07 | XMS_ITS | Encounter Summary ---
Author Organization [facility] Facility Care Team Providers Care Machine Operations Supervisor Name Role Phone Luann Lawrence BURRER OPERATOR Unavailable [phone] Unknown, Notinfile Primary Care Provider Unavail able Encounter Details Date Type Department Care Team (Latest Contact Info) Description 01/13/2019 Travel Social History Tobacco Use Types Packs/Day Years Used Date Smoking Tobacco: Former Cigarettes 1 2 Smokeless Tobacco: Never Alcohol Use Standard Drinks/Week Comments Yes 6 (1 standard drink = 0.6 oz pur e alcohol) Comments Unknown Sex and Gender Information Value Date Recorded Sex Assigned at Not on file Legal Sex Female 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
--- OUTSIDE RECORDS SUMMARY | 2024-10-04 03:07 | XMS_ITS | Encounter Summary ---
Author Organization [facility] Address [address] [place] [address] Care Team Providers Care Beer Maker Name Role Phone MelindaLuann oh CARDIAC CATH RN Unavailable [phone] Unknown, Notinfile Primary Care Provider Unavail able Encounter Details Date Type Department Care Team (Latest Contact Info) Description 01/13/2019 12:00 PM CDT - 01/13/2019 12:30 PM CDT Surgery [facility] [address] [place] [id number] Adarsh Tuttle MD [address] [facility] [address] [address] [place] [address] ESOPHAGOGASTRODUODENOSCOPY ULTRASOUND GUIDE LIMITED Surgery Details Date/Time Status Location OR Service Patient Class Case Class Case Type Trauma Case? 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 Not on file Not on mikie e documented as of this encounter Medications at Time of Discharge cholecalciferol (VITAMIN D-3) 1,000 unit capsuleIndicatio ns:Vitamin D Deficiency Take 2 capsules (2,000 Units total) by mouth retail marketing specialist before breakfast buPROPion XL (WELLBUTRIN XL) [...] 01/13/2019 1:05 PM Admit Type: Outpatient Room: [facility] Date of : 1965 Instrument Name: [id number] Gender: Female Note Status: Finalized Procedure: Upper [...] Comment:Gastric neuro endocr ine tumor Narrative PATHOLOGY [facility] - 01/16/2019 3:51 PM [address]T [address] ??[address] Tele: ?? Kinga Carmona MD - Administrative Receptionist ?? Sha Briceno - Saw Repairer SURGICAL PATHOLOGY REPORT Patient Name: ??JUANJO GIBSON Address: ??[address] [place] [address] Gender: ??F : ??1965 (Age: 53) Service: ??Gastro Location: ??G48, ?? Hospital #: ??[id number] Patient Type: ?? Same Day Surgery Accession #: ? [id number] Taken: ? 01/13/2019 Received ? 01/13/2019 Reported: ? 01/16/2019 Physician(s): ? Dr. Adarsh Tuttle M.D. Barbra Goddard DIAGNOSIS: Stomach, gastric nodule-biopsy: ? - Repair - Foveolar hyperplasia - Intestinal metaplasia - Chronic gastritis - Negative for H. pylori - Rare atypical cellular cluster of undetermined clinical significance, see microscopic esb/01/16/2019 10:21 Examining Pathologist: Raghavendra Saxena M.D. Report [...] filtered and submitted entirely in cassette A1. [facility]/01/13/2019 16:50 ? [facility] MICROSCOPIC DESCRIPTION: A multitude of changes are [...] with good control. Clerical Data Follows A; 37135, 63603, 85494(2) REPORT IMAGES AND/OR SCANNED DOCUMENTS ONLY VIEWABLE IN PDF FORMAT The immunohistochemical test(s) cited in this report, if any, was developed and its performance characteristics determined by [facility]. ??It has not been cleared or approved by the U.S. Food and Drug Administration. ??The FDA has determined that such clearance or approval is not necessary. ??This test is used for clinical purposes. ??It should not be regarded as investigational or for research. ??[facility] is certified under the Clinical [...] Adarsh Tuttle MD LAB PATHOLOGY ORDERABLES Devika dennis Result PATHOLOGY [facility] Laboratory Receiving [address] [place] [address] * EUS (01/13/2019 1:05 PM CDT) Anatomical Region Laterality Modality Other Narrative Procedure Note Adarsh Tuttle MD - 01/13/2019 1:05 PM CDT ENDOSCOPY LAB Patient Name: Juanjo Gibson Procedure Date: 01/13/2019 1:05 PM Admit Type: Outpatient Room: [facility] Date of : 1965 Instrument Name:[id number] Gender: Female Note Status: Finalized Procedure: Upper [...] 0 Note Initiated On: 01/13/2019 1:05 PM us Adarsh Tuttle MD ENDOSCOPY PROCEDURES Final [...] 1312 (New Bag - Prov ider: Lani Medeiros, BYRON)1359 (Anesthesia Volume Adjustment - Provider: Bjorn Cantu [...] 01/13/2019 documented in this encounter Care Teams Beer Maker Relationship Specialty Start Date End Date Unknown, Notinfile PCP - General 01/13/19 01/21/19 Luann Lawrence NP Nurse Practitioner Nurse Practitioner 01/06/19 documented as of this encounter
--- OUTSIDE RECORDS SUMMARY | 2024-10-04 03:07 | XMS_ITS | Encounter Summary ---
Author Organization [facility] Address [address] [place] [address] Phone Care Team Providers Care Security Systems Technician Name Role Phone MelindaLuann Aditya PULLEY WORKER Unavailable [phone] Unknown, Notinfile Primary Care Provider Unavail able Reason for Visit * Reason Comments Follow-up * Consultation (Routine) - Closed Specialty Diagnoses / Procedures Referred By Clemencia mendez Referred To Contact Oncology Diagnoses Neuroendocrine cancer (HCC) Malignant carcinoid tumor of stomach (HCC) Guru Winters DO Phone: tel: fax: [facility] [address] [place] [address] [place] [address] Phone: tel: fax: Referral ID Status Reason Start Date Expiration Date V isits Requested Visits Authorized [id number] Closed Specialty Services Required 01/04/2019 10/17/2019 99 99 Encounter Details Date Type Department Care Team (Late st Contact Info) Description 01/20/2019 8:45 AM CDT Office Visit [facility] Oncology [address] [place] [address] Vick Li DO [address] [place] [id number] 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); Neuroendocrine cancer (CMS/HCC) Social History Tobacco Use Types Packs/Day Years Used Date Smoking Tobacco: Former Cigarettes 1 2 Smokeless Tobacco: Never Alcohol Use Standard Drinks/Week Comments Yes 6 (1 standard drink = 0.6 oz pur e alcohol) Comments Unknown Sex and Gender Information Value Date Recorded Sex Assigned at Not on file 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 Gender Identity Female 06/07/2020 8:39 AM CDT Sexual Orientation Not on file 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 female. 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 1. Based on recent endoscopic ultrasound EGD, no residual disease noted and no regional adenopathy noted. 2. However, she does have an elevated chromogranin A level which is somewhat concerning. 3. In order to completely stage her, I feel that she would require a special PET-CT scan using gallium Donatate radiotracer uptake that is specific for somatostatin receptors of carcinoid cells. She will undergo this procedure in the next 2 weeks and I will see her back here in the office in 2 weeks. 4. In order to determine whether she would need further intervention for her early stage carcinoid tumor, I will have the pathology slides from the original biopsy reviewed by the pathologist at [facility]. 5. I will also retrieve the laboratory report from the 04/02 urine collection. 6. If the PET-CT scan and review of the pathology slides correspond to early stage disease without any residual localized disease or metastatic disease, then I would recommend surveillance versus partial gastrectomy. 7. I explained all these issues and the to specific scenarios to the patient and family. Everyone is in agreement with the current recommendations and the approach. Patient Active Problem List Diagnosis ??? Malignant carcinoid tumor of stomach (CMS/HCC) Diagnoses and all orders for this visit: Malignant carcinoid tumor of stomach (CMS/HCC) (Primary) - Clinic Appointment Request Follow up; VICK LI MD; Clinic Appointment Location: [facility] - Clinic Appointment Request Follow up; VICK LI; Clinic Appointment Location: [facility]; Future - PET GA-68 Dotatate Skull to Thigh; Future Neuroendocrine cancer (CMS/HCC) - Clinic Appointment Request Follow up; VICK LI MD; Clinic Appointment Location: [facility] Subjective Interval History: 1. Stage I carcinoid [...] was then referred to Dr. Tuttle at [facility] for EUS evaluation. Thiswas performed [...] denies any symptoms of carcinoid syndrome. 10. She returns for further discussion regarding her initial staging workup for her carcinoid tumor. Again she is doing well without any GI symptoms. Interval Notes: I have reviewed: allergies, current medications, past family history, past medical history, past social history, past surgical history and problem list HPI Review of Systems Constitutional: Negative. Positive for weight change. Negative for appetite change and chills. HENT: Negative. Eyes: Negative. Respiratory: Negative. Cardiovascular: Negative. Gastrointestinal: Negative. Endocrine: Negative. Genitourinary: Negative. Musculoskeletal: Positive for arthralgias and back pain. Skin: Negative. Neurological: Negative. Hematological: Negative. Negative for adenopathy. Does not bruise/bleed easily. Psychiatric/Behavioral: Positive for depression. The patient is nervous/anxious. Objective Physical Exam: Vital Signs for this encounter: BSA: 1.74 meters squared BP 135/83 (BP Location: Left arm) Pulse 59 Ht 162.6 cm (5' 4 ) Wt 67.3 kg (148 lb 6.4 oz) SpO2 99% BMI 25.47 kg/m?? Physical Exam Constitutional: She is oriented [...] behavior is normal. Performance Status: Asymptomatic Results: 1. Chromogranin A level is elevated 489. 2. Fasting serotonin levels less than 10. 3. Twenty-four urine collection for 5-H IAA is pending. documented in this encounter Plan of Treatment Not on file documented as of this encounter Visit Diagnoses Diagnosis Malignant carcinoid tumor of stomach (HCC)- Primary Malignant carcinoid tumor of the stomach Neuroendocrine cancer (HCC) Other malignant neoplasm of unspecified site documented in this encounter Orders Appointment Requests Count Last Ordered Date Fi rst Ordered Date ONCBCN CLINIC APPOINTMENT REQUEST 2 019 01/20/2019 documented in this encounter Care Teams Security Systems Technician Relationship Specialty Start Date End Date Unknown, Notinfile PCP - General 01/13/19 01/21/19 Luann Lawrence NP Nurse Practitioner Nurse Practitioner 01/06/19 documented as of this encounter
--- OUTSIDE RECORDS SUMMARY | 2024-10-04 03:17 | XMS_ITS | Continuity of Care Document ---
Author Organization [facility] Address [address] [place] [address] Phone Care Team Providers Care Supervisor Pre Wave Name Role Phone Redman OD, Guru Unavailable Unavailable Procedures Procedure Date Cntct Lens Hydrophilic Toric Or Prism Ba llast Medical Tax Eye Exam & Treatment Refraction Advance Directives Directive Yes / No Effective Date File Name No Information Encounters Encounter Description Practice Location Reason(s) For Visit Diagnoses Date Provider Providers Copied on Encounter [facility], [address] [place] [address] [address], [place], [place], [id number], tel:[phone] [facility] No Information Aug-0 2-201 0 Redman OD Guru. [address], [place], [place], [facility], [place]. tel:[phone] [facility], [address], [place], [place], [id number], tel:[phone] [facility] No Information 1-201 0 Redman OD Guru. [address], [place], [place], [facility], [place]. tel:[phone] Family History Family Member Type Diagnosis Age At Onset No Information Payers Payer name Insurance type Covered constitution party ID Authoriza tion(s) No Information Social History Type Description Quantity Date Captured Comments Sex Female Smoking Status No Information Chief Complaint And Reason For Visit No Information Reason For Referral Reason For Referral No Information History Of Present Illness Encounter Date Complaint History Of Prese nt Illness No Information Functional Status Date Functional Assessmen t No Information Instructions Date Instruction Additional Infor mation No Information Assessments Type Assessment Date No Information Patient Care Teams Name Effective Dates (start - stop) Status Members No Information
--- OUTSIDE RECORDS SUMMARY | 2024-10-04 03:17 | XMS_ITS | Continuity of Care Document ---
Author Organization [facility] Address [address] [place] [address] Phone Care Team Providers Care Overlock Collar Setter Name Role Phone Adarsh Tuttle MD Unavailable Unavailable Advance Directives Directive Yes / No Effective Date File Name No Information Encounters Encounter Description Practice Location Reason(s) For Visit Diagnoses Date Provider Providers Copied on Encounter [facility], [address], [place], [place], [id number], tel:[phone] [facility] No Information Marry Altamirano. [address], [facility] [address], [place], [place], [facility], [place]. [phone] [facility], [address], [place], [place], [id number], tel:[phone] [facility] Abnormal finding on imaging Marry Altamirano. [address], [address], [place], [address], [place]. [phone] Family History Family Member Type Diagnosis Age At Onset No Information Payers Payer name Insurance type Covered republican ID Authoriza tion(s) No Information Social History Type Description Quantity Date Captured Comments Alcohol Use Details Unknown Caffeine Use Details Unknown Tobacco Use Status No Information Smoking Status No Information Sex Female Chief Complaint And Reason For Visit No [...]
== END 2024-09-30 10:10 | disposition home or self-care (01) ==
LOC: ANHLAB 10:10
PROVIDERS: PCP Physician Assistant; Visit Provider Nurse Practitioner Adult Health
DX: E78.2 Mixed hyperlipidemia (principal)
CPT/HCPCS: 36415; 80061